=== PATIENT | female | born 1970 | race Caucasian/White ===

== ENCOUNTER 2017-12-15 15:09 | Observation (INO) | payer MEDICARE, MEDICAID, SELFPAY ==
[2017-12-15] VITALS (10 sets, daily range): BP systolic 99–157; BP diastolic 68–105; PULSE 60–100; RESP 12–22; TEMP 36.3–36.9; O2SAT 92–96; BMI 32.8; BMI 34.3
--- NOTE | 2017-12-15 16:09 | RAD_ITS ---
STUDY: X-RAY CHEST REASON FOR EXAM: Female, 47 years old. Cough, dyspnea TECHNIQUE: Frontal and lateral views of the chest. COMPARISON: None. FINDINGS: The lungs are expanded. Basilar atelectasis. No infiltrate. There is no demonstrated pleural abnormality. Normal size heart. Normal mediastinum and shaniqua. Normal visualized pulmonary arteries. Normal visualized aortic arch and descending thoracic aorta. Normal visualized thoracic spine. Normal visualized ribs, clavicles, and shoulders. There is no demonstrated abnormality of the visualized soft tissue structures of the upper abdomen. RAD/Chest PA and Lateral IMPRESSION: Basilar atelectasis. No infiltrate. Electronically Signed: Terry Keane DO at 17:35 EST , Service support ,
--- NOTE | 2017-12-15 16:11 | ED.VISSUMM ---
- ER Visit Summary Date of Service: 12/15/17 Chief Complaint: Cough History of Present Illness: The patient is a 47 F who has a tracheostomy due to larynx cancer. She states that she is 8 year cancer free. Patient is a non-smoker currently. She carries no history of COPD. Patient states for the past week she has had a cough. She was having sputum production but now not. she notes episodes where she mucous plugs and brings up some blood. No fevers. She saw her doctor who sent her to the hospital. Her son has influenza A diagnosed a couple days ago. She notes headache and congestion. She states her mom has similar symptoms that she does. Physical Examination: Afebrile vital signs are stable Gen: Well-nourished well-developed Head: Normocephalic atraumatic Eyes: Perrl EOMI ENT: TMs clear no rhinorrhea moist mucous membranes tracheostomy site is clean dry intact Neck: Supple no lymphadenopathy no JVD nontender CVS: Regular rate rhythm no murmurs normal S1-S2 Respiratory: No distress his lung sounds bilaterally chest nontender Abdomen: Soft nontender nondistended normal bowel sounds no masses Back: Nontender Extremity: Nontender no edema Skin: Normal color no rash Neuro: alert orientated ?3 CN II-XII intact normal strength sensation reflexes gait cerebellar Psych: Normal affect normal mood Test Results: 8. Lactic acid 0.6. She is influenza positive. Chest x-ray showed some atelectatic changes. Emergency Department Course and Treatment: Patient was deep suctioned with significant improvement. She received breathing treatments and Solu-Medrol. Patient does not have the availability at home at the current time to administer aerosols or deep suction. Both of which I think are reasonable to assist in getting her set up for home use. Unfortunately it is late at night on Monday I do not have availability. I do think given the patient's symptoms her chronic disease is reasonable to bring her in overnight. Impression: 1. Influenza A This note was generated with [employer] dictation software. It may contain incorrect words, spelling, and punctuation that were not noted in review of the chart prior to signing ED Disposition - Plan for ED Patient: Disposition: Acute Care [facility] Chief Complaint: Shortness of Breath
[2017-12-15] MEDS: Ipratropium/Albuterol Sulfate 3 ML AMPUL.NEB INHALATION (16:29)
[2017-12-15] MEDS: Albuterol 2.5 MG/3 ML VIAL.NEB. INHALATION ×2 (16:30)
[2017-12-15 16:50] LABS: Absolute Lymphocyte Count 0.71 X10^3/ul (0.83-4.51); Absolute Neutrophil Count 1.7 X10^3/uL (2.0-7.7); Basophil# 0.02 X10^3/uL; Basophil% 0.7 % (0-1); Eosinophil# 0.09 X10^3/uL; Eosinophils% 3.2 % (0-5); Hematocrit 41.9 % (37-47); Hemoglobin 13.9 g/dl (12.0-15.0); Lymphocyte # 0.71 X10^3/ul (4.0); Lymphocyte % 25.2 % (19-41); Mean Corp Hgb Conc 33.2 g/gl (32-36); Mean Corpuscular Hgb 29.9 pg (27.0-32.0); Mean Corpuscular Volume 90.1 fL (81-99); Mean Platelet Vol. 10.2 fl (6.2-12.0); Monocyte# 0.33 X10^3/uL; Monocyte% 11.7 % (0-10); Neutrophil # 1.67 X10^3/uL (2.7-7.7); Neutrophil % 59.2 % (47-70); Platelet Count 172 K/mm3 (150-450); RBC Distribution Width CV 13.7 % (11.6-14.6); RBC Distribution Width SD 45.1 fl (35.1-43.9); Red Blood Count 4.65 M/mm3 (4.2-5.4); White Blood Count 2.8 K/mm3 (4.4-11.0)
[2017-12-15 16:57] LABS: POSITIVE COUNT NO; POSITIVE DIFFERENTIAL NO; POSITIVE MORPHOLOGY NO
--- NOTE | 2017-12-15 16:59 | NURSING ---
BLUE TOP NEEDS REDRAWN. HEMOLIZED
[2017-12-15] MEDS: MethylPREDNISolone 125 MG/2 ML Vial IV (17:02)
[2017-12-15] MEDS: Acetaminophen 500 MG Tablet 1000 MG PO (17:02)
[2017-12-15 17:14] LABS: ALB/GLOB Ratio 0.9 RATIO (0.9-2.4); AST(SGOT) 27 U/L (15-37); Alanine Aminotransfer ALT/SGPT 18 U/L (12-78); Albumin, Serum 3.6 g/dL (3.4-5.0); Alkaline Phosphatase 100 U/L (45-117); Anion Gap 7 (5-15); BUN 17 mg/dL (7-18); BUN/Creat Ratio 20.7 RATIO (10-20); Calcium,Total 8.5 mg/dL (8.5-10.1); Chloride 104 mmol/L (98-107); Creatinine, Serum 0.82 mg/dL (0.55-1.02); EST Glomerular Filtration Rate 79 mL/min (>60); Est Glom Filt Rate - Afr Amer 96 mL/min (>60); Estimated Creatinine Clearance 70.16 ml/min; Globulin 3.9 g/dL (2.2-4.2); Glucose 97 mg/dL (70-110); Potassium 4.1 mmol/L (3.5-5.1); Protein, Total 7.5 g/dL (6.4-8.2); Sodium Level 140 mmol/L (136-145)
[2017-12-15 17:16] LABS: Lactic Acid 0.6 mmol/L (0.4-2.0)
[2017-12-15 18:11] LABS: Partial Thromboplast Time 28.7 Seconds (24.1-36.2); Prothrombin Time (Protime)PT. 12.4 SECONDS (11.7-14.9)
--- NOTE | 2017-12-15 22:36 | PCM.HP.STD ---
Problem List (1) Larynx cancer Status: Acute (2) HTN (hypertension) Status: Chronic (3) Influenza A Status: Acute (4) Hypothyroid Status: Acute History of Present Illness Date of Admission: 12/15/17 Chief Complaint: Influ A pneumonia The patient is a 47 year old female w/ h/o larynx cancer, hypothyroid, and HTN admitted for influenza A. She has been cough for the past few days. The intensity and frequency of her cough have increased. Nothing appeared to make it better or worse. Her cough is productive. She has worsening SOB. Her SOB is severe that it interfere with her ADLs. She went to the ED for further workup. Past Medical History Past Medical History (Chronic Problems): Chronic Problems HTN (hypertension) (Chronic) Allergies latex Allergy (Verified 12/15/17 15:13) BLISTERS Iodinated Contrast- Oral and IV Dye [Iodinated Contrast Media - IV Dye] Adverse Reaction (Verified 12/15/17 15:13) Hives morphine Adverse Reaction (Verified 12/15/17 15:13) Nausea/Vom/Diarrhea Home Medications: Ambulatory Orders Medication Instructions Recorded Esomeprazole Mag Trihydrate 40 mg PO DAILY 10/03/16 [Nexium] Hydrochlorothiazide 12.5 mg PO DAILY 12/15/17 Levothyroxine [Synthroid] 50 mcg PO DAILY 12/15/17 Surgical History: no surgical history Smoking Status: Former smoker Alcohol: None Drugs: None - *Family History Maternal History Items: No pertinent history Review of Systems Constitutional: Reports: Chills. Denies: Fever, Weight Change HEENT: Denies: Head Aches, Sinus Congestion, Sinus Drainage Cardiovascular: Denies: Chest Pain, Palpitations Respiratory: Reports: Cough. Denies: Shortness of breath at rest, Sputum production Gastrointestinal: Denies: Abdominal Pain, Nausea, Vomiting Genitourinary: Denies: Dysuria Musculoskeletal: Denies: Joint Pain, Joint Tenderness Skin: Denies: Rash, Wounds Neurological: Denies: Numbness, Tingling, Focal weakness Psychiatric: Denies: Anxiety, Depression, Homicidal Ideations, Suicidal Ideations Hematologic/ Lymphatic: Denies: Easy Bruising, Easy Bleeding VTE Information - Inpt Only VTE Present on Admission: No VTE Mechan Device Prophylaxis: SCD's VTE Pharm Prophylaxis ordered?: Yes Patient Problems: Active and Suspected Problems Larynx cancer (Acute) Influenza A (Acute) Hypothyroid (Acute) - Physical Exam General: Alert, Oriented x3, Cooperative HEENT: Atraumatic, PERRLA, EOMI, Normocephalic Neck: Supple, No JVD, Negative Carotid Bruits Lungs: Diminished, Rales, Short of Breath Cardiovascular: Regular rate, No murmurs Abdomen: Bowel Sounds Present, Soft, Non Tender Extremities: No edema, Capillary Refill Less than 3 Seconds Skin: No rashes, No breakdown Musculoskeletal: No Tenderness to Palpation of Joints or Extremities Neurological: Cranial nerves II-XII grossly intact Psych/Mental Status: Normal Affect, Appropriate Vital Signs Temp Pulse Resp BP Pulse Ox 97.4 F L 81 18 101/70 92 12/15/17 21:41 12/15/17 21:41 12/15/17 21:41 12/15/17 21:41 12/15/17 21:41 Oxygen Delivery Method Room Air Weight: 87.9 kg Body Mass Index (BMI) 34.3 Assessment/Plan Active and Suspected Problems Larynx cancer (Acute) Influenza A (Acute) Hypothyroid (Acute) 47 year old female w/ h/o larynx cancer, hypothyroid, and HTN admitted for influenza A. 1) Influenza A: Will start tamiflu. Will also cover for CAP. Will start ceftriaxone and azithromycin. Cultures pending. Monitor. 2) H/o larynx cancer: In remission. Monitor. 3) HTN: Resume home meds. Monitor. 4) Prophylaxis: Heparin
[2017-12-15] MEDS: 0.9% Normal Saline 1,000 ML 100 ML IV (22:57)
[2017-12-15] MEDS: Ceftriaxone 1 GM/50 ML BAG IV (22:58)
[2017-12-15] MEDS: Acetaminophen 325 MG Tablet 650 MG PO (23:00)
[2017-12-15] MEDS: guaiFENesin 1,200 MG Tablet 1200 MG PO (23:31)
[2017-12-16] VITALS (9 sets, daily range): BP systolic 121–145; BP diastolic 75–98; PULSE 73–89; RESP 18; TEMP 36.6–36.9; O2SAT 92–99
[2017-12-16 01:42] LABS: Color, Urine Yellow (Yellow); Glucose, Dipstick 50 mg/dl (Normal); Ketone-Dipstick Negative (Negative); Leukocyte Esterase-Dipstick 500 /ul (Negative); Nitrite-Dipstick Negative (Negative); Occult Blood-Urine 10 /ul (Negative); Protein-Dipstick 15 mg/dl (Negative); Urine Bilirubin Dipstick Negative (Negative); Urine Urobilinogen Normal (Normal)
[2017-12-16 01:47] LABS: Urine Clarity Sl. Cloudy (Clear)
[2017-12-16] MEDS: Levothyroxine 50 MCG Tablet PO (05:13)
--- NOTE | 2017-12-16 05:52 | RAD_ITS ---
STUDY: X-RAY CHEST REASON FOR EXAM: Female, 47 years old. Shortness of breath, influenza. TECHNIQUE: PA and lateral views of the chest. COMPARISON: 15 December 2017. FINDINGS: Mild basilar prominent interstitial markings with no new focal airspace disease. There is no demonstrated pleural abnormality. Normal size heart. Normal mediastinum and shaniqua. Normal visualized pulmonary arteries. Normal visualized aortic arch and descending thoracic aorta. Normal visualized thoracic spine. Normal visualized ribs, clavicles, and shoulders. There is no demonstrated abnormality of the visualized soft tissue structures of the upper abdomen. RAD/Chest PA and Lateral IMPRESSION: Unchanged exam with no new focal airspace disease. Electronically Signed: Travis Jacques DO at 7:05 EST , Service support ,
[2017-12-16] MEDS: HYDROCHLOROTHIAZIDE 12.5 MG CAPSULE PO (10:29)
[2017-12-16] MEDS: guaiFENesin 1,200 MG Tablet 1200 MG PO (10:29)
[2017-12-16] MEDS: Pantoprazole Sodium 40 MG Tablet PO (10:29)
[2017-12-16] MEDS: Oseltamivir Phosphate 75 MG Capsule PO (10:30)
--- NOTE | 2017-12-16 10:30 | CASEMGMT ---
Face to Face with patient for initial transition planning/care coordination assessment. DANNI CHOUDHURY introduced self and role at [facility], pt voices understanding and consents to assessment at this time. Pt lying in bed in no distress at this time. Pt A/O x4 at this time and answers all questions appropriately at this time. Care providers, pharmacy, and demographics verified. See attached link. Pt voices no further concerns/needs at this time. Advised pt to ask for CM if any further questions/concerns/needs arise, voices understanding. PLAN: Home [place] DANNI CHOUDHURY
[2017-12-16] MEDS: Acetaminophen 325 MG Tablet 650 MG PO (10:33)
[2017-12-16] MEDS: 0.9% Normal Saline 1,000 ML 100 ML IV (10:33)
[2017-12-16] MEDS: Ipratropium/Albuterol Sulfate 3 ML AMPUL.NEB INHALATION (10:56)
--- NOTE | 2017-12-16 12:22 | DCINST_ITS ---
- Discharge Diagnoses Current Active Problems: Current Active and Chronic Problems Larynx cancer (Acute) HTN (hypertension) (Chronic) Influenza A (Acute) Hypothyroid (Acute) You will use the following diet at home:: No restrictions Your food should be the consistency of: Regular Your liquids should be the consistency of: Regular/Thin Discharge Activity: Return to Normal Activity Weight Bearing Status: Full weight bearing Allergies/Adverse Reactions: Allergies latex Allergy (Verified 12/15/17 15:13) BLISTERS Iodinated Contrast- Oral and IV Dye [Iodinated Contrast Media - IV Dye] Adverse Reaction (Verified 12/15/17 15:13) Hives morphine Adverse Reaction (Verified 12/15/17 15:13) Nausea/Vom/Diarrhea Medications to take at Discharge Esomeprazole Mag Trihydrate [Nexium] 40 mg PO DAILY 10/03/16 Hydrochlorothiazide 12.5 mg PO DAILY 12/15/17 Levothyroxine [Synthroid] 50 mcg PO DAILY 12/15/17 Albuterol IH (ProAir) [Proair Hfa (SP)Vent Pts] 2 puff INHALATION Q6H PRN PRN # 1 inhaler 12/16/17 Guaifenesin [Mucinex] 1,200 mg PO BID #20 tab 12/16/17 Levofloxacin [Levaquin] 750 mg PO DAILY #5 tab 12/16/17 Oseltamivir Phosphate [Tamiflu] 75 mg PO BID #10 cap 12/16/17 The following prescriptions were given: Albuterol IH (ProAir) [Proair Hfa (SP)Vent Pts] 2 puff INHALATION Q6H PRN PRN # 1 inhaler PRN Reason: Dyspnea Levofloxacin [Levaquin] 750 mg PO DAILY #5 tab Guaifenesin [Mucinex] 1,200 mg PO BID #20 tab Oseltamivir Phosphate [Tamiflu] 75 mg PO BID #10 cap Primary Care Physician: Care Physician,No Primary [Primary Care Provider] - Please follow up with your Primary Care Physician in: in 2-3 weeks
--- NOTE | 2017-12-16 12:25 | CASEMGMT ---
This RN CM to room. Code 44 completed, SONIA explained, voices understanding and signed at this time. Original to chart, copy to pt at this time. Pt voices no further questions/concerns at this time. Pt states would like [facility] for home suction machine. Script faxed to [employer] at this time along with facesheet. This RN CM placed call to [facility] answering service and per Chad, line haul driver, he is inquiring on equipmenet and will be delivering home oxygen to another pt and will notify floor on suction set up. Farzad MS3 rn charge, aware at this time. Script left at desk for [employer] line haul driver at this time. [place] DANNI CHOUDHURY
--- NOTE | 2017-12-17 08:47 | PCM.DC.SUM ---
Discharge Date and Diagnosis Date of Admission: 12/15/17 Date of Discharge: 12/16/17 - Primary Discharge Diagnosis #1 acute influenza A #2 hypothyroidism #3 GERD - Secondary Discharge Diagnosis Chronic Problems HTN (hypertension) (Chronic) Hospital Course and Treatment Operations: None Procedures: None Summary of Care Provided: The patient is a 47 year old F who was seen in the emergency room at [facility] with a chief complaint of cough. Patient went to the primary care doctor who sent her to the emergency room for evaluation. Patient's son had been diagnosed with influenza A a few days prior. Workup in the emergency room included labs which were unremarkable except for a positive influenza A panel. Chest x-ray showed some atelectasis. Patient underwent suctioning in the emergency room with significant improvement, emergency room doctor felt patient would benefit from home suction which the patient did not have and requested the hospitalist service placed the patient and observation status for aerosol treatments and set up for home suction. On 12/16/17, patient was seen and examined by myself, her lungs appeared clear to auscultation and she was able to bring up sputum without difficulty. She requested a suction device be set up at home just in case she needed it, I agreed with this and I felt that this did not have to be set up prior to her being discharged from the hospital. On 12/16/17, patient was discharged from the hospital in stable condition, she was given a prescription for Levaquin and told not to fill this prescription unless she started running a temp over 100.5 or had yellow or green sputum production. Discharge Activity: Return to Normal Activity Weight Bearing Status: Full weight bearing Home Medications: Medications to take at Discharge Esomeprazole Mag Trihydrate [Nexium] 40 mg PO DAILY 10/03/16 Hydrochlorothiazide 12.5 mg PO DAILY 12/15/17 Levothyroxine [Synthroid] 50 mcg PO DAILY 12/15/17 Albuterol IH (ProAir) [Proair Hfa (SP)Vent Pts] 2 puff INHALATION Q6H PRN PRN #1 inhaler 12/16/17 Guaifenesin [Mucinex] 1,200 mg PO BID #20 tab 12/16/17 Levofloxacin [Levaquin] 750 mg PO DAILY #5 tab 12/16/17 Oseltamivir Phosphate [Tamiflu] 75 mg PO BID #10 cap 12/16/17 Following Prescrptions Were Given to Patient: Albuterol IH (ProAir) [Proair Hfa (SP)Vent Pts] 2 puff INHALATION Q6H PRN PRN #1 inhaler PRN Reason: Dyspnea Levofloxacin [Levaquin] 750 mg PO DAILY #5 tab Guaifenesin [Mucinex] 1,200 mg PO BID #20 tab Oseltamivir Phosphate [Tamiflu] 75 mg PO BID #10 cap Primary Care Physician: Care Physician,No Primary [Primary Care Provider] - Please follow up with your Primary Care Physician in: in 2-3 weeks Disposition: Home Minutes spent on discharge:: 25 Patient Condition:: Stable Meaningful Use Info Meaningful Use Diagnoses (Choose all that apply): None applicable Code Visit OBSV E&M: 98617 Observation care discharge
--- NOTE | 2017-12-17 08:52 | DS.PCM_ITS ---
Discharge Date and Diagnosis Date of Admission: 12/15/17 Date of Discharge: 12/16/17 - Primary Discharge Diagnosis #1 acute influenza A #2 hypothyroidism #3 GERD - Secondary Discharge Diagnosis Chronic Problems HTN (hypertension) (Chronic) Hospital Course and Treatment Operations: None Procedures: None Summary of Care Provided: The patient is a 47 year old F who was seen in the emergency room at [facility] with a chief complaint of cough. Patient went to the primary care doctor who sent her to the emergency room for evaluation. Patient' s son had been diagnosed with influenza A a few days prior. Workup in the emergency room included labs which were unremarkable except for a positive influenza A panel. Chest x-ray showed some atelectasis. Patient underwent suctioning in the emergency room with significant improvement, emergency room doctor felt patient would benefit from home suction which the patient did not have and requested the hospitalist service placed the patient and observation status for aerosol treatments and set up for home suction. On 12/16/17, patient was seen and examined by myself, her lungs appeared clear to auscultation and she was able to bring up sputum without difficulty. She requested a suction device be set up at home just in case she needed it, I agreed with this and I felt that this did not have to be set up prior to her being discharged from the hospital. On 12/16/17, patient was discharged from the hospital in stable condition, she was given a prescription for Levaquin and told not to fill this prescription unless she started running a temp over 100.5 or had yellow or green sputum production. Discharge Activity: Return to Normal Activity Weight Bearing Status: Full weight bearing Home Medications: Medications to take at Discharge Esomeprazole Mag Trihydrate [Nexium] 40 mg PO DAILY 10/03/16 Hydrochlorothiazide 12.5 mg PO DAILY 12/15/17 Levothyroxine [Synthroid] 50 mcg PO DAILY 12/15/17 Albuterol IH (ProAir) [Proair Hfa (SP)Vent Pts] 2 puff INHALATION Q6H PRN PRN # 1 inhaler 12/16/17 Guaifenesin [Mucinex] 1,200 mg PO BID #20 tab 12/16/17 Levofloxacin [Levaquin] 750 mg PO DAILY #5 tab 12/16/17 Oseltamivir Phosphate [Tamiflu] 75 mg PO BID #10 cap 12/16/17 Following Prescrptions Were Given to Patient: Albuterol IH (ProAir) [Proair Hfa (SP)Vent Pts] 2 puff INHALATION Q6H PRN PRN # 1 inhaler PRN Reason: Dyspnea Levofloxacin [Levaquin] 750 mg PO DAILY #5 tab Guaifenesin [Mucinex] 1,200 mg PO BID #20 tab Oseltamivir Phosphate [Tamiflu] 75 mg PO BID #10 cap Primary Care Physician: Care Physician,No Primary [Primary Care Provider] - Please follow up with your Primary Care Physician in: in 2-3 weeks Disposition: Home Minutes spent on discharge:: 25 Patient Condition:: Stable Meaningful Use Info Meaningful Use Diagnoses (Choose all that apply): None applicable Code Visit OBSV E&M: 20856 Observation care discharge
== END 2017-12-16 15:46 | disposition home or self-care (01) ==
LOC: ED 19:13 → MS3 20:12
PROVIDERS: Internal Medicine; Admitting Provider Internal Medicine; Emergency Provider Emergency Medicine; Visit Provider Internal Medicine
DX: J10.1 Influenza due to other identified influenza virus with other respiratory manifestations (principal); E03.9 Hypothyroidism, unspecified; K21.9 Gastro-esophageal reflux disease without esophagitis; I10 Essential (primary) hypertension; Z79.899 Other long term (current) drug therapy; Z85.21 Personal history of malignant neoplasm of larynx; Z87.891 Personal history of nicotine dependence; Z93.0 Tracheostomy status; R51 Headache; J98.11 Atelectasis; R06.00 Dyspnea, unspecified
CPT/HCPCS: 31720; 36415; 71046; 80053; 81002; 83605; 85025; 85610; 85730; 87040; 87070; 87077; 87186; 87205; 87449; 87804; 94640; 94667; 96361; 96365; 96372; 96375; 97802; 99218; 99284; J7030; A4216; G0378

== ENCOUNTER → 2018-11-29 16:05 | Outpatient (CLI) | payer MEDICARE, MEDICAID, SELFPAY ==
[2017-12-15 21:33] VITALS: BMI 34.3
--- NOTE | 2018-11-29 16:15 | RAD_ITS ---
HISTORY: increased shortness of breath, cough, patient has tracheostomy EXAM:XR Chest 2 Views: COMPARISON: None FINDINGS: No significant change. Normal heart size. Upper lobe mild emphysema. No vascular congestion, pleural effusion, or acute pulmonary infiltration. No pneumothorax. The bony thorax appears intact. RAD/Chest PA and Lateral IMPRESSION: 1. No acute disease or significant change. 2. Chronic lung disease with mild emphysema. at 0739 Reported and signed by: Roger Belcher MD Electronically Signed: Roger Belcher, at 7:37 EST Tel , Service support ,
== END ==
DX: R05 Cough (principal)
CPT/HCPCS: 71046

== ENCOUNTER → 2019-08-20 13:32 | Outpatient (CLI) | payer MEDICARE, MEDICAID, SELFPAY ==
[2017-12-15 21:33] VITALS: BMI 34.3
--- NOTE | 2019-08-20 13:42 | CT_ITS ---
STUDY: CT SOFT TISSUE NECK WITHOUT CONTRAST REASON FOR EXAM: Female, 49 years old. Right-sided neck swelling status post laryngectomy with chemoradiation RADIATION DOSAGE (If Supplied By Facility): CTDIvol = ( 13.8 ) mGy, DLP = ( 418.83 ) mGycm TECHNIQUE: The patient was scanned in a multi-detector CT scanner. High resolution transaxial imaging was performed without the administration of intravenous contrast material. Sagittal and coronal images were reconstructed. Individualized dose optimization techniques were used for this CT. COMPARISON: None. FINDINGS: Normal bilateral parotid glands. 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 Normal bilateral parapharyngeal spaces. Normal bilateral carotid spaces. Normal bilateral sublingual and submandibular glands and spaces. Normal visualized nasopharynx. Normal retropharyngeal space. Normal perivertebral space. Normal visualized bilateral faucial tonsils. The visualized tongue, tongue base and oropharynx are normal. The visualized cervical lymph nodes (levels I-) are within normal size limits, and maintain normal morphology. There is no demonstrated solid or cystic mass lesion. Normal epiglottis, bilateral vallecula and hypopharynx. The pre-epiglottic and paraglottic adipose spaces are normal. Postsurgical changes status post laryngectomy and lymph node resection.. There is no well-defined mass lesion however there is prominent fat at the surgical site producing extrinsic compression upon the airway on the right displacing it posteriorly and to the left suggesting focal lipoma. No other soft tissue mass identified. Normal bilateral lobes of the thyroid gland. Chronic interstitial changes in the pulmonary apices Status post tracheostomy. Normal visualized paranasal sinuses. Cervical spine demonstrates spondylosis. CT/Soft Tissue Neck without Contr IMPRESSION: Postsurgical changes status post laryngectomy and lymph node resection.. 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 No other soft tissue mass observed. Tracheostomy noted in situ Electronically Signed: Sekou Cohen MD at 18:23 EDT , Service support ,
== END ==
PROVIDERS: Referring Provider Otolaryngology; Visit Provider Otolaryngology
DX: R22.1 Localized swelling, mass and lump, neck (principal); Z93.0 Tracheostomy status
CPT/HCPCS: 70490

== ENCOUNTER → 2019-09-11 10:48 | Outpatient (CLI) | payer MEDICARE, MEDICAID, SELFPAY ==
[2019-09-09 12:56] VITALS: BMI 40.2
[2019-09-11 11:00] VITALS: PULSE 101; PULSE 104; PULSE 105; PULSE 108; PULSE 109; PULSE 114; PULSE 94; PULSE 95; O2SAT 93; O2SAT 95; O2SAT 96; O2SAT 98
--- NOTE | 2019-09-11 11:32 | CPS ---
Patient wanted BP taken after 6 min walk. Patient's BP was 160/90.
--- NOTE | 2019-09-12 10:21 | PCM.PSN.6M ---
PSN 6 Minute Walk Test - 6 Minute Walk Test 6 Minute Walk Test: 6 Minute Walk Test PSN:6-Minute Walk Test Start: 09/11/19 11:26 Freq: Status: Active Protocol: RESP.6MINW Document 09/11/19 11:00 DESTIN (Rec: 09/11/19 11:32 JLA [id number]) 6 Minute Walk Test Date Performed 09/11/19 Time Performed 11:00 Height 5 ft 3 in Weight: 225 lb Weight in Pounds [address]: Raheem Dillon Assistive device used: None Pre-test Oxygen Delivery Method Room Air Pulse Ox (%) 95 Pulse Rate (60-100 beats/min) 95 Dyspnea Adelaide Scale (0-10) 3 Exertion Adelaide Scale (6-20) 6 1st minute Oxygen Delivery Method Room Air Pulse Ox (%) 98 Pulse Rate (60-100 beats/min) 109 H 2nd minute Oxygen Delivery Method Room Air Pulse Ox (%) 96 Pulse Rate (60-100 beats/min) 105 H 3rd minute Oxygen Delivery Method Room Air Pulse Ox (%) 96 Pulse Rate (60-100 beats/min) 101 H Number of Rests Taken 1 4th minute Oxygen Delivery Method Room Air Pulse Ox (%) 93 Pulse Rate (60-100 beats/min) 108 H 5th minute Oxygen Delivery Method Room Air Pulse Ox (%) 93 Pulse Rate (60-100 beats/min) 104 H 6th minute Oxygen Delivery Method Room Air Pulse Ox (%) 93 Pulse Rate (60-100 beats/min) 114 H Dyspnea Adelaide Scale (0-10) 5 Exertion Adelaide Scale (6-20) 11 Post-test Oxygen Delivery Method Room Air Pulse Ox (%) 95 Pulse Rate (60-100 beats/min) 94 Full Laps Walked 14 Partial Lap, Number of Tiles Walked 0 Total Distance Walked (ft) 826 - Interpretation Interpretation: The patient ambulated 826 feet over the course of 6 minutes beginning on room air without assistive devices or breaks. Pretesting oxygen saturation was noted to be 95% on room air. With ambulation, the lilian oxygen saturation was 93%. There was no significant exertional oxygen desaturation. - Recommendations Recommendations: There is no indication for the use of supplemental oxygen at this time.
== END ==
PROVIDERS: Referring Provider Internal Medicine Critical Care Medicine; Visit Provider Internal Medicine Critical Care Medicine
DX: R06.09 Other forms of dyspnea (principal)
CPT/HCPCS: 94618

== ENCOUNTER → 2019-09-23 14:01 | Outpatient (CLI) | payer MEDICARE, MEDICAID, SELFPAY ==
[2019-09-09 12:56] VITALS: BMI 40.2
--- NOTE | 2019-09-23 14:02 | ECHOCS_ITS ---
Reason For Study: DYSPNEA Procedure This was a 2D Doppler, Color Flow transthoracic echocardiogram. Myocardial strain analysis was performed in this exam to aid in the assessment of cardiac function. The study was technically difficult. Limited views were obtained. Exam performed in department. Left Ventricle Normal LV size. Left ventricular systolic function is normal. The estimated ejection fraction is 65 %. No regional wall motion abnormalities noted. Right Ventricle Normal RV size. Normal systolic function. Atria Normal left atrium. Normal right atrium. Mitral Valve Normal mitral valve. Tricuspid Valve Normal tricuspid valve. Mild tricuspid valve insufficiency. Pulmonary artery systolic pressure is 26 mmHg. Aortic Valve Normal aortic valve. Pulmonic Valve Normal pulmonic valve. Great Vessels Normal aortic root. The pulmonary artery is normal size. Normal inferior vena cava. Pericardium/Pleural No pericardial effusion. Medication 22 gauge I.V. with prn adaptor inserted into right arm. Definity3.0ml given slow IV push to enhance endocardial definition. MMode/2D Measurements & Calculations LVIDd: 4.3 cm IVSd: 0.87 cm Ao root diam: 3.2 cm LVIDs: 3.0 cm LVPWd: 1.0 cm RVDd: 2.8 cm FS: 29.6 % LAV(MOD-bp): 37.4 ml LVAd ap4: 35.4 cm2 SV(MOD-sp4): 72.0 ml LAV(MOD-bp) Indexed: 18.4 ml/m2 EDV(MOD-sp4): 124.0 ml LAV(MOD-sp2): 30.7 ml EDV(sp4-el): 133.6 ml LAV(MOD-sp4): 40.8 ml LVAs ap4: 20.0 cm2 ESV(MOD-sp4): 52.0 ml ESV(sp4-el): 52.4 ml EF(MOD-sp4): 58.1 % EF(sp4-el): 60.8 % SV(sp4-el): 81.2 ml LA A4 area: 16.5 cm2 LA dimension(2D): 3.6 cm RA A4 area: 13.1 cm2 Time Measurements MV dec time: 0.23 sec Doppler Measurements & Calculations MV E max sunday: 60.5 cm/sec Lat Peak E' Sunday: 6.9 cm/sec Med Peak E' Sunday: 7.4 cm/sec MV A max sunday: 88.0 cm/sec E/E' lat: 8.8 E/E' med: 8.1 MV E/A: 0.69 Ao V2 max: 133.5 cm/sec LV V1 max: 111.9 cm/sec TR max sunday: 236.3 cm/sec Ao max P.1 mmHg LV V1 max P.0 mmHg TR max P.4 mmHg Interpretation Summary Normal LV size. Left ventricular systolic function is normal. The estimated ejection fraction is 65 %. Mild tricuspid valve insufficiency. Contrast injection was performed. Ordering Physician: Raheem Dillon Referring Physician: JUSTYNA ALANIZ Performed By: Emily Zaidi, HARESH, RVT
== END ==
PROVIDERS: Referring Provider Internal Medicine Critical Care Medicine; Visit Provider Internal Medicine Critical Care Medicine
DX: R06.09 Other forms of dyspnea (principal); R06.02 Shortness of breath
CPT/HCPCS: 93306; Q9957; A4216; C8929

== ENCOUNTER 2019-09-29 11:30 | Emergency (ER) | payer MEDICARE, MEDICAID, SELFPAY ==
[2019-09-09 12:56] VITALS: BMI 40.2
[2019-09-29 11:31] VITALS: BP 196/114; PULSE 116; RESP 16; TEMP 36.8; O2SAT 98; BMI 38.9
[2019-09-29 11:44] VITALS: PULSE 116; TEMP 36.8
--- NOTE | 2019-09-29 12:08 | ED.VISSUMM ---
- ER Visit Summary Date of Service: 09/29/19 Chief Complaint: Concern for infection History of Present Illness: The patient is a 49 F who has a trach due to prior history of larynx cancer. She is due to have a revision of the trach site by Dr. Muhammad in 8 days. She has been monitoring her site and notes that today there is increased erythema around it and she is concerned for infection. She denies any fevers. No chills. No drainage from the site. She has not changed brands of her trach. She has not been cleaning the wound with anything differently. Physical Examination: Afebrile vital signs stable The trach site shows some mild erythema around it. There is no significant swelling or exudate. No significant lymphadenopathy. Test Results: CBC was obtained. This was normal Emergency Department Course and Treatment: Patient will be started on Keflex. She has an appointment in [address] Pantoja. Impression: 1. Neck cellulitis This note was generated with [employer] dictation software. It may contain incorrect words, spelling, and punctuation that were not noted in review of the chart prior to signing ED Disposition - Plan for ED Patient: Disposition: Home or Assisted Living Instructions: Cellulitis Prescriptions: Cephalexin [Keflex] 500 mg PO 4X/DAY #28 cap Prescription Printed Referrals: Jeremi Pantoja MD [STAFF PHYSICIAN] - Keep Epi appointment
[2019-09-29 12:28] LABS: Absolute Lymphocyte Count 1.01 X10^3/uL (0.83-4.51); Absolute Neutrophil Count 5.5 X10^3/uL (2.0-7.7); Basophil# 0.05 X10^3/uL; Basophil% 0.7 % (0-1); Eosinophil# 0.28 X10^3/uL; Eosinophils% 3.8 % (0-5); Hematocrit 41.8 % (37-47); Hemoglobin 13.4 g/dL (12.0-15.0); Lymphocyte # 1.01 X10^3/ul (4.0); Lymphocyte % 13.8 % (19-41); Mean Corp Hgb Conc 32.1 g/dL (32-36); Mean Corpuscular Hgb 30.2 pg (27.0-32.0); Mean Corpuscular Volume 94.4 fL (81-99); Mean Platelet Vol. 9.8 fl (6.2-12.0); Monocyte# 0.42 X10^3/uL; Monocyte% 5.7 % (0-10); NRBC Flagged by Analyzer 0 % (0-5); Neutrophil # 5.52 X10^3/uL (2.7-7.7); Neutrophil % 75.5 % (47-70); Platelet Count 207 K/mm3 (150-450); RBC Distribution Width CV 12.7 % (11.6-14.6); RBC Distribution Width SD 43.8 fl (35.1-43.9); Red Blood Count 4.43 M/mm3 (4.2-5.4); White Blood Count 7.3 K/mm3 (4.4-11.0)
[2019-09-29] MEDS: HYDROcodone Bitartrate/Apap 5/325 Tablet PO (12:57)
[2019-09-29] MEDS: Cephalexin 250 MG Capsule 500 MG PO (12:58)
[2019-09-29 13:36] VITALS: BP 96/70; PULSE 84; RESP 18; O2SAT 97
== END 2019-09-29 13:43 | disposition home or self-care (01) ==
PROVIDERS: Emergency Provider Emergency Medicine
DX: L03.221 Cellulitis of neck (principal); I10 Essential (primary) hypertension; K21.9 Gastro-esophageal reflux disease without esophagitis; Z79.899 Other long term (current) drug therapy; Z85.21 Personal history of malignant neoplasm of larynx; Z87.891 Personal history of nicotine dependence
CPT/HCPCS: 85025; 99283

== ENCOUNTER → 2019-12-05 10:17 | Outpatient (CLI) | payer MEDICARE, MEDICAID, SELFPAY | PROVIDERS: Referring Provider Otolaryngology; Visit Provider Otolaryngology | DX: E07.9 Disorder of thyroid, unspecified (principal); Z53.9 Procedure and treatment not carried out, unspecified reason; R22.1 Localized swelling, mass and lump, neck; J95.03 Malfunction of tracheostomy stoma ==

== ENCOUNTER 2021-10-04 14:25 | Inpatient (IN) | payer MEDICARE, MEDICAID, SELFPAY ==
[2021-10-04] VITALS (7 sets, daily range): BP systolic 125–155; BP diastolic 76–92; PULSE 90–102; RESP 16–18; TEMP 36.1–36.9; O2SAT 93–100; BMI 43.0
--- NOTE | 2021-10-04 15:03 | EDS_ITS ---
HPI History of Present Illness Chief Complaint: Substance Abuse Narrative Narrative: 51-year-old female presenting with desire to be hospitalized for alcohol detox. Patient states that for the last 3 months or so she has been drinking a bottle or 2 of whiskey per day. She states she has been able to stop for 3 to 4 days at a time but then drinks again. She states she has not had any symptoms of withdrawal in the past. She did speak with [facility] who recommended that she come to the hospital for inpatient detox before they take over. She states she has no other symptoms at this time. She denies other drug use. Last use of alcohol was last night. [facility] Medical History (Updated 10/04/21 @ 15:[address] Rodrigo Newsome MD) HTN (hypertension) Hypothyroid Influenza A Larynx cancer Home Medications albuterol sulfate 2 puff INHALATION Q6H PRN PRN #1 inhaler 12/16/17 [Rx Last Taken 10/04/21] ipratropium 0.5 mg-albuterol 3 mg (2.5 mg base)/3 mL nebulization soln 3 ml INHALATION Q6H PRN ml 09/09/19 [History Last Taken Unknown] omeprazole 40 mg capsule,delayed release 40 mg PO DAILY 09/09/19 [History Last Taken 10/04/21] atorvastatin 10 mg PO QHS 01/11/21 [History Last Taken 10/03/21] sertraline 50 mg PO DAILY 01/11/21 [History Last Taken 10/01/21] amlodipine 10 mg PO DAILY 10/04/21 [History Last Taken 10/04/21] levothyroxine 112 mcg PO DAILY 10/04/21 [History Last Taken 10/04/21] liothyronine 5 mcg PO BID 10/04/21 [History Last Taken 10/04/21] losartan-hydrochlorothiazide 1 tab PO DAILY 10/04/21 [History Last Taken 10/04/21] Allergy/AdvReac Type Severity Reaction Status Date / Time latex Allergy BLISTERS Verified 10/04/21 14:28 Iodinated Contrast Media AdvReac Hives Verified 10/04/21 14:28 [Iodinated Contrast Media - IV Dye] morphine AdvReac Nausea/Vom/ Verified 10/04/21 14:28 Diarrhea Family History Mother CVA (cerebral vascular accident) Heart disease Hypertension Sister Cancer Surgical History History of laryngectomy Social History Smoking Status: Former smoker ROS ROS ED Constitutional Constitutional ED: Denies chills or fever(s) Eyes Eyes: Denies blurry vision or change in vision ENT ENT ED: Denies ear pain or rhinorrhea Cardiovascular Cardiovascular: Denies chest pain or palpitations Respiratory/Chest Respiratory/Chest: Denies cough or dyspnea Gastrointestinal Gastrointestinal: Denies abdominal pain, nausea or vomiting Genitourinary Genitourinary ED: Denies dysuria or urinary frequency Musculoskeletal Musculoskeletal: Denies arthralgias or myalgias Integumentary Denies abscess or rash Neurologic Neurologic: Denies headache(s) or paresthesias EXAM Physical Exam Const Vital Signs: 10/04/21 14:26 10/04/21 14:50 Temperature 96.9 F L Temperature Source Temporal Pulse Rate 101 H 96 Respiratory Rate 16 Blood Pressure 155/92 H Blood Pressure Mean 113 Pulse Ox 95 95 Oxygen Delivery Method Room Air Room Air Positive obese General Appearance ED: NAD; Negative for pallor Nutritional Appearance: obese HEENT Reports moist mucous membranes atraumatic Eyes PERRL and EOMs intact bilaterally Neck Neck Narrative: Tracheostomy Resp normal respiratory effort and clear to auscultation bilaterally Cardio regular rate and regular rhythm GI soft to palpation and non-tender Neuro oriented x3 Sensorium / Orientation: alert Psych mental status grossly normal and thought process normal Skin General Skin Exam: Negative for jaundice or pallor MDM MDM MDM Narrative Medical decision making narrative: Patient presenting for detox from alcohol she has been drinking a lot of whiskey for the last 3 months and estimates this to be 1 to 2 L a day. Patient is completely asymptomatic currently. I discussed this with the hospitalist that she had been 3 to 4 days previously without symptoms. He recommended admission and then he can transfer her to [facility] after being inpatient. Patient was admitted. Lab work will be followed on the floor. Impression: 1. EtOH abuse Discharge Plan Disposition Disposition: Acute Care Hospital [facility] Discharge Date/Time: 10/04/21 17:08
--- NOTE | 2021-10-04 15:26 | PCM.HP.STD ---
HPI - General General Date of Admission: 10/04/21 HPI Narrative VJ MYESR, is a 51 F with history of chronic alcohol use was sent to ED by [facility] for alcohol detox and medical stabilization. She has been drinking heavy alcohol about half bottle of whiskey for last 3 months. She further says he never had withdrawal symptoms including tremors, shaking seizure, hallucinations when she is a stayed off alcohol for 12 to 24 hours. She started drinking as a recreation in teenage occasionally in constitution party but she started drinking heavily for last 3 months. She has history of laryngeal cancer status post tracheostomy. She had surgery and then chemoradiation and is in remission. She takes regular diet. She denies history of chronic heart disease or lung disease. She quit smoking in the past. Patient heart rate is controlled in ED. Labs are ordered. [facility] Medical History (Updated 10/04/21 @ 15:[address] Rodrigo Newsome MD) HTN (hypertension) Hypothyroid Influenza A Larynx cancer Home Medications albuterol sulfate 2 puff INHALATION Q6H PRN PRN #1 inhaler 12/16/17 [Rx Last Taken 10/04/21] ipratropium 0.5 mg-albuterol 3 mg (2.5 mg base)/3 mL nebulization soln 3 ml INHALATION Q6H PRN ml 09/09/19 [History Last Taken Unknown] omeprazole 40 mg capsule,delayed release 40 mg PO DAILY 09/09/19 [History Last Taken 10/04/21] atorvastatin 10 mg PO QHS 01/11/21 [History Last Taken 10/03/21] sertraline 50 mg PO DAILY 01/11/21 [History Last Taken 10/01/21] amlodipine 10 mg PO DAILY 10/04/21 [History Last Taken 10/04/21] levothyroxine 112 mcg PO DAILY 10/04/21 [History Last Taken 10/04/21] liothyronine 5 mcg PO BID 10/04/21 [History Last Taken 10/04/21] losartan-hydrochlorothiazide 1 tab PO DAILY 10/04/21 [History Last Taken 10/04/21] Allergy/AdvReac Type Severity Reaction Status Date / Time latex Allergy BLISTERS Verified 10/04/21 14:28 Iodinated Contrast Media AdvReac Hives Verified 10/04/21 14:28 [Iodinated Contrast Media - IV Dye] morphine AdvReac Nausea/Vom/ Verified 10/04/21 14:28 Diarrhea Family History Mother CVA (cerebral vascular accident) Heart disease Hypertension Sister Cancer Surgical History History of laryngectomy Social History Smoking Status: Former smoker ROS ROS Narrative Constitutional: Normal state of mind. HEENT: Tracheostomy.low pitched voice due to tracheostomy. Respiratory/Chest: Denies chest pain, shortness of breath at rest or with exertion Gastrointestinal: Denies coffee ground emesis, hematemesis or vomiting Genitourinary: Denies burning urination or new urinary tract symptoms Musculoskeletal: Reports joint pain and limited range of motion Neurologic: Denies seizure-like activity skin: Scar in the left forearm from where skin was taken for throat reconstruction. Endocrinology: Hypothyroidism. Reports systems reviewed and no addt'l complaints, except as documented Hematologic/Lymphatic: Reports systems reviewed and no addt'l complaints, except as documented Rest 12 ROS are negative except as mentioned in HPI Vital Signs Vital Signs Vital Signs: 10/04/21 14:26 10/04/21 14:50 Temperature 96.9 F L Temperature Source Temporal Pulse Rate 101 H 96 Respiratory Rate 16 Blood Pressure 155/92 H Blood Pressure Mean 113 Pulse Ox 95 95 Oxygen Delivery Method Room Air Room Air Weight Weight: 235 lb 4.8 oz Body Mass Index (BMI) 43.0 Physical Exam Narrative General: Alert, Oriented x3, Cooperative HEENT: Tracheostomy. Low pitched voice. Atraumatic, PERRLA, EOMI, Normocephalic Oral: Oral mucosa moist. No Gingival or Mucosal Lesions/ Ulcerations Neck: Supple, No JVD, Negative Carotid Bruits Lungs: Air entry equal in bilateral lung bases. No crepitation/rhonchi Cardiovascular: Regular rate, Regular Rhythm, Normal S1, Normal S2, No murmurs Abdomen: Bowel Sounds Present, Soft, Non Tender, Non-Distended : No renal angle tenderness. No suprapubic tenderness. Extremities: No edema, Capillary Refill Less than 3 Seconds Skin: Scarring left forearm. Musculoskeletal: No Tenderness to Palpation of Joints or Extremities Neurological: Cranial nerves II-XII grossly intact, DTR 2+/4 and Symmetrical, Neuro grossly intact Psych/Mental Status: Normal Affect, Appropriate. Results Lab / Micro Data Result Diagrams: 10/04/21 15:55 10/04/21 15:55 Assessment & Plan Assessment/Plan (1) Alcohol use disorder: PLAN: 1. Chronic alcohol use, dependence and tolerance with high probability of acute alcohol withdrawal syndrome: Patient is being admitted to the floor. Nursing CIWA and COWS score monitoring. Patient is started on phenobarbital as per CIWA score along with other adjunctive medications. Patient on thiamine and folic acid. On PPI. She denies history of chronic alcoholic liver disease stigmata like variceal bleed, ascites or hepatic encephalopathy. Remarkable labs are elevated BUN/creatinine 31/1.42. Mild hyponatremia probably hypotonic hypovolemic hyponatremia. IV fluid normal saline 100/h for 2 L then reevaluate. 2. Laryngeal cancer status post resection and reconstruction chemoradiation: Patient is in remission. 3. Hypothyroidism: Patient on levothyroxine and liothyronine at home. TSH tomorrow a.m. 4. Hypertension: On losartan and hydrochlorothiazide. Blood pressure is controlled. VTE prophylaxis: Moderate risk. On heparin 5 continue subcutaneous twice daily. Discontinue if platelet count drops less than 50,000 or hemoglobin less than 8 g% Living will/advanced directive/end of life care: Discussed with the patient and her mother near the bedside. Patient does have living will or advanced directive. Her mother said that she has living will at home which he states DNRCC but patient wants to change it to full code. Patient has decision-making capacity and is alert and oriented x3. After discussion of benefits/risks procedures involved with full code, DNR CC arrest and DNR CC, the patient opted for full code. Patient does want artificial life support including intubation, tube feed, ventilator and/chest compression, central venous catheter, vasopressor and DC shock if needed Total time spent in [id number] encounter in discussion of advanced directive 16 minutes. Laboratory Results 10/04/21 15:55: WBC 9.2, RBC 4.15 L, Hgb 12.6, Hct 38.1, MCV 91.8, MCH 30.4, MCHC 33.1, RDW Std Deviation 45.0 H, RDW Coeff of Rosa 13.3, Plt Count 256, MPV 9.3, Immature Gran % (Auto) 0.700, Neut % (Auto) 78.7 H, Lymph % (Auto) 12.1 L, [place] % (Auto) 5.7, Eos % (Auto) 2.3, Baso % (Auto) 0.5, Absolute Neuts (auto) 7.2, Absolute Lymphs (auto) 1.11, Nucleated RBC % 0 10/04/21 15:55: Sodium 135 L, Potassium 3.9, Chloride 100, Carbon Dioxide 26.0, Anion Gap 9, BUN 31 H, Creatinine 1.42 H, Estim Creat Clear Calc 37.07, Est GFR (MDRD) Af Amer 50 L, Est GFR (MDRD) Non-Af 41 L, BUN/Creatinine Ratio 21.8 H, Glucose 88, Calcium 8.8, Total Bilirubin 0.40, AST 16, ALT 13, Alkaline Phosphatase 111, Total Protein 7.8, Albumin 3.5, Globulin 4.3 H, Albumin/Globulin Ratio 0.8 L 10/04/21 15:55: Ethyl Alcohol Pending 10/04/21 15:55: PT 13.2, INR 1.1 Charges/Coding Visit Charges Inpatient E&M: 16151 Init Hosp L3 Procedures Hospitalists Procedures: 16996 Advncd Care Plan 30 Min
[2021-10-04 16:02] LABS: Absolute Lymphocyte Count 1.11 X10^3/uL (0.83-4.51); Absolute Neutrophil Count 7.2 X10^3/uL (2.0-7.7); Basophil# 0.05 X10^3/uL; Basophil% 0.5 % (0-1); Eosinophil# 0.21 X10^3/uL; Eosinophils% 2.3 % (0-5); Hematocrit 38.1 % (37-47); Hemoglobin 12.6 g/dL (12.0-15.0); Lymphocyte # 1.11 X10^3/ul (0.83-4.51); Lymphocyte % 12.1 % (19-41); Mean Corp Hgb Conc 33.1 g/dL (32-36); Mean Corpuscular Hgb 30.4 pg (27.0-32.0); Mean Corpuscular Volume 91.8 fL (81-99); Mean Platelet Vol. 9.3 fl (6.2-12.0); Monocyte# 0.52 X10^3/uL; Monocyte% 5.7 % (0-10); NRBC Flagged by Analyzer 0 % (0-5); Neutrophil # 7.22 X10^3/uL (2.7-7.7); Neutrophil % 78.7 % (47-70); Platelet Count 256 K/mm3 (150-450); RBC Distribution Width CV 13.3 % (11.6-14.6); Red Blood Count 4.15 M/mm3 (4.2-5.4); White Blood Count 9.2 K/mm3 (4.4-11.0)
[2021-10-04 16:15] LABS: Bacteria 0 SEEN /hpf (None Seen); Mucous, Urine 0 SEEN /hpf (<or=2+); Red Blood Cells-Urine 0 SEEN /hpf (0-5); White Blood Cells 0 SEEN /hpf (0-5)
[2021-10-04 16:16] LABS: International Normalized Ratio 1.1; Prothrombin Time (Protime)PT. 13.2 SECONDS (11.7-14.9)
[2021-10-04 16:16] LABS: Color, Urine Yellow (Yellow); Glucose, Dipstick Normal (Normal); Ketone-Dipstick Negative (Negative); Leukocyte Esterase-Dipstick Negative /ul (Negative); Nitrite-Dipstick Negative (Negative); Occult Blood-Urine Negative /ul (Negative); Protein-Dipstick Negative (Negative); Urine Bilirubin Dipstick Negative (Negative); Urine Clarity Sl. Cloudy (Clear); Urine Urobilinogen Normal (Normal)
--- NOTE | 2021-10-04 16:20 | CM.ED ---
SOCIAL WORK Referral Source: Self-referral Reason for Consult: Substance abuse-requesting alcohol detox Met with patient in room. Introduced role and reason for referral. Patient reports has already been in contact with [facility] and anticipates residential treatment at discharge. Call to Treatment Navigator, left message updating on patient's admission to [facility]. Plan: BRIAN Briceno MSW, DEPUTY JAILER
--- NOTE | 2021-10-04 16:26 | NURSING ---
pt states she will send her belongings home with mom.
[2021-10-04 16:27] LABS: ALB/GLOB Ratio 0.8 RATIO (0.9-2.4); AST(SGOT) 16 U/L (15-37); Alanine Aminotransfer ALT/SGPT 13 U/L (13-56); Albumin, Serum 3.5 g/dL (3.2-5.0); Alkaline Phosphatase 111 U/L (45-117); Anion Gap 9 (5-15); BUN 31 mg/dL (7-18); BUN/Creat Ratio 21.8 RATIO (10-20); Calcium,Total 8.8 mg/dL (8.5-10.1); Chloride 100 mmol/L (98-107); Creatinine, Serum 1.42 mg/dL (0.55-1.02); EST Glomerular Filtration Rate 41 mL/min (>60); Est Glom Filt Rate - Afr Amer 50 mL/min (>60); Estimated Creatinine Clearance 37.07 ml/min; Globulin 4.3 g/dL (2.2-4.2); Glucose 88 mg/dL (74-106); Potassium 3.9 mmol/L (3.5-5.1); Protein, Total 7.8 g/dL (6.4-8.2); Sodium Level 135 mmol/L (136-145)
[2021-10-04 16:34] LABS: Alcohol, Blood (Medical)-Serum < 3.0 mg/dL
[2021-10-04 16:34] LABS: Squamous Epithelial Cells - UA 0-5 SEEN /hpf (5-10)
[2021-10-04 16:57] LABS: Internal QC Validated? YES +Cl - CLEAR BKGD; Pregnancy, Serum, hCG Quali. NEGATIVE Negative
[2021-10-04] MEDS: Lactated Ringers 1,000 ML 125 ML IV (17:35)
[2021-10-04] MEDS: Phenobarbital 32.4 MG Tablet 64.8 MG PO ×2 (18:00→21:43)
[2021-10-04] MEDS: Loperamide 2 MG Capsule PO (20:47)
[2021-10-04] MEDS: Folic Acid 1 MG Tablet PO (20:47)
[2021-10-04] MEDS: hydrOXYzine PAM 25 MG Capsule 50 MG PO (20:47)
[2021-10-04] MEDS: Thiamine Hydrochloride 100 MG Tablet PO (20:48)
[2021-10-04] MEDS: traZODone 100 MG Tablet PO (21:42)
[2021-10-04] MEDS: Heparin Injection (Vial) 5,000 UNIT/ML VIAL 5000 UNIT SC (21:42)
[2021-10-04] MEDS: Atorvastatin Calcium 10 MG Tablet PO (21:42)
[2021-10-05] MEDS: Phenobarbital 32.4 MG Tablet 64.8 MG PO ×5 (01:47→21:44)
[2021-10-05] MEDS: 0.9% Normal Saline 1,000 ML 100 ML IV (01:47)
[2021-10-05 01:54] VITALS: BP 108/55; PULSE 85; RESP 16; TEMP 36.7; O2SAT 93
[2021-10-05 05:46] VITALS: BP 97/65; PULSE 75; RESP 16; TEMP 36.6; O2SAT 94
[2021-10-05] MEDS: Levothyroxine 112 MCG Tablet PO (05:47)
[2021-10-05 06:23] LABS: Amphetamine Urine VISTA NEGATIVE (<1000 ng/mL); Barbiturate Urine VISTA POSITIVE (< 200 ng/mL); Benzodiazepine Urine VISTA NEGATIVE (< 200 ng/mL); Cocaine Urine VISTA NEGATIVE (< 300 ng/mL); Ecstacy Urine VISTA NEGATIVE (< 500 ng/mL); Methadone Urine VISTA NEGATIVE (< 300 ng/mL); PCP Urine VISTA NEGATIVE (< 25 ng/mL); THC Urine VISTA NEGATIVE (< 50 ng/mL); Vista UDS pH Range 5
[2021-10-05 07:47] LABS: Anion Gap 6 (5-15); BUN 26 mg/dL (7-18); Calcium,Total 8.3 mg/dL (8.5-10.1); Chloride 102 mmol/L (98-107); Creatinine, Serum 1.18 mg/dL (0.55-1.02); EST Glomerular Filtration Rate 51 mL/min (>60); Est Glom Filt Rate - Afr Amer 62 mL/min (>60); Estimated Creatinine Clearance 44.61 ml/min; Glucose 96 mg/dL (74-106); Potassium 3.5 mmol/L (3.5-5.1); Sodium Level 135 mmol/L (136-145); Thyroid Stim Hormone (TSH) 4.99 uIU/mL (0.358-3.74)
[2021-10-05 09:49] VITALS: BP 98/72; PULSE 79; RESP 18; TEMP 36.7; O2SAT 92
[2021-10-05] MEDS: Sertraline 50 MG Tablet PO (09:56)
[2021-10-05] MEDS: Heparin Injection (Vial) 5,000 UNIT/ML VIAL 5000 UNIT SC ×2 (09:57→21:44)
--- NOTE | 2021-10-05 10:18 | ADDICTION ---
This race and sports book writer met with PT to conduct ASAM, MSE, AUDIT assessments and to plan for d/c. PT A+Ox4 and participated actively. All assessments completed, faxed to [facility] and placed in PT's chart. PT plans to f/u with individual counselor at [facility] for follow-up counseling services. PT did not indicate a need for transportation post d/c from [facility].
[2021-10-05] MEDS: Pantoprazole Sodium 40 MG Tablet PO (10:20)
--- NOTE | 2021-10-05 10:43 | PN.HOSP_ITS ---
Subjective Subjective Patient seen and examined. She had no active complaints and had an uneventful night. Review of systems otherwise negative. He has remained hemodynamically stable. Objective Data Objective Data Vital Signs: Vital Signs Temp Pulse Resp BP Pulse Ox 98.1 F 79 18 98/72 92 10/05/21 09:49 10/05/21 09:49 10/05/21 09:49 10/05/21 09:49 10/05/21 09:49 Oxygen Delivery Method Room Air Weight: 235 lb 4.79 oz Body Mass Index (BMI) 43.0 Intake & Output: Intake and Output for Last 24 Hours 10/03/21 10/04/21 10/05/21 23:59 23:59 23:59 Intake Total 450 / 450 1000 / 1000 Output Total Balance 450 / 450 999 / 999 Lab / Micro Data Result Diagrams: 10/04/21 15:55 10/05/21 06:05 Labs: Laboratory Results - last 24 hr 10/04/21 15:55: WBC 9.2, RBC 4.15 L, Hgb 12.6, Hct 38.1, MCV 91.8, MCH 30.4, MCHC 33.1, RDW Std Deviation 45.0 H, RDW Coeff of Rosa 13.3, Plt Count 256, MPV 9.3, Immature Gran % (Auto) 0.700, Neut % (Auto) 78.7 H, Lymph % (Auto) 12.1 L, [place] % (Auto) 5.7, Eos % (Auto) 2.3, Baso % (Auto) 0.5, Absolute Neuts (auto) 7.2, Absolute Lymphs (auto) 1.11, Nucleated RBC % 0 10/04/21 15:55: Sodium 135 L, Potassium 3.9, Chloride 100, Carbon Dioxide 26.0, Anion Gap 9, BUN 31 H, Creatinine 1.42 H, Estim Creat Clear Calc 37.07, Est GFR (MDRD) Af Amer 50 L, Est GFR (MDRD) Non-Af 41 L, BUN/Creatinine Ratio 21.8 H, Glucose 88, Calcium 8.8, Total Bilirubin 0.40, AST 16, ALT 13, Alkaline Phosphatase 111, Total Protein 7.8, Albumin 3.5, Globulin 4.3 H, Albumin/Globulin Ratio 0.8 L 10/04/21 15:55: Ethyl Alcohol < 3.0 10/04/21 15:55: PT 13.2, INR 1.1 10/04/21 15:55: Serum , Qual NEGATIVE 10/04/21 16:11: Urine Color Yellow, Urine Clarity Sl. Cloudy, Urine pH 5.0, Ur Specific [place] 1.020, Urine Protein Negative, Urine Glucose (UA) Normal, Urine Ketones Negative, Urine Occult Blood Negative, Urine Nitrite Negative, Urine Bilirubin Negative, Urine Urobilinogen Normal, Ur Leukocyte Esterase Negative, Urine RBC 0 SEEN, Urine WBC 0 SEEN, Ur Squamous Epith Cells 0-5 SEEN, Urine Bacteria 0 SEEN, Urine Mucus 0 SEEN 10/05/21 05:55: Urine Opiates Screen NEGATIVE, Urine Methadone Screen NEGATIVE, Ur Barbiturates Screen POSITIVE H, Ur Phencyclidine Scrn NEGATIVE, Ur Amphetamines Screen NEGATIVE, U Methamphetamin-MDMA NEGATIVE, U Benzodiazepines Scrn NEGATIVE, Urine Cocaine Screen NEGATIVE, U Cannabinoids Screen NEGATIVE, Ur Drug Screen Comment 10/05/21 06:05: Sodium 135 L, Potassium 3.5, Chloride 102, Carbon Dioxide 27.0, Anion Gap 6, BUN 26 H, Creatinine 1.18 H, Estim Creat Clear Calc 44.61, Est GFR (MDRD) Af Amer 62, Est GFR (MDRD) Non-Af 51 L, BUN/Creatinine Ratio 22.0 H, Glucose 96, Calcium 8.3 L, TSH 4.99 H Physical Exam Const alert, oriented x3 and no apparent distress Exam Limitations: no limitations HEENT head/scalp atraumatic and moist oral mucous membranes HEENT Narrative: Has tracheostomy tube in place Head and Scalp: normocephalic Eyes PERRL, EOMs intact bilaterally and conjunctivae normal Neck no lymphadenopathy Resp normal respiratory effort, no retractions, no use of accessory muscles and clear to auscultation bilaterally Cardio regular rate, regular rhythm, S1 normal heart sound, S2 normal heart sound and no murmurs GI normal to inspection, nondistended, normoactive bowel sounds, soft to palpation, non-tender and non-distended Extremity normal to inspection Peripheral Pulses: Yes pulses 2+ throughout Skin no rashes or lesions noted Neuro oriented x3 and CN's II-XII intact bilaterally Sensorium / Orientation: awake and alert Psych affect normal Assessment & Plan Assessment/Plan (1) Alcohol use disorder: PLAN: #Acute alcohol withdrawal * on alcohol withdrawal protocol with phenobarbital * monitor CIWA score * on thiamine, folic acid and multivite * adjunctive meds for symptomatic relief * #history of laryngeal cancer s/p tracheostomy * s/p surgery and chemoradiation * has tracheostomy tube in place * #Hypertension: On amlodipine, losartan and hydrochlorothiazide. #Hypothyroidism: On Synthroid #Hyperlipidemia: On atorvastatin DVT prophylaxis: Heparin. Charges/Coding Visit Charges Inpatient E&M: 54656 Subs Hosp L2
[2021-10-05 14:55] VITALS: BP 117/78; PULSE 92; RESP 18; TEMP 37; O2SAT 96
[2021-10-05] MEDS: 0.9% Saline Lock 10 ML Syringe IV (15:18)
[2021-10-05] MEDS: Mag Hydrox/Al Hydrox/Simeth 30 ML UDC PO (15:18)
[2021-10-05 18:12] VITALS: BP 124/91; PULSE 91; RESP 16; TEMP 37.2; O2SAT 95
[2021-10-05 21:07] VITALS: BP 112/80; PULSE 82; RESP 16; TEMP 36.7; O2SAT 92
[2021-10-05] MEDS: Atorvastatin Calcium 10 MG Tablet PO (21:44)
[2021-10-06] MEDS: Phenobarbital 32.4 MG Tablet 64.8 MG PO ×6 (01:54→21:32)
[2021-10-06 05:15] VITALS: BP 123/83; PULSE 89; RESP 16; TEMP 36.4; O2SAT 94
[2021-10-06] MEDS: Levothyroxine 112 MCG Tablet PO (05:38)
[2021-10-06 08:54] VITALS: BP 130/89; PULSE 112; RESP 18; TEMP 37; O2SAT 100
[2021-10-06] MEDS: Heparin Injection (Vial) 5,000 UNIT/ML VIAL 5000 UNIT SC ×2 (09:28→21:34)
[2021-10-06] MEDS: amLODIPine 10 MG Tablet PO (09:29)
[2021-10-06] MEDS: Sertraline 50 MG Tablet PO (09:30)
[2021-10-06] MEDS: Pantoprazole Sodium 40 MG Tablet PO (09:31)
[2021-10-06] MEDS: 0.9% Saline Lock 10 ML Syringe IV (09:33)
--- NOTE | 2021-10-06 10:26 | PN.HOSP_ITS ---
Subjective Subjective Patient seen and examined. She had no active complaints and had an uneventful night. Review of systems otherwise negative. Objective Data Objective Data Vital Signs: Vital Signs Temp Pulse Resp BP Pulse Ox 98.6 F 112 H 18 130/89 H 100 10/06/21 08:54 10/06/21 08:54 10/06/21 08:54 10/06/21 08:54 10/06/21 08:54 Oxygen Delivery Method Room Air Weight: 235 lb 4.79 oz Body Mass Index (BMI) 43.0 Intake & Output: Intake and Output for Last 24 Hours 10/04/21 10/05/21 10/06/21 23:59 23:59 23:59 Intake Total 450 / 450 3200 / 3400 440 / 440 Output Total Balance 450 / 450 3199 / 3399 440 / 440 Lab / Micro Data Result Diagrams: 10/04/21 15:55 10/05/21 06:05 Physical Exam Const alert, oriented x3 and no apparent distress Exam Limitations: no limitations HEENT head/scalp atraumatic and moist oral mucous membranes HEENT Narrative: has tracheostomy tube in place. Head and Scalp: normocephalic Eyes PERRL, EOMs intact bilaterally and conjunctivae normal Neck no lymphadenopathy Resp normal respiratory effort, no retractions, no use of accessory muscles and clear to auscultation bilaterally Cardio regular rate, regular rhythm, S1 normal heart sound, S2 normal heart sound and no murmurs GI normal to inspection, nondistended, normoactive bowel sounds, soft to palpation, non-tender and non-distended Extremity normal to inspection Skin no rashes or lesions noted Neuro oriented x3 and CN's II-XII intact bilaterally Sensorium / Orientation: awake and alert Psych affect normal Assessment & Plan Assessment/Plan (1) Alcohol use disorder: PLAN: #Acute alcohol withdrawal * on alcohol withdrawal protocol with phenobarbital * monitor CIWA score * on thiamine, folic acid and multivite * adjunctive meds for symptomatic relief * #history of laryngeal cancer s/p tracheostomy * s/p surgery and chemoradiation * has tracheostomy tube in place * #Hypertension: On amlodipine, losartan and hydrochlorothiazide. #Hypothyroidism: On Synthroid #Hyperlipidemia: On atorvastatin DVT prophylaxis: Heparin. Disposition: for DC tomorrow. Wants to go to an inpatient rehab facility. Case management on board. Charges/Coding Visit Charges Inpatient E&M: 65731 Subs Hosp L2
[2021-10-06 14:58] VITALS: BP 125/86; PULSE 90; RESP 16; TEMP 37.1; O2SAT 95
--- NOTE | 2021-10-06 18:16 | NURSING ---
reviewed documentation by Silverio Hollins, student RN
[2021-10-06 19:59] VITALS: BP 120/78; PULSE 97; RESP 19; TEMP 36.7; O2SAT 95
[2021-10-06] MEDS: traZODone 100 MG Tablet PO (21:32)
[2021-10-06] MEDS: Mag Hydrox/Al Hydrox/Simeth 30 ML UDC PO (21:33)
[2021-10-06] MEDS: Atorvastatin Calcium 10 MG Tablet PO (21:36)
[2021-10-07 01:24] VITALS: BP 130/89; PULSE 83; PULSE 93; RESP 20; TEMP 36.8; O2SAT 97
[2021-10-07] MEDS: Phenobarbital 32.4 MG Tablet 64.8 MG PO ×2 (01:34→06:23)
--- NOTE | 2021-10-07 04:21 | NURSING ---
This RN reviewed SN charting and agree with charting.
[2021-10-07] MEDS: Levothyroxine 112 MCG Tablet PO (06:26)
[2021-10-07 06:27] VITALS: BP 138/71; PULSE 83; PULSE 93; RESP 16; TEMP 36.9; O2SAT 92
[2021-10-07] MEDS: Sertraline 50 MG Tablet PO (09:50)
[2021-10-07] MEDS: amLODIPine 10 MG Tablet PO (09:50)
[2021-10-07] MEDS: Pantoprazole Sodium 40 MG Tablet PO (09:50)
--- NOTE | 2021-10-07 10:35 | PCM.DC.SUM ---
Providers Date of Admission: 10/04/21 Primary Care Physician: [facility] Reason For Visit: ALCOHOL WITHDRAWAL SYNDROME Diagnosis Discharge Diagnosis (1) Alcohol use disorder: Status: Acute Medications at Discharge Home Medications albuterol sulfate 2 puff INHALATION Q6H PRN PRN #1 inhaler 12/16/17 ipratropium 0.5 mg-albuterol 3 mg (2.5 mg base)/3 mL nebulization soln 3 ml INHALATION Q6H PRN ml 09/09/19 omeprazole 40 mg capsule,delayed release 40 mg PO DAILY 09/09/19 atorvastatin 10 mg PO QHS 01/11/21 sertraline 50 mg PO DAILY 01/11/21 amlodipine 10 mg PO DAILY 10/04/21 levothyroxine 112 mcg PO DAILY 10/04/21 liothyronine 5 mcg PO BID 10/04/21 losartan-hydrochlorothiazide 1 tab PO DAILY 10/04/21 Hospital Course Operations None Procedures None Summary of Care Provided Minutes Spent on Discharge: 40 Hospital Course: Is a 51-year-old female with a past medical history which includes history of laryngeal cancer for which she has a tracheostomy tube as well as chronic alcohol abuse. She was admitted through the ED on 10/04/2021 after being sent here by 1 AT facility for acute alcohol detox and medical stabilization. She has been drinking heavy alcohol and drink about half a bottle of whiskey for 3 months prior to admission. She denied any withdrawal symptoms. She was admitted and managed for acute alcohol withdrawal. She was started on alcohol withdrawal protocol with phenobarbital. Patient tolerated 3-day detox process well and had no complaints. She remained stable and was discharged on 10/07/2021, to follow-up with 180 on outpatient basis. Patient seen and examined prior to discharge. She had no complaints. Review of systems otherwise negative. Labs and vitals reviewed. Medication reviewed and reconciled. Physical Exam Const alert, oriented x3 and no apparent distress General Appearance: cooperative and comfortable Exam Limitations: no limitations HEENT normocephalic, head/scalp atraumatic and moist oral mucous membranes HEENT Narrative: tracheostomy tube in place Eyes PERRL, EOMs intact bilaterally and conjunctivae normal Neck no lymphadenopathy Resp normal respiratory effort, no retractions, no use of accessory muscles and clear to auscultation bilaterally Cardio regular rate, regular rhythm, S1 normal heart sound, S2 normal heart sound and no murmurs GI normal to inspection, nondistended, normoactive bowel sounds, soft to palpation, non-tender and non-distended Extremity normal to inspection Skin no rashes or lesions noted Neuro oriented x3 and CN's II-XII intact bilaterally Sensorium / Orientation: awake and alert Psych affect normal Weight / BMI Weight Weight: 235 lb 4.79 oz Body Mass Index (BMI) 43.0 ABG / Lab / Microbiology Data Result Diagrams: 10/04/21 15:55 10/05/21 06:05 D/C Instructions Discharge Diet: Low fat / Low cholesterol Discharge Activity: Return to Normal Activity Weight Bearing Status: Weight bearing as tolerated Call your doctor if you observe: Fever of 101 or Higher, Shortness of breath, Dizziness, Swelling in the ankles, Chest pain and Increased palpitations (irregular heartbeat) Meaningful Use Info Meaningful Use Diagnoses (Choose all that apply): None applicable Discharge Plan Admission Admit Date/Time: 10/04/21 15:19 Primary Reason for Your Visit: acute alcohol withdrawal Attending Provider: Pascale Valverde [facility] Discharge Orders/Prescriptions Prescriptions: Continued omeprazole 40 mg capsule,delayed release(DR/EC) 40 mg PO DAILY RF: 0 ipratropium-albuterol 0.5 mg-3 mg(2.5 mg base)/3 mL solution for nebulization 3 ml INHALATION Q6H PRN (Reason: Congestion) RF: 0 albuterol sulfate 1 PUFF inhaler 2 puff INHALATION Q6H PRN PRN (Reason: Dyspnea) Qty: 1 RF: 0 sertraline 50 MG tablet 50 mg PO DAILY RF: 0 atorvastatin 10 MG tablet 10 mg PO QHS RF: 0 liothyronine 5 mcg tablet 5 mcg PO BID RF: 0 losartan-hydrochlorothiazide 100-25 mg tablet 1 tab PO DAILY RF: 0 amlodipine 10 mg tablet 10 mg PO DAILY RF: 0 levothyroxine 112 mcg tablet 112 mcg PO DAILY RF: 0 [facility] [Primary Care Provider] - Within 2 Weeks Charges/Coding Visit Charges Inpatient E&M: 95429 Disch Hosp
[2021-10-07 11:25] VITALS: BP 102/77; PULSE 81; RESP 16; TEMP 36.6; O2SAT 94
== END 2021-10-07 11:59 | disposition home or self-care (01) | DRG 897 ==
LOC: ED 16:10 → MS3 16:18
PROVIDERS: Admitting Provider Internal Medicine; Emergency Provider Student in an Organized Health Care Education/Training Program; Visit Provider Student in an Organized Health Care Education/Training Program
DX: F10.239 Alcohol dependence with withdrawal, unspecified (principal); Z68.41 Body mass index [BMI] 40.0-44.9, adult; E87.1 Hypo-osmolality and hyponatremia; I10 Essential (primary) hypertension; E78.5 Hyperlipidemia, unspecified; E03.9 Hypothyroidism, unspecified; E66.01 Morbid (severe) obesity due to excess calories; Z79.890 Hormone replacement therapy; Z79.899 Other long term (current) drug therapy; Z93.0 Tracheostomy status; Z87.891 Personal history of nicotine dependence; Z85.21 Personal history of malignant neoplasm of larynx
CPT/HCPCS: 36415; 80048; 80053; 80307; 81001; 82077; 84443; 84703; 85025; 85610; 99283; J7030; J7120; A4216

== ENCOUNTER 2022-01-24 07:15 | Day surgery (SDC) | payer MEDICARE, MEDICAID, SELFPAY ==
[2022-01-24] VITALS (8 sets, daily range): BP systolic 95–196; BP diastolic 60–169; PULSE 89–98; RESP 16–20; TEMP 36.2–36.6; O2SAT 92–97; BMI 45.0
[2022-01-24] MEDS: Lactated Ringers 1,000 ML 15 ML IV ×2 (08:08→11:00)
--- NOTE | 2022-01-24 08:46 | PCM.DC.SUM ---
Providers Primary Care Physician: [facility] Reason For Visit: TRACH Medications at Discharge Home Medications albuterol sulfate 2 puff INHALATION Q6H PRN PRN #1 inhaler 12/16/17 omeprazole 40 mg capsule,delayed release 40 mg PO DAILY 09/09/19 atorvastatin 10 mg PO QHS 01/11/21 sertraline 50 mg PO DAILY 01/11/21 amlodipine 10 mg PO DAILY 10/04/21 levothyroxine 112 mcg PO DAILY 10/04/21 liothyronine 5 mcg PO BID 10/04/21 losartan-hydrochlorothiazide 1 tab PO DAILY 10/04/21 gabapentin 100 mg PO BID 11/29/21 Weight / BMI Weight Weight: 111.7 kg Body Mass Index (BMI) 45.0 ABG / Lab / Microbiology Data Microbiology: Microbiology 01/24/22 07:45 Interface Orders SARS-CoV-2 Antigen (Rapid) - Final D/C Instructions Discharge Diet: No restrictions Discharge Activity: Return to Normal Activity Additional Dressing/Incision Instructions: Keep tube in place/secured to the skin for the next 2 weeks. Meaningful Use Info Meaningful Use Diagnoses (Choose all that apply): None applicable Discharge Plan Admission Attending Provider: Jeremi Pantoja Primary Care Provider: [facility] Consulting Providers: Noris Zamudio Discharge Orders/Prescriptions Prescriptions: No Action omeprazole 40 mg capsule,delayed release(DR/EC) 40 mg PO DAILY RF: 0 albuterol sulfate 1 PUFF inhaler 2 puff INHALATION Q6H PRN PRN (Reason: Dyspnea) Qty: 1 RF: 0 sertraline 50 MG tablet 50 mg PO DAILY RF: 0 atorvastatin 10 MG tablet 10 mg PO QHS RF: 0 liothyronine 5 mcg tablet 5 mcg PO BID RF: 0 losartan-hydrochlorothiazide 100-25 mg tablet 1 tab PO DAILY RF: 0 amlodipine 10 mg tablet 10 mg PO DAILY RF: 0 levothyroxine 112 mcg tablet 112 mcg PO DAILY RF: 0 gabapentin 100 mg Tablet 100 mg PO BID RF: 0 Disposition Discharge Orders: Discharge Patient (Routine); Ordered 01/24/22 Ordered By: Dr. Jeremi Pantoja
[2022-01-24] MEDS: Lidocaine 1% /Epi 1:100 (50ml) 50 ML VIAL (09:25)
--- NOTE | 2022-01-24 11:29 | PCM.OPRPT ---
Report of Operation Date of Procedure: 01/24/22 Pre-Operative Diagnosis: aphonia foreign body esophagus Post-Operative Diagnosis: same Surgery/Procedure Performed:: Tracheoesophageal puncture rigid esophagoscopy with foreign body removal from esophagus Surgeon: Jeremi Pantoja Type of Anesthesia: General Anesthesiologist: Zia Shannon Description of Procedure: The patient was taken to the operating room on 01/24/2022. She was placed in the supine position on the operating room table. She was given sufficient general anesthesia. She was intubated through her stoma with a laser tube. This was taped to the chest. The table was turned 90 degrees in a counterclockwise fashion. A gum guard was placed on the patient's upper gingiva. A rigid esophagoscope was placed into the neopharynx and esophagus. The old voice prosthesis was sitting in some granulation tissue on the anterior wall of the esophagus. This was grasped with alligator forceps and removed through the rigid esophagoscope. Bleeding was self-limited. Next the rigid esophagoscope was reinserted into the patient's esophagus. A 14-gauge Angiocath was placed through the posterior wall of the trachea and through the anterior wall of the esophagus. We were careful not to puncture the posterior wall of the esophagus. The sharp end of the needle was placed into the rigid esophagoscope. Next, a guidewire was placed through the catheter and the catheter was removed. Next we serially dilated the tracheoesophageal fistula up to a 16 Turkish. Next, I placed a mosquito clamps into the tracheoesophageal fistula and enlarged the opening. A red rubber catheter was then placed through the tracheoesophageal fistula. I then guided this inferiorly toward the stomach using the rigid esophagoscope. The red rubber catheter was then sewn to the chest with 2-0 silk. A Tegaderm was also placed on the red rubber catheter. The patient was then awoken and brought to recovery room in stable condition. Blood loss minimal, replacement none. Sponge, needle, and instrument count were correct at the end the procedure.
[2022-01-24] MEDS: HYDROcodone Bitartrate/Apap 5/325 Tablet PO (12:50)
== END 2022-01-24 23:59 | disposition home or self-care (01) ==
LOC: SDC 07:17 → AC 07:19
PROVIDERS: Visit Provider Otolaryngology
PROC: (CPT 43194; principal; 2022-01-24 08:25)
DX: J95.03 Malfunction of tracheostomy stoma (principal); T18.108A Unspecified foreign body in esophagus causing other injury, initial encounter; R49.1 Aphonia; E07.9 Disorder of thyroid, unspecified; Z20.822 Contact with and (suspected) exposure to COVID-19; Z79.890 Hormone replacement therapy; Z79.899 Other long term (current) drug therapy; Z85.21 Personal history of malignant neoplasm of larynx; Z87.891 Personal history of nicotine dependence
CPT/HCPCS: 43194; 00731; 31611; 87426; J7120; C1751; J2405; J3490

== ENCOUNTER 2022-02-03 10:00 | Outpatient (CLI) | payer MEDICARE, MEDICAID, SELFPAY ==
--- NOTE | 2021-12-02 11:47 | EKG12_ITS ---
Test Reason : PRE OP Blood Pressure : / mmHG Vent. Rate : 082 BPM Atrial Rate : 082 BPM P-R Int : 132 ms QRS Dur : 080 ms QT Int : 362 ms P-R-T Axes : 061 049 043 degrees QTc Int : 422 ms Normal sinus rhythm Normal ECG Confirmed by NEISHA MERINO, SHIVA ([id number]), book or script editor ROSEY PARRA ([id number]) on 12/03/2021 7:47:08 AM Referred By: Jeremi Pantoja Confirmed By:TANGELA DRIVER MD
[2021-12-02 12:38] LABS: Hematocrit 40.2 % (37-47); Hemoglobin 12.8 g/dL (12.0-15.0); Mean Corp Hgb Conc 31.8 g/dL (32-36); Mean Corpuscular Hgb 29.6 pg (27.0-32.0); Mean Corpuscular Volume 93.1 fL (81-99); Mean Platelet Vol. 9.4 fl (6.2-12.0); Platelet Count 225 K/mm3 (150-450); RBC Distribution Width CV 13.2 % (11.6-14.6); RBC Distribution Width SD 45.1 fl (35.1-43.9); Red Blood Count 4.32 M/mm3 (4.2-5.4); White Blood Count 8.3 K/mm3 (4.4-11.0)
[2021-12-02 12:57] LABS: Anion Gap 3 (5-15); BUN 20 mg/dL (7-18); BUN/Creat Ratio 18.2 RATIO (10-20); Calcium,Total 8.9 mg/dL (8.5-10.1); Chloride 104 mmol/L (98-107); EST Glomerular Filtration Rate 56 mL/min (>60); Est Glom Filt Rate - Afr Amer 67 mL/min (>60); Glucose 100 mg/dL (74-106); Potassium 4.6 mmol/L (3.5-5.1); Sodium Level 133 mmol/L (136-145)
== END 2022-02-03 23:59 | disposition home or self-care (01) ==
LOC: SDC 10:16
PROVIDERS: Referring Provider Otolaryngology; Visit Provider Otolaryngology
DX: J95.03 Malfunction of tracheostomy stoma (principal); E07.9 Disorder of thyroid, unspecified; Z79.890 Hormone replacement therapy; Z79.899 Other long term (current) drug therapy; Z85.21 Personal history of malignant neoplasm of larynx
CPT/HCPCS: 36415; 80048; 85027; 87426; 93005; C9803

== ENCOUNTER 2022-04-26 00:55 | Inpatient (IN) | payer MEDICARE, MEDICAID, SELFPAY ==
[2022-04-26] VITALS (15 sets, daily range): BP systolic 94–129; BP diastolic 59–96; PULSE 91–124; RESP 16–22; TEMP 36.6–37.3; O2SAT 93–99; BMI 47.7
--- NOTE | 2022-04-26 00:58 | HP.PCM.HOS_ITS ---
HPI - General General Date of Admission: 04/26/22 HPI Narrative VJ MYERS, is a 51 F with a significant history of rotator cuff injury; throat cancer status post chemoradiation and tracheostomy; former alcoholism and former tobacco abuse who presents to the emergency department with 1 week history of progressive worsening shortness of breath. Associated with her symptoms is some mild wheezes; mild intermittent dry cough and poor appetite. She denies any fever or chills. Also she reports that the last couple of days she had bilateral legs swelling. Patient went to ED. And because of lack of beds patient was transferred to [facility] Medical History Alcohol use Anxiety Back pain COPD (chronic obstructive pulmonary disease) Difficulty swallowing Former smoker Gastric reflux High cholesterol History of echocardiogram History of foreign body aspiration History of hiatal hernia History of pain when walking History of renal disease HTN (hypertension) Hypothyroid Influenza A Larynx cancer Leg cramps Restless legs Shortness of breath on exertion Thyroid disease Wears dentures Home Medications albuterol sulfate 2 puff INHALATION Q6H PRN PRN #1 inhaler 12/16/17 [Rx Last Taken 10/04/21] omeprazole 40 mg capsule,delayed release 40 mg PO DAILY 09/09/19 [History Last Taken 04/25/22] atorvastatin 10 mg PO QHS 01/11/21 [History Last Taken 04/25/22] sertraline 75 mg PO DAILY 01/11/21 [History Last Taken 04/25/22] amlodipine 10 mg PO DAILY 10/04/21 [History Last Taken 04/25/22] levothyroxine 137 mcg PO DAILY 10/04/21 [History Last Taken 04/25/22] liothyronine 5 mcg PO BID 10/04/21 [History Last Taken 04/25/22] losartan-hydrochlorothiazide 1 tab PO DAILY 10/04/21 [History Last Taken 04/25] gabapentin 300 mg PO BID 11/29/21 [History Last Taken 04/25/22] hydrocodone-acetaminophen 1 tab PO Q8H PRN PRN 04/26/22 [History Last Taken Unknown] hydroxyzine HCl 25 mg PO 4X/DAY PRN PRN 04/26/22 [History Last Taken Unknown] meloxicam 15 mg PO DAILY 04/26/22 [History Last Taken 04/25/22] sucralfate 1 g PO 4X/DAY 04/26/22 [History Last Taken 04/25/22] Allergy/AdvReac Type Severity Reaction Status Date / Time latex Allergy BLISTERS Verified 01/24/22 07:53 Iodinated Contrast Media AdvReac Hives Verified 01/24/22 07:53 [Iodinated Contrast Media - IV Dye] morphine AdvReac Nausea/Vom/ Verified 01/24/22 07:53 Diarrhea Family History Mother CVA (cerebral vascular accident) Heart disease Hypertension Sister Cancer Surgical History History of laryngectomy Hx of cholecystectomy Hx of hernia repair Hx of hysterectomy Social History Smoking Status: Former smoker ROS ROS Narrative Pertinent positives and pertinent negatives as noted in HPI. All other systems were reviewed and are negative. Vital Signs Vital Signs Vital Signs: Weight Weight: 118.3 kg Body Mass Index (BMI) 47.7 Physical Exam Narrative Physical exam: General: Morbidly obese. Head: Normocephalic, atraumatic, no tenderness Eyes: Vision is grossly intact. EOMI ENT: With tracheostomy hole in place. Patient with trach collar. Neck: Nontender, full range of motion, no spinal tenderness, deformities, step- off CVS: Regular rate and rhythm. S1-S2 present. No murmur, gallop or rub. Respiratory : Mild wheezes. Chest wall nontender Abdomen: Soft, nontender, nondistended, normal bowel sounds, no masses : Deferred Back: Nontender, no CVA tenderness, no midline spinal tenderness, deformities, step-offs Extremities: Nontender full range of motion, no trauma Skin: Normal color, no trauma, abrasions Neuro: Alert, oriented, cranial nerves II through XII grossly intact. Psychiatry: Normal mood. Normal affect. Not depressed. Not anxious. Assessment & Plan Assessment/Plan (1) COPD exacerbation: (2) Morbid obesity: PLAN: Acute hypoxemic respiratory failure secondary COPD exacerbation Requiring 6 L of oxygen with trach collar. Emergency plan doctor as a hospital reports that with oxygen of patient dropped into the 80s. Covid -19 PCR; and influenza PCR from outside hospital was negative. A CT angio chest at outside hospital was unremarkable. Chest x-ray at outside hospital ED showed no acute cardiopulmonary process. Chest x-ray was visualized and independently interpreted and I agree with radiologist interpretation Review of CBC at outside hospital showed normal white counts. Review of outside hospital labs showed negative troponin. Scheduled DuoNeb Albuterol as needed Solu-Medrol [id number] Monitor BMP and CBC CKD stage IIIb Creatinine at the outside hospital was 2.0. Per Emergency department doctor at outside hospital that is patient's baseline. Stable Trend BMP Hypertension On presentation blood pressures were soft. Hold home blood pressure medica tions. Trend blood pressures. Morbid obesity BMI: 47.7 kg/m?. Complicates care. Lifestyle modification recommended. DVT prophylaxis: Subcutaneous Lovenox ordered. Charges/Coding Visit Charges Inpatient E&M: 43855 Init Hosp L3
[2022-04-26] MEDS: Gabapentin 300 MG Capsule PO ×3 (02:22→21:15)
[2022-04-26] MEDS: 0.9% Saline Lock 10 ML Syringe IV ×2 (02:22→06:04)
[2022-04-26] MEDS: Levothyroxine 137 MCG Tablet PO (06:04)
[2022-04-26] MEDS: Sucralfate 1 GM Tablet PO ×4 (06:04→21:08)
[2022-04-26] MEDS: Liothyronine 5 MCG Tablet PO ×2 (06:04→17:55)
[2022-04-26 06:30] LABS: Absolute Lymphocyte Count 0.44 X10^3/uL (0.83-4.51); Absolute Neutrophil Count 6.7 X10^3/uL (2.0-7.7); Basophil# 0.02 X10^3/uL; Basophil% 0.3 % (0-1); Eosinophil# 0.01 X10^3/uL; Eosinophils% 0.1 % (0-5); Hematocrit 36.5 % (37-47); Hemoglobin 11.4 g/dL (12.0-15.0); Lymphocyte # 0.44 X10^3/ul (0.83-4.51); Mean Corp Hgb Conc 31.2 g/dL (32-36); Mean Corpuscular Hgb 28.6 pg (27.0-32.0); Mean Corpuscular Volume 91.7 fL (81-99); Monocyte# 0.09 X10^3/uL; Monocyte% 1.2 % (0-10); NRBC Flagged by Analyzer 0 % (0-5); Neutrophil # 6.73 X10^3/uL (2.7-7.7); Neutrophil % 91.7 % (47-70); POSITIVE DIFFERENTIAL YES; Platelet Count 289 K/mm3 (150-450); RBC Distribution Width CV 13.8 % (11.6-14.6); RBC Distribution Width SD 46.7 fl (35.1-43.9); Red Blood Count 3.98 M/mm3 (4.2-5.4); White Blood Count 7.3 K/mm3 (4.4-11.0)
[2022-04-26 06:32] LABS: Differential Indicated SCAN CRITERIA MET
[2022-04-26] MEDS: Ipratropium/Albuterol Sulfate 3 ML AMPUL.NEB INHALATION ×4 (06:54→19:35)
[2022-04-26 06:55] LABS: Anion Gap 10 (5-15); BUN 31 mg/dL (7-18); Calcium,Total 8.3 mg/dL (8.5-10.1); Chloride 97 mmol/L (98-107); Creatinine, Serum 1.94 mg/dL (0.55-1.02); EST Glomerular Filtration Rate 29 mL/min (>60); Est Glom Filt Rate - Afr Amer 35 mL/min (>60); Estimated Creatinine Clearance 27.13 ml/min; Glucose 165 mg/dL (74-106); Potassium 3.8 mmol/L (3.5-5.1); Sodium Level 134 mmol/L (136-145)
[2022-04-26] MEDS: Nystatin Powder 15gm Bottle 1 APPLIC TOPICAL ×2 (06:56→21:20)
[2022-04-26] MEDS: Pantoprazole Sodium 40 MG Tablet PO (06:56)
[2022-04-26 07:00] LABS: Differential Comment SCANNED
--- NOTE | 2022-04-26 07:09 | CPS ---
Pt does not have suction at home, R.T. will talk to S.W. to see if pt can get unit at home.
[2022-04-26] MEDS: Lactated Ringers 1,000 ML 75 ML IV ×2 (08:45→21:18)
[2022-04-26] MEDS: Enoxaparin 40 MG/0.4 ML Syringe SC (08:46)
[2022-04-26] MEDS: Sertraline 50 MG Tablet 75 MG PO (08:46)
--- NOTE | 2022-04-26 09:04 | VDLE_ITS ---
Reason For Study: swelling RIGHT LEFT GSV is normal. GSV is normal. CFV is compressible, spontaneous, phasic, CFV is compressible, spontaneous, phasic, competent and demonstrates normal competent, and demonstrates normal augmentation. augmentation. FV is compressible, spontaneous, phasic, FV is compressible, spontaneous, phasic, competent and demonstrates normal competent and demonstrates normal augmentation. augmentation. POP V is compressible, spontaneous, phasic, POP V is compressible, spontaneous, phasic, competent and demonstrates normal competent and demonstrates normal augmentation. augmentation. T/P Trunk is compressible. T/P Trunk is compressible. PTV is compressible. PTV is compressible. RT PerV is compressible. LT PerV is compressible. Procedure This is a venous duplex using B-mode, color flow and spectral Doppler. Exam performed portable in patient room. The exam was of fair technical quality due to pt body habitus. A preliminary report was called and/or faxed to [employer] electrical discharge machine operator. VL/Venous Duplex US - Jose David Extrem Interpretation Summary Deep veins of the lower extremities are bilaterally patent and compressible seg mentally. There is no evidence of deep vein thrombosis on either side. Valvular competence appears in tact within the proximal deep venous systems bilaterally. The great saphenous veins appear bila terally patent and compressible segmentally. Ordering Physician: Cat Tripathi Performed By: Chda Lyon, RVT
--- NOTE | 2022-04-26 09:04 | ECHOCS_ITS ---
Reason For Study: DYSPNEA Procedure This was a 2D Doppler, Color Flow transthoracic echocardiogram. The study was technically difficult. Contrast injection was performed. Exam performed portable in patient room. Left Ventricle Normal LV size. Left ventricular systolic function is hyperdynamic. The estimated ejection fraction is 75 %. Unable to assess diastolic dysfunction. No regional wall motion abnormalities noted. Right Ventricle Normal RV size. Normal systolic function. Atria Normal left atrium. Normal right atrium. No doppler evidence for ASD. Mitral Valve There is no mitral annular calcification. Normal mitral valve. Trivial mitral valve insufficiency. Tricuspid Valve Normal tricuspid valve. Trivial tricuspid valve insufficiency. Right ventricular systolic pressure estimated to be 34 mmHg. Aortic Valve The aortic valve is not well visualized. Pulmonic Valve The pulmonic valve is not well visualized. Great Vessels The aortic root is not well visualized. Pericardium/Pleural No pericardial effusion. Medication Diluted definity 1ml given slow IV push to enhance endocardial definition. MMode/2D Measurements & Calculations LVIDd: 4.7 cm IVSd: 1.2 cm LAV(MOD-bp): 55.7 ml LVIDs: 2.2 cm LVPWd: 1.1 cm RVDd: 3.6 cm FS: 52.8 % LAV(MOD-bp) Indexed: 26.1 ml/m2 LAV(MOD-sp2): 61.1 ml LAV(MOD-sp4): 50.3 ml SV(MOD-sp4): 94.4 ml LVAd ap4: 36.6 cm2 LVAd ap2: 34.2 cm2 LVLd ap4: 9.0 cm LVLd ap2: 8.2 cm EDV(MOD-sp4): 122.9 ml EDV(MOD-sp2): 118.6 ml EDV(sp4-el): 126.7 ml EDV(sp2-el): 120.5 ml LVAs ap4: 15.2 cm2 LVAs ap2: 14.1 cm2 LVLs ap4: 6.6 cm LVLs ap2: 6.6 cm ESV(MOD-sp4): 28.5 ml ESV(MOD-sp2): 24.2 ml ESV(sp4-el): 29.6 ml ESV(sp2-el): 25.7 ml EF(MOD-sp4): 76.8 % EF(MOD-sp2): 79.6 % EF(sp4-el): 76.7 % SV(MOD-sp2): 94.4 ml SV(sp4-el): 97.2 ml LA A4 area: 19.0 cm2 RA A4 area: 19.4 cm2 Doppler Measurements & Calculations MV E max wendy: 125.9 cm/sec Ao V2 max: 180.4 cm/sec LV V1 max: 152.2 cm/sec Ao max P.0 mmHg LV V1 max P.3 mmHg TR max wendy: 279.8 cm/sec TR max P.3 mmHg ECHO/Echo Complete W/ Contrast Interpretation Summary The study was technically difficult. Contrast injection was performed. Left ventricular systolic function is hyperdynamic. The estimated ejection fraction is 75 %. Trivial mitral valve insufficiency. Trivial tricuspid valve insufficiency. Right ventricular systolic pressure estimated to be 34 mmHg. Unable to assess diastolic dysfunction. Ordering Physician: Cat Tripathi Performed By: Romana Gutiérrez RCS
--- NOTE | 2022-04-26 13:00 | CASEMGMT ---
Addendum entered by Wang Marrufo 04/26/22 14:15: Pt states Ting Rose NP, referred her to a CM, but she does not remember her name. She states CM was working on getting smoke detectors placed in her home, but this has not been done yet and she is not sure where things are in the process with that. Call to Ting Rose NP, office @ [facility] @ [phone]. They state referral was made to CM, Matilde Arvizu, in the [place] office. Call placed to Matilde @ [phone]. She states CM, Sheela, has also been working w/pt. Per Matilde, they have reached out to the [facility] to have these installed, but it has been a long time since this process has been started. She states they will reach out to the Fire [facility] again. RN KEI inquired if they are working on any other DME for pt at this time, as pt is requesting hospital bed, nebulizer, and suction machine. Matilde states they were unaware of these needs for pt, as she has not communicated that with them and they do contact her once a month. RN CM will notify KEI Coker, @ d/c, if these items are unable to be obtained for pt while @ [facility] and for any further/on-going CM needs @ d/c. Original Note: RN CM [employer] CM to room to meet with patient for initial transition planning/care coordination assessment. RN CM introduced self and role at [facility]. Pt voices understanding and consents to assessment at this time. Pt resting in bed in no distress at this time. Pt is A/O at this time and answers all questions appropriately. Care providers, pharmacy, and demographics verified/updated at this time. PCP: Ting Rose NP, @ [facility] Specialists: Dr Dillon--pulmonology, Dr Frankie Ruff-pain mgmt in [place]. Preferred Pharmacy: [facility] Retail Insurance: [facility], [employer] Prescription Benefit: Yes Living Will/HPOA: Pt has both LW and HPOA, who is her mother, Abby Murdock LNOK: Mother, Abby Murdock/POA. Sister, Celeste Sevens. Living Arrangements: Lives w/son and fiance in one-story home w/one step to enter. Pt states she is independent w/ADL's--able to bath and dress herself. Mother assists w/medication mgmt and appts. Nicole and son do most home mgmt tasks. Pt states she helps as she is able. Transportation: Mom provides most transportation. DME: Pt states she does not currently have any DME. She states is interested in a shower chair. She was made aware [facility] does not cover for cost of those. She states she thinks her mother has a couple of them and she will see if she can bring one to her home. She does not have home O2. She used to have a nebulizer but lost in when she moved about 1-2 yrs ago. She does not have a pulse ox. She is interested in getting a hospital bed, as she is unable to lay flat and has been sleeping on a couch w/pillows to prop herself up on. [facility] has also recommended a suction machine for home. Pt is interested in this also. Pt provided w/list of local DME companies. She denies having a preference. HHC/SNF: Went to a SNF for one-day only and checked herself out. Had HHC in the past about 6 yrs ago. Pt sees OP Gloria MELO, @ [facility] on an on-going/as needed basis. Pt wishes to return home and states has no concerns with going home at time of discharge. Pt states she quit smoking about 5 yrs ago and has not had any ETOH to drink since last admission to [facility] for RAMP program. CM to follow for home oxygen needs and any further discharge planning/needs. Pt voices no further concerns/needs at this time. Advised pt to ask for CM if any further questions/concerns/needs arise. Voices understanding. PLAN: Home w/discharge plans in place. CM to follow DME needs as listed above. Edwardo KOHLER RN CM
--- NOTE | 2022-04-26 13:52 | PCM.HOSP.N ---
Hospitalist Note Patient is a 51-year-old white female with a past medical history of laryngeal cancer status post chemoradiation and larynx implantation who presented to the emergency department at outside hospital with approximately 1 week history of progressively worsening shortness of breath. She has a history of both tobacco and alcohol use. Her symptoms were associated with wheeze and intermittent cough with a poor appetite. She denied any fever or chills on presentation but did complain of bilateral leg swelling and she reported an episode of hemoptysis over the weekend for which she was not seen. She is had no further hemoptysis since that point time and has been seen here by ENT at which time she had granulation tissue present. She is currently on trach mask at 28% with blow-by oxygen at the tracheostomy site as she does not have a tracheostomy tube in place. On exam she has significant wheezing. Given her swelling we obtained bilateral lower extremity Dopplers and an echocardiogram both which were unimpressive and showed no pathology which would result in lower extremity edema. I did review her medications and of note she is on amlodipine at baseline. I suspect that this possibly could be causing her lower extremity swelling and we will discontinue this and place her on another antihypertensive once we restart her antihypertensive medications. Her serum creatinine is 1.97 which is higher than previous however she is not have any recent laboratory data here so is unclear what her baseline currently runs. Her most recent BMP was from November 2021 and she had a serum creatinine of 1.10 at that time. Given her serum creatinine elevation I am going to hold her Mobic and her losartan hydrochlorothiazide is already on hold as is her amlodipine. As needed blood pressure medication is available however her overall blood pressures have not been all that elevated at this time. We will wean her oxygen as able and if she continues to improve she may be able to be discharged in the next 24 hours on prednisone however currently we will keep her on Solu-Medrol. Influenza and COVID testing was negative. We are currently waiting for the results of respiratory viral panel.
--- NOTE | 2022-04-26 15:13 | CASEMGMT ---
Social Work Note SW updated that pt would like resources for community help. ORI in to speak with pt. SW spoke with pt regarding [facility] and [facility] [employer] [facility]. SW provided pt with information on [facility] [employer] [facility]. Pt agreeable to this worker making a referral to [facility]. SW completed Fax Referral Sheet and faxed referral to [facility]. ORI updated that pt's mother is present at [facility] and requesting to speak to SW. ORI in to speak with pt and pt's mother Abby. Abby asked about DME paper and asked if a hospital bed can be set up for pt. ORI informed Abby that RN CM arranges Hospital Beds and that this worker will update RN CM. ORI asked pt which DME company she would like to use. Pt states no preference, agreeable to [employer]. Abby also asked if pt will get Oxygen to go home with and to wear at night. ORI informed Abby that pt will get tested to determine if pt qualifies for Oxygen. ORI asked pt if she wears Oxygen currently and pt state she doesn't. ORI updated RN CM that pt would like a hospital bed and agreeable to [employer]. Meaghan Arvizu PATIENT PORTAL CONCIERGE, ART THERAPY SPECIALIST
[2022-04-26] MEDS: Atorvastatin Calcium 10 MG Tablet PO (21:10)
[2022-04-26] MEDS: MELATONIN 3 MG TABLET PO (21:15)
[2022-04-26] MEDS: HYDROcodone Bitartrate/Apap 5/325 Tablet PO (21:15)
[2022-04-27] VITALS (14 sets, daily range): BP systolic 124–142; BP diastolic 85–96; PULSE 97–108; RESP 16–18; TEMP 36.5–37.1; O2SAT 90–98
[2022-04-27] MEDS: Sucralfate 1 GM Tablet PO ×4 (05:50→22:05)
[2022-04-27] MEDS: Liothyronine 5 MCG Tablet PO ×2 (05:50→18:02)
[2022-04-27] MEDS: Levothyroxine 137 MCG Tablet PO (05:50)
[2022-04-27 06:45] LABS: Absolute Neutrophil Count 9.9 X10^3/uL (2.0-7.7); Basophil# 0.02 X10^3/uL; Basophil% 0.2 % (0-1); Hematocrit 37.9 % (37-47); Hemoglobin 11.8 g/dL (12.0-15.0); Lymphocyte % 3.6 % (19-41); Mean Corp Hgb Conc 31.1 g/dL (32-36); Mean Corpuscular Hgb 28.2 pg (27.0-32.0); Mean Corpuscular Volume 90.7 fL (81-99); Mean Platelet Vol. 10.2 fl (6.2-12.0); Monocyte# 0.51 X10^3/uL; Monocyte% 4.6 % (0-10); NRBC Flagged by Analyzer 0 % (0-5); Neutrophil # 9.93 X10^3/uL (2.7-7.7); Neutrophil % 90.3 % (47-70); POSITIVE DIFFERENTIAL YES; Platelet Count 294 K/mm3 (150-450); RBC Distribution Width SD 46.7 fl (35.1-43.9); Red Blood Count 4.18 M/mm3 (4.2-5.4)
[2022-04-27 06:53] LABS: Differential Indicated SCAN CRITERIA MET
[2022-04-27 07:09] LABS: Differential Comment SCANNED
[2022-04-27 07:21] LABS: Anion Gap 5 (5-15); BUN 24 mg/dL (7-18); BUN/Creat Ratio 23.1 RATIO (10-20); Calcium,Total 9.1 mg/dL (8.5-10.1); Chloride 100 mmol/L (98-107); Creatinine, Serum 1.04 mg/dL (0.55-1.02); EST Glomerular Filtration Rate 59 mL/min (>60); Est Glom Filt Rate - Afr Amer 72 mL/min (>60); Estimated Creatinine Clearance 50.62 ml/min; Glucose 144 mg/dL (74-106); Potassium 3.6 mmol/L (3.5-5.1); Sodium Level 136 mmol/L (136-145); Thyroid Stim Hormone (TSH) 0.75 uIU/mL (0.358-3.74)
[2022-04-27] MEDS: Sertraline 50 MG Tablet 75 MG PO (07:50)
[2022-04-27] MEDS: Enoxaparin 40 MG/0.4 ML Syringe SC (07:50)
[2022-04-27] MEDS: Pantoprazole Sodium 40 MG Tablet PO (07:51)
[2022-04-27] MEDS: Nystatin Powder 15gm Bottle 1 APPLIC TOPICAL ×2 (07:51→22:06)
[2022-04-27] MEDS: Gabapentin 300 MG Capsule PO ×2 (07:54→22:07)
[2022-04-27] MEDS: Carvedilol 6.25 MG Tablet PO ×2 (07:58→22:06)
--- NOTE | 2022-04-27 13:35 | PN.HOSP_ITS ---
Subjective Subjective Patient states she is about 50% better since admission. She no longer is noticing significant wheezing. We discussed the results of her lower extremity Dopplers and echocardiogram and discussed that her amlodipine could potentially be the cause of her lower extremity edema. I did discuss with her that we will discontinue this for now and start Coreg in its place. She voiced understanding. Objective Data Objective Data Vital Signs: Vital Signs Temp Pulse Resp BP Pulse Ox 98.7 F 108 H 16 126/85 H 96 04/27/22 11:25 04/27/22 12:27 04/27/22 11:25 04/27/22 11:25 04/27/22 11:25 Oxygen Flow Rate (L/min) 6 Oxygen Delivery Method Trach Collar Weight: 118.3 kg Body Mass Index (BMI) 47.7 Intake & Output: Intake and Output for Last 24 Hours 04/25/22 04/26/22 04/27/22 23:59 23:59 23:59 Intake Total 2341.25 / 2341.25 1247.5 / 1247.5 Balance 2341.25 / 2341.25 1247.5 / 1247.5 Lab / Micro Data Result Diagrams: 04/27/22 05:55 04/27/22 05:55 Labs: Laboratory Results - last 24 hr 04/27/22 05:55: WBC 11.0, RBC 4.18 L, Hgb 11.8 L, Hct 37.9, MCV 90.7, MCH 28.2, MCHC 31.1 L, RDW Std Deviation 46.7 H, RDW Coeff of Rosa 14.0, Plt Count 294, MPV 10.2, Immature Gran % (Auto) 1.300 H, Neut % (Auto) 90.3 H, Lymph % (Auto) 3.6 L , Mcclain % (Auto) 4.6, Eos % (Auto) 0.0, Baso % (Auto) 0.2, Absolute Neuts (auto) 9.9 H, Absolute Lymphs (auto) 0.40 L, Nucleated RBC % 0, Differential Comment SCANNED 04/27/22 05:55: Sodium 136, Potassium 3.6, Chloride 100, Carbon Dioxide 31.0, Anion Gap 5, BUN 24 H, Creatinine 1.04 H, Estim Creat Clear Calc 50.62, Est GFR (MDRD) Af Amer 72, Est GFR (MDRD) Non-Af 59 L, BUN/Creatinine Ratio 23.1 H, Glucose 144 H, Calcium 9.1, TSH 0.75 Micro: Microbiology 04/26/22 11:00 Mucosa - Nose Respiratory Panel (PCR) - Final Radiography Diagnostic Testing: Radiology Impression Venous Doppler Study 04/26/22 09:04 Interpretation Summary Deep veins of the lower extremities are bilaterally patent and compressible segmentally. There is no evidence of deep vein thrombosis on either side. Valvular competence appears intact within the proximal deep venous systems bilaterally. The great saphenous veins appear bilaterally patent and compressible segmentally. ____ Ordering Physician: Cat Tripathi Performed By: Chad Lyon RVT Physical Exam Const alert, oriented x3, no apparent distress and well nourished Constitutional Narrative: Morbidly obese white female sitting up in a chair at the bedside, currently on no blow-by oxygen through her tracheostomy, appears comfortable nontoxic Exam Limitations: no limitations Nutritional Appearance: morbidly obese HEENT head/scalp atraumatic and moist oral mucous membranes HEENT Narrative: Mallampati is 2-3, small stoma anterior neck with trachea midl ine and no thyroid enlargement noted Head and Scalp: normocephalic Resp normal respiratory effort, no retractions, no use of accessory muscles and clear to auscultation bilaterally Resp Narrative: Tachypnea has resolved, wheezing has resolved, lung sounds are diffusely diminished but clear otherwise Auscultation: Negative for crackles, rales, rhonchi or wheezes Cardio regular rate, regular rhythm, S1 normal heart sound, S2 normal heart sound, no murmurs, no rub, no gallops, no clicks and no JVD GI normal to inspection, nondistended, normoactive bowel sounds, soft to palpation, non-tender and non-distended Extremity Extremity Narrative: Trace bilateral lower extremity edema, no cyanosis or clubbing Peripheral Pulses: Yes pulses 2+ throughout Neuro oriented x3, CN's II-XII intact bilaterally, moves all extremities and no focal motor deficits Sensorium / Orientation: awake and alert Speech: speech normal Psych affect normal Assessment & Plan Assessment/Plan (1) COPD exacerbation: (2) Morbid obesity: PLAN: Acute hypoxic respiratory failure secondary to COPD exacerbation -Resolving -Had been requiring 6 L of oxygen with trach collar -Weaning as able Per emergency room doctor at outside facility patient had oxygen saturation in the 80s on room air, tachypnea, tachycardia, wheezing -Covid -19 PCR; and influenza PCR from outside hospital was negative -Viral PCR here was negative -A CT angio chest at outside hospital was unremarkable -Continue Solu-Medrol -Continue nebulizer treatments -Anticipate discharge in the next 24 hours as long as patient continues to improve clinically -Patient has seen Dr. Dillon previously and will refer for an appointment after discharge -Last appointment was in 2019 HEIDI on CKD stage IIIb -Baseline serum creatinine appears to be 1.1-1.2 -Serum creatinine was 1.9 on admission -IV fluids given and HEIDI has now resolved with a current serum creatinine of 1.04 -V fluids discontinued -Continue to hold meloxicam until discharge -Losartan/HCTZ were held as well Hypertension -Losartan/HCTZ on hold secondary to HEIDI and soft blood pressures on presentation -Amlodipine discontinued secondary to lower extremity edema -Coreg 6.25 twice daily initiated today -Continue to monitor pressures and reinitiate home losartan HCTZ as appropriate Hyperlipidemia -Continue home atorvastatin Hypothyroidism -Continue home levothyroxine -TSH 0.75 GERD -Continue omeprazole -Continue home Carafate History of laryngeal cancer -In remission -Follows as an outpatient Morbid obesity -BMI: 47.7 kg/m? -Complicates treatment, prognosis, outcomes -Recommend weight loss Depression -Continue home sertraline DVT prophylaxis -Continue subcu Lovenox CODE STATUS -Full code Charges/Coding Visit Charges Inpatient E&M: 77457 Subs Hosp L2
[2022-04-27] MEDS: 0.9% Saline Lock 10 ML Syringe IV (13:40)
--- NOTE | 2022-04-27 15:28 | CASEMGMT ---
RN CM NOTE: Per Dr Tripathi, plans are to discharge pt home on inhalers, not nebulizer tx's and recommended pt f/u w/[facility] as an out-pt and can address request for nebulizer at that time. Pt made aware and voices understanding. Scripts obtained for hospital bed and suction machine and faxed to [facility] at this time. Call placed to Chris @ [facility] and made aware anticipate pt will be discharging home tomorrow. Edwardo MARCOSN RN CM
[2022-04-27] MEDS: HYDROcodone Bitartrate/Apap 5/325 Tablet PO (16:20)
[2022-04-27] MEDS: Atorvastatin Calcium 10 MG Tablet PO (22:06)
[2022-04-27] MEDS: MELATONIN 3 MG TABLET PO (22:07)
[2022-04-27] MEDS: Ipratropium/Albuterol Sulfate 3 ML AMPUL.NEB INHALATION (22:28)
[2022-04-28] MEDS: HYDROcodone Bitartrate/Apap 5/325 Tablet PO ×2 (00:58→09:03)
[2022-04-28 04:08] VITALS: BP 132/99; PULSE 93; RESP 18; TEMP 36.6; O2SAT 95
[2022-04-28] MEDS: Sucralfate 1 GM Tablet PO ×2 (06:03→12:29)
[2022-04-28] MEDS: Levothyroxine 137 MCG Tablet PO (06:03)
[2022-04-28] MEDS: 0.9% Saline Lock 10 ML Syringe IV ×2 (06:03→12:29)
[2022-04-28] MEDS: Liothyronine 5 MCG Tablet PO (06:03)
[2022-04-28] MEDS: Pantoprazole Sodium 40 MG Tablet PO (09:02)
[2022-04-28] MEDS: Gabapentin 300 MG Capsule PO (09:02)
[2022-04-28] MEDS: Nystatin Powder 15gm Bottle 1 APPLIC TOPICAL (09:02)
[2022-04-28] MEDS: Enoxaparin 40 MG/0.4 ML Syringe SC (09:02)
[2022-04-28] MEDS: Carvedilol 6.25 MG Tablet PO (09:02)
[2022-04-28] MEDS: Sertraline 50 MG Tablet 75 MG PO (09:02)
[2022-04-28 09:59] VITALS: PULSE 120
[2022-04-28 10:08] VITALS: BP 129/83; PULSE 108; RESP 18; TEMP 36.8; O2SAT 95
[2022-04-28 10:46] VITALS: RESP 21
[2022-04-28] MEDS: Ipratropium/Albuterol Sulfate 3 ML AMPUL.NEB INHALATION (10:46)
--- NOTE | 2022-04-28 11:01 | PCM.DC.SUM ---
Providers Date of Admission: 04/26/22 Date of Discharge: 04/28/22 Primary Care Physician: CHARY Nava Reason For Visit: COPD, RESPIRATORY FAILURE Diagnosis Discharge Diagnosis (1) COPD exacerbation: Status: Chronic Code(s): J44.1 - Chronic obstructive pulmonary disease with (acute) exacerbation (2) Morbid obesity: Status: Acute Code(s): E66.01 - Morbid (severe) obesity due to excess calories Medications at Discharge Home Medications omeprazole 40 mg capsule,delayed release 40 mg PO DAILY 09/09/19 atorvastatin 10 mg PO QHS 01/11/21 sertraline 75 mg PO DAILY 01/11/21 levothyroxine 137 mcg PO DAILY 10/04/21 liothyronine 5 mcg PO BID 10/04/21 losartan-hydrochlorothiazide 1 tab PO DAILY 10/04/21 gabapentin 300 mg PO BID 11/29/21 hydrocodone-acetaminophen 1 tab PO Q8H PRN PRN 04/26/22 hydroxyzine HCl 25 mg PO 4X/DAY PRN PRN 04/26/22 meloxicam 15 mg PO DAILY 04/26/22 sucralfate 1 g PO 4X/DAY 04/26/22 albuterol sulfate [Ventolin HFA] 1 inh INHALATION Q6H PRN #8.5 g 04/28/22 carvedilol 6.25 mg PO BID #60 tab 04/28/22 prednisone 10 mg PO DAILY #40 tab 04/28/22 Hospital Course Operations None Procedures 2-D Echocardiogram and - (Lower extremity Dopplers) Summary of Care Provided Minutes Spent on Discharge: 39 Hospital Course: Mrs. Matthews is a 51-year-old white female who presented to the emergency department at an outside hospital on 04/25/2022 with an approximate 1 week history of worsening shortness of breath. The patient does have a known history of tobacco and alcohol abuse. She is also had previous laryngeal cancer and is status post chemoradiation and larynx implant with chronic stoma in the anterior neck. Upon presentation she complained of shortness of breath with wheezing and intermittent cough and poor appetite. She denied any fevers or chills but did complain of some bilateral leg swelling and she states that this has been a problem for the last couple weeks. She also indicated she had an episode of hemoptysis over the weekend out of her stoma but had had no further episodes of this and had stable hemoglobin. She was transferred to [facility] for admission and required trach mask for blow-by oxygen at 28%. She initially had significant wheezing on exam and was treated with IV steroids as well as duo nebs. With her swelling we obtained bilateral lower extremity Dopplers which were negative for any clots. We also obtained an echocardiogram which was performed on 04/26/2022. Her echocardiogram showed ejection fraction of 75% with trivial mitral valve, tricuspid valve insufficiency and a right ventricular systolic pressure of 34 mmHg. She follows with Dr. Dillon from pulmonology but has not been there in some time. She improved significantly over her hospitalization indicating that at the time of discharge she was 100% better and back to her baseline. She was able to be discharged on 04/28/2022 with a steroid taper and a albuterol HFA inhaler. It was felt that possibly her lower extremity edema was related to her amlodipine so this was discontinued and she was substituted Coreg 6.25 mg p.o. twice daily in its place with improved blood pressure control. I did refer her for outpatient follow-up for her blood pressure since we did made changes in her blood pressure medications and I did ask her to please follow-up with her primary care physician in the next 1 to 2 weeks. With her chronic stoma she has ongoing needs for suctioning and this was written for at discharge and supplied through a [employer]. She also has the inability to lie flat secondary to her COPD and tracheostomy site so she was given a prescription for hospital bed so she may lie with her head of bed elevated. Her prescriptions for albuterol inhaler, Coreg, and prednisone were faxed to her local pharmacy and she was asked to follow-up with pulmonary medicine within the next month as well. She was discharged home in stable condition on 04/28/2022. Discharge diagnoses: Acute hypoxic respiratory failure secondary to acute exacerbation of COPD-resolved HEIDI-resolved CKD stage IIIb Hypertension Hyperlipidemia Hypothyroidism GERD History of laryngeal cancer Morbid obesity Depression Physical Exam Const alert, oriented x3, no apparent distress and well nourished Constitutional Narrative: Morbidly obese white female sitting up in a chair at the bedside, currently on room air, appears comfortable nontoxic, watching television General Appearance: cooperative, comfortable, well kempt, well developed and appears older than stated age Exam Limitations: no limitations Nutritional Appearance: morbidly obese HEENT normocephalic, head/scalp atraumatic, hearing grossly normal bilaterally and moist oral mucous membranes HEENT Narrative: Mallampati is 3-4, no thrush Eyes PERRL, EOMs intact bilaterally and conjunctivae normal Eyes Narrative: No scleral icterus Neck no lymphadenopathy, supple and no JVD Neck Narrative: Trachea midline, stoma in place with no drainage, no thyroid enlargement Resp normal respiratory effort, no retractions, no use of accessory muscles and clear to auscultation bilaterally Resp Narrative: Diminished diffusely but clear-wheezing has resolved Auscultation: Negative for crackles, rales, rhonchi or wheezes Cardio regular rate, regular rhythm, S1 normal heart sound, S2 normal heart sound, no murmurs, no rub, no gallops, no clicks and no JVD GI normal to inspection, nondistended, normoactive bowel sounds, soft to palpation, non-tender and non-distended Extremity Extremity Narrative: Trace bilateral lower extremity edema, no cyanosis or clubbing Skin no rashes or lesions noted, no wounds, skin turgor normal and no jaundice Neuro oriented x3, CN's II-XII intact bilaterally, moves all extremities, no focal motor deficits and no sensory deficits noted Sensorium / Orientation: awake and alert Speech: speech normal Motor Exam: strength 5/5 throughout Psych affect normal Weight / BMI Weight Weight: 118.3 kg Body Mass Index (BMI) 47.7 ABG / Lab / Microbiology Data Result Diagrams: 04/27/22 05:55 04/27/22 05:55 Microbiology: Microbiology 04/26/22 11:00 Mucosa - Nose Respiratory Panel (PCR) - Final D/C Instructions Discharge Diet: Low fat / Low cholesterol Discharge Activity: Return to Normal Activity Meaningful Use Info Meaningful Use Diagnoses (Choose all that apply): None applicable Discharge Plan Admission Admit Date/Time: 04/26/22 00:55 Primary Reason for Your Visit: COPD exacerbation Attending Provider: Cat Tripathi Primary Care Provider: Rhea Rose NP Consulting Providers: Robe Greenwood Discharge Orders/Prescriptions Prescriptions: New carvedilol 6.25 mg Tablet 6.25 mg PO BID Qty: 60 RF: 0 prednisone 10 mg tablet 10 mg PO DAILY Qty: 40 RF: 0 albuterol sulfate [Ventolin HFA] 90 mcg/actuation HFA aerosol inhaler 1 inh inhalation Q6H PRN (Reason: shortness of breath or wheezing) Qty: 8.5 RF: 0 Continued omeprazole 40 mg capsule,delayed release(DR/EC) 40 mg PO DAILY RF: 0 sertraline 50 MG tablet 75 mg PO DAILY RF: 0 atorvastatin 10 MG tablet 10 mg PO QHS RF: 0 liothyronine 5 mcg tablet 5 mcg PO BID RF: 0 losartan-hydrochlorothiazide 100-25 mg tablet 1 tab PO DAILY RF: 0 levothyroxine 112 mcg tablet 137 mcg PO DAILY RF: 0 gabapentin 100 mg Tablet 300 mg PO BID RF: 0 hydrocodone-acetaminophen 5-325 mg tablet 1 tab PO Q8H PRN PRN (Reason: Pain) RF: 0 meloxicam 15 mg tablet 15 mg PO DAILY RF: 0 sucralfate 1 gram tablet 1 g PO 4X/DAY RF: 0 hydroxyzine HCl 25 mg tablet 25 mg PO 4X/DAY PRN PRN (Reason: Anxiety) RF: 0 Discontinued albuterol sulfate 1 PUFF inhaler 2 puff INHALATION Q6H PRN PRN (Reason: Dyspnea) Qty: 1 RF: 0 amlodipine 10 mg tablet 10 mg PO DAILY RF: 0 Referrals / Follow Up: Raheem Dillon MD [STAFF PHYSICIAN] - Within 1 Month Rhea Rose NP, HUMAN RESOURCES GENERALIST-C [Primary Care Provider] - In 1 Week Disposition Disposition (needs filled in before D/C Order can be placed): Home, Self Care Charges/Coding Visit Charges Inpatient E&M: 88663 Disch Hosp
--- NOTE | 2022-04-28 12:15 | CASEMGMT ---
Addendum entered by Wang Marrufo 04/28/22 18:10: Discharge summary faxed to [facility]. Spoke w/Chris @ [facility]. He has contacted pt and has made arrangements for hospital bed, suction machine, and suction supplies to be delivered to pt's home this evening. Original Note: DANNI CHOUDHURY NOTE: Chris @ [facility] has received scripts for both hospital bed and suction machine. DANNI CHOUDHURY reviewed and confirmed supplies needed w/Chris. He is aware pt is discharging home today. He states he will contact pt and make arrangements for delivery of DME. Pt made aware. Pt aware Dr Tripathi is discharging pt home on inhalers. Pt aware she is to f/u w/Dr Dillon w/in the next month and to discuss possible nebulizer w/him. She denies further discharge planning needs or concerns. Edwardo KOHLER RN CM
== END 2022-04-28 13:13 | disposition home or self-care (01) | DRG 190 ==
PROVIDERS: Admitting Provider Hospitalist; PCP Nurse Practitioner Family; Visit Provider Internal Medicine
DX: J44.1 Chronic obstructive pulmonary disease with (acute) exacerbation (principal); J96.01 Acute respiratory failure with hypoxia; N17.9 Acute kidney failure, unspecified; Z68.42 Body mass index [BMI] 45.0-49.9, adult; Z93.0 Tracheostomy status; E66.01 Morbid (severe) obesity due to excess calories; N18.32 Chronic kidney disease, stage 3b; F10.21 Alcohol dependence, in remission; I12.9 Hypertensive chronic kidney disease with stage 1 through stage 4 chronic kidney disease, or unspecified chronic kidney disease; E78.00 Pure hypercholesterolemia, unspecified; E03.9 Hypothyroidism, unspecified; K21.9 Gastro-esophageal reflux disease without esophagitis; E78.5 Hyperlipidemia, unspecified; M79.89 Other specified soft tissue disorders; F32.A Depression, unspecified; Z79.890 Hormone replacement therapy; Z79.899 Other long term (current) drug therapy; Z85.21 Personal history of malignant neoplasm of larynx; Z87.891 Personal history of nicotine dependence
CPT/HCPCS: 36415; 80048; 84443; 85025; 87633; 93306; 93970; 94640; J7120; Q9957; A4216; C8929

== ENCOUNTER 2022-04-29 13:39 | Inpatient (IN) | payer MEDICARE, MEDICAID, SELFPAY ==
[2022-04-29] VITALS (16 sets, daily range): BP systolic 94–140; BP diastolic 64–97; PULSE 66–112; RESP 16–24; TEMP 36.6–37.2; O2SAT 92–98; BMI 50.3; BMI 47.5
--- NOTE | 2022-04-29 13:57 | EKG12_ITS ---
Test Reason : SOB Blood Pressure : / mmHG Vent. Rate : 100 BPM Atrial Rate : 100 BPM P-R Int : 130 ms QRS Dur : 086 ms QT Int : 346 ms P-R-T Axes : 079 051 052 degrees QTc Int : 446 ms Normal sinus rhythm Normal ECG Confirmed by RAMBO MERINO, CE ([id number]), commissioning editor ROSEY PARRA ([id number]) on 05/02/2022 10:47:24 AM Referred By: COMPA Confirmed By:CE RICKS MD
--- NOTE | 2022-04-29 14:05 | RAD_ITS ---
STUDY: X-RAY CHEST REASON FOR EXAM: Female, 51 years old. Technologist Notes PT HAS COPD AND THROAT CANCER, STOMA. 73% ON RA WHEN SQUAD ARRIVED Dyspnea TECHNIQUE: XR Chest 1 View COMPARISON: 11.29.18 FINDINGS: There is no demonstrated pleural abnormality. There is left mid lung and left lower lobe infiltrate / atelectasis. Normal size heart. Normal mediastinum and shaniqua. Normal visualized pulmonary arteries. There is atherosclerotic calcification of the aortic arch with tortuosity. There are diffuse degenerative changes of the visualized thoracic spine. There is degenerative osteoarthritis of the bilateral shoulders. There is no demonstrated abnormality of the visualized soft tissue structures of the upper abdomen. RAD/Chest 1 View (Portable) IMPRESSION: There is left mid lung and left lower lobe infiltrate / atelectasis. Electronically Signed: Robe Shipley MD at 14:24 EDT ,
[2022-04-29 14:10] LABS: Absolute Lymphocyte Count 0.45 X10^3/uL (0.83-4.51); Absolute Neutrophil Count 14.6 X10^3/uL (2.0-7.7); Basophil# 0.03 X10^3/uL; Basophil% 0.2 % (0-1); Hematocrit 38.3 % (37-47); Hemoglobin 12.4 g/dL (12.0-15.0); Lymphocyte # 0.45 X10^3/ul (0.83-4.51); Lymphocyte % 2.7 % (19-41); Mean Corp Hgb Conc 32.4 g/dL (32-36); Mean Corpuscular Volume 89.7 fL (81-99); Mean Platelet Vol. 9.7 fl (6.2-12.0); Monocyte# 1.01 X10^3/uL; Monocyte% 6.2 % (0-10); NRBC Flagged by Analyzer 0 % (0-5); Neutrophil # 14.59 X10^3/uL (2.7-7.7); POSITIVE DIFFERENTIAL YES; Platelet Count 277 K/mm3 (150-450); RBC Distribution Width CV 13.8 % (11.6-14.6); RBC Distribution Width SD 44.9 fl (35.1-43.9); Red Blood Count 4.27 M/mm3 (4.2-5.4); White Blood Count 16.4 K/mm3 (4.4-11.0)
[2022-04-29 14:15] LABS: Differential Indicated SCAN CRITERIA MET
--- NOTE | 2022-04-29 14:18 | EDS_ITS ---
HPI History of Present Illness Chief Complaint: Shortness of Breath Informant: patient Onset/Context/Timing Onset: Today Context: gradual Timing: Continuous Quality: Positive for Dyspnea on exertion and Orthopnea Worsened by: Lying flat Relieved by: Nothing Associated Symptoms cough; Negative for rhinorrhea, fever, sore throat, chills, clear sputum, white sputum, yellow sputum or green sputum Chest Pain: Positive for None Narrative Narrative: Patient presents with shortness of breath that became worse today. Patient was recently admitted to the hospital and was discharged yesterday. Patient states her breathing became worse today. Patient states she was unable to get set up for home oxygen when she was discharged. Patient admits to a cough but denies any sputum production. Patient denies any fevers or chills. Patient denies any chest pain. Patient denies any nausea or vomiting. Patient states her breathing is worse when she lays flat. [facility] Medical History Alcohol use Anxiety Back pain COPD (chronic obstructive pulmonary disease) Difficulty swallowing Former smoker Gastric reflux High cholesterol History of echocardiogram History of foreign body aspiration History of hiatal hernia History of pain when walking History of renal disease HTN (hypertension) Hypothyroid Influenza A Larynx cancer Leg cramps Restless legs Shortness of breath on exertion Thyroid disease Wears dentures Home Medications atorvastatin 10 mg PO QHS 01/11/21 [History Last Taken 04/25/22] sertraline 75 mg PO DAILY 01/11/21 [History Last Taken 04/25/22] levothyroxine 137 mcg PO DAILY 10/04/21 [History Last Taken 04/25/22] liothyronine 10 mcg PO DAILY 10/04/21 [History Last Taken 04/25/22] losartan-hydrochlorothiazide 1 tab PO DAILY 10/04/21 [History Last Taken 04/25/22] gabapentin 300 mg PO BID 11/29/21 [History Last Taken 04/25/22] hydrocodone-acetaminophen 1 tab PO Q8H PRN PRN 04/26/22 [History Last Taken Unknown] hydroxyzine HCl 25 mg PO 4X/DAY PRN PRN 04/26/22 [History Last Taken Unknown] meloxicam 15 mg PO DAILY 04/26/22 [History Last Taken 04/25/22] sucralfate 1 g PO 4X/DAY 04/26/22 [History Last Taken 04/25/22] albuterol sulfate [Ventolin HFA] 1 inh INHALATION Q6H PRN #8.5 g 04/28/22 [Rx Last Taken Unknown] carvedilol 6.25 mg PO BID #60 tab 04/28/22 [Rx Last Taken Unknown] prednisone 10 mg PO DAILY #40 tab 04/28/22 [Rx Last Taken Unknown] famotidine 20 mg PO DAILY 04/29/22 [History Last Taken Unknown] pregabalin 50 mg PO TID 04/29/22 [History Last Taken Unknown] Allergy/AdvReac Type Severity Reaction Status Date / Time latex Allergy BLISTERS Verified 04/29/22 13:44 Iodinated Contrast Media AdvReac Hives Verified 04/29/22 13:44 [Iodinated Contrast Media - IV Dye] morphine AdvReac Nausea/Vom/ Verified 04/29/22 13:44 Diarrhea Family History Mother CVA (cerebral vascular accident) Heart disease Hypertension Sister Cancer Surgical History History of laryngectomy Hx of cholecystectomy Hx of hernia repair Hx of hysterectomy Social History Smoking Status: Former smoker ROS ROS ED Constitutional Constitutional ED: Denies chills or fever(s) Eyes Eyes: Denies blurry vision or change in vision ENT ENT ED: Denies rhinorrhea or sore throat Cardiovascular Cardiovascular: Denies chest pain or palpitations Respiratory/Chest Respiratory/Chest: Reports cough and dyspnea Gastrointestinal Gastrointestinal: Denies nausea or vomiting Genitourinary Genitourinary ED: Denies dysuria or hematuria Musculoskeletal Musculoskeletal: Denies back pain or neck pain Integumentary Denies abscess or rash Neurologic Neurologic: Denies headache(s) or weakness Allergic/Immunologic Allergic/Immunologic ED: Denies mouth swelling or urticaria EXAM Physical Exam Const Vital Signs: 04/29/22 13:39 04/29/22 13:45 04/29/22 13:46 Temperature 98.8 F 98.8 F Temperature Source Temporal Temporal Pulse Rate 96 97 Respiratory Rate 18 16 Respiratory Effort Short of Breath Respiratory Pattern Tachypnea Blood Pressure 127/96 H 127/96 H Blood Pressure Mean 106 106 Pulse Ox 96 97 Oxygen Delivery Method Simple Mask Simple Mask Venturi Mask Oxygen Flow Rate (L/min) 10 10 99 Fraction of Inspired Oxygen (FIO2) 40 04/29/22 13:53 04/29/22 14:23 04/29/22 14:24 Temperature Temperature Source Pulse Rate 112 H Respiratory Rate 22 H Respiratory Effort Respiratory Pattern Blood Pressure Blood Pressure Mean Pulse Ox 97 98 Oxygen Delivery Method Trach Collar Venturi Mask Oxygen Flow Rate (L/min) 8 8 Fraction of Inspired Oxygen (FIO2) 35 35 04/29/22 14:39 04/29/22 15:00 Temperature 98.8 F 98.8 F Temperature Source Temporal Temporal Pulse Rate 78 103 H Respiratory Rate 16 16 Respiratory Effort Respiratory Pattern Blood Pressure 106/78 140/78 H Blood Pressure Mean 87 98 Pulse Ox 95 95 Oxygen Delivery Method Venturi Mask Venturi Mask Oxygen Flow Rate (L/min) 8 8 Fraction of Inspired Oxygen (FIO2) 35 35 Positive well nourished and well developed General Appearance ED: well developed HEENT Reports moist mucous membranes Neck supple and no JVD Neck Narrative: Tracheostomy is open and patent. Resp normal respiratory effort Auscultation: wheezes scattered wheezes and diminished lung sounds Cardio regular rate, regular rhythm and no murmurs GI normal to inspection, nondistended, normoactive bowel sounds and non-tender Palpation: soft Extremity normal to inspection General Extremety ED: Negative for edema or tenderness General Extremity: Negative for edema Neuro oriented x3, CN's II-XII intact bilaterally and no sensory deficits noted Sensorium / Orientation: alert Motor Exam: strength 5/5 throughout Psych mental status grossly normal Skin no rashes or lesions noted MDM MDM MDM Narrative Medical decision making narrative: Patient was given a DuoNeb aerosol here. Patient was given repeat albuterol aerosols. EKG was obtained. On my interpretation, it showed a normal sinus rhythm with a rate of 100. MD interval, QRS interval, and QTc intervals were all normal. [place] was normal. There are no acute ST or T wave changes. Portable chest x-ray is obtained. There is 1 view. On my interpretation, there is lingular and left lower lobe infiltrates. CBC shows a leukocytosis of 16.4. Basic metabolic profile was within normal limits. Lactate was normal. High-sensitivity troponin was normal. Blood cultures were obtained. Patient was started on Rocephin and Zithromax here. Patient is feeling somewhat better on reevaluation. Case was discussed with the hospitalist. He will admit the patient to his service. Patient understood and was agreeable with the plan. All questions were answered. Lab Data Attestation: I reviewed the patient's lab results. Labs: Laboratory Results - last 24 hr 04/29/22 04/29/22 04/29/22 13:50 13:50 13:50 WBC 16.4 H RBC 4.27 Hgb 12.4 Hct 38.3 MCV 89.7 MCH 29.0 MCHC 32.4 RDW Std Deviation 44.9 H RDW Coeff of Rosa 13.8 Plt Count 277 MPV 9.7 Immature Gran % (Auto) 1.900 H Neut % (Auto) 89.0 H Lymph % (Auto) 2.7 L [place] % (Auto) 6.2 Eos % (Auto) 0.0 Baso % (Auto) 0.2 Absolute Neuts (auto) 14.6 H Absolute Lymphs (auto) 0.45 L Nucleated RBC % 0 Differential Comment SEE COMMENT Platelet Estimate ADEQUATE RBC Morphology N CHROM Anisocytosis RARE Macrocytosis RARE Sodium 138 Potassium 3.8 Chloride 100 Carbon Dioxide 32.0 Anion Gap 6 BUN 32 H Creatinine 1.05 H Estim Creat Clear Calc 50.13 Est GFR (MDRD) Af Amer 71 Est GFR (MDRD) Non-Af 59 L BUN/Creatinine Ratio 30.5 H Glucose 102 Lactic Acid 1.1 Calcium 8.8 Troponin I High Sens 8 Radiography Diagnostic Testing: Clinical Impression(s) from Imaging Studies Chest X-Ray 04/29/22 14:05 IMPRESSION: There is left mid lung and left lower lobe infiltrate / atelectasis. Electronically Signed: Robe Shipley MD at 14:24 EDT , EKG Initial EKG: Attestation: I personally reviewed and interpreted this EKG as follows: Interpretation: Sinus Rhythm (100) and No Acute Injury Pattern Discharge Plan Triage Chief Complaint: Shortness of Breath ED Provider: Guerrero Brunson Dx/Rx/DC Orders Clinical Impression: Pneumonia, Hypoxia Prescriptions: No Action sertraline 50 MG tablet 75 mg PO DAILY RF: 0 atorvastatin 10 MG tablet 10 mg PO QHS RF: 0 liothyronine 5 mcg tablet 10 mcg PO DAILY RF: 0 losartan-hydrochlorothiazide 100-25 mg tablet 1 tab PO DAILY RF: 0 levothyroxine 112 mcg tablet 137 mcg PO DAILY RF: 0 gabapentin 100 mg Tablet 300 mg PO BID RF: 0 hydrocodone-acetaminophen 5-325 mg tablet 1 tab PO Q8H PRN PRN (Reason: Pain) RF: 0 meloxicam 15 mg tablet 15 mg PO DAILY RF: 0 sucralfate 1 gram tablet 1 g PO 4X/DAY RF: 0 hydroxyzine HCl 25 mg tablet 25 mg PO 4X/DAY PRN PRN (Reason: Anxiety) RF: 0 carvedilol 6.25 mg Tablet 6.25 mg PO BID Qty: 60 RF: 0 prednisone 10 mg tablet 10 mg PO DAILY Qty: 40 RF: 0 albuterol sulfate [Ventolin HFA] 90 mcg/actuation HFA aerosol inhaler 1 inh inhalation Q6H PRN (Reason: shortness of breath or wheezing) Qty: 8.5 RF: 0 famotidine 20 mg Tablet 20 mg PO DAILY RF: 0 pregabalin 50 mg Capsule 50 mg PO TID RF: 0 Primary Care Provider: Rhea Rose NP Referrals: Rhea Rose NP, RECRE[facility] FACILITY ATTENDANT-C [Primary Care Provider] - Disposition Disposition: [facility]
[2022-04-29] MEDS: Albuterol 2.5 MG/3 ML VIAL.NEB. INHALATION ×3 (14:23→15:47)
[2022-04-29] MEDS: Ipratropium/Albuterol Sulfate 3 ML AMPUL.NEB INHALATION (14:23)
[2022-04-29 14:25] LABS: Anion Gap 6 (5-15); BUN 32 mg/dL (7-18); BUN/Creat Ratio 30.5 RATIO (10-20); Calcium,Total 8.8 mg/dL (8.5-10.1); Chloride 100 mmol/L (98-107); Creatinine, Serum 1.05 mg/dL (0.55-1.02); EST Glomerular Filtration Rate 59 mL/min (>60); Est Glom Filt Rate - Afr Amer 71 mL/min (>60); Estimated Creatinine Clearance 50.13 ml/min; Glucose 102 mg/dL (74-106); Potassium 3.8 mmol/L (3.5-5.1); Sodium Level 138 mmol/L (136-145); Troponin-I HS 8 pg/mL (3.0-54.0)
[2022-04-29 14:43] LABS: Platelet Estimate ADEQUATE (ADEQ); Red Cell Morphology N CHROM NORMAL (NORM C&C)
[2022-04-29 14:44] LABS: Anisocytosis RARE; Macrocytosis RARE
[2022-04-29 15:10] LABS: Lactic Acid 1.1 mmol/L (0.4-1.9)
--- NOTE | 2022-04-29 15:48 | HP.PCM.HOS_ITS ---
HPI - General General Date of Admission: 04/29/22 HPI Narrative VJ MYERS, is a 51 F who presents to the hospital after discharge yesterday. She was able to get the hospital bed that was necessary for her however she has not followed up with her doctor yet to get the nebulizer and she did not require any oxygen on her previous discharge as she had maintained her oxygen sats on room air for over 24 hours. She was found to be in the 70s on presentation and is doing well currently on a blow-by mask of her tracheostomy site. Chest x-ray demonstrated left lower lobe pneumonia and she is having some left pleuritic pain, troponin was unremarkable in the ER. She is having a cough which is productive. She did receive a dose of Rocephin and azithromycin in the ER and has been taking her steroids as prescribed on discharge yesterday. [facility] Medical History (Updated 04/29/22 @ 16:38 by Sylvia Boykin) Alcohol use Anxiety Back pain Chronic pain COPD (chronic obstructive pulmonary disease) Difficulty swallowing Former smoker Gastric reflux GERD (gastroesophageal reflux disease) High cholesterol History of echocardiogram History of foreign body aspiration History of hiatal hernia History of pain when walking History of renal disease HTN (hypertension) Hypothyroid Influenza A Kidney disease Larynx cancer Leg cramps Restless legs Shortness of breath on exertion Thyroid disease Wears dentures Home Medications atorvastatin 10 mg PO QHS 01/11/21 [History Last Taken 04/25/22] sertraline 75 mg PO DAILY 01/11/21 [History Last Taken 04/25/22] levothyroxine 137 mcg PO DAILY 10/04/21 [History Last Taken 04/25/22] liothyronine 10 mcg PO DAILY 10/04/21 [History Last Taken 04/25/22] losartan-hydrochlorothiazide 1 tab PO DAILY 10/04/21 [History Last Taken 04/25/22] gabapentin 300 mg PO BID 11/29/21 [History Last Taken 04/25/22] hydrocodone-acetaminophen 1 tab PO Q8H PRN PRN 04/26/22 [History Last Taken Unknown] hydroxyzine HCl 25 mg PO 4X/DAY PRN PRN 04/26/22 [History Last Taken Unknown] meloxicam 15 mg PO DAILY 04/26/22 [History Last Taken 04/25/22] sucralfate 1 g PO 4X/DAY 04/26/22 [History Last Taken 04/25/22] albuterol sulfate [Ventolin HFA] 1 inh INHALATION Q6H PRN #8.5 g 04/28/22 [Rx Last Taken Unknown] carvedilol 6.25 mg PO BID 04/29/22 [History Last Taken 04/29/22] famotidine 20 mg PO DAILY 04/29/22 [History Last Taken Unknown] prednisone 10 mg PO DAILY 04/29/22 [History Last Taken 04/29/22] pregabalin 50 mg PO TID 04/29/22 [History Last Taken Unknown] Allergy/AdvReac Type Severity Reaction Status Date / Time latex Allergy BLISTERS Verified 04/29/22 13:44 Iodinated Contrast Media AdvReac Hives Verified 04/29/22 13:44 [Iodinated Contrast Media - IV Dye] morphine AdvReac Nausea/Vom/ Verified 04/29/22 13:44 Diarrhea Family History Mother CVA (cerebral vascular accident) Heart disease Hypertension Sister Cancer Surgical History (Updated 04/29/22 @ 16:38 by Sylvia Boykin) History of appendectomy History of laryngectomy Hx of cholecystectomy Hx of hernia repair Hx of hysterectomy Social History Smoking Status: Former smoker ROS Constitutional Constitutional: Denies chills, fatigue, fever(s) or malaise Eyes Eyes: Denies blurry vision ENT HEENT: Denies headache(s) or nasal discharge Cardiovascular Cardiovascular: Reports dyspnea on exertion; Denies chest pain or syncope Respiratory/Chest Respiratory/Chest: Reports cough; Denies shortness of breath at rest or shortness of breath with exertion Gastrointestinal Gastrointestinal: Denies constipation, diarrhea, nausea or vomiting Genitourinary Genitourinary: Denies dysuria Neurologic Neurologic: Denies focal weakness, numbness or tremor(s) Psychiatric Psychiatric: Denies anxiety or depression Vital Signs Vital Signs Vital Signs: 04/29/22 13:39 04/29/22 13:45 04/29/22 13:46 Temperature 98.8 F 98.8 F Temperature Source Temporal Temporal Pulse Rate 96 97 Respiratory Rate 18 16 Respiratory Effort Short of Breath Respiratory Pattern Tachypnea Blood Pressure 127/96 H 127/96 H Blood Pressure Mean 106 106 Pulse Ox 96 97 Oxygen Delivery Method Simple Mask Simple Mask Venturi Mask Oxygen Flow Rate (L/min) 10 10 99 Fraction of Inspired Oxygen (FIO2) 40 04/29/22 13:53 04/29/22 14:23 04/29/22 14:24 Temperature Temperature Source Pulse Rate 112 H Respiratory Rate 22 H Respiratory Effort Respiratory Pattern Blood Pressure Blood Pressure Mean Pulse Ox 97 98 Oxygen Delivery Method Trach Collar Venturi Mask Oxygen Flow Rate (L/min) 8 8 Fraction of Inspired Oxygen (FIO2) 35 35 04/29/22 14:39 04/29/22 15:00 Temperature 98.8 F 98.8 F Temperature Source Temporal Temporal Pulse Rate 78 103 H Respiratory Rate 16 16 Respiratory Effort Respiratory Pattern Blood Pressure 106/78 140/78 H Blood Pressure Mean 87 98 Pulse Ox 95 95 Oxygen Delivery Method Venturi Mask Venturi Mask Oxygen Flow Rate (L/min) 8 8 Fraction of Inspired Oxygen (FIO2) 35 35 Weight Weight: 275 lb 9.245 oz Body Mass Index (BMI) 50.3 Physical Exam Const alert, oriented x3 and no apparent distress General Appearance: cooperative HEENT normocephalic and moist oral mucous membranes Eyes PERRL, EOMs intact bilaterally and conjunctivae normal Neck supple and no JVD Resp normal respiratory effort, no retractions and no use of accessory muscles Auscultation: wheezes and diminished lung sounds; Negative for crackles, rales or rhonchi Cardio regular rhythm, S1 normal heart sound, S2 normal heart sound and no murmurs Rate: tachycardic GI soft to palpation, non-tender and non-distended; Negative for hepatosplenomegaly Extremity no clubbing, cyanosis or edema Skin no rashes or lesions noted Neuro no focal motor deficits and no sensory deficits noted Psych affect normal Appearance: appropriate Results Lab / Micro Data Result Diagrams: 04/29/22 13:50 04/29/22 13:50 Labs: Laboratory Results - last 24 hr 04/29/22 13:50: WBC 16.4 H, RBC 4.27, Hgb 12.4, Hct 38.3, MCV 89.7, MCH 29.0, MCHC 32.4, RDW Std Deviation 44.9 H, RDW Coeff of Rosa 13.8, Plt Count 277, MPV 9.7, Immature Gran % (Auto) 1.900 H, Neut % (Auto) 89.0 H, Lymph % (Auto) 2.7 L, [place] % (Auto) 6.2, Eos % (Auto) 0.0, Baso % (Auto) 0.2, Absolute Neuts (auto) 14.6 H, Absolute Lymphs (auto) 0.45 L, Nucleated RBC % 0, Differential Comment SEE COMMENT, Platelet Estimate ADEQUATE, RBC Morphology N CHROM, Anisocytosis R ARE, Macrocytosis RARE 04/29/22 13:50: Sodium 138, Potassium 3.8, Chloride 100, Carbon Dioxide 32.0, Anion Gap 6, BUN 32 H, Creatinine 1.05 H, Estim Creat Clear Calc 50.13, Est GFR (MDRD) Af Amer 71, Est GFR (MDRD) Non-Af 59 L, BUN/Creatinine Ratio 30.5 H, Glucose 102, Calcium 8.8, Troponin I High Sens 8 04/29/22 13:50: Lactic Acid 1.1 Radiology Impression Chest X-Ray 04/29/22 14:05 IMPRESSION: There is left mid lung and left lower lobe infiltrate / atelectasis. Electronically Signed: Robe Shipley MD at 14:24 EDT Reading Location ID and State: [facility] / [place] , Service support , Assessment & Plan Assessment/Plan (1) Pneumonia: (2) Hypoxia: PLAN: 1. Acute hypoxic respiratory failure secondary to a recent COPD exacerbation and community-acquired pneumonia ? She was recently admitted with acute hypoxic respiratory failure due to a COPD exacerbation she was discharged yesterday. She did have COVID PCR was done at the outside hospital on her previous admission which were negative. It was also reported that the CT angio of her chest on the outside hospital was also negative. ? She was doing well and discharged yesterday she presents back stating that she has a productive cough. On discharge yesterday she was not requiring any oxygen for over 24 hours and was stable on room air ? Checks x-ray demonstrates a left lower lobe pneumonia ? He does have a leukocytosis of 16.4 however this can be confounded by steroid use on her previous admission ? Continue with her steroid taper that she was set up to be on on discharge, as well as breathing treatments and will place her on Rocephin and azithromycin and attempt to obtain a sputum culture ? She does have a history of laryngeal cancer and has a tracheostomy status post chemoradiation and laryngectomy 2. HTN/HLD ? She did have an echocardiogram done on her previous admission which showed an EF of 75% with an RVSP of 34 mmHg ? Troponin here is negative ? She was transition from her Norvasc to Coreg which we will continue here ? Continue with Lipitor [place], hydrochlorothiazide 3. Hypothyroidism ? Stable ? Continue with her home medications 4. Anxiety/depression ? Stable ? Continue with Zoloft 5. CKD 3 a ? Creatinine seems at baseline ? We will continue to monitor, she did have a HEIDI in her previous admission DVT: Lovenox Charges/Coding Visit Charges Inpatient E&M: 29361 Init Hosp L3
[2022-04-29] MEDS: hydrOXYzine PAM 25 MG Capsule PO (17:39)
[2022-04-29] MEDS: HYDROcodone Bitartrate/Apap 5/325 Tablet PO (18:13)
[2022-04-29] MEDS: Carvedilol 6.25 MG Tablet PO (21:04)
[2022-04-29] MEDS: Atorvastatin Calcium 10 MG Tablet PO (21:04)
[2022-04-29] MEDS: Sucralfate 1 GM Tablet PO (21:04)
[2022-04-29] MEDS: Gabapentin 300 MG Capsule PO (21:04)
[2022-04-29] MEDS: MELATONIN 3 MG TABLET PO (21:05)
[2022-04-30] VITALS (33 sets, daily range): BP systolic 75–118; BP diastolic 54–82; PULSE 66–130; RESP 10–30; TEMP 36.6–37.1; O2SAT 86–100
--- NOTE | 2022-04-30 04:36 | NURSING ---
Notified RT that pt was having trouble sustaining oxygen saturation with trach collar, satting around 86-87%. RT at bedside to evaluate pt now.
[2022-04-30] MEDS: Albuterol 2.5 MG/3 ML VIAL.NEB. INHALATION (05:35)
[2022-04-30] MEDS: Acetylcysteine 800 MG/4 ML VIAL.NEB. 400 MG INHALATION (05:35)
[2022-04-30] MEDS: Ipratropium/Albuterol Sulfate 3 ML AMPUL.NEB INHALATION ×5 (05:35→19:13)
[2022-04-30] MEDS: LORazepam 2 MG/ML Syringe 1 MG IV (05:36)
--- NOTE | 2022-04-30 05:36 | RAD_ITS ---
STUDY: X-RAY CHEST REASON FOR EXAM: Female, 51 years old. Shortness of breath TECHNIQUE: Single AP portable view of the chest. COMPARISON: 04/29/2022. FINDINGS: Left midlung infiltrate increased since previous examination. There is no definite pleural effusions. Normal size heart. Normal mediastinum and shaniqua. Normal visualized pulmonary arteries. Normal visualized aortic arch and descending thoracic aorta. Normal visualized thoracic spine. Normal visualized ribs, clavicles, and shoulders. There is no demonstrated abnormality of the visualized soft tissue structures of the upper abdomen. RAD/Chest 1 View (Portable) IMPRESSION: Left midlung infiltrate concerning for pneumonia increased since previous exam. Follow-up exam until resolution is recommended. Electronically Signed: Chris Hdez MD at 10:17 EDT ,
--- NOTE | 2022-04-30 06:32 | MDS.RN ---
0500 fellow RN notified this RN of pt stating she was very anxious. This RN walks into pt's room to find pt struggling to breathe with oxygen saturations dropping. RT also comes into room and says pt probably has a mucous plug. Pt is in distress, lips turning blue, oxygen saturation dropping as low as 20%, pt still able to communicate. RT attempts to suction pt's stoma multiple times, pt still struggling, but oxygen saturation improving slightly. Rapid Response called. See rapid response documentation. 0545 pt then transferred to ICU. 0600 This RN calls pt's mother Abby to notify her of pt's transfer to ICU, all questions answered. Pt's belongings brought up to pt's new room ICU4.
--- NOTE | 2022-04-30 06:37 | PN_ITS ---
Progress Note Rapid Response Note Patient was rapid response for oxygen saturation of 28% per nurses report. Respiratory good therapist diligently suctioned patient for suspected mucous plugs. Patient giving a DuoNeb and Mucinex. Patient very rhonchorous on examination and with tachycardia and tachypnea. Patient with tracheostomy without any tracheal tube Discussed case with spoilage worker who gave recommendations. Transfer patient to the intensive care unit. Finishing Area Operator consult. With continuous suction and coughing patient oxygen saturation improved to more than 90%. Patient's worsening symptoms may be only from a mucous plug on top of her pneumonia and COPD as the patient that she has been treated for. However with her worsening symptoms will broaden antibiotics from ceftriaxone to Zosyn. Azithromycin continued. MRSA nasal screen ordered. We will continue p.o. steroids as patient has improved. CBC and BMP ordered
[2022-04-30 07:04] LABS: Absolute Lymphocyte Count 0.27 X10^3/uL (0.83-4.51); Absolute Neutrophil Count 12.6 X10^3/uL (2.0-7.7); Basophil# 0.01 X10^3/uL; Basophil% 0.1 % (0-1); Eosinophil# 0.02 X10^3/uL; Eosinophils% 0.1 % (0-5); Hematocrit 35.9 % (37-47); Hemoglobin 11.4 g/dL (12.0-15.0); Lymphocyte # 0.27 X10^3/ul (0.83-4.51); Mean Corp Hgb Conc 31.8 g/dL (32-36); Mean Corpuscular Volume 91.3 fL (81-99); Mean Platelet Vol. 10.1 fl (6.2-12.0); Monocyte# 0.49 X10^3/uL; Monocyte% 3.6 % (0-10); NRBC Flagged by Analyzer 0.1 % (0-5); Neutrophil # 12.57 X10^3/uL (2.7-7.7); POSITIVE DIFFERENTIAL YES; Platelet Count 216 K/mm3 (150-450); RBC Distribution Width CV 14.3 % (11.6-14.6); RBC Distribution Width SD 48.2 fl (35.1-43.9); Red Blood Count 3.93 M/mm3 (4.2-5.4); White Blood Count 13.5 K/mm3 (4.4-11.0)
[2022-04-30 07:10] LABS: Differential Indicated SCAN CRITERIA MET
[2022-04-30 07:13] LABS: Anion Gap 5 (5-15); BUN 34 mg/dL (7-18); BUN/Creat Ratio 25.8 RATIO (10-20); Calcium,Total 8.3 mg/dL (8.5-10.1); Chloride 99 mmol/L (98-107); Creatinine, Serum 1.32 mg/dL (0.55-1.02); EST Glomerular Filtration Rate 45 mL/min (>60); Est Glom Filt Rate - Afr Amer 54 mL/min (>60); Estimated Creatinine Clearance 39.88 ml/min; Glucose 138 mg/dL (74-106); Potassium 3.5 mmol/L (3.5-5.1); Sodium Level 137 mmol/L (136-145)
[2022-04-30 07:26] LABS: Differential Comment SCANNED
--- NOTE | 2022-04-30 07:56 | CON.PCM.CC_ITS ---
Assessment & Plan Assessment/Plan (1) Pneumonia: (2) Hypoxia: (3) Larynx cancer: (4) Multiple tracheobronchial mucus plugs: (5) Morbid obesity: PLAN: RECOMMENDATIONS: 1. 6.5 endotracheal tube and size 4 tracheostomy to the bedside 2. Continue heated humidification 3. Consult ENT for possible dilation 4. Expand antibiotics given positive blood cultures 5. Wean oxygen as tolerated 6. Avoid opiates and anxiolytics if possible IMPRESSIONS: 1. Acute hypoxic respiratory failure secondary to a recent COPD exacerbation and community-acquired pneumonia Patient with left lower lobe infiltrate, gram-positive cocci in clusters on blood cultures and repeated mucous plugging. Unclear if patient requires dilation of her stoma. ENT will be consulted. We will continue with aggressive pulmonary toileting. Small suction catheters, tracheostomy and endotracheal tube will be at the bedside. Given patient's history of laryngectomy, acute worsening in respiratory status will have to be through the stoma. Supplies will be placed at the bedside. Patient should be monitored in the intensive care unit until secretions improve. MRSA probe is pending. If positive, vancomycin will need to be added. Staph pneumonia does tend to make significant secretions. Patient is on Mucinex and heated humidification. Dr. Todd was called and case was discussed. He will evaluate the patient this morning. 2. CKD stage IIIa Patient with previous acute kidney injury. It appears baseline is appr oximately 1. Okay to use IV fluids to help with secretion viscosity. Patient will be at risk for flash pulmonary edema given diastolic dysfunction on recent echocardiogram. 3. HTN/HLD/hypothyroidism/morbid obesity/anxiety/depression Complicates care, management, recovery and prognosis. Likely okay to continue with baseline medications. TIME: 32 minutes of critical care time spent addressing patient's acute hypoxic respiratory failure, mucous plugging, review of all data and collaboration with care team HPI Consult Data Date of Consult: 04/30/22 HPI Narrative HPI Narrative: VJ MYERS is a 51 F, with past medical history listed below, who presents to [facility] on 04/29/2022 secondary to worsening shortness of breath. Patient was recently admitted at [facility] and discharged on the day prior to presentation. Patient states her br eathing acutely became worse, so she called EMS for evaluation. Patient had reported a cough, but no sputum production. No fever or chills have been reported. Patient had denied any nausea or vomiting. Patient did believe that lying flat made her breathing worse. Patient does have a history of a laryngectomy. In the ER, patient was afebrile, but tachypneic at 22 breaths/min. Patient was normotensive but did have episodes of tachycardia. Laboratory work-up showed a leukocytosis of 16.4 with a hemoglobin of 12.4. Creatinine was 1.05 and lactate was 1.1. Chest x-ray showed left lung infiltrate versus atelectasis. Given patient's leukocytosis, patient was given Rocephin, Zithromax and pancultured. Patient's hypoxia significantly improved with suctioning, so she was admitted to the [facility] unit for further evaluation. This morning at approximately 6 AM, the hospitalist was urgently called to the patient's bedside. Patient reportedly was saturating in the 20s and cyanotic. I was called emergently for recommendations and asked to come in for evaluation. Patient did receive aggressive suctioning with respiratory reporting that only a 10 [place] suction catheter could be passed resulting in copious secretions. Patient was also given Ativan to help with respiratory dynamics. By time of my arrival, patient was saturating 100% on 70% trach mask. Patient was able to open her eyes for brief periods of time and follow commands. Patient was not able to provide any additional history. Review of the medical record is that patient has a history of laryngeal cancer status post laryngectomy by Dr. Muhammad. Patient is also had a complication of esophageal retention recently. It does not appear the Dr. Muhammad was made aware of the repeat hospitalization. Nursing has reported that blood cultures have come back positive with gram-positive cocci in clumps. No significant fever or hypotension were noted overnight. Unable to obtain review of systems secondary to patient receiving Ativan. [facility] Medical History Alcohol use Anxiety Back pain Chronic pain COPD (chronic obstructive pulmonary disease) Difficulty swallowing Former smoker Gastric reflux GERD (gastroesophageal reflux disease) High cholesterol History of echocardiogram History of foreign body aspiration History of hiatal hernia History of pain when walking History of renal disease HTN (hypertension) Hypothyroid Influenza A Kidney disease Larynx cancer Leg cramps Restless legs Shortness of breath on exertion Thyroid disease Wears dentures Home Medications atorvastatin 10 mg PO QHS 01/11/21 [History Last Taken 04/25/22] sertraline 75 mg PO DAILY 01/11/21 [History Last Taken 04/29/22] levothyroxine 137 mcg PO DAILY 10/04/21 [History Last Taken 04/29/22] liothyronine 10 mcg PO DAILY 10/04/21 [History Last Taken 04/29/22] losartan-hydrochlorothiazide 1 tab PO DAILY 10/04/21 [History Last Taken 04/29/22] gabapentin 300 mg PO BID 11/29/21 [History Last Taken 04/29/22] hydrocodone-acetaminophen 1 tab PO Q8H PRN PRN 04/26/22 [History Last Taken 04/29/22] hydroxyzine HCl 25 mg PO 4X/DAY PRN PRN 04/26/22 [History Last Taken Unknown] meloxicam 15 mg PO DAILY 04/26/22 [History Last Taken 04/25/22] sucralfate 1 g PO 4X/DAY 04/26/22 [History Last Taken 04/29/22] albuterol sulfate [Ventolin HFA] 1 inh INHALATION Q6H PRN #8.5 g 04/28/22 [Rx Last Taken Unknown] carvedilol 6.25 mg PO BID 04/29/22 [History Last Taken 04/29/22] famotidine 20 mg PO DAILY 04/29/22 [History Last Taken 04/29/22] prednisone 10 mg PO DAILY 04/29/22 [History Last Taken 04/29/22] Allergy/AdvReac Type Severity Reaction Status Date / Time latex Allergy BLISTERS Verified 04/29/22 13:44 Iodinated Contrast Media AdvReac Hives Verified 04/29/22 13:44 [Iodinated Contrast Media - IV Dye] morphine AdvReac Nausea/Vom/ Verified 04/29/22 13:44 Diarrhea Family History Mother CVA (cerebral vascular accident) Heart disease Hypertension Sister Cancer Surgical History History of appendectomy History of laryngectomy Hx of cholecystectomy Hx of hernia repair Hx of hysterectomy Social History Smoking Status: Former smoker ROS ROS Narrative See HPI Physical Exam Const Constitutional Narrative: Slightly increased work of breathing. Opens eyes to voice General Appearance: lethargic Nutritional Appearance: morbidly obese HEENT normocephalic and moist oral mucous membranes Eyes PERRL, EOMs intact bilaterally and conjunctivae normal Neck supple and no JVD Resp normal respiratory effort, no retractions and no use of accessory muscles Resp Narrative: Rhonchi improved following suctioning Auscultation: rhonchi, wheezes and diminished lung sounds; Negative for crackles or rales Cardio regular rhythm, S1 normal heart sound, S2 normal heart sound and no murmurs Rate: tachycardic GI soft to palpation, non-tender and non-distended; Negative for hepatosplenomegaly Extremity no clubbing, cyanosis or edema Skin no rashes or lesions noted Neuro no focal motor deficits and no sensory deficits noted Psych affect normal Appearance: appropriate Lab / Micro Data Result Diagrams: 04/30/22 06:53 04/30/22 06:53 Labs: Laboratory Results - last 24 hr 04/29/22 13:50: WBC 16.4 H, RBC 4.27, Hgb 12.4, Hct 38.3, MCV 89.7, MCH 29.0, MCHC 32.4, RDW Std Deviation 44.9 H, RDW Coeff of Rosa 13.8, Plt Count 277, MPV 9.7, Immature Gran % (Auto) 1.900 H, Neut % (Auto) 89.0 H, Lymph % (Auto) 2.7 L, [place] % (Auto) 6.2, Eos % (Auto) 0.0, Baso % (Auto) 0.2, Absolute Neuts (auto) 14.6 H, Absolute Lymphs (auto) 0.45 L, Nucleated RBC % 0, Differential Comment SEE COMMENT, Platelet Estimate ADEQUATE, RBC Morphology N CHROM, Anisocytosis RARE, Macrocytosis RARE 04/29/22 13:50: Sodium 138, Potassium 3.8, Chloride 100, Carbon Dioxide 32.0, Anion Gap 6, BUN 32 H, Creatinine 1.05 H, Estim Creat Clear Calc 50.13, Est GFR (MDRD) Af Amer 71, Est GFR (MDRD) Non-Af 59 L, BUN/Creatinine Ratio 30.5 H, Glucose 102, Calcium 8.8, Troponin I High Sens 8 04/29/22 13:50: Lactic Acid 1.1 04/30/22 06:53: WBC 13.5 H, RBC 3.93 L, Hgb 11.4 L, Hct 35.9 L, MCV 91.3, MCH 29.0, MCHC 31.8 L, RDW Std Deviation 48.2 H, RDW Coeff of Rosa 14.3, Plt Count 216, MPV 10.1, Immature Gran % (Auto) 1.200 H, Neut % (Auto) 93.0 H, Lymph % (Auto) 2.0 L, [place] % (Auto) 3.6, Eos % (Auto) 0.1, Baso % (Auto) 0.1, Absolute Neuts (auto) 12.6 H, Absolute Lymphs (auto) 0.27 L, Nucleated RBC % 0.1, Differential Comment SCANNED 04/30/22 06:53: Sodium 137, Potassium 3.5, Chloride 99, Carbon Dioxide 33.0 H, Anion Gap 5, BUN 34 H, Creatinine 1.32 H, Estim Creat Clear Calc 39.88, Est GFR (MDRD) Af Amer 54 L, Est GFR (MDRD) Non-Af 45 L, BUN/Creatinine Ratio 25.8 H, Glucose 138 H, Calcium 8.3 L Radiology Impression Chest X-Ray 04/29/22 14:05 IMPRESSION: There is left mid lung and left lower lobe infiltrate / atelectasis. Electronically Signed: Robe Shipley MD at 14:24 EDT Reading Location ID and State: [facility] / [place] , Service support , Charges/Coding Procedures Hospitalists Procedures: [id number] [facility] Care 1st Hr
[2022-04-30 08:23] LABS: Probe Check PASS
[2022-04-30 08:25] LABS: M R Staph aureus DNA By PCR POSITIVE (Negative)
[2022-04-30] MEDS: Sertraline 50 MG Tablet 75 MG PO (09:27)
[2022-04-30] MEDS: Gabapentin 300 MG Capsule PO ×2 (09:27→20:16)
[2022-04-30] MEDS: Liothyronine 5 MCG Tablet PO ×2 (09:28→17:04)
[2022-04-30] MEDS: guaiFENesin 1,200 MG Tablet 1200 MG PO ×2 (09:28→20:16)
[2022-04-30] MEDS: Meloxicam 15 MG Tablet PO (09:28)
[2022-04-30] MEDS: Carvedilol 6.25 MG Tablet PO (09:28)
[2022-04-30] MEDS: Famotidine 20 MG Tablet PO (09:28)
[2022-04-30] MEDS: Levothyroxine 137 MCG Tablet PO (09:28)
[2022-04-30] MEDS: Losartan Potassium 100 MG Tablet PO (09:28)
[2022-04-30] MEDS: Sucralfate 1 GM Tablet PO ×4 (09:28→20:16)
[2022-04-30] MEDS: hydroCHLOROthiazide 25 MG Tablet PO (09:28)
[2022-04-30] MEDS: predniSONE 20 MG Tablet 40 MG PO (09:29)
--- NOTE | 2022-04-30 09:56 | PN.HOSP_ITS ---
Subjective Subjective Need to be transferred to the ICU overnight secondary to hypoxia. She is producing copious amounts of mucus therefore we will have ENT come and evaluate her for scope for evaluation for possible structure. Sputum culture sent Objective Data Objective Data Vital Signs: Vital Signs Temp Pulse Resp BP Pulse Ox 97.9 F 110 H 20 H 96/59 L 99 04/30/22 06:00 04/30/22 07:06 04/30/22 07:06 04/30/22 07:00 04/30/22 07:06 Oxygen Flow Rate (L/min) 8 Oxygen Delivery Method Trach Collar Weight: 260 lb 2.327 oz Body Mass Index (BMI) 47.5 Intake & Output: Intake and Output for Last 24 Hours 04/29/22 04/30/22 05/01/22 03:59 03:59 03:59 Intake Total 505 / 505 Balance 505 / 505 Lab / Micro Data Result Diagrams: 04/30/22 06:53 04/30/22 06:53 Labs: Laboratory Results - last 24 hr 04/29/22 13:50: WBC 16.4 H, RBC 4.27, Hgb 12.4, Hct 38.3, MCV 89.7, MCH 29.0, MCHC 32.4, RDW Std Deviation 44.9 H, RDW Coeff of Rosa 13.8, Plt Count 277, MPV 9.7, Immature Gran % (Auto) 1.900 H, Neut % (Auto) 89.0 H, Lymph % (Auto) 2.7 L, [place] % (Auto) 6.2, Eos % (Auto) 0.0, Baso % (Auto) 0.2, Absolute Neuts (auto) 14.6 H, Absolute Lymphs (auto) 0.45 L, Nucleated RBC % 0, Differential Comment SEE COMMENT, Platelet Estimate ADEQUATE, RBC Morphology N CHROM, Anisocytosis RARE, Macrocytosis RARE 04/29/22 13:50: Sodium 138, Potassium 3.8, Chloride 100, Carbon Dioxide 32.0, Anion Gap 6, BUN 32 H, Creatinine 1.05 H, Estim Creat Clear Calc 50.13, Est GFR (MDRD) Af Amer 71, Est GFR (MDRD) Non-Af 59 L, BUN/Creatinine Ratio 30.5 H, Glucose 102, Calcium 8.8, Troponin I High Sens 8 04/29/22 13:50: Lactic Acid 1.1 06/11/22 06:38: MRSA (PCR) POSITIVE H 04/30/22 06:53: WBC 13.5 H, RBC 3.93 L, Hgb 11.4 L, Hct 35.9 L, MCV 91.3, MCH 29.0, MCHC 31.8 L, RDW Std Deviation 48.2 H, RDW Coeff of Rosa 14.3, Plt Count 216, MPV 10.1, Immature Gran % (Auto) 1.200 H, Neut % (Auto) 93.0 H, Lymph % (Auto) 2.0 L, [place] % (Auto) 3.6, Eos % (Auto) 0.1, Baso % (Auto) 0.1, Absolute Neuts (auto) 12.6 H, Absolute Lymphs (auto) 0.27 L, Nucleated RBC % 0.1, Differential Comment SCANNED 04/30/22 06:53: Sodium 137, Potassium 3.5, Chloride 99, Carbon Dioxide 33.0 H, Anion Gap 5, BUN 34 H, Creatinine 1.32 H, Estim Creat Clear Calc 39.88, Est GFR (MDRD) Af Amer 54 L, Est GFR (MDRD) Non-Af 45 L, BUN/Creatinine Ratio 25.8 H, Glucose 138 H, Calcium 8.3 L Radiography Diagnostic Testing: Radiology Impression Chest X-Ray 04/29/22 14:05 IMPRESSION: There is left mid lung and left lower lobe infiltrate / atelectasis. Electronically Signed: Robe Shipley MD at 14:24 EDT Reading Location ID and State: [facility] / [place] , Service support , Physical Exam Const alert, oriented x3 and no apparent distress General Appearance: cooperative HEENT normocephalic and moist oral mucous membranes Eyes PERRL, EOMs intact bilaterally and conjunctivae normal Neck supple and no JVD Resp normal respiratory effort, no retractions and no use of accessory muscles Auscultation: rhonchi, wheezes and diminished lung sounds; Negative for crackles or rales Cardio regular rhythm, S1 normal heart sound, S2 normal heart sound and no murmurs Rate: tachycardic GI soft to palpation, non-tender and non-distended; Negative for hepatosplenomegaly Extremity no clubbing, cyanosis or edema Skin no rashes or lesions noted Neuro no focal motor deficits and no sensory deficits noted Psych affect normal Appearance: appropriate Assessment & Plan Assessment/Plan (1) Pneumonia: (2) Hypoxia: PLAN: 1. Acute hypoxic respiratory failure secondary to a recent COPD exacerbation and community-acquired pneumonia with mucous plugging ? She was recently admitted with acute hypoxic respiratory failure due to a COPD exacerbation she was discharged yesterday. She did have COVID PCR was done at the outside hospital on her previous admission which were negative. It was also reported that the CT angio of her chest on the outside hospital was also negative. ? She was doing well and discharged yesterday she presents back stating that she has a productive cough. On discharge yesterday she was not requiring any oxygen for over 24 hours and was stable on room air ? Checks x-ray demonstrates a left lower lobe pneumonia ? He does have a leukocytosis of 16.4 however this can be confounded by steroid use on her previous admission ? Continue with her steroid taper that she was set up to be on on discharge, as well as breathing treatments and will place her on Rocephin and azithromycin and attempt to obtain a sputum culture ? We will consult ENT for evaluation of her tracheostomy given the copious amounts of mucus that is being suctioned. Appreciate pulmonology assistance ? She does have a history of laryngeal cancer and has a tracheostomy status post chemoradiation and laryngectomy 2. HTN/HLD ? She did have an echocardiogram done on her previous admission which showed an EF of 75% with an RVSP of 34 mmHg ? Troponin here is negative ? She was transition from her [place] to [facility] which we will continue here ? Continue with Lipitor, losartan?hydrochlorothiazide 3. Hypothyroidism ? Stable ? Continue with her home medications 4. Anxiety/depression ? Stable ? Continue with Zoloft 5. CKD 3 a ? Creatinine seems at baseline ? We will continue to monitor, she did have a HEIDI in her previous admission DVT: Lovenox Charges/Coding Visit Charges Inpatient E&M: 70002 Subs Hosp L2
--- NOTE | 2022-04-30 10:20 | PCM.RX.CS ---
Consult Pharmacy has been consulted to manage selected antiobiotic: Vancomycin Type of Consult: New start Prior Doses of Antibiotics Received/Current Regimen: Medications Vancomycin HCl 2,000 mg/ (Sodium Chloride) 540 mls @ 250 mls/hr IV X1 ONE Stop: 04/30/22 11:39 Last Admin: 04/30/22 09:48 Dose: 250 mls/hr Documented by: Labs: Sodium 137 mmol/L (136-145) 04/30/22 06:53 Potassium 3.5 mmol/L (3.5-5.1) 04/30/22 06:53 Chloride 99 mmol/L (98-107) 04/30/22 06:53 Carbon Dioxide 33.0 mmol/L (21.0-32.0) H 04/30/22 06:53 Anion Gap 5 (5-15) 04/30/22 06:53 BUN 34 mg/dL (7-18) H 04/30/22 06:53 Creatinine 1.32 mg/dL (0.55-1.02) H 04/30/22 06:53 Est GFR (MDRD) Af Amer 54 mL/min (>60) L 04/30/22 06:53 Est GFR (MDRD) Non-Af 45 mL/min (>60) L 04/30/22 06:53 BUN/Creatinine Ratio 25.8 RATIO (10-20) H 04/30/22 06:53 Glucose 138 mg/dL (74-106) H 04/30/22 06:53 Weight used for dosin kg Estimated Creatinine Clearance: 40 Goal Trough: 15-20 mcg/mL Pharmacy Plan for Drug Dosinmg given, 1000mg IV q12h with trough prior to 4th dose per policy. Pharmacy Service will continue to monitor and adjust dosing as required. Follow-Up Labs: Trough Vancomycin - 05/01 @ 2130
[2022-04-30] MEDS: Enoxaparin 40 MG/0.4 ML Syringe SC (11:09)
--- NOTE | 2022-04-30 11:13 | CON.PCM_ITS ---
Assessment & Plan Assessment/Plan (1) Dyspnea: QUALIFIERS: Dyspnea type: dyspnea on exertion Qualified Code(s): R06.09 - Other forms of dyspnea PLAN: 51 year old female with laryngectomy stoma, admitted for pneumonia -scope exam of trachea unremarkable. no stenosis, plugs or significant findings. -continue current care HPI Consult Data Date of Consult: 04/30/22 HPI Narrative HPI Narrative: VJ MYERS, is a 51 F s/p laryngectomy, admitted for respiratory failure and pneumonia. subsequent mucous plugging last night with significant desaturation. saturations into the 90s after aggressive suctioning; unremarkable since. doing well with trach collar, 93% 02 saturation. [facility] Medical History Alcohol use Anxiety Back pain Chronic pain COPD (chronic obstructive pulmonary disease) Difficulty swallowing Former smoker Gastric reflux GERD (gastroesophageal reflux disease) High cholesterol History of echocardiogram History of foreign body aspiration History of hiatal hernia History of pain when walking History of renal disease HTN (hypertension) Hypothyroid Influenza A Kidney disease Larynx cancer Leg cramps Restless legs Shortness of breath on exertion Thyroid disease Wears dentures Home Medications atorvastatin 10 mg PO QHS 01/11/21 [History Last Taken 04/25/22] sertraline 75 mg PO DAILY 01/11/21 [History Last Taken 04/29/22] levothyroxine 137 mcg PO DAILY 10/04/21 [History Last Taken 04/29/22] liothyronine 10 mcg PO DAILY 10/04/21 [History Last Taken 04/29/22] losartan-hydrochlorothiazide 1 tab PO DAILY 10/04/21 [History Last Taken 04/29/22] gabapentin 300 mg PO BID 11/29/21 [History Last Taken 04/29/22] hydrocodone-acetaminophen 1 tab PO Q8H PRN PRN 04/26/22 [History Last Taken 04/29/22] hydroxyzine HCl 25 mg PO 4X/DAY PRN PRN 04/26/22 [History Last Taken Unknown] meloxicam 15 mg PO DAILY 04/26/22 [History Last Taken 04/25/22] sucralfate 1 g PO 4X/DAY 04/26/22 [History Last Taken 04/29/22] albuterol sulfate [Ventolin HFA] 1 inh INHALATION Q6H PRN #8.5 g 04/28/22 [Rx Last Taken Unknown] carvedilol 6.25 mg PO BID 04/29/22 [History Last Taken 04/29/22] famotidine 20 mg PO DAILY 04/29/22 [History Last Taken 04/29/22] prednisone 10 mg PO DAILY 04/29/22 [History Last Taken 04/29/22] Allergy/AdvReac Type Severity Reaction Status Date / Time latex Allergy BLISTERS Verified 04/29/22 13:44 Iodinated Contrast Media AdvReac Hives Verified 04/29/22 13:44 [Iodinated Contrast Media - IV Dye] morphine AdvReac Nausea/Vom/ Verified 04/29/22 13:44 Diarrhea Family History Mother CVA (cerebral vascular accident) Heart disease Hypertension Sister Cancer Surgical History History of appendectomy History of laryngectomy Hx of cholecystectomy Hx of hernia repair Hx of hysterectomy Social History Smoking Status: Former smoker Physical Exam Const alert General Appearance: cooperative Exam Limitations: no limitations HEENT HEENT Narrative: small but patent laryngectomy stoma. no secretions. Lab / Micro Data Result Diagrams: 04/30/22 06:53 04/30/22 06:53 Labs: Laboratory Results - last 24 hr 04/29/22 13:50: WBC 16.4 H, RBC 4.27, Hgb 12.4, Hct 38.3, MCV 89.7, MCH 29.0, MCHC 32.4, RDW Std Deviation 44.9 H, RDW Coeff of Rosa 13.8, Plt Count 277, MPV 9.7, Immature Gran % (Auto) 1.900 H, Neut % (Auto) 89.0 H, Lymph % (Auto) 2.7 L, [place] % (Auto) 6.2, Eos % (Auto) 0.0, Baso % (Auto) 0.2, Absolute Neuts (auto) 14.6 H, Absolute Lymphs (auto) 0.45 L, Nucleated RBC % 0, Differential Comment S EE COMMENT, Platelet Estimate ADEQUATE, RBC Morphology N CHROM, Anisocytosis RARE, Macrocytosis RARE 04/29/22 13:50: Sodium 138, Potassium 3.8, Chloride 100, Carbon Dioxide 32.0, Anion Gap 6, BUN 32 H, Creatinine 1.05 H, Estim Creat Clear Calc 50.13, Est GFR (MDRD) Af Amer 71, Est GFR (MDRD) Non-Af 59 L, BUN/Creatinine Ratio 30.5 H, Glucose 102, Calcium 8.8, Troponin I High Sens 8 04/29/22 13:50: Lactic Acid 1.1 04/30/22 06:38: MRSA (PCR) POSITIVE H 04/30/22 06:53: WBC 13.5 H, RBC 3.93 L, Hgb 11.4 L, Hct 35.9 L, MCV 91.3, MCH 29.0, MCHC 31.8 L, RDW Std Deviation 48.2 H, RDW Coeff of Rosa 14.3, Plt Count 216, MPV 10.1, Immature Gran % (Auto) 1.200 H, Neut % (Auto) 93.0 H, Lymph % (Auto) 2.0 L, [place] % (Auto) 3.6, Eos % (Auto) 0.1, Baso % (Auto) 0.1, Absolute Neuts (auto) 12.6 H, Absolute Lymphs (auto) 0.27 L, Nucleated RBC % 0.1, D ifferential Comment SCANNED 04/30/22 06:53: Sodium 137, Potassium 3.5, Chloride 99, Carbon Dioxide 33.0 H, Anion Gap 5, BUN 34 H, Creatinine 1.32 H, Estim Creat Clear Calc 39.88, Est GFR (MDRD) Af Amer 54 L, Est GFR (MDRD) Non-Af 45 L, BUN/Creatinine Ratio 25.8 H, Glucose 138 H, Calcium 8.3 L Micro: Microbiology 04/29/22 15:31 Blood Culture (Wb) - Anticubital Left Blood Culture - Preliminary Radiology Impression Chest X-Ray 04/29/22 14:05 IMPRESSION: There is left mid lung and left lower lobe infiltrate / atelectasis. Electronically Signed: Robe Shipley MD at 14:24 EDT , Chest X-Ray 04/30/22 05:36 IMPRESSION: Left midlung infiltrate concerning for pneumonia increased since previous exam. Follow-up exam until resolution is recommended. Electronically Signed: Chris Hdez MD at 10:17 EDT ,
--- NOTE | 2022-04-30 11:17 | PCM.OPRPT ---
Problems Associated Problem List Diagnoses (1) Dyspnea: (2) Larynx cancer: Report of Operation Date of Procedure: 04/30/22 Pre-Operative Diagnosis: respiratory failure Post-Operative Diagnosis: respiratory failure Surgery/Procedure Performed:: tracheobronchoscopy through laryngectomy stoma Surgeon: Mic Todd Type of Anesthesia: None Description of Procedure: the flexible bronchoscope was inserted through the patent laryngectomy stoma. the trachea was clear to the level of the nirmal and mainstem bronchi. there were no abnormalities.
--- NOTE | 2022-04-30 14:03 | CASEMGMT ---
JACKLYN CM chart review: Patient was admitted 04/26-04/28 for COPD, respiratory failure. See RN CM assessment from 04/26/22. Patient was discharged to home with D[place] setup for hospital [place] and [place] [facility] did not qualify for home oxygen. Patient was to follow-up with Dr. Dillon as an outpatient. Patient returned 04/29/22 for SOB. Patient admitted for pneumonia with hypoxia. Per pulmonology, patient had mucus plug causing hypoxia. ENT consulted for patient established tracheostomy. CM to monitor for home oxygen at discharge and pulmonary follow-up. CM will continue to follow this patient and plan for a safe discharge.
[2022-04-30] MEDS: Atorvastatin Calcium 10 MG Tablet PO (20:16)
[2022-04-30] MEDS: Vancomycin IV 1,000 MG/200 ML BAG 200 MG IV (21:07)
[2022-04-30 21:35] LABS: Vancomycin, Trough Level 25.1 ug/mL (5.0-15.0)
[2022-05-01] VITALS (35 sets, daily range): BP systolic 86–115; BP diastolic 62–82; PULSE 70–98; RESP 11–21; TEMP 36.6–37.2; O2SAT 93–100
[2022-05-01 03:34] LABS: Absolute Lymphocyte Count 0.39 X10^3/uL (0.83-4.51); Absolute Neutrophil Count 11.4 X10^3/uL (2.0-7.7); Basophil# 0.02 X10^3/uL; Basophil% 0.2 % (0-1); Eosinophil# 0.07 X10^3/uL; Eosinophils% 0.5 % (0-5); Hematocrit 34.4 % (37-47); Hemoglobin 10.6 g/dL (12.0-15.0); Lymphocyte # 0.39 X10^3/ul (0.83-4.51); Lymphocyte % 3.1 % (19-41); Mean Corp Hgb Conc 30.8 g/dL (32-36); Mean Corpuscular Hgb 28.3 pg (27.0-32.0); Mean Platelet Vol. 9.9 fl (6.2-12.0); Monocyte# 0.68 X10^3/uL; Monocyte% 5.3 % (0-10); NRBC Flagged by Analyzer 0 % (0-5); Neutrophil # 11.41 X10^3/uL (2.7-7.7); Neutrophil % 89.6 % (47-70); POSITIVE DIFFERENTIAL YES; Platelet Count 208 K/mm3 (150-450); RBC Distribution Width CV 14.1 % (11.6-14.6); RBC Distribution Width SD 47.8 fl (35.1-43.9); Red Blood Count 3.74 M/mm3 (4.2-5.4); White Blood Count 12.7 K/mm3 (4.4-11.0)
[2022-05-01 03:36] LABS: Differential Indicated SCAN CRITERIA MET
[2022-05-01 03:43] LABS: Anion Gap 6 (5-15); BUN 46 mg/dL (7-18); BUN/Creat Ratio 27.4 RATIO (10-20); Calcium,Total 7.8 mg/dL (8.5-10.1); Chloride 96 mmol/L (98-107); Creatinine, Serum 1.68 mg/dL (0.55-1.02); EST Glomerular Filtration Rate 34 mL/min (>60); Est Glom Filt Rate - Afr Amer 41 mL/min (>60); Estimated Creatinine Clearance 31.33 ml/min; Glucose 124 mg/dL (74-106); Potassium 3.4 mmol/L (3.5-5.1); Sodium Level 133 mmol/L (136-145)
[2022-05-01 04:18] LABS: Differential Comment SCANNED
--- NOTE | 2022-05-01 04:55 | CPS ---
Decreased FIO2 to 35%
[2022-05-01] MEDS: Levothyroxine 137 MCG Tablet PO (05:30)
[2022-05-01] MEDS: Liothyronine 5 MCG Tablet PO ×2 (05:30→18:56)
[2022-05-01] MEDS: Sucralfate 1 GM Tablet PO ×4 (06:10→20:09)
[2022-05-01] MEDS: Potassium Chloride Oral Tablet 20 MEQ PO ×2 (06:10→16:15)
--- NOTE | 2022-05-01 06:41 | PCM.PN.INT ---
Assessment & Plan Assessment/Plan (1) Pneumonia: (2) Hypoxia: (3) Larynx cancer: (4) Multiple tracheobronchial mucus plugs: (5) Morbid obesity: PLAN: RECOMMENDATIONS: 1. 6.5 endotracheal tube and size 4 tracheostomy to the bedside 2. Continue heated humidification 3. Continue aggressive pulmonary toileting 4. Potentially discontinue Zosyn given MRSA 5. Wean oxygen as tolerated 6. Avoid opiates and anxiolytics if possible IMPRESSIONS: 1. Acute hypoxic respiratory failure secondary to a recent COPD exacerbation and MRSA pneumonia Patient with left lower lobe infiltrate, MRSA on blood cultures and repeated mucous plugging. ENT was consulted yesterday. Airway examination was unremarkable. Patient has been doing better with pulmonary toileting independently with mucolytic's and antibiotics. Still requiring intermittent bedside suctioning, so would continue to monitor in the intensive care unit. Continue with humidification to help with pulmonary toileting. Wean oxygen as tolerated. 2. CKD stage IIIa Slightly worse. Patient with previous acute kidney injury. It appears baseline is approximately 1. Okay to use IV fluids to help with secretion viscosity. Patient will be at risk for flash pulmonary edema given diastolic dysfunction on recent echocardiogram. 3. HTN/HLD/hypothyroidism/morbid obesity/anxiety/depression Complicates care, management, recovery and prognosis. Likely okay to continue with baseline medications. Subjective Subjective Patient is improved compared to yesterday. Patient is much more alert and has been coughing up much of her secretions. Patient and nursing feel that her secretions are improving. Patient is still requiring intermittent suctioning secondary to mucous plugging. Patient was evaluated by ENT. No trach was felt to be necessary. Objective Data Objective Data Vital Signs: Vital Signs Temp Pulse Resp BP Pulse Ox 36.6 C 82 11 L 105/71 98 05/01/22 04:00 05/01/22 06:00 05/01/22 06:00 05/01/22 06:00 05/01/22 06:00 Oxygen Flow Rate (L/min) 8 Oxygen Delivery Method Trach Collar Weight: 123.4 kg Body Mass Index (BMI) 47.5 Intake & Output: Intake and Output for Last 24 Hours 04/29/22 04/30/22 05/01/22 23:59 23:59 23:59 Intake Total 505 / 505 1680 / 1680 150 / 150 Output Total 400 / 400 425 / 425 Balance 505 / 505 1280 / 1280 -275 / -275 Lab / Micro Data Result Diagrams: 05/01/22 03:23 05/01/22 03:23 Labs: Laboratory Results - last 24 hr 04/30/22 06:38: MRSA (PCR) POSITIVE H 04/30/22 06:53: WBC 13.5 H, RBC 3.93 L, Hgb 11.4 L, Hct 35.9 L, MCV 91.3, MCH 29.0, MCHC 31.8 L, RDW Std Deviation 48.2 H, RDW Coeff of Rosa 14.3, Plt Count 216, MPV 10.1, Immature Gran % (Auto) 1.200 H, Neut % (Auto) 93.0 H, Lymph % (Auto) 2.0 L, [place] % (Auto) 3.6, Eos % (Auto) 0.1, Baso % (Auto) 0.1, Absolute Neuts (auto) 12.6 H, Absolute Lymphs (auto) 0.27 L, Nucleated RBC % 0.1, Differential Comment SCANNED 04/30/22 06:53: Sodium 137, Potassium 3.5, Chloride 99, Carbon Dioxide 33.0 H, Anion Gap 5, BUN 34 H, Creatinine 1.32 H, Estim Creat Clear Calc 39.88, Est GFR (MDRD) Af Amer 54 L, Est GFR (MDRD) Non-Af 45 L, BUN/Creatinine Ratio 25.8 H, Glucose 138 H, Calcium 8.3 L 04/30/22 21:05: Vancomycin Trough 25.1 H 05/01/22 03:23: WBC 12.7 H, RBC 3.74 L, Hgb 10.6 L, Hct 34.4 L, MCV 92.0, MCH 28.3, MCHC 30.8 L, RDW Std Deviation 47.8 H, RDW Coeff of Rosa 14.1, Plt Count 208, MPV 9.9, Immature Gran % (Auto) 1.300 H, Neut % (Auto) 89.6 H, Lymph % (Auto) 3.1 L, [place] % (Auto) 5.3, Eos % (Auto) 0.5, Baso % (Auto) 0.2, Absolute Neuts (auto) 11.4 H, Absolute Lymphs (auto) 0.39 L, Nucleated RBC % 0, Differential Comment SCANNED 05/01/22 03:23: Sodium 133 L, Potassium 3.4 L, Chloride 96 L, Carbon Dioxide 31.0, Anion Gap 6, BUN 46 H, Creatinine 1.68 H, Estim Creat Clear Calc 31.33, Est GFR (MDRD) Af Amer 41 L, Est GFR (MDRD) Non-Af 34 L, BUN/Creatinine Ratio 27.4 H, Glucose 124 H, Calcium 7.8 L Micro: Microbiology 04/29/22 15:31 Blood Culture (Wb) - Anticubital Left Bacteria Detection (PCR) - Preliminary Meth. resistant Staph. aureus 04/29/22 15:31 Blood Culture (Wb) - Anticubital Left Blood Culture - Preliminary 04/30/22 06:50 Sputum, Tracheal Aspirate Gram Stain - Final Radiography Diagnostic Testing: Radiology Impression Chest X-Ray 04/30/22 05:36 IMPRESSION: Left midlung infiltrate concerning for pneumonia increased since previous exam. Follow-up exam until resolution is recommended. Electronically Signed: Chris Hdez MD at 10:17 EDT , Physical Exam Const Constitutional Narrative: Slightly increased work of breathing. Interactive. Strong cough noted. Nutritional Appearance: morbidly obese HEENT normocephalic and moist oral mucous membranes Eyes PERRL, EOMs intact bilaterally and conjunctivae normal Neck supple and no JVD Resp normal respiratory effort, no retractions and no use of accessory muscles Resp Narrative: Rhonchi improved following suctioning and coughing Auscultation: rhonchi, wheezes and diminished lung sounds; Negative for crackles or rales Cardio regular rhythm, S1 normal heart sound, S2 normal heart sound and no murmurs Rate: tachycardic GI soft to palpation, non-tender and non-distended; Negative for hepatosplenomegaly Extremity no clubbing, cyanosis or edema Skin no rashes or lesions noted Neuro no focal motor deficits and no sensory deficits noted Psych affect normal Appearance: appropriate Charges/Coding Visit Charges Inpatient E&M: 97516 Subs Hosp L3
[2022-05-01] MEDS: Ipratropium/Albuterol Sulfate 3 ML AMPUL.NEB INHALATION ×4 (07:26→20:00)
[2022-05-01] MEDS: predniSONE 20 MG Tablet 40 MG PO (08:26)
[2022-05-01] MEDS: guaiFENesin 1,200 MG Tablet 1200 MG PO ×2 (08:26→20:09)
[2022-05-01] MEDS: Sertraline 50 MG Tablet 75 MG PO (08:26)
[2022-05-01] MEDS: Enoxaparin 40 MG/0.4 ML Syringe SC (08:28)
[2022-05-01] MEDS: hydroCHLOROthiazide 25 MG Tablet PO (08:28)
[2022-05-01] MEDS: Famotidine 20 MG Tablet PO (08:28)
[2022-05-01] MEDS: Carvedilol 6.25 MG Tablet PO ×2 (08:29→20:10)
[2022-05-01] MEDS: Meloxicam 15 MG Tablet PO (08:29)
[2022-05-01] MEDS: Losartan Potassium 100 MG Tablet PO (08:29)
[2022-05-01] MEDS: Gabapentin 300 MG Capsule PO ×2 (08:38→20:10)
--- NOTE | 2022-05-01 08:54 | PN.HOSP_ITS ---
Subjective Subjective Doing well, was evaluated by ENT yesterday and does not have any strictures just thick secretions. She is coughing up better today. Objective Data Objective Data Vital Signs: Vital Signs Temp Pulse Resp BP Pulse Ox 98 F 94 21 H 114/82 H 98 05/01/22 04:00 05/01/22 08:00 05/01/22 08:00 05/01/22 08:00 05/01/22 08:00 Oxygen Flow Rate (L/min) 8 Oxygen Delivery Method Trach Collar Weight: 272 lb 0.807 oz Body Mass Index (BMI) 47.5 Intake & Output: Intake and Output for Last 24 Hours 04/30/22 05/01/22 05/02/22 03:59 03:59 03:59 Intake Total 505 / 505 1730 / 1730 100 / 100 Output Total 400 / 400 425 / 425 Balance 505 / 505 1330 / 1330 -325 / -325 Lab / Micro Data Result Diagrams: 05/01/22 03:23 05/01/22 03:23 Labs: Laboratory Results - last 24 hr 04/30/22 21:05: Vancomycin Trough 25.1 H 05/01/22 03:23: WBC 12.7 H, RBC 3.74 L, Hgb 10.6 L, Hct 34.4 L, MCV 92.0, MCH 28.3, MCHC 30.8 L, RDW Std Deviation 47.8 H, RDW Coeff of Rosa 14.1, Plt Count 208, MPV 9.9, Immature Gran % (Auto) 1.300 H, Neut % (Auto) 89.6 H, Lymph % (Auto) 3.1 L, [place] % (Auto) 5.3, Eos % (Auto) 0.5, Baso % (Auto) 0.2, Absolute Neuts (auto) 11.4 H, Absolute Lymphs (auto) 0.39 L, Nucleated RBC % 0, Differential Comment SCANNED 05/01/22 03:23: Sodium 133 L, Potassium 3.4 L, Chloride 96 L, Carbon Dioxide 31.0, Anion Gap 6, BUN 46 H, Creatinine 1.68 H, Estim Creat Clear Calc 31.33, Est GFR (MDRD) Af Amer 41 L, Est GFR (MDRD) Non-Af 34 L, BUN/Creatinine Ratio 27.4 H, Glucose 124 H, Calcium 7.8 L Micro: Microbiology 04/29/22 15:40 Blood Culture (Wb) - Anticubital Left Blood Culture - Preliminary Staphylococcus aureus 04/29/22 15:31 Blood Culture (Wb) - Anticubital Left Bacteria Detection (PCR) - Preliminary Meth. resistant Staph. aureus 04/29/22 15:31 Blood Culture (Wb) - Anticubital Left Blood Culture - Preliminary Staphylococcus aureus 04/30/22 06:50 Sputum, Tracheal Aspirate Gram Stain - Final 04/30/22 06:50 Sputum, Tracheal Aspirate Respiratory Culture - Preliminary Staphylococcus aureus Radiography Diagnostic Testing: Radiology Impression Chest X-Ray 04/30/22 05:36 IMPRESSION: Left midlung infiltrate concerning for pneumonia increased since previous exam. Follow-up exam until resolution is recommended. Electronically Signed: Chris Hdez MD at 10:17 EDT , Physical Exam Const alert, oriented x3 and no apparent distress General Appearance: cooperative HEENT normocephalic and moist oral mucous membranes Eyes PERRL, EOMs intact bilaterally and conjunctivae normal Neck supple and no JVD Resp normal respiratory effort, no retractions and no use of accessory muscles Auscultation: rhonchi, wheezes and diminished lung sounds; Negative for crackles or rales Cardio regular rhythm, S1 normal heart sound, S2 normal heart sound and no murmurs Rate: tachycardic GI soft to palpation, non-tender and non-distended; Negative for hepatosplenomegaly Extremity no clubbing, cyanosis or edema Skin no rashes or lesions noted Neuro no focal motor deficits and no sensory deficits noted Psych affect normal Appearance: appropriate Assessment & Plan Assessment/Plan (1) Pneumonia: (2) Hypoxia: PLAN: 1. Acute hypoxic respiratory failure secondary to a recent COPD exacerbation and MRSA pneumonia and bacteremia with mucous plugging ? She was recently admitted with acute hypoxic respiratory failure due to a COPD exacerbation she was discharged yesterday. She did have COVID PCR was done at the outside hospital on her previous admission which were negative. It was also reported that the CT angio of her chest on the outside hospital was also negative. ? She was doing well and discharged yesterday she presents back stating that she has a productive cough. On discharge yesterday she was not requiring any oxygen for over 24 hours and was stable on room air ? Checks x-ray demonstrates a left lower lobe pneumonia ? Leukocytosis is improving ? Continue with her steroid taper that she was set up to be on on discharge, as well as breathing treatments ? MRSA in her sputum as well as in her blood cultures, will consult ID and repeat blood cultures today, continue with vancomycin and discontinue Zosyn ? ENT did a bedside scope yesterday and tracheostomy is normal just thick secretions ? Appreciate pulmonology assistance ? She does have a history of laryngeal cancer and has a tracheostomy status post chemoradiation and laryngectomy 2. HTN/HLD ? She did have an echocardiogram done on her previous admission which showed an EF of 75% with an RVSP of 34 mmHg ? Troponin here is negative ? She was transition from her Norvasc to Coreg which we will continue here ? Continue with Lipitor, losartan?hydrochlorothiazide 3. Hypothyroidism ? Stable ? Continue with her home medications 4. Anxiety/depression ? Stable ? Continue with Zoloft 5. CKD 3 a ? Creatinine seems at baseline ? We will continue to monitor, she did have a HEIDI in her previous admission DVT: Lovenox Charges/Coding Visit Charges Inpatient E&M: 55160 Subs Hosp L2
[2022-05-01] MEDS: Vancomycin IV 1,000 MG/200 ML BAG 200 MG IV ×2 (09:37→21:17)
[2022-05-01] MEDS: Atorvastatin Calcium 10 MG Tablet PO (20:10)
[2022-05-01] MEDS: MELATONIN 3 MG TABLET PO (20:10)
[2022-05-01 21:54] LABS: Vancomycin, Trough Level 22.6 ug/mL (5.0-15.0)
--- NOTE | 2022-05-01 22:17 | PCM.RX.CS ---
Consult Pharmacy has been consulted to manage selected antiobiotic: Vancomycin Type of Consult: Follow-up Suspected Infection: Pneumonia Prior Doses of Antibiotics Received/Current Regimen: Medications Vancomycin HCl (Vancomycin) 1,000 mg in 200 mls @ 200 mls/hr IV Q12H CESIA Stop: 05/01/22 22:30 Last Admin: 05/01/22 21:17 Dose: 200 mls/hr Vancomycin HCl 750 mg/ Sodium (Chloride) 265 mls @ 250 mls/hr IV Q12H [facility] Labs: Sodium 133 mmol/L (136-145) L 05/01/22 03:23 Potassium 3.4 mmol/L (3.5-5.1) L 05/01/22 03:23 Chloride 96 mmol/L (98-107) L 05/01/22 03:23 Carbon Dioxide 31.0 mmol/L (21.0-32.0) 05/01/22 03:23 Anion Gap 6 (5-15) 05/01/22 03:23 BUN 46 mg/dL (7-18) H 05/01/22 03:23 Creatinine 1.68 mg/dL (0.55-1.02) H 05/01/22 03:23 Est GFR (MDRD) Af Amer 41 mL/min (>60) L 05/01/22 03:23 Est GFR (MDRD) Non-Af 34 mL/min (>60) L 05/01/22 03:23 BUN/Creatinine Ratio 27.4 RATIO (10-20) H 05/01/22 03:23 Glucose 124 mg/dL (74-106) H 05/01/22 03:23 Vancomycin Trough 22.6 ug/mL (5.0-15.0) H 05/01/22 21:04 Microbiology: Microbiology 04/29/22 15:40 Blood Culture (Wb) - Anticubital Left Blood Culture - Preliminary Staphylococcus aureus 04/29/22 15:31 Blood Culture (Wb) - Anticubital Left Bacteria Detection (PCR) - Preliminary Meth. resistant Staph. aureus 04/29/22 15:31 Blood Culture (Wb) - Anticubital Left Blood Culture - Preliminary Staphylococcus aureus 04/30/22 06:50 Sputum, Tracheal Aspirate Gram Stain - Final 04/30/22 06:50 Sputum, Tracheal Aspirate Respiratory Culture - Preliminary Staphylococcus aureus Weight used for dosin.4 kg Estimated Creatinine Clearance: 49.6 Goal Trough: 15-20 mcg/mL Pharmacy Plan for Drug Dosing: Vancomycin trough level of 22.6 was above the target range of 15-20. Per dosing calculator, a new dose of 750mg q12h should give an estimated trough of 16.5. Will initiate this new dose and re-draw a trough prior to 4th dose of new regimen. Pharmacy Service will continue to monitor and adjust dosing as required. Follow-Up Labs: Trough Vancomycin Labs to be done on [date and time ordered]: 05/03/22 @2100
[2022-05-02] VITALS (21 sets, daily range): BP systolic 104–151; BP diastolic 65–108; PULSE 69–91; RESP 12–18; TEMP 36.2–36.9; O2SAT 93–100
[2022-05-02] MEDS: HYDROcodone Bitartrate/Apap 5/325 Tablet PO (03:20)
[2022-05-02 03:48] LABS: Absolute Lymphocyte Count 0.67 X10^3/uL (0.83-4.51); Absolute Neutrophil Count 11.6 X10^3/uL (2.0-7.7); Basophil# 0.03 X10^3/uL; Basophil% 0.2 % (0-1); Eosinophil# 0.14 X10^3/uL; Hematocrit 35.8 % (37-47); Hemoglobin 11.2 g/dL (12.0-15.0); Lymphocyte # 0.67 X10^3/ul (0.83-4.51); Mean Corp Hgb Conc 31.3 g/dL (32-36); Mean Corpuscular Hgb 28.2 pg (27.0-32.0); Mean Corpuscular Volume 90.2 fL (81-99); Mean Platelet Vol. 10.2 fl (6.2-12.0); Monocyte% 4.4 % (0-10); NRBC Flagged by Analyzer 0 % (0-5); Neutrophil # 11.57 X10^3/uL (2.7-7.7); Neutrophil % 85.7 % (47-70); Platelet Count 268 K/mm3 (150-450); RBC Distribution Width CV 13.6 % (11.6-14.6); Red Blood Count 3.97 M/mm3 (4.2-5.4); White Blood Count 13.5 K/mm3 (4.4-11.0)
[2022-05-02 03:57] LABS: Anion Gap 3 (5-15); BUN 29 mg/dL (7-18); BUN/Creat Ratio 28.4 RATIO (10-20); Calcium,Total 8.4 mg/dL (8.5-10.1); Chloride 97 mmol/L (98-107); Creatinine, Serum 1.02 mg/dL (0.55-1.02); EST Glomerular Filtration Rate 61 mL/min (>60); Est Glom Filt Rate - Afr Amer 73 mL/min (>60); Estimated Creatinine Clearance 51.61 ml/min; Glucose 108 mg/dL (74-106); Sodium Level 134 mmol/L (136-145)
[2022-05-02] MEDS: Levothyroxine 137 MCG Tablet PO (06:20)
[2022-05-02] MEDS: hydrOXYzine PAM 25 MG Capsule PO (06:20)
[2022-05-02] MEDS: Sucralfate 1 GM Tablet PO ×4 (06:20→21:27)
[2022-05-02] MEDS: Liothyronine 5 MCG Tablet PO ×2 (06:21→17:12)
--- NOTE | 2022-05-02 06:38 | PCM.PN.INT ---
Assessment & Plan Assessment/Plan (1) Acute hypoxemic respiratory failure: PLAN: RECOMMENDATIONS: 1. Continue trach collar supplemental O2 and wean FiO2 for saturations greater than 90%. 2. Continue aggressive bronchopulmonary hygiene. 3. Await input from infectious diseases regarding antimicrobial treatment length. 4. Continue bronchodilators and prednisone taper. 5. Continue appropriate DVT prophylaxis. 6. The patient is medically stable for transfer out of the intensive care unit. IMPRESSIONS: 1. Acute hypoxemic respiratory failure secondary to COPD exacerbation due to MRSA pneumonia/bacteremia The patient is improving clinically with supplemental oxygen, antimicrobials, bronchodilators and steroids. She is currently requiring trach collar supplemental O2, which will be weaned to maintain saturations at or above 90%. Continue aggressive bronchopulmonary hygiene as tolerated. Await input from infectious diseases regarding antimicrobial management and length of treatment. 2. Acute on chronic kidney disease Resolved. Likely prerenal in etiology in the setting of #1. Creatinine has normalized. Continue to monitor urine output for now. No current indication for renal replacement therapy. 3. Hypertension/hyperlipidemia/hypothyroidism/morbid obesity/anxiety/depression Complicates care, management, recovery and prognosis. Continue home medications as indicated. This note was generated with [employer] dictation software. It may contain incorrect words, spelling, and punctuation that were not noted in checking the note before signing. Subjective Subjective The patient was seen and examined at the bedside this morning. Events from the last 24 hours have been reviewed. The patient is currently afebrile, hemodynamically stable and maintaining appropriate oxygen saturations on 35% trach collar. The patient remains on appropriate antimicrobials, bronchodilators and prednisone. Creatinine has normalized at 1.02. The patient has not required any overnight suctioning as she has been able to expectorate sputum on her own. Objective Data Objective Data The patient's most recent lab work, culture data and imaging studies have all been personally reviewed. Surface echocardiogram demonstrated normal LV size and function with an ejection fraction of 75%. Right ventricular systolic pressure was estimated to be 34 mmHg. Lower extremity Doppler studies were negative for DVT. Blood cultures dated April 29 and were positive for MRSA. Repeat blood cultures from May 01 are pending. Vital Signs: Vital Signs Temp Pulse Resp BP Pulse Ox 97.8 F 76 16 144/108 H 93 05/02/22 04:00 05/02/22 06:00 05/02/22 06:00 05/02/22 06:00 05/02/22 06:00 Oxygen Flow Rate (L/min) 8 Oxygen Delivery Method Trach Collar Weight: 122.7 kg Body Mass Index (BMI) 47.5 Intake & Output: Intake and Output for Last 24 Hours 04/30/22 05/01/22 05/02/22 23:59 23:59 23:59 Intake Total 1680 / 1680 1560 / 1560 420 / 420 Output Total 400 / 400 2425 / 2425 1300 / 1300 Balance 1280 / 1280 -865 / -865 -880 / -880 Lab / Micro Data Attestation: I reviewed the patient's lab results. Result Diagrams: 05/02/22 03:15 05/02/22 03:15 Labs: Laboratory Results - last 24 hr 05/01/22 21:04: Vancomycin Trough 22.6 H 05/02/22 03:15: WBC 13.5 H, RBC 3.97 L, Hgb 11.2 L, Hct 35.8 L, MCV 90.2, MCH 28.2, MCHC 31.3 L, RDW Std Deviation 46.0 H, RDW Coeff of Rosa 13.6, Plt Count 268, MPV 10.2, Immature Gran % (Auto) 3.700 H, Neut % (Auto) 85.7 H, Lymph % (Auto) 5.0 L, [place] % (Auto) 4.4, Eos % (Auto) 1.0, Baso % (Auto) 0.2, Absolute Neuts (auto) 11.6 H, Absolute Lymphs (auto) 0.67 L, Nucleated RBC % 0 05/02/22 03:15: Sodium 134 L, Potassium 4.0, Chloride 97 L, Carbon Dioxide 34.0 H, Anion Gap 3 L, BUN 29 H, Creatinine 1.02, Estim Creat Clear Calc 51.61, Est GFR (MDRD) Af Amer 73, Est GFR (MDRD) Non-Af 61, BUN/Creatinine Ratio 28.4 H, Glucose 108 H, Calcium 8.4 L Micro: Microbiology 04/29/22 15:40 Blood Culture (Wb) - Anticubital Left Blood Culture - Preliminary Staphylococcus aureus 04/29/22 15:31 Blood Culture (Wb) - Anticubital Left Bacteria Detection (PCR) - Preliminary Meth. resistant Staph. aureus 04/29/22 15:31 Blood Culture (Wb) - Anticubital Left Blood Culture - Preliminary Staphylococcus aureus 04/30/22 06:50 Sputum, Tracheal Aspirate Gram Stain - Final 04/30/22 06:50 Sputum, Tracheal Aspirate Respiratory Culture - Preliminary Staphylococcus aureus Physical Exam Const alert and no apparent distress General Appearance: cooperative Nutritional Appearance: obese HEENT normocephalic and head/scalp atraumatic Eyes PERRL, EOMs intact bilaterally and conjunctivae normal Neck supple Neck Narrative: Patent laryngectomy stoma Chest inspection of chest normal Resp no use of accessory muscles Auscultation: wheezes; Negative for rales or rhonchi Cardio regular rate and regular rhythm GI normal to inspection, nondistended, normoactive bowel sounds Extremity no clubbing, cyanosis or edema Skin no rashes or lesions noted Neuro CN's II-XII intact bilaterally and no focal motor deficits Psych cooperative and affect normal Charges/Coding Visit Charges Inpatient E&M: 55134 [facility] Hosp L3
[2022-05-02] MEDS: Ipratropium/Albuterol Sulfate 3 ML AMPUL.NEB INHALATION ×4 (07:00→19:20)
[2022-05-02] MEDS: Meloxicam 15 MG Tablet PO (08:11)
[2022-05-02] MEDS: predniSONE 20 MG Tablet 40 MG PO (08:11)
[2022-05-02] MEDS: Losartan Potassium 100 MG Tablet PO (09:28)
[2022-05-02] MEDS: Enoxaparin 40 MG/0.4 ML Syringe SC (09:28)
[2022-05-02] MEDS: Carvedilol 6.25 MG Tablet PO ×2 (09:28→21:27)
[2022-05-02] MEDS: hydroCHLOROthiazide 25 MG Tablet PO (09:29)
[2022-05-02] MEDS: Sertraline 50 MG Tablet 75 MG PO (09:29)
[2022-05-02] MEDS: Famotidine 20 MG Tablet PO (09:29)
[2022-05-02] MEDS: Gabapentin 300 MG Capsule PO ×2 (09:55→21:27)
--- NOTE | 2022-05-02 10:19 | PN.HOSP_ITS ---
Subjective Subjective Patient seen and examined. She was sitting up in a chair and had no active complaints and had an uneventful night. She denied any fever, chills, nausea, vomiting or diarrhea. Review of systems is otherwise negative. She is on 30% FiO2 via trach collar. Objective Data Objective Data Vital Signs: Vital Signs Temp Pulse Resp BP Pulse Ox 97.1 F L 69 18 119/88 H 94 05/02/22 08:00 05/02/22 08:00 05/02/22 08:00 05/02/22 08:00 05/02/22 08:00 Oxygen Flow Rate (L/min) 8 Oxygen Delivery Method Trach Collar Weight: 270 lb 8.115 oz Body Mass Index (BMI) 47.5 Intake & Output: Intake and Output for Last 24 Hours 04/30/22 05/01/22 05/02/22 23:59 23:59 23:59 Intake Total 1680 / 1680 1560 / 1560 420 / 420 Output Total 400 / 400 2425 / 2425 1500 / 1500 Balance 1280 / 1280 -865 / -865 -1080 / -1080 Lab / Micro Data Result Diagrams: 05/02/22 03:15 05/02/22 03:15 Labs: Laboratory Results - last 24 hr 05/01/22 21:04: Vancomycin Trough 22.6 H 05/02/22 03:15: WBC 13.5 H, RBC 3.97 L, Hgb 11.2 L, Hct 35.8 L, MCV 90.2, MCH 28.2, MCHC 31.3 L, RDW Std Deviation 46.0 H, RDW Coeff of Rosa 13.6, Plt Count 268, MPV 10.2, Immature Gran % (Auto) 3.700 H, Neut % (Auto) 85.7 H, Lymph % (Auto) 5.0 L, [place] % (Auto) 4.4, Eos % (Auto) 1.0, Baso % (Auto) 0.2, Absolute Neuts (auto) 11.6 H, Absolute Lymphs (auto) 0.67 L, Nucleated RBC % 0 05/02/22 03:15: Sodium 134 L, Potassium 4.0, Chloride 97 L, Carbon Dioxide 34.0 H, Anion Gap 3 L, BUN 29 H, Creatinine 1.02, Estim Creat Clear Calc 51.61, Est GFR (MDRD) Af Amer 73, Est GFR (MDRD) Non-Af 61, BUN/Creatinine Ratio 28.4 H, Glucose 108 H, Calcium 8.4 L Micro: Microbiology 04/29/22 15:31 Blood Culture (Wb) - Anticubital Left Bacteria Detection (PCR) - Final Staphylococcus aureus mecA Resistance Marker 04/29/22 15:31 Blood Culture (Wb) - Anticubital Left Blood Culture - Preliminary Meth. resistant Staph. aureus 04/29/22 15:40 Blood Culture (Wb) - Anticubital Left Blood Culture - Preliminary Staphylococcus aureus 04/30/22 06:50 Sputum, Tracheal Aspirate Gram Stain - Final 04/30/22 06:50 Sputum, Tracheal Aspirate Respiratory Culture - Final Meth. resistant Staph. aureus Physical Exam Const alert, oriented x3 and no apparent distress HEENT head/scalp atraumatic and moist oral mucous membranes HEENT Narrative: has tracheostomy in place Head and Scalp: normocephalic Eyes PERRL, EOMs intact bilaterally and conjunctivae normal Neck no lymphadenopathy Resp Resp Narrative: diminished breath sounds bibasally, on 30% FiO2 via trach collar Cardio regular rate, regular rhythm, S1 normal heart sound and S2 normal heart sound GI normal to inspection, nondistended, normoactive bowel sounds, soft to palpation, non-tender and non-distended Extremity normal to inspection, full ROM and no clubbing, cyanosis or edema Peripheral Pulses: Yes pulses 2+ throughout Skin no rashes or lesions noted Neuro oriented x3, CN's II-XII intact bilaterally and moves all extremities Sensorium / Orientation: awake and alert Psych affect normal Assessment & Plan Assessment/Plan (1) Acute hypoxemic respiratory failure: (2) Multiple tracheobronchial mucus plugs: (3) COPD exacerbation: PLAN: #ACue on chronic hypoxic respiratory failure due to MRSA pneumonia, and COPD exacerbation * improving. Now on 30% FiO2 * on IV solumedrol, antimicrobials ad bronchodilators * titrate oxygen to maintain sats >90% * breathing treatment with bronchodilators * blood cultures from April 29 are positive for MRSA. repeat blood cultures pending * ID consulted; awaiting recs * she was evaluated by ENT and had a bedside bronch, and had no strictures, but was found to have very thick secretions * on IV vancomycin #HEIDI on CKD 3 * resolved. Was thought to be due to pre-renal HEIDI * Cr back to baseline; CR is 1.02 today * will monitor * #Hypertension * has known EF of 75% with RVSP of 34mmhg. * On coreg, losartan and HCTZ * #Hyperlipidemia: on statin #Hypothyroidism: on synthroid #ANxiety and depression; on zoloft. DVT prophylaxis: lovenox Charges/Coding Visit Charges Inpatient E&M: 53375 Subs Hosp L3
[2022-05-02 10:34] LABS: Vancomycin, Random Level 23.6 ug/mL (0.0-15.0)
--- NOTE | 2022-05-02 11:39 | PCM.RX.CS ---
Consult Pharmacy has been consulted to manage selected antiobiotic: Vancomycin Type of Consult: Follow-up Labs: Sodium 134 mmol/L (136-145) L 05/02/22 03:15 Potassium 4.0 mmol/L (3.5-5.1) 05/02/22 03:15 Chloride 97 mmol/L (98-107) L 05/02/22 03:15 Carbon Dioxide 34.0 mmol/L (21.0-32.0) H 05/02/22 03:15 Anion Gap 3 (5-15) L 05/02/22 03:15 BUN 29 mg/dL (7-18) H 05/02/22 03:15 Creatinine 1.02 mg/dL (0.55-1.02) 05/02/22 03:15 Est GFR (MDRD) Af Amer 73 mL/min (>60) 05/02/22 03:15 Est GFR (MDRD) Non-Af 61 mL/min (>60) 05/02/22 03:15 BUN/Creatinine Ratio 28.4 RATIO (10-20) H 05/02/22 03:15 Glucose 108 mg/dL (74-106) H 05/02/22 03:15 Vancomycin Trough 22.6 ug/mL (5.0-15.0) H 05/01/22 21:04 Random Vancomycin 23.6 ug/mL (0.0-15.0) H 05/02/22 09:05 Microbiology: Microbiology 04/29/22 15:31 Blood Culture (Wb) - Anticubital Left Bacteria Detection (PCR) - Final Staphylococcus aureus mecA Resistance Marker 04/29/22 15:31 Blood Culture (Wb) - Anticubital Left Blood Culture - Preliminary Meth. resistant Staph. aureus 04/29/22 15:40 Blood Culture (Wb) - Anticubital Left Blood Culture - Preliminary Staphylococcus aureus 04/30/22 06:50 Sputum, Tracheal Aspirate Gram Stain - Final 04/30/22 06:50 Sputum, Tracheal Aspirate Respiratory Culture - Final Meth. resistant Staph. aureus Goal Trough: 15-20 mcg/mL Pharmacy Plan for Drug Dosing: Ordered a vancomycin random level for 05/02/22 at 0900 for SrCr of 1.02. Random level was 23.6. Reordered Vancomycin random level for 05/03/22 0900 for dosing. Pharmacy Service will continue to monitor and adjust dosing as required.
--- NOTE | 2022-05-02 13:01 | ECHOCS_ITS ---
Reason For Study: Murmur, MRSA Procedure This was a limited 2D transthoracic echocardiogram. The study was technically difficult. Patient scanned supine. Full echo done 04/26/22 with Deifnity. Exam performed portable in patient room. Left Ventricle Normal LV size. Left ventricular systolic function is normal. The estimated ejection fraction is 55 %. No regional wall motion abnormalities noted. Right Ventricle Normal RV size. Normal systolic function. Atria Normal left atrium. Normal right atrium. Mitral Valve Normal mitral valve. Tricuspid Valve Normal tricuspid valve. Aortic Valve Trisinus/trileaflet aortic valve. Pulmonic Valve The pulmonic valve is not well visualized. Great Vessels Normal aortic root. The pulmonary artery is normal size. Normal inferior vena cava. Pericardium/Pleural No pericardial effusion. MMode/2D Measurements & Calculations LVIDd: 4.6 cm IVSd: 0.97 cm Ao root diam: 3.4 cm LVIDs: 2.9 cm LVPWd: 0.89 cm FS: 37.2 % LA dimension(2D): 4.3 cm ECHO/Echo, Limited Study Interpretation Summary Normal LV size. Left ventricular systolic function is normal. The estimated ejection fraction is 55 %. Structurally normal valves. Ordering Physician: Mingo Fry Referring Physician: Rhea Rose Performed By: Jayne Jamil RDCS
--- NOTE | 2022-05-02 13:33 | PCM.CONS.GEN ---
Assessment & Plan Assessment/Plan (1) Acute hypoxemic respiratory failure: PLAN: Due to MRSA bacteremia 2/2 pneumonia, according to pcr. On vanc. Will check repeat bcx and TTE. Will follow, thank you. Unvaccinated for covid, not interested in getting it. HPI Consult Data Date of Consult: 05/02/22 HPI Narrative HPI Narrative: VJ MYERS, is a 51 F who presented 04/29 with several days worsened cough with sputum, dyspnea, and fever. No new joint pain, no back pain. No pacer in place. Some mild chest pain, worse with deep breath. Admitted to icu on azithro/ceftriaxone. Now out of icu, on vanc, breathing a little better. Full ROS performed and neg except as noted above. FORMERLY [facility], 1928–1983 Medical History Alcohol use Anxiety Back pain Chronic pain COPD (chronic obstructive pulmonary disease) Difficulty swallowing Former smoker Gastric reflux GERD (gastroesophageal reflux disease) High cholesterol History of echocardiogram History of foreign body aspiration History of hiatal hernia History of pain when walking History of renal disease HTN (hypertension) Hypothyroid Influenza A Kidney disease Larynx cancer Leg cramps Restless legs Shortness of breath on exertion Thyroid disease Wears dentures Home Medications atorvastatin 10 mg PO QHS 01/11/21 [History Last Taken 04/25/22] sertraline 75 mg PO DAILY 01/11/21 [History Last Taken 04/29/22] levothyroxine 137 mcg PO DAILY 10/04/21 [History Last Taken 04/29/22] liothyronine 10 mcg PO DAILY 10/04/21 [History Last Taken 04/29/22] losartan-hydrochlorothiazide 1 tab PO DAILY 10/04/21 [History Last Taken 04/29/22] gabapentin 300 mg PO BID 11/29/21 [History Last Taken 04/29/22] hydrocodone-acetaminophen 1 tab PO Q8H PRN PRN 04/26/22 [History Last Taken 04/29/22] hydroxyzine HCl 25 mg PO 4X/DAY PRN PRN 04/26/22 [History Last Taken Unknown] meloxicam 15 mg PO DAILY 04/26/22 [History Last Taken 04/25/22] sucralfate 1 g PO 4X/DAY 04/26/22 [History Last Taken 04/29/22] albuterol sulfate [Ventolin HFA] 1 inh INHALATION Q6H PRN #8.5 g 04/28/22 [Rx Last Taken Unknown] carvedilol 6.25 mg PO BID 04/29/22 [History Last Taken 04/29/22] famotidine 20 mg PO DAILY 04/29/22 [History Last Taken 04/29/22] prednisone 10 mg PO DAILY 04/29/22 [History Last Taken 04/29/22] Allergy/AdvReac Type Severity Reaction Status Date / Time latex Allergy BLISTERS Verified 04/29/22 13:44 Iodinated Contrast Media AdvReac Hives Verified 04/29/22 13:44 [Iodinated Contrast Media - IV Dye] morphine AdvReac Nausea/Vom/ Verified 04/29/22 13:44 Diarrhea Family History Mother CVA (cerebral vascular accident) Heart disease Hypertension Sister Cancer Surgical History History of appendectomy History of laryngectomy Hx of cholecystectomy Hx of hernia repair Hx of hysterectomy Social History Smoking Status: Former smoker Physical Exam Const alert, oriented x3 and no apparent distress General Appearance: cooperative Exam Limitations: no limitations HEENT normocephalic and head/scalp atraumatic Eyes PERRL and EOMs intact bilaterally Neck Neck Narrative: trach in place Resp Auscultation: rhonchi Cardio regular rate and regular rhythm GI soft to palpation, non-tender and non-distended Extremity no clubbing, cyanosis or edema Skin no rashes or lesions noted Skin Narrative: no splinter hemorrhages on hands Neuro CN's II-XII intact bilaterally Lab / Micro Data Result Diagrams: 05/02/22 03:15 05/02/22 03:15 Labs: Laboratory Results - last 24 hr 05/01/22 21:04: Vancomycin Trough 22.6 H 05/02/22 03:15: WBC 13.5 H, RBC 3.97 L, Hgb 11.2 L, Hct 35.8 L, MCV 90.2, MCH 28.2, MCHC 31.3 L, RDW Std Deviation 46.0 H, RDW Coeff of Rosa 13.6, Plt Count 268, MPV 10.2, Immature Gran % (Auto) 3.700 H, Neut % (Auto) 85.7 H, Lymph % (Auto) 5.0 L, [place] % (Auto) 4.4, Eos % (Auto) 1.0, Baso % (Auto) 0.2, Absolute Neuts (auto) 11.6 H, Absolute Lymphs (auto) 0.67 L, Nucleated RBC % 0 05/02/22 03:15: Sodium 134 L, Potassium 4.0, Chloride 97 L, Carbon Dioxide 34.0 H, Anion Gap 3 L, BUN 29 H, Creatinine 1.02, Estim Creat Clear Calc 51.61, Est GFR (MDRD) Af Amer 73, Est GFR (MDRD) Non-Af 61, BUN/Creatinine Ratio 28.4 H, Glucose 108 H, Calcium 8.4 L 05/02/22 09:05: Random Vancomycin 23.6 H Micro: Microbiology 04/29/22 15:40 Blood Culture (Wb) - Anticubital Left Blood Culture - Preliminary Staphylococcus aureus 04/29/22 15:31 Blood Culture (Wb) - Anticubital Left Bacteria Detection (PCR) - Final Staphylococcus aureus mecA Resistance Marker 04/29/22 15:31 Blood Culture (Wb) - Anticubital Left Blood Culture - Preliminary Meth. resistant Staph. aureus 04/30/22 06:50 Sputum, Tracheal Aspirate Gram Stain - Final 04/30/22 06:50 Sputum, Tracheal Aspirate Respiratory Culture - Final Meth. resistant Staph. aureus
--- NOTE | 2022-05-02 19:20 | CPS ---
Decreased FiO2 to 28%
[2022-05-02] MEDS: Atorvastatin Calcium 10 MG Tablet PO (21:27)
[2022-05-02] MEDS: MELATONIN 3 MG TABLET PO (21:27)
[2022-05-03] VITALS (14 sets, daily range): BP systolic 124–140; BP diastolic 82–88; PULSE 68–88; RESP 16–20; TEMP 35.3–37.2; O2SAT 85–96
[2022-05-03] MEDS: Liothyronine 5 MCG Tablet PO ×2 (05:22→17:56)
[2022-05-03] MEDS: Levothyroxine 137 MCG Tablet PO (05:22)
[2022-05-03] MEDS: Sucralfate 1 GM Tablet PO ×4 (06:47→21:01)
--- NOTE | 2022-05-03 07:10 | PN.CC_ITS ---
Assessment & Plan Assessment/Plan (1) Acute hypoxemic respiratory failure: PLAN: RECOMMENDATIONS: 1. Continue trach collar supplemental O2 and wean FiO2 for saturations greater than 90%. 2. Continue aggressive bronchopulmonary hygiene. 3. Continue antimicrobials per ID recommendations. 4. Continue bronchodilators and prednisone taper. 5. Continue appropriate DVT prophylaxis. IMPRESSIONS: 1. Acute hypoxemic respiratory failure secondary to COPD exacerbation due to MRSA pneumonia/bacteremia The patient is improving clinically with supplemental oxygen, antimicrobials, bronchodilators and steroids. She is currently requiring trach collar supplemental O2, which will be weaned to maintain saturations at or above 90%. Continue aggressive bronchopulmonary hygiene as tolerated. Echocardiogram was without evidence of valvular vegetations. Continue antimicrobials per ID recommendations. 2. Acute on chronic kidney disease Resolved. Likely prerenal in etiology in the setting of #1. Creatinine has normalized. Continue to monitor urine output for now. No current indication for renal replacement therapy. 3. Hypertension/hyperlipidemia/hypothyroidism/morbid obesity/anxiety/depression Complicates care, management, recovery and prognosis. Continue home medications as indicated. This note was generated with [employer] dictation software. It may contain incorrect words, spelling, and punctuation that were not noted in checking the note before signing. Subjective Subjective The patient was seen and examined at the bedside this morning. Events from the last 24 hours have been reviewed. The patient is currently afebrile, hemodynamically stable and maintaining appropriate oxygen saturations on trach collar at 24% FiO2. Objective Data Objective Data The patient's most recent lab work, culture data and imaging studies have all been personally reviewed. Surface echocardiogram demonstrated normal LV size and function with an ejection fraction of 55%. Lower extremity Doppler studies were negative for DVT. Blood cultures dated April 29 and were positive for MRSA. Repeat blood cultures from May 01 have not demonstrated any growth to date. Vital Signs: Vital Signs Temp Pulse Resp BP Pulse Ox 98.2 F 68 16 124/88 H 92 05/03/22 03:04 05/03/22 03:04 05/03/22 03:04 05/03/22 03:04 05/03/22 03:04 Oxygen Flow Rate (L/min) 8 Oxygen Delivery Method Room Air Weight: 119.7 kg Body Mass Index (BMI) 47.5 Intake & Output: Intake and Output for Last 24 Hours 05/01/22 05/02/22 05/03/22 23:59 23:59 23:59 Intake Total 1560 / 1560 920 / 920 240 / 240 Output Total 2425 / 2425 1700 / 1700 Balance -865 / -865 -780 / -780 240 / 240 Lab / Micro Data Attestation: I reviewed the patient's lab results. Result Diagrams: 05/02/22 03:15 05/02/22 03:15 Labs: Laboratory Results - last 24 hr 05/02/22 09:05: Random Vancomycin 23.6 H Micro: Microbiology 04/29/22 15:40 Blood Culture (Wb) - Anticubital Left Blood Culture - Preliminary Staphylococcus aureus 04/29/22 15:31 Blood Culture (Wb) - Anticubital Left Bacteria Detection (PCR) - Final Staphylococcus aureus mecA Resistance Marker 04/29/22 15:31 Blood Culture (Wb) - Anticubital Left Blood Culture - Preliminary Meth. resistant Staph. aureus 04/30/22 06:50 Sputum, Tracheal Aspirate Gram Stain - Final 04/30/22 06:50 Sputum, Tracheal Aspirate Respiratory Culture - Final Meth. resistant Staph. aureus Radiography Diagnostic Testing: Radiology Impression Echocardiogram 05/02/22 13:01 Interpretation Summary Normal LV size. Left ventricular systolic function is normal. The estimated ejection fraction is 55 %. Structurally normal valves. Ordering Physician: Mingo Fry Referring Physician: Rhea Rose Performed By: Jayne Jamil RDCS Physical Exam Const alert and no apparent distress General Appearance: cooperative Nutritional Appearance: obese HEENT normocephalic and head/scalp atraumatic Eyes PERRL, EOMs intact bilaterally and conjunctivae normal Neck supple Neck Narrative: Patent laryngectomy stoma Chest inspection of chest normal Resp no use of accessory muscles Auscultation: wheezes; Negative for rales or rhonchi Cardio regular rate and regular rhythm GI normal to inspection, nondistended, normoactive bowel sounds Extremity no clubbing, cyanosis or edema Skin no rashes or lesions noted Neuro CN's II-XII intact bilaterally and no focal motor deficits Psych cooperative and affect normal Charges/Coding Visit Charges Inpatient E&M: 02623 Subs Hosp L2
[2022-05-03] MEDS: Ipratropium/Albuterol Sulfate 3 ML AMPUL.NEB INHALATION ×3 (07:20→21:01)
[2022-05-03 10:01] LABS: Hematocrit 36.1 % (37-47); Hemoglobin 11.4 g/dL (12.0-15.0); Mean Corp Hgb Conc 31.6 g/dL (32-36); Mean Corpuscular Hgb 28.1 pg (27.0-32.0); Mean Corpuscular Volume 88.9 fL (81-99); Mean Platelet Vol. 9.5 fl (6.2-12.0); POSITIVE COUNT YES; POSITIVE MORPHOLOGY YES; Platelet Count 251 K/mm3 (150-450); RBC Distribution Width CV 13.8 % (11.6-14.6); RBC Distribution Width SD 45.4 fl (35.1-43.9); Red Blood Count 4.06 M/mm3 (4.2-5.4); White Blood Count 10.3 K/mm3 (4.4-11.0)
[2022-05-03 10:04] LABS: Differential Indicated MANUAL DIFF
[2022-05-03] MEDS: predniSONE 10 MG Tablet 30 MG PO (10:10)
[2022-05-03] MEDS: Meloxicam 15 MG Tablet PO (10:10)
[2022-05-03] MEDS: guaiFENesin 1,200 MG Tablet 1200 MG PO (10:11)
[2022-05-03] MEDS: Losartan Potassium 100 MG Tablet PO (10:11)
[2022-05-03] MEDS: hydroCHLOROthiazide 25 MG Tablet PO (10:11)
[2022-05-03] MEDS: Sertraline 50 MG Tablet 75 MG PO (10:12)
[2022-05-03] MEDS: Famotidine 20 MG Tablet PO (10:13)
[2022-05-03] MEDS: Enoxaparin 40 MG/0.4 ML Syringe SC (10:13)
[2022-05-03] MEDS: Carvedilol 6.25 MG Tablet PO ×2 (10:28→21:30)
[2022-05-03] MEDS: Gabapentin 300 MG Capsule PO ×2 (10:28→21:01)
--- NOTE | 2022-05-03 10:34 | PN.HOSP_ITS ---
Subjective Subjective Patient seeen and examined. SHe feels well today and has no active complaints. She had an uneventful night. She was transferred from ICU yesterday. She has remained hemodynamically stable. Objective Data Objective Data Vital Signs: Vital Signs Temp Pulse Resp BP Pulse Ox 98.7 F 73 16 130/83 H 94 05/03/22 10:00 05/03/22 10:00 05/03/22 10:00 05/03/22 10:00 05/03/22 10:04 Oxygen Flow Rate (L/min) [ 2 AMBULATING with Oxygen #1] Oxygen Flow Rate (L/min) 8 Oxygen Delivery Method Room Air Weight: 263 lb 14.293 oz Body Mass Index (BMI) 47.5 Intake & Output: Intake and Output for Last 24 Hours 05/01/22 05/02/22 05/03/22 23:59 23:59 23:59 Intake Total 1560 / 1560 920 / 920 240 / 240 Output Total 2425 / 2425 1700 / 1700 Balance -865 / -865 -780 / -780 240 / 240 Lab / Micro Data Result Diagrams: 05/03/22 09:42 05/03/22 09:42 Labs: Laboratory Results - last 24 hr 05/02/22 09:05: Random Vancomycin 23.6 H 05/03/22 09:42: WBC 10.3, RBC 4.06 L, Hgb 11.4 L, Hct 36.1 L, MCV 88.9, MCH 28.1, MCHC 31.6 L, RDW Std Deviation 45.4 H, RDW Coeff of Rosa 13.8, Plt Count 251, MPV 9.5, Neut % (Auto) Not Reportable Micro: Microbiology 04/29/22 15:40 Blood Culture (Wb) - Anticubital Left Blood Culture - Final Staphylococcus aureus 04/29/22 15:31 Blood Culture (Wb) - Anticubital Left Bacteria Detection (PCR) - Final Staphylococcus aureus mecA Resistance Marker 04/29/22 15:31 Blood Culture (Wb) - Anticubital Left Blood Culture - Preliminary Meth. resistant Staph. aureus 04/30/22 06:50 Sputum, Tracheal Aspirate Gram Stain - Final 04/30/22 06:50 Sputum, Tracheal Aspirate Respiratory Culture - Final Meth. resistant Staph. aureus Radiography Diagnostic Testing: Radiology Impression Echocardiogram 05/02/22 13:01 Interpretation Summary Normal LV size. Left ventricular systolic function is normal. The estimated ejection fraction is 55 %. Structurally normal valves. Ordering Physician: Mingo Fry Referring Physician: Rhea Rose Performed By: Jayne Jamil RDCS Physical Exam Const alert, oriented x3 and no apparent distress General Appearance: cooperative Exam Limitations: no limitations HEENT normocephalic, head/scalp atraumatic and moist oral mucous membranes Head and Scalp: normocephalic Eyes PERRL, EOMs intact bilaterally and conjunctivae normal Neck no lymphadenopathy, supple and no JVD Resp normal respiratory effort, no retractions and no use of accessory muscles Resp Narrative: diminished breath sounds bibasally, on room air Auscultation: rhonchi, wheezes and diminished lung sounds; Negative for crackles or rales Cardio regular rate, regular rhythm, S1 normal heart sound, S2 normal heart sound and no murmurs Rate: tachycardic GI normal to inspection, nondistended, normoactive bowel sounds, soft to palpation, non-tender and non-distended; Negative for hepatosplenomegaly Extremity normal to inspection, full ROM and no clubbing, cyanosis or edema Peripheral Pulses: Yes pulses 2+ throughout Skin no rashes or lesions noted Neuro oriented x3, CN's II-XII intact bilaterally, moves all extremities, no focal motor deficits and no sensory deficits noted Sensorium / Orientation: awake and alert Psych affect normal Appearance: appropriate Assessment & Plan Assessment/Plan (1) Acute hypoxemic respiratory failure: (2) Multiple tracheobronchial mucus plugs: (3) COPD exacerbation: PLAN: #ACue on chronic hypoxic respiratory failure due to MRSA pneumonia, and COPD exacerbation * improving. Now on room air this morning. * on IV solumedrol, antimicrobials ad bronchodilators * titrate oxygen to maintain sats >90% * breathing treatment with bronchodilators * blood cultures from April 29 are positive for MRSA. repeat blood cultures pending * ID consulted; awaiting recs * she was evaluated by ENT and had a bedside bronch, and had no strictures, but was found to have very thick secretions * on IV vancomycin * 2D echo showed no evidence of vegetation #HEIDI on CKD 3 * resolved. Was thought to be due to pre-renal HEIDI * Cr back to baseline * will monitor * #Hypertension * has known EF of 75% with RVSP of 34mmhg. * On coreg, losartan and HCTZ * #Hyperlipidemia: on statin #Hypothyroidism: on synthroid #ANxiety and depression; on zoloft. DVT prophylaxis: lovenox Charges/Coding Visit Charges Inpatient E&M: 92499 Subs Hosp L2
[2022-05-03 10:46] LABS: Anion Gap 6 (5-15); BUN 22 mg/dL (7-18); BUN/Creat Ratio 24.4 RATIO (10-20); Chloride 98 mmol/L (98-107); EST Glomerular Filtration Rate 70 mL/min (>60); Est Glom Filt Rate - Afr Amer 84 mL/min (>60); Estimated Creatinine Clearance 58.49 ml/min; Glucose 103 mg/dL (74-106); Potassium 3.3 mmol/L (3.5-5.1); Sodium Level 136 mmol/L (136-145)
[2022-05-03 10:49] LABS: Eosinophil 3 % (0-5); Lymphocyte 9 % (19-41); Monocyte 5 % (0-10); Neutrophil-Segmented 83 % (47-70); Total Cells Counted 100 (MANUAL DIFF)
[2022-05-03 10:50] LABS: Platelet Estimate ADEQUATE (ADEQ); Red Cell Morphology NORM C+C NORMAL (NORM C&C); Vancomycin, Random Level 10.1 ug/mL (0.0-15.0)
[2022-05-03 10:52] LABS: Absolute Lymphocyte Count 0.93 X10^3/uL (0.83-4.51); Absolute Neutrophil Count 8.5 X10^3/uL (2.0-7.7); Lymphocyte # 0.93 X10^3/ul (0.83-4.51)
--- NOTE | 2022-05-03 10:59 | CASEMGMT ---
Pt qualifies for 2L with exertion home oxygen and also to be set up with nebulizer. Order faxed to [facility] as pt already has other equipment through them. Pt updated on all and voices no further questions/concerns/needs with discharge. Doug RAZO aware to take portable e-tank. Abisai RAZO CM
--- NOTE | 2022-05-03 12:11 | PCM.RX.CS ---
Consult Pharmacy has been consulted to manage selected antiobiotic: Vancomycin Type of Consult: Follow-up Suspected Infection: Other Labs: Sodium 136 mmol/L (136-145) 05/03/22 09:42 Potassium 3.3 mmol/L (3.5-5.1) L 05/03/22 09:42 Chloride 98 mmol/L (98-107) 05/03/22 09:42 Carbon Dioxide 32.0 mmol/L (21.0-32.0) 05/03/22 09:42 Anion Gap 6 (5-15) 05/03/22 09:42 BUN 22 mg/dL (7-18) H 05/03/22 09:42 Creatinine 0.90 mg/dL (0.55-1.02) 05/03/22 09:42 Est GFR (MDRD) Af Amer 84 mL/min (>60) 05/03/22 09:42 Est GFR (MDRD) Non-Af 70 mL/min (>60) 05/03/22 09:42 BUN/Creatinine Ratio 24.4 RATIO (10-20) H 05/03/22 09:42 Glucose 103 mg/dL (74-106) 05/03/22 09:42 Vancomycin Trough 22.6 ug/mL (5.0-15.0) H 05/01/22 21:04 Random Vancomycin 10.1 ug/mL (0.0-15.0) 05/03/22 09:42 Microbiology: Microbiology 04/29/22 15:40 Blood Culture (Wb) - Anticubital Left Blood Culture - Final Staphylococcus aureus 04/29/22 15:31 Blood Culture (Wb) - Anticubital Left Bacteria Detection (PCR) - Final Staphylococcus aureus mecA Resistance Marker 04/29/22 15:31 Blood Culture (Wb) - Anticubital Left Blood Culture - Preliminary Meth. resistant Staph. aureus 04/30/22 06:50 Sputum, Tracheal Aspirate Gram Stain - Final 04/30/22 06:50 Sputum, Tracheal Aspirate Respiratory Culture - Final Meth. resistant Staph. aureus Goal Trough: 15-20 mcg/mL Pharmacy Plan for Drug Dosin05/03/22 Vancomycin random level received 10.1. Ordered Vancomycin 750 mg IV q12H with trough ordered 05/04/22 at 2300 Pharmacy Service will continue to monitor and adjust dosing as required.
[2022-05-03] MEDS: MELATONIN 3 MG TABLET PO (21:01)
[2022-05-03] MEDS: Atorvastatin Calcium 10 MG Tablet PO (21:01)
[2022-05-04] VITALS (8 sets, daily range): BP systolic 118–121; BP diastolic 84; PULSE 69–84; RESP 16–20; TEMP 36.3–36.6; O2SAT 94–95
--- NOTE | 2022-05-04 06:03 | PCM.PN.INT ---
Assessment & Plan Assessment/Plan (1) Acute hypoxemic respiratory failure: PLAN: Plan RECOMMENDATIONS: 1.? Continue trach collar supplemental O2 and wean FiO2 for saturations greater than 90%. 2.? Continue aggressive bronchopulmonary hygiene. 3.? Continue antimicrobials per ID recommendations. 4.? Continue bronchodilators and prednisone taper. 5.? Continue appropriate DVT prophylaxis. IMPRESSIONS: 1.??Acute hypoxemic respiratory failure secondary to COPD exacerbation due to MRSA pneumonia/bacteremia The patient is improving clinically with supplemental oxygen, antimicrobials, bronchodilators and steroids.? She is currently requiring trach collar supplemental O2, which will be weaned to maintain saturations at or above 90%.? Continue aggressive bronchopulmonary hygiene as tolerated.? Echocardiogram was without evidence of valvular vegetations.? Continue antimicrobials per ID recommendations. 2.??Acute on chronic kidney disease Resolved.? Likely prerenal in etiology in the setting of #1.? Creatinine has normalized.? Continue to monitor urine output for now.? No current indication for renal replacement therapy. 3.??Hypertension/hyperlipidemia/hypothyroidism/morbid obesity/anxiety/depression Complicates care, management, recovery and prognosis.? Continue home medications as indicated. This note was generated with [employer] dictation software. It may contain incorrect words, spelling, and punctuation that were not noted in checking the note before signing. Subjective Subjective The patient was seen and examined at the bedside this morning. Events from the last 24 hours have been reviewed. The patient is currently afebrile, hemodynamically stable and maintaining appropriate oxygen saturations on room air. No overnight issues were identified. Objective Data Objective Data The patient's most recent lab work, culture data and imaging studies have all been personally reviewed.? Surface echocardiogram demonstrated normal LV size and function with an ejection fraction of 55%. Lower extremity Doppler studies were negative for DVT.? Blood cultures dated April 29 and were positive for MRSA.? Repeat blood cultures from May 01 have not demonstrated any growth to date. Vital Signs: Vital Signs Temp Pulse Resp BP Pulse Ox FiO2 99 F 76 16 131/87 H 94 24 05/03/22 21:27 05/03/22 21:27 05/03/22 21:27 05/03/22 21:27 05/03/22 21:27 05/03/22 07:20 Oxygen Flow Rate (L/min) [ 2 AMBULATING with Oxygen #1] Oxygen Flow Rate (L/min) 8 Oxygen Delivery Method Room Air Weight: 119.7 kg Body Mass Index (BMI) 47.5 Intake & Output: Intake and Output for Last 24 Hours 05/02/22 05/03/22 05/04/22 23:59 23:59 23:59 Intake Total 920 / 920 505 / 505 240 / 240 Output Total 1700 / 1700 Balance -780 / -780 505 / 505 240 / 240 Lab / Micro Data Attestation: I reviewed the patient's lab results. Result Diagrams: 05/04/22 06:14 05/04/22 06:14 Labs: Laboratory Results - last 24 hr 05/03/22 09:42: Random Vancomycin 10.1 05/03/22 09:42: WBC 10.3, RBC 4.06 L, Hgb 11.4 L, Hct 36.1 L, MCV 88.9, MCH 28.1, MCHC 31.6 L, RDW Std Deviation 45.4 H, RDW Coeff of Rosa 13.8, Plt Count 251, MPV 9.5, Neut % (Auto) Not Reportable, Absolute Neuts (auto) 8.5 H, Absolute Lymphs (auto) 0.93, Total Counted 100, Neutrophils % (Manual) 83 H, Lymphocytes % (Manual) 9 L, Monocytes % (Manual) 5, Eosinophils % (Manual) 3, Diff Path Review March, Platelet Estimate ADEQUATE, RBC Morphology NORM C+C 05/03/22 09:42: Sodium 136, Potassium 3.3 L, Chloride 98, Carbon Dioxide 32.0, Anion Gap 6, BUN 22 H, Creatinine 0.90, Estim Creat Clear Calc 58.49, Est GFR (MDRD) Af Amer 84, Est GFR (MDRD) Non-Af 70, BUN/Creatinine Ratio 24.4 H, Glucose 103, Calcium 9.0 Micro: Microbiology 05/01/22 09:30 Blood Culture (Wb) - Arm Left Blood Culture - Preliminary No growth in 48 hours. 04/29/22 15:40 Blood Culture (Wb) - Anticubital Left Blood Culture - Final Staphylococcus aureus 04/29/22 15:31 Blood Culture (Wb) - Anticubital Left Bacteria Detection (PCR) - Final Staphylococcus aureus mecA Resistance Marker 04/29/22 15:31 Blood Culture (Wb) - Anticubital Left Blood Culture - Preliminary Meth. resistant Staph. aureus 04/30/22 06:50 Sputum, Tracheal Aspirate Gram Stain - Final 04/30/22 06:50 Sputum, Tracheal Aspirate Respiratory Culture - Final Meth. resistant Staph. aureus Physical Exam Const alert, oriented x3 and no apparent distress General Appearance: cooperative Exam Limitations: no limitations HEENT normocephalic, head/scalp atraumatic and moist oral mucous membranes Head and Scalp: normocephalic Eyes PERRL, EOMs intact bilaterally and conjunctivae normal Neck no lymphadenopathy, supple and no JVD Neck Narrative: Patent laryngectomy stoma. Resp normal respiratory effort, no retractions and no use of accessory muscles Resp Narrative: diminished breath sounds bibasally, on room air Auscultation: rhonchi, wheezes and diminished lung sounds; Negative for crackles or rales Cardio regular rate, regular rhythm, S1 normal heart sound, S2 normal heart sound and no murmurs Rate: tachycardic GI normal to inspection, nondistended, normoactive bowel sounds, soft to palpation, non-tender and non-distended; Negative for hepatosplenomegaly Extremity normal to inspection, full ROM and no clubbing, cyanosis or edema Peripheral Pulses: Yes pulses 2+ throughout Skin no rashes or lesions noted Neuro oriented x3, CN's II-XII intact bilaterally, moves all extremities, no focal motor deficits and no sensory deficits noted Sensorium / Orientation: awake and alert Psych affect normal Appearance: appropriate Charges/Coding Visit Charges Inpatient E&M: 08563 Subs Hosp L2
[2022-05-04 06:23] LABS: Hematocrit 35.5 % (37-47); Hemoglobin 11.3 g/dL (12.0-15.0); Mean Corp Hgb Conc 31.8 g/dL (32-36); Mean Corpuscular Hgb 28.5 pg (27.0-32.0); Mean Corpuscular Volume 89.6 fL (81-99); Mean Platelet Vol. 9.2 fl (6.2-12.0); POSITIVE COUNT YES; POSITIVE MORPHOLOGY YES; Platelet Count 248 K/mm3 (150-450); RBC Distribution Width SD 46.1 fl (35.1-43.9); Red Blood Count 3.96 M/mm3 (4.2-5.4); White Blood Count 10.3 K/mm3 (4.4-11.0)
[2022-05-04 06:38] LABS: Differential Indicated MANUAL DIFF
[2022-05-04] MEDS: Levothyroxine 137 MCG Tablet PO (06:43)
[2022-05-04] MEDS: Sucralfate 1 GM Tablet PO ×2 (06:44→10:51)
[2022-05-04] MEDS: Liothyronine 5 MCG Tablet PO (06:49)
[2022-05-04 07:00] LABS: Anion Gap 5 (5-15); BUN 24 mg/dL (7-18); BUN/Creat Ratio 26.5 RATIO (10-20); Calcium,Total 8.8 mg/dL (8.5-10.1); Chloride 99 mmol/L (98-107); Creatinine, Serum 0.91 mg/dL (0.55-1.02); EST Glomerular Filtration Rate 69 mL/min (>60); Est Glom Filt Rate - Afr Amer 84 mL/min (>60); Estimated Creatinine Clearance 57.85 ml/min; Glucose 96 mg/dL (74-106); Potassium 3.8 mmol/L (3.5-5.1); Sodium Level 136 mmol/L (136-145)
[2022-05-04] MEDS: Ipratropium/Albuterol Sulfate 3 ML AMPUL.NEB INHALATION (07:05)
[2022-05-04 07:24] LABS: Eosinophil 2 % (0-5); Lymphocyte 10 % (19-41); Metamyelocyte 3 % (0-1); Monocyte 3 % (0-10); Myelocyte 5 % (0-0); Neutrophil-Segmented 77 % (47-70); Platelet Estimate ADEQUATE (ADEQ); Total Cells Counted 100 (MANUAL DIFF)
[2022-05-04 07:25] LABS: Absolute Lymphocyte Count 1.03 X10^3/uL (0.83-4.51); Absolute Neutrophil Count 7.9 X10^3/uL (2.0-7.7); Lymphocyte # 1.03 X10^3/ul (0.83-4.51); Red Cell Morphology NORM C+C NORMAL (NORM C&C)
[2022-05-04] MEDS: Meloxicam 15 MG Tablet PO (10:50)
[2022-05-04] MEDS: predniSONE 10 MG Tablet 30 MG PO (10:50)
[2022-05-04] MEDS: Sertraline 50 MG Tablet 75 MG PO (10:51)
[2022-05-04] MEDS: Carvedilol 6.25 MG Tablet PO (10:52)
[2022-05-04] MEDS: Enoxaparin 40 MG/0.4 ML Syringe SC (10:53)
[2022-05-04] MEDS: Losartan Potassium 100 MG Tablet PO (10:53)
[2022-05-04] MEDS: hydroCHLOROthiazide 25 MG Tablet PO (10:53)
[2022-05-04] MEDS: Famotidine 20 MG Tablet PO (10:53)
[2022-05-04] MEDS: guaiFENesin 1,200 MG Tablet 1200 MG PO (10:55)
[2022-05-04] MEDS: Gabapentin 300 MG Capsule PO (11:09)
--- NOTE | 2022-05-04 14:22 | CASEMGMT ---
Pt to be sent home with po linezolid and per Carmine in [facility] retail pharmacy, med will need a prior auth. Call to [facility] to complete prior auth for MRSA bacteremia 2nd pna and per rep, prior auth is obtained with end date of 06/03/22. Case #: [id number]. Call back to Carmine in retail pharmacy to update and med runs through. Abisai RAZO CM
--- NOTE | 2022-05-04 14:23 | PCM.PN.ID ---
Physical Exam Narrative Feeling better, breathing ok, still some cough, no fever. Const alert and no apparent distress Resp Auscultation: rhonchi Cardio regular rate and regular rhythm GI soft to palpation, non-tender and non-distended Skin no rashes or lesions noted ID ID: Route of nutrition/ use of supplements: [] Nutritional Intake: [] IV Site: [] Patel Catheter: [] Assessment & Plan Assessment/Plan (1) Acute hypoxemic respiratory failure: PLAN: Due to MRSA bacteremia 2/2 pneumonia. On vanc. Afebrile. Bcx rapidly cleared. Neg TTE. Will write for 12 more days po linezolid at discharge. Will follow as needed, d/w primary team. Unvaccinated for covid, not interested in getting it.
--- NOTE | 2022-05-04 14:42 | PCM.DC.SUM ---
Providers Date of Admission: 04/29/22 Date of Discharge: 05/04/22 Primary Care Physician: CHARY Nava Consultations 04/30/22 06:43 Consult: Director Information / Pulmonary Medicine Routine Consulting Provider: Raheem Dillon Reason for Consult: HYPOXIA EMERGENT Consult: Yes MD Notified: Yes Date Notified: 04/30/22 Time Notified: 06:30 Method of Notification: Verbal 04/30/22 07:56 Consult: ENT Routine Consulting Provider: Jeremi Pantoja Reason for Consult: Mucous plugging status post laryngectomy EMERGENT Consult: No Notified: Yes Date Notified: 04/30/22 Time Notified: 07:56 Method of Notification: Verbal 05/01/22 08:58 Consult: Infectious Disease Routine Consulting Provider: Mingo Fry Reason for Consult: MRSA pneumonia and bacteremia EMERGENT Consult: No Notified: Yes Date Notified: 05/01/22 Time Notified: 08:58 Method of Notification: Text Comments:: Notify in am Reason For Visit: PNEUMONIA WITH HYPOXIA Diagnosis Discharge Diagnosis (1) Acute hypoxemic respiratory failure: Status: Acute Code(s): J96.01 - Acute respiratory failure with hypoxia (2) MRSA bacteremia: Status: Acute Code(s): R78.81 - Bacteremia; B95.62 - Methicillin resistant Staphylococcus aureus infection as the cause of diseases classified elsewhere Medications at Discharge Home Medications atorvastatin 10 mg tablet 10 mg PO QHS cholesterol 01/11/21 sertraline 50 mg tablet 75 mg PO DAILY depression 01/11/21 levothyroxine 112 mcg tablet 137 mcg PO DAILY THYROID 10/04/21 liothyronine 5 mcg tablet 10 mcg PO DAILY THYROID 10/04/21 losartan 100 mg-hydrochlorothiazide 25 mg tablet 1 tab PO DAILY BP 10/04/21 gabapentin 100 mg tablet 300 mg PO BID back pain 11/29/21 hydrocodone-acetaminophen 5-325mg 5mg-325mg 1 tab PO Q8H PRN PRN Pain 04/26/22 hydroxyzine HCl 25 mg tablet 25 mg PO 4X/DAY PRN PRN Anxiety 04/26/22 meloxicam 15 mg tablet 15 mg PO DAILY pain 04/26/22 sucralfate 1 gram tablet 1 g PO 4X/DAY stomach 04/26/22 albuterol sulfate 90 mcg/actuation aerosol inhaler (Ventolin HFA) 1 inh inhalation Q6H PRN shortness of breath or wheezing #8.5 grams 04/28/22 carvedilol 6.25 mg tablet 6.25 mg PO BID blood pressure 04/29/22 famotidine 20 mg tablet 20 mg PO DAILY . 04/29/22 prednisone 10 mg tablet 10 mg PO DAILY steroid 04/29/22 linezolid 600 mg tablet 600 mg PO Q12H 11 days #22 tabs 05/04/22 Hospital Course Procedures 2-D Echocardiogram Summary of Care Provided Minutes Spent on Discharge: 45 Hospital Course: Patient is a 51-year-old female who was admitted to the hospital for shortness of breath. Patient had been admitted in the hospital and discharged the day before for COPD exacerbation. She was discharged home but subsequently came back again the next day because her shortness of breath worsened. She had been unable to get set up for home oxygen when she was discharged. She admitted to a cough but denied any productive sputum. There was associated orthopnea. Chest x-ray showed?left lower lobe pneumonia.? She was admitted and managed for community-acquired pneumonia and started on ceftriaxone and azithromycin. Neurology was consulted. Hospital course was complicated by hypoxia with patient saturating in the 20s and cyanotic. Director Information was urgently consulted. She had emergent suctioning of her tracheostomy done and was placed on 100% FiO2 via trach mask. He had tracheostomy on account of history of laryngeal cancer s/p laryngectomy. ENT was consulted. Blood cultures came back positive for gram-positive cocci which was later identified as MRSA. She was started on IV vancomycin.Infectious disease was consulted.? Patient was eventually transferred out of the ICU.? She had 2D echo which showed no evidence of any vegetation. Repeat blood cultures were negative. She was weaned off of oxygen via the trach. She remained stable and was discharged on 05/04/2022. She was discharged on p.o. linezolid for 12 more days per ID. She is follow-up with her primary care doctor and infectious disease. Patient seen and examined prior to discharge. She felt well and had no active complaints. She had an uneventful night and review of symptoms otherwise negative. Labs and vitals reviewed. Home medication reviewed and reconciled. Physical Exam Const alert, oriented x3 and no apparent distress General Appearance: cooperative and comfortable Exam Limitations: no limitations HEENT normocephalic, head/scalp atraumatic and moist oral mucous membranes Eyes PERRL, EOMs intact bilaterally and conjunctivae normal Neck no lymphadenopathy, supple and no JVD Neck Narrative: tracheostomy in place Resp normal respiratory effort, no retractions and no use of accessory muscles Resp Narrative: diminished breath sounds bibasally, on room air Auscultation: rhonchi, wheezes and diminished lung sounds; Negative for crackles or rales Cardio regular rate, regular rhythm, S1 normal heart sound, S2 normal heart sound and no murmurs Rate: tachycardic GI normal to inspection, nondistended, normoactive bowel sounds, soft to palpation, non-tender and non-distended; Negative for hepatosplenomegaly Extremity normal to inspection, full ROM and no clubbing, cyanosis or edema Skin no rashes or lesions noted Neuro oriented x3, CN's II-XII intact bilaterally, moves all extremities, no focal motor deficits and no sensory deficits noted Sensorium / Orientation: awake and alert Psych affect normal Appearance: appropriate Weight / BMI Weight Weight: 265 lb 14.04 oz Body Mass Index (BMI) 47.5 ABG / Lab / Microbiology Data Result Diagrams: 05/04/22 06:14 05/04/22 06:14 Laboratory: Laboratory Results - last 24 hr 05/04/22 06:14: WBC 10.3, RBC 3.96 L, Hgb 11.3 L, Hct 35.5 L, MCV 89.6, MCH 28.5, MCHC 31.8 L, RDW Std Deviation 46.1 H, RDW Coeff of Rosa 14.0, Plt Count 248, MPV 9.2, Neut % (Auto) Not Reportable, Absolute Neuts (auto) 7.9 H, Absolute Lymphs (auto) 1.03, Total Counted 100, Neutrophils % (Manual) 77 H, Lymphocytes % (Manual) 10 L, Monocytes % (Manual) 3, Eosinophils % (Manual) 2, Metamyelocytes % 3 H, Myelocytes % 5 H, Diff Path Review May foll, Platelet Estimate ADEQUATE, RBC Morphology NORM C+C 05/04/22 06:14: Sodium 136, Potassium 3.8, Chloride 99, Carbon Dioxide 32.0, Anion Gap 5, BUN 24 H, Creatinine 0.91, Estim Creat Clear Calc 57.85, Est GFR (MDRD) Af Amer 84, Est GFR (MDRD) Non-Af 69, BUN/Creatinine Ratio 26.5 H, Glucose 96, Calcium 8.8 Microbiology: Microbiology 05/02/22 13:56 Blood Culture (Wb) - Arm Right Blood Culture - Preliminary No growth in 48 hours. 05/01/22 09:30 Blood Culture (Wb) - Arm Left Blood Culture - Preliminary No growth in 48 hours. 04/29/22 15:40 Blood Culture (Wb) - Anticubital Left Blood Culture - Final Staphylococcus aureus 04/29/22 15:31 Blood Culture (Wb) - Anticubital Left Bacteria Detection (PCR) - Final Staphylococcus aureus mecA Resistance Marker 04/29/22 15:31 Blood Culture (Wb) - Anticubital Left Blood Culture - Preliminary Meth. resistant Staph. aureus 04/30/22 06:50 Sputum, Tracheal Aspirate Gram Stain - Final 04/30/22 06:50 Sputum, Tracheal Aspirate Respiratory Culture - Final Meth. resistant Staph. aureus D/C Instructions Discharge Diet: Low fat / Low cholesterol Discharge Activity: Return to Normal Activity Weight Bearing Status: Weight bearing as tolerated Call your doctor if you observe: Fever of 101 or Higher, Shortness of breath, Swelling in the ankles, Chest pain, Increased palpitations (irregular heartbeat) and Uncontrolled pain Meaningful Use Info Meaningful Use Diagnoses (Choose all that apply): None applicable Discharge Plan Admission Admit Date/Time: 04/29/22 15:43 Primary Reason for Your Visit: community acquired pneumonia, MRSA bacteremia Attending Provider: Pascale Valverde Primary Care Provider: Rhea Rose NP Consulting Providers: Talib Valdes ; Jeremi Pantoja ; Mingo Fry ; Raheem Dillon Instructions Patient Instructions: ED Pneumonia (Adult) Discharge Orders/Prescriptions Prescriptions: New linezolid 600 mg tablet 600 mg PO Q12H 11 Days Qty: 22 0RF Rx Instructions: ok to take with zoloft Continued sertraline 50 MG tablet 75 mg PO DAILY atorvastatin 10 MG tablet 10 mg PO QHS liothyronine 5 mcg tablet 10 mcg PO DAILY losartan-hydrochlorothiazide 100-25 mg tablet 1 tab PO DAILY levothyroxine 112 mcg tablet 137 mcg PO DAILY gabapentin 100 mg Tablet 300 mg PO BID hydrocodone-acetaminophen 5-325 mg tablet 1 tab PO Q8H PRN PRN (Reason: Pain) meloxicam 15 mg tablet 15 mg PO DAILY sucralfate 1 gram tablet 1 g PO 4X/DAY hydroxyzine HCl 25 mg tablet 25 mg PO 4X/DAY PRN PRN (Reason: Anxiety) albuterol sulfate [Ventolin HFA] 90 mcg/actuation HFA aerosol inhaler 1 inh inhalation Q6H PRN (Reason: shortness of breath or wheezing) Qty: 8.5 0RF famotidine 20 mg Tablet 20 mg PO DAILY carvedilol 6.25 mg tablet 6.25 mg PO BID prednisone 10 mg tablet 10 mg PO DAILY Rx Instructions: 4 tablets x 4 days, 3 tablets x 4 days, 2 tablets x 4 days, 1 tablet x 4 days Referrals / Follow Up: Mingo Fry MD [STAFF PHYSICIAN] - Within 2 Weeks Rhea Rose NP, [facility] [Primary Care Provider] - Within 2 Weeks Disposition Disposition (needs filled in before D/C Order can be placed): Home, Self Care Charges/Coding Visit Charges Inpatient E&M: 07722 Disch Hosp
[2022-05-06 09:57] LABS: Pathologist Review Reviewed
[2022-05-06 10:01] LABS: Pathologist Review Reviewed
== END 2022-05-04 17:54 | disposition home or self-care (01) | DRG 177 ==
LOC: ED 15:50 → MS3 16:03 → ICU 04-30 07:21 → PCU 05-02 10:45
PROVIDERS: Hospitalist; Internal Medicine Critical Care Medicine; Admitting Provider Family Medicine; Emergency Provider Emergency Medicine; PCP Nurse Practitioner Family; Visit Provider Student in an Organized Health Care Education/Training Program
DX: J15.212 Pneumonia due to Methicillin resistant Staphylococcus aureus (principal); J96.01 Acute respiratory failure with hypoxia; R78.81 Bacteremia; N17.9 Acute kidney failure, unspecified; J44.0 Chronic obstructive pulmonary disease with (acute) lower respiratory infection; Z68.42 Body mass index [BMI] 45.0-49.9, adult; J44.1 Chronic obstructive pulmonary disease with (acute) exacerbation; E66.01 Morbid (severe) obesity due to excess calories; Z93.0 Tracheostomy status; N18.31 Chronic kidney disease, stage 3a; B95.62 Methicillin resistant Staphylococcus aureus infection as the cause of diseases classified elsewhere; E03.9 Hypothyroidism, unspecified; E78.5 Hyperlipidemia, unspecified; F41.9 Anxiety disorder, unspecified; I12.9 Hypertensive chronic kidney disease with stage 1 through stage 4 chronic kidney disease, or unspecified chronic kidney disease; K21.9 Gastro-esophageal reflux disease without esophagitis; T17.990A Other foreign object in respiratory tract, part unspecified in causing asphyxiation, initial encounter; F32.A Depression, unspecified; Z28.310 Unvaccinated for COVID-19; Z79.890 Hormone replacement therapy; Z79.1 Long term (current) use of non-steroidal anti-inflammatories (NSAID); Z79.52 Long term (current) use of systemic steroids; Z79.899 Other long term (current) drug therapy; Z87.891 Personal history of nicotine dependence
CPT/HCPCS: 31720; 36415; 71045; 80048; 80202; 83605; 84484; 85025; 87040; 87070; 87077; 87149; 87186; 87205; 87641; 93005; 93308; 94640; 99285; J7040; J7050; A4216; J0696

== ENCOUNTER 2023-03-30 21:09 | Inpatient (IN) | payer MEDICARE, MEDICAID, SELFPAY ==
[2023-03-30 21:09] VITALS: BP 134/90; PULSE 128; RESP 18; TEMP 36.7; O2SAT 93; BMI 35.3
[2023-03-30 21:48] VITALS: PULSE 112; RESP 16; TEMP 36.4; O2SAT 96
--- NOTE | 2023-03-30 21:51 | ED.RN ---
Pt suctioned using suction cath kit. Pt tolerated 2 passes of catheter with white, thick secretions. Respiratory @ bedside. aware.
--- NOTE | 2023-03-30 22:27 | EX.ED.SAOD ---
HPI History of Present Illness Chief Complaint: ETOH Intox Informant: patient Narrative Narrative: Patient presents requesting help with alcohol detox. She drinks hard liquor. She denies history of prior withdrawal seizure. She also reports foul-smelling stool over the past 2 weeks. She states her sister does have colon cancer. Patient has a history of laryngeal cancer and has a tracheostomy. Her last drink was 3 hours ago. [facility] Medical History Alcohol use Anxiety Back pain Chest pain Chronic kidney disease (CKD) Chronic pain COPD (chronic obstructive pulmonary disease) Difficulty swallowing Essential hypertension Former smoker Gastric reflux GERD (gastroesophageal reflux disease) History of foreign body aspiration History of hiatal hernia History of pain when walking History of renal disease Hyperlipidemia Hypothyroidism Influenza A Kidney disease Larynx cancer Leg cramps Morbid obesity Obesity Restless legs Shortness of breath on exertion Thyroid disease Wears dentures Home Medications atorvastatin 10 mg tablet 10 mg PO QHS cholesterol 01/11/21 [History Last Taken 04/25/22] sertraline 50 mg tablet 75 mg PO DAILY depression 01/11/21 [History Last Taken 04/29/22] levothyroxine 112 mcg tablet 137 mcg PO DAILY THYROID 10/04/21 [History Last Taken 04/29/22] liothyronine 5 mcg tablet 10 mcg PO DAILY THYROID 10/04/21 [History Last Taken 04/29/22] losartan 100 mg-hydrochlorothiazide 25 mg tablet 1 tab PO DAILY BP 10/04/21 [History Last Taken 04/29/22] gabapentin 100 mg tablet 300 mg PO BID back pain 11/29/21 [History Last Taken 04/29/22] hydrocodone-acetaminophen 5-325mg 5mg-325mg 1 tab PO Q8H PRN PRN Pain 04/26/22 [History Last Taken 04/29/22] hydroxyzine HCl 25 mg tablet 25 mg PO 4X/DAY PRN PRN Anxiety 04/26/22 [History Last Taken Unknown] meloxicam 15 mg tablet 15 mg PO DAILY pain 04/26/22 [History Last Taken 04/25/22] sucralfate 1 gram tablet 1 g PO 4X/DAY stomach 04/26/22 [History Last Taken 04/29/22] albuterol sulfate 90 mcg/actuation aerosol inhaler (Ventolin HFA) 1 inh inhalation Q6H PRN shortness of breath or wheezing #8.5 grams 04/28/22 [Rx Last Taken Unknown] carvedilol 6.25 mg tablet 6.25 mg PO BID blood pressure 04/29/22 [History Last Taken 04/29/22] famotidine 20 mg tablet 20 mg PO DAILY . 04/29/22 [History Last Taken 04/29/22] prednisone 10 mg tablet 10 mg PO DAILY steroid 04/29/22 [History Last Taken 04/29/22] ipratropium 0.5 mg-albuterol 3 mg (2.5 mg base)/3 mL nebulization soln 3 ml inhalation Q4H PRN shortness of breath or wheezing #180 mL 05/04/22 [Rx Last Taken Unknown] linezolid 600 mg tablet 600 mg PO Q12H 11 days #22 tabs 05/04/22 [Rx Last Taken Unknown] Allergy/AdvReac Type Severity Reaction Status Date / Time latex Allergy BLISTERS Verified 03/30/23 21:11 Iodinated Contrast Media AdvReac Hives Verified 03/30/23 21:11 [Iodinated Contrast Media - IV Dye] morphine AdvReac Nausea/Vom/ Verified 03/30/23 21:11 Diarrhea Family History Mother CVA (cerebral vascular accident) Heart disease Hypertension Sister Cancer Surgical History History of appendectomy History of laryngectomy History of tracheostomy Hx of cholecystectomy Hx of hernia repair Hx of hysterectomy Social History Smoking Status: Former smoker ROS ROS ED Constitutional Constitutional ED: Denies chills or fever(s) Eyes Eyes: Denies discharge from eye(s) ENT ENT ED: Denies discharge from eye(s) or sore throat Cardiovascular Cardiovascular: Denies chest pain or palpitations Respiratory/Chest Respiratory/Chest: Denies cough or dyspnea Gastrointestinal Gastrointestinal: Reports diarrhea; Denies abdominal pain, nausea or vomiting Genitourinary Genitourinary ED: Denies dysuria Musculoskeletal Musculoskeletal: Denies back pain or extremity pain Integumentary Denies Abrasions or rash Neurologic Neurologic: Denies headache(s) or weakness Psychiatric Psychiatric: Reports depression; Denies anxiety Allergic/Immunologic Allergic/Immunologic ED: Denies lip swelling or urticaria EXAM Physical Exam Const Vital Signs: 03/30/23 21:09 03/30/23 21:48 03/31/23 00:17 Temperature 98.0 F 97.6 F L Temperature Source Temporal Temporal Pulse Rate 128 H 112 H 109 H Respiratory Rate 18 16 25 H Blood Pressure 134/90 H 99/66 Blood Pressure Mean 104 77 Pulse Ox 93 96 98 Oxygen Delivery Method Room Air Venturi Mask Venturi Mask Fraction of Inspired Oxygen (FIO2) 50 50 Positive well nourished and well developed General Appearance ED: well developed HEENT Reports moist mucous membranes Eyes EOMs intact bilaterally Neck Neck Narrative: Tracheostomy in place. Chest Wall inspection of chest normal and palpation of chest normal Resp normal respiratory effort and clear to auscultation bilaterally Cardio regular rhythm Rate: tachycardic GI soft to palpation Neuro oriented x3 and no sensory deficits noted Motor Exam: strength 5/5 throughout Psych Mood & Affect: tearful MDM MDM MDM Narrative Medical decision making narrative: IV line established. Lab work for ED addiction medicine obtained. Given her loose malodorous stools stool series was also sent. Patient denies being on recent antibiotics. Lab Data Attestation: I reviewed the patient's lab results. Labs: Laboratory Results - last 24 hr 03/30/23 03/30/23 03/30/23 21:38 21:40 21:40 WBC 8.4 RBC 4.60 Hgb 15.1 H Hct 47.0 MCV 102.2 H MCH 32.8 H MCHC 32.1 RDW Std Deviation 52.1 H RDW Coeff of Rosa 13.8 Plt Count 296 MPV 9.2 Immature Gran % (Auto) 0.800 Neut % (Auto) 58.1 Lymph % (Auto) 28.5 [place] % (Auto) 5.7 Eos % (Auto) 5.2 H Baso % (Auto) 1.7 H Absolute Neuts (auto) 4.9 Absolute Lymphs (auto) 2.39 Nucleated RBC % 0 Sodium 140 Potassium 3.9 Chloride 103 Carbon Dioxide 26.0 Anion Gap 11 BUN 11 Creatinine 0.96 Estim Creat Clear Calc 59.20 Est GFR (MDRD) Af Amer 78 Est GFR (MDRD) Non-Af 65 BUN/Creatinine Ratio 11.5 Glucose 93 Calcium 8.8 Total Bilirubin 0.30 AST 62 H ALT 21 Alkaline Phosphatase 121 H Total Protein 8.0 Albumin 3.6 Globulin 4.4 H Albumin/Globulin Ratio 0.8 L Urine Opiates Screen NEGATIVE Urine Methadone Screen NEGATIVE Ur Barbiturates Screen NEGATIVE Ur Phencyclidine Scrn NEGATIVE Ur Amphetamines Screen NEGATIVE MDMA (Ecstasy) Screen NEGATIVE U Benzodiazepines Scrn NEGATIVE Urine Cocaine Screen NEGATIVE U Cannabinoids Screen NEGATIVE Ur Drug Screen Comment Ethyl Alcohol 03/30/23 21:40 WBC RBC Hgb Hct MCV MCH MCHC RDW Std Deviation RDW Coeff of Rosa Plt Count MPV Immature Gran % (Auto) Neut % (Auto) Lymph % (Auto) [place] % (Auto) Eos % (Auto) Baso % (Auto) Absolute Neuts (auto) Absolute Lymphs (auto) Nucleated RBC % Sodium Potassium Chloride Carbon Dioxide Anion Gap BUN Creatinine Estim Creat Clear Calc Est GFR (MDRD) Af Amer Est GFR (MDRD) Non-Af BUN/Creatinine Ratio Glucose Calcium Total Bilirubin AST ALT Alkaline Phosphatase Total Protein Albumin Globulin Albumin/Globulin Ratio Urine Opiates Screen Urine Methadone Screen Ur Barbiturates Screen Ur Phencyclidine Scrn Ur Amphetamines Screen MDMA (Ecstasy) Screen U Benzodiazepines Scrn Urine Cocaine Screen U Cannabinoids Screen Ur Drug Screen Comment Ethyl Alcohol 320.0 H* Treatment and Re-Evaluation Narrative: CBC elsa normal white count at 8.4. Hemoglobin is slightly concentrated at 15.1. Chemistry studies unremarkable with normal renal function. LFTs significant only for an alk phos of 121. Urine tox screen is negative. EtOH is 320. Stool for fecal leukocytes is negative. Remainder of stool series is still pending. Patient does request inpatient detox to help with her alcoholism. I will speak with the hospitalist. Discharge Plan Dx/Rx/DC Orders Clinical Impression: Desire for detoxification, Alcohol abuse Disposition [facility]
[2023-03-30 22:46] LABS: Absolute Lymphocyte Count 2.39 X10^3/uL (0.83-4.51); Absolute Neutrophil Count 4.9 X10^3/uL (2.0-7.7); Basophil# 0.14 X10^3/uL; Basophil% 1.7 % (0-1); Eosinophil# 0.44 X10^3/uL; Eosinophils% 5.2 % (0-5); Hemoglobin 15.1 g/dL (12.0-15.0); Lymphocyte # 2.39 X10^3/ul (0.83-4.51); Lymphocyte % 28.5 % (19-41); Mean Corp Hgb Conc 32.1 g/dL (32-36); Mean Corpuscular Hgb 32.8 pg (27.0-32.0); Mean Corpuscular Volume 102.2 fL (81-99); Mean Platelet Vol. 9.2 fl (6.2-12.0); Monocyte# 0.48 X10^3/uL; Monocyte% 5.7 % (0-10); NRBC Flagged by Analyzer 0 % (0-5); Neutrophil # 4.88 X10^3/uL (2.7-7.7); Neutrophil % 58.1 % (47-70); Platelet Count 296 K/mm3 (150-450); RBC Distribution Width CV 13.8 % (11.6-14.6); RBC Distribution Width SD 52.1 fl (35.1-43.9); White Blood Count 8.4 K/mm3 (4.4-11.0)
[2023-03-30 22:57] LABS: ALB/GLOB Ratio 0.8 RATIO (0.9-2.4); AST(SGOT) 62 U/L (15-37); Alanine Aminotransfer ALT/SGPT 21 U/L (13-56); Albumin, Serum 3.6 g/dL (3.2-5.0); Alkaline Phosphatase 121 U/L (45-117); Anion Gap 11 (5-15); BUN 11 mg/dL (7-18); BUN/Creat Ratio 11.5 RATIO (10-20); Calcium,Total 8.8 mg/dL (8.5-10.1); Chloride 103 mmol/L (98-107); Creatinine, Serum 0.96 mg/dL (0.55-1.02); EST Glomerular Filtration Rate 65 mL/min (>60); Est Glom Filt Rate - Afr Amer 78 mL/min (>60); Globulin 4.4 g/dL (2.2-4.2); Glucose 93 mg/dL (74-106); Potassium 3.9 mmol/L (3.5-5.1); Sodium Level 140 mmol/L (136-145)
[2023-03-30 23:11] LABS: Amphetamine Urine VISTA NEGATIVE (<1000 ng/mL); Barbiturate Urine VISTA NEGATIVE (< 200 ng/mL); Benzodiazepine Urine VISTA NEGATIVE (< 200 ng/mL); Cocaine Urine VISTA NEGATIVE (< 300 ng/mL); Ecstacy Urine VISTA NEGATIVE (< 500 ng/mL); Methadone Urine VISTA NEGATIVE (< 300 ng/mL); PCP Urine VISTA NEGATIVE (< 25 ng/mL); THC Urine VISTA NEGATIVE (< 50 ng/mL); Vista UDS pH Range 5
[2023-03-31] VITALS (8 sets, daily range): BP systolic 99–151; BP diastolic 59–90; PULSE 107–890; RESP 18–25; TEMP 36.8–37.3; O2SAT 50–98; BMI 37.5
--- NOTE | 2023-03-31 01:16 | HP.PCM.HOS_ITS ---
HPI - General General Date of Admission: 03/31/23 Date of Service: 03/31/23 Chief Complaint: Desire for alcohol detoxification HPI Narrative VJ MYERS, is a 52 F who with a significant history of laryngeal cancer status post laryngectomy and with tracheostomy who is here for alcohol detoxification. She drinks about 1/5 of hard liquor each day. She began drinking heavily since the beginning of this year 2022. On the day of presenta tion patient was drinking each day. Reportedly her drinking habits has worsened over the years. Last time she drank was about an hour prior to presentation. Also she reports of foul smelling multiple loose stools each day that has been going on for months. Emergency department doctor ordered and obtained stool samples at the ED. [facility] Medical History Alcohol use Anxiety Back pain Chest pain Chronic kidney disease (CKD) Chronic pain COPD (chronic obstructive pulmonary disease) Difficulty swallowing Essential hypertension Former smoker Gastric reflux GERD (gastroesophageal reflux disease) History of foreign body aspiration History of hiatal hernia History of pain when walking History of renal disease Hyperlipidemia Hypothyroidism Influenza A Kidney disease Larynx cancer Leg cramps Morbid obesity Obesity Restless legs Shortness of breath on exertion Thyroid disease Wears dentures Home Medications atorvastatin 10 mg tablet 10 mg PO QHS cholesterol 01/11/21 [History Last Taken 04/25/22] sertraline 50 mg tablet 75 mg PO DAILY depression 01/11/21 [History Last Taken 04/29/22] levothyroxine 112 mcg tablet 137 mcg PO DAILY THYROID 10/04/21 [History Last Taken 04/29/22] liothyronine 5 mcg tablet 10 mcg PO DAILY THYROID 10/04/21 [History Last Taken 04/29/22] losartan 100 mg-hydrochlorothiazide 25 mg tablet 1 tab PO DAILY BP 10/04/21 [History Last Taken 04/29/22] gabapentin 100 mg tablet 300 mg PO BID back pain 11/29/21 [History Last Taken 04/29/22] hydrocodone-acetaminophen 5-325mg 5mg-325mg 1 tab PO Q8H PRN PRN Pain 04/26/22 [History Last Taken 04/29/22] hydroxyzine HCl 25 mg tablet 25 mg PO 4X/DAY PRN PRN Anxiety 04/26/22 [History Last Taken Unknown] albuterol sulfate 90 mcg/actuation aerosol inhaler (Ventolin HFA) 1 inh inhalation Q6H PRN shortness of breath or wheezing #8.5 grams 04/28/22 [Rx Last Taken Unknown] carvedilol 6.25 mg tablet 6.25 mg PO BID blood pressure 04/29/22 [History Last Taken 04/29/22] famotidine 20 mg tablet 20 mg PO DAILY . 04/29/22 [History Last Taken 04/29/22] ipratropium 0.5 mg-albuterol 3 mg (2.5 mg base)/3 mL nebulization soln 3 ml inhalation Q4H PRN shortness of breath or wheezing #180 mL 05/04/22 [Rx Last Taken Unknown] Allergy/AdvReac Type Severity Reaction Status Date / Time adhesive tape [tape] Allergy Hives Verified 03/31/23 02:26 latex Allergy BLISTERS Verified 03/30/23 21:11 Iodinated Contrast Media AdvReac Hives Verified 03/30/23 21:11 [Iodinated Contrast Media - IV Dye] morphine AdvReac Nausea/Vom/ Verified 03/30/23 21:11 Diarrhea Family History Mother CVA (cerebral vascular accident) Heart disease Hypertension Sister Cancer Surgical History History of appendectomy History of laryngectomy History of tracheostomy Hx of cholecystectomy Hx of hernia repair Hx of hysterectomy Social History Smoking Status: Former smoker ROS ROS Narrative Pertinent positives and pertinent negatives as noted in HPI. All other systems were reviewed and are negative Vital Signs Vital Signs Vital Signs: 03/30/23 21:09 03/30/23 21:48 03/31/23 00:17 Temperature 98.0 F 97.6 F L Temperature Source Temporal Temporal Pulse Rate 128 H 112 H 109 H Respiratory Rate 18 16 25 H Blood Pressure 134/90 H 99/66 Blood Pressure Mean 104 77 Pulse Ox 93 96 98 Oxygen Delivery Method Room Air Venturi Mask Venturi Mask Fraction of Inspired Oxygen (FIO2) 50 50 Weight Weight: 93.44 kg Body Mass Index (BMI) 35.3 Physical Exam Narrative Physical exam: General: Well-nourished, well-developed. Head: Normocephalic, atraumatic, no tenderness Eyes: Vision is grossly intact. EOMI ENT tracheostomy hole in place, moist mucous membranes, no rhinorrhea Neck: Nontender, No thyromegaly. CVS: Regular rate and rhythm. S1-S2 present. No murmur, gallop or rub. Respiratory : clear to auscultation bilaterally, chest wall nontender Abdomen: Soft, nontender, nondistended, normal bowel sounds, no masses : Deferred Back: Nontender, no CVA tenderness, no midline spinal tenderness, deformities, step-offs Extremities: Nontender full range of motion, no trauma Skin: Normal color, no trauma, abrasions Neuro: Alert, oriented, cranial nerves II through XII grossly intact. Psychiatry: Normal mood. Normal affect. Not depressed. Not anxious. Results Lab / Micro Data Result Diagrams: 03/30/23 21:40 03/30/23 21:40 Labs: Laboratory Results - last 24 hr 03/30/23 21:38: Urine Opiates Screen NEGATIVE, Urine Methadone Screen NEGATIVE, Ur Barbiturates Screen NEGATIVE, Ur Phencyclidine Scrn NEGATIVE, Ur Amphetamines Screen NEGATIVE, MDMA (Ecstasy) Screen NEGATIVE, U Benzodiazepines Scrn NEGATIVE, Urine Cocaine Screen NEGATIVE, U Cannabinoids Screen NEGATIVE, Ur Drug Screen Comment 03/30/23 21:40: WBC 8.4, RBC 4.60, Hgb 15.1 H, Hct 47.0, MCV 102.2 H, MCH 32.8 H , MCHC 32.1, RDW Std Deviation 52.1 H, RDW Coeff of Rosa 13.8, Plt Count 296, MPV 9.2, Immature Gran % (Auto) 0.800, Neut % (Auto) 58.1, Lymph % (Auto) 28.5, [place] % (Auto) 5.7, Eos % (Auto) 5.2 H, Baso % (Auto) 1.7 H, Absolute Neuts (auto) 4.9, Absolute Lymphs (auto) 2.39, Nucleated RBC % 0 03/30/23 21:40: Sodium 140, Potassium 3.9, Chloride 103, Carbon Dioxide 26.0, Anion Gap 11, BUN 11, Creatinine 0.96, Estim Creat Clear Calc 59.20, Est GFR (MDRD) Af Amer 78, Est GFR (MDRD) Non-Af 65, BUN/Creatinine Ratio 11.5, Glucose 93, Calcium 8.8, Total Bilirubin 0.30, AST 62 H, ALT 21, Alkaline Phosphatase 121 H, Total Protein 8.0, Albumin 3.6, Globulin 4.4 H, Albumin/Globulin Ratio 0.8 L 03/30/23 21:40: Ethyl Alcohol 320.0 H* Micro: Microbiology 03/30/23 22:40 Stool Stool Lactoferrin - Final Assessment & Plan Assessment/Plan (1) Desire for detoxification: (2) Alcohol abuse: (3) Obesity: (4) Diarrhea: PLAN: Plan Alcohol dependence and desire for detoxification Alcohol level on presentation was 320. Urine toxicology was negative. Patient be started on phenobarbital and other adjunctive medications: Gabapentin as needed; dicyclomine as needed; Vistaril as needed; Imodium as needed; trazodone as needed; Zofran as needed; scheduled thiamine; and schedule folic acid. Monitor CIWA score Hypertension Blood pressure is not within goal Home blood pressure medication continued. Trend blood pressure and adjust blood pressure medications. Morbid Obesity: BMI: 37.5 kg/m?. Complicates care. Lifestyle modification recommended. Diarrhea Stool studies obtained in the ED Follow DVT prophylaxis Low risk Encourage to ambulate Charges/Coding Visit Charges Inpatient E&M: 97785 Init Hosp L2
[2023-03-31] MEDS: Phenobarbital 32.4 MG Tablet 97.2 MG PO ×3 (03:29→11:10)
[2023-03-31] MEDS: Acetaminophen 325 MG Tablet 650 MG PO (06:10)
[2023-03-31] MEDS: Thiamine Hydrochloride 100 MG Tablet PO (07:47)
[2023-03-31] MEDS: Folic Acid 1 MG Tablet PO (07:47)
[2023-03-31] MEDS: Enoxaparin 40 MG/0.4 ML Syringe SC (11:10)
--- NOTE | 2023-03-31 11:18 | NURSING ---
Pt is complaining of her trach opening leaking all po intake of fluids when she drinks. Pt sees Dr. Pantoja for this is notified and a consult to [facility] for eval and treat. Phone call to ENT and per nurse pt was referred out to for further treatment. New order for speech therapy to eval and treat.
--- NOTE | 2023-03-31 11:48 | PCM.HOSP.N ---
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 Until then, we will have speech therapy see the patient. According to nursing, patient has only been able to eat applesauce consistency foods at home.
[2023-03-31] MEDS: Sertraline 50 MG Tablet 75 MG PO (13:29)
[2023-03-31] MEDS: Famotidine 20 MG Tablet PO (13:29)
[2023-03-31] MEDS: Gabapentin 300 MG Capsule PO (13:29)
--- NOTE | 2023-03-31 14:09 | ADDICTION ---
This creative services writer met with PT to conduct ASAM, MSE, AUDIT, DUDIT assessments and to plan for d/c. PT A+Ox4 and participated actively. All assessments completed and placed in PT's chart. PT plans to f/u with [facility] in [place] for follow-up outpatient treatment services. ?PT did not indicate a need for transportation post d/c from [facility].
--- NOTE | 2023-03-31 17:52 | DS.PCM_ITS ---
Providers Date of Admission: 03/31/23 Primary Care Physician: CHARY Nava Reason For Visit: DESIRE FOR DETOXIFICATION Diagnosis Discharge Diagnosis (1) Desire for detoxification: Status: Acute (2) Alcohol abuse: Status: Acute Code(s): F10.10 - Alcohol abuse, uncomplicated (3) Obesity: Status: Chronic Code(s): E66.9 - Obesity, unspecified (4) Diarrhea: Status: Chronic Code(s): R19.7 - Diarrhea, unspecified Plan 1. Acute alcohol withdrawal #2 chronic alcoholism #3 dysfunctional voice prosthesis #4 hyperlipidemia #5 hypothyroidism #6 chronic depression #7 essential hypertension #8 chronic diarrhea-etiology unclear Medications at Discharge Home Medications atorvastatin 10 mg tablet 10 mg PO QHS cholesterol 01/11/21 sertraline 50 mg tablet 75 mg PO DAILY depression 01/11/21 levothyroxine 112 mcg tablet 137 mcg PO DAILY THYROID 10/04/21 liothyronine 5 mcg tablet 10 mcg PO DAILY THYROID 10/04/21 losartan 100 mg-hydrochlorothiazide 25 mg tablet 1 tab PO DAILY BP 10/04/21 gabapentin 100 mg tablet 300 mg PO BID back pain 11/29/21 hydrocodone-acetaminophen 5-325mg 5mg-325mg 1 tab PO Q8H PRN PRN Pain 04/26/22 hydroxyzine HCl 25 mg tablet 25 mg PO 4X/DAY PRN PRN Anxiety 04/26/22 albuterol sulfate 90 mcg/actuation aerosol inhaler (Ventolin HFA) 1 inh inhalation Q6H PRN shortness of breath or wheezing #8.5 grams 04/28/22 carvedilol 6.25 mg tablet 6.25 mg PO BID blood pressure 04/29/22 famotidine 20 mg tablet 20 mg PO DAILY . 04/29/22 ipratropium 0.5 mg-albuterol 3 mg (2.5 mg base)/3 mL nebulization soln 3 ml inhalation Q4H PRN shortness of breath or wheezing #180 mL 05/04/22 Hospital Course Operations None Procedures None Summary of Care Provided Minutes Spent on Discharge: 70 Hospital Course: This 52-year-old white female was seen in the emergency room at [facility] requesting services for alcohol detox. Patient's medical pro blems included essential hypertension, hypothyroidism, and previous tracheostomy due to laryngeal cancer. Patient was admitted to MedSurg 3, orders were entered using alcohol detox order set and she was seen in consultation by addiction director social. Patient had a chronic leakage of esophageal contents into her voice prosthesis, this appeared to be a chronic problem that the patient had not addressed as an outpatient, she was seen in the hospital by speech therapy and speech therapy recommended the patient be strictly n.p.o. I attempted to get the patient transferred to [facility] without success, [facility] was going to give me a call back to let me know whether they could except the patient and the patient decided to sign out AMA. On 03/31/2023, patient was seen and examined: On examination she appeared in good health and spirits, she does not appear to be in any distress. Vital signs as documented. Skin warm and dry and without overt rashes. Neck-there is a perman ent stoma in place. Lungs clear, normal air movement was noted. Heart exam notable for regular rhythm, normal sounds and absence of murmurs, rubs or gallops. Abdomen unremarkable and without evidence of organomegaly, masses, or abdominal aortic enlargement, bowel sounds are present in all 4 quadrants, no abdominal tenderness was noted. Extremities nonedematous, no cyanosis was noted, no clubbing was noted. Neuro: Cranial nerves II through XII are grossly intact, no focal motor deficits were noted, sensation to light touch and pinprick is intact, motor exam 5/5 throughout. Psych: Patient is alert and oriented x3, she does not appear anxious or depressed, she does not appear agitated. Patient was discharged AGAINST MEDICAL ADVICE on 03/31/2023, she told nursing that she was going to go to [facility] for replacement of her voice prosthesis. I let the emergency room here know that we were not able to except the patient for detox services if she came back here due to this medical problems she had with her voice prosthesis, I also let addiction director social know that the patient could not be admitted here unless this was addressed before she was admitted here again. Medical Records Data Medical Nutrition Assessment Dietitian: Malnutrition Criteria Met Start: 03/31/23 11:53 Freq: Status: Active Protocol: Document 03/31/23 11:53 LO (Rec: 03/31/23 11:53 [id number]) Nutrition Malnutrition Evidence of Malnutrition Exists Yes Malnutrition (severe): Chronic Intake Problem Inadequate Oral Intake Etiology related to inability to consume sufficient energy and alcohol use Signs/Symptoms as evidenced by leaking trach with PO intake and pt only consuming alcohol station captain. Status Active Problem Clinical Problem Chronic Disease or Condition Related Malnutrition Etiology severe related to alcohol abuse Signs/Symptoms as evidenced by 55lbs (21.1%) weight loss in 11 months and PO intakes <75% of estimated energy needs for >1 month Status Active Problem Recommendation Dietitian Recommendations/Changes RD will liberalize diet to Regular to optimize oral intakes and promote weight maintenance. RD will order 120mL EPHP TID with medpass and Ensure Pudding BID with meals to provide supplemental energy and promote weight maintenance . Weight / BMI Weight Weight: 93 kg Body Mass Index (BMI) 37.5 ABG / Lab / Microbiology Data Result Diagrams: 03/30/23 21:40 03/30/23 21:40 Laboratory: Laboratory Results - last 24 hr 03/30/23 21:38: Urine Opiates Screen NEGATIVE, Urine Methadone Screen NEGATIVE, Ur Barbiturates Screen NEGATIVE, Ur Phencyclidine Scrn NEGATIVE, Ur Amphetamines Screen NEGATIVE, MDMA (Ecstasy) Screen NEGATIVE, U Benzodiazepines Scrn NEGATIVE, Urine Cocaine Screen NEGATIVE, U Cannabinoids Screen NEGATIVE, Ur Drug Screen Comment 03/30/23 21:40: WBC 8.4, RBC 4.60, Hgb 15.1 H, Hct 47.0, MCV 102.2 H, MCH 32.8 H , MCHC 32.1, RDW Std Deviation 52.1 H, RDW Coeff of Rosa 13.8, Plt Count 296, MPV 9.2, Immature Gran % (Auto) 0.800, Neut % (Auto) 58.1, Lymph % (Auto) 28.5, [place] % (Auto) 5.7, Eos % (Auto) 5.2 H, Baso % (Auto) 1.7 H, Absolute Neuts (auto) 4.9, Absolute Lymphs (auto) 2.39, Nucleated RBC % 0 03/30/23 21:40: Sodium 140, Potassium 3.9, Chloride 103, Carbon Dioxide 26.0, Anion Gap 11, BUN 11, Creatinine 0.96, Estim Creat Clear Calc 59.20, Est GFR (MDRD) Af Amer 78, Est GFR (MDRD) Non-Af 65, BUN/Creatinine Ratio 11.5, Glucose 93, Calcium 8.8, Total Bilirubin 0.30, AST 62 H, ALT 21, Alkaline Phosphatase 121 H, Total Protein 8.0, Albumin 3.6, Globulin 4.4 H, Albumin/Globulin Ratio 0.8 L 03/30/23 21:40: Ethyl Alcohol 320.0 H* Microbiology: Microbiology 03/30/23 22:40 Stool Stool Lactoferrin - Final 03/30/23 22:40 Stool Enteric Bacteriology - Final 03/30/23 22:40 Stool C. difficile DNA Amplification - Final Meaningful Use Info Meaningful Use Diagnoses (Choose all that apply): None applicable Discharge Plan Admission Admit Date/Time: 03/31/23 01:19 Attending Provider: Bartolo Bernal Primary Care Provider: Rhea Rose NP Consulting Providers: Robe Greenwood Discharge Orders/Prescriptions Prescriptions: No Action sertraline 50 MG tablet 75 mg PO DAILY atorvastatin 10 MG tablet 10 mg PO QHS liothyronine 5 mcg tablet 10 mcg PO DAILY losartan-hydrochlorothiazide 100-25 mg tablet 1 tab PO DAILY levothyroxine 112 mcg tablet 137 mcg PO DAILY gabapentin 100 mg Tablet 300 mg PO BID hydrocodone-acetaminophen 5-325 mg tablet 1 tab PO Q8H PRN PRN (Reason: Pain) hydroxyzine HCl 25 mg tablet 25 mg PO 4X/DAY PRN PRN (Reason: Anxiety) albuterol sulfate [Ventolin HFA] 90 mcg/actuation HFA aerosol inhaler 1 inh inhalation Q6H PRN (Reason: shortness of breath or wheezing) Qty: 8.5 0RF famotidine 20 mg Tablet 20 mg PO DAILY carvedilol 6.25 mg tablet 6.25 mg PO BID ipratropium-albuterol 0.5 mg-3 mg(2.5 mg base)/3 mL solution for nebulization 3 ml inhalation Q4H PRN (Reason: shortness of breath or wheezing) Qty: 180 1RF Referrals / Follow Up: Rhea Rose NP, ENVIRONMENTAL FIELD TECHNICIAN-C [Primary Care Provider] - Disposition Discharge Orders: Discharge Patient (Routine); Ordered 03/31/23 Ordered By: Dr. Bartolo Bernal Charges/Coding Visit Charges OBSV E&M: 72274 Observ/hosp same date L2
== END 2023-03-31 19:00 | disposition left against medical advice (07) | DRG 894 ==
LOC: ED 23:17 → MS3 03-31 01:49
PROVIDERS: Admitting Provider Hospitalist; Emergency Provider Emergency Medicine; PCP Nurse Practitioner Family; Visit Provider Internal Medicine
DX: F10.239 Alcohol dependence with withdrawal, unspecified (principal); T85.638A Leakage of other specified internal prosthetic devices, implants and grafts, initial encounter; Z93.0 Tracheostomy status; J44.9 Chronic obstructive pulmonary disease, unspecified; E66.01 Morbid (severe) obesity due to excess calories; E03.9 Hypothyroidism, unspecified; E78.5 Hyperlipidemia, unspecified; N18.9 Chronic kidney disease, unspecified; I12.9 Hypertensive chronic kidney disease with stage 1 through stage 4 chronic kidney disease, or unspecified chronic kidney disease; K52.9 Noninfective gastroenteritis and colitis, unspecified; K21.9 Gastro-esophageal reflux disease without esophagitis; Z53.29 Procedure and treatment not carried out because of patient's decision for other reasons; R13.10 Dysphagia, unspecified; G89.29 Other chronic pain; Y90.8 Blood alcohol level of 240 mg/100 ml or more; Z68.37 Body mass index [BMI] 37.0-37.9, adult; Z79.890 Hormone replacement therapy; Z79.899 Other long term (current) drug therapy; Z85.21 Personal history of malignant neoplasm of larynx; Z87.891 Personal history of nicotine dependence
CPT/HCPCS: 80053; 80307; 82077; 83630; 85025; 87177; 87209; 87493; 87506; 92610; 97802; 99284; A4216

== ENCOUNTER 2024-03-21 15:17 | Inpatient (IN) | payer MEDICARE, MEDICAID, SELFPAY ==
[2024-03-21] VITALS (14 sets, daily range): BP systolic 89–126; BP diastolic 60–80; PULSE 74–95; RESP 13–19; TEMP 35.7–37.1; O2SAT 89–98; BMI 33.3
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
[2024-03-21 16:44] LABS: Absolute Lymphocyte Count 2.32 X10^3/uL (0.83-4.51); Absolute Neutrophil Count 4.8 X10^3/uL (2.0-7.7); Basophil# 0.08 X10^3/uL; Eosinophil# 0.22 X10^3/uL; Eosinophils% 2.8 % (0-5); Hematocrit 36.9 % (37-47); Lymphocyte # 2.32 X10^3/ul (0.83-4.51); Lymphocyte % 29.5 % (19-41); Mean Corp Hgb Conc 32.5 g/dL (32-36); Mean Corpuscular Hgb 28.3 pg (27.0-32.0); Mean Platelet Vol. 10.1 fl (6.2-12.0); Monocyte# 0.45 X10^3/uL; Monocyte% 5.7 % (0-10); NRBC Flagged by Analyzer 0 % (0-5); Neutrophil # 4.76 X10^3/uL (2.7-7.7); Neutrophil % 60.5 % (47-70); Platelet Count 373 K/mm3 (150-450); RBC Distribution Width CV 14.8 % (11.6-14.6); RBC Distribution Width SD 46.7 fl (35.1-43.9); Red Blood Count 4.24 M/mm3 (4.2-5.4); White Blood Count 7.9 K/mm3 (4.4-11.0)
[2024-03-21 16:54] LABS: Internal QC Validated? YES +Cl - CLEAR BKGD; Pregnancy, Serum, hCG Quali. NEGATIVE Negative
[2024-03-21 16:56] LABS: ALB/GLOB Ratio 0.9 RATIO (0.9-2.4); AST(SGOT) 13 U/L (15-37); Alanine Aminotransfer ALT/SGPT < 6 U/L (13-56); Alkaline Phosphatase 84 U/L (45-117); Anion Gap 8 (5-15); BUN 9 mg/dL (7-18); BUN/Creat Ratio 6.7 RATIO (10-20); Calcium,Total 8.9 mg/dL (8.5-10.1); Chloride 105 mmol/L (98-107); Creatinine, Serum 1.35 mg/dL (0.55-1.02); EST Glomerular Filtration Rate 44 mL/min (>60); Est Glom Filt Rate - Afr Amer 53 mL/min (>60); Globulin 3.3 g/dL (2.2-4.2); Glucose 92 mg/dL (74-106); Protein, Total 6.3 g/dL (6.4-8.2); Sodium Level 140 mmol/L (136-145)
[2024-03-21 17:20] LABS: Amphetamine Urine VISTA NEGATIVE (<1000 ng/mL); Barbiturate Urine VISTA NEGATIVE (< 200 ng/mL); Benzodiazepine Urine VISTA NEGATIVE (< 200 ng/mL); Cocaine Urine VISTA NEGATIVE (< 300 ng/mL); Ecstacy Urine VISTA NEGATIVE (< 500 ng/mL); Methadone Urine VISTA NEGATIVE (< 300 ng/mL); PCP Urine VISTA NEGATIVE (< 25 ng/mL); THC Urine VISTA NEGATIVE (< 50 ng/mL); Vista UDS pH Range 5
[2024-03-21] MEDS: 0.9% Normal Saline (1000mL) 1,000 ML 999 ML IV ×2 (17:26→22:45)
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
[2024-03-21 18:27] LABS: Magnesium 1.8 mg/dL (1.6-2.6); Phosphorus 3.6 mg/dL (2.5-4.9)
[2024-03-21] MEDS: Lactated Ringers 1,000 ML 125 ML IV (19:22)
[2024-03-21] MEDS: Phenobarbital 32.4 MG Tablet 97.2 MG PO ×2 (19:28→22:28)
[2024-03-21] MEDS: Lactated Ringers 1,000 ML 999 ML IV (21:00)
[2024-03-21] MEDS: Atorvastatin Calcium 20 MG Tablet PO (21:41)
--- NOTE | 2024-03-21 22:33 | PCM.HOSP.N ---
Hospitalist Note Patient hypotensive, possibly secondary to phenobarbital. D/C HTN regimen at this time and will give IVF bolus.
[2024-03-22] VITALS (11 sets, daily range): BP systolic 91–126; BP diastolic 37–94; PULSE 71–81; RESP 10–16; TEMP 36.6–36.9; O2SAT 94–100; BMI 34.8
[2024-03-22 05:01] LABS: Absolute Neutrophil Count 2.9 X10^3/uL (2.0-7.7); Basophil# 0.07 X10^3/uL; Basophil% 1.4 % (0-1); Eosinophil# 0.16 X10^3/uL; Eosinophils% 3.2 % (0-5); Hematocrit 34.2 % (37-47); Hemoglobin 10.7 g/dL (12.0-15.0); Lymphocyte % 29.9 % (19-41); Mean Corp Hgb Conc 31.3 g/dL (32-36); Mean Corpuscular Hgb 27.9 pg (27.0-32.0); Mean Corpuscular Volume 89.3 fL (81-99); Monocyte# 0.41 X10^3/uL; Monocyte% 8.2 % (0-10); NRBC Flagged by Analyzer 0 % (0-5); Neutrophil # 2.86 X10^3/uL (2.7-7.7); Neutrophil % 56.9 % (47-70); Platelet Count 231 K/mm3 (150-450); RBC Distribution Width CV 15.2 % (11.6-14.6); RBC Distribution Width SD 49.4 fl (35.1-43.9); Red Blood Count 3.83 M/mm3 (4.2-5.4)
[2024-03-22 05:24] LABS: Anion Gap 2 (5-15); BUN 8 mg/dL (7-18); BUN/Creat Ratio 7.7 RATIO (10-20); Calcium,Total 8.4 mg/dL (8.5-10.1); Chloride 111 mmol/L (98-107); Creatinine, Serum 1.04 mg/dL (0.55-1.02); EST Glomerular Filtration Rate 59 mL/min (>60); Est Glom Filt Rate - Afr Amer 71 mL/min (>60); Estimated Creatinine Clearance 63.82 ml/min; Glucose 100 mg/dL (74-106); Potassium 3.8 mmol/L (3.5-5.1); Sodium Level 141 mmol/L (136-145); T4 Free Direct 1.14 ng/dL (0.76-1.46); Thyroid Stim Hormone (TSH) 3.03 uIU/mL (0.358-3.74)
[2024-03-22] MEDS: Levothyroxine 137 MCG Tablet PO (05:25)
--- NOTE | 2024-03-22 07:12 | PCM.PN.HOSP ---
Reason for Visit Reason for Visit: Diagnoses Alcohol abuse, uncomplicated (03/21/24) Subjective Subjective Patient is a 53-year-old lady with history of laryngeal CA status post tracheostomy who presented to the emergency department seeking help from alcohol dependence. Admitted to regular nursing floor for further management Objective Data Objective Data Vital Signs: Vital Signs Temp Pulse Resp BP Pulse Ox O2 Del Method O2 Flow Rate 98.4 F 71 12 124/88 H 100 Trach Collar 2 03/22/24 05:00 03/22/24 06:00 03/22/24 06:00 03/22/24 06:00 03/22/24 06:00 03/22/24 06:00 03/22/24 06:00 Oxygen Flow Rate (L/min) 2 Oxygen Delivery Method Trach Collar Weight: 86.4 kg Body Mass Index (BMI) 34.8 Intake & Output: Intake and Output for Last 24 Hours 03/20/24 03/21/24 03/22/24 23:59 23:59 23:59 Intake Total 3200 / 3200 1000 / 1000 Output Total 175 / 175 Balance 3025 / 3025 1000 / 1000 Lab / Micro Data 03/22/24 04:50 03/22/24 04:50 Labs: Laboratory Results - last 24 hr 03/21/24 16:10: WBC 7.9, RBC 4.24, Hgb 12.0, Hct 36.9 L, MCV 87.0, MCH 28.3, MCHC 32.5, RDW Std Deviation 46.7 H, RDW Coeff of Rosa 14.8 H, Plt Count 373, MPV 10.1, Immature Gran % (Auto) 0.500, Neut % (Auto) 60.5, Lymph % (Auto) 29.5, [place] % (Auto) 5.7, Eos % (Auto) 2.8, Baso % (Auto) 1.0, Absolute Neuts (auto) 4.8, Absolute Lymphs (auto) 2.32, Nucleated RBC % 0, Sodium 140, Potassium 4.0, Chloride 105, Carbon Dioxide 27.0, Anion Gap 8, BUN 9, Creatinine 1.35 H, Est GFR (MDRD) Af Amer 53 L, Est GFR (MDRD) Non-Af 44 L, BUN/Creatinine Ratio 6.7 L, Glucose 92, Calcium 8.9, Phosphorus 3.6, Magnesium 1.8, Total Bilirubin 0.30, AST 13 L, ALT < 6 L, Alkaline Phosphatase 84, Total Protein 6.3 L, Albumin 3.0 L, Globulin 3.3, Albumin/Globulin Ratio 0.9, Serum , Qual NEGATIVE, Ethyl Alcohol 170.0 03/21/24 16:50: Urine Opiates Screen NEGATIVE, Urine Methadone Screen NEGATIVE, Ur Barbiturates Screen NEGATIVE, Ur Phencyclidine Scrn NEGATIVE, Ur Amphetamines Screen NEGATIVE, MDMA (Ecstasy) Screen NEGATIVE, U Benzodiazepines Scrn NEGATIVE, Urine Cocaine Screen NEGATIVE, U Cannabinoids Screen NEGATIVE, Ur Drug Screen Comment 03/22/24 04:50: WBC 5.0, RBC 3.83 L, Hgb 10.7 L, Hct 34.2 L, MCV 89.3, MCH 27.9, MCHC 31.3 L, RDW Std Deviation 49.4 H, RDW Coeff of Rosa 15.2 H, Plt Count 231, MPV 10.0, Immature Gran % (Auto) 0.400, Neut % (Auto) 56.9, Lymph % (Auto) 29.9, [place] % (Auto) 8.2, Eos % (Auto) 3.2, Baso % (Auto) 1.4 H, Absolute Neuts (auto) 2.9, Absolute Lymphs (auto) 1.50, Nucleated RBC % 0, Sodium 141, Potassium 3.8, Chloride 111 H, Carbon Dioxide 28.0, Anion Gap 2 L, BUN 8, Creatinine 1.04 H, Estim Creat Clear Calc 63.82, Est GFR (MDRD) Af Amer 71, Est GFR (MDRD) Non-Af 59 L, BUN/Creatinine Ratio 7.7 L, Glucose 100, Calcium 8.4 L, TSH 3.03, Free T4 1.14 Physical Exam Narrative GENERAL: cooperative HEENT: Atraumatic; tracheostomy stoma in place EYES; Anicteric, Normal Conjunctiva NECK; supple, normal thyroid, RESPIRATORY: Diminished to auscultation CARDIOVASCULAR: Regular S1 S2, GI: soft, normoactive bowel sounds, : No Renal angle tenderness; EXTREMITIES: No edema, no clubbing, MUSCULOSKELETAL: no muscle wasting NEURO: Awake; no lateralizing signs. SKIN: No Rash PSYCH; Flat affect Assessment & Plan Assessment/Plan (1) Desire for detoxification: (2) Alcohol abuse: PLAN: Plan Patient is a 53-year-old lady with history of laryngeal CA status post tracheostomy who presented to the emergency department seeking help from alcohol dependence. Admitted to regular nursing floor for further management 1. Chronic alcohol dependence at risk for withdrawal ? Patient has been admitted to regular nursing floor managed with phenobarb along with adjuvant medications including gabapentin, Bentyl, hydroxyzine and clonidine as needed for alcohol withdrawal symptoms. Patient was also placed on thiamine and folic acid 2. Laryngeal CA ? Status post tracheostomy. Patient was supposed to be on vent at night however does not use significant 3. COPD ? Currently not in exacerbation aerosol treatment as needed 4. Acute kidney injury ? Baseline creatinine 0.9, creatinine on admission was 1.35 managed with IV fluid with subsequent monitoring of electrolyte 5. CKD stage IIIa rule out 6. Hypertension - Blood pressure controlled, home medications continued with dose adjustment as needed 7. Dyslipidemia -Patient is on statin therapy, continued at home dose 8. Hypothyroidism on levo and liothyronine. Levothyroxine was held on admission resumed 9. GERD ? On PPI 10. Depression with anxiety ? Patient was prescribed citalopram and apparently noncompliant 11. Class I obesity with BMI of 34.8 ? Complicating care weight loss advised 11. DVT prophylaxis ? SC Lovenox Time spent in the patient's overall evaluation,decision-making process, review of diagnostic data, adjustment of management, discussion with other providers, nursing nursing and ancillary staff involved in patient's care documentation, 52 Minutes Charges/Coding Visit Charges Inpatient E&M: 58504 [facility] Hosp L3
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
--- NOTE | 2024-03-22 12:04 | CASEMGMT ---
ORI spoke with [place], rail specialist and she will be in later to see patient. ORI did let Dallas know patient may leave AMA. Dallas asked that ORI notify her if that is the case. Rosa Robles [facility] [employer] ANNA
--- NOTE | 2024-03-22 12:58 | DS.PCM_ITS ---
Providers Date of Admission: 03/21/24 Date of Discharge: 03/22/24 Primary Care Physician: CHARY Nava Consultations 03/21/24 18:39 Consult: [employer] / Pulmonary Medicine Routine Consulting Provider: Intensivists/Pulmonary Med Reason for Consult: TRACHESTOMY on vent EMERGENT Consult: No MD Notified: Yes Date Notified: 03/21/24 Time Notified: 17:44 Method of Notification: ED Physician Initiated Reason For Visit: ALCOHOL USE WITHDRAWL Diagnosis Discharge Diagnosis (1) Desire for detoxification: Status: Acute (2) Alcohol abuse: Status: Acute Code(s): F10.10 - Alcohol abuse, uncomplicated Plan Patient is a 53-year-old lady with history of laryngeal CA status post tracheostomy who presented to the emergency department seeking help from alcohol dependence. Admitted to regular nursing floor for further management 1. Chronic alcohol dependence at risk for withdrawal ? Patient has been admitted to regular nursing floor managed with phenobarb along with adjuvant medications including gabapentin, Bentyl, hydroxyzine and clonidine as needed for alcohol withdrawal symptoms. Patient was also placed on thiamine and folic acid 2. Laryngeal CA ? Status post tracheostomy. Patient was supposed to be on vent at night however does not use significant 3. COPD ? Currently not in exacerbation aerosol treatment as needed 4. Acute kidney injury ? Baseline creatinine 0.9, creatinine on admission was 1.35 managed with IV fluid with subsequent monitoring of electrolyte 5. CKD stage IIIa rule out 6. Hypertension - Blood pressure controlled, home medications continued with dose adjustment as needed 7. Dyslipidemia -Patient is on statin therapy, continued at home dose 8. Hypothyroidism on levo and liothyronine. Levothyroxine was held on admission resumed 9. GERD ? On PPI 10. Depression with anxiety ? Patient was prescribed citalopram and apparently noncompliant 11. Class I obesity with BMI of 34.8 ? Complicating care weight loss advised 11. DVT prophylaxis ? SC Lovenox Time spent in the patient's overall evaluation,decision-making process, review of diagnostic data, adjustment of management, discussion with other providers, nursing nursing and ancillary staff involved in patient's care documentation, 52 Minutes Patient left AGAINST MEDICAL ADVICE attempt made for patient to rescind her decision proved futile. She was instructed to come back to the emergency department if she change her mind Medications at Discharge Home Medications atorvastatin 10 mg tablet 20 mg PO QHS cholesterol 01/11/21 sertraline 50 mg tablet 75 mg PO DAILY depression 01/11/21 levothyroxine 112 mcg tablet 137 mcg PO DAILY THYROID 10/04/21 liothyronine 5 mcg tablet 10 mcg PO DAILY THYROID 10/04/21 losartan 100 mg-hydrochlorothiazide 25 mg tablet 1 tab PO DAILY BP 10/04/21 gabapentin 100 mg tablet 300 mg PO BID back pain 11/29/21 hydrocodone-acetaminophen 5-325mg 5mg-325mg 1 tab PO Q8H PRN PRN Pain 04/26/22 hydroxyzine HCl 25 mg tablet 25 mg PO 4X/DAY PRN PRN Anxiety 04/26/22 albuterol sulfate 90 mcg/actuation aerosol inhaler (Ventolin HFA) 1 inh inhalation Q6H PRN shortness of breath or wheezing #8.5 grams 04/28/22 carvedilol 6.25 mg tablet 6.25 mg PO BID blood pressure 04/29/22 ipratropium 0.5 mg-albuterol 3 mg (2.5 mg base)/3 mL nebulization soln 3 ml inhalation Q4H PRN shortness of breath or wheezing #180 mL 05/04/22 amlodipine 10 mg tablet 10 mg PO DAILY 03/21/24 citalopram 10 mg tablet 20 mg PO DAILY 03/21/24 diflunisal 500 mg tablet 500 mg PO DAILY 03/21/24 folic acid 1 mg tablet 1 mg PO DAILY 03/21/24 magnesium oxide 400 mg (241.3 mg magnesium) tablet 400 mg PO DAILY 03/21/24 omeprazole 40 mg capsule,delayed release 40 mg PO DAILY 03/21/24 ondansetron HCl 4 mg tablet 4 mg PO Q4H PRN PRN nausea and vomiting 03/21/24 oxycodone-acetaminophen 5 mg-325 mg tablet 1 tab PO TID PRN PRN pain 03/21/24 Physical Exam Narrative GENERAL: cooperative HEENT: Atraumatic; tracheostomy stoma in place EYES; Anicteric, Normal Conjunctiva NECK; supple, normal thyroid, RESPIRATORY: Diminished to auscultation CARDIOVASCULAR: Regular S1 S2, GI: soft, normoactive bowel sounds, : No Renal angle tenderness; EXTREMITIES: No edema, no clubbing, MUSCULOSKELETAL: no muscle wasting NEURO: Awake; no lateralizing signs. SKIN: No Rash PSYCH; Flat affect Weight / BMI Weight Weight: 86.4 kg Body Mass Index (BMI) 34.8 ABG / Lab / Microbiology Data 03/22/24 04:50 03/22/24 04:50 Laboratory: Laboratory Results - last 24 hr 03/21/24 16:10: WBC 7.9, RBC 4.24, Hgb 12.0, Hct 36.9 L, MCV 87.0, MCH 28.3, MCHC 32.5, RDW Std Deviation 46.7 H, RDW Coeff of Rosa 14.8 H, Plt Count 373, MPV 10.1, Immature Gran % (Auto) 0.500, Neut % (Auto) 60.5, Lymph % (Auto) 29.5, [place] % (Auto) 5.7, Eos % (Auto) 2.8, Baso % (Auto) 1.0, Absolute Neuts (auto) 4.8, Absolute Lymphs (auto) 2.32, Nucleated RBC % 0, Sodium 140, Potassium 4.0, Chloride 105, Carbon Dioxide 27.0, Anion Gap 8, BUN 9, Creatinine 1.35 H, Est GFR (MDRD) Af Amer 53 L, Est GFR (MDRD) Non-Af 44 L, BUN/Creatinine Ratio 6.7 L, Glucose 92, Calcium 8.9, Phosphorus 3.6, Magnesium 1.8, Total Bilirubin 0.30, AST 13 L, ALT < 6 L, Alkaline Phosphatase 84, Total Protein 6.3 L, Albumin 3.0 L , Globulin 3.3, Albumin/Globulin Ratio 0.9, Serum , Qual NEGATIVE, Ethyl Alcohol 170.0 03/21/24 16:50: Urine Opiates Screen NEGATIVE, Urine Methadone Screen NEGATIVE, Ur Barbiturates Screen NEGATIVE, Ur Phencyclidine Scrn NEGATIVE, Ur Amphetamines Screen NEGATIVE, MDMA (Ecstasy) Screen NEGATIVE, U Benzodiazepines Scrn NE GATIVE, Urine Cocaine Screen NEGATIVE, U Cannabinoids Screen NEGATIVE, Ur Drug Screen Comment 03/22/24 04:50: WBC 5.0, RBC 3.83 L, Hgb 10.7 L, Hct 34.2 L, MCV 89.3, MCH 27.9, MCHC 31.3 L, RDW Std Deviation 49.4 H, RDW Coeff of Rosa 15.2 H, Plt Count 231, MPV 10.0, Immature Gran % (Auto) 0.400, Neut % (Auto) 56.9, Lymph % (Auto) 29.9, [place] % (Auto) 8.2, Eos % (Auto) 3.2, Baso % (Auto) 1.4 H, Absolute Neuts (auto) 2.9, Absolute Lymphs (auto) 1.50, Nucleated RBC % 0, Sodium 141, Potassium 3.8, Chloride 111 H, Carbon Dioxide 28.0, Anion Gap 2 L, BUN 8, Creatinine 1.04 H, Estim Creat Clear Calc 63.82, Est GFR (MDRD) Af Amer 71, Est GFR (MDRD) Non-Af 59 L, BUN/Creatinine Ratio 7.7 L, Glucose 100, Calcium 8.4 L, TSH 3.03, Free T4 1.14 D/C Instructions Discharge Diet: No restrictions Discharge Activity: Return to Normal Activity Call your doctor if you observe: Fever of 101 or Higher, Shortness of breath, Fainting spells and Chest pain Meaningful Use Info Meaningful Use Meaningful Use Diagnoses (Choose all that apply): None applicable Ischemic Stroke Statin Dosing Therapy Reference: STATIN DOSE THERAPY REFERENCE: * Patients > 75 years receive moderate or high dose statin therapy. * Patients 75 years or YOUNGER should receive HIGH intensity statin dose unless contraindicated. You will be required to document reason for non-treatment if statin daily dose does not meet guidelines. HIGH DOSE STATIN THERAPY DAILY Atorvastatin > than or = to 40 mg Rosuvastatin > than or = to 20 mg Amlodipine + Atorvastatin > than or = to 2.5/40 mg Ezetimibe + Simvastatin 10/80 mg Simvastatin 80mg Discharge Plan Admission Admit Date/Time: 03/21/24 17:39 Attending Provider: Dipak Vargas Primary Care Provider: Rhea Rose NP Consulting Providers: Rodrigo Newsome Discharge Orders/Prescriptions Prescriptions: No Action sertraline 50 MG tablet 75 mg PO DAILY atorvastatin 10 MG tablet 20 mg PO QHS liothyronine 5 mcg tablet 10 mcg PO DAILY losartan-hydrochlorothiazide 100-25 mg tablet 1 tab PO DAILY levothyroxine 112 mcg tablet 137 mcg PO DAILY gabapentin 100 mg Tablet 300 mg PO BID hydrocodone-acetaminophen 5-325 mg tablet 1 tab PO Q8H PRN PRN (Reason: Pain) hydroxyzine HCl 25 mg tablet 25 mg PO 4X/DAY PRN PRN (Reason: Anxiety) albuterol sulfate [Ventolin HFA] 90 mcg/actuation HFA aerosol inhaler 1 inh inhalation Q6H PRN (Reason: shortness of breath or wheezing) Qty: 8.5 0RF carvedilol 6.25 mg tablet 6.25 mg PO BID ipratropium-albuterol 0.5 mg-3 mg(2.5 mg base)/3 mL solution for nebulization 3 ml inhalation Q4H PRN (Reason: shortness of breath or wheezing) Qty: 180 1RF omeprazole 40 mg capsule,delayed release(DR/EC) 40 mg PO DAILY diflunisal 500 mg tablet 500 mg PO DAILY magnesium oxide 400 mg (241.3 mg magnesium) tablet 400 mg PO DAILY folic acid 1 mg tablet 1 mg PO DAILY citalopram 10 mg tablet 20 mg PO DAILY amlodipine 10 mg tablet 10 mg PO DAILY ondansetron HCl 4 mg tablet 4 mg PO Q4H PRN PRN (Reason: nausea and vomiting) oxycodone-acetaminophen 5-325 mg tablet 1 tab PO TID PRN PRN (Reason: pain) Referrals / Follow Up: Rhea Rose NP, [employer] [Primary Care Provider] - Disposition Disposition (needs filled in before D/C Order can be placed): Against Medical Advice Charges/Coding Visit Charges Inpatient E&M: 20116 Disch Hosp >30min
== END 2024-03-22 13:07 | disposition left against medical advice (07) | DRG 894 ==
LOC: ED 16:34 → ICU 03-22 07:08
PROVIDERS: Physician Assistant; Admitting Provider Internal Medicine; Emergency Provider Emergency Medicine; PCP Nurse Practitioner Family; Visit Provider Internal Medicine
DX: F10.20 Alcohol dependence, uncomplicated (principal); J96.11 Chronic respiratory failure with hypoxia; N17.9 Acute kidney failure, unspecified; C32.9 Malignant neoplasm of larynx, unspecified; J44.9 Chronic obstructive pulmonary disease, unspecified; Z93.0 Tracheostomy status; I10 Essential (primary) hypertension; E03.9 Hypothyroidism, unspecified; F32.A Depression, unspecified; E78.5 Hyperlipidemia, unspecified; K21.9 Gastro-esophageal reflux disease without esophagitis; F41.9 Anxiety disorder, unspecified; E66.9 Obesity, unspecified; Z79.51 Long term (current) use of inhaled steroids; Z79.899 Other long term (current) drug therapy; Z87.891 Personal history of nicotine dependence; Y90.6 Blood alcohol level of 120-199 mg/100 ml; Z53.29 Procedure and treatment not carried out because of patient's decision for other reasons; Z68.34 Body mass index [BMI] 34.0-34.9, adult
CPT/HCPCS: 80048; 80053; 80307; 80320; 83735; 84100; 84439; 84443; 84703; 85025; 99283; J7030; J7120; A4216; G0480

== ENCOUNTER 2025-11-07 20:05 | Emergency (ER) | payer MEDICARE, MEDICAID, SELFPAY ==
[2025-11-07 20:07] VITALS: BP 151/108; PULSE 83; RESP 18; TEMP 36.6; O2SAT 96
--- NOTE | 2025-11-07 20:23 | EX.ED.DYSGE1 ---
HPI History of Present Illness Chief Complaint: Other, Pain/Inj Informant: patient and spouse/S.O. Onset/Context/Timing Onset: Today Context: Gradual Onset Timing: Continuous Current Severity: Mild Maximum Severity: Mild Narrative Narrative: 55-year-old female history of laryngeal CA chronic kidney disease. Has a feeding tube due to being in able to swallow at this time. Feeding tubes been in place for 5+ months. States that she has developed pain there. No drainage. No fever. No bleeding. Also states she has been constipated last 3 days. Prior similar symptoms: No Recent Illness/Hospitalization: No PFSH PFSH Medical History Chest pain Obesity Hypothyroidism Chronic kidney disease (CKD) Hyperlipidemia Essential hypertension Chronic pain Kidney disease GERD (gastroesophageal reflux disease) Morbid obesity Alcohol use Wears dentures Anxiety Thyroid disease History of renal disease Restless legs Back pain Difficulty swallowing History of hiatal hernia Gastric reflux Former smoker COPD (chronic obstructive pulmonary disease) Shortness of breath on exertion Leg cramps History of pain when walking History of foreign body aspiration Influenza A Larynx cancer Home Medications ?Medication ?Instructions ?Recorded ?Last Taken ?Type atorvastatin 10 mg tablet 20 mg PO QHS cholesterol 01/11/21 04/25/22 History sertraline 50 mg tablet 75 mg PO DAILY depression 01/11/21 04/29/22 History levothyroxine 112 mcg tablet 137 mcg PO DAILY THYROID 10/04/21 04/29/22 History liothyronine 5 mcg tablet 10 mcg PO DAILY THYROID 10/04/21 04/29/22 History losartan 100 1 tab PO DAILY BP 10/04/21 04/29/22 History mg-hydrochlorothiazide 25 mg tablet gabapentin 100 mg tablet 300 mg PO BID back pain 11/29/21 04/29/22 History hydrocodone-acetaminophen 5-325mg 1 tab PO Q8H PRN PRN Pain 04/26/22 04/29/22 History 5mg-325mg hydroxyzine HCl 25 mg tablet 25 mg PO 4X/DAY PRN PRN Anxiety 04/26/22 Unknown History albuterol sulfate 90 mcg/actuation 1 inh inhalation Q6H PRN shortness 04/28/22 Unknown Rx aerosol inhaler (Ventolin HFA) of breath or wheezing #8.5 grams carvedilol 6.25 mg tablet 6.25 mg PO BID blood pressure 04/29/22 04/29/22 History ipratropium 0.5 mg-albuterol 3 mg 3 ml inhalation Q4H PRN shortness 05/04/22 Unknown Rx (2.5 mg base)/3 mL nebulization of breath or wheezing #180 mL soln amlodipine 10 mg tablet 10 mg PO DAILY 03/21/24 Unknown History citalopram 10 mg tablet 20 mg PO DAILY 03/21/24 Unknown History diflunisal 500 mg tablet 500 mg PO DAILY 03/21/24 Unknown History folic acid 1 mg tablet 1 mg PO DAILY 03/21/24 Unknown History magnesium oxide 400 mg (241.3 mg 400 mg PO DAILY 03/21/24 Unknown History magnesium) tablet omeprazole 40 mg capsule,delayed 40 mg PO DAILY 03/21/24 Unknown History release ondansetron HCl 4 mg tablet 4 mg PO Q4H PRN PRN nausea and 03/21/24 Unknown History vomiting oxycodone-acetaminophen 5 mg-325 1 tab PO TID PRN PRN pain 03/21/24 Unknown History mg tablet cephalexin 500 mg capsule 500 mg PO Q8H 7 days #21 caps 11/07/25 Unknown Rx Allergy/AdvReac Type Severity Reaction Status Date / Time adhesive tape (tape) Allergy Hives Verified 11/07/25 20:10 latex Allergy BLISTERS Verified 11/07/25 20:10 Iodinated Contrast Media AdvReac Hives Verified 11/07/25 20:10 (Iodinated Contrast Media - IV Dye) morphine AdvReac Nausea/Vom/ Verified 11/07/25 20:10 Diarrhea Family History Mother CVA (cerebral vascular accident) Heart disease Hypertension Sister Cancer Surgical History History of tracheostomy History of appendectomy Hx of cholecystectomy Hx of hysterectomy Hx of hernia repair History of laryngectomy Social History Smoking Status: Former smoker ROS ROS ED ROS Narrative Constipation. Pain at her feeding tube ostomy site. Constitutional Constitutional ED: Denies chills or fever(s) Eyes Eyes: Denies blurry vision ENT ENT ED: Denies ear pain Cardiovascular Cardiovascular: Denies chest pain Respiratory/Chest Respiratory/Chest: Denies cough Gastrointestinal Gastrointestinal: Reports constipation; Denies abdominal pain, diarrhea, melena, nausea or vomiting Genitourinary Genitourinary ED: Denies dysuria or hematuria Musculoskeletal Musculoskeletal: Denies arthralgias Integumentary Denies abscess or Abrasions Neurologic Neurologic: Denies headache(s) Psychiatric Psychiatric: Denies anxiety or depression Endocrine Endocrinology: Denies cold intolerance Hematologic/Lymphatic Hematologic/Lymphatic: Reports none Allergic/Immunologic Allergic/Immunologic ED: Denies mouth swelling, tongue swelling or urticaria EXAM Physical Exam Narrative Exam Narrative: 55-year-old female sitting upright in bed vital signs are stable afebrile. No acute distress. Companied by her I believe. H EENT exam pupils round react light. Moist mucous membranes. Neck nontender. Tracheostomy site. Lungs clear to auscultation. Heart regular rhythm no murmur rate about 80. Chest wall ribs nontender. Abdomen soft nondistended normal bowel sounds without peritoneal signs. Left upper quadrant ostomy with feeding tube in place. She has mild soreness at the site. Minimal redness. She placed some type of cream on it. This does not look like cellulitis looks more like irritation. There is no pus or pustules. There is no sloughing of the skin. No palpable abscess. Is only minimally tender. The abdomen itself is not distended nor there are any peritoneal signs. It is soft with normal bowel sounds. Moving all 4 extremities. She is awake alert. Const Vital Signs: 11/07/25 20:07 11/07/25 20:12 Temperature 97.8 F Temperature Source Oral Pulse Rate 83 Respiratory Rate 18 Respiratory Effort Normal Non-Labored Respiratory Pattern Normal Blood Pressure 151/108 H Blood Pressure Mean 122 Pulse Ox 96 Oxygen Delivery Method Room Air MDM MDM MDM Narrative Medical decision making narrative: 55-year-old female laryngeal CA with a feeding tube. Has irritation around the feeding tube site. Clinically I think this is more of an irritation she will be placed on Keflex and given a dose here. Follow-up to have further evaluated. History & Record Review Discussion w/independent historian: Patient and Family Additional record(s) reviewed:: Prior outpatient record, Prior ED visit and Prior labs Discharge Plan Triage Chief Complaint: Other, Pain/Inj ED Provider: Donald Bustos Dx/Rx/DC Orders Clinical Impression: Pain, Constipation, Hx of laryngeal cancer Instructions: ED Constipation (Adult) Prescriptions: New cephalexin 500 mg capsule 500 mg PO Q8H 7 Days Qty: 21 0RF No Action sertraline 50 MG tablet 75 mg PO DAILY atorvastatin 10 MG tablet 20 mg PO QHS liothyronine 5 mcg tablet 10 mcg PO DAILY losartan-hydrochlorothiazide 100-25 mg tablet 1 tab PO DAILY levothyroxine 112 mcg tablet 137 mcg PO DAILY gabapentin 100 mg Tablet 300 mg PO BID hydrocodone-acetaminophen 5-325 mg tablet 1 tab PO Q8H PRN PRN (Reason: Pain) hydroxyzine HCl 25 mg tablet 25 mg PO 4X/DAY PRN PRN (Reason: Anxiety) albuterol sulfate [Ventolin HFA] 90 mcg/actuation HFA aerosol inhaler 1 inh inhalation Q6H PRN (Reason: shortness of breath or wheezing) Qty: 8.5 0RF carvedilol 6.25 mg tablet 6.25 mg PO BID ipratropium-albuterol 0.5 mg-3 mg(2.5 mg base)/3 mL solution for nebulization 3 ml inhalation Q4H PRN (Reason: shortness of breath or wheezing) Qty: 180 1RF omeprazole 40 mg capsule,delayed release(DR/EC) 40 mg PO DAILY diflunisal 500 mg tablet 500 mg PO DAILY magnesium oxide 400 mg (241.3 mg magnesium) tablet 400 mg PO DAILY folic acid 1 mg tablet 1 mg PO DAILY citalopram 10 mg tablet 20 mg PO DAILY amlodipine 10 mg tablet 10 mg PO DAILY ondansetron HCl 4 mg tablet 4 mg PO Q4H PRN PRN (Reason: nausea and vomiting) oxycodone-acetaminophen 5-325 mg tablet 1 tab PO TID PRN PRN (Reason: pain) Primary Care Provider: Rhea Rose NP Referrals: Rhea Rose NP, [employer] [facility] [Primary Care Provider, Family Practice] - 3-5 Days if not improving Activity Restrictions/Additional Instructions: Most likely pain just from irritation from the feeding tube. We will put you on antibiotic Keflex 3 times a day for a week in case there is an early soft tissue infection which I do not believe there is at this time. Plenty of fluids to your feeding tube and magnesium citrate as needed for the constipation. Follow-up with your primary care provider next 3 to 5 days if not improving. Return if worse. Print Language: Qatari Disposition Disposition: Home, Self Care
[2025-11-07 20:31] VITALS: BP 128/84; PULSE 85; RESP 22; TEMP 36.7; O2SAT 94
[2025-11-07] MEDS: HYDROcodone Bitartrate/Apap 5/325 Tablet PO (20:35)
--- OUTSIDE RECORDS SUMMARY | 2025-11-07 20:41 | XMS RPT_ITS | CCD ---
Author Organization [facility] Care Team Providers Care Chassis Engineer Name Role Phone Unavailable Unavailable Unavailable Scarlett, Rolly Unavailable Unavailable Scarlett, Rolly Unavailable Unavailable Scarlett, Rolly Unavailable Unavailable Scarlett, Rolly Unavailable Unavailable Scarlett, Blas K Unavailable Unavailable Scarlett, Blas K Unavailable Unavailable Scarlett, Blas K Unavailable Unavailable Scarlett, Blas K Unavailable Unavailable Jimym Lopez Primary Care Provider Jimmy Lopez Primary Care Provider Jimmy Lopez Primary Care Provider Scarlett, Rolly Unavailable Unavailable IQRA ROSE Admitting Unavailable IQRA ROSE Attending Unavailable IQRA ROSE Primary Care Unavailable Jimmy Lopez Primary Care Provider Scarlett Rolly Unavailable Unavailable Iqra Rose Unavailable Unavailable Unavailable Jimmy Lopez MD Primary Care Provider Rolly Pantoja MD Unavailable Unavailable Lucila Ruff Unavailable No, Physician Primary Care Provider [facility] Primary Care Pro vider Dr. Nancy Newton Attending Provider Dr. Rolly Pantoja Referring Provider Iqra Rose Unavailable Jerrod Hale Unavailable Unavailable Grey Avilez Unavailable Unavailable AgnieszkajaylenLucila vincent Unavailable [facility][1] Pro vider Dr. Robe Greenwood Admit Provider Dr. Robe Greenwood Attending Provider Dr. 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 Mazin Spain Attending Provider Dr. Cat Tripathi Attending Provider Dr. Cat Tripathi Other Provider Dr. Guerrero Brunson Emergency Provider Dr. Talib Valdes Admit Provider Dr. Talib Valdes Attending Provider Dr. Talib Valdes Other Provider Dr. Raheem Dillon Other Provider Dr. Talib Valdes Referring Provider Dr. Raheem Dillon Attending Provider Dr. Rolly Pantoja Other Provider Dr. Mingo Fry Other Provider Abram, Dr. Pascale Wheeler Other Provider Dr. Marlo Munoz Attending Provider Dr. Pascale Valverde Attending Provider [phone] 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 Jerrod Madison Attending Unavaila elizabeth Lan, Ms. Rosey Menchaca Referring U navailable Edyta, Ms. Rosey Menchaca Attending U navjackson Avilez, Dr. Edmonds Attending Unavailable Edyta, Ms. Rosey Menchaca Attending U navailable Lucila Ruff Attending Unavailable Edyta, Ms. Rosey Menchaca Attending U navdebbieable Lucila Ruff Attending Unavailable Edyta, Ms. Rosey Menchaca Attending U navailable Edyta, Ms. Rosey Menchaca Attending U navailable Edyta, Ms. Rosey Menchaca Attending U navailable Raghav, Dr. 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, Iqra K Primary Care Provider MILTON, IQRA CALLIE Primary Care Unavailable BETHEL CACERES Attending Unav ailable SYSTEM, PROVIDER NOT IN Admitting Unavaila MONICA Mishra Attending Unavailable ROLLY PANTOJA Referring Unavailable MILTON, IQRA CALLIE Primary Care Unavailable DARRON BEAR Attending Unavailable MILTON, IQRA CALLIE Primary Care Unavailable MILTON, IQRA CALLIE Primary Care Unavailable BETHEL CACERES Attending Unav ailable MILTON, IQRA CALLIE Primary Care Unavailable NATALYAEBETHELM Attending Unav ailable MILTON, IQRA CALLIE Primary Care Unavailable BETHEL CACERES Attending Unav ailbebeto Zelaya MD MPH, Blas Savage Primary Care Pro vider 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 David Whittaker Emergency Provider Jerod, Dr. Wallace Admit Provider Jerod, Dr. Wallace Attending Provider Jerod, Dr. Wallace Other Provider Alicia, Dr. Quesada Attending Provider Unavailable Alicia, Dr. 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, [facility] Primary Care Unavailable Dipak Vargas Attending Unavailable Dipak Vargas Consulting Unavailable Dipak Vargas Attending Unavailable Rodrigo Newsome Admitting Unavailable Rdorigo Newsome Consulting Unavailable Milton MIDDLE SCHOOL TUTOR, [facility] Primary Care Unavailable Nathalie MERINO MPH, Blas Nag S Unavailable Giovany MORA-Stevenson YAN Primary Care Provider PATTIE SUN Attending Unavailable MALLYUMI, BLAS NAG S Primary Care Unavail able BLAS ZELAYA NAG S Attending Unavail able PAULA ZELAYAUN NAG S Primary Care Unavail able Nathalie MERINO MPH, Blas Nag S Unavailable Stevenson Salmon Primary Care Provider Nathalie MERINO MPH, Blas Nag S Unavailable B[facility] Health[facility]assan Unavailable Unavailable Nathalie MERINO MPH, Blas Nag S Unavailable Stevenson Salmon Primary Care Provider HUMA THOMAS Admitting Unavailable HUMA THOMAS Attending Unavailable ANNE GONZALES Referring Unavailable STEVENSON ADAIR Primary Care Unavailable HUMA THOMAS Admitting Unavailable HUMA THOMAS Attending Unavailable STEVENSON ADAIR Primary Care Unavailable BEARTIS COELLO Referring Unavailable ADAIR, STEVENSON M Primary Care Unavailable ELLIS GUERRERO Admitting Unavailable BEATRIS NEIL Attending Unavailable HUMA THOMAS Referring Unavailable STEVENSON ADAIR M Primary Care Unavailable HUMA THOMAS Attending Unavailable ARLETTE ADAIRRIN M Primary Care Unavailable MICHELLE BOND Attending Unavailable STEVENSON ADAIR M Primary Care Unavailable MICHELLE BOND Attending Unavailable STEVENSON ADAIR M Primary Care Unavailable STEVENSON ADAIR M Primary Care Unavailable TALIB MAZA Admitting Unavailable ANNE GONZALES Consulting Unavailable LUCRETIA MCFARLAND Attending Unavailable ADAIRARLETTESTEVENSON M Primary Care Unavailable TALIB MAZA Attending Unavailable TALIB MAZA Admitting Unavailable ANNE GONZALES Consulting Unavailable GIOVANY STEVENSON M Primary Care Unavailable JOSE LEYVA Admitting Unavailable LUCRETIA MCFARLAND Attending Unavailable ANNE GONZALES Consulting Unavailable GIOVANYARLETTESTEVENSON M Primary Care Unavailable BEATRIS COELLO Referring Unavailable STEVENSON ADAIR M Primary Care Unavailable Allergies Allergy Classification Reported Allergen(s) Allergy Type Date of Onset Reaction(s) Facility Latex (1 source) Latex Substance Allergy 1 Hives, Other, Rash [facility] Opioid Agonists (1 source) Morphine Drug Allergy 3 Other [facility] (20 sources) Morphine; Translations: [morphine] Drug Allergy 1 Vomiting, Other (See Comments), Nausea Only, Nausea and vomiting, GI Intolerance, Other [facility] Comment on above: Performed By: #### 5 8077-9 #### PATRICIA STEWART ([id number]) [facility] ([facility]) [address] [place] [address] 00663 Protein [Mass/Vol] 5.4 g/dL Low 6.4-8.2 [facility] Comment on above: Performed By: #### 5 8077-9 #### PATRICIA STEWART ([id number]) [facility] ([facility]) [address] [place] [address] 80666 Sodium [Moles/Vol] 135 mmol/L Low 136-145 [facility] Comment on above: Performed By: #### 5 8077-9 #### PATRICIA STEWART ([id number]) [facility] ([facility]) [address] [place] [address] Urea nitrogen [Mass/Vol] 11 mg/dL Normal 6-23 [facility] Comment on above: Performed By: #### 5 8077-9 #### PATRICIA STEWART ([id number]) [facility] ([facility]) [address] [place] [address] Albumin BCP dye [Mass/Vol] 2.3 g/dL Low 3.4 - 5.0 g/dL [facility] ALP [Catalytic activity/Vol] 151 U/L High 33 - 110 U/L [facility] ALT With P-5'-P [Catalytic activity/Vol] 16 U/L 7 - 45 U/L [facility] Anion gap [Moles/Vol] 13 mmol/L 10 - 2 0 mmol/L [facility] AST With P-5'-P [Catalytic activity/Vol] 175 U/L High 9 - 39 U/L [facility] Bilirubin [Mass/Vol] 1.5 mg/dL High 0.0 - 1 .2 mg/dL [facility] Calcium [Mass/Vol] 6.1 mg/dL Low 8.6 - 10. 3 mg/dL [facility] Chloride [Moles/Vol] 96 mmol/L Low 98 - 10 7 mmol/L [facility] CO2 [Moles/Vol] 27 mmol/L 21 - 32 mmol/L [facility] Creatinine [Mass/Vol] 0.92 mg/dL 0.50 - 1.05 mg/dL [facility] GFR/1.73 sq M.predicted among non-blacks MDRD (S/P/Bld) [Vol rate/Area] 74 mL/min/{1.73_m2} - PINF [facility] Glucose [Mass/Vol] 113 mg/dL High 74 - 99 mg/dL [facility] Interpretation and review of laboratory results Abnormal [facility] Potassium [Moles/Vol] 3.1 mmol/L Low 3.5 - 5.3 mmol/L [facility] Protein [Mass/Vol] 4.8 g/dL Low 6.4 - 8.2 g/dL [facility] Sodium [Moles/Vol] 133 mmol/L Low 136 - 145 mmol/L [facility] Urea nitrogen [Mass/Vol] 10 mg/dL 6 - 23 mg/dL [facility] Albumin BCP dye [Mass/Vol] 2.3 g/dL Low 3.4-5.0 [facility] Comment on above: Performed By: #### 8 9577-1 #### PATRICIA STEWART ([id number]) [facility] ([facility]) [address] [place] [address] ALP [Catalytic activity/Vol] 151 U/L High 33-110 [facility] Comment on above: Performed By: #### 8 9577-1 #### PATRICIA STEWART ([id number]) [facility] ([facility]) [address] [place] [address] ALT With P-5'-P [Catalytic activity/Vol] 16 U/L Normal 7-45 [facility] Comment on above: Result Comment: Karla ents treated with Sulfasalazine may generate falsely decreased results for ALT. Performed By: #### 8 9577-1 #### PATRICIA STEWART ([id number]) [facility] ([facility]) [address] [place] [address] 30093 Anion gap [Moles/Vol] 13 mmol/L Normal 10-20 [facility] Comment on above: Performed By: #### 8 9577-1 #### PATRICIA STEWART ([id number]) [facility] ([facility]) [address] [place] [address] 36350 AST With P-5'-P [Catalytic activity/Vol] 175 U/L High 9-39 [facility] Comment on above: Performed By: #### 8 9577-1 #### PATRICIA STEWART ([id number]) [facility] ([facility]) [address] [place], [place] [phone] Bilirubin [Mass/Vol] 1.5 mg/dL High 0.0-1.2 [facility] Comment on above: Performed By: #### 8 9577-1 #### PATRICIA STEWART ([id number]) [facility] ([facility]) [address] [place] [address] Calcium [Mass/Vol] 6.1 mg/dL Low 8.6-10.3 [facility] Comment on above: Performed By: #### 8 9577-1 #### PATRICIA STEWART ([id number]) [facility] ([facility]) [address] [place] [address] Chloride [Moles/Vol] 96 mmol/L Low 98-107 [facility] Comment on above: Performed By: #### 8 9577-1 #### PATRICIA STEWART ([id number]) [facility] ([facility]) [address] [place] [address] 24156 CO2 [Moles/Vol] 27 mmol/L Normal 21-32 [facility] Comment on above: Performed By: #### 8 9577-1 #### PATRICIA STEWART ([id number]) [facility] ([facility]) [address] [place] [address] 89357 Creatinine [Mass/Vol] 0.92 mg/dL Normal 0.50-1.05 [facility] Comment on above: Performed By: #### 8 9577-1 #### PATRICIA STEWART ([id number]) [facility] ([facility]) [address] [place] [address] 85515 Glomerular filtration rate/1.73 sq M.predicted 74 mL/min/1.73m*2 Normal >60 [facility] Comment on above: Result Comment: Calc ulations of estimated GFR are performed using the 2020 CKD-EPI Study Refit equation without the race variable for the IDMS-Traceable creatinine methods. https://jasn.asnjournals.org/content/early/ASN.232766 8352 Performed By: #### 8 9577-1 #### PATRICIA STEWART ([id number]) [facility] ([facility]) [facility] [place] [address] Glucose [Mass/Vol] 113 mg/dL High 74-99 [facility] Comment on above: Performed By: #### 8 9577-1 #### PATRICIA STEWART ([id number]) [facility] ([facility]) [address] [place] [address] 24066 Potassium [Moles/Vol] 3.1 mmol/L Low 3.5-5.3 [facility] Comment on above: Performed By: #### 8 9577-1 #### PATRICIA STEWART ([id number]) [facility] ([facility]) [address] [place] [address] 29037 Protein [Mass/Vol] 4.8 g/dL Low 6.4-8.2 [facility] Comment on above: Performed By: #### 8 9577-1 #### PATRICIA STEWART ([id number]) [facility] ([facility]) [address] [place] [address] 55201 Sodium [Moles/Vol] 133 mmol/L Low 136-145 [facility] Comment on above: Performed By: #### 8 9577-1 #### PATRICIA STEWART ([id number]) [facility] ([facility]) [address] [place] [address] 88968 Urea nitrogen [Mass/Vol] 10 mg/dL Normal 6-23 [facility] Comment on above: Performed By: #### 8 9577-1 #### PATRICIA STEWART ([id number]) [facility] ([facility]) [address] [place] [address] 11422 Gas panel (BldA)on 5 Apparatus TRACHEAL COLLAR [facility] Arterial patency Wrist artery --pre arterial puncture Negative [facility] Base excess Calc (Bld) [Moles/Vol] 0.8 mmol/L -2.0 - 3.0 mmol/L [facility] CO2 (Bld) [Partial pressure] 46 mm[Hg] High [facility] HCO3 (Bld) [Moles/Vol] 26.6 mmol/L High 22.0 - 26.0 mmol/L [facility] Inhaled oxygen concentration 35 % [facility] Interpretation and review of laboratory results Abnormal [facility] Oxygen (Bld) [Partial pressure] 79 mm[Hg] Low [facility] Oxyhemoglobin (BldA) [Mass fraction] 95.2 % 94.0 - 98.0 % [facility] pH (Bld) 7.37 [pH] Low 7.38 - 7.42 pH [facility] Specimen drawn from Nom Radial Right [facility] APPARATUS TRACHEAL COLLAR Normal [facility] Comment on above: Performed By: #### 5 8077-9 #### PATRICIA STEWART ([id number]) [facility] ([facility]) [address] [place] [address] Arterial patency Wrist artery --pre arterial puncture Negative Normal [facility] Comment on above: Performed By: #### 5 8077-9 #### PATRICIA STEWART ([id number]) [facility] ([facility]) [address] [place] [address] Base excess Calc (Bld) [Moles/Vol] 0.8 mmol/L Normal -2.0-3.0 [facility] Comment on above: Performed By: #### 5 8077-9 #### PATRICIA STEWART ([id number]) [facility] ([facility]) [address] [place], [place] [address] CO2 (Bld) [Partial pressure] 46 mm Hg High 38-42 [facility] Comment on above: Performed By: #### 5 8077-9 #### PATRICIA STEWART ([id number]) [facility] ([facility]) [address] [place] [address] 90910 HCO3 (Bld) [Moles/Vol] 26.6 mmol/L High 22.0-26.0 [facility] Comment on above: Performed By: #### 5 8077-9 #### PATRICIA STEWART ([id number]) [facility] ([facility]) [address] [place], [place] [address] Inhaled oxygen concentration 35 % Normal [facility] Comment on above: Performed By: #### 5 8077-9 #### PATRICIA STEWART ([id number]) [facility] ([facility]) [address] [place] [address] 09159 Oxygen (Bld) [Partial pressure] 79 mm Hg Low 85-95 [facility] Comment on above: Performed By: #### 5 8077-9 #### PATRICIA STEWART ([id number]) [facility] ([facility]) [address] [place] [address] 38436 Oxyhemoglobin (BldA) [Mass fraction] 95.2 % Normal 94.0-98.0 [facility] Comment on above: Performed By: #### 5 8077-9 #### PATRICIA STEWART ([id number]) [facility] ([facility]) [address] [place] [address] 20718 pH (Bld) 7.37 [pH] Low 7.38-7.42 [facility] Comment on above: Performed By: #### 5 8077-9 #### PATRICIA STEWART ([id number]) [facility] ([facility]) [address] [place] [address] Specimen drawn from Nom Radial Right Normal [facility] Comment on above: Performed By: #### 5 8077-9 #### PATRICIA STEWART ([id number]) [facility] ([facility]) [address] [place], [place] [address] Arterial patency Wrist artery --pre arterial puncture Positive [facility] Base excess Calc (Bld) [Moles/Vol] -0.2000 mmol/L -2.0 - 3.0 mmol/L [facility] CO2 (Bld) [Partial pressure] 47 mm[Hg] High [facility] HCO3 (Bld) [Moles/Vol] 25.9 mmol/L 22.0 - 26.0 mmol/L [facility] Inhaled oxygen concentration 28 % [facility] Interpretation and review of laboratory results Abnormal [facility] Oxygen (Bld) [Partial pressure] 57 mm[Hg] Low [facility] Oxyhemoglobin (BldA) [Mass fraction] 85.3 % Low 94.0 - 98.0 % [facility] pH (Bld) 7.35 [pH] Low 7.38 - 7.42 pH [facility] Specimen drawn from Nom Radial Left [facility] Arterial patency Wrist artery --pre arterial puncture Positive Normal [facility] Comment on above: Performed By: #### 5 8077-9 #### PATRICIA STEWART ([id number]) [facility] ([facility]) [address] [place] [address] 63872 Base excess Calc (Bld) [Moles/Vol] -0.2000 mmol/L Normal -2.0-3.0 [facility] Comment on above: Performed By: #### 5 8077-9 #### PATRICIA STEWART ([id number]) [facility] ([facility]) [address] [place] [address] 99927 CO2 (Bld) [Partial pressure] 47 mm Hg High 38-42 [facility] Comment on above: Performed By: #### 5 8077-9 #### PATRICIA STEWART ([id number]) [facility] ([facility]) [address] [place] [address] 23972 HCO3 (Bld) [Moles/Vol] 25.9 mmol/L Normal 22.0-26.0 [facility] Comment on above: Performed By: #### 5 8077-9 #### PATRICIA STEWART ([id number]) [facility] ([facility]) [address] [place] [address] 31230 Inhaled oxygen concentration 28 % Normal [facility] Comment on above: Performed By: #### 5 8077-9 #### PATRICIA STEWART ([id number]) [facility] ([facility]) [address] [place] [address] 22372 Oxygen (Bld) [Partial pressure] 57 mm Hg Low 85-95 [facility] Comment on above: Performed By: #### 5 8077-9 #### PATRICIA STEWART ([id number]) [facility] ([facility]) [address] [place] [address] 05254 Oxyhemoglobin (BldA) [Mass fraction] 85.3 % Low 94.0-98.0 [facility] Comment on above: Performed By: #### 5 8077-9 #### PATRICIA STEWART ([id number]) [facility] ([facility]) [address] [place] [address] pH (Bld) 7.35 [pH] Low 7.38-7.42 [facility] Comment on above: Performed By: #### 5 8077-9 #### PATRICIA STEWART ([id number]) [facility] ([facility]) [facility] [place] [address] Specimen drawn from Nom Radial Left Normal [facility] Comment on above: Performed By: #### 5 8077-9 #### PATRICIA STEWART ([id number]) [facility] ([facility]) [address] [place], [place] [address] Hemoglobin and Hematocrit pa bernarda (Bld)on 06-06-2025 Hematocrit (Bld) [Volume fraction] 22.0 % Low 36.0 - 46.0 % [facility] Hemoglobin (Bld) [Mass/Vol] 7.2 g/dL Low 12.0 - 16.0 g/dL [facility] Interpretation and review of laboratory results Abnormal [facility] Hematocrit (Bld) [Volume fraction] 22.0 % Low 36.0-46.0 [facility] Comment on above: Performed By: #### 8 9577-1 #### PATRICIA STEWART ([id number]) [facility] ([facility]) [address] [place], [place] [address] Hemoglobin (Bld) [Mass/Vol] 7.2 g/dL Low 12.0-16.0 [facility] Comment on above: Performed By: #### 8 9577-1 #### PATRICIA STEWART ([id number]) [facility] ([facility]) [address] [place] [address] 75692 Lactateon 06-06-2025 Lactate [Moles/Vol] 2.4 mmol/L High 0.4 - 2. 0 mmol/L [facility] Lactate [Moles/Vol] 2.4 mmol/L High 0.4-2.0 [facility] Comment on above: Order Comment: Venip uncture immediately after or during the administration of Metamizole may lead to falsely low results. Testing should be performed immediately prior to Metamizole dosing. Performed By: #### 5 8077-9 #### PATRICIA STEWART ([id number]) [facility] ([facility]) [address] [place] [address] 48433 Lactate [Moles/Vol] 3.0 mmol/L High 0.4 - 2. 0 mmol/L [facility] Lactate [Moles/Vol] 3.0 mmol/L High 0.4-2.0 [facility] Comment on above: Order Comment: Venip uncture immediately after or during the administration of Metamizole may lead to falsely low results. Testing should be performed immediately prior to Metamizole dosing. Performed By: #### 5 8077-9 #### PATRICIA STEWART ([id number]) [facility] ([facility]) [address] [place] [address] 46618 Lactate [Moles/Vol] 1.0 mmol/L 0.4 - 2. 0 mmol/L [facility] Lactate [Moles/Vol] 1.0 mmol/L Normal 0.4-2.0 [facility] Comment on above: Order Comment: Less than 99th percentile of normal range cutoff- Female and children under 18 years old <14 ng/L; Male <21 ng/L: Negative Repeat testing should be performed if clinically indicated. Female and children under 18 years old 14-50 ng/L; Male 21-50 ng/L: Consistent with possible cardiac damage and possible increased clinical risk. Serial measurements may help to assess extent of myocardial damage. >50 ng/L: Consistent with cardiac damage, increased clinical risk and myocardial infarction. Serial measurements may help assess extent of myocardial damage. NOTE: Children less than 1 year old may have higher baseline troponin levels and results should be interpreted in conjunction with the overall clinical context. NOTE: Troponin I testing is performed using a different testing methodology at [facility] than at other [facility]. Direct result comparisons should only be made within the same method. Performed By: #### 8 9577-1 #### PATRICIA STEWART ([id number]) [facility] ([facility]) [address] [place] [address] 46671 Lactate [Moles/Vol]on 2024 Interpretation and review of laboratory results Abnormal [facility] Interpretation and review of laboratory results Abnormal [facility] Interpretation and review of laboratory results Normal [facility] Lavender Topon 06-06-2025 Extra Tube Hold for add-ons. [facility] Work Phone: [facility] Work Phone: Magnesiumon 06-06-2025 Magnesium [Mass/Vol] 1.72 mg/dL 1.60 - 2.40 mg/dL [facility] Magnesium [Mass/Vol] 1.72 mg/dL Normal 1.60-2.40 [facility] Comment on above: Performed By: #### 5 8077-9 #### PATRICIA STEWART ([id number]) [facility] ([facility]) [address] [place] [address] 47070 Magnesium [Mass/Vol] 1.75 mg/dL 1.60 - 2.40 mg/dL [facility] Magnesium [Mass/Vol] 1.75 mg/dL Normal 1.60-2.40 [facility] Comment on above: Performed By: #### 8 9577-1 #### PATRICIA STEWART ([id number]) [facility] ([facility]) [address] [place] [address] 60562 Magnesium [Mass/Vol]on 06-06 Interpretation and review of laboratory results Normal [facility] Interpretation and review of laboratory results Normal [facility] No Panel Informationon 06-06 [facility] PST Topon 06-06-2025 Extra Tube Hold for add-ons. [facility] Work Phone: [facility] Work Phone: PT Coag (PPP) [Time]on 06-06 INR Coag (PPP) [Relative time] 1.2 {INR} High 0.9 - 1.1 [facility] Interpretation and review of laboratory results Abnormal [facility] INR Coag (PPP) [Relative time] 1.2 High 0.9-1.1 [facility] Comment on above: Performed By: #### 8 9577-1 #### PATRICIA STEWART ([id number]) [facility] ([facility]) [address] [place] [address] Protime-INRon 06-06-2025 PT Coag (PPP) [Time] 13.5 s High [facility] SST TOPOrdered By: Sawyer Barclay ma on 06-06-2025 Extra Tube Hold for add-ons. [facility] Work Phone: [facility] Work Phone: Vancomycinon 06-06-2025 Vancomycin [Mass/Vol] 16.1 ug/mL 5.0 - 20.0 ug/mL [facility] Vancomycin [Mass/Vol] 16.1 ug/mL Normal 5.0-20.0 [facility] Comment on above: Order Comment: Less than 99th percentile of normal range cutoff- Female and children under 18 years old <14 ng/L; Male <21 ng/L: Negative Repeat testing should be performed if clinically indicated. Female and children under 18 years old 14-50 ng/L; Male 21-50 ng/L: Consistent with possible cardiac damage and possible increased clinical risk. Serial measurements may help to assess extent of myocardial damage. >50 ng/L: Consistent with cardiac damage, increased clinical risk and myocardial infarction. Serial measurements may help assess extent of myocardial damage. NOTE: Children less than 1 year old may have higher baseline troponin levels and results should be interpreted in conjunction with the overall clinical context. NOTE: Troponin I testing is performed using a different testing methodology at [facility] than at other [facility]. Direct result comparisons should only be made within the same method. Performed By: #### 8 9577-1 #### PATRICIA STEWART ([id number]) [facility] ([facility]) [address] [place] [id number] Vancomycin [Mass/Vol]on 05-20 Interpretation and review of laboratory results Normal [facility] aPTT Coag (PPP) [Time]on Interpretation and review of laboratory results Normal [facility] Ammoniaon 06-05-2025 Ammonia (P) [Moles/Vol] 32 umol/L 16 - 53 umol/L [facility] Ammonia (P) [Moles/Vol] 32 umol/L Normal -53 [facility] Comment on above: Performed By: #### 3 0934-4 #### PATRICIA STEWART ([id number]) [facility] ([facility]) [address] [place] [address] 52751 Ammonia (P) [Moles/Vol]on Interpretation and review of laboratory results [facility] Bacteria identifiedon 2024 Bacteria identified Cx Nom (U) Test: Urine Culture Specimen Source: Straight Catheter Specimen Type: Urine Specimen Date: 06/05/20252149 Result Date: 06/07/2025 0743 Result Status: Final result Abnormal: No Resulting Lab: [facility] [address] [place] [address] CULTURE Growth indicates contamination with mixed bacterial eduardo. Repeat culture if clinically indicated. [facility] Comment on above: Performed By: #### 5 3315-8 #### PATRICIA STEWART ([id number]) [facility] ([facility]) [address] [place] [address] Bacteria identified Cx Nom (Bld) Test: Blood Culture Specimen Source: Peripheral Venipuncture Specimen Type: Blood culture Specimen Date: 06/05/2025 183 Result Date: 06/10/2025 0101 Result Status: Final result Abnormal: No Resulting Lab: [facility] [address] [place] [address] CULTURE No growth at 4 days - FINAL REPORT [facility] Comment on above: Performed By: #### 8 9577-1 #### PATRICIA STEWART ([id number]) [facility] ([facility]) [address] [place] [address] Bacteria identified Cx Nom (Bld) Test: Blood Culture Specimen Source: Peripheral Venipuncture Specimen Type: Blood culture Specimen Date: 06/05/20251831 Result Date: 06/10/2025199 Result Status: Final result Abnormal: No Resulting Lab: [facility] [address] [place] [address] CULTURE No growth at 4 days - FINAL REPORT Normal [facility] Comment on above: Performed By: #### 8 9577-1 #### GOMEZ PAT ([id number]) [facility] ([facility]) [address] [place] [address] CBC W Auto Differential pane l (Bld)on 06-05-2025 Basophils (Bld) [#/Vol] 0.09 10*3/uL [facility] Basophils/100 WBC (Bld) 0.6 % 0.0 - 2.0 % [facility] Eosinophils (Bld) [#/Vol] 0.06 10*3/uL [facility] Eosinophils/100 WBC (Bld) 0.4 % 0.0 - 6.0 % [facility] Erythrocyte distribution width (RBC) [Ratio] 16.1 % High 11.5 - 14.5 % [facility] Hematocrit (Bld) [Volume fraction] 27.9 % Low 36.0 - 46.0 % [facility] Hemoglobin (Bld) [Mass/Vol] 9.5 g/dL Low 12.0 - 16.0 g/dL [facility] Immature granulocytes (Bld) [#/Vol] 0.14 10*3/uL [facility] Immature granulocytes/100 WBC (Bld) 0.9 % 0.0 - 0.9 % [facility] Interpretation and review of laboratory results Abnormal [facility] Lymphocytes (Bld) [#/Vol] 0.51 10*3/uL Low [facility] Lymphocytes/100 WBC (Bld) 3.2 % 13.0 - 44.0 % [facility] MCH (RBC) [Entitic mass] 31.3 pg 26.0 - 34.0 pg [facility] MCHC (RBC) [Mass/Vol] 34.1 g/dL 32.0 - 36.0 g/dL [facility] MCV (RBC) [Entitic vol] 92 fL 80 - 100 fL [facility] Monocytes (Bld) [#/Vol] 0.55 10*3/uL [facility] Monocytes/100 WBC (Bld) 3.4 % 2.0 - 10.0 % [facility] Neutrophils (Bld) [#/Vol] 14.65 10*3/uL High [facility] Neutrophils/100 WBC (Bld) 91.5 % 40.0 - 80.0 % [facility] Nucleated RBC/100 WBC (Bld) [Ratio] 0.3 % High [facility] Platelets (Bld) [#/Vol] 285 10*3/uL [facility] RBC (Bld) [#/Vol] 3.04 10*6/uL Low [facility] WBC (Bld) [#/Vol] 16.0 10*3/uL High [facility] Basophils (Bld) [#/Vol] 0.09 x10*3/uL Normal 0.00-0.10 [facility] Comment on above: Order Comment: [place] keon Top Tube Performed By: #### 2 4321-2 #### PATRICIA STEWART ([id number]) [facility] ([facility]) [address] [place] [address] 91607 Basophils/100 WBC (Bld) 0.6 % Normal 0.0-2.0 [facility] Comment on above: Order Comment: [place] keon Top Tube Performed By: #### 2 4321-2 #### PATRICIA STEWART ([id number]) [facility] ([facility]) [address] [place] [address] 67508 Eosinophils (Bld) [#/Vol] 0.06 x10*3/uL Normal 0.00-0.70 [facility] Comment on above: Order Comment: [place] keon Top Tube Performed By: #### 2 4321-2 #### PATRICIA STEWART ([id number]) [facility] ([facility]) [address] [place] [address] 60648 Eosinophils/100 WBC (Bld) 0.4 % Normal 0.0-6.0 [facility] Comment on above: Order Comment: [place] keon Top Tube Performed By: #### 2 4321-2 #### PATRICIA STEWART ([id number]) [facility] ([facility]) [address] [place] [address] Erythrocyte distribution width (RBC) [Ratio] 16.1 % High 11.5-14.5 [facility] Comment on above: Order Comment: [place] keon Top Tube Performed By: #### 2 4321-2 #### PATRICIA STEWART ([id number]) [facility] ([facility]) [address] [place] [address] Hematocrit (Bld) [Volume fraction] 27.9 % Low 36.0-46.0 [facility] Comment on above: Order Comment: [place] keon Top Tube Performed By: #### 2 1-2 #### PATRICIA STEWART ([id number]) [facility] ([facility]) [address] [place] [address] 08232 Hemoglobin (Bld) [Mass/Vol] 9.5 g/dL Low 12.0-16.0 [facility] Comment on above: Order Comment: [place] keon Top Tube Performed By: #### 2 1-2 #### PATRICIA STEWART ([id number]) [facility] ([facility]) [address] [place] [address] 74491 Immature granulocytes (Bld) [#/Vol] 0.14 x10*3/uL Normal 0.00-0.70 [facility] Comment on above: Order Comment: [place] keon Top Tube Performed By: #### 2 4321-2 #### PATRICIA STEWART ([id number]) [facility] ([facility]) [address] [place] [address] 30898 Immature granulocytes/100 WBC (Bld) 0.9 % Normal 0.0-0.9 [facility] Comment on above: Order Comment: [place] keon Top Tube Result Comment: Mary ture Granulocyte Count (IG) includes promyelocytes, myelocytes and metamyelocytes but does not include bands. Percent differential counts (%) should be interpreted in the context of the absolute cell counts (cells/UL). Performed By: #### 2 4321-2 #### PATRICIA STEWART ([id number]) [facility] ([facility]) [address] [place] [address] 78838 Lymphocytes (Bld) [#/Vol] 0.51 x10*3/uL Low 1.20-4.80 [facility] Comment on above: Order Comment: [place] keon Top Tube Performed By: #### 2 4321-2 #### PATRICIA STEWART ([id number]) [facility] ([facility]) [address] [place] [address] Lymphocytes/100 WBC (Bld) 3.2 % Normal 13.0-44.0 [facility] Comment on above: Order Comment: [place] keon Top Tube Performed By: #### 2 4321-2 #### PATRICIA STEWART ([id number]) [facility] ([facility]) [address] [place] [address] 13435 MCH (RBC) [Entitic mass] 31.3 pg Normal 26.0-34.0 [facility] Comment on above: Order Comment: [place] keon Top Tube Performed By: #### 2 4321-2 #### PATRICIA STEWART ([id number]) [facility] ([facility]) [address] [place] [address] 94940 MCHC (RBC) [Mass/Vol] 34.1 g/dL Normal 32.0-36.0 [facility] Comment on above: Order Comment: [place] keon Top Tube Performed By: #### 2 4321-2 #### PATRICIA STEWART ([id number]) [facility] ([facility]) [address] [place] [address] 86524 MCV (RBC) [Entitic vol] 92 fL Normal 80-100 [facility] Comment on above: Order Comment: [place] keon Top Tube Performed By: #### 2 4321-2 #### PATRICIA STEWART ([id number]) [facility] ([facility]) [address] [place] [address] 38327 Monocytes (Bld) [#/Vol] 0.55 x10*3/uL Normal 0.10-1.00 [facility] Comment on above: Order Comment: [place] keon Top Tube Performed By: #### 2 4321-2 #### PATRICIA STEWART ([id number]) [facility] ([facility]) [address] [place] [address] 02952 Monocytes/100 WBC (Bld) 3.4 % Normal 2.0-10.0 [facility] Comment on above: Order Comment: [place] keon Top Tube Performed By: #### 2 4321-2 #### PATRICIA STEWART ([id number]) [facility] ([facility]) [address] [place] [address] 10783 Neutrophils (Bld) [#/Vol] 14.65 x10*3/uL High 1.20-7.70 [facility] Comment on above: Order Comment: [place] keon Top Tube Result Comment: Perc ent differential counts (%) should be interpreted in the context of the absolute cell counts (cells/uL). Performed By: #### 2 4321-2 #### PATRICIA STEWART ([id number]) [facility] ([facility]) [address] [place] [address] 53934 Neutrophils/100 WBC (Bld) 91.5 % Normal 40.0-80.0 [facility] Comment on above: Order Comment: [place] keon Top Tube Performed By: #### 2 4321-2 #### PATRICIA STEWART ([id number]) [facility] ([facility]) [address] [place] [address] 75459 Nucleated RBC/100 WBC (Bld) [Ratio] 0.3 /100 WBCs High 0.0-0.0 [facility] Comment on above: Order Comment: [place] keon Top Tube Performed By: #### 2 4321-2 #### PATRICIA STEWART ([id number]) [facility] ([facility]) [address] [place] [address] 37477 Platelets (Bld) [#/Vol] 285 x10*3/uL Normal 150-450 [facility] Comment on above: Order Comment: [place] keon Top Tube Performed By: #### 2 4321-2 #### PATRICIA KINGHARIKA ([id number]) [facility] ([facility]) [address] [place] [address] RBC (Bld) [#/Vol] 3.04 x10*6/uL Low 4.00-5.20 [facility] Comment on above: Order Comment: [place] keon Top Tube Performed By: #### 2 4321-2 #### PATRICIA KINGHARIKA ([id number]) [facility] ([facility]) [facility] [place] [address] WBC (Bld) [#/Vol] 16.0 x10*3/uL High 4.4-11.3 [facility] Comment on above: Order Comment: [place] keon Top Tube Performed By: #### 2 4321-2 #### PATRICIA KINGHARIKA ([id number]) [facility] ([facility]) [address] [place] [address] CT CERVICAL SPINE WO IV CONT [facility] 06-05-2025 CT CERVICAL SPINE WO IV CONTRAST Interpreted By: Bartolo Manuel, STUDY: CT HEAD WO IV CONTRAST; CT CERVICAL SPINE WO IV CONTRAST; 06/05/2025 8:03 pm INDICATION: Signs/Symptoms:falls. COMPARISON: 01/07/2025. ACCESSION NUMBER(S): [id number]; [id number] ORDERING CLINICIAN: MANNY ALLEN TECHNIQUE: Noncontrast CT images of head. Axial noncontrast CT images of the cervical spine with coronal and sagittal reconstructed images. FINDINGS: BRAIN PARENCHYMA: There is some patchy hypoattenuation of the white matter consistent with chronic small-vessel ischemia. Waldron-white matter interfaces are preserved. No mass effect or midline shift. HEMORRHAGE: No acute intracranial hemorrhage. VENTRICLES and EXTRA-AXIAL SPACES: The ventricles and sulci are within normal limits in size for brain volume. No abnormal extraaxial fluid collection. EXTRACRANIAL SOFT TISSUES: Within normal limits. PARANASAL SINUSES/MASTOIDS: The visualized paranasal sinuses and mastoid air cells are aerated. CALVARIUM: No depressed skull fracture. No destructive osseous lesion. OTHER FINDINGS: None. CERVICAL SPINE: ALIGNMENT: Normal. VERTEBRAE: No acute fracture. SPINAL CANAL: No critical spinal canal stenosis. PREVERTEBRAL SOFT TISSUES: No prevertebral soft tissue swelling. LUNG APICES: Imaged portion of the lung apices are within normal limits. OTHER FINDINGS: None. IMPRESSION: No acute intracranial abnormality. No acute fracture or traumatic subluxation of the cervical spine. MACRO: None Signed by: Bartolo Manuel 06/05/2025 8:38 PM Dictation workstation: [id number] [facility] CT CHEST ABDOMEN PELVIS WO C ONTRASTon 06-05-2025 CT CHEST ABDOMEN PELVIS WO CONTRAST Interpreted By: Bartolo Manuel, STUDY: CT CHEST ABDOMEN PELVIS WO CONTRAST; 06/05/2025 8:07 pm INDICATION: Signs/Symptoms:assess for infection. COMPARISON: None. ACCESSION NUMBER(S): [id number] ORDERING CLINICIAN: MANNY ALLEN TECHNIQUE: Contiguous axial images of the chest, abdomen, and pelvis were obtained without contrast. Coronal and sagittal reformatted images were reconstructed from the axial data. FINDINGS: CT CHEST: There is streak artifact from the arms which were not raised. There is limitation without contrast. Heart size within normal limits. Patient is reportedly status post laryngectomy. There is a tube within the esophagus terminating distal esophagus. Lungs are clear without consolidation. Mild emphysema. There is some scarring in the lung apices. No effusions. CT ABDOMEN/PELVIS: There is marked steatosis of the liver. Gallbladder is absent. The adrenals pancreas spleen and kidneys are within normal limits No bowel obstruction. No evidence of colitis. There is some gas seen within the anterior bladder wall consistent with emphysematous cystitis. Bladder is otherwise collapsed appearing. No free fluid or significant adenopathy. Aonq-mb-dnstypwi calcification aorta and iliac arteries. Chronic appearing compression fracture L5. Multilevel [id number] degenerative disc disease and facet arthropathy seen. IMPRESSION: Bladder is collapsed. There is gas seen within the anterior bladder wall consistent with emphysematous cystitis. No other definite acute process seen in the chest, abdomen or pelvis. There is marked steatosis of the liver. MACRO: None. Signed by: Bartolo Manuel 06/05/2025 8:43 PM Dictation workstation: [id number] [facility] CT Chest and Abdomen and Pel vis WO contraston 06-05-2025 U[facility] MMODAL U[facility] MMODAL [facility] Work Phone: [facility] Work Phone: Radiology Study observation (narrative) [facility] Work Phone: CT HEAD WO IV CONTRASTon CT HEAD WO IV CONTRAST Interpreted By: Bartolo Manuel, STUDY: CT HEAD WO IV CONTRAST; CT CERVICAL SPINE WO IV CONTRAST; 06/05/2025 8:03 pm INDICATION: Signs/Symptoms:falls. COMPARISON: 01/07/2025. ACCESSION NUMBER(S): [id number]; [id number] ORDERING CLINICIAN: MANNY ALLEN TECHNIQUE: Noncontrast CT images of head. Axial noncontrast CT images of the cervical spine with coronal and sagittal reconstructed images. FINDINGS: BRAIN PARENCHYMA: There is some patchy hypoattenuation of the white matter consistent with chronic small-vessel ischemia. Waldron-white matter interfaces are preserved. No mass effect or midline shift. HEMORRHAGE: No acute intracranial hemorrhage. VENTRICLES and EXTRA-AXIAL SPACES: The ventricles and sulci are within normal limits in size for brain volume. No abnormal extraaxial fluid collection. EXTRACRANIAL SOFT TISSUES: Within normal limits. PARANASAL SINUSES/MASTOIDS: The visualized paranasal sinuses and mastoid air cells are aerated. CALVARIUM: No depressed skull fracture. No destructive osseous lesion. OTHER FINDINGS: None. CERVICAL SPINE: ALIGNMENT: Normal. VERTEBRAE: No acute fracture. SPINAL CANAL: No critical spinal canal stenosis. PREVERTEBRAL SOFT TISSUES: No prevertebral soft tissue swelling. LUNG APICES: Imaged portion of the lung apices are within normal limits. OTHER FINDINGS: None. IMPRESSION: No acute intracranial abnormality. No acute fracture or traumatic subluxation of the cervical spine. MACRO: None Signed by: Bartolo Manuel 06/05/2025 8:38 PM Dictation workstation: [id number] Normal [facility] Comprehensive metabolic 2000 panelon 06-05-2025 Albumin BCP dye [Mass/Vol] 3.1 g/dL Low 3.4 - 5.0 g/dL [facility] ALP [Catalytic activity/Vol] 210 U/L High 33 - 110 U/L [facility] ALT With P-5'-P [Catalytic activity/Vol] 19 U/L 7 - 45 U/L [facility] Anion gap [Moles/Vol] 30 mmol/L [facility] With P-5'-P [Catalytic activity/Vol] 149 U/L High 9 - 39 U/L [facility] Bilirubin [Mass/Vol] 1.6 mg/dL High 0.0 - 1 .2 mg/dL [facility] Calcium [Mass/Vol] 7.5 mg/dL Low 8.6 - 10. 3 mg/dL [facility] Chloride [Moles/Vol] 81 mmol/L Low 98 - 10 7 mmol/L [facility] CO2 [Moles/Vol] 22 mmol/L 21 - 32 mmol/L [facility] Creatinine [Mass/Vol] 1.06 mg/dL High 0.50 - 1.05 mg/dL [facility] GFR/1.73 sq M.predicted among non-blacks MDRD (S/P/Bld) [Vol rate/Area] 62 mL/min/{1.73_m2} - PINF [facility] Glucose [Mass/Vol] 124 mg/dL High 74 - 99 mg/dL [facility] Interpretation and review of laboratory results Abnormal [facility] Potassium [Moles/Vol] 2.9 mmol/L Critically low 3.5 - 5.3 mmol/L [facility] Protein [Mass/Vol] 6.4 g/dL 6.4 - 8.2 g/dL [facility] Sodium [Moles/Vol] 130 mmol/L Low 136 - 145 mmol/L [facility] Urea nitrogen [Mass/Vol] 10 mg/dL 6 - 23 mg/dL [facility] Albumin BCP dye [Mass/Vol] 3.1 g/dL Low 3.4-5.0 [facility] Comment on above: Performed By: #### 2 4321-2 #### GOMEZ PAT ([id number]) [facility] ([facility]) [address] [place] [address] ALP [Catalytic activity/Vol] 210 U/L High 33-110 [facility] Comment on above: Performed By: #### 2 4321-2 #### PATRICIA STEWART ([id number]) [facility] ([facility]) [address] [place] [address] ALT With P-5'-P [Catalytic activity/Vol] 19 U/L Normal 7-45 [facility] Comment on above: Result Comment: Karla ents treated with Sulfasalazine may generate falsely decreased results for ALT. Performed By: #### 2 4321-2 #### PATRICIA STEWART ([id number]) [facility] ([facility]) [address] [place] [address] Anion gap [Moles/Vol] 30 mmol/L Normal [facility] Comment on above: Performed By: #### 2 4321-2 #### PATRICIA STEWART ([id number]) [facility] ([facility]) [address] [place] [address] AST With P-5'-P [Catalytic activity/Vol] 149 U/L High 9-39 [facility] Comment on above: Performed By: #### 2 4321-2 #### PATRICIA STEWART ([id number]) [facility] ([facility]) [address] [place] [address] Bilirubin [Mass/Vol] 1.6 mg/dL High 0.0-1.2 [facility] Comment on above: Performed By: #### 2 4321-2 #### PATRICIA STEWART ([id number]) [facility] ([facility]) [address] [place] [address] Calcium [Mass/Vol] 7.5 mg/dL Low 8.6-10.3 [facility] Comment on above: Performed By: #### 2 4321-2 #### PATRICIA STEWART ([id number]) [facility] ([facility]) [facility] [place] [address] Chloride [Moles/Vol] 81 mmol/L Low 98-107 [facility] Comment on above: Performed By: #### 2 4321-2 #### PATRICIA STEWART ([id number]) [facility] ([facility]) [address] [place] [address] CO2 [Moles/Vol] 22 mmol/L Normal 21-32 [facility] Comment on above: Performed By: #### 2 4321-2 #### PATRICIA STEWART ([id number]) [facility] ([facility]) [address] [place] [address] 88811 Creatinine [Mass/Vol] 1.06 mg/dL High 0.50-1.05 [facility] Comment on above: Performed By: #### 2 4321-2 #### PATRICIA STEAWRT ([id number]) [facility] ([facility]) [address] [place] [address] 61057 Glomerular filtration rate/1.73 sq M.predicted 62 mL/min/1.73m*2 Normal >60 [facility] Comment on above: Result Comment: Calc ulations of estimated GFR are performed using the 2020 CKD-EPI Study Refit equation without the race variable for the IDMS-Traceable creatinine methods. https://jasn.asnjournals.org/content/early//ASN.103635 0367 Performed By: #### 2 4321-2 #### PATRICIA STEWART ([id number]) [facility] ([facility]) [address] [place] [address] 41571 Glucose [Mass/Vol] 124 mg/dL High 74-99 [facility] Comment on above: Performed By: #### 2 4321-2 #### PATRICIA STEWART ([id number]) [facility] ([facility]) [address] [place] [address] 70442 Potassium [Moles/Vol] 2.9 mmol/L Critically low 3.5-5.3 [facility] Comment on above: Result Comment: Conf irmed by repeat analysis Performed By: #### 2 4321-2 #### PATRICIA STEWART ([id number]) [facility] ([facility]) [address] [place] [address] 36035 Protein [Mass/Vol] 6.4 g/dL Normal 6.4-8.2 [facility] Comment on above: Performed By: #### 2 4321-2 #### PATRICIA STEWART ([id number]) [facility] ([facility]) [facility] [place] [address] Sodium [Moles/Vol] 130 mmol/L Low 136-145 [facility] Comment on above: Performed By: #### 2 4321-2 #### PATRICIA STEWART ([id number]) [facility] [facility] ([facility]) [address] [place], [place] [phone] Urea nitrogen [Mass/Vol] 10 mg/dL Normal 6-23 [facility] Comment on above: Performed By: #### 2 4321-2 #### PATRICIA STEWART ([id number]) [facility] ([facility]) [address] [place] [address] Critical Careon 06-05-2025 [facility] Work Phone: Critical CareOrdered By: Franny Blackburn on 06-05-2025 [facility] Work Phone: ECG 12-LEADon 06-05-2025 ECG 12-LEAD Ventricular Rate 121 Atrial Rate 121 P-R Interval 120 QRS Duration 80 Q-T Interval 368 QTC Calculation(Bazett) 522 P Orange 62 R Orange 52 T Orange 76 QRS Count 20 Q Onset 218 P Onset 158 P Offset 204 T Offset 402 QTC Fredericia 464 Diagnosis Sinus tachycardia Otherwise normal ECG When compared with ECG of 12-JAN-2025 17:34, Previous ECG has undetermined rhythm, needs review Criteria for Septal infarct are no longer Present Nonspecific T wave abnormality now evident in Lateral leads See ED provider note for full interpretation and clinical correlation Confirmed by Beatris Coello ([id number]) on 06/09/2025 12:50:01 PM Normal [facility] Ethanolon 06-05-2025 Ethanol [Mass/Vol] mg/dL NINF - 10 mg/dL [facility] Ethanol [Mass/Vol] mg/dL Normal <=10 [facility] Comment on above: Result Comment: For medical use only. Performed By: #### 2 4321-2 #### PATRICIA STEWART ([id number]) [facility] ([facility]) [address] [place] [address] Ethanol [Mass/Vol]on Interpretation and review of laboratory results Normal [facility] Lactateon 06-05-2025 Lactate [Moles/Vol] 4.8 mmol/L Critically high 0.4 - 2.0 mmol/L [facility] Lactate [Moles/Vol] 4.8 mmol/L Critically high 0.4-2.0 [facility] Comment on above: Order Comment: <100 pg/mL - Heart failure unlikely 100-299 pg/mL - Intermediate probability of acute heart failure exacerbation. Correlate with clinical context and patient history. >=300 pg/mL - Heart Failure likely. Correlate with clinical context and patient history. BNP testing is performed using different testing methodology at [facility] than at other [facility]. Direct result comparisons should only be made within the same method. Result Comment: Prev ious result verified on 06/05/20257 on specimen/case [id number] called with component LACT for procedure Lactate with value 11.9 mmol/L. Performed By: #### 3 0934-4 #### PATRICIA STEWART ([id number]) [facility] ([facility]) [address] [place] [address] 06828 Lactate [Moles/Vol] 11.9 mmol/L Critically high 0.4 - 2.0 mmol/L [facility] Lactate [Moles/Vol] 11.9 mmol/L Critically high 0.4-2.0 [facility] Comment on above: Order Comment: Venip uncture immediately after or during the administration of Metamizole may lead to falsely low results. Testing should be performed immediately prior to Metamizole dosing. Performed By: #### 2 4321-2 #### PATRICIA STEWART ([id number]) [facility] ([facility]) [address] [place] [address]52 Lactate [Moles/Vol]on 2024 Interpretation and review of laboratory results Abnormal [facility] Interpretation and review of laboratory results Abnormal [facility] Magnesiumon 06-05-2025 Magnesium [Mass/Vol] 1.14 mg/dL Low 1.60 - 2.40 mg/dL [facility] Magnesium [Mass/Vol] 1.14 mg/dL Low 1.60-2.40 [facility] Comment on above: Performed By: #### 3 0934-4 #### PATRICIA STEWART ([id number]) [facility] ([facility]) [address] [place] [address] Magnesium [Mass/Vol]on 06-05 Interpretation and review of laboratory results Abnormal [facility] No Panel Informationon 06-05 Interpretation and review of laboratory results Abnormal [facility] Interpretation and review of laboratory results Abnormal [facility] MMODAL U[facility] MMODAL [facility] Work Phone: Radiology Study observation (narrative) [facility] Work Phone: [facility] No Panel InformationOrdered By: Bartolo Manuel on 06-05-2025 [facility] Work Phone: T4, freeon 06-05-2025 Free T4 [Mass/Vol] 1.13 ng/dL High 0.61 - 1. 12 ng/dL [facility] TSHon 06-05-2025 TSH Qn 18.60 m[IU]/L High [facility] Thyrotropinon 06-05-2025 TSH Qn 18.60 m[IU]/L High 0.44-3.98 [facility] Comment on above: Order Comment: <100 pg/mL - Heart failure unlikely 100-299 pg/mL - Intermediate probability of acute heart failure exacerbation. Correlate with clinical context and patient history. >=300 pg/mL - Heart Failure likely. Correlate with clinical context and patient history. BNP testing is performed using different testing methodology at [facility] than at other [facility]. Direct result comparisons should only be made within the same method. Performed By: #### 3 0934-4 #### PATRICIA STEWART ([id number]) [facility] ([facility]) [address] [place] [id number] Thyroxine.freeon 06-05-2025 Free T4 [Mass/Vol] 1.13 ng/dL High 0.61-1.12 [facility] Comment on above: Order Comment: <100 pg/mL - Heart failure unlikely 100-299 pg/mL - Intermediate probability of acute heart failure exacerbation. Correlate with clinical context and patient history. >=300 pg/mL - Heart Failure likely. Correlate with clinical context and patient history. BNP testing is performed using different testing methodology at [facility] than at other [facility]. Direct result comparisons should only be made within the same method. Performed By: #### 3 0934-4 #### GOMEZ PAT ([id number]) [facility] ([facility]) [address] [place] [address] Urinalysis complete W Reflex Culture panel (U)on 06-05-2025 Appearance (U) Ex.Turbid Abnormal Clear [facility] Bilirubin (U) [Mass/Vol] 0.5 (1+) Abnormal NEGATIVE mg/dL [facility] Color (U) Dark-Yellow Light-Yellow , Yellow, Dark-Yellow [facility] Glucose Auto test strip (U) [Mass/Vol] 30 (TRACE) Abnormal Normal mg/dL [facility] Ketones (U) [Mass/Vol] Negative NEGATIVE mg/dL [facility] Leukocyte esterase Auto test strip Ql (U) 75 Irma/uL Abnormal NEGATIVE [facility] Nitrite Auto test strip Ql (U) Negative NEGATIVE [facility] pH (U) 6.0 [pH] 5.0, 5.5, 6.0, 6.5, 7.0, 7.5, 8.0 [facility] Protein (U) [Mass/Vol] 50 (1+) Abnormal NEGATIVE, 10 (TRACE), 20 (TRACE) mg/dL [facility] RBC (U) [#/Vol] Negative NEGATIVE mg/dL [facility] Specific gravity (U) [Rel density] 1.034 1.005 - 1.035 [facility] Urobilinogen (U) [Mass/Vol] 2 (1+) Abnormal Normal mg/dL [facility] Appearance (U) Ex.Turbid Normal Clear [facility] Comment on above: Performed By: #### 3 34-4 #### PATRICIA STEWART ([id number]) [facility] ([facility]) [address] [place] [address] Bilirubin (U) [Mass/Vol] 0.5 (1+) Abnormal NEGATIVE [facility] Comment on above: Performed By: #### 3 34-4 #### PATRICIA STEWART ([id number]) [facility] ([facility]) [address] [place] [address] Color (U) Dark-Yellow Normal Light-Yellow , Yellow, Dark-Yellow [facility] Comment on above: Performed By: #### 3 34-4 #### PATRICIA STEWART ([id number]) [facility] ([facility]) [address] [place] [address] Glucose Auto test strip (U) [Mass/Vol] 30 (TRACE) Abnormal Normal [facility] Comment on above: Performed By: #### 3 34-4 #### PATRICIA STEWART ([id number]) [facility] ([facility]) [address] [place] [address] Ketones (U) [Mass/Vol] Negative Normal NEGATIVE [facility] Comment on above: Performed By: #### 3 34-4 #### PATRICIA STEWART ([id number]) [facility] ([facility]) [address] [place] [address] Leukocyte esterase Auto test strip Ql (U) 75 Irma/uL Abnormal NEGATIVE [facility] Comment on above: Performed By: #### 3 0934-4 #### PATRICIA STEWART ([id number]) [facility] ([facility]) [address] [place] [address] Nitrite Auto test strip Ql (U) Negative Normal NEGATIVE [facility] Comment on above: Performed By: #### 3 0934-4 #### PATRICIA STEWART ([id number]) [facility] ([facility]) [address] [place] [address] pH (U) 6.0 [pH] Normal 5.0, 5.5, 6.0, 6.5, 7.0, 7.5, 8.0 [facility] Comment on above: Performed By: #### 3 0934-4 #### PATRICIA STEWART ([id number]) [facility] ([facility]) [address] [place] [address] Protein (U) [Mass/Vol] 50 (1+) Abnormal NEGATIVE, 10 (TRACE), 20 (TRACE) [facility] Comment on above: Performed By: #### 3 0934-4 #### PATRICIA STEWART ([id number]) [facility] ([facility]) [address] [place] [address]252 RBC (U) [#/Vol] Negative Normal NEGATIVE [facility] Comment on above: Performed By: #### 3 0934-4 #### PATRICIA STEWART ([id number]) [facility] ([facility]) [address] [place] [address]114 Specific gravity (U) [Rel density] 1.034 Normal 1.005-1.035 [facility] Comment on above: Performed By: #### 3 0934-4 #### PATRICIA STEWART ([id number]) [facility] ([facility]) [address] [place] [address] 490[address] Urobilinogen (U) [Mass/Vol] 2 (1+) Abnormal Normal [facility] Comment on above: Result Comment: Due to a manufacturing issue, low positive urobilinogen results may be falsely positive. Correlate with urine bilirubin and additional clinical/laboratory findings to assess the risk of hemolytic anemia or liver disease. If clinically indicated, repeat testing with an alternate method is available by contacting the laboratory within 24 hours. Some pigments and medications may cause a false positive urobilinogen. Performed By: #### 3 0934-4 #### PATRICIA STEWART ([id number]) [facility] ([facility]) [address] [place] [address]003 Urinalysis microscopic panel Auto Ql (U)on 06-05-2025 Mucus Auto (Urine sed) [#/Area] FEW Reference range not established. /LPF [facility] RBC Auto (Urine sed) [#/Area] 6-10 Abnormal NONE, 1-2, 3-5 /HPF [facility] WBC Auto (Urine sed) [#/Area] 21-50 Abnormal 1-5, NONE /HPF [facility] Mucus Auto (Urine sed) [#/Area] FEW Normal Reference range not established. [facility] Comment on above: Performed By: #### 3 0934-4 #### PATRICIA STEWART ([id number]) [facility] ([facility]) [facility] [place] [address] RBC Auto (Urine sed) [#/Area] 6-10 Abnormal NONE, 1-2, 3-5 [facility] Comment on above: Performed By: #### 3 0934-4 #### PATRICIA STEWART ([id number]) [facility] ([facility]) [address] [place] [address] 32465 WBC Auto (Urine sed) [#/Area] 21-50 Abnormal 1-5, NONE [facility] Comment on above: Performed By: #### 3 0934-4 #### PATRICIA STEWART ([id number]) [facility] ([facility]) [address] [place] [address] XR CHEST 1 VIEWon 06-05-2025 XR CHEST 1 VIEW Interpreted By: Surya Singh, STUDY: XR CHEST 1 VIEW; 06/05/2025 6:43 pm INDICATION: Signs/Symptoms:tachycar dic. COMPARISON: None. ACCESSION NUMBER(S): [id number] ORDERING CLINICIAN: MANNY ALLEN FINDINGS: Tracheostomy tube in place CARDIOMEDIASTINAL SILHOUETTE: Cardiomediastinal silhouette is normal in size and configuration. LUNGS: Lungs are hyperinflated. No consolidation or effusion. There is no edema ABDOMEN: No remarkable upper abdominal findings. BONES: No acute osseous changes. IMPRESSION: 1. No evidence of acute cardiopulmonary process. MACRO: None Signed by: Surya Rubio 06/05/2025 6:50 PM Dictation workstation: [id number] Normal [facility] XR Chest Single viewon 06-05 [facility] MMODAL U[facility] MMODAL [facility] Work Phone: Radiology Study observation (narrative) [facility] Work Phone: XR Chest Single viewOrdered By: Surya Rubio on 06-05-2025 [facility] Work Phone: CBC panel Auto (Bld)on 01-12 Erythrocyte distribution width (RBC) [Ratio] 12.9 % 11.5 - 14.5 % [facility] Hematocrit (Bld) [Volume fraction] 45.9 % 36.0 - 46.0 % [facility] Hemoglobin (Bld) [Mass/Vol] 14.6 g/dL 12.0 - 16.0 g/dL [facility] Interpretation and review of laboratory results Abnormal [facility] MCH (RBC) [Entitic mass] 29.6 pg 26.0 - 34.0 pg [facility] MCHC (RBC) [Mass/Vol] 31.8 g/dL Low 32.0 - 36.0 g/dL [facility] MCV (RBC) [Entitic vol] 93 fL 80 - 100 fL [facility] Nucleated RBC/100 WBC (Bld) [Ratio] 0 % [facility] Platelets (Bld) [#/Vol] 291 10*3/uL [facility] Comment on above: Platelet count verif ied by smear review. RBC (Bld) [#/Vol] 4.93 10*6/uL [facility] WBC (Bld) [#/Vol] 8.4 10*3/uL [facility] Erythrocyte distribution width (RBC) [Ratio] 12.9 % Normal 11.5-14.5 [facility] Comment on above: Performed By: #### 1 9123-9 #### PATRICIA STEWART ([id number]) [facility] ([facility]) [address] [place] [address]252 Hematocrit (Bld) [Volume fraction] 45.9 % Normal 36.0-46.0 [facility] Comment on above: Performed By: #### 1 9123-9 #### PATRICIA STEWART ([id number]) [facility] ([facility]) [address] [place] [address] Hemoglobin (Bld) [Mass/Vol] 14.6 g/dL Normal 12.0-16.0 [facility] Comment on above: Performed By: #### 1 9123-9 #### PATRICIA STEWART ([id number]) [facility] ([facility]) [address] [place] [address] MCH (RBC) [Entitic mass] 29.6 pg Normal 26.0-34.0 [facility] Comment on above: Performed By: #### 1 9123-9 #### PATRICIA STEWART ([id number]) [facility] ([facility]) [address] [place] [address] MCHC (RBC) [Mass/Vol] 31.8 g/dL Low 32.0-36.0 [facility] Comment on above: Performed By: #### 1 9123-9 #### PATRICIA STEWART ([id number]) [facility] ([facility]) [address] [place], [place] [phone] MCV (RBC) [Entitic vol] 93 fL Normal 80-100 [facility] Comment on above: Performed By: #### 1 9123-9 #### PATRICIA STEWART ([id number]) [facility] ([facility]) [address] [place], [place] [address] Nucleated RBC/100 WBC (Bld) [Ratio] 0.0 /100 WBCs Normal 0.0-0.0 [facility] Comment on above: Performed By: #### 1 9123-9 #### PATRICIA STEWART ([id number]) [facility] ([facility]) [address] [place] [address] Platelets (Bld) [#/Vol] 291 x10*3/uL Normal 150-450 [facility] Comment on above: Result Comment: Plat elet count verified by smear review. Performed By: #### 1 9123-9 #### PATRICIA STEWART ([id number]) [facility] ([facility]) [address] [place] [address] 28535 RBC (Bld) [#/Vol] 4.93 x10*6/uL Normal 4.00-5.20 [facility] Comment on above: Performed By: #### 1 9123-9 #### PATRICIA PAT ([id number]) [facility] ([facility]) [address] [place] [address] WBC (Bld) [#/Vol] 8.4 x10*3/uL Normal 4.4-11.3 [facility] Comment on above: Performed By: #### 1 9123-9 #### PATRICIA PAT ([id number]) [facility] ([facility]) [address] [place] [address] CT CHEST WO IV CONTRASTon CT CHEST WO IV CONTRAST Interpreted By: Jan Morales, STUDY: CT CHEST WO IV CONTRAST; 01/12/2025 7:22 pm INDICATION: Signs/Symptoms:SOB. COMPARISON: None. ACCESSION NUMBER(S): [id number] ORDERING CLINICIAN: BEATRIS COELLO TECHNIQUE: Helical data acquisition of the chest was obtained without IV contrast material. Images were reformatted in axial, coronal, and sagittal planes. FINDINGS: LUNGS AND AIRWAYS: The trachea and central airways are patent. No endobronchial lesion. Tracheostomy cannula is partially visualized in the upper trachea. Small patchy airspace opacity is present in the anterior aspect of the left lower lobe (series 8, image 186). Several additional small subpleural airspace opacities are present in the left upper lobe (series 8, image 125) and in the right upper lobe (series 8, image 94 and 143). No consolidation, sizeable pleural effusion or pneumothorax is present. MEDIASTINUM AND VICTOR M, LOWER NECK AND AXILLA: The visualized thyroid gland is within normal limits. No evidence of thoracic lymphadenopathy by CT criteria. There is no pneumomediastinum. Esophagus appears within normal limits as seen. HEART AND VESSELS: The thoracic aorta is of normal course and caliber with mild vascular calcifications. Main pulmonary artery and its branches are normal in caliber. No coronary artery calcifications are seen. The study is not optimized for evaluation of coronary arteries. The cardiac chambers are not enlarged. No evidence of pericardial effusion. UPPER ABDOMEN: The visualized subdiaphragmatic structures demonstrate no remarkable findings. CHEST WALL AND OSSEOUS STRUCTURES: There are no suspicious osseous lesions. Multilevel degenerative changes are present in the thoracic spine without compression fracture or high-grade stenosis. IMPRESSION: Several small subpleural airspace opacities are present in the lungs bilaterally, possibly representing developing infiltrate. No sizable consolidation, pleural effusion or significant abnormality is otherwise identified in the thorax. MACRO: None Signed by: Jan Morales 01/12/2025 7:36 PM Dictation workstation: [id number] [facility] CT Chest WO contraston 01-12 Several small subpleural airspace opacities are present in the lungs bilaterally, possibly representing developing infiltrate. No sizable consolidation, pleural effusion or significant abnormality is otherwise identified in the thorax. MACRO: None Signed by: Jan Morales 01/12/2025 7:36 PM Dictation workstation: [id number] MMODAL Interpreted By: Jan Morales, STUDY: CT CHEST WO IV CONTRAST; 01/12/2025 7:22 pm INDICATION: Signs/Symptoms:SOB. COMPARISON: None. ACCESSION NUMBER(S): [id number] ORDERING CLINICIAN: BEATRIS COELLO TECHNIQUE: Helical data acquisition of the chest was obtained without IV contrast material. Images were reformatted in axial, coronal, and sagittal planes. FINDINGS: LUNGS AND AIRWAYS: The trachea and central airways are patent. No endobronchial lesion. Tracheostomy cannula is partially visualized in the upper trachea. Small patchy airspace opacity is present in the anterior aspect of the left lower lobe (series 8, image 186). Several additional small subpleural airspace opacities are present in the left upper lobe (series 8, image 125) and in the right upper lobe (series 8, image 94 and 143). No consolidation, sizeable pleural effusion or pneumothorax is present. MEDIASTINUM AND VICTOR M, LOWER NECK AND AXILLA: The visualized thyroid gland is within normal limits. No evidence of thoracic lymphadenopathy by CT criteria. There is no pneumomediastinum. Esophagus appears within normal limits as seen. HEART AND VESSELS: The thoracic aorta is of normal course and caliber with mild vascular calcifications. Main pulmonary artery and its branches are normal in caliber. No coronary artery calcifications are seen. The study is not optimized for evaluation of coronary arteries. The cardiac chambers are not enlarged. No evidence of pericardial effusion. UPPER ABDOMEN: The visualized subdiaphragmatic structures demonstrate no remarkable findings. CHEST WALL AND OSSEOUS STRUCTURES: There are no suspicious osseous lesions. Multilevel degenerative changes are present in the thoracic spine without compression fracture or high-grade stenosis. [facility] MMODAL John Morales v, MD - 01/12/2025 Interpreted By: Jan Morales, STUDY: CT CHEST WO IV CONTRAST; 01/12/2025 7:22 pm INDICATION: Signs/Symptoms:SOB. COMPARISON: None. ACCESSION NUMBER(S): [id number] ORDERING CLINICIAN: BEATRIS COELLO TECHNIQUE: Helical data acquisition of the chest was obtained without IV contrast material. Images were reformatted in axial, coronal, and sagittal planes. FINDINGS: LUNGS AND AIRWAYS: The trachea and central airways are patent. No endobronchial lesion. Tracheostomy cannula is partially visualized in the upper trachea. Small patchy airspace opacity is present in the anterior aspect of the left lower lobe (series 8, image 186). Several additional small subpleural airspace opacities are present in the left upper lobe (series 8, image 125) and in the right upper lobe (series 8, image 94 and 143). No consolidation, sizeable pleural effusion or pneumothorax is present. MEDIASTINUM AND VICTOR M, LOWER NECK AND AXILLA: The visualized thyroid gland is within normal limits. No evidence of thoracic lymphadenopathy by CT criteria. There is no pneumomediastinum. Esophagus appears within normal limits as seen. HEART AND VESSELS: The thoracic aorta is of normal course and caliber with mild vascular calcifications. Main pulmonary artery and its branches are normal in caliber. No coronary artery calcifications are seen. The study is not optimized for evaluation of coronary arteries. The cardiac chambers are not enlarged. No evidence of pericardial effusion. UPPER ABDOMEN: The visualized subdiaphragmatic structures demonstrate no remarkable findings. CHEST WALL AND OSSEOUS STRUCTURES: There are no suspicious osseous lesions. Multilevel degenerative changes are present in the thoracic spine without compression fracture or high-grade stenosis. IMPRESSION: Several small subpleural airspace opacities are present in the lungs bilaterally, possibly representing developing infiltrate. No sizable consolidation, pleural effusion or significant abnormality is otherwise identified in the thorax. MACRO: None Signed by: Jan Morales 01/12/2025 7:36 PM Dictation workstation: [id number] [facility] Work Phone: Radiology Study observation (narrative) [facility] Work Phone: CT Chest WO contrastOrdered By: Jan Morales on 01-12-2025 [facility] Work Phone: Comprehensive metabolic 2000 panelon 01-12-2025 Albumin BCP dye [Mass/Vol] 4.2 g/dL 3.4 - 5.0 g/dL [facility] ALP [Catalytic activity/Vol] 104 U/L 33 - 110 U/L [facility] ALT With P-5'-P [Catalytic activity/Vol] 7 U/L 7 - 45 U/L [facility] Comment on above: Patients treated wit h Sulfasalazine may generate falsely decreased results for ALT. Anion gap [Moles/Vol] 12 mmol/L 10 - 2 0 mmol/L [facility] AST With P-5'-P [Catalytic activity/Vol] 22 U/L 9 - 39 U/L [facility] Bilirubin [Mass/Vol] 0.4 mg/dL 0.0 - 1 .2 mg/dL [facility] Calcium [Mass/Vol] 9.5 mg/dL 8.6 - 10. 3 mg/dL [facility] Chloride [Moles/Vol] 101 mmol/L 98 - 10 7 mmol/L [facility] CO2 [Moles/Vol] 27 mmol/L 21 - 32 mmol/L [facility] Creatinine [Mass/Vol] 0.82 mg/dL 0.50 - 1.05 mg/dL [facility] GFR/1.73 sq M.predicted among non-blacks MDRD (S/P/Bld) [Vol rate/Area] 85 mL/min/{1.73_m2} - PINF [facility] Comment on above: Calculations of bree mated GFR are performed using the 2020 CKD-EPI Study Refit equation without the race variable for the IDMS-Traceable creatinine methods. https://jasn.asnjournals.org/content//ASN.576613 1115 Glucose [Mass/Vol] 93 mg/dL 74 - 99 mg/dL [facility] Interpretation and review of laboratory results Abnormal [facility] Potassium [Moles/Vol] 4.8 mmol/L 3.5 - 5.3 mmol/L [facility] Protein [Mass/Vol] 7.5 g/dL 6.4 - 8.2 g/dL [facility] Sodium [Moles/Vol] 135 mmol/L Low 136 - 145 mmol/L [facility] Urea nitrogen [Mass/Vol] 10 mg/dL 6 - 23 mg/dL [facility] Albumin BCP dye [Mass/Vol] 4.2 g/dL Normal 3.4-5.0 [facility] Comment on above: Performed By: #### 1 9123-9 #### PATRICIA STEWART ([id number]) [facility] [facility]) [facility] [place] [address] ALP [Catalytic activity/Vol] 104 U/L Normal 33-110 [facility] Comment on above: Performed By: #### 1 9123-9 #### PATRICIA STEWART ([id number]) [facility] ([facility]) [facility] [place] [address] ALT With P-5'-P [Catalytic activity/Vol] 7 U/L Normal 7-45 [facility] Comment on above: Result Comment: Karla ents treated with Sulfasalazine may generate falsely decreased results for ALT. Performed By: #### 1 9123-9 #### PATRICIA STEWART ([id number]) [facility] ([facility]) [facility] [place] [address] Anion gap [Moles/Vol] 12 mmol/L Normal 10-20 [facility] Comment on above: Performed By: #### 1 9123-9 #### PATRICIA STEWART ([id number]) [facility] ([facility]) [address] [place] [address] AST With P-5'-P [Catalytic activity/Vol] 22 U/L Normal 9-39 [facility] Comment on above: Performed By: #### 1 9123-9 #### PATRICIA STEWART ([id number]) [facility] ([facility]) [address] [place] [address] Bilirubin [Mass/Vol] 0.4 mg/dL Normal 0.0-1.2 [facility] Comment on above: Performed By: #### 1 9123-9 #### PATRICIA STEWART ([id number]) [facility] ([facility]) [address] [place] [address] Calcium [Mass/Vol] 9.5 mg/dL Normal 8.6-10.3 [facility] Comment on above: Performed By: #### 1 9123-9 #### PATRICIA STEWART ([id number]) [facility] ([facility]) [address] [place] [address] Chloride [Moles/Vol] 101 mmol/L Normal 98-107 [facility] Comment on above: Performed By: #### 1 9123-9 #### PATRICIA STEWART ([id number]) [facility] ([facility]) [address] [place] [address] CO2 [Moles/Vol] 27 mmol/L Normal 21-32 [facility] Comment on above: Performed By: #### 1 9123-9 #### PATRICIA STEWART ([id number]) [facility] ([facility]) [address] [place] [address] Creatinine [Mass/Vol] 0.82 mg/dL Normal 0.50-1.05 [facility] Comment on above: Performed By: #### 1 9123-9 #### PATRICIA STEWART ([id number]) [facility] ([facility]) [address] [place] [address] Glomerular filtration rate/1.73 sq M.predicted 85 mL/min/1.73m*2 Normal >60 [facility] Comment on above: Result Comment: Calc ulations of estimated GFR are performed using the 2020 CKD-EPI Study Refit equation without the race variable for the IDMS-Traceable creatinine methods. https://jasn.asnjournals.org/content/early//ASN.878079 9533 Performed By: #### 1 9123-9 #### PATRICIA STEWART ([id number]) [facility] ([facility]) [address] [place] [address] Glucose [Mass/Vol] 93 mg/dL Normal 74-99 [facility] Comment on above: Performed By: #### 1 9123-9 #### PATRICIA STEWART ([id number]) [facility] ([facility]) [address] [place] [address] Potassium [Moles/Vol] 4.8 mmol/L Normal 3.5-5.3 [facility] Comment on above: Performed By: #### 1 9123-9 #### PATRICIA STEWART ([id number]) [facility] ([facility]) [address] [place] [address] Protein [Mass/Vol] 7.5 g/dL Normal 6.4-8.2 [facility] Comment on above: Performed By: #### 1 9123-9 #### PATRICIA STEWART ([id number]) [facility] ([facility]) [address] [place] [address] Sodium [Moles/Vol] 135 mmol/L Low 136-145 [facility] Comment on above: Performed By: #### 1 9123-9 #### PATRICIA STEWART ([id number]) [facility] ([facility]) [address] [place] [address] 473[address] Urea nitrogen [Mass/Vol] 10 mg/dL Normal -23 [facility] Comment on above: Performed By: #### 1 9123-9 #### PATRICIA STEWRAT ([id number]) [facility] ([facility]) [address] [place] [address] 23722 ECG 12-LEADon 01-12-2025 ECG 12-LEAD Ventricular Rate 97 Atrial Rate 97 P-R Interval 136 QRS Duration 58 Q-T Interval 338 QTC Calculation(Bazett) 429 P Orange 69 R Orange 60 T Orange 50 QRS Count 16 Q Onset 226 P Onset 158 P Offset 199 T Offset 395 QTC Fredericia 396 Diagnosis Undetermined rhythm Septal infarct , age undetermined Abnormal ECG When compared with ECG of 11-JAN-2025 07:12, (unconfirmed) Current undetermined rhythm precludes rhythm comparison, needs review QRS duration has decreased Septal infarct is now Present T wave amplitude has increased in Lateral leads See ED provider note for full interpretation and clinical correlation Confirmed by Manny Allen ([id number]) on 01/15/2025 2:02:27 PM Normal [facility] FLUAV and FLUBV RNA CRISTHIAN+prob e Nom (Unsp spec)on 01-12-2025 FLUAV RNA CRISTHIAN+probe Ql (Resp) Not detected Not Detected [facility] FLUBV RNA CRISTHIAN+probe Ql (Resp) Not detected Not Detected [facility] This assay is an in vitro diagnostic multiplex nucleic acid amplification test for the detection and discrimination of Influenza A & B from nasopharyngeal specimens, and has been validated for use at [facility]. Negative results do not preclude Influenza A/B infections, and should not be used as the sole basis for diagnosis, treatment, or other management decisions. If Influenza A/B and RSV PCR results are negative, testing for Parainfluenza virus, Adenovirus and Metapneumovirus is routinely performed for [facility] [place]ology and intensive care inpatients, and is available on other patients by placing an add-on request. [facility] FLUAV RNA CRISTHIAN+probe Ql (Resp) Not detected Normal Not Detected [facility] Comment on above: Order Comment: This assay is an in vitro diagnostic multiplex nucleic acid amplification test for the detection and discrimination of Influenza A & B from nasopharyngeal specimens, and has been validated for use at [facility]. Negative results do not preclude Influenza A/B infections, and should not be used as the sole basis for diagnosis, treatment, or other management decisions. If Influenza A/B and RSV PCR results are negative, testing for Parainfluenza virus, Adenovirus and Metapneumovirus is routinely performed for [facility] oncology and intensive care inpatients, and is available on other patients by placing an add-on request. Performed By: #### 2 4321-2 #### GOMEZ PAT ([id number]) [facility] ([facility]) [address] [place] [address] FLUBV RNA CRISTHIAN+probe Ql (Resp) Not detected Normal Not Detected [facility] Comment on above: Order Comment: This assay is an in vitro diagnostic multiplex nucleic acid amplification test for the detection and discrimination of Influenza A & B from nasopharyngeal specimens, and has been validated for use at [facility]. Negative results do not preclude Influenza A/B infections, and should not be used as the sole basis for diagnosis, treatment, or other management decisions. If Influenza A/B and RSV PCR results are negative, testing for Parainfluenza virus, Adenovirus and Metapneumovirus is routinely performed for [facility] oncology and intensive care inpatients, and is available on other patients by placing an add-on request. Performed By: #### 2 4321-2 #### GOMEZ PAT ([id number]) [facility] ([facility]) [address] [place] [address] Lipaseon 01-12-2025 Lipase [Catalytic activity/Vol] 36 U/L 9 - 82 U/L [facility] Lipase [Catalytic activity/V ol]on 01-12-2025 Interpretation and review of laboratory results Normal [facility] Venipuncture immediately after or during the administration of Metamizole may lead to falsely low results. Testing should be performed immediately prior to Metamizole dosing. [facility] Natriuretic peptide B [Mass/ Vol]on 01-12-2025 Interpretation and review of laboratory results Normal [facility] Natriuretic peptide B (Bld) [Mass/Vol] 92 pg/mL 0 - 99 pg/mL [facility] <100 pg/mL - Heart failure unlikely 100-299 pg/mL - Intermediate probability of acute heart failure exacerbation. Correlate with clinical context and patient history. >=300 pg/mL - Heart Failure likely. Correlate with clinical context and patient history. BNP testing is performed using different testing methodology at [facility] than at other [facility]. Direct result comparisons should only be made within the same method. [facility] Natriuretic peptide B (Bld) [Mass/Vol] 92 pg/mL Normal 0-99 [facility] Comment on above: Order Comment: <100 pg/mL - Heart failure [id number] pg/mL - Intermediate probability of acute heart failure exacerbation. Correlate with clinical context and patient history. >=300 pg/mL - Heart Failure likely. Correlate with clinical context and patient history.BNP testing is performed using different testing methodology at [facility] than at other [facility]. Direct result comparisons should only be made within the same method. Performed By: #### 1 9123-9 #### PATRICIA STEWART ([id number]) [facility] ([facility]) [address] [place] [address] No Panel Informationon 01-12 Interpretation and review of laboratory results Normal [facility] SARS coronavirus 2 RNAon SARS-CoV-2 (COVID-19) RNA CRISTHIAN+probe Ql (Resp) Not detected Normal Not Detected [facility] Comment on above: Order Comment: This assay is an FDA-cleared, in vitro diagnostic nucleic acid amplification test for the qualitative detection and differentiation of SARS CoV-2 from nasopharyngeal specimens collected from individuals with signs and symptoms of respiratory tract infections, and has been validated for use at [facility]. Negative results do not preclude COVID-19 infections and should not be used as the sole basis for diagnosis, treatment, or other management decisions. Testing for SARS CoV-2 is recommended only for patients who meet current clinical and/or epidemiological criteria defined by federal, state, or local public health directives. Performed By: #### 2 4321-2 #### PATRICIA STEWART ([id number]) [facility] ([facility]) [address] [place] [address] SARS-CoV-2 (COVID-19) RNA NA A+probe Ql (Resp)on 01-12-2025 This assay is an FDA-cleared, in vitro diagnostic nucleic acid amplification test for the qualitative detection and differentiation of SARS CoV-2 from nasopharyngeal specimens collected from individuals with signs and symptoms of respiratory tract infections, and has been validated for use at [facility]. Negative results do not preclude COVID-19 infections and should not be used as the sole basis for diagnosis, treatment, or other management decisions. Testing for SARS CoV-2 is recommended only for patients who meet current clinical and/or epidemiological criteria defined by federal, state, or local public health directives. [facility] Sars-CoV-2 PCRon 01-12-2025 SARS-CoV-2 (COVID-19) RNA CRISTHIAN+probe Ql (Resp) Not detected Not Detected [facility] Triacylglycerol lipaseon Lipase [Catalytic activity/Vol] 36 U/L Normal 9-82 [facility] Comment on above: Order Comment: Venip uncture immediately after or during the administration of Metamizole may lead to falsely low results. Testing should be performed immediately prior to Metamizole dosing. Performed By: #### 1 9123-9 #### GOMEZ PAT ([id number]) [facility] ([facility]) [address] [place] [address] Tropinin I.cardiac panel Hig h sensitivity methodon 01-12-2025 Interpretation and review of laboratory results Normal [facility] Less than 99th percentile of normal range cutoff- Female and children under 18 years old <14 ng/L; Male <21 ng/L: Negative Repeat testing should be performed if clinically indicated. Female and children under 18 years old 14-50 ng/L; Male 21-50 ng/L: Consistent with possible cardiac damage and possible increased clinical risk. Serial measurements may help to assess extent of myocardial damage. >50 ng/L: Consistent with cardiac damage, increased clinical risk and myocardial infarction. Serial measurements may help assess extent of myocardial damage. NOTE: Children less than 1 year old may have higher baseline troponin levels and results should be interpreted in conjunction with the overall clinical context. NOTE: Troponin I testing is performed using a different testing methodology at [facility] than at other [facility]. Direct result comparisons should only be made within the same method. [facility] Troponin I, High Sensitivity on 01-12-2025 Tropinin I.cardiac panel High sensitivity method 4 ng/L 0 - 13 ng/L [facility] Troponin I.cardiac panelon 0 01-12-2025 Tropinin I.cardiac panel High sensitivity method 4 ng/L Normal 0-13 [facility] Comment on above: Order Comment: Less than 99th percentile of normal range cutoff-Female and children under 18 years old <14 ng/L; Male <21 ng/L: NegativeRepeat testing should be performed if clinically indicated.Female and children under 18 years old 14-50 ng/L; Male 21-50 ng/L:Consistent with possible cardiac damage and possible increased clinicalrisk. Serial measurements may help to assess extent of myocardial damage.>50 ng/L: Consistent with cardiac damage, increased clinical risk andmyocardial infarction. Serial measurements may help assess extent ofmyocardial damage.NOTE: Children less than 1 year old may have higher baseline troponinlevels and results should be interpreted in conjunction with the overallclinical context.NOTE: Troponin I testing is performed using a differenttesting methodology at [facility] Direct result comparisons should onlybe made within the same method. Performed By: #### 1 9123-9 #### PATRICIA STEWART ([id number]) [facility] ([facility]) [address] [place] [address] Urinalysis complete W Reflex Culture panel (U)on 01-12-2025 Appearance (U) Clear Clear [facility] Bilirubin (U) [Mass/Vol] Negative NEGATIVE mg/dL [facility] Color (U) Light-Yellow Light-Yellow , Yellow, Dark-Yellow [facility] Glucose Auto test strip (U) [Mass/Vol] Normal Normal mg/dL [facility] Interpretation and review of laboratory results Normal [facility] Ketones (U) [Mass/Vol] Negative NEGATIVE mg/dL [facility] Leukocyte esterase Auto test strip Ql (U) Negative NEGATIVE [facility] Nitrite Auto test strip Ql (U) Negative NEGATIVE [facility] pH (U) 7 [pH] 5.0, 5.5, 6.0, 6.5, 7.0, 7.5, 8.0 [facility] Protein (U) [Mass/Vol] Negative NEGATIVE, 10 (TRACE), 20 (TRACE) mg/dL [facility] RBC (U) [#/Vol] Negative NEGATIVE mg/dL [facility] Specific gravity (U) [Rel density] 1.010 1.005 - 1.035 [facility] Urobilinogen (U) [Mass/Vol] Normal Normal mg/dL [facility] Appearance (U) Clear Normal Clear [facility] Comment on above: Performed By: #### 2 4321-2 #### PATRICIA STEWART ([id number]) [facility] ([facility]) [address] [place], [place] [id number] Bilirubin (U) [Mass/Vol] Negative Normal NEGATIVE [facility] Comment on above: Performed By: #### 2 4321-2 #### PATRICIA STEWART ([id number]) [facility] ([facility]) [address] [place] [address] Color (U) Light-Yellow Normal Light-Yellow , Yellow, Dark-Yellow [facility] Comment on above: Performed By: #### 2 4321-2 #### PATRICIA STEWART ([id number]) [facility] ([facility]) [address] [place] [address]58 Glucose Auto test strip (U) [Mass/Vol] Normal Normal Normal [facility] Comment on above: Performed By: #### 2 4321-2 #### PATRICIA STEWART ([id number]) [facility] ([facility]) [address] [place] [address] 51462 Ketones (U) [Mass/Vol] Negative Normal NEGATIVE [facility] Comment on above: Performed By: #### 2 4321-2 #### PATRICIA STEWART ([id number]) [facility] ([facility]) [address] [place] [address] 42745 Leukocyte esterase Auto test strip Ql (U) Negative Normal NEGATIVE [facility] Comment on above: Performed By: #### 2 4321-2 #### PATRICIA STEWART ([id number]) [facility] ([facility]) [address] [place] [address] 44721 Nitrite Auto test strip Ql (U) Negative Normal NEGATIVE [facility] Comment on above: Performed By: #### 2 4321-2 #### PATRICIA STEWART ([id number]) [facility] ([facility]) [address] [place] [address] 48769 pH (U) 7.0 [pH] Normal 5.0, 5.5, 6.0, 6.5, 7.0, 7.5, 8.0 [facility] Comment on above: Performed By: #### 2 4321-2 #### PATRICIA STEWART ([id number]) [facility] ([facility]) [address] [place] [address]184 Protein (U) [Mass/Vol] Negative Normal NEGATIVE, 10 (TRACE), 20 (TRACE) [facility] Comment on above: Performed By: #### 2 4321-2 #### PATRICIA STEWART ([id number]) [facility] ([facility]) [address] [place] [address] 79475 RBC (U) [#/Vol] Negative Normal NEGATIVE [facility] Comment on above: Performed By: #### 2 4321-2 #### PATRICIA STEWART ([id number]) [facility] ([facility]) [address] [place] [address]407 Specific gravity (U) [Rel density] 1.010 Normal 1.005-1.035 [facility] Comment on above: Performed By: #### 2 4321-2 #### PATRICIA STEWART ([id number]) [facility] ([facility]) [address] [place] [address] 44862 Urobilinogen (U) [Mass/Vol] Normal Normal Normal [facility] Comment on above: Performed By: #### 2 4321-2 #### PATRICIA STEWART ([id number]) [facility] ([facility]) [address] [place] [address] 23039 XR CHEST 1 VIEWon 01-12-2025 XR CHEST 1 VIEW Interpreted By: Isabel Bean, STUDY: XR CHEST 1 VIEW; 01/12/2025 6:50 pm INDICATION: Signs/Symptoms:sob. COMPARISON: Chest x-ray 01/07/2025 ACCESSION NUMBER(S): [id number] ORDERING CLINICIAN: BEATRIS COELLO FINDINGS: Multiple overlying leads are present. CARDIOMEDIASTINAL SILHOUETTE: Cardiomediastinal silhouette is normal in size and configuration. LUNGS: No consolidation, pleural effusion or pneumothor,ax. Stable mild elevation of the left hemidiaphragm. ABDOMEN: No remarkable upper abdominal findings. BONES: No acute osseous abnormality. IMPRESSION: No acute cardiopulmonary process. MACRO: None Signed by: Isabel Bean 01/12/2025 7:01 PM Dictation workstation: [id number] [facility] XR Chest Single viewon 01-12 No acute cardiopulmonary process. MACRO: None Signed by: Isabel Bean 01/12/2025 7:01 PM Dictation workstation: [id number] MMODAL Interpreted By: Isabel Bean, STUDY: XR CHEST 1 VIEW; 01/12/2025 6:50 pm INDICATION: Signs/Symptoms:sob. COMPARISON: Chest x-ray 01/07/2025 ACCESSION NUMBER(S): [id number] ORDERING CLINICIAN: BEATRIS COELLO FINDINGS: Multiple overlying leads are present. CARDIOMEDIASTINAL SILHOUETTE: Cardiomediastinal silhouette is normal in size and configuration. LUNGS: No consolidation, pleural effusion or pneumothor,ax. Stable mild elevation of the left hemidiaphragm. ABDOMEN: No remarkable upper abdominal findings. BONES: No acute osseous abnormality. MMODAL Isabel Bean MD - 01/12/2025 Interpreted By: Isabel Bean, STUDY: XR CHEST 1 VIEW; 01/12/2025 6:50 pm INDICATION: Signs/Symptoms:sob. COMPARISON: Chest x-ray 01/07/2025 ACCESSION NUMBER(S): [id number] ORDERING CLINICIAN: BEATRIS COELLO FINDINGS: Multiple overlying leads are present. CARDIOMEDIASTINAL SILHOUETTE: Cardiomediastinal silhouette is normal in size and configuration. LUNGS: No consolidation, pleural effusion or pneumothor,ax. Stable mild elevation of the left hemidiaphragm. ABDOMEN: No remarkable upper abdominal findings. BONES: No acute osseous abnormality. IMPRESSION: No acute cardiopulmonary process. MACRO: None Signed by: Isabel Bean 01/12/2025 7:01 PM Dictation workstation: [id number] [facility] Work Phone: Radiology Study observation (narrative) [facility] Work Phone: XR Chest Single viewOrdered By: Isabel Bean on 01-12-2025 [facility] Work Phone: Basic metabolic 2000 panelon 01-10-2025 Anion gap [Moles/Vol] 10 mmol/L 10 - 2 0 mmol/L [facility] Calcium [Mass/Vol] 8.8 mg/dL 8.6 - 10. 3 mg/dL [facility] Chloride [Moles/Vol] 100 mmol/L 98 - 10 7 mmol/L [facility] CO2 [Moles/Vol] 30 mmol/L 21 - 32 mmol/L [facility] Creatinine [Mass/Vol] 0.96 mg/dL 0.50 - 1.05 mg/dL [facility] GFR/1.73 sq M.predicted among non-blacks MDRD (S/P/Bld) [Vol rate/Area] 70 mL/min/{1.73_m2} - PINF [facility] Comment on above: Calculations of bree mated GFR are performed using the 2020 CKD-EPI Study Refit equation without the race variable for the IDMS-Traceable creatinine methods. https://jasn.asnjournals.org/content/early/ASN.985836 8075 Glucose [Mass/Vol] 90 mg/dL 74 - 99 mg/dL [facility] Interpretation and review of laboratory results Abnormal [facility] Potassium [Moles/Vol] 4.5 mmol/L 3.5 - 5.3 mmol/L [facility] Sodium [Moles/Vol] 135 mmol/L Low 136 - 145 mmol/L [facility] Urea nitrogen [Mass/Vol] 19 mg/dL 6 - 23 mg/dL [facility] Anion gap [Moles/Vol] 10 mmol/L Normal 10-20 [facility] Comment on above: Performed By: #### 1 9123-9 #### PATRICIA STEWART ([id number]) [facility] ([facility]) [facility] [place] [address] Calcium [Mass/Vol] 8.8 mg/dL Normal 8.6-10.3 [facility] Comment on above: Performed By: #### 1 9123-9 #### PATRICIA STEWART ([id number]) [facility] ([facility]) [address] [place] [address] Chloride [Moles/Vol] 100 mmol/L Normal 98-107 [facility] Comment on above: Performed By: #### 1 9123-9 #### PATRICIA STEWART ([id number]) [facility] ([facility]) [address] [place] [address] 76569 CO2 [Moles/Vol] 30 mmol/L Normal 21-32 [facility] Comment on above: Performed By: #### 1 9123-9 #### PATRICIA STEWART ([id number]) [facility] ([facility]) [address] [place] [address] 67096 Creatinine [Mass/Vol] 0.96 mg/dL Normal 0.50-1.05 [facility] Comment on above: Performed By: #### 1 9123-9 #### PATRICIA STEWART ([id number]) [facility] ([facility]) [address] [place] [address] 53618 Glomerular filtration rate/1.73 sq M.predicted 70 mL/min/1.73m*2 Normal >60 [facility] Comment on above: Result Comment: Calc ulations of estimated GFR are performed using the 2020 CKD-EPI Study Refit equation without the race variable for the IDMS-Traceable creatinine methods. https://jasn.asnjournals.org/content//ASN.363670 7382 Performed By: #### 1 9123-9 #### PATRICIA STEWART ([id number]) [facility] ([facility]) [address] [place] [address] 13936 Glucose [Mass/Vol] 90 mg/dL Normal 74-99 [facility] Comment on above: Performed By: #### 1 9123-9 #### PATRICIA STEWART ([id number]) [facility] ([facility]) [address] [place] [address] 18060 Potassium [Moles/Vol] 4.5 mmol/L Normal 3.5-5.3 [facility] Comment on above: Performed By: #### 1 9123-9 #### PATRICIA STEWART ([id number]) [facility] ([facility]) [address] [place] [address] 98851 Sodium [Moles/Vol] 135 mmol/L Low 136-145 [facility] Comment on above: Performed By: #### 1 9123-9 #### PATRICIA STEWART ([id number]) [facility] ([facility]) [address] [place] [address] Urea nitrogen [Mass/Vol] 19 mg/dL Normal 6-23 [facility] Comment on above: Performed By: #### 1 9123-9 #### PATRICIA STEWART ([id number]) [facility] ([facility]) [address] [place] [address] CBC panel Auto (Bld)on 01-10 Erythrocyte distribution width (RBC) [Ratio] 13 % 11.5 - 14.5 % [facility] Hematocrit (Bld) [Volume fraction] 38.2 % 36.0 - 46.0 % [facility] Hemoglobin (Bld) [Mass/Vol] 12.1 g/dL 12.0 - 16.0 g/dL [facility] Interpretation and review of laboratory results Abnormal [facility] MCH (RBC) [Entitic mass] 29.8 pg 26.0 - 34.0 pg [facility] MCHC (RBC) [Mass/Vol] 31.7 g/dL Low 32.0 - 36.0 g/dL [facility] MCV (RBC) [Entitic vol] 94 fL 80 - 100 fL [facility] Nucleated RBC/100 WBC (Bld) [Ratio] 0 % [facility] Platelets (Bld) [#/Vol] 147 10*3/uL Low [facility] RBC (Bld) [#/Vol] 4.06 10*6/uL [facility] WBC (Bld) [#/Vol] 5.1 10*3/uL [facility] Erythrocyte distribution width (RBC) [Ratio] 13.0 % Normal 11.5-14.5 [facility] Comment on above: Performed By: #### 1 9123-9 #### PATRICIA STEWART ([id number]) [facility] ([facility]) [address] [place] [address] Hematocrit (Bld) [Volume fraction] 38.2 % Normal 36.0-46.0 [facility] Comment on above: Performed By: #### 1 9123-9 #### PATRICIA STEWART ([id number]) [facility] ([facility]) [address] [place] [address] 12854 Hemoglobin (Bld) [Mass/Vol] 12.1 g/dL Normal 12.0-16.0 [facility] Comment on above: Performed By: #### 1 9123-9 #### PATRICIA STEWART ([id number]) [facility] ([facility]) [address] [place] [address] MCH (RBC) [Entitic mass] 29.8 pg Normal 26.0-34.0 [facility] Comment on above: Performed By: #### 1 9123-9 #### PATRICIA STEWART ([id number]) [facility] ([facility]) [address] [place] [address] 31652 MCHC (RBC) [Mass/Vol] 31.7 g/dL Low 32.0-36.0 [facility] Comment on above: Performed By: #### 1 9123-9 #### PATRICIA STEWART ([id number]) [facility] ([facility]) [address] [place] [address] 57896 MCV (RBC) [Entitic vol] 94 fL Normal 80-100 [facility] Comment on above: Performed By: #### 1 9123-9 #### PATRICIA STEWART ([id number]) [facility] ([facility]) [address] [place] [address] 47357 Nucleated RBC/100 WBC (Bld) [Ratio] 0.0 /100 WBCs Normal 0.0-0.0 [facility] Comment on above: Performed By: #### 1 9123-9 #### PATRICIA STEWART ([id number]) [facility] ([facility]) [address] [place] [address] 93584 Platelets (Bld) [#/Vol] 147 x10*3/uL Low 150-450 [facility] Comment on above: Performed By: #### 1 9123-9 #### PATRICIA KINGHARIKA ([id number]) [facility] ([facility]) [address] [place] [address] RBC (Bld) [#/Vol] 4.06 x10*6/uL Normal 4.00-5.20 [facility] Comment on above: Performed By: #### 1 9123-9 #### PATRICIA KINGHARIKA ([id number]) [facility] ([facility]) [facility] [place] [id number] WBC (Bld) [#/Vol] 5.1 x10*3/uL Normal 4.4-11.3 [facility] Comment on above: Performed By: #### 1 9123-9 #### PATRICIA KINGHARIKA ([id number]) [facility] ([facility]) [address] [place] [address] CT Neck WO contraston 2024 No clavicular or clavicular region mass. Status post total laryngectomy with fat flap reconstruction. No adenopathy in the neck. MACRO: None Signed by: Jeronimo Echols 01/10/2025 2:02 PM Dictation workstation: [id number] [facility] Interpreted By: Jeronimo Echols, STUDY: CT SOFT TISSUE NECK WO IV CONTRAST; 01/10/2025 1:14 pm INDICATION: Signs/Symptoms: eval mass, right clavicle area. COMPARISON: CT cervical spine 05/29/2024. ACCESSION NUMBER(S): [id number] ORDERING CLINICIAN: LUCRETIA MCFARLAND TECHNIQUE: Axial CT images of the neck were obtained. The images were reformatted in angled axial, coronal and sagittal planes. FINDINGS: Radiopaque marker in place on the skin over the right clavicle. There is no clavicular mass or destruction. No soft tissue mass. Patient is status post total laryngectomy with fat flap reconstruction. Tracheostomy tube is in place. There is a grommet connecting the tracheostomy to the lower cervical esophagus, similar to prior. No pathologically enlarged lymph nodes in the neck. Thyroid is not visualized. Parotid and submandibular glands are unremarkable. No mass in the visualized portions intracranial compartment. Mucosal inflammatory changes msxa-jxnqrhz-blvo-right sphenoid sinuses and minimally right maxillary sinus. [facility] Jeronimo Echols M D - 01/10/2025 Interpreted By: Jeronimo Echols, STUDY: CT SOFT TISSUE NECK WO IV CONTRAST; 01/10/2025 1:14 pm INDICATION: Signs/Symptoms: eval mass, right clavicle area. COMPARISON: CT cervical spine 05/29/2024. ACCESSION NUMBER(S): [id number] ORDERING CLINICIAN: LUCRETIA MCFARLAND TECHNIQUE: Axial CT images of the neck were obtained. The images were reformatted in angled axial, coronal and sagittal planes. FINDINGS: Radiopaque marker in place on the skin over the right clavicle. There is no clavicular mass or destruction. No soft tissue mass. Patient is status post total laryngectomy with fat flap reconstruction. Tracheostomy tube is in place. There is a grommet connecting the tracheostomy to the lower cervical esophagus, similar to prior. No pathologically enlarged lymph nodes in the neck. Thyroid is not visualized. Parotid and submandibular glands are unremarkable. No mass in the visualized portions intracranial compartment. Mucosal inflammatory changes msdl-otfgdpr-ydup-right sphenoid sinuses and minimally right maxillary sinus. IMPRESSION: No clavicular or clavicular region mass. Status post total laryngectomy with fat flap reconstruction. No adenopathy in the neck. MACRO: None Signed by: Jeronimo Echols 01/10/2025 2:02 PM Dictation workstation: [id number] [facility] Work Phone: Radiology Study observation (narrative) [facility] Work Phone: CT Neck WO contrastOrdered B y: Jeronimo Echols on 01-10-2025 [facility] Work Phone: CT SOFT TISSUE NECK WO IV CO NTRASTon 01-10-2025 CT SOFT TISSUE NECK WO IV CONTRAST Interpreted By: Jeronimo Echols, STUDY: CT SOFT TISSUE NECK WO IV CONTRAST; 01/10/2025 1:14 pm INDICATION: Signs/Symptoms: eval mass, right clavicle area. COMPARISON: CT cervical spine 05/29/2024. ACCESSION NUMBER(S): [id number] ORDERING CLINICIAN: LUCRETIA MCFARLAND TECHNIQUE: Axial CT images of the neck were obtained. The images were reformatted in angled axial, coronal and sagittal planes. FINDINGS: Radiopaque marker in place on the skin over the right clavicle. There is no clavicular mass or destruction. No soft tissue mass. Patient is status post total laryngectomy with fat flap reconstruction. Tracheostomy tube is in place. There is a grommet connecting the tracheostomy to the lower cervical esophagus, similar to prior. No pathologically enlarged lymph nodes in the neck. Thyroid is not visualized. Parotid and submandibular glands are unremarkable. No mass in the visualized portions intracranial compartment. Mucosal inflammatory changes fsjc-[id number]-tnhz-right sphenoid sinuses and minimally right maxillary sinus. IMPRESSION: No clavicular or clavicular region mass. Status post total laryngectomy with fat flap reconstruction. No adenopathy in the neck. MACRO: None Signed by: Jeronimo Echols 01/10/2025 2:02 PM Dictation workstation: [id number] [facility] Bacteria identified Cx Nom ( U)Ordered By: Tova Moralez on 01-09-2025 Interpretation and review of laboratory results Abnormal [facility] Basic metabolic 2000 panelon 01-09-2025 Anion gap [Moles/Vol] 8 mmol/L Low 10 - 2 0 mmol/L [facility] Calcium [Mass/Vol] 8.5 mg/dL Low 8.6 - 10. 3 mg/dL [facility] Chloride [Moles/Vol] 101 mmol/L 98 - 10 7 mmol/L [facility] CO2 [Moles/Vol] 30 mmol/L 21 - 32 mmol/L [facility] Creatinine [Mass/Vol] 1.02 mg/dL 0.50 - 1.05 mg/dL [facility] GFR/1.73 sq M.predicted among non-blacks MDRD (S/P/Bld) [Vol rate/Area] 66 mL/min/{1.73_m2} - PINF [facility] Comment on above: Calculations of bree mated GFR are performed using the 2020 CKD-EPI Study Refit equation without the race variable for the IDMS-Traceable creatinine methods. https://jasn.asnjournals.org/content//ASN.935714 6280 Glucose [Mass/Vol] 97 mg/dL 74 - 99 mg/dL [facility] Interpretation and review of laboratory results Abnormal [facility] Potassium [Moles/Vol] 4.3 mmol/L 3.5 - 5.3 mmol/L [facility] Sodium [Moles/Vol] 135 mmol/L Low 136 - 145 mmol/L [facility] Urea nitrogen [Mass/Vol] 19 mg/dL 6 - 23 mg/dL [facility] Anion gap [Moles/Vol] 8 mmol/L Low 10-20 [facility] Comment on above: Performed By: #### 1 9123-9 #### PATRICIA STEWART ([id number]) [facility] ([facility]) [address] [place] [address] 34371 Calcium [Mass/Vol] 8.5 mg/dL Low 8.6-10.3 [facility] Comment on above: Performed By: #### 1 9123-9 #### PATRICIA STEWART ([id number]) [facility] ([facility]) [address] [place] [address] Chloride [Moles/Vol] 101 mmol/L Normal 98-107 [facility] Comment on above: Performed By: #### 1 9123-9 #### PATRICIA STEWART ([id number]) [facility] ([facility]) [address] [place] [address] CO2 [Moles/Vol] 30 mmol/L Normal 21-32 [facility] Comment on above: Performed By: #### 1 9123-9 #### PATRICIA STEWART ([id number]) [facility] ([facility]) [address] [place] [address] Creatinine [Mass/Vol] 1.02 mg/dL Normal 0.50-1.05 [facility] Comment on above: Performed By: #### 1 9123-9 #### PATRICIA STEWART ([id number]) [facility] ([facility]) [facility] [place] [address] Glomerular filtration rate/1.73 sq M.predicted 66 mL/min/1.73m*2 Normal >60 [facility] Comment on above: Result Comment: Calc ulations of estimated GFR are performed using the 2020 CKD-EPI Study Refit equation without the race variable for the IDMS-Traceable creatinine methods. https://jasn.asnjournals.org/content/early/ASN.049022 0935 Performed By: #### 1 9123-9 #### PATRICIA STEWART ([id number]) [facility] ([facility]) [address] [place] [address] 86210 Glucose [Mass/Vol] 97 mg/dL Normal 74-99 [facility] Comment on above: Performed By: #### 1 9123-9 #### PATRICIA STEWART ([id number]) [facility] ([facility]) [address] [place] [address] 23064 Potassium [Moles/Vol] 4.3 mmol/L Normal 3.5-5.3 [facility] Comment on above: Performed By: #### 1 9123-9 #### PATRICIA STEWART ([id number]) [facility] ([facility]) [address] [place] [address] 08584 Sodium [Moles/Vol] 135 mmol/L Low 136-145 [facility] Comment on above: Performed By: #### 1 9123-9 #### PATRICIA STEWART ([id number]) [facility] ([facility]) [address] [place] [address] 68326 Urea nitrogen [Mass/Vol] 19 mg/dL Normal 6-23 [facility] Comment on above: Performed By: #### 1 9123-9 #### PATRICIA STEWART ([id number]) [facility] ([facility]) [address] [place] [address] 33313 CBC panel Auto (Bld)on 01-09 Erythrocyte distribution width (RBC) [Ratio] 13.1 % 11.5 - 14.5 % [facility] Hematocrit (Bld) [Volume fraction] 38.9 % 36.0 - 46.0 % [facility] Hemoglobin (Bld) [Mass/Vol] 12.1 g/dL 12.0 - 16.0 g/dL [facility] Interpretation and review of laboratory results Abnormal [facility] MCH (RBC) [Entitic mass] 30 pg 26.0 - 34.0 pg [facility] MCHC (RBC) [Mass/Vol] 31.1 g/dL Low 32.0 - 36.0 g/dL [facility] MCV (RBC) [Entitic vol] 96 fL 80 - 100 fL [facility] Nucleated RBC/100 WBC (Bld) [Ratio] 0 % [facility] Platelets (Bld) [#/Vol] 160 10*3/uL [facility] RBC (Bld) [#/Vol] 4.04 10*6/uL [facility] WBC (Bld) [#/Vol] 5.2 10*3/uL [facility] Erythrocyte distribution width (RBC) [Ratio] 13.1 % Normal 11.5-14.5 [facility] Comment on above: Performed By: #### 1 9123-9 #### PATRICIA STEWART ([id number]) [facility] ([facility]) [address] [place] [address] 95924 Hematocrit (Bld) [Volume fraction] 38.9 % Normal 36.0-46.0 [facility] Comment on above: Performed By: #### 1 9123-9 #### PATRICIA STEWART ([id number]) [facility] ([facility]) [address] [place] [address] 00081 Hemoglobin (Bld) [Mass/Vol] 12.1 g/dL Normal 12.0-16.0 [facility] Comment on above: Performed By: #### 1 9123-9 #### PATRICIA STEWART ([id number]) [facility] ([facility]) [address] [place] [address] 00106 MCH (RBC) [Entitic mass] 30.0 pg Normal 26.0-34.0 [facility] Comment on above: Performed By: #### 1 9123-9 #### PATRICIA STEWART ([id number]) [facility] ([facility]) [address] [place] [address] MCHC (RBC) [Mass/Vol] 31.1 g/dL Low 32.0-36.0 [facility] Comment on above: Performed By: #### 1 9123-9 #### PATRICIA STEWART ([id number]) [facility] ([facility]) [address] [place] [address] MCV (RBC) [Entitic vol] 96 fL Normal 80-100 [facility] Comment on above: Performed By: #### 1 9123-9 #### PATRICIA STEWART ([id number]) [facility] ([facility]) [address] [place], [place] [address] Nucleated RBC/100 WBC (Bld) [Ratio] 0.0 /100 WBCs Normal 0.0-0.0 [facility] Comment on above: Performed By: #### 1 9123-9 #### PATRICIA STEWART ([id number]) [facility] ([facility]) [address] [place], [place] [address] Platelets (Bld) [#/Vol] 160 x10*3/uL Normal 150-450 [facility] Comment on above: Performed By: #### 1 9123-9 #### PATRICIA STEWART ([id number]) [facility] ([facility]) [address] [place] [address] RBC (Bld) [#/Vol] 4.04 x10*6/uL Normal 4.00-5.20 [facility] Comment on above: Performed By: #### 1 9123-9 #### PATRICIA STEWART ([id number]) [facility] ([facility]) [address] [place] [address] 52888 WBC (Bld) [#/Vol] 5.2 x10*3/uL Normal 4.4-11.3 [facility] Comment on above: Performed By: #### 1 9123-9 #### PATRICIA STEWART ([id number]) [facility] ([facility]) [address] [place], [place] [phone] Urine CultureOrdered By: Best Moralez on 01-09-2025 Bacteria identified Cx Nom (U) >=100,000 CFU/mL Escherichia coli Abnormal [facility] Basic metabolic 2000 panelon 01-08-2025 Anion gap [Moles/Vol] 8 mmol/L Low 10 - 2 0 mmol/L [facility] Calcium [Mass/Vol] 8.5 mg/dL Low 8.6 - 10. 3 mg/dL [facility] Chloride [Moles/Vol] 97 mmol/L Low 98 - 10 7 mmol/L [facility] CO2 [Moles/Vol] 35 mmol/L High 21 - 32 mmol/L [facility] Creatinine [Mass/Vol] 1.2 mg/dL High 0.50 - 1.05 mg/dL [facility] GFR/1.73 sq M.predicted among non-blacks MDRD (S/P/Bld) [Vol rate/Area] 54 mL/min/{1.73_m2} Low - PINF [facility] Comment on above: Calculations of bree mated GFR are performed using the 2020 CKD-EPI Study Refit equation without the race variable for the IDMS-Traceable creatinine methods. https://jasn.asnjournals.org/content//ASN.614584 6177 Glucose [Mass/Vol] 102 mg/dL High 74 - 99 mg/dL [facility] Interpretation and review of laboratory results Abnormal [facility] Potassium [Moles/Vol] 3.4 mmol/L Low 3.5 - 5.3 mmol/L [facility] Sodium [Moles/Vol] 137 mmol/L 136 - 145 mmol/L [facility] Urea nitrogen [Mass/Vol] 14 mg/dL 6 - 23 mg/dL [facility] Anion gap [Moles/Vol] 8 mmol/L Low 10-20 [facility] Comment on above: Performed By: #### 5 7021-8 #### PATRICIA STEWART ([id number]) [facility] ([facility]) [address] [place] [address] Calcium [Mass/Vol] 8.5 mg/dL Low 8.6-10.3 [facility] Comment on above: Performed By: #### 5 7021-8 #### PATRICIA STEWART ([id number]) [facility] ([facility]) [address] [place] [address] Chloride [Moles/Vol] 97 mmol/L Low 98-107 [facility] Comment on above: Performed By: #### 5 7021-8 #### PATRICIA STEWART ([id number]) [facility] ([facility]) [facility] [place] [address] CO2 [Moles/Vol] 35 mmol/L High 21-32 [facility] Comment on above: Performed By: #### 5 7021-8 #### PATRICIA STEWART ([id number]) [facility] ([facility]) [address] [place] [address] 91037 Creatinine [Mass/Vol] 1.20 mg/dL High 0.50-1.05 [facility] Comment on above: Performed By: #### 5 7021-8 #### PATRICIA STEWART ([id number]) [facility] ([facility]) [facility] [place] [address] Glomerular filtration rate/1.73 sq M.predicted 54 mL/min/1.73m*2 Low >60 [facility] Comment on above: Result Comment: Calc ulations of estimated GFR are performed using the 2020 CKD-EPI Study Refit equation without the race variable for the IDMS-Traceable creatinine methods. https://jasn.asnjournals.org/content//ASN.185800 9225 Performed By: #### 5 7021-8 #### PATRICIA STEWART ([id number]) [facility] ([facility]) [facility] [place] [address] Glucose [Mass/Vol] 102 mg/dL High 74-99 [facility] Comment on above: Performed By: #### 5 7021-8 #### PATRICIA STEWART ([id number]) [facility] ([facility]) [facility] [place] [address] Potassium [Moles/Vol] 3.4 mmol/L Low 3.5-5.3 [facility] Comment on above: Performed By: #### 5 7021-8 #### PATRICIA STEWART ([id number]) [facility] ([facility]) [address] [place] [address] Sodium [Moles/Vol] 137 mmol/L Normal 136-145 [facility] Comment on above: Performed By: #### 5 7021-8 #### PATRICIA STEWART ([id number]) [facility] ([facility]) [address] [place] [address] Urea nitrogen [Mass/Vol] 14 mg/dL Normal 6-23 [facility] Comment on above: Performed By: #### 5 7021-8 #### PATRICIA STEWART ([id number]) [facility] ([facility]) [facility] [place] [address] ECG 12 Leadon 01-08-2025 Atrial Rate 85 BPM [facility] Work Phone: P Orange 63 degrees [facility] Work Phone: P Offset 198 [facility] Work Phone: P Onset 148 [facility] Work Phone: PA Interval 146 ms [facility] Work Phone: Q Onset 221 ms [facility] Work Phone: QRS Count 14 beats [facility] Work Phone: QRS Duration 76 ms [facility] Work Phone: QT Interval 402 ms [facility] Work Phone: QTC Calculation(Bazett) 478 [facility] Work Phone: QTC Fredericia 451 [facility] Work Phone: R Orange 22 degrees [facility] Work Phone: T Orange 42 degrees [facility] Work Phone: T Offset 422 ms [facility] Work Phone: Ventricular Rate 85 BPM [facility] Work Phone: Normal sinus rhythm Possible Left atrial enlargement Borderline ECG When compared with ECG of 07-JAN-2025 17:21, (unconfirmed) ST no longer depressed in Anterior leads See ED provider note for full interpretation and clinical correlation Confirmed by Manny Braga ([id number]) on 01/08/2025 11:48:10 AM Manny Tomlinson PA-C - 01/08/2025 Normal sinus rhythm Possible Left atrial enlargement Borderline ECG When compared with ECG of 07-JAN-2025 17:21, (unconfirmed) ST no longer depressed in Anterior leads See ED provider note for full interpretation and clinical correlation Confirmed by Manny Braga ([id number]) on 01/08/2025 11:48:10 AM [facility] Work Phone: [facility] Work Phone: ECG 12 leadOrdered By: Yolanda Braga on 01-08-2025 Atrial Rate 95 BPM [facility] Work Phone: P Orange 83 degrees [facility] Work Phone: P Offset 199 ms [facility] Work Phone: P Onset 144 ms [facility] Work Phone: PA Interval 166 ms [facility] Work Phone: Q Onset 227 ms [facility] Work Phone: QRS Count 16 beats [facility] Work Phone: QRS Duration 64 ms [facility] Work Phone: QT Interval 358 ms [facility] Work Phone: QTC Calculation(Bazett) 449 ms [facility] Work Phone: QTC Fredericia 417 ms [facility] Work Phone: R Orange 49 degrees [facility] Work Phone: T Orange 54 degrees [facility] Work Phone: T Offset 406 ms [facility] Work Phone: Ventricular Rate 95 BPM [facility] Work Phone: [facility] Work Phone: ECG 12 leadon 01-08-2025 Normal sinus rhythm Possible Left atrial enlargement Septal infarct , age undetermined Abnormal ECG When compared with ECG of 07-JAN-2025 15:57, (unconfirmed) Vent. rate has increased BY 35 BPM Septal infarct is now Present ST now depressed in Anterior leads See ED provider note for full interpretation and clinical correlation Confirmed by Manny Braga ([id number]) on 01/08/2025 12:05:10 PM Manny Tomlinson PA-C - 01/08/2025 Normal sinus rhythm Possible Left atrial enlargement Septal infarct , age undetermined Abnormal ECG When compared with ECG of 07-JAN-2025 15:57, (unconfirmed) Vent. rate has increased BY 35 BPM Septal infarct is now Present ST now depressed in Anterior leads See ED provider note for full interpretation and clinical correlation Confirmed by Manny Braga ([id number]) on 01/08/2025 12:05:10 PM [facility] Work Phone: Extra Urine Waldron Tubeon 12-21 Extra Tube Hold for add-ons. [facility] Comment on above: Auto resulted. [facility] Lavender Topon 01-08-2025 Extra Tube Hold for add-ons. [facility] Comment on above: Auto resulted. [facility] Magnesiumon 01-08-2025 Magnesium [Mass/Vol] 2.37 mg/dL 1.60 - 2.40 mg/dL [facility] Magnesium [Mass/Vol] 2.37 mg/dL Normal 1.60-2.40 [facility] Comment on above: Performed By: #### 5 7021-8 #### GOMEZ PAT ([id number]) [facility] ([facility]) [address] [place] [address] Magnesium [Mass/Vol]on 01-08 Interpretation and review of laboratory results Normal [facility] No Panel Informationon 01-08 [facility] Tropinin I.cardiac panel Hig h sensitivity methodon 01-08-2025 Interpretation and review of laboratory results Abnormal [facility] Less than 99th percentile of normal range cutoff- Female and children under 18 years old <14 ng/L; Male <21 ng/L: Negative Repeat testing should be performed if clinically indicated. Female and children under 18 years old 14-50 ng/L; Male 21-50 ng/L: Consistent with possible cardiac damage and possible increased clinical risk. Serial measurements may help to assess extent of myocardial damage. >50 ng/L: Consistent with cardiac damage, increased clinical risk and myocardial infarction. Serial measurements may help assess extent of myocardial damage. NOTE: Children less than 1 year old may have higher baseline troponin levels and results should be interpreted in conjunction with the overall clinical context. NOTE: Troponin I testing is performed using a different testing methodology at [facility] than at other [facility]. Direct result comparisons should only be made within the same method. [facility] Troponin I, High Sensitivity on 01-08-2025 Tropinin I.cardiac panel High sensitivity method 53 ng/L Critically high 0 - 13 ng/L [facility] Comment on above: Previous result veri fied on 01/07/2025 1944 on specimen/case [id number] called with component [facility] for procedure Troponin, High Sensitivity, 1 Hour with value 79 ng/L. Troponin I.cardiac panelon 0 01-08-2025 Tropinin I.cardiac panel High sensitivity method 53 ng/L Critically high 0-13 [facility] Comment on above: Order Comment: Less than 99th percentile of normal range cutoff-Female and children under 18 years old <14 ng/L; Male <21 ng/L: NegativeRepeat testing should be performed if clinically indicated.Female and children under 18 years old 14-50 ng/L; Male 21-50 ng/L:Consistent with possible cardiac damage and possible increased clinicalrisk. Serial measurements may help to assess extent of myocardial damage.>50 ng/L: Consistent with cardiac damage, increased clinical risk andmyocardial infarction. Serial measurements may help assess extent ofmyocardial damage.NOTE: Children less than 1 year old may have higher baseline troponinlevels and results should be interpreted in conjunction with the overallclinical context.NOTE: Troponin I testing is performed using a differenttesting methodology at [facility]. Direct result comparisons should onlybe made within the same method. Result Comment: Prev ious result verified on 01/07/2025 1944 on specimen/case [id number] called with component [facility] for procedure Troponin, High Sensitivity, 1 Hour with value 79 ng/L. Performed By: #### 5 7021-8 #### GOMEZ PAT ([id number]) [facility] ([facility]) [address] [place] [address] XR Ankle - right 3 Viewson 0 01-08-2025 No acute fracture. Generalized diffuse osteopenia. MACRO: None Signed by: Isabel Bean 01/08/2025 3:06 AM Dictation workstation: [id number] MMODAL Interpreted By: Isabel Bean, STUDY: XR ANKLE RIGHT 3+ VIEWS; ; 01/07/2025 9:50 pm INDICATION: Signs/Symptoms:rt ankle pain. COMPARISON: None. ACCESSION NUMBER(S): [id number] ORDERING CLINICIAN: JOSE SUERO FINDINGS: Three views of the ankle are obtained. No acute fracture or dislocation. Generalized diffuse osteopenia. The ankle mortise is preserved. Plantar and posterior calcaneal spurring noted. Soft tissues are unremarkable. MMODAL Isabel Bean MD - 01/08/2025 Interpreted By: Isabel Bean, STUDY: XR ANKLE RIGHT 3+ VIEWS; ; 01/07/2025 9:50 pm INDICATION: Signs/Symptoms:rt ankle pain. COMPARISON: None. ACCESSION NUMBER(S): [id number] ORDERING CLINICIAN: JOSE SUERO FINDINGS: Three views of the ankle are obtained. No acute fracture or dislocation. Generalized diffuse osteopenia. The ankle mortise is preserved. Plantar and posterior calcaneal spurring noted. Soft tissues are unremarkable. IMPRESSION: No acute fracture. Generalized diffuse osteopenia. MACRO: None Signed by: Isabel Baen 01/08/2025 3:06 AM Dictation workstation: [id number] [facility] Work Phone: XR Ankle - right 3 ViewsOrde red By: Isabel Bean on 01-08-2025 [facility] Work Phone: Bacteria identifiedon 2024 Bacteria identified Cx Nom (U) Test: Urine Culture Specimen Source: Clean Catch/Voided Specimen Type: Urine Specimen Date: 01/07/20251814 Result Date: 01/09/20251601 Result Status: Final result Abnormal: Yes Resulting Lab: [facility] [id number] [place] [address] CULTURE >=100,000 CFU/mL Escherichia coli (Abnormal) SUSCEPTIBILITY Escherichia coli METHOD MICROSCAN --- AMPICILLIN <=8.000 ug/ml Susceptible CEFAZOLIN <=2 ug/ml Susceptible CEFAZOLIN (UNCOMPLICATED UTIS ONLY) <=2 ug/ml Susceptible CIPROFLOXACIN <=0.250 ug/ml Susceptible GENTAMICIN <=2.000 ug/ml Susceptible NITROFURANTOIN <=32 ug/ml Susceptible PIPERACILLIN/TAZOBACTAM <=8.000 ug/ml Susceptible TRIMETHOPRIM/SULFAMETHO XAZOLE <=2/38 ug/ml Susceptible Abnormal [facility] Comment on above: Performed By: #### 5 7021-8 #### GOMEZ PAT ([id number]) [facility] ([facility]) [address] [place] [address] Basic metabolic 2000 panelon 01-07-2025 Anion gap [Moles/Vol] 11 mmol/L 10 - 2 0 mmol/L [facility] Calcium [Mass/Vol] 8.1 mg/dL Low 8.6 - 10. 3 mg/dL [facility] Chloride [Moles/Vol] 95 mmol/L Low 98 - 10 7 mmol/L [facility] CO2 [Moles/Vol] 33 mmol/L High 21 - 32 mmol/L [facility] Creatinine [Mass/Vol] 1.11 mg/dL High 0.50 - 1.05 mg/dL [facility] GFR/1.73 sq M.predicted among non-blacks MDRD (S/P/Bld) [Vol rate/Area] 59 mL/min/{1.73_m2} Low - PINF [facility] Comment on above: Calculations of bree mated GFR are performed using the 2020 CKD-EPI Study Refit equation without the race variable for the IDMS-Traceable creatinine methods. https://jasn.asnjournals.org/content//ASN.403849 2377 Glucose [Mass/Vol] 101 mg/dL High 74 - 99 mg/dL [facility] Potassium [Moles/Vol] 3.7 mmol/L 3.5 - 5.3 mmol/L [facility] Sodium [Moles/Vol] 135 mmol/L Low 136 - 145 mmol/L [facility] Urea nitrogen [Mass/Vol] 13 mg/dL 6 - 23 mg/dL [facility] Anion gap [Moles/Vol] 11 mmol/L Normal 10-20 [facility] Comment on above: Performed By: #### 2 4321-2 #### PATRICIA STEWART ([id number]) [facility] ([facility]) [address] [place] [address] Calcium [Mass/Vol] 8.1 mg/dL Low 8.6-10.3 [facility] Comment on above: Performed By: #### 2 4321-2 #### PATRICIA STEWART ([id number]) [facility] ([facility]) [facility] [place] [address] Chloride [Moles/Vol] 95 mmol/L Low 98-107 [facility] Comment on above: Performed By: #### 2 4321-2 #### PATRICIA STEWART ([id number]) [facility] ([facility]) [address] [place] [address] CO2 [Moles/Vol] 33 mmol/L High 21-32 [facility] Comment on above: Performed By: #### 2 4321-2 #### PATRICIA STEWART ([id number]) [facility] ([facility]) [address] [place] [address] Creatinine [Mass/Vol] 1.11 mg/dL High 0.50-1.05 [facility] Comment on above: Performed By: #### 2 432-2 #### PATRICIA STEWART ([id number]) [facility] ([facility]) [address] [place] [address] 98131 Glomerular filtration rate/1.73 sq M.predicted 59 mL/min/1.73m*2 Low >60 [facility] Comment on above: Result Comment: Calc ulations of estimated GFR are performed using the 2020 CKD-EPI Study Refit equation without the race variable for the IDMS-Traceable creatinine methods. https://jasn.asnjournals.org/content/early//ASN.031124 3920 Performed By: #### 2 4321-2 #### PATRICIA STEWART ([id number]) [facility] ([facility]) [address] [place] [address] Glucose [Mass/Vol] 101 mg/dL High 74-99 [facility] Comment on above: Performed By: #### 2 4321-2 #### PATRICIA STEWART ([id number]) [facility] ([facility]) [address] [place] [address] Potassium [Moles/Vol] 3.7 mmol/L Normal 3.5-5.3 [facility] Comment on above: Performed By: #### 2 4321-2 #### PATRICIA STEWART ([id number]) [facility] ([facility]) [address] [place] [address] Sodium [Moles/Vol] 135 mmol/L Low 136-145 [facility] Comment on above: Performed By: #### 2 4321-2 #### PATRICIA STEWART ([id number]) [facility] ([facility]) [address] [place] [address] Urea nitrogen [Mass/Vol] 13 mg/dL Normal 6-23 [facility] Comment on above: Performed By: #### 2 4321-2 #### PATRICIA STEWART ([id number]) [facility] ([facility]) [facility] [place] [id number] CBC W Auto Differential pane l (Bld)on 01-07-2025 Basophils (Bld) [#/Vol] 0.06 10*3/uL [facility] Basophils/100 WBC (Bld) 1.1 % 0.0 - 2.0 % [facility] Eosinophils (Bld) [#/Vol] 0.19 10*3/uL [facility] Eosinophils/100 WBC (Bld) 3.4 % 0.0 - 6.0 % [facility] Erythrocyte distribution width (RBC) [Ratio] 13 % 11.5 - 14.5 % [facility] Hematocrit (Bld) [Volume fraction] 43.6 % 36.0 - 46.0 % [facility] Hemoglobin (Bld) [Mass/Vol] 14 g/dL 12.0 - 16.0 g/dL [facility] Immature granulocytes (Bld) [#/Vol] 0.02 10*3/uL [facility] Immature granulocytes/100 WBC (Bld) 0.4 % 0.0 - 0.9 % [facility] Comment on above: Immature Granulocyte Count (IG) includes promyelocytes, myelocytes and metamyelocytes but does not include bands. Percent differential counts (%) should be interpreted in the context of the absolute cell counts (cells/UL). Interpretation and review of laboratory results Abnormal [facility] Lymphocytes (Bld) [#/Vol] 0.86 10*3/uL Low [facility] Lymphocytes/100 WBC (Bld) 15.4 % 13.0 - 44.0 % [facility] MCH (RBC) [Entitic mass] 29.5 pg 26.0 - 34.0 pg [facility] MCHC (RBC) [Mass/Vol] 32.1 g/dL 32.0 - 36.0 g/dL [facility] MCV (RBC) [Entitic vol] 92 fL 80 - 100 fL [facility] Monocytes (Bld) [#/Vol] 0.52 10*3/uL [facility] Monocytes/100 WBC (Bld) 9.3 % 2.0 - 10.0 % [facility] Neutrophils (Bld) [#/Vol] 3.92 10*3/uL [facility] Comment on above: Percent differential counts (%) should be interpreted in the context of the absolute cell counts (cells/uL). Neutrophils/100 WBC (Bld) 70.4 % 40.0 - 80.0 % [facility] Nucleated RBC/100 WBC (Bld) [Ratio] 0 % [facility] Platelets (Bld) [#/Vol] 153 10*3/uL [facility] RBC (Bld) [#/Vol] 4.75 10*6/uL [facility] WBC (Bld) [#/Vol] 5.6 10*3/uL [facility] Basophils (Bld) [#/Vol] 0.06 x10*3/uL Normal 0.00-0.10 [facility] Comment on above: Performed By: #### 5 7021-8 #### PATRICIA STEWART ([id number]) [facility] ([facility]) [address] [place] [address] 66336 Basophils/100 WBC (Bld) 1.1 % Normal 0.0-2.0 [facility] Comment on above: Performed By: #### 5 7021-8 #### PATRICIA STEWART ([id number]) [facility] ([facility]) [address] [place] [address] 08253 Eosinophils (Bld) [#/Vol] 0.19 x10*3/uL Normal 0.00-0.70 [facility] Comment on above: Performed By: #### 5 7021-8 #### PATRICIA STEWART ([id number]) [facility] ([facility]) [address] [place] [address] 04648 Eosinophils/100 WBC (Bld) 3.4 % Normal 0.0-6.0 [facility] Comment on above: Performed By: #### 5 7021-8 #### PATRICIA STEWART ([id number]) [facility] ([facility]) [address] [place] [address] 40114 Erythrocyte distribution width (RBC) [Ratio] 13.0 % Normal 11.5-14.5 [facility] Comment on above: Performed By: #### 5 7021-8 #### PATRICIA STEWART ([id number]) [facility] ([facility]) [address] [place] [address] 38492 Hematocrit (Bld) [Volume fraction] 43.6 % Normal 36.0-46.0 [facility] Comment on above: Performed By: #### 5 7021-8 #### PATRICIA STEWART ([id number]) [facility] ([facility]) [address] [place] [address] 00008 Hemoglobin (Bld) [Mass/Vol] 14.0 g/dL Normal 12.0-16.0 [facility] Comment on above: Performed By: #### 5 7021-8 #### PATRICIA STEWART ([id number]) [facility] ([facility]) [address] [place] [address] 00205 Immature granulocytes (Bld) [#/Vol] 0.02 x10*3/uL Normal 0.00-0.70 [facility] Comment on above: Performed By: #### 5 7021-8 #### PATRICIA STEWART ([id number]) [facility] ([facility]) [address] [place] [address] 47946 Immature granulocytes/100 WBC (Bld) 0.4 % Normal 0.0-0.9 [facility] Comment on above: Result Comment: Mary ture Granulocyte Count (IG) includes promyelocytes, myelocytes and metamyelocytes but does not include bands. Percent differential counts (%) should be interpreted in the context of the absolute cell counts (cells/UL). Performed By: #### 5 7021-8 #### PATRICIA STEWART ([id number]) [facility] ([facility]) [address] [place] [address] Lymphocytes (Bld) [#/Vol] 0.86 x10*3/uL Low 1.20-4.80 [facility] Comment on above: Performed By: #### 5 7021-8 #### PATRICIA STEWART ([id number]) [facility] ([facility]) [address] [place] [address] Lymphocytes/100 WBC (Bld) 15.4 % Normal 13.0-44.0 [facility] Comment on above: Performed By: #### 5 7021-8 #### PATRICIA STEWART ([id number]) [facility] ([facility]) [address] [place] [address] MCH (RBC) [Entitic mass] 29.5 pg Normal 26.0-34.0 [facility] Comment on above: Performed By: #### 5 7021-8 #### PATRICIA STEWART ([id number]) [facility] ([facility]) [address] [place] [address] 39391 MCHC (RBC) [Mass/Vol] 32.1 g/dL Normal 32.0-36.0 [facility] Comment on above: Performed By: #### 5 7021-8 #### PATRICIA STEWART ([id number]) [facility] ([facility]) [address] [place], [place] [phone] MCV (RBC) [Entitic vol] 92 fL Normal 80-100 [facility] Comment on above: Performed By: #### 5 7021-8 #### PATRICIA STEWART ([id number]) [facility] ([facility]) [address] [place] [address] 14244 Monocytes (Bld) [#/Vol] 0.52 x10*3/uL Normal 0.10-1.00 [facility] Comment on above: Performed By: #### 5 7021-8 #### PATRICIA STEWART ([id number]) [facility] ([facility]) [address] [place] [address] 81773 Monocytes/100 WBC (Bld) 9.3 % Normal 2.0-10.0 [facility] Comment on above: Performed By: #### 5 7021-8 #### PATRICIA STEWART ([id number]) [facility] ([facility]) [address] [place] [address] 02141 Neutrophils (Bld) [#/Vol] 3.92 x10*3/uL Normal 1.20-7.70 [facility] Comment on above: Result Comment: Perc ent differential counts (%) should be interpreted in the context of the absolute cell counts (cells/uL). Performed By: #### 5 7021-8 #### PATRICIA STEWART ([id number]) [facility] ([facility]) [address] [place] [address] 45599 Neutrophils/100 WBC (Bld) 70.4 % Normal 40.0-80.0 [facility] Comment on above: Performed By: #### 5 7021-8 #### PATRICIA STEWART ([id number]) [facility] ([facility]) [address] [place] [address] 09907 Nucleated RBC/100 WBC (Bld) [Ratio] 0.0 /100 WBCs Normal 0.0-0.0 [facility] Comment on above: Performed By: #### 5 7021-8 #### PATRICIA STEWART ([id number]) [facility] ([facility]) [address] [place] [address] 17107 Platelets (Bld) [#/Vol] 153 x10*3/uL Normal 150-450 [facility] Comment on above: Performed By: #### 5 7021-8 #### PATRICIA STEWART ([id number]) [facility] ([facility]) [address] [place] [address] 21010 RBC (Bld) [#/Vol] 4.75 x10*6/uL Normal 4.00-5.20 [facility] Comment on above: Performed By: #### 5 7021-8 #### GOMEZ PAT ([id number]) [facility] ([facility]) [address] [place] [address] WBC (Bld) [#/Vol] 5.6 x10*3/uL Normal 4.4-11.3 [facility] Comment on above: Performed By: #### 5 7021-8 #### GOMEZ PAT ([id number]) [facility] ([facility]) [address] [place] [phone] [address] HEAD WO IV CONTRASTon CT HEAD WO IV CONTRAST Interpreted By: John Pastrana, STUDY: CT HEAD WO IV CONTRAST; 01/07/2025 6:27 pm INDICATION: Signs/Symptoms:altered loc. COMPARISON: 05/29/2024 ACCESSION NUMBER(S): [id number] ORDERING CLINICIAN: ELIAZAR NOLAN TECHNIQUE: Noncontrast axial CT images of head were obtained with coronal and sagittal reconstructed images. FINDINGS: BRAIN PARENCHYMA: Moderate periventricular and subcortical hemispheric white matter hypodensities are most compatible with chronic small vessel ischemic disease. No acute intraparenchymal hemorrhage or parenchymal evidence of acute large territory ischemic infarct. Waldron-white matter distinction is preserved. No mass-effect. VENTRICLES and EXTRA-AXIAL SPACES: No acute extra-axial or intraventricular hemorrhage. No effacement of cerebral sulci. The ventricles and sulci are age-concordant. PARANASAL SINUSES/MASTOIDS: There is near complete opacification of the left sphenoid sinus due to mucosal thickening and secretions which is new from prior study. There is also new frothy secretions in the right sphenoid sinus. Mild mucosal thickening in the right maxillary sinus. The mastoids are well aerated. CALVARIUM/ORBITS: No skull fracture. The orbits and globes are intact to the extent visualized. EXTRACRANIAL SOFT TISSUES: No discernible abnormality. IMPRESSION: No acute intracranial abnormality. New bilateral sphenoid sinusitis (left > right). Moderate burden of supratentorial chronic small vessel ischemic disease. MACRO: None. Signed by: John Pastrana 01/07/2025 6:32 PM Dictation workstation: [id number] [facility] CT Head WO contraston 2024 No acute intracrania l abnormality. New bilateral sphenoid sinusitis (left > right). Moderate burden of supratentorial chronic small vessel ischemic disease. MACRO: None. Signed by: John Pastrana 01/07/2025 6:32 PM Dictation workstation: [id number] [facility] Interpreted By: John Pastrana, STUDY: CT HEAD WO IV CONTRAST; 01/07/2025 6:27 pm INDICATION: Signs/Symptoms:altered loc. COMPARISON: 05/29/2024 ACCESSION NUMBER(S): [id number] ORDERING CLINICIAN: ELIAZAR NOLAN TECHNIQUE: Noncontrast axial CT images of head were obtained with coronal and sagittal reconstructed images. FINDINGS: BRAIN PARENCHYMA: Moderate periventricular and subcortical hemispheric white matter hypodensities are most compatible with chronic small vessel ischemic disease. No acute intraparenchymal hemorrhage or parenchymal evidence of acute large territory ischemic infarct. Waldron-white matter distinction is preserved. No mass-effect. VENTRICLES and EXTRA-AXIAL SPACES: No acute extra-axial or intraventricular hemorrhage. No effacement of cerebral sulci. The ventricles and sulci are age-concordant. PARANASAL SINUSES/MASTOIDS: There is near complete opacification of the left sphenoid sinus due to mucosal thickening and secretions which is new from prior study. There is also new frothy secretions in the right sphenoid sinus. Mild mucosal thickening in the right maxillary sinus. The mastoids are well aerated. CALVARIUM/ORBITS: No skull fracture. The orbits and globes are intact to the extent visualized. EXTRACRANIAL SOFT TISSUES: No discernible abnormality. [facility] Pastrana MD - 01/07/2025 Interpreted By: John Pastrana, STUDY: CT HEAD WO IV CONTRAST; 01/07/2025 6:27 pm INDICATION: Signs/Symptoms:altered loc. COMPARISON: 05/29/2024 ACCESSION NUMBER(S): [id number] ORDERING CLINICIAN: ELIAZAR NOLAN TECHNIQUE: Noncontrast axial CT images of head were obtained with coronal and sagittal reconstructed images. FINDINGS: BRAIN PARENCHYMA: Moderate periventricular and subcortical hemispheric white matter hypodensities are most compatible with chronic small vessel ischemic disease. No acute intraparenchymal hemorrhage or parenchymal evidence of acute large territory ischemic infarct. Waldron-white matter distinction is preserved. No mass-effect. VENTRICLES and EXTRA-AXIAL SPACES: No acute extra-axial or intraventricular hemorrhage. No effacement of cerebral sulci. The ventricles and sulci are age-concordant. PARANASAL SINUSES/MASTOIDS: There is near complete opacification of the left sphenoid sinus due to mucosal thickening and secretions which is new from prior study. There is also new frothy secretions in the right sphenoid sinus. Mild mucosal thickening in the right maxillary sinus. The mastoids are well aerated. CALVARIUM/ORBITS: No skull fracture. The orbits and globes are intact to the extent visualized. EXTRACRANIAL SOFT TISSUES: No discernible abnormality. IMPRESSION: No acute intracranial abnormality. New bilateral sphenoid sinusitis (left > right). Moderate burden of supratentorial chronic small vessel ischemic disease. MACRO: None. Signed by: John Pastrana 01/07/2025 6:32 PM Dictation workstation: [id number] [facility] Work Phone: Radiology Study observation (narrative) [facility] Work Phone: CT Head WO contrastOrdered B y: John Pastrana on 01-07-2025 [facility] Work Phone: DRUG SCREEN,URINEon 01-07-20 25 Amphetamines Screen Ql (U) Negative Normal Presumptive Negative [facility] Comment on above: Order Comment: Drug screen results are presumptive and should not be used to assesscompliance with prescribed medication. Contact the performing [facility] laboratoryto add-on definitive confirmatory testing if clinically indicated.Toxicology screening results are reported qualitatively. The concentration must???be greater than or equal to the cutoff to be reported as positive. The concentrationat which the screening test can detect an individual drug or metabolite varies.The absence of expected drug(s) and/or drug metabolite(s) may indicate non-compliance,inappropriate timing of specimen collection relative to drug administration, poor drugabsorption, diluted/adulterated urine, or limitations of testing. For medical purposesonly; not valid for forensic use.Interpretive questions should be directed to the laboratory medical directors. Result Comment: CUTO FF LEVEL: 500 NG/ML Cross-reactivity has been reported with high concentrations of the following drugs: buproprion, chloroquine, chlorpromazine, ephedrine, mephentermine, fenfluramine, phentermine, phenylpropanolamine, pseudoephedrine, and propranolol. Performed By: #### 5 7021-8 #### PATRICIA STEWART ([id number]) [facility] ([facility]) [facility] [place] [address] Barbiturates Screen Ql (U) Negative Normal Presumptive Negative [facility] Comment on above: Order Comment: Drug screen results are presumptive and should not be used to assesscompliance with prescribed medication. Contact the performing [facility] laboratoryto add-on definitive confirmatory testing if clinically indicated.Toxicology screening results are reported qualitatively. The concentration must???be greater than or equal to the cutoff to be reported as positive. The concentrationat which the screening test can detect an individual drug or metabolite varies.The absence of expected drug(s) and/or drug metabolite(s) may indicate non-compliance,inappropriate timing of specimen collection relative to drug administration, poor drugabsorption, diluted/adulterated urine, or limitations of testing. For medical purposesonly; not valid for forensic use.Interpretive questions should be directed to the laboratory medical directors. Result Comment: CUTO FF LEVEL: 200 NG/ML Performed By: #### 5 7021-8 #### PATRICIA STEWART ([id number]) [facility] ([facility]) [address] [place] [address] Benzodiazepines Ql (U) Negative Normal Presumptive Negative [facility] Comment on above: Order Comment: Drug screen results are presumptive and should not be used to assesscompliance with prescribed medication. Contact the performing [facility] laboratoryto add-on definitive confirmatory testing if clinically indicated.Toxicology screening results are reported qualitatively. The concentration must???be greater than or equal to the cutoff to be reported as positive. The concentrationat which the screening test can detect an individual drug or metabolite varies.The absence of expected drug(s) and/or drug metabolite(s) may indicate non-compliance,inappropriate timing of specimen collection relative to drug administration, poor drugabsorption, diluted/adulterated urine, or limitations of testing. For medical purposesonly; not valid for forensic use.Interpretive questions should be directed to the laboratory medical directors. Result Comment: CUTO FF LEVEL: 200 NG/ML Performed By: #### 5 7021-8 #### PATRICIA STEWART ([id number]) [facility] ([facility]) [address] [place] [address] Benzoylecgonine Screen Ql (U) Negative Normal Presumptive Negative [facility] Comment on above: Order Comment: Drug screen results are presumptive and should not be used to assesscompliance with prescribed medication. Contact the performing [facility] laboratoryto add-on definitive confirmatory testing if clinically indicated.Toxicology screening results are reported qualitatively. The concentration must???be greater than or equal to the cutoff to be reported as positive. The concentrationat which the screening test can detect an individual drug or metabolite varies.The absence of expected drug(s) and/or drug metabolite(s) may indicate non-compliance,inappropriate timing of specimen collection relative to drug administration, poor drugabsorption, diluted/adulterated urine, or limitations of testing. For medical purposesonly; not valid for forensic use.Interpretive questions should be directed to the laboratory medical directors. Result Comment: CUTO FF LEVEL: 150 NG/ML Performed By: #### 5 7021-8 #### PATRICIA STEWART ([id number]) [facility] ([facility]) [address] [place] [address] Cannabinoids Screen Ql (U) Negative Normal Presumptive Negative [facility] Comment on above: Order Comment: Drug screen results are presumptive and should not be used to assesscompliance with prescribed medication. Contact the performing [facility] laboratoryto add-on definitive confirmatory testing if clinically indicated.Toxicology screening results are reported qualitatively. The concentration must???be greater than or equal to the cutoff to be reported as positive. The concentrationat which the screening test can detect an individual drug or metabolite varies.The absence of expected drug(s) and/or drug metabolite(s) may indicate non-compliance,inappropriate timing of specimen collection relative to drug administration, poor drugabsorption, diluted/adulterated urine, or limitations of testing. For medical purposesonly; not valid for forensic use.Interpretive questions should be directed to the laboratory medical directors. Result Comment: CUTO FF LEVEL: 50 NG/ML Performed By: #### 5 7021-8 #### PATRICIA STEWART ([id number]) [facility] ([facility]) [address] [place] [address] fentaNYL+Norfentanyl Screen Ql (U) Negative Normal Presumptive Negative [facility] Comment on above: Order Comment: Drug screen results are presumptive and should not be used to assesscompliance with prescribed medication. Contact the performing [facility] laboratoryto add-on definitive confirmatory testing if clinically indicated.Toxicology screening results are reported qualitatively. The concentration must???be greater than or equal to the cutoff to be reported as positive. The concentrationat which the screening test can detect an individual drug or metabolite varies.The absence of expected drug(s) and/or drug metabolite(s) may indicate non-compliance,inappropriate timing of specimen collection relative to drug administration, poor drugabsorption, diluted/adulterated urine, or limitations of testing. For medical purposesonly; not valid for forensic use.Interpretive questions should be directed to the laboratory medical directors. Result Comment: CUTO FF LEVEL: 5 NG/ML Performed By: #### 5 7021-8 #### PATRICIA STEWART ([id number]) [facility] ([facility]) [address] [place] [address] Methadone Screen Ql (U) Negative Normal Presumptive Negative [facility] Comment on above: Order Comment: Drug screen results are presumptive and should not be used to assesscompliance with prescribed medication. Contact the performing [facility] laboratoryto add-on definitive confirmatory testing if clinically indicated.Toxicology screening results are reported qualitatively. The concentration must???be greater than or equal to the cutoff to be reported as positive. The concentrationat which the screening test can detect an individual drug or metabolite varies.The absence of expected drug(s) and/or drug metabolite(s) may indicate non-compliance,inappropriate timing of specimen collection relative to drug administration, poor drugabsorption, diluted/adulterated urine, or limitations of testing. For medical purposesonly; not valid for forensic use.Interpretive questions should be directed to the laboratory medical directors. Result Comment: CUTO FF LEVEL: 150 NG/ML The metabolite F-zbamr-iefizqeetjetas (LAAM) is not detected by this method in concentrations that would be found in the urine of patients on LAAM therapy. Performed By: #### 5 7021-8 #### PATRICIA STEWART ([id number]) [facility] ([facility]) [address] [place] [address] Opiates Screen Ql (U) Negative Normal Presum ptive Negative [facility] Comment on above: Order Comment: Drug screen results are presumptive and should not be used to assesscompliance with prescribed medication. Contact the performing [facility] laboratoryto add-on definitive confirmatory testing if clinically indicated.Toxicology screening results are reported qualitatively. The concentration must???be greater than or equal to the cutoff to be reported as positive. The concentrationat which the screening test can detect an individual drug or metabolite varies.The absence of expected drug(s) and/or drug metabolite(s) may indicate non-compliance,inappropriate timing of specimen collection relative to drug administration, poor drugabsorption, diluted/adulterated urine, or limitations of testing. For medical purposesonly; not valid for forensic use.Interpretive questions should be directed to the laboratory medical directors. Result Comment: CUTO FF LEVEL: 300 NG/ML The opiate screen does not detect fentanyl, meperidine, or tramadol. Oxycodone is not consistently detected (refer to Oxycodone Screen, Urine result). Performed By: #### 5 7021-8 #### GOMEZ PAT ([id number]) [facility] ([facility]) [facility] [place] [address] oxyCODONE+oxyMORphone Screen Ql (U) Negative Normal Presumptive Negative [facility] Comment on above: Order Comment: Drug screen results are presumptive and should not be used to assesscompliance with prescribed medication. Contact the performing [facility] laboratoryto add-on definitive confirmatory testing if clinically indicated.Toxicology screening results are reported qualitatively. The concentration must???be greater than or equal to the cutoff to be reported as positive. The concentrationat which the screening test can detect an individual drug or metabolite varies.The absence of expected drug(s) and/or drug metabolite(s) may indicate non-compliance,inappropriate timing of specimen collection relative to drug administration, poor drugabsorption, diluted/adulterated urine, or limitations of testing. For medical purposesonly; not valid for forensic use.Interpretive questions should be directed to the laboratory medical directors. Result Comment: CUTO FF LEVEL: 100 NG/ML This test will accurately detect both oxycodone and oxymorphone. Performed By: #### 5 7021-8 #### PATRICIA STEWART ([id number]) [facility] ([facility]) [facility] [place] [address] Phencyclidine Ql (U) Negative Normal Presump tive Negative [facility] Comment on above: Order Comment: Drug screen results are presumptive and should not be used to assesscompliance with prescribed medication. Contact the performing [facility] laboratoryto add-on definitive confirmatory testing if clinically indicated.Toxicology screening results are reported qualitatively. The concentration must???be greater than or equal to the cutoff to be reported as positive. The concentrationat which the screening test can detect an individual drug or metabolite varies.The absence of expected drug(s) and/or drug metabolite(s) may indicate non-compliance,inappropriate timing of specimen collection relative to drug administration, poor drugabsorption, diluted/adulterated urine, or limitations of testing. For medical purposesonly; not valid for forensic use.Interpretive questions should be directed to the laboratory medical directors. Result Comment: CUTO FF LEVEL: 25 NG/ML Cross-reactivity has been reported with dextromethorphan. Performed By: #### 5 7021-8 #### PATRICIA STEWART ([id number]) [facility] ([facility]) [facility] [place] [id number] Drug Screen, Urineon 025 Amphetamines Screen Ql (U) Negative Presumptive Negative [facility] Comment on above: CUTOFF LEVEL: 500 NG /ML Cross-reactivity has been reported with high concentrations of the following drugs: buproprion, chloroquine, chlorpromazine, ephedrine, mephentermine, fenfluramine, phentermine, phenylpropanolamine, pseudoephedrine, and propranolol. Barbiturates Screen Ql (U) Negative Presumptive Negative [facility] Comment on above: CUTOFF LEVEL: 200 NG /ML Benzodiazepines Ql (U) Negative Presumptive Negative [facility] Comment on above: CUTOFF LEVEL: 200 NG /ML Benzoylecgonine Screen Ql (U) Negative Presumptive Negative [facility] Comment on above: CUTOFF LEVEL: 150 NG /ML Cannabinoids Screen Ql (U) Negative Presumptive Negative [facility] Comment on above: CUTOFF LEVEL: 50 NG/ ML fentaNYL+Norfentanyl Screen Ql (U) Negative Presumptive Negative [facility] Comment on above: CUTOFF LEVEL: 5 NG/M L Interpretation and review of laboratory results Normal [facility] Methadone Screen Ql (U) Negative Presumptive Negative [facility] Comment on above: CUTOFF LEVEL: 150 NG /ML The metabolite N-lxyqn-hcwwqwxyebdcjv (LAAM) is not detected by this method in concentrations that would be found in the urine of patients on LAAM therapy. Opiates Screen Ql (U) Negative Presum ptive Negative [facility] Comment on above: CUTOFF LEVEL: 300 NG /ML The opiate screen does not detect fentanyl, meperidine, or tramadol. Oxycodone is not consistently detected (refer to Oxycodone Screen, Urine result). oxyCODONE+oxyMORphone Screen Ql (U) Negative Presumptive Negative [facility] Comment on above: CUTOFF LEVEL: 100 NG /ML This test will accurately detect both oxycodone and oxymorphone. Phencyclidine Ql (U) Negative Presump tive Negative [facility] Comment on above: CUTOFF LEVEL: 25 NG/ ML Cross-reactivity has been reported with dextromethorphan. Drug screen results are presumptive and should not be used to assess compliance with prescribed medication. Contact the performing [facility] laboratory to add-on definitive confirmatory testing if clinically indicated. Toxicology screening results are reported qualitatively. The concentration must be greater than or equal to the cutoff to be reported as positive. The concentration at which the screening test can detect an individual drug or metabolite varies. The absence of expected drug(s) and/or drug metabolite(s) may indicate non-compliance, inappropriate timing of specimen collection relative to drug administration, poor drug absorption, diluted/adulterated urine, or limitations of testing. For medical purposes only; not valid for forensic use. Interpretive questions should be directed to the laboratory medical directors. [facility] ECG 12-LEADon 01-07-2025 ECG 12-LEAD Ventricular Rate 85 Atrial Rate 85 P-R Interval 146 QRS Duration 76 Q-T Interval 402 QTC Calculation(Bazett) 478 P Orange 63 R Orange 22 T Orange 42 QRS Count 14 Q Onset 221 P Onset 148 P Offset 198 T Offset 422 QTC Fredericia 451 Diagnosis Normal sinus rhythm Possible Left atrial enlargement Borderline ECG When compared with ECG of 07-JAN-2025 17:21, (unconfirmed) ST no longer depressed in Anterior leads See ED provider note for full interpretation and clinical correlation Confirmed by Manny Braga ([id number]) on 01/08/2025 11:48:10 AM Normal [facility] ECG 12-LEAD Ventricular Rate 95 Atrial Rate 95 P-R Interval 166 QRS Duration 64 Q-T Interval 358 QTC Calculation(Bazett) 449 P Orange 83 R Orange 49 T Orange 54 QRS Count 16 Q Onset 227 P Onset 144 P Offset 199 T Offset 406 QTC Fredericia 417 Diagnosis Normal sinus rhythm Possible Left atrial enlargement Septal infarct , age undetermined Abnormal ECG When compared with ECG of 07-JAN-2025 15:57, (unconfirmed) Vent. rate has increased BY 35 BPM Septal infarct is now Present ST now depressed in Anterior leads See ED provider note for full interpretation and clinical correlation Confirmed by Manny Braga ([id number]) on 01/08/2025 12:05:10 PM Normal [facility] Ethanolon 01-07-2025 Ethanol [Mass/Vol] mg/dL NINF - 10 mg/dL [facility] Comment on above: For medical use only . Ethanol [Mass/Vol] mg/dL Normal <=10 [facility] Comment on above: Result Comment: For medical use only. Performed By: #### 5 7021-8 #### GOMEZ PAT ([id number]) [facility] ([facility]) [address] [place] [address] Ethanol [Mass/Vol]on 025 Interpretation and review of laboratory results Normal [facility] FLUAV and FLUBV RNA CRISTHIAN+prob e Nom (Unsp spec)on 01-07-2025 FLUAV RNA CRISTHIAN+probe Ql (Resp) Not detected Not Detected [facility] FLUBV RNA CRISTHIAN+probe Ql (Resp) Not detected Not Detected [facility] This assay is an in vitro diagnostic multiplex nucleic acid amplification test for the detection and discrimination of Influenza A & B from nasopharyngeal specimens, and has been validated for use at [facility]. Negative results do not preclude Influenza A/B infections, and should not be used as the sole basis for diagnosis, treatment, or other management decisions. If Influenza A/B and RSV PCR results are negative, testing for Parainfluenza virus, Adenovirus and Metapneumovirus is routinely performed for [facility] [place] and intensive care inpatients, and is available on other patients by placing an add-on request. [facility] FLUAV RNA CRISTHIAN+probe Ql (Resp) Not detected Normal Not Detected [facility] Comment on above: Order Comment: This assay is an in vitro diagnostic multiplex nucleic acid amplification test for the detection and discrimination of Influenza A & B from nasopharyngeal specimens, and has been validated for use at [facility]. Negative results do not preclude Influenza A/B infections, and should not be used as the sole basis for diagnosis, treatment, or other management decisions. If Influenza A/B and RSV PCR results are negative, testing for Parainfluenza virus, Adenovirus and Metapneumovirus is routinely performed for [facility] [place]ology and intensive care inpatients, and is available on other patients by placing an add-on request. Performed By: #### 4 8509-4 #### PATRICIA STEWART ([id number]) [facility] ([facility]) [address] [place] [address] FLUBV RNA CRISTHIAN+probe Ql (Resp) Not detected Normal Not Detected [facility] Comment on above: Order Comment: This assay is an in vitro diagnostic multiplex nucleic acid amplification test for the detection and discrimination of Influenza A & B from nasopharyngeal specimens, and has been validated for use at [facility]. Negative results do not preclude Influenza A/B infections, and should not be used as the sole basis for diagnosis, treatment, or other management decisions. If Influenza A/B and RSV PCR results are negative, testing for Parainfluenza virus, Adenovirus and Metapneumovirus is routinely performed for [facility] [place] and intensive care inpatients, and is available on other patients by placing an add-on request. Performed By: #### 4 8509-4 #### PATRICIA STEWART ([id number]) [facility] ([facility]) [address] [place] [address] Glucose Test strip manual (B ld) [Mass/Vol]on 01-07-2025 Glucose [Mass/Vol] 92 mg/dL 74 - 99 mg/dL [facility] Interpretation and review of laboratory results Normal [facility] Glucose [Mass/Vol] 92 mg/dL Normal 74-99 [facility] Comment on above: Performed By: #### 2 341-6 #### PATRICIA STEWART ([id number]) [facility] ([facility]) [address] [place] [address] Magnesiumon 01-07-2025 Magnesium [Mass/Vol] 1.41 mg/dL Low 1.60 - 2.40 mg/dL [facility] Magnesium [Mass/Vol] 1.41 mg/dL Low 1.60-2.40 [facility] Comment on above: Performed By: #### 1 9123-9 #### PATRICIA STEWART ([id number]) [facility] ([facility]) [address] [place], [place] [id number] Natriuretic peptide B [Mass/ Vol]on 01-07-2025 Interpretation and review of laboratory results Normal [facility] Natriuretic peptide B (Bld) [Mass/Vol] 80 pg/mL 0 - 99 pg/mL [facility] <100 pg/mL - Heart failure unlikely 100-299 pg/mL - Intermediate probability of acute heart failure exacerbation. Correlate with clinical context and patient history. >=300 pg/mL - Heart Failure likely. Correlate with clinical context and patient history. BNP testing is performed using different testing methodology at [facility] than at other [facility]. Direct result comparisons should only be made within the same method. [facility] Natriuretic peptide B (Bld) [Mass/Vol] 80 pg/mL Normal 0-99 [facility] Comment on above: Order Comment: <100 pg/mL - Heart failure unlikely 100-299 pg/mL - Intermediate probability of acute heart failure exacerbation. Correlate with clinical context and patient history. >=300 pg/mL - Heart Failure likely. Correlate with clinical context and patient history. BNP testing is performed using different testing methodology at [facility] than at other [facility]. Direct result comparisons should only be made within the same method. Performed By: #### 3 0934-4 #### PATRICIA STEWART ([id number]) [facility] ([facility]) [address] [place], [place] [id number] No Panel Informationon 01-07 Interpretation and review of laboratory results Normal [facility] Interpretation and review of laboratory results Abnormal [facility] Interpretation and review of laboratory results Abnormal [facility] SARS coronavirus 2 RNAon SARS-CoV-2 (COVID-19) RNA CRISTHIAN+probe Ql (Resp) Not detected Normal Not Detected [facility] Comment on above: Order Comment: This assay is an FDA-cleared, in vitro diagnostic nucleic acid amplification test for the qualitative detection and differentiation of SARS CoV-2 from nasopharyngeal specimens collected from individuals with signs and symptoms of respiratory tract infections, and has been validated for use at [facility]. Negative results do not preclude COVID-19 infections and should not be used as the sole basis for diagnosis, treatment, or other management decisions. Testing for SARS CoV-2 is recommended only for patients who meet current clinical and/or epidemiological criteria defined by federal, state, or local public health directives. Performed By: #### 5 7021-8 #### GOMEZ PAT ([id number]) [facility] ([facility]) [address] [place] [address] SARS-CoV-2 (COVID-19) RNA NA A+probe Ql (Resp)on 01-07-2025 This assay is an FDA-cleared, in vitro diagnostic nucleic acid amplification test for the qualitative detection and differentiation of SARS CoV-2 from nasopharyngeal specimens collected from individuals with signs and symptoms of respiratory tract infections, and has been validated for use at [facility]. Negative results do not preclude COVID-19 infections and should not be used as the sole basis for diagnosis, treatment, or other management decisions. Testing for SARS CoV-2 is recommended only for patients who meet current clinical and/or epidemiological criteria defined by federal, state, or local public health directives. [facility] Sars-CoV-2 PCRon 01-07-2025 SARS-CoV-2 (COVID-19) RNA CRISTHIAN+probe Ql (Resp) Not detected Not Detected [facility] Tropinin I.cardiac panel Hig h sensitivity methodon 01-07-2025 Interpretation and review of laboratory results Abnormal [facility] Less than 99th percentile of normal range cutoff- Female and children under 18 years old <14 ng/L; Male <21 ng/L: Negative Repeat testing should be performed if clinically indicated. Female and children under 18 years old 14-50 ng/L; Male 21-50 ng/L: Consistent with possible cardiac damage and possible increased clinical risk. Serial measurements may help to assess extent of myocardial damage. >50 ng/L: Consistent with cardiac damage, increased clinical risk and myocardial infarction. Serial measurements may help assess extent of myocardial damage. NOTE: Children less than 1 year old may have higher baseline troponin levels and results should be interpreted in conjunction with the overall clinical context. NOTE: Troponin I testing is performed using a different testing methodology at [facility] than at other [facility]. Direct result comparisons should only be made within the same method. [facility] Interpretation and review of laboratory results Abnormal [facility] Less than 99th percentile of normal range cutoff- Female and children under 18 years old <14 ng/L; Male <21 ng/L: Negative Repeat testing should be performed if clinically indicated. Female and children under 18 years old 14-50 ng/L; Male 21-50 ng/L: Consistent with possible cardiac damage and possible increased clinical risk. Serial measurements may help to assess extent of myocardial damage. >50 ng/L: Consistent with cardiac damage, increased clinical risk and myocardial infarction. Serial measurements may help assess extent of myocardial damage. NOTE: Children less than 1 year old may have higher baseline troponin levels and results should be interpreted in conjunction with the overall clinical context. NOTE: Troponin I testing is performed using a different testing methodology at [facility] than at other [facility]. Direct result comparisons should only be made within the same method. [facility] Troponin I, High Sensitivity , Initialon 01-07-2025 Tropinin I.cardiac panel High sensitivity method 24 ng/L High 0 - 13 ng/L [facility] Troponin I.cardiac panelon 0 01-07-2025 Tropinin I.cardiac panel High sensitivity method 79 ng/L Critically high 0-13 [facility] Comment on above: Order Comment: Less than 99th percentile of normal range cutoff-Female and children under 18 years old <14 ng/L; Male <21 ng/L: NegativeRepeat testing should be performed if clinically indicated.Female and children under 18 years old 14-50 ng/L; Male 21-50 ng/L:Consistent with possible cardiac damage and possible increased clinicalrisk. Serial measurements may help to assess extent of myocardial damage.>50 ng/L: Consistent with cardiac damage, increased clinical risk andmyocardial infarction. Serial measurements may help assess extent ofmyocardial damage.NOTE: Children less than 1 year old may have higher baseline troponinlevels and results should be interpreted in conjunction with the overallclinical context.NOTE: Troponin I testing is performed using a differenttesting methodology at [facility]. Direct result comparisons should onlybe made within the same method. Performed By: #### 5 7021-8 #### GOMEZ PAT ([id number]) [facility] ([facility]) [address] [place], [place] [id number] Tropinin I.cardiac panel High sensitivity method 24 ng/L High 0-13 [facility] Comment on above: Order Comment: Less than 99th percentile of normal range cutoff- Female and children under 18 years old <14 ng/L; Male <21 ng/L: Negative Repeat testing should be performed if clinically indicated. Female and children under 18 years old 14-50 ng/L; Male 21-50 ng/L: Consistent with possible cardiac damage and possible increased clinical risk. Serial measurements may help to assess extent of myocardial damage. >50 ng/L: Consistent with cardiac damage, increased clinical risk and myocardial infarction. Serial measurements may help assess extent of myocardial damage. NOTE: Children less than 1 year old may have higher baseline troponin levels and results should be interpreted in conjunction with the overall clinical context. NOTE: Troponin I testing is performed using a different testing methodology at [facility] than at other [facility]. Direct result comparisons should only be made within the same method. Performed By: #### 8 9577-1 #### GOMEZ PAT ([id number]) [facility] ([facility]) [address] [place] [address] [phone] Troponin, High Sensitivity, 1 Houron 01-07-2025 Tropinin I.cardiac panel High sensitivity method 79 ng/L Critically high 0 - 13 ng/L [facility] Urinalysis complete W Reflex Culture panel (U)on 01-07-2025 Appearance (U) Turbid Abnormal Clear [facility] Bilirubin (U) [Mass/Vol] Negative NEGATIVE mg/dL [facility] Color (U) Yellow Light-Yellow , Yellow, Dark-Yellow [facility] Glucose Auto test strip (U) [Mass/Vol] Normal Normal mg/dL [facility] Ketones (U) [Mass/Vol] Negative NEGATIVE mg/dL [facility] Leukocyte esterase Auto test strip Ql (U) 500 Irma/uL Abnormal NEGATIVE [facility] Nitrite Auto test strip Ql (U) 2+ Abnormal NEGATIVE [facility] pH (U) 7.5 [pH] 5.0, 5.5, 6.0, 6.5, 7.0, 7.5, 8.0 [facility] Protein (U) [Mass/Vol] 50 (1+) Abnormal NEGATIVE, 10 (TRACE), 20 (TRACE) mg/dL [facility] RBC (U) [#/Vol] Negative NEGATIVE mg/dL [facility] Specific gravity (U) [Rel density] 1.017 1.005 - 1.035 [facility] Urobilinogen (U) [Mass/Vol] Normal Normal mg/dL [facility] Appearance (U) Turbid Normal Clear [facility] Comment on above: Performed By: #### 5 8077-9 #### PATRICIA STEWART ([id number]) [facility] ([facility]) [address] [place] [address] Bilirubin (U) [Mass/Vol] Negative Normal NEGATIVE [facility] Comment on above: Performed By: #### 5 8077-9 #### PATRICIA STEWART ([id number]) [facility] ([facility]) [address] [place], [place] [phone] Color (U) Yellow Normal Light-Yellow , Yellow, Dark-Yellow [facility] Comment on above: Performed By: #### 5 8077-9 #### PATRICIA STEWART ([id number]) [facility] ([facility]) [address] [place] [address] Glucose Auto test strip (U) [Mass/Vol] Normal Normal Normal [facility] Comment on above: Performed By: #### 5 8077-9 #### PATRICIA STEWART ([id number]) [facility] ([facility]) [address] [place] [address] 11082 Ketones (U) [Mass/Vol] Negative Normal NEGATIVE [facility] Comment on above: Performed By: #### 5 8077-9 #### PATRICIA STEWART ([id number]) [facility] ([facility]) [address] [place] [address] 43463 Leukocyte esterase Auto test strip Ql (U) 500 Irma/uL Abnormal NEGATIVE [facility] Comment on above: Performed By: #### 5 8077-9 #### PATRICIA STEWART ([id number]) [facility] ([facility]) [address] [place] [address] 24538 Nitrite Auto test strip Ql (U) 2+ Abnormal NEGATIVE [facility] Comment on above: Performed By: #### 5 8077-9 #### PATRICIA STEWART ([id number]) [facility] ([facility]) [address] [place] [address] 64679 pH (U) 7.5 [pH] Normal 5.0, 5.5, 6.0, 6.5, 7.0, 7.5, 8.0 [facility] Comment on above: Performed By: #### 5 8077-9 #### PATRICIA STEWART ([id number]) [facility] ([facility]) [address] [place] [address] 26539 Protein (U) [Mass/Vol] 50 (1+) Abnormal NEGATIVE, 10 (TRACE), 20 (TRACE) [facility] Comment on above: Performed By: #### 5 8077-9 #### PATRICIA STEWART ([id number]) [facility] ([facility]) [address] [place] [address] 89733 RBC (U) [#/Vol] Negative Normal NEGATIVE [facility] Comment on above: Performed By: #### 5 8077-9 #### PATRICIA STEWART ([id number]) [facility] ([facility]) [address] [place] [address] 30202 Specific gravity (U) [Rel density] 1.017 Normal 1.005-1.035 [facility] Comment on above: Performed By: #### 5 8077-9 #### PATRICIA STEWART ([id number]) [facility] ([facility]) [address] [place] [address] Urobilinogen (U) [Mass/Vol] Normal Normal Normal [facility] Comment on above: Performed By: #### 5 8077-9 #### PATRICIA STEWART ([id number]) [facility] ([facility]) [address] [place] [address] Urinalysis microscopic panel Auto Ql (U)on 01-07-2025 Bacteria Auto (Urine sed) [#/Area] 1+ Abnormal NONE SEEN /HPF [facility] Epithelial cells.squamous Auto (Urine sed) [#/Area] 1-9 (SPARSE) Reference range not established. /HPF [facility] Mucus Auto (Urine sed) [#/Area] FEW Reference range not established. /LPF [facility] RBC Auto (Urine sed) [#/Area] 3-5 NONE, 1-2, 3-5 /HPF [facility] WBC Auto (Urine sed) [#/Area] >50 Abnormal 1-5, NONE /HPF [facility] Bacteria Auto (Urine sed) [#/Area] 1+ /HPF Abnormal NONE SEEN [facility] Comment on above: Performed By: #### 5 3315-8 #### PATRICIA STEWART ([id number]) [facility] ([facility]) [address] [place] [address] Epithelial cells.squamous Auto (Urine sed) [#/Area] 1-9 (SPARSE) Normal Reference range not established. [facility] Comment on above: Performed By: #### 5 3315-8 #### PATRICIA STEWART ([id number]) [facility] ([facility]) [address] [place] [address] Mucus Auto (Urine sed) [#/Area] FEW Normal Reference range not established. [facility] Comment on above: Performed By: #### 5 3315-8 #### PATRICIA STEWART ([id number]) [facility] ([facility]) [address] [place] [address] RBC Auto (Urine sed) [#/Area] 3-5 Normal NONE, 1-2, 3-5 [facility] Comment on above: Performed By: #### 5 3315-8 #### PATRICIA STEWART ([id number]) [facility] ([facility]) [facility] [place] [address] WBC Auto (Urine sed) [#/Area] >50 Abnormal 1-5, NONE [facility] Comment on above: Performed By: #### 5 3315-8 #### PATRICIA STEWART ([id number]) [facility] ([facility]) [facility] [place] [address] XR ANKLE RIGHT 3+ VIEWSon XR ANKLE RIGHT 3+ VIEWS Interpreted By: Isabel Bean, STUDY: XR ANKLE RIGHT 3+ VIEWS; ; 01/07/2025 9:50 pm INDICATION: Signs/Symptoms:rt ankle pain. COMPARISON: None. ACCESSION NUMBER(S): [id number] ORDERING CLINICIAN: JOSE SUERO FINDINGS: Three views of the ankle are obtained. No acute fracture or dislocation. Generalized diffuse osteopenia. The ankle mortise is preserved. Plantar and posterior calcaneal spurring noted. Soft tissues are unremarkable. IMPRESSION: No acute fracture. Generalized diffuse osteopenia. MACRO: None Signed by: Isabel Bean 01/08/2025 3:06 AM Dictation workstation: [id number] [facility] XR Ankle - right 3 Viewson 0 01-07-2025 Radiology Study observation (narrative) [facility] Work Phone: XR CHEST 1 VIEWon 01-07-2025 XR CHEST 1 VIEW Interpreted By: Jordan Farr, STUDY: XR CHEST 1 VIEW; 01/07/2025 6:30 pm INDICATION: Signs/Symptoms:altered loc. COMPARISON: 06/27/2024 ACCESSION NUMBER(S): [id number] ORDERING CLINICIAN: ELIAZAR NOLAN FINDINGS: No consolidation. No pleural effusion or pneumothorax. Normal heart size. No acute osseous abnormality. IMPRESSION: No acute cardiopulmonary abnormality. Signed by: Jordan Farr 01/07/2025 6:36 PM Dictation workstation: [id number] [facility] XR Chest Single viewon 01-07 No acute cardiopulmonary abnormality. Signed by: Jordan Farr 01/07/2025 6:36 PM Dictation workstation: [id number] [facility] Interpreted By: Jordan Farr, STUDY: XR CHEST 1 VIEW; 01/07/2025 6:30 pm INDICATION: Signs/Symptoms:altered loc. COMPARISON: 06/27/2024 ACCESSION NUMBER(S): [id number] ORDERING CLINICIAN: ELIAZAR NOLAN FINDINGS: No consolidation. No pleural effusion or pneumothorax. Normal heart size. No acute osseous abnormality. MMODAL Jordan Farr MD - 01/07/2025 Interpreted By: Jordan Farr, STUDY: XR CHEST 1 VIEW; 01/07/2025 6:30 pm INDICATION: Signs/Symptoms:altered loc. COMPARISON: 06/27/2024 ACCESSION NUMBER(S): [id number] ORDERING CLINICIAN: ELIAZAR NOLAN FINDINGS: No consolidation. No pleural effusion or pneumothorax. Normal heart size. No acute osseous abnormality. IMPRESSION: No acute cardiopulmonary abnormality. Signed by: Jordan Farr 01/07/2025 6:36 PM Dictation workstation: [id number] [facility] Work Phone: Radiology Study observation (narrative) [facility] Work Phone: XR Chest Single viewOrdered By: Jordan Farr on 01-07-2025 [facility] Work Phone: ECG 12-LEADon 06-27-2024 ECG 12-LEAD Ventricular Rate 92 Atrial Rate 92 P-R Interval 124 QRS Duration 76 Q-T Interval 358 QTC Calculation(Bazett) 442 P Orange 56 R Orange 23 T Orange 46 QRS Count 15 Q Onset 222 P Onset 160 P Offset 198 T Offset 401 QTC Fredericia 412 Diagnosis Normal sinus rhythm Normal ECG When compared with ECG of 29-MAY-2024 15:10, No significant change was found See ED provider note for full interpretation and clinical correlation Confirmed by Beatris Coello ([id number]) on 06/28/2024 1:32:19 PM Normal [facility] APTTOrdered By: Terry coleman on 05-29-2024 aPTT Coag (PPP) [Time] 26 s Low [facility] Basic metabolic 2000 panelon 05-29-2024 Anion gap [Moles/Vol] 13 mmol/L 10 - 2 0 mmol/L [facility] Calcium [Mass/Vol] 9.2 mg/dL 8.6 - 10. 3 mg/dL [facility] Chloride [Moles/Vol] 96 mmol/L Low 98 - 10 7 mmol/L [facility] CO2 [Moles/Vol] 31 mmol/L 21 - 32 mmol/L [facility] Creatinine [Mass/Vol] 1.02 mg/dL 0.50 - 1.05 mg/dL [facility] GFR/1.73 sq M.predicted among non-blacks MDRD (S/P/Bld) [Vol rate/Area] 66 mL/min/{1.73_m2} - PINF [facility] Comment on above: Calculations of bree mated GFR are performed using the 2020 CKD-EPI Study Refit equation without the race variable for the IDMS-Traceable creatinine methods. https://jasn.asnjournals.org/content//ASN.306045 2697 Glucose [Mass/Vol] 99 mg/dL 74 - 99 mg/dL [facility] Interpretation and review of laboratory results Abnormal [facility] Potassium [Moles/Vol] 3.7 mmol/L 3.5 - 5.3 mmol/L [facility] Sodium [Moles/Vol] 136 mmol/L 136 - 145 mmol/L [facility] Urea nitrogen [Mass/Vol] 12 mg/dL 6 - 23 mg/dL [facility] CBC W Auto Differential pane l (Bld)on 05-29-2024 Basophils (Bld) [#/Vol] 0.05 10*3/uL [facility] Basophils/100 WBC (Bld) 0.6 % 0.0 - 2.0 % [facility] Eosinophils (Bld) [#/Vol] 0.11 10*3/uL [facility] Eosinophils/100 WBC (Bld) 1.3 % 0.0 - 6.0 % [facility] Erythrocyte distribution width (RBC) [Ratio] 14.2 % 11.5 - 14.5 % [facility] Hematocrit (Bld) [Volume fraction] 41.2 % 36.0 - 46.0 % [facility] Hemoglobin (Bld) [Mass/Vol] 13.4 g/dL 12.0 - 16.0 g/dL [facility] Immature granulocytes (Bld) [#/Vol] 0.03 10*3/uL [facility] Immature granulocytes/100 WBC (Bld) 0.4 % 0.0 - 0.9 % [facility] Comment on above: Immature Granulocyte Count (IG) includes promyelocytes, myelocytes and metamyelocytes but does not include bands. Percent differential counts (%) should be interpreted in the context of the absolute cell counts (cells/UL). Interpretation and review of laboratory results Abnormal [facility] Lymphocytes (Bld) [#/Vol] 0.58 10*3/uL Low [facility] Lymphocytes/100 WBC (Bld) 6.9 % 13.0 - 44.0 % [facility] MCH (RBC) [Entitic mass] 29.3 pg 26.0 - 34.0 pg [facility] MCHC (RBC) [Mass/Vol] 32.5 g/dL 32.0 - 36.0 g/dL [facility] MCV (RBC) [Entitic vol] 90 fL 80 - 100 fL [facility] Monocytes (Bld) [#/Vol] 0.29 10*3/uL [facility] Monocytes/100 WBC (Bld) 3.5 % 2.0 - 10.0 % [facility] Neutrophils (Bld) [#/Vol] 7.33 10*3/uL [facility] Comment on above: Percent differential counts (%) should be interpreted in the context of the absolute cell counts (cells/uL). Neutrophils/100 WBC (Bld) 87.3 % 40.0 - 80.0 % [facility] Nucleated RBC/100 WBC (Bld) [Ratio] 0.0 % [facility] Platelets (Bld) [#/Vol] 175 10*3/uL [facility] RBC (Bld) [#/Vol] 4.58 10*6/uL [facility] WBC (Bld) [#/Vol] 8.4 10*3/uL [facility] CT Cervical spine WO contras ton 05-29-2024 1. No acute fracture or spondylolisthesis. 2. No significant interval change of chronic degenerative changes as described in the body of the report. Signed by: Juvenal Huertas 05/29/2024 4:28 PM Dictation workstation: [id number] [facility]ODAL Interpreted By: Juvenal Franco, STUDY: CT CERVICAL SPINE WO IV CONTRAST; 05/29/2024 3:37 pm INDICATION: Signs/Symptoms:NECK PAIN/FALL; COMPARISON: 04/08/2024 ACCESSION NUMBER(S): [id number] ORDERING CLINICIAN: JERONIMO DOLAN TECHNIQUE: Contiguous axial images were acquired from the skull base to the lung apices. Coronal and sagittal reformatted images were obtained. All CT examinations are performed with 1 or more of the following dose reduction techniques: Automated exposure control, adjustment of mA and/or kv according to patient's size, or use of iterative reconstruction techniques. FINDINGS: There is straightening and mild reversal of the normal cervical lordosis. No acute fracture or spondylolisthesis is identified. Fusion of the posterior elements of C2 on C3 are again seen. The occipital condyles, arch of C1, and the odontoid processes are intact. The atlantoaxial relationship is well maintained. Moderate-severe disc space narrowing at C5-6 with mild diffuse disc bulging, endplate degenerative changes, and uncovertebral joint degenerative changes. Bony spinal canal is mildly narrowed at C5-6. There is moderate-severe right neural foramina stenosis and mild-moderate left neural foramina stenosis at C5-6, unchanged. The remainder of the bony neural foramina appear patent. The visualized lung apices are unremarkable. MMODAL Juvenal Huertas M D - 05/29/2024 Interpreted By: Juvenal Huertas, STUDY: CT CERVICAL SPINE WO IV CONTRAST; 05/29/2024 3:37 pm INDICATION: Signs/Symptoms:NECK PAIN/FALL; COMPARISON: 04/08/2024 ACCESSION NUMBER(S): [id number] ORDERING CLINICIAN: JERONIMO DOLAN TECHNIQUE: Contiguous axial images were acquired from the skull base to the lung apices. Coronal and sagittal reformatted images were obtained. All CT examinations are performed with 1 or more of the following dose reduction techniques: Automated exposure control, adjustment of mA and/or kv according to patient's size, or use of iterative reconstruction techniques. FINDINGS: There is straightening and mild reversal of the normal cervical lordosis. No acute fracture or spondylolisthesis is identified. Fusion of the posterior elements of C2 on C3 are again seen. The occipital condyles, arch of C1, and the odontoid processes are intact. The atlantoaxial relationship is well maintained. Moderate-severe disc space narrowing at C5-6 with mild diffuse disc bulging, endplate degenerative changes, and uncovertebral joint degenerative changes. Bony spinal canal is mildly narrowed at C5-6. There is moderate-severe right neural foramina stenosis and mild-moderate left neural foramina stenosis at C5-6, unchanged. The remainder of the bony neural foramina appear patent. The visualized lung apices are unremarkable. IMPRESSION: 1. No acute fracture or spondylolisthesis. 2. No significant interval change of chronic degenerative changes as described in the body of the report. Signed by: Juvenal Huertas 05/29/2024 4:28 PM Dictation workstation: [id number] [facility] Work Phone: CT Cervical spine WO contras tOrdered By: Juvenal Huertas on 05-29-2024 [facility] Work Phone: CT Head WO contraston 2023 No significant inter sadiq change from the prior study. No CT evidence for acute intracranial pathology. Signed by: Juvenal Huertas 05/29/2024 4:11 PM Dictation workstation: [id number] Interpreted By: Juvenal Franco, STUDY: JERONIMO DOLAN; 05/29/2024 3:37 pm INDICATION: Signs/Symptoms:HEAD INJURY; COMPARISON: 04/19/2024 ACCESSION NUMBER(S): [id number] ORDERING CLINICIAN: JERONIMO DOLAN TECHNIQUE: Contiguous axial images were acquired from the vertex through the posterior fossa without IV contrast. All CT examinations are performed with 1 or more of the following dose reduction techniques: Automated exposure control, adjustment of mA and/or kv according to patient's size, or use of iterative reconstruction techniques. FINDINGS: No focal mass effect or midline shift is identified. The ventricles and sulci are symmetric and appropriate for the patient's age. Moderate degree of nonspecific white matter hypodensity, most consistent with chronic small-vessel ischemic disease. The waldron white matter differentiation is preserved. No acute intracranial hemorrhage is seen. No intra-axial or extra-axial fluid collection is seen. The visualized paranasal sinuses and mastoid air cells are clear. [facility] MMODAL Juvenal Huertas M D - 05/29/2024 Interpreted By: Juvenal Huertas, STUDY: JERONIMO DOLAN; 05/29/2024 3:37 pm INDICATION: Signs/Symptoms:HEAD INJURY; COMPARISON: 04/19/2024 ACCESSION NUMBER(S): [id number] ORDERING CLINICIAN: JERONIMO DOLAN TECHNIQUE: Contiguous axial images were acquired from the vertex through the posterior fossa without IV contrast. All CT examinations are performed with 1 or more of the following dose reduction techniques: Automated exposure control, adjustment of mA and/or kv according to patient's size, or use of iterative reconstruction techniques. FINDINGS: No focal mass effect or midline shift is identified. The ventricles and sulci are symmetric and appropriate for the patient's age. Moderate degree of nonspecific white matter hypodensity, most consistent with chronic small-vessel ischemic disease. The waldron white matter differentiation is preserved. No acute intracranial hemorrhage is seen. No intra-axial or extra-axial fluid collection is seen. The visualized paranasal sinuses and mastoid air cells are clear. IMPRESSION: No significant interval change from the prior study. No CT evidence for acute intracranial pathology. Signed by: Juvenal Huertas 05/29/2024 4:11 PM Dictation workstation: [id number] [facility] Work Phone: [facility] Work Phone: Drug Screen, Urineon 024 Amphetamines Screen Ql (U) Negative Presumptive Negative [facility] Comment on above: CUTOFF LEVEL: 500 NG /ML Cross-reactivity has been reported with high concentrations of the following drugs: buproprion, chloroquine, chlorpromazine, ephedrine, mephentermine, fenfluramine, phentermine, phenylpropanolamine, pseudoephedrine, and propranolol. Barbiturates Screen Ql (U) Negative Presumptive Negative [facility] Comment on above: CUTOFF LEVEL: 200 NG /ML Benzodiazepines Ql (U) Negative Presumptive Negative [facility] Comment on above: CUTOFF LEVEL: 200 NG /ML Benzoylecgonine Screen Ql (U) Negative Presumptive Negative [facility] Comment on above: CUTOFF LEVEL: 150 NG /ML Cannabinoids Screen Ql (U) Positive Abnormal Presumptive Negative [facility] Comment on above: CUTOFF LEVEL: 50 NG/ ML fentaNYL+Norfentanyl Screen Ql (U) Negative Presumptive Negative [facility] Comment on above: CUTOFF LEVEL: 5 NG/M L Interpretation and review of laboratory results Abnormal [facility] Methadone Screen Ql (U) Negative Presumptive Negative [facility] Comment on above: CUTOFF LEVEL: 150 NG /ML The metabolite Z-exsmh-khuaaafqhvfqao (LAAM) is not detected by this method in concentrations that would be found in the urine of patients on LAAM therapy. Opiates Screen Ql (U) Negative Presum ptive Negative [facility] Comment on above: CUTOFF LEVEL: 300 NG /ML The opiate screen does not detect fentanyl, meperidine, or tramadol. Oxycodone is not consistently detected (refer to Oxycodone Screen, Urine result). oxyCODONE+oxyMORphone Screen Ql (U) Negative Presumptive Negative [facility] Comment on above: CUTOFF LEVEL: 100 NG /ML This test will accurately detect both oxycodone and oxymorphone. Phencyclidine Ql (U) Negative Presump tive Negative [facility] Comment on above: CUTOFF LEVEL: 25 NG/ ML Cross-reactivity has been reported with dextromethorphan. Drug screen results are presumptive and should not be used to assess compliance with prescribed medication. Contact the performing [facility] laboratory to add-on definitive confirmatory testing if clinically indicated. Toxicology screening results are reported qualitatively. The concentration must be greater than or equal to the cutoff to be reported as positive. The concentration at which the screening test can detect an individual drug or metabolite varies. The absence of expected drug(s) and/or drug metabolite(s) may indicate non-compliance, inappropriate timing of specimen collection relative to drug administration, poor drug absorption, diluted/adulterated urine, or limitations of testing. For medical purposes only; not valid for forensic use. Interpretive questions should be directed to the laboratory medical directors. [facility] Ethanolon 05-29-2024 Ethanol [Mass/Vol] mg/dL NINF - 10 mg/dL [facility] Comment on above: For medical use only . Hepatic function 2000 panelo n 05-29-2024 Albumin BCP dye [Mass/Vol] 4.0 g/dL 3.4 - 5.0 g/dL [facility] ALP [Catalytic activity/Vol] 90 U/L 33 - 110 U/L [facility] ALT With P-5'-P [Catalytic activity/Vol] U/L Low 7 - 45 U/L [facility] Comment on above: Patients treated wit h Sulfasalazine may generate falsely decreased results for ALT. AST With P-5'-P [Catalytic activity/Vol] 9 U/L 9 - 39 U/L [facility] Bilirubin [Mass/Vol] 0.6 mg/dL 0.0 - 1 .2 mg/dL [facility] Bilirubin.direct [Mass/Vol] 0.1 mg/dL 0.0 - 0.3 mg/dL [facility] Interpretation and review of laboratory results Abnormal [facility] Protein [Mass/Vol] 7.2 g/dL 6.4 - 8.2 g/dL [facility] Lactateon 05-29-2024 Lactate [Moles/Vol] 0.8 mmol/L 0.4 - 2. 0 mmol/L [facility] Lipaseon 05-29-2024 Lipase [Catalytic activity/Vol] 18 U/L 9 - 82 U/L [facility] No Panel Informationon 05-29 Interpretation and review of laboratory results Abnormal [facility] Interpretation and review of laboratory results Normal [facility] Venipuncture immediately after or during the administration of Metamizole may lead to falsely low results. Testing should be performed immediately prior to Metamizole dosing. [facility] Radiology Study observation (narrative) [facility] Work Phone: PT Coag (PPP) [Time]on 05-29 INR Coag (PPP) [Relative time] 0.9 {INR} 0.9 - 1.1 [facility] Interpretation and review of laboratory results Normal [facility] [facility] 05-29-2024 PT Coag (PPP) [Time] 10.5 s [facility] SST TOPon 05-29-2024 Extra Tube Hold for add-ons. [facility] Comment on above: Auto resulted. [facility] Tropinin I.cardiac panel Hig h sensitivity methodon 05-29-2024 Interpretation and review of laboratory results Normal [facility] Less than 99th percentile of normal range cutoff- Female and children under 18 years old <14 ng/L; Male <21 ng/L: Negative Repeat testing should be performed if clinically indicated. Female and children under 18 years old 14-50 ng/L; Male 21-50 ng/L: Consistent with possible cardiac damage and possible increased clinical risk. Serial measurements may help to assess extent of myocardial damage. >50 ng/L: Consistent with cardiac damage, increased clinical risk and myocardial infarction. Serial measurements may help assess extent of myocardial damage. NOTE: Children less than 1 year old may have higher baseline troponin levels and results should be interpreted in conjunction with the overall clinical context. NOTE: Troponin I testing is performed using a different testing methodology at [facility] than at other [facility]. Direct result comparisons should only be made within the same method. [facility] Troponin I, High Sensitivity on 05-29-2024 Tropinin I.cardiac panel High sensitivity method 9 ng/L 0 - 13 ng/L [facility] Urinalysis complete W Reflex Culture panel (U)on 05-29-2024 Appearance (U) Clear Clear [facility] Bilirubin (U) [Mass/Vol] Negative NEGATIVE [facility] Color (U) Colorless Abnormal Light-Yellow , Yellow, Dark-Yellow [facility] Glucose Auto test strip (U) [Mass/Vol] Normal Normal mg/dL [facility] Ketones (U) [Mass/Vol] Negative NEGATIVE mg/dL [facility] Leukocyte esterase Auto test strip Ql (U) 25 Irma/ L Abnormal NEGATIVE [facility] Nitrite Auto test strip Ql (U) Negative NEGATIVE [facility] pH (U) 6.0 [pH] 5.0, 5.5, 6.0, 6.5, 7.0, 7.5, 8.0 [facility] Protein (U) [Mass/Vol] Negative NEGATIVE, 10 (TRACE), 20 (TRACE) mg/dL [facility] RBC (U) [#/Vol] Negative NEGATIVE [facility] Specific gravity (U) [Rel density] 1.008 1.005 - 1.035 [facility] Urobilinogen (U) [Mass/Vol] Normal Normal mg/dL [facility] Urinalysis microscopic panel Auto Ql (U)on 05-29-2024 Bacteria Auto (Urine sed) [#/Area] 1+ Abnormal NONE SEEN /HPF [facility] Epithelial cells.squamous Auto (Urine sed) [#/Area] 1-9 (SPARSE) Reference range not established. /HPF [facility] Leukocyte clumps Auto (Urine sed) [#/Area] RARE Reference range not established. /HPF [facility] RBC Auto (Urine sed) [#/Area] 1-2 NONE, 1-2, 3-5 /HPF [facility] WBC Auto (Urine sed) [#/Area] 1-5 1-5, NONE /HPF [facility] XR Chest Single viewon 05-29 No acute process. Signed by Terrence Levi MD TELERADIOLOGY STUDY: Chest Radiograph; 05/29/2024 3:26 PM INDICATION: Evaluate status post fall. COMPARISON: Chest, single portable view obtained on 04/19/2024 at 09:02 hours. Chest, single portable view obtained on 10/22/2023 at 21:03 hours. ACCESSION NUMBER(S): [id number] ORDERING CLINICIAN: JERONIMO DOLAN TECHNIQUE: Frontal chest was obtained at 15:25 hours. FINDINGS: CARDIOMEDIASTINAL SILHOUETTE: Cardiomediastinal silhouette is normal in size and configuration. LUNGS: Lungs are clear. ABDOMEN: No remarkable upper abdominal findings. BONES: No acute osseous changes. TELERADIOLOGY Terrence Levi MD - 05/29/2024 STUDY: Chest Radiograph; 05/29/2024 3:26 PM INDICATION: Evaluate status post fall. COMPARISON: Chest, single portable view obtained on 04/19/2024 at 09:02 hours. Chest, single portable view obtained on 10/22/2023 at 21:03 hours. ACCESSION NUMBER(S): [id number] ORDERING CLINICIAN: JERONIMO DOLAN TECHNIQUE: Frontal chest was obtained at 15:25 hours. FINDINGS: CARDIOMEDIASTINAL SILHOUETTE: Cardiomediastinal silhouette is normal in size and configuration. LUNGS: Lungs are clear. ABDOMEN: No remarkable upper abdominal findings. BONES: No acute osseous changes. IMPRESSION: No acute process. Signed by Terrence Levi MD [facility] Work Phone: Radiology Study observation (narrative) [facility] Work Phone: XR Chest Single viewOrdered By: Terrence Levi on 05-29-2024 [facility] Work Phone: aPTT Coag (PPP) [Time]Ordere d By: Terry Martinez on 05-29-2024 Interpretation and review of laboratory results Abnormal [facility] The APTT is no longe r used for monitoring Unfractionated Heparin Therapy. For monitoring Heparin Therapy, use the Heparin Assay. [facility] CBC W Auto Differential pane l (Bld)on 04-19-2024 Basophils (Bld) [#/Vol] 0.05 10*3/uL [facility] Basophils/100 WBC (Bld) 1.0 % 0.0 - 2.0 % [facility] Eosinophils (Bld) [#/Vol] 0.19 10*3/uL [facility] Eosinophils/100 WBC (Bld) 3.7 % 0.0 - 6.0 % [facility] Erythrocyte distribution width (RBC) [Ratio] 14.2 % 11.5 - 14.5 % [facility] Hematocrit (Bld) [Volume fraction] 38.8 % 36.0 - 46.0 % [facility] Hemoglobin (Bld) [Mass/Vol] 11.8 g/dL Low 12.0 - 16.0 g/dL [facility] Immature granulocytes (Bld) [#/Vol] 0.01 10*3/uL [facility] Immature granulocytes/100 WBC (Bld) 0.2 % 0.0 - 0.9 % [facility] Comment on above: Immature Granulocyte Count (IG) includes promyelocytes, myelocytes and metamyelocytes but does not include bands. Percent differential counts (%) should be interpreted in the context of the absolute cell counts (cells/UL). Interpretation and review of laboratory results Abnormal [facility] Lymphocytes (Bld) [#/Vol] 1.18 10*3/uL Low [facility] Lymphocytes/100 WBC (Bld) 23.0 % 13.0 - 44.0 % [facility] MCH (RBC) [Entitic mass] 28.3 pg 26.0 - 34.0 pg [facility] MCHC (RBC) [Mass/Vol] 30.4 g/dL Low 32.0 - 36.0 g/dL [facility] MCV (RBC) [Entitic vol] 93 fL 80 - 100 fL [facility] Monocytes (Bld) [#/Vol] 0.52 10*3/uL [facility] Monocytes/100 WBC (Bld) 10.1 % 2.0 - 10.0 % [facility] Neutrophils (Bld) [#/Vol] 3.18 10*3/uL [facility] Comment on above: Percent differential counts (%) should be interpreted in the context of the absolute cell counts (cells/uL). Neutrophils/100 WBC (Bld) 62.0 % 40.0 - 80.0 % [facility] Nucleated RBC/100 WBC (Bld) [Ratio] 0.0 % [facility] Platelets (Bld) [#/Vol] 216 10*3/uL [facility] RBC (Bld) [#/Vol] 4.17 10*6/uL [facility] WBC (Bld) [#/Vol] 5.1 10*3/uL [facility] CT Head WO contraston 2023 Unremarkable exam. There has not been significant interval change from the prior exam. Signed by: Mazin Garcia 04/19/2024 9:20 AM Dictation workstation: [id number] MMODAL Interpreted By: Mazin Tineo, STUDY: CT HEAD WO IV CONTRAST; 04/19/2024 8:50 am INDICATION: Signs/Symptoms:Weakness , tremors. COMPARISON: 04/08/2024 ACCESSION NUMBER(S): [id number] ORDERING CLINICIAN: JERROD HALE TECHNIQUE: Sequential trans axial images were obtained . FINDINGS: INTRACRANIAL: CORTICAL SULCI AND EXTRA-AXIAL SPACES: Unremarkable. VENTRICULAR SYSTEM: Unremarkable without significant dilatation. CEREBRAL PARENCHYMA: Unremarkable without significant degenerative change.There is no evidence of definite subacute infarction, intracranial hemorrhage or mass. EXTRACRANIAL: Visualized paranasal sinuses and mastoids are clear. The calvarium is intact. MMODAL Mazin Garcia MD - 04/19/2024 Interpreted By: Mazin Garcia, STUDY: CT HEAD WO IV CONTRAST; 04/19/2024 8:50 am INDICATION: Signs/Symptoms:Weakness , tremors. COMPARISON: 04/08/2024 ACCESSION NUMBER(S): [id number] ORDERING CLINICIAN: JERROD HALE TECHNIQUE: Sequential trans axial images were obtained . FINDINGS: INTRACRANIAL: CORTICAL SULCI AND EXTRA-AXIAL SPACES: Unremarkable. VENTRICULAR SYSTEM: Unremarkable without significant dilatation. CEREBRAL PARENCHYMA: Unremarkable without significant degenerative change.There is no evidence of definite subacute infarction, intracranial hemorrhage or mass. EXTRACRANIAL: Visualized paranasal sinuses and mastoids are clear. The calvarium is intact. IMPRESSION: Unremarkable exam. There has not been significant interval change from the prior exam. Signed by: Mazin Garcia 04/19/2024 9:20 AM Dictation workstation: [id number] [facility] Work Phone: Radiology Study observation (narrative) [facility] Work Phone: CT Head WO contrastOrdered B y: Mazin Garcia on 04-19-2024 [facility] Work Phone: Comprehensive metabolic 2000 panelon 04-19-2024 Albumin BCP dye [Mass/Vol] 3.5 g/dL 3.4 - 5.0 g/dL [facility] ALP [Catalytic activity/Vol] 97 U/L 33 - 110 U/L [facility] ALT With P-5'-P [Catalytic activity/Vol] U/L Low 7 - 45 U/L [facility] Comment on above: Patients treated wit h Sulfasalazine may generate falsely decreased results for ALT. Anion gap [Moles/Vol] 13 mmol/L 10 - 2 0 mmol/L [facility] AST With P-5'-P [Catalytic activity/Vol] 9 U/L 9 - 39 U/L [facility] Bilirubin [Mass/Vol] 0.3 mg/dL 0.0 - 1 .2 mg/dL [facility] Calcium [Mass/Vol] 9.0 mg/dL 8.6 - 10. 3 mg/dL [facility] Chloride [Moles/Vol] 101 mmol/L 98 - 10 7 mmol/L [facility] CO2 [Moles/Vol] 27 mmol/L 21 - 32 mmol/L [facility] Creatinine [Mass/Vol] 1.69 mg/dL High 0.50 - 1.05 mg/dL [facility] GFR/1.73 sq M.predicted among non-blacks MDRD (S/P/Bld) [Vol rate/Area] 36 mL/min/{1.73_m2} Low - PINF [facility] Comment on above: Calculations of bree mated GFR are performed using the 2020 CKD-EPI Study Refit equation without the race variable for the IDMS-Traceable creatinine methods. https://jasn.asnjournals.org/content//ASN.868881 8468 Glucose [Mass/Vol] 88 mg/dL 74 - 99 mg/dL [facility] Interpretation and review of laboratory results Abnormal [facility] Potassium [Moles/Vol] 3.7 mmol/L 3.5 - 5.3 mmol/L [facility] Protein [Mass/Vol] 6.4 g/dL 6.4 - 8.2 g/dL [facility] Sodium [Moles/Vol] 137 mmol/L 136 - 145 mmol/L [facility] Urea nitrogen [Mass/Vol] 17 mg/dL 6 - 23 mg/dL [facility] Lactateon 04-19-2024 Lactate [Moles/Vol] 1.8 mmol/L 0.4 - 2. 0 mmol/L [facility] Lactate [Moles/Vol]on 2023 Interpretation and review of laboratory results Normal [facility] Venipuncture immediately after or during the administration of Metamizole may lead to falsely low results. Testing should be performed immediately prior to Metamizole dosing. [facility] No Panel Informationon 04-19 Interpretation and review of laboratory results Abnormal [facility] Interpretation and review of laboratory results Normal [facility] RSV PCRon 04-19-2024 RSV RNA CRISTHIAN+probe Ql (Resp) Not detected Not Detected [facility] RSV RNA CRISTHIAN+probe Ql (Resp)o n 04-19-2024 This assay is an FDA-cleared, in vitro diagnostic nucleic acid amplification test for the detection of RSV from nasopharyngeal specimens, and has been validated for use at [facility]. Negative results do not preclude RSV infections, and should not be used as the sole basis for diagnosis, treatment, or other management decisions. If Influenza A/B and RSV PCR results are negative, testing for Parainfluenza virus, Adenovirus and Metapneumovirus is routinely performed for pediatric oncology and intensive care inpatients at [facility], and is available on other patients by placing an add-on request. [facility] SARS-CoV-2 (COVID-19) RNA NA A+probe Ql (Resp)on 04-19-2024 This assay has recei karen FDA Emergency Use Authorization (EUA) and is only authorized for the duration of time that circumstances exist to justify the authorization of the emergency use of in vitro diagnostic tests for the detection of SARS-CoV-2 virus and/or diagnosis of COVID-19 infection under section 564(b)(1) of the Act, 21 U.S.C. 360bbb-3(b)(1). This assay is an in vitro diagnostic nucleic acid amplification test for the qualitative detection of SARS-CoV-2 from nasopharyngeal specimens and has been validated for use at [facility]. Negative results do not preclude COVID-19 infections and should not be used as the sole basis for diagnosis, treatment, or other management decisions. [facility] Sars-CoV-2 PCRon 04-19-2024 SARS-CoV-2 (COVID-19) RNA CRISTHIAN+probe Ql (Resp) Not detected Not Detected [facility] Tropinin I.cardiac panel Hig h sensitivity methodon 04-19-2024 Interpretation and review of laboratory results Normal [facility] Less than 99th percentile of normal range cutoff- Female and children under 18 years old <14 ng/L; Male <21 ng/L: Negative Repeat testing should be performed if clinically indicated. Female and children under 18 years old 14-50 ng/L; Male 21-50 ng/L: Consistent with possible cardiac damage and possible increased clinical risk. Serial measurements may help to assess extent of myocardial damage. >50 ng/L: Consistent with cardiac damage, increased clinical risk and myocardial infarction. Serial measurements may help assess extent of myocardial damage. NOTE: Children less than 1 year old may have higher baseline troponin levels and results should be interpreted in conjunction with the overall clinical context. NOTE: Troponin I testing is performed using a different testing methodology at [facility] than at other [facility]. Direct result comparisons should only be made within the same method. [facility] Interpretation and review of laboratory results Normal [facility] Less than 99th percentile of normal range cutoff- Female and children under 18 years old <14 ng/L; Male <21 ng/L: Negative Repeat testing should be performed if clinically indicated. Female and children under 18 years old 14-50 ng/L; Male 21-50 ng/L: Consistent with possible cardiac damage and possible increased clinical risk. Serial measurements may help to assess extent of myocardial damage. >50 ng/L: Consistent with cardiac damage, increased clinical risk and myocardial infarction. Serial measurements may help assess extent of myocardial damage. NOTE: Children less than 1 year old may have higher baseline troponin levels and results should be interpreted in conjunction with the overall clinical context. NOTE: Troponin I testing is performed using a different testing methodology at [facility] than at other [facility]. Direct result comparisons should only be made within the same method. [facility] Troponin I, High Sensitivity , Initialon 04-19-2024 Tropinin I.cardiac panel High sensitivity method ng/L 0 - 13 ng/L [facility] Troponin, High Sensitivity, 1 Houron 04-19-2024 Tropinin I.cardiac panel High sensitivity method ng/L 0 - 13 ng/L [facility] Urinalysis complete W Reflex Culture panel (U)on 04-19-2024 Appearance (U) Hazy Abnormal Clear [facility] Bilirubin (U) [Mass/Vol] Negative NEGATIVE [facility] Color (U) Yellow Straw, Yellow [facility] Glucose Auto test strip (U) [Mass/Vol] Negative NEGATIVE mg/dL [facility] Ketones (U) [Mass/Vol] Negative NEGATIVE mg/dL [facility] Leukocyte esterase Auto test strip Ql (U) LARGE (3+) Abnormal NEGATIVE [facility] Nitrite Auto test strip Ql (U) Negative NEGATIVE [facility] pH (U) 6.0 [pH] 5.0, 5.5, 6.0, 6.5, 7.0, 7.5, 8.0 [facility] Protein (U) [Mass/Vol] Negative NEGATIVE mg/dL [facility] RBC (U) [#/Vol] Negative NEGATIVE [facility] Specific gravity (U) [Rel density] 1.012 1.005 - 1.035 [facility] Urobilinogen (U) [Mass/Vol] mg/dL NINF - 2.0 mg/dL [facility] Urinalysis microscopic panel Auto Ql (U)on 04-19-2024 Bacteria Auto (Urine sed) [#/Area] 1+ Abnormal NONE SEEN /HPF [facility] Epithelial cells.squamous Auto (Urine sed) [#/Area] 1-9 (SPARSE) Reference range not established. /HPF [facility] Hyaline casts Auto (Urine sed) [#/Area] 1+ Abnormal NONE /LPF [facility] Mucus Auto (Urine sed) [#/Area] 1+ Reference range not established. /LPF [facility] RBC Auto (Urine sed) [#/Area] NONE NONE, 1-2, 3-5 /HPF [facility] WBC Auto (Urine sed) [#/Area] 11-20 Abnormal 1-5, NONE /HPF [facility] XR Chest Single viewon 04-19 1. No active cardiopulmonary disease. There has not been significant interval change from the prior exam. Signed by: Mazin Garcia 04/19/2024 9:20 AM Dictation workstation: [id number] MMODAL Interpreted By: Mazin Tineo, STUDY: XR CHEST 1 VIEW; 04/19/2024 9:02 am INDICATION: Signs/Symptoms:Weakness . COMPARISON: 10/22/2023 ACCESSION NUMBER(S): [id number] ORDERING CLINICIAN: JERROD HALE FINDINGS: CARDIOMEDIASTINAL SILHOUETTE AND VASCULATURE: Cardiac size: Within normal limits. Aortic shadow: Within normal limits. Mediastinal contours: Within normal limits. Pulmonary vasculature: The central vasculature is unremarkable LUNGS: Lungs are clear. ABDOMEN AND OTHER FINDINGS: No remarkable upper abdominal findings. BONES: No acute osseous changes. MMODAL Mazin Garcia MD - 04/19/2024 Interpreted By: Mazin Garcia, STUDY: XR CHEST 1 VIEW; 04/19/2024 9:02 am INDICATION: Signs/Symptoms:Weakness . COMPARISON: 10/22/2023 ACCESSION NUMBER(S): [id number] ORDERING CLINICIAN: JERROD HALE FINDINGS: CARDIOMEDIASTINAL SILHOUETTE AND VASCULATURE: Cardiac size: Within normal limits. Aortic shadow: Within normal limits. Mediastinal contours: Within normal limits. Pulmonary vasculature: The central vasculature is unremarkable LUNGS: Lungs are clear. ABDOMEN AND OTHER FINDINGS: No remarkable upper abdominal findings. BONES: No acute osseous changes. IMPRESSION: 1. No active cardiopulmonary disease. There has not been significant interval change from the prior exam. Signed by: Mazin Garcia 04/19/2024 9:20 AM Dictation workstation: [id number] [facility] Work Phone: [facility] Work Phone: Radiology Study observation (narrative) [facility] Work Phone: Basic metabolic 2000 panelon 04-08-2024 Anion gap [Moles/Vol] 12 mmol/L 10 - 2 0 mmol/L [facility] Calcium [Mass/Vol] 9.3 mg/dL 8.6 - 10. 3 mg/dL [facility] Chloride [Moles/Vol] 100 mmol/L 98 - 10 7 mmol/L [facility] CO2 [Moles/Vol] 29 mmol/L 21 - 32 mmol/L [facility] Creatinine [Mass/Vol] 1.36 mg/dL High 0.50 - 1.05 mg/dL [facility] GFR/1.73 sq M.predicted among non-blacks MDRD (S/P/Bld) [Vol rate/Area] 47 mL/min/{1.73_m2} Low - PINF [facility] Comment on above: Calculations of bree mated GFR are performed using the 2020 CKD-EPI Study Refit equation without the race variable for the IDMS-Traceable creatinine methods. https://jasn.asnjournals.org/content//ASN.145312 8364 Glucose [Mass/Vol] 110 mg/dL High 74 - 99 mg/dL [facility] Interpretation and review of laboratory results Abnormal [facility] Potassium [Moles/Vol] 4.4 mmol/L 3.5 - 5.3 mmol/L [facility] Comment on above: MILD HEMOLYSIS DETEC SLY. The result may be falsely elevated due to hemolysis or other interferents. Clinical correlation is recommended. Repeat testing may be considered. Sodium [Moles/Vol] 137 mmol/L 136 - 145 mmol/L [facility] Urea nitrogen [Mass/Vol] 18 mg/dL 6 - 23 mg/dL [facility] CBC W Auto Differential pane l (Bld)on 04-08-2024 Basophils (Bld) [#/Vol] 0.09 10*3/uL [facility] Basophils/100 WBC (Bld) 1.1 % 0.0 - 2.0 % [facility] Eosinophils (Bld) [#/Vol] 0.16 10*3/uL [facility] Eosinophils/100 WBC (Bld) 2.0 % 0.0 - 6.0 % [facility] Erythrocyte distribution width (RBC) [Ratio] 14.4 % 11.5 - 14.5 % [facility] Hematocrit (Bld) [Volume fraction] 38.2 % 36.0 - 46.0 % [facility] Hemoglobin (Bld) [Mass/Vol] 12.2 g/dL 12.0 - 16.0 g/dL [facility] Immature granulocytes (Bld) [#/Vol] 0.03 10*3/uL [facility] Immature granulocytes/100 WBC (Bld) 0.4 % 0.0 - 0.9 % [facility] Comment on above: Immature Granulocyte Count (IG) includes promyelocytes, myelocytes and metamyelocytes but does not include bands. Percent differential counts (%) should be interpreted in the context of the absolute cell counts (cells/UL). Interpretation and review of laboratory results Abnormal [facility] Lymphocytes (Bld) [#/Vol] 1.74 10*3/uL [facility] Lymphocytes/100 WBC (Bld) 21.3 % 13.0 - 44.0 % [facility] MCH (RBC) [Entitic mass] 28.6 pg 26.0 - 34.0 pg [facility] MCHC (RBC) [Mass/Vol] 31.9 g/dL Low 32.0 - 36.0 g/dL [facility] MCV (RBC) [Entitic vol] 90 fL 80 - 100 fL [facility] Monocytes (Bld) [#/Vol] 0.69 10*3/uL [facility] Monocytes/100 WBC (Bld) 8.4 % 2.0 - 10.0 % [facility] Neutrophils (Bld) [#/Vol] 5.47 10*3/uL [facility] Comment on above: Percent differential counts (%) should be interpreted in the context of the absolute cell counts (cells/uL). Neutrophils/100 WBC (Bld) 66.8 % 40.0 - 80.0 % [facility] Nucleated RBC/100 WBC (Bld) [Ratio] 0.0 % [facility] Platelets (Bld) [#/Vol] 234 10*3/uL [facility] RBC (Bld) [#/Vol] 4.27 10*6/uL [facility] WBC (Bld) [#/Vol] 8.2 10*3/uL [facility] No Panel Informationon 04-08 CT HEAD: 1. No evidence of hemorrhage, CT apparent transcortical infarct, or other acute intracranial abnormality. 2. Patchy and confluence areas of diminished attenuation are again present in the periventricular and subcortical white matter of bilateral cerebral hemispheres, similar in appearance to prior exam on January of 2024, nonspecific findings possibly representing sequela of demyelinating processes or chronic microvascular disease, among other etiologies. CT C-SPINE: 1. No evidence of acute trauma to the cervical spine. 2. Subtle degenerative changes of the cervical spine, with mild spinal canal narrowing suspected at the level of C5-C6 due to disc osteophyte complex and ligamentum flavum thickening. MACRO: None Signed by: Jan Morales 04/08/2024 11:36 PM Dictation workstation: [id number] MMODAL Interpreted By: Jan Morales, STUDY: CT HEAD WO IV CONTRAST; CT CERVICAL SPINE WO IV CONTRAST; 04/08/2024 11:05 pm INDICATION: Signs/Symptoms:weakness of right wrist, numbness of right hand. COMPARISON: CT head and cervical spine dated 02/02/2024; MRI of the brain dated 12/28/2021; MRI of the cervical spine dated 12/13/2021;. ACCESSION NUMBER(S): [id number]; [id number] ORDERING CLINICIAN: JERROD HALE TECHNIQUE: Noncontrast axial CT scan of head was performed, with coronal and sagittal reformats provided. The images were reviewed in bone, brain, blood and soft tissue windows. Axial CT images of the cervical spine are obtained. Axial, coronal and sagittal reconstructions are provided for review. FINDINGS: CT HEAD: No hyperdense intracranial hemorrhage is evident. There is no mass effect or midline shift. Patchy and confluence areas of diminished attenuation are again present in the periventricular and subcortical white matter of bilateral cerebral hemispheres, similar in appearance to prior exam in January of 2024. No ventricular dilatation is present. Basal cisterns are patent. No extra-axial collections are identified. Scalp soft tissues do not demonstrate any acute abnormality. Calvarium is unremarkable in appearance. Mastoid air cells and middle ear cavities are clear. Small amount of frothy secretions are present in the sphenoid sinus, otherwise visualized paranasal sinuses are clear. CT C-SPINE: There is some reversal normal lordotic curvature of the cervical spine, without evidence of significant spondylolisthesis. Cervical vertebral body heights are preserved without evidence of compression fractures. Posterior elements of the cervical spine do not demonstrate any evidence of trauma. No abnormal intra spinous distance widening or displaced transverse or spinous process fractures are identified. Craniocervical junction is intact. Facet joints are preserved without evidence of subluxation or perching. Mild intervertebral disc height loss is present at C5-C6. Mild spinal canal narrowing is suspected at C5-C6 due to disc osteophyte complex and ligamentum flavum thickening. Mild neural foraminal narrowing may be present at C5-C6 due to endplate spurring and hypertrophic uncovertebral and facet joint changes. 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 Tracheostomy cannula is in place, similar in appearance to prior exam. Included lung apices are stable in appearance to prior exam. [facility] MMODAL John Morales v, MD - 04/08/2024 Interpreted By: Jan Morales, STUDY: CT HEAD WO IV CONTRAST; CT CERVICAL SPINE WO IV CONTRAST; 04/08/2024 11:05 pm INDICATION: Signs/Symptoms:weakness of right wrist, numbness of right hand. COMPARISON: CT head and cervical spine dated 02/02/2024; MRI of the brain dated 12/28/2021; MRI of the cervical spine dated 12/13/2021;. ACCESSION NUMBER(S): [id number]; [id number] ORDERING CLINICIAN: JERROD HALE TECHNIQUE: Noncontrast axial CT scan of head was performed, with coronal and sagittal reformats provided. The images were reviewed in bone, brain, blood and soft tissue windows. Axial CT images of the cervical spine are obtained. Axial, coronal and sagittal reconstructions are provided for review. FINDINGS: CT HEAD: No hyperdense intracranial hemorrhage is evident. There is no mass effect or midline shift. Patchy and confluence areas of diminished attenuation are again present in the periventricular and subcortical white matter of bilateral cerebral hemispheres, similar in appearance to prior exam in January of 2024. No ventricular dilatation is present. Basal cisterns are patent. No extra-axial collections are identified. Scalp soft tissues do not demonstrate any acute abnormality. Calvarium is unremarkable in appearance. Mastoid air cells and middle ear cavities are clear. Small amount of frothy secretions are present in the sphenoid sinus, otherwise visualized paranasal sinuses are clear. CT C-SPINE: There is some reversal normal lordotic curvature of the cervical spine, without evidence of significant spondylolisthesis. Cervical vertebral body heights are preserved without evidence of compression fractures. Posterior elements of the cervical spine do not demonstrate any evidence of trauma. No abnormal intra spinous distance widening or displaced transverse or spinous process fractures are identified. Craniocervical junction is intact. Facet joints are preserved without evidence of subluxation or perching. Mild intervertebral disc height loss is present at C5-C6. Mild spinal canal narrowing is suspected at C5-C6 due to disc osteophyte complex and ligamentum flavum thickening. Mild neural foraminal narrowing may be present at C5-C6 due to endplate spurring and hypertrophic uncovertebral and facet joint changes. 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 Tracheostomy cannula is in place, similar in appearance to prior exam. Included lung apices are stable in appearance to prior exam. IMPRESSION: CT HEAD: 1. No evidence of hemorrhage, CT apparent transcortical infarct, or other acute intracranial abnormality. 2. Patchy and confluence areas of diminished attenuation are again present in the periventricular and subcortical white matter of bilateral cerebral hemispheres, similar in appearance to prior exam on January of 2024, nonspecific findings possibly representing sequela of demyelinating processes or chronic microvascular disease, among other etiologies. CT C-SPINE: 1. No evidence of acute trauma to the cervical spine. 2. Subtle degenerative changes of the cervical spine, with mild spinal canal narrowing suspected at the level of C5-C6 due to disc osteophyte complex and ligamentum flavum thickening. MACRO: None Signed by: Jan Morales 04/08/2024 11:36 PM Dictation workstation: [id number] [facility] Work Phone: Radiology Study observation (narrative) [facility] Work Phone: No Panel InformationOrdered By: Jan Morales on 04-08-2024 [facility] Work Phone: Basic Metabolic Profile (BMP )on 03-25-2024 BUN Normal 7-18 [facility] Comment on above: Result Comment: Canc elled via OM: Order cancelled - Patient discharged Performed By: #### L 500.2500, L100.0100 ####[facility] [address] [place], [address] BUN/CRE Normal 10-20 [facility] Comment on above: Result Comment: Canc elled via OM: Order cancelled - Patient discharged Performed By: #### L 500.2500, L100.0100 ####[facility] [address] [place], [address] CA,Total Normal 8.5-10.1 [facility] Comment on above: Result Comment: Canc elled via OM: Order cancelled - Patient discharged Performed By: #### L 500.2500, L100.0100 ####[facility] [address] [place], [address] CL Normal 98-107 [facility] Comment on above: Result Comment: Canc elled via OM: Order cancelled - Patient discharged Performed By: #### L 500.2500, L100.0100 ####[facility] [address] [place], [address] CO2 Normal 21.0-32.0 [facility] Comment on above: Result Comment: Canc elled via OM: Order cancelled - Patient discharged Performed By: #### L 500.2500, L100.0100 ####[facility] [address] [place], [address] CREAT,SERUM Normal 0.55-1.02 [facility] Comment on above: Result Comment: Canc elled via OM: Order cancelled - Patient discharged Performed By: #### L 500.2500, L100.0100 ####[facility] [address] [place], [address] EST GFR Normal >60 [facility] Comment on above: Result Comment: Canc elled via OM: Order cancelled - Patient discharged Performed By: #### L 500.2500, L100.0100 ####[facility] [address] [place], [address] EST GFR - AA Normal >60 [facility] Comment on above: Result Comment: Canc elled via OM: Order cancelled - Patient discharged Performed By: #### L 500.2500, L100.0100 ####[facility] [address] [place], [address] GAP Normal 5-15 [facility] Comment on above: Result Comment: Canc elled via OM: Order cancelled - Patient discharged Performed By: #### L 500.2500, L100.0100 ####[facility] [address] [place], [address] GLU Normal 74-106 [facility] Comment on above: Result Comment: Canc elled via OM: Order cancelled - Patient discharged Performed By: #### L 500.2500, L100.0100 ####[facility] [address] [place], [address] Potassium Normal 3.5-5.1 [facility] Comment on above: Result Comment: Canc elled via OM: Order cancelled - Patient discharged Performed By: #### L 500.2500, L100.0100 ####[facility] [address] [place], [address] Basic Metabolic Profile (BMP) Normal 136-145 [facility] Comment on above: Result Comment: Canc elled via OM: Order cancelled - Patient discharged Performed By: #### L 500.2500, L100.0100 ####[facility] [address] [place], [address] CBC W/Diff, Automatedon 05-0 6-2023 Absolute Neut Normal 2.0-7.7 [facility] Comment on above: Result Comment: Canc elled via OM: Order cancelled - Patient discharged Performed By: #### L 500.2500, L100.0100 ####[facility] [address] [place], [address] HCT Normal 37-47 [facility] Comment on above: Result Comment: Canc elled via OM: Order cancelled - Patient discharged Performed By: #### L 500.2500, L100.0100 ####[facility] [address] [place], [address] HGB Normal 12.0-15.0 [facility] Comment on above: Result Comment: Canc elled via OM: Order cancelled - Patient discharged Performed By: #### L 500.2500, L100.0100 ####[facility] [address] [place], [address] MCH Normal 27.0-32.0 [facility] Comment on above: Result Comment: Canc elled via OM: Order cancelled - Patient discharged Performed By: #### L 500.2500, L100.0100 ####[facility] [address] [place], [address] MCHC Normal 32-36 [facility] Comment on above: Result Comment: Canc elled via OM: Order cancelled - Patient discharged Performed By: #### L 500.2500, L100.0100 ####[facility] [address] [place], [address] MCV Normal 81-99 [facility] Comment on above: Result Comment: Canc elled via OM: Order cancelled - Patient discharged Performed By: #### L 500.2500, L100.0100 ####[facility] [address] [place], [address] NEUT% Normal 47-70 [facility] Comment on above: Result Comment: Canc elled via OM: Order cancelled - Patient discharged Performed By: #### L 500.2500, L100.0100 ####[facility] [address] [place], [address] PLT Normal 150-450 [facility] Comment on above: Result Comment: Canc elled via OM: Order cancelled - Patient discharged Performed By: #### L 500.2500, L100.0100 ####[facility] [address] [place], [address] RBC Normal 4.2-5.4 [facility] Comment on above: Result Comment: Canc elled via OM: Order cancelled - Patient discharged Performed By: #### L 500.2500, L100.0100 ####[facility] [address] [place], [address] RDW CV Normal 11.6-14.6 [facility] Comment on above: Result Comment: Canc elled via OM: Order cancelled - Patient discharged Performed By: #### L 500.2500, L100.0100 ####[facility] [address] [place], [address] RDW SD Normal 35.1-43.9 [facility] Comment on above: Result Comment: Canc elled via OM: Order cancelled - Patient discharged Performed By: #### L 500.2500, L100.0100 ####[facility] [address] [place], [address] WBC Normal 4.4-11.0 [facility] Comment on above: Result Comment: Canc elled via OM: Order cancelled - Patient discharged Performed By: #### L 500.2500, L100.0100 ####[facility] [address] [place], [address] Basic Metabolic Profile (BMP )on 03-24-2024 BUN Normal 7-18 [facility] Comment on above: Result Comment: Canc elled via OM: Order cancelled - Patient discharged Performed By: #### L 500.2500, L100.0100 ####[facility] [address] [place], [address] BUN/CRE Normal 10-20 [facility] Comment on above: Result Comment: Canc elled via OM: Order cancelled - Patient discharged Performed By: #### L 500.2500, L100.0100 ####[facility] [address] [place], [address] CA,Total Normal 8.5-10.1 [facility] Comment on above: Result Comment: Canc elled via OM: Order cancelled - Patient discharged Performed By: #### L 500.2500, L100.0100 ####[facility] [address] [place], [address] CL Normal 98-107 [facility] Comment on above: Result Comment: Canc elled via OM: Order cancelled - Patient discharged Performed By: #### L 500.2500, L100.0100 ####[facility] [address] [place], [address] CO2 Normal 21.0-32.0 [facility] Comment on above: Result Comment: Canc elled via OM: Order cancelled - Patient discharged Performed By: #### L 500.2500, L100.0100 ####[facility] [address] [place], [address] CREAT,SERUM Normal 0.55-1.02 [facility] Comment on above: Result Comment: Canc elled via OM: Order cancelled - Patient discharged Performed By: #### L 500.2500, L100.0100 ####[facility] [address] [place], [address] EST GFR Normal >60 [facility] Comment on above: Result Comment: Canc elled via OM: Order cancelled - Patient discharged Performed By: #### L 500.2500, L100.0100 ####[facility] [address] [place], [address] EST GFR - AA Normal >60 [facility] Comment on above: Result Comment: Canc elled via OM: Order cancelled - Patient discharged Performed By: #### L 500.2500, L100.0100 ####[facility] [address] [place], [address] GAP Normal 5-15 [facility] Comment on above: Result Comment: Canc elled via OM: Order cancelled - Patient discharged Performed By: #### L 500.2500, L100.0100 ####[facility] [address] [place], [address] GLU Normal 74-106 [facility] Comment on above: Result Comment: Canc elled via OM: Order cancelled - Patient discharged Performed By: #### L 500.2500, L100.0100 ####[facility] [address] [place], [address] Potassium Normal 3.5-5.1 [facility] Comment on above: Result Comment: Canc elled via OM: Order cancelled - Patient discharged Performed By: #### L 500.2500, L100.0100 ####[facility] [address] [place], [address] Basic Metabolic Profile (BMP) Normal 136-145 [facility] Comment on above: Result Comment: Canc elled via OM: Order cancelled - Patient discharged Performed By: #### L 500.2500, L100.0100 ####[facility] [address] [place], [address] CBC W/Diff, Automatedon 05-0 -2023 Absolute Neut Normal 2.0-7.7 [facility] Comment on above: Result Comment: Canc elled via OM: Order cancelled - Patient discharged Performed By: #### L 500.2500, L100.0100 ####[facility] [address] [place], [address] HCT Normal 37-47 [facility] Comment on above: Result Comment: Canc elled via OM: Order cancelled - Patient discharged Performed By: #### L 500.2500, L100.0100 ####[facility] [address] [place], [address] HGB Normal 12.0-15.0 [facility] Comment on above: Result Comment: Canc elled via OM: Order cancelled - Patient discharged Performed By: #### L 500.2500, L100.0100 ####[facility] [address] [place], [address] MCH Normal 27.0-32.0 [facility] Comment on above: Result Comment: Canc elled via OM: Order cancelled - Patient discharged Performed By: #### L 500.2500, L100.0100 ####[facility] [address] [place], [address] MCHC Normal 32-36 [facility] Comment on above: Result Comment: Canc elled via OM: Order cancelled - Patient discharged Performed By: #### L 500.2500, L100.0100 ####[facility] [address] [place], [address] MCV Normal 81-99 [facility] Comment on above: Result Comment: Canc elled via OM: Order cancelled - Patient discharged Performed By: #### L 500.2500, L100.0100 ####[facility] [address] [place], [address] NEUT% Normal 47-70 [facility] Comment on above: Result Comment: Canc elled via OM: Order cancelled - Patient discharged Performed By: #### L 500.2500, L100.0100 ####[facility] [address] [place], [address] PLT Normal 150-450 [facility] Comment on above: Result Comment: Canc elled via OM: Order cancelled - Patient discharged Performed By: #### L 500.2500, L100.0100 ####[facility] [address] [place], [address] RBC Normal 4.2-5.4 [facility] Comment on above: Result Comment: Canc elled via OM: Order cancelled - Patient discharged Performed By: #### L 500.2500, L100.0100 ####[facility] [address] [place], [address] RDW CV Normal 11.6-14.6 [facility] Comment on above: Result Comment: Canc elled via OM: Order cancelled - Patient discharged Performed By: #### L 500.2500, L100.0100 ####[facility] [address] [place], [address] RDW SD Normal 35.1-43.9 [facility] Comment on above: Result Comment: Canc elled via OM: Order cancelled - Patient discharged Performed By: #### L 500.2500, L100.0100 ####[facility] [address] [place], [address] WBC Normal 4.4-11.0 [facility] Comment on above: Result Comment: Canc elled via OM: Order cancelled - Patient discharged Performed By: #### L 500.2500, L100.0100 ####[facility] [address] [place], [address] CBC W/Diff, Automatedon 05-0 -2023 Absolute Neut Normal 2.0-7.7 [facility] Comment on above: Result Comment: Canc elled via OM: Order cancelled - Patient discharged Performed By: #### L 100.0100 ####[facility] [address] [place], [address] HCT Normal 37-47 [facility] Comment on above: Result Comment: Canc elled via OM: Order cancelled - Patient discharged Performed By: #### L 100.0100 ####[facility] [address] [place], [address] HGB Normal 12.0-15.0 [facility] Comment on above: Result Comment: Canc elled via OM: Order cancelled - Patient discharged Performed By: #### L 100.0100 ####[facility] [address] [place], [address] MCH Normal 27.0-32.0 [facility] Comment on above: Result Comment: Canc elled via OM: Order cancelled - Patient discharged Performed By: #### L 100.0100 ####[facility] [address] [place], [address] MCHC Normal 32-36 [facility] Comment on above: Result Comment: Canc elled via OM: Order cancelled - Patient discharged Performed By: #### L 100.0100 ####[facility] [address] [place], [address] MCV Normal 81-99 [facility] Comment on above: Result Comment: Canc elled via OM: Order cancelled - Patient discharged Performed By: #### L 100.0100 ####[facility] [address] [place], [address] NEUT% Normal 47-70 [facility] Comment on above: Result Comment: Canc elled via OM: Order cancelled - Patient discharged Performed By: #### L 100.0100 ####[facility] [address] [place], [address] PLT Normal 150-450 [facility] Comment on above: Result Comment: Canc elled via OM: Order cancelled - Patient discharged Performed By: #### L 100.0100 ####[facility] [address] [place], [address] RBC Normal 4.2-5.4 [facility] Comment on above: Result Comment: Canc elled via OM: Order cancelled - Patient discharged Performed By: #### L 100.0100 ####[facility] [address] [place], [address] RDW CV Normal 11.6-14.6 [facility] Comment on above: Result Comment: Canc elled via OM: Order cancelled - Patient discharged Performed By: #### L 100.0100 ####[facility] [address] [place], [address] RDW SD Normal 35.1-43.9 [facility] Comment on above: Result Comment: Canc elled via OM: Order cancelled - Patient discharged Performed By: #### L 100.0100 ####[facility] [address] [place], [address] WBC Normal 4.4-11.0 [facility] Comment on above: Result Comment: Canc elled via OM: Order cancelled - Patient discharged Performed By: #### L 100.0100 ####[facility] [address] [place], [address] Absolute lymphocyte countOrd ered By: Rodrigo Newsome on 03-22-2024 Lymphocytes Auto (Unsp spec) [#/Vol] 1.50 10*3/uL 0.83-4.51 [facility] Automated lymphocyte count a s percentage of total leukocytesOrdered By: Rodrigo Newsome on 03-22-2024 Lymphocytes/100 WBC Auto (Unsp spec) 29.9 % 19-41 [facility] Basic Metabolic Profile (BMP )on 03-22-2024 BUN/CRE 7.7 RATIO Low 10-20 [facility] Comment on above: Performed By: #### L 500.2500, L506.0400, L100.0100, L501.9520 ####[facility] [address] [place], [address] CA,Total 8.4 mg/dL Low 8.5-10.1 [facility] Comment on above: Performed By: #### L 500.2500, L506.0400, L100.0100, L501.9520 ####[facility] [address] [place], [address] Chloride [Moles/Vol] 111 mmol/L High 98-107 [facility] Comment on above: Performed By: #### L 500.2500, L506.0400, L100.0100, L501.9520 ####[facility] [address] [place], [address] CO2 [Moles/Vol] 28.0 mmol/L Normal 21.0-32.0 [facility] Comment on above: Performed By: #### L 500.2500, L506.0400, L100.0100, L501.9520 ####[facility] [address] [place], [address] Creatinine [Mass/Vol] 1.04 mg/dL High 0.55-1.02 [facility] Comment on above: Result Comment: The validity of the calculated GFR GFRAA in patients over 70 years has not been determined. Clinical correlation is essential. Performed By: #### L 500.2500, L506.0400, L100.0100, L501.9520 ####[facility] [address] [place], [address] ECRCL 63.82 ml/min Normal [facility] Comment on above: Performed By: #### L 500.2500, L506.0400, L100.0100, L501.9520 ####[facility] [facility] [address] [place], [address] EST GFR - AA 71 mL/min Normal >60 [facility] Comment on above: Result Comment: Afri can [place] GFR Calc Performed By: #### L 500.2500, L506.0400, L100.0100, L501.9520 ####[facility] [address] [place], [address] GAP 2 Low 5-15 [facility] Comment on above: Performed By: #### L 500.2500, L506.0400, L100.0100, L501.9520 ####[facility] [address] [place], [address] GFR/1.73 sq M.predicted among non-blacks MDRD (S/P/Bld) [Vol rate/Area] 59 mL/min/{1.73_m2} Low >60 [facility] Comment on above: Result Comment: Non- GFR Calc Performed By: #### L 500.2500, L506.0400, L100.0100, L501.9520 ####[facility] [address] [place], [address] Glucose [Mass/Vol] 100 mg/dL Normal 74-106 [facility] Comment on above: Result Comment: Fast ing Glucose result from 100 to 125 mg/dL suggests IMPAIRED HOMEOSTASIS per A.D.A. criteria. Performed By: #### L 500.2500, L506.0400, L100.0100, L501.9520 ####[facility] [address] [place], [address] Potassium [Moles/Vol] 3.8 mmol/L Normal 3.5-5.1 [facility] Comment on above: Performed By: #### L 500.2500, L506.0400, L100.0100, L501.9520 ####[facility] [address] [place], [address] Sodium [Moles/Vol] 141 mmol/L Normal 136-145 [facility] Comment on above: Performed By: #### L 500.2500, L506.0400, L100.0100, L501.9520 ####[facility] [address] [place], [address] Urea nitrogen [Mass/Vol] 8 mg/dL Normal 7-18 [facility] Comment on above: Performed By: #### L 500.2500, L506.0400, L100.0100, L501.9520 ####[facility] [address] [place], [place], [id number] Basophil percentageOrdered B y: Rodrigo Newsome on 03-22-2024 Basophils/100 WBC (Bld) 1.4 % 0-1 [facility] Chloride [Moles/Vol] 111 mmol/L 98-107 [facility] Eosinophils/100 WBC (Bld) 3.2 % 0-5 [facility] Glucose [Mass/Vol] 100 mg/dL 74-106 [facility] Comment on above: Fasting Glucose resu lt from 100 to 125 mg/dL suggests IMPAIRED HOMEOSTASIS per A.D.A. criteria. Hemoglobin (Bld) [Mass/Vol] 10.7 g/dL 12.0-15.0 [facility] Monocytes/100 WBC (Bld) 8.2 % 0-10 [facility] Neutrophils (Bld) [#/Vol] 2.9 10*3/uL 2.0-7.7 [facility] Neutrophils/100 WBC (Bld) 56.9 % 47-70 [facility] Potassium [Moles/Vol] 3.8 mmol/L 3.5-5.1 [facility] Sodium [Moles/Vol] 141 mmol/L 136-145 [facility] WBC (Bld) [#/Vol] 5.0 10*3/uL 4.4-11.0 [facility] CBC W/Diff, Automatedon 05-0 Absolute Lymph 1.50 X10 3/uL Normal 0.83-4.51 [facility] Comment on above: Performed By: #### L 500.2500, L506.0400, L100.0100, L501.9520 ####[facility] [address] [place], [place], [id number] Absolute Neut 2.9 X10 3/uL Normal 2.0-7.7 [facility] Comment on above: Performed By: #### L 500.2500, L506.0400, L100.0100, L501.9520 ####[facility] [address] [place], [address] Basophils/100 WBC (Bld) 1.4 % High 0-1 [facility] Comment on above: Performed By: #### L 500.2500, L506.0400, L100.0100, L501.9520 ####[facility] [address] [place], [address] Eosinophils/100 WBC (Bld) 3.2 % Normal 0-5 [facility] Comment on above: Performed By: #### L 500.2500, L506.0400, L100.0100, L501.9520 ####[facility] [address] [place], [address] Erythrocyte distribution width (RBC) [Ratio] 15.2 % High 11.6-14.6 [facility] Comment on above: Performed By: #### L 500.2500, L506.0400, L100.0100, L501.9520 ####[facility] [address] [place], [address] Hematocrit (Bld) [Volume fraction] 34.2 % Low 37-47 [facility] Comment on above: Performed By: #### L 500.2500, L506.0400, L100.0100, L501.9520 ####[facility] [address] [place], [address] Hemoglobin (Bld) [Mass/Vol] 10.7 g/dL Low 12.0-15.0 [facility] Comment on above: Performed By: #### L 500.2500, L506.0400, L100.0100, L501.9520 ####[facility] [address] [place], [address] IG% 0.400 Normal 0.0-0.9 [facility] Comment on above: Result Comment: IG% - Immature Granulocytes (promyelocytes, myelocytes and metamyelocytes) > 1% indicates that a LEFT SHIFT is Present. Performed By: #### L 500.2500, L506.0400, L100.0100, L501.9520 ####[facility] [address] [place], [address] Lymphocytes/100 WBC (Bld) 29.9 % Normal 19-41 [facility] Comment on above: Performed By: #### L 500.2500, L506.0400, L100.0100, L501.9520 ####[facility] [address] [place], [address] MCH (RBC) [Entitic mass] 27.9 pg Normal 27.0-32.0 [facility] Comment on above: Performed By: #### L 500.2500, L506.0400, L100.0100, L501.9520 ####[facility] [address] [place], [address] MCHC (RBC) [Mass/Vol] 31.3 g/dL Low 32-36 [facility] Comment on above: Performed By: #### L 500.2500, L506.0400, L100.0100, L501.9520 ####[facility] [address] [place], [address] MCV (RBC) [Entitic vol] 89.3 fL Normal 81-99 [facility] Comment on above: Performed By: #### L 500.2500, L506.0400, L100.0100, L501.9520 ####[facility] [address] [place], [address] Monocytes/100 WBC (Bld) 8.2 % Normal 0-10 [facility] Comment on above: Performed By: #### L 500.2500, L506.0400, L100.0100, L501.9520 ####[facility] [address] [place], [address] Neutrophils/100 WBC (Bld) 56.9 % Normal 47-70 [facility] Comment on above: Performed By: #### L 500.2500, L506.0400, L100.0100, L501.9520 ####[facility] [address] [place], [address] Nucleated RBC (Bld) [#/Vol] 0 10*3/uL Normal 0-5 [facility] Comment on above: Performed By: #### L 500.2500, L506.0400, L100.0100, L501.9520 ####[facility] [address] [place], [address] Platelet mean volume (Bld) [Entitic vol] 10.0 fL Normal 6.2-12.0 [facility] Comment on above: Performed By: #### L 500.2500, L506.0400, L100.0100, L501.9520 ####[facility] [address] [place], [address] Platelets (Bld) [#/Vol] 231 10*3/uL Normal 150-450 [facility] Comment on above: Performed By: #### L 500.2500, L506.0400, L100.0100, L501.9520 ####[facility] [address] [place], [address] RBC (Bld) [#/Vol] 3.83 10*6/uL Low 4.2-5.4 [facility] Comment on above: Performed By: #### L 500.2500, L506.0400, L100.0100, L501.9520 ####[facility] [address] [place], [address] RDW SD 49.4 fl High 35.1-43.9 [facility] Comment on above: Performed By: #### L 500.2500, L506.0400, L100.0100, L501.9520 ####[facility] [address] [place], [address] WBC (Bld) [#/Vol] 5.0 10*3/uL Normal 4.4-11.0 [facility] Comment on above: Performed By: #### L 500.2500, L506.0400, L100.0100, L501.9520 ####[facility] [address] [place], [address] Determination of erythrocyte mean corpuscular volume (MCV)Ordered By: Rodrigo Newsome on 03-22-2024 MCV (RBC) [Entitic vol] 89.3 fL 81-99 [facility] Erythrocyte distribution wid th ratioOrdered By: Rodrigo Newsome on 03-22-2024 Erythrocyte distribution width (RBC) [Ratio] 15.2 % 11.6-14.6 [facility] Erythrocyte distribution wid th standard deviationOrdered By: Rodrigo Newsome on 03-22-2024 Erythrocyte distribution width (RBC) [Entitic vol] 49.4 fL 35.1-43.9 [facility] Hematocrit Auto (Bld) [Volum e fraction]Ordered By: Rodrigo Newsome on 03-22-2024 Hematocrit (Bld) [Volume fraction] 34.2 % 37-47 [facility] Immature granulocytes/100 WB C Auto (Bld)Ordered By: Rodrigo Newsome on 03-22-2024 Immature granulocytes/100 WBC (Bld) 0.400 % 0.0-0.9 [facility] Comment on above: IG% - Immature Granu locytes (promyelocytes, myelocytes and metamyelocytes) > 1% indicates that a LEFT SHIFT is Present. Laboratory - Chemistry and C hemistry - challengeOrdered By: Rodrigo Newsome on 03-22-2024 CO2 [Moles/Vol] 28.0 mmol/L 21.0-32.0 [facility] Urea nitrogen/Creatinine [Mass ratio] 7.7 mg/mg 10-20 [facility] Laboratory - Hematology and Cell countsOrdered By: Rodrigo Newsome on 03-22-2024 MCH (RBC) [Entitic mass] 27.9 pg 27.0-32.0 [facility] MCHC (RBC) [Mass/Vol] 31.3 g/dL 32-36 [facility] Nucleated RBC/100 WBC (Bld) [Ratio] 0 % 0-5 [facility] Platelet mean volume (Bld) [Entitic vol] 10.0 fL 6.2-12.0 [facility] Platelets (Bld) [#/Vol] 231 10*3/uL 150-450 [facility] No Panel InformationOrdered By: Rodrigo Newsome on 03-22-2024 Estimated Creatinine Clearance Calc 63.82 ml/min [facility] Estimated GFR (MDRD) Amer 71 mL/min >60 [facility] Comment on above: GFR Calc Estimated GFR (MDRD) Non-Af Amer 59 mL/min >60 [facility] Comment on above: Non- GFR Calc RBC Auto (Bld) [#/Vol]Ordere d By: Rodrigo Newsome on 03-22-2024 RBC (Bld) [#/Vol] 3.83 10*6/uL 4.2-5.4 [facility] Serum or plasma calcium alessandro urement (mass/volume)Ordered By: Rodrigo Newsome on 03-22-2024 Calcium [Mass/Vol] 8.4 mg/dL 8.5-10.1 [facility] Serum or plasma creatinine m easurement (mass/volume)Ordered By: Rodrigo Newsome on 03-22-2024 Creatinine [Mass/Vol] 1.04 mg/dL 0.55-1.02 [facility] Comment on above: The validity of the calculated GFR & GFRAA in patients over 70 years has not been determined. Clinical correlation is essential. Serum or plasma thyroid stim ulating hormone (TSH) measurement (units/volume)Ordered By: Rodrigo Newsome on 03-22-2024 TSH Qn 3.03 uIU/mL 0.358-3.74 [facility] Serum or plasma urea nitroge n measurement (mass/volume)Ordered By: Rodrigo Newsome on 03-22-2024 Urea nitrogen [Mass/Vol] 8 mg/dL 7-18 [facility] T4 Free Directon 03-22-2024 T4 FREE DIRECT 1.14 ng/dL Normal 0.76-1.46 [facility] Comment on above: Performed By: #### L 500.2500, L506.0400, L100.0100, L501.9520 ####[facility] [address] [place], [place], [id number] Thin prep Papanicolaou smear with manual screeningOrdered By: Rodrigo Newsome on 03-22-2024 Thin prep Papanicolaou smear with manual screening 2 5-15 [facility] Thin prep Papanicolaou smear with manual screening 1.14 ng/dL 0.76-1.46 [facility] Thyroid Stim Hormone (TSH)on 03-22-2024 TSH 3.03 uIU/mL Normal 0.358-3.74 [facility] Comment on above: Performed By: #### L 500.2500, L506.0400, L100.0100, L501.9520 ####[facility] [address] [place], [place], [id number] Absolute lymphocyte countOrd ered By: Kimberly Black on 03-21-2024 Lymphocytes Auto (Unsp spec) [#/Vol] 2.32 10*3/uL 0.83-4.51 [facility] Alcohol, Blood (Medical)-Ser umon 03-21-2024 SERUM ETOH 170.0 mg/dL Normal [facility] Comment on above: Result Comment: The serum:whole blood ethanol ratio is approximately 1.14 and varies slightly with hematocrit. Medical Alcohol reference interval and critical value in non-tolerant individuals; 50 - 100 Impairment 100 Intoxication 100 - 250 Severe Poisoning 250 - 400 Deep/possible fatal coma Performed By: #### L 501.9100, L505.5000, L100.0100, L500.4050, L700.6800 #### [facility] [address] [place], [place], [id number] Automated lymphocyte count a s percentage of total leukocytesOrdered By: Kimberly Black on 03-21-2024 Lymphocytes/100 WBC Auto (Unsp spec) 29.5 % 19-41 [facility] Basophil percentageOrdered B y: Rodrigo Newsome on 03-21-2024 Basophil percentage 3.6 mg/dL 2.5-4.9 [facility] Basophil percentageOrdered B y: Kimberly Black on 03-21-2024 Basophils/100 WBC (Bld) 1.0 % 0-1 [facility] Bilirubin [Mass/Vol] 0.30 mg/dL 0.20-1.00 [facility] Comment on above: For patients on eltr ombopag therapy, use of Dimension [place] TBIL is not recommended. Chloride [Moles/Vol] 105 mmol/L 98-107 [facility] Eosinophils/100 WBC (Bld) 2.8 % 0-5 [facility] Glucose [Mass/Vol] 92 mg/dL 74-106 [facility] Hemoglobin (Bld) [Mass/Vol] 12.0 g/dL 12.0-15.0 [facility] Monocytes/100 WBC (Bld) 5.7 % 0-10 [facility] Neutrophils (Bld) [#/Vol] 4.8 10*3/uL 2.0-7.7 [facility] Neutrophils/100 WBC (Bld) 60.5 % 47-70 [facility] Potassium [Moles/Vol] 4.0 mmol/L 3.5-5.1 [facility] Protein [Mass/Vol] 6.3 g/dL 6.4-8.2 [facility] Sodium [Moles/Vol] 140 mmol/L 136-145 [facility] WBC (Bld) [#/Vol] 7.9 10*3/uL 4.4-11.0 [facility] CBC W/Diff, Automatedon 05- Absolute Lymph 2.32 X10 3/uL Normal 0.83-4.51 [facility] Comment on above: Performed By: #### L 501.9100, L505.5000, L100.0100, L500.4050, L700.6800 #### [facility] [address] [place], [place] [address] [place], [place], [id number] Absolute Neut 4.8 X10 3/uL Normal 2.0-7.7 [facility] Comment on above: Performed By: #### L 501.9100, L505.5000, L100.0100, L500.4050, L700.6800 #### [facility] [address] [place], [address] Basophils/100 WBC (Bld) 1.0 % Normal 0-1 [facility] Comment on above: Performed By: #### L 501.9100, L505.5000, L100.0100, L500.4050, L700.6800 #### [facility] [address] [place], [address] Eosinophils/100 WBC (Bld) 2.8 % Normal 0-5 [facility] Comment on above: Performed By: #### L 501.9100, L505.5000, L100.0100, L500.4050, L700.6800 #### [facility] [address] [place], [address] Erythrocyte distribution width (RBC) [Ratio] 14.8 % High 11.6-14.6 [facility] Comment on above: Performed By: #### L 501.9100, L505.5000, L100.0100, L500.4050, L700.6800 #### [facility] [address] [place], [address] Hematocrit (Bld) [Volume fraction] 36.9 % Low 37-47 [facility] Comment on above: Performed By: #### L 501.9100, L505.5000, L100.0100, L500.4050, L700.6800 #### [facility] [address] [place], [address] Hemoglobin (Bld) [Mass/Vol] 12.0 g/dL Normal 12.0-15.0 [facility] Comment on above: Performed By: #### L 501.9100, L505.5000, L100.0100, L500.4050, L700.6800 #### [facility] [address] [place], [address] IG% 0.500 Normal 0.0-0.9 [facility] Comment on above: Result Comment: IG% - Immature Granulocytes (promyelocytes, myelocytes and metamyelocytes) > 1% indicates that a LEFT SHIFT is Present. Performed By: #### L 501.9100, L505.5000, L100.0100, L500.4050, L700.6800 #### [facility] [address] [place], [address] Lymphocytes/100 WBC (Bld) 29.5 % Normal 19-41 [facility] Comment on above: Performed By: #### L 501.9100, L505.5000, L100.0100, L500.4050, L700.6800 #### [facility] [address] [place], [address] MCH (RBC) [Entitic mass] 28.3 pg Normal 27.0-32.0 [facility] Comment on above: Performed By: #### L 501.9100, L505.5000, L100.0100, L500.4050, L700.6800 #### [facility] [address] [place], [address] MCHC (RBC) [Mass/Vol] 32.5 g/dL Normal 32-36 [facility] Comment on above: Performed By: #### L 501.9100, L505.5000, L100.0100, L500.4050, L700.6800 #### [facility] [address] [place], [address] MCV (RBC) [Entitic vol] 87.0 fL Normal 81-99 [facility] Comment on above: Performed By: #### L 501.9100, L505.5000, L100.0100, L500.4050, L700.6800 #### [facility] [address] [place], [address] Monocytes/100 WBC (Bld) 5.7 % Normal 0-10 [facility] Comment on above: Performed By: #### L 501.9100, L505.5000, L100.0100, L500.4050, L700.6800 #### [facility] [address] [place], [address] Neutrophils/100 WBC (Bld) 60.5 % Normal 47-70 [facility] Comment on above: Performed By: #### L 501.9100, L505.5000, L100.0100, L500.4050, L700.6800 #### [facility] [address] [place], [address] Nucleated RBC (Bld) [#/Vol] 0 10*3/uL Normal 0-5 [facility] Comment on above: Performed By: #### L 501.9100, L505.5000, L100.0100, L500.4050, L700.6800 #### [facility] [address] [place], [address] Platelet mean volume (Bld) [Entitic vol] 10.1 fL Normal 6.2-12.0 [facility] Comment on above: Performed By: #### L 501.9100, L505.5000, L100.0100, L500.4050, L700.6800 #### [facility] [address] [place], [address] Platelets (Bld) [#/Vol] 373 10*3/uL Normal 150-450 [facility] Comment on above: Performed By: #### L 501.9100, L505.5000, L100.0100, L500.4050, L700.6800 #### [facility] [address] [place], [address] RBC (Bld) [#/Vol] 4.24 10*6/uL Normal 4.2-5.4 [facility] Comment on above: Performed By: #### L 501.9100, L505.5000, L100.0100, L500.4050, L700.6800 #### [facility] [address] [place], [address] RDW SD 46.7 fl High 35.1-43.9 [facility] Comment on above: Performed By: #### L 501.9100, L505.5000, L100.0100, L500.4050, L700.6800 #### [facility] [address] [place], [address] WBC (Bld) [#/Vol] 7.9 10*3/uL Normal 4.4-11.0 [facility] Comment on above: Performed By: #### L 501.9100, L505.5000, L100.0100, L500.4050, L700.6800 #### [facility] [address] [place], [address] Comprehensive Metabolic [facility] 03-21-2024 Albumin [Mass/Vol] 3.0 g/dL Low 3.2-5.0 [facility] Comment on above: Performed By: #### L 501.9100, L505.5000, L100.0100, L500.4050, L700.6800 #### [facility] [address] [place], [address] Albumin/Globulin [Mass ratio] 0.9 {ratio} Normal 0.9-2.4 [facility] Comment on above: Performed By: #### L 501.9100, L505.5000, L100.0100, L500.4050, L700.6800 #### [facility] [address] [place], [address] ALK P 84 U/L Normal 45-117 [facility] Comment on above: Performed By: #### L 501.9100, L505.5000, L100.0100, L500.4050, L700.6800 #### [facility] [address] [place], [address] ALT [Catalytic activity/Vol] U/L Low 13-56 [facility] Comment on above: Performed By: #### L 501.9100, L505.5000, L100.0100, L500.4050, L700.6800 #### [facility] [address] [place], [address] AST [Catalytic activity/Vol] 13 U/L Low 15-37 [facility] Comment on above: Performed By: #### L 501.9100, L505.5000, L100.0100, L500.4050, L700.6800 #### [facility] [address] [place], [address] Bilirubin [Mass/Vol] 0.30 mg/dL Normal 0.20-1.00 [facility] Comment on above: Result Comment: For patients on eltrombopag therapy, use of Dimension [place] TBIL is not recommended. Performed By: #### L 501.9100, L505.5000, L100.0100, L500.4050, L700.6800 #### [facility] [address] [place], [address] BUN/CRE 6.7 RATIO Low 10-20 [facility] Comment on above: Performed By: #### L 501.9100, L505.5000, L100.0100, L500.4050, L700.6800 #### [facility] [address] [place], [address] CA,Total 8.9 mg/dL Normal 8.5-10.1 [facility] Comment on above: Performed By: #### L 501.9100, L505.5000, L100.0100, L500.4050, L700.6800 #### [facility] [address] [place], [address] Chloride [Moles/Vol] 105 mmol/L Normal 98-107 [facility] Comment on above: Performed By: #### L 501.9100, L505.5000, L100.0100, L500.4050, L700.6800 #### [facility] [address] [place], [address] CO2 [Moles/Vol] 27.0 mmol/L Normal 21.0-32.0 [facility] Comment on above: Performed By: #### L 501.9100, L505.5000, L100.0100, L500.4050, L700.6800 #### [facility] [address] [place], [address] Creatinine [Mass/Vol] 1.35 mg/dL High 0.55-1.02 [facility] Comment on above: Result Comment: The validity of the calculated GFR GFRAA in patients over 70 years has not been determined. Clinical correlation is essential. Performed By: #### L 501.9100, L505.5000, L100.0100, L500.4050, L700.6800 #### [facility] [address] [place], [address] EST GFR - AA 53 mL/min Low >60 [facility] Comment on above: Result Comment: Afri can [place] GFR Calc Performed By: #### L 501.9100, L505.5000, L100.0100, L500.4050, L700.6800 #### [facility] [address] [place], [address] GAP 8 Normal 5-15 [facility] Comment on above: Performed By: #### L 501.9100, L505.5000, L100.0100, L500.4050, L700.6800 #### [facility] [address] [place], [address] GFR/1.73 sq M.predicted among non-blacks MDRD (S/P/Bld) [Vol rate/Area] 44 mL/min/{1.73_m2} Low >60 [facility] Comment on above: Result Comment: Non- GFR Calc Performed By: #### L 501.9100, L505.5000, L100.0100, L500.4050, L700.6800 #### [facility] [address] [place], [address] Globulin (S) [Mass/Vol] 3.3 g/dL Normal 2.2-4.2 [facility] Comment on above: Performed By: #### L 501.9100, L505.5000, L100.0100, L500.4050, L700.6800 #### [facility] [address] [place], [address] Glucose [Mass/Vol] 92 mg/dL Normal 74-106 [facility] Comment on above: Performed By: #### L 501.9100, L505.5000, L100.0100, L500.4050, L700.6800 #### [facility] [address] [place], [address] Potassium [Moles/Vol] 4.0 mmol/L Normal 3.5-5.1 [facility] Comment on above: Performed By: #### L 501.9100, L505.5000, L100.0100, L500.4050, L700.6800 #### [facility] [address] [place], [address] Sodium [Moles/Vol] 140 mmol/L Normal 136-145 [facility] Comment on above: Performed By: #### L 501.9100, L505.5000, L100.0100, L500.4050, L700.6800 #### [facility] [address] [place], [address] T PROT 6.3 g/dL Low 6.4-8.2 [facility] Comment on above: Performed By: #### L 501.9100, L505.5000, L100.0100, L500.4050, L700.6800 #### [facility] [address] [place], [address] Urea nitrogen [Mass/Vol] 9 mg/dL Normal 7-18 [facility] Comment on above: Performed By: #### L 501.9100, L505.5000, L100.0100, L500.4050, L700.6800 #### [facility] [address] [place], [address] Determination of erythrocyte mean corpuscular volume (MCV)Ordered By: Kimberly Black on 03-21-2024 MCV (RBC) [Entitic vol] 87.0 fL 81-99 [facility] Emergency Department Summary on 03-21-2024 Emergency Department Summary [facility] Medical Records Department [address] [place] [address] Emergency Department Summary 03/21/24 MR#: [id number] Acct: [id number] Name: VJ MYERS Rep #: [id number] : 1970 53 From: David Granados PCP: CHARY Nava Status:ADM IN Location: ICU ICU08-1 HPI History of Present Illness Chief Complaint: Substance Abuse Narrative Narrative: Patient presenting today requesting detox from alcohol. She reports that she drinks a few times a week and usually drinks about a bottle of liquor each time. She last drank about half a bottle of rum prior to arrival. She denies any physical symptoms of withdrawal. She has detoxed in the past. Denies any other substance use, HI, SI, hallucinations. She denies any history of withdrawal seizure. Patient has a history of laryngeal cancer and has a tracheostomy, she has to use a ventilator at night. [facility] Medical History Alcohol use Anxiety Back pain Chest pain Chronic kidney disease (CKD) Chronic pain COPD (chronic obstructive pulmonary disease) Difficulty swallowing Essential hypertension Former smoker Gastric reflux GERD (gastroesophageal reflux disease) History of foreign body aspiration History of hiatal hernia History of pain when walking History of renal disease Hyperlipidemia Hypothyroidism Influenza A Kidney disease Larynx cancer Leg cramps Morbid obesity Obesity Restless legs Shortness of breath on exertion Thyroid disease Wears dentures Home Medications atorvastatin 10 mg tablet 20 mg PO QHS cholesterol 01/11/21 [History Last Taken 04/25/22] sertraline 50 mg tablet 75 mg PO DAILY depression 01/11/21 [History Last Taken 04/29/22] levothyroxine 112 mcg tablet 137 mcg PO DAILY THYROID 10/04/21 [History Last Taken 04/29/22] liothyronine 5 mcg tablet 10 mcg PO DAILY THYROID 10/04/21 [History Last Taken 04/29/22] losartan 100 mg-hydrochlorothiazide 25 mg tablet 1 tab PO DAILY BP 10/04/21 [History Last Taken 04/29/22] gabapentin 100 mg tablet 300 mg PO BID back pain 11/29/21 [History Last Taken 04/29/22] hydrocodone-acetaminoph en 5-325mg 5mg-325mg 1 tab PO Q8H PRN PRN Pain 04/26/22 [History Last Taken 04/29/22] hydroxyzine HCl 25 mg tablet 25 mg PO 4X/DAY PRN PRN Anxiety 04/26/22 [History Last Taken Unknown] albuterol sulfate 90 mcg/actuation aerosol inhaler (Ventolin HFA) 1 inh inhalation Q6H PRN shortness of breath or wheezing #8.5 grams 04/28/22 [Rx Last Taken Unknown] carvedilol 6.25 mg tablet 6.25 mg PO BID blood pressure 04/29/22 [History Last Taken 04/29/22] ipratropium 0.5 mg-albuterol 3 mg (2.5 mg base)/3 mL nebulization soln 3 ml inhalation Q4H PRN shortness of breath or wheezing #180 mL 05/04/22 [Rx Last Taken Unknown] amlodipine 10 mg tablet 10 mg PO DAILY 03/21/24 [History Last Taken Unknown] citalopram 10 mg tablet 20 mg PO DAILY 03/21/24 [History Last Taken Unknown] diflunisal 500 mg tablet 500 mg PO DAILY 03/21/24 [History Last Taken Unknown] folic acid 1 mg tablet 1 mg PO DAILY 03/21/24 [History Last Taken Unknown] magnesium oxide 400 mg (241.3 mg magnesium) tablet 400 mg PO DAILY 03/21/24 [History Last Taken Unknown] omeprazole 40 mg capsule,delayed release 40 mg PO DAILY 03/21/24 [History Last Taken Unknown] ondansetron HCl 4 mg tablet 4 mg PO Q4H PRN PRN nausea and vomiting 03/21/24 [History Last Taken Unknown] oxycodone-acetaminophen 5 mg-325 mg tablet 1 tab PO TID PRN PRN pain 03/21/24 [History Last Taken Unknown] Allergy/AdvReac Type Severity Reaction Status Date / Time adhesive tape [tape] Allergy Hives Verified 03/31/23 02:26 latex Allergy BLISTERS Verified 03/30/23 21:11 Iodinated Contrast Media AdvReac Hives Verified 03/30/23 21:11 [Iodinated Contrast Media - IV Dye] morphine AdvReac Nausea/Vom/ Verified 03/30/23 21:11 Diarrhea Family History Mother CVA (cerebral vascular accident) Heart disease Hypertension Sister Cancer Surgical History History of appendectomy History of laryngectomy History of tracheostomy Hx of cholecystectomy Hx of hernia repair Hx of hysterectomy Social History Smoking Status: Former smoker ROS ROS ED Constitutional Constitutional ED: Denies chills or fever(s) Cardiovascular Cardiovascular: Denies chest pain Respiratory/Chest Respiratory/Chest: Denies cough or dyspnea Gastrointestinal Gastrointestinal: Denies abdominal pain, nausea or vomiting Genitourinary Genitourinary ED: Denies dysuria, hematuria or urinary urgency Musculoskeletal Musculoskeletal: Denies arthralgias or myalgias Integumentary Denies rash Neurologic Neurologic: Denies weakness Psych (more content not included)... Normal [facility] Erythrocyte distribution wid th ratioOrdered By: Kimberly Black on 03-21-2024 Erythrocyte distribution width (RBC) [Ratio] 14.8 % 11.6-14.6 [facility] Erythrocyte distribution wid th standard deviationOrdered By: Kimberly Black on 03-21-2024 Erythrocyte distribution width (RBC) [Entitic vol] 46.7 fL 35.1-43.9 [facility] H AND P Exam - Hospitaliston 03-21-2024 H&P Exam - Hospitalist [facility] Medical Records Department [address] [place] [address] H P Exam - Hospitalist 03/21/24 1758 MR#: [id number] Acct: [id number] Name: VJ MYERS Rep #: [id number] : 1970 53 From: Rodrigo Newsome MD PCP: CHARY Nava Status:ADM IN Location: ICU [place] [address] HPI - General General Date of Admission: 03/21/24 Date of Service: 03/21/24 Chief Complaint: Came to ED for alcohol detox. HPI Narrative VJ MYERS, is a 53 F with history of laryngeal cancer status post tracheostomy on ventilator at night came to ED for help for alcohol detox. Patient drinks 1 bottle of vodka once a week but she reported to ED physician as few times a week. Last drink was half a bottle of from prior to arrival. She denies shaking, tremors, diarrhea, sweating hallucinations or other symptoms of alcohol withdrawal. Denies other substance use. No withdrawal seizure. She uses ventilator at night with 2 L of oxygen. She has history of COPD with history of chronic smoking but quit. [facility] Medical History Alcohol use Anxiety Back pain Chest pain Chronic kidney disease (CKD) Chronic pain COPD (chronic obstructive pulmonary disease) Difficulty swallowing Essential hypertension Former smoker Gastric reflux GERD (gastroesophageal reflux disease) History of foreign body aspiration History of hiatal hernia History of pain when walking History of renal disease Hyperlipidemia Hypothyroidism Influenza A Kidney disease Larynx cancer Leg cramps Morbid obesity Obesity Restless legs Shortness of breath on exertion Thyroid disease Wears dentures Home Medications atorvastatin 10 mg tablet 20 mg PO QHS cholesterol 01/11/21 [History Last Taken 04/25/22] sertraline 50 mg tablet 75 mg PO DAILY depression 01/11/21 [History Last Taken 04/29/22] levothyroxine 112 mcg tablet 137 mcg PO DAILY THYROID 10/04/21 [History Last Taken 04/29/22] liothyronine 5 mcg tablet 10 mcg PO DAILY THYROID 10/04/21 [History Last Taken 04/29/22] losartan 100 mg-hydrochlorothiazide 25 mg tablet 1 tab PO DAILY BP 10/04/21 [History Last Taken 04/29/22] gabapentin 100 mg tablet 300 mg PO BID back pain 11/29/21 [History Last Taken 04/29/22] hydrocodone-acetaminoph en 5-325mg 5mg-325mg 1 tab PO Q8H PRN PRN Pain 04/26/22 [History Last Taken 04/29/22] hydroxyzine HCl 25 mg tablet 25 mg PO 4X/DAY PRN PRN Anxiety 04/26/22 [History Last Taken Unknown] albuterol sulfate 90 mcg/actuation aerosol inhaler (Ventolin HFA) 1 inh inhalation Q6H PRN shortness of breath or wheezing #8.5 grams 04/28/22 [Rx Last Taken Unknown] carvedilol 6.25 mg tablet 6.25 mg PO BID blood pressure 04/29/22 [History Last Taken 04/29/22] ipratropium 0.5 mg-albuterol 3 mg (2.5 mg base)/3 mL nebulization soln 3 ml inhalation Q4H PRN shortness of breath or wheezing #180 mL 05/04/22 [Rx Last Taken Unknown] amlodipine 10 mg tablet 10 mg PO DAILY 03/21/24 [History Last Taken Unknown] citalopram 10 mg tablet 20 mg PO DAILY 03/21/24 [History Last Taken Unknown] diflunisal 500 mg tablet 500 mg PO DAILY 03/21/24 [History Last Taken Unknown] folic acid 1 mg tablet 1 mg PO DAILY 03/21/24 [History Last Taken Unknown] magnesium oxide 400 mg (241.3 mg magnesium) tablet 400 mg PO DAILY 03/21/24 [History Last Taken Unknown] omeprazole 40 mg capsule,delayed release 40 mg PO DAILY 03/21/24 [History Last Taken Unknown] ondansetron HCl 4 mg tablet 4 mg PO Q4H PRN PRN nausea and vomiting 03/21/24 [History Last Taken Unknown] oxycodone-acetaminophen 5 mg-325 mg tablet 1 tab PO TID PRN PRN pain 03/21/24 [History Last Taken Unknown] Allergy/AdvReac Type Severity Reaction Status Date / Time adhesive tape [tape] Allergy Hives Verified 03/31/23 02:26 latex Allergy BLISTERS Verified 03/30/23 21:11 Iodinated Contrast Media AdvReac Hives Verified 03/30/23 21:11 [Iodinated Contrast Media - IV Dye] morphine AdvReac Nausea/Vom/ Verified 03/30/23 21:11 Diarrhea Family History Mother CVA (cerebral vascular accident) Heart disease Hypertension Sister Cancer Surgical History History of appendectomy History of laryngectomy History of tracheostomy Hx of cholecystectomy Hx of hernia repair Hx of hysterectomy Social History Smoking Status: Former smoker ROS ROS Narrative Constitutional: Reports fatigue and weakness. No fever. HEENT: Tracheostomy. No SPG valve. Reports systems reviewed and no addt'l complaints, except as documented Respiratory/Chest: No acute shortness of breath or respiratory distress or wheezing. CVS: No chest pain pressure or tightness. Gastrointestinal: Denies coffee ground emesis, hematemesis or vomi (more content not included)... Normal [facility] Hematocrit Auto (Bld) [Volum e fraction]Ordered By: Kimberly Black on 03-21-2024 Hematocrit (Bld) [Volume fraction] 36.9 % 37-47 [facility] Immature granulocytes/100 WB C Auto (Bld)Ordered By: Kimberly Black on 03-21-2024 Immature granulocytes/100 WBC (Bld) 0.500 % 0.0-0.9 [facility] Comment on above: IG% - Immature Granu locytes (promyelocytes, myelocytes and metamyelocytes) > 1% indicates that a LEFT SHIFT is Present. Laboratory - Chemistry and C hemistry - challengeOrdered By: Kimberly Black on 03-21-2024 Albumin/Globulin [Mass ratio] 0.9 {ratio} 0.9-2.4 [facility] ALP [Catalytic activity/Vol] 84 U/L 45-117 [facility] ALT [Catalytic activity/Vol] U/L 13-56 [facility] CO2 [Moles/Vol] 27.0 mmol/L 21.0-32.0 [facility] Globulin (S) [Mass/Vol] 3.3 g/dL 2.2-4.2 [facility] Urea nitrogen/Creatinine [Mass ratio] 6.7 mg/mg 10-20 [facility] - Chemistry and C hemistry - challengeOrdered By: Rodrigo Newsome on 03-21-2024 Magnesium [Mass/Vol] 1.8 mg/dL 1.6-2.6 [facility] - Drug toxicology Ordered By: Kimberly Black on 03-21-2024 Amphetamines Ql (U) Negative <1000 ng/mL [facility] Benzodiazepines Ql (U) Negative < 200 ng/mL [facility] Cannabinoids Screen Ql (U) Negative < 50 ng/mL [facility] Cocaine Ql (U) Negative < 300 ng/mL [facility] Opiates Ql (U) Negative < 300 ng/mL [facility] - Hematology and Cell countsOrdered By: Kimberly Black on 03-21-2024 MCH (RBC) [Entitic mass] 28.3 pg 27.0-32.0 [facility] MCHC (RBC) [Mass/Vol] 32.5 g/dL 32-36 [facility] Nucleated RBC/100 WBC (Bld) [Ratio] 0 % 0-5 [facility] Platelet mean volume (Bld) [Entitic vol] 10.1 fL 6.2-12.0 [facility] Platelets (Bld) [#/Vol] 373 10*3/uL 150-450 [facility] Magnesiumon 03-21-2024 Magnesium [Mass/Vol] 1.8 mg/dL Normal 1.6-2.6 [facility] Comment on above: Performed By: #### L 501.2300, L501.5200 #### [facility] [address] [place], [address] No Panel InformationOrdered By: Kimberly Black on 03-21-2024 MDMA (Ecstasy) Screen Negative < 500 ng/mL [facility] Urine Barbiturates Screen Negative < 200 ng/mL [facility] Urine Drug Screen Comment [facility] Comment on above: CONFIRMATORY TESTING FOR ALL POSITIVE URINE DRUG SCREENRESULTS WILL ONLY BE SENT OUT UPON PHYSICIAN ORDER. [facility]IST[facility] Urine Drug Screen methods provide only preliminaryanalytical test results. A more specific alternate chemicalmethod must be used in order to obtain a confirmedanalytical result. Gas chromatography/mass spectrometery(GC/MS) is the preferred confirmatory method. Clinicalconsideration and professional judgement should be appliedto any drug of abuse test result, particularly whenpreliminary positive results are used. URINE TCA TESTING MUST BE ORDERED SEPARATELY. USE TESTMNEMONIC: [facility] Urine Methadone Screen Negative < 300 ng/mL [facility] Estimated GFR (MDRD) Amer 53 mL/min >60 [facility] Comment on above: GFR Calc Estimated GFR (MDRD) Non-Af Amer 44 mL/min >60 [facility] Comment on above: Non- GFR Calc Ethyl Alcohol Level 170.0 mg/dL [facility] Comment on above: The serum:whole bloo d ethanol ratio is approximately 1.14and varies slightly with hematocrit. Medical Alcohol reference interval and critical value innon-tolerant individuals; 50 - 100 Impairment 100 Intoxication 100 - 250 Severe Poisoning 250 - 400 Deep/possible fatal coma Phosphoruson 03-21-2024 Phosphate [Mass/Vol] 3.6 mg/dL Normal 2.5-4.9 [facility] Comment on above: Performed By: #### L 501.2300, L501.5200 #### [facility] [address] [place], [place], [id number] ,Serum,hCG Quali.on 03-21-2024 HCG, SERUM QUAL Negative Normal [facility] Comment on above: Performed By: #### L 501.9100, L505.5000, L100.0100, L500.4050, L700.6800 #### [facility] [address] [place], [address] RBC Auto (Bld) [#/Vol]Ordere d By: Kimberly Black on 03-21-2024 RBC (Bld) [#/Vol] 4.24 10*6/uL 4.2-5.4 [facility] Serum or plasma calcium alessandro urement (mass/volume)Ordered By: Kimberly Black on 03-21-2024 Calcium [Mass/Vol] 8.9 mg/dL 8.5-10.1 [facility] Serum or plasma choriogonado tropin detectionOrdered By: Kimberly Black on 03-21-2024 HCG ( test) Ql Negative [facility] Serum or plasma creatinine m easurement (mass/volume)Ordered By: Kimberly Black on 03-21-2024 Creatinine [Mass/Vol] 1.35 mg/dL 0.55-1.02 [facility] Comment on above: The validity of the calculated GFR & GFRAA in patients over 70 years has not been determined. Clinical correlation is essential. Serum or plasma urea nitroge n measurement (mass/volume)Ordered By: Kimberly Black on 03-21-2024 Urea nitrogen [Mass/Vol] 9 mg/dL 7-18 [facility] Thin prep Papanicolaou smear with manual screeningOrdered By: Kimberly Black on 03-21-2024 Thin prep Papanicolaou smear with manual screening 3.0 g/dL 3.2-5.0 [facility] Thin prep Papanicolaou smear with manual screening 13 U/L 15-37 [facility] Thin prep Papanicolaou smear with manual screening 8 5-15 [facility] Urine Drug Screen (VISTA)on 03-21-2024 AMPHETAMINES Negative Normal <1000 ng/mL [facility] Comment on above: Performed By: #### L 501.9100, L505.5000, L100.0100, L500.4050, L700.6800 #### [facility] [address] [place], [address] BARBITIURATES Negative Normal < 200 ng/mL [facility] Comment on above: Performed By: #### L 501.9100, L505.5000, L100.0100, L500.4050, L700.6800 #### [facility] [address] [place], [address] BENZODIAZIPINE Negative Normal < 200 ng/mL [facility] Comment on above: Performed By: #### L 501.9100, L505.5000, L100.0100, L500.4050, L700.6800 #### [facility] [address] [place], [address] COCAINE Negative Normal < 300 ng/mL [facility] Comment on above: Performed By: #### L 501.9100, L505.5000, L100.0100, L500.4050, L700.6800 #### [facility] [address] [place], [address] ECSTACY Negative Normal < 500 ng/mL [facility] Comment on above: Performed By: #### L 501.9100, L505.5000, L100.0100, L500.4050, L700.6800 #### [facility] [address] [place], [address] METHADONE Negative Normal < 300 ng/mL [facility] Comment on above: Performed By: #### L 501.9100, L505.5000, L100.0100, L500.4050, L700.6800 #### [facility] [address] [place], [address] OPIATES Negative Normal < 300 ng/mL [facility] Comment on above: Performed By: #### L 501.9100, L505.5000, L100.0100, L500.4050, L700.6800 #### [facility] [address] [place], [address] PCP Negative Normal < 25 ng/mL [facility] Comment on above: Performed By: #### L 501.9100, L505.5000, L100.0100, L500.4050, L700.6800 #### [facility] [address] [place], [address] THC Negative Normal < 50 ng/mL [facility] Comment on above: Performed By: #### L 501.9100, L505.5000, L100.0100, L500.4050, L700.6800 #### [facility] [address] [place], [address] VISTA UDS PH 5 Normal [facility] Comment on above: Performed By: #### L 501.9100, L505.5000, L100.0100, L500.4050, L700.6800 #### [facility] [address] [place], [place], [id number] Urine phencyclidine (PCP) de tectionOrdered By: Kimberly Black on 03-21-2024 Phencyclidine Ql (U) Negative < 25 ng/mL [facility] CBC W Auto Differential pane l (Bld)on 02-02-2024 Basophils (Bld) [#/Vol] 0.07 10*3/uL [facility] Basophils/100 WBC (Bld) 0.7 % 0.0 - 2.0 % [facility] Eosinophils (Bld) [#/Vol] 0.18 10*3/uL [facility] Eosinophils/100 WBC (Bld) 1.7 % 0.0 - 6.0 % [facility] Erythrocyte distribution width (RBC) [Ratio] 13.2 % 11.5 - 14.5 % [facility] Hematocrit (Bld) [Volume fraction] 39.6 % 36.0 - 46.0 % [facility] Hemoglobin (Bld) [Mass/Vol] 13.4 g/dL 12.0 - 16.0 g/dL [facility] Immature granulocytes (Bld) [#/Vol] 0.05 10*3/uL [facility] Immature granulocytes/100 WBC (Bld) 0.5 % 0.0 - 0.9 % [facility] Comment on above: Immature Granulocyte Count (IG) includes promyelocytes, myelocytes and metamyelocytes but does not include bands. Percent differential counts (%) should be interpreted in the context of the absolute cell counts (cells/UL). Interpretation and review of laboratory results Abnormal [facility] Lymphocytes (Bld) [#/Vol] 1.14 10*3/uL Low [facility] Lymphocytes/100 WBC (Bld) 10.6 % 13.0 - 44.0 % [facility] MCH (RBC) [Entitic mass] 29.3 pg 26.0 - 34.0 pg [facility] MCHC (RBC) [Mass/Vol] 33.8 g/dL 32.0 - 36.0 g/dL [facility] MCV (RBC) [Entitic vol] 87 fL 80 - 100 fL [facility] Monocytes (Bld) [#/Vol] 0.75 10*3/uL [facility] Monocytes/100 WBC (Bld) 7.0 % 2.0 - 10.0 % [facility] Neutrophils (Bld) [#/Vol] 8.55 10*3/uL High [facility] Comment on above: Percent differential counts (%) should be interpreted in the context of the absolute cell counts (cells/uL). Neutrophils/100 WBC (Bld) 79.5 % 40.0 - 80.0 % [facility] Nucleated RBC/100 WBC (Bld) [Ratio] 0.0 % [facility] Platelets (Bld) [#/Vol] 213 10*3/uL [facility] RBC (Bld) [#/Vol] 4.57 10*6/uL [facility] WBC (Bld) [#/Vol] 10.7 10*3/uL [facility] CT Cervical spine MORENA bryant 02-02-2024 No evidence for an acute fracture or subluxation of the cervical spine. MACRO: None Signed by: Sebastian Rodriguez 02/02/2024 1:14 PM Dictation workstation: [id number] MMODAL Interpreted By: Sebastian Redding, STUDY: CT CERVICAL SPINE WO IV CONTRAST; 02/02/2024 12:46 pm INDICATION: Signs/Symptoms:head injury. COMPARISON: None. ACCESSION NUMBER(S): [id number] ORDERING CLINICIAN: TON LIN TECHNIQUE: Axial CT images of the cervical spine are obtained. Axial, coronal and sagittal reconstructions are provided for review. FINDINGS: Osteopenia. No definite fracture or subluxation of the cervical spine. Moderate to severe disc height loss with endplate osteophytes at C5-6. The remaining disc heights are maintained. No spondylolisthesis. Reversal of the cervical lordosis. There is complete right and partial left C2-3 facet fusion. No spondylolisthesis. No critical canal or foraminal stenosis. No prevertebral soft tissue swelling. Postoperative changes of the neck are partially imaged including a tracheostomy tube placement. MMODAL Sebastian Rodriguez MD - 02/02/2024 Interpreted By: Sebastian Rodriguez, STUDY: CT CERVICAL SPINE WO IV CONTRAST; 02/02/2024 12:46 pm INDICATION: Signs/Symptoms:head injury. COMPARISON: None. ACCESSION NUMBER(S): [id number] ORDERING CLINICIAN: TON LIN TECHNIQUE: Axial CT images of the cervical spine are obtained. Axial, coronal and sagittal reconstructions are provided for review. FINDINGS: Osteopenia. No definite fracture or subluxation of the cervical spine. Moderate to severe disc height loss with endplate osteophytes at C5-6. The remaining disc heights are maintained. No spondylolisthesis. Reversal of the cervical lordosis. There is complete right and partial left C2-3 facet fusion. No spondylolisthesis. No critical canal or foraminal stenosis. No prevertebral soft tissue swelling. Postoperative changes of the neck are partially imaged including a tracheostomy tube placement. IMPRESSION: No evidence for an acute fracture or subluxation of the cervical spine. MACRO: None Signed by: Sebastian Rodriguez 02/02/2024 1:14 PM Dictation workstation: [id number] [facility] Work Phone: [facility] Work Phone: CT Head WO contraston 2023 No acute intracrania l pathology. Signed by: Sebastian Rodriguez 02/02/2024 1:17 PM Dictation workstation: [id number] [facility] Interpreted By: Sebastian Redding, STUDY: CT HEAD WO IV CONTRAST 02/02/2024 12:46 pm INDICATION: Signs/Symptoms:head injury COMPARISON: None. ACCESSION NUMBER(S): [id number] ORDERING CLINICIAN: TON LIN TECHNIQUE: Contiguous axial CT images of the brain were obtained without IV contrast. FINDINGS: The ventricles, cisterns and sulci are prominent, consistent with mild diffuse volume loss. Areas of white matter low attenuation are nonspecific but likely related to chronic microvascular disease. There is intracranial atherosclerosis. Waldron-white differentiation is preserved. No acute intracranial hemorrhage or mass effect. No midline shift. Patent basal cisterns. No extraaxial fluid collections. The calvaria is intact. Secretions in the sphenoid sinuses are present. The remaining visualized paranasal sinuses and mastoid air cells are aerated. MMODAL Sebastian Rodriguez MD - 02/02/2024 Interpreted By: Sebastian Rodriguez, STUDY: CT HEAD WO IV CONTRAST 02/02/2024 12:46 pm INDICATION: Signs/Symptoms:head injury COMPARISON: None. ACCESSION NUMBER(S): [id number] ORDERING CLINICIAN: TON LIN TECHNIQUE: Contiguous axial CT images of the brain were obtained without IV contrast. FINDINGS: The ventricles, cisterns and sulci are prominent, consistent with mild diffuse volume loss. Areas of white matter low attenuation are nonspecific but likely related to chronic microvascular disease. There is intracranial atherosclerosis. Waldron-white differentiation is preserved. No acute intracranial hemorrhage or mass effect. No midline shift. Patent basal cisterns. No extraaxial fluid collections. The calvaria is intact. Secretions in the sphenoid sinuses are present. The remaining visualized paranasal sinuses and mastoid air cells are aerated. IMPRESSION: No acute intracranial pathology. Signed by: Sebastian Rodriguez 02/02/2024 1:17 PM Dictation workstation: [id number] [facility] Work Phone: CT Head WO contrastOrdered B y: Sebastian Rodriguez on 02-02-2024 [facility] Work Phone: CT Lumbar spine WO contrasto n 02-02-2024 Acute mild superior endplate compression fracture of L5 with approximately 20% loss of height. No associated retropulsed fragments. Signed by Efrain Pimentel MD TELERADIOLOGY STUDY: CT Lumbar Spine without IV Contrast; 02/02/2024 12:47 PM INDICATION: Fall with pain. COMPARISON: MR lumbar spine 10/27/2021. XR LS spine 10/26/2021. ACCESSION NUMBER(S): [id number] ORDERING CLINICIAN: TON LIN TECHNIQUE: CT of the lumbar spine was performed without intravenous or intrathecal contrast. Sagittal and coronal reconstructions were generated. Automated mA/kV exposure control was utilized and patient examination was performed in strict accordance with principles of ALARA. FINDINGS: The alignment is anatomic. Acute mild superior endplate compression fracture of L5 with approximately 20% loss of height. No associated retropulsed fragments. Mild disc space narrowing at L1-2 and L2-3. No significant central canal stenosis is demonstrated. The neural foramina are patent throughout. The paravertebral soft tissues are within normal limits. The visualized abdomen is unremarkable. TELERADIOLOGY Efrain Pimentel MD - 02/02/2024 STUDY: CT Lumbar Spine without IV Contrast; 02/02/2024 12:47 PM INDICATION: Fall with pain. COMPARISON: MR lumbar spine 10/27/2021. XR LS spine 10/26/2021. ACCESSION NUMBER(S): [id number] ORDERING CLINICIAN: TON LIN TECHNIQUE: CT of the lumbar spine was performed without intravenous or intrathecal contrast. Sagittal and coronal reconstructions were generated. Automated mA/kV exposure control was utilized and patient examination was performed in strict accordance with principles of ALARA. FINDINGS: The alignment is anatomic. Acute mild superior endplate compression fracture of L5 with approximately 20% loss of height. No associated retropulsed fragments. Mild disc space narrowing at L1-2 and L2-3. No significant central canal stenosis is demonstrated. The neural foramina are patent throughout. The paravertebral soft tissues are within normal limits. The visualized abdomen is unremarkable. IMPRESSION: Acute mild superior endplate compression fracture of L5 with approximately 20% loss of height. No associated retropulsed fragments. Signed by Efrain Pimentel MD [facility] Work Phone: CT Lumbar spine WO contrastO rdered By: Efrain Pimentel on 02-02-2024 [facility] Work Phone: Comprehensive metabolic 2000 panelon 02-02-2024 Albumin BCP dye [Mass/Vol] 3.8 g/dL 3.4 - 5.0 g/dL [facility] ALP [Catalytic activity/Vol] 79 U/L 33 - 110 U/L [facility] ALT With P-5'-P [Catalytic activity/Vol] 3 U/L Low 7 - 45 U/L [facility] Comment on above: Patients treated wit h Sulfasalazine may generate falsely decreased results for ALT. Anion gap [Moles/Vol] 14 mmol/L 10 - 2 0 mmol/L [facility] AST With P-5'-P [Catalytic activity/Vol] 6 U/L Low 9 - 39 U/L [facility] Bilirubin [Mass/Vol] 0.5 mg/dL 0.0 - 1 .2 mg/dL [facility] Calcium [Mass/Vol] 9.5 mg/dL 8.6 - 10. 3 mg/dL [facility] Chloride [Moles/Vol] 92 mmol/L Low 98 - 10 7 mmol/L [facility] CO2 [Moles/Vol] 29 mmol/L 21 - 32 mmol/L [facility] Creatinine [Mass/Vol] 1.19 mg/dL High 0.50 - 1.05 mg/dL [facility] GFR/1.73 sq M.predicted among non-blacks MDRD (S/P/Bld) [Vol rate/Area] 55 mL/min/{1.73_m2} Low - PINF [facility] Comment on above: Calculations of bree mated GFR are performed using the 2020 CKD-EPI Study Refit equation without the race variable for the IDMS-Traceable creatinine methods. https://jasn.asnjournals.org/content//ASN.397748 2214 Glucose [Mass/Vol] 113 mg/dL High 74 - 99 mg/dL [facility] Interpretation and review of laboratory results Abnormal [facility] Potassium [Moles/Vol] 3.5 mmol/L 3.5 - 5.3 mmol/L [facility] Protein [Mass/Vol] 6.7 g/dL 6.4 - 8.2 g/dL [facility] Sodium [Moles/Vol] 131 mmol/L Low 136 - 145 mmol/L [facility] Urea nitrogen [Mass/Vol] 24 mg/dL High 6 - 23 mg/dL [facility] No Panel Informationon 02-01 Interpretation and review of laboratory results Abnormal [facility] Radiology Study observation (narrative) [facility] Work Phone: Tropinin I.cardiac panel Hig h sensitivity methodon 02-02-2024 Interpretation and review of laboratory results Normal [facility] Less than 99th percentile of normal range cutoff- Female and children under 18 years old <14 ng/L; Male <21 ng/L: Negative Repeat testing should be performed if clinically indicated. Female and children under 18 years old 14-50 ng/L; Male 21-50 ng/L: Consistent with possible cardiac damage and possible increased clinical risk. Serial measurements may help to assess extent of myocardial damage. >50 ng/L: Consistent with cardiac damage, increased clinical risk and myocardial infarction. Serial measurements may help assess extent of myocardial damage. NOTE: Children less than 1 year old may have higher baseline troponin levels and results should be interpreted in conjunction with the overall clinical context. NOTE: Troponin I testing is performed using a different testing methodology at [facility] than at other [facility]. Direct result comparisons should only be made within the same method. [facility] Troponin I, High Sensitivity on 02-02-2024 Tropinin I.cardiac panel High sensitivity method 3 ng/L 0 - 13 ng/L [facility] Urinalysis complete W Reflex Culture panel (U)on 02-02-2024 Appearance (U) Clear Clear [facility] Bilirubin (U) [Mass/Vol] Negative NEGATIVE [facility] Color (U) Yellow Straw, Yellow [facility] Glucose Auto test strip (U) [Mass/Vol] Negative NEGATIVE mg/dL [facility] Ketones (U) [Mass/Vol] Negative NEGATIVE mg/dL [facility] Leukocyte esterase Auto test strip Ql (U) TRACE Abnormal NEGATIVE [facility] Nitrite Auto test strip Ql (U) Negative NEGATIVE [facility] pH (U) 5.0 [pH] 5.0, 5.5, 6.0, 6.5, 7.0, 7.5, 8.0 [facility] Protein (U) [Mass/Vol] Negative NEGATIVE mg/dL [facility] RBC (U) [#/Vol] Negative NEGATIVE [facility] Specific gravity (U) [Rel density] 1.012 1.005 - 1.035 [facility] Urobilinogen (U) [Mass/Vol] mg/dL NINF - 2.0 mg/dL [facility] Urinalysis microscopic panel Auto Ql (U)on 02-02-2024 Bacteria Auto (Urine sed) [#/Area] 1+ Abnormal NONE SEEN /HPF [facility] Epithelial cells.squamous Auto (Urine sed) [#/Area] 1-9 (SPARSE) Reference range not established. /HPF [facility] RBC Auto (Urine sed) [#/Area] 1-2 NONE, 1-2, 3-5 /HPF [facility] WBC Auto (Urine sed) [#/Area] 6-10 Abnormal 1-5, NONE /HPF [facility] XR Hip Viewson 02-02-2024 No acute osseous findings. Signed by Terrence Townsend II, MD TELERADIOLOGY STUDY: Hip Radiographs; 02/02/2024 11:36 AM. INDICATION: Pain after fall. COMPARISON: None Available. ACCESSION NUMBER(S): [id number] ORDERING CLINICIAN: TON LIN TECHNIQUE: Three views (four) of the left hip. FINDINGS: There is no displaced fracture. The alignment is anatomic. No soft tissue abnormality is seen. TELERADIOLOGY Terrence Townsend MD P hD - 02/02/2024 STUDY: Hip Radiographs; 02/02/2024 11:36 AM. INDICATION: Pain after fall. COMPARISON: None Available. ACCESSION NUMBER(S): [id number] ORDERING CLINICIAN: TON LIN TECHNIQUE: Three views (four) of the left hip. FINDINGS: There is no displaced fracture. The alignment is anatomic. No soft tissue abnormality is seen. IMPRESSION: No acute osseous findings. Signed by Terrence Townsend II, MD [facility] Work Phone: Radiology Study observation (narrative) [facility] Work Phone: XR Hip ViewsOrdered By: Scott Townsend on 02-02-2024 [facility] Work Phone: CT Chest and Abdomen and Pel vis WO contraston 11-18-2023 1. Mild patchy ground-glass opacities/infiltrates predominantly at the lung bases, left greater than right, could be due to history of known pneumonia. Correlate with history of aspiration given presence of tracheostomy. 2. Several lung nodules and nodular densities as described some of which appear to be new since prior. Consider follow-up chest CT in 3-6 months to evaluate stability. 3. Diffuse bronchial wall thickening can be seen in the setting of bronchitis. There are also some mild linear densities within the trachea may be sequela of retained secretion and/or aspiration. 4. Dilatation proximal right renal collecting system and pelvis as described with normal caliber ureters, raising concern for the possibility of at least partial UPJ obstruction. A dedicated CT urogram may be considered as a means of further assessment. 5. Additional findings as above. I personally reviewed the images/study and I agree with the findings as stated. This study was interpreted at [facility], [place], [place]. MACRO: Incidental Finding: Multiple solid non-calcified pulmonary nodules measuring up to greater than 8 mm. (-YCF-) Instructions: Consider follow up non contrast chest CT at 3-6 months, then consider CT chest at 18-24 months. (Saud Cochranhoadilia et al., Guidelines for management of incidental pulmonary nodules detected on CT images: From the Fleischner Society 2017, Radiology. 2017 Reji;284 (1):228-243.) [email or web address] Signed by: Дмитрий Vallejo 11/18/2023 10:50 AM Dictation workstation: [id number] [facility] MMODAL Interpreted By: Дмитрий Vallejo, and Justyn Wen STUDY: CT CHEST ABDOMEN PELVIS WO CONTRAST; 11/17/2023 9:23 am INDICATION: Signs/Symptoms:VOMITING ALCOHOL ABUSE. Per clinical notes: Patient has a history of chronic respiratory failure, status post tracheostomy placement, history of supraglottic cancer in 2008. COMPARISON: CTA 04/25/2022, CT 11/27/2015, chest radiograph 10/22/2023 ACCESSION NUMBER(S): [id number] ORDERING CLINICIAN: INTERFACE UNSPECIFIELDPROVIDER TECHNIQUE: Contiguous axial images of the chest , abdomen, and pelvis were obtained without IV contrast. The study was performed with negative oral contrast. Coronal and sagittal reformatted images were reconstructed from the axial data. FINDINGS: CT CHEST: MEDIASTINUM AND LYMPH NODES: No definite new suspicious enlarged intrathoracic or axillary lymph nodes. VESSELS: Stable caliber aorta. Mild atherosclerotic calcifications throughout the aorta. HEART:Normal size.No significant coronary artery calcifications. No significant pericardial effusion. LUNG, AIRWAYS, PLEURA: A tracheostomy tube is present at the partially imaged lower neck. Refer to dedicated concurrent CT neck for further details. Diffuse bronchial wall thickening is noted. There is mild biapical pleural-parenchymal scarring, unchanged compared to prior examination on 04/25/2022. There a 5 mm pleural-based nodule is noted in the right lower lobe (series 4, image 119), not definitely seen previously. There are subtle patchy ground-glass opacities at the lung bases, left greater than right including nodular components up to 5-6 mm (series 4, image 119), could be due to known history of pneumonia. An additional 11 mm focal opacity is noted in the left upper lobe (series 4, image 71) new since prior. Mild middle lobe and lingular focal consolidation/atelectas is. Mild patchy bibasilar infiltrates/atelectasis . 7 mm pleural-based right lung base nodule image 132 not definitely seen previously. CHEST WALL SOFT TISSUES:No discernible abnormality.No thyroid parenchyma could be confidently seen within scanned lower neck. Correlate with severe atrophy, congenital absence/ectopic thyroid, versus prior surgical resection history. The esophagus is mildly dilated diffusely without significant wall thickening. Small hiatal hernia. OSSEOUS STRUCTURES:Multilevel degenerative changes visualized spine. No definite new suspicious osseous lesions. CT ABDOMEN/PELVIS: ABDOMINAL WALL: Probable postoperative change/scarring at the lower anterior abdominal wall midline subcutaneous and soft tissues. Some nodular densities in the anterior abdominal wall fat inferiorly measuring up to 2.2 cm may be sequela of subcutaneous medicine injection. Linear tract left mid upper anterior abdominal wall appears to communicate with linear density extending to the anterior stomach probably relating to previous gastrostomy tube location. This is similar to prior. LIVER: Suspected fatty liver. BILE DUCTS: No significant intrahepatic or extrahepatic dilatation. GALLBLADDER: Surgically absent. SPLEEN: No significant abnormality. PANCREAS: No focal lesions identified within the pancreas on this noncontrast enhanced examination. No evidence of main pancreatic ductal dilatation. ADRENALS: No significant abnormality. KIDNEYS, URETERS, BLADDER: Low-density renal lesions bilaterally exophytic up to 7 mm could represent cysts but too small to characterize and otherwise incompletely evaluated.Dilatation proximal right renal collecting system and pelvis up to 1.4 cm caliber. No definite renal or ureteral stones and otherwise normal caliber ureters. Urinary bladder mildly distended. REPRODUCTIVE ORGANS: No definite new suspicious pelvic masses. Apparent postsurgical changes hysterectomy. VESSELS: There is evidence moderate atherosclerotic calcifications predominantly involving the common iliac bifurcation and bilateral common iliac arteries. No aneurysm. Relative collapsed appearance of the IVC can be seen in the setting of hypovolemia and overall similar to prior. RETROPERITONEUM/LYMPH NODES: Mildly prominent nonspecific jeffrey hepatis/peripancreatic nodes up to 9 mm short axis. BOWEL/MESENTERY/PERITON EUM: Small hiatal hernia is noted. Suboptimal evaluation of the stomach due to decompression, however, no significant abnormalities identified.Postsurgical changes of a remote gastrostomy tube placement. Colonic diverticulosis, without acute diverticulitis. Mildly prominent fluid-filled small bowel loops scattered throughout overall nonspecific.. The appendix is not definitively visualized, however, there are no secondary signs of appendicitis. No ascites, free air, or fluid collection. MUSCULOSKELETAL: No acute osseous abnormality. No mina (more content not included)... [facility] MMODAL Дмитрий Vallejo, DO - 11/18/2023 Interpreted By: Дмитрий Vallejo and Tavana Shahrzad STUDY: CT CHEST ABDOMEN PELVIS WO CONTRAST; 11/17/2023 9:23 am INDICATION: Signs/Symptoms:VOMITING ALCOHOL ABUSE. Per clinical notes: Patient has a history of chronic respiratory failure, status post tracheostomy placement, history of supraglottic cancer in 2007. COMPARISON: CTA 04/25/2022, CT 11/27/2015, chest radiograph 10/22/2023 ACCESSION NUMBER(S): [id number] ORDERING CLINICIAN: INTERFACE UNSPECIFIELDPROVIDER TECHNIQUE: Contiguous axial images of the chest , abdomen, and pelvis were obtained without IV contrast. The study was performed with negative oral contrast. Coronal and sagittal reformatted images were reconstructed from the axial data. FINDINGS: CT CHEST: MEDIASTINUM AND LYMPH NODES: No definite new suspicious enlarged intrathoracic or axillary lymph nodes. VESSELS: Stable caliber aorta. Mild atherosclerotic calcifications throughout the aorta. HEART:Normal size.No significant coronary artery calcifications. No significant pericardial effusion. LUNG, AIRWAYS, PLEURA: A tracheostomy tube is present at the partially imaged lower neck. Refer to dedicated concurrent CT neck for further details. Diffuse bronchial wall thickening is noted. There is mild biapical pleural-parenchymal scarring, unchanged compared to prior examination on 04/25/2022. There a 5 mm pleural-based nodule is noted in the right lower lobe (series 4, image 119), not definitely seen previously. There are subtle patchy ground-glass opacities at the lung bases, left greater than right including nodular components up to 5-6 mm (series 4, image 119), could be due to known history of pneumonia. An additional 11 mm focal opacity is noted in the left upper lobe (series 4, image 71) new since prior. Mild middle lobe and lingular focal consolidation/atelectas is. Mild patchy bibasilar infiltrates/atelectasis . 7 mm pleural-based right lung base nodule image 132 not definitely seen previously. CHEST WALL SOFT TISSUES:No discernible abnormality.No thyroid parenchyma could be confidently seen within scanned lower neck. Correlate with severe atrophy, congenital absence/ectopic thyroid, versus prior surgical resection history. The esophagus is mildly dilated diffusely without significant wall thickening. Small hiatal hernia. OSSEOUS STRUCTURES:Multilevel degenerative changes visualized spine. No definite new suspicious osseous lesions. CT ABDOMEN/PELVIS: ABDOMINAL WALL: Probable postoperative change/scarring at the lower anterior abdominal wall midline subcutaneous and soft tissues. Some nodular densities in the anterior abdominal wall fat inferiorly measuring up to 2.2 cm may be sequela of subcutaneous medicine injection. Linear tract left mid upper anterior abdominal wall appears to communicate with linear density extending to the anterior stomach probably relating to previous gastrostomy tube location. This is similar to prior. LIVER: Suspected fatty liver. BILE DUCTS: No significant intrahepatic or extrahepatic dilatation. GALLBLADDER: Surgically absent. SPLEEN: No significant abnormality. PANCREAS: No focal lesions identified within the pancreas on this noncontrast enhanced examination. No evidence of main pancreatic ductal dilatation. ADRENALS: No significant abnormality. KIDNEYS, URETERS, BLADDER: Low-density renal lesions bilaterally exophytic up to 7 mm could represent cysts but too small to characterize and otherwise incompletely evaluated.Dilatation proximal right renal collecting system and pelvis up to 1.4 cm caliber. No definite renal or ureteral stones and otherwise normal caliber ureters. Urinary bladder mildly distended. REPRODUCTIVE ORGANS: No definite new suspicious pelvic masses. Apparent postsurgical changes hysterectomy. VESSELS: There is evidence moderate atherosclerotic calcifications predominantly involving the common iliac bifurcation and bilateral common iliac arteries. No aneurysm. Relative collapsed appearance of the IVC can be seen in the setting of hypovolemia and overall similar to prior. RETROPERITONEUM/LYMPH NODES: Mildly prominent nonspecific jeffrey hepatis/peripancreatic nodes up to 9 mm short axis. BOWEL/MESENTERY/PERITON EUM: Small hiatal hernia is noted. Suboptimal evaluation of the stomach due to decompression, however, no significant abnormalities identified.Postsurgical changes of a remote gastrostomy tube placement. Colonic diverticulosis, without acute diverticulitis. Mildly prominent fluid-filled small bowel loops scattered throughout overall nonspecific.. The appendix is not definitively visualized, however, there are no secondary signs of appendicitis. No ascites, free air, or fluid collection. MUSCULOSKELETAL: No a (more content not included)... [facility] Work Phone: CT Chest and Abdomen and Pel vis WO contrastOrdered By: Дмитрий Vallejo on 11-18-2023 [facility] Work Phone: CT Chest and Abdomen and Pel vis WO contraston 11-17-2023 Radiology Study observation (narrative) [facility] Work Phone: SARS-CoV-2 (COVID-19) RNA NA A+probe Ql (Resp)on 11-01-2023 Interpretation and review of laboratory results Normal [facility] This assay has recei karen FDA Emergency Use Authorization (EUA) and is only authorized for the duration of time that circumstances exist to justify the authorization of the emergency use of in vitro diagnostic tests for the detection of SARS-CoV-2 virus and/or diagnosis of COVID-19 infection under section 564(b)(1) of the Act, 21 U.S.C. 360bbb-3(b)(1). This assay is an in vitro diagnostic nucleic acid amplification test for the qualitative detection of SARS-CoV-2 from nasopharyngeal specimens and has been validated for use at [facility]. Negative results do not preclude COVID-19 infections and should not be used as the sole basis for diagnosis, treatment, or other management decisions. [facility] SARS-CoV-2 RT PCRon 11-01-20 SARS-CoV-2 (COVID-19) RNA CRISTHIAN+probe Ql (Resp) Not detected Not Detected [facility] Basic metabolic 2000 panelon 10-31-2023 Anion gap [Moles/Vol] 12 mmol/L 10 - 2 0 mmol/L [facility] Calcium [Mass/Vol] 8.6 mg/dL 8.6 - 10. 3 mg/dL [facility] Chloride [Moles/Vol] 102 mmol/L 98 - 10 7 mmol/L [facility] CO2 [Moles/Vol] 26 mmol/L 21 - 32 mmol/L [facility] Creatinine [Mass/Vol] 3.18 mg/dL High 0.50 - 1.05 mg/dL [facility] GFR/1.73 sq M.predicted MDRD (S/P/Bld) [Vol rate/Area] 17 mL/min/{1.73_m2} Low - PINF [facility] Comment on above: Calculations of bree mated GFR are performed using the 2020 CKD-EPI Study Refit equation without the race variable for the IDMS-Traceable creatinine methods. https://jasn.asnjournals.org/content//ASN.390752 0507 Glucose [Mass/Vol] 90 mg/dL 74 - 99 mg/dL [facility] Interpretation and review of laboratory results Abnormal [facility] Potassium [Moles/Vol] 4.4 mmol/L 3.5 - 5.3 mmol/L [facility] Sodium [Moles/Vol] 136 mmol/L 136 - 145 mmol/L [facility] Urea nitrogen [Mass/Vol] 54 mg/dL High 6 - 23 mg/dL [facility] Lavender Topon 10-31-2023 Extra Tube Hold for add-ons. [facility] Comment on above: Auto resulted. [facility] Basic metabolic 2000 panelon 10-30-2023 Anion gap [Moles/Vol] 13 mmol/L 10 - 2 0 mmol/L [facility] Calcium [Mass/Vol] 8.5 mg/dL Low 8.6 - 10. 3 mg/dL [facility] Chloride [Moles/Vol] 103 mmol/L 98 - 10 7 mmol/L [facility] CO2 [Moles/Vol] 25 mmol/L 21 - 32 mmol/L [facility] Creatinine [Mass/Vol] 3.53 mg/dL High 0.50 - 1.05 mg/dL [facility] GFR/1.73 sq M.predicted MDRD (S/P/Bld) [Vol rate/Area] 15 mL/min/{1.73_m2} Low - PINF [facility] Comment on above: Calculations of bree mated GFR are performed using the 2020 CKD-EPI Study Refit equation without the race variable for the IDMS-Traceable creatinine methods. https://jasn.asnjournals.org/content//ASN.075985 5566 Glucose [Mass/Vol] 92 mg/dL 74 - 99 mg/dL [facility] Interpretation and review of laboratory results Abnormal [facility] Potassium [Moles/Vol] 4.3 mmol/L 3.5 - 5.3 mmol/L [facility] Sodium [Moles/Vol] 137 mmol/L 136 - 145 mmol/L [facility] Urea nitrogen [Mass/Vol] 55 mg/dL High 6 - 23 mg/dL [facility] CBC panel Auto (Bld)on 10-30 Erythrocyte distribution width (RBC) [Ratio] 12.9 % 11.5 - 14.5 % [facility] Hematocrit (Bld) [Volume fraction] 33.1 % Low 36.0 - 46.0 % [facility] Hemoglobin (Bld) [Mass/Vol] 11.2 g/dL Low 12.0 - 16.0 g/dL [facility] Interpretation and review of laboratory results Abnormal [facility] MCH (RBC) [Entitic mass] 33.9 pg 26.0 - 34.0 pg [facility] MCHC (RBC) [Mass/Vol] 33.8 g/dL 32.0 - 36.0 g/dL [facility] MCV (RBC) [Entitic vol] 100 fL 80 - 100 fL [facility] Nucleated RBC/100 WBC (Bld) [Ratio] 0.0 % [facility] Platelets (Bld) [#/Vol] 213 10*3/uL [facility] RBC (Bld) [#/Vol] 3.30 10*6/uL Low [facility] WBC (Bld) [#/Vol] 12.3 10*3/uL [facility] Basic metabolic 2000 panelon 10-29-2023 Anion gap [Moles/Vol] 11 mmol/L 10 - 2 0 mmol/L [facility] Calcium [Mass/Vol] 8.0 mg/dL Low 8.6 - 10. 3 mg/dL [facility] Chloride [Moles/Vol] 105 mmol/L 98 - 10 7 mmol/L [facility] CO2 [Moles/Vol] 25 mmol/L 21 - 32 mmol/L [facility] Creatinine [Mass/Vol] 3.55 mg/dL High 0.50 - 1.05 mg/dL [facility] GFR/1.73 sq M.predicted MDRD (S/P/Bld) [Vol rate/Area] 15 mL/min/{1.73_m2} Low - PINF [facility] Comment on above: Calculations of bree mated GFR are performed using the 2020 CKD-EPI Study Refit equation without the race variable for the IDMS-Traceable creatinine methods. https://jasn.asnjournals.org/content//ASN.365665 5832 Glucose [Mass/Vol] 92 mg/dL 74 - 99 mg/dL [facility] Interpretation and review of laboratory results Abnormal [facility] Potassium [Moles/Vol] 3.8 mmol/L 3.5 - 5.3 mmol/L [facility] Sodium [Moles/Vol] 137 mmol/L 136 - 145 mmol/L [facility] Urea nitrogen [Mass/Vol] 48 mg/dL High 6 - 23 mg/dL [facility] Lavender Topon 10-29-2023 Extra Tube Hold for add-ons. [facility] Comment on above: Auto resulted. [facility] Basic metabolic 2000 panelon 10-28-2023 Anion gap [Moles/Vol] 13 mmol/L 10 - 2 0 mmol/L [facility] Calcium [Mass/Vol] 7.9 mg/dL Low 8.6 - 10. 3 mg/dL [facility] Chloride [Moles/Vol] 103 mmol/L 98 - 10 7 mmol/L [facility] CO2 [Moles/Vol] 23 mmol/L 21 - 32 mmol/L [facility] Creatinine [Mass/Vol] 3.93 mg/dL High 0.50 - 1.05 mg/dL [facility] GFR/1.73 sq M.predicted MDRD (S/P/Bld) [Vol rate/Area] 13 mL/min/{1.73_m2} Low - PINF [facility] Comment on above: Calculations of bree mated GFR are performed using the 2020 CKD-EPI Study Refit equation without the race variable for the IDMS-Traceable creatinine methods. https://jasn.asnjournals.org/content//ASN.401644 5183 Glucose [Mass/Vol] 96 mg/dL 74 - 99 mg/dL [facility] Interpretation and review of laboratory results Abnormal [facility] Potassium [Moles/Vol] 4.0 mmol/L 3.5 - 5.3 mmol/L [facility] Sodium [Moles/Vol] 135 mmol/L Low 136 - 145 mmol/L [facility] Urea nitrogen [Mass/Vol] 50 mg/dL High 6 - 23 mg/dL [facility] CBC panel Auto (Bld)on 10-28 Erythrocyte distribution width (RBC) [Ratio] 13.0 % 11.5 - 14.5 % [facility] Hematocrit (Bld) [Volume fraction] 32.7 % Low 36.0 - 46.0 % [facility] Hemoglobin (Bld) [Mass/Vol] 11.1 g/dL Low 12.0 - 16.0 g/dL [facility] Interpretation and review of laboratory results Abnormal [facility] MCH (RBC) [Entitic mass] 33.6 pg 26.0 - 34.0 pg [facility] MCHC (RBC) [Mass/Vol] 33.9 g/dL 32.0 - 36.0 g/dL [facility] MCV (RBC) [Entitic vol] 99 fL 80 - 100 fL [facility] Nucleated RBC/100 WBC (Bld) [Ratio] 0.0 % [facility] Platelets (Bld) [#/Vol] 179 10*3/uL [facility] RBC (Bld) [#/Vol] 3.30 10*6/uL Low [facility] WBC (Bld) [#/Vol] 8.5 10*3/uL [facility] Bacteria identified Cx Nom ( Bld)on 10-27-2023 Interpretation and review of laboratory results Normal [facility] Basic metabolic 2000 panelon 10-27-2023 Anion gap [Moles/Vol] 12 mmol/L 10 - 2 0 mmol/L [facility] Calcium [Mass/Vol] 7.4 mg/dL Low 8.6 - 10. 3 mg/dL [facility] Chloride [Moles/Vol] 103 mmol/L 98 - 10 7 mmol/L [facility] CO2 [Moles/Vol] 23 mmol/L 21 - 32 mmol/L [facility] Creatinine [Mass/Vol] 3.88 mg/dL High 0.50 - 1.05 mg/dL [facility] GFR/1.73 sq M.predicted MDRD (S/P/Bld) [Vol rate/Area] 13 mL/min/{1.73_m2} Low - PINF [facility] Comment on above: Calculations of bree mated GFR are performed using the 2020 CKD-EPI Study Refit equation without the race variable for the IDMS-Traceable creatinine methods. https://jasn.asnjournals.org/content//ASN.269489 0542 Glucose [Mass/Vol] 89 mg/dL 74 - 99 mg/dL [facility] Interpretation and review of laboratory results Abnormal [facility] Potassium [Moles/Vol] 3.9 mmol/L 3.5 - 5.3 mmol/L [facility] Sodium [Moles/Vol] 134 mmol/L Low 136 - 145 mmol/L [facility] Urea nitrogen [Mass/Vol] 47 mg/dL High 6 - 23 mg/dL [facility] Blood Cultureon 10-27-2023 Bacteria identified Cx Nom (Bld) No growth at 4 days - FINAL REPORT [facility] CBC W Auto Differential pane l (Bld)on 10-27-2023 Basophils (Bld) [#/Vol] 0.01 10*3/uL [facility] Basophils/100 WBC (Bld) 0.2 % 0.0 - 2.0 % [facility] Eosinophils (Bld) [#/Vol] 0.00 10*3/uL [facility] Eosinophils/100 WBC (Bld) 0.0 % 0.0 - 6.0 % [facility] Erythrocyte distribution width (RBC) [Ratio] 12.9 % 11.5 - 14.5 % [facility] Hematocrit (Bld) [Volume fraction] 30.5 % Low 36.0 - 46.0 % [facility] Hemoglobin (Bld) [Mass/Vol] 10.4 g/dL Low 12.0 - 16.0 g/dL [facility] Immature granulocytes (Bld) [#/Vol] 0.10 10*3/uL [facility] Immature granulocytes/100 WBC (Bld) 1.9 % High 0.0 - 0.9 % [facility] Comment on above: Immature Granulocyte Count (IG) includes promyelocytes, myelocytes and metamyelocytes but does not include bands. Percent differential counts (%) should be interpreted in the context of the absolute cell counts (cells/UL). Interpretation and review of laboratory results Abnormal [facility] Lymphocytes (Bld) [#/Vol] 0.40 10*3/uL Low [facility] Lymphocytes/100 WBC (Bld) 7.5 % 13.0 - 44.0 % [facility] MCH (RBC) [Entitic mass] 34.4 pg High 26.0 - 34.0 pg [facility] MCHC (RBC) [Mass/Vol] 34.1 g/dL 32.0 - 36.0 g/dL [facility] MCV (RBC) [Entitic vol] 101 fL High 80 - 100 fL [facility] Monocytes (Bld) [#/Vol] 0.33 10*3/uL [facility] Monocytes/100 WBC (Bld) 6.2 % 2.0 - 10.0 % [facility] Neutrophils (Bld) [#/Vol] 4.47 10*3/uL [facility] Comment on above: Percent differential counts (%) should be interpreted in the context of the absolute cell counts (cells/uL). Neutrophils/100 WBC (Bld) 84.2 % 40.0 - 80.0 % [facility] Nucleated RBC/100 WBC (Bld) [Ratio] 0.0 % [facility] Platelets (Bld) [#/Vol] 124 10*3/uL [facility] RBC (Bld) [#/Vol] 3.02 10*6/uL [facility] WBC (Bld) [#/Vol] 5.3 10*3/uL [facility] No Panel Informationon 10-27 [facility] Vancomycinon 10-27-2023 Vancomycin [Mass/Vol] 19.2 ug/mL 5.0 - 20.0 ug/mL [facility] Vancomycin [Mass/Vol]on Interpretation and review of laboratory results Normal [facility] Vancomycin levels can be monitored according to area under the curve (AUC) or concentration (ug/mL). The preferred monitoring strategy is determined by the patient's renal function and indication for therapy. For AUC monitoring, a random vancomycin level should be interpreted in the context of AUC rather than the concentration at a single point in time. For concentration monitoring, a trough concentration drawn immediately prior to the next dose is preferred. Therapeutic ranges using concentration-guided results: Peak (all ages): 30.0-40.0 ug/mL Trough (all ages): 10.0-20.0 ug/mL [facility] Basic metabolic 2000 panelon 10-26-2023 Anion gap [Moles/Vol] 15 mmol/L 10 - 2 0 mmol/L [facility] Calcium [Mass/Vol] 6.8 mg/dL Low 8.6 - 10. 3 mg/dL [facility] Chloride [Moles/Vol] 102 mmol/L 98 - 10 7 mmol/L [facility] CO2 [Moles/Vol] 20 mmol/L Low 21 - 32 mmol/L [facility] Creatinine [Mass/Vol] 3.38 mg/dL High 0.50 - 1.05 mg/dL [facility] GFR/1.73 sq M.predicted MDRD (S/P/Bld) [Vol rate/Area] 16 mL/min/{1.73_m2} Low - PINF [facility] Comment on above: Calculations of bree mated GFR are performed using the 2020 CKD-EPI Study Refit equation without the race variable for the IDMS-Traceable creatinine methods. https://jasn.asnjournals.org/content//ASN.987585 9927 Glucose [Mass/Vol] 99 mg/dL 74 - 99 mg/dL [facility] Interpretation and review of laboratory results Abnormal [facility] Potassium [Moles/Vol] 3.5 mmol/L 3.5 - 5.3 mmol/L [facility] Sodium [Moles/Vol] 133 mmol/L Low 136 - 145 mmol/L [facility] Urea nitrogen [Mass/Vol] 40 mg/dL High 6 - 23 mg/dL [facility] CBC W Auto Differential pane l (Bld)on 10-26-2023 Basophils (Bld) [#/Vol] 0.01 10*3/uL [facility] Basophils/100 WBC (Bld) 0.2 % 0.0 - 2.0 % [facility] Eosinophils (Bld) [#/Vol] 0.00 10*3/uL [facility] Eosinophils/100 WBC (Bld) 0.0 % 0.0 - 6.0 % [facility] Erythrocyte distribution width (RBC) [Ratio] 13.0 % 11.5 - 14.5 % [facility] Hematocrit (Bld) [Volume fraction] 31.1 % Low 36.0 - 46.0 % [facility] Hemoglobin (Bld) [Mass/Vol] 10.4 g/dL Low 12.0 - 16.0 g/dL [facility] Immature granulocytes (Bld) [#/Vol] 0.09 10*3/uL [facility] Immature granulocytes/100 WBC (Bld) 1.5 % High 0.0 - 0.9 % [facility] Comment on above: Immature Granulocyte Count (IG) includes promyelocytes, myelocytes and metamyelocytes but does not include bands. Percent differential counts (%) should be interpreted in the context of the absolute cell counts (cells/UL). Interpretation and review of laboratory results Abnormal [facility] Lymphocytes (Bld) [#/Vol] 0.38 10*3/uL Low [facility] Lymphocytes/100 WBC (Bld) 6.2 % 13.0 - 44.0 % [facility] MCH (RBC) [Entitic mass] 33.8 pg 26.0 - 34.0 pg [facility] MCHC (RBC) [Mass/Vol] 33.4 g/dL 32.0 - 36.0 g/dL [facility] MCV (RBC) [Entitic vol] 101 fL High 80 - 100 fL [facility] Monocytes (Bld) [#/Vol] 0.22 10*3/uL [facility] Monocytes/100 WBC (Bld) 3.6 % 2.0 - 10.0 % [facility] Neutrophils (Bld) [#/Vol] 5.41 10*3/uL [facility] Comment on above: Percent differential counts (%) should be interpreted in the context of the absolute cell counts (cells/uL). Neutrophils/100 WBC (Bld) 88.5 % 40.0 - 80.0 % [facility] Nucleated RBC/100 WBC (Bld) [Ratio] 0.0 % [facility] Platelets (Bld) [#/Vol] 117 10*3/uL [facility] RBC (Bld) [#/Vol] 3.08 10*6/uL [facility] WBC (Bld) [#/Vol] 6.1 10*3/uL [facility] Vancomycin trough [Mass/Vol] on 10-26-2023 Interpretation and review of laboratory results Abnormal [facility] Vancomycin, Troughon 023 Vancomycin trough [Mass/Vol] 23.9 ug/mL Critically high 5.0 - 20.0 ug/mL [facility] Comment on above: Therapeutic Ranges: Peak (all ages): 30.0-40.0 ug/mL Trough (all ages): 10.0-20.0 ug/mL Vancomycin trough concentrations drawn immediately prior to the next dose at steady-state are preferred for concentration-guided monitoring of patients treated with vancomycin. Reference: Am J Health-Syst Pharm. 2020; 77(11):835-864. Bacteria identified Respirat ory culture Nom (Unsp spec)Ordered By: Marcella Rivas on 10-25-2023 Interpretation and review of laboratory results Abnormal [facility] Microscopic observation Gram stain Nom (Unsp spec) (4+) Abundant Polymorphonuclear leukocytes Abnormal [facility] Microscopic observation Gram stain Nom (Unsp spec) Positive Abnormal [facility] Basic metabolic 2000 panelon 10-25-2023 Anion gap [Moles/Vol] 15 mmol/L 10 - 2 0 mmol/L [facility] Calcium [Mass/Vol] 6.0 mg/dL Low 8.6 - 10. 3 mg/dL [facility] Chloride [Moles/Vol] 103 mmol/L 98 - 10 7 mmol/L [facility] CO2 [Moles/Vol] 18 mmol/L Low 21 - 32 mmol/L [facility] Creatinine [Mass/Vol] 2.91 mg/dL High 0.50 - 1.05 mg/dL [facility] Comment on above: Reviewed with previo us results GFR/1.73 sq M.predicted MDRD (S/P/Bld) [Vol rate/Area] 19 mL/min/{1.73_m2} Low - PINF [facility] Comment on above: Calculations of bree mated GFR are performed using the 2020 CKD-EPI Study Refit equation without the race variable for the IDMS-Traceable creatinine methods. https://jasn.asnjournals.org/content//ASN.267853 6892 Glucose [Mass/Vol] 102 mg/dL High 74 - 99 mg/dL [facility] Interpretation and review of laboratory results Abnormal [facility] Potassium [Moles/Vol] 4.0 mmol/L 3.5 - 5.3 mmol/L [facility] Comment on above: MILD HEMOLYSIS DETEC SLY. The result may be falsely elevated due to hemolysis or other interferents. Clinical correlation is recommended. Repeat testing may be considered. Sodium [Moles/Vol] 132 mmol/L Low 136 - 145 mmol/L [facility] Urea nitrogen [Mass/Vol] 33 mg/dL High 6 - 23 mg/dL [facility] CBC W Auto Differential pane l (Bld)on 10-25-2023 Basophils (Bld) [#/Vol] 0.01 10*3/uL [facility] Basophils/100 WBC (Bld) 0.2 % 0.0 - 2.0 % [facility] Eosinophils (Bld) [#/Vol] 0.00 10*3/uL [facility] Eosinophils/100 WBC (Bld) 0.0 % 0.0 - 6.0 % [facility] Erythrocyte distribution width (RBC) [Ratio] 13.2 % 11.5 - 14.5 % [facility] Hematocrit (Bld) [Volume fraction] 33.3 % Low 36.0 - 46.0 % [facility] Hemoglobin (Bld) [Mass/Vol] 10.9 g/dL Low 12.0 - 16.0 g/dL [facility] Immature granulocytes (Bld) [#/Vol] 0.09 10*3/uL [facility] Immature granulocytes/100 WBC (Bld) 1.5 % High 0.0 - 0.9 % [facility] Comment on above: Immature Granulocyte Count (IG) includes promyelocytes, myelocytes and metamyelocytes but does not include bands. Percent differential counts (%) should be interpreted in the context of the absolute cell counts (cells/UL). Interpretation and review of laboratory results Abnormal [facility] Lymphocytes (Bld) [#/Vol] 0.31 10*3/uL Low [facility] Lymphocytes/100 WBC (Bld) 5.3 % 13.0 - 44.0 % [facility] MCH (RBC) [Entitic mass] 33.9 pg 26.0 - 34.0 pg [facility] MCHC (RBC) [Mass/Vol] 32.7 g/dL 32.0 - 36.0 g/dL [facility] MCV (RBC) [Entitic vol] 103 fL High 80 - 100 fL [facility] Monocytes (Bld) [#/Vol] 0.32 10*3/uL [facility] Monocytes/100 WBC (Bld) 5.5 % 2.0 - 10.0 % [facility] Neutrophils (Bld) [#/Vol] 5.11 10*3/uL [facility] Comment on above: Percent differential counts (%) should be interpreted in the context of the absolute cell counts (cells/uL). Neutrophils/100 WBC (Bld) 87.5 % 40.0 - 80.0 % [facility] Nucleated RBC/100 WBC (Bld) [Ratio] 0.0 % [facility] Platelets (Bld) [#/Vol] 115 10*3/uL [facility] RBC (Bld) [#/Vol] 3.22 10*6/uL [facility] WBC (Bld) [#/Vol] 5.8 10*3/uL [facility] Electrocardiogram, 12-lead P RN ACS symptomsOrdered By: Grey Avilez on 10-25-2023 Atrial Rate 145 BPM [facility] Work Phone: PA Interval 152 ms [facility] Work Phone: Q Onset 220 ms [facility] Work Phone: QRS Count 24 beats [facility] Work Phone: QRS Duration 82 ms [facility] Work Phone: QT Interval 284 ms [facility] Work Phone: QTC Calculation(Bazett) 441 ms [facility] Work Phone: QTC Fredericia 381 ms [facility] Work Phone: R Orange 32 degrees [facility] Work Phone: T Orange 54 degrees [facility] Work Phone: T Offset 362 ms [facility] Work Phone: Ventricular [facility] Work Phone: Electrocardiogram, 12-lead P RN ACS symptomson 10-25-2023 Long RP tachycardia (sinus vs atrial) Low voltage QRS Borderline ECG When compared with ECG of 22-OCT-2023 20:36, Previous ECG has undetermined rhythm, needs review Confirmed by Grey Avilez (85) on 10/25/2023 2:18:59 PM MUSE Grey Avilez MD - 10/25/2023 Long RP tachycardia (sinus vs atrial) Low voltage QRS Borderline ECG When compared with ECG of 22-OCT-2023 20:36, Previous ECG has undetermined rhythm, needs review Confirmed by Grey Avilez (85) on 10/25/2023 2:18:59 PM [facility] Work Phone: Magnesiumon 10-25-2023 Magnesium [Mass/Vol] 2.02 mg/dL 1.60 - 2.40 mg/dL [facility] Comment on above: MILD HEMOLYSIS DETEC SLY. The result may be falsely elevated due to hemolysis or other interferents. Clinical correlation is recommended. Repeat testing may be considered. Magnesium [Mass/Vol]on 10-25 Interpretation and review of laboratory results Normal [facility] Respiratory Culture/SmearOrd ered By: Marcella Rivas on 10-25-2023 Bacteria identified Respiratory culture Nom (Unsp spec) (4+) Abundant Methicillin Resistant Staphylococcus aureus (MRSA) Abnormal [facility] Comment on above: Methicillin (Oxacill in) resistant Staphylococci are resistant to all currently available Penicillins, Beta-lactam/Beta-lactamase inhibitor combinations (including Ampicillin/Sulbactam, Amoxicillin/Clavulanate and Pipercillin/Tazobactam), Carbapenems and Cephalosporins (except Ceftaroline). Vancomycin trough [Mass/Vol] on 10-25-2023 Interpretation and review of laboratory results Abnormal [facility] Vancomycin, Troughon 023 Vancomycin trough [Mass/Vol] 27.9 ug/mL Critically high 5.0 - 20.0 ug/mL [facility] Comment on above: Therapeutic Ranges: Peak (all ages): 30.0-40.0 ug/mL Trough (all ages): 10.0-20.0 ug/mL Vancomycin trough concentrations drawn immediately prior to the next dose at steady-state are preferred for concentration-guided monitoring of patients treated with vancomycin. Reference: Am J Health-Syst Pharm. 2020; 77(11):835-864. CBC W Auto Differential pane l (Bld)on 10-24-2023 Basophils (Bld) [#/Vol] 0.01 10*3/uL [facility] Basophils/100 WBC (Bld) 0.1 % 0.0 - 2.0 % [facility] Eosinophils (Bld) [#/Vol] 0.00 10*3/uL [facility] Eosinophils/100 WBC (Bld) 0.0 % 0.0 - 6.0 % [facility] Erythrocyte distribution width (RBC) [Ratio] 13.2 % 11.5 - 14.5 % [facility] Hematocrit (Bld) [Volume fraction] 35.5 % Low 36.0 - 46.0 % [facility] Hemoglobin (Bld) [Mass/Vol] 11.4 g/dL Low 12.0 - 16.0 g/dL [facility] Immature granulocytes (Bld) [#/Vol] 0.14 10*3/uL [facility] Immature granulocytes/100 WBC (Bld) 1.7 % High 0.0 - 0.9 % [facility] Comment on above: Immature Granulocyte Count (IG) includes promyelocytes, myelocytes and metamyelocytes but does not include bands. Percent differential counts (%) should be interpreted in the context of the absolute cell counts (cells/UL). Interpretation and review of laboratory results Abnormal [facility] Lymphocytes (Bld) [#/Vol] 0.35 10*3/uL Low [facility] Lymphocytes/100 WBC (Bld) 4.4 % 13.0 - 44.0 % [facility] MCH (RBC) [Entitic mass] 33.3 pg 26.0 - 34.0 pg [facility] MCHC (RBC) [Mass/Vol] 32.1 g/dL 32.0 - 36.0 g/dL [facility] MCV (RBC) [Entitic vol] 104 fL High 80 - 100 fL [facility] Monocytes (Bld) [#/Vol] 0.41 10*3/uL [facility] Monocytes/100 WBC (Bld) 5.1 % 2.0 - 10.0 % [facility] Neutrophils (Bld) [#/Vol] 7.10 10*3/uL [facility] Comment on above: Percent differential counts (%) should be interpreted in the context of the absolute cell counts (cells/uL). Neutrophils/100 WBC (Bld) 88.7 % 40.0 - 80.0 % [facility] Nucleated RBC/100 WBC (Bld) [Ratio] 0.0 % [facility] Platelets (Bld) [#/Vol] 111 10*3/uL Low [facility] RBC (Bld) [#/Vol] 3.42 10*6/uL [facility] WBC (Bld) [#/Vol] 8.0 10*3/uL [facility] Comprehensive metabolic 2000 panelon 10-24-2023 Albumin BCP dye [Mass/Vol] 2.7 g/dL Low 3.4 - 5.0 g/dL [facility] ALP [Catalytic activity/Vol] 59 U/L 33 - 110 U/L [facility] ALT With P-5'-P [Catalytic activity/Vol] 4 U/L Low 7 - 45 U/L [facility] Comment on above: Patients treated wit h Sulfasalazine may generate falsely decreased results for ALT. Anion gap [Moles/Vol] 14 mmol/L 10 - 2 0 mmol/L [facility] AST With P-5'-P [Catalytic activity/Vol] 19 U/L 9 - 39 U/L [facility] Bilirubin [Mass/Vol] 0.4 mg/dL 0.0 - 1 .2 mg/dL [facility] Calcium [Mass/Vol] 5.7 mg/dL Low 8.6 - 10. 3 mg/dL [facility] Chloride [Moles/Vol] 102 mmol/L 98 - 10 7 mmol/L [facility] CO2 [Moles/Vol] 21 mmol/L 21 - 32 mmol/L [facility] Creatinine [Mass/Vol] 2.32 mg/dL High 0.50 - 1.05 mg/dL [facility] GFR/1.73 sq M.predicted MDRD (S/P/Bld) [Vol rate/Area] 25 mL/min/{1.73_m2} Low - PINF [facility] Comment on above: Calculations of bree mated GFR are performed using the 2020 CKD-EPI Study Refit equation without the race variable for the IDMS-Traceable creatinine methods. https://jasn.asnjournals.org/content//ASN.480077 6191 Glucose [Mass/Vol] 104 mg/dL High 74 - 99 mg/dL [facility] Potassium [Moles/Vol] 4.0 mmol/L 3.5 - 5.3 mmol/L [facility] Protein [Mass/Vol] 5.2 g/dL Low 6.4 - 8.2 g/dL [facility] Sodium [Moles/Vol] 133 mmol/L Low 136 - 145 mmol/L [facility] Urea nitrogen [Mass/Vol] 30 mg/dL High 6 - 23 mg/dL [facility] Gas panel (BldA)on 3 Base excess Calc (Bld) [Moles/Vol] -7.4000 mmol/L Low -2.0 - 3.0 mmol/L [facility] CO2 (Bld) [Partial pressure] 45 mm[Hg] High [facility] HCO3 (Bld) [Moles/Vol] 19.7 mmol/L Low 22.0 - 26.0 mmol/L [facility] Inhaled oxygen concentration 40 % [facility] Interpretation and review of laboratory results Abnormal [facility] Oxygen (Bld) [Partial pressure] 63 mm[Hg] Low [facility] Oxyhemoglobin (BldA) [Mass fraction] 93.0 % Low 94.0 - 98.0 % [facility] Peep CHM2O 5.0 cm H2O [facility] pH (Bld) 7.25 [pH] Critically low 7.38 - 7.42 pH [facility] Tidal Volume 350 mL [facility] Ventilator Mode A/C [facility] Ventilator Rate 24 bpm [facility] Magnesiumon 10-24-2023 Magnesium [Mass/Vol] 1.51 mg/dL Low 1.60 - 2.40 mg/dL [facility] No Panel Informationon 10-24 Interpretation and review of laboratory results Abnormal [facility] Phosphate [Mass/Vol]on 10-24 Interpretation and review of laboratory results Normal [facility] Phosphoruson 10-24-2023 Phosphate [Mass/Vol] 3.5 mg/dL 2.5 - 4 .9 mg/dL [facility] Comment on above: The performance sheela acteristics of phosphorus testing in heparinized plasma have been validated by the individual laboratory site where testing is performed. Testing on heparinized plasma is not approved by the FDA; however, such approval is not necessary. ProcalcitoninOrdered By: Brannon De La Fuente on 10-24-2023 Procalcitonin [Mass/Vol] 0.32 ng/mL High NINF - 0.07 ng/mL [facility] Procalcitonin [Mass/Vol]Orde red By: Bennett De La Fuente on 10-24-2023 Interpretation and review of laboratory results Abnormal [facility] Procalcitonin (PCT) results measured serially can aid in decision-making for antibiotic discontinuation in patients with suspected or confirmed sepsis in conjunction with additional clinical information. Antibiotic discontinuation may be considered with a change in PCT of >80% from the peak result or when PCT falls below 0.50 ng/mL. Procalcitonin results should not be used in isolation but should be interpreted in conjunction with additional clinical and laboratory findings. Procalcitonin results should not be used to guide the initiation of antibiotic therapy. Falsely low PCT values in the presence of bacterial infection may occur in early infection, with atypical pathogens, localized infections, and subacute infectious endocarditis. Falsely elevated results outside of severe bacterial infection/sepsis may be seen in patients with renal failure or insufficiency, severe trauma or page, recent major abdominal/cardiac surgery, acute multi-organ failure, rarely in patients with medullary thyroid carcinoma and rare neuroendocrine tumors, and non-specific interfering antibodies (heterophile antibodies, rheumatoid factor, human anti-mouse antibodies (HAMA), etc). Performance of the PCT test in pediatric patients (<18yo), women, immunocompromised patients, and patients on immunomodulatory medications has not been evaluated. [facility] TSHon 10-24-2023 TSH Qn 1.17 m[IU]/L [facility] TSH Qnon 10-24-2023 Interpretation and review of laboratory results Normal [facility] TSH testing is performed using different testing methodology at [facility] than at other [facility]. Direct result comparisons should only be made within the same method. [facility] Vancomycin, Troughon 023 Vancomycin trough [Mass/Vol] 39.5 ug/mL Critically high 5.0 - 20.0 ug/mL [facility] Comment on above: Therapeutic Ranges: Peak (all ages): 30.0-40.0 ug/mL Trough (all ages): 10.0-20.0 ug/mL Vancomycin trough concentrations drawn immediately prior to the next dose at steady-state are preferred for concentration-guided monitoring of patients treated with vancomycin. Reference: Am J Health-Syst Pharm. 2020; 77(11):835-864. Calcium, ionizedon 3 Calcium.ionized (Bld) [Moles/Vol] 0.78 mmol/L Low 1.1 - 1.33 mmol/L [facility] Comment on above: The performance sheela acteristics of ionized calcium tested in heparinized plasma or serum have been validated by the individual laboratory site where testing is performed. Testing on heparinized plasma or serum is not approved by the FDA; however, such approval is not necessary. Calcium.ionized (Bld) [Moles /Vol]on 10-23-2023 Interpretation and review of laboratory results Abnormal [facility] Gas and Carbon monoxide and Electrolytes panel (BldA)on 10-23-2023 Anion gap 4 (BldA) [Moles/Vol] [facility] Comment on above: NO RESULT Base excess Calc (Bld) [Moles/Vol] [facility] Comment on above: NO RESULT Calcium.ionized (BldA) [Moles/Vol] 0.92 mmol/L Low 1.10 - 1.33 mmol/L [facility] Chloride (BldA) [Moles/Vol] 100 mmol/L 98 - 107 mmol/L [facility] CO2 (Bld) [Partial pressure] Critically high [facility] Glucose [Mass/Vol] 168 mg/dL High 74 - 99 mg/dL [facility] HCO3 (Bld) [Moles/Vol] [facility] Comment on above: NO RESULT Hematocrit Est (Bld) [Volume fraction] 38.0 % 36.0 - 46.0 % [facility] Hemoglobin (Bld) [Mass/Vol] 12.8 g/dL 12.0 - 16.0 g/dL [facility] Inhaled oxygen concentration 52 % [facility] Interpretation and review of laboratory results Abnormal [facility] Lactate (BldA) [Moles/Vol] 0.5 mmol/L 0.4 - 2.0 mmol/L [facility] Oxygen (Bld) [Partial pressure] 136 mm[Hg] High [facility] Oxyhemoglobin (BldA) [Mass fraction] 97.1 % 94.0 - 98.0 % [facility] pH (Bld) 6.88 [pH] Critically low 7.38 - 7.42 pH [facility] Potassium (BldA) [Moles/Vol] 5.7 mmol/L High 3.5 - 5.3 mmol/L [facility] Sodium (BldA) [Moles/Vol] 133 mmol/L Low 136 - 145 mmol/L [facility] Gas panel (BldA)on 3 Base excess Calc (Bld) [Moles/Vol] -10.94037 mmol/L Low -2.0 - 3.0 mmol/L [facility] CO2 (Bld) [Partial pressure] 74 mm[Hg] Critically high [facility] HCO3 (Bld) [Moles/Vol] 21.0 mmol/L Low 22.0 - 26.0 mmol/L [facility] Inhaled oxygen concentration 60 % [facility] Interpretation and review of laboratory results Abnormal [facility] Oxygen (Bld) [Partial pressure] 63 mm[Hg] Low [facility] Oxyhemoglobin (BldA) [Mass fraction] 92.3 % Low 94.0 - 98.0 % [facility] pH (Bld) 7.06 [pH] Critically low 7.38 - 7.42 pH [facility] Arterial patency Wrist artery --pre arterial puncture Positive [facility] Base excess Calc (Bld) [Moles/Vol] -10.76228 mmol/L Low -2.0 - 3.0 mmol/L [facility] CO2 (Bld) [Partial pressure] 95 mm[Hg] Critically high [facility] HCO3 (Bld) [Moles/Vol] 22.9 mmol/L 22.0 - 26.0 mmol/L [facility] Inhaled oxygen concentration 60 % [facility] Interpretation and review of laboratory results Abnormal [facility] Oxygen (Bld) [Partial pressure] 58 mm[Hg] Low [facility] Oxyhemoglobin (BldA) [Mass fraction] 89.2 % Low 94.0 - 98.0 % [facility] Peep CHM2O 5.0 cm H2O [facility] pH (Bld) 6.99 [pH] Critically low 7.38 - 7.42 pH [facility] Specimen drawn from Nom Radial Right [facility] Tidal Volume 350 mL [facility] Ventilator Mode A/C [facility] Ventilator Rate 24 bpm [facility] MRSA DNA CRISTHIAN+probe Ql (Nose) on 10-23-2023 Interpretation and review of laboratory results Abnormal [facility] MRSA DNA CRISTHIAN+probe Ql (Unsp spec) Detected Abnormal Not Detected [facility] This assay is an FDA-approved in vitro diagnostic nucleic acid amplification test for the detection of methicillin-resistant Staphylococcus aureus (MRSA) DNA directly from nasal swabs in patients at risk for nasal colonization. MRSA NxG is intended to aid in the prevention and control of MRSA infections in healthcare settings. This assay is NOT intended to diagnose, guide, or monitor treatment for MRSA infections, or provide results of susceptibility to methicillin. A negative result does not preclude MRSA nasal colonization. Test performance has not been evaluated in patients less than two years of age. [facility] Basic metabolic 2000 panelon 10-22-2023 Anion gap [Moles/Vol] 17 mmol/L 10 - 2 0 mmol/L [facility] Calcium [Mass/Vol] 6.5 mg/dL Low 8.6 - 10. 3 mg/dL [facility] Chloride [Moles/Vol] 95 mmol/L Low 98 - 10 7 mmol/L [facility] CO2 [Moles/Vol] 24 mmol/L 21 - 32 mmol/L [facility] Creatinine [Mass/Vol] 1.52 mg/dL High 0.50 - 1.05 mg/dL [facility] GFR/1.73 sq M.predicted MDRD (S/P/Bld) [Vol rate/Area] 41 mL/min/{1.73_m2} Low - PINF [facility] Comment on above: Calculations of bree mated GFR are performed using the 2020 CKD-EPI Study Refit equation without the race variable for the IDMS-Traceable creatinine methods. https://jasn.asnjournals.org/content/early/ASN.751613 5112 Glucose [Mass/Vol] 146 mg/dL High 74 - 99 mg/dL [facility] Potassium [Moles/Vol] 3.8 mmol/L 3.5 - 5.3 mmol/L [facility] Sodium [Moles/Vol] 132 mmol/L Low 136 - 145 mmol/L [facility] Urea nitrogen [Mass/Vol] 26 mg/dL High 6 - 23 mg/dL [facility] CBC W Auto Differential pane l (Bld)on 10-22-2023 Basophils (Bld) [#/Vol] 0.02 10*3/uL [facility] Basophils/100 WBC (Bld) 0.2 % 0.0 - 2.0 % [facility] Eosinophils (Bld) [#/Vol] 0.00 10*3/uL [facility] Eosinophils/100 WBC (Bld) 0.0 % 0.0 - 6.0 % [facility] Erythrocyte distribution width (RBC) [Ratio] 13.2 % 11.5 - 14.5 % [facility] Hematocrit (Bld) [Volume fraction] 38.1 % 36.0 - 46.0 % [facility] Hemoglobin (Bld) [Mass/Vol] 12.8 g/dL 12.0 - 16.0 g/dL [facility] Immature granulocytes (Bld) [#/Vol] 0.04 10*3/uL [facility] Immature granulocytes/100 WBC (Bld) 0.5 % 0.0 - 0.9 % [facility] Comment on above: Immature Granulocyte Count (IG) includes promyelocytes, myelocytes and metamyelocytes but does not include bands. Percent differential counts (%) should be interpreted in the context of the absolute cell counts (cells/UL). Interpretation and review of laboratory results Abnormal [facility] Lymphocytes (Bld) [#/Vol] 0.44 10*3/uL Low [facility] Lymphocytes/100 WBC (Bld) 5.3 % 13.0 - 44.0 % [facility] MCH (RBC) [Entitic mass] 33.9 pg 26.0 - 34.0 pg [facility] MCHC (RBC) [Mass/Vol] 33.6 g/dL 32.0 - 36.0 g/dL [facility] MCV (RBC) [Entitic vol] 101 fL High 80 - 100 fL [facility] Monocytes (Bld) [#/Vol] 0.61 10*3/uL [facility] Monocytes/100 WBC (Bld) 7.3 % 2.0 - 10.0 % [facility] Neutrophils (Bld) [#/Vol] 7.21 10*3/uL [facility] Comment on above: Percent differential counts (%) should be interpreted in the context of the absolute cell counts (cells/uL). Neutrophils/100 WBC (Bld) 86.7 % 40.0 - 80.0 % [facility] Nucleated RBC/100 WBC (Bld) [Ratio] 0.0 % [facility] Platelets (Bld) [#/Vol] 196 10*3/uL [facility] RBC (Bld) [#/Vol] 3.78 10*6/uL Low [facility] WBC (Bld) [#/Vol] 8.3 10*3/uL [facility] FLUAV and FLUBV RNA CRISTHIAN+prob e Nom (Unsp spec)on 10-22-2023 FLUAV RNA CRISTHIAN+probe Ql (Resp) Not detected Not Detected [facility] FLUBV RNA CRISTHIAN+probe Ql (Resp) Not detected Not Detected [facility] This assay is an in vitro diagnostic multiplex nucleic acid amplification test for the detection and discrimination of Influenza A & B from nasopharyngeal specimens, and has been validated for use at [facility]. Negative results do not preclude Influenza A/B infections, and should not be used as the sole basis for diagnosis, treatment, or other management decisions. If Influenza A/B and RSV PCR results are negative, testing for Parainfluenza virus, Adenovirus and Metapneumovirus is routinely performed for [facility] [place]ology and intensive care inpatients, and is available on other patients by placing an add-on request. [facility] FLUAV RNA CRISTHIAN+probe Ql (Resp) Not detected Not Detected [facility] FLUBV RNA CRISTHIAN+probe Ql (Resp) Not detected Not Detected [facility] This assay is an in vitro diagnostic multiplex nucleic acid amplification test for the detection and discrimination of Influenza A & B from nasopharyngeal specimens, and has been validated for use at [facility]. Negative results do not preclude Influenza A/B infections, and should not be used as the sole basis for diagnosis, treatment, or other management decisions. If Influenza A/B and RSV PCR results are negative, testing for Parainfluenza virus, Adenovirus and Metapneumovirus is routinely performed for [facility] [place]ology and intensive care inpatients, and is available on other patients by placing an add-on request. [facility] Lactateon 10-22-2023 Lactate [Moles/Vol] 2.0 mmol/L 0.4 - 2. 0 mmol/L [facility] Lactate [Moles/Vol]on 2022 Interpretation and review of laboratory results Normal [facility] Venipuncture immediately after or during the administration of Metamizole may lead to falsely low results. Testing should be performed immediately prior to Metamizole dosing. [facility] Magnesiumon 10-22-2023 Magnesium [Mass/Vol] 0.85 mg/dL Low 1.60 - 2.40 mg/dL [facility] Natriuretic peptide B [Mass/ Vol]on 10-22-2023 Interpretation and review of laboratory results Normal [facility] Natriuretic peptide B (Bld) [Mass/Vol] 30 pg/mL 0 - 99 pg/mL [facility] <100 pg/mL - Heart failure unlikely 100-299 pg/mL - Intermediate probability of acute heart failure exacerbation. Correlate with clinical context and patient history. >=300 pg/mL - Heart Failure likely. Correlate with clinical context and patient history. BNP testing is performed using different testing methodology at [facility] than at other [facility]. Direct result comparisons should only be made within the same method. [facility] No Panel Informationon 10-22 Interpretation and review of laboratory results Normal [facility] Interpretation and review of laboratory results Normal [facility] Interpretation and review of laboratory results Abnormal [facility] RSV PCRon 10-22-2023 RSV RNA CRISTHIAN+probe Ql (Resp) Not detected Not Detected [facility] RSV RNA CRISTHIAN+probe Ql (Resp)o n 10-22-2023 This assay is an FDA-cleared, in vitro diagnostic nucleic acid amplification test for the detection of RSV from nasopharyngeal specimens, and has been validated for use at [facility]. Negative results do not preclude RSV infections, and should not be used as the sole basis for diagnosis, treatment, or other management decisions. If Influenza A/B and RSV PCR results are negative, testing for Parainfluenza virus, Adenovirus and Metapneumovirus is routinely performed for pediatric oncology and intensive care inpatients at [facility], and is available on other patients by placing an add-on request. [facility] SARS-CoV-2 (COVID-19) RNA NA A+probe Ql (Resp)on 10-22-2023 This assay has recei karen FDA Emergency Use Authorization (EUA) and is only authorized for the duration of time that circumstances exist to justify the authorization of the emergency use of in vitro diagnostic tests for the detection of SARS-CoV-2 virus and/or diagnosis of COVID-19 infection under section 564(b)(1) of the Act, 21 U.S.C. 360bbb-3(b)(1). This assay is an in vitro diagnostic nucleic acid amplification test for the qualitative detection of SARS-CoV-2 from nasopharyngeal specimens and has been validated for use at [facility]. Negative results do not preclude COVID-19 infections and should not be used as the sole basis for diagnosis, treatment, or other management decisions. [facility] SARS-CoV-2 (COVID-19) RNA NA A+probe Ql (Resp)Ordered By: Ludy Ambriz on 10-22-2023 Interpretation and review of laboratory results Normal [facility] This assay has recei karen FDA Emergency Use Authorization (EUA) and is only authorized for the duration of time that circumstances exist to justify the authorization of the emergency use of in vitro diagnostic tests for the detection of SARS-CoV-2 virus and/or diagnosis of COVID-19 infection under section 564(b)(1) of the Act, 21 U.S.C. 360bbb-3(b)(1). This assay is an in vitro diagnostic nucleic acid amplification test for the qualitative detection of SARS-CoV-2 from nasopharyngeal specimens and has been validated for use at [facility]. Negative results do not preclude COVID-19 infections and should not be used as the sole basis for diagnosis, treatment, or other management decisions. [facility] Sars-CoV-2 PCR, Screen Asymp tomaticon 10-22-2023 SARS-CoV-2 (COVID-19) RNA CRISTHIAN+probe Ql (Resp) Not detected Not Detected [facility] Sars-CoV-2 PCR, Screen Asymp tomaticOrdered By: Ludy Ambriz on 10-22-2023 SARS-CoV-2 (COVID-19) RNA CRISTHIAN+probe Ql (Resp) Not detected Not Detected [facility] Tropinin I.cardiac panel Hig h sensitivity methodon 10-22-2023 Interpretation and review of laboratory results Normal [facility] Less than 99th percentile of normal range cutoff- Female and children under 18 years old <14 ng/L; Male <21 ng/L: Negative Repeat testing should be performed if clinically indicated. Female and children under 18 years old 14-50 ng/L; Male 21-50 ng/L: Consistent with possible cardiac damage and possible increased clinical risk. Serial measurements may help to assess extent of myocardial damage. >50 ng/L: Consistent with cardiac damage, increased clinical risk and myocardial infarction. Serial measurements may help assess extent of myocardial damage. NOTE: Children less than 1 year old may have higher baseline troponin levels and results should be interpreted in conjunction with the overall clinical context. NOTE: Troponin I testing is performed using a different testing methodology at [facility] than at other [facility]. Direct result comparisons should only be made within the same method. [facility] Troponin I, High Sensitivity on 10-22-2023 Tropinin I.cardiac panel High sensitivity method 8 ng/L 0 - 13 ng/L [facility] XR Chest Single viewon 10-22 Interpreted By: John Pastrana, STUDY: XR CHEST 1 VIEW; 10/22/2023 9:03 pm INDICATION: Signs/Symptoms:Shortnes s of breath. COMPARISON: 04/25/2022 ACCESSION NUMBER(S): [id number] ORDERING CLINICIAN: DAVID BRANHAM FINDINGS: Partial visualization of tracheostomy. The cardiomediastinal silhouette and pulmonary vasculature are within normal limits. There is subtle opacities at the lung bases that are likely abdominal interstitial with small airspace component possible. The upper lungs are clear. No pleural effusion or pneumothorax. [facility] John Pastrana MD - 10/22/2023 Interpreted By: John Pastrana, STUDY: XR CHEST 1 VIEW; 10/22/2023 9:03 pm INDICATION: Signs/Symptoms:Shortnes s of breath. COMPARISON: 04/25/2022 ACCESSION NUMBER(S): [id number] ORDERING CLINICIAN: DAVID BRANHAM FINDINGS: Partial visualization of tracheostomy. The cardiomediastinal silhouette and pulmonary vasculature are within normal limits. There is subtle opacities at the lung bases that are likely abdominal interstitial with small airspace component possible. The upper lungs are clear. No pleural effusion or pneumothorax. IMPRESSION: Ill-defined bibasilar mixed interstitial/airspace opacities that may be related to pneumonia such as COVID-19 or micro aspiration given history tracheostomy. MACRO: None. Signed by: John Pastrana 10/22/2023 10:02 PM Dictation workstation: [id number] [facility] Work Phone: Radiology Study observation (narrative) [facility] Work Phone: XR Chest Single viewOrdered By: John Pastrana on 10-22-2023 [facility] Work Phone: Clostridium difficile detect ion by polymerase chain reactionOrdered By: Dr. Church on 03-31-2023 C. difficile DNA CRISTHIAN+probe Ql (Unsp spec) [facility] EP PanelOrdered By: Dr. Flakita ferrer on 03-31-2023 Gastrointestinal pathogens panel CRISTHIAN+probe (Stl) [facility] Absolute lymphocyte countOrd ered By: Dr. Church on 03-30-2023 Lymphocytes Auto (Unsp spec) [#/Vol] 2.39 10*3/uL 0.83-4.51 [facility] Basophil percentageOrdered B y: Dr. Church on 03-30-2023 Basophils/100 WBC (Bld) 1.7 % 0-1 [facility] Bilirubin [Mass/Vol] 0.30 mg/dL 0.20-1.00 [facility] Comment on above: For patients on eltr ombopag therapy, use of Dimension [place] TBIL is not recommended. Chloride [Moles/Vol] 103 mmol/L 98-107 [facility] Eosinophils/100 WBC (Bld) 5.2 % 0-5 [facility] Glucose [Mass/Vol] 93 mg/dL 74-106 [facility] Neutrophils (Bld) [#/Vol] 4.9 10*3/uL 2.0-7.7 [facility] Neutrophils/100 WBC (Bld) 58.1 % 47-70 [facility] Potassium [Moles/Vol] 3.9 mmol/L 3.5-5.1 [facility] Protein [Mass/Vol] 8.0 g/dL 6.4-8.2 [facility] Sodium [Moles/Vol] 140 mmol/L 136-145 [facility] WBC (Bld) [#/Vol] 8.4 10*3/uL 4.4-11.0 [facility] Blood erythrocytes count (nu mber/volume)Ordered By: Dr. Church on 03-30-2023 RBC (Bld) [#/Vol] 4.60 10*6/uL 4.2-5.4 [facility] Blood hemoglobin measurement (mass/volume)Ordered By: Dr. Church on 03-30-2023 Hemoglobin (Bld) [Mass/Vol] 15.1 g/dL 12.0-15.0 [facility] Blood lymphocytes/100 leukoc ytesOrdered By: Dr. Church on 03-30-2023 Lymphocytes/100 WBC (Bld) 28.5 % 19-41 [facility] Blood monocytes/100 leukocyt esOrdered By: Dr. Church on 03-30-2023 Monocytes/100 WBC (Bld) 5.7 % 0-10 [facility] Blood platelet mean volumeOr dered By: Dr. Church on 03-30-2023 Platelet mean volume (Bld) [Entitic vol] 9.2 fL 6.2-12.0 [facility] Determination of erythrocyte mean corpuscular volume (MCV)Ordered By: Dr. Church on 03-30-2023 MCV (RBC) [Entitic vol] 102.2 fL 81-99 [facility] Hematocrit Auto (Bld) [Volum e fraction]Ordered By: Dr. Church on 03-30-2023 Hematocrit (Bld) [Volume fraction] 47.0 % 37-47 [facility] Laboratory - Chemistry and C hemistry - challengeOrdered By: Dr. Church on 03-30-2023 ALP [Catalytic activity/Vol] 121 U/L 45-117 [facility] ALT [Catalytic activity/Vol] 21 U/L 13-56 [facility] CO2 [Moles/Vol] 26.0 mmol/L 21.0-32.0 [facility] Globulin (S) [Mass/Vol] 4.4 g/dL 2.2-4.2 [facility] Urea nitrogen/Creatinine [Mass ratio] 11.5 mg/mg 10-20 [facility] Laboratory - Drug toxicology Ordered By: Dr. Church on 03-30-2023 Amphetamines Ql (U) Negative <1000 ng/mL [facility] Benzodiazepines Ql (U) Negative < 200 ng/mL [facility] Cannabinoids Screen Ql (U) Negative < 50 ng/mL [facility] Cocaine Ql (U) Negative < 300 ng/mL [facility] Opiates Ql (U) Negative < 300 ng/mL [facility] Laboratory - Hematology and Cell countsOrdered By: Dr. Church on 03-30-2023 Erythrocyte distribution width (RBC) [Entitic vol] 52.1 fL 35.1-43.9 [facility] Erythrocyte distribution width (RBC) [Ratio] 13.8 % 11.6-14.6 [facility] Immature granulocytes/100 WBC (Bld) 0.800 % 0.0-0.9 [facility] Comment on above: IG% - Immature Granu locytes (promyelocytes, myelocytes and metamyelocytes) > 1% indicates that a LEFT SHIFT is Present. MCH (RBC) [Entitic mass] 32.8 pg 27.0-32.0 [facility] Nucleated RBC/100 WBC (Bld) [Ratio] 0 % 0-5 [facility] MCHC Auto (RBC) [Mass/Vol]Or dered By: Dr. Church on 03-30-2023 MCHC (RBC) [Mass/Vol] 32.1 g/dL 32-36 [facility] No Panel InformationOrdered By: Dr. Church on 03-30-2023 Estimated Creatinine Clearance Calc 59.20 ml/min [facility] Estimated GFR (MDRD) Amer 78 mL/min >60 [facility] Comment on above: GFR Calc Estimated GFR (MDRD) Non-Af Amer 65 mL/min >60 [facility] Comment on above: Non- GFR Calc Ethyl Alcohol Level 320.0 mg/dL [facility] Comment on above: Critical Result(s) C alled at: 23:17:57 03/30/2023 by: NEERU ALONSO. TO FUENTES POLLARD RN ED Results read back by same.The serum:whole blood ethanol ratio is approximately 1.14and varies slightly with hematocrit. Medical Alcohol reference interval and critical value innon-tolerant individuals; 50 - 100 Impairment 100 Intoxication 100 - 250 Severe Poisoning 250 - 400 Deep/possible fatal coma MDMA (Ecstasy) Screen Negative < 500 ng/mL [facility] [facility] Urine Barbiturates Screen Negative < 200 ng/mL [facility] Urine Drug Screen Comment [facility] Comment on above: CONFIRMATORY TESTING FOR ALL POSITIVE URINE DRUG SCREENRESULTS WILL ONLY BE SENT OUT UPON PHYSICIAN ORDER. VISTA Urine Drug Screen methods provide only preliminaryanalytical test results. A more specific alternate chemicalmethod must be used in order to obtain a confirmedanalytical result. Gas chromatography/mass spectrometery(GC/MS) is the preferred confirmatory method. Clinicalconsideration and professional judgement should be appliedto any drug of abuse test result, particularly whenpreliminary positive results are used. URINE TCA TESTING MUST BE ORDERED SEPARATELY. USE TESTMNEMONIC: [facility] Urine Methadone Screen Negative < 300 ng/mL [facility] Platelets bldOrdered By: Dr. Church on 03-30-2023 Platelets (Bld) [#/Vol] 296 10*3/uL 150-450 [facility] Serum or plasma albumin alessandro urement (mass/volume)Ordered By: Dr. Church on 03-30-2023 Albumin [Mass/Vol] 3.6 g/dL 3.2-5.0 [facility] Serum or plasma albumin/glob ulin mass ratioOrdered By: Dr. Church on 03-30-2023 Albumin/Globulin [Mass ratio] 0.8 {ratio} 0.9-2.4 [facility] Serum or plasma calcium alessandro urement (mass/volume)Ordered By: Dr. Church on 03-30-2023 Calcium [Mass/Vol] 8.8 mg/dL 8.5-10.1 [facility] Serum or plasma creatinine m easurement (mass/volume)Ordered By: Dr. Church on 03-30-2023 Creatinine [Mass/Vol] 0.96 mg/dL 0.55-1.02 [facility] Comment on above: The validity of the calculated GFR & GFRAA in patients over 70 years has not been determined. Clinical correlation is essential. Serum or plasma urea nitroge n measurement (mass/volume)Ordered By: Dr. Church on 03-30-2023 Urea nitrogen [Mass/Vol] 11 mg/dL 7-18 [facility] Stool lactoferrin detection by immunoassayOrdered By: Dr. Church on 03-30-2023 Lactoferrin IA Ql (Stl) [facility] Thin prep Papanicolaou smear with manual screeningOrdered By: Dr. Church on 03-30-2023 Thin prep Papanicolaou smear with manual screening 62 U/L 15- [facility] Thin prep Papanicolaou smear with manual screening 11 5-15 [facility] Urine phencyclidine (PCP) de tectionOrdered By: Dr. Church on 03-30-2023 Phencyclidine Ql (U) Negative < 25 ng/mL [facility] CMP with eGFRon 03-21-2023 AGE 52 years Normal [facility] Comment on above: Performed By: #### 2 [id number] #### [facility],[address] [place] [address] 30393 Albumin [Mass/Vol] 3.8 g/dL Normal 3.4 - 5.0 [facility] Comment on above: Performed By: #### 2 69437 #### [facility],[address] [place] [address] 48364 Albumin/Globulin [Mass ratio] 1.3 {ratio} Normal 0.9 - 1.6 [facility] Comment on above: Performed By: #### 2 21441 #### [facility],[address] [place] [address] 91554 ALK PHOS 126 U/L High 46 - 116 [facility] Comment on above: Performed By: #### 2 11060 #### [facility],[address] [place] [address] 79620 ALT [Catalytic activity/Vol] 16 U/L Normal 14 - 59 [facility] Comment on above: Performed By: #### 2 32738 #### [facility],[address] [place] [address] 85022 Anion gap [Moles/Vol] 15 mmol/L Normal 10 - 20 [facility] Comment on above: Performed By: #### 2 29088 #### [facility],[address] [place] [address] AST [Catalytic activity/Vol] 34 U/L Normal 13 - 39 [facility] Comment on above: Performed By: #### 2 54086 #### [facility],[address] [place], [place] [id number] B/C RATIO 15 ratio Normal 0 - 30 [facility] Comment on above: Performed By: #### 2 11158 #### [facility],[address] [place] [address] 24068 Bilirubin [Mass/Vol] 1.0 mg/dL Normal 0.2 - 1.0 [facility] Comment on above: Performed By: #### 2 67881 #### [facility],[address] [place] [address] 81498 Calcium [Mass/Vol] 9.2 mg/dL Normal 8.5 - 10.1 [facility] Comment on above: Performed By: #### 2 44849 #### [facility],[address] [place] [address] 08491 Chloride [Moles/Vol] 103 mmol/L Normal 98 - 107 [facility] Comment on above: Performed By: #### 2 98167 #### [facility],[address] [place] [address] 92745 CMP with eGFR Normal [facility] Comment on above: Result Comment: COMP REHENSIVE METABOLIC PANEL Performed By: #### 2 [id number] #### [facility],[address] [place] [address] 93673 CO2 [Moles/Vol] 30.1 mmol/L Normal 21.0 - 32.0 [facility] Comment on above: Performed By: #### 2 78725 #### [facility],[address] [place] [address] 67542 Creatinine [Mass/Vol] 1.22 mg/dL High 0.55 - 1.02 [facility] Comment on above: Performed By: #### 2 53550 #### [facility],[address] [place] [address] 24943 eGFR 46 ML/MINUTE Low 60 - 999 [facility] Comment on above: Performed By: #### 2 88690 #### [facility],[address] [place] [address] 85790 eGFR(AA) 56 ML/MINUTE Low 60 - 999 [facility] Comment on above: Result Comment: ACCO RDING TO THE NATIONAL KIDNEY DISEASE EDUCATION PROGRAM(NKDE), A NORMAL eGFR IS A VALUE GREATER THAN OR EQUAL TO 60 ML/MIN/1.73 SQ METERS. CHRONIC KIDNEY DISEASE: <60mL/MIN/1.73 SQ METERS KIDNEY FAILURE: <15mL/MIN/1.73 SQ METERS THIS TEST SHOULD ONLY BE USED FOR PATIENTS 18 YEARS OF AGE AND OLDER. Performed By: #### 2 17912 #### [facility],[address] [place] [address] 99151 Globulin (S) [Mass/Vol] 3.0 g/dL Normal 1.5 - 3.8 [facility] Comment on above: Performed By: #### 2 86961 #### [facility],[address] [place] [address] 52523 Glucose [Mass/Vol] 97 mg/dL Normal 74 - 106 [facility] Comment on above: Performed By: #### 2 45663 #### [facility],[address] [place] [address] 24500 Potassium [Moles/Vol] 4.9 mmol/L Normal 3.5 - 5.1 [facility] Comment on above: Performed By: #### 2 82853 #### [facility],[address] [place] [address] 27543 Protein [Mass/Vol] 6.8 g/dL Normal 6.4 - 8.2 [facility] Comment on above: Performed By: #### 2 09124 #### [facility],[address] [place] [address] 10576 Sodium [Moles/Vol] 143 mmol/L Normal 136 - 145 [facility] Comment on above: Performed By: #### 2 17041 #### [facility],[address] [place] [address] 68350 Urea nitrogen [Mass/Vol] 18 mg/dL Normal 7 - 18 [facility] Comment on above: Performed By: #### 2 71189 #### [facility],[address] [place] [address] 43486 T4-FREE (FREE THYROXINE)on 0 03-21-2023 Free T4 [Mass/Vol] 1.28 ng/dL Normal 0.76 - 1.46 [facility] Comment on above: Result Comment: P otential of falsely elevated results when biotin concentrations are > 10 ng/mL. Performed By: #### 2 63972 #### [facility],[address] [place] [address] 14933 TSHon 03-21-2023 TSH Qn 1.31 m[IU]/L Normal 0.35 - 3.74 [facility] Comment on above: Performed By: #### 2 84297 #### [facility],[address] [place] [address] 61939 VITAMIN D, 25 HYDROXYon 05- VitD 38.90 ng/mL Normal 30.00 - 100 [facility] Comment on above: Result Comment: 25-O HD3 indicates both endogenous production and supplementation. 25-OHD2 is an indicator of exogenous sources, such as diet or supplementation. Therapy is based on measurement of Total 25-OHD, with levels <20 ng/mL indicative of Vitamin D deficiency, while levels between 20 ng/mL and 30 ng/mL suggest insufficiency. Optimal levels are >=30ng/mL. Vitamin D, 25-OH D3 Not Established Vitamin D, 25-OH D2 Not Established Performed By: #### 2 28485 #### [facility],[address] [place] [address] 19278 Established Visit (Nephrolog y)on 02-20-2023 Established Visit (Nephrology) Diagnoses/Problems CKD (chronic kidney disease) (585.9) (N18.9) GERD (gastroesophageal reflux disease) (530.81) (K21.9) Depression (311) (F32.A) Multiple sclerosis (340) (G35) Orders CKD (chronic kidney disease) Basic Metabolic Panel; Status:Active; Requested for:20Feb2023; Patient Discussion/Summary At this time clinically she seems to be doing awesome Blood pressure is good her metabolic parameters have pretty much returned to normal her kidney function looks normal Her blood pressure is much better on fludrocortisone She does feel like she has swelling at times At this time we will not make any changes We will reevaluate in 6 months unless she has issues before that If blood pressure is still doing well we may consider dropping the fludrocortisone I have encouraged her to continue to try to abstain from alcohol use Provider Impressions CKD that appears quite stable at this time Hypotension: Currently on fludrocortisone for support Hypothyroidism Chronic pain Obesity Alcohol abuse Hypomagnesemia Vitamin D deficiency Secondary hyperparathyroidism Dizziness and lightheadedness Chief Complaint 2 M0 FUV History of Present IllnessShe is here for follow-up secondary to chronic kidney disease with in the past currently stable renal function, hypotension with dizziness and lightheadedness and also alcohol abuse. At her last visit we stopped carvedilol as her cardiac work-up was negative and her blood pressure was low. Blood work was repeated on February 07 Shows a normal sodium of 139 her kidney function has now improved to normal with a BUN of 12 and a creatinine of 0.82. Her GFR is 86 Bicarb is 34 her potassium and sodium are all within normal limits Medications are reviewed and they include citalopram, fludrocortisone, magnesium, a PPI, vitamin D She has cut back on ETOH intake She is feeling pretty well Has swelling off and on Review of Systems Constitutional: no fever, no chills, no recent weight gain and no recent weight loss. Eyes: no blurred vision and no diplopia. ENT: no hearing loss, no earache, no sore throat, no swollen glands in the neck and no nasal discharge. Cardiovascular: lower extremity edema, but no chest pain and no palpitations. Respiratory: no shortness of breath, no chronic cough and no shortness of breath during exertion. Gastrointestinal: no abdominal pain, no constipation, no heartburn, no vomiting, no bloody stools and no change in bowel movements. Genitourinary: no dysuria and no hematuria. Musculoskeletal: no arthralgias and no myalgias. Skin: no rashes and no skin lesions. Neurological: no headaches and no dizziness. Psychiatric: no confusion, no depression and no anxiety. Endocrine: no heat intolerance, no cold intolerance, appetite not increased, no thyroid disorder, no increased urinary frequency and no dry skin. Hematologic/Lymphatic: does not bleed easily and does not bruise easily. All other systems have been reviewed and are negative for complaint. Active Problems Anxiety (300.00) (F41.9) Arthropathy of left knee (716.96) (M17.12) Arthropathy of right shoulder (716.91) (M19.011) Atypical chest pain (786.59) (R07.89) Brain lesion (348.89) (G93.9) Cervical radiculitis (723.4) (M54.12) Chronic pain disorder (338.4) (G89.4) CKD (chronic kidney disease) (585.9) (N18.9) Depression (311) (F32.A) GERD (gastroesophageal reflux disease) (530.81) (K21.9) High blood pressure (401.9) (I10) History of high cholesterol (V12.29) (Z86.39) Impingement syndrome of right shoulder (726.2) (M75.41) Insomnia (780.52) (G47.00) Lumbosacral radiculopathy (724.4) (M54.17) Lumbosacral spondylosis (721.3) (M47.817) Mastoiditis of right side (383.9) (H70.91) Multiple sclerosis (340) (G35) Neurogenic claudication due to lumbar spinal stenosis (724.03) (M48.062) Pain of right upper extremity (729.5) (M79.601) Preoperative testing (V72.84) (Z01.818) Right rotator cuff tear (840.4) (M75.101) Sacroiliitis (720.2) (M46.1) Thyroid disease (246.9) (E07.9) Vitamin deficiency (269.2) (E56.9) Past Medical History History of kidney disease (V13.09) (Z87.448) stage 3 History of methicillin resistant Staphylococcus aureus infection (V12.04) (Z86.14) History of throat cancer (V10.02) (Z85.819) Surgical History History of Bladder surgery History of section x3 History of Hernia repair History of Intra-articular corticosteroid injection Managed By: Lucila Ruff (Pain Medicine) Bilat SIJ History of Throat surgery 2010 at [facility] Family History Family history of lung cancer (V16.1) (Z80.1) Family history of heart failure (V17.49) (Z82.49) Family history of malignant neoplasm of colon (V16.0) (Z80.0) Family history of diabetes mellitus (V18.0) (Z83.3) Family history of heart failure (V17.49) (Z82.49) Social History Consumes alcohol occasionally (V49.89) (Z78.9) Daily caffeine consumption Feels saf (more content not included)... [facility] 3 VIEWSon 02-07-2023 KNEE 3 VIEWS Patient Name: VJ MYERS STUDY: KNEE; 3 VIEWS; 02/07/2023 12:31 pm INDICATION: pain M17.12: Arthropathy of left knee. COMPARISON: 09/17/2016 ACCESSION NUMBER(S): [id number] ORDERING CLINICIAN: LUCILA RUFF FINDINGS: Left knee, three views There is tricompartmental osteophytosis sclerosis with joint space narrowing in the medial compartment. There is no effusion. There is no fracture IMPRESSION: Mild left knee osteoarthritis worse medially Electronically signed by: SURYA RUBIO MD [facility] - Chemistry and C hemistry - challengeon 02-07-2023 Anion gap [Moles/Vol] 10 mmol/L 10 - 20 [place] [address] DO Work Phone: Calcium [Mass/Vol] 9.0 mg/dL 8.6 - 10.3 [place] [address] DO Work Phone: Chloride [Moles/Vol] 100 mmol/L 98 - 107 -N [place]phChrist[place] [address] DO Work Phone: CO2 [Moles/Vol] 33 mmol/L above high threshold 21 - 32 [place] [address] DO Work Phone: Creatinine [Mass/Vol] 0.82 mg/dL See Below [place] [address] DO Work Phone: Comment on above: Reference Range: 0.5 0 - 1.05 Glucose [Mass/Vol] 98 mg/dL 74 - 99 [place] [address] DO Work Phone: Potassium [Moles/Vol] 3.7 mmol/L 3.5 - 5.3 [place] [address] DO Work Phone: Sodium [Moles/Vol] 139 mmol/L 136 - 145 [place] [address] DO Work Phone: Urea nitrogen [Mass/Vol] 12 mg/dL 6 - 23 [place] [address] DO Work Phone: No Panel Informationon 02-07 86 {mL/min/1.73m2} >90 [place] [address] DO Work Phone: Comment on above: CALCULATIONS OF BREE MATED GFR ARE PERFORMED USING THE 2020 CKD-EPI STUDY REFIT EQUATION WITHOUT THE RACE VARIABLE FOR THE IDMS-TRACEABLE CREATININE METHODS.https://jasn.asnjournals.org/content/early// N.6629915871 Radiologyon 02-07-2023 XR Knee 3 Views Please click on the link to view the study images Normal [facility]- [facility] Denise Aquino [place] 3 DO Work Phone: XR Knee 3 Views Normal [facility] Work Phone: Alcohol, Urineon 01-30-2023 Ethanol Unsp time (U) [Mass/Vol] <10 <20 [facility] Work Phone: Comment on above: Urines containing harry gars and contaminated with microorganisms may yield afalse positive result due to fermentation of sugar to alcohol. Established Visit (Pain Medi cine)on 01-30-2023 Established Visit (Pain Medicine) Diagnoses/Problems Arthropathy of left knee (716.96) (M17.12) Arthropathy of right shoulder (716.91) (M19.011) Orders Arthropathy of left knee Xray Knee 3 View; Status:Hold For - Scheduling; Requested for:30Jan2023; Laterality : Left Radiologist to Determine Optimal Study : Y What are the patient's signs and symptoms? : pain Chronic pain disorder Alcohol, Urine; Status:In Progress - Specimen/Data Collected; Done: 30Jan2023 OPIATE/OPIOID/BENZO [EXTENDED] PRESCRIPTION COMPLIANCE; Status:In Progress - Specimen/Data Collected; Done: 30Jan2023 Patient Discussion/Summary I discussed with the patient the likely etiology of her symptoms, as well as potential treatment options I addressed options with her. We will refer her back to see Dr. Concepcion to discuss surgery. With regard to her knee we will check an x-ray to evaluate her anatomy there. I will check a tox screen on her today and also specifically check for alcohol use. I will hold off on refilling her pain medication until we get the results of that back. I will see her for follow-up after her orthopedic consult for repeat evaluation. Chief Complaint FUV 1 month for labs Rt shoulder and and lt knee rates 7/10 describes as sharp stabbing pain. She wants to have surgery because her Rt shoulder hurts so bad. She needs a RF on [employer] send to [email or web address]. This is a 52-year-old female here for a follow-up for chief complaint of right shoulder and left knee pain. She reports that the shoulder pain has remained persistent and unchanged. She has gone back and forth but she is at the point where she would like to look into surgery again. She had seen Rabia Fink with Dr. Hutton's office and would like to follow-up there. She reports the pain is constant but worse with motion of the arm. She denies new neurologic symptoms or issues with bladder or bowel control. She also reports having pain in the left knee. It is present throughout the knee. She reports that it is worse with weightbearing. 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 She denies any right knee pain. She is following with Dr. Gonzales for her kidney function. She does have a history of alcohol use but reports that she has not had a drink in 2 weeks. She denies new neurologic symptoms or issues with bladder or bowel control. The patient's past medical, social, and family history along with medications and allergies are available and were reviewed. Adult Risk Screening Living Will. Living Will: Living will on file. Healthcare POA: Health care proxy on file. Domestic Violence Screen: Does not feel threatened or abused physically, emotionally or sexually. Do you feel UNSAFE? The patient feels safe in the home. Depression/Suicide Screening: She does not have a risk of suicide. She has not had thoughts of harming others. Reference Documentation See scanned note Oswestry Disability Index evaluation tool completed by patient . History of Present Illness On a scale of 0 to 10, the patient rates the pain at 7. Pain Location: rt shoulder and lt knee. Pain Quality: Sharp. Sensory/ Motor: Numbness, Pins and Round O and 2-5th fingers. Timing/Duration: Constant and > 12 weeks duration. Controlled Substance: I have personally reviewed the [place]ARRS report for VJ MYERS. I have considered the risks of abuse, dependence, addiction and diversion.Narcan offered and declined. Goals for Pain Management: Oswestry Disability Index evaluation tool completed by patient score 24. Review of Systems 13 systems all normal except noted in HP. 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) Atypical chest pain (786.59) (R07.89) Brain lesion (348.89) (G93.9) Cervical radiculitis (723.4) (M54.12) Chronic pain disorder (338.4) (G89.4) CKD (chronic kidney disease) (585.9) (N18.9) Depression (311) (F32.A) GERD (gastroesophageal reflux disease) (530.81) (K21.9) High blood pressure (401.9) (I10) History of high cholesterol (V12.29) (Z86.39) Impingement syndrome of right shoulder (726.2) (M75.41) Insomnia (780.52) (G47.00) Lumbosacral radiculopathy (724.4) (M54.17) Lumbosacral spondylosis (721.3) (M47.817) Mastoiditis of right side (383.9) (H70.91) Multiple sclerosis (340) (G35) Neurogenic claudication due to lumbar spinal stenosis (724.03) (M48.062) Pain of right upper extremity (729.5) (M79.601) Preoperative testing (V72.84) (Z01.818) Right rotator cuff tear (840.4) (M75.101) Sacroiliitis (720.2) (M46.1) Thyroid disease (246.9) (E07.9) Vitamin deficiency (269.2) (E56.9) Past Medical History History of kidney disease (V13.09) (Z87.448) stage 3 History of methicillin resistant Staphylococcus aureus infection (V12.04) (Z86.14) History of throat cancer (V10.02) (Z85.819) Surgical History History of Bladder surgery History of section x3 History of Hernia repair History of Intra-articular corticosteroid injection (more content not included)... Normal [facility] - Chemistry and C hemistry - challengeon 01-30-2023 Creatinine (Body fld) [Mass/Vol] 139.3 mg/dL -Nephrology- [facility] [place] 3 DO Work Phone: Comment on above: A urine creatinine r esult >= 20 mg/dL is considered valid without suspicion of dilution. Samples with results below this range will automatically reflex to specific gravity testing to verify specimen integrity. Laboratory - Drug toxicology on 01-30-2023 1-Hydroxymidazolam Confirm (U) [Mass/Vol] <25 Cutoff <25 [facility] Work Phone: 6-Huuygxscsq-9,5-Dime thyl-3,3-Diphenylpyrr olidine (EDDP) Confirm (U) [Mass/Vol] <25 Cutoff <25 [facility] Work Phone: Comment on above: The performance sheela acteristics of the Methadone Confirmation, Urine has been validated by the individual laboratory site where testing is performed. It has not been cleared or approved by the FDA. However the FDA has determined that such clearance or approval is not necessary. Our Laboratory is certified under the Clinical Laboratory Improvement Amendments of 1988 (CLIA) as qualified to perform high complexity clinical laboratory testing. 6-Monoacetylmorphine (6-DANIEL) Confirm (U) [Mass/Vol] <25 Cutoff <25 [facility] Work Phone: 7-Aminoclonazepam Confirm (U) [Mass/Vol] <25 Cutoff <25 [facility] Work Phone: Alpha hydroxyalprazolam Confirm (U) [Mass/Vol] <25 Cutoff <25 [facility] Work Phone: ALPRAZolam Confirm (U) [Mass/Vol] <25 Cutoff <25 [facility] Work Phone: Amphetamines Screen Ql (U) Negative NEGATIVE [facility]- [facility] [place] 3 DO Work Phone: Comment on above: CUTOFF LEVEL: 500 NG /ML Cross-reactivity has been reported with high concentrations of the following drugs: buproprion, chloroquine, chlorpromazine, ephedrine, mephentermine, fenfluramine, phentermine, phenylpropanolamine, pseudoephedrine, and propranolol. Barbiturates Screen Ql (U) Negative NEGATIVE [facility]- [facility] [place] 3 DO Work Phone: Comment on above: CUTOFF LEVEL: 200 NG /ML Benzoylecgonine Screen Ql (U) Negative NEGATIVE [facility]- [place] [address] DO Work Phone: Comment on above: CUTOFF LEVEL: 150 NG /ML Cannabinoids Screen Ql (U) Negative NEGATIVE [facility]- [place] [address] DO Work Phone: Comment on above: CUTOFF LEVEL: 50 NG/ ML chlordiazePOXIDE Confirm (U) [Mass/Vol] <25 Cutoff <25 [facility] Work Phone: clonazePAM Confirm (U) [Mass/Vol] <25 Cutoff <25 [facility] Work Phone: Codeine Confirm (U) [Mass/Vol] <50 Cutoff <50 [facility] Work Phone: diazePAM Confirm (U) [Mass/Vol] <25 Cutoff <25 [facility] Work Phone: fentaNYL Confirm (U) [Mass/Vol] <2.5 Cutoff<2.5 [facility] [facility] Work Phone: HYDROcodone Confirm (U) [Mass/Vol] <25 Cutoff <25 MP-Pain [facility] Work Phone: HYDROmorphone Confirm (U) [Mass/Vol] <25 Cutoff <25 [facility] Work Phone: LORazepam Confirm (U) [Mass/Vol] <25 Cutoff <25 [facility] Work Phone: Methadone Confirm (U) [Mass/Vol] <25 Cutoff <25 [facility] Work Phone: Midazolam Confirm (U) [Mass/Vol] <25 Cutoff <25 [facility] Work Phone: Morphine Confirm (U) [Mass/Vol] <50 Cutoff <50 [facility] Work Phone: Nordiazepam Confirm (U) [Mass/Vol] <25 Cutoff <25 [facility] Work Phone: Norfentanyl Confirm (U) [Mass/Vol] <2.5 Cutoff<2.5 [facility] Work Phone: Comment on above: The performance sheela acteristics of the Fentanyl Confirmation, Urine has been validated by the individual laboratory site where testing is performed. It has not been cleared or approved by the FDA. However the FDA has determined that such clearance or approval is not necessary. Our Laboratory is certified under the Clinical Laboratory Improvement Amendments of 1988 (CLIA) as qualified to perform high complexity clinical laboratory testing. Norhydrocodone Confirm (U) [Mass/Vol] <25 Cutoff <25 [facility] Work Phone: Noroxycodone Confirm (U) [Mass/Vol] <25 Cutoff <25 [facility] Work Phone: Nortramadol (U) [Mass/Vol] <50 Cutoff <50 [facility] Work Phone: Comment on above: The performance sheela acteristics of the Tramadol Confirmation, Urine has been validated by the individual laboratory site where testing is performed. It has not been cleared or approved by the FDA. However the FDA has determined that such clearance or approval is not necessary. Our Laboratory is certified under the Clinical Laboratory Improvement Amendments of 1988 (CLIA) as qualified to perform high complexity clinical laboratory testing. Oxazepam Confirm (U) [Mass/Vol] <25 Cutoff <25 MP-Nephrology- [facility] [place] 3 DO Work Phone: oxyCODONE Confirm (U) [Mass/Vol] <25 Cutoff <25 [facility] Work Phone: oxyMORphone Confirm (U) [Mass/Vol] <25 Cutoff <25 [facility] Work Phone: Comment on above: The performance sheela acteristics of the Opiate Confirmation, Urine has been validated by the individual laboratory site where testing is performed. It has not been cleared or approved by the FDA. However the FDA has determined that such clearance or approval is not necessary. Our Laboratory is certified under the Clinical Laboratory Improvement Amendments of 1988 (CLIA) as qualified to perform high complexity clinical laboratory testing. Phencyclidine Ql (U) Negative NEGATIVE MP-N ephrology- [facility] [place] 3 DO Work Phone: Comment on above: CUTOFF LEVEL: 25 NG/ ML Cross-reactivity has been reported with dextromethorphan. Temazepam Confirm (U) [Mass/Vol] <25 Cutoff <25 [facility] Work Phone: Comment on above: The performance sheela acteristics of the Benzodiazepine Confirmation, Urine has been validated by the individual laboratory site where testing is performed. It has not been cleared or approved by the FDA. However the FDA has determined that such clearance or approval is not necessary. Our Laboratory is certified under the Clinical Laboratory Improvement Amendments of 1988 (CLIA) as qualified to perform high complexity clinical laboratory testing. traMADol Confirm (U) [Mass/Vol] <50 Cutoff <50 [facility] Work Phone: Zolpidem (U) [Mass/Vol] <25 Cutoff <25 [facility] Work Phone: No Panel Informationon 01-30 SEE BELOW MP-Nephrology- [facility] 3 DO Work Phone: Comment on above: Drug screen results are presumptive and should not be used to assess compliance with prescribed medication. Definitive confirmatory drug testing has been added to this sample for any positive screen result and will be reported separately. .Toxicology screening results are reported qualitatively. The concentration must be greater than or equal to the cutoff to be reported as positive. The concentration at which the screening test can detect an individual drug or metabolite varies. The absence of expected drug(s) and/or drug metabolite(s) may indicate non-compliance, inappropriate timing of specimen collection relative to drug administration, poor drug absorption, diluted/adulterated urine, or limitations of testing. For medical purposes only; not valid for forensic use. .Interpretive questions should be directed to the laboratory medical directors. <25 Cutoff <25 MP-Pain Management-[facility] Work Phone: Comment on above: The performance sheela acteristics of the Zolpidem Confirmation, Urine has been validated by the individual laboratory site where testing is performed. It has not been cleared or approved by the FDA. However the FDA has determined that such clearance or approval is not necessary. Our Laboratory is certified under the Clinical Laboratory Improvement Amendments of 1988 (CLIA) as qualified to perform high complexity clinical laboratory testing. Laboratory - Chemistry and C hemistry - challengeon 01-02-2023 Albumin BCP dye [Mass/Vol] 4.0 g/dL 3.4 - 5.0 [facility]Neph[facility] [address] DO Work Phone: ALP [Catalytic activity/Vol] 99 U/L 33 - 110 [place] [address] DO Work Phone: ALT With P-5'-P [Catalytic activity/Vol] 9 U/L 7 - 45 [place] [address] DO Work Phone: Comment on above: Patients treated wit h Sulfasalazine may generate falsely decreased results for ALT. Anion gap [Moles/Vol] 12 mmol/L 10 - 20 [place] [address] DO Work Phone: AST With P-5'-P [Catalytic activity/Vol] 23 U/L 9 - 39 -[place] [address] DO Work Phone: Bilirubin [Mass/Vol] 0.4 mg/dL 0.0 - 1.2 [facility] Work Phone: Calcium [Mass/Vol] 8.9 mg/dL 8.6 - 10.3 -[facility] 3 DO Work Phone: Chloride [Moles/Vol] 90 mmol/L below low threshold 98 - 107 -NephrologyDavid [place] [address] DO Work Phone: CO2 [Moles/Vol] 27 mmol/L 21 - 32 [facility]Neph[facility] logDesiree [place] [address] DO Work Phone: Creatinine [Mass/Vol] 1.22 mg/dL above high threshold See Below [place] [address] DO Work Phone: Comment on above: Reference Range: 0.5 0 - 1.05 Glucose [Mass/Vol] 105 mg/dL above high threshold 74 - 99 [place] [address] DO Work Phone: Potassium [Moles/Vol] 3.4 mmol/L below low threshold 3.5 - 5.3 [place] [address] DO Work Phone: Protein [Mass/Vol] 6.9 g/dL 6.4 - 8.2 [place] [address] DO Work Phone: Sodium [Moles/Vol] 126 mmol/L below low threshold 136 - 145 [place] [address] DO Work Phone: Comment on above: Confirmed by repeat analysis Urea nitrogen [Mass/Vol] 17 mg/dL 6 - 23 [place] [address] DO Work Phone: Magnesium, Serumon 3 Magnesium [Mass/Vol] 1.35 mg/dL below low threshold See Below [place] [address] DO Work Phone: Comment on above: Reference Range: 1.6 0 - 2.40 No Panel Informationon 01-02 53 {mL/min/1.73m2} Abnormal >90 [place] [address] DO Work Phone: Comment on above: CALCULATIONS OF BREE MATED GFR ARE PERFORMED USING THE 2020 CKD-EPI STUDY REFIT EQUATION WITHOUT THE RACE VARIABLE FOR THE IDMS-TRACEABLE CREATININE METHODS.https://jasn.asnjournals.org/content/early/ N.5575028228 Phosphorus, Serumon 01-02-20 23 Phosphate [Mass/Vol] 3.3 mg/dL 2.5 - 4.9 [facility] 3 DO Work Phone: Comment on above: The performance sheela acteristics of phosphorus testing in heparinized plasma have been validated by the individual laboratory site where testing is performed. Testing on heparinized plasma is not approved by the FDA; however, such approval is not necessary. Established Visit (Nephrolog y)on 11-29-2022 Established Visit (Nephrology) Diagnoses/Problems CKD (chronic kidney disease) (585.9) (N18.9) GERD (gastroesophageal reflux disease) (530.81) (K21.9) Vitamin deficiency (269.2) (E56.9) Orders CKD (chronic kidney disease) Start: Fludrocortisone Acetate 0.1 MG Oral Tablet; TAKE 1 TABLET BY MOUTH EVERY DAY Comprehensive Metabolic Panel; Status:Active; Requested for:[id number]; Magnesium, Serum; Status:Active; Requested for:[id number]; Phosphorus, Serum; Status:Active; Requested for:29Nov2022; Vitamin deficiency Renew: Vitamin D (Ergocalciferol) 1.25 MG (37330 UT) Oral Capsule; take 1 capsule by mouth every week Unlinked Stop: Carvedilol 6.25 MG Oral Tablet Patient Discussion/Summary Issues: 1.: Chronic kidney disease and currently her renal function is fairly stable 2. Hypotension with dizziness and lightheadedness 3. Alcohol abuse At this time we are going to stop her carvedilol she has had a cardiac work-up and was given a pretty clean bill of health from the cardiac standpoint She is also hypotension with dizziness and so we will start her on fludrocortisone she is going to follow her blood pressure closely at home and record it and let us know how it is doing I am hopeful that this will help her hypotension dizziness and lightheadedness We will recheck labs in a month and see her again then If she has issues or needs before then she will call Provider Impressions Chronic kidney disease with evolving baseline normal creatinine in April 2020 with history of renal dysfunction secondary to chemotherapy and radiation Hypertension with blood pressure now on the low side Hypothyroidism Chronic pain Obesity Alcohol abuse Hypomagnesemia Vitamin D deficiency Secondary hyperparathyroidism Dizziness and lightheadedness Chief Complaint 1 MO FUV- CKD AND VIT D DEF History of Present IllnessShnabil is here for follow-up secondary to acute renal failure with underlying chronic kidney disease hypertension nausea vomiting severe alcohol abuse with hypomagnesemia and hypocalcemia She was to take her blood pressure daily and record it. We discussed with her about trying to abstain from alcohol although this is not something that she is willing to do She had blood work completed on November 03 Her blood work shows a BUN of 33 and a creatinine of 1.28 this is much improved from her creatinine of 2 back in April. Her electrolytes look pretty stable at this time her calcium is 9.1 Her urine protein creatinine ratio is negligible medications are reviewed and include carvedilol, Synthroid magnesium a PPI and vitamin D She is still abusing alcohol and abusing alcohol pretty heavily She is also feeling dizzy and lightheaded Her blood pressure is low at home running around 90/50 She does not have any more N/V/Diarrhea Not eating well. Lost weight Fpoor appetite Review of Systems Constitutional: feeling poorly and feeling tired, but no fever, no chills, no recent weight gain and no recent weight loss. Eyes: no blurred vision and no diplopia. ENT: no hearing loss, no earache, no sore throat, no swollen glands in the neck and no nasal discharge. Cardiovascular: no chest pain, no palpitations and no lower extremity edema. Respiratory: no shortness of breath, no chronic cough and no shortness of breath during exertion. Gastrointestinal: no abdominal pain, no constipation, no heartburn, no vomiting, no bloody stools and no change in bowel movements. Genitourinary: no dysuria and no hematuria. Musculoskeletal: no arthralgias and no myalgias. Skin: no rashes and no skin lesions. Neurological: dizziness, but no headaches. Psychiatric: no confusion, no depression and no anxiety. Endocrine: no heat intolerance, no cold intolerance, appetite not increased, no thyroid disorder, no increased urinary frequency and no dry skin. Poor appetite Hematologic/Lymphatic: does not bleed easily and does not bruise easily. All other systems have been reviewed and are negative for complaint. 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) Atypical chest pain (786.59) (R07.89) Brain lesion (348.89) (G93.9) Cervical radiculitis (723.4) (M54.12) Chronic pain disorder (338.4) (G89.4) CKD (chronic kidney disease) (585.9) (N18.9) Depression (311) (F32.A) GERD (gastroesophageal reflux disease) (530.81) (K21.9) High blood pressure (401.9) (I10) History of high cholesterol (V12.29) (Z86.39) Impingement syndrome of right shoulder (726.2) (M75.41) Insomnia (780.52) (G47.00) Lumbosacral radiculopathy (724.4) (M54.17) Lumbosacral spondylosis (721.3) (M47.817) Mastoiditis of right side (383.9) (H70.91) Multiple sclerosis (340) (G35) Neurogenic claudication due to lumbar spinal stenosis (724.03) (M48.062) Pain of right upper extremity (729.5) (M79.601) Preoperative testing (V72.84) (Z01.818) Right rotator cuff tear (840.4) (M75.101) Sacroiliitis (720.2) (M46.1) Thyroid disease (246.9) (E07 (more content not included)... [facility] Established Visit (Pain Medi [facility])on 11-03-2022 Established Visit (Pain Medicine) Diagnoses/Problems Pain of right upper extremity (729.5) (M79.601) Orders Pain of right upper extremity Start: Pentazocine-Naloxone HCl - 50-0.5 MG Oral Tablet; TAKE 1 TABLET Twice daily PRN pain Ultrasound Venous Duplex Upper Extremity Veins Bilateral; Status:Hold For - Scheduling; Requested for:[id number]; Radiologist to Determine Optimal Study : Y What are the patient's signs and symptoms? : rifght upper arm pain Xray Humerus Bilateral, Min 2 Views; Status:Hold For - Scheduling; Requested for:[id number]; Radiologist to Determine Optimal Study : Y What are the patient's signs and symptoms? : flaco upper arm pain Provider Impressions Patient is a 52 year-old female with a past medical history significant for right shoulder arthropathy, right shoulder rotator cuff tear, and chronic pain. She has chronic right arm pain. This is very bothersome. She states that the [place] is not helping. Previous Lyrica she tried it did not help. She states that nothing has helped. She is here today for 1 month follow-up and to discuss this. She feels like somebody beat her up or did something to her arm. She is not sure if maybe something happened. Based on her complaints we will obtain a right humeral x-ray as well as a bilateral upper extremity ultrasound to rule out any DVTs. We will discontinue the [place] and trial Talwin. Alcohol cessation was strongly encouraged. Patient states that she does not drink with use of her medications. I told her that she should not be drinking with any of these medications. She voiced understanding. OARRS reviewed. Follow-up in a few weeks for reevaluation. Chief Complaint Pain FUV PATIENT IS HERE TODAY FOR PAIN IN HER RIGHT UPPER ARM THAT HAS BEEN PRESENT FOR ONE WEEK. SHE STATES THAT IT IS TENDER AND SORE LIKE SHE GOT HIT. SHE STATES IT FEELS LIKE SHE HAS A KNOT IN HER ARM. SHE WONDERS IF HER GRANDSON KICKED HER IN HER SLEEP OR IF THE WEATHER IS TRIGGERING HER PAIN. HER PAIN HAS BEEN CONSTANT. SHE STATES THAT SHE HAS JUST TRIED TAKING HER MEDICATION TO HELP WITH THE PAIN. SHE STATES THAT IT IS NOT HELPFUL. PATIENT STATES THAT SHE HAS TRIED TAKING PREGABALIN THAT SHE GOT FROM DR. RUFF AND SHE STATES IT IS WORTHLESS. PATIENT STATES THAT LIFTING HER ARM AND DOING ADL'S MAKES HER PAIN WORSE. ETOH POSITIVE. Education provided. 1 PAIN SCORE 7/10 TODAY. 1 Amended By: Karin Mathis; Nov 03 2022 2:35 PM ESTAdult Risk Screening Living Will. Living Will: Living will on file. Healthcare POA: Health care proxy on file. Depression/Suicide Screening: During the past 2 weeks, the patient has not felt down, depressed or hopeless. During the past 2 weeks, the patient has not felt little interest or pleasure in doing things. She does not have a risk of suicide. She has not had thoughts of harming others. Single alcohol screening question: In the past year the patient has had 5 or more drinks (men) or 4 or more drinks (women)? ONCE A WEEK time(s). Review of Systems 13 systems all normal except noted in HP. 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) Atypical chest pain (786.59) (R07.89) Brain lesion (348.89) (G93.9) Cervical radiculitis (723.4) (M54.12) Chronic pain disorder (338.4) (G89.4) CKD (chronic kidney disease) (585.9) (N18.9) Depression (311) (F32.A) GERD (gastroesophageal reflux disease) (530.81) (K21.9) High blood pressure (401.9) (I10) History of high cholesterol (V12.29) (Z86.39) Impingement syndrome of right shoulder (726.2) (M75.41) Insomnia (780.52) (G47.00) Lumbosacral radiculopathy (724.4) (M54.17) Lumbosacral spondylosis (721.3) (M47.817) Mastoiditis of right side (383.9) (H70.91) Multiple sclerosis (340) (G35) Neurogenic claudication due to lumbar spinal stenosis (724.03) (M48.062) Preoperative testing (V72.84) (Z01.818) Right rotator cuff tear (840.4) (M75.101) Sacroiliitis (720.2) (M46.1) Thyroid disease (246.9) (E07.9) Vitamin deficiency (269.2) (E56.9) Past Medical History History of kidney disease (V13.09) (Z87.448) stage 3 History of methicillin resistant Staphylococcus aureus infection (V12.04) (Z86.14) History of throat cancer (V10.02) (Z85.819) Surgical History History of Bladder surgery History of section x3 History of Hernia repair History of Intra-articular corticosteroid injection Managed By: Lucila Ruff (Pain Medicine) Tiburcio AMBROSIO History of Throat surgery 2011 at [facility] Family History Family history of lung cancer (V16.1) (Z80.1) Family history of heart failure (V17.49) (Z82.49) Family history of malignant neoplasm of colon (V16.0) (Z80.0) Family history of diabetes mellitus (V18.0) (Z83.3) Family history of heart failure (V17.49) (Z82.49) Social History Consumes alcohol occasionally (V49.89) (Z78.9) Daily caffeine consumption Feels safe at home Former smoker (V15.82) (Z87.891) No illicit drug use Patient has living will (V49.89) ( (more content not included)... Normal e-[facility] Laboratory - Chemistry and C hemistry - challengeon 11-03-2022 Albumin Ql (U) <7.0 See Below -[facility] 3 [facility] Work Phone: Comment on above: Reference Range: Not Established Albumin/Creatinine DL <= 20 mg/L (U) [Mass ratio] SEE COMMENT 0.0 - 30.0 [facility] 3 DO Work Phone: Comment on above: One or more analytes used in this calculation is outside of the analytical measurement range.Calculation cannot be performed. Anion gap [Moles/Vol] 11 mmol/L 10 - 20 [facility] NephFormerly [facility] 3 DO Work Phone: Calcium [Mass/Vol] 9.1 mg/dL 8.6 - 10.3 -Nep hrology- [facility] [place] 3 DO Work Phone: Chloride [Moles/Vol] 101 mmol/L 98 - 107 -[facility] 3 DO Work Phone: CO2 [Moles/Vol] 30 mmol/L 21 - 32 -[facility] [place] 3 DO Work Phone: Creatinine [Mass/Vol] 1.28 mg/dL above high threshold See Below MP-NephrologyDavid [place] [address] DO Work Phone: Comment on above: Reference Range: 0.5 0 - 1.05 Glucose [Mass/Vol] 110 mg/dL above high threshold 74 - 99 [facility]ITALNephChristopher [facility] [address] DO Work Phone: Potassium [Moles/Vol] 4.4 mmol/L 3.5 - 5.3 [place] [address] DO Work Phone: Sodium [Moles/Vol] 138 mmol/L 136 - 145 -[place] [address] DO Work Phone: Urea nitrogen [Mass/Vol] 33 mg/dL above high threshold 6 - 23 [place] [address] DO Work Phone: No Panel Informationon 11-03 50 {mL/min/1.73m2} Abnormal >90 [place] [address] DO Work Phone: Comment on above: CALCULATIONS OF BREE MATED GFR ARE PERFORMED USING THE 2020 CKD-EPI STUDY REFIT EQUATION WITHOUT THE RACE VARIABLE FOR THE IDMS-TRACEABLE CREATININE METHODS.https://jasn.asnjournals.org/content// N.7526475040 Total Protein, Urine Spoton 11-03-2022 Creatinine (U) [Mass/Vol] 58.0 mg/dL See Below [facility]ITALPain ManagementUniversity [facility] Work Phone: Comment on above: Reference Range: 20. 0 - 320.0 Protein (U) [Mass/Vol] 9 mg/dL 5 - 24 [place] [address] DO Work Phone: Protein/Creatinine (U) [Ratio] 0.16 {mg/mg_Creat} See Below [place] [address] DO Work Phone: Comment on above: Reference Range: 0.0 0 - 0.17 Urinalysison 11-03-2022 Color (U) YELLOW See Below [facility]OS[facility]ITALNephrologyDavid [facility] [address] DO Work Phone: Comment on above: Reference Range: STR AW,YELLOW Glucose Ql (U) Negative NEGATIVE MP-Nephrol y- [place] [address] DO Work Phone: Ketones Ql (U) Negative NEGATIVE MP-Nephrol ogy- [place] [address] DO Work Phone: Leukocyte esterase Test strip Ql (U) TRACE Abnormal NEGATIVE -NephrologyDavid [place] [address] DO Work Phone: pH (U) 5.5 [pH] 5.0 - 8.0 [facility]OSPITALNephrologyDavid [place] [address] DO Work Phone: Protein (U) [Mass/Vol] Negative NEGATIVE -NephrologyDavid [place] [address] DO Work Phone: RBC (U) [#/Vol] Negative NEGATIVE -Nephro logDesiree [place] [address] DO Work Phone: Specific gravity (U) [Rel density] >1.035 Abnormal See Below [facility]ITALNephChristopher [facility] [address] DO Work Phone: Comment on above: Reference Range: 1.0 05 - 1.035 Urinalysis Negative NEGATIVE [facility]PITALNephrologyDavid [place] [address] DO Work Phone: Urinalysis <2.0 0.0 - 1.9 [facility]ITALNephrologyDavid [place] [address] DO Work Phone: Urinalysis CLEAR CLEAR [facility]OSPITALNephrologyDavid [place] [address] DO Work Phone: Urinalysis, Microscopicon Urinalysis, Microscopic 1+ Abnormal [facility]OSPITALNephrologyDavid [place] [address] DO Work Phone: Urinalysis, Microscopic <1 0-5 [facility] [place] 3 DO Work Phone: Urinalysis, Microscopic 2 {/HPF} -[facility] [place] 3 DO Work Phone: Urinalysis, Microscopic 1 {/HPF} 0-5 [facility] [place] 3 DO Work Phone: VAS LAB Venous Duplex Ultra sound DVTon 11-03-2022 V[facility] LAB [place] [address] [phone], Vascular Lab Report Upper Venous Duplex Ultrasound Patient Name: VJ MYERS Reading Physician: [id number] Art MD Study Date: 11/03/2022 Referring Physician: ROSEY LAN MRN/PID: [id number] PCP: Accession/Order#: [id number] CC Report to: Date of : 1970 Technologist: Terrence Velez Gender: F Technologist 2: Admission Status: Outpatient Location Performed: [facility] Diagnosis/ICD: M79.601-Pain in right arm Procedure/CPT: 08763 Peripheral venous duplex scan for DVT Limited-[id number] CONCLUSIONS: Right Upper Venous: Negative for acute thrombus in the visualized vessels. Spontaneous phasic flow is noted throughout. Cannot rule out thrombus of non-compressible internal jugular vein due to Trach and scarring. Cannot rule out thrombus of non-visualized proximal cephalic, mid cephalic and distal cephalic veins. Left Upper Venous: The subclavian demonstrates a normal spontaneous and phasic flow. Imaging AND Doppler Findings: Right Compressible Thrombus Flow Internal Jugular Spontaneous/Phasic Subclavian Yes None Spontaneous/Phasic Subclavian Proximal Yes None Spontaneous/Phasic Subclavian Mid Yes None Spontaneous/Phasic Subclavian Distal Yes None Spontaneous/Phasic Axillary Yes None Spontaneous/Phasic Brachial Yes None Basilic Yes None Left Flow Subclavian Spontaneous/Phasic [id number] Kirill Art MD Final Normal [facility] LAB Venous Duplex Ultra sound for DVTon 11-03-2022 [facility] LAB Venous Duplex Ultrasound for DVT MP-Pain Management-Abhi сергей Work Phone: Established Visit (Nephrolog y)on 10-17-2022 Established Visit (Nephrology) Diagnoses/Problems CKD (chronic kidney disease) (585.9) (N18.9) GERD (gastroesophageal reflux disease) (530.81) (K21.9) High blood pressure (401.9) (I10) Thyroid disease (246.9) (E07.9) Vitamin deficiency (269.2) (E56.9) Orders CKD (chronic kidney disease) Basic Metabolic Panel; Status:Active; Requested for:17Oct2022; High blood pressure Start: Blood Pressure Kit KIT; CHeck BP daily and record Vitamin deficiency Start: Magnesium Oxide 400 MG Oral Tablet; TAKE 1 TABLET TWICE DAILY Start: Vitamin D (Ergocalciferol) 1.25 MG ([address] UT) Oral Capsule; take 1 capsule by mouth every week Patient Discussion/Summary Issues: 1.: Acute renal failure and her renal function is much improved after stopping losartan 2. Hypertension here in the office is elevated but she is very anxious and so we are going to try to get her to take her blood pressures at home and see what she is running before we start adjusting medications further 3. Hypomagnesemia and we will start her on magnesium oxide 4. Vitamin D deficiency and we will start her on vitamin D We will recheck her labs in a month She is to take her blood pressure daily and record it She will call if she has issues before then Provider Impressions Acute renal failure Chronic kidney disease with evolving baseline normal creatinine in April 2020 with history of renal dysfunction secondary to chemotherapy and radiation Hypertension Hypothyroidism Chronic pain Obesity Nausea/vomiting/diarrhe a Alcohol abuse Hypomagnesemia Vitamin D deficiency Hypocalcemia with elevated PTH level Chief Complaint 1 week follow-up- CKD Lab and ultrasound review 10/14/2022 History of Present IllnessShnabil is here for follow-up secondary to renal dysfunction with her latest creatinines ranging around 2. In April 2020 she had normal renal function however no levels since that time and she did not have problems with renal dysfunction in the past with chemotherapy and radiation She also has a history of hypertension hypothyroidism and chronic pain and alcohol abuse Blood work was repeated on October 14 Globin is 12.1 Metabolic panel shows a BUN of 18 and a creatinine of 1.16. This is much improved from the BUN of 26 and creatinine of 2.0 her calcium is 8.4 her GFR is up to 57 her other electrolytes look good at this time Magnesium is low at 1.25 Phosphorus is 2.8 uric acid is 8.2 vitamin D is 13 hepatitis B and C are negative PTH level is 125.8 Renal ultrasound shows a 1.2 cm left upper pole simple renal cyst. Her renal ultrasound is otherwise unremarkable She has not been measuring her blood pressures at home Her blood pressure today is 170/104 we did stop her losartan last week she is currently on amlodipine 10, atorvastatin, carvedilol, citalopram, levothyroxine, and a PPI She is not feeling great. Has diarrhea now. Was exposed to She is not measuring BP at home Otherwis jennifer [place]. Review of Systems Constitutional: no fever, no chills, no recent weight gain and no recent weight loss. Eyes: no blurred vision and no diplopia. ENT: no hearing loss, no earache, no sore throat, no swollen glands in the neck and no nasal discharge. Cardiovascular: no chest pain, no palpitations and no lower extremity edema. Respiratory: no shortness of breath, no chronic cough and no shortness of breath during exertion. Gastrointestinal: no abdominal pain, no constipation, no heartburn, no vomiting, no bloody stools and no change in bowel movements. Genitourinary: no dysuria and no hematuria. Musculoskeletal: no arthralgias and no myalgias. Skin: no rashes and no skin lesions. Neurological: no headaches and no dizziness. Psychiatric: no confusion, no depression and no anxiety. Endocrine: no heat intolerance, no cold intolerance, appetite not increased, no thyroid disorder, no increased urinary frequency and no dry skin. Hematologic/Lymphatic: does not bleed easily and does not bruise easily. All other systems have been reviewed and are negative for complaint. 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) Atypical chest pain (786.59) (R07.89) Brain lesion (348.89) (G93.9) Cervical radiculitis (723.4) (M54.12) Chronic pain disorder (338.4) (G89.4) CKD (chronic kidney disease) (585.9) (N18.9) Depression (311) (F32.A) GERD (gastroesophageal reflux disease) (530.81) (K21.9) High blood pressure (401.9) (I10) History of high cholesterol (V12.29) (Z86.39) Impingement syndrome of right shoulder (726.2) (M75.41) Insomnia (780.52) (G47.00) Lumbosacral radiculopathy (724.4) (M54.17) Lumbosacral spondylosis (721.3) (M47.817) Mastoiditis of right side (383.9) (H70.91) Multiple sclerosis (340) (G35) Neurogenic claudication due to lumbar spinal stenosis (724.03) (M48.062) Preoperative testing (V72.84) (Z01.818) Right rotator cuff tear (840.4) (M75.101) Sacroiliitis (720.2) (M46.1) Thyroid disease (246.9) (E07.9 (more content not included)... Normal e-Zassi Tobacco Screening.on 022 Tobacco use status CPHS b) No -[facility] [place] 3 DO Work Phone: Hepatitis B Surface Antibody on 10-14-2022 HBV surface Ag IA Ql <3.1 <10 MP-N [facility] [place] 3 DO Work Phone: Comment on above: SOURCE: INTERPRETIVE CRITERIA:<10 mIU/mL....NONREACTIVE >=10 mIU/mL...REACTIVE . Biotin interference may cause falsely decreased results. Patients taking a Biotin dose of up to 5 mg/day should refrain from taking Biotin for 24 hours before sample collection. Providers may contact their local laboratory for further information. Hepatitis B Surface Antigeno n 10-14-2022 Hepatitis B Surface Antigen Non-Reactive See Below [facility] [place] 3 DO Work Phone: Comment on above: SOURCE: Reference Ra nge: NONREACTIVE Biotin interference may cause falsely decreased results. Patients taking a Biotin dose of up to 5 mg/day should refrain from taking Biotin for 24 hours before sample collection. Providers may contact their local laboratory for further information. SOURCE: Reference Ra mendiola: NONREACTIVE Results from patients taking biotin supplements or receiving high-dose biotin therapy should be interpreted with caution due to possible interference with this test. Providers may contact their local laboratory for further information. Laboratory - Chemistry and C hemistry - challengeon 10-14-2022 Albumin BCP dye [Mass/Vol] 4.0 g/dL 3.4 - 5.0 [place] [address] DO Work Phone: ALP [Catalytic activity/Vol] 95 U/L 33 - 110 [place] [address] DO Work Phone: ALT With P-5'-P [Catalytic activity/Vol] 9 U/L 7 - 45 [place] [address] DO Work Phone: Comment on above: Patients treated wit h Sulfasalazine may generate falsely decreased results for ALT. Anion gap [Moles/Vol] 10 mmol/L 10 - 20 [place] [address] DO Work Phone: AST With P-5'-P [Catalytic activity/Vol] 21 U/L 9 - 39 [place] [address] DO Work Phone: Bilirubin [Mass/Vol] 0.3 mg/dL 0.0 - 1.2 [place] [address] DO Work Phone: Calcium [Mass/Vol] 8.4 mg/dL below low threshold 8.6 - 10.3 [place] [address] DO Work Phone: Chloride [Moles/Vol] 104 mmol/L 98 - 107 [place] [address] DO Work Phone: CO2 [Moles/Vol] 28 mmol/L 21 - 32 [facility] 3 DO Work Phone: Creatinine [Mass/Vol] 1.16 mg/dL above high threshold See Below [place] [address] DO Work Phone: Comment on above: Reference Range: 0.5 0 - 1.05 Glucose [Mass/Vol] 92 mg/dL 74 - 99 [place] [address] DO Work Phone: Potassium [Moles/Vol] 4.4 mmol/L 3.5 - 5.3 [place] [address] DO Work Phone: Protein [Mass/Vol] 6.7 g/dL 6.4 - 8.2 [place] [address] DO Work Phone: Sodium [Moles/Vol] 138 mmol/L 136 - 145 [place] [address] DO Work Phone: Urea nitrogen [Mass/Vol] 18 mg/dL 6 - 23 [place] [address] DO Work Phone: Laboratory - Hematology and Cell countson 10-14-2022 Erythrocyte distribution width (RBC) [Ratio] 14.9 % above high threshold See Below [place] [address] DO Work Phone: Comment on above: Reference Range: 11. 5 - 14.5 Hematocrit (Bld) [Volume fraction] 37.2 % See Below [place] [address] DO Work Phone: Comment on above: Reference Range: 36. 0 - 46.0 Hemoglobin (Bld) [Mass/Vol] 12.1 g/dL See Below [place] [address] DO Work Phone: Comment on above: Reference Range: 12. 0 - 16.0 MCHC (RBC) [Mass/Vol] 32.5 g/dL See Below [place] [address] DO Work Phone: Comment on above: Reference Range: 32. 0 - 36.0 MCV (RBC) [Entitic vol] 96 fL 80 - 100 [facility]phrologyDavid [place] [address] DO Work Phone: Platelets (Bld) [#/Vol] 208 10*3/uL 150 - 450 [facility]rology[facility] [place] [address] DO Work Phone: RBC (Bld) [#/Vol] 3.86 {x10E12/L} below low threshold See Below [facility]rology[facility] [place] [address] DO Work Phone: Comment on above: Reference Range: 4.0 0 - 5.20 WBC (Bld) [#/Vol] 4.7 10*3/uL 4.4 - 11.3 -Nep hrologyDavid [place] [address] DO Work Phone: Laboratory - Serology - non- microon 10-14-2022 Centromere protein B Ab Qn (S) <0.2 [place] [address] DO Work Phone: Comment on above: REF VALUES < 1.0 = N EGATIVE >=1.0 = POSITIVE Chromatin Ab Qn <0.2 -Nephro [place] [address] DO Work Phone: Comment on above: REF VALUES < 1.0 = N EGATIVE >=1.0 = POSITIVE DNA double strand Ab Qn (S) [IU]/mL -NephrologyDavid [place] [address] DO Work Phone: Comment on above: REF VALUESNEGATIVE: <= 4 IU/MLEQUIVOCAL: 5- 9 IU/MLPOSITIVE: >=10 IU/ML Kati-1 extractable nuclear Ab IA Ql (S) <0.2 -Nephrolo - [place] [address] DO Work Phone: Comment on above: REF VALUES < 1.0 = N EGATIVE >=1.0 = POSITIVE Nuclear Ab Hep2 substrate Ql (S) Positive Abnormal NEGATIVE [place] [address] DO Work Phone: Comment on above: The Antinuclear Anti body (EVA) test was performed using indirect immunofluorescence assay with HEp-2 cells slide. Nuclear Ab IF (S) [Titer] 1:80 [place] [address] DO Work Phone: Nuclear Ab pattern (S) [Interp] SPECKLED [place] [address] DO Work Phone: Ribonucleoprotein extractable nuclear Ab IA Qn (S) <0.2 [place] [address] DO Work Phone: Comment on above: REF VALUES < 1.0 = N EGATIVE >=1.0 = POSITIVE Ribosomal P Ab Qn (S) <0.2 [place] [address] DO Work Phone: Comment on above: REF VALUES < 1.0 = N EGATIVE >=1.0 = POSITIVE SCL-70 extractable nuclear Ab IA Ql (S) <0.2 [place] [address] DO Work Phone: Comment on above: REF VALUES < 1.0 = N EGATIVE >=1.0 = POSITIVE Sjogrens syndrome-A extractable nuclear Ab IA Qn (S) <0.2 [place] [address] DO Work Phone: Comment on above: REF VALUES < 1.0 = N EGATIVE >=1.0 = POSITIVE Sjogrens syndrome-B extractable nuclear Ab IA Qn (S) <0.2 [place] [address] DO Work Phone: Comment on above: REF VALUES < 1.0 = N EGATIVE >=1.0 = POSITIVE Fox extractable nuclear Ab IA Qn (S) <0.2 [place] [address] DO Work Phone: Comment on above: REF VALUES < 1.0 = N EGATIVE >=1.0 = POSITIVE Fox extractable nuclear Ab+Ribonucleoprotein extractable nuclear Ab IA Ql (S) <0.2 [facility] 3 DO Work Phone: Comment on above: REF VALUES < 1.0 = N EGATIVE >=1.0 = POSITIVE Magnesium, Serumon 2 Magnesium [Mass/Vol] 1.25 mg/dL below low threshold See Below [facility] 3 DO Work Phone: Comment on above: Reference Range: 1.6 0 - 2.40 No Panel Informationon 10-14 57 {mL/min/1.73m2} Abnormal >90 -[facility] 3 DO Work Phone: Comment on above: CALCULATIONS OF BREE MATED GFR ARE PERFORMED USING THE 2020 CKD-EPI STUDY REFIT EQUATION WITHOUT THE RACE VARIABLE FOR THE IDMS-TRACEABLE CREATININE METHODS.https://jasn.asnjournals.org/content/early/ N.5348049785 Parathormone Intact, Serumon 10-14-2022 Parathyrin.intact [Mass/Vol] 125.8 pg/mL above high threshold See Below [facility] 3 DO Work Phone: Comment on above: Reference Range: 18. 5 - 88.0 Phosphorus, Serumon 10-14-20 Phosphate [Mass/Vol] 2.8 mg/dL 2.5 - 4.9 -[facility] 3 DO Work Phone: Comment on above: The performance sheela acteristics of phosphorus testing in heparinized plasma have been validated by the individual laboratory site where testing is performed. Testing on heparinized plasma is not approved by the FDA; however, such approval is not necessary. Radiologyon 10-14-2022 US Kidney - bilateral Normal [facility] 3 DO Work Phone: Uric Acid, Serumon Urate [Mass/Vol] 8.2 mg/dL above high threshold 2.3 - 6.7 [facility] Work Phone: Comment on above: Venipuncture immedia tely after or during the administration of Metamizole may lead to falsely low results. Testing should be performed immediately prior to Metamizole dosing. Vitamin D 25-Hydroxyon 10-14 25-hydroxyvitamin D3 [Mass/Vol] 13 ng/mL Abnormal [facility] [place] 3 DO Work Phone: Comment on above: .DEFICIENCY: < 20 NG /MLINSUFFICIENCY: 20-29 NG/MLSUFFICIENCY: 30-100 NG/MLTHIS ASSAY ACCURATELY QUANTIFIES THE SUM OFVITAMIN D3, 25-HYDROXY AND VIT D2,25-HYDROXY. Established Visit (Pain Medi cine)on 10-11-2022 Established Visit (Pain Medicine) Diagnoses/Problems Arthropathy of right shoulder (716.91) (M19.011) Impingement syndrome of right shoulder (726.2) (M75.41) Patient Discussion/Summary I discussed with the patient the likely etiology of her symptoms, as well as potential treatment options I reviewed the orthopedic note as well as the note from the ski patrol director. We can refer her for a different orthopedic opinion but I am in agreement with her that her renal issues would need to be sorted out first. With regard to her medications we will have her transition off of [place] and since she cannot use NSAIDs we will consider Talwin. I also counseled her regarding her alcohol use. I will see her for follow-up in 1 month or sooner if needed. Chief Complaint [facility] Ortho Referral reports she had a steroid injection that did not help, she did not like the person she saw at [facility]. Today she is having pain in her Rt shoulder pain rates 8/10 sharp that radiates into her rt arm down to her wrist and has tingling in her fingers. This is a 52-year-old female here for a follow-up for chief complaint of right shoulder pain. She reports that since her last visit her shoulder pain has been persistent. She had a consultation with the orthopedist at [facility]. She had an intra-articular injection done but reports no benefit. She reports they have briefly discussed surgery but she would like to go for second opinion. She has been using [place] 3 times a day and reports that it seemed to help for a couple of hours at a time. She notes that her neck seems to cause nausea and she is had some unexplained weight loss and wonders if that might be part of the cause. She is also found to have significant renal failure and is following with nephrology. She is going to undergo testing in the near future. She denies additional neurologic symptoms or issues with bladder or bowel control. The patient's past medical, social, and family history along with medications and allergies are available and were reviewed. Adult Risk Screening Living Will. Living Will: Living will on file. Healthcare POA: Health care proxy on file. Reference Documentation See scanned note Opioid Risk Tool . History of Present Illness On a scale of 0 to 10, the patient rates the pain at 8. Pain Location: rt shouder. Pain Quality: Sharp. Pain Radiation: down rt arm in to her wrist. Sensory/ Motor: Pins and Round O and fingers in rt hand. Timing/Duration: Constant and > 12 weeks duration. Controlled Substance: I have personally reviewed the OARRS report for VJ MYERS. I have considered the risks of abuse, dependence, addiction and diversion.Narcan offered and declined. Exacerbating Factors: motion, lifting and laying . Goals for Pain Management: Opioid Risk score 7. Review of Systems 13 systems all normal except noted in HP. 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) Atypical chest pain (786.59) (R07.89) Brain lesion (348.89) (G93.9) Cervical radiculitis (723.4) (M54.12) Chronic pain disorder (338.4) (G89.4) CKD (chronic kidney disease) (585.9) (N18.9) Depression (311) (F32.A) GERD (gastroesophageal reflux disease) (530.81) (K21.9) High blood pressure (401.9) (I10) History of high cholesterol (V12.29) (Z86.39) Insomnia (780.52) (G47.00) Lumbosacral radiculopathy (724.4) (M54.17) Lumbosacral spondylosis (721.3) (M47.817) Mastoiditis of right side (383.9) (H70.91) Multiple sclerosis (340) (G35) Neurogenic claudication due to lumbar spinal stenosis (724.03) (M48.062) Preoperative testing (V72.84) (Z01.818) Right rotator cuff tear (840.4) (M75.101) Sacroiliitis (720.2) (M46.1) Thyroid disease (246.9) (E07.9) Past Medical History History of kidney disease (V13.09) (Z87.448) stage 3 History of methicillin resistant Staphylococcus aureus infection (V12.04) (Z86.14) History of throat cancer (V10.02) (Z85.819) Surgical History History of Bladder surgery History of section x3 History of Hernia repair History of Intra-articular corticosteroid injection Managed By: Lucila Ruff (Pain Medicine) Tiburcio AMBROSIO History of Throat surgery 2011 at [facility] Family History Family history of lung cancer (V16.1) (Z80.1) Family history of heart failure (V17.49) (Z82.49) Family history of malignant neoplasm of colon (V16.0) (Z80.0) Family history of diabetes mellitus (V18.0) (Z83.3) Family history of heart failure (V17.49) (Z82.49) Social History Consumes alcohol occasionally (V49.89) (Z78.9) Daily caffeine consumption Feels safe at home Former smoker (V15.82) (Z87.891) No illicit drug use Patient has living will (V49.89) (Z78.9) Allergies Contrast Media Ready-Box MISC Recorded By: Jenna Del Rio; 10/26/2021 12:12:18 PM morphine Recorded By: Jenna Del Rio; 10/26/2021 12:12:18 PM nausea/vomiting Current Meds Medication NameInstruction amLODIPine Besylate 10 MG Oral Tablet (more content not included)... Normal [facility] Initial Visit (Nephrology)on 10-11-2022 Initial Visit (Nephrology) Diagnoses/Problems GERD (gastroesophageal reflux disease) (530.81) (K21.9) High blood pressure (401.9) (I10) History of high cholesterol (V12.29) (Z86.39) CKD (chronic kidney disease) (585.9) (N18.9) Orders Albumin, Urine Spot; Status:Active; Requested for:11Oct2022; EVA-WITH REFLEX TO SRAVANI; Status:Active; Requested for:11Oct2022; Complete Blood Count; Status:Active; Requested for:11Oct2022; Comprehensive Metabolic Panel; Status:Active; Requested for:11Oct2022; Hepatitis B Surface Antibody; Status:Active; Requested for:11Oct2022; Hepatitis B Surface Antigen; Status:Active; Requested for:11Oct2022; Hepatitis C Antibody Test; Status:Active; Requested for:11Oct2022; Magnesium, Serum; Status:Active; Requested for:11Oct2022; Parathormone Intact, Serum; Status:Active; Requested for:11Oct2022; Phosphorus, Serum; Status:Active; Requested for:11Oct2022; Total Protein, Urine Spot; Status:Active; Requested for:11Oct2022; Ultrasound Kidney Bilateral; Status:Hold For - Scheduling; Requested for:11Oct2022; Radiologist to Determine Optimal Study : Y What are the patient's signs and symptoms? : CKD Uric Acid, Serum; Status:Active; Requested for:11Oct2022; Urinalysis; Status:Active; Requested for:11Oct2022; Vitamin D 25-Hydroxy; Status:Active; Requested for:11Oct2022; Stop: Hyzaar 100-25 MG Oral Tablet (Losartan Potassium-HCTZ) Patient Discussion/Summary Her recent blood work does not look good. She has a stated history of renal dysfunction 10 years ago with chemotherapy and radiation She had pretty normal-looking kidney function in April 2020 She has lost quite a bit of weight lately She is having nausea vomiting diarrhea and not eating well at this time at this time we will stop her losartan/hydrochlorothi azide She is going to take her blood pressure at home and record it and watch closely We will get blood work urine work and a renal ultrasound I have encouraged her to try to lay off the alcohol and to drink as much fluids and stay well-hydrated as possible She also has not having very good oral intake so I have encouraged her to at least try to take in some nutrition even if it is protein shakes and drinks We will recheck all of these things see how things are looking and then try to come up with a plan for her going forward I am hopeful that some of this is acute injury and that it will improve Provider Impressions Renal dysfunction with latest creatinine ranging around 2 Normal renal function in April 2020 History of renal dysfunction with chemotherapy and radiation due to throat cancer approximately 10 years ago Hypertension Hypothyroidism Chronic pain Obesity Nausea/vomiting/diarrhe a Alcohol abuse Chief Complaint REFERRED BY DR. ROSE FOR CKD STAGE 4 History of Present IllnessShnabil is here for a new patient visit She was referred here secondary to chronic kidney disease My evaluation plan is communicated back via the electronic medical record Blood work was last done on September 01 Blood work shows a BUN of 21 and a creatinine of 2.34 calcium is 7.6 estimated GFR is 22 her LFTs look pretty unremarkable electrolytes also look pretty good her bicarb is slightly elevated at 30.4 In April creatinine was 2.0 previous to that back in May 2020 creatinine was 0.86 we really do not have any blood work since that time. Medications are reviewed her medications include amlodipine 10 mg, atorvastatin, carvedilol, side telemetry pram, narcotics, Hyzaar with losartan and hydrochlorothiazide, levothyroxine, omeprazole, pregabalin and sertraline She had throat cancer and wason Chemo 10 years ago. She states she does not urinate much She deos drinkalcohol She drinks w botles of Inocente Lindsay Whiskey per week. She stopped smoking 10 years ago. She does not urinate much She has diarrhea all the tiem She does not take OTC meds She eats not well She throws up a lot as well. Review of Systems Constitutional: no fever, no chills, no recent weight gain and no recent weight loss. Eyes: no blurred vision and no diplopia. ENT: no hearing loss, no earache, no sore throat, no swollen glands in the neck and no nasal discharge. Cardiovascular: no chest pain, no palpitations and no lower extremity edema. Respiratory: no shortness of breath, no chronic cough and no shortness of breath during exertion. Gastrointestinal: vomiting and diarrhea, but no abdominal pain, no constipation, no heartburn, no bloody stools and no change in bowel movements. Genitourinary: no dysuria and no hematuria. Musculoskeletal: no arthralgias and no myalgias. Skin: no rashes and no skin lesions. Neurological: no headaches and no dizziness. Psychiatric: no confusion, no depression and no anxiety. Endocrine: no heat intolerance, no cold intolerance, appetite not increased, no thyroid disorder, no increased urinary frequency and no dry skin. Hematologic/Lymphatic: does not bleed easily and does not bruise easily. All othe (more content not included)... Normal [facility] CBC (NO DIFF)on 09-01-2022 CBC panel Auto (Bld) Normal [facility] Comment on above: Result Comment: CBC( WITHOUT DIFFERENTIAL) Performed By: #### 2 [id number] #### [place] [id number] Erythrocyte distribution width (RBC) [Ratio] 16.0 % High 12.0 - 15.6 [facility] Comment on above: Performed By: #### 2 [id number] #### [facility],[address] [place] [address] Hematocrit (Bld) [Volume fraction] 40.6 % Normal 34.0 - 46.0 [facility] Comment on above: Performed By: #### 2 [id number] #### [place] [id number] Hemoglobin (Bld) [Mass/Vol] 13.3 g/dL Normal 12.0 - 16.0 [facility] Comment on above: Performed By: #### 2 [id number] #### [facility],[address] [place] [address] MCH (RBC) [Entitic mass] 30 pg Normal 27 - 33 [facility] Comment on above: Performed By: #### 2 [id number] #### [address] [address] MCHC 33 X10 3 Normal 32 - 36 [facility] Comment on above: Performed By: #### 2 [id number] #### [facility],[address] [place] [address] MCV (RBC) [Entitic vol] 91 fL Normal 80 - 99 [facility] Comment on above: Performed By: #### 2 [id number] #### [facility],[address] [place] [id number] PLATELET 256 x10EE3/UL Normal 150 - 450 [facility] Comment on above: Performed By: #### 2 [id number] #### [facility],[address] [place] [id number] Platelet mean volume (Bld) [Entitic vol] 8.0 fL Normal 6.6 - 10.5 [facility] Comment on above: Result Comment: {CB] Performed By: #### 2 [id number] #### [facility],[address] [place] [address] 37813 RBC 4.45 x 10EE6/UL Normal 4.10 - 5.30 [facility] Comment on above: Performed By: #### 2 57381 #### [facility],[address] [place] [address] 26174 WBC 6.7 x 10EE3/UL Normal 4.5 - 10.8 [facility] Comment on above: Performed By: #### 2 74092 #### [facility],[address] [place] [address] 06896 CMP with eGFRon 09-01-2022 AGE 52 years Normal [facility] Comment on above: Performed By: #### 2 08981 #### [facility],[address] [place] [address] 46366 Albumin [Mass/Vol] 3.4 g/dL Normal 3.4 - 5.0 [facility] Comment on above: Performed By: #### 2 68388 #### [facility],[address] [place] [address] 38696 Albumin/Globulin [Mass ratio] 0.9 {ratio} Normal 0.9 - 1.6 [facility] Comment on above: Performed By: #### 2 07892 #### [facility],[address] [place] [address] 40398 ALK PHOS 124 U/L High 46 - 116 [facility] Comment on above: Performed By: #### 2 06147 #### [facility],[address] [place] [address] 12719 ALT [Catalytic activity/Vol] 14 U/L Normal 14 - 59 [facility] Comment on above: Performed By: #### 2 58825 #### [facility],[address] [place] [address] 48201 Anion gap [Moles/Vol] 12 mmol/L Normal 10 - 20 [facility] Comment on above: Performed By: #### 2 37915 #### [facility],[address] [place] [address] 26870 AST [Catalytic activity/Vol] 31 U/L Normal 13 - 39 [facility] Comment on above: Performed By: #### 2 48561 #### [facility],[address] [place] [address] 29724 B/C RATIO 9 ratio Normal 0 - 30 [facility] Comment on above: Performed By: #### 2 70542 #### [facility],[address] [place] [address] 54040 Bilirubin [Mass/Vol] 0.5 mg/dL Normal 0.2 - 1.0 [facility] Comment on above: Performed By: #### 2 58701 #### [facility],[address] [place] [address] 66986 Calcium [Mass/Vol] 7.6 mg/dL Low 8.5 - 10.1 [facility] Comment on above: Performed By: #### 2 72409 #### [facility],[address] [place] [address] 03107 Chloride [Moles/Vol] 103 mmol/L Normal 98 - 107 [facility] Comment on above: Performed By: #### 2 19755 #### [facility],[address] [place] [address] 17331 CMP with eGFR Normal [facility] Comment on above: Result Comment: COMP REHENSIVE METABOLIC PANEL Performed By: #### 2 26323 #### [facility],[address] [place] [address] 48054 CO2 [Moles/Vol] 30.4 mmol/L Normal 21.0 - 32.0 [facility] Comment on above: Performed By: #### 2 45249 #### [facility],[address] [place] [address] Creatinine [Mass/Vol] 2.34 mg/dL High 0.55 - 1.02 [facility] Comment on above: Performed By: #### 2 28769 #### [facility],[address] [place] [address] eGFR 22 ML/MINUTE Low 60 - 999 [facility] Comment on above: Performed By: #### 2 35825 #### [facility],[address] [place] [address] eGFR(AA) 26 ML/MINUTE Low 60 - 999 [facility] Comment on above: Result Comment: ACCO RDING TO THE NATIONAL KIDNEY DISEASE EDUCATION PROGRAM(NKDE), A NORMAL eGFR IS A VALUE GREATER THAN OR EQUAL TO 60 ML/MIN/1.73 SQ METERS. CHRONIC KIDNEY DISEASE: <60mL/MIN/1.73 SQ METERS KIDNEY FAILURE: <15mL/MIN/1.73 SQ METERS THIS TEST SHOULD ONLY BE USED FOR PATIENTS 18 YEARS OF AGE AND OLDER. Performed By: #### 2 09401 #### [facility],[address] [place], [place] [id number] Globulin (S) [Mass/Vol] 3.7 g/dL Normal 1.5 - 3.8 [facility] Comment on above: Performed By: #### 2 75333 #### [facility],[address],[place] [address] Glucose [Mass/Vol] 100 mg/dL Normal 74 - 106 [facility] Comment on above: Performed By: #### 2 26153 #### [facility],[address] [place] [address] 56743 Potassium [Moles/Vol] 4.5 mmol/L Normal 3.5 - 5.1 [facility] Comment on above: Performed By: #### 2 81265 #### [facility],[address] [place] [address] 70228 Protein [Mass/Vol] 7.1 g/dL Normal 6.4 - 8.2 [facility] Comment on above: Performed By: #### 2 16703 #### [facility],[address] [place] [address] 94237 Sodium [Moles/Vol] 141 mmol/L Normal 136 - 145 [facility] Comment on above: Performed By: #### 2 73977 #### [facility],[address] [place] [address] 76571 Urea nitrogen [Mass/Vol] 21 mg/dL High 7 - 18 [facility] Comment on above: Performed By: #### 2 54587 #### [facility],[address] [place] [address] 13433 LIPID PROFILEon 09-01-2022 Cholesterol [Mass/Vol] 240 mg/dL Normal 0 - 240 [facility] Comment on above: Performed By: #### 2 71972 #### [facility],[address] [place] [address] 94797 Cholesterol in HDL [Mass/Vol] 50 mg/dL Normal 40 - 60 [facility] Comment on above: Performed By: #### 2 78319 #### [facility],[address] [place] [address] 77507 Cholesterol in LDL [Mass/Vol] 148 mg/dL High 0 - 129 [facility] Comment on above: Performed By: #### 2 95698 #### [facility],[address] [place] [address] 28562 Cholesterol.total/Cho lesterol in HDL [Mass ratio] 4.8 {ratio} Normal 0.0 - 5.0 [facility] Comment on above: Performed By: #### 2 20505 #### [facility],[address] [place] [address] 66048 Lipid 1996 panel Normal [facility] Comment on above: Result Comment: LIPI D PROFILE Performed By: #### 2 51910 #### [facility],[address] [place] [address] 52916 Triglyceride [Mass/Vol] 210 mg/dL High 0 - 150 [facility] Comment on above: Performed By: #### 2 94653 #### [facility],[address] [place] [address] 92659 T4-FREE (FREE THYROXINE)on Free T4 [Mass/Vol] 1.31 ng/dL Normal 0.76 - 1.46 [facility] Comment on above: Result Comment: P otential of falsely elevated results when biotin concentrations are > 10 ng/mL. Performed By: #### 2 98445 #### [facility],[address] [place] [address] 36272 TSHon 09-01-2022 TSH Qn 2.25 m[IU]/L Normal 0.35 - 3.74 [facility] Comment on above: Performed By: #### 2 81638 #### [facility],[address] [place] [address] 02304 VITAMIN D, 25 HYDROXYon 08-20 VitD 13.20 ng/mL Low 30.00 - 100 [facility] Comment on above: Result Comment: 25-O HD3 indicates both endogenous production and supplementation. 25-OHD2 is an indicator of exogenous sources, such as diet or supplementation. Therapy is based on measurement of Total 25-OHD, with levels <20 ng/mL indicative of Vitamin D deficiency, while levels between 20 ng/mL and 30 ng/mL suggest insufficiency. Optimal levels are >=30ng/mL. Vitamin D, 25-OH D3 Not Established Vitamin D, 25-OH D2 Not Established Performed By: #### 2 07907 #### [facility],[address] [place] [address] 04355 Established Visit (Pain Medi cine)on 08-31-2022 Established Visit (Pain Medicine) Diagnoses/Problems Lumbosacral radiculopathy (724.4) (M54.17) Lumbosacral spondylosis (721.3) (M47.817) Right rotator cuff tear (840.4) (M75.101) Orders Arthropathy of right shoulder, Lumbosacral spondylosis Renew: Pregabalin 50 MG Oral Capsule; TAKE 1 CAPSULE 3 TIMES DAILY Provider Impressions Patient is a 52 year-old female with a past medical history significant for right shoulder arthropathy, right shoulder rotator cuff tear, and chronic pain. At this time she continues to use the [place] 5/325 1 p.o. up to 3 times daily as needed pain as well as the Lyrica. Narcan was offered and declined. OARRS was reviewed and is appropriate. Most recent UDS was also reviewed and is appropriate. At this time, she is requesting a refill of lyrica, pharmacy. In regards to her shoulder, We will refer her to Ortho to talk about her options. Follow-up in 3 months. Chief Complaint Pain FUV PATIENT STATES SHE NEEDS REFILLS OF MEDICATIONS SENT TO [facility]. PATIENT STATES THE PAIN IN HER RIGHT SHOULDER IS A DEEP STABBING PAIN. PATIENT'S PAIN IS MADE WORSE WITH LIFTING, GRIPPING, MOTION AND REPETITIVE MOTION. PATIENT DENIES DOING AT HOME STRETCHES AND SHE HAS NOT TRIED PT DUE TO HER LIGAMENTS AND ROTATOR CUFF DAMAGE. PATIENT STATES COLD MAKES HER PAIN WORSE BUT SHE IS GOING TO GET A HEATING PAD TO SEE IF THAT HELPS HER PAIN. SHE HAS PINS AND NEEDLES IN HER RIGHT ARM. PAIN SCORE 8/10. Adult Risk Screening Healthcare POA: Health care proxy on file. Declaration of Mental Health Treatment: Declaration of mental health treatment on file. Depression/Suicide Screening: During the past 2 weeks, the patient has not felt down, depressed or hopeless. During the past 2 weeks, the patient has not felt little interest or pleasure in doing things. She does not have a risk of suicide. She has not had thoughts of harming others. History of Present Illness On a scale of 0 to 10, the patient rates the pain at 8. Pain Location: RIGHT SHOULDER. Pain Quality: Stabbing and DEEP. Sensory/ Motor: Pins and Round O. Timing/Duration: Constant and > 12 weeks duration. Exacerbating Factors: gripping, motion, lifting and repetitive motion. Alleviating Factors: Medications. 24 Hour Behavior: Symptoms are the same in the am. Symptoms are the same as the day progresses. Symptoms are the same in the pm. Symptoms are the same when lying down. Patient is a 52-year-old female. She has a past medical history significant for arthropathy of the right shoulder and right shoulder rotator cuff tear. Patient continues to use lyrica, [place] 5/325 1 p.o. up to 3 times daily as needed pain. Right now she is having the arm pain that she rates an 8/10 pain her quality of life and activities of daily. Impacting her ability to do things. She previously was referred to Dr. Le. Due to her other medical conditions He was not sure that they will be able to do the surgery. She states that she was recently referred to [facility] by her primary care physician but she left knee. She think she would like to proceed. She is having difficulty with holding her grandchild and doing her normal every day. Because of her shoulder pain. This is her main concern at this time she wants it taken care of. Review of Systems 13 systems all normal except noted in HP. 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) Atypical chest pain (786.59) (R07.89) Brain lesion (348.89) (G93.9) Cervical radiculitis (723.4) (M54.12) Chronic pain disorder (338.4) (G89.4) Depression (311) (F32.A) GERD (gastroesophageal reflux disease) (530.81) (K21.9) High blood pressure (401.9) (I10) History of high cholesterol (V12.29) (Z86.39) Insomnia (780.52) (G47.00) Lumbosacral radiculopathy (724.4) (M54.17) Lumbosacral spondylosis (721.3) (M47.817) Mastoiditis of right side (383.9) (H70.91) Multiple sclerosis (340) (G35) Neurogenic claudication due to lumbar spinal stenosis (724.03) (M48.062) Preoperative testing (V72.84) (Z01.818) Right rotator cuff tear (840.4) (M75.101) Sacroiliitis (720.2) (M46.1) Thyroid disease (246.9) (E07.9) Past Medical History History of kidney disease (V13.09) (Z87.448) stage 3 History of methicillin resistant Staphylococcus aureus infection (V12.04) (Z86.14) History of throat cancer (V10.02) (Z85.819) Surgical History History of Bladder surgery History of section x3 History of Hernia repair History of Intra-articular corticosteroid injection Managed By: Lucila Ruff (Pain Medicine) Tiburcio AMBROSIO History of Throat surgery 2010 at [facility] Family History Family history of lung cancer (V16.1) (Z80.1) Family history of heart failure (V17.49) (Z82.49) Family history of malignant neoplasm of colon (V16.0) (Z80.0) Family history of diabetes mellitus (V18.0) (Z83.3) Family history of heart failure (V17.49) (Z82.49) Social History Consumes alcohol occasionally (V49.8 (more content not included)... Normal [facility] Established Visit (Pain Medi [facility])on 06-15-2022 Established Visit (Pain Medicine) Diagnoses/Problems Arthropathy of right shoulder (716.91) (M19.011) Cervical radiculitis (723.4) (M54.12) Lumbosacral radiculopathy (724.4) (M54.17) Right rotator cuff tear (840.4) (M75.101) Orders Arthropathy of right shoulder Renew: HYDROcodone-Acetaminoph en 5-325 MG Oral Tablet; TAKE 1 TABLET 3 times daily PRN pain Provider Impressions Patient is a 52 year-old female with a past medical history significant for right shoulder arthropathy, right shoulder rotator cuff tear, and chronic pain. At this time she continues to use the [place] 5/325 1 p.o. up to 3 times daily as needed pain as well as the Lyrica. Narcan was offered and declined. OARRS was reviewed and is appropriate. Most recent UDS was also reviewed and is appropriate. At this time, she is requesting a refill. This will be sent to her pharmacy. She tolerates the medication. She states that it is not perfect but her pain is better controlled with it. It helps her get her through her normal activities of daily living and it helps her to sleep. She is working on getting a new orthopedic surgeon. She had a lot of questions that I answered to her satisfaction. She is going to follow-up in 2 to 3 months. She will call the clinic should she require a refill prior to her next appointment. Chief Complaint Shoulder Pain ONGOING RIGHT SHOULDER PAIN, DEEP,STABBING PAIN, SHE GETS THE MOST PAIN WITH SLEEP WHEN SHE LAYS ON THE RIGHT BUT CANNOT SLEEP ON THE LEFT, TAKING HYDROCODONE DIRECTED, SHE TAKES THE LYRICA PRN IT MAKES HER FEEL WEIRD, SHE DOES NOT TAKE MELOXICAM, SHES THINKING ABOUT A HEATING PAD, PAIN WITH MOTION,LIFTING, REP MOTION, REST, SCORE 8/10 Adult Risk Screening Living Will. Living Will: Living will on file. Healthcare POA: Health care proxy on file. Domestic Violence Screen: Does not feel threatened or abused physically, emotionally or sexually. Do you feel UNSAFE? The patient feels safe in the home. Depression/Suicide Screening: During the past 2 weeks, the patient has not felt down, depressed or hopeless. During the past 2 weeks, the patient has not felt little interest or pleasure in doing things. Reference Documentation See scanned note REVIEW OF SYSTEMS/ OPIOID RISK TOOL. History of Present Illness On a scale of 0 to 10, the patient rates the pain at 8. Pain Location: RIGHT SHOULDER. Pain Quality: Stabbing and DEEP. Pain Radiation: RIGHT ARM TO WRIST. Sensory/ Motor: Numbness. Timing/Duration: Constant and > 12 weeks duration. Exacerbating Factors: gripping, motion, lifting and repetitive motion. Alleviating Factors: Medications. 24 Hour Behavior: Symptoms are the same in the am. Symptoms are the same as the day progresses. Symptoms are the same in the pm. Symptoms are the same when lying down. Patient is a 52-year-old female. She has a past medical history significant for arthropathy of the right shoulder and right shoulder rotator cuff tear. She saw Dr. Le. He did discuss surgery with her but he wanted her to have clearance with anesthesia and cardiac clearance. She was able to get these clearances but now she states that she was advised that Dr. Le is leaving. They recommended her to find a bigger [facility] to have her surgery at. She has not yet done this. Patient continues to use [place] 5/325 1 p.o. up to 3 times daily as needed pain. She states that this does help her. She has right shoulder pain that she rates an 8/10. The medication at least gives her enough relief that she can sleep. She is tearful today and she states that she is just frustrated. She wants to get the help that she needs so she can begin to get better. 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) Atypical chest pain (786.59) (R07.89) Brain lesion (348.89) (G93.9) Cervical radiculitis (723.4) (M54.12) Chronic pain disorder (338.4) (G89.4) Depression (311) (F32.A) GERD (gastroesophageal reflux disease) (530.81) (K21.9) High blood pressure (401.9) (I10) History of high cholesterol (V12.29) (Z86.39) Insomnia (780.52) (G47.00) Lumbosacral radiculopathy (724.4) (M54.17) Lumbosacral spondylosis (721.3) (M47.817) Mastoiditis of right side (383.9) (H70.91) Multiple sclerosis (340) (G35) Neurogenic claudication due to lumbar spinal stenosis (724.03) (M48.062) Preoperative testing (V72.84) (Z01.818) Right rotator cuff tear (840.4) (M75.101) Sacroiliitis (720.2) (M46.1) Thyroid disease (246.9) (E07.9) Past Medical History History of kidney disease (V13.09) (Z87.448) stage 3 History of methicillin resistant Staphylococcus aureus infection (V12.04) (Z86.14) History of throat cancer (V10.02) (Z85.819) Surgical History History of Bladder surgery History of section x3 History of Hernia repair History of Intra-articular corticosteroid injection Managed By: Lucila Ruff (Pain Medicine) [employer] History of Throat surgery 2010 at [facility] (more content not included)... Normal [employer] CARDIAC STRESS/REST INJECTIO Non 05-30-2022 CARDIAC STRESS/REST INJECTION Patient Name: VJ MYERS STUDY: CARDIAC STRESS/REST INJECTION; PART 2 STRESS OR REST (NO CHARGE); CARDIAC STRESS/REST (MYOCARDIAL PERFUSION/MIBI); 05/30/2022 9:45 am; 05/31/2022 9:34 am INDICATION: chest pain TWO DAY STRESS R07.89: Atypical chest pain Z01.818: Preoperative testing. COMPARISON: None. ACCESSION NUMBER(S): [id number]; [id number]; [id number] ORDERING CLINICIAN: GREY AVILEZ TECHNIQUE: DIVISION OF NUCLEAR MEDICINE PHARMACOLOGIC STRESS MYOCARDIAL PERFUSION SCAN, TWO DAY PROTOCOL The patient received an intravenous infusion of 0.4 mg regadenoson (Lexiscan) followed by an intravenous administration of 36 mCi of Tc-99m Myoview. Stress phase emission tomographic (SPECT) images of the myocardium were then acquired. These included ECG-gated views to assess and quantify ventricular function. On a previous day, the patient had received a resting administration of 36 mCi of Tc-99m Myoview. Resting SPECT images were acquired. A low-dose, nondiagnostic regional CT was utilized for attenuation correction purposes. FINDINGS: Both stress and rest studies demonstrate grossly normal perfusion throughout the left ventricle. There is a small, mild, inducible apical defect apparent on stress imaging compared to rest imaging, likely a normal variant. The left ventricle is normal in size. Gated images demonstrate normal LV wall motion with an LV EF estimated at 62%. Attenuation correction CT images demonstrate no gross anatomic abnormalities. IMPRESSION: 1. Normal myocardial perfusion study without evidence of ischemia or prior infarction. There is a small, mild, inducible apical defect apparent on stress imaging compared to rest imaging, favored to be a normal variant over true reversible ischemia. 2. The left ventricle is normal in size. 3. Normal LV wall motion with an LV EF estimated at 62%. I personally reviewed the images/study and I agree with the findings as stated. This study was interpreted at [facility], [place], [place]. Electronically signed by: BRAD MARIE MD Normal [facility] No Panel Informationon 05-30 Normal -Cardiology[address] Work Phone: [facility] Work Phone: [facility] [address] [place] [address] [phone], Nuclear Pharmacologic Stress Test Patient Name: VJ MYERS Ordering Physician: Study Date: 05/30/2022 Reading Physician: Reanna Avilez MD MRN/PID: [id number] Supervising Physician: Reanna Avilez MD Accession/Order#: [id number] Referring Physician: Reanna Avilez MD Date of : 1970 PCP: Iqra Rose NP Gender: F Fellow: Admit Date: 05/30/2022 Fellow: Admission Status: Outpatient Regional Property Manager: Mansoor Owens RRT Height: 160.02 cm Nurse: AIDEE Weight: 134.27 kg Apprentice Jockey: AIDEE BSA: 2.28 m2 Technologist: BMI: 52.43 kg/m2 Additional Staff: Age: 52 years cc report to: Patient Location: [facility] Stress Lab cc report to: Study Type: [facility] Diagnosis/ICD: R07.89-Other chest pain Indication: Chest Pain Atypical Procedure/CPT: Stress Test Interpretation-[id number]; Stress Test Supervision-[id number] Falls Risk: Moderate: Patient has moderate risk for sustaining a fall; a falls prevention plan has been implemented. Study Details: Correct procedure and correct patient verified verbally and with ID Band checked. Patient History: Hyperlipidemia, hypertension and family history of congestive heart failure. Allergies: IV Contrast Media, morphine. Smoker: Former. Diabetes: No. BMI: Obese >30. Medications: Atorvastatin, amlodipine, carvedilol, sertralne and Hyzaar, hydroxyzinr, L-Thyroxin, liothyronine, meloxicam, omeprazole, pregabalin. The patient did not take medications as prescribed. Patient Performance: Patient received a total of 0.4 mg of Regadenoson at 8:34:14 AM. Patient received a total of 36 mCi of MIBI at 8:34:38 AM. The patient did not exercise during infusion. The peak heart rate achieved was 97 bpm, which was 58 % of the age predicted target heart rate of 168 bpm. The resting blood pressure was 107/80 mmHg with a heart rate of 83 bpm. The patient developed no symptoms during the stress exam. The blood pressure response was normal. The test was terminated due to: completed lab protocol. Baseline ECG: Resting ECG showed normal sinus rhythm with normal tracing. Stress ECG: Stress ECG showed normal sinus rhythm, with no abnormal findings. Stress Stage Data: + +--+-- ----+-------+ HR Sys BP Dumont BP + +--+-- ----+-------+ Baseline Resting 83 107 80 + +--+-- ----+-------+ Stage I 83 + +--+-- ----+-------+ Stage II 97 104 55 + +--+-- ----+-------+ Recovery ECG: Recovery ECG showed normal sinus rhythm, with no abnormal findings. The heart rate recovery was normal. + +--+------ +-------+ HR Sys BP Dumont BP + +--+------ +-------+ Recovery I 90 + +--+------ +-------+ Recovery II 90 109 63 + +--+------ +-------+ Recovery III 90 + +--+------ +-------+ Recovery IV 87 115 68 + +--+------ +-------+ Summary: 1. Baseline EKG shows normal sinus rhythm with no resting ST-T segment changes. 2. With regadenoson infusion no ST-T segment changes suggestive of ischemia or sustained ventricular arrhythmias are seen. 3. Regadenoson stress EKG is negative for ischemia. 4. Nuclear image results are reported separately. 5. The adequate level of stress was achieved. [id number] Grey Avilez MD Electronically signed on 05/30/2022 at 1:20:15 PM Final Normal [facility] Office Visit (Cardiology)on 05-18-2022 Follow-up visit Diagnoses/Problems Assessed Atypical chest pain (786.59) (R07.89) Preoperative testing (V72.84) (Z01.818) Orders Atypical chest pain, Preoperative testing NM Cardiac Stress/Rest Nuclear Med Order; Status:Hold For - Scheduling; Requested for:18May2022; Radiologist to Determine Optimal Study : Y What are the patient's signs and symptoms? : chest pain Chief Complaint Preoperative risk stratification History of Present [id number]-ebf female with a medical history of hypertension, hyperlipidemia, hypothyroidism here for the following: Preoperative risk stratification -Patient is currently being evaluated for surgery on her right shoulder. -As part of the preop evaluation the patient admitted to having chest discomfort for the past 2 months. Patient notes that these episodes are not associated with exertion. They are paroxysmal. And are described as pressure lasting about 2-3 minutes. She also notes dyspnea with minimal exertion (baseline). Denies any orthopnea/PND/lower extremity edema. Denies any dizziness or lightheadedness. Notably patient does have a history of laryngeal cancer and has underwent extensive surgery/radiation/chemo therapy. Currently has a tracheostomy in place. Active Problems Problems Anxiety (300.00) (F41.9) Arthropathy of right shoulder (716.91) (M19.011) Brain lesion (348.89) (G93.9) Cervical radiculitis (723.4) (M54.12) Chronic pain disorder (338.4) (G89.4) Depression (311) (F32.A) GERD (gastroesophageal reflux disease) (530.81) (K21.9) High blood pressure (401.9) (I10) History of high cholesterol (V12.29) (Z86.39) Insomnia (780.52) (G47.00) Lumbosacral radiculopathy (724.4) (M54.17) Lumbosacral spondylosis (721.3) (M47.817) Mastoiditis of right side (383.9) (H70.91) Multiple sclerosis (340) (G35) Neurogenic claudication due to lumbar spinal stenosis (724.03) (M48.062) Right rotator cuff tear (840.4) (M75.101) Sacroiliitis (720.2) (M46.1) Thyroid disease (246.9) (E07.9) Surgical History Problems History of Bladder surgery History of section x3 History of Hernia repair History of Intra-articular corticosteroid injection Managed By: Lucila Ruff (Pain Medicine) Tiburcio [facility] History of Throat surgery 2011 at [facility] Past Medical History Problems History of kidney disease (V13.09) (Z87.448) stage 3 History of methicillin resistant Staphylococcus aureus infection (V12.04) (Z86.14) History of throat cancer (V10.02) (Z85.819) Current Meds Medication NameInstruction amLODIPine Besylate 10 MG Oral TabletTAKE 1 TABLET DAILY. Atorvastatin Calcium 10 MG Oral TabletTAKE 1 TABLET DAILY. Carvedilol 6.25 MG Oral TabletTake 1 tablet twice daily HYDROcodone-Acetaminoph en 5-325 MG Oral TabletTAKE 1 TABLET 3 times daily PRN pain hydrOXYzine HCl - 25 MG Oral TabletTake as directed Hyzaar 100-25 MG Oral TabletTAKE 1 TABLET ONCE DAILY. Liothyronine Sodium 5 MCG Oral TabletTAKE 1 TABLET DAILY. L-Thyroxine Sodium 125 MCG TABSTAKE 1 TABLET DAILY. Meloxicam 15 MG Oral TabletTAKE 1 TABLET Daily as needed for breakthrough pain Omeprazole 40 MG Oral Capsule Delayed ReleaseTAKE 1 CAPSULE Daily predniSONE 20 MG Oral TabletTake 1 tablet daily Pregabalin 50 MG Oral CapsuleTAKE 1 CAPSULE 3 TIMES DAILY. Sertraline HCl - 50 MG Oral TabletTAKE 1 TABLET DAILY. Allergies Medication Contrast Media Ready-Box MISC Recorded By: Jenna Del Rio; 10/26/2021 12:12:18 PM morphine Recorded By: Jenna Del Rio; 10/26/2021 12:12:18 PM nausea/vomiting Family History Mother Family history of lung cancer (V16.1) (Z80.1) Father Family history of heart failure (V17.49) (Z82.49) Sister Family history of malignant neoplasm of colon (V16.0) (Z80.0) Brother Family history of diabetes mellitus (V18.0) (Z83.3) Grandmother Family history of heart failure (V17.49) (Z82.49) Social History Problems Consumes alcohol occasionally (V49.89) (Z78.9) Daily caffeine consumption Feels safe at home Former smoker (V15.82) (Z87.891) No illicit drug use Patient has living will (V49.89) (Z78.9) Review of Systems Constitutional: Denies any fever or chills Eyes: Denies any eye pain or blurry vision ENT: Denies any ear pain or hearing loss Cardiovascular: The heart rate is not slow, the heart rate is not fast Respiratory: Denies any asthma/wheezing Gastrointestinal: Denies any inder colored stools or fatty food intolerance Genitourinary: Denies any blood in the urine or pelvic pain Musculoskeletal: Denies any swelling in the joints or difficulty walking Skin: Denies any skin lumps or skin lesions Neurological: Denies any dizziness/tingling Vitals Vital Signs Recorded: 18May2022 11:02AM Heart Rate85 Luadwylt697, RUE Felecvwaj25, RUE Height5 ft 3 in Oqcndu232 lb BMI Bxptqkndbk22.43 kg/m2 BSA Calculated2.28 Tobacco Useb) No Falls Screening (Age 18+)b) One or more falls in the last year O2 Nkygsvnnva19 Physical Ex (more content not included)... Normal e-Zassi Tobacco Screening.on 022 Fall risk assessment b) One or more fall s in the last year [facility] Work Phone: Tobacco use status [facility] b) No [facility] Work Phone: Established Visit (Pain Medi cine)on 05-11-2022 Established Visit (Pain Medicine) Diagnoses/Problems Arthropathy of right shoulder (716.91) (M19.011) Cervical radiculitis (723.4) (M54.12) Lumbosacral radiculopathy (724.4) (M54.17) Lumbosacral spondylosis (721.3) (M47.817) Orders Arthropathy of right shoulder Renew: HYDROcodone-Acetaminoph en 5-325 MG Oral Tablet; TAKE 1 TABLET 3 times daily PRN pain Provider Impressions Patient is a 51-year-old female with a past medical history significant for right shoulder arthropathy, right shoulder rotator cuff tear, and chronic pain. She is still working on obtaining all the clearances that she needs to have the surgery. At this time she continues to use the [place] 5/325 1 p.o. up to 3 times daily as needed pain as well as the Lyrica. She is requesting a refill of the [place]. This will be sent to her pharmacy. Narcan was offered and declined. OARRS was down. MAR was reviewed and refill is appropriate. Most recent UDS was also appropriate. At this time she is going to continue to use medications. She is going to continue to work on clearances. We will see patient back in a month for reevaluation. Call the clinic sooner if necessary. Chief Complaint Patient complains of pain in her right arm from shoulder to wrist. Patient rates her pain a 8/10. Patient states that the pain medication is effective. Patient states she was just discharged from the hospital for MRSA. Patient denied alcohol use. Adult Risk Screening Living Will. Living Will: Living will on file. Healthcare POA: Health care proxy on file. Declaration of Mental Health Treatment: No mental health treatment on file. Single alcohol screening question: In the past year the patient has had 5 or more drinks (men) or 4 or more drinks (women)? 0 time(s). Reference Documentation See scanned note Review of Systems. History of Present Illness On a scale of 0 to 10, the patient rates the pain at 8. Pain Location: Right arm shoulder to wrist. Pain Quality: Sharp. Pain Radiation: Radiates from shoulder to wrist. Sensory/ Motor: Numbness. Timing/Duration: Intermittent. Patient is a 52-year-old female. She has a past medical history significant for arthropathy of the right shoulder and right shoulder rotator cuff tear. She saw Dr. Le. He did discuss surgery with her but he wanted her to have clearance with anesthesia. She also needed to have cardiac clearance. She is working on this. She has an appoint with a puller out next month. Unfortunate, patient did get very sick. She was in the ICU. She had issues with MRSA per patient became septic. Patient continues to use [place] 5/325 1 p.o. up to 3 times daily as needed pain. She states that this does help her. She has right shoulder pain that she rates an 8/10. The medication at least gives her enough relief that she can sleep. She states that she is eager to once again progress with the clearances so that she can pursue surgery. She is eager to do this. Review of Systems 13 systems all normal except noted in HP. 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) Brain lesion (348.89) (G93.9) Cervical radiculitis (723.4) (M54.12) Chronic pain disorder (338.4) (G89.4) Depression (311) (F32.A) GERD (gastroesophageal reflux disease) (530.81) (K21.9) High blood pressure (401.9) (I10) History of high cholesterol (V12.29) (Z86.39) Insomnia (780.52) (G47.00) Lumbosacral radiculopathy (724.4) (M54.17) Lumbosacral spondylosis (721.3) (M47.817) Mastoiditis of right side (383.9) (H70.91) Multiple sclerosis (340) (G35) Neurogenic claudication due to lumbar spinal stenosis (724.03) (M48.062) Right rotator cuff tear (840.4) (M75.101) Sacroiliitis (720.2) (M46.1) Thyroid disease (246.9) (E07.9) Past Medical History History of kidney disease (V13.09) (Z87.448) stage 3 History of methicillin resistant Staphylococcus aureus infection (V12.04) (Z86.14) History of throat cancer (V10.02) (Z85.819) Surgical History History of Bladder surgery History of section x3 History of Hernia repair History of Intra-articular corticosteroid injection Managed By: Lucila Ruff (Pain Medicine) Tiburcio AMBROSIO History of Throat surgery 2011 at [facility] Social History Denies alcohol consumption (V49.89) (Z78.9) Feels safe at home Former smoker (V15.82) (Z87.891) No illicit drug use Patient has living will (V49.89) (Z78.9) Allergies Contrast Media Ready-Box MISC Recorded By: Jenna Del Rio; 10/26/2021 12:12:18 PM morphine Recorded By: Jenna Del Rio; 10/26/2021 12:12:18 PM nausea/vomiting Current Meds Medication NameInstruction amLODIPine Besylate 10 MG Oral Tablet Atorvastatin Calcium 10 MG Oral Tablet Carvedilol 6.25 MG Oral Tablet HYDROcodone-Acetaminoph en 5-325 MG Oral TabletTAKE 1 TABLET 3 times daily PRN pain hydrOXYzine HCl - 25 MG Oral Tablet Hyzaar 100-25 MG Oral Tablet Liothyronine Sodium 5 MCG Oral Tablet L-Thyroxine Sodium 125 MCG TABS Me (more content not included)... Normal [facility] Absolute lymphocyte counton 05-04-2022 Lymphocytes Auto (Unsp spec) [#/Vol] 1.03 10*3/uL 0.83-4.51 [facility] Work Phone: Basophil percentageon 2021 Basophil percentage Not Reportable W [facility] Work Phone: Chloride [Moles/Vol] 99 mmol/L 98-107 [facility] Work Phone: Glucose [Mass/Vol] 96 mg/dL 74-106 [facility] Work Phone: Neutrophils (Bld) [#/Vol] 7.9 10*3/uL 2.0-7.7 [facility] Work Phone: Potassium [Moles/Vol] 3.8 mmol/L 3.5-5.1 [facility] Work Phone: Sodium [Moles/Vol] 136 mmol/L 136-145 [facility] Work Phone: WBC (Bld) [#/Vol] 10.3 10*3/uL 4.4-11.0 [facility] Work Phone: Blood eosinophils/100 leukoc yteson 05-04-2022 Eosinophils/100 WBC (Bld) 2 % 0-5 [facility] Work Phone: Blood erythrocytes count (nu mber/volume)on 05-04-2022 RBC (Bld) [#/Vol] 3.96 10*6/uL 4.2-5.4 [facility] Work Phone: Blood hemoglobin measurement (mass/volume)on 05-04-2022 Hemoglobin (Bld) [Mass/Vol] 11.3 g/dL 12.0-15.0 [facility] Work Phone: Blood lymphocytes/100 leukoc yteson 05-04-2022 Lymphocytes/100 WBC (Bld) 10 % 19-41 [facility] Work Phone: Blood metamyelocytes/100 irma kocyteson 05-04-2022 Metamyelocytes/100 WBC (Bld) 3 % 0-1 [facility] Work Phone: Blood monocytes/100 leukocyt eson 05-04-2022 Monocytes/100 WBC (Bld) 3 % 0-10 [facility] Work Phone: Blood platelet adequacy dete ction by light microscopyon 05-04-2022 Platelets LM Ql (Bld) ADEQUATE ADEQ [facility] Work Phone: Blood platelet mean volumeon 05-04-2022 Platelet mean volume (Bld) [Entitic vol] 9.2 fL 6.2-12.0 [facility] Work Phone: Blood segmented neutrophils/ 100 leukocyteson 05-04-2022 Segmented neutrophils/100 WBC (Bld) 77 % 47-70 [facility] Work Phone: Determination of erythrocyte mean corpuscular volume (MCV)on 05-04-2022 MCV (RBC) [Entitic vol] 89.6 fL 81-99 [facility] Work Phone: Hematocrit Auto (Bld) [Volum e fraction]on 05-04-2022 Hematocrit (Bld) [Volume fraction] 35.5 % 37-47 [facility] Work Phone: Laboratory - Chemistry and C hemistry - challengeon 05-04-2022 CO2 [Moles/Vol] 32.0 mmol/L 21.0-32.0 [facility] Work Phone: Urea nitrogen/Creatinine [Mass ratio] 26.5 mg/mg 10-20 [facility] Work Phone: Laboratory - Hematology and Cell countson 05-04-2022 Erythrocyte distribution width (RBC) [Entitic vol] 46.1 fL 35.1-43.9 [facility] Work Phone: Erythrocyte distribution width (RBC) [Ratio] 14.0 % 11.6-14.6 [facility] Work Phone: MCH (RBC) [Entitic mass] 28.5 pg 27.0-32.0 [facility] Work Phone: Myelocytes/100 WBC (Bld) 5 % 0-0 [facility] Work Phone: MCHC Auto (RBC) [Mass/Vol]on 05-04-2022 MCHC (RBC) [Mass/Vol] 31.8 g/dL 32-36 [facility] Work Phone: No Panel Informationon 05-04 Estimated Creatinine Clearance Calc 57.85 ml/min [facility] Work Phone: Estimated GFR (MDRD) Amer 84 mL/min >60 [facility] Work Phone: Comment on above: GFR Calc Estimated GFR (MDRD) Non-Af Amer 69 mL/min >60 [facility] Work Phone: Comment on above: Non- GFR Calc Platelets bldon 05-04-2022 Platelets (Bld) [#/Vol] 248 10*3/uL 150-450 [facility] Work Phone: RBC morphologyon 05-04-2022 RBC morphology finding Nom (Bld) NORM C+C NORMAL NORM C&C [facility] Work Phone: Review by pathologiston 04-20 Pathologist review Alexis (Unsp spec) [Interp] March shan [facility] Work Phone: Serum or plasma calcium alessandro urement (mass/volume)on 05-04-2022 Calcium [Mass/Vol] 8.8 mg/dL 8.5-10.1 [facility] Work Phone: Serum or plasma creatinine m easurement (mass/volume)on 05-04-2022 Creatinine [Mass/Vol] 0.91 mg/dL 0.55-1.02 [facility] Work Phone: Comment on above: The validity of the calculated GFR & GFRAA in patients over 70 years has not been determined. Clinical correlation is essential. Serum or plasma urea nitroge n measurement (mass/volume)on 05-04-2022 Urea nitrogen [Mass/Vol] 24 mg/dL 7-18 [facility] Work Phone: Thin prep Papanicolaou smear with manual screeningon 05-04-2022 Thin prep Papanicolaou smear with manual screening 5 -15 [facility] Work Phone: Total cell counton 2 Cells counted Molgen (Bld/Tiss) [#] 100 MANUAL DIFF [facility] Work Phone: Serum or plasma vancomycin m easurement (mass/volume)on 05-03-2022 Vancomycin [Mass/Vol] 10.1 ug/mL 0.0-15.0 [facility] Work Phone: Comment on above: VANCOMYCIN STANDARD DRUG THERAPY: CRITICAL VALUE IS > 15.0 mg/L VANCOMYCIN HIGH INTENSITY THERAPY: CRITICAL VALUE IS > 20.0 mg/L PLEASE CONTACT PHARMACY SERVICES (#[id number]) FOR INTERPRETATIONOF RESULTS. THIS RESULT DOES NOT REPRESENT A PEAK OR TROUGHLEVEL FOR THIS DRUG. Basophil percentageon 2021 Basophils/100 WBC (Bld) 0.2 % 0-1 [facility] Work Phone: Eosinophils/100 WBC (Bld) 1.0 % 0-5 [facility] Work Phone: Blood lymphocytes/100 leukoc yteson 05-02-2022 Lymphocytes/100 WBC (Bld) 5.0 % 19-41 [facility] Work Phone: Blood monocytes/100 leukocyt eson 05-02-2022 Monocytes/100 WBC (Bld) 4.4 % 0-10 [facility] Work Phone: Laboratory - Hematology and Cell countson 05-02-2022 Immature granulocytes/100 WBC (Bld) 3.700 % 0.0-0.9 [facility] Work Phone: Comment on above: IG% - Immature Granu locytes (promyelocytes, myelocytes and metamyelocytes) > 1% indicates that a LEFT SHIFT is Present. Nucleated RBC/100 WBC (Bld) [Ratio] 0 % 0-5 [facility] Work Phone: Blood manual differential co mment interpretation (narrative result)on 05-01-2022 Manual differential comment Alexis (Bld) [Interp] SCANNED [facility] Work Phone: Comment on above: LYMPHOPENIA NOTED Vancomycin troughon 05-01-20 22 Vancomycin trough [Mass/Vol] 22.6 ug/mL 5.0-15.0 [facility] Work Phone: Comment on above: VANCOMYCIN STANDARED DRUG THERAPY TROUGH LEVEL: 5.0 - 15.0 mg/L VANCOMYCIN HIGH INTENSITY THERAPY TROUGH LEVEL: 15.0 - 20.0 mg/L High Intensity therapy recommended for serious lifethreatening infections include:- Ttfakgwhnj-Wtsuqrixwpnv-Opbifaxdo (Ventilator/Healtcare Associated)-Sepsis PLEASE CONTACT PHARMACY SERVICES (#[id number]) FOR INTERPRETATIONOF RESULTS. No Panel Informationon 04-30 Methicillin-Resist S.aureus DNA PCR Positive Negative [facility] Work Phone: Comment on above: RESULTS CALLED TO CHAD 04/30/22 0824 Johana Peña.REPORT READ BACK BY CHRISTIANO.Copy of report sent to [facility] MS#-[id number] ANGELICA.Previous reported result: POSITIVE Edited by: ANGELICA on 04/30/22:0825 Absolute lymphocyte counton 04-29-2022 Lymphocytes Auto (Unsp spec) [#/Vol] 0.45 10*3/uL 0.83-4.51 [facility] Work Phone: Basophil percentageon 2021 Basophils/100 WBC (Bld) 0.2 % 0-1 [facility] Work Phone: Chloride [Moles/Vol] 100 mmol/L 98-107 [facility] Work Phone: Eosinophils/100 WBC (Bld) 0.0 % 0-5 [facility] Work Phone: Glucose [Mass/Vol] 102 mg/dL 74-106 [facility] Work Phone: Comment on above: Fasting Glucose resu lt from 100 to 125 mg/dL suggests IMPAIRED HOMEOSTASIS per A.D.A. criteria. Lactate [Moles/Vol] 1.1 mmol/L 0.4-2.0 [facility] Work Phone: Neutrophils (Bld) [#/Vol] 14.6 10*3/uL 2.0-7.7 [facility] Work Phone: Neutrophils/100 WBC (Bld) 89.0 % 47-70 [facility] Work Phone: Potassium [Moles/Vol] 3.8 mmol/L 3.5-5.1 [facility] Work Phone: Sodium [Moles/Vol] 138 mmol/L 136-145 [facility] Work Phone: WBC (Bld) [#/Vol] 16.4 10*3/uL 4.4-11.0 [facility] Work Phone: Blood erythrocytes count (nu mber/volume)on 04-29-2022 RBC (Bld) [#/Vol] 4.27 10*6/uL 4.2-5.4 [facility] Work Phone: Blood hemoglobin measurement (mass/volume)on 04-29-2022 Hemoglobin (Bld) [Mass/Vol] 12.4 g/dL 12.0-15.0 [facility] Work Phone: Blood lymphocytes/100 leukoc yteson 04-29-2022 Lymphocytes/100 WBC (Bld) 2.7 % 19-41 [facility] Work Phone: Blood manual differential co mment interpretation (narrative result)on 04-29-2022 Manual differential comment Alexis (Bld) [Interp] SEE COMMENT [facility] Work Phone: Comment on above: LYMPHOPENIA NOTED Blood monocytes/100 leukocyt eson 04-29-2022 Monocytes/100 WBC (Bld) 6.2 % 0-10 [facility] Work Phone: Blood platelet adequacy dete ction by light microscopyon 04-29-2022 Platelets LM Ql (Bld) ADEQUATE ADEQ [facility] Work Phone: Blood platelet mean volumeon 04-29-2022 Platelet mean volume (Bld) [Entitic vol] 9.7 fL 6.2-12.0 [facility] Work Phone: Determination of erythrocyte mean corpuscular volume (MCV)on 04-29-2022 MCV (RBC) [Entitic vol] 89.7 fL 81-99 [facility] Work Phone: Hematocrit Auto (Bld) [Volum e fraction]on 04-29-2022 Hematocrit (Bld) [Volume fraction] 38.3 % 37-47 [facility] Work Phone: Laboratory - Chemistry and C hemistry - challengeon 04-29-2022 CO2 [Moles/Vol] 32.0 mmol/L 21.0-32.0 [facility] Work Phone: Urea nitrogen/Creatinine [Mass ratio] 30.5 mg/mg 10-20 [facility] Work Phone: Laboratory - Hematology and Cell countson 04-29-2022 Anisocytosis Ql (Bld) RARE [facility] Work Phone: Erythrocyte distribution width (RBC) [Entitic vol] 44.9 fL 35.1-43.9 [facility] Work Phone: Erythrocyte distribution width (RBC) [Ratio] 13.8 % 11.6-14.6 [facility] Work Phone: Immature granulocytes/100 WBC (Bld) 1.900 % 0.0-0.9 [facility] Work Phone: Comment on above: IG% - Immature Granu locytes (promyelocytes, myelocytes and metamyelocytes) > 1% indicates that a LEFT SHIFT is Present. MCH (RBC) [Entitic mass] 29.0 pg 27.0-32.0 [facility] Work Phone: Nucleated RBC/100 WBC (Bld) [Ratio] 0 % 0-5 [facility] Work Phone: MCHC Auto (RBC) [Mass/Vol]on 04-29-2022 MCHC (RBC) [Mass/Vol] 32.4 g/dL 32-36 [facility] Work Phone: Macrocytes detectionon 04-29 Macrocytes Ql (Bld) RARE [facility] Work Phone: No Panel Informationon 04-29 Estimated Creatinine Clearance Calc 50.13 ml/min [facility] Work Phone: Estimated GFR (MDRD) Amer 71 mL/min >60 [facility] Work Phone: Comment on above: GFR Calc Estimated GFR (MDRD) Non-Af Amer 59 mL/min >60 [facility] Work Phone: Comment on above: Non- GFR Calc Troponin I High Sensitivity 8 pg/mL 3.0-54.0 [facility] Work Phone: Comment on above: Please Note: [place] t Units and Gender Specific Reference Ranges. For more information see Policy Stat Procedure [place] High Sensitivity Troponin (TNIH) and attachments. Platelets bldon 04-29-2022 Platelets (Bld) [#/Vol] 277 10*3/uL 150-450 [facility] Work Phone: RBC morphologyon 04-29-2022 RBC morphology finding Nom (Bld) N CHROM NORMAL NORM C&C [facility] Work Phone: Serum or plasma calcium alessandro urement (mass/volume)on 04-29-2022 Calcium [Mass/Vol] 8.8 mg/dL 8.5-10.1 [facility] Work Phone: Serum or plasma creatinine m easurement (mass/volume)on 04-29-2022 Creatinine [Mass/Vol] 1.05 mg/dL 0.55-1.02 [facility] Work Phone: Comment on above: The validity of the calculated GFR & GFRAA in patients over 70 years has not been determined. Clinical correlation is essential. Serum or plasma urea nitroge n measurement (mass/volume)on 04-29-2022 Urea nitrogen [Mass/Vol] 32 mg/dL 7-18 [facility] Work Phone: Thin prep Papanicolaou smear with manual screeningon 04-29-2022 Thin prep Papanicolaou smear with manual screening 6 5-15 [facility] Work Phone: Absolute lymphocyte counton 04-27-2022 Lymphocytes Auto (Unsp spec) [#/Vol] 0.40 10*3/uL 0.83-4.51 [facility] [facility] Work Phone: Basophil percentageon 2021 Basophils/100 WBC (Bld) 0.2 % 0-1 [facility] Work Phone: Chloride [Moles/Vol] 100 mmol/L 98-107 [facility] Work Phone: Eosinophils/100 WBC (Bld) 0.0 % 0-5 [facility] Work Phone: Glucose [Mass/Vol] 144 mg/dL 74-106 [facility] Work Phone: Comment on above: Fasting Glucose resu lt greater than or equal to 126 mg/dL suggests DIABETES MELLITUS per A.D.A. criteria. Neutrophils (Bld) [#/Vol] 9.9 10*3/uL 2.0-7.7 [facility] Work Phone: Neutrophils/100 WBC (Bld) 90.3 % 47-70 [facility] Work Phone: Potassium [Moles/Vol] 3.6 mmol/L 3.5-5.1 [facility] Work Phone: Sodium [Moles/Vol] 136 mmol/L 136-145 [facility] Work Phone: WBC (Bld) [#/Vol] 11.0 10*3/uL 4.4-11.0 [facility] Work Phone: Blood erythrocytes count (nu mber/volume)on 04-27-2022 RBC (Bld) [#/Vol] 4.18 10*6/uL 4.2-5.4 [facility] Work Phone: Blood hemoglobin measurement (mass/volume)on 04-27-2022 Hemoglobin (Bld) [Mass/Vol] 11.8 g/dL 12.0-15.0 [facility] Work Phone: Blood lymphocytes/100 leukoc yteson 04-27-2022 Lymphocytes/100 WBC (Bld) 3.6 % 19-41 [facility] Work Phone: Blood manual differential co mment interpretation (narrative result)on 04-27-2022 Manual differential comment Alexis (Bld) [Interp] SCANNED [facility] Work Phone: Blood monocytes/100 leukocyt eson 04-27-2022 Monocytes/100 WBC (Bld) 4.6 % 0-10 [facility] Work Phone: Blood platelet mean volumeon 04-27-2022 Platelet mean volume (Bld) [Entitic vol] 10.2 fL 6.2-12.0 [facility] Work Phone: Determination of erythrocyte mean corpuscular volume (MCV)on 04-27-2022 MCV (RBC) [Entitic vol] 90.7 fL 81-99 [facility] Work Phone: Hematocrit Auto (Bld) [Volum e fraction]on 04-27-2022 Hematocrit (Bld) [Volume fraction] 37.9 % 37-47 [facility] Work Phone: Laboratory - Chemistry and C hemistry - challengeon 04-27-2022 CO2 [Moles/Vol] 31.0 mmol/L 21.0-32.0 [facility] Work Phone: Urea nitrogen/Creatinine [Mass ratio] 23.1 mg/mg 10-20 [facility] Work Phone: Laboratory - Hematology and Cell countson 04-27-2022 Erythrocyte distribution width (RBC) [Entitic vol] 46.7 fL 35.1-43.9 [facility] Work Phone: Erythrocyte distribution width (RBC) [Ratio] 14.0 % 11.6-14.6 [facility] Work Phone: Immature granulocytes/100 WBC (Bld) 1.300 % 0.0-0.9 [facility] Work Phone: Comment on above: IG% - Immature Granu locytes (promyelocytes, myelocytes and metamyelocytes) > 1% indicates that a LEFT SHIFT is Present. MCH (RBC) [Entitic mass] 28.2 pg 27.0-32.0 [facility] Work Phone: Nucleated RBC/100 WBC (Bld) [Ratio] 0 % 0-5 [facility] Work Phone: MCHC Auto (RBC) [Mass/Vol]on 04-27-2022 MCHC (RBC) [Mass/Vol] 31.1 g/dL 32-36 [facility] Work Phone: No Panel Informationon 04-27 Estimated Creatinine Clearance Calc 50.62 ml/min [facility] Work Phone: Estimated GFR (MDRD) Amer 72 mL/min >60 [facility] Work Phone: Comment on above: GFR Calc Estimated GFR (MDRD) Non-Af Amer 59 mL/min >60 [facility] Work Phone: Comment on above: Non- GFR Calc Thyroid Stimulating Hormone (TSH) 0.75 uIU/mL 0.358-3.74 [facility] Work Phone: Platelets bldon 04-27-2022 Platelets (Bld) [#/Vol] 294 10*3/uL 150-450 [facility] Work Phone: Serum or plasma calcium alessandro urement (mass/volume)on 04-27-2022 Calcium [Mass/Vol] 9.1 mg/dL 8.5-10.1 [facility] Work Phone: Serum or plasma creatinine m easurement (mass/volume)on 04-27-2022 Creatinine [Mass/Vol] 1.04 mg/dL 0.55-1.02 [facility] Work Phone: Comment on above: The validity of the calculated GFR & GFRAA in patients over 70 years has not been determined. Clinical correlation is essential. Serum or plasma urea nitroge n measurement (mass/volume)on 04-27-2022 Urea nitrogen [Mass/Vol] 24 mg/dL 7-18 [facility] Work Phone: Thin prep Papanicolaou smear with manual screeningon 04-27-2022 Thin prep Papanicolaou smear with manual screening 5 5-15 [facility] Work Phone: Covid 19 Resultson SARS-CoV-2 (COVID-19) RNA CRISTHIAN+probe Ql (Unsp spec) NEGATIVE COVID-19 Test Coronaviruses are common world-wide and are the cause of many common colds. SARS-COV2 is a new coronavirus that began circulating worldwide in 2019 so we are calling it COVID-19. It has been estimated that four out of five patients with COVID-19 will recover at home without the need for medical attention. Symptoms of COVID-19 may include cough, fever, shortness of breath, loss of taste or smell and other flu-like symptoms including chills, sore muscles, sore throat, and headache. Severe illness is more common in older people and people with other health problems such as high blood pressure, obesity, and immune system problems. If the test is positive, you have COVID-19. You will be contacted by the ordering physicians office and instructed to remain on home isolation, in accordance with CDC guidelines. You may also be contacted by the [facility] to see if any of your close contacts may have been exposed to the virus and need to quarantine. If the test is negative, you likely do not have COVID-19 at this time, but you still may have a different illness that can spread to other people (like Influenza, or the Flu) and could still be at risk for getting COVID-19. We recommend that you stay away from other people to limit the spread of illness until your symptoms are improving and you are fever-free for 24 hours without the use of fever lowering medications such as acetaminophen or ibuprofen. No test is 100% accurate so if you are still concerned you may have COVID-19, talk to your doctor about the need to continue to stay away from others. Medicines Unless your provider told you not to use the following: Acetaminophen (Tylenol and others) is generally safe. Anti-inflammatory medications, such as Ibuprofen (Advil or Motrin) or Naproxen (Aleve) can also be used. Cpqh-bun-wbqzdte cough and cold medicines can be used according to the instructions on the package. Some vjse-lvk-cgastln medicines also contain acetaminophen. Make sure you are not taking more than your recommended dose. For those not hospitalized, there is no specific treatment available for this illness. Antibiotics do not treat Coronaviruses. Follow-Up Follow up with your doctor by scheduling a virtual visit or consider follow-up at one of our urgent care fever clinics. If you are having difficulty breathing, or are very weak and having difficulty standing, this is a medical emergency. Call 911 or have someone take you to the nearest emergency room immediately. If possible, wear a facemask. Additional guidance from the CDC for patients who tested POSITIVE for COVID-19 How to isolate: Isolate yourself in a specific room at home and limit your contact with others. Use a separate bathroom from other members of the household, when possible. Leave home only to get essential medical care. Do not go to work, school or public areas. Avoid using public transportation, ride-sharing, or taxis. Restrict contact with pets and other animals. If you must care for your pet or be around animals while you are sick, wash your hands before and after your interaction and wear a facemask. Make sure that shared spaces in the home have good airflow, such as by an air conditioner or an opened window, weather permitting. Personal Hygiene Procedures: Wear a face mask when in the same room as other people or pets. If a face mask interferes with your breathing, others should wear a mask when sharing space with you. Frequent hand-washing: wash your hands with soap and water for at least 20 seconds. If soap and water are not available, use alcohol-based hand sewage screen operator. Avoid touching your eyes, nose, and mouth with unwashed hands. Household Hygiene Procedures: Avoid sharing personal household items such as dishes, glassware, cups, eating utensils, towels or bedding with other people or pets in your home. After use, these items should be washed with soap and hot water. Disinfect all high-touch surfaces every day with antibacterial cleaning solutions such as Lysol wipes, bleach, cleansers, etc. High-touch surfaces include tabletops, doorknobs, bathroom fixtures, toilets, phones, keyboards, tablets and bedside tables. Immediately clean any surfaces that may have blood, poop or body fluids on them, using antibacterial cleaning solutions such as Lysol wipes, bleach, cleansers, etc. If clothing or bedding come into contact with blood, poop or body fluids, they should be washed immediately. Follow the directions on the laundry detergent and clothing labels but hot water is recommended when possible. Stopping home isolation precautions: If possible, consult your doctor before stopping home isolation precautions. According to the CDC, you can discontinue home isolation precautions when you have met both of these criteria: Your fever and respiratory symptoms have been gone for 24 raymon (more content not included)... Normal [facility] INFLUENZA A/B, COVID 2019 PC R,SYMPTOMATICon 04-26-2022 Lab Specimen Source Nasal, Nasopharyngeal Normal [facility] Comment on above: Performed By: #### C OINP #### [place] [address] INFLUENZA A, PCR Not detected Normal Not Detected [facility] Comment on above: Result Comment: Resp iratory virus testing is performed routinely by PCR for Influenza A/B and RSV. Not Detected results do not preclude Influenza A/B or RSV infections since the adequacy of sample collection or low viral burden may impact the clinical sensitivity of this test method. Performed By: #### C OINP #### [place] [address] INFLUENZA B, PCR Not detected Normal Not Detected [facility] Comment on above: Result Comment: Resp iratory virus testing is performed routinely by PCR for Influenza A/B and RSV. Not Detected results do not preclude Influenza A/B or RSV infections since the adequacy of sample collection or low viral burden may impact the clinical sensitivity of this test method. Performed By: #### C OINP #### [place] [address] SARS-CoV-2 (COVID-19) RNA CRISTHIAN+probe Ql (Unsp spec) Not detected Normal Not Detected [facility] Comment on above: Result Comment: . This test has received FDA Emergency Use Authorization (EUA) and has been verified by [facility]. This test is only authorized for the duration of time that circumstances exist to justify the authorization of the emergency use of in vitro diagnostic tests for the detection of SARS-CoV-2 virus and/or diagnosis of COVID-19 infection under section 564(b)(1) of the Act, 21 U.S.C. 360bbb-3(b)(1), unless the authorization is terminated or revoked sooner. [facility] is certified under CLIA-88 as qualified to perform high complexity testing. Testing is performed in the [facility] laboratory located at [address] [place] [address]. SARS-CoV-2/Flu/RSV Multiplex Test: Fact sheet for providers: https://www.fda.gov/media/317109/download Fact sheet for patients: https://www.fda.gov/media/107500/download Performed By: #### C OINP #### [place] [address] No Panel Informationon 04-26 Respiratory Panel (PCR) [facility] Work Phone: Provider Note - ED Care Mcconnell sitionon 04-26-2022 Provider Note - ED Care Transition ED Care Transition: Chart Review: RESULTS/VITAL SIGNS RESULTS: Recent Lab Results: I have reviewed these laboratory results: Troponin I, High Sensitivity Trending View [id number] 18:47:00 25-Apr-2022 18:02:00 Troponin I, High Sensitivity3 3 Complete Blood Count + Differential 25-Apr-2022 18:02:00 ResultValue White Blood Cell Count 8.9 Nucleated Erythrocyte Count 0.2 Red Blood Cell Count 4.38 HGB 12.5 HCT 37.8 MCV 86 MCHC 33.1 PLT 336 RDW-CV 14.7 H Neutrophil % 72.4 Lymphocyte % 15.1 Monocyte % 7.7 Eosinophil % 3.7 Basophil % 1.1 Neutrophil Count 6.50 Lymphocyte Count 1.30 Monocyte Count 0.70 Eosinophil Count 0.30 Basophil Count 0.10 Comprehensive Metabolic Panel 25-Apr-2022 18:02:00 ResultValue Glucose, Serum 102 H NA 132 L K 3.7 CL 93 L Bicarbonate, Serum 29 Anion Gap, Serum 14 BUN 26 H CREAT 2.00 H GFR Female 30 A Calcium, Serum 8.9 ALB 4.0 ALKP 120 H T Pro 7.1 T Bili 0.4 Alanine Aminotransferase, Serum 5 L Aspartate Transaminase, Serum 12 PT + INR, Plasma 25-Apr-2022 18:02:00 ResultValue Prothrombin Time, Plasma 11.6 International Normalized Ratio, Plasma 1.0 Activated Partial Thromboplastin Time 25-Apr-2022 18:02:00 ResultValue Activated Partial Thromboplastin Time 32 Brain Natriuretic Peptide 25-Apr-2022 18:02:00 ResultValue Brain Natriuretic Peptide 11 D-Dimer, VTE Exclusion 25-Apr-2022 18:02:00 ResultValue D-Dimer, VTE Exclusion 512 A Radiology Results: Impression: 1. Suboptimal contrast bolus without evidence of central pulmonary emboli. Evaluation of the segmental and subsegmental branches is severely limited by mixing artifact and distal emboli cannot be excluded. Otherwise no evidence of acute chest pathology. 2. Mild hepatosplenomegaly and diffuse hepatic steatosis. TH CT Angio Chest for PE [Apr 25 2022 9:28PM] Impression: No acute cardiopulmonary process. Xray Chest 1 View [Apr 25 2022 6:31PM] VITAL SIGNS: T PRBP SpO2O2(LPM) %FiO2 Method 25-Apr-2022 20:39:[id number] 95 supplemental O2 25-Apr-2022 19:33:00-657558/64 91 supplemental O2 25-Apr-2022 17:31:[id number]/80 89 room air, no respiratory support MEDICAL DECISION MAKING/ED COURSE MDM/ED COURSE: CT scan unremarkable for acute findings. She does have a history of COPD. I think this is probably what is going on. She has an oxygen requirement of 6 L currently. She does not wear oxygen at home. She would benefit from hospital admission. Unfortunately we have no beds here at this hospital. Patient request transfer to [place]. Accepting physician is Dr. Greenwood. CLINICAL IMPRESSION Diagnosis/Annotation: ED Dx Name:COPD exacerbation Code:J44.1 Disposition: transferred ATTESTATION CRITICAL CARE TIME Is this a critically ill patient: no Electronic Signatures: David Branham) (Signed 25-Apr-2022 22:39) Authored: Results/Vital Signs, MDM/ED Course, Clinical Impression, Attestation, Chart Review, Scores Last Updated: 25-Apr-2022 22:39 by David Branham) Normal [facility] APTTon 04-25-2022 aPTT Coag (d) [Time] 32 s Normal 26 - 39 [facility] Comment on above: Result Comment: THE APTT IS NO LONGER USED FOR MONITORING UNFRACTIONATED HEPARIN THERAPY. FOR MONITORING HEPARIN THERAPY, USE THE HEPARIN ASSAY. Performed By: #### A PTT #### [place] [id number] Activated Partial Thrombopla stin Timeon 04-25-2022 aPTT Coag (PPP) [Time] 32 s 26 - 39 [facility] Work Phone: Comment on above: THE APTT IS NO LONGE R USED FOR MONITORING UNFRACTIONATED HEPARIN THERAPY. FOR MONITORING HEPARIN THERAPY, USE THE HEPARIN ASSAY. BNPon 04-25-2022 Natriuretic peptide B (Bld) [Mass/Vol] 11 pg/mL Normal 0 - 99 [facility] Comment on above: Result Comment: . <1 00 pg/mL - Heart failure unlikely 100-299 pg/mL - Intermediate probability of acute heart . failure exacerbation. Correlate with clinical . context and patient history. >=300 pg/mL - Heart Failure likely. Correlate with clinical . context and patient history. BNP testing is performed using different testing methodology at [facility] than at other [facility]. Direct result comparisons should only be made within the same method. Performed By: #### B NP2 #### [place] [id number] CBC AND DIFFERENTIALon 04-25 Basophils (Bld) [#/Vol] 0.10 10*3/uL Normal 0.00 - 0.10 [facility] Comment on above: Performed By: #### C BCDF #### [address] [address] Basophils/100 WBC (Bld) 1.1 % Normal 0.0 - 2.0 [facility] Comment on above: Performed By: #### C BCDF #### [address] [address] Eosinophils (Bld) [#/Vol] 0.30 10*3/uL Normal 0.00 - 0.70 [facility] Comment on above: Performed By: #### C BCDF #### [address] [address] Eosinophils/100 WBC (Bld) 3.7 % Normal 0.0 - 6.0 [facility] Comment on above: Performed By: #### C BCDF #### [place] [id number] Erythrocyte distribution width (RBC) [Ratio] 14.7 % High 11.5 - 14.5 [facility] Comment on above: Performed By: #### C BCDF #### [address] [address] Hematocrit (Bld) [Volume fraction] 37.8 % Normal 36.0 - 46.0 [facility] Comment on above: Performed By: #### C BCDF #### [address] [address] Hemoglobin (Bld) [Mass/Vol] 12.5 g/dL Normal 12.0 - 16.0 [facility] Comment on above: Performed By: #### C BCDF #### [address] [address] Lymphocytes (Bld) [#/Vol] 1.30 10*3/uL Normal 1.20 - 4.80 [facility] Comment on above: Performed By: #### C BCDF #### [address] [address] Lymphocytes/100 WBC (Bld) 15.1 % Normal 13.0 - 44.0 [facility] Comment on above: Performed By: #### C BCDF #### [address] [address] MCHC (RBC) [Mass/Vol] 33.1 g/dL Normal 32.0 - 36.0 [facility] Comment on above: Performed By: #### C BCDF #### [address] [address] MCV (RBC) [Entitic vol] 86 fL Normal 80 - 100 [facility] Comment on above: Performed By: #### C BCDF #### [address] [address] Monocytes (Bld) [#/Vol] 0.70 10*3/uL Normal 0.10 - 1.00 [facility] Comment on above: Performed By: #### C BCDF #### [address] [address] Monocytes/100 WBC (Bld) 7.7 % Normal 2.0 - 10.0 [facility] Comment on above: Performed By: #### C BCDF #### [address] [address] Neutrophils (Bld) [#/Vol] 6.50 10*3/uL Normal 1.20 - 7.70 [facility] Comment on above: Result Comment: Perc ent differential counts (%) should be interpreted in the context of the absolute cell counts (cells/L). Performed By: #### C BCDF #### [address] [address] Neutrophils/100 WBC (Bld) 72.4 % Normal 40.0 - 80.0 [facility] Comment on above: Performed By: #### C BCDF #### [address] [address] NUCLEATED RBC 0.2 /100 WBC Normal [facility] Comment on above: Performed By: #### C BCDF #### [address] [address] Platelets (Bld) [#/Vol] 336 10*3/uL Normal 150 - 450 [facility] Comment on above: Performed By: #### C BCDF #### [address] [address] RBC 4.38 x10E12/L Normal 4.00 - 5.20 [facility] Comment on above: Performed By: #### C BCDF #### [address] [address] WBC (Bld) [#/Vol] 8.9 10*3/uL Normal 4.4 - 11.3 [facility] Comment on above: Performed By: #### C BCDF #### [address] [address] CHEST 1 VIEWon 04-25-2022 CHEST 1 VIEW Patient Name: VJ MYERS STUDY: Chest, single portable AP view. INDICATION: Dyspnea . COMPARISON: 07/12/2021 ACCESSION NUMBER(S): [id number] ORDERING CLINICIAN: JERROD HALE FINDINGS: The cardiac silhouette size is within normal limits. There is no focal consolidation, edema or pneumothorax. No sizeable pleural effusion. No acute osseous abnormality. IMPRESSION: No acute cardiopulmonary process. Electronically signed by: ISHA PATINO MD Normal [facility] COMPREHENSIVE PANELon 2021 Albumin [Mass/Vol] 4.0 g/dL Normal 3.4 - 5.0 [facility] Comment on above: Performed By: #### C MP #### [place] [address] ALP [Catalytic activity/Vol] 120 U/L High 33 - 110 [facility] Comment on above: Performed By: #### C MP #### [place] [id number] ALT [Catalytic activity/Vol] 5 U/L Low 7 - 45 [facility] Comment on above: Result Comment: Karla ents treated with Sulfasalazine may generate falsely decreased results for ALT. Performed By: #### C MP #### [address] [address] Anion gap [Moles/Vol] 14 mmol/L Normal 10 - 20 [facility] Comment on above: Performed By: #### C MP #### [place] [id number] AST [Catalytic activity/Vol] 12 U/L Normal 9 - 39 [facility] Comment on above: Performed By: #### C MP #### [address] [address] Bilirubin [Mass/Vol] 0.4 mg/dL Normal 0.0 - 1.2 [facility] Comment on above: Performed By: #### C MP #### [address] [address] Calcium [Mass/Vol] 8.9 mg/dL Normal 8.6 - 10.3 [facility] Comment on above: Performed By: #### C MP #### [address] [address] Chloride [Moles/Vol] 93 mmol/L Low 98 - 107 [facility] Comment on above: Performed By: #### C MP #### [address] [address] Creatinine [Mass/Vol] 2.00 mg/dL High 0.50 - 1.05 [facility] Comment on above: Performed By: #### C MP #### [address] [address] GFR/1.73 sq M.predicted among non-blacks MDRD (S/P/Bld) [Vol rate/Area] 30 mL/min/{1.73_m2} Abnormal >90 [facility] Comment on above: Result Comment: CALC ULATIONS OF ESTIMATED GFR ARE PERFORMED USING THE 2020 CKD-EPI STUDY REFIT EQUATION WITHOUT THE RACE VARIABLE FOR THE IDMS-TRACEABLE CREATININE METHODS. https://jasn.asnjournals.org/content/early//ASN.259946 2884 Performed By: #### C MP #### [address] [address] Glucose [Mass/Vol] 102 mg/dL High 74 - 99 [facility] Comment on above: Performed By: #### C MP #### [address] [address] HCO3 (Bld) [Moles/Vol] 29 mmol/L Normal 21 - 32 [facility] Comment on above: Performed By: #### C MP #### [address] [address] Potassium [Moles/Vol] 3.7 mmol/L Normal 3.5 - 5.3 [facility] Comment on above: Performed By: #### C MP #### [address] [address] Protein [Mass/Vol] 7.1 g/dL Normal 6.4 - 8.2 [facility] Comment on above: Performed By: #### C MP #### [address] [address] Sodium [Moles/Vol] 132 mmol/L Low 136 - 145 [facility] Comment on above: Performed By: #### C MP #### [place] [address] [place] [address] Urea nitrogen [Mass/Vol] 26 mg/dL High 6 - 23 [facility] Comment on above: Performed By: #### C #### [place] [address] [place] [address] CT ANGIO CHEST FOR PEon 06-0 CT ANGIO CHEST FOR PE Patient Name: VJ MYERS STUDY: CT ANGIO CHEST FOR PE; 04/25/2022 8:36 pm INDICATION: dyspnea . COMPARISON: ACCESSION NUMBER(S): [id number] ORDERING CLINICIAN: JERROD HALE TECHNIQUE: Helical data acquisition of the chest was obtained contrast volume: 45 mL IV contrast Omnipaque 350. Axial contiguous images were reformatted in coronal and sagittal planes. Axial and coronal MIP images were created and reviewed. FINDINGS: POTENTIAL LIMITATIONS OF THE STUDY: Motion and mixing artifact which limits evaluation of the distal branch vessels. HEART AND VESSELS: No discrete filling defects within the main pulmonary artery or its branches. Main pulmonary artery and its branches are normal in caliber. The thoracic aorta is of normal course and caliber. No coronary artery calcifications are seen.The study is not optimized for evaluation of coronary arteries. The cardiac chambers are not enlarged. No evidence of pericardial effusion. MEDIASTINUM AND VICTOR M, LOWER NECK AND AXILLA: The visualized thyroid gland is within normal limits. No evidence of thoracic lymphadenopathy by CT criteria. Esophagus appears within normal limits as seen. LUNGS AND AIRWAYS: The trachea and central airways are patent. No endobronchial lesion. Mild bibasilar dependent atelectasis. Lungs are otherwise clear. There is no pleural effusion or pneumothorax. UPPER ABDOMEN: There is hepatomegaly and hepatic steatosis. The visualized spleen is borderline in size measuring 12.9 cm craniocaudally. There is a tiny focus of gas partially included in the field of view in the gallbladder fossa, image 142 of 142, which appears to be along the superior aspect of the right transverse colon and likely reflects a diverticula. There is left ventral abdominal scarring. CHEST WALL AND OSSEOUS STRUCTURES: There are no suspicious osseous lesions. The visualized osseous structures are intact. IMPRESSION: 1. Suboptimal contrast bolus without evidence of central pulmonary emboli. Evaluation of the segmental and subsegmental branches is severely limited by mixing artifact and distal emboli cannot be excluded. Otherwise no evidence of acute chest pathology. 2. Mild hepatosplenomegaly and diffuse hepatic steatosis. Electronically signed by: NEGAR MARSH, DO Normal [facility] Complete Blood Count + Diffe merna 04-25-2022 Basophils/100 WBC (Bld) 1.1 % 0.0 - 2.0 [facility] Work Phone: Erythrocyte distribution width (RBC) [Ratio] 14.7 % above high threshold See Below [facility] Work Phone: Comment on above: Reference Range: 11. 5 - 14.5 Hematocrit (Bld) [Volume fraction] 37.8 % See Below -[facility] Work Phone: Comment on above: Reference Range: 36. 0 - 46.0 Hemoglobin (Bld) [Mass/Vol] 12.5 g/dL See Below [facility] Work [facility]: Comment on above: Reference Range: 12. 0 - 16.0 Lymphocytes/100 WBC (Bld) 15.1 % See Below [facility] Work Phone: Comment on above: Reference Range: 13. 0 - 44.0 MCHC (RBC) [Mass/Vol] 33.1 g/dL See Below [facility] Work Phone: Comment on above: Reference Range: 32. 0 - 36.0 MCV (RBC) [Entitic vol] 86 fL 80 - 100 [facility] Work Phone: Monocytes/100 WBC (Bld) 7.7 % 2.0 - 10.0 [facility] Work Phone: Neutrophils/100 WBC (Bld) 72.4 % See Below [facility] Work Phone: Comment on above: Reference Range: 40. 0 - 80.0 Platelets (Bld) [#/Vol] 336 10*3/uL 150 - 450 [facility] Work Phone: RBC (Bld) [#/Vol] 4.38 {x10E12/L} See Below -[facility] Work Phone: Comment on above: Reference Range: 4.0 0 - 5.20 WBC (Bld) [#/Vol] 8.9 10*3/uL 4.4 - 11.3 -[facility] Work Phone: Complete Blood Count + Differential 0.10 {x10E9/L} See Below [facility] Work Phone: Comment on above: Reference Range: 0.0 0 - 0.10 Complete Blood Count + Differential 0.30 {x10E9/L} See Below [facility] Work Phone: Comment on above: Reference Range: 0.0 0 - 0.70 Complete Blood Count + Differential 0.70 {x10E9/L} See Below [facility] Work Phone: Comment on above: Reference Range: 0.1 0 - 1.00 Complete Blood Count + Differential 1.30 {x10E9/L} See Below [facility] Work Phone: Comment on above: Reference Range: 1.2 0 - 4.80 Complete Blood Count + Differential 6.50 {x10E9/L} See Below [facility] Work Phone: Comment on above: Reference Range: 1.2 0 - 7.70 Percent differential counts (%) should be interpreted in the context of the absolute cell counts (cells/L). Complete Blood Count + Differential 3.7 % 0.0 - 6.0 -[facility] Work Phone: Complete Blood Count + Differential 0.2 {/100_WBC} [facility] Work Phone: D-DIMER, VTE EXCLUSIONon D-DIMER, VTE EXCLUSION 512 ng/mL FEU Abnormal < or = 500 [facility] Comment on above: Result Comment: The VTE Exclusion D-Dimer assay is reported in ng/mL Fibrinogen Equivalent Units (FEU). Per manufacturers instructions for use, a value of less than 500 ng/mL (FEU) may help to exclude DVT or PE in outpatients when the assay is used with a clinical pretest probability assessment. (AEMR must utilize and document eCalc Wells Score Deep Vein Thrombosis Risk for DVT exclusion only; Emergency Department should utilize Guidelines for Emergency Department Use of the VTE Exclusion D-Dimer and Clinical Pretest probability assessment model for DVT or PE exclusion.) Performed By: #### D IMEX #### [place] [address] INFLUENZA A/B, COVID 2019 PC R,SYMPTOMATICon 04-25-2022 INFLUENZA A/B, COVID 2019 PCR,SYMPTOMATIC Not detected See Below [facility] Work Phone: Comment on above: Reference Range: Not Detected.This test has received [facility] Emergency Use Authorization (EUA) and has been verified by [facility]. This test is only authorized for the duration of time that circumstances exist to justify the authorization of the emergency use of in vitro diagnostic tests for the detection of SARS-CoV-2 virus and/or diagnosis of COVID-19 infection under section 564(b)(1) of the Act, 21 U.S.C. 360bbb-3(b)(1), unless the authorization is terminated or revoked sooner. [facility] is certified under CLIA-88 as qualified to perform high complexity testing. Testing is performed in the [facility] laboratory located at [address] [place] [address].SARS-CoV-2/Flu/RSV Multiplex Test: Fact sheet for providers: https://www.fda.gov/media/200669/downloadFact sheet for patients: https://www.fda.gov/media/495759/download Reference Range: Not Detected Respiratory virus testing is performed routinely by PCR for Influenza A/B and RSV. Not Detected results do not preclude Influenza A/B or RSV infections since the adequacy of sample collection or low viral burden may impact the clinical sensitivity of this test method. SOURCE: Nasal, Nasop haryngealReference Range: Not Detected Respiratory virus testing is performed routinely by PCR for Influenza A/B and RSV. Not Detected results do not preclude Influenza A/B or RSV infections since the adequacy of sample collection or low viral burden may impact the clinical sensitivity of this test method. Laboratory - Chemistry and C hemistry - challengeon 04-25-2022 Albumin BCP dye [Mass/Vol] 4.0 g/dL 3.4 - 5.0 [facility] Work Phone: ALP [Catalytic activity/Vol] 120 U/L above high threshold 33 - 110 -[facility] Work Phone: ALT With P-5'-P [Catalytic activity/Vol] 5 U/L below low threshold 7 - 45 -[facility] Work Phone: Comment on above: Patients treated wit h Sulfasalazine may generate falsely decreased results for ALT. Anion gap [Moles/Vol] 14 mmol/L 10 - 20 - [facility] Work Phone: AST With P-5'-P [Catalytic activity/Vol] 12 U/L 9 - 39 -[facility] Work Phone: Bilirubin [Mass/Vol] 0.4 mg/dL 0.0 - 1.2 [facility] Work Phone: Calcium [Mass/Vol] 8.9 mg/dL 8.6 - 10.3 [facility] Work Phone: Chloride [Moles/Vol] 93 mmol/L below low threshold 98 - 107 -[facility] Work Phone: CO2 [Moles/Vol] 29 mmol/L 21 - 32 -[facility] Work Phone: Creatinine [Mass/Vol] 2.00 mg/dL above high threshold See Below -[facility] Work Phone: Comment on above: Reference Range: 0.5 0 - 1.05 Glucose [Mass/Vol] 102 mg/dL above high threshold 74 - 99 -[facility] Work Phone: Potassium [Moles/Vol] 3.7 mmol/L 3.5 - 5.3 MP- [facility] Work Phone: Protein [Mass/Vol] 7.1 g/dL 6.4 - 8.2 [facility] Work Phone: Sodium [Moles/Vol] 132 mmol/L below low threshold 136 - 145 -[facility] Work Phone: Urea nitrogen [Mass/Vol] 26 mg/dL above high threshold 6 - 23 [facility] Work Phone: Laboratory - Coagulationon 0 04-25-2022 INR Coag (PPP) [Relative time] 1.0 {INR} 0.9 - 1.1 [facility] Work Phone: PT Coag (PPP) [Time] 11.6 s 9.8 - 13.4 [facility] Work Phone: No Panel Informationon 04-25 11 pg/mL 0 - 99 [facility] Work Phone: Comment on above: . <100 pg/mL - Heart failure [id number] pg/mL - Intermediate probability of acute heart. failure exacerbation. Correlate with clinical. context and patient history. >=300 pg/mL - Heart Failure likely. Correlate with clinical. context and patient history.BNP testing is performed using different testing methodology at [facility] than at other [facility]. Direct result comparisons should only be made within the same method. 30 {mL/min/1.73m2} Abnormal >90 [facility] Work Phone: Comment on above: CALCULATIONS OF BREE MATED GFR ARE PERFORMED USING THE 2020 CKD-EPI STUDY REFIT EQUATION WITHOUT THE RACE VARIABLE FOR THE IDMS-TRACEABLE CREATININE METHODS.https://jasn.asnjournals.org/content/early/ N.3282781732 512 {ng/mL_FEU} Abnormal < or = 500 [facility] Work Phone: Comment on above: The VTE Exclusion D- Dimer assay is reported in ng/mL Fibrinogen Equivalent Units (FEU). Per manufacturers instructions for use, a value of less than 500 ng/mL (FEU) may help to exclude DVT or PE in outpatients when the assay is used with a clinical pretest probability assessment. (AEMR must utilize and document eCalc Wells Score Deep Vein Thrombosis Risk for DVT exclusion only; Emergency Department should utilize Guidelines for Emergency Department Use of the VTE Exclusion D-Dimer and Clinical Pretest probability assessment model for DVT or PE exclusion.) https://MUSEXPRDWE B01 :8080/musescripts/musew eb.dll?RetrieveTestByDa teTime?NrdchxvEI=697482 752&Date=04-25-2022&Chad e=[email or web address]&Belen tType=ECG&Site=14&Outpu tType=PDF&Ext=PDF [facility] Work Phone: Please see physicia n note for formal interpretation confirmed by Scribe [facility] Work Phone: Normal [facility] Work Phone: [phone] [facility] Work Phone: [phone] [facility] Work Phone: 201 1 [facility] Work Phone: [phone] 1 [facility] Work Phone: [phone] [facility] Work Phone: 17 1 [facility] Work Phone: 25 1 [facility] Work Phone: 65 1 [facility] Work Phone: 48 1 [facility] Work Phone: [phone] 1 [facility] Work Phone: [phone] 1 [facility] Work Phone: 78 1 [facility] сергей Work Phone: [phone] [facility] с[facility]гей Work Phone: [phone] [facility] Work Phone: PT/INRon 04-25-2022 PT Coag (PPP) [Time] 11.6 s Normal 9.8 - 13.4 [facility] Comment on above: Performed By: #### P TINR ####[address] [address] PT, INR 1.0 Normal 0.9 - 1.1 [facility] Comment on above: Performed By: #### P TINR ####[address] [address] Provider Note - ED v3on 06-0 Provider Note - ED v3 Provider Note: Chart Review: ED NOTES ED NOTES: Source of Information: Patient. EMR was reviewed for previous records. HPI: Shortness of breath, leg swelling. This 51-year-old white female with history of throat cancer presents to the ED with complaint of increasing shortness of breath for the past week and weight gain as well as bilateral lower extremity swelling. She states that she does take a losartan with hydrochlorothiazide and that does not seem to be helping. She denies any previous history of congestive heart failure. She does admit to history of throat cancer that is been in remission for past 10 years she admits to surgical resection of the mass with reconstruction of her throat and tracheostomy. She states that she also had radiation and chemo for treatment of her throat cancer. Patient states that any type of activity makes her shortness of breath or rest helps to some extent. PMH: Hypertension, throat cancer, GERD, hypothyroidism, hypertension, arthritis, GERD PSH: Resection of throat cancer with reconstructive surgery of throat. Social Hx: The patient denies any use of tobacco, alcohol or illicit drugs. She states that she quit smoking 10 years ago Fam: MEDS: Noted in the EMR. ALLERGIES: Bee contrast, morphine PHYSICAL EXAM: General: Patient alert, awake, oriented X3, appears be no obvious distress, nontoxic, cooperative Skin: Warm. Dry. Intact. No rash. Eyes: PEARTLA, EOMIs intact, sclera white, conjunctiva clear HEENT: Atraumatic. Normo-cephalic. Oral nasal mucosa pink and moist. Neck: Supple without meningismus, no lymphadenopathy. Has a tracheostomy and anterior neck. CV: Regular rate and rhythm without murmurs, heaves, lifts or thrills. Respiratory: Nonlabored breathing. There are no retractions or tachypnea. Lungs diffuse end-expiratory wheezing GI: Soft, nontender, without gross distention, bowel sounds present in all 4 quadrants. There is no pulsatile masses. There is no CVA tenderness. No rebound, rigidity or guarding. MUSC: There is no joint swelling or bony tenderness on exam. Neuro: Cranial nerves II - XII grossly intact. No focal neurologic deficits are noted on exam. Lower extremities: There is +2/4 peripheral edema bilaterally, negative Homans sign. No palpable cords. Distal pulses are present in both lower extremities. Psych: Maintains eye contact. Cooperative. ED course: EKG was interpreted by myself at 1721 reveals sinus tachycardia 107 bpm with no other acute ST or T wave changes. The PA interval is 136 ms. The QRS duration 78 ms. The QTC is 459 ms axis is 65 degrees per This chart was dictated with the use of [employer] software within the framework of the current electronic medical records software. Attempts were made to edit in real time, given time constraints there is the potential for inaccuracies in my dictation. Jerrod Hale, DO HISTORY OF PRESENTING ILLNESS VJ is a 51 year old Female and was seen by me at 25-Apr-2022 17:37 for a chief complaint of shortness of breath (c/o SOB and dizziness with ambulation for 1 week, BLE leg edema, 2 weeks. Low back pain that started today.)(1). Triage Information: Most recent Vital Sign Value Date Temp (F): 98.4 04-25-2022 17:31 Temp (C): 36.8 06-06-2022 17:31 Heart Rate (beats/min): 96 04-25-2022 17:31 Respirations (breaths/min): 20 04-25-2022 17:31 SpO2 (%): 89 04-25-2022 17:31 BP Systolic (mm Hg): 104 04-25-2022 17:31 BP Diastolic (mm Hg): 80 04-25-2022 17:31 PAST MEDICAL HISTORY CURRENT OR FORMER SUBSTANCE USE: Tobacco/Nicotine Use: former smoker Alcohol Use: denies Drug Use: denies,ALLERGIES/INTOLE RANCES: Allergy Allergen: constrast media Type: Contrast Reaction: Unknown Allergen: morphine Type: Drug Reaction: Other HEALTH HISTORY: No documented data. OUTPATIENT MEDICATIONS: Home Medications Review Status for Reconciliation: Complete Med Status: Patient Currently Takes Medications Drug Name: liothyronine 5 mcg oral tablet Instructions: 1 tab(s) orally once a day Drug Name: omeprazole 40 mg oral delayed release capsule Instructions: 1 cap(s) orally once a day Drug Name: sertraline 50 mg oral tablet Instructions: 1 tab(s) orally once a day Drug Name: amLODIPine 10 mg oral tablet Instructions: 1 tab(s) orally once a day Drug Name: Hyzaar 10 (more content not included)... Normal [facility] Radiologyon 04-25-2022 XR Chest Single view Normal [facility] Work Phone: Risk Screen - Adult Emergenc yon 04-25-2022 Risk Screen - Adult Emergency Preferred Language: Preferred Language: Preferred Language for Discussing Health Care (patient/designee)Gisselle Advanced Directives: Advance Directive/DNRyes Advance Directive typeLiving Will Family Violence Adult: Abuse Screen: Are you or have you been threatened or abused physically, emotionally, or sexually by anyoneno Learning Assessment (Patient): Learning Assessment (Patient): Patient is Able to be Assessed for Learningyes Factors Influencing Readiness to Learnacuteness of illness Factors that Impact Ability to Learnnone Devices/Methods Used to Communicatenone Learning Preferencesaudio Cultural Considerationsnone Developmental Considerationsnone Yarsani Considerationsnone Learning Assessment (Other Learner): Learning Assessment (Other Learner): Other learner availableno Pressure Injury/TB/Substance: Pressure Injury: Do you have a coughno Smoking Statusformer smoker Alcohol Usedenies Drug Usedenies Admission Risk Screen: Significant IndicatorsComplete CAGE: CAGE: Is this an [place] patient [place] [place]): no Electronic Signatures: Leeann Hale (RN) (Signed 25-Apr-2022 17:38) Authored: Preferred Language, Advanced Directives, Family Violence Adult, Learning Assessment (Patient), Learning Assessment (Other Learner), Pressure Injury/TB/Substance, Pressure Injury, CAGE Last Updated: 25-Apr-2022 17:38 by Leeann Hale (RN) Normal [facility] TH CT Angio Chest For PEon 0 04-25-2022 CT Angio Chest For PE Normal [facility] Work Phone: TROPONIN I, HIGH SENSITIVITY on 04-25-2022 TROPONIN I, HIGH SENSITIVITY 3 ng/L Normal 0 - 13 [facility] Comment on above: Result Comment: . Less than 99th percentile of normal range cutoff- Female and children under 18 years old <14 ng/L; Male <21 ng/L: Negative Repeat testing should be performed if clinically indicated. . Female and children under 18 years old 14-50 ng/L; Male 21-50 ng/L: Consistent with possible cardiac damage and possible increased clinical risk. Serial measurements may help to assess extent of myocardial damage. . >50 ng/L: Consistent with cardiac damage, increased clinical risk and myocardial infarction. Serial measurements may help assess extent of myocardial damage. . NOTE: Children less than 1 year old may have higher baseline troponin levels and results should be interpreted in conjunction with the overall clinical context. . NOTE: Troponin I testing is performed using a different testing methodology at [facility] than at other [facility]. Direct result comparisons should only be made within the same method. Performed By: #### T [facility] #### [id number] [place] [address] TROPONIN I, HIGH SENSITIVITY 3 ng/L Normal 0 - 13 [facility] Comment on above: Result Comment: . Less than 99th percentile of normal range cutoff- Female and children under 18 years old <14 ng/L; Male <21 ng/L: Negative Repeat testing should be performed if clinically indicated. . Female and children under 18 years old 14-50 ng/L; Male 21-50 ng/L: Consistent with possible cardiac damage and possible increased clinical risk. Serial measurements may help to assess extent of myocardial damage. . >50 ng/L: Consistent with cardiac damage, increased clinical risk and myocardial infarction. Serial measurements may help assess extent of myocardial damage. . NOTE: Children less than 1 year old may have higher baseline troponin levels and results should be interpreted in conjunction with the overall clinical context. . NOTE: Troponin I testing is performed using a different testing methodology at [facility] than [facility]. Direct result comparisons should only be made within the same method. Performed By: #### T [facility] #### [id number] [place] [address] Tropinin I.cardiac panel High sensitivity method 3 ng/L 0 - 13 [facility] Work Phone: Comment on above: .Less than 99th perc entile of normal range cutoff-Female and children under 18 years old <14 ng/L; Male <21 ng/L: NegativeRepeat testing should be performed if clinically indicated. .Female and children under 18 years old 14-50 ng/L; Male 21-50 ng/L:Consistent with possible cardiac damage and possible increased clinical risk. Serial measurements may help to assess extent of myocardial damage. .>50 ng/L: Consistent with cardiac damage, increased clinical risk andmyocardial infarction. Serial measurements may help assess extent of myocardial damage. . NOTE: Children less than 1 year old may have higher baseline troponin levels and results should be interpreted in conjunction with the overall clinical context. .NOTE: Troponin I testing is performed using a different testing methodology at [facility] than at other [facility]. Direct result comparisons should only be made within the same method. Tropinin I.cardiac panel High sensitivity method 3 ng/L 0 - 13 [facility]: Comment on above: .Less than 99th perc entile of normal range cutoff-Female and children under 18 years old <14 ng/L; Male <21 ng/L: NegativeRepeat testing should be performed if clinically indicated. .Female and children under 18 years old 14-50 ng/L; Male 21-50 ng/L:Consistent with possible cardiac damage and possible increased clinical risk. Serial measurements may help to assess extent of myocardial damage. .>50 ng/L: Consistent with cardiac damage, increased clinical risk andmyocardial infarction. Serial measurements may help assess extent of myocardial damage. . NOTE: Children less than 1 year old may have higher baseline troponin levels and results should be interpreted in conjunction with the overall clinical context. .NOTE: Troponin I testing is performed using a different testing methodology at [facility] than [facility] other [facility]. Direct result comparisons should only be made within the same method. Triage - EDon 04-25-2022 Triage - ED Quick Triage: Are You no Are You Currently Breastfeedingno Chart Review: ARRIVAL INFORMATION Mode of Arrival: private vehicle CHIEF COMPLAINT VJ MYERS is a Female patient with a chief complaint of shortness of breath (c/o SOB and dizziness with ambulation for 1 week, BLE leg edema, 2 weeks. Low back pain that started today.). Triage Date/Time: 25-Apr-2022 17:31 CHI: 2 Pain Rating (0-10): 9 = Severe Pain location: lower back Vital Signs: Temperature: 98.4F ( 36.8C) Blood Pressure: 104/80 Mean: Heart Rate: 96 Respiratory Rate: 20 Pulse Oximetry: 89% on room air, no respiratory support. Height: 5 feet 3.00 inches. 160.0 CM Weight: 253.5 pounds. Calculated 115.0 kg. (stated) Calculated BMI (kg/m2): 44.921 Calculated BSA (m2) 2.26 Tima Coma Scale: Best Eye Response: (E4) spontaneous Best Motor Response: (M6) obeys commands Best Verbal Response: (V5) oriented Tima Score: 15 CHIEF ESTIMATOR History: hysterectomy Patient has homicidal thoughts: no Symptoms Are POSITIVE For: congestion and dyspnea. Symptoms Are Negative For: body aches, chest pain, chills, cough, diaphoresis, fever, headache and malaise. Risk Screens Suicide Risk Screen In the Past Month: Have you wished you were or wished you could go to sleep and not wake up no In the Past Month: Have you had any actual thoughts of killing yourself no In Your Lifetime: Have you ever done anything, started to do anything, or prepared to do anything to end your life no Angeles Fall Scale Screening Has the patient fallen before (or is the patient in the ED as a result of a fall) has not had a fall Does the patient have an impaired gait does not have impaired gait Is the patient cognitively impaired not cognitively impaired Interventions: Angeles Fall Interventions: LOW INTERVENTIONS: *patient oriented to surroundings and call system, * patient/family falls education completed and documented, *patients fall status communicated during bedside handoff, *whiteboard updated, *mode of toileting discussed with patient, *bed in low position with brakes locked, *call light in reach, * non-skid footwear TRAVEL HISTORY Travel History Coronavirus Screening: no exposure or symptoms Travel Exposure History: NO travel to International locations in the past 30 days PAIN Pain Scale Used: ELIZABETH Pain Rating (0-10): 9 = Severe Past Medical History: Past Medical History Reviewedyes Electronic Signatures: Leeann Hale (DANNI) (Signed 25-Apr-2022 17:37) Entered: Risk Screens, Pain, Travel History, Chart Review, Scores, Past Medical History Authored: Quick Triage, Risk Screens, Pain, Travel History, Chart Review, Scores, Past Medical History Last Updated: 25-Apr-2022 17:37 by Leeann Hale (DANNI) [facility] Established Visit (Pain Medi cine)on 04-07-2022 Established Visit (Pain Medicine) Diagnoses/Problems Chronic pain disorder (338.4) (G89.4) Arthropathy of right shoulder (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 She is undergoing evaluation/work-up/nelson rances for the right shoulder surgery with Dr. Le. She has some upcoming appointments to hopefully get things going and get herself some relief. She is hoping to have surgery this summer. We will obtain updated UDS today for compliance purposes. Narcan was offered and declined. OARRS was reviewed and is appropriate. She is aware she can only get this from our services at this point. Should she require anything else from anybody else she needs to call and clear this with us. She denies any illicit drug use. She is going to follow-up in a month. She will call the clinic sooner if necessary. Chief Complaint Patient complains of right arm pain that radiates from her shoulder to her wrist. Patient states she's supposed to have surgery with Dr. Le however her family doctor wants her to see a heart doctor first. Then she needs a consult with anesthesia. They are hoping for surgery early this summer. Patient states the original injury happened when her dog pulled her and dragged her through the back yard. Patient rates her pain a 9/10 at this time. Patient states Dr. Le gave her a small prescription of hydrocodone acetaminophen and it did help a little. Patient is out and Dr. Le told her to discuss further pain medication with this office. Patient denied smoking. Depression screen completed, negative. BMI 45.17, education handout provided to patient. Adult Risk Screening Living Will. Living Will: Living will on file. Healthcare POA: Health care proxy on file. Declaration of Mental Health Treatment: No mental health treatment on file. Domestic Violence Screen: Does not feel threatened or abused physically, emotionally or sexually. Do you feel UNSAFE? The patient feels safe in the home. Depression/Suicide Screening: During the past 2 weeks, the patient has not felt down, depressed or hopeless. During the past 2 weeks, the patient has not felt little interest or pleasure in doing things. She does not have a risk of suicide. She has not had thoughts of harming others. Reference Documentation See scanned note Review of Systems. History of Present Illness On a scale of 0 to 10, the patient rates the pain at 9. Pain Location: Right shoulder pain. Pain Quality: Sharp and Throbbing. Pain Radiation: Radiates down her right arm to her wrist. Sensory/ Motor: Numbness, Pins and Round O, Weakness and Numbness and tingling in her fingers. Timing/Duration: Constant and > 12 weeks duration. Patient is a 51-year-old female. She has a past medical history significant for arthropathy of the right shoulder and right shoulder rotator cuff tear. She saw Dr. Le. He did discuss surgery with her but he wanted her to have clearance with anesthesia. She is working on this. Her primary care also wanted her to have cardiac clearance. She is working on this. She is an appointment in April. Dr. Le did give her a prescription for [place] that she states did somewhat help. It was not perfect but it was better than nothing. She has right shoulder pain with right arm pain that she rates a 9/10. This affects her ability to do things. It affects her ability to come to. It affects her quality of life and activity living. Patient cries because the pain can get so bad sometimes. Patient has difficulty sleeping because of the pain. This significantly interferes with her quality of life and activities of daily living. Review of Systems 13 systems all normal except noted in HP. 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) Brain lesion (348.89) (G93.9) Cervical radiculitis (723.4) (M54.12) Depression (311) (F32.A) GERD (gastroesophageal reflux disease) (530.81) (K21.9) High blood pressure (401.9) (I10) History of high cholesterol (V12.29) (Z86.39) Insomnia (780.52) (G47.00) Lumbosacral radiculopathy (724.4) (M54.17) Lumbosacral spondylosis (721.3) (M47.817) Mastoiditis of right side (383.9) (H70.91) Multiple sclerosis (340) (G35) Neurogenic claudication due to lumbar spinal stenosis (724.03) (M48.062) Right rotator cuff tear (840.4) (M75.101) Sacroiliitis (720.2) (M46.1) Thyroid disease (246.9) (E07.9) Past Medical History History of kidney disease (V13.09) (Z87.448) stage 3 History of throat cancer (V10.02) (Z85.819 (more content not included)... Normal [facility] - Chemistry and C hemistry - challengeon 04-07-2022 Creatinine (Body fld) [Mass/Vol] 20.1 mg/dL [facility] Work Phone: Comment on above: A urine creatinine r esult >= 20 mg/dL is considered valid without suspicion of dilution. Samples with results below this range will automatically reflex to specific gravity testing to verify specimen integrity. Laboratory - Drug toxicology on 04-07-2022 1-Hydroxymidazolam Confirm (U) [Mass/Vol] <25 Cutoff <25 [facility] Work Phone: 8-Zithrxtfoe-2,5-Dime thyl-3,3-Diphenylpyrr olidine (EDDP) Confirm (U) [Mass/Vol] <25 Cutoff <25 [facility] Work Phone: Comment on above: The performance sheela acteristics of the Methadone Confirmation, Urine has been validated by the individual laboratory site where testing is performed. It has not been cleared or approved by the FDA. However the FDA has determined that such clearance or approval is not necessary. Our Laboratory is certified under the Clinical Laboratory Improvement Amendments of 1988 (CLIA) as qualified to perform high complexity clinical laboratory testing. 6-Monoacetylmorphine (6-DANIEL) Confirm (U) [Mass/Vol] <25 Cutoff <25 [facility] Work Phone: 7-Aminoclonazepam Confirm (U) [Mass/Vol] <25 Cutoff <25 [facility] Work Phone: Alpha hydroxyalprazolam Confirm (U) [Mass/Vol] <25 Cutoff <25 [facility] Work Phone: ALPRAZolam Confirm (U) [Mass/Vol] <25 Cutoff <25 [facility]: Amphetamines Screen Ql (U) Negative NEGATIVE [facility] Work Phone: Comment on above: CUTOFF LEVEL: 500 NG /ML Cross-reactivity has been reported with high concentrations of the following drugs: buproprion, chloroquine, chlorpromazine, ephedrine, mephentermine, fenfluramine, phentermine, phenylpropanolamine, pseudoephedrine, and propranolol. Barbiturates Screen Ql (U) Negative NEGATIVE [facility] Work Phone: Comment on above: CUTOFF LEVEL: 200 NG /ML Benzoylecgonine Screen Ql (U) Negative NEGATIVE [facility] Work Phone: Comment on above: CUTOFF LEVEL: 150 NG /ML Cannabinoids Screen Ql (U) Negative NEGATIVE [facility] Work Phone: Comment on above: CUTOFF LEVEL: 50 NG/ ML chlordiazePOXIDE Confirm (U) [Mass/Vol] <25 Cutoff <25 [facility] Work Phone: clonazePAM Confirm (U) [Mass/Vol] <25 Cutoff <25 [facility] Work Phone: Codeine Confirm (U) [Mass/Vol] <50 Cutoff <50 [facility] Work Phone: diazePAM Confirm (U) [Mass/Vol] <25 Cutoff <25 [facility] Work Phone: fentaNYL Confirm (U) [Mass/Vol] <2.5 Cutoff<2.5 [facility] Work Phone: HYDROcodone Confirm (U) [Mass/Vol] <25 Cutoff <25 [facility] Work Phone: HYDROmorphone Confirm (U) [Mass/Vol] <25 Cutoff <25 [facility] Work Phone: LORazepam Confirm (U) [Mass/Vol] <25 Cutoff <25 [facility] Work Phone: Methadone Confirm (U) [Mass/Vol] <25 Cutoff <25 [facility] Work Phone: Midazolam Confirm (U) [Mass/Vol] <25 Cutoff <25 [facility] Work Phone: Morphine Confirm (U) [Mass/Vol] <50 Cutoff <50 [facility] Work Phone: Nordiazepam Confirm (U) [Mass/Vol] <25 Cutoff <25 [facility] Work Phone: Norfentanyl Confirm (U) [Mass/Vol] <2.5 Cutoff<2.5 [facility] Work Phone: Comment on above: The performance sheela acteristics of the Fentanyl Confirmation, Urine has been validated by the individual laboratory site where testing is performed. It has not been cleared or approved by the FDA. However the FDA has determined that such clearance or approval is not necessary. Our Laboratory is certified under the Clinical Laboratory Improvement Amendments of 1988 (CLIA) as qualified to perform high complexity clinical laboratory testing. Norhydrocodone Confirm (U) [Mass/Vol] <25 Cutoff <25 [facility] Work Phone: Noroxycodone Confirm (U) [Mass/Vol] <25 Cutoff <25 [facility] Work Phone: Nortramadol (U) [Mass/Vol] <50 Cutoff <50 [facility] Work Phone: Comment on above: The performance sheela acteristics of the Tramadol Confirmation, Urine has been validated by the individual laboratory site where testing is performed. It has not been cleared or approved by the FDA. However the FDA has determined that such clearance or approval is not necessary. Our Laboratory is certified under the Clinical Laboratory Improvement Amendments of 1988 (CLIA) as qualified to perform high complexity clinical laboratory testing. Oxazepam Confirm (U) [Mass/Vol] <25 Cutoff <25 [facility] Work Phone: oxyCODONE Confirm (U) [Mass/Vol] <25 Cutoff <25 [facility] Work Phone: oxyMORphone Confirm (U) [Mass/Vol] <25 Cutoff <25 [facility] Work Phone: Comment on above: The performance sheela acteristics of the Opiate Confirmation, Urine has been validated by the individual laboratory site where testing is performed. It has not been cleared or approved by the FDA. However the FDA has determined that such clearance or approval is not necessary. Our Laboratory is certified under the Clinical Laboratory Improvement Amendments of 1988 (CLIA) as qualified to perform high complexity clinical laboratory testing. Phencyclidine Ql (U) Negative NEGATIVE [facility] Work Phone: Comment on above: CUTOFF LEVEL: 25 NG/ ML Cross-reactivity has been reported with dextromethorphan. Temazepam Confirm (U) [Mass/Vol] <25 Cutoff <25 [facility] Work Phone: Comment on above: The performance sheela acteristics of the Benzodiazepine Confirmation, Urine has been validated by the individual laboratory site where testing is performed. It has not been cleared or approved by the FDA. However the FDA has determined that such clearance or approval is not necessary. Our Laboratory is certified under the Clinical Laboratory Improvement Amendments of 1988 (CLIA) as qualified to perform high complexity clinical laboratory testing. traMADol Confirm (U) [Mass/Vol] <50 Cutoff <50 [facility] Work Phone: Zolpidem (U) [Mass/Vol] <25 Cutoff <25 [facility] Work Phone: No Panel Informationon 04-07 <25 Cutoff <25 [facility] Work Phone: Comment on above: The performance sheela acteristics of the Zolpidem Confirmation, Urine has been validated by the individual laboratory site where testing is performed. It has not been cleared or approved by the FDA. However the FDA has determined that such clearance or approval is not necessary. Our Laboratory is certified under the Clinical Laboratory Improvement Amendments of 1988 (CLIA) as qualified to perform high complexity clinical laboratory testing. SEE BELOW [facility] Work Phone: Comment on above: Drug screen results are presumptive and should not be used to assess compliance with prescribed medication. Definitive confirmatory drug testing has been added to this sample for any positive screen result and will be reported separately. .Toxicology screening results are reported qualitatively. The concentration must be greater than or equal to the cutoff to be reported as positive. The concentration at which the screening test can detect an individual drug or metabolite varies. The absence of expected drug(s) and/or drug metabolite(s) may indicate non-compliance, inappropriate timing of specimen collection relative to drug administration, poor drug absorption, diluted/adulterated urine, or limitations of testing. For medical purposes only; not valid for forensic use. .Interpretive questions should be directed to the laboratory medical directors. Initial Visit (Orthopaedic S urgery)on 03-10-2022 Initial Visit (Orthopaedic Surgery) Diagnoses/Problems Assessed Right rotator cuff tear (840.4) (M75.101) Orders Arthropathy of right shoulder Start: HYDROcodone-Acetaminoph en 5-325 MG Oral Tablet; TAKE 1 TABLET EVERY 4 TO 6 HOURS NEEDED Patient Discussion/Summary By signing my name below, I, Jakob Thapa, attest that this documentation has been prepared under the direction and in the presence of Dr. Neeru Le. All medical record entries made by the Scribe were at my direction and personally dictated by me. I have reviewed the chart and agree that the record accurately reflects my personal performance of the history, physical exam, discussion and plan. Provider Impressions Assessment- right shoulder pain, right rotator cuff tear Plan-patient is a pleasant 51-year-old female who presents today for evaluation of right shoulder rotator cuff tear she is referral from Dr. Ruff. She presents with severe right shoulder pain that is been recalcitrant to conservative measures MRI did demonstrate tear of the supraspinatus as well as long head of the biceps pathology and subacromial bursitis. We did have a discussion about potential treatment options including injection and surgical intervention she was desirous to proceed with surgical intervention she is an extremely high risk candidate she has previous throat cancer she is undergone tracheostomy she has a history of tobacco induced oral cancer. I think she needs both clearance from her primary care provider as well as anesthesia as I think surgical intervention in the beachchair position is very risky at our [facility] This note has been created with voice recognition software. Please be aware that there may be grammatical or contextual errors due to the use of the software. Chief Complaint NEW) Referral from pain medicine for further evaluation and treatment of right shoulder pain (rotator cuff tear) as she had an MRI of the right shoulder performed on 12/13/2021. She states she has significant pain and decreased ROM of the right shoulder. Onset: Oct 2021 after dog pulled her down by a leash. She denies any history of shoulder trauma or surgery. She denies any treatments to date. She denies using any pain medication currently. History of Present Illness Patient is a pleasant 51-year-old female presenting today for right shoulder pain with rotator cuff tear as referred by pain medicine. An MRI of the right shoulder was performed on 12/13/2021. Patient states she has been experiencing pain of the right shoulder since October of 2021 when she was pulled down to the ground by her dog's leash. She denies any additional history of the shoulder trauma, any treatments to date or surgery. She reports experiencing significant pain and decreased range of motion of the shoulder. She is accompanied by a child care worker who does report the patient will stay up at night in agony because of her significant pain. Dr. Ruff prescribed medication (Meloxicam 15 mg) but notes not tolerating it well due to nausea. She has also tried Lyrica 50 mg in which she denies any improvement with taking. She does have a trachea due to a history of cancer of the throat as she has a history of smoking. She is scheduled to see her PCP Dr. Gamez on 03/17/22 in which she will discuss proceeding with surgical intervention for the shoulder. Review of Systems Constitutional: no fever, no chills, not feeling tired, no recent weight gain and no recent weight loss. ENT: no nosebleeds. Cardiovascular: no chest pain. Respiratory: no shortness of breath and no cough. Gastrointestinal: no abdominal pain, no nausea, no vomiting and no diarrhea. Musculoskeletal: no arthralgias and as noted in HPI. Integumentary: no rashes and no skin wound. Neurological: no headache. Psychiatric: no depression and no sleep disturbances. Endocrine: no muscle weakness and no muscle cramps. Hematologic/Lymphatic: no swollen glands and no tendency for easy bruising. All other systems have been reviewed and are negative for complaint. Active Problems Problems Anxiety (300.00) (F41.9) Arthropathy of right shoulder (716.91) (M19.011) Brain lesion (348.89) (G93.9) Cervical radiculitis (723.4) (M54.12) Depression (311) (F32.A) GERD (gastroesophageal reflux disease) (530.81) (K21.9) High blood pressure (401.9) (I10) History of high cholesterol (V12.29) (Z86.39) Insomnia (780.52) (G47.00) Lumbosacral radiculopathy (724.4) (M54.17) Lumbosacral spondylosis (721.3) (M47.817) Mastoiditis of right side (383.9) (H70.91) Multiple sclerosis (340) (G35) Neurogenic claudication due to lumbar spinal stenosis (724.03) (M48.062) Sacroiliitis (720.2) (M46.1) Thyroid disease (246.9) (E07.9) Past Medical History Problems History of kidney disease (V13.09) (Z87.448) stage 3 History of throat cancer (V10.02) (Z85.819) Surgical History Problems History of Bladder surgery History of section x3 History of Hernia repair History of Intra-randee (more content not included)... Normal [facility] Tobacco Screening.on 022 Tobacco use status [facility] b) No [facility] Work Phone: CNCAyaz 02-04-2022 CNCO Letter Text Normal [facility] CNOVon 02-04-2022 CNOV Office Visit (NEMANDREAS ) VJ MYERS ([id number]) 1970 F Date Time Provider Department 02/04/22 1:30 PM ANJUM DANIEL During your visit today, we recorded the following information about you: Pulse Blood pressure Weight Height 96/minute 129/90 108.9 kg 1.6 m Anjum Daniel MD 02/06/2022 9:00 PM Signed [facility] NEW PATIENT EVALUATION/CONSULTATION Referral source: Lucila Ruff MD [address] [place] [address] [place] [address] Also followed by: Patient Care Team: Lucila Ruff as Referring (Pain Management) PRINCIPAL NEUROLOGIC DIAGNOSIS: white matter abnormality on MRI brain DISEASE SUMMARY Date of onset: NOV-2021 Date of diagnosis of MS: NA Disease course at onset: Monophasic Current disease course: Monophasic Previous disease therapies: NA Current disease therapy: NA Most recent MRI brain: 12/28/2021 Most recent MRI cervical spine: NA CSF: NA JCV serology result and date: NA HISTORY OF ILLNESS: An opinion on this 51 year old woman was requested by the referring physician for a second opinion on abnormal brain MRI. The patient was accompanied by her mother and significant other. Previous records (physician notes, laboratory reports, and radiology reports) and imaging studies were reviewed and summarized. My recommendations will be communicated back to the patient's physician(s) by mail. Follow-up is expected to be with me or the referring physician based on results of planned workup. Ms. Myers initially presented to her local doctors for evaluation of sharp, stabbing pains over the right forehead and neck pain. She had a CT scan of the right shoulder for a rotator cuff injury. There was concern for white matter disease on her brain. She had a follow up MRI of the brain and was referred to [facility] for [facility] evaluation. Current Symptoms: 1. Intermittent blurry vision when watching TV 2. Intermittent weakness in the arms and legs 3. Cramping in the legs 4. Persistent numbness and tingling in the hands 5. Frequently drops objects that she is holding 6. Stress urinary incontinence 7. Problems with short-term memory and concentration 8. Somnolence MS Review of Systems: Denies difficulty with language, visual loss, diplopia, bulbar symptoms, symptoms of spasticity, sensory loss, incoordination, difficulty with gait, bowel symptoms, Lhermitte's phenomenon. Other Pertinent History: 1. Throat cancer - S/p chemoradiation 10 years ago - No cancer recurrence 2. Smoking - 8 year history, 2 ppd - Quit 6 years ago 3. CKD Stage III Neuro-Qol Functions (higher = better functioning) Neuro-Qol Symptoms (higher = worse symptoms) *NeuroQoL is a multi-domain patient-reported quality of life questionnaire. *PHQ-9 is a questionnaire for depressive symptoms, with scores 0-4 indicating none, 5-9 mild, 10-14 moderate, 15-19 moderately severe, and 20-27 severe symptoms. *PROMIS-10 is a patient-reported quality of life measure, typically reported as physical and mental domains. Here scores are expressed as percentiles, where the lowest possible score is one, the highest possible score is 99, and 50 is average. PAST HISTORY: PAST MEDICAL HISTORY Diagnosis Date - Acid reflux - Dyslipidemia - Essential hypertension - Hypothyroidism - Stage 3 chronic kidney disease (HCC) - Throat cancer (HCC) 11/20/2008 stage IV PAST SURGICAL HISTORY Procedure Laterality Date - DELIVERY ONLY x3 - LX REPAIR RECURRENT VENTRAL HERNIA x 5 - PAST SURGICAL HISTORY OF 08/2011 Exp lap, lysis of adhesions, excision of abd mass - TOTAL ABDOMINAL HYSTERECT W/WO RMVL TUBE OVARY supracervical - TRACHEOPLASTY CERVICAL removal and reconstruction - TRACHEOSTOMY, PLANNED Tracheostomy Transfusions: None Current Outpatient Medications Medication Sig - pregabalin (LYRICA) 50 mg capsule Take 50 mg by mouth three times daily. - omeprazole (PRILOSEC) 40 mg capsule Take 40 mg by mouth once daily. - sucralfate (CARAFATE) 1 gram tablet Take 1 g by mouth four times daily. - liothyronine (CYTOMEL) 5 mcg tablet Take 5 mcg by mouth twice daily. - cefdinir (OMNICEF) 300 mg capsule Take 300 mg by mouth twice daily. - sertraline (ZOLOFT) 50 mg tablet Take 75 mg by mouth once daily. - atorvastatin (LIPITOR) 10 mg tablet Take 10 mg by mouth once daily. - ALBUTEROL INHALATION Inhale as instructed. - albuterol HFA (PROVENTIL HFA, VENTOLIN HFA) 90 mcg/actuation inhaler Inhale 2 Puffs as instructed. - levothyroxine 100 mcg ORAL tablet Take 137 mcg by mouth once daily. - esomeprazole (NEXIUM) 40 mg ORAL capsule Take 1 capsule by mouth once daily. No current facility-administered medications for this visit. ALLERGIES Allergen Reactions - Morphine Vomiting - Latex Rash - Plastic Tape [Other] Rash Social History Tobacco Use Sm (more content not included)... Normal [facility] MRI Brain w/wo Contraston MR Brain WO and W contrast IV Normal [facility] Work Phone: MRI Cervical without Contras ton 12-13-2021 MR Cervical spine WO contrast Normal [facility] Work Phone: MRI Shoulder without Contras ton 12-13-2021 MR Shoulder WO contrast Normal [facility] Work Phone: Basophil percentageon 2021 Chloride [Moles/Vol] 104 mmol/L 98-107 [facility]: Glucose [Mass/Vol] 100 mg/dL 74-106 [facility] Work Phone: Comment on above: Fasting Glucose resu lt from 100 to 125 mg/dL suggests IMPAIRED HOMEOSTASIS per A.D.A. criteria. Potassium [Moles/Vol] 4.6 mmol/L 3.5-5.1 [facility] Work Phone: Sodium [Moles/Vol] 133 mmol/L 136-145 [facility] Work Phone: WBC (Bld) [#/Vol] 8.3 10*3/uL 4.4-11.0 [facility] Work Phone: Blood erythrocytes count (nu mber/volume)on 12-02-2021 RBC (Bld) [#/Vol] 4.32 10*6/uL 4.2-5.4 [facility] Work Phone: Blood hemoglobin measurement (mass/volume)on 12-02-2021 Hemoglobin (Bld) [Mass/Vol] 12.8 g/dL 12.0-15.0 [facility] Work Phone: Blood platelet mean volumeon 12-02-2021 Platelet mean volume (Bld) [Entitic vol] 9.4 fL 6.2-12.0 [facility] Work Phone: Determination of erythrocyte mean corpuscular volume (MCV)on 12-02-2021 MCV (RBC) [Entitic vol] 93.1 fL 81-99 [facility] Work Phone: Hematocrit Auto (Bld) [Volum e fraction]on 12-02-2021 Hematocrit (Bld) [Volume fraction] 40.2 % 37-47 [facility] Work Phone: Laboratory - Chemistry and C hemistry - challengeon 12-02-2021 CO2 [Moles/Vol] 26.0 mmol/L 21.0-32.0 [facility] Work Phone: Urea nitrogen/Creatinine [Mass ratio] 18.2 mg/mg 10-20 [facility] Work Phone: Laboratory - Hematology and Cell countson 12-02-2021 Erythrocyte distribution width (RBC) [Entitic vol] 45.1 fL 35.1-43.9 [facility] Work Phone: Erythrocyte distribution width (RBC) [Ratio] 13.2 % 11.6-14.6 [facility] Work Phone: MCH (RBC) [Entitic mass] 29.6 pg 27.0-32.0 [facility] Work Phone: MCHC Auto (RBC) [Mass/Vol]on 12-02-2021 MCHC (RBC) [Mass/Vol] 31.8 g/dL 32-36 [facility] Work Phone: No Panel Informationon 12-02 Estimated GFR (MDRD) Amer 67 mL/min >60 [facility] Work Phone: Comment on above: GFR Calc Estimated GFR (MDRD) Non-Af Amer 56 mL/min >60 [facility] Work Phone: Comment on above: Non- GFR Calc SARS-CoV-2 Antigen (Rapid) [facility] Work Phone: Platelets bldon 12-02-2021 Platelets (Bld) [#/Vol] 225 10*3/uL 150-450 [facility] Work Phone: Serum or plasma calcium alessandro urement (mass/volume)on 12-02-2021 Calcium [Mass/Vol] 8.9 mg/dL 8.5-10.1 [facility] Work Phone: Serum or plasma creatinine m easurement (mass/volume)on 12-02-2021 Creatinine [Mass/Vol] 1.10 mg/dL 0.55-1.02 [facility] Work Phone: Comment on above: The validity of the calculated GFR & GFRAA in patients over 70 years has not been determined. Clinical correlation is essential. Serum or plasma urea nitroge n measurement (mass/volume)on 12-02-2021 Urea nitrogen [Mass/Vol] 20 mg/dL 7-18 [facility] Work Phone: Thin prep Papanicolaou smear with manual screeningon 12-02-2021 Thin prep Papanicolaou smear with manual screening 3 5-15 [facility] Work Phone: No Panel Informationon 11-09 Please click on the link to view the study images [facility] Work Phone: MRI L Spine without Contrast on 10-27-2021 MR Lumbar spine WO contrast Normal [facility] Work Phone: Radiologyon 10-27-2021 XR Shoulder 2 Views Normal [facility] Work Phone: No Panel Informationon 10-26 Normal [facility] Work Phone: Please click on the link to view the study images Normal [facility] Work Phone: Radiologyon 10-26-2021 XR Sacroiliac Joint 3 Views Normal [facility] Work Phone: XR Sacroiliac Joint 3 Views Please click on the link to view the study images Normal [facility] Work Phone: T4-FREE (FREE THYROXINE)on 0 06-29-2020 Free T4 [Mass/Vol] 0.85 ng/dL Normal 0.61 - 1.12 [facility] Comment on above: Result Comment: P otential of falsely elevated results when biotin concentrations are > 10 ng/mL. Performed By: #### [id number] #### [facility],[address] [place] [address] 32023 TSHon 06-29-2020 TSH Qn 4.46 uIU/ml Normal 0.34 - 5.60 [facility] Comment on above: Performed By: #### 2 [id number] #### [facility],[address] [place], [place] [id number] MODIFIED BARIUM/COOKIE CHANDLER Montelongo 04-03-2018 MODIFIED BARIUM/COOKIE SWALLOW A D D E N D U M Final ReportAccession No: [id number] Performed: Apr 03 2018 12:11PMExamination: MODIFIED BARIUM/COOKIE SWALLOW Begin Addendum #1 Clinical content is unchanged.# of images = [id number] ReportEXAMINATION: MODIFIED BARIUM/COOKIE SWALLOWCLINICAL STATEMENT: Dysphagia.COMPARISON: None.FLUOROSCOPY TIME: Fluoro time measures 136 seconds.TECHNIQUE: Fluoroscopic assistance was provided to Speech Pathology. Thepatient was administered multiple consistencies. Video fluoroscopy wasperformed.FINDINGS: No aspiration is noted throughout the study at thetracheoesophagealp cture site. The patient has a history of total laryngectomy withreconstruction with a neopharynx. With pureed solids there was residue atC5-C6with backflow/retrograde bolus movement while trialing dry swallows ineffortto clear. There was solid bolus residue with poor motility at C3 thatextendsanteriorly and at C4-C5 at the level of narrowing of theneopharyngeal/esopha geal region.IMPRESSION:Abnor mal swallowing function study as described above. [facility] for further discussion and recommendations.cc:Adde ndum Signed by: KAYLAN GONZALES M.D. on 05/01/2018 Normal [facility] Bronchoalveolar lavage cultu re with Gram stain Respiratory Culture Meth. resistant Stap h. aureus [facility] Work Phone: Gram stain for investigation of transfusion reaction Microscopic observation Gram stain Nom (Unsp spec) [facility] Work Phone: No Panel Information Respiratory Panel (PCR) [facility] Work Phone: SARS-CoV-2 Antigen (Rapid) [facility] Work Phone: Vital Signs Date Time Vital Sign Value Performing Clinician Facility 09-15-2025 09:50-0400 Body height 160 cm Michelle Bond MD Work Phone: [phone] [address] 09-15-2025 09:50-0400 Body mass index (BMI) [Ratio] 28.52 kg/m2 Michelle Bond MD Work Phone: 4(617)[phone] [place] [address] 09-15-2025 09:50-0400 Body weight 73.03 kg Michelle Bond MD Work Phone: 0(068)[phone] [place] [address] 09-15-2025 09:50-0400 Diastolic blood pressure 60 mm[Hg] Michelle Bond MD Work Phone: 2(548)508-670979 [place] [address] 09-15-2025 09:50-0400 Systolic blood pressure 82 mm[Hg] Michelle Bond MD Work Phone: 9(319)332-108779 [place] [address] 08-11-2025 10:23-0400 Body height 160 cm Michelle Bond MD Work Phone: 0([phone])[phone] [place] [address] 08-11-2025 10:23-0400 Body mass index (BMI) [Ratio] 28.52 kg/m2 Michelle Bond MD Work Phone: [phone] [address] 08-11-2025 10:23-0400 Body weight 73.03 kg Michelle Bond MD Work Phone: 3(151)[phone] [place] [address] 08-11-2025 10:23-0400 Diastolic blood pressure 93 mm[Hg] Michelle Bond MD Work Phone: [phone](576)[phone] [address] 08-11-2025 10:23-0400 Systolic blood pressure 157 mm[Hg] Michelle Bond MD Work Phone: 1(354)[phone] [address] 07-29-2025 13:04-0400 Body temperature 97.81 [degF] Huma Sinopoli DO Work Phone: [facility] 07-29-2025 13:04-0400 Diastolic blood pressure 65 mm[Hg] Huma Sinopoli DO Work Phone: [facility] 07-29-2025 13:04-0400 Heart rate 78 /min Huma Sinopoli DO Work Phone: [facility] 07-29-2025 13:04-0400 Systolic blood pressure 99 mm[Hg] Huma Sinopoli DO Work Phone: [facility] 07-16-2025 19:45-0400 Body temperature 98.1 [degF] Huma Sinopoli DO Work Phone: [facility] 07-16-2025 19:45-0400 Diastolic blood pressure 63 mm[Hg] Huma Sinopoli DO Work Phone: [facility] 07-16-2025 19:45-0400 Heart rate 92 /min Huma Sinopoli DO Work Phone: [facility] 07-16-2025 19:45-0400 Respiratory rate 16 /min Huma Sinopoli DO Work Phone: [facility] 07-16-2025 19:45-0400 SaO2% (BldA) [Mass fraction] 100 % Huma Sinopoli DO Work Phone: [facility] 07-16-2025 19:45-0400 Systolic blood pressure 104 mm[Hg] Huma Sinopoli DO Work Phone: [facility] 07-16-2025 15:44-0400 Body height 160 cm Huma Sinopoli DO Work Phone: [facility] 07-16-2025 15:44-0400 Body mass index (BMI) [Ratio] 28.52 kg/m2 Huma Sinopoli DO Work Phone: [facility] 07-16-2025 15:44-0400 Body weight 73.03 kg Humakush Diezi DO Work Phone: [facility] 06-26-2025 13:07-0400 Body temperature 97.9 [degF] Ellis Guerrero MD Work Phone: [facility] 06-26-2025 13:07-0400 Diastolic blood pressure 101 mm[Hg] Ellis Guerrero MD Work Phone: [facility] 06-26-2025 13:07-0400 Heart rate 94 /min Ellis Guerrero MD Work Phone: [facility] 06-26-2025 13:07-0400 Respiratory rate 16 /min Ellis Guerrero MD Work Phone: [facility] 06-26-2025 13:07-0400 SaO2% (BldA) [Mass fraction] 94 % Ellis Guerrero MD Work Phone: [facility] 06-26-2025 13:07-0400 Systolic blood pressure 154 mm[Hg] Ellis Guerrero MD Work Phone: [facility] 06-26-2025 05:00-0400 Body mass index (BMI) [Ratio] 34.72 kg/m2 Ellis Guerrero MD Work Phone: [facility] 06-26-2025 05:00-0400 Body weight 88.91 kg Ellis Guerrero MD Work Phone: [facility] 06-22-2025 04:40-0400 Body temperature 37.0 Ellis Guerrero MD Work Phone: [facility] 06-22-2025 04:35-0400 Body temperature 37.0 degrees Celsius [facility] Comment on above: Performed By: #### THYDS #### BJ Keys ([id number]) [facility] ([facility]) [address] [place] [address] 06-22-2025 03:41-0400 Body height 160 cm Ellis Guerrero MD Work Phone: [facility] 06-22-2025 01:00-0400 Heart rate 81 /min Eliazar Nolan DO Work Phone: [facility] 06-22-2025 01:00-0400 Respiratory rate 12 /min Eliazar Nolan DO Work Phone: [facility] 06-22-2025 00:46-0400 Diastolic blood pressure 62 mm[Hg] Eliazar Nolan DO Work Phone: [facility] 06-22-2025 00:46-0400 Systolic blood pressure 95 mm[Hg] Eliazar Nolan DO Work Phone: [facility] 06-22-2025 00:20-0400 SaO2% (BldA) [Mass fraction] 100 % Eliazar Nolan DO Work Phone: [facility] 06-21-2025 23:55-0400 Body temperature 97.2 [degF] Eliazar Nolan DO Work Phone: [facility] 06-19-2025 20:42-0400 Body temperature 37.0 Eliazar Nolan DO Work Phone: [facility] 06-19-2025 20:42-0400 SaO2% (BldA) [Mass fraction] 94 % Eliazar Nolan DO Work Phone: [facility] 06-19-2025 20:37-0400 Body temperature 37.0 degrees Celsius [facility] Comment on above: Performed By: #### [id number] #### PATRCIIA STEWART ([id number]) [facility] ([facility]) [address] [place] [address] 06-19-2025 20:37-0400 SaO2% (BldA) [Mass fraction] 94 % [facility] Comment on above: Performed By: #### [id number] #### GOMEZ PAT ([id number]) [facility] ([facility]) [address] [place] [address] 06-19-2025 18:29-0400 Body height 160 cm Eliazar Nolan DO Work Phone: [facility] 06-19-2025 18:29-0400 Body mass index (BMI) [Ratio] 36.14 kg/m2 Eliazar Nolan DO Work Phone: [facility] 06-19-2025 18:29-0400 Body weight 92.53 kg Eliazar Nolan DO Work Phone: [facility] 06-17-2025 11:22-0400 Body temperature 96.8 [degF] Huma Sinopoli DO Work Phone: [facility] 06-17-2025 11:22-0400 Diastolic blood pressure 75 mm[Hg] Huma Sinopoli DO Work Phone: [facility] 06-17-2025 11:22-0400 Heart rate 81 /min Huma Sinopoli DO Work Phone: [facility] 06-17-2025 11:22-0400 Respiratory rate 17 /min Huma Sinopoli DO Work Phone: [facility] 06-17-2025 11:22-0400 SaO2% (BldA) [Mass fraction] 94 % Huma Sinopoli DO Work Phone: [facility] 06-17-2025 11:22-0400 Systolic blood pressure 104 mm[Hg] Huma Sinopoli DO Work Phone: [facility] 06-17-2025 07:08-0400 Body mass index (BMI) [Ratio] 36.25 kg/m2 Huma Sinopoli DO Work Phone: [facility] 06-17-2025 07:08-0400 Body weight 92.81 kg Huma Thomas DO Work Phone: [facility] 06-13-2025 17:41-0400 Body height 160 cm Huma Thomas DO Work Phone: [facility] 06-12-2025 16:21-0400 Body temperature 37.0 Huma Diezi DO Work Phone: [facility] 06-12-2025 16:21-0400 SaO2% (BldA) [Mass fraction] Huma Diezi DO Work Phone: [facility] Comment on above: Canceled by a provider Corrected result: Previously reported as 73 % (reference range: 94-100 %) on 06/12/2025 at 1201 EDT. 06-12-2025 16:19-0400 Body temperature 37.0 Huma Diezi DO Work Phone: [facility] Work Phone: 06-12-2025 16:19-0400 SaO2% (BldA) [Mass fraction] Huma Diezi DO Work Phone: [facility] Work Phone: Comment on above: Canceled by a provider Corrected result: Previously reported as 66 % (reference range: 94-100 %) on 06/12/2025 at 1528 EDT. 06-12-2025 15:07-0400 Body temperature 37.0 degrees Celsius [facility] Comment on above: Performed By: #### [id number] #### BJ Keys ([id number]) [facility] ([facility]) [id number] [place] [address] 06-12-2025 15:07-0400 SaO2% (BldA) [Mass fraction] [facility] Comment on above: Result Comment: Canceled by a provider Corrected result: Previously reported as 66 % (reference range: 94-100 %) on 06/12/2025 at 1528 EDT. Performed By: #### 3 [id number] #### BJ Keys ([id number]) [facility] ([facility]) [address] [place] [address] 06-12-2025 11:55-0400 Body temperature 37.0 degrees Celsius [facility] Comment on above: Performed By: #### [id number] #### BJ Keys ([id number]) [facility] ([facility]) [address] [place] [address] 06-12-2025 11:55-0400 SaO2% (BldA) [Mass fraction] [facility] Comment on above: Result Comment: Canceled by a provider Corrected result: Previously reported as 73 % (reference range: 94-100 %) on 06/12/2025 at 1201 EDT. Performed By: #### 1 [id number] #### BJ Keys ([id number]) [facility] ([facility]) [address] [place] [address] 06-12-2025 00:00-0400 Diastolic blood pressure 68 mm[Hg] Sylvia Bonilla MD Work Phone: [facility] 06-12-2025 00:00-0400 Systolic blood pressure 97 mm[Hg] Sylvia Bonilla MD Work Phone: [facility] 06-11-2025 22:00-0400 Heart rate 85 /min Sylvia Bonilla MD Work Phone: [facility] 06-11-2025 21:43-0400 SaO2% (BldA) [Mass fraction] 100 % Sylvia Bonilla MD Work Phone: [facility] 06-11-2025 12:57-0400 Body mass index (BMI) [Ratio] 35.68 kg/m2 Sylvia Bonilla MD Work Phone: [facility] 06-11-2025 12:57-0400 Body weight 91.35 kg Sylvia Bonilla MD Work Phone: [facility] 06-11-2025 11:11-0400 Body temperature 96.8 [degF] Sylvia Bonilla MD Work Phone: [facility] 06-11-2025 11:11-0400 Respiratory rate 18 /min Sylvia Bonilla MD Work Phone: [facility] 06-06-2025 22:14-0400 Body temperature 37.0 Sylvia Bonilla MD Work Phone: [facility] 06-06-2025 22:14-0400 SaO2% (BldA) [Mass fraction] 97 % Sylvia Bonilla MD Work Phone: [facility] 06-06-2025 22:10-0400 Body temperature 37.[address] [facility] Comment on above: Performed By: #### [id number] #### PATRICIA STEWART ([id number]) [facility] ([facility]) [address] [place] [address] 06-06-2025 22:10-0400 SaO2% (BldA) [Mass fraction] 97 % [facility] Comment on above: Performed By: #### [id number] #### PATRICIA STEWART ([id number]) [facility] ([facility]) [address] [place] [address] 06-06-2025 19:57-0400 Body temperature 37.0 Sylvia Bonilla MD Work Phone: [facility] 06-06-2025 19:57-0400 SaO2% (BldA) [Mass fraction] 87 % Sylvia Bonilla MD Work Phone: [facility] 06-06-2025 19:52-0400 Body temperature 37.[address] [facility] Comment on above: Performed By: #### [id number] #### PATRICIA STEWART ([id number]) [facility] ([facility]) [address] [place] [address] 06-06-2025 19:52-0400 SaO2% (BldA) [Mass fraction] 87 % [facility] Comment on above: Performed By: #### [id number] #### PATRICIA STEWART ([id number]) [facility] ([facility]) [address] [place] [address] 06-05-2025 23:13-0400 Body height 160 cm Sylvia Bonilla MD Work Phone: [facility] 01-12-2025 20:45-0500 Diastolic blood pressure 87 mm[Hg] Blas Zelaya MD MPH Work Phone: [facility] 01-12-2025 20:45-0500 Systolic blood pressure 137 mm[Hg] Blas Zelaya MD MPH Work Phone: [facility] 01-12-2025 20:30-0500 Heart rate 95 /min Blas Zelaya MD MPH Work Phone: [facility] 01-12-2025 20:30-0500 Respiratory rate 20 /min Blas Zelaya MD MPH Work Phone: [facility] 01-12-2025 20:30-0500 SaO2% (BldA) [Mass fraction] 100 % Blas Zelaya MD MPH Work Phone: [facility] 01-12-2025 17:37-0500 Body height 160 cm Blas Zelaya MD MPH Work Phone: [facility] 01-12-2025 17:37-0500 Body mass index (BMI) [Ratio] 31.89 kg/m2 Blas Zelaya MD MPH Work Phone: [facility] 01-12-2025 17:37-0500 Body temperature 97.5 [degF] Blas Zelaya MD MPH Work Phone: [facility] 01-12-2025 17:37-0500 Body weight 81.65 kg Blas Zelaya MD MPH Work Phone: [facility] 01-10-2025 14:00-0500 Heart rate 71 /min Eliazar Nolan DO Work Phone: [facility] 01-10-2025 14:00-0500 Respiratory rate 24 /min Eliazar Nolan DO Work Phone: [facility] 01-10-2025 12:00-0500 Diastolic blood pressure 92 mm[Hg] Eliazar Nolan DO Work Phone: [facility] 01-10-2025 12:00-0500 Systolic blood pressure 131 mm[Hg] Eliazar Nolan DO Work Phone: [facility] 01-10-2025 11:46-0500 SaO2% (BldA) [Mass fraction] 100 % Eliazar Nolan DO Work Phone: [facility] 01-10-2025 08:00-0500 Body temperature 97.7 [degF] Eliazar Nolan DO Work Phone: [facility] 01-07-2025 21:03-0500 Body height 160 cm Eliazar Nolan DO Work Phone: [facility] 01-07-2025 21:03-0500 Body mass index (BMI) [Ratio] 35.23 kg/m2 Eliazar Nolan DO Work Phone: [facility] 01-07-2025 21:03-0500 Body weight 90.2 kg Eliazar Nolan DO Work Phone: [facility] 05-29-2024 17:30-0400 Diastolic blood pressure 68 mm[Hg] Jeronimo Dolan MD Work Phone: [facility] 05-29-2024 17:30-0400 Heart rate 74 /min Jeronimo Dolan MD Work Phone: [facility] 05-29-2024 17:30-0400 Respiratory rate 14 /min Jeronimo Dolan MD Work Phone: [facility] 05-29-2024 17:30-0400 SaO2% (BldA) [Mass fraction] 96 % Jeronimo Dolan MD Work Phone: [facility] 05-29-2024 17:30-0400 Systolic blood pressure 103 mm[Hg] Jeronimo Dolan MD Work Phone: [facility] 05-29-2024 15:08-0400 Body height 157.5 cm Jeronimo Dolan MD Work Phone: [facility] 05-29-2024 15:08-0400 Body mass index (BMI) [Ratio] 29.26 kg/m2 Jeronimo Dolan MD Work Phone: [facility] 05-29-2024 15:08-0400 Body temperature 97.59 [degF] Jeronimo Dolan MD Work Phone: [facility] 05-29-2024 15:08-0400 Body weight 72.58 kg Jeronimo Dolan MD Work Phone: [facility] 04-19-2024 11:17-0400 Diastolic blood pressure 78 mm[Hg] Jerrod Hale DO Work Phone: [facility] 04-19-2024 11:17-0400 Heart rate 76 /min Jerrod Hale DO Work Phone: [facility] 04-19-2024 11:17-0400 Respiratory rate 16 /min Jerrod Hale DO Work Phone: [facility] 04-19-2024 11:17-0400 SaO2% (BldA) [Mass fraction] 95 % Jerrod Hale DO Work Phone: [facility] 04-19-2024 11:17-0400 Systolic blood pressure 112 mm[Hg] Jerrod Hale DO Work Phone: [facility] 04-19-2024 08:45-0400 Body height 157.5 cm Jerrod Hale DO Work Phone: [facility] 04-19-2024 08:45-0400 Body mass index (BMI) [Ratio] 34.39 kg/m2 Jerrod Hale DO Work Phone: [facility] 04-19-2024 08:45-0400 Body temperature 97.81 [degF] Jerrod Hale DO Work Phone: [facility] 04-19-2024 08:45-0400 Body weight 85.28 kg Jerrod Hale DO Work Phone: [facility] 04-09-2024 00:36-0400 Diastolic blood pressure 71 mm[Hg] Jerrod Hale DO Work Phone: [facility] 04-09-2024 00:36-0400 Heart rate 78 /min Jerrod Hale DO Work Phone: [facility] 04-09-2024 00:36-0400 Respiratory rate 16 /min Jerrod Hale DO Work Phone: [facility] 04-09-2024 00:36-0400 SaO2% (BldA) [Mass fraction] 98 % Jerrod Hale DO Work Phone: [facility] 04-09-2024 00:36-0400 Systolic blood pressure 101 mm[Hg] Jerrod Hale DO Work Phone: [facility] 04-08-2024 21:38-0400 Body height 160 cm Jerrod Hale DO Work Phone: [facility] 04-08-2024 21:38-0400 Body mass index (BMI) [Ratio] 31.18 kg/m2 Jerrod Hale DO Work Phone: [facility] 04-08-2024 21:38-0400 Body temperature 98.8 [degF] Jerrod Hale DO Work Phone: [facility] 04-08-2024 21:38-0400 Body weight 79.83 kg Jerrod Hale DO Work Phone: [facility] 04-05-2024 12:05-0400 Diastolic blood pressure 84 mm[Hg] [address] 04-05-2024 12:05-0400 Heart rate 73 /min [address] 04-05-2024 12:05-0400 Respiratory rate 18 /min [address] 04-05-2024 12:05-0400 SaO2% (BldA) [Mass fraction] 96 % [address] 04-05-2024 12:05-0400 Systolic blood pressure 116 mm[Hg] [address] 04-05-2024 11:59-0400 Body temperature 97.5 [degF] [address] 04-05-2024 10:57-0400 Body height [address] 04-05-2024 10:57-0400 Body mass index (BMI) [Ratio] 31 kg/m2 [address] 04-05-2024 10:57-0400 Body weight 79.[address] 03-25-2024 16:18-0400 Body height 160 cm Blas Zelaya MD MPH Work Phone: [facility] 03-25-2024 16:18-0400 Body mass index (BMI) [Ratio] 32.97 kg/m2 Blas Zelaya MD MPH Work Phone: [facility] 03-25-2024 16:18-0400 Body weight 84.41 kg Blas Zelaya MD MPH Work Phone: [facility] 03-25-2024 16:18-0400 Diastolic blood pressure 76 mm[Hg] Blas Zelaya MD MPH Work Phone: [facility] 03-25-2024 16:18-0400 Heart rate 104 /min Blas Zelaya MD MPH Work Phone: [facility] 03-25-2024 16:18-0400 SaO2% (BldA) [Mass fraction] 94 % Blas Zelaya MD MPH Work Phone: [facility] 03-25-2024 16:18-0400 Systolic blood pressure 106 mm[Hg] Blas Zelaya MD MPH Work Phone: [facility] 03-22-2024 11:00-0400 Body temperature 97.9 [degF] [employer] Iqra Rose [employer] Work Phone: [facility] 03-22-2024 11:00-0400 Diastolic blood pressure 72 mm[Hg] [employer] Iqra Rose [employer] Work Phone: [facility] 03-22-2024 11:00-0400 Heart rate 81 /min [employer] Iqra Rose [employer] Work Phone: [facility] 03-22-2024 11:00-0400 Respiratory rate 15 /min [employer] Iqra Rose [employer] Work Phone: [facility] 03-22-2024 11:00-0400 SaO2% (BldA) [Mass fraction] 96 % [employer] Iqra Rose [employer] Work Phone: [facility] 03-22-2024 11:00-0400 Systolic blood pressure 91 mm[Hg] [employer] Iqra Rose [employer] Work Phone: [facility] 03-22-2024 07:00-0400 Inhaled oxygen flow rate 2 L/min [employer] Iqra Rose [employer] Work Phone: [facility] 03-22-2024 05:07-0400 Body mass index (BMI) [Ratio] 34.8 kg/m2 [employer] Iqra Rose [employer] Work Phone: [facility] 03-22-2024 05:07-0400 Body weight 86.4 kg [employer] Iqra Rose [employer] Work Phone: [facility] 03-21-2024 18:41-0400 Body height 157.48 cm [employer] Iqra Rose NP Work Phone: [facility] 03-21-2024 18:25-0400 Body temperature 98 [degF] [facility] 03-21-2024 18:25-0400 Diastolic blood pressure 71 mm[Hg] [facility] 03-21-2024 18:25-0400 Heart rate 74 /min [facility] 03-21-2024 18:25-0400 Respiratory rate 16 /min [facility] 03-21-2024 18:25-0400 SaO2% (BldA) [Mass fraction] 89 % [facility] 03-21-2024 18:25-0400 Systolic blood pressure 89 mm[Hg] [facility] 03-21-2024 15:19-0400 Body height 157.48 cm [facility] 02-28-2024 14:56-0400 Body mass index (BMI) [Ratio] 32.59 kg/m2 Roseybenjy Lan PA-C Work Phone: [facility] 02-28-2024 14:56-0400 Body weight 83.46 kg Roseybenjy Lan PA-C Work Phone: [facility] 02-28-2024 14:56-0400 Diastolic blood pressure 76 mm[Hg] Rosey Lan PA-C Work Phone: [facility] 02-28-2024 14:56-0400 Heart rate 100 /min Roseybenjy Lan PA-C Work Phone: [facility] 02-28-2024 14:56-0400 Respiratory rate 18 /min Roseybenjy Lan PA-C Work Phone: [facility] 02-28-2024 14:56-0400 Systolic blood pressure 113 mm[Hg] Rosey Lan PA-C Work Phone: [facility] 02-06-2024 13:16-0400 Body mass index (BMI) [Ratio] 32.06 kg/m2 Pattie RANGEL Work Phone: [facility] 02-06-2024 13:16-0400 Body weight 82.1 kg Pattie Sun [employer] Work Phone: [facility] 02-06-2024 13:16-0400 Heart rate 80 /min Pattie Sun [employer] Work Phone: [facility] 02-06-2024 13:16-0400 Respiratory rate 16 /min Pattie Sun [employer] Work Phone: [facility] 02-02-2024 14:35-0400 Diastolic blood pressure 77 mm[Hg] Ton Lemasters DO Work Phone: [facility] 02-02-2024 14:35-0400 Heart rate 77 /min Ton Lemasters DO Work Phone: [facility] 02-02-2024 14:35-0400 Respiratory rate 16 /min Ton Lemasters DO Work Phone: [facility] 02-02-2024 14:35-0400 SaO2% (BldA) [Mass fraction] 93 % Ton Lemasters DO Work Phone: [facility] 02-02-2024 14:35-0400 Systolic blood pressure 99 mm[Hg] Ton Lemasters DO Work Phone: [facility] 02-02-2024 11:44-0400 Body height 160 cm Ton Lemasters DO Work Phone: [facility] 02-02-2024 11:44-0400 Body mass index (BMI) [Ratio] 30.11 kg/m2 Ton Lemasters DO Work Phone: [facility] 02-02-2024 11:44-0400 Body temperature 97.81 [degF] Ton Lemasters DO Work Phone: [facility] 02-02-2024 11:44-0400 Body weight 77.11 kg Ton Lemasters DO Work Phone: [facility] 12-04-2023 16:04-0500 Body height 161 cm Blas Zelaya MD MPH Work Phone: [facility] 12-04-2023 16:04-0500 Body mass index (BMI) [Ratio] 34.7 kg/m2 Blas Zelaya MD MPH Work Phone: [facility] 12-04-2023 16:04-0500 Body weight 89.95 kg Blas Zelaya MD MPH Work Phone: [facility] 12-04-2023 16:04-0500 Diastolic blood pressure 70 mm[Hg] Blas Zelaya MD MPH Work Phone: [facility] 12-04-2023 16:04-0500 Heart rate 110 /min Blas Zelaya MD MPH Work Phone: [facility] 12-04-2023 16:04-0500 SaO2% (BldA) [Mass fraction] 98 % Blas Zelaya MD MPH Work Phone: [facility] 12-04-2023 16:04-0500 Systolic blood pressure 98 mm[Hg] Blas Zelaya MD MPH Work Phone: [facility] 11-01-2023 15:00-0500 SaO2% (BldA) [Mass fraction] 97 % David Branham MD Work Phone: [facility] 11-01-2023 14:00-0500 Heart rate 86 /min David Branham MD Work Phone: [facility] 11-01-2023 14:00-0500 Respiratory rate 21 /min David Branham MD Work Phone: [facility] 11-01-2023 12:00-0500 Body temperature 97.9 [degF] David Branham MD Work Phone: [facility] 11-01-2023 12:00-0500 Diastolic blood pressure 88 mm[Hg] David Branham MD Work Phone: [facility] 11-01-2023 12:00-0500 Systolic blood pressure 134 mm[Hg] David Branham MD Work Phone: [facility] 10-31-2023 15:33-0500 Body height 160 cm David Branham MD Work Phone: [facility] 10-31-2023 15:33-0500 Body mass index (BMI) [Ratio] 40.23 kg/m2 David Branham MD Work Phone: [facility] 10-31-2023 15:33-0500 Body weight 103 kg David Branham MD Work Phone: [facility] 10-24-2023 08:34-0500 Body temperature 37.0 David Branham MD Work Phone: [facility] 10-24-2023 08:34-0500 SaO2% (BldA) [Mass fraction] 95 % David Branham MD Work Phone: [facility] 10-23-2023 15:40-0500 Body temperature 37.0 David Branham MD Work Phone: [facility] 10-23-2023 15:40-0500 SaO2% (BldA) [Mass fraction] 95 % David Branham MD Work Phone: [facility] 10-23-2023 13:31-0500 Body temperature 37.0 David Branham MD Work Phone: [facility] 10-23-2023 13:31-0500 SaO2% (BldA) [Mass fraction] 92 % David Branham MD Work Phone: [facility] 10-23-2023 10:58-0500 Body temperature 37.0 David Branham MD Work Phone: [facility] 10-23-2023 10:58-0500 SaO2% (BldA) [Mass fraction] 100 % David Branham MD Work Phone: [facility] 03-31-2023 18:23-0400 Body temperature 98.2 [degF] [facility] 03-31-2023 18:23-0400 Diastolic blood pressure 74 mm[Hg] [facility] 03-31-2023 18:23-0400 Heart rate 890 /min [facility] 03-31-2023 18:23-0400 Inhaled oxygen flow rate 5 L/min [facility] 03-31-2023 18:23-0400 Respiratory rate 18 /min [facility] 03-31-2023 18:23-0400 SaO2% (BldA) [Mass fraction] 98 % [facility] 03-31-2023 18:23-0400 Systolic blood pressure 122 mm[Hg] [facility] 03-31-2023 11:35-0400 Body height 157.48 cm [facility] 03-31-2023 11:35-0400 Body weight 93 kg [facility] 03-31-2023 02:21-0400 Body temperature 98.6 [degF] [facility] 03-31-2023 02:21-0400 Diastolic blood pressure 66 mm[Hg] [facility] 03-31-2023 02:21-0400 Heart rate 109 /min [facility] 03-31-2023 02:21-0400 Inhaled oxygen concentration 50 % [facility] 03-31-2023 02:21-0400 Respiratory rate 25 /min [facility] 03-31-2023 02:21-0400 SaO2% (BldA) [Mass fraction] 98 % [facility] 03-31-2023 02:21-0400 Systolic blood pressure 99 mm[Hg] [facility] 03-31-2023 02:06-0400 Body mass index (BMI) [Ratio] 37.5 kg/m2 [facility] 03-30-2023 21:09-0400 Body height 162.56 cm [facility] 03-30-2023 21:09-0400 Body mass index (BMI) [Ratio] 35.3 kg/m2 [facility] 03-30-2023 21:09-0400 Body weight 93.44 kg [facility] 02-20-2023 11:27-0400 Body height 160.02 cm Iqra Rose Work Phone: [facility] [place] [facility] DO Work Phone: 02-20-2023 11:27-0400 Body mass index (BMI) [Ratio] 38.83 kg/m2 Iqra Rose Work Phone: [facility] [place] [facility] DO Work Phone: 02-20-2023 11:27-0400 Body surface area Derived from formula 2.01 m2 Iqra Rose Work Phone: [facility] [place] [facility] DO Work Phone: 02-20-2023 11:27-0400 Body weight 99.43 kg Iqra Rose Work Phone: [facility] [place] [facility] DO Work Phone: 02-20-2023 11:27-0400 Diastolic blood pressure 88 mm[Hg] Iqra Rose Work Phone: [facility] [place] [facility] DO Work Phone: 02-20-2023 11:27-0400 Heart rate 80 /min Iqra Rose Work Phone: [facility] [place] [facility] DO Work Phone: 02-20-2023 11:27-0400 Systolic blood pressure 132 mm[Hg] Iqra Rose Work Phone: [facility] [place] [facility] DO Work Phone: 01-30-2023 11:54-0400 Body mass index (BMI) [Ratio] 38.26 kg/m2 Iqra Rose Work Phone: [facility] [place] [facility] Work Phone: 01-30-2023 11:54-0400 Body surface area Derived from formula 2 m2 Iqra Rose Work Phone: [facility] [place] [facility] DO Work Phone: 01-30-2023 11:54-0400 Body weight 97.98 kg Iqra Rose Work Phone: [facility] [place] [facility] DO Work Phone: 01-30-2023 11:54-0400 Diastolic blood pressure 88 mm[Hg] Iqra Rose Work Phone: [facility] [place] [facility] DO Work Phone: 01-30-2023 11:54-0400 Heart rate 90 /min Iqra Rose Work Phone: [facility] [place] [facility] DO Work Phone: 01-30-2023 11:54-0400 Respiratory rate 18 /min Iqra Rose Work Phone: [facility] [place] [facility] DO Work Phone: 01-30-2023 11:54-0400 Systolic blood pressure 125 mm[Hg] Iqra Rose Work Phone: [facility] [place] [facility] DO Work Phone: 11-29-2022 10:34-0500 Body height 160.02 cm Iqra Rose Work Phone: [facility]-Samari lopez Work Phone: 11-29-2022 10:34-0500 Body mass index (BMI) [Ratio] 40.42 kg/m2 Iqra Rose Work Phone: [facility] Work Phone: 11-29-2022 10:34-0500 Body surface area Derived from formula 2.05 m2 Iqra Rose Work Phone: [facility] Work Phone: 11-29-2022 10:34-0500 Body weight 103.51 kg Iqra Rose Work Phone: [facility] Work Phone: 11-29-2022 10:34-0500 Diastolic blood pressure 62 mm[Hg] Iqra Rose Work Phone: [facility] Work Phone: 11-29-2022 10:34-0500 Heart rate 70 /min Iqra Rose Work Phone: [facility] Work Phone: 11-29-2022 10:34-0500 Systolic blood pressure 118 mm[Hg] Iqra Rose Work Phone: [facility] Work Phone: 11-03-2022 12:58-0500 Body height 160.02 cm Iqra Rose Work Phone: [facility] Work Phone: 11-03-2022 12:58-0500 Body mass index (BMI) [Ratio] 41.17 kg/m2 Iqra Rose Work Phone: [facility] Work Phone: 11-03-2022 12:58-0500 Body surface area Derived from formula 2.06 m2 Iqra Rose Work Phone: [facility] Work Phone: 11-03-2022 12:58-0500 Body weight 105.42 kg Iqra Rose Work Phone: [facility] Work Phone: 11-03-2022 12:58-0500 Diastolic blood pressure 83 mm[Hg] Iqra Rose Work Phone: [facility] Work Phone: 11-03-2022 12:58-0500 Heart rate 90 /min Iqra Rose Work Phone: [facility] Work Phone: 11-03-2022 12:58-0500 Respiratory rate 16 /min Iqra Rose Work Phone: [facility] Work Phone: 11-03-2022 12:58-0500 Systolic blood pressure 157 mm[Hg] Iqra Rose Work Phone: [facility] Work Phone: 10-17-2022 10:25-0500 Body mass index (BMI) [Ratio] 41.81 kg/m2 Iqra Rose Work Phone: [facility] [place] [facility] DO Work Phone: 10-17-2022 10:25-0500 Body surface area Derived from formula 2.07 m2 Iqra Rose Work Phone: [facility] [place] 3 DO Work Phone: 10-17-2022 10:25-0500 Body weight 107.05 kg Iqra Rose Work Phone: [facility] DO Work Phone: 10-17-2022 10:25-0500 Diastolic blood pressure 104 mm[Hg] Iqra Rose Work Phone: [facility] DO Work Phone: 11-28-2022 10:25-0500 Heart rate 98 /min Iqra K Milton Work Phone: [facility] DO Work Phone: 10-17-2022 10:25-0500 SaO2% (BldA) [Mass fraction] 97 % Iqra K Milton Work Phone: [facility] [place] [facility] DO Work Phone: 10-17-2022 10:25-0500 Systolic blood pressure 170 mm[Hg] Iqra Larios Milton Work Phone: [facility] [place] [facility] DO Work Phone: 10-11-2022 15:38-0500 Body mass index (BMI) [Ratio] 41.81 kg/m2 Iqra Rose Work Phone: [facility] 3 DO Work Phone: 10-11-2022 15:38-0500 Body surface area Derived from formula 2.07 m2 Iqra Rose Work Phone: [facility] 3 DO Work Phone: 10-11-2022 15:38-0500 Body weight 107.05 kg Iqra Harriet Rose Work Phone: [facility] [place] [facility] DO Work Phone: 10-11-2022 15:38-0500 Diastolic blood pressure 87 mm[Hg] Iqra K Milton Work Phone: [facility] [place] [facility] DO Work Phone: 10-11-2022 15:38-0500 Heart rate 102 /min Iqra Rose Work Phone: [facility] 3 DO Work Phone: 10-11-2022 15:38-0500 Respiratory rate 16 /min Iqra Larios Milton Work Phone: [facility] DO Work Phone: 10-11-2022 15:38-0500 Systolic blood pressure 130 mm[Hg] Iqra K Milton Work Phone: [facility] DO Work Phone: 10-11-2022 14:17-0500 Body height 160.02 cm Iqra Larios Milton Work Phone: [facility] DO Work Phone: 10-11-2022 14:17-0500 Body mass index (BMI) [Ratio] 41.84 kg/m2 Iqra K Milton Work Phone: [facility] [place] [facility] DO Work Phone: 10-11-2022 14:17-0500 Body surface area Derived from formula 2.08 m2 Iqra Larios Milton Work Phone: [facility] [place] [facility] DO Work Phone: 10-11-2022 14:17-0500 Body weight 107.14 kg Iqra Larios Milton Work Phone: [facility] 3 DO Work Phone: 10-11-2022 14:17-0500 Diastolic blood pressure 80 mm[Hg] Iqra Larios Milton Work Phone: [facility] [place] [facility] DO Work Phone: 10-11-2022 14:17-0500 Heart rate 82 /min Iqra Larios Milton Work Phone: [facility] DO Work Phone: 10-11-2022 14:17-0500 Systolic blood pressure 124 mm[Hg] Iqra Rose Work Phone: [facility] [place] [facility] Work Phone: 08-31-2022 11:03-0400 Body height 160.02 cm Iqra Rose Work Phone: [facility] Work Phone: 08-31-2022 11:03-0400 Body mass index (BMI) [Ratio] 41.63 kg/m2 Iqra Rose Work Phone: [facility] Work Phone: 08-31-2022 11:03-0400 Body surface area Derived from formula 2.07 m2 Iqra Rose Work Phone: [facility] Work Phone: 08-31-2022 11:03-0400 Body weight 106.6 kg Iqra Rose Work Phone: [facility] Work Phone: 08-31-2022 11:03-0400 Diastolic blood pressure 89 mm[Hg] Iqra Rose Work Phone: [facility] Work Phone: 08-31-2022 11:03-0400 Heart rate 90 /min Iqra Rose Work Phone: [facility] Work Phone: 08-31-2022 11:03-0400 Respiratory rate 16 /min Iqra Rose Work Phone: [facility] Work Phone: 08-31-2022 11:03-0400 Systolic blood pressure 128 mm[Hg] Iqra Rose Work Phone: [facility] Work Phone: 06-15-2022 10:03-0400 Body height 160.02 cm Iqra Harriet Rose Work Phone: [facility] Work Phone: 06-15-2022 10:03-0400 Body mass index (BMI) [Ratio] 44.99 kg/m2 Iqra Harriet Rose Work Phone: [facility] Work Phone: 06-15-2022 10:03-0400 Body surface area Derived from formula 2.14 m2 Iqra Harriet Rose Work Phone: [facility] Work Phone: 06-15-2022 10:03-0400 Body weight 115.21 kg Iqra Rose Work Phone: [facility] Work Phone: 06-15-2022 10:03-0400 Diastolic blood pressure 99 mm[Hg] Iqra Rose Work Phone: [facility] Work Phone: 06-15-2022 10:03-0400 Heart rate 112 /min Iqra Rose Work Phone: [facility] Work Phone: 06-15-2022 10:03-0400 Respiratory rate 12 /min Iqra Rose Work Phone: [facility] Work Phone: 06-15-2022 10:03-0400 Systolic blood pressure 144 mm[Hg] Iqra Rose Work Phone: [facility] Work Phone: 05-18-2022 11:02-0400 Body height 160.02 cm Iqra Rose Work Phone: [facility] Work Phone: 05-18-2022 11:02-0400 Body mass index (BMI) [Ratio] 52.43 kg/m2 Iqra Larios Milton Work Phone: [facility] Work Phone: 05-18-2022 11:02-0400 Body surface area Derived from formula 2.28 m2 Iqra Larios Milton Work Phone: [facility]us[facility]jk[facility] Work Phone: 05-18-2022 11:02-0400 Body weight 134.27 kg Iqra Larios Milton Work Phone: [facility]ne[facility]hedm[facility] Work Phone: 05-18-2022 11:02-0400 Diastolic blood pressure 84 mm[Hg] Iqra Larios Milton Work Phone: [facility] Work Phone: 05-18-2022 11:02-0400 Heart rate 85 /min Iqra Larios Milton Work Phone: VY[facility]orkvvgi[facility] Work Phone: 05-18-2022 11:02-0400 SaO2% (BldA) [Mass fraction] 85 % Iqra Larios Milton Work Phone: [facility] Work Phone: 05-18-2022 11:02-0400 Systolic blood pressure 132 mm[Hg] Iqra Harriet Rose Work Phone: PS[facility]da[facility] Work Phone: 05-11-2022 09:52-0400 Body height 160.02 cm Iqra Rose Work Phone: [facility] Work Phone: 05-11-2022 09:52-0400 Body mass index (BMI) [Ratio] 45.35 kg/m2 Iqra Rose Work Phone: [facility] Work Phone: 05-11-2022 09:52-0400 Body surface area Derived from formula 2.15 m2 Iqra Rose Work Phone: [facility] Work Phone: 05-11-2022 09:52-0400 Body weight 116.12 kg Iqra Rose Work Phone: [facility] Work Phone: 05-11-2022 09:52-0400 Diastolic blood pressure 83 mm[Hg] Iqra Rose Work Phone: [facility] Work Phone: 05-11-2022 09:52-0400 Heart rate 91 /min Iqra Rose Work Phone: [facility] Work Phone: 05-11-2022 09:52-0400 Respiratory rate 16 /min Iqra Rose Work Phone: [facility] Work Phone: 05-11-2022 09:52-0400 Systolic blood pressure 132 mm[Hg] Iqra Rose Work Phone: [facility] Work Phone: 05-04-2022 16:09-0400 Body temperature 97.4 [degF] [facility] Work Phone: [facility] Work Phone: 05-04-2022 16:09-0400 Diastolic blood pressure 84 mm[Hg] [facility] Work Phone: [facility] Work Phone: 05-04-2022 16:09-0400 Heart rate 76 /min [facility] Work Phone: [facility] Work Phone: 05-04-2022 16:09-0400 Respiratory rate 18 /min [facility] Work Phone: [facility] Work Phone: 05-04-2022 16:09-0400 SaO2% (BldA) [Mass fraction] 94 % [facility] Work Phone: [facility] Work Phone: 05-04-2022 16:09-0400 Systolic blood pressure 118 mm[Hg] [facility] Work Phone: [facility] Work Phone: 05-04-2022 07:05-0400 Inhaled oxygen concentration 24 % [facility] Work Phone: [facility] Work Phone: 05-04-2022 06:00-0400 Body weight 120.6 kg [facility] Work Phone: [facility] Work Phone: 05-02-2022 09:05-0400 Body height 157.48 cm [facility] Work Phone: [facility] Work Phone: 04-29-2022 16:39-0400 Body mass index (BMI) [Ratio] 47.5 kg/m2 [facility] Work Phone: [facility] Work Phone: 04-29-2022 16:00-0400 Body temperature 98.9 [degF] [facility] Work Phone: [facility] Work Phone: 04-29-2022 16:00-0400 Diastolic blood pressure 68 mm[Hg] [facility] Work Phone: [facility] Work Phone: 04-29-2022 16:00-0400 Heart rate 66 /min [facility] Work Phone: [facility] Work Phone: 04-29-2022 16:00-0400 Inhaled oxygen concentration 35 % [facility] Work Phone: [facility] Work Phone: 04-29-2022 16:00-0400 Respiratory rate 16 /min [facility] Work Phone: [facility] Work Phone: 04-29-2022 16:00-0400 SaO2% (BldA) [Mass fraction] 95 % [facility] Work Phone: [facility] Work Phone: 04-29-2022 16:00-0400 Systolic blood pressure 107 mm[Hg] [facility] Work Phone: [facility] Work Phone: 04-29-2022 13:39-0400 Body height 157.48 cm [facility] Work Phone: [facility] Work Phone: 04-29-2022 13:39-0400 Body mass index (BMI) [Ratio] 50.3 kg/m2 [facility] Work Phone: [facility] Work Phone: 04-29-2022 13:39-0400 Body weight 125 kg [facility] Work Phone: [facility] Work Phone: 04-28-2022 10:46-0400 Respiratory rate 21 /min [facility] Work Phone: [facility] Work Phone: 04-28-2022 10:08-0400 Body temperature 98.2 [degF] [facility] Work Phone: [facility] Work Phone: 04-28-2022 10:08-0400 Diastolic blood pressure 83 mm[Hg] [facility] Work Phone: [facility] Work Phone: 04-28-2022 10:08-0400 Heart rate 108 /min [facility] Work Phone: [facility] Work Phone: 04-28-2022 10:08-0400 SaO2% (BldA) [Mass fraction] 95 % [facility] Work Phone: [facility] Work Phone: 04-28-2022 10:08-0400 Systolic blood pressure 129 mm[Hg] [facility] Work Phone: [facility] Work Phone: 04-27-2022 08:57-0400 Inhaled oxygen concentration 28 % [facility] Work Phone: [facility] Work Phone: 04-26-2022 13:07-0400 Body height 157.48 cm [facility] Work Phone: [facility] Work Phone: 04-26-2022 13:07-0400 Body weight 118.3 kg [facility] Work Phone: [facility] Work Phone: 04-26-2022 01:38-0400 Diastolic blood pressure 63 mm[Hg] Iqra Rose Other Phone: [facility] 04-26-2022 01:38-0400 Heart rate 91 /min Iqra Rose Other Phone: [facility] 04-26-2022 01:38-0400 Respiratory rate 20 /min Iqra Rose Other Phone: [facility] 04-26-2022 01:38-0400 SaO2% (BldA) [Mass fraction] 92 % Iqra Rose Other Phone: [facility] 04-26-2022 01:38-0400 Systolic blood pressure 92 mm[Hg] Iqra Rose Other Phone: [facility] 04-26-2022 00:53-0400 Body mass index (BMI) [Ratio] 47.7 kg/m2 [facility] Work Phone: [facility] Work Phone: 04-25-2022 20:13-0400 FiO2 28 1 Iqra Rose Other Phone: [facility] 04-25-2022 19:31-0400 Body height 160 cm Iqra Rose Other Phone: [facility] 04-25-2022 19:31-0400 Body temperature 98.24 [degF] Iqra Rose Other Phone: [facility] 04-25-2022 19:31-0400 Body weight 115 kg Iqra Rose Other Phone: [facility] 04-07-2022 10:37-0400 Body height 160.02 cm Iqra Rose Work Phone: [facility] Work Phone: 04-07-2022 10:37-0400 Body mass index (BMI) [Ratio] 45.17 kg/m2 Iqra Rose Work Phone: [facility] Work Phone: 04-07-2022 10:37-0400 Body surface area Derived from formula 2.14 m2 Iqra Rose Work Phone: [facility] Work Phone: 04-07-2022 10:37-0400 Body weight 115.67 kg Iqra Rose Work Phone: [facility] Work Phone: 04-07-2022 10:37-0400 Diastolic blood pressure 89 mm[Hg] Iqra Rose Work Phone: [facility] Work Phone: 04-07-2022 10:37-0400 Heart rate 96 /min Iqra Rose Work Phone: [facility] Work Phone: 04-07-2022 10:37-0400 Respiratory rate 22 /min Iqra Rose Work Phone: [facility] Work Phone: 04-07-2022 10:37-0400 Systolic blood pressure 149 mm[Hg] Iqra Rose Work Phone: [facility] Work Phone: 03-10-2022 09:25-0400 Body height 160.02 cm Iqra Rose Work Phone: [facility] Management-Samari lopez Work Phone: 03-10-2022 09:25-0400 Body mass index (BMI) [Ratio] 45.35 kg/m2 Iqra Rose Work Phone: [facility]Samari lopez Work Phone: 03-10-2022 09:25-0400 Body surface area Derived from formula 2.15 m2 Iqra Rose Work Phone: [facility] l[facility] Work Phone: 03-10-2022 09:25-0400 Body temperature 97.4 [degF] Iqra Rose Work Phone: [facility] Work Phone: 03-10-2022 09:25-0400 Body weight 116.12 kg Iqra Rose Work Phone: [facility] Work Phone: 02-14-2022 11:45-0400 Body mass index (BMI) [Ratio] 45.35 kg/m2 Iqra Rose Work Phone: [facility] Work Phone: 02-14-2022 11:45-0400 Body surface area Derived from formula 2.15 m2 Iqra Rose Work Phone: [facility] Work Phone: 02-14-2022 11:45-0400 Body weight 116.12 kg Iqra Rose Work Phone: [facility] Work Phone: 02-14-2022 11:45-0400 Diastolic blood pressure 86 mm[Hg] Iqra Rose Work Phone: [facility] Work Phone: 02-14-2022 11:45-0400 Heart rate 98 /min Iqra Rose Work Phone: [facility] Work Phone: 02-14-2022 11:45-0400 Respiratory rate 16 /min Iqra Rose Work Phone: [facility] Work Phone: 02-14-2022 11:45-0400 Systolic blood pressure 127 mm[Hg] Iqra Rose Work Phone: [facility] Work Phone: 02-04-2022 13:16-0400 Body height 160 cm Anjum Daniel MD Work Phone: [facility] 02-04-2022 13:16-0400 Body weight 108.86 kg Anjum Daniel MD Work Phone: [facility] 02-04-2022 13:16-0400 Diastolic blood pressure 90 mm[Hg] Anjum Daniel MD Work Phone: [facility] 02-04-2022 13:16-0400 Heart rate 96 /min Anjum Daniel MD Work Phone: [facility] 02-04-2022 13:16-0400 Systolic blood pressure 129 mm[Hg] Anjum Daniel MD Work Phone: [facility] 01-24-2022 13:20-0500 Body temperature 97.1 [degF] [facility] Work Phone: [facility] Work Phone: 01-24-2022 13:20-0500 Diastolic blood pressure 72 mm[Hg] [facility] Work Phone: [facility] Work Phone: 01-24-2022 13:20-0500 Heart rate 98 /min [facility] Work Phone: [facility] Work Phone: 01-24-2022 13:20-0500 Respiratory rate 18 /min [facility] Work Phone: [facility] Work Phone: 01-24-2022 13:20-0500 SaO2% (BldA) [Mass fraction] 96 % [facility] Work Phone: [facility] Work Phone: 01-24-2022 13:20-0500 Systolic blood pressure 106 mm[Hg] [facility] Work Phone: [facility] Work Phone: 01-24-2022 12:20-0500 Body temperature 97.1 [degF] [facility] Work Phone: [facility] Work Phone: 01-24-2022 12:20-0500 Diastolic blood pressure 72 mm[Hg] [facility] Work Phone: [facility] Work Phone: 01-24-2022 12:20-0500 Heart rate 98 /min [facility] Work Phone: [facility] Work Phone: 01-24-2022 12:20-0500 Respiratory rate 18 /min [facility] Work Phone: [facility] Work Phone: 01-24-2022 12:20-0500 SaO2% (BldA) [Mass fraction] 96 % [facility] Work Phone: [facility] Work Phone: 01-24-2022 12:20-0500 Systolic blood pressure 106 mm[Hg] [facility] Work Phone: [facility] Work Phone: 01-24-2022 08:04-0500 Body mass index (BMI) [Ratio] 45 kg/m2 [facility] Work Phone: [facility] Work Phone: 01-24-2022 08:04-0500 Body weight 111.7 kg [facility] Work Phone: [facility] Work Phone: 01-24-2022 07:04-0500 Body height 157.48 cm [facility] Work Phone: [facility] Work Phone: 01-24-2022 07:04-0500 Body mass index (BMI) [Ratio] 45 kg/m2 [facility] Work Phone: [facility] Work Phone: 01-24-2022 07:04-0500 Body weight 111.7 kg [facility] Work Phone: [facility] Work Phone: 01-03-2022 09:09-0500 Body height 160.02 cm Iqra Rose Work Phone: [facility] Work Phone: 01-03-2022 09:09-0500 Body mass index (BMI) [Ratio] 43.4 kg/m2 Iqra Roes Work Phone: [facility] Work Phone: 01-03-2022 09:09-0500 Body surface area Derived from formula 2.11 m2 Iqra Rose Work Phone: [facility] Work Phone: 01-03-2022 09:09-0500 Body temperature 97.6 [degF] Iqra Rose Work Phone: [facility] Work Phone: 01-03-2022 09:09-0500 Body weight 111.13 kg Iqra Rose Work Phone: [facility] Work Phone: 01-03-2022 09:09-0500 Diastolic blood pressure 91 mm[Hg] Iqra Rose Work Phone: [facility] Work Phone: 01-03-2022 09:09-0500 Heart rate 84 /min Iqra Rose Work Phone: [facility] Work Phone: 01-03-2022 09:09-0500 Respiratory rate 16 /min Iqra Rose Work Phone: [facility] Work Phone: 01-03-2022 09:09-0500 Systolic blood pressure 143 mm[Hg] Iqra Rose Work Phone: [facility] Work Phone: 11-01-2021 13:15-0500 Body height 160.02 cm Iqra Rose Work Phone: [facility] Work Phone: 11-01-2021 13:15-0500 Body mass index (BMI) [Ratio] 42.34 kg/m2 Iqra Rose Work Phone: [facility] Work Phone: 11-01-2021 13:15-0500 Body surface area Derived from formula 2.09 m2 Iqra Rose Work Phone: [facility] Work Phone: 11-01-2021 13:15-0500 Body temperature 97.7 [degF] Iqra Rose Work Phone: [facility] Work Phone: 11-01-2021 13:15-0500 Body weight 108.41 kg Iqra Rose Work Phone: [facility] Work Phone: 11-01-2021 13:15-0500 Diastolic blood pressure 92 mm[Hg] Iqra Rose Work Phone: [facility] Work Phone: 11-01-2021 13:15-0500 Heart rate 80 /min Iqra Rose Work Phone: [facility] Work Phone: 11-01-2021 13:15-0500 Respiratory rate 12 /min Iqra Rose Work Phone: [facility] Work Phone: 11-01-2021 13:15-0500 Systolic blood pressure 130 mm[Hg] Iqra Rose Work Phone: [facility] Work Phone: 10-26-2021 12:08-0500 Body temperature 97.2 [degF] Iqra Rose Work Phone: [facility] Work Phone: 10-26-2021 12:08-0500 Body weight 108.14 kg Iqra Rose Work Phone: [facility] Work Phone: 10-26-2021 12:08-0500 Diastolic blood pressure 109 mm[Hg] Iqra Rose Work Phone: [facility]epz Work Phone: 10-26-2021 12:08-0500 Heart rate 94 /min Iqra Rose Work Phone: [facility] Work Phone: 10-26-2021 12:08-0500 Respiratory rate 16 /min Iqra Rose Work Phone: [facility]una [facility] Work Phone: 10-26-2021 12:08-0500 Systolic blood pressure 155 mm[Hg] Iqra Rose Work Phone: [facility] Work Phone: Encounters Encounter Date Encounter Type Care Provider Facility Start: 09-15-2025 End: 09-15-2025 Office outpatient visit 25 minutes Michelle Bond MD Work Phone: [facility] Comment on above: H/O laryngectomy (Pr imary Dx); Other specified hypothyroidism; Tracheoesophageal fistula Start: 09-15-2025 End: 09-15-2025 ambulatory [facility] Start: 08-11-2025 End: 08-11-2025 Office outpatient visit 40 minutes Michelle Bond MD Work Phone: [facility] Comment on above: H/O laryngectomy; Dysphagia, unspecified type; Other specified hypothyroidism Start: 08-11-2025 End: 08-11-2025 ambulatory [facility] Start: 07-29-2025 End: 07-29-2025 Postop follow up visit related to original px Huma Thomas DO Work Phone: [facility] Comment on above: Tracheoesophageal fi stula Start: 07-29-2025 End: 07-29-2025 Subsequent hospital visit by physician Magui [id number] X-Ray 1 [facility] Comment on above: Tracheoesophageal fi stula Start: 07-29-2025 End: 07-29-2025 ambulatory [facility] Start: 07-16-2025 End: 07-16-2025 ambulatory [facility] Start: 07-16-2025 End: 07-16-2025 Subsequent hospital visit by physician Huma Thomas DO Work Phone: [facility] [place] Comment on above: Tracheoesophageal fi stula (Primary Dx) Start: 06-22-2025 End: 06-26-2025 Evaluation and management of inpatient Ellis Guerrero MD Work Phone: [facility] [place] 20 Comment on above: Acute hypoxic respir atory failure (Primary Dx); Acute on chronic hypoxic respiratory failure; Status post insertion of percutaneous endoscopic gastrostomy (PEG) tube (Multi); Pneumonia due to gram-negative bacteria (Multi); Primary hypertension; Thyroid disease; Anxiety; Depression, unspecified depression type; Alcoholism (Multi); Tracheoesophageal fistula Start: 06-19-2025 End: 06-22-2025 Evaluation and management of inpatient Eliazar Nolan DO Work Phone: [facility] Comment on above: Acute on chronic hyp oxic respiratory failure (Primary Dx); Acute respiratory failure with hypoxia Start: 06-12-2025 End: 06-17-2025 Evaluation and management of inpatient Huma Adilia Thomas DO Work Phone: [facility] Yolanda [facility] 3 Comment on above: Tracheoesophageal fi stula (Primary Dx); Oropharyngeal dysphagia Start: 06-05-2025 Critical care ill/in jured patient addl 30 min Manny Allen [employer] Work Phone: [facility] Work Phone: Start: 06-05-2025 Critical care ill/in jured patient init 30-74 min Manny Allen [employer] Work Phone: [facility] Work Phone: Start: 06-05-2025 End: 06-12-2025 Evaluation and management of inpatient Sylvia Bonilla MD Work Phone: [facility] Start: 01-12-2025 End: 01-13-2025 ambulatory BEATRIS COELLO [facility] Start: 01-12-2025 End: 01-12-2025 Subsequent hospital visit by physician Abhi Marti Nonv1 [employer] [facility] Comment on above: Arrived Start: 01-12-2025 End: 01-12-2025 Emergency department patient visit STEVENSON ADAIR [facility] Comment on above: COPD exacerbation (M ulti) (Primary Dx); Non compliance w medication regimen Start: 01-07-2025 End: 01-10-2025 Evaluation and management of inpatient Eliazar Ramirez Ovidio DO Work Phone: [facility] Comment on above: Unresponsive episode (Primary Dx); Cystitis; Elevated troponin I level; Acute cystitis without hematuria; Chronic obstructive pulmonary disease with (acute) exacerbation (Multi) Start: 05-29-2024 End: 05-29-2024 Emergency department patient visit Jeronimo Dolan MD Work Phone: [facility] Comment on above: Generalized weakness (Primary Dx); Falls frequently; Tremors of nervous system; Contusion of left knee, initial encounter; Strain of neck muscle, initial encounter; Alcohol abuse Start: 04-19-2024 End: 04-19-2024 Subsequent hospital visit by physician Abhi Marti Nonv[employer] [facility] Comment on above: Arrived Start: 04-19-2024 End: 04-19-2024 Emergency department patient visit Jerrod Hale DO Work Phone: [facility] Comment on above: Fall, initial encoun ter (Primary Dx); Weakness; Urinary tract infection with hematuria, site unspecified; Tremor Start: 04-08-2024 End: 04-09-2024 Emergency department patient visit Jerrod Hale DO Work Phone: [facility] Comment on above: Paresthesias (Primar y Dx) Start: 04-05-2024 End: 04-05-2024 Subsequent hospital visit by physician Abhi Hawthorne C-Arm 2 [facility] Comment on above: Arrived Start: 04-05-2024 End: 04-05-2024 Subsequent hospital visit by physician Alfie Adair DO Work Phone: [facility] [place] Comment on above: Lumbar radiculopathy Start: 03-25-2024 End: 03-25-2024 Office outpatient visit 25 minutes Blas Zelaya MD MPH Work Phone: [facility] Comment on above: Tracheostomy status (Multi) (Primary Dx); Thyroid disease; Primary hypertension; Chronic obstructive pulmonary disease with (acute) exacerbation (Multi) Start: 03-25-2024 End: 03-25-2024 ambulatory [facility] Ambulatory Start: 03-22-2024 Non-patient / Non-visit [employer] Rocio Rose [employer] Work Phone: [facility] Work Phone: Start: 03-21-2024 Non-patient / Non-visit [employer] Rocio Rose [employer] Work Phone: [facility] Work Phone: Start: 03-21-2024 End: 03-22-2024 Evaluation and management of inpatient [employer] Iqra Rose [employer] [facility] Work [facility]: Start: 03-21-2024 ambulatory [facility] Facility: [facility] Start: 03-21-2024 Evaluation and manag [facility]ment of [facility]: Start: 02-28-2024 End: 02-28-2024 Office outpatient visit 25 minutes Rosey Lan PA-C Work Phone: [facility] Building Comment on above: Compression fracture of L5 vertebra with routine healing, subsequent encounter; Acute midline low back pain with left-sided sciatica; Lumbar radiculopathy; Compression fracture of L5 vertebra, initial encounter (CMS/HCC); Chronic bilateral low back pain with bilateral sciatica Start: 02-06-2024 End: 02-06-2024 Office outpatient visit 25 minutes Pattie Sun [employer] Work Phone: [facility] Comment on above: Compression fracture of L5 vertebra with routine healing, subsequent encounter (Primary Dx); Acute midline low back pain with left-sided sciatica Start: 02-06-2024 End: 02-06-2024 ambulatory [facility] Ambulatory Start: 02-02-2024 End: 02-02-2024 Emergency department patient visit Ton Rocio Lin DO Work Phone: [facility] Comment on above: Fall, initial encoun ter (Primary Dx); Head injury, initial encounter; Compression fracture of L5 vertebra, initial encounter (CMS/HCC); Urinary tract infection without hematuria, site unspecified Start: 12-04-2023 End: 12-04-2023 Office outpatient new 60 minutes Blas Zelaya MD MPH Work Phone: [facility] Comment on above: Cellulitis of right lower extremity (Primary Dx); Tracheostomy status (CMS/HCC); Malignant neoplasm of larynx (CMS/HCC); Stage 4 chronic kidney disease (CMS/HCC); Chronic obstructive pulmonary disease with (acute) exacerbation (CMS/HCC); Alcoholism (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); Hypothyroidism, unspecified type; Other specified abnormal findings of blood chemistry Start: 11-17-2023 End: 11-17-2023 Subsequent hospital visit by physician Abhi Baker [address] [place] [address] Comment on above: Vomiting, unspecifie d; Alcohol abuse, uncomplicated Alcohol abuse, uncom plicated Start: 11-10-2023 End: 11-10-2023 ambulatory [facility] Start: 11-09-2023 End: 11-09-2023 [facility] Start: 11-02-2023 End: 11-02-2023 [facility] Start: 10-22-2023 End: 11-01-2023 Evaluation and management of inpatient David Branham MD Work Phone: [facility] Comment on above: Pneumonia of both lo wer lobes due to infectious organism (Primary Dx); Respiratory distress; Pain of right upper extremity; Pneumonia due to gram-negative bacteria Start: 03-31-2023 End: 03-31-2023 Evaluation and management of inpatient [facility] 3 Start: 03-21-2023 End: 03-21-2023 ambulatory IQRA ROSE [facility] Start: 02-20-2023 Office outpatient vi sit 15 minutes Iqra Rose Work Phone: [facility] [place] [facility] Work Phone: Start: 02-15-2023 Transcribe Orders Rolly Pantoja MD Work Phone: [facility] Speech Therapy Comment on above: History of laryngect letty (Primary Dx); Aphonia Start: 02-08-2023 Chart Update Iqra Rose Work Phone: [facility] Work Phone: Start: 02-08-2023 End: 02-08-2023 Emergency department patient visit DARRONCHANNING RAMIREZ [facility] Start: 02-07-2023 Chart Update Iqra Rose Work Phone: EB[facility] [place] [facility] DO Work Phone: Start: 02-07-2023 ambulatory Lucila Ruff Facili ty:[id number] Start: 02-04-2023 AUDIT Iqra Rose Work Phone: [facility] Work Phone: Start: 01-31-2023 AUDIT Iqra Rose Work Phone: XG-Oomcvemotc-DIO [facility] [place] 3 DO Work Phone: Start: 01-30-2023 Patient encounter procedure Iqra Rose Work Phone: [facility] Work Phone: Start: 01-30-2023 ambulatory Lucila Aaronumbar Facili ty:[id number] Start: 01-03-2023 Chart Update Iqra Rose Work Phone: ZY-Qwbkjdkyqa-YAE [facility] [place] 3 DO Work Phone: Start: 12-02-2022 AUDIT Iqra Rose Work Phone: [facility] Work Phone: Start: 11-24-2022 End: 11-28-2022 ambulatory PROVIDER NOT IN SYSTEM [facility] Start: 11-24-2022 End: 11-24-2022 ambulatory Provider Not In System [facility] Speech Therapy Comment on above: Aphonia (Primary Dx) Start: 11-10-2022 Chart Update Iqra Rose Work Phone: [facility] Work Phone: Start: 11-04-2022 Chart Update Iqra Rose Work Phone: [facility]cuawaa[facility] [place] [facility] DO Work Phone: Start: 11-03-2022 [facility] Facility:[id number] Start: 11-03-2022 Patient encounter procedure Iqra Rose Work Phone: [facility] Work Phone: Start: 11-03-2022 ambulatory Ms. Rosey Saab [employer] Facility:[id number] Start: 10-19-2022 Chart Update Iqra Rose Work Phone: YI-Rqjrfgkcot-YU[facility]ams[facility] [place] [facility] DO Work Phone: Start: 10-17-2022 FUV, Provider: Anne Gonzales, Status: Pen, Time: 10:30 AM Iqra Rose Work Phone: DJ-Upeewtrodg-QKQ [facility] [facility] DO Work Phone: Start: 10-16-2022 Chart Update Iqra Rose Work Phone: JB-Hzwgvbebvi-BXW [facility] [place] 3 DO Work Phone: Start: 10-14-2022 Chart Update Iqra Rose Work Phone: U[facility]zt[facility] [place] 3 DO Work Phone: Start: 10-14-2022 ambulatory Anne Gonzales Facility:[id number] Start: 10-11-2022 ambulatory Lucila Lopez ty:[id number] Start: 10-11-2022 Office outpatient ne w 45 minutes Iqra Rose Work Phone: CW[facility]bsbw[facility] [place] 3 DO Work Phone: Start: 10-06-2022 AUDIT Iqra Rose Work Phone: [facility] Work Phone: Start: 10-04-2022 ambulatory RUPA [facility] Ambulatory Start: 09-29-2022 End: 09-29-2022 ambulatory IQRA LEDESMA [facility] Ambulatory Start: 09-28-2022 End: 09-29-2022 ambulatory IQRA LEDESMA [facility] Start: 09-08-2022 AUDIT Iqra Harriet Rose Work Phone: [facility] Work Phone: Start: 09-01-2022 End: 09-01-2022 ambulatory IQRA ROSE [facility] Start: 08-31-2022 ambulatory Ms. Rosey Saab hay Lan Facility:[id number] Start: 08-31-2022 Patient encounter procedure Iqra Rose Work Phone: [facility] Work Phone: Start: 06-27-2022 End: 06-27-2022 ambulatory Provider Not In System [facility] Speech Therapy Comment on above: Aphonia (Primary Dx) Start: 06-15-2022 Patient encounter procedure Iqra Rose Work Phone: [facility] Work Phone: Start: 06-15-2022 ambulatory Ms. Rosey Saab hay Lan Facility:[id number] Start: 05-31-2022 Chart Update Iqra Rose Work Phone: GE-Vtysccnomu-Equfob d [address] Work Phone: Start: 05-31-[address] Grey Avilez Fac ility:[id number] Start: 05-31-2022 Encounter for other preprocedural examination Dr. Grey Avilez Facility:[id number] Start: 05-30-2022 Encounter for other preprocedural examination Dr. Grey Avilez [facility] Start: 05-30-[address] Grey Avilez Fac ility:[id number] Start: 05-18-2022 Office outpatient ne w 45 minutes Iqra Rose Work Phone: AX-Amshuviefh-Dndjpt d [address] [place] Work Phone: Start: 05-11-2022 Patient encounter procedure [facility]qra Rose [facility] Start: 05-11-2022 ambulatory Ms. Rosey Lan Facility:[id number] Start: 05-09-2022 End: 05-09-2022 ambulatory Provider Not In System [facility] Speech Therapy Comment on above: Aphonia (Primary Dx) Start: 05-04-2022 Non-patient / Non-visit [facility] Work Phone: [facility] Start: 05-04-2022 Non-patient / Non-visit [facility] Work Phone: [facility] Start: 05-03-2022 Non-patient / Non-visit [facility] Work Phone: [facility] Start: 05-03-2022 Non-patient / Non-visit [facility] Work Phone: [facility] Start: 05-02-2022 Non-patient / Non-visit [facility] Work Phone: [facility] Start: 05-02-2022 Non-patient / Non-visit [facility] Work Phone: [facility] Start: 05-02-2022 Non-patient / Non-visit [facility] Work Phone: [facility] Start: 05-01-2022 Non-patient / Non-visit [facility] Work Phone: [facility] Start: 05-01-2022 Non-patient / Non-visit [facility] Work Phone: [facility] Start: 04-30-2022 Non-patient / Non-visit [facility] Work Phone: [facility] Start: 04-30-2022 Non-patient / Non-visit [facility] Work Phone: [facility] Start: 04-29-2022 Non-patient / Non-visit [facility] Work Phone: [facility] Start: 04-29-2022 End: 05-04-2022 Evaluation and management of inpatient [facility] Start: 04-28-2022 Non-patient / Non-visit [facility] Work Phone: [facility] Start: 04-27-2022 Non-patient / Non-visit [facility] Work Phone: [facility] Start: 04-26-2022 Non-patient / Non-visit [facility] Work Phone: [facility] Start: 04-26-2022 Non-patient / Non-visit [facility] Work Phone: [facility] Start: 04-26-2022 End: 04-28-2022 Evaluation and management of inpatient [facility] Work Phone: [facility] Surgical 3 Start: 04-25-2022 End: 04-26-2022 Emergency department patient visit Jerrod Hale [facility] Emergency 04 Start: 04-13-2022 Chart Update Iqra Rose Work Phone: [facility] Work Phone: Start: 04-07-2022 Patient encounter procedure Iqra Rose Work Phone: [facility] Work Phone: Start: 04-07-2022 ambulatory Ms. Rosey guido [place] Facility:[id number] Start: 04-01-2022 AUDIT Iqra Rose Work Phone: [facility] Work Phone: Start: 02-14-2022 Patient encounter procedure Iqra Rose Work Phone: [facility] Work Phone: Start: 02-07-2022 End: 02-07-2022 ambulatory Provider Not In System [facility] Speech Therapy Comment on above: Hx of laryngectomy; Aphonia Start: 02-04-2022 End: 02-04-2022 Patient encounter procedure Anjum Daniel MD Work Phone: [facility] Comment on above: White matter abnorma lity on MRI of brain Start: 02-03-2022 End: 02-03-2022 Patient encounter procedure [facility] Start: 01-24-2022 End: 01-24-2022 Admission to same day surgery [facility] Start: 01-11-2022 Transcribe Orders Provider Not In System [facility] Speech Therapy Comment on above: Hx of laryngectomy ( Primary Dx); Aphonia Start: 01-03-2022 Patient encounter procedure Iqra Rose Work Phone: [facility] Work Phone: Start: 02-08-2022 Chart Update Iqra Rose Work Phone: [facility] Work Phone: Start: 12-14-2021 AUDIT Iqra Rose Work Phone: [facility] Work Phone: Start: 12-02-2021 Non-patient / Non-visit [facility] Work Phone: [facility] Start: 11-22-2021 Patient encounter procedure Iqra Rose Work Phone: [facility] [place] Work Phone: Start: 11-01-2021 Patient encounter procedure Iqra Rose Work Phone: [facility] Work Phone: Start: 10-28-2021 Chart Update Iqra Rose Work Phone: [facility] Work Phone: Start: 10-26-2021 Patient encounter procedure Iqra Rose Work Phone: [facility] Work Phone: Start: 01-26-2021 End: 01-26-2021 Orders Only Charo Riley Diannaeva Work Phone: [facility] Start: 11-30-2020 End: 11-30-2020 Patient encounter procedure Iqra Ledesma [place] Work Phone: [facility] Speech Therapy Comment on above: History of laryngect letty; Aphonia Start: 11-09-2020 End: 11-09-2020 Patient encounter procedure Iqra Kay [place] Work Phone: [facility] Speech Therapy Comment on above: History of laryngect letty Start: 06-29-2020 End: 06-29-2020 Patient encounter procedure IQRA ROSE [facility] Start: 10-08-2019 End: 10-08-2019 Patient encounter procedure [facility] Speech Therapy Comment on above: Aphonia (Primary Dx) Start: 09-25-2019 End: 09-25-2019 Patient encounter procedure [facility] Speech Therapy Comment on above: Aphonia Start: 07-27-2019 End: 07-27-2019 Patient encounter procedure [facility] Speech Therapy Comment on above: Aphonia Start: 06-17-2019 End: 06-17-2019 Patient encounter procedure [facility] Speech Therapy Comment on above: Aphonia Start: 10-13-2018 Patient encounter procedure Rolly Pantoja [facility] Start: 08-20-2018 Patient encounter procedure Rolly Pantoja [facility] Start: 07-04-2018 Patient encounter procedure Blas Pantoja Facility:[facility] Start: 04-03-2018 Patient encounter procedure Blas Pantoja Facility[facility] Start: 04-03-2018 End: 04-03-2018 Ambulatory [facility] Start: 02-21-2018 Patient encounter procedure Rolly Pantoja Facility[facility] Start: 07-10-2017 End: 07-10-2017 Ambulatory [facility] Start: 12-06-2016 End: 12-06-2016 Patient encounter procedure [facility] Patient encounter status Iqra Rose Work Phone: [facility] Work Phone: Procedures Date Procedure Procedure Detail Performing Clinician Start: 08-14-2025 Thyrotropin [Units/volume] in Serum or Plasma Michelle Bond MD Work Phone: Start: 07-16-2025 PULSE OXIMETRY, CONTINUOUS Dipak Moore MD Work Phone: Start: 06-30-2025 Lipid 1996 panel - S eula or Plasma Huma Thomas DO Work Phone: Start: 06-26-2025 End: 06-26-2025 Renal function panel Jeimy Batista MD Work Phone: Start: 06-26-2025 Glucose quantitative blood xcpt reagent strip Beatris Neil DO Work Phone: Start: 06-25-2025 Glucose quantitative blood xcpt reagent strip Beatris L Jolynn DO Work Phone: Start: 06-25-2025 Renal function panel No gemini Batista MD Work Phone: Start: 06-25-2025 Glucose quantitative blood xcpt reagent strip Beatris L Jolynn DO Work Phone: Start: 06-25-2025 Glucose quantitative blood xcpt reagent strip Beatris L Jolynn DO Work Phone: Start: 06-24-2025 Glucose quantitative blood xcpt reagent strip Beatris L Jolynn DO Work Phone: Start: 06-24-2025 Glucose quantitative blood xcpt reagent strip Beatris L Jolynn DO Work Phone: Start: 06-24-2025 Glucose quantitative blood xcpt reagent strip Beatris L Jolynn DO Work Phone: Start: 06-24-2025 Renal function panel No gemini Batista MD Work Phone: Start: 06-24-2025 Glucose quantitative blood xcpt reagent strip Juan R Mendez MD Work Phone: Start: 06-23-2025 Glucose quantitative blood xcpt reagent strip Juan R Mendez MD Work Phone: Start: 06-23-2025 Glucose quantitative blood xcpt reagent strip Juan R Mendez MD Work Phone: Start: 06-23-2025 End: 06-23-2025 Renal function panel Jeimy Batista MD Work Phone: Start: 06-23-2025 End: 06-23-2025 Natriuretic peptide Michael Cheek MD Work Phone: Start: 06-23-2025 TTE Randolph garland MD MPH Work Phone: Start: 06-23-2025 Glucose quantitative blood xcpt reagent strip Juan R Mendez MD Work Phone: Start: 06-23-2025 Glucose quantitative blood xcpt reagent strip Juan R Mendez MD Work Phone: Start: 06-23-2025 Glucose quantitative blood xcpt reagent strip Juan R Mendez MD Work Phone: Start: 06-22-2025 Glucose quantitative blood xcpt reagent strip Juan R Mendez MD Work Phone: Start: 06-22-2025 Glucose quantitative blood xcpt reagent strip Jua nR Mendez MD Work Phone: Start: 06-22-2025 Ct thorax w/o contra st material Brennon Mohr MD Work Phone: Start: 06-22-2025 Glucose quantitative blood xcpt reagent strip Juan R Mendez MD Work Phone: Start: 06-22-2025 Glucose quantitative blood xcpt reagent strip Ellis Guerrero MD Work Phone: Start: 06-22-2025 Radiologic exam ches t single view Niki Freitas MD Work Phone: Start: 06-22-2025 Cul prsmptv pthgnc organism scrn w/colony estimj Niki Freitas MD Work Phone: Start: 06-22-2025 Human metapneumoviru s RNA [Presence] in Unspecified specimen by CRISTHIAN with probe detection Niki Freitas MD Work Phone: Start: 06-22-2025 Influenza virus A an d B RNA [Identifier] in Unspecified specimen by CRISTHIAN with probe detection Niki Freitas MD Work Phone: Start: 06-22-2025 Respiratory syncytia l virus RNA [Presence] in Respiratory specimen by CRISTHIAN with probe detection Niki Freitas MD Work Phone: Start: 06-22-2025 Rhinovirus RNA [Pres ence] in Upper respiratory specimen by CRISTHIAN with probe detection Niki Freitas MD Work Phone: Start: 06-22-2025 SARS-CoV-2 (COVID-19 ) RNA [Presence] in Respiratory specimen by CRISTHIAN with probe detection Niki Freitas MD Work Phone: Start: 06-22-2025 Blood typing serolog ic rh (d) Niki Freitas MD Work Phone: Start: 06-22-2025 End: 06-22-2025 Potassium serum plasma/whole blood Niki Freitas MD Work Phone: Start: 06-22-2025 PULSE OXIMETRY, CONTINUOUS Niki Freitas MD Work Phone: Start: 06-21-2025 Glucose quantitative blood xcpt reagent strip Talib Burock DO Work Phone: Start: 06-21-2025 End: 06-21-2025 Comprehensive metabolic panel Sylvia Bonilla MD Work Phone: Start: 06-21-2025 Glucose quantitative blood xcpt reagent strip Talib Burock DO Work Phone: Start: 06-21-2025 Glucose quantitative blood xcpt reagent strip Talib Burock DO Work Phone: Start: 06-20-2025 Glucose quantitative blood xcpt reagent strip Talib Burock DO Work Phone: Start: 06-20-2025 Glucose quantitative blood xcpt reagent strip Talib Burock DO Work Phone: Start: 06-20-2025 Culture bacterial quanttative colony count urine Beatris Coello PA-C Work Phone: Start: 06-20-2025 Urinalysis microscop ic panel - Urine Qualitative by Automated Beatris Coello PA-C Work Phone: Start: 06-19-2025 Gases blood ph direc t alessandro xcpt pulse oximitry Beatris Coello PA-C Work Phone: Start: 06-19-2025 Comprehensive metabo lic panel Beatris Coello PA-C Work Phone: Start: 06-19-2025 Ethanol [Mass/volume ] in Serum or Plasma Beatris Coello PA-C Work Phone: Start: 06-19-2025 Radiologic exam ches t single view Beatris Coello PA-C Work Phone: Start: 06-19-2025 Ecg routine ecg w/le ast 12 lds trcg only w/o i&r Beatris Coello PA-C Work Phone: Start: 06-17-2025 Glucose quantitative blood xcpt reagent strip Huma N Sinopoli DO Work Phone: Start: 06-17-2025 Basic metabolic pane l calcium total Nisreen Ovalles MD Work Phone: Start: 06-17-2025 Glucose quantitative blood xcpt reagent strip Huma N Sinopoli DO Work Phone: Start: 06-16-2025 Glucose quantitative blood xcpt reagent strip Huma N Sinopoli DO Work Phone: Start: 06-16-2025 Glucose quantitative blood xcpt reagent strip Huma N Sinopoli DO Work Phone: Start: 06-16-2025 Glucose quantitative blood xcpt reagent strip Huma N Sinopoli DO Work Phone: Start: 06-16-2025 Glucose quantitative blood xcpt reagent strip Huma N Sinopoli DO Work Phone: Start: 06-16-2025 Glucose quantitative blood xcpt reagent strip Huma N Sinopoli DO Work Phone: Start: 06-16-2025 Basic metabolic pane l calcium total Remi C Vokic [employer] Work Phone: Start: 06-16-2025 Glucose quantitative blood xcpt reagent strip Huma N Sinopoli DO Work Phone: Start: 06-16-2025 Radiologic exam ches t single view Remi C Vokic [employer] Work Phone: Start: 06-15-2025 Glucose quantitative blood xcpt reagent strip Huma N Sinopoli DO Work Phone: Start: 06-15-2025 Glucose quantitative blood xcpt reagent strip Huma N Sinopoli DO Work Phone: Start: 06-15-2025 Glucose quantitative blood xcpt reagent strip Huma N Sinopoli DO Work Phone: Start: 06-15-2025 Glucose quantitative blood xcpt reagent strip Huma N Sinopoli DO Work Phone: Start: 06-15-2025 Radiologic exam ches t single view [facility] Work Phone: Start: 06-15-2025 Glucose quantitative blood xcpt reagent strip Huma N Sinopoli DO Work Phone: Start: 06-15-2025 End: 06-15-2025 Renal function panel Tono madison MD Work Phone: Start: 06-15-2025 Thyrotropin [Units/volume] in Serum or Plasma Huma Sinopoli DO Work Phone: Start: 06-15-2025 Glucose quantitative blood xcpt reagent strip Huma N Sinopoli DO Work Phone: Start: 06-14-2025 Glucose quantitative blood xcpt reagent strip Huma N Sinopoli DO Work Phone: Start: 06-14-2025 Glucose quantitative blood xcpt reagent strip Huma N Sinopoli DO Work Phone: Start: 06-14-2025 Glucose quantitative blood xcpt reagent strip Huma N Sinopoli DO Work Phone: Start: 06-14-2025 Glucose quantitative blood xcpt reagent strip Huma N Sinopoli DO Work Phone: Start: 06-14-2025 Glucose quantitative blood xcpt reagent strip Huma N Sinopoli DO Work Phone: Start: 06-14-2025 Glucose quantitative blood xcpt reagent strip Huma N Sinopoli DO Work Phone: Start: 06-13-2025 End: 06-13-2025 Glucose quantitative blood xcpt reagent strip Huma N Sinopoli DO Work Phone: Start: 06-13-2025 Glucose quantitative blood xcpt reagent strip Huma N Sinopoli DO Work Phone: Start: 06-13-2025 Glucose quantitative blood xcpt reagent strip Huma N Sinopoli DO Work Phone: Start: 06-13-2025 Glucose quantitative blood xcpt reagent strip Huma N Sinopoli DO Work Phone: Start: 06-13-2025 Glucose quantitative blood xcpt reagent strip Huma N Sinopoli DO Work Phone: Start: 06-13-2025 End: 06-13-2025 Renal function panel Lissy HANKS-Kelsey Work Phone: Start: 06-12-2025 Glucose quantitative blood xcpt reagent strip Huma N Sinopoli DO Work Phone: Start: 06-12-2025 Glucose quantitative blood xcpt reagent strip Huma N Sinopoli DO Work Phone: Start: 06-12-2025 End: 06-12-2025 Glucose quantitative blood xcpt reagent strip Lissy HANKS-Kelsey Work Phone: Start: 06-12-2025 Radiologic exam ches t single view Lissy Carlin PA-C Work Phone: Start: 06-12-2025 End: 06-12-2025 Egd endoscopic stent placement w/wire& dilation Huma N Sinopoli DO Work Phone: Start: 06-12-2025 End: 06-12-2025 Egd percutaneous placement gastrostomy tube Huma N Sinopoli DO Work Phone: Start: 06-12-2025 Radiologic exam ches t single view Shad P Brionna DO Work Phone: Start: 06-12-2025 Calcium ionized Lissy nazario PA-C Work Phone: Start: 06-12-2025 Glucose quantitative blood xcpt reagent strip Huma N Sinopoli DO Work Phone: Start: 06-12-2025 End: 06-12-2025 Glucose quantitative blood xcpt reagent strip Huma N Sinopoli DO Work Phone: Start: 06-12-2025 Glucose quantitative blood xcpt reagent strip Huma N Sinopoli DO Work Phone: Start: 06-12-2025 Smr prim src gram/gi emsa stain bct fungi/cell Lulú Ponce MD Work Phone: Start: 06-12-2025 Blood typing serolog ic rh (d) Lulú Ponce MD Work Phone: Start: 06-12-2025 End: 06-12-2025 Renal function panel Lissy Carlin PA-C Work Phone: Start: 06-11-2025 Comprehensive metabo lic panel Talib Maza DO Work Phone: Start: 06-10-2025 Ct soft tissue neck w/contrast material Anne Gonzales DO Work Phone: Start: 06-10-2025 Ct thorax w/contrast material Anne Gonzales DO Work Phone: Start: 06-10-2025 NASOTRACHEAL SUCTIONING Talib Burock DO Work Phone: Start: 06-10-2025 NASOTRACHEAL SUCTIONING Talib Burock DO Work Phone: Start: 06-10-2025 NASOTRACHEAL SUCTIONING Talib Burock DO Work Phone: Start: 06-10-2025 NASOTRACHEAL SUCTIONING Talib Burock DO Work Phone: Start: 06-10-2025 Comprehensive metabo lic panel Talib Maza DO Work Phone: Start: 06-10-2025 Blood count complete automated Lucretia Mcfarland MD Work Phone: Start: 06-09-2025 NASOTRACHEAL SUCTIONING Talib Maza DO Work Phone: Start: 06-09-2025 NASOTRACHEAL SUCTIONING Talib Maza DO Work Phone: Start: 06-09-2025 End: 06-09-2025 TRANSFUSE RED BLOOD CELLS Lucretia Madison Work Phone: Start: 06-09-2025 NASOTRACHEAL SUCTIONING Talib Maza DO Work Phone: Start: 06-09-2025 Radiologic exam swal low function contrast study Talib Maza DO Work Phone: Start: 06-09-2025 NASOTRACHEAL SUCTIONING Talib Maza DO Work Phone: Start: 06-09-2025 Blood typing serolog ic rh (d) Lucretia Mcfarland MD Work Phone: Start: 06-09-2025 VERAB/VERIFY ABORH Soheila Mcfarland MD Work Phone: Start: 06-09-2025 PREPARE RBC Lucretia krueger MD Work Phone: Start: 06-09-2025 NASOTRACHEAL SUCTIONING Talib Maza DO Work Phone: Start: 06-09-2025 End: 06-09-2025 NASOTRACHEAL SUCTIONING Talib Maza DO Work Phone: Start: 06-09-2025 Comprehensive metabo lic panel Talib Maza DO Work Phone: Start: 06-08-2025 Cul prsmptv pthgnc organism scrn w/colony estimj Anne Gonzales DO Work Phone: Start: 06-08-2025 Comprehensive metabo lic panel Talib Burock DO Work Phone: Start: 06-07-2025 Radiologic exam ches t single view Talib Burock DO Work Phone: Start: 06-07-2025 EXTRA TUBES Talib B urock DO Work Phone: Start: 06-07-2025 GREEN TOP Talib B urock DO Work Phone: Start: 06-07-2025 LAVENDER TOP Talib B urock DO Work Phone: Start: 06-07-2025 LIGHT BLUE TOP Talib Burock DO Work Phone: Start: 06-07-2025 SST TOP Talib B urock DO Work Phone: Start: 06-07-2025 End: 06-07-2025 Assay of ferritin Anne العلي Fernie DO Work Phone: Start: 06-07-2025 Radiologic exam ches t single view Talib Milagro DO Work Phone: Start: 06-07-2025 Acute hepatitis panel N kandice Maza DO Work Phone: Start: 06-07-2025 End: 06-07-2025 Comprehensive metabolic panel Sylvia Bonilla MD Work Phone: Start: 06-06-2025 Gases blood ph direc t alessandro xcpt pulse oximitry Sylvia Bonilla MD Work Phone: Start: 06-06-2025 Assay of lactate Mel Bonilla MD Work Phone: Start: 06-06-2025 End: 06-06-2025 Comprehensive metabolic panel Sylvia Bonilla MD Work Phone: Start: 06-06-2025 Gases blood ph direc t alessandro xcpt pulse oximitry Sylvia Bonilla MD Work Phone: Start: 06-06-2025 Blood count hematocrit Talib Milagro DO Work Phone: Start: 06-06-2025 EXTRA TUBES Talib Magdaleno urock DO Work Phone: Start: 06-06-2025 SST TOP Talib Magdaleno urock DO Work Phone: Start: 06-06-2025 Prothrombin time Rachel Maza DO Work Phone: Start: 06-06-2025 Comprehensive metabo lic panel Sylvia Bonilla MD Work Phone: Start: 06-06-2025 Drug screen quantita tive vancomycin Fuentes Sheehan [facility] Work Phone: Start: 06-06-2025 RESPIRATORY CARE EVALUATION ONLY Sylvia Bonilla MD Work Phone: Start: 06-05-2025 EXTRA TUBES Bartolo W Swi ft DO Work Phone: Start: 06-05-2025 LAVENDER TOP Bartolo W Swi ft DO Work Phone: Start: 06-05-2025 PST TOP Bartolo W Swi ft DO Work Phone: Start: 06-05-2025 Assay of lactate Kather ine C Bilderback [employer] Work Phone: Start: 06-05-2025 Culture bacterial quanttative colony count urine Manny C Bilderback [employer] Work Phone: Start: 06-05-2025 Urinalysis microscop ic panel - Urine Qualitative by Automated Manny C Bilderback [employer] Work Phone: Start: 06-05-2025 Assay of ammonia Kather ine C Bilderback [employer] Work Phone: Start: 06-05-2025 Ct thorax w/o contra st material Manny C Bilderback [employer] Work Phone: Start: 06-05-2025 Ct cervical spine w/ o contrast material Manny C Bilderback [employer] Work Phone: Start: 06-05-2025 Ct head/brain w/o contrast material Manny C Bilderback [employer] Work Phone: Start: 06-05-2025 Radiologic exam ches t single view Manny Allen [employer] Work Phone: Start: 06-05-2025 EXTRA TUBES Manny Allen [employer] Work Phone: Start: 06-05-2025 SST TOP Manny Allen [employer] Work Phone: Start: 06-05-2025 Ecg routine ecg w/le ast 12 lds trcg only w/o i&r Sylvia Bonilla MD Work Phone: Start: 06-05-2025 Comprehensive metabo lic panel Manny Allen [employer] Work Phone: Start: 06-05-2025 End: 06-05-2025 Culture bacterial blood aerobic w/id isolates Manny Allen [employer] Work Phone: Start: 06-05-2025 Ethanol [Mass/volume ] in Serum or Plasma Manny Allen [employer] Work Phone: Start: 01-12-2025 Urnls dip stick/tabl et rgnt auto w/o microscopy Beatris DUNHAMC Work Phone: Start: 01-12-2025 Ct thorax w/o contra st material Beatris DUNHAMC Work Phone: Start: 01-12-2025 Radiologic exam ches t single view Beatris DUNHAMC Work Phone: Start: 01-12-2025 Influenza virus A an d B RNA [Identifier] in Unspecified specimen by CRISTHIAN with probe detection Beatris Coello PA-C Work Phone: Start: 01-12-2025 SARS-CoV-2 (COVID-19 ) RNA [Presence] in Respiratory specimen by CRISTHIAN with probe detection Beatris Coello PA-C Work Phone: Start: 01-12-2025 Comprehensive metabo lic panel Beatris Coello PA-C Work Phone: Start: 01-12-2025 Ecg routine ecg w/le ast 12 lds trcg only w/o i&r Beatris Coello PA-C Work Phone: Start: 01-10-2025 Ct soft tissue neck w/o contrast material Lucretia Mcfarland MD Work Phone: Start: 01-10-2025 Basic metabolic pane l calcium total Lucretia Mcfarland MD Work Phone: Start: 01-09-2025 Basic metabolic pane l calcium total Lucretia Mcfarland MD Work Phone: Start: 01-08-2025 Assay of troponin quantitative Neeru Wolff [employer] Work Phone: Start: 01-08-2025 EXTRA TUBES Jose Suero MD Work Phone: Start: 01-08-2025 LAVENDER TOP Jose Suero MD Work Phone: Start: 01-08-2025 Basic metabolic pane l calcium total Jose Suero MD Work Phone: Start: 01-07-2025 Radex ankle complete minimum 3 views Jose Suero MD Work Phone: Start: 01-07-2025 RESPIRATORY CARE EVALUATION ONLY Jose Suero MD Work Phone: Start: 01-07-2025 Ecg routine ecg w/le ast 12 lds trcg only w/o i&r Jerrod Hale DO Work Phone: Start: 01-07-2025 Assay of troponin quantitative Eliazar Nolan DO Work Phone: Start: 01-07-2025 Drug tst prsmv instr mnt chem analyzers pr date Eliazar Nolan DO Work Phone: Start: 01-07-2025 Radiologic exam ches t single view Eliazar Nolan DO Work Phone: Start: 01-07-2025 Ct head/brain w/o contrast material Eliazar Nolan [employer] Work Phone: Start: 01-07-2025 Culture bacterial quanttative colony count urine Eliazar Nolan [employer] Work Phone: Start: 01-07-2025 EXTRA URINE WALDRON TUBE S margarita Nolan [employer] Work Phone: Start: 01-07-2025 Urinalysis complete W Reflex Culture panel - Urine Eliazar Nolan [employer] Work Phone: Start: 01-07-2025 Urinalysis microscop ic panel - Urine Qualitative by Automated Eliazar Nolan [employer] Work Phone: Start: 01-07-2025 Influenza virus A an d B RNA [Identifier] in Unspecified specimen by CRISTHIAN with probe detection Eliazar Nolan [employer] Work Phone: Start: 01-07-2025 SARS-CoV-2 (COVID-19 ) RNA [Presence] in Respiratory specimen by CRISTHIAN with probe detection Eliazar Nolan [employer] Work Phone: Start: 01-07-2025 End: 01-07-2025 Basic metabolic panel calcium total Eliazar Nolan [employer] Work Phone: Start: 01-07-2025 Ethanol [Mass/volume ] in Serum or Plasma Eliazar Nolan [employer] Work Phone: Start: 01-07-2025 Troponin I.cardiac p bk - Serum or Plasma by High sensitivity method Eliazar Nolan [employer] Work Phone: Start: 01-07-2025 Ecg routine ecg w/le ast 12 lds trcg only w/o i&r Eliazar Nolan [employer] Work Phone: Start: 05-29-2024 Drug tst prsmv instr mnt chem analyzers pr date Jeronimo Dolan MD Work Phone: Start: 05-29-2024 Urinalysis microscop ic panel - Urine Qualitative by Automated Jeronimo Dolan MD Work Phone: Start: 05-29-2024 Urnls dip stick/tabl et reagent auto microscopy Jeronimo Dolan MD Work Phone: Start: 05-29-2024 EXTRA TUBES Jeronimo casas MD Work Phone: Start: 05-29-2024 SST TOP Jeronimo casas MD Work Phone: Start: 05-29-2024 End: 05-29-2024 Comprehensive metabolic panel Jeronimo Dolan MD Work Phone: Start: 05-29-2024 Ethanol [Mass/volume ] in Serum or Plasma Jeronimo Dolan MD Work Phone: Start: 05-29-2024 Ct cervical spine w/ o contrast material Jeronimo Dolan MD Work Phone: Start: 05-29-2024 Ct head/brain w/o contrast material Jeronimo Dolan MD Work Phone: Start: 05-29-2024 Radiologic exam ches t single view Jeronimo Dolan MD Work Phone: Start: 05-29-2024 Ecg routine ecg w/le ast 12 lds trcg only w/o i&r Jeronimo Dolan MD Work Phone: Start: 04-19-2024 Urinalysis microscop ic panel - Urine Qualitative by Automated Jerrod Hale DO Work Phone: Start: 04-19-2024 Urnls dip stick/tabl et reagent auto microscopy Jerrod Hale DO Work Phone: Start: 04-19-2024 End: 04-19-2024 Comprehensive metabolic panel Jerrod Hale DO Work Phone: Start: 04-19-2024 Troponin I.cardiac p bk - Serum or Plasma by High sensitivity method Jerrod Hale DO Work Phone: Start: 04-19-2024 Iadna dna/rna rsv amplified probe technique Jerrod Hale DO Work Phone: Start: 04-19-2024 Sars-cov-2 detection by dna/rna Jerrod Hale DO Work Phone: Start: 04-19-2024 Radiologic exam ches t single view Jerrod Hale DO Work Phone: Start: 04-19-2024 Ct head/brain w/o contrast material Jerrod Hale DO Work Phone: Start: 04-19-2024 Ecg routine ecg w/le ast 12 lds trcg only w/o i&r Jerrod Hale DO Work Phone: Start: 04-08-2024 Ct cervical spine w/ o contrast material Jerrod Hale DO Work Phone: Start: 04-08-2024 Ct head/brain w/o contrast material Jerrod Hale DO Work Phone: Start: 04-08-2024 Basic metabolic pane l calcium total Jerrod Hale DO Work Phone: Start: 02-02-2024 Urinalysis microscop ic panel - Urine Qualitative by Automated Ton Lin DO Work Phone: Start: 02-02-2024 Urnls dip stick/tabl et reagent auto microscopy Ton Lin DO Work Phone: Start: 02-02-2024 Ct cervical spine w/ o contrast material Ton Lin DO Work Phone: Start: 02-02-2024 Ct head/brain w/o contrast material Ton Lin DO Work Phone: Start: 02-02-2024 Ecg routine ecg w/le ast 12 lds trcg only w/o i&r Ton Lin DO Work Phone: Start: 02-02-2024 Radex hip unilateral with pelvis 2-3 views Ton Lin DO Work Phone: Start: 02-02-2024 Comprehensive metabo lic panel Ton Lin DO Work Phone: Start: 12-04-2023 H/O: tracheostomy Tracheostomy status (CMS/[facility]) Blas Zelaya MD MPH Work Phone: Start: 11-17-2023 Ct thorax w/o contra st material Sonja Pryor Other Phone: Start: 11-02-2023 Thyrotropin [Units/volume] in Serum or Plasma Abhi 1 Start: 11-01-2023 Sars-cov-2 detection by dna/rna Karsten Davila MD Work Phone: Start: 10-31-2023 EXTRA TUBES Lucretia A Ra evans MERINO Work Phone: Start: 10-31-2023 LAVENDER TOP Lucretia krueger MD Work Phone: Start: 10-31-2023 Basic metabolic pane l calcium total Anne Gonzales DO Work Phone: Start: 10-30-2023 End: 10-30-2023 Basic metabolic panel calcium total Anne العلي Young DO Work Phone: Start: 10-29-2023 CAPNOGRAPHY Anne العلي Yo sumit DO Work Phone: Start: 10-29-2023 EXTRA TUBES Juliofiagnieszka A Ra evans MERINO Work Phone: Start: 10-29-2023 LAVENDER TOP Lucretia krueger MD Work Phone: Start: 10-29-2023 Basic metabolic pane l calcium total Anne العلي Young DO Work Phone: Start: 10-28-2023 Basic metabolic pane l calcium total Anne العلي Young DO Work Phone: Start: 10-27-2023 CAPNOGRAPHY Anne العلي Yo sumit DO Work Phone: Start: 10-27-2023 Basic metabolic pane l calcium total Karsten Davila MD Work Phone: Start: 10-27-2023 Drug screen quantita tive vancomycin Jose Suero MD Work Phone: Start: 10-26-2023 CAPNOGRAPHY Anne M Yo sumit DO Work Phone: Start: 10-26-2023 NASOTRACHEAL SUCTIONING David Branham MD Work Phone: Start: 10-26-2023 Basic metabolic pane l calcium total Karsten Davila MD Work Phone: Start: 10-26-2023 Drug screen quantita tive vancomycin Jose Suero MD Work Phone: Start: 10-25-2023 Ecg routine ecg w/le ast 12 lds trcg only w/o i&r Karsten Davila MD Work Phone: Start: 10-25-2023 Drug screen quantita tive vancomycin Jose Suero MD Work Phone: Start: 10-25-2023 Basic metabolic pane l calcium total Karsten Davila MD Work Phone: Start: 10-24-2023 Gases blood ph direc t alessandro xcpt pulse oximitry Anne Gonzales DO Work Phone: Start: 10-24-2023 CAPNOGRAPHY Anne العلي Deyvi sumit DO Work Phone: Start: 10-24-2023 NASOTRACHEAL SUCTIONING David Branham MD Work Phone: Start: 10-24-2023 Procalcitonin (pct) Cory Davila MD Work Phone: Start: 10-24-2023 Comprehensive metabo lic panel Anne Gonzales DO Work Phone: Start: 10-24-2023 Drug screen quantita tive vancomycin Jose Suero MD Work Phone: Start: 10-24-2023 Thyrotropin [Units/volume] in Serum or Plasma David Branham MD Work Phone: Start: 10-23-2023 CAPNOGRAPHY Anne العلي Yo sumit DO Work Phone: Start: 10-23-2023 NASOTRACHEAL SUCTIONING David Branham MD Work Phone: Start: 12-04-2023 Gases blood ph direc t alessandro xcpt pulse oximitry Anne Gonzales DO Work Phone: Start: 10-23-2023 Gases blood ph direc t alessandro xcpt pulse oximitry Anne Gonzales DO Work Phone: Start: 10-23-2023 CAPNOGRAPHY Anne Carnes sumit DO Work Phone: Start: 10-23-2023 Smr prim src gram/gi emsa stain bct fungi/cell Jose Suero MD Work Phone: Start: 10-23-2023 Chloride nitzad Lucretia krueger MD Work Phone: Start: 10-23-2023 Iadna s aureus methicillin resist amp probe tq Jose Suero MD Work Phone: Start: 10-23-2023 Calcium ionized Jose Suero MD Work Phone: Start: 10-22-2023 Influenza virus A an d B RNA [Identifier] in Unspecified specimen by CRISTHIAN with probe detection David Branham MD Work Phone: Start: 10-22-2023 SARS-CoV-2 (COVID-19 ) RNA [Presence] in Respiratory specimen by CRISTHIAN with probe detection David Branham MD Work Phone: Start: 10-22-2023 Basic metabolic pane l calcium total David Branham MD Work Phone: Start: 10-22-2023 Culture bacterial bl ood aerobic w/id isolates David Branham MD Work Phone: Start: 10-22-2023 Radiologic exam ches t single view David Branham MD Work Phone: Start: 10-22-2023 Influenza virus A an d B RNA [Identifier] in Unspecified specimen by CRISTHIAN with probe detection David Branham MD Work Phone: Start: 10-22-2023 Respiratory syncytia l virus RNA [Presence] in Respiratory specimen by CRISTHIAN with probe detection David Branham MD Work Phone: Start: 10-22-2023 SARS-CoV-2 (COVID-19 ) RNA [Presence] in Respiratory specimen by CRISTHIAN with probe detection David Branham MD Work Phone: Start: 04-30-2022 Plain chest X-ray [facility] Work Phone: Start: 04-29-2022 Plain chest X-ray [facility] Work Phone: Start: 04-26-2022 Respiratory Panel (PCR) [facility] Work Phone: Start: 04-25-2022 End: 04-25-2022 EKG impression Jerrod Hale Start: 01-24-2022 End: 01-24-2022 Viral antigen assay [facility] Work Phone: Start: 12-02-2021 SARS-CoV-2 Antigen (Rapid) [facility] Work Phone: Start: 11-09-2021 Injection of steroid into joint Iqra Larios Milton Work Phone: Comment on above: Bilat SIJ; Start: 10-07-2014 Mammography Anjum perry MD Work Phone: section Iqra De La Rosa is Work Phone: Comment on above: x3; Clostridium difficil e detection Enteric Bacteriology H/O: tracheostomy Tracheostomy s tatus (Multi) Blas Pasquale S Nathalie MERINO MPH Work Phone: Hernia repair Iqra Larios Milton Work Phone: Investigation of transfusion reaction [facility] Work Phone: Lactoferrin measurement Operation on bladder Iqra Larios Milton Work Phone: Respiratory microbia l culture [facility] Work Phone: Respiratory Panel (PCR) [facility] Work Phone: SARS-CoV-2 Antigen (Rapid) [facility] Work Phone: Surgical procedure Iqra Keys ewmelissa Work Phone: Comment on above: [place] [facility] [place]al antigen assay Soco Caicedo [facility] Work Phone: Plan of Treatment Date Care Activity Detail Author Start: 06-30-2030 Lipid panel Lipid Panel [facility] Start: 2030 RSV patients and/or patients aged 60+ years (1 - 1-dose 60+ series) RSV patients and/or patients aged 60+ years (1 - 1-dose 60+ series) [facility] Start: 08-14-2026 Thyroid stimulating hormone measurement TSH Level [facility] Start: 07-14-2026 Diabetes mellitus screening Diabetes Screening [facility] Start: 06-26-2026 Diabetes mellitus screening Diabetes Screening [facility] Start: 06-21-2026 Diabetes mellitus screening Diabetes Screening [facility] Start: 06-17-2026 Diabetes mellitus screening Diabetes Screening [facility] Start: 06-15-2026 Thyroid stimulating hormone measurement TSH Level [facility] Start: 06-11-2026 Diabetes mellitus screening [facility] Start: 06-05-2026 Thyroid stimulating hormone measurement [facility] Start: 03-16-2026 End: 03-16-2026 Patient encounter procedure 03/16/2026 8:45 AM EDT Office Visit [facility] [address] [facility] [address] [place] [address] [place] [address] [place] [address] [facility] Start: 01-07-2026 Diabetes mellitus screening Diabetes Screening [facility] Start: 09-15-2025 End: 09-15-2025 Patient encounter procedure 09/15/2025 10:00 AM EDT Office Visit [facility] [address] [facility] [address] [place] [address] [place] [address] [place] [address] [facility] Start: 08-11-2025 End: 08-11-2026 TSH with reflex to Free T4 if abnormal TSH with reflex to Free T4 if abnormal Lab Routine Other specified hypothyroidism Expected: 08/11/2025 (Approximate), Expires: 08/11/2026 [facility] Service Area Work Phone: Comment on above: Expected: 08/11/2025 (Approximate), Expi res: 08/11/2026 Start: 08-11-2025 End: 08-11-2025 Patient encounter procedure 08/11/2025 10:30 AM EDT Office Visit [facility] [address] [place] [address] [place] [address] [place] [address] [facility] Start: 07-29-2025 End: 07-29-2025 Patient encounter procedure 07/29/2025 1:30 PM EDT Office Visit [facility] [address] [facility] [address] [place] [address] [place] [address] [place], [place] [id number] [facility] Start: 07-21-2025 COVID-19 Vaccine ( season) COVID-19 Vaccine ( season) [facility] Start: 07-21-2025 COVID-19 Vaccine ( season) COVID-19 Vaccine ( season) [facility] Start: 07-21-2025 Influenza vaccination [facility] Start: 07-16-2025 End: 07-16-2025 Admission to same day surgery center 07/16/2025 7:55 AM EDT - 07/16/2025 9:20 AM EDT Surgery [facility] [place] [address] [place] [address] [place] [address] [place], [place] [id number] EGD, WITH STENT INSERTION [87378 (CPT )] [facility] [place] Comment on above: EGD, WITH STENT INSERTION [99124 (CPT )] Start: 07-16-2025 End: 07-16-2025 [facility] dx w/cell washg spx BRONCHOSCOPY, FLEXIBLE 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/16/2025 7:55 AM EDT Virtual [facility] [place] Start: 07-16-2025 End: 07-16-2025 Egd endoscopic stent placement w/wire& dilation EGD, WITH STENT INSERTION 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/16/2025 7:55 AM EDT Virtual [facility] [place] Start: 07-16-2025 Subsequent hospital visit by physician 07/16/2025 6:25 AM EDT Hospital Encounter [facility] [place] [address] [place] [address] [place] [address] [place] [address] [facility] [place] Start: 06-27-2025 End: 06-27-2025 Patient encounter procedure 06/27/2025 1:30 PM EDT Office Visit [facility] [address] [place] [address] [place] [address] [place] [address] [facility] Start: 06-24-2025 End: 06-24-2025 Patient encounter procedure 06/24/2025 2:15 PM EDT Office Visit [facility] [address] [place] [address] [place] [phone] [place] [address] [place] [address] [facility] Start: 06-20-2025 Influenza vaccination Influenza Vaccine (#1) [facility] Start: 11-02-2024 Thyroid stimulating hormone measurement TSH Level [facility] Start: 10-24-2024 Thyroid stimulating hormone measurement TSH Level [facility] Start: 09-26-2024 End: 09-26-2024 Patient encounter procedure 09/26/2024 10:00 AM EST Office Visit [facility] [address] [facility] [address] [place] [id number] Rafa Carrillo MD [address] [facility], [facility] [address] [place] [address] [facility] Start: 07-21-2024 COVID-19 Vaccine ( season) COVID-19 Vaccine ( season) [facility] Start: 07-21-2024 Influenza vaccination [facility] Start: 07-21-2024 [facility] Start: 05-20-2024 End: 05-20-2024 Patient encounter procedure 05/20/2024 2:20 PM EDT Office Visit [facility] [address] [id number] [place] [address] [place] [address] [facility] Start: 2024 End: 2024 Patient encounter procedure 2024 5:00 PM EDT Office Visit [facility] [address] [facility] [address] [place] [id number] Blas Zelaya MD MPH [address] [facility], [facility] [address] [place] [address] [facility] Start: 04-25-2024 End: 04-25-2024 Patient encounter procedure 04/25/2024 9:45 AM EDT Office Visit [facility] Medical [facility] Building [address] [place] [phone] Rosey Lan PA-C [address] [place], [place] [id number] [facility] Start: 04-23-2024 End: 04-23-2024 Patient encounter procedure 04/23/2024 1:30 PM EDT Office Visit [facility] [address] [place] [address] Anne Gonzales, [address] [place] [id number] [facility] Start: 03-25-2024 Blood chemistry [facility] Start: 03-24-2024 Blood chemistry [facility] Start: 03-23-2024 Blood chemistry [facility] Start: 03-22-2024 Patient discharge [facility] Start: 03-22-2024 Care planning and problem solving actions [facility] Start: 03-21-2024 Following clinical pathway protocol [facility] Start: 03-21-2024 Assessment of risk of venous thromboembolism [facility] Start: 03-21-2024 Continuous pulse oximetry [facility] Start: 03-21-2024 Incentive spirometry [facility] Start: 03-21-2024 Insertion of catheter into peripheral vein [facility] Start: 03-21-2024 Measuring intake and output [facility] Start: 03-21-2024 Notification of physician [facility] Start: 03-21-2024 Oxygen therapy [facility] Start: 03-21-2024 Providing care according to standard [facility] Start: 03-21-2024 Provision of activity privileges [facility] Start: 03-21-2024 Vital signs measurements [facility] Start: 03-21-2024 [facility] Start: 03-21-2024 Referral to service [facility] Start: 03-21-2024 Verification routine [facility] Start: 03-21-2024 Admission procedure [facility] Start: 03-21-2024 Hospital admission, emergency, from emergency room, medical nature [facility] Start: 03-21-2024 [facility] Start: 03-21-2024 Consultation [facility] Start: 03-11-2024 End: 03-11-2024 Patient encounter procedure 03/11/2024 3:00 PM EDT Office Visit [facility] [address] [place] [phone] Blas Zelaya MD MPH [address] [facility], [place] [address] [place] [address] [facility] Start: 12-25-2023 End: 12-25-2023 Patient encounter procedure 12/25/2023 10:30 AM EST Office Visit [facility] [address] [place] [phone] Erik Lim, [address] [facility], [address] [place] [address] [facility] Start: 12-04-2023 End: 12-04-2024 Basic metabolic 2000 panel - Serum or Plasma Basic Metabolic Panel Lab Routine Stage 4 chronic kidney disease (CMS/HCC) Expected: 12/04/2023 (Approximate), Expires: 12/04/2024 [facility] Service Area Work Phone: Comment on above: Expected: 12/04/2023 (Approximate), Expi res: 12/04/2024 Start: 12-04-2023 End: 12-04-2024 Hemoglobin A1c/Hemoglobin.total in Blood Hemoglobin A1C Lab Routine Stage 4 chronic kidney disease (CMS/HCC) Alcoholism (CMS/HCC) Other specified abnormal findings of blood chemistry Expected: 12/04/2023 (Approximate), Expires: 12/04/2024 [facility] Work Phone: Comment on above: Expected: 12/04/2023 (Approximate), Expi res: 12/04/2024 Start: 12-04-2023 End: 12-04-2024 TSH with reflex to Free T4 if abnormal TSH with reflex to Free T4 if abnormal Lab Routine Hypothyroidism, unspecified type Expected: 12/04/2023 (Approximate), Expires: 12/04/2024 [facility] Work Phone: Comment on above: Expected: 12/04/2023 (Approximate), Expi res: 12/04/2024 Start: 11-03-2023 Urine screening for protein [facility] Start: 09-02-2023 Medicare Annual Wellness Visit [facility] Start: 08-23-2023 FUV, Provider: Angi Gonzales, Status: Pen, Time: 10:45 AM FUV, Provider: Angi Gonzales, Status: Pen, Time: 10:45 AM [facility] Work Phone: Start: 07-21-2023 COVID-19 Vaccine ( season) COVID-19 Vaccine ( season) [facility] Start: 07-21-2023 Influenza vaccination Influenza Vaccine (#1) [facility] Start: 03-31-2023 Patient discharge [facility] Start: 03-31-2023 Speech therapy assessment [facility] Start: 03-31-2023 Oxygen therapy [facility] Start: 03-31-2023 Assessment of risk of venous thromboembolism [facility] Start: 03-31-2023 Insertion of catheter into peripheral vein [facility] Start: 03-31-2023 Providing care according to standard [facility] Start: 03-31-2023 Provision of activity privileges [facility] Start: 03-31-2023 Referral to service [facility] Start: 03-31-2023 [facility] Start: 03-31-2023 Following clinical pathway protocol [facility] Start: 03-31-2023 Verification routine [facility] Start: 03-31-2023 Admission procedure [facility] Start: 03-31-2023 Consultation [facility] Start: 03-31-2023 Patient referral to dietitian [facility] Start: 03-30-2023 Enteric precautions [facility] Start: 03-30-2023 End: 03-31-2023 [facility] Start: 02-20-2023 FUV, Provider: Anne Gonzales, Status: Pen, Time: 11:30 AM FUV, Provider: Anne Gonzales, Status: Pen, Time: 11:30 AM [facility] Work Phone: Start: 01-30-2023 FUV, Provider: Lucila Ruff, Status: Pen, Time: 11:45 AM FUV, Provider: Lucila Ruff, Status: Pen, Time: 11:45 AM [facility] 3 DO Work Phone: Start: 01-02-2023 FUV, Provider: Anne Gonzales, Status: Pen, Time: 11:00 AM FUV, Provider: Anne Gonzales, Status: Pen, Time: 11:00 AM [facility] Work Phone: Start: 12-12-2022 FUV, Provider: Lucila Ruff, Status: Pen, Time: 10:30 AM FUV, Provider: Lucila Ruff, Status: Pen, Time: 10:30 AM [facility] Work Phone: Start: 11-30-2022 FUV, Provider: Rosey Lan, Status: Pen, Time: 11:15 AM FUV, Provider: Rosey Lan, Status: Pen, Time: 11:15 AM [facility] Work Phone: Start: 11-29-2022 FUV, Provider: Anne Gonzales, Status: Pen, Time: 10:30 AM FUV, Provider: Anne Gonzales, Status: Pen, Time: 10:30 AM [facility] Work Phone: Start: 11-17-2022 FUV, Provider: Grey Avilez, Status: Pen, Time: 11:15 AM FUV, Provider: Grey Avilez, Status: Pen, Time: 11:15 AM FB-Jbrlmmjipo-[address] Work Phone: Start: 11-09-2022 FUV, Provider: Anne Gonzales, Status: Pen, Time: 10:30 AM FUV, Provider: Anne Gonzales, Status: Pen, Time: 10:30 AM [facility] [place] 3 DO Work Phone: Start: 10-17-2022 FUV, Provider: Anne Gonzales, Status: Pen, Time: 10:30 AM FUV, Provider: Anne Gonzales, Status: Pen, Time: 10:30 AM NX[facility]dlayvf[facility] 3 DO Work Phone: Start: 10-11-2022 NPV, Provider: Anne Gonzales, Status: Pen, Time: 2:15 PM NPV, Provider: Anne Gonzales, Status: Pen, Time: 2:15 PM [facility] Work Phone: Start: 09-20-2022 NPV, Provider: Anne Gonzales, Status: Pen, Time: 11:30 AM NPV, Provider: Anne Gonzales, Status: Pen, Time: 11:30 AM [facility] Work Phone: Start: 08-17-2022 FUV, Provider: Rosey Lan, Status: Pen, Time: 10:00 AM FUV, Provider: Rosey Lan, Status: Pen, Time: 10:00 AM [facility] Work Phone: Start: 07-21-2022 Influenza vaccination [facility] Start: 06-15-2022 FUV, Provider: Rosey Lan, Status: Pen, Time: 10:00 AM FUV, Provider: Rosey Lan, Status: Pen, Time: 10:00 AM [facility] Work Phone: Start: 05-30-2022 STRESS PHA, Provider: JALIL SHARPI STRESS 1,SMCSTRESS1, Status: Pen, Time: 8:00 AM STRESS PHA, Provider: JALIL SHRAPI STRESS 1,SMCSTRESS1, Status: Pen, Time: 8:00 AM CF-Ucwxojtogs-Fdihd nd [address] Work Phone: Start: 05-18-2022 NPV, Provider: Grey Avilez, Status: Pen, Time: 10:45 AM NPV, Provider: Grey Avilez, Status: Pen, Time: 10:45 AM [facility] Work Phone: Start: 05-18-2022 Patient encounter procedure [facility] Start: 05-16-2022 FUV, Provider: Lucila Ruff, Status: Pen, Time: 10:15 AM FUV, Provider: Lucila Ruff, Status: Pen, Time: 10:15 AM [facility] Work Phone: Start: 05-10-2022 Blood chemistry [facility] Work Phone: Start: 05-09-2022 Blood chemistry [facility] Work Phone: Start: 05-08-2022 Blood chemistry [facility] Work Phone: Start: 05-07-2022 Blood chemistry [facility] Work Phone: Start: 2022 Blood chemistry [facility] Work Phone: Start: 05-05-2022 Blood chemistry [facility] Work Phone: Start: 05-04-2022 Patient discharge [facility] Work Phone: Start: 05-03-2022 FUV, Provider: Lucila Ruff, Status: Pen, Time: 11:45 AM FUV, Provider: Lucila Ruff, Status: Pen, Time: 11:45 AM [facility] Work Phone: Start: 05-03-2022 Patient encounter procedure [facility] Start: 05-03-2022 [facility] Work Phone: Start: 05-02-2022 Blood culture [facility] Work Phone: Start: 05-02-2022 Care planning and problem solving actions [facility] Work Phone: Start: 05-02-2022 Contact precautions [facility] Work Phone: Start: 05-02-2022 Inhalation therapy procedure [facility] Work Phone: Start: 05-01-2022 Blood culture [facility] Work Phone: Start: 05-01-2022 Consultation [facility] Work Phone: Start: 04-30-2022 Referral to ear, nose and throat service [facility] Work Phone: Start: 04-30-2022 Care planning and problem solving actions [facility] Work Phone: Start: 04-30-2022 Consultation [facility] Work Phone: Start: 04-30-2022 Methicillin resistant Staphylococcus aureus screening test [facility] Work Phone: Start: 04-30-2022 Airway suction technique [facility] Work Phone: Start: 04-29-2022 Ambulation without limitation [facility] Work Phone: Start: 04-29-2022 Assessment of risk of venous thromboembolism [facility] Work Phone: Start: 04-29-2022 Insertion of catheter into peripheral vein [facility] Work Phone: Start: 04-29-2022 Oxygen therapy [facility] Work Phone: Start: 04-29-2022 Providing care according to standard [facility] Work Phone: Start: 04-29-2022 End: 04-30-2022 [facility] Work Phone: Start: 04-29-2022 Admission procedure [facility] Work Phone: Start: 04-29-2022 Blood culture [facility] Work Phone: Start: 04-29-2022 Bacteria identified in Blood by Culture Blood Culture [facility] Work Phone: Start: 04-28-2022 Patient discharge [facility] Work Phone: Start: 04-26-2022 Following clinical pathway protocol [facility] Work Phone: Start: 04-26-2022 Oxygen therapy [facility] Work Phone: Start: 04-26-2022 Provision of activity privileges [facility] Work Phone: Start: 04-26-2022 Admission procedure [facility] Work Phone: Start: 04-26-2022 Assessment of risk of venous thromboembolism [facility] Work Phone: Start: 04-26-2022 Insertion of catheter into peripheral vein [facility] Work Phone: Start: 04-26-2022 Providing care according to standard [facility] Work Phone: Start: 04-26-2022 [facility] Work Phone: Start: 04-26-2022 Inhalation therapy procedure [facility] Work Phone: Start: 04-25-2022 End: 04-26-2023 Sodium Chloride 0.9% Infusion . ; IV Bag Volume = 1,000 mL Run at: 150 mL/hr IntraVenous Start: 25-Apr-2022 End: 25-Apr-2023 Ordered: 25-Apr-2022 Jerrod Hale [facility] Start: 01-24-2022 Anesthesia upper gi endoscopic px nos ANES UPR GI NDSC PX NOS [facility] Work Phone: Start: 01-24-2022 Constj tracheoesophgl fstl&insj sp prosth SURGERY/SPEECH PROSTHESIS [facility] Work Phone: Start: 01-24-2022 Esophagoscopy rig transoral removal foreign body ESOPHAGOSCP RIG TRNSO REM FB [facility] Work Phone: Start: 01-24-2022 Ambulation without limitation [facility] Work Phone: Start: 01-24-2022 Medical regimen orders management [facility] Work Phone: Start: 01-24-2022 Patient discharge [facility] Work Phone: Start: 01-24-2022 Procedure discontinued [facility] Work Phone: Start: 01-24-2022 Taking patient vital signs [facility] Work Phone: Start: 01-24-2022 Vital signs measurements [facility] Work Phone: Start: 01-24-2022 Medication education [facility] Work Phone: Start: 01-13-2022 VIRNPVHOME, Provider: Romina Martinez, Status: Pen, Time: 2:20 PM VIRNPVNAKITAE, Provider: Romina Martinez, Status: Pen, Time: 2:20 PM [facility] Work Phone: Start: 01-06-2022 VIRNPVMASON, Provider: Lucila Leigh, Status: Pen, Time: 9:45 AM VIRNPVHOME, Provider: Lucila Leigh, Status: Pen, Time: 9:45 AM [facility] Work Phone: Start: 01-03-2022 FUV, Provider: Lucila Ruff, Status: Pen, Time: 9:00 AM FUV, Provider: Lucila Ruff, Status: Pen, Time: 9:00 AM [facility] Work Phone: Start: 12-27-2021 FUV, Provider: Lucila Ruff, Status: Pen, Time: 10:45 AM FUV, Provider: Lucila Ruff, Status: Pen, Time: 10:45 AM [facility] Work Phone: Start: 11-22-2021 PTEVALADUL, Provider: Shereen Soriano, Status: Pen, Time: 9:45 AM PTEVALADUL, Provider: Shereen Soriano, Status: Pen, Time: 9:45 AM [facility] Work Phone: Start: 11-01-2021 FUV, Provider: Lucila Ruff, Status: Pen, Time: 1:15 PM FUV, Provider: Lucila Ruff, Status: Pen, Time: 1:15 PM [facility] Work Phone: Start: 07-21-2021 Influenza vaccination Sequential Influenza Vaccine (#1) [facility] Start: 10-16-2020 HPV TESTING HPV TESTING [facility] Start: 10-16-2020 PAP TESTING PAP TESTING [facility] Start: 07-21-2020 Influenza vaccination given Sequential Influenza Vaccine (#1) [facility] Start: 2020 Administration of herpes zoster vaccine Zoster Vaccines (1 of 2) [facility] Start: 2020 Screening for malignant neoplasm of colon [facility] Start: 2020 SHINGRIX VACCINE (1 of 2) SHINGRIX VACCINE (1 of 2) [facility] Start: 2020 Zoster Vaccines (1 of 2) Zoster Vaccines (1 of 2) [facility] Start: 2020 [facility] Start: 12-20-2019 DIABETES SCREEN DIABETES SCREEN [facility] Start: 07-21-2019 Influenza vaccination given SEQUENTIAL INFLUENZA VACCINE (#1) [facility] Start: 10-07-2015 Mammography MAMMOGRAM [facility] Start: 2015 COLOGUARD (FIT-DNA) COLOGUARD (FIT-DNA) [facility] Start: 2015 Colonoscopy COLONOSCOPY [facility] Start: 2015 COLORECTAL CANCER SCREENING COLORECTAL CANCER SCREENING [facility] Start: [address] COLONOGRAPHY [facility] Start: 2015 FECAL OCCULT BLOOD FECAL OCCULT BLOOD [facility] Start: 2015 LIPID SCREEN LIPID SCREEN [facility] Start: 2015 SIGMOIDOSCOPY SIGMOIDOSCOPY [facility] Start: 2010 Screening for malignant neoplasm of breast [facility] Start: 1992 DTaP/Tdap/Td Vaccines (1 - Tdap) DTaP/Tdap/Td Vaccines (1 - Tdap) [facility] Start: 1992 [facility] Start: 1991 Screening for malignant neoplasm of cervix [facility] Start: 1989 Hepatitis A Vaccines (1 of 2 - Risk 2-dose series) Hepatitis A Vaccines (1 of 2 - Risk 2-dose series) [facility] Start: 1989 Hepatitis B Vaccines (1 of 3 - 19+ 3-dose series) Hepatitis B Vaccines (1 of 3 - 19+ 3-dose series) [facility] Start: 1989 Pneumococcal vaccination Pneumococcal Vaccine (1 of 2 - PCV) [facility] Start: 1989 Urine microalbumin profile DTAP,TDAP,TD (1 - Tdap) [facility] Start: 1989 [facility] Start: 1988 Diabetes mellitus screening Diabetes Screening [facility] Start: 1988 Hepatitis C antibody, confirmatory test Hepatitis C Screening [facility] Start: 1988 Hepatitis C screening Hepatitis C Screening [facility] Start: 1988 HEPATITIS C SCREENING HEPATITIS C SCREENING [facility] Start: 1988 HIV SCREENING HIV SCREENING [facility] Start: 1986 COVID-19 Vaccine (1 of 2) COVID-19 Vaccine (1 of 2) [facility] Start: 1985 HIV screening HIV Screening [facility] Start: 1982 Adolescent depression screening assessment [facility] Start: 1982 Depression screening using PHQ-9 (Patient Health Questionnaire 9) score Depression Screening (PHQ-2/9) [facility] Start: 1976 Pneumococcal Vaccine: Ped or At-Risk (1 - PCV) Pneumococcal Vaccine: Ped or At-Risk (1 - PCV) [facility] Start: 1976 Pneumococcal Vaccine: Pediatrics (0 to 5 Years) and At-Risk Patients (6 to 64 Years) (1 - PCV) Pneumococcal Vaccine: Pediatrics (0 to 5 Years) and At-Risk Patients (6 to 64 Years) (1 - PCV) [facility] Start: 1976 Pneumococcal Vaccine: Pediatrics (0 to 5 Years) and At-Risk Patients (6 to 64 Years) (1 of 2 - PCV) Pneumococcal Vaccine: Pediatrics (0 to 5 Years) and At-Risk Patients (6 to 64 Years) (1 of 2 - PCV) [facility] Start: 1975 COVID-19 Vaccine (#1) COVID-19 Vaccine (#1) [facility] Start: 1975 COVID-19 Vaccine (1) COVID-19 Vaccine (1) [facility] Start: 1973 History and physical examination, annual for health maintenance Wellness Visit [facility] Start: 1971 MMR Vaccines (1 of 1 - Standard series) MMR Vaccines (1 of 1 - Standard series) [facility] Start: 1971 [facility] Start: 1970 COVID-19 Vaccine (#1) COVID-19 Vaccine (#1) [facility] Start: 1970 Hepatitis B Vaccines (1 of 3 - 3-dose series) Hepatitis B Vaccines (1 of 3 - 3-dose series) [facility] Start: 1970 HIV screening [facility] Start: 1970 Lipid panel [facility] Start: 1970 Medicare Annual Wellness Visit Medicare Annual Wellness Visit (AWV) [facility] Start: 1970 Screening for malignant neoplasm of cervix PAP SMEAR [facility] Start: 1970 Screening for malignant neoplasm of colon [facility] Start: 1970 Screening mammography Mammogram [facility] Start: 1970 Tetanus vaccination [facility] Bacteria identified in Blood by Culture Blood Culture [facility] Work Phone: End: 06-07-2025 Bacteria identified in Unspecified specimen by Respiratory culture [facility] Work Phone: End: 06-22-2025 Bacteria identified in Unspecified specimen by Respiratory culture Respiratory Culture/Smear Microbiology STAT STAT (Lab) for 1 Occurrences starting 06/22/2025 until 06/22/2025 [facility] Work Phone: Comment on above: STAT (Lab) for 1 Occurrences starting until 06/22/2025 End: 02-02-2024 Bacteria identified in Urine by Culture [facility] Work Phone: Comment on above: Once (Lab) for 1 Occurrences starting until 02/02/2024 End: 04-19-2024 Bacteria identified in Urine by Culture [facility] Work Phone: Comment on above: Once (Lab) for 1 Occurrences starting until 04/19/2024 End: 05-29-2024 Bacteria identified in Urine by Culture [facility] Work Phone: Comment on above: Once (Lab) for 1 Occurrences starting until 05/29/2024 Bacteria identified in Urine by Culture Urine Culture Microbiology STAT 06/20/2025 1:01 AM EDT [facility] Work Phone: Capnography Capnography Resp iratory Care Routine For RT frequency use only for continuous procedures with task-based reminders at 8a and 8p until discontinued starting 10/23/2023, 8 completed [facility] Work Phone: Comment on above: For RT frequency use only for continuous procedures with task-based reminders at 8a and 8p until discontinued starting 10/23/2023, 8 completed End: 06-13-2025 CBC panel - Blood by Automated count [facility] Work Phone: End: 06-27-2025 CBC panel - Blood by Automated count CBC Lab Routine Morning draw (Lab) for 1 Weeks starting 06/21/2025 until 06/27/2025, 1 completed [facility] Work Phone: Comment on above: Morning draw (Lab) for 1 Weeks starting 06/21/2025 until 06/27/2025, 1 completed CBC panel - Blood by Automated count CBC Lab Routine Morning draw (Lab) until discontinued starting 06/17/2025, 1 completed [facility] Work Phone: Comment on above: Morning draw (Lab) until discontinued st arting 06/17/2025, 1 completed End: 06-13-2025 Comprehensive metabolic 2000 panel - Serum or Plasma [facility] Work Phone: End: 08-08-2025 Comprehensive metabolic 2000 panel - Serum or Plasma Comprehensive Metabolic Panel Lab Routine Morning draw (Lab) for 1 Weeks starting 06/21/2025 until 06/27/2025, 1 completed [facility] Work Phone: Comment on above: Morning draw (Lab) for 1 Weeks starting 06/21/2025 until 06/27/2025, 1 completed End: 11-17-2023 CT Chest and Abdomen and Pelvis WO contrast [facility] Work Phone: Comment on above: Once for 1 Occurrences starting 11/17/20 until 11/17/2023 End: 11-17-2023 CT Neck WO contrast [facility] Work Phone: Comment on above: Once for 1 Occurrences starting 11/17/20 until 11/17/2023 ECG 12 lead ECG 12 lead ECG STAT 02/02/2024 12:46 PM T [facility] Work Phone: End: 04-19-2024 ECG 12 Lead [facility] Work Phone: Comment on above: Once for 1 Occurrences starting 04/19/20 24 until 04/19/2024 ECG 12 lead ECG 12 lead ECG STAT 05/29/2024 3:15 PM T [facility] Work Phone: End: 01-12-2025 ECG 12 lead [facility] Work Phone: Comment on above: Once for 1 Occurrences starting 01/12/20 25 until 01/12/2025 ECG 12 lead ECG 12 lead ECG STAT 06/19/2025 6:45 PM T [facility] Work Phone: Electrocardiogram, 12-lead PRN ACS symptoms Electrocardiogram, 12-lead PRN ACS symptoms ECG Routine As needed until discontinued starting 10/23/2023 [facility] Work Phone: Comment on above: As needed until discontinued starting Electrocardiogram, 12-lead PRN ACS symptoms Electrocardiogram, 12-lead PRN ACS symptoms ECG Routine As needed until discontinued starting 01/07/2025 [facility] Work Phone: Comment on above: As needed until discontinued starting Electrocardiogram, 12-lead PRN ACS symptoms Electrocardiogram, 12-lead PRN ACS symptoms ECG Routine As needed until discontinued starting 01/07/2025 [facility] Work Phone: Comment on above: As needed until discontinued starting Electrocardiogram, 12-lead PRN ACS symptoms [facility] Work Phone: Electrocardiogram, 12-lead PRN ACS symptoms [facility] Work Phone: Electrocardiogram, 12-lead PRN ACS symptoms Electrocardiogram, 12-lead PRN ACS symptoms ECG Routine As needed until discontinued starting 06/20/2025 [facility] Work Phone: Comment on above: As needed until discontinued starting Electrocardiogram, 12-lead PRN ACS symptoms Electrocardiogram, 12-lead PRN ACS symptoms ECG Routine As needed until discontinued starting 06/12/2025 [facility] Work Phone: Comment on above: As needed until discontinued starting Electrocardiogram, 12-lead PRN ACS symptoms Electrocardiogram, 12-lead PRN ACS symptoms ECG Routine As needed until discontinued starting 06/22/2025 [facility] Work Phone: Comment on above: As needed until discontinued starting Enteric Bacteriology Enteric Bacteriology [facility] End: 04-05-2024 Epidural steroid injection Epidural Steroid Injection Procedures Routine Lumbar radiculopathy Once for 1 Occurrences starting 04/05/2024 until 04/05/2024 [facility] Work Phone: Comment on above: Once for 1 Occurrences starting 04/05/20 until 04/05/2024 End: 02-02-2024 Extra Urine Waldron Tube [facility] Work Phone: Comment on above: Once for 1 Occurrences starting 02/02/20 until 02/02/2024 End: 04-19-2024 Extra Urine Waldron Tube [facility] Work Phone: Comment on above: Once for 1 Occurrences starting 04/19/20 until 04/19/2024 End: 05-29-2024 Extra Urine Waldron Tube [facility] Work Phone: Comment on above: Once for 1 Occurrences starting 05/29/20 until 05/29/2024 End: 01-12-2025 Extra Urine Waldron Tube Extra Urine Waldron Tube Lab Timed Once for 1 Occurrences starting 01/12/2025 until 01/12/2025 [facility] Work Phone: Comment on above: Once for 1 Occurrences starting 01/12/20 until 01/12/2025 End: 06-05-2025 Extra Urine Waldron Tube [facility] Work Phone: End: 06-19-2025 Extra Urine Waldron Tube Extra Urine Waldron Tube Lab Timed Once for 1 Occurrences starting 06/19/2025 until 06/19/2025 [facility] Work Phone: Comment on above: Once for 1 Occurrences starting 06/19/20 until 06/19/2025 Gastrointestinal pathogens panel - Stool by CRISTHIAN with probe detection [facility] End: 10-23-2023 Glucose [Mass/volume] in Serum or Plasma POCT Glucose Point of Care Testing - Docked Device Routine Once (Lab) for 1 Occurrences starting 10/23/2023 until 10/23/2023 [facility] Service [facility] Work Phone: Comment on above: Once (Lab) for 1 Occurrences starting until 10/23/2023 Glucose [Mass/volume ] in Serum or Plasma [facility] Work Phone: Comment on above: 4 times daily before meals and at bedtim e until discontinued starting 06/20/2025, 4 completed As needed (Lab) unti l discontinued starting 06/20/2025 Glucose [Mass/volume ] in Serum or Plasma POCT Glucose Point of Care Testing - Docked Device Routine As needed (Lab) until discontinued starting 06/12/2025 [facility] Work Phone: Comment on above: As needed (Lab) until discontinued start ing 06/12/2025 Glucose [Mass/volume ] in Serum or Plasma POCT Glucose Point of Care Testing - Docked Device Routine As needed (Lab) until discontinued starting 06/22/2025 [facility] Work Phone: Comment on above: As needed (Lab) until discontinued start ing 06/22/2025 End: 06-13-2025 Magnesium [Mass/volume] in Serum or Plasma [facility] Work Phone: End: 06-27-2025 Magnesium [Mass/volume] in Serum or Plasma Magnesium Lab Routine Morning draw (Lab) for 1 Weeks starting 06/21/2025 until 06/27/2025, 1 completed [facility] Work Phone: Comment on above: Morning draw (Lab) for 1 Weeks starting 06/21/2025 until 06/27/2025, 1 completed End: 10-25-2023 Music Therapy eval and treat Music Therapy eval and treat Therapeutic Recreation Orderables Routine Until therapy completed for 1 Occurrences starting 10/25/2023 until 10/25/2023 [facility] Work Phone: Comment on above: Until therapy completed for 1 Occurrence s starting 10/25/2023 until 10/25/2023 End: 06-06-2025 Music Therapy eval and treat [facility] Work Phone: Nasotracheal suctioning Nasotrac heal suctioning Respiratory Care Routine Once per 12 hour shift until discontinued starting 10/23/2023, 3 completed [facility] Work Phone: Comment on above: Once per 12 hour shift until discontinue d starting 10/23/2023, 3 completed Nasotracheal suctioning [facility] Work Phone: Ova and Parasites Ova and Parasites [facility] Ova and parasites identified in Unspecified specimen by Light microscopy [facility] Ova and parasites identified in Unspecified specimen by Light microscopy [facility] Patient Education ED Pneumonia (Adult) [facility] Work Phone: Patient referral [facility] Work Phone: POCT glucose meter d ocked device POCT glucose meter docked device Point of Care Testing - Docked Device Routine As needed (Lab) for 1 Occurrences starting 04/05/2024 [facility] Work Phone: Comment on above: As needed (Lab) for 1 Occurrences starti ng 04/05/2024 End: 06-05-2025 Pulse oximetry, continuous [facility] Work Phone: End: 06-12-2025 Pulse oximetry, continuous Pulse oximetry, continuous Respiratory Care Routine Continuous until discontinued starting 06/12/2025 [facility] Work Phone: Comment on above: Continuous until discontinued starting 0 06/12/2025 End: 07-16-2025 Pulse oximetry, spot Pulse oximetry, spot Respiratory Care Routine Once for 1 Occurrences starting 07/16/2025 until 07/16/2025 [facility] Work Phone: Comment on above: Once for 1 Occurrences starting 07/16/20 until 07/16/2025 End: 10-23-2023 Respiratory care eval and treat Respiratory care eval and treat Respiratory Care Routine Once for 1 Occurrences starting 10/23/2023 until 10/23/2023 [facility] Work Phone: Comment on above: Once for 1 Occurrences starting 10/23/20 until 10/23/2023 End: 06-20-2025 Respiratory care eval and treat Respiratory care eval and treat Respiratory Care Routine Once for 1 Occurrences starting 06/20/2025 until 06/20/2025 [facility] Work Phone: Comment on above: Once for 1 Occurrences starting 06/20/20 until 06/20/2025 End: 10-27-2023 Respiratory care oxygen evaluation Respiratory care oxygen evaluation Respiratory Care Routine Once for 1 Occurrences starting 10/27/2023 until 10/27/2023 [facility] Work Phone: Comment on above: Once for 1 Occurrences starting 10/27/20 until 10/27/2023 End: 10-23-2023 Sputum induction Sputum induction Respiratory Care Routine Once for 1 Occurrences starting 10/23/2023 until 10/23/2023 [facility] Work Phone: Comment on above: Once for 1 Occurrences starting 10/23/20 until 10/23/2023 End: 02-02-2024 Urinalysis complete W Reflex Culture panel - Urine [facility] Service [facility] Work Phone: Comment on above: Once (Lab) for 1 Occurrences starting until 02/02/2024 End: 04-19-2024 Urinalysis complete W Reflex Culture panel - Urine [facility] Service [facility] Work Phone: Comment on above: STAT (Lab) for 1 Occurrences starting until 04/19/2024 End: 05-29-2024 Urinalysis complete W Reflex Culture panel - Urine [facility] Service [facility] Work Phone: Comment on above: Once (Lab) for 1 Occurrences starting until 05/29/2024 End: 01-12-2025 Urinalysis complete W Reflex Culture panel - Urine [facility] Work Phone: Comment on above: Once (Lab) for 1 Occurrences starting until 01/12/2025 End: 06-05-2025 Urinalysis complete W Reflex Culture panel - Urine [facility] Service [facility] Work Phone: End: 06-19-2025 Urinalysis complete W Reflex Culture panel - Urine [facility] Work Phone: Comment on above: Once (Lab) for 1 Occurrences starting until 06/19/2025 End: 10-26-2023 Ventilator - Vent Mode: AC - Assist Control; Ventilation type: Volume Control; Set Resp Rate: 20; Set Tidal Volume: 350; TV calculated in: mL; PEEP/CPAP (cm H2O): 5 Ventilator - Vent Mode: AC - Assist Control; Ventilation type: Volume Control; Set Resp Rate: 20; Set Tidal Volume: 350; TV calculated in: mL; PEEP/CPAP (cm H2O): 5 Respiratory Care Routine Continuous until discontinued starting 10/26/2023 [facility] Work Phone: Comment on above: Continuous until discontinued starting 1 12/27/2022 End: 07-24-2026 XR Chest 2 Views XR chest 2 views Imaging Routine Tracheoesophageal fistula 1 Occurrences starting 07/24/2025 until 07/24/2026 [facility] Service [facility] Work Phone: Comment on above: 1 Occurrences starting 07/24/2025 until 07/24/2026 End: 07-29-2025 XR Chest 2 Views [facility] Work Phone: Comment on above: Once for 1 Occurrences starting 07/29/20 until 07/29/2025 End: 07-16-2025 XR Chest Single view [facility] Work Phone: Comment on above: Once for 1 Occurrences starting 07/16/20 until 07/16/2025 End: 04-05-2024 XR tomography Unspecified body region [facility] Work Phone: Comment on above: Once for 1 Occurrences starting 04/05/20 24 until 04/05/2024 Immunizations Immunization Date Immunization Notes Care Provider Fa cili 01-07-2025 pneumococcal conjuga te 20-valent (PREVNAR 20) vaccine Eliazar Nolan DO Work Phone: [facility] Work Phone: 01-07-2025 flu vaccine trivalen t (PF) (Fluarix/Fluzone/Flulav al) 6 months or greater injection Eliazar Nolan DO Work Phone: [facility] Work Phone: 09-01-2022 influenza, injectabl e, quadrivalent, preservative free David Branham MD Work Phone: [facility] 09-01-2022 influenza, seasonal, injectable [facility] 09-01-2022 influenza virus vaccine, unspecified formulation David Branham MD Work Phone: [facility] Work Phone: 10-11-2021 influenza, injectabl e, quadrivalent, preservative free Iqra Rose Work Phone: [facility] 10-11-2021 influenza, seasonal, injectable [facility] Work Phone: [facility] Payers Date Payer Category Payer Self-pay [id number] 2018 Medicaid [place] xxxxxxxxxxxx 2018-Present [id number] 2017 Medicaid [id number] 2014 Medicaid [id number] 2010 Medicaid [id number] 2010 Medicare MEDICARE MEDICAR E PART A & B xxxxxxxxxx 2010-Present [place] xxxxxxxxxx [id number] 2010 Medicare MEDICARE MEDICAR E PART A & B xxxxxxxxxxx 2010-Present [place] xxxxxxxxxxx [id number] 2010 Medicare [id number] 2010 Medicare [id number] 2010 Medicare [id number] .[id number] 1970 Unknown [id number] 2.16.840.1.526519.3.579.2.651 1970 Unknown [id number] 2.16.840.1.781530.3.579.2.903 1970 Unknown [id number] 2.16.840.1.835646.3.579.2.903 1970 Unknown [id number] 2.16.840.1.473399.3.579.2.903 1970 Unknown [id number] 2.16.840.1.393685.3.579.2.900 1970 Unknown [id number] 2.16.840.1.308095.3.579.2.900 1970 Unknown [id number] 2.16.840.1.608819.3.579.2.106 9 1970 Unknown [id number] 2.16.840.1.750007.3.579.2.106 9 1970 Unknown [id number] 2.16.840.1.803957.3.579.2.106 9 1970 Unknown [id number] 2.16.840.1.460778.3.579.2.106 9 1970 Unknown [id number] 2.16.840.1.202858.3.579.2.106 9 1970 Unknown [id number] 2.16.840.1.124286.3.579.2.106 9 1970 Unknown [id number] 2.16.840.1.486478.3.579.2.106 9 1970 Unknown [id number] 2.16.840.1.498001.3.579.2.106 9 1970 Unknown [id number] 2.16.840.1.172458.3.579.2.106 9 1970 Unknown [id number] 2.16.840.1.852662.3.579.2.106 9 1970 Unknown [id number] 2.16.840.1.234991.3.579.2.106 9 1970 Unknown [id number] 2.16.840.1.578482.3.579.2.106 9 1970 Unknown [id number] 2.16.840.1.721831.3.579.2.106 9 1970 Unknown [id number] 2.16.840.1.515399.3.579.2.651 1970 Unknown [id number] 2.16.840.1.767588.3.579.2.651 1970 Unknown [id number] 2.16.840.1.842121.3.579.2.903 1970 Unknown [id number] 2.16.840.1.260078.3.579.2.903 1970 Unknown [id number] 1970 Unknown [id number] 2.16.840.1.630929.3.579.2.903 1970 Unknown [id number] 2.16.840.1.519132.3.579.2.903 1970 Unknown [id number] 2.16.840.1.287617.3.579.2.903 1970 Unknown [id number] 2.16.840.1.925897.3.579.2.124 4 1970 Unknown [id number] 2.16.840.1.808197.3.579.2.124 4 1970 Unknown [id number] 2.16.840.1.162104.3.579.2.124 5 1970 Unknown [id number] 2.16.840.1.417389.3.579.2.124 5 1970 Unknown [id number] 2.16.840.1.398090.3.579.2.124 5 1970 Unknown [id number] 2.16.840.1.155674.3.579.2.124 5 1970 Unknown [id number] 2.16.840.1.479468.3.579.2.124 5 1970 Unknown [id number] 2.16.840.1.099037.3.579.2.124 5 1970 Unknown [id number] 2.16.840.1.364990.3.579.2.124 5 1970 Unknown [id number] 2.16.840.1.901833.3.579.2.124 3 1970 Unknown [id number] 2.16.840.1.298239.3.579.2.124 3 1970 Unknown [id number] 2.16.840.1.201693.3.579.2.124 3 1970 Unknown [id number] 2.16.840.1.557680.3.579.2.124 3 1970 Unknown [id number] 2.16.840.1.040475.3.579.2.124 3 Medicare [id number] Unknown Unknown [id number] 2.16.840.1.141712.3.579.2.462 Unknown [id number] 2.16.840.1.082748.3.579.2.462 Unknown [id number] 2.16.840.1.937128.3.579.2.462 Social History Date Type Detail Facility Tobacco smoking stat [facility] Unknown if ever smoked [facility] Start: 1970 Sex Assigned At Not on file [facility] Work Phone: Start: 07-11-2017 End: 03-21-2024 Tobacco smoking status [facility]IS Unknown if ever smoked [facility] Start: 01-25-2022 End: 01-12-2025 Exposure to SARS-CoV-2 (event) Not sure [facility] Start: 07-05-2011 End: 06-22-2025 Denies alcohol consumption Denies alcohol consumption [facility] Work Phone: Start: 07-05-2011 End: 12-18-2023 Tobacco smoking status NHIS Ex-smoker [facility] End: 11-20-2009 History of tobacco use Current smoker [facility] End: 11-20-2009 History of tobacco use Cigarette Smoker [facility] Start: 07-05-2011 End: 12-18-2023 Tobacco use and exposure Smokeless tobacco non-user [facility] Start: 02-04-2022 Alcohol intake Current non-drinker of alcohol (finding) [facility] Start: 12-16-2017 None [facility] Start: 01-11-2021 Non-smoker [facility] Start: 1970 Sex Assigned At Female [facility] Start: 11-24-2022 End: 06-12-2025 Alcohol intake Current drinker of alcohol (finding) [facility] Start: 02-08-2023 End: 06-22-2025 Tobacco use panel [facility] Start: 06-17-2019 Gender identity Identifies as female gender (finding) [facility] Start: 06-17-2019 Sexual orientation Heterosexual (finding) [facility] Start: 10-22-2023 Tobacco smoking status NHIS Never smoked tobacco [facility] Work Phone: Start: 10-23-2023 End: 04-08-2024 Alcohol intake Ex-drinker (finding) [facility] Work Phone: Start: 12-04-2023 Tobacco smoking status NHIS Occasional tobacco smoker [facility] Work Phone: Start: 05-29-2024 Alcohol Comment Son states patient drinks 1 to 4 fifths of whiskey weekly [facility] Work Phone: Has the [employer], or [employer] threatened to shut off services in your home in past 12Mo No [facility] How often to you hav e a drink containing alcohol? Never [facility] Work Phone: Start: 10-14-2022 How many standard drinks containing alcohol do you have on a typical day? Patient does not drink [facility] Work Phone: How hard is it for y ou to pay for the very basics like food, housing, medical care, and heating Not very hard [facility] (I/We) worried abilio er (my/our) food would run out before (I/we) got money to buy more. Never true [facility] Work Phone: Start: 06-05-2025 Alcohol Comment Son states patient drinks if she can get her hands on a pint, she will drink 3-4 pints at a time [facility] Work Phone: How often to you hav e a drink containing alcohol? Monthly or less [facility] Work Phone: How often do you hav e 6 or more drinks on 1 occasion? Less than monthly [facility] Work Phone: How often to you hav e a drink containing alcohol? 4 or more times a week [facility] Work Phone: How many standard drinks containing alcohol do you have on a typical day? 5 or 6 [facility] Work Phone: How often do you hav e 6 or more drinks on 1 occasion? Weekly [facility] Work Phone: Start: 06-22-2025 End: 09-15-2025 Alcoholic beverage intake Defer [facility] Work Phone: Start: 10-14-2022 Sex Female (finding) [facility] Procedure Code Equipment Code Equipment Origin al Text Equipment Identifier Dates Stent, Esophagea l Endomaxx 19mm X 120mm Lngth - [id number] Start: 06-12-2025 Goals Date Patient Goal Desired Activity /State Personal health goal Functional Status Date Assessment Result Facility 09-15-2025 Functional status 82/60 [facility] Work Phone: 09-15-2025 [facility] Work Phone: 06-22-2025 Total score [AUDIT-C] -1 025 3:52 AM Shelley Calderon, RN [facility] Work Phone: 06-22-2025 [place] - suicide s everity rating scale screener - recent [C-SSRS] [facility] Work Phone: 06-20-2025 Total score [AUDIT-C] 2 06/20/20 25 5:20 PM EDT Neeru Cifuentes, DANNI [facility] Work Phone: 06-20-2025 Patient Health Questionnaire 2 item (PHQ-2) [Reported] [facility] Work Phone: 06-19-2025 [place] - suicide s everity rating scale screener - recent [C-SSRS] [facility] Work Phone: 06-12-2025 [place] - suicide s everity rating scale screener - recent [C-SSRS] [facility] Work Phone: 06-12-2025 Total score [AUDIT-C] 9 06/12/20 25 3:26 AM EDT Jade Camp RN [facility] Work Phone: 06-12-2025 Patient Health Questionnaire 2 item (PHQ-2) [Reported] [facility] Work Phone: 06-05-2025 Total score [AUDIT-C] [facility] Work Phone: 06-05-2025 Patient Health Questionnaire 2 item (PHQ-2) [Reported] [facility] Work Phone: 06-05-2025 [place] - suicide s everity rating scale screener - recent [C-SSRS] [facility] Work Phone: 03-22-2024 Functional status Ambulates;Fish r;Bedside Commode;Active [employer] [facility] Work Phone: 03-31-2023 Functional status Ambulates;Beds karan Commode [facility] Work Phone: 05-04-2022 Functional status Chair [facility] Work Phone: 04-28-2022 Functional status Ambulates [facility] Work Phone: [facility] Work Phone: [facility] Work Phone: [facility] Work Phone: [facility] Work Phone: Mental Status Date Assessment Result Facility 03-22-2024 Cognitive function Voice/Name [facility] Work Phone: 03-31-2023 Cognitive function Voice/Name [facility] Work Phone: 05-04-2022 Cognitive function Voice/Name [facility] Work Phone: 04-28-2022 Cognitive function Voice/Name [facility] Work Phone: 01-24-2022 Cognitive function Voice/Name [facility] Work Phone: Clinical Notes 08-29-2021 to 09-15-2025 Micehlle Bond MD - 09/15/2025 10:00 AM Parveen Bond MD - 08/11/2025 10:30 AM Louie Thomas DO - 07/29/2025 1:30 PM EDTHannah Caceres RN - 06/26/2025 2:10 PM EDT Note Date & Type Note Facility 09-15-2025 History of Present illness Narrative Images from the original note were not included. Otolaryngology - Head and Neck Surgery Return Patient Note Patient Name: Vj Myers : 1970 History Of Present Illness She is here today for follow-up. Her TSH has normalized to 1.16 which is excellent. She looks and feels much better. She is getting stronger. She is still at her facility for some reason she does not know why. She has remained n.p.o., her secretions have gotten much better. She is taking everything by PEG. She reports she has had a TEP in the past. It has probably been about 1 year. She is leaking through her TEP site. She really would like to have a TEP placed again. She thinks there is an ENFORCEMENT MANAGER available in [place]. She is again here with her boyfriend. Transported by the facility 08/11/2025 Vj Myers is a 55 y.o. 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 This was done at [facility]. She has since been following in [place] with an ENT there every year who performed a scope in her neopharynx Patient reports she is still in her nursing facility. She is here with her boyfriend, transported by EMS. Was seen by thoracic surgery and the stent was removed. She was advised to see ENT for additional follow up and diet clearance. She is remaining NPO, allowed a few sips of water. Has a trach in with the cuff up to prevent additional aspiration. She is getting stronger, taking all feeds through the PEG. Reports she is taking her synthroid. Remains significantly hypothyroid. PMH: hx MRSA infection, hypertension, hyperlipidemia, depression, GERD, anxiety, atypical chest pain, stage III chronic kidney disease, COPD, alcoholism and chronic back pain Allergies Iodinated contrast media, Morphine, Adhesive, and Latex Review of Systems A 12-point review of systems was performed and noted be negative except for that which was mentioned in the history of present illness Last Recorded Vitals Blood pressure 82/60, height 1.6 m (5' 3), weight 73 kg (161 lb). Physical Exam: Constitutional: No acute distress Voice: Aphonic however she is able to produce some esophageal speech respiration: Breathing comfortably, she is on room air, minimal to no secretions, cuffed trach in place, cuff down, Eyes: EOM intact, sclera normal Neuro: AOX3, Cranial nerves II-XII grossly intact and symmetric bilaterally except Head and Face: Symmetric facial features, no masses or lesions Easr: Normal external ears Nose: External nose midline Oral Cavity/Oropharynx/Lips: Normal mucous membranes, normal floor of mouth, tongue, no masses or lesions Neck/Lymph: Evidence of prior surgical scars, significant radiation effect, no palpable lymphadenopathy, stoma is healthy appearing-there remains a post TEP fistula that does look leak a small amount of fluid when I tested her with water. skin: Radiation affect, will healed skin incisions Psych: Alert and oriented with appropriate mood and affect Medications: Current Outpatient Medications Medication Instructions acetaminophen (TYLENOL) 650 mg, oral, Every 4 hours PRN atorvastatin (Lipitor) 20 mg tablet 1 tablet, Nightly [Paused] carvedilol (COREG) 6.25 mg, oral, 2 times daily docusate sodium (COLACE) 100 mg, Daily folic acid (FOLVITE) 1 mg, Daily insulin lispro 0-5 Units, subcutaneous, Every 4 hours, Take as directed per insulin instructions. ipratropium-albuteroL (Duo-Neb) 0.5-2.5 mg/3 mL nebulizer solution 3 mL, nebulization, 4 times daily PRN levothyroxine (SYNTHROID, LEVOXYL) 137 mcg, Daily levothyroxine (SYNTHROID, LEVOXYL) 137 mcg, g-tube, Daily liothyronine (CYTOMEL) 5 mcg, Daily liothyronine (CYTOMEL) 5 mcg, g-tube, Daily multivitamin with minerals tablet 1 tablet, oral, Daily oxygen (O2) gas therapy 1 Dose, inhalation, Every 24 hours pantoprazole (PROTONIX) 40 mg, Daily sertraline (ZOLOFT) 50 mg, g-tube, Daily thiamine (VITAMIN B-1) 100 mg, g-tube, Daily Recent Labs: Lab Results Component Value Date TSH 1.16 08/14/2025 Labs: Lab Results Component Value Date WBC 7.4 06/30/2025 HGB 9.1 (L) 06/30/2025 HCT 30.2 (L) 06/30/2025 PLT 261 06/30/2025 NEUTROABS 5.34 06/30/2025 Lab Results Component Value Date TSH 1.16 08/14/2025 HGBA1C 4.2 06/30/2025 [id number] 1,069 (H) 06/13/2025 FOLATE 8.0 06/13/2025 Pathology: None relevant to the current chief concern Imaging: I personally reviewed the CT chest and neck from May and June 2025 and this is my impression: Small TEF likely at the site of prior presumed TEP, the esophageal stent that was placed was in good position, this has been removed. I see no evidence of recurrence. ON the CT spine from 06/05 - there is passage of the patient's tracheostomy tube from the laryngeal stoma through the fistula into the esophageal lumen. Radiologic Impression CT chest IMPRESSION: 1. Upper esophageal stent is now seen in place extending from the level of hypopharynx to mid esophagus (C5 through T5 vertebral level). Stent is widely patent. 2. Small bilateral pleural effusions have improved when compared to prior CT scan 06/10/2025. 3. No new focal consolidation or pneumothorax. 4. Few small right lower lobe ground-glass nodular densities, which are felt to be represent nonspecific bronchiolitis. 5. Diffuse hepatic steatosis. 6. Additional chronic changes as described above. CT neck IMPRESSION: 1. Postoperative changes from total laryngectomy, creation of a neopharynx, and flap reconstruction. 2. Tracheostomy tube is in place. It is difficult to evaluate patient's known tracheoesophageal fistula as detailed above. 3. No new discrete masses are seen within the visualized aerodigestive tract and there is no cervical lymphadenopathy by size criteria. ASSESSMENT AND PLAN: Vj Myers is a 55 y.o. female with a history of laryngeal cancer status post chemoradiation and subsequent total laryngectomy for laryngeal cancer in 2007 at [facility], presenting for follow up after hospital admission for sepsis in the setting of aspiration PNA and tracheoesophageal fistula requiring EGD with esophageal stent placement and PEG placement with thoracic surgery. Imaging review shows that CT's C-spine in May showed a fistula with passage of a tracheostomy through the stoma into the esophageal lumen. Esophageal stent has been removed at this point, She has had prior TEP's, and I anticipate this is a persistent fistula at the site of prior TEP. Unfortunately based on the imaging it appears that a tracheostomy was false passage through this into her esophagus which worsened the size of her fistula. At this point her hypothyroidism is improved and normal, she has a pinpoint fistula at her prior TEP site. Given she has had prior TEPs, I am optimistic that replacing the TEP would help her regain her speech and manage her fistula. I would not like to pursue surgical repair or a plug prior to her having assessment by ENFORCEMENT MANAGER for a new CHRIS. She also needs established with ENFORCEMENT MANAGER, she has no Sherry tubes. We have no records of prior ENT or TEP care, this was all done at outside facility. She is clinically and radiographically without disease. We did attempt to reach out to her facility after the last visit, it does not appear that ENFORCEMENT MANAGER services for TEP and laryngectomy care were coordinated. She states her ENT is in [place], she has been told there is an ENFORCEMENT MANAGER there that may be able to help. I will work with our ENFORCEMENT MANAGER and place a referral for her to be assessed for TEP placement closer to home. If they are not able to do so, we will get her plugged in with the ENFORCEMENT MANAGER and laryngology team here at . Finally, she remains at this facility, she is unsure why she is still there. Potentially for transportation? Needs to remain n.p.o. persistent fistula Drainage has decreased, cuff inflated as needed Continue Synthroid, TSH is now optimized needs to reestablish care with ENFORCEMENT MANAGER. We will place a referral for laryngectomy and TEP care in [place]. If they are unable to replace the TEP, I will get her plugged in with the speech and laryngology team. If this fails, we can consider surgical closure versus fistula plug. I worry about healing in the setting of prior radiation. Ultimately can continue follow-up for oncologic surveillance at [place] Follow-up with me in 6 months - can cancel if care gets established closer to home Michelle Bond MD documented in this encounter [facility] Work Phone: 08-11-2025 History of Present illness Narrative Images from the original note were not included. Otolaryngology - Head and Neck Surgery Return Patient Note Patient Name: Vj Myers : 1970 History Of Present Illness Vj Myers is a 55 y.o. 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 This was done at [facility]. She has since been following in [place] with an ENT there every year who performed a scope in her neopharynx Patient reports she is still in her nursing facility. She is here with her boyfriend, transported by EMS. Was seen by thoracic surgery and the stent was removed. She was advised to see ENT for additional follow up and diet clearance. She is remaining NPO, allowed a few sips of water. Has a trach in with the cuff up to prevent additional aspiration. She is getting stronger, taking all feeds through the PEG. Reports she is taking her synthroid. Remains significantly hypothyroid. She is unsure when the last TEP was PMH: hx MRSA infection, hypertension, hyperlipidemia, depression, GERD, anxiety, atypical chest pain, stage III chronic kidney disease, COPD, alcoholism and chronic back pain Allergies Iodinated contrast media, Morphine, Adhesive, and Latex Review of Systems A 12-point review of systems was performed and noted be negative except for that which was mentioned in the history of present illness Last Recorded Vitals Blood pressure (!) 157/93, height 1.6 m (5' 3), weight 73 kg (161 lb). Physical Exam: Constitutional: No acute distress Voice: Aphonic however she is able to produce some esophageal speech respiration: Breathing comfortably, she is on supplemental oxygen via Sherry stoma, cuffed tracheostomy tube with cuff inflated in place significant secretion burden however normal in character Eyes: EOM intact, sclera normal Neuro: AOX3, Cranial nerves II-XII grossly intact and symmetric bilaterally except Head and Face: Symmetric facial features, no masses or lesions Salivary Glands: Parotid and submandibular glands normal bilaterally Easr: Normal external ears Nose: External nose midline Oral Cavity/Oropharynx/Lips: Normal mucous membranes, normal floor of mouth, tongue, no masses or lesions Neck/Lymph: Evidence of prior surgical scars, significant radiation effect, no palpable lymphadenopathy skin: Radiation affect, will healed skin incisions Psych: Alert and oriented with appropriate mood and affect Medications: Current Outpatient Medications Medication Instructions acetaminophen (TYLENOL) 650 mg, oral, Every 4 hours PRN atorvastatin (Lipitor) 20 mg tablet 1 tablet, Nightly [Paused] carvedilol (COREG) 6.25 mg, oral, 2 times daily docusate sodium (COLACE) 100 mg, Daily folic acid (FOLVITE) 1 mg, Daily insulin lispro 0-5 Units, subcutaneous, Every 4 hours, Take as directed per insulin instructions. ipratropium-albuteroL (Duo-Neb) 0.5-2.5 mg/3 mL nebulizer solution 3 mL, nebulization, 4 times daily PRN levothyroxine (SYNTHROID, LEVOXYL) 137 mcg, Daily levothyroxine (SYNTHROID, LEVOXYL) 137 mcg, g-tube, Daily liothyronine (CYTOMEL) 5 mcg, Daily liothyronine (CYTOMEL) 5 mcg, g-tube, Daily multivitamin with minerals tablet 1 tablet, oral, Daily oxygen (O2) gas therapy 1 Dose, inhalation, Every 24 hours pantoprazole (PROTONIX) 40 mg, Daily sertraline (ZOLOFT) 50 mg, g-tube, Daily thiamine (VITAMIN B-1) 100 mg, g-tube, Daily Recent Labs: Lab Results Component Value Date TSH 27.38 (H) 06/15/2025 Labs: Lab Results Component Value Date WBC 7.4 06/30/2025 HGB 9.1 (L) 06/30/2025 HCT 30.2 (L) 06/30/2025 PLT 261 06/30/2025 NEUTROABS 5.34 06/30/2025 Lab Results Component Value Date TSH 27.38 (H) 06/15/2025 HGBA1C 4.2 06/30/2025 [id number] 1,069 (H) 06/13/2025 FOLATE 8.0 06/13/2025 Pathology: None relevant to the current chief concern Imaging: I personally reviewed the CT chest and neck from May and June 2025 and this is my impression: Small TEF likely at the site of prior presumed TEP, the esophageal stent that was placed was in good position, this has been removed. I see no evidence of recurrence. ON the CT spine from 06/05 - there is passage of the patient's tracheostomy tube from the laryngeal stoma through the fistula into the esophageal lumen. Radiologic Impression CT chest IMPRESSION: 1. Upper esophageal stent is now seen in place extending from the level of hypopharynx to mid esophagus (C5 through T5 vertebral level). Stent is widely patent. 2. Small bilateral pleural effusions have improved when compared to prior CT scan 06/10/2025. 3. No new focal consolidation or pneumothorax. 4. Few small right lower lobe ground-glass nodular densities, which are felt to be represent nonspecific bronchiolitis. 5. Diffuse hepatic steatosis. 6. Additional chronic changes as described above. CT neck IMPRESSION: 1. Postoperative changes from total laryngectomy, creation of a neopharynx, and flap reconstruction. 2. Tracheostomy tube is in place. It is difficult to evaluate patient's known tracheoesophageal fistula as detailed above. 3. No new discrete masses are seen within the visualized aerodigestive tract and there is no cervical lymphadenopathy by size criteria. ASSESSMENT AND PLAN: Vj Myers is a 55 y.o. female with a history of laryngeal cancer status post chemoradiation and subsequent total laryngectomy for laryngeal cancer in 2007 at [facility], presenting for follow up after hospital admission for sepsis in the setting of aspiration PNA and tracheoesophageal fistula requiring EGD with esophageal stent placement and PEG placement with thoracic surgery. Imaging review shows that CT's C-spine in May showed a fistula with passage of a tracheostomy through the stoma into the esophageal lumen. Esophageal stent has been removed at this point, unfortunately clinic swallow water showed water coming through the fistula site, it is quite small at this point. I anticipate this is from a prior TEP site versus a false passage. We have no records of prior ENT or TEP care, this was all done at outside facility. She is clinically and radiographically without disease. She continues to struggle with profound hypothyroidism as well, is unaware when the facility is administering the Synthroid. She is motivated to eat again. I discussed with her that this is a complicated problem should this fistula not heal. We could ultimately pursue surgery however in the setting of prior radiation, and free flap, her medical comorbidities, and severe hypothyroidism this is a high risk surgery and I would not recommended at this time. We can give her body more time to heal this on its own by remaining n.p.o. and correcting her hypothyroidism. I will investigate other options in the meantime while we correct her hypothyroidism. Needs to remain n.p.o. persistent fistula Cuffed trach with trach cuff inflated to prevent aspiration of saliva Needs new TSH, provided chcf with clear instructions to administer Synthroid at least 1 hour prior to tube feeds. Providers at the facility need to be monitoring her TSH at regular levels. I will not do surgery for fistula repair unless this is corrected Needs to reestablish care with ENFORCEMENT MANAGER. She no longer has her Sherry tube and this was thrown away during hospitalization She is okay for discharge from an ENT perspective once she is meeting criteria from the facility, needs to administer tube feeds independently and take care of her stoma Ultimately can continue follow-up for oncologic surveillance at [place] Follow-up with co in 1 month to reassess status of fistula Michelle Bond MD documented in this encounter [facility] Work Phone: 07-29-2025 History of Present illness Narrative Chief complaint Post-operative visit History Of Present Illness Vj Myers is a 55 y.o. female presenting for their first post-operative visit after undergoing an EGD/stent removal on 07/16/25. She has done well since that time -- was made NPO after discharge until outpatient follow up with ENT to prevent recurrent pneumonias. She did have her trach replaced at the care facility as she would become significantly tachycardic with mild SOB - rate up to 160s. This has improved since trach replaced. Patient is using PEG for tube feeds currently. By way of review: patient with a personal history of SCC of the supraglottic region (2007, s/p chemo/rads and laryngectomy with flap/TEF creation for phonation) and alcohol use disorder who was admitted to the thoracic surgery service May 2023 after presenting with aspiration PNA/pneumonitis 2/2 remote surgical TEF. She underwent EGD with esophageal stent placement and PEG placement with Dr. Thomas on 06/12 and was decannulated on 06/13. Of note -- patient had a prior TEP allowing for aspiration pneumonitis. She was discharged to SNF on 06/17 but presented to [facility] on 06/19 with acute on chronic hypoxic respiratory failure. She did well with brief re[place]ad[place] [facility] 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 Surgical History She has a past surgical history that includes Other surgical history (10/26/2021); Other surgical history (10/26/2021); Other surgical history (10/26/2021); Other surgical history (10/26/2021); Other surgical history (11/09/2021); Hysterectomy; IR injection epidural steroid (N/A, 04/05/2024); Flexible bronchoscopy w/ stent placement (06/12/2025); Gastrostomy tube placement (06/12/2025); and Tracheal closed stent removal w/ MLB (N/A, 07/16/2025). Social History She reports that she has quit smoking. Her smoking use included cigarettes. She has never used smokeless tobacco. Alcohol use questions deferred to the physician. She reports that she does not use drugs. Medications Current Medications[1] Review of Systems: Review of Systems Constitutional: No fevers, chills, unexpected weight change HENT: No sore throat, congestion, or nasal drainage Eyes: No visual changes or eye itching Respiratory: see HPI. No cough, worsening dyspnea, wheezing Cardiac: No chest pain, palpitations, or lower extremity edema Gastrointestinal: No nausea, vomiting, diarrhea. No abdominal pain Genitourinary: No dysuria or hematuria Musculoskeletal: No back pain. No significant myalgias or arthralgias Neurologic: No headaches, dizziness, or seizures. Hematologic: No east bleeding or bruising. Psychiatric: No anxiety or depression. Physical Exam: Physical Exam BP 99/65 Pulse 78 Temp 36.6 C (97.8 F) (Temporal) Constitutional: General: Patient is not in acute distress. Appearance: Normal appearance; not ill-appearing. HENT: Head: Normocephalic. Neck: Trach site clean/dry Nose: No congestion or rhinorrhea. Cardiovascular: Rate and Rhythm: Normal rate and regular rhythm. Pulses: Normal pulses. Pulmonary: Effort: Pulmonary effort is normal. No respiratory distress. No conversational dyspnea Breath sounds: No stridor. No wheezing. Abdominal: General: There is no distension. Palpations: Abdomen is soft. Tenderness: There is no abdominal tenderness. Musculoskeletal: General: No swelling, tenderness or deformity. Normal range of motion. Cervical back: Normal range of motion. No rigidity. Lymphadenopathy: Cervical: No cervical adenopathy. Skin: General: Skin is warm and dry. Neurological: General: No focal deficit present. Mental Status: Patient is alert and oriented to person, place, and time. Psychiatric: Mood and Affect: Mood normal. Relevant Results: Pathology: N/a Imaging: Imaging No results found. Cardiology, Vascular, and Other Imaging No other imaging results found for the past 7 days CXR personally reviewed Assessment/Plan Problem List Items Addressed This Visit ICD-10-CM Tracheoesophageal fistula J86.0 Relevant Orders XR chest 2 views Ms. Myers is a 55 year old female remote h/o H&N cancer s/p larygectomy with TEP creation -- enlarged to sizeable TEF allowing for aspiration with clinically significant pneumonias. Admitted [place] [facility] in [place] - had esophageal stent and PEG placed. Stent removed recently. She remains on tube feeds. Trach recently replaced for some HD issues. She has follow up with ENT in 2 weeks. Ok for very small sips of liquid a few times a day but will await their recs for additional liberalization of diet. She can see me prn. Huma Thomas, DO Thoracic & Esophageal Surgery [1] Current Outpatient Medications: acetaminophen (Tylenol) 325 mg tablet, Take 2 tablets (650 mg) by mouth every 4 hours if needed for moderate pain (4 - 6) or mild pain (1 - 3)., Disp: 30 tablet, Rfl: 0 docusate sodium (Colace) 100 mg capsule, Take 1 tablet (100 mg) by mouth once daily. Give via G-tube, Disp: , Rfl: folic acid (Folvite) 1 mg tablet, Take 1 tablet (1 mg) by g-tube once daily., Disp: , Rfl: insulin lispro 100 unit/mL injection, Inject 0-5 Units under the skin every 4 hours. Take as directed per insulin instructions., Disp: , Rfl: levothyroxine (Synthroid, Levoxyl) 137 mcg tablet, Take 1 tablet (137 mcg) by g-tube early in the morning.., Disp: , Rfl: levothyroxine (Synthroid, Levoxyl) 137 mcg tablet, Take 1 tablet (137 mcg) by g-tube once daily., Disp: 30 tablet, Rfl: 3 liothyronine (Cytomel) 5 mcg tablet, Take 1 tablet (5 mcg) by g-tube once daily., Disp: , Rfl: liothyronine (Cytomel) 5 mcg tablet, Take 1 tablet (5 mcg) by g-tube once daily., Disp: 30 tablet, Rfl: 2 multivitamin with minerals tablet, Take 1 tablet by mouth once daily., Disp: 30 tablet, Rfl: 11 oxygen (O2) gas therapy, Inhale 1 Dose once every 24 hours., Disp: , Rfl: sertraline (Zoloft) 50 mg tablet, Take 1 tablet (50 mg) by g-tube once daily., Disp: , Rfl: thiamine (Vitamin B-1) 100 mg tablet, Take 1 tablet (100 mg) by g-tube once daily., Disp: 30 tablet, Rfl: 11 atorvastatin (Lipitor) 20 mg tablet, Take 1 tablet (20 mg) by g-tube once daily at bedtime., Disp: , Rfl: [Paused] carvedilol (Coreg) 6.25 mg tablet, Take 1 tablet (6.25 mg) by mouth 2 times a day. (Patient taking differently: Take 1 tablet (6.25 mg) by g-tube 2 times a day.), Disp: 30 tablet, Rfl: 0 ipratropium-albuteroL (Duo-Neb) 0.5-2.5 mg/3 mL nebulizer solution, Take 3 mL by nebulization 4 times a day as needed for wheezing or shortness of breath., Disp: , Rfl: pantoprazole (ProtoNix) 40 mg packet, Take 1 packet (40 mg) by mouth once daily., Disp: , Rfl: documented in this encounter [facility] Work Phone: 07-16-2025 Hospital Discharge instructions Wilmer Olson MD - 07/16/2025 5:23 PM EDT We will ask your head and neck surgeons to call you to set up an appointment to follow up with them. Do not eat or drink anything by mouth. Whenever you are able, try to spit out your oral secretions and saliva rather than swallowing them. documented in this encounter [facility] Work Phone: 06-26-2025 Plan of care note The patient's goals for the shift include The clinical goals for the shift include pt will remain hds by 700 on 06/26/25 Pt dc to snf, report called [facility] Work Phone: 06-26-2025 Miscellaneous Notes The patient's goals for the shift include The clinical goals for the shift include pt will remain hds by 700 on 06/26/25 Pt dc to snf, report called 55 y.o. 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 She initially presented to [facility] ([facility]) with hypoxia (satting 80% on 2L NC), placed on NRB by stoma, and weaned down from 10L to 5L trach mask satting 100%, and received Lasix 40 mg for yonis diuresis. She was founded with E coli/klebsiella pneumonaie, but asymptomatic and Abx not started. She was then transferred to [facility] for acute on chronic hypoxic respiratory failure. She was on 11L O2, and weaned off O2 on RA. On this floor, she was started on Ceftriaxone for empiric treatment of her E coli/klebsiella pneumoniae pending susceptibles. She was transferred to our [facility] 06/22 stable on RA. Her Carvedilol and Midodrine were held initially and intermittently in the setting of soft blood pressures (1002/70s). A TTE was performed due to initial concerns of small bilateral pleural effusions founded on CT Chest that showed normal LVEF (60-65%), RV systolic function, and normal heart anatomy, and BNP 322. No concerns for volume overload at this time. ID examined her and concluded that her WBC/Urine Cx < 100K CFU was not a UTI, and her Ceftriaxone was discontinued. Her tube feeds through her PEG tube were advanced as tolerated to 35 mL/hr. Nutrition assessed her and a decision to continue her on nocturnal 12 hours tube feeds at 70 mL/hr was made to reduce risk of aspiration in anticipation of discharge to SNF. Her PEG tube remained free of erythema, drainage, or infection throughout. She was founded with some mild wounds on pressure points of her body and seen by Wound nurse for treatment. Patient had good functional status and stable on RA since transferred to our medicine floor. She will be discharged to [facility] with her Carvedilol held as BP has been optimal. She has referrals in place for PCP in 6 wks (repeat thyroid labs, outpatient PFTs), Dr. Huma Thomas (for stent exchange 07/16 and post-op visit)and ENT to establish care with Dr. Isidra Rutherford. The patient's goals for the shift include The clinical goals for the shift include pt will remain hds by 700 on 06/26/25 Over the shift, the patient did not make progress toward the following goals. Barriers to progression include . Recommendations to address these barriers include . Problem: Skin Goal: Decreased wound size/increased tissue granulation at next dressing change Flowsheets (Taken 06/25/2025 0662) Decreased wound size/increased tissue granulation at next dressing change: Promote sleep for wound healing Protective dressings over bony prominences Goal: Participates in plan/prevention/treatment measures Flowsheets (Taken 06/25/2025 2977) Participates in plan/prevention/treatment measures: Elevate heels Discuss with provider PT/OT consult Goal: Prevent/manage excess moisture Flowsheets (Taken 06/25/20251456) Prevent/manage excess moisture: Moisturize dry skin Cleanse incontinence/protect with barrier cream Goal: Prevent/minimize sheer/friction injuries Flowsheets (Taken 06/25/20251456) Prevent/minimize sheer/friction injuries: Turn/reposition every 2 hours/use positioning/transfer devices Goal: Promote/optimize nutrition Flowsheets (Taken 06/25/20251456) Promote/optimize nutrition: Assist with feeding Goal: Promote skin healing Flowsheets (Taken 06/25/20251456) Promote skin healing: Turn/reposition every 2 hours/use positioning/transfer devices The patient's goals for the shift include The clinical goals for the shift include Patient will remain free form SOB during this shift. CHW met with patient at bedside, Patient requested ETOH resources. CHW provided patient with [facility] meetings, and other varies ETOH resources in patients area. Community Resource Name: Phone Number: Staff Member: Discussed the following topics on behalf of the patient: [] Behavioral Health Assistance [] Case Management [] Insulating Machine Operator Assistance [] Digital Equity Assistance [] Dental Health Assistance [] Education Assistance [] Employment Assistance [] Financial Strain Relief Assistance [] Food Insecurity Assistance [] Healthcare Coverage Assistance [] Housing Stability Assistance [] IP Violence Relief Assistance [] Legal Assistance [] Physical Activity Assistance [] Social Connection Assistance [] Stress Relief Assistance [x] Substance Abuse Assistance [] Transportation Assistance [] Utility Assistance [] Other: [insert comment here] Next Steps: AIDE Alarcon The patient's goals for the shift include The clinical goals for the shift include patient will remain free from SOB and maintain her o2 level by 95% during this shift. Over the shift, the patient did not make progress toward the following goals. Problem: Skin Goal: Decreased wound size/increased tissue granulation at next dressing change 06/24/20252216 by Denisa Brown RN Flowsheets (Taken 06/24/20252216) Decreased wound size/increased tissue granulation at next dressing change: Promote sleep for wound healing Protective dressings over bony prominences Utilize specialty bed per algorithm 06/24/20252215 by Denisa Brown RN Outcome: Progressing Goal: Participates in plan/prevention/treatment measures Outcome: Progressing Goal: Prevent/manage excess moisture Outcome: Progressing Goal: Prevent/minimize sheer/friction injuries Outcome: Progressing Goal: Promote/optimize nutrition Outcome: Progressing Goal: Promote skin healing Outcome: Progressing The patient's goals for the shift include The clinical goals for the shift include patient will remain free from SOB and maintain her o2 level by 95% during this shift. Over the shift, the patient did not make progress toward the following goals. Problem: Pain - Adult Goal: Verbalizes/displays adequate comfort level or baseline comfort level Outcome: Progressing Problem: Safety - Adult Goal: Free from fall injury Outcome: Progressing Problem: Discharge Planning Goal: Discharge to home or other facility with appropriate resources Outcome: Progressing Problem: Chronic Conditions and Co-morbidities Goal: Patient's chronic conditions and co-morbidity symptoms are monitored and maintained or improved Outcome: Progressing Problem: Nutrition Goal: Nutrient intake appropriate for maintaining nutritional needs Outcome: Progressing Problem: Skin Goal: Decreased wound size/increased tissue granulation at next dressing change Outcome: Progressing Goal: Participates in plan/prevention/treatment measures Outcome: Progressing Goal: Prevent/manage excess moisture Outcome: Progressing Goal: Prevent/minimize sheer/friction injuries Outcome: Progressing Goal: Promote/optimize nutrition Outcome: Progressing Goal: Promote skin healing Outcome: Progressing Problem: Pain Goal: Takes deep breaths with improved pain control throughout the shift Outcome: Progressing Goal: Turns in bed with improved pain control throughout the shift Outcome: Progressing Goal: Walks with improved pain control throughout the shift Outcome: Progressing Goal: Performs ADL's with improved pain control throughout shift Outcome: Progressing Goal: Participates in PT with improved pain control throughout the shift Outcome: Progressing Goal: Free from opioid side effects throughout the shift Outcome: Progressing Goal: Free from acute confusion related to pain meds throughout the shift Outcome: Progressing . The patient's goals for the shift include The clinical goals for the shift include patient will remain free from SOB and maintain her o2 level by 95% during this shift. Problem: Pain - Adult Goal: Verbalizes/displays adequate comfort level or baseline comfort level Outcome: Progressing Problem: Safety - Adult Goal: Free from fall injury Outcome: Progressing Problem: Discharge Planning Goal: Discharge to home or other facility with appropriate resources Outcome: Progressing Problem: Chronic Conditions and Co-morbidities Goal: Patient's chronic conditions and co-morbidity symptoms are monitored and maintained or improved Outcome: Progressing Problem: Nutrition Goal: Nutrient intake appropriate for maintaining nutritional needs Outcome: Progressing Problem: Skin Goal: Decreased wound size/increased tissue granulation at next dressing change Outcome: Progressing Goal: Participates in plan/prevention/treatment measures Outcome: Progressing Flowsheets (Taken 06/24/2025 1602) Participates in plan/prevention/treatment measures: Elevate heels Increase activity/out of bed for meals Goal: Prevent/manage excess moisture Outcome: Progressing Flowsheets (Taken 06/24/2025 1602) Prevent/manage excess moisture: Moisturize dry skin Cleanse incontinence/protect with barrier cream Goal: Prevent/minimize sheer/friction injuries Outcome: Progressing Flowsheets (Taken 06/24/2025 1602) Prevent/minimize sheer/friction injuries: Turn/reposition every 2 hours/use positioning/transfer devices Goal: Promote/optimize nutrition Outcome: Progressing Flowsheets (Taken 06/24/2025 1602) Promote/optimize nutrition: Assist with feeding Goal: Promote skin healing Outcome: Progressing Flowsheets (Taken 06/24/2025 1602) Promote skin healing: Assess skin/pad under line(s)/device(s) Turn/reposition every 2 hours/use positioning/transfer devices Problem: Pain Goal: Takes deep breaths with improved pain control throughout the shift Outcome: Progressing Goal: Turns in bed with improved pain control throughout the shift Outcome: Progressing Goal: Walks with improved pain control throughout the shift Outcome: Progressing Goal: Performs ADL's with improved pain control throughout shift Outcome: Progressing Goal: Participates in PT with improved pain control throughout the shift Outcome: Progressing Goal: Free from opioid side effects throughout the shift Outcome: Progressing Goal: Free from acute confusion related to pain meds throughout the shift Outcome: Progressing Rapid Response Nurse Note: RADAR alert: 8 Pager time: 524 Arrival time: 524 Event end time: 534 Location: [facility] [x] Triage by phone or secure messaging Rapid response initiated by: [] Rapid response RN [] Family [] Nursing Manager Of Pharmacy [] Physician [x] RADAR auto page [] Sepsis auto-page [] RN [] RT [] MIDDLE SCHOOL TUTOR/PA [] Other: Primary reason for call: [] BAT [] New CPAP/BiPAP [] Bleeding [] Change in mental status [] Chest pain [] Code blue [] FiO2 >/= 50% [] HR </= 40 bpm [] HR >/= 130 bpm [] Hyperglycemia [] Hypoglycemia [x] RADAR [] RR </= 8 bpm [] RR >/= 30 bpm [] SBP </= 90 mmHg [] SpO2 < 90% [] Seizure [] Sepsis [] Shortness of breath [] Staff concern: see comments Initial VS and/or RADAR VS: T 36.8 C; HR 92; RR 16; BP 94/65; SPO2 91%. Interventions: [x] None [] ABG/VBG [] Assist w/ICU transfer [] BAT paged [] Bag mask [] Blood [] Cardioversion [] Code Blue [] Code blue for intubation [] Code status changed [] Chest x-ray [] EKG [] IV fluid/bolus [] KUB x-ray [] Labs/cultures [] Medication [] Nebulizer treatment [] NIPPV (CPAP/BiPAP) [] Oxygen [] Oral airway [] Peripheral IV [] Palliative care consult [] CT/MRI [] Sepsis protocol [] Suctioned [] Other: Outcome: [] Coded and [] Code blue for intubation [] Coded and transferred to ICU [] on division [x] Remained on division (no change) [] Remained on division + additional monitoring [] Remained in ED [] Transferred to ED [] Transferred to ICU [] Transferred to inpatient status [] Transferred for interventions (procedure) [] Transferred to ICU stepdown [] Transferred to surgery [] Transferred to telemetry [] Sepsis protocol [] STEMI protocol [] Stroke protocol [x] Bedside nurse instructed to page rapid response for any concerns or acute change in condition/VS Additional Comments: Reviewed above RADAR VS with bedside RN via phone. Vital signs within patient's current trends. No acute change in condition. No interventions by rapid response team indicated at this time. Staff to page rapid response for any concerns or acute change in condition or VS. The patient's goals for the shift include The clinical goals for the shift include pts pulse ox will remain above 95% by 700 on 06/24/25 Over the shift, the patient did not make progress toward the following goals. Barriers to progression include . Recommendations to address these barriers include . The patient's goals for the shift include The clinical goals for the shift include Patient remains free from injury during shift Patient remains free from injury during shift. She had intermittent pain relieved with pain medication. Tube feeding started and patient tolerating well. Associated Problem(s): Acute hypoxic respiratory failure 55 y.o. 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 She then presented to [facility] on 06/19 with acute on chronic hypoxic respiratory failure which improved after diuresis. Now weaned to baseline 2L O2 via trach mask. Breathing comfortably, esophageal stent in unchanged position. Recommendations: - No indication for thoracic surgery indication at this time in light of respiratory status back at baseline - Patient is scheduled for EGD with stent exchange on 07/[address] Thomas and appt scheduled for 06/24/25 - Rest of care per primary team, thoracic surgery will sign off, plage with questions [phone] The patient's goals for the shift include The clinical goals for the shift include Pt. will remain HDS throuhgout shift Over the shift, the patient did not make progress toward the following goals. Barriers to progression include Problem: Pain - Adult Goal: Verbalizes/displays adequate comfort level or baseline comfort level Outcome: Progressing Problem: Safety - Adult Goal: Free from fall injury Outcome: Progressing Problem: Discharge Planning Goal: Discharge to home or other facility with appropriate resources Outcome: Progressing Problem: Chronic Conditions and Co-morbidities Goal: Patient's chronic conditions and co-morbidity symptoms are monitored and maintained or improved Outcome: Progressing Problem: Nutrition Goal: Nutrient intake appropriate for maintaining nutritional needs Outcome: Progressing Problem: Skin Goal: Decreased wound size/increased tissue granulation at next dressing change Outcome: Progressing Goal: Participates in plan/prevention/treatment measures Outcome: Progressing Goal: Prevent/manage excess moisture Outcome: Progressing Goal: Prevent/minimize sheer/friction injuries Outcome: Progressing Goal: Promote/optimize nutrition Outcome: Progressing Goal: Promote skin healing Outcome: Progressing Problem: Pain Goal: Takes deep breaths with improved pain control throughout the shift Outcome: Progressing Goal: Turns in bed with improved pain control throughout the shift Outcome: Progressing Goal: Walks with improved pain control throughout the shift Outcome: Progressing Goal: Performs ADL's with improved pain control throughout shift Outcome: Progressing Goal: Participates in PT with improved pain control throughout the shift Outcome: Progressing Goal: Free from opioid side effects throughout the shift Outcome: Progressing Goal: Free from acute confusion related to pain meds throughout the shift Outcome: Progressing . Recommendations to address these barriers include . The patient's goals for the shift include The clinical goals for the shift include Pt. will remain HDS throuhgout shift Problem: Pain - Adult Goal: Verbalizes/displays adequate comfort level or baseline comfort level Outcome: Progressing Problem: Safety - Adult Goal: Free from fall injury Outcome: Progressing Problem: Discharge Planning Goal: Discharge to home or other facility with appropriate resources Outcome: Progressing Problem: Chronic Conditions and Co-morbidities Goal: Patient's chronic conditions and co-morbidity symptoms are monitored and maintained or improved Outcome: Progressing Problem: Nutrition Goal: Nutrient intake appropriate for maintaining nutritional needs Outcome: Progressing Problem: Skin Goal: Decreased wound size/increased tissue granulation at next dressing change Outcome: Progressing Flowsheets (Taken 06/22/2025836) Decreased wound size/increased tissue granulation at next dressing change: Promote sleep for wound healing Protective dressings over bony prominences Utilize specialty bed per algorithm Goal: Participates in plan/prevention/treatment measures Outcome: Progressing Flowsheets (Taken 06/22/2025836) Participates in plan/prevention/treatment measures: Discuss with provider PT/OT consult Elevate heels Increase activity/out of bed for meals Goal: Prevent/manage excess moisture Outcome: Progressing Flowsheets (Taken 06/22/2025836) Prevent/manage excess moisture: Cleanse incontinence/protect with barrier cream Monitor for/manage infection if present Moisturize dry skin Follow provider orders for dressing changes Goal: Prevent/minimize sheer/friction injuries Outcome: Progressing Flowsheets (Taken 06/22/2025836) Prevent/minimize sheer/friction injuries: Use pull sheet Turn/reposition every 2 hours/use positioning/transfer devices Utilize specialty bed per algorithm Complete micro-shifts as needed if patient unable. Adjust patient position to relieve pressure points, not a full turn HOB 30 degrees or less Goal: Promote/optimize nutrition Outcome: Progressing Flowsheets (Taken 06/22/2025836) Promote/optimize nutrition: Discuss with provider if NPO > 2 days Monitor/record intake including meals Goal: Promote skin healing Outcome: Progressing Flowsheets (Taken 06/22/2025836) Promote skin healing: Assess skin/pad under line(s)/device(s) Protective dressings over bony prominences Turn/reposition every 2 hours/use positioning/transfer devices Rotate device position/do not position patient on device Ensure correct size (line/device) and apply per clay modeler instructions Problem: Pain Goal: Takes deep breaths with improved pain control throughout the shift Outcome: Progressing Goal: Turns in bed with improved pain control throughout the shift Outcome: Progressing documented in this encounter [facility] Work Phone: 06-26-2025 Nurse Note Spoke to lilliam, report given [facility] 06-26-2025 Nurse Note Spoke to lilliam, report given documented in this encounter [facility] Work Phone: 06-26-2025 History of Present illness Narrative DISCHARGE MEDICATION REVIEW BY PHARMACY NAME: Vj Myers SERVICE DATE: 06/26/2025 SERVICE TIME: 1:51 PM The following discharge medications were reviewed by a pharmacist. The following recommendations were made: remove omeprazole 40 mg by mouth daily as there was another order for pantoprazole packets 40 mg via PEG daily Dispo: [facility] Medication List PAUSE taking these medications carvedilol 6.25 mg tablet; Wait to take this until your doctor or other care provider tells you to start again.; If patient has pressures elevated with systolic's greater than 140 can resume. ; Commonly known as: Coreg; Take 1 tablet (6.25 mg) by mouth 2 times a day.; What changed: how to take this furosemide 20 mg tablet; Wait to take this until your doctor or other care provider tells you to start again.; If you notice weight gain of 2-3lb's or significant lower extremity swelling can take one dose as needed. ; Commonly known as: Lasix; Ask about: Should I take this medication? START taking these medications insulin lispro 100 unit/mL injection; Inject 0-5 Units under the skin every 4 hours. Take as directed per insulin instructions. CHANGE how you take these medications acetaminophen 325 mg tablet; Commonly known as: Tylenol; Take 2 tablets (650 mg) by mouth every 4 hours if needed for moderate pain (4 - 6) or mild pain (1 - 3).; What changed: how to take this docusate sodium 100 mg tablet; Commonly known as: Colace; What changed: Another medication with the same name was removed. Continue taking this medication, and follow the directions you see here. ipratropium-albuteroL 0.5-2.5 mg/3 mL nebulizer solution; Commonly known as: Duo-Neb; Take 3 mL by nebulization 4 times a day as needed for wheezing or shortness of breath.; What changed: when to take this, reasons to take this sertraline 50 mg tablet; Commonly known as: Zoloft; Take 1 tablet (50 mg) by g-tube once daily.; What changed: how to take this, Another medication with the same name was removed. Continue taking this medication, and follow the directions you see here. CONTINUE taking these medications atorvastatin 20 mg tablet; Commonly known as: Lipitor folic acid 1 mg tablet; Commonly known as: Folvite * levothyroxine 137 mcg tablet; Commonly known as: Synthroid, Levoxyl * levothyroxine 137 mcg tablet; Commonly known as: Synthroid, Levoxyl; Take 1 tablet (137 mcg) by g-tube once daily. * liothyronine 5 mcg tablet; Commonly known as: Cytomel * liothyronine 5 mcg tablet; Commonly known as: Cytomel; Take 1 tablet (5 mcg) by g-tube once daily. oxygen gas therapy; Commonly known as: O2; Inhale 1 Dose once every 24 hours. pantoprazole 40 mg packet; Commonly known as: ProtoNix thiamine 100 mg tablet; Commonly known as: Vitamin B-1; Take 1 tablet (100 mg) by g-tube once daily. * This list has 4 medication(s) that are the same as other medications prescribed for you. Read the directions carefully, and ask your doctor or other care provider to review them with you. STOP taking these medications metoclopramide 5 mg/mL injection; Commonly known as: Reglan omeprazole [address] capsule; Commonly known as: PriLOSEC ondansetron 4 mg tablet; Commonly known as: Zofran oxyCODONE 5 mg/5 mL solution; Commonly known as: Roxicodone ASK your doctor about these medications Certavite-Antioxidant 18-400 mg-mcg tablet; Generic drug: multivitamin with minerals; Take 1 tablet by mouth once daily. - carvedilol and furosemide are being held as the patient's blood pressure has been low through the admission - omeprazole is being discontinued as there is a continuation order for pantoprazole packets Meaghan Babin PharmD PGY-1 Outpatient Coordinator 06/26/25 1006 Rapid Rounds Attendance Provider;Care Transitions;Nurse Expected Discharge Disposition SNF ([facility]) Review at Escalation Rounds No escalation needed Pt medically ready for DC today. 1311-DC paperwork sent to [facility]. 06/25/25 1010 Rapid Rounds Attendance Care Transitions;Provider;Nurse Expected Discharge Disposition SNF ([facility]) Today we still await: Other (Comment) Additional comments: SNF able to admit pt on 06/26 when bed is available Review at Escalation Rounds No escalation needed 1615-Transport confirmed for 1400 via [facility] ([phone]) to [facility] on 06/26. N2N # for cracking unit operator (Lilliam) is [phone]. Medical team, pt's RN, resource RN, and pt's sign Ryne velasquez. 7000 completed by DSC. Vj Myers is a 55 y.o. female admitted on 06/22/2025 and on day 3 from MICU presenting with aspiration PNA/pneumonitis. Subjective Per nutrition recs, tube feeds were increased to nocturnal feeds at 70 mL/hr. Patient is without nausea, vomiting, is tolerating it overall. Continues to have the same consistent pain around PEG tube, controlled with PRN Oxy and Acetaminophen. She is okay with going to [facility] for discharge and dispo planning in process. Objective Last Recorded Vitals Temp: [36.3 C (97.3 F)] 36.3 C (97.3 F) Heart Rate: [61-85] 85 Resp: [16-18] 17 BP: (94-132)/(65-87) 132/87 FiO2 (%): [35 %] 35 % SpO2 Readings from Last 1 Encounters: 06/25/25 97% Intake/Output last 3 Shifts: No intake/output data recorded. I/O last 3 completed shifts: In: 400 (4.4 mL/kg) [NG/GT:400] Out: 1900 (20.9 mL/kg) [Urine:1900 (0.6 mL/kg/hr)] Weight: 90.9 kg Physical Exam Constitutional: Comments: Patient unable to speak due to esophageal stent placement, can communicate via writing Neck: Comments: Stoma at site of tracheostomy without trach in place Cardiovascular: Rate and Rhythm: Normal rate and regular rhythm. Pulses: Normal pulses. Heart sounds: Normal heart sounds. Pulmonary: Effort: Pulmonary effort is normal. Breath sounds: Normal breath sounds. Comments: On room air, no accessory muscles usage Abdominal: Palpations: Abdomen is soft. Tenderness: There is abdominal tenderness. Comments: PEG tube in place, ecchymotic bruises along lower abdomen. Tenderness on light palpation only near PEG tube site. Genitourinary: Comments: Toro cather in place. Urine is yellow Musculoskeletal: General: Normal range of motion. Skin: General: Skin is warm. Comments: Bruising noted on lower abdomen. Skin around and on PEG is free of erythema, drainage, and infection. Neurological: General: No focal deficit present. Mental Status: She is alert and oriented to person, place, and time. Psychiatric: Mood and Affect: Mood normal. Relevant Results CMP Results from last 7 days Lab Units 06/24/25 1007 06/23/25 1522 06/22/25 0423 06/21/25 1645 SODIUM mmol/L 134* 135* 135* 135* POTASSIUM mmol/L 4.3 4.0 4.4 4.2 CO2 mmol/L 34* 33* 34* 34* ANION GAP mmol/L 7* 9* 7* 8* BUN mg/dL 9 8 8 10 CREATININE mg/dL 0.53 0.50 0.56 0.55 GLUCOSE mg/dL 104* 78 90 112* EGFR mL/min/1.73m*2 >90 >90 >90 >90 CALCIUM mg/dL 8.0* 8.2* 8.0* 8.2* MAGNESIUM mg/dL 2.28 -- 1.56* 1.44* PHOSPHORUS mg/dL 3.7 4.3 3.6 -- CBC Results from last 72 hours Lab Units 06/24/25 1007 06/23/25 1522 WBC AUTO x10*3/uL 10.3 9.5 HEMOGLOBIN g/dL 8.8* 8.3* HEMATOCRIT % 29.1* 26.6* MCV fL 107* 100 PLATELETS AUTO x10*3/uL 260 257 Liver Panel Results from last 7 days Lab Units 06/22/25 0423 06/21/25 1645 06/19/25 1932 ALT U/L 10 11 14 AST U/L 38 42* 74* ALK PHOS U/L 212* 243* 308* Results from last 7 days Lab Units 06/22/25 0435 INR 1.0 Urinalysis Lab Results Component Value Date LEUKOCYTESU 25 Irma/uL (A) 06/20/2025 NITRITEU NEGATIVE 06/20/2025 WBCU 1-5 06/20/2025 RBCU 6-10 (A) 06/20/2025 BLOODU NEGATIVE 06/20/2025 PROTUR 10 (TRACE) 06/20/2025 GLUCOSEU Normal 06/20/2025 KETONESU NEGATIVE 06/20/2025 HYALCASTU 1+ (A) 04/19/2024 Other Labs Results from last 7 days Lab Units 06/24/25 1007 06/23/25 1522 06/22/25 0435 PROCALCITONIN ng/mL -- -- 1.10* WBC AUTO x10*3/uL 10.3 9.5 6.7 HEMOGLOBIN g/dL 8.8* 8.3* 8.2* Imaging -no new imaging Inpatient Medications Scheduled Medications[1] Continuous Medications[2] PRN Medications[3] Assessment/Plan 55 y.o. 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 Monitored via tele, weaned off to 44% FiO2 via trach collar, discharged stable to [facility]. She then presented from [facility] to [facility] on 7/31 with acute on chronic hypoxic respiratory failure which improved after diuresis. Required O2 from trach (initally 10L trach mask to 5L Trach), now weaned off O2 and on RA. Founded with Klebsiella/E.coli ESBL UTI, initially on Ceftriaxone, now discontinued. Transferred to our floor stable. Holding her Carvedilol and midodrine. Started Enoxaparin (Lovenox) 50 mg SubQ for DVT prophylaxis on 06/24. Tfs during MICU at 35 mL/hr per nutrition, patient started at 15mL/hr on our floor, and switched to 70mL/hr nocturnal feeds in anticipation of discharge and to reduce risk of aspiration per nutrition. Updates 06/23: -Per nutrition, TFs now nocturnal 12 hrs at 70 mL/hr, tolerating it well -Holding Carvedilol and Midodrine for BP management -Started Enoxaparin (Lovenox) 50 mg SubQ for DVT prophylaxis -Wants home health, plans to consult nutrition to ask about Tfs (continous, bolus, or night feeds, with night feeds likely preferred). #Acute on chronic hypoxic respiratory failure :::SCC of the supraglottic region (2007), s/p chemo/rads and laryngectomy with flap/TEF creation for phonation and insertion of speech prosthesis (04/30/2009); recent esophageal stent placement (06/12/2025) with Dr. Thomas, and PEG tube placement tracheostomy tube removal (06/13 to avoid erosion with esophageal stent present. ::Discharged to SNF post tracheal decannulation, on 2L O2 NC as baseline ::Presented to ED with hypoxia with increased L oxygen requirement, weaned off now on RA ::Per Thoracic Surgery, pt keeping esophageal stent for at least 6 weeks, no other interventions at this time (definitive repair later) ::Unable to speak with esophageal stent in place -On room air, supportive O2 PRN via trach mask -PRN DuoNebs and O2 therapy #Tube Feeds #Hypoglycemia ::Per nutrition's last note, has been on TFs TwoCal HTN via goal rate 35 mL/hr during hospitalization. Changed 06/24 per to 12 hours nocturnal feeds at 70 mL/hr in anticipation of discharge and to avoid aspiration -On nocturnal TF, goal 70 mL/hr -Hypoglycemia protocol #Blood Pressure Control ::Soft BPs (80/60s) throughout ICU stay and post-transfer 06/22 to medicine floor, but denies headache, dizziness, chest pain, confusion, SOB. BP yesterday 06/23 hypertensive. For greater BP control, will hold Carvedilol and Midodrine. -hold Carvedilol and Midodrine #PEG site pain ::Pain around PEG tube on slight palpation, free of erythema, drainage, infection -Pain control with Acetaminophen 650 mg gtub q4h PRN and Oxycodone 5 mg gtub q6h PRN #Bilateral pleural effusions ::CT Chest 06/22 with small bilateral pleural effusions have improved when compared to prior CT scan 06/10/2025 ::TTE is normal with LVEF 60-65%, normal RV systolic function, and normal anatomy. BNP 322. Given this, low concerns for volume overload or HF. -No current interventions at this time #Ecoli/Klebsiella ESBL UTI ::Grew ecoli and klebsiella pneumoniae at OSH ::Urine Cx positive for 20-80K Ecoli and Klebsiella pneumonaie/variicola CFU/mL; switched from CFT to Ertapenem due to susceptibility results. Never given Ertapenem however as ID consult rec stopping because WBC/Ucx < 100K CFU, don't believe its a UTI ::Procalcitonin 1.10 -Discontinued Abx per ID recs as WBC/Ucx < 100K CFUs of 2 organisms, don't believe it's a UTI #HLD -Continue Atorvastatin tablet 20 mg nightly via PEG tube #Hypothyroidism -Continue Levothyroxine tablet 137 mcg and Liiothyronine tablet 5mcg daily via PEG tube #Constipation -Senna if needed #Mood Disorder -Continue Sertraline tablet 50mg daily via PEG tube #Substance Use Disorder ::reportedly drinks >1 pint of liquor daily, was on CIWA protocol, no need to continue -Continue thiamine tablet 100 mg daily and Folic acid via PEG tube ##FEN Fluids: Replete PRN Electrolytes: Replete PRN Nutrition: Enteral feeding with NPO TwoCal HN; PEG (percutaneous endoscopic gastric); 15; 100; Water; Tap water; Every 6 hours ##Prophylaxis Antimicrobials: Discontinued Abx DVT PPX: Enoxaparin (Lovenox) 50 mg SubQ Bowel Regimen: Pantoprazole injection 40 mg ##Hardware LDA: pIV, toro urinary catheter, gastrostomy/enterostomy 20 Fr YOLANDA Oxygen: On room air ##Social Disposition: -Home: Accepted at [facility], will arrange transport and plan to discharge tomorrow morning. -F/U: outpatient PFTs, PCP in 6 wks (repeat thyroid labs), Dr. Thomas (for stent exchange), EGD scheduled , ENT Code Status: Full Code HPOA: Extended Emergency Contact Information Primary Emergency Contact: KARIN MURDOCK Address: [address] [place] [address] of [facility] Mobile Relation: Sister Preferred language: Surinamese Couples Therapist needed? No Secondary Emergency Contact: RYNE SALCEDO Mobile Relation: Significant Other Preferred language: Surinamese Couples Therapist needed? No Jeimy Batista MD Internal Medicine PGY-1 Patient discussed with attending physician, Beatris Neil DO. [1] atorvastatin, 20 mg, g-tube, Nightly enoxaparin, 40 mg, subcutaneous, Daily esomeprazole, 40 mg, g-tube, Daily before breakfast folic acid, 1 mg, g-tube, Daily insulin lispro, 0-5 Units, subcutaneous, TID AC levothyroxine, 137 mcg, g-tube, Daily liothyronine, 5 mcg, g-tube, Daily perflutren lipid microspheres, 0.5-10 mL of dilution, intravenous, Once in imaging sennosides, 1 tablet, oral, Nightly sertraline, 50 mg, g-tube, Daily sulfur hexafluoride microsphr, 2 mL, intravenous, Once in imaging thiamine, 100 mg, g-tube, Daily [2] [3] PRN medications: acetaminophen, dextrose, dextrose, glucagon, glucagon, ipratropium-albuteroL, oxyCODONE, oxygen Cosigned by Beatris Neil DO at 06/25/2025 2:51 PM EDT Associated attestation - Beatris Neil DO - 06/25/2025 2:51 PM EDT Attending Physician Attestation I saw and evaluated the patient. I personally obtained the campos and critical portions of the history and physical exam or was physically present for campos and critical portions performed by the resident. I reviewed the resident's documentation and discussed the patient with the resident. I agree with the documentation as detailed in the note unless stated otherwise in this attestation. Patient seen and examined at bedside. She is now agreeable to going to SNF ([facility]) which is able to accept her. The patient denies any pain, nausea, or other concerns. She was switched over to nightly tube feeds per nutrition recs and tolerated them well. She remains medically stable for discharge. Plan to dc tomorrow to SNF (due to bed availability at facility). Level of MDM: Moderate Risk: Moderate The patient/family had opportunity to ask questions. All questions were answered to the best of my ability. Nutrition Assessment Reason for Assessment: Received request by Provider via Secure Chat to transition to nocturnal feeds. Patient is tolerating Two Gonsalo HN at 35 ml/hr. Nutrition Significant Labs: BG POCT trend: Results from last 7 days Lab Units 06/24/25 1213 06/24/25 0521 06/23/25 2351 06/23/257 06/23/25 1601 POCT GLUCOSE mg/dL 98 102* 93 90 84 , Renal Lab Trend: Results from last 7 days Lab Units 06/24/25 1007 06/23/25 1522 06/22/25 0423 06/21/25 1645 06/21/25 1645 POTASSIUM mmol/L 4.3 4.0 4.4 -- 4.2 PHOSPHORUS mg/dL 3.7 4.3 3.6 < > -- SODIUM mmol/L 134* 135* 135* -- 135* MAGNESIUM mg/dL 2.28 -- 1.56* -- 1.44* EGFR mL/min/1.73m*2 >90 >90 >90 -- >90 BUN mg/dL 9 8 8 -- 10 CREATININE mg/dL 0.53 0.50 0.56 -- 0.55 < > = values in this interval not displayed. Nutrition Specific Medications: Scheduled medications atorvastatin, 20 mg, g-tube, Nightly enoxaparin, 40 mg, subcutaneous, Daily esomeprazole, 40 mg, g-tube, Daily before breakfast folic acid, 1 mg, g-tube, Daily insulin lispro, 0-5 Units, subcutaneous, TID AC levothyroxine, 137 mcg, g-tube, Daily liothyronine, 5 mcg, g-tube, Daily perflutren lipid microspheres, 0.5-10 mL of dilution, intravenous, Once in imaging sennosides, 1 tablet, oral, Nightly sertraline, 50 mg, g-tube, Daily sulfur hexafluoride microsphr, 2 mL, intravenous, Once in imaging thiamine, 100 mg, g-tube, Daily Continuous medications PRN medications PRN medications: acetaminophen, dextrose, dextrose, glucagon, glucagon, ipratropium-albuteroL, oxyCODONE, oxygen I/O: ; Stool Appearance: Soft, Formed (06/23/25 1413) Dietary Orders (From admission, onward) Start Ordered 06/24/25 1800 Enteral feeding with NPO TwoCal HN; PEG (percutaneous endoscopic gastric); 70; 100; Water; Tap water; Every 6 hours Diet effective now Question Answer Comment Tube feeding formula: TwoCal HN Feeding route: PEG (percutaneous endoscopic gastric) Tube feeding continuous rate (mL/hr): 70 Tube feeding flush (mL): 100 Flush type: Water Water type: Tap water Flush frequency: Every 6 hours 06/24/25 1330 06/22/25 0445 May Participate in Room Service With Assistance ( ROOM SERVICE MAY PARTICIPATE WITH ASSISTANCE) Once Question: . Answer: Yes 06/22/25 0444 Estimated Needs: Total Energy Estimated Needs in 24 hours (kCal): (9015-1102) Method for Estimating Needs: 30-35 kcal/kg IBW Total Protein Estimated Needs in 24 Hours (g): 75 g Method for Estimating 24 Hour Protein Needs: 1.5 g/kg IBW Total Fluid Estimated Needs in 24 Hours (mL): 1800 mL Method for Estimating 24 Hour Fluid Needs: 35 ml/kg IBW Nutrition Diagnosis Malnutrition Diagnosis Patient has Malnutrition Diagnosis: Yes Diagnosis Status: Active Malnutrition Diagnosis: Moderate malnutrition related to chronic disease or condition As Evidenced by: mild muscle loss and subcutaneous fat loss per physical exam Nutrition Diagnosis Patient has Nutrition Diagnosis: Yes Diagnosis Status (1): Active Nutrition Diagnosis 1: 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 Nutrition Interventions/Recommendations Nutrition prescription for enteral nutrition Nutrition Recommendations: Transition to Two Gonsalo HN at 70 ml/hr x 12 hours at night. Flush with 60 ml of water before and after TF. Additional water flushes per MD. TF provides ~ 600 ml of water/day. Nutrition Interventions/Goals: Enteral Intake: Management of composition of enteral nutrition, Management of delivery rate of enteral nutrition Education Documentation No documentation found. Nutrition Monitoring and Evaluation Enteral and Parenteral Nutrition Intake Determination: Enteral nutrition intake - To meet > 75% estimated energy needs, Enteral nutrition intake - Tolerate TF at goal rate Goal Status: Goal(s) achieved Time Spent (min): 15 minutes Physical Therapy Physical Therapy Evaluation Patient Name: Vj Myers Department: [facility] 20 Room: A Today's Date: 06/24/2025 Time Calculation Start Time: 1120 Stop Time: 1142 Time Calculation (min): 22 min Assessment/Plan PT Assessment PT Assessment Results: Decreased strength, Decreased endurance, Decreased mobility, Impaired balance Rehab Prognosis: Good Barriers to Discharge Home: Physical needs Physical Needs: High falls risk due to function or environment End of Session Communication: Bedside nurse Assessment Comment: Pt tolerated PT session fairly well. Currently pt presents with dec strength, impaired balance and dec activity tolerance all impacting overall functional mobility and independence. Pt self limiting at time of eval to progress mobility beyond sitting EOB and side steps for positioning. Will continue to follow End of Session Patient Position: Bed, 3 rail up, Alarm on IP OR SWING BED PT PLAN Inpatient or Swing Bed: Inpatient PT Plan Treatment/Interventions: Bed mobility, Gait training, Transfer training, Stair training, Balance training, Strengthening, Endurance training, Therapeutic exercise, Therapeutic activity, Home exercise program, Positioning, Postural re-education PT Plan: Ongoing PT PT Frequency: 3 times per week (during this acute hospitalization) PT Discharge Recommendations: Moderate intensity level of continued care (Based on current functional status and rehab potential, patient is anticipated to tolerate and benefit from 5 or more days per week of skilled rehabilitative therapy after discharge from this acute inpatient hospitalization.) Equipment Recommended upon Discharge: (tbd) PT Recommended Transfer Status: Assist x1 PT - OK to Discharge: Yes (meaning PT eval complete and d/c recommendation made) Subjective PT Visit Info: PT Received On: 06/24/25 General Visit Information: General Reason for Referral: acute on chronic hypoxic respiratory failure Past Medical History Relevant to Rehab: 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 for phonation, alcohol use disorder (reportedly drinks >1 pint of liquor daily), who was recently admitted to thoracic surgery after presenting with aspiration PNA/pneumonitis, now s/p esophageal stent for TEF 06/12/2025 and PEG placement and trach decannulation 06/13 Prior to Session Communication: Bedside nurse Patient Position Received: Bed, 3 rail up, Alarm on General Comment: Pt supine in bed, mostly mouthing words but at times writing on white board to communicate Home Living: Home Living Type of Home: House Lives With: (reports multiple family members and reports they are able to assist) Home Adaptive Equipment: Hospital bed Home Layout: One level Home Access: Stairs to enter without rails Entrance Stairs-Number of Steps: 1 Bathroom Accessibility: reports she also has a recliner she mostly sleeps in Prior Level of Function: Prior Function Per Pt/Caregiver Report Level of [place]: Independent with ADLs and functional transfers Receives Help From: Family ADL Assistance: Independent Ambulatory Assistance: Independent Precautions: Precautions Medical Precautions: Fall precautions, Oxygen therapy device and L/min (trach mask 35% Fi02) Date/Time Vitals Session Patient Position Pulse Resp SpO2 BP MAP (mmHg) 06/24/25 1120 -- -- -- -- 97 % 121/86 -- Objective Pain: Pain Assessment Pain Assessment: 0-10 0-10 (Numeric) Pain Score: 7 Pain Type: Acute pain Pain Location: Leg Pain Interventions: (RN notified per pt request for pain medication) Cognition: Cognition Orientation Level: Oriented X4 General Assessments: General Observation General Observation: PEG tube, external catheter, trach collar at 35% Fi02 Activity Tolerance Endurance: Tolerates 10 - 20 min exercise with multiple rests Sensation Light Touch: No apparent deficits Static Sitting Balance Static Sitting-Balance Support: Feet unsupported, Bilateral upper extremity supported Static Sitting-Level of Assistance: Close supervision Static Standing Balance Static Standing-Balance Support: No upper extremity supported Static Standing-Level of Assistance: Contact guard Functional Assessments: Bed Mobility Bed Mobility: Yes Bed Mobility 1 Bed Mobility 1: Supine to sitting Level of Assistance 1: Minimum assistance Bed Mobility Comments 1: trunk management with HOB elevated Bed Mobility 2 Bed Mobility 2: Sitting to supine Level of Assistance 2: Minimum assistance, Minimal verbal cues Bed Mobility Comments 2: LE management Transfers Transfer: Yes Transfer 1 Transfer From 1: Sit to, Stand to Transfer to 1: Stand, Sit Technique 1: Sit to stand, Stand to sit Transfer Level of Assistance 1: Contact guard Ambulation/Gait Training Ambulation/Gait Training Performed: Yes Ambulation/Gait Training 1 Surface 1: Level tile Device 1: No device Assistance 1: Contact guard Quality of Gait 1: Forward flexed posture, Decreased step length, Diminished heel strike, Shuffling gait Comments/Distance (ft) 1: 3 lateral side steps (pt refusing further mobility) Extremity/Trunk Assessments: RLE RLE : Within Functional Limits LLE LLE : Within Functional Limits Outcome Measures: [facility] Basic Mobility Turning from your back to your side while in a flat bed without using bedrails: A little Moving from lying on your back to sitting on the side of a flat bed without using bedrails: A little Moving to and from bed to chair (including a wheelchair): A little Standing up from a chair using your arms (e.g. wheelchair or bedside chair): A little To walk in hospital room: A lot Climbing 3-5 steps with railing: Total Basic Mobility - Total Score: 15 Encounter Problems Encounter Problems (Active) Balance Pt will complete Tinetti balance assessment with > placing her at low fall risk (Progressing) Start: 06/24/25 Expected End: 07/08/25 Mobility Pt will amb 100ft with LRAD mod I (Progressing) Start: 06/24/25 Expected End: 07/08/25 PT Transfers Pt will perform sit<>stand with LRAD mod I (Progressing) Start: 06/24/25 Expected End: 07/08/25 Pt will perform supine<>sit mod I (Progressing) Start: 06/24/25 Expected End: 07/08/25 Education Documentation Precautions, taught by Brenda Awad PT at 06/24/2025 12:41 PM. Learner: Patient Readiness: Acceptance Method: Explanation Response: Verbalizes Understanding Comment: PT POC, fall precautions, sequencing mobility Body Mechanics, taught by Brenda Awad PT at 06/24/2025 12:41 PM. Learner: Patient Readiness: Acceptance Method: Explanation Response: Verbalizes Understanding Comment: PT POC, fall precautions, sequencing mobility Mobility Training, taught by Brenda Awad PT at 06/24/2025 12:41 PM. Learner: Patient Readiness: Acceptance Method: Explanation Response: Verbalizes Understanding Comment: PT POC, fall precautions, sequencing mobility Education Comments No comments found. 06/24/25 1007 Rapid Rounds Attendance Provider;Care Transitions;Nurse Expected Discharge Disposition (TBD) Today we still await: Clinical stability Review at Escalation Rounds No escalation needed 1304-TCC met with pt to discuss care team reccs for MOD intensity and pt still agreeable with referral being sent to [facility] to review. Pt states she would be open to reviewing SNF list for additional preferences. TCC will update medical team and will continue to follow. 1614-[facility] confirmed they are able to accept. TCC updated pt and medical team. Vj Myers is a 55 y.o. female admitted on 06/22/2025 and on day 2 from MICU presenting with aspiration PNA/pneumonitis. Subjective Having pain around PEG tube site, although site is free and clear of infection, without drainage. Patient is tolerating TFs and is without nausea, vomiting, or belly pain after TFs. Otherwise, no new concerns. She would like to go home, thus plans are being arranged for Home Health to arrange TFs and education, oxygen, and PT to work with her. Objective Last Recorded Vitals Temp: [36.6 C (97.9 F)-36.8 C (98.2 F)] 36.8 C (98.2 F) Heart Rate: [61-92] 61 Resp: [16-18] 18 BP: (94-121)/(58-86) 95/65 FiO2 (%): [35 %] 35 % SpO2 Readings from Last 1 Encounters: 06/24/25 97% Intake/Output last 3 Shifts: I/O this shift: In: 100 [NG/GT:100] Out: 800 [Urine:800] I/O last 3 completed shifts: In: 200 (2.2 mL/kg) [NG/GT:200] Out: 1550 (17.1 mL/kg) [Urine:1550 (0.5 mL/kg/hr)] Weight: 90.9 kg Physical Exam Constitutional: Comments: Patient unable to speak due to esophageal stent placement, can communicate via writing Neck: Comments: Stoma at site of tracheostomy without trach in place Cardiovascular: Rate and Rhythm: Normal rate and regular rhythm. Pulses: Normal pulses. Heart sounds: Normal heart sounds. Pulmonary: Effort: Pulmonary effort is normal. Breath sounds: Normal breath sounds. Comments: On room air, no accessory muscles usage Abdominal: Palpations: Abdomen is soft. Tenderness: There is abdominal tenderness. Comments: PEG tube in place, ecchymotic bruises along lower abdomen. Tenderness on light palpation only near PEG tube site. Genitourinary: Comments: Toro cather in place. Urine is yellow Musculoskeletal: General: Normal range of motion. Skin: General: Skin is warm. Comments: Bruising noted on lower abdomen. Skin around and on PEG is free of erythema, drainage, and infection. Neurological: General: No focal deficit present. Mental Status: She is alert and oriented to person, place, and time. Psychiatric: Mood and Affect: Mood normal. Relevant Results CMP Results from last 7 days Lab Units 06/24/25 1007 06/23/25 1522 06/22/25 0423 06/21/25 1645 SODIUM mmol/L 134* 135* 135* 135* POTASSIUM mmol/L 4.3 4.0 4.4 4.2 CO2 mmol/L 34* 33* 34* 34* ANION GAP mmol/L 7* 9* 7* 8* BUN mg/dL 9 8 8 10 CREATININE mg/dL 0.53 0.50 0.56 0.55 GLUCOSE mg/dL 104* 78 90 112* EGFR mL/min/1.73m*2 >90 >90 >90 >90 CALCIUM mg/dL 8.0* 8.2* 8.0* 8.2* MAGNESIUM mg/dL 2.28 -- 1.56* 1.44* PHOSPHORUS mg/dL 3.7 4.3 3.6 -- CBC Results from last 72 hours Lab Units 06/24/25 1007 06/23/25 1522 06/22/25 0435 WBC AUTO x10*3/uL 10.3 9.5 6.7 HEMOGLOBIN g/dL 8.8* 8.3* 8.2* HEMATOCRIT % 29.1* 26.6* 24.8* MCV fL 107* 100 98 PLATELETS AUTO x10*3/uL 260 257 216 NEUTROS PCT AUTO % -- -- 68.6 LYMPHS PCT AUTO % -- -- 16.7 MONOS PCT AUTO % -- -- 9.1 EOS PCT AUTO % -- -- 3.9 Other labs: BNP 322 Imaging -TTE: Inpatient Medications Scheduled Medications[1] Continuous Medications[2] PRN Medications[3] Assessment/Plan 55 y.o. 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 Monitored via tele, weaned off to 44% FiO2 via trach collar, discharged stable to [facility]. She then presented from [facility] to [facility] on 06/19 with acute on chronic hypoxic respiratory failure which improved after diuresis. Required O2 from trach (initally 10L trach mask to 5L Trach), now weaned off O2 and on RA. Founded with Klebsiella/E.coli ESBL UTI, initially on Ceftriaxone, now discontinued. Transferred to our floor stable. Holding her Carvedilol and midodrine. Started Enoxaparin (Lovenox) 50 mg SubQ for DVT prophylaxis on 06/24. Updates 06/23: -Tfs at goal 35 mL per nutrition last recs) and tolerating it -Holding Carvedilol and Midodrine for BP management -Started Enoxaparin (Lovenox) 50 mg SubQ for DVT prophylaxis -Wants home health, plans to consult nutrition to ask about Tfs (continous, bolus, or night feeds, with night feeds likely preferred). #Acute on chronic hypoxic respiratory failure :::SCC of the supraglottic region (2007), s/p chemo/rads and laryngectomy with flap/TEF creation for phonation and insertion of speech prosthesis (04/30/2009); recent esophageal stent placement (06/12/2025) with Dr. Thomas, and PEG tube placement tracheostomy tube removal (06/13 to avoid erosion with esophageal stent present. ::Discharged to SNF post tracheal decannulation, on 2L O2 NC as baseline ::Presented to ED with hypoxia with increased L oxygen requirement, weaned off now on RA ::Per Thoracic Surgery, pt keeping esophageal stent for at least 6 weeks, no other interventions at this time (definitive repair later) ::Unable to speak with esophageal stent in place -On room air, supportive O2 PRN via trach mask -PRN DuoNebs and O2 therapy #Ecoli/Klebsiella ESBL UTI ::Grew ecoli and klebsiella pneumoniae at OSH ::Urine Cx positive for 20-80K Ecoli and Klebsiella pneumonaie/variicola CFU/mL; switched from CFT to Ertapenem due to susceptibility results. Never given Ertapenem however as ID consult rec stopping because WBC/Ucx < 100K CFU, don't believe its a UTI ::Procalcitonin 1.10 -Discontinued Abx per ID recs as WBC/Ucx < 100K CFUs of 2 organisms, don't believe it's a UTI -Staph aureus/MRSA colonization results pending #Tube Feeds #Hypoglycemia ::Per nutrition's last note, TFs TwoCal HTN via goal rate 35 mL/hr ::No TFs last night post-transfer to floor due to no pumps available, BG decreased 66, now improved 10 -On TF goal 35 mL/hr -Hypoglycemia protocol #Blood Pressure Control ::Soft BPs (80/60s) throughout ICU stay and post-transfer 06/22 to medicine floor, but denies headache, dizziness, chest pain, confusion, SOB. BP yesterday 06/23 hypertensive. For greater BP control, will hold Carvedilol and Midodrine. -hold Carvedilol and Midodrine #PEG site pain ::Pain around PEG tube on slight palpation, free of erythema, drainage, infection -Pain control with Acetaminophen 650 mg gtub q4h PRN and Oxycodone 5 mg gtub q6h PRN #Bilateral pleural effusions ::CT Chest 06/22 with small bilateral pleural effusions have improved when compared to prior CT scan 06/10/2025 ::TTE is normal with LVEF 60-65%, normal RV systolic function, and normal anatomy. BNP 322. Given this, low concerns for volume overload or HF. -No current interventions at this time #HLD -Continue Atorvastatin tablet 20 mg nightly via PEG tube #Hypothyroidism -Continue Levothyroxine tablet 137 mcg and Liiothyronine tablet 5mcg daily via PEG tube #Constipation -Senna if needed #Mood Disorder -Continue Sertraline tablet 50mg daily via PEG tube #Substance Use Disorder ::reportedly drinks >1 pint of liquor daily, was on CIWA protocol, no need to continue -Continue thiamine tablet 100 mg daily and Folic acid via PEG tube ##FEN Fluids: Replete PRN Electrolytes: Replete PRN Nutrition: Enteral feeding with NPO TwoCal HN; PEG (percutaneous endoscopic gastric); 15; 100; Water; Tap water; Every 6 hours ##Prophylaxis Antimicrobials: Discontinued Abx DVT PPX: Enoxaparin (Lovenox) 50 mg SubQ Bowel Regimen: Pantoprazole injection 40 mg ##Hardware LDA: pIV, toro urinary catheter, gastrostomy/enterostomy 20 Fr YOLANDA Oxygen: On room air ##Social Disposition: -Home: consult nutrition for TFs recs (continuous, bolus, night feeds) to reduce aspiration risk, education, oxygen, and PT set up -F/U: outpatient PFTs, PCP in 6 wks (repeat thyroid labs), Dr. Thomas (for stent exchange), EGD scheduled ENT Code Status: Full Code HPOA: Extended Emergency Contact Information Primary Emergency Contact: KARIN MURDOCK Address: [address] [place] [id number] [place] Relation: Sister Preferred language: Surinamese Couples Therapist needed? No Secondary Emergency Contact: RYNE SALCEDO Mobile Relation: Significant Other Preferred language: Surinamese Couples Therapist needed? No Jeimy Batista MD Internal Medicine PGY-1 Patient discussed with attending physician, , who agrees with plan. [1] atorvastatin, 20 mg, g-tube, Nightly enoxaparin, 40 mg, subcutaneous, Daily esomeprazole, 40 mg, g-tube, Daily before breakfast folic acid, 1 mg, g-tube, Daily insulin lispro, 0-5 Units, subcutaneous, TID AC levothyroxine, 137 mcg, g-tube, Daily liothyronine, 5 mcg, g-tube, Daily perflutren lipid microspheres, 0.5-10 mL of dilution, intravenous, Once in imaging sennosides, 1 tablet, oral, Nightly sertraline, 50 mg, g-tube, Daily sulfur hexafluoride microsphr, 2 mL, intravenous, Once in imaging thiamine, 100 mg, g-tube, Daily [2] [3] PRN medications: acetaminophen, dextrose, dextrose, glucagon, glucagon, ipratropium-albuteroL, oxyCODONE, oxygen Cosigned by Beatris Neil DO at 06/24/2025 2:50 PM EDT Associated attestation - Beatris Neil DO - 06/24/2025 2:50 PM EDT Attending Physician Attestation I saw and evaluated the patient. I personally obtained the campos and critical portions of the history and physical exam or was physically present for campos and critical portions performed by the resident. I reviewed the resident's documentation and discussed the patient with the resident. I agree with the documentation as detailed in the note unless stated otherwise in this attestation. Patient seen and examined at bedside. She states she only wants to go home. She states she is familiar with tube feeds at home. From medical standpoint, I believe she will be medically stable for discharge home. Will need to set up home healthcare (TFs and O2). Level of MDM: High Risk: High The patient/family had opportunity to ask questions. All questions were answered to the best of my ability. Vj Myers is a 55 y.o. female admitted on 06/22/2025 and on day 1 from MICU presenting with aspiration PNA/pneumonitis . Subjective Patient is unable to speak due to esophageal stent in place, but can communicate via writing. She endorses pain around PEG tube site. She denies any SOB, headaches, dizziness, chest pain, palpitations, overall asymptomatic. She is hungry and would like jello, however is not able to receive anything by mouth. Objective Last Recorded Vitals Temp: [36.5 C (97.7 F)] 36.5 C (97.7 F) Heart Rate: [67-106] 84 Resp: [7-19] 19 BP: (103-149)/(66-103) 103/66 SpO2 Readings from Last 1 Encounters: 06/23/25 100% Intake/Output last 3 Shifts: I/O this shift: In: - Out: 350 [Urine:350] I/O last 3 completed shifts: In: 250.4 (2.7 mL/kg) [I.V.:50.4 (0.6 mL/kg); NG/GT:150; IV Piggyback:50] Out: 1700 (18.6 mL/kg) [Urine:1700 (0.5 mL/kg/hr)] Weight: 91.5 kg Relevant Results CMP Results from last 7 days Lab Units 06/23/25 1522 06/22/25 0423 06/21/25 1645 06/19/25 1932 06/17/25 0627 SODIUM mmol/L 135* 135* 135* < > 140 POTASSIUM mmol/L 4.0 4.4 4.2 < > 3.3* CO2 mmol/L 33* 34* 34* < > 28 ANION GAP mmol/L 9* 7* 8* < > 11 BUN mg/dL 8 8 10 < > 5* CREATININE mg/dL 0.50 0.56 0.55 < > 0.60 GLUCOSE mg/dL 78 90 112* < > 93 EGFR mL/min/1.73m*2 >90 >90 >90 < > >90 CALCIUM mg/dL 8.2* 8.0* 8.2* < > 8.0* MAGNESIUM mg/dL -- 1.56* 1.44* -- 1.83 PHOSPHORUS mg/dL 4.3 3.6 -- -- -- < > = values in this interval not displayed. CBC Results from last 72 hours Lab Units 06/23/25 1522 06/22/2543406/21/25 1645 WBC AUTO x10*3/uL 9.5 6.7 8.0 HEMOGLOBIN g/dL 8.3* 8.2* 8.9* HEMATOCRIT % 26.6* 24.8* 28.2* MCV fL 100 98 102* PLATELETS AUTO x10*3/uL 257 216 212 NEUTROS PCT AUTO % -- 68.6 -- LYMPHS PCT AUTO % -- 16.7 -- MONOS PCT AUTO % -- 9.1 -- EOS PCT AUTO % -- 3.9 -- Liver Panel Results from last 7 days Lab Units 06/22/25 0423 06/21/25 1645 06/19/25 1932 ALT U/L 10 11 14 AST U/L 38 42* 74* ALK PHOS U/L 212* 243* 308* Results from last 7 days Lab Units 06/22/25434 INR 1.0 Urinalysis Lab Results Component Value Date LEUKOCYTESU 25 Irma/uL (A) 06/20/2025 NITRITEU NEGATIVE 06/20/2025 WBCU 1-5 06/20/2025 RBCU 6-10 (A) 06/20/2025 BLOODU NEGATIVE 06/20/2025 PROTUR 10 (TRACE) 06/20/2025 GLUCOSEU Normal 06/20/2025 KETONESU NEGATIVE 06/20/2025 HYALCASTU 1+ (A) 04/19/2024 Other Labs Results from last 7 days Lab Units 06/23/25 1522 06/22/255 06/21/25 1645 PROCALCITONIN ng/mL -- 1.10* -- WBC AUTO x10*3/uL 9.5 6.7 8.0 HEMOGLOBIN g/dL 8.3* 8.2* 8.9* Results from last 72 hours Lab Units 06/22/25 0435 POCT PH, VENOUS pH 7.38 POCT PCO2, VENOUS mm Hg 60* POCT PO2, VENOUS mm Hg 32* Microbiology and Culture Susceptibility data from last 120 days. Collected Organism Amoxicillin/Clavulanate Ampicillin Ampicillin/Sulbactam Aztreonam Cefazolin Cefazolin (uncomplicated UTIs only) Cefepime Ceftazidime Ceftriaxone Cefuroxime (oral) Ciprofloxacin Ertapenem Gentamicin Levofloxacin Meropenem Nitrofurantoin Piperacillin/Tazobactam 06/20/25 0101 Klebsiella pneumoniae/variicola I R R R R R R R R R I S S I S R R Escherichia coli S S S S S S S S Collected Organism Trimethoprim/Sulfamethoxazole 06/20/25 0101 Klebsiella pneumoniae/variicola R Escherichia coli S Lab Results Component Value Date URINECULTURE 20,000 - 80,000 CFU/mL Escherichia coli (A) 06/20/2025 URINECULTURE (A) 06/20/2025 20,000 - 80,000 CFU/mL Klebsiella pneumoniae/variicola BLOODCULT No growth at 4 days - FINAL REPORT 06/05/2025 Physical Exam Physical Exam Constitutional: Comments: Patient unable to speak due to esophageal stent placement, can communicate via writing Neck: Comments: Stoma at site of tracheostomy without trach in place Cardiovascular: Rate and Rhythm: Normal rate and regular rhythm. Pulses: Normal pulses. Heart sounds: Normal heart sounds. Pulmonary: Effort: Pulmonary effort is normal. Breath sounds: Normal breath sounds. Comments: On room air, no accessory muscles usage Abdominal: Palpations: Abdomen is soft. Tenderness: There is abdominal tenderness. Comments: PEG tube in place, ecchymotic bruises along lower abdomen. Tenderness on light palpation only near PEG tube site Genitourinary: Comments: Toro cather in place. Urine is yellow Musculoskeletal: General: Normal range of motion. Skin: General: Skin is warm. Comments: Bruising noted on lower abdomen Neurological: General: No focal deficit present. Mental Status: She is alert and oriented to person, place, and time. Psychiatric: Mood and Affect: Mood normal. Imaging -pending results of TTE Inpatient Medications Scheduled Medications[1] Continuous Medications[2] PRN Medications[3] Assessment/Plan 55 y.o. 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 Monitored via tele, weaned off to 44% FiO2 via trach collar, discharged stable to SNF. She then presented from [facility] to [facility] on 06/19 with acute on chronic hypoxic respiratory failure which improved after diuresis. Required O2 from trach (initally 10L trach mask to 5L Trach), now weaned off O2 and on RA. Founded with Klebsiella/E.coli ESBL UTI, initially on Ceftriaxone, now discontinued. Transferred to our floor stable. Updates 06/23: -Stopped Abx txt per ID consult recs WBC/Ucx < 100K CFUs of 2 organisms, does not believe its a UTI -Tfs at 15 mL/hr (goal 35 mL per nutrition last recs), will increase as tolerated -TTE and BNP, results pending #Acute on chronic hypoxic respiratory failure :::SCC of the supraglottic region (2007), s/p chemo/rads and laryngectomy with flap/TEF creation for phonation and insertion of speech prosthesis (04/30/2009); recent esophageal stent placement (06/12/2025) with Dr. Thomas, and PEG tube placement tracheostomy tube removal (06/13 to avoid erosion with esophageal stent present. ::Discharged to SNF post tracheal decannulation, on 2L O2 NC as baseline ::Presented to ED with hypoxia with increased L oxygen requirement, weaned off now on RA ::Per Thoracic Surgery, pt keeping esophageal stent for at least 6 weeks, no other interventions at this time (definitive repair later) ::Unable to speak with esophageal stent in place -On room air, supportive O2 PRN via trach mask -PRN DuoNebs and O2 therapy -BNP pending #Ecoli/Klebsiella ESBL UTI ::Grew ecoli and klebsiella pneumoniae at OSH ::Urine Cx positive for 20-80K Ecoli and Klebsiella pneumonaie/variicola CFU/mL; switched from CFT to Ertapenem due to susceptibility results. Never given Ertapenem however as ID consult rec stopping because WBC/Ucx < 100K CFU, don't believe its a UTI ::Procalcitonin 1.10 -Discontinued Abx per ID recs as WBC/Ucx < 100K CFUs of 2 organisms, don't believe it's a UTI -Staph aureus/MRSA colonization results pending #Tube Feeds #Hypoglycemia ::Per nutrition's last note, TFs TwoCal HTN via goal rate 35 mL/hr ::No TFs last night post-transfer to floor due to no pumps available, BG decreased 66 -On TF 15 mL/hr to avoid aspiration, will increase as tolerated to meet goal -Hypoglycemia protocol #Blood Pressure Control ::Soft BPs (80/60s) throughout ICU stay and post-transfer 06/22 to medicine floor, but denies headache, dizziness, chest pain, confusion, SOB ::BP mildly hypertensive this AM (144/06/23) ::BP Regimen in-patient: Midodrine 5mg, Carvedilol tablet 6.25mg -If BP > 140s, hold Midodrine -If BP < 80/60s, reduce Carvedilol dose to 3.125 mg #PEG site pain ::Pain around PEG tube on slight palpation, free of erythema, drainage, infection -Pain control with Acetaminophen 650 mg gtub q4h PRN and Oxycodone 5 mg gtub q6h PRN #Bilateral pleural effusions ::CT Chest 06/22 with small bilateral pleural effusions have improved when compared to prior CT scan 06/10/2025 -TTE performed, results pending -BNP pending #HLD -Continue Atorvastatin tablet 20 mg nightly via PEG tube #Hypothyroidism -Continue Levothyroxine tablet 137 mcg and Liiothyronine tablet 5mcg daily via PEG tube #Constipation -Senna if needed #Mood Disorder -Continue Sertraline tablet 50mg daily via PEG tube #Substance Use Disorder ::reportedly drinks >1 pint of liquor daily, was on CIWA protocol, no need to continue -Continue thiamine tablet 100 mg daily and Folic acid via PEG tube ##FEN Fluids: Replete PRN Electrolytes: Replete PRN Nutrition: Enteral feeding with NPO TwoCal HN; PEG (percutaneous endoscopic gastric); 15; 100; Water; Tap water; Every 6 hours ##Prophylaxis Antimicrobials: Discontinued Abx DVT PPX: Bowel Regimen: Pantoprazole injection 40 mg ##Hardware LDA: pIV, toro urinary catheter, gastrostomy/enterostomy 20 Fr YOLANDA Oxygen: On room air ##Social Disposition: -F/U: outpatient PFTs, PCP in 6 wks (repeat thyroid labs), Dr. Thomas (for stent exchange), EGD scheduled , ENT Code Status: Full Code HPOA: Extended Emergency Contact Information Primary Emergency Contact: KARIN MURDOCK Address: [address] [place] [address] Mobile Relation: Sister Preferred language: Surinamese Couples Therapist needed? No Secondary Emergency Contact: RYNE SALCEDO Mobile Relation: Significant Other Preferred language: Surinamese Couples Therapist needed? No Jeimy Batista MD Internal Medicine PGY-1 [1] atorvastatin, 20 mg, g-tube, Nightly carvedilol, 6.25 mg, g-tube, BID folic acid, 1 mg, g-tube, Daily insulin lispro, 0-5 Units, subcutaneous, TID AC levothyroxine, 137 mcg, g-tube, Daily liothyronine, 5 mcg, g-tube, Daily magnesium sulfate, 4 g, intravenous, Once midodrine, 5 mg, oral, TID pantoprazole, 40 mg, intravenous, Daily perflutren lipid microspheres, 0.5-10 mL of dilution, intravenous, Once in imaging sennosides, 1 tablet, oral, Nightly sertraline, 50 mg, g-tube, Daily sulfur hexafluoride microsphr, 2 mL, intravenous, Once in imaging thiamine, 100 mg, g-tube, Daily [2] [3] PRN medications: acetaminophen, dextrose, dextrose, glucagon, glucagon, ipratropium-albuteroL, oxyCODONE, oxygen Cosigned by Daniela Covarrubias MD MPH at 06/23/2025 7:09 PM EDT Associated attestation - Daniela Covarrubias MD MPH - 06/23/2025 7:09 PM EDT I saw and evaluated the patient. I personally obtained the campos and critical portions of the history and physical exam or was physically present for campos and critical portions performed by the resident/fellow. I reviewed the resident/fellow's documentation and discussed the patient with the resident/fellow. I agree with the resident/fellow's medical decision making as documented in the note. Please refer to the attestation of the note from yesterday for details. Vj Myers is a 55 y.o. female on day 1 of admission presenting with Acute hypoxic respiratory failure. Subjective No events overnight Objective Physical Exam Constitutional: Appearance: Normal appearance. Comments: Fatigued female resting in the bed, in NAD Pulmonary: Comments: Oxygenating well on trach collar - 3 LPM Neurological: General: No focal deficit present. Mental Status: She is alert and oriented to person, place, and time. Psychiatric: Mood and Affect: Mood normal. Behavior: Behavior normal. Last Recorded Vitals Blood pressure 103/66, pulse 84, temperature 36.5 C (97.7 F), temperature source Temporal, resp. rate 19, height 1.6 m (5' 3), weight 91.5 kg (201 lb 11.2 oz), SpO2 100%. Intake/Output last 3 Shifts: I/O last 3 completed shifts: In: 250.4 (2.7 mL/kg) [I.V.:50.4 (0.6 mL/kg); NG/GT:150; IV Piggyback:50] Out: 1700 (18.6 mL/kg) [Urine:1700 (0.5 mL/kg/hr)] Weight: 91.5 kg Relevant Results Scheduled medications Scheduled Medications[1] Continuous medications Continuous Medications[2] PRN medications PRN Medications[3] CT chest wo IV contrast 06/22/2025 Narrative Interpreted By: Lorenzo Urrutia, STUDY: CT CHEST WO IV CONTRAST; 06/22/2025 11:59 am INDICATION: Signs/Symptoms:to evaluate for esophageal stent position. COMPARISON: Chest CT 06/10/2025. ACCESSION NUMBER(S): [id number] ORDERING CLINICIAN: TOUFIK MADHUN TECHNIQUE: Helical data acquisition of the chest was obtained without intravenous contrast. Images were reformatted in axial, coronal, and sagittal planes. FINDINGS: LUNGS AND AIRWAYS: The trachea and central airways are patent. No endobronchial lesion is seen, although there is small amount of nonobstructive mucus material noted within mid to distal trachea.There is mild diffuse bronchial wall thickening, which is a non-specific finding, but may be due to chronic bronchitis. Small bilateral pleural effusions have improved from prior CT scan 06/10/2025. There is mild biapical pleural-parenchymal scarring. Otherwise, no new focal consolidation or pneumothorax. Few small ground-glass nodular densities within right lower lobe (for example images 162 and 173, series 2), are felt to be reactive in nature. Otherwise, no suspicious pulmonary nodules or masses. MEDIASTINUM AND VICTOR M, LOWER NECK AND AXILLA: The patient is status post laryngectomy. The previously noted tracheostomy cannula has been removed. No evidence of thoracic lymphadenopathy by CT criteria. Few small to mildly prominent mediastinal lymph nodes are similar to prior examination. For example, there is similar 9 mm left paratracheal lymph node on axial image 89 Upper esophageal stent is now seen in place extending from the level of hypopharynx to mid esophagus (C5 through T5 vertebral level). The stent is patent. More distal esophagus is mildly patulous. HEART AND VESSELS: The thoracic aorta normal in course and caliber.Minimal calcified atherosclerosis of aortic arch. Main pulmonary artery and its branches are normal in caliber. Mild coronary artery calcifications are seen.Please note,the study is not optimized for evaluation of coronary arteries. The cardiac chambers are not enlarged. There is no pericardial effusion seen. UPPER ABDOMEN: Diffuse hepatic hypoattenuation, suggestive of steatosis. Peg tube seen in place; satisfactory positioning. Small amount of positive contrast material within included large bowel. Rest of the visualized subdiaphragmatic structures demonstrate no remarkable findings. CHEST WALL AND OSSEOUS STRUCTURES: Chest wall is within normal limits. No acute osseous pathology.There are no suspicious osseous lesions. Impression 1. Upper esophageal stent is now seen in place extending from the level of hypopharynx to mid esophagus (C5 through T5 vertebral level). Stent is widely patent. 2. Small bilateral pleural effusions have improved when compared to prior CT scan 06/10/2025. 3. No new focal consolidation or pneumothorax. 4. Few small right lower lobe ground-glass nodular densities, which are felt to be represent nonspecific bronchiolitis. 5. Diffuse hepatic steatosis. 6. Additional chronic changes as described above. Signed by: Lorenzo Urrutia 06/22/2025 1:21 PM Dictation workstation: [id number] Assessment & Plan Acute hypoxic respiratory failure 55 y.o. 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 She then presented to [facility] on 06/19 with acute on chronic hypoxic respiratory failure which improved after diuresis. Now weaned to baseline 2L O2 via trach mask. Breathing comfortably, esophageal stent in unchanged position. Recommendations: - No indication for thoracic surgery indication at this time in light of respiratory status back at baseline - Patient is scheduled for EGD with stent exchange on 07/[address] Thomas and appt scheduled for 06/24/25 - Rest of care per primary team, thoracic surgery will sign off, plage with questions [id number] Patient seen by this provider and discussed with attending surgeon Dr. Thomas. Reyna Rowell, ABBY-EMBALMER APPRENTICE Thoracic and Esophageal Surgery [id number] [1] atorvastatin, 20 mg, g-tube, Nightly carvedilol, 6.25 mg, g-tube, BID ertapenem, 1 g, intravenous, q24h folic acid, 1 mg, g-tube, Daily insulin lispro, 0-5 Units, subcutaneous, TID AC levothyroxine, 137 mcg, g-tube, Daily liothyronine, 5 mcg, g-tube, Daily magnesium sulfate, 4 g, intravenous, Once midodrine, 5 mg, oral, TID pantoprazole, 40 mg, intravenous, Daily perflutren lipid microspheres, 0.5-10 mL of dilution, intravenous, Once in imaging sennosides, 1 tablet, oral, Nightly sertraline, 50 mg, g-tube, Daily sulfur hexafluoride microsphr, 2 mL, intravenous, Once in imaging thiamine, 100 mg, g-tube, Daily [2] [3] PRN medications: acetaminophen, dextrose, dextrose, glucagon, glucagon, ipratropium-albuteroL, oxyCODONE, oxygen 06/23/25 [id number] Discharge Planning Living Arrangements Spouse/significant other;Children (and son) Support Systems Children;Spouse/significant other;Family members Assistance Needed yes Type of Residence Private residence Who is requesting discharge planning? Provider Expected Discharge Disposition SNF Does the patient need discharge transport arranged? Yes [facility] [employer] coordination needed? Yes Financial Resource Strain How hard is it for you to pay for the very basics like food, housing, medical care, and heating? Not very Housing Stability In the last 12 months, was there a time when you were not able to pay the mortgage or rent on time? N At any time in the past 12 months, were you homeless or living in a mcc (including now)? N Transportation Needs In the past 12 months, has lack of transportation kept you from medical appointments or from getting medications? no In the past 12 months, has lack of transportation kept you from meetings, work, or from getting things needed for daily living? No Patient Choice Provider Choice list and CMS website (https://medicare.gov/care-compare#se arch) for post-acute Quality and Resource Measure Data were provided and reviewed with: Patient Intensity of Service Intensity of Service 0-30 min PCP: Stevenson Adair NP DATE OF LAST VISIT: a few months ago PHARMACY: [facility] RECENT FALLS: yes per pt had 2 recent falls EQUIPMENT USED IN HOME: rollator HOME O2/CPAP/NEBS: 2L NC O2 DME SUPPLIER: does not remember name of company TRANSPORT HOME: per pt if she were to DC home her sign other would be able to transport her CURRENT HC: N/A Address, phone and emergency contact information verified. Per pt she was at [facility] but does not want to return there. Pending PT/OT to evaluate pt-pt states if SNF recc she would be open to going to [facility]. Pt states her PEG tube is new so she does not have any tube feeds supplies at home so pt states if she decides to go home she would need tube feed supplies and would not have a preference for HC AOC. Pt agreeable with receiving chem dep resources for ETOH use-will make CHW aware. All questions and concerns answered. Will continue to follow. 06/23/25 1010 Rapid Rounds Attendance Provider;Care Transitions;Nurse Expected Discharge Disposition (TBD) Today we still await: Clinical stability Review at Escalation Rounds No escalation needed Vj Myers is a 55 y.o. female admitted on 06/22/2025 and on day 0 from MICU presenting with aspiration PNA/pneumonitis . Subjective Patient is unable to speak due to esophageal stent in place, but can communicate via writing. She endorses pain around PEG tube site. She denies any SOB, headaches, dizziness, chest pain, palpitations, overall asymptomatic. She is hungry and would like jello, however is not able to receive anything by mouth. Objective Last Recorded Vitals Temp: [35.8 C (96.4 F)-37 C (98.6 F)] 35.8 C (96.4 F) Heart Rate: [66-93] 66 Resp: [7-21] 12 BP: (80-137)/(50-97) 82/64 FiO2 (%): [35 %-40 %] 35 % SpO2 Readings from Last 1 Encounters: 06/22/25 93% Intake/Output last 3 Shifts: I/O this shift: In: 110.4 [I.V.:50.4; NG/GT:60] Out: 850 [Urine:850] I/O last 3 completed shifts: In: 140 (1.6 mL/kg) [NG/GT:90; IV Piggyback:50] Out: - (0 mL/kg) Weight: 88.6 kg Relevant Results CMP Results from last 7 days Lab Units 06/22/25 0423 06/21/25 1645 06/19/25 1932 06/17/25 0627 SODIUM mmol/L 135* 135* 135* 140 POTASSIUM mmol/L 4.4 4.2 4.5 3.3* CO2 mmol/L 34* 34* 30 28 ANION GAP mmol/L 7* 8* 9* 11 BUN mg/dL 8 10 11 5* CREATININE mg/dL 0.56 0.55 0.56 0.60 GLUCOSE mg/dL 90 112* 104* 93 EGFR mL/min/1.73m*2 >90 >90 >90 >90 CALCIUM mg/dL 8.0* 8.2* 8.4* 8.0* MAGNESIUM mg/dL 1.56* 1.44* -- 1.83 PHOSPHORUS mg/dL 3.6 -- -- -- CBC Results from last 72 hours Lab Units 06/22/2543406/21/25164406/19/251931 WBC AUTO x10*3/uL 6.7 8.0 15.1* HEMOGLOBIN g/dL 8.2* 8.9* 9.4* HEMATOCRIT % 24.8* 28.2* 29.1* MCV fL 98 102* 100 PLATELETS AUTO x10*3/uL 216 212 260 NEUTROS PCT AUTO % 68.6 -- 80.3 LYMPHS PCT AUTO % 16.7 -- 9.5 MONOS PCT AUTO % 9.1 -- 6.1 EOS PCT AUTO % 3.9 -- 2.3 Liver Panel Results from last 7 days Lab Units 06/22/2542206/21/25164406/19/251931 ALT U/L 10 11 14 AST U/L 38 42* 74* ALK PHOS U/L 212* 243* 308* Results from last 7 days Lab Units 06/22/25434 INR 1.0 Urinalysis Lab Results Component Value Date LEUKOCYTESU 25 Irma/uL (A) 06/20/2025 NITRITEU NEGATIVE 06/20/2025 WBCU 1-5 06/20/2025 RBCU 6-10 (A) 06/20/2025 BLOODU NEGATIVE 06/20/2025 PROTUR 10 (TRACE) 06/20/2025 GLUCOSEU Normal 06/20/2025 KETONESU NEGATIVE 06/20/2025 HYALCASTU 1+ (A) 04/19/2024 Other Labs Results from last 7 days Lab Units 06/22/2543406/21/25164406/19/251931 PROCALCITONIN ng/mL 1.10* -- -- WBC AUTO x10*3/uL 6.7 8.0 15.1* HEMOGLOBIN g/dL 8.2* 8.9* 9.4* Results from last 72 hours Lab Units 06/19/25 2037 POCT PH, ARTERIAL pH 7.44* POCT PCO2, ARTERIAL mm Hg 43* POCT PO2, ARTERIAL mm Hg 63* POCT SO2, ARTERIAL % 94 Results from last 72 hours Lab Units 06/22/25 0435 POCT PH, VENOUS pH 7.38 POCT PCO2, VENOUS mm Hg 60* POCT PO2, VENOUS mm Hg 32* Microbiology and Culture Susceptibility data from last 120 days. Collected Organism Amoxicillin/Clavulanate Ampicillin Ampicillin/Sulbactam Aztreonam Cefazolin Cefazolin (uncomplicated UTIs only) Cefepime Ceftazidime Ceftriaxone Cefuroxime (oral) Ciprofloxacin Ertapenem Gentamicin Levofloxacin Meropenem Nitrofurantoin Piperacillin/Tazobactam 06/20/25 010 Klebsiella pneumoniae/variicola I R R R R R R R R R I S S I S R R Escherichia coli S S S S S S S S Collected Organism Trimethoprim/Sulfamethoxazole 06/20/25 0101 Klebsiella pneumoniae/variicola R Escherichia coli S Lab Results Component Value Date URINECULTURE 20,000 - 80,000 CFU/mL Escherichia coli (A) 06/20/2025 URINECULTURE (A) 06/20/2025 20,000 - 80,000 CFU/mL Klebsiella pneumoniae/variicola BLOODCULT No growth at 4 days - FINAL REPORT 06/05/2025 Physical Exam Physical Exam Constitutional: Comments: Patient unable to speak due to esophageal stent placement, can communicate via writing Neck: Comments: Stoma at site of tracheostomy without trach in place Cardiovascular: Rate and Rhythm: Normal rate and regular rhythm. Pulses: Normal pulses. Heart sounds: Normal heart sounds. Pulmonary: Effort: Pulmonary effort is normal. Breath sounds: Normal breath sounds. Comments: On room air, no accessory muscles usage Abdominal: Palpations: Abdomen is soft. Tenderness: There is abdominal tenderness. Comments: PEG tube in place, ecchymotic bruises along lower abdomen. Tenderness on light palpation only near PEG tube site Genitourinary: Comments: Toro cather in place. Urine is yellow Musculoskeletal: General: Normal range of motion. Skin: General: Skin is warm. Comments: Bruising noted on lower abdomen Neurological: General: No focal deficit present. Mental Status: She is alert and oriented to person, place, and time. Psychiatric: Mood and Affect: Mood normal. Imaging -pending results of TTE Inpatient Medications Scheduled Medications[1] Continuous Medications[2] PRN Medications[3] Assessment/Plan 55 y.o. 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 Monitored via tele, weaned off to 44% FiO2 via trach collar, discharged stable to SNF. She then presented from SNF to [facility] on 06/19 with acute on chronic hypoxic respiratory failure which improved after diuresis. Required O2 from trach (initally 10L trach mask to 5L Trach), now weaned off O2 and on RA. Founded with Klebsiella/E.coli ESBL UTI on Ceftriaxone (06/21-*), transferred to our floor stable. Updates 06/23: -Stopped Abx txt per ID consult recs WBC/Ucx < 100K CFUs of 2 organisms, does not believe its a UTI -Tfs at 15 mL/hr (goal 35 mL per nutrition last recs), will increase as tolerated -TTE and BNP, results pending #Acute on chronic hypoxic respiratory failure :::SCC of the supraglottic region (2007), s/p chemo/rads and laryngectomy with flap/TEF creation for phonation and insertion of speech prosthesis (04/30/2009); recent esophageal stent placement (06/12/2025) with Dr. Thomas, and PEG tube placement tracheostomy tube removal (06/13 to avoid erosion with esophageal stent present. ::Discharged to SNF post tracheal decannulation, on 2L O2 NC as baseline ::Presented to ED with hypoxia with increased L oxygen requirement, weaned off now on RA ::Per Thoracic Surgery, pt keeping esophageal stent for at least 6 weeks, no other interventions at this time (definitive repair later) ::Unable to speak with esophageal stent in place -On room air, supportive O2 PRN via trach mask -PRN DuoNebs and O2 therapy -BNP pending #Ecoli/Klebsiella ESBL UTI ::Grew ecoli and klebsiella pneumoniae at OSH ::Urine Cx positive for 20-80K Ecoli and Klebsiella pneumonaie/variicola CFU/mL; switched from CFT to Ertapenem due to susceptibility results. Never given Ertapenem however as ID consult rec stopping because WBC/Ucx < 100K CFU, don't believe its a UTI ::Procalcitonin 1.10 -Discontinued Abx per ID recs as WBC/Ucx < 100K CFUs of 2 organisms, don't believe it's a UTI -Staph aureus/MRSA colonization results pending #Tube Feeds #Hypoglycemia ::Per nutrition's last note, TFs TwoCal HTN via goal rate 35 mL/hr ::No TFs last night post-transfer to floor due to no pumps available, BG decreased 66 -On TF 15 mL/hr to avoid aspiration, will increase as tolerated to meet goal -Hypoglycemia protocol #Blood Pressure Control ::Soft BPs (80/60s) throughout ICU stay and post-transfer 06/22 to medicine floor, but denies headache, dizziness, chest pain, confusion, SOB ::BP mildly hypertensive this AM (144//) ::BP Regimen in-patient: Midodrine 5mg, Carvedilol tablet 6.25mg -If BP > 140s, hold Midodrine -If BP < 80/60s, reduce Carvedilol dose to 3.125 mg #PEG site pain ::Pain around PEG tube on slight palpation, free of erythema, drainage, infection -Pain control with Acetaminophen 650 mg gtub q4h PRN and Oxycodone 5 mg gtub q6h PRN #Bilateral pleural effusions ::CT Chest 06/22 with small bilateral pleural effusions have improved when compared to prior CT scan 06/10/2025 -TTE performed, results pending -BNP pending #HLD -Continue Atorvastatin tablet 20 mg nightly via PEG tube #Hypothyroidism -Continue Levothyroxine tablet 137 mcg and Liiothyronine tablet 5mcg daily via PEG tube #Constipation -Senna if needed #Mood Disorder -Continue Sertraline tablet 50mg daily via PEG tube #Substance Use Disorder ::reportedly drinks >1 pint of liquor daily, was on CIWA protocol, no need to continue -Continue thiamine tablet 100 mg daily and Folic acid via PEG tube ##FEN Fluids: Replete PRN Electrolytes: Replete PRN Nutrition: Enteral feeding with NPO TwoCal HN; PEG (percutaneous endoscopic gastric); 35; 100; Water; Tap water; Every 6 hours ##Prophylaxis Antimicrobials: Discontinued Abx DVT PPX: Bowel Regimen: Pantoprazole injection 40 mg ##Hardware LDA: pIV, toro urinary catheter, gastrostomy/enterostomy 20 Fr YOLANDA Oxygen: On room air ##Social Disposition: -F/U: outpatient PFTs, PCP in 6 wks (repeat thyroid labs), Dr. Thomas (for stent exchange), EGD scheduled , ENT Code Status: Full Code HPOA: Extended Emergency Contact Information Primary Emergency Contact: KARIN MURDOCK Address: [address] [place], [place] [id number] [facility] Mobile Relation: Sister Preferred language: Surinamese Couples Therapist needed? No Secondary Emergency Contact: RYNE SALCEDO Mobile Relation: Significant Other Preferred language: Surinamese Couples Therapist needed? No Jeimy Batista MD Internal Medicine PGY-1 [1] atorvastatin, 20 mg, g-tube, Nightly carvedilol, 6.25 mg, g-tube, BID cefTRIAXone, 1 g, intravenous, q24h folic acid, 1 mg, g-tube, Daily insulin lispro, 0-5 Units, subcutaneous, TID AC levothyroxine, 137 mcg, g-tube, Daily liothyronine, 5 mcg, g-tube, Daily midodrine, 5 mg, oral, TID [START ON 06/23/2025] oxygen, 1 Dose, inhalation, q24h pantoprazole, 40 mg, intravenous, Daily perflutren lipid microspheres, 0.5-10 mL of dilution, intravenous, Once in imaging perflutren protein A microsphere, 0.5 mL, intravenous, Once in imaging sennosides, 1 tablet, oral, Nightly sertraline, 50 mg, g-tube, Daily sulfur hexafluoride microsphr, 2 mL, intravenous, Once in imaging thiamine, 100 mg, g-tube, Daily [2] [3] PRN medications: acetaminophen, ipratropium-albuteroL, oxyCODONE, oxygen Cosigned by Daniela Covarrubias MD MPH at 06/23/2025 2:17 PM EDT Associated attestation - Daniela Covarrubias MD MPH - 06/23/2025 2:17 PM EDT I saw and evaluated the patient. I personally obtained the campos and critical portions of the history and physical exam or was physically present for campos and critical portions performed by the resident/fellow. I reviewed the resident/fellow's documentation and discussed the patient with the resident/fellow. I agree with the resident/fellow's medical decision making as documented in the note. Seen on rounds, assumed care of patient today. She was transferred out of MICU last evening, briefly chart reviewed and history noted. She has history of squamous cell cancer of the supraglottic region s/p chemo and radiation and laryngectomy with flap and remote TEF for phonation, significant alcohol use disorder who was initially admitted about 2 weeks ago for acute hypoxic respiratory failure, concern for aspiration pneumonia, seen by thoracic surgery, underwent esophageal stent and PEG tube placement by Dr. Thomas, also seen by ENT at that time, trach was decannulated, had a mesh placed and was advised to follow-up outpatient. She returned from SNF with concerns for worsening shortness of breath, acute on chronic hypoxic respiratory failure and was diuresed, transferred to MICU given her recent esophageal stent placement and trach. While in the MICU she was continued to wean off O2, continued on antibiotics given concern for UTI and transferred to the floor after she was felt to be stable. This morning patient reports to doing fairly well, denied any shortness of breath or cough, is on 35% FiO2 through trach collar, not humidified. PEG tube in place, receiving tube feeds. Lungs with fair air entry anteriorly, no significant rhonchi noted. Heart regular rate and rhythm, no murmurs appreciated. Abdomen is soft, scattered bruising. Noted to have some scattered erythematous rash on her right lateral lower extremity. No edema. External catheter in place. Vitals noted, afebrile, blood pressure fairly well-controlled, was intermittently hypotensive down to 80s over 50s yesterday, no tachycardia, saturating 95 to 100% on trach collar. Labs pending for today. Urine culture results noted, E. coli and MDRO Klebsiella, 20-80 K. S/p acute on chronic hypoxic respiratory failure, currently down to her previous O2 requirement of 35% FiO2 through trach collar. Patient was diuresed, BNP was noted to be elevated to 317 on 731, no prior echoes noted in the system. Also unclear reason for her Lasix. Follow echocardiogram results, hold off on Lasix at this time as she has been n.p.o. overnight and did not start any tube feeds. CT chest from 06/22/2025 reviewed by me independently, noted to have some scattered opacities in the apex, also with small effusion/atelectasis, right greater than left. Improved compared to prior CT. Esophageal stent noted. Taper off O2 as tolerated. Patient with underlying history of COPD, outpatient notes mention that she was previously on O2, will need to clarify with patient. No recent PFTs or pulm follow-up noted. Hypertension, intermittently soft blood pressures, started on midodrine. On Lasix 20 mg together with carvedilol 6.25 mg twice daily from before, previously she was noted being on amlodipine 5 mg. Will hold off on midodrine if blood pressures elevated to more than 130 systolic, also if concern for hypotension will decrease or stop carvedilol as tolerated. Hypothyroidism, continue levothyroxine, seen by endocrinology on her previous admission. UTI, E. coli/MDRO Klebsiella. Patient does have prior history of UTIs back in December 2024 with E. Coli. Appreciate infectious disease input, felt to be asymptomatic bacteriuria as she has 20-80K. Will stop ceftriaxone and follow. Nutrition, continue tube feeds, advance as tolerated. Is currently s/p esophageal stent placement, plan to follow-up with thoracic surgery outpatient and needs stent exchanged by Dr. Thomas. PT/OT. ICU to [facility] Transfer Summary I: ICU Admission Reason & Brief ICU Course: 55 y.o. 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 She then presented to [facility] on 06/19 with acute on chronic hypoxic respiratory failure which improved after diuresis. Now weaned off O2 on RA. On Midodrine 5mg TID for soft BP's. Treating Klebsiella/E.coli UTI with CTX (06/21-*) ready to transfer to the floor, no need for tele. C: Code Status/DPOA Info/Goals of Care/ACP Note Full Code DPOA/Contact Number: (sister) [phone] U: Unprescribing & Pertinent High-Risk Medications Changes to home meds: -home disulfiram held (AUD) Anticoagulation: none/SCDs Antibiotics: [] Ceftriaxone 1g P: Pending Tests at the Time of Transfer CT Chest- patent esophageal stent, no changes in b/l pleural effusions, no focal consolidation TTE pending A: Active consultants, including Rehab: [] Subspecialty Consultants: n/a [] PT [] OT [] ENFORCEMENT MANAGER [] Wound Care U: Uncertainty Measure/Diagnostic Pause: Working diagnosis at the time of transfer acute hypoxic respiratory failure. Diagnosis Degree of Certainty: 1. High degree of certainty about the clinical diagnosis. S: Summary of Major Problems and To-Dos: RENAL/GENITOURINARY: Dx: Ecoli/Klebsiella UTI Grew ecoli and klebsiella pneumoniae at OSH Management: Continue CTX 1g PULMONARY: Dx: acute on chronic hypoxic respiratory failure (on 2L O2 bl), c/f aspiration vs viral pna Dx: SCC of the supraglottic region (2007, s/p chemo/rads and laryngectomy with flap/TEF creation for phonation Dx: former smoker Dx: recent esophageal stent placement and tracheostomy tube decannulation Management: Thoracic surgery recommends no intervention this time CT chest appears to be better at this time Infectious workup negative C/w supportive O2 prn Duonebs Arrange for outpatient PFTs To-do list prior to transfer: []Started tube feeds as per last nutrition recs []Arrange for neurology fu outpatient for multiple sclerosis findings MRI 2021 []Arrange for outpatient PFTs [] Patient came from SNF but would like to go home instead E: Exam, including Lines/Drains/Airways & Data Review: Physical Exam Constitutional: General: She is not in acute distress. HENT: Head: Normocephalic and atraumatic. Eyes: Extraocular Movements: Extraocular movements intact. Pupils: Pupils are equal, round, and reactive to light. Cardiovascular: Rate and Rhythm: Normal rate and regular rhythm. Pulmonary: Effort: Pulmonary effort is normal. Breath sounds: Normal breath sounds. Abdominal: General: Abdomen is flat. There is no distension. Palpations: Abdomen is soft. Tenderness: There is no abdominal tenderness. Comments: PEG tube without surrounding drainage or erythema R flank bruising (patient states it is from heparin injection) Musculoskeletal: Right lower leg: No edema. Left lower leg: No edema. Skin: General: Skin is warm and dry. Capillary Refill: Capillary refill takes less than 2 seconds. Neurological: General: No focal deficit present. Mental Status: She is alert and oriented to person, place, and time. Psychiatric: Mood and Affect: Mood normal. Behavior: Behavior normal. Difficult airway? No Lines/drains assessed for removal? No Within 30 minutes of the patient physically leaving the floor, a Floor Readiness Note needs to be placed with updated vitals. Cosigned by Juan R Mendez MD at 06/26/2025 12:46 AM EDT Associated attestation - Juan R Mednez MD - 06/26/2025 12:46 AM EDT I saw and evaluated the patient. I personally obtained the campos and critical portions of the history and physical exam or was physically present for campos and critical portions performed by the resident/fellow. I reviewed the resident/fellow's documentation and discussed the patient with the resident/fellow. I agree with the resident/fellow's medical decision making as documented in the note. 55 y.o. in MICU for acute hypoxic resp failure. SCC of the supraglottic region (2007, s/p chemo/rads and laryngectomy with flap/TEF creation for phonation; current stoma from prior tracheostomy site), chronic hypoxic resp failure (2L/min), alcohol use disorder (reportedly drinks >1 pint of liquor daily - last drink over 2 weeks ago). Presented to [facility]. S/P PEG + esophageal stent placement 06/12/2025. Trach de-cannulated 06/13. Presented to [facility] from her SNF with hypoxic RF. #Acute on chronic Hypoxic Respiratory Failure; Back to baseline O2 #TEF s/p Stent with thoracic surgery at [facility] #UTI Plan: - Titrate Fio2 to Spo2 >90% - Nebulizers - CT reviewed. Stent in good position and no acute concerns for PNA - Throacic recs appreciated - Continue CTX for UTI and follow up cx. Ok to transfer to [facility] I spent 50 minutes in the professional and overall care of this patient. Juan R Mendez MD Attending Attestation - Resident H&P In Progress Brief Attending Summary: 55 y.o. in MICU for acute hypoxic resp failure. SCC of the supraglottic region (2007, s/p chemo/rads and laryngectomy with flap/TEF creation for phonation; current stoma from prior tracheostomy site), chronic hypoxic resp failure (2L/min), alcohol use disorder (reportedly drinks >1 pint of liquor daily - last drink over 2 weeks ago). Presented to [facility]. S/P PEG + esophageal stent placement 06/12/2025. Trach de-cannulated 06/13. Presented to [facility] from her SNF with hypoxic RF. SpO2 100% - trach mask 0.40 87/min MAP 103 ABG - 7.44/43 WBC 8.0 BNP 317 Urine Cx 06/20 - E. Coli and Klebsiella pneumoniae - Acute on chronic hypoxic RF: recent emesis and new cough - but dry and with a clear C-XR; no leukocytosis, no fever, cough is not productive --> low concern for PNA at this time; more diuresis if needed; getting pro calcitonin checked, resp Cx; diuresis based on PoCUS eval - TEF: has esophageal stent in place - UTI: Rx with ceftriaxone, follow susceptibilities Was transferred here for thoracic surgery eval. At this time, no indication for such. Will re-assesses in the AM. Keep NPO + no feeding via PEG tube for now. I have reviewed and evaluated the most recent data and results, personally examined the patient, and formulated the plan of care as presented above. This patient was critically ill and required continued critical care treatment. Teaching and any separately billable procedures are not included in the time calculation. Billing Provider Critical Care Time: 35 minutes Ellis Guerrero MD Staff Physician - Interventional Pulmonology 4:27 AM 06/22/25 documented in this encounter [facility] Work Phone: 06-26-2025 Hospital Discharge instructions Elaine Carlson APRN-EMBALMER APPRENTICE - 06/26/2025 8:41 AM EDT Dear Vj Myers and family, You were admitted because you had difficulty breathing with poor oxygen levels. You required some oxygen over the course of hospitalization, and your breathing and oxygen status recovered without the use of an oxygen device at this current time. You have been receiving nutrition via your gtube instead of by mouth to avoid the risk of aspirating which is where food is inhaled into your airways and obstructs breathing. You will continue receiving feeds at night and we encourage for the head of the bed to be elevated while feeding. This regimen and position allows for the safest delivery of food and significantly reduces the risk of aspirating. Your blood pressure medication Carvedilol is being discontinued for now and may be resumed if any concerning changes are seen with your BP at your facility. You will be transported to [facility]. Follow up appointments: Primary care: It is recommended that you follow up with your primary care provider once discharged. Please make sure to schedule this appointment through [facility] at a location and time that works for you. We recommend being seen within 2 weeks of discharge from the hospital. If you prefer to speak with someone to help you schedule this appointment, you may call Central Scheduling at [phone]. ENT: 06/27/25 Thoracic surgery/OR: 07/16/25 Thoracic surgery post-op: 07/29/25 Please see the first few pages of your discharge instructions for complete follow up visit information, including dates, times, locations and provider information. Please return to the hospital if you have worsening shortness of breath, persistent brain on breathing, chest pain, severe abdominal pain, and fevers or chills. It was a pleasure taking care of you. The following attachments cannot be sent through Care Everywhere.Acute respiratory distress syndrome (Surinamese)documented in this encounter [facility] Work Phone: 06-26-2025 Hospital Note Formatting of t his note might be different from the original. 55 y.o. 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 She initially presented to OSH ([facility]) with hypoxia (satting 80% on 2L NC), placed on NRB by stoma, and weaned down from 10L to 5L trach mask satting 100%, and received Lasix 40 mg for yonis diuresis. She was founded with E coli/klebsiella pneumonaie, but asymptomatic and Abx not started. She was then transferred to [facility] for acute on chronic hypoxic respiratory failure. She was on 11L O2, and weaned off O2 on RA. On this floor, she was started on Ceftriaxone for empiric treatment of her E coli/klebsiella pneumoniae pending susceptibles. She was transferred to our [facility] 06/22 stable on RA. Her Carvedilol and Midodrine were held initially and intermittently in the setting of soft blood pressures (1002/70s). A TTE was performed due to initial concerns of small bilateral pleural effusions founded on CT Chest that showed normal LVEF (60-65%), RV systolic function, and normal heart anatomy, and BNP 322. No concerns for volume overload at this time. ID examined her and concluded that her WBC/Urine Cx < 100K CFU was not a UTI, and her Ceftriaxone was discontinued. Her tube feeds through her PEG tube were advanced as tolerated to 35 mL/hr. Nutrition assessed her and a decision to continue her on nocturnal 12 hours tube feeds at 70 mL/hr was made to reduce risk of aspiration in anticipation of discharge to SNF. Her PEG tube remained free of erythema, drainage, or infection throughout. She was founded with some mild wounds on pressure points of her body and seen by Wound nurse for treatment. Patient had good functional status and stable on RA since transferred to our medicine floor. She will be discharged to [facility] SNF with her Carvedilol held as BP has been optimal. She has referrals in place for PCP in 6 wks (repeat thyroid labs, outpatient PFTs), Dr. Huma Thomas (for stent exchange 07/16 and post-op visit)and ENT to establish care with Dr. Isidra Rutherford. [facility] Work Phone: 06-26-2025 Plan of care note The patient's goals for the shift include The clinical goals for the shift include pt will remain hds by 700 on 06/26/25 Over the shift, the patient did not make progress toward the following goals. Barriers to progression include . Recommendations to address these barriers include . [facility] 06-25-2025 Consult note Associated Order (s): WOUND OSTOMY NURSING CONSULT Images from the original note were not included. Wound Care Consult Visit Date: 06/25/2025 Patient Name: Vj Myers Reason for Consult: Multiple sites Assessment: 06/25/25 1500 Wound 06/23/25 Other (Comment) Ankle Right;Lateral Date First Assessed: 06/23/25 Present on Original Admission: Yes Primary Wound Type: Other (Comment) Location: Ankle Wound Location Orientation: Right;Lateral Present on Admission to Healthcare Facility Y Site Assessment Clean;Red;Excoriated Shape linear Wound Length (cm) 3 cm Wound Width (cm) 0.4 cm Wound Surface Area (cm^2) 0.94 cm^2 Wound Depth (cm) 0 cm Wound Volume (cm^3) 0 cm^3 State of Healing Epithelialized Treatments Site care Drainage Description None Drainage Amount None Dressing Open to air Wound 06/24/25 Other (Comment) Abdomen Left;Medial;Upper Date First Assessed/Time First Assessed: 06/24/25 0854 Primary Wound Type: Other (Comment) Location: Abdomen Wound Location Orientation: Left;Medial;Upper Site Assessment Denuded;[place] Wound Depth (cm) 0.1 cm Treatments Cleansed;Site care Drainage Description Serous Drainage Amount Small Dressing Foam Dressing Changed New Dressing Status Clean;Dry Wound 06/24/25 Other (Comment) Buttock Date First Assessed/Time First Assessed: 06/24/25 0858 Primary Wound Type: Other (Comment) Location: Buttock Site Assessment Denuded;Red Wound Length (cm) 4 cm Wound Width (cm) 2 cm Wound Surface Area (cm^2) 6.28 cm^2 Wound Depth (cm) 0.1 cm Wound Volume (cm^3) 0.419 cm^3 Treatments Cleansed;Site care Drainage Description None Drainage Amount None Dressing Moisture barrier Dressing Changed New Wound 06/24/25 Other (Comment) Elbow Posterior;Right Date First Assessed/Time First Assessed: 06/24/25 0859 Primary Wound Type: Other (Comment) Location: Elbow Wound Location Orientation: Posterior;Right State of Healing Closed wound edges (Healed pink scar tissue) Treatments Cleansed;Site care Drainage Description None Drainage Amount None Dressing Silicone border dressing Dressing Changed Changed Recommendations by Wound location: DAILY for R lateral lower leg. Keep clean and dry. Wash with warm wipes as needed and pat dry. Leave open to air. Recommendations by Wound location: DAILY for L abdomen PEG site. Cover wounds with Vashe wound cleanser ([employer] order #[id number]) soaked 4 x 4 cm sterile gauze for 1-5 minutes, then gently pat dry. Seal skin with Cavilon no sting barrier film allow film 30-60 seconds to dry then cover with Mepilex Lite cut like drain sponge for padding and protection ([employer] order #[id number]). Recommendations by Wound location: TWICE DAILY and as needed for excoriation to JEFFREY buttocks. Keep clean and dry. Wash with warm wipes as needed and pat dry. Apply Criticaid barrier ointment with each clean up and as needed. Apply a sacral Mepilex border foam to sacrum for protection. Change as needed and as soiled. While in bed patient should only be on one EHOB air mattress overlay, a fitted sheet, and one EHOB repositioning sheet with appropriate white chux. Please do not use brief while patient is resting in bed. Recommendations by Wound location: DAILY for R elbow. Keep clean and dry. Wash with warm wipes as needed and pat dry. Cover with Mepilex border dressing for padding and protection. Wound Plan: Primary provider please review the wound care consult note and pending wound care order. If you agree with orders please file in EMR. While inpatient, Secure chat with questions or reconsult wound care if condition worsens or changes. For urgent communications please message the group through Iot[employer] messaging at: [facility], Thank you. Sania Gonzales RN, CWON 06/25/2025 4:20 PM [facility] 06-25-2025 Consult note Associated Order (s): WOUND OSTOMY NURSING CONSULT Images from the original note were not included. Wound Care Consult Visit Date: 06/25/2025 Patient Name: Vj Myers Reason for Consult: Multiple sites Assessment: 06/25/25 1500 Wound 06/23/25 Other (Comment) Ankle Right;Lateral Date First Assessed: 06/23/25 Present on Original Admission: Yes Primary Wound Type: Other (Comment) Location: Ankle Wound Location Orientation: Right;Lateral Present on Admission to Healthcare Facility Y Site Assessment Clean;Red;Excoriated Shape linear Wound Length (cm) 3 cm Wound Width (cm) 0.4 cm Wound Surface Area (cm^2) 0.94 cm^2 Wound Depth (cm) 0 cm Wound Volume (cm^3) 0 cm^3 State of Healing Epithelialized Treatments Site care Drainage Description None Drainage Amount None Dressing Open to air Wound 06/24/25 Other (Comment) Abdomen Left;Medial;Upper Date First Assessed/Time First Assessed: 06/24/25 0854 Primary Wound Type: Other (Comment) Location: Abdomen Wound Location Orientation: Left;Medial;Upper Site Assessment Denuded;[place] Wound Depth (cm) 0.1 cm Treatments Cleansed;Site care Drainage Description Serous Drainage Amount Small Dressing Foam Dressing Changed New Dressing Status Clean;Dry Wound 06/24/25 Other (Comment) Buttock Date First Assessed/Time First Assessed: 06/24/25 0858 Primary Wound Type: Other (Comment) Location: Buttock Site Assessment Denuded;Red Wound Length (cm) 4 cm Wound Width (cm) 2 cm Wound Surface Area (cm^2) 6.28 cm^2 Wound Depth (cm) 0.1 cm Wound Volume (cm^3) 0.419 cm^3 Treatments Cleansed;Site care Drainage Description None Drainage Amount None Dressing Moisture barrier Dressing Changed New Wound 06/24/25 Other (Comment) Elbow Posterior;Right Date First Assessed/Time First Assessed: 06/24/25 0859 Primary Wound Type: Other (Comment) Location: Elbow Wound Location Orientation: Posterior;Right State of Healing Closed wound edges (Healed pink scar tissue) Treatments Cleansed;Site care Drainage Description None Drainage Amount None Dressing Silicone border dressing Dressing Changed Changed Recommendations by Wound location: DAILY for R lateral lower leg. Keep clean and dry. Wash with warm wipes as needed and pat dry. Leave open to air. Recommendations by Wound location: DAILY for L abdomen PEG site. Cover wounds with Vashe wound cleanser ([employer] order #[id number]) soaked 4 x 4 cm sterile gauze for 1-5 minutes, then gently pat dry. Seal skin with Cavilon no sting barrier film allow film 30-60 seconds to dry then cover with Mepilex Lite cut like drain sponge for padding and protection ([employer] order #[id number]). Recommendations by Wound location: TWICE DAILY and as needed for excoriation to JEFFREY buttocks. Keep clean and dry. Wash with warm wipes as needed and pat dry. Apply Criticaid barrier ointment with each clean up and as needed. Apply a sacral Mepilex border foam to sacrum for protection. Change as needed and as soiled. While in bed patient should only be on one EHOB air mattress overlay, a fitted sheet, and one EHOB repositioning sheet with appropriate white chux. Please do not use brief while patient is resting in bed. Recommendations by Wound location: DAILY for R elbow. Keep clean and dry. Wash with warm wipes as needed and pat dry. Cover with Mepilex border dressing for padding and protection. Wound Plan: Primary provider please review the wound care consult note and pending wound care order. If you agree with orders please file in EMR. While inpatient, Secure chat with questions or reconsult wound care if condition worsens or changes. For urgent communications please message the group through Iot[employer] messaging at: [facility], Thank you. Sania Gonzales RN, CWON 06/25/2025 4:20 PM Associated Order(s): IP CONSULT TO NUTRITION SERVICES Nutrition Assessment Reason for Assessment: Admission nursing screening - Home tube feeding. Vj Myers is a 55 y.o. 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 06/20 with hypoxia (up to 10L from baseline of 2L) and transferred to [facility] on 06/22 for further care. Nutrition History: Food and Nutrient History: Per Transitional Care note, patient was residing at a SNF most recently. Patient communicates via White board. This Clinician met with patient who was unable to remember the name of her TF while at the SNF. Nor was there any mention of TF formula in patient's paper chart, only that she has a PEG and receives TF. The last nutrition note from previous [facility] hospitalization (06/12-06/17) indicates that patient was receiving Two [place] HN at 35 ml/hr. Patient denies N/V/C/D. She is NPO, but wrote on her white board I would like to eat. Vitamin/Herbal Supplement Use: Home meds include MVI, Folic Acid and Thiamine. Food Allergies: (None per Allergy list.) Anthropometrics: Height: 160 cm (5' 3) Weight: 91.5 kg (201 lb 11.2 oz) BMI (Calculated): 35.74 IBW/kg (Dietitian Calculated): 52.3 kg Percent of IBW: 62.1 % Weight History: Wt Readings from Last 15 Encounters: 06/23/25 91.5 kg (201 lb 11.2 oz) 06/19/25 92.5 kg (204 lb) 06/17/25 92.8 kg (204 lb 9.6 oz) 06/11/25 91.4 kg (201 lb 6.4 oz) 01/12/25 81.6 kg (180 lb) 01/07/25 90.2 kg (198 lb 13.7 oz) 06/27/24 72.6 kg (160 lb) 05/29/24 72.6 kg (160 lb) 04/19/24 85.3 kg (188 lb) 04/08/24 79.8 kg (176 lb) 04/05/24 79.4 kg (175 lb) 03/25/24 84.4 kg (186 lb 1.6 oz) 02/28/24 83.5 kg (184 lb) 02/06/24 82.1 kg (181 lb) 02/02/24 77.1 kg (170 lb) Weight Change %: Weight History / % Weight Change: 26% wt gain x 1 terence. Nutrition Focused Physical Exam Findings: Subcutaneous Fat Loss: Orbital Fat Pads: Mild-Moderate (slight dark circles and slight hollowing) Buccal Fat Pads: Mild-Moderate (flat cheeks, minimal bounce) Triceps: Well nourished (ample fat tissue) Ribs: Defer Muscle Wasting: Temporalis: Well nourished (well-defined muscle) Pectoralis (Clavicular Region): Mild-Moderate (some protrusion of clavicle) Deltoid/Trapezius: Mild-Moderate (slight protrusion of acromion process) Interosseous: Well nourished (muscle bulges) Trapezius/Infraspinatus/Supraspinatus (Scapular Region): Mild-Moderate (slight protrusion of scapula) Quadriceps: Defer Gastrocnemius: Defer Edema: Edema: (B/L UE +1 and B/L LE non-pitting) Physical Findings: Hair: Negative Eyes: Negative Nails: Negative Skin: Positive (R lateral ankle wound) Mouth Findings: Dysphagia Teeth Findings: Edentulous Nutrition Significant Labs: CBC Trend: Results from last 7 days Lab Units 06/22/25 0435 06/21/25 [id number]/19/25193106/17/25 0627 WBC AUTO x10*3/uL 6.7 8.0 15.1* 5.9 RBC AUTO x10*6/uL 2.54* 2.76* 2.92* 2.74* HEMOGLOBIN g/dL 8.2* 8.9* 9.4* 8.6* HEMATOCRIT % 24.8* 28.2* 29.1* 28.2* MCV fL 98 102* 100 103* PLATELETS AUTO x10*3/uL 216 212 260 143* , BMP Trend: Results from last 7 days Lab Units 06/22/25 0423 06/21/25 [id number]/19/25193106/17/25 0627 GLUCOSE mg/dL 90 112* 104* 93 CALCIUM mg/dL 8.0* 8.2* 8.4* 8.0* SODIUM mmol/L 135* 135* 135* 140 POTASSIUM mmol/L 4.4 4.2 4.5 3.3* CO2 mmol/L 34* 34* 30 28 CHLORIDE mmol/L 98 97* 101 104 BUN mg/dL 8 10 11 5* CREATININE mg/dL 0.56 0.55 0.56 0.60 , A1C:No results found for: HGBA1C, BG POCT trend: Results from last 7 days Lab Units 06/23/25 1010 06/23/25 0741 06/23/25 0449 06/23/25 0016 06/22/250 POCT GLUCOSE mg/dL 66* 76 71* 76 79 , Renal Lab Trend: Results from last 7 days Lab Units 06/22/25 0423 06/21/25 1645 06/19/25 1932 06/17/25 0627 POTASSIUM mmol/L 4.4 4.2 4.5 3.3* PHOSPHORUS mg/dL 3.6 -- -- -- SODIUM mmol/L 135* 135* 135* 140 MAGNESIUM mg/dL 1.56* 1.44* -- 1.83 EGFR mL/min/1.73m*2 >90 >90 >90 >90 BUN mg/dL 8 10 11 5* CREATININE mg/dL 0.56 0.55 0.56 0.60 , Vit D: Lab Results Component Value Date VITD25 13 (A) 10/14/2022 , Vit B12: Lab Results Component Value Date [id number] 1,069 (H) 06/13/2025 Nutrition Specific Medications: Scheduled medications atorvastatin, 20 mg, g-tube, Nightly carvedilol, 6.25 mg, g-tube, BID ertapenem, 1 g, intravenous, q24h folic acid, 1 mg, g-tube, Daily insulin lispro, 0-5 Units, subcutaneous, TID AC levothyroxine, 137 mcg, g-tube, Daily liothyronine, 5 mcg, g-tube, Daily magnesium sulfate, 4 g, intravenous, Once midodrine, 5 mg, oral, TID pantoprazole, 40 mg, intravenous, Daily perflutren lipid microspheres, 0.5-10 mL of dilution, intravenous, Once in imaging sennosides, 1 tablet, oral, Nightly sertraline, 50 mg, g-tube, Daily sulfur hexafluoride microsphr, 2 mL, intravenous, Once in imaging thiamine, 100 mg, g-tube, Daily Continuous medications PRN medications PRN medications: acetaminophen, dextrose, dextrose, glucagon, glucagon, ipratropium-albuteroL, oxyCODONE, oxygen I/O: ; Stool Appearance: Soft, Formed (06/23/25 1413) Dietary Orders (From admission, onward) Start Ordered 06/23/25 1233 Enteral feeding with NPO TwoCal HN; PEG (percutaneous endoscopic gastric); 15; 100; Water; Tap water; Every 6 hours Diet effective now Comments: 15ml Tube feed rate to start increase 10 ml/hr q6H to goal of 35 ml/hr Question Answer Comment Tube feeding formula: TwoCal HN Feeding route: PEG (percutaneous endoscopic gastric) Tube feeding continuous rate (mL/hr): 15 Tube feeding flush (mL): 100 Flush type: Water Water type: Tap water Flush frequency: Every 6 hours 06/23/25 1233 06/22/25 0445 May Participate in Room Service With Assistance ( ROOM SERVICE MAY PARTICIPATE WITH ASSISTANCE) Once Question: . Answer: Yes 06/22/25 0444 Estimated Needs: Total Energy Estimated Needs in 24 hours (kCal): (1087-6267) Method for Estimating Needs: 30-35 kcal/kg IBW Total Protein Estimated Needs in 24 Hours (g): 75 g Method for Estimating 24 Hour Protein Needs: 1.5 g/kg IBW Total Fluid Estimated Needs in 24 Hours (mL): 1800 mL Method for Estimating 24 Hour Fluid Needs: 35 ml/kg IBW Nutrition Diagnosis Malnutrition Diagnosis Patient has Malnutrition Diagnosis: Yes Malnutrition Diagnosis: Moderate malnutrition related to chronic disease or condition As Evidenced by: mild muscle loss and subcutaneous fat loss per physical exam Nutrition Diagnosis Patient has Nutrition Diagnosis: Yes Nutrition Diagnosis 1: 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 Nutrition Interventions/Recommendations Nutrition prescription for enteral nutrition Nutrition Recommendations: Increase TwoCal HN to 35 ml/hr. Water flushes per MD. (at goal, TF provides ~ 600ml of water/day) Continue Folic Acid and Thiamine. Order daily MVI Obtain a Vitamin D level. Goal: TwoCal HN @ 35 = 1680 kcals, 70gm protein with ~600mls free water/day Nutrition Interventions/Goals: Enteral Intake: Management of composition of enteral nutrition, Management of delivery rate of enteral nutrition Education Documentation No documentation found. Nutrition Monitoring and Evaluation Enteral and Parenteral Nutrition Intake Determination: Enteral nutrition intake - To meet > 75% estimated energy needs, Enteral nutrition intake - Tolerate TF at goal rate Goal Status: New goal(s) identified Time Spent (min): 45 minutes Associated Order(s): Inpatient consult to Infectious Diseases Inpatient consult to Infectious Diseases Consult performed by: Doug Rivera MD Consult ordered by: Juan R Mendez MD Primary MD: Stevenson Adair, [employer] Reason For Consult: c/f ESBL UTI History Of Present Illness Vj Myers is a 55 y.o. 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 06/20 with hypoxia (up to 10L from baseline of 2L) and transferred to [facility] on 06/22 for further care. Since transfer she was weaned to 2-4L trach collar prior to any antibiotic initiation. She had a UA on 07/01 that had no pyuria, 1-9 squams, LE, and 20-80K CFU E coli and ESBL Klebsiella pneumonia. She initially did not report urinary symptoms, but at [facility] she did report dysuria per report. She was started on ceftriaxone yesterday 06/22. Reviewed history with patient. She reports no former nor current fevers, chills, dysuria, suprapubic pain, hematuria, flank pain. Her urine is dark. 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 Surgical History She has a past surgical history that includes Other surgical history (10/26/2021); Other surgical history (10/26/2021); Other surgical history (10/26/2021); Other surgical history (10/26/2021); Other surgical history (11/09/2021); Hysterectomy; IR injection epidural steroid (N/A, 04/05/2024); Flexible bronchoscopy w/ stent placement (06/12/2025); and Gastrostomy tube placement (06/12/2025). Social History Occupational History Not on file Tobacco Use Smoking status: Former Types: Cigarettes Smokeless tobacco: Never Vaping Use Vaping status: Never Used Substance and Sexual Activity Alcohol use: Defer Alcohol/week: 20.0 - 42.0 standard drinks of alcohol Types: 20 - 42 Standard drinks or equivalent per week Comment: Son states patient drinks if she can get her hands on a pint, she will drink 3-4 pints at a time Drug use: Never Sexual activity: Not on file Travel History Travel since 05/23/25 No documented travel since 05/23/25 Family History Family History[1] Allergies Iodinated contrast media, Morphine, Adhesive, and Latex Immunization History Administered Date(s) Administered Flu vaccine (IIV4), preservative free *Check age/dose* 10/11/2021, 09/01/2022 Medications Home medications: Prescriptions Prior to Admission[2] Current medications: Scheduled medications Scheduled Medications[3] Continuous medications Continuous Medications[4] PRN medications PRN Medications[5] Review of Systems Objective Range of Vitals (last 24 hours) Heart Rate: [65-106] Temp: [35.8 C (96.4 F)] Resp: [7-19] BP: (82-149)/(57-103) Weight: [91.5 kg (201 lb 11.2 oz)] SpO2: [91 %-100 %] Daily Weight 06/23/25 : 91.5 kg (201 lb 11.2 oz) Body mass index is 35.73 kg/m . Physical Exam GEN: Awake, alert, NAD. Trached, uses board for complex communication HEENT: EOMI, anicteric, missing teeth, no thrush CV: RRR, no murmurs LUNGS: CTAB largely, decreased sounds at bases comparatively ABD: Soft, NT, ND, no rebound. No SP or CVA tenderness EXT: No LE edema. Relevant Results Labs Results from last 72 hours Lab Units 06/22/25 0435 06/21/25 1645 WBC AUTO x10*3/uL 6.7 8.0 HEMOGLOBIN g/dL 8.2* 8.9* HEMATOCRIT % 24.8* 28.2* PLATELETS AUTO x10*3/uL 216 212 NEUTROS PCT AUTO % 68.6 -- LYMPHS PCT AUTO % 16.7 -- MONOS PCT AUTO % 9.1 -- EOS PCT AUTO % 3.9 -- Results from last 72 hours Lab Units 06/22/25 0423 06/21/25 1645 SODIUM mmol/L 135* 135* POTASSIUM mmol/L 4.4 4.2 CHLORIDE mmol/L 98 97* CO2 mmol/L 34* 34* BUN mg/dL 8 10 CREATININE mg/dL 0.56 0.55 GLUCOSE mg/dL 90 112* CALCIUM mg/dL 8.0* 8.2* ANION GAP mmol/L 7* 8* EGFR mL/min/1.73m*2 >90 >90 PHOSPHORUS mg/dL 3.6 -- Results from last 72 hours Lab Units 06/22/25 0423 06/21/25 1645 ALK PHOS U/L 212* 243* BILIRUBIN TOTAL mg/dL 0.6 0.5 BILIRUBIN DIRECT mg/dL 0.2 -- PROTEIN TOTAL g/dL 4.5* 4.6* ALT U/L 10 11 AST U/L 38 42* ALBUMIN g/dL 2.0* 2.1* Estimated Creatinine Clearance: 121.9 mL/min (by C-G formula based on SCr of 0.56 mg/dL). No results found for: CRP, SEDRATE No results found for: HIV1X2, HIVCONF, IHEIVE1KA Hepatitis C AB Date Value Ref Range Status 06/07/2025 Nonreactive Nonreactive Final Comment: Results from patients taking biotin supplements or receiving high-dose biotin therapy should be interpreted with caution due to possible interference with this test. Providers may contact their local laboratory for further information. Microbiology Susceptibility data from last 90 days. Collected Specimen Info Organism Amoxicillin/Clavulanate Ampicillin Ampicillin/Sulbactam Aztreonam Cefazolin Cefazolin (uncomplicated UTIs only) Cefepime Ceftazidime Ceftriaxone Cefuroxime (oral) Ciprofloxacin 06/20/25 Urine from Clean Catch/Voided Klebsiella pneumoniae/variicola I R R R R R R R R R I Escherichia coli S S S S Collected Specimen Info Organism Ertapenem Gentamicin Levofloxacin Meropenem Nitrofurantoin Piperacillin/Tazobactam Trimethoprim/Sulfamethoxazole 06/20/25 Urine from Clean Catch/Voided Klebsiella pneumoniae/variicola S S I S R R R Escherichia coli S S S S S Imaging Reviewed, including images in [facility]. 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 06/20 with hypoxia (up to 10L from baseline of 2L) and transferred to [facility] on 06/22 for further care. ID consulted with Ucx with ESBL Klebsiella pneumoniae and wild-type E coli. I do not suspect UTI; on multiple rounds of questioning today, she denied any dysuria, suprapubic pain, or any UTI symptoms either today or in the past few weeks. She has had UTIs in the past, and she has not had similar symptoms recently. Her UA had <5 WBC (>95% NPV for UTI when no pyuria detected) and her Ucx had two bacteria that were only 20-80K CFU, which could reflect asymptomatic bacteriuria. From a respiratory perspective, her CT showed improved bilateral effusions and atelectasis without debbie consolidaiton; may have been aspiration pneumonitis without pneumonia, for which 2 days of CTX would be likely sufficient anyways. Plan -Can stop antibiotics for reasons detailed above ID Team C will sign off, but please feel free to message me through with questions or reconsult ID thereafter. Doug Rivera MD [1] Family History Problem Relation Name Age of Onset Lung cancer Mother Heart failure Father Colon cancer Sister Diabetes Brother Heart failure Other Grandmother [2] Medications Prior to Admission Medication Sig Dispense Refill Last Dose/Taking acetaminophen (Tylenol) 325 mg tablet Take 2 tablets (650 mg) by mouth every 4 hours if needed for moderate pain (4 - 6) or mild pain (1 - 3). (Patient taking differently: Take 2 tablets (650 mg) by g-tube every 4 hours if needed for moderate pain (4 - 6) or mild pain (1 - 3).) 30 tablet 0 atorvastatin (Lipitor) 20 mg tablet Take 1 tablet (20 mg) by g-tube once daily at bedtime. carvedilol (Coreg) 6.25 mg tablet Take 1 tablet (6.25 mg) by mouth 2 times a day. (Patient taking differently: Take 1 tablet (6.25 mg) by g-tube 2 times a day.) 30 tablet 0 docusate sodium (Colace) 100 mg capsule Take 1 tablet (100 mg) by mouth once daily. Give via G-tube docusate sodium (Colace) 50 mg/5 mL oral liquid Take 10 mL (100 mg) by g-tube 2 times a day. (Patient not taking: Reported on 06/20/2025) folic acid (Folvite) 1 mg tablet Take 1 tablet (1 mg) by g-tube once daily. furosemide (Lasix) 20 mg tablet Take 1 tablet (20 mg) by g-tube once daily. For 5 days insulin lispro 100 unit/mL injection Inject 0-5 Units under the skin every 4 hours. Take as directed per insulin instructions. (Patient not taking: Reported on 06/19/2025) ipratropium-albuteroL (Duo-Neb) 0.5-2.5 mg/3 mL nebulizer solution Take 3 mL by nebulization 4 times a day. (Patient taking differently: Take 3 mL by nebulization 4 times a day as needed.) levothyroxine (Synthroid, Levoxyl) 137 mcg tablet Take 1 tablet (137 mcg) by mouth once daily. (Patient taking differently: Take 1 tablet (137 mcg) by g-tube once daily.) 90 tablet 3 levothyroxine (Synthroid, Levoxyl) 137 mcg tablet Take 1 tablet (137 mcg) by g-tube early in the morning.. liothyronine (Cytomel) 5 mcg tablet Take 1 tablet (5 mcg) by mouth once daily. (Patient taking differently: Take 1 tablet (5 mcg) by g-tube once daily.) 90 tablet 3 liothyronine (Cytomel) 5 mcg tablet Take 1 tablet (5 mcg) by g-tube once daily. metoclopramide (Reglan) 5 mg/mL injection Infuse 2 mL (10 mg) into a venous catheter every 8 hours for 7 days. (Patient not taking: Reported on 06/19/2025) multivitamin with minerals tablet Take 1 tablet by mouth once daily. (Patient not taking: Reported on 06/20/2025) 30 tablet 11 omeprazole (PriLOSEC) [address] capsule Take 1 capsule (40 mg) by mouth once daily. (Patient not taking: Reported on 06/19/2025) 30 capsule 6 [] ondansetron (Zofran) 4 mg tablet Take 1 tablet (4 mg) by g-tube every 8 hours if needed for nausea or vomiting. oxyCODONE (Roxicodone) 5 mg/5 mL solution Take 5 mL (5 mg) by g-tube every 6 hours if needed for severe pain (7 - 10) for up to 7 days. 140 mL 0 oxygen (O2) gas therapy Inhale 1 Dose once every 24 hours. pantoprazole (ProtoNix) 40 mg packet Take 1 packet (40 mg) by mouth once daily. sertraline (Zoloft) 50 mg tablet Take 1 tablet (50 mg) by mouth once daily. (Patient taking differently: Take 1 tablet (50 mg) by g-tube once daily.) 90 tablet 3 sertraline (Zoloft) 50 mg tablet Take 1 tablet (50 mg) by g-tube once daily. thiamine (Vitamin B-1) 100 mg tablet Take 1 tablet (100 mg) by mouth once daily. (Patient taking differently: Take 1 tablet (100 mg) by g-tube once daily.) [3] atorvastatin, 20 mg, g-tube, Nightly carvedilol, 6.25 mg, g-tube, BID ertapenem, 1 g, intravenous, q24h folic acid, 1 mg, g-tube, Daily insulin lispro, 0-5 Units, subcutaneous, TID AC levothyroxine, 137 mcg, g-tube, Daily liothyronine, 5 mcg, g-tube, Daily magnesium sulfate, 4 g, intravenous, Once midodrine, 5 mg, oral, TID pantoprazole, 40 mg, intravenous, Daily perflutren lipid microspheres, 0.5-10 mL of dilution, intravenous, Once in imaging sennosides, 1 tablet, oral, Nightly sertraline, 50 mg, g-tube, Daily sulfur hexafluoride microsphr, 2 mL, intravenous, Once in imaging thiamine, 100 mg, g-tube, Daily [4] [5] PRN medications: acetaminophen, dextrose, dextrose, glucagon, glucagon, ipratropium-albuteroL, oxyCODONE, oxygen documented in this encounter [facility] Work Phone: 06-25-2025 Plan of care note Problem: Skin Goal: Decreased wound size/increased tissue granulation at next dressing change Flowsheets (Taken 06/25/20251456) Decreased wound size/increased tissue granulation at next dressing change: Promote sleep for wound healing Protective dressings over bony prominences Goal: Participates in plan/prevention/treatment measures Flowsheets (Taken 06/25/20251456) Participates in plan/prevention/treatment measures: Elevate heels Discuss with provider PT/OT consult Goal: Prevent/manage excess moisture Flowsheets (Taken 06/25/20251456) Prevent/manage excess moisture: Moisturize dry skin Cleanse incontinence/protect with barrier cream Goal: Prevent/minimize sheer/friction injuries Flowsheets (Taken 06/25/20251456) Prevent/minimize sheer/friction injuries: Turn/reposition every 2 hours/use positioning/transfer devices Goal: Promote/optimize nutrition Flowsheets (Taken 06/25/20251456) Promote/optimize nutrition: Assist with feeding Goal: Promote skin healing Flowsheets (Taken 06/25/20251456) Promote skin healing: Turn/reposition every 2 hours/use positioning/transfer devices The patient's goals for the shift include The clinical goals for the shift include Patient will remain free form SOB during this shift. [facility] 06-25-2025 Plan of care note CHW met with patient at bedside, Patient requested ETOH resources. CHW provided patient with [facility], and other varies ETOH resources in patients area. Community Resource Name: Phone Number: Staff Member: Discussed the following topics on behalf of the patient: [] Behavioral Health Assistance [] Case Management [] Insulating Machine Operator Assistance [] Digital Equity Assistance [] Dental Health Assistance [] Education Assistance [] Employment Assistance [] Financial Strain Relief Assistance [] Food Insecurity Assistance [] Healthcare Coverage Assistance [] Housing Stability Assistance [] IP Violence Relief Assistance [] Legal Assistance [] Physical Activity Assistance [] Social Connection Assistance [] Stress Relief Assistance [x] Substance Abuse Assistance [] Transportation Assistance [] Utility Assistance [] Other: [insert comment here] Next Steps: AIDE Alarcon [facility] 06-24-2025 Plan of care note The patient's goals for the shift include The clinical goals for the shift include patient will remain free from SOB and maintain her o2 level by 95% during this shift. Over the shift, the patient did not make progress toward the following goals. Problem: Skin Goal: Decreased wound size/increased tissue granulation at next dressing change 06/24/20252216 by Denisa Brown RN Flowsheets (Taken 06/24/20252216) Decreased wound size/increased tissue granulation at next dressing change: Promote sleep for wound healing Protective dressings over bony prominences Utilize specialty bed per algorithm 06/24/20252215 by Denisa Brown RN Outcome: Progressing Goal: Participates in plan/prevention/treatment measures Outcome: Progressing Goal: Prevent/manage excess moisture Outcome: Progressing Goal: Prevent/minimize sheer/friction injuries Outcome: Progressing Goal: Promote/optimize nutrition Outcome: Progressing Goal: Promote skin healing Outcome: Progressing [facility] 06-24-2025 Plan of care note The patient's goals for the shift include The clinical goals for the shift include patient will remain free from SOB and maintain her o2 level by 95% during this shift. Over the shift, the patient did not make progress toward the following goals. Problem: Pain - Adult Goal: Verbalizes/displays adequate comfort level or baseline comfort level Outcome: Progressing Problem: Safety - Adult Goal: Free from fall injury Outcome: Progressing Problem: Discharge Planning Goal: Discharge to home or other facility with appropriate resources Outcome: Progressing Problem: Chronic Conditions and Co-morbidities Goal: Patient's chronic conditions and co-morbidity symptoms are monitored and maintained or improved Outcome: Progressing Problem: Nutrition Goal: Nutrient intake appropriate for maintaining nutritional needs Outcome: Progressing Problem: Skin Goal: Decreased wound size/increased tissue granulation at next dressing change Outcome: Progressing Goal: Participates in plan/prevention/treatment measures Outcome: Progressing Goal: Prevent/manage excess moisture Outcome: Progressing Goal: Prevent/minimize sheer/friction injuries Outcome: Progressing Goal: Promote/optimize nutrition Outcome: Progressing Goal: Promote skin healing Outcome: Progressing Problem: Pain Goal: Takes deep breaths with improved pain control throughout the shift Outcome: Progressing Goal: Turns in bed with improved pain control throughout the shift Outcome: Progressing Goal: Walks with improved pain control throughout the shift Outcome: Progressing Goal: Performs ADL's with improved pain control throughout shift Outcome: Progressing Goal: Participates in PT with improved pain control throughout the shift Outcome: Progressing Goal: Free from opioid side effects throughout the shift Outcome: Progressing Goal: Free from acute confusion related to pain meds throughout the shift Outcome: Progressing . [facility] Work Phone: 06-24-2025 Plan of care note The patient's goals for the shift include The clinical goals for the shift include patient will remain free from SOB and maintain her o2 level by 95% during this shift. Problem: Pain - Adult Goal: Verbalizes/displays adequate comfort level or baseline comfort level Outcome: Progressing Problem: Safety - Adult Goal: Free from fall injury Outcome: Progressing Problem: Discharge Planning Goal: Discharge to home or other facility with appropriate resources Outcome: Progressing Problem: Chronic Conditions and Co-morbidities Goal: Patient's chronic conditions and co-morbidity symptoms are monitored and maintained or improved Outcome: Progressing Problem: Nutrition Goal: Nutrient intake appropriate for maintaining nutritional needs Outcome: Progressing Problem: Skin Goal: Decreased wound size/increased tissue granulation at next dressing change Outcome: Progressing Goal: Participates in plan/prevention/treatment measures Outcome: Progressing Flowsheets (Taken 06/24/2025 1602) Participates in plan/prevention/treatment measures: Elevate heels Increase activity/out of bed for meals Goal: Prevent/manage excess moisture Outcome: Progressing Flowsheets (Taken 06/24/20251601) Prevent/manage excess moisture: Moisturize dry skin Cleanse incontinence/protect with barrier cream Goal: Prevent/minimize sheer/friction injuries Outcome: Progressing Flowsheets (Taken 06/24/20251601) Prevent/minimize sheer/friction injuries: Turn/reposition every 2 hours/use positioning/transfer devices Goal: Promote/optimize nutrition Outcome: Progressing Flowsheets (Taken 06/24/20251601) Promote/optimize nutrition: Assist with feeding Goal: Promote skin healing Outcome: Progressing Flowsheets (Taken 06/24/20251601) Promote skin healing: Assess skin/pad under line(s)/device(s) Turn/reposition every 2 hours/use positioning/transfer devices Problem: Pain Goal: Takes deep breaths with improved pain control throughout the shift Outcome: Progressing Goal: Turns in bed with improved pain control throughout the shift Outcome: Progressing Goal: Walks with improved pain control throughout the shift Outcome: Progressing Goal: Performs ADL's with improved pain control throughout shift Outcome: Progressing Goal: Participates in PT with improved pain control throughout the shift Outcome: Progressing Goal: Free from opioid side effects throughout the shift Outcome: Progressing Goal: Free from acute confusion related to pain meds throughout the shift Outcome: Progressing [facility] Work Phone: 06-24-2025 guest experience manager Note Rapid Response Nurse Note: RADAR alert: 8 Pager time: [phone] Arrival time: 524 Event end time: 534 Location: [facility] [x] Triage by phone or secure messaging Rapid response initiated by: [] Rapid response RN [] Family [] Nursing Manager Of Pharmacy [] Physician [x] RADAR auto page [] Sepsis auto-page [] RN [] RT [] MIDDLE SCHOOL TUTOR/PA [] Other: Primary reason for call: [] BAT [] New CPAP/BiPAP [] Bleeding [] Change in mental status [] Chest pain [] Code blue [] FiO2 >/= 50% [] HR [] HR >/= 130 bpm [] Hyperglycemia [] Hypoglycemia [x] RADAR [] RR /= 30 bpm [] SBP [] Seizure [] Sepsis [] Shortness of breath [] Staff concern: see comments Initial VS and/or RADAR VS: T 36.8 C; HR 92; RR 16; BP 94/65; SPO2 91%. Interventions: [x] None [] ABG/VBG [] Assist w/ICU transfer [] BAT paged [] Bag mask [] Blood [] Cardioversion [] Code Blue [] Code blue for intubation [] Code status changed [] Chest x-ray [] EKG [] IV fluid/bolus [] KUB x-ray [] Labs/cultures [] Medication [] Nebulizer treatment [] NIPPV (CPAP/BiPAP) [] Oxygen [] Oral airway [] Peripheral IV [] Palliative care consult [] CT/MRI [] Sepsis protocol [] Suctioned [] Other: Outcome: [] Coded and [] Code blue for intubation [] Coded and transferred to ICU [] on division [x] Remained on division (no change) [] Remained on division + additional monitoring [] Remained in ED [] Transferred to ED [] Transferred to ICU [] Transferred to inpatient status [] Transferred for interventions (procedure) [] Transferred to ICU stepdown [] Transferred to surgery [] Transferred to telemetry [] Sepsis protocol [] STEMI protocol [] Stroke protocol [x] Bedside nurse instructed to page rapid response for any concerns or acute change in condition/VS Additional Comments: Reviewed above RADAR VS with bedside RN via phone. Vital signs within patient's current trends. No acute change in condition. No interventions by rapid response team indicated at this time. Staff to page rapid response for any concerns or acute change in condition or VS. T [facility] 06-24-2025 Plan of care note The patient's goals for the shift include The clinical goals for the shift include pts pulse ox will remain above 95% by 700 on 06/24/25 Over the shift, the patient did not make progress toward the following goals. Barriers to progression include . Recommendations to address these barriers include . [facility] Work Phone: 06-23-2025 Plan of care note The patient's goals for the shift include The clinical goals for the shift include Patient remains free from injury during shift Patient remains free from injury during shift. She had intermittent pain relieved with pain medication. Tube feeding started and patient tolerating well. [facility] 06-23-2025 Consult note Associated Order (s): IP CONSULT TO NUTRITION SERVICES Nutrition Assessment Reason for Assessment: Admission nursing screening - Home tube feeding. Vj Myers is a 55 y.o. 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 06/20 with hypoxia (up to 10L from baseline of 2L) and transferred to [facility] on 06/22 for further care. Nutrition History: Food and Nutrient History: Per Transitional Care note, patient was residing at a SNF most recently. Patient communicates via White board. This Clinician met with patient who was unable to remember the name of her TF while at the SNF. Nor was there any mention of TF formula in patient's paper chart, only that she has a PEG and receives TF. The last nutrition note from previous [facility] hospitalization (06/12-06/17) indicates that patient was receiving Two Gonsalo HN at 35 ml/hr. Patient denies N/V/C/D. She is NPO, but wrote on her white board I would like to eat. Vitamin/Herbal Supplement Use: Home meds include MVI, Folic Acid and Thiamine. Food Allergies: (None per Allergy list.) Anthropometrics: Height: 160 cm (5' 3) Weight: 91.5 kg (201 lb 11.2 oz) BMI (Calculated): 35.74 IBW/kg (Dietitian Calculated): 52.3 kg Percent of IBW: 62.1 % Weight History: Wt Readings from Last 15 Encounters: 06/23/25 91.5 kg (201 lb 11.2 oz) 06/19/25 92.5 kg (204 lb) 06/17/25 92.8 kg (204 lb 9.6 oz) 06/11/25 91.4 kg (201 lb 6.4 oz) 01/12/25 81.6 kg (180 lb) 01/07/25 90.2 kg (198 lb 13.7 oz) 06/27/24 72.6 kg (160 lb) 05/29/24 72.6 kg (160 lb) 04/19/24 85.3 kg (188 lb) 04/08/24 79.8 kg (176 lb) 04/05/24 79.4 kg (175 lb) 03/25/24 84.4 kg (186 lb 1.6 oz) 02/28/24 83.5 kg (184 lb) 02/06/24 82.1 kg (181 lb) 02/02/24 77.1 kg (170 lb) Weight Change %: Weight History / % Weight Change: 26% wt gain x 1 terence. Nutrition Focused Physical Exam Findings: Subcutaneous Fat Loss: Orbital Fat Pads: Mild-Moderate (slight dark circles and slight hollowing) Buccal Fat Pads: Mild-Moderate (flat cheeks, minimal bounce) Triceps: Well nourished (ample fat tissue) Ribs: Defer Muscle Wasting: Temporalis: Well nourished (well-defined muscle) Pectoralis (Clavicular Region): Mild-Moderate (some protrusion of clavicle) Deltoid/Trapezius: Mild-Moderate (slight protrusion of acromion process) Interosseous: Well nourished (muscle bulges) Trapezius/Infraspinatus/Supraspinatus (Scapular Region): Mild-Moderate (slight protrusion of scapula) Quadriceps: Defer Gastrocnemius: Defer Edema: Edema: (B/L UE +1 and B/L LE non-pitting) Physical Findings: Hair: Negative Eyes: Negative Nails: Negative Skin: Positive (R lateral ankle wound) Mouth Findings: Dysphagia Teeth Findings: Edentulous Nutrition Significant Labs: CBC Trend: Results from last 7 days Lab Units 06/22/25 0435 06/21/25164406/19/25193106/17/25 0627 WBC AUTO x10*3/uL 6.7 8.0 15.1* 5.9 RBC AUTO x10*6/uL 2.54* 2.76* 2.92* 2.74* HEMOGLOBIN g/dL 8.2* 8.9* 9.4* 8.6* HEMATOCRIT % 24.8* 28.2* 29.1* 28.2* MCV fL 98 102* 100 103* PLATELETS AUTO x10*3/uL 216 212 260 143* , BMP Trend: Results from last 7 days Lab Units 06/22/2542206/21/25164406/19/25193106/17/25 0627 GLUCOSE mg/dL 90 112* 104* 93 CALCIUM mg/dL 8.0* 8.2* 8.4* 8.0* SODIUM mmol/L 135* 135* 135* 140 POTASSIUM mmol/L 4.4 4.2 4.5 3.3* CO2 mmol/L 34* 34* 30 28 CHLORIDE mmol/L 98 97* 101 104 BUN mg/dL 8 10 11 5* CREATININE mg/dL 0.56 0.55 0.56 0.60 , A1C:No results found for: HGBA1C, BG POCT trend: Results from last 7 days Lab Units 06/23/25 1010 06/23/25 0741 06/23/25 0449 06/23/25 0016 06/22/25 2040 POCT GLUCOSE mg/dL 66* 76 71* 76 79 , Renal Lab Trend: Results from last 7 days Lab Units 06/22/25 04206/21/25164406/19/25193106/17/25 0627 POTASSIUM mmol/L 4.4 4.2 4.5 3.3* PHOSPHORUS mg/dL 3.6 -- -- -- SODIUM mmol/L 135* 135* 135* 140 MAGNESIUM mg/dL 1.56* 1.44* -- 1.83 EGFR mL/min/1.73m*2 >90 >90 >90 >90 BUN mg/dL 8 10 11 5* CREATININE mg/dL 0.56 0.55 0.56 0.60 , Vit D: Lab Results Component Value Date VITD25 13 (A) 10/14/2022 , Vit B12: Lab Results Component Value Date [id number] 1,069 (H) 06/13/2025 Nutrition Specific Medications: Scheduled medications atorvastatin, 20 mg, g-tube, Nightly carvedilol, 6.25 mg, g-tube, BID ertapenem, 1 g, intravenous, q24h folic acid, 1 mg, g-tube, Daily insulin lispro, 0-5 Units, subcutaneous, TID AC levothyroxine, 137 mcg, g-tube, Daily liothyronine, 5 mcg, g-tube, Daily magnesium sulfate, 4 g, intravenous, Once midodrine, 5 mg, oral, TID pantoprazole, 40 mg, intravenous, Daily perflutren lipid microspheres, 0.5-10 mL of dilution, intravenous, Once in imaging sennosides, 1 tablet, oral, Nightly sertraline, 50 mg, g-tube, Daily sulfur hexafluoride microsphr, 2 mL, intravenous, Once in imaging thiamine, 100 mg, g-tube, Daily Continuous medications PRN medications PRN medications: acetaminophen, dextrose, dextrose, glucagon, glucagon, ipratropium-albuteroL, oxyCODONE, oxygen I/O: ; Stool Appearance: Soft, Formed (06/23/25 1413) Dietary Orders (From admission, onward) Start Ordered 06/23/25 1233 Enteral feeding with NPO TwoCal HN; PEG (percutaneous endoscopic gastric); 15; 100; Water; Tap water; Every 6 hours Diet effective now Comments: 15ml Tube feed rate to start increase 10 ml/hr q6H to goal of 35 ml/hr Question Answer Comment Tube feeding formula: TwoCal HN Feeding route: PEG (percutaneous endoscopic gastric) Tube feeding continuous rate (mL/hr): 15 Tube feeding flush (mL): 100 Flush type: Water Water type: Tap water Flush frequency: Every 6 hours 06/23/25 1233 06/22/255 May Participate in Room Service With Assistance ( ROOM SERVICE MAY PARTICIPATE WITH ASSISTANCE) Once Question: . Answer: Yes 06/22/25443 Estimated Needs: Total Energy Estimated Needs in 24 hours (kCal): (6184-9752) Method for Estimating Needs: 30-35 kcal/kg IBW Total Protein Estimated Needs in 24 Hours (g): 75 g Method for Estimating 24 Hour Protein Needs: 1.5 g/kg IBW Total Fluid Estimated Needs in 24 Hours (mL): 1800 mL Method for Estimating 24 Hour Fluid Needs: 35 ml/kg IBW Nutrition Diagnosis Malnutrition Diagnosis Patient has Malnutrition Diagnosis: Yes Malnutrition Diagnosis: Moderate malnutrition related to chronic disease or condition As Evidenced by: mild muscle loss and subcutaneous fat loss per physical exam Nutrition Diagnosis Patient has Nutrition Diagnosis: Yes Nutrition Diagnosis 1: 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 Nutrition Interventions/Recommendations Nutrition prescription for enteral nutrition Nutrition Recommendations: Increase TwoCal HN to 35 ml/hr. Water flushes per MD. (at goal, TF provides ~ 600ml of water/day) Continue Folic Acid and Thiamine. Order daily MVI Obtain a Vitamin D level. Goal: TwoCal HN @ 35 = 1680 kcals, 70gm protein with ~600mls free water/day Nutrition Interventions/Goals: Enteral Intake: Management of composition of enteral nutrition, Management of delivery rate of enteral nutrition Education Documentation No documentation found. Nutrition Monitoring and Evaluation Enteral and Parenteral Nutrition Intake Determination: Enteral nutrition intake - To meet > 75% estimated energy needs, Enteral nutrition intake - Tolerate TF at goal rate Goal Status: New goal(s) identified Time Spent (min): 45 minutes [facility] Work Phone: 06-23-2025 Evaluation + Plan note Associated Problem(s): Acute hypoxic respiratory failure 55 y.o. female with history of SCC of the supraglottic region (2008, s/p chemo/rads and laryngectomy with flap/TEF creation for phonation) who was recently admitted to thoracic surgery after presenting with aspiration PNA/pneumonitis (now s/p esophageal stent and PEG placement and trach decannulation). She then [facility] with acute on chronic hypoxic respiratory failure which improved after diuresis. Now weaned to baseline 2L O2 via trach mask. Breathing comfortably, esophageal stent in unchanged position. Recommendations: - No indication for thoracic surgery indication at this time in light of respiratory status back at baseline - Patient is scheduled for EGD with stent exchange on 07/[address] Thomas and appt scheduled for 06/24/25 - Rest of care per primary team, thoracic surgery will sign off, plage with questions [phone] [facility] Work Phone: 06-23-2025 Consult note Associated Order (s): Inpatient consult to Infectious Diseases Inpatient consult to Infectious Diseases Consult performed by: Doug Rivera MD Consult ordered by: Juan R Mendez MD Primary MD: Stevenson Adair APRN-[facility]BALMER APPRENTICE Reason For Consult: c/f ESBL UTI History Of Present Illness Vj Myers is a 55 y.o. 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 06/20 with hypoxia (up to 10L from baseline of 2L) and transferred to [facility] on 06/22 for further care. Since transfer she was weaned to 2-4L trach collar prior to any antibiotic initiation. She had a UA on 07/01 that had no pyuria, 1-9 squams, LE, and 20-80K CFU E coli and ESBL Klebsiella pneumonia. She initially did not report urinary symptoms, but at [facility] she did report dysuria per report. She was started on ceftriaxone yesterday 06/22. Reviewed history with patient. She reports no former nor current fevers, chills, dysuria, suprapubic pain, hematuria, flank pain. Her urine is dark. 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 Surgical History She has a past surgical history that includes Other surgical history (10/26/2021); Other surgical history (10/26/2021); Other surgical history (10/26/2021); Other surgical history (10/26/2021); Other surgical history (11/09/2021); Hysterectomy; IR injection epidural steroid (N/A, 04/05/2024); Flexible bronchoscopy w/ stent placement (06/12/2025); and Gastrostomy tube placement (06/12/2025). Social History Occupational History Not on file Tobacco Use Smoking status: Former Types: Cigarettes Smokeless tobacco: Never Vaping Use Vaping status: Never Used Substance and Sexual Activity Alcohol use: Defer Alcohol/week: 20.0 - 42.0 standard drinks of alcohol Types: 20 - 42 Standard drinks or equivalent per week Comment: Son states patient drinks if she can get her hands on a pint, she will drink 3-4 pints at a time Drug use: Never Sexual activity: Not on file Travel History Travel since 05/23/25 No documented travel since 05/23/25 Family History Family History[1] Allergies Iodinated contrast media, Morphine, Adhesive, and Latex Immunization History Administered Date(s) Administered Flu vaccine (IIV4), preservative free *Check age/dose* 10/11/2021, 09/01/2022 Medications Home medications: Prescriptions Prior to Admission[2] Current medications: Scheduled medications Scheduled Medications[3] Continuous medications Continuous Medications[4] PRN medications PRN Medications[5] Review of Systems Objective Range of Vitals (last 24 hours) Heart Rate: [65-106] Temp: [35.8 C (96.4 F)] Resp: [7-19] BP: (82-149)/(57-103) Weight: [91.5 kg (201 lb 11.2 oz)] SpO2: [91 %-100 %] Daily Weight 06/23/25 : 91.5 kg (201 lb 11.2 oz) Body mass index is 35.73 kg/m . Physical Exam GEN: Awake, alert, NAD. Trached, uses board for complex communication HEENT: EOMI, anicteric, missing teeth, no thrush CV: RRR, no murmurs LUNGS: CTAB largely, decreased sounds at bases comparatively ABD: Soft, NT, ND, no rebound. No SP or CVA tenderness EXT: No LE edema. Relevant Results Labs Results from last 72 hours Lab Units 06/22/25 0435 06/21/25 1645 WBC AUTO x10*3/uL 6.7 8.0 HEMOGLOBIN g/dL 8.2* 8.9* HEMATOCRIT % 24.8* 28.2* PLATELETS AUTO x10*3/uL 216 212 NEUTROS PCT AUTO % 68.6 -- LYMPHS PCT AUTO % 16.7 -- MONOS PCT AUTO % 9.1 -- EOS PCT AUTO % 3.9 -- Results from last 72 hours Lab Units 06/22/25 0423 06/21/25 1645 SODIUM mmol/L 135* 135* POTASSIUM mmol/L 4.4 4.2 CHLORIDE mmol/L 98 97* CO2 mmol/L 34* 34* BUN mg/dL 8 10 CREATININE mg/dL 0.56 0.55 GLUCOSE mg/dL 90 112* CALCIUM mg/dL 8.0* 8.2* ANION GAP mmol/L 7* 8* EGFR mL/min/1.73m*2 >90 >90 PHOSPHORUS mg/dL 3.6 -- Results from last 72 hours Lab Units 06/22/25 0423 06/21/25 1645 ALK PHOS U/L 212* 243* BILIRUBIN TOTAL mg/dL 0.6 0.5 BILIRUBIN DIRECT mg/dL 0.2 -- PROTEIN TOTAL g/dL 4.5* 4.6* ALT U/L 10 11 AST U/L 38 42* ALBUMIN g/dL 2.0* 2.1* Estimated Creatinine Clearance: 121.9 mL/min (by C-G formula based on SCr of 0.56 mg/dL). No results found for: CRP, SEDRATE No results found for: HIV1X2, HIVCONF, [id number] Hepatitis C AB Date Value Ref Range Status 06/07/2025 Nonreactive Nonreactive Final Comment: Results from patients taking biotin supplements or receiving high-dose biotin therapy should be interpreted with caution due to possible interference with this test. Providers may contact their local laboratory for further information. Microbiology Susceptibility data from last 90 days. Collected Specimen Info Organism Amoxicillin/Clavulanate Ampicillin Ampicillin/Sulbactam Aztreonam Cefazolin Cefazolin (uncomplicated UTIs only) Cefepime Ceftazidime Ceftriaxone Cefuroxime (oral) Ciprofloxacin 06/20/25 Urine from Clean Catch/Voided Klebsiella pneumoniae/variicola I R R R R R R R R R I Escherichia coli S S S S Collected Specimen Info Organism Ertapenem Gentamicin Levofloxacin Meropenem Nitrofurantoin Piperacillin/Tazobactam Trimethoprim/Sulfamethoxazole 06/20/25 Urine from Clean Catch/Voided Klebsiella pneumoniae/variicola S S I S R R R Escherichia coli S S S S S Imaging Reviewed, including images in [facility]. 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 06/20 with hypoxia (up to 10L from baseline of 2L) and transferred to [facility] on 06/22 for further care. ID consulted with Ucx with ESBL Klebsiella pneumoniae and wild-type E coli. I do not suspect UTI; on multiple rounds of questioning today, she denied any dysuria, suprapubic pain, or any UTI symptoms either today or in the past few weeks. She has had UTIs in the past, and she has not had similar symptoms recently. Her UA had <5 WBC (>95% NPV for UTI when no pyuria detected) and her Ucx had two bacteria that were only 20-80K CFU, which could reflect asymptomatic bacteriuria. From a respiratory perspective, her CT showed improved bilateral effusions and atelectasis without debbie consolidaiton; may have been aspiration pneumonitis without pneumonia, for which 2 days of CTX would be likely sufficient anyways. Plan -Can stop antibiotics for reasons detailed above ID Team C will sign off, but please feel free to message me through with questions or reconsult ID thereafter. Doug Rivera MD [1] Family History Problem Relation Name Age of Onset Lung cancer Mother Heart failure Father Colon cancer Sister Diabetes Brother Heart failure Other Grandmother [2] Medications Prior to Admission Medication Sig Dispense Refill Last Dose/Taking acetaminophen (Tylenol) 325 mg tablet Take 2 tablets (650 mg) by mouth every 4 hours if needed for moderate pain (4 - 6) or mild pain (1 - 3). (Patient taking differently: Take 2 tablets (650 mg) by g-tube every 4 hours if needed for moderate pain (4 - 6) or mild pain (1 - 3).) 30 tablet 0 atorvastatin (Lipitor) 20 mg tablet Take 1 tablet (20 mg) by g-tube once daily at bedtime. carvedilol (Coreg) 6.25 mg tablet Take 1 tablet (6.25 mg) by mouth 2 times a day. (Patient taking differently: Take 1 tablet (6.25 mg) by g-tube 2 times a day.) 30 tablet 0 docusate sodium (Colace) 100 mg capsule Take 1 tablet (100 mg) by mouth once daily. Give via G-tube docusate sodium (Colace) 50 mg/5 mL oral liquid Take 10 mL (100 mg) by g-tube 2 times a day. (Patient not taking: Reported on 06/20/2025) folic acid (Folvite) 1 mg tablet Take 1 tablet (1 mg) by g-tube once daily. furosemide (Lasix) 20 mg tablet Take 1 tablet (20 mg) by g-tube once daily. For 5 days insulin lispro 100 unit/mL injection Inject 0-5 Units under the skin every 4 hours. Take as directed per insulin instructions. (Patient not taking: Reported on 06/19/2025) ipratropium-albuteroL (Duo-Neb) 0.5-2.5 mg/3 mL nebulizer solution Take 3 mL by nebulization 4 times a day. (Patient taking differently: Take 3 mL by nebulization 4 times a day as needed.) levothyroxine (Synthroid, Levoxyl) 137 mcg tablet Take 1 tablet (137 mcg) by mouth once daily. (Patient taking differently: Take 1 tablet (137 mcg) by g-tube once daily.) 90 tablet 3 levothyroxine (Synthroid, Levoxyl) 137 mcg tablet Take 1 tablet (137 mcg) by g-tube early in the morning.. liothyronine (Cytomel) 5 mcg tablet Take 1 tablet (5 mcg) by mouth once daily. (Patient taking differently: Take 1 tablet (5 mcg) by g-tube once daily.) 90 tablet 3 liothyronine (Cytomel) 5 mcg tablet Take 1 tablet (5 mcg) by g-tube once daily. metoclopramide (Reglan) 5 mg/mL injection Infuse 2 mL (10 mg) into a venous catheter every 8 hours for 7 days. (Patient not taking: Reported on 06/19/2025) multivitamin with minerals tablet Take 1 tablet by mouth once daily. (Patient not taking: Reported on 06/20/2025) 30 tablet 11 omeprazole (PriLOSEC) [address] capsule Take 1 capsule (40 mg) by mouth once daily. (Patient not taking: Reported on 06/19/2025) 30 capsule 6 [] ondansetron (Zofran) 4 mg tablet Take 1 tablet (4 mg) by g-tube every 8 hours if needed for nausea or vomiting. oxyCODONE (Roxicodone) 5 mg/5 mL solution Take 5 mL (5 mg) by g-tube every 6 hours if needed for severe pain (7 - 10) for up to 7 days. 140 mL 0 oxygen (O2) gas therapy Inhale 1 Dose once every 24 hours. pantoprazole (ProtoNix) 40 mg packet Take 1 packet (40 mg) by mouth once daily. sertraline (Zoloft) 50 mg tablet Take 1 tablet (50 mg) by mouth once daily. (Patient taking differently: Take 1 tablet (50 mg) by g-tube once daily.) 90 tablet 3 sertraline (Zoloft) 50 mg tablet Take 1 tablet (50 mg) by g-tube once daily. thiamine (Vitamin B-1) 100 mg tablet Take 1 tablet (100 mg) by mouth once daily. (Patient taking differently: Take 1 tablet (100 mg) by g-tube once daily.) [3] atorvastatin, 20 mg, g-tube, Nightly carvedilol, 6.25 mg, g-tube, BID ertapenem, 1 g, intravenous, q24h folic acid, 1 mg, g-tube, Daily insulin lispro, 0-5 Units, subcutaneous, TID AC levothyroxine, 137 mcg, g-tube, Daily liothyronine, 5 mcg, g-tube, Daily magnesium sulfate, 4 g, intravenous, Once midodrine, 5 mg, oral, TID pantoprazole, 40 mg, intravenous, Daily perflutren lipid microspheres, 0.5-10 mL of dilution, intravenous, Once in imaging sennosides, 1 tablet, oral, Nightly sertraline, 50 mg, g-tube, Daily sulfur hexafluoride microsphr, 2 mL, intravenous, Once in imaging thiamine, 100 mg, g-tube, Daily [4] [5] PRN medications: acetaminophen, dextrose, dextrose, glucagon, glucagon, ipratropium-albuteroL, oxyCODONE, oxygen [facility] Work Phone: 06-23-2025 Plan of care note The patient's goals for the shift include The clinical goals for the shift include Pt. will remain HDS throuhgout shift Over the shift, the patient did not make progress toward the following goals. Barriers to progression include Problem: Pain - Adult Goal: Verbalizes/displays adequate comfort level or baseline comfort level Outcome: Progressing Problem: Safety - Adult Goal: Free from fall injury Outcome: Progressing Problem: Discharge Planning Goal: Discharge to home or other facility with appropriate resources Outcome: Progressing Problem: Chronic Conditions and Co-morbidities Goal: Patient's chronic conditions and co-morbidity symptoms are monitored and maintained or improved Outcome: Progressing Problem: Nutrition Goal: Nutrient intake appropriate for maintaining nutritional needs Outcome: Progressing Problem: Skin Goal: Decreased wound size/increased tissue granulation at next dressing change Outcome: Progressing Goal: Participates in plan/prevention/treatment measures Outcome: Progressing Goal: Prevent/manage excess moisture Outcome: Progressing Goal: Prevent/minimize sheer/friction injuries Outcome: Progressing Goal: Promote/optimize nutrition Outcome: Progressing Goal: Promote skin healing Outcome: Progressing Problem: Pain Goal: Takes deep breaths with improved pain control throughout the shift Outcome: Progressing Goal: Turns in bed with improved pain control throughout the shift Outcome: Progressing Goal: Walks with improved pain control throughout the shift Outcome: Progressing Goal: Performs ADL's with improved pain control throughout shift Outcome: Progressing Goal: Participates in PT with improved pain control throughout the shift Outcome: Progressing Goal: Free from opioid side effects throughout the shift Outcome: Progressing Goal: Free from acute confusion related to pain meds throughout the shift Outcome: Progressing . Recommendations to address these barriers include . T [facility] 06-22-2025 Plan of care note The patient's goals for the shift include The clinical goals for the shift include Pt. will remain HDS throuhgout shift Problem: Pain - Adult Goal: Verbalizes/displays adequate comfort level or baseline comfort level Outcome: Progressing Problem: Safety - Adult Goal: Free from fall injury Outcome: Progressing Problem: Discharge Planning Goal: Discharge to home or other facility with appropriate resources Outcome: Progressing Problem: Chronic Conditions and Co-morbidities Goal: Patient's chronic conditions and co-morbidity symptoms are monitored and maintained or improved Outcome: Progressing Problem: Nutrition Goal: Nutrient intake appropriate for maintaining nutritional needs Outcome: Progressing Problem: Skin Goal: Decreased wound size/increased tissue granulation at next dressing change Outcome: Progressing Flowsheets (Taken 06/22/2025836) Decreased wound size/increased tissue granulation at next dressing change: Promote sleep for wound healing Protective dressings over bony prominences Utilize specialty bed per algorithm Goal: Participates in plan/prevention/treatment measures Outcome: Progressing Flowsheets (Taken 06/22/2025836) Participates in plan/prevention/treatment measures: Discuss with provider PT/OT consult Elevate heels Increase activity/out of bed for meals Goal: Prevent/manage excess moisture Outcome: Progressing Flowsheets (Taken 06/22/2025836) Prevent/manage excess moisture: Cleanse incontinence/protect with barrier cream Monitor for/manage infection if present Moisturize dry skin Follow provider orders for dressing changes Goal: Prevent/minimize sheer/friction injuries Outcome: Progressing Flowsheets (Taken 06/22/2025836) Prevent/minimize sheer/friction injuries: Use pull sheet Turn/reposition every 2 hours/use positioning/transfer devices Utilize specialty bed per algorithm Complete micro-shifts as needed if patient unable. Adjust patient position to relieve pressure points, not a full turn HOB 30 degrees or less Goal: Promote/optimize nutrition Outcome: Progressing Flowsheets (Taken 06/22/2025 08) Promote/optimize nutrition: Discuss with provider if NPO > 2 days Monitor/record intake including meals Goal: Promote skin healing Outcome: Progressing Flowsheets (Taken 06/22/2025 08) Promote skin healing: Assess skin/pad under line(s)/device(s) Protective dressings over bony prominences Turn/reposition every 2 hours/use positioning/transfer devices Rotate device position/do not position patient on device Ensure correct size (line/device) and apply per clay modeler instructions Problem: Pain Goal: Takes deep breaths with improved pain control throughout the shift Outcome: Progressing Goal: Turns in bed with improved pain control throughout the shift Outcome: Progressing [facility] 06-22-2025 Nurse Note [facility] to transport patient via cot [place] [facility]. [facility] 06-22-2025 Nurse Note [facility] to [facility] [facility]. [facility] to Jean Carlos [facility]ZO at [facility] Pt arrived in room from ED, transferred to unit bed, monitors attached. Pt has mask over trach with O2. Pt complains of soreness and tenderness in the selma-area, which is intact but very irritated and red; cleansed and covered with a brief change. Pt is alert, but not understandable when she tries to speak. documented in this encounter [facility] Work Phone: 06-22-2025 History and physical note Medical Intensive Care - History and Physical Subjective Vj Myers is a 55 y.o. year old female patient admitted on (Not on file) with following ICU needs: AHRF, surgical evaluation iso recent tracheostomy tube removal/ stent placement HPI: 55 y.o. female with history of SCC of the supraglottic region (2007, s/p chemo/rads and laryngectomy with flap/TEF creation for phonation; current stoma from prior tracheostomy site), alcohol use disorder (reportedly drinks >1 pint of liquor daily), former smoker, chronic hypoxic respiratory failure (on 2L O2 at baseline), hypothyroidism, GERD, HTN, HLD presenting from [facility] from SNF with acute on chronic hypoxic respiratory failure requiring ventimask. She was recently discharged from [facility] 06/17 after esophageal stent placement and tracheostomy tube decannulation 06/13 with thoracic surgery (Dr. Thomas) . During this hospitalization she was found septic on arrival due to aspiration pna vs pneumonitis 2/2 remote surgical TEF. By discharge she was oxygenating well on trach collar with fio2 of 44%. She [facility] from [facility] with hypoxia 80%s on 2L NC, was placed on NRB at 10lpm over stoma by EMS. By the time she was admitted she was weaned down to 5L trach mask and satting 100%. Was given IV lasix 40mg for generalized edema, Ucx growing ecoli and klebsiella pneumoniae but reportedly patient asymptomatic so abx were not started. Most recent labs at [facility]: Na 135, K 4.2, Cl 97, Bicarb 34, BUN 10, Cr 0.55 Alk phos 243, ALT 11, AST 42, Tbili 0.5, Mg 1.44 WBC 8, Hgb 8.9, plt 212 Alcohol <10 BNP 317 CXR 06/19 IMPRESSION: 1. Question trace bilateral pleural effusions. [place] [facility], patient states she is doing so-so. VS stable, Af, HR 80, R 21, 103/76. She is on 11L O2. Cannot speak but is coherent and mouths words. Denies CP or SOB, reports emesis 2 days ago but not since, denies diarrhea. Endorses new dry cough, denies sick contacts. Has some soreness around PEG site but no drainage. Did endorse some dysuria and burning with urination. Denies throat pain. Meds Home medications: Current Outpatient Medications Medication Instructions acetaminophen (TYLENOL) 650 mg, oral, Every 4 hours PRN atorvastatin (Lipitor) 20 mg tablet 1 tablet, g-tube, Nightly carvedilol (COREG) 6.25 mg, oral, 2 times daily docusate sodium (COLACE) 100 mg, g-tube, 2 times daily docusate sodium (COLACE) 100 mg, oral, Daily, Give via G-tube folic acid (FOLVITE) 1 mg, g-tube, Daily furosemide (LASIX) 20 mg, g-tube, Daily, For 5 days insulin lispro 0-5 Units, subcutaneous, Every 4 hours, Take as directed per insulin instructions. ipratropium-albuteroL (Duo-Neb) 0.5-2.5 mg/3 mL nebulizer solution 3 mL, nebulization, 4 times daily levothyroxine (SYNTHROID, LEVOXYL) 137 mcg, oral, Daily levothyroxine (SYNTHROID, LEVOXYL) 137 mcg, g-tube, Daily liothyronine (CYTOMEL) 5 mcg, oral, Daily liothyronine (CYTOMEL) 5 mcg, g-tube, Daily metoclopramide (REGLAN) 10 mg, intravenous, Every 8 hours multivitamin with minerals tablet 1 tablet, oral, Daily omeprazole (PRILOSEC) 40 mg, oral, Daily ondansetron (ZOFRAN) 4 mg, Every 8 hours PRN oxyCODONE (ROXICODONE) 5 mg, g-tube, Every 6 hours PRN oxygen (O2) gas therapy 1 Dose, inhalation, Every 24 hours pantoprazole (PROTONIX) 40 mg, oral, Daily sertraline (ZOLOFT) 50 mg, oral, Daily sertraline (ZOLOFT) 50 mg, g-tube, Daily thiamine (VITAMIN B-1) 100 mg, oral, Daily Inpatient medications: Scheduled medications Scheduled Medications[1] Continuous medications Continuous Medications[2] PRN medications PRN Medications[3] Objective BP 103/76 Pulse 80 Temp 36.3 C (97.3 F) (Temporal) Resp 21 Ht 1.6 m (5' 3) Wt 88.6 kg (195 lb 5.2 oz) SpO2 100% BMI 34.60 kg/m Physical Exam Constitutional: General: She is not in acute distress. HENT: Head: Normocephalic and atraumatic. Eyes: Extraocular Movements: Extraocular movements intact. Pupils: Pupils are equal, round, and reactive to light. Cardiovascular: Rate and Rhythm: Normal rate and regular rhythm. Pulmonary: Effort: Pulmonary effort is normal. Breath sounds: Normal breath sounds. Abdominal: General: Abdomen is flat. There is no distension. Palpations: Abdomen is soft. Tenderness: There is no abdominal tenderness. Comments: PEG tube without surrounding drainage or erythema Musculoskeletal: Right lower leg: No edema. Left lower leg: No edema. Skin: General: Skin is warm and dry. Capillary Refill: Capillary refill takes less than 2 seconds. Neurological: General: No focal deficit present. Mental Status: She is alert and oriented to person, place, and time. Psychiatric: Mood and Affect: Mood normal. Behavior: Behavior normal. Intake/Output Summary (Last 24 hours) at 06/22/2025 0136 Last data filed at 06/21/2025 1445 Gross per 24 hour Intake -- Output 1650 ml Net -1650 ml Labs: Results from last 72 hours Lab Units 06/21/25164406/19/251931 SODIUM mmol/L 135* 135* POTASSIUM mmol/L 4.2 4.5 CHLORIDE mmol/L 97* 101 CO2 mmol/L 34* 30 BUN mg/dL 10 11 CREATININE mg/dL 0.55 0.56 GLUCOSE mg/dL 112* 104* CALCIUM mg/dL 8.2* 8.4* ANION GAP mmol/L 8* 9* EGFR mL/min/1.73m*2 >90 >90 Results from last 72 hours Lab Units 06/21/25164406/19/251931 WBC AUTO x10*3/uL 8.0 15.1* HEMOGLOBIN g/dL 8.9* 9.4* HEMATOCRIT % 28.2* 29.1* PLATELETS AUTO x10*3/uL 212 260 NEUTROS PCT AUTO % -- 80.3 LYMPHS PCT AUTO % -- 9.5 MONOS PCT AUTO % -- 6.1 EOS PCT AUTO % -- 2.3 Results from last 72 hours Lab Units 06/19/252036 POCT PH, ARTERIAL pH 7.44* POCT PCO2, ARTERIAL mm Hg 43* POCT PO2, ARTERIAL mm Hg 63* POCT SO2, ARTERIAL % 94 Micro/ID: Lab Results Component Value Date URINECULTURE 20,000 - 80,000 CFU/mL Escherichia coli (A) 06/20/2025 URINECULTURE (A) 06/20/2025 20,000 - 80,000 CFU/mL Klebsiella pneumoniae/variicola BLOODCULT No growth at 4 days - FINAL REPORT 06/05/2025 Summary of [facility] Results As per HPI Assessment and Plan Assessment: Vj Myers is a 55 y.o. year old female patient with history of SCC of the supraglottic region (2007, s/p chemo/rads and laryngectomy with flap/TEF creation for phonation; current stoma from prior tracheostomy site), alcohol use disorder (reportedly drinks >1 pint of liquor daily), former smoker, hypothyroidism, GERD, HTN admitted to the MICU on 06/22/25 from [facility] with acute on chronic hypoxic respiratory failure (on 2L O2 bl) requiring ventimask and need for thoracic surgery evaluation given recent discharge from [facility] 06/17 after esophageal stent placement and tracheostomy tube decannulation 06/13 with thoracic surgery (Dr. Thomas). Patient endorses recent emesis and new dry cough, which may represent aspiration or viral PNA that could have led to acute respiratory decompensation, however no consolidations seen on CXR, no fevers or leukocytosis so will not tx for pna at this time. Patient also with elevated BNP at OSH to 317 and significant moderate blt pleural effusions on 06/10 CT which may represent component of ADHF, no recent TTE although NM stress test in 2021 reports pEF. Also with current ecoli/klebsiella UTI, endorsing dysuria on admit, will start CTX. Plan: NEUROLOGY/PSYCH: Dx: AUD Alcohol negative at OSH, last drink 2 weeks ago Management: no indication for CIWA at this time Hold home disulfiram, appears patient was not taking C/w thiamine and folate Dx: MDD c/w home sertraline Dx: history of multiple sclerosis(?) MRI in 2021 IMPRESSION: 1. No evidence of acute infarct, intracranial hemorrhage, enhancing interval lesion, intracranial mass effect or midline shift. 2. Nonenhancing periventricular FLAIR hyperintensities with mixed patchy and confluent extension to the subcortical white matter. There is also faint FLAIR hyperintensity of the ramesh. These signals are nonspecific and may be seen in the setting of a demyelinating process such as multiple sclerosis, vasculitis, and small vessel ischemic change. 3. Right-sided mastoid effusion. Per 2021 neurology note incidental discovery of white matter lesions on an MRI of the brain. Her history is not suggestive of MS. Her examination is unremarkable. Her MRI is most characteristic of small vessel ischemia, explainable by her history of smoking, chemoradiation, hypertension, and dyslipidemia. Plan: does not appear actively taking meds for this She was supposed to get a follow up MRI in 1 year but does not appear this happened Can follow up op neurology as needed CARDIOVASCULAR: Dx: HTN, HLD Dx: c/f CHF BNP 317 at OSH, (was wnl at December) patient provided IV lasix 40mg for generalized edema Takes lasix 20mg daily op 06/10/25 with moderate blt pleural effusions and atelectasis No recent TTE NM stress test in 2021 for atypical CP with normal myocardial perfusion, EF 62% Management: [place] [facility] C/w home coreg 6.25 bid C/w home atorvastatin 20mg Consider additional diuresis based on admit pocus PULMONARY: Dx: acute on chronic hypoxic respiratory failure (on 2L O2 bl), c/f aspiration vs viral pna Dx: SCC of the supraglottic region (2007, s/p chemo/rads and laryngectomy with flap/TEF creation for phonation Dx: former smoker Dx: recent esophageal stent placement and tracheostomy tube decannulation 06/12 Bronchoscopy performed, mucous seen and suctioned, no food visualized in the airway. Prior bronchoscopy with copious amounts of food and secretions 06/07 Management: Consider consult thoracic surgery +/- ENT in the AM, was transferred to [facility] for this reason, however do not believe surgical issue is driving current hypoxia C/w supportive O2 prn Duonebs Infectious workup: RVP, procal, sputum cx, [facility], admit CXR Patient without fever or leukocytosis, most recent CXR without consolidations, will not treat PNA at this time Arrange for outpatient PFTs RENAL/GENITOURINARY: Dx: Ecoli/Klebsiella UTI Grew ecoli and klebsiella pneumoniae at OSH Management: follow ucx susceptibilities Start CTX GASTROENTEROLOGY: Dx: s/p PEG Dx: s/p esophageal stent placement Dx: GERD Dx: fatty liver infiltration iso chronic alcohol use, mild AST elevation Management: Keep NPO/ do not initiate TF until possible surgical assessment C/w home ppi C/w home colace ENDOCRINOLOGY: Dx: hypothyroidism 06/15 TSH 27.38, T4 1.12 Management: C/w home synthyroid 137 mcg C/w home liothyronine 5mcg HEMATOLOGY: Dx: Macrocytic anemia iso chronic alcohol use and fatty liver infiltration Bl hgb ~8 B12 1069, folate 8 Management: C/w home folic acid Continue to trend CBC INFECTIOUS DISEASE: Dx: UTI as above in renal ICU Check List FEN Fluids: prn Electrolytes: prn Nutrition: npo pending surgery Prophylaxis: DVT ppx: SCDs, no chemical ppx pending surigal eval GI ppx: ppi Bowel care: colace Hardware: Gastrostomy/Enterostomy Gastrostomy 20 Fr. LUQ (Active) Placement Date/Time: 06/12/25 1344 Placed by: William MERINO Hand Hygiene Completed: Yes Type: Gastrostomy Tube Size (Fr.): 20 Fr. Location: LUQ Number of days: 9 External Urinary Catheter Female (Active) Placement Date/Time: 06/19/251949 Hand Hygiene Completed: Yes External Catheter Type: Female Number of days: 2 Social: Code: Full Code HPOA: Karin Murdock (sister) [phone] Disposition: ICU for now, although no present ICU indications Niki Freitas MD 06/22/25 at 1:36 AM Disclaimer: Documentation completed with the information available at the time of input. The times in the chart may not be reflective of actual patient care times, interventions, or procedures. Documentation occurs after the physical care of the patient. [1] [2] [3] Cosigned by Ellis Guerrero MD at 06/22/2025 4:53 AM EDT Associated attestation - Ellis Guerrero MD - 06/22/2025 4:53 AM EDT Please see my progress note from the same calendar day for the attestation. Ellis Guerrero MD Staff Physician - Interventional Pulmonology 4:53 AM 06/22/25 [facility] Work Phone: 06-22-2025 History and physical note Medical Intensive Care - History and Physical Subjective Vj Myers is a 55 y.o. year old female patient admitted on (Not on file) with following ICU needs: AHRF, surgical evaluation iso recent tracheostomy tube removal/ stent placement HPI: 55 y.o. female with history of SCC of the supraglottic region (2007, s/p chemo/rads and laryngectomy with flap/TEF creation for phonation; current stoma from prior tracheostomy site), alcohol use disorder (reportedly drinks >1 pint of liquor daily), former smoker, chronic hypoxic respiratory failure (on 2L O2 at baseline), hypothyroidism, GERD, HTN, HLD presenting from [facility] from SNF with acute on chronic hypoxic respiratory failure requiring ventimask. She was recently discharged from [facility] 06/17 after esophageal stent placement and tracheostomy tube decannulation 06/13 with thoracic surgery (Dr. Thomas) . During this hospitalization she was found septic on arrival due to aspiration pna vs pneumonitis 2/2 remote surgical TEF. By discharge she was oxygenating well on trach collar with fio2 of 44%. She presented [facility] from [facility] with hypoxia 80%s on 2L NC, was placed on NRB at 10lpm over stoma by EMS. By the time she was admitted she was weaned down to 5L trach mask and satting 100%. Was given IV lasix 40mg for generalized edema, Ucx growing ecoli and klebsiella pneumoniae but reportedly patient asymptomatic so abx were not started. Most recent labs at [facility]: Na 135, K 4.2, Cl 97, Bicarb 34, BUN 10, Cr 0.55 Alk phos 243, ALT 11, AST 42, Tbili 0.5, Mg 1.44 WBC 8, Hgb 8.9, plt 212 Alcohol <10 BNP 317 CXR 06/19 IMPRESSION: 1. Question trace bilateral pleural effusions. Upon arrival to [facility], patient states she is doing so-so. VS stable, Af, HR 80, R 21, 103/76. She is on 11L O2. Cannot speak but is coherent and mouths words. Denies CP or SOB, reports emesis 2 days ago but not since, denies diarrhea. Endorses new dry cough, denies sick contacts. Has some soreness around PEG site but no drainage. Did endorse some dysuria and burning with urination. Denies throat pain. Meds Home medications: Current Outpatient Medications Medication Instructions acetaminophen (TYLENOL) 650 mg, oral, Every 4 hours PRN atorvastatin (Lipitor) 20 mg tablet 1 tablet, g-tube, Nightly carvedilol (COREG) 6.25 mg, oral, 2 times daily docusate sodium (COLACE) 100 mg, g-tube, 2 times daily docusate sodium (COLACE) 100 mg, oral, Daily, Give via G-tube folic acid (FOLVITE) 1 mg, g-tube, Daily furosemide (LASIX) 20 mg, g-tube, Daily, For 5 days insulin lispro 0-5 Units, subcutaneous, Every 4 hours, Take as directed per insulin instructions. ipratropium-albuteroL (Duo-Neb) 0.5-2.5 mg/3 mL nebulizer solution 3 mL, nebulization, 4 times daily levothyroxine (SYNTHROID, LEVOXYL) 137 mcg, oral, Daily levothyroxine (SYNTHROID, LEVOXYL) 137 mcg, g-tube, Daily liothyronine (CYTOMEL) 5 mcg, oral, Daily liothyronine (CYTOMEL) 5 mcg, g-tube, Daily metoclopramide (REGLAN) 10 mg, intravenous, Every 8 hours multivitamin with minerals tablet 1 tablet, oral, Daily omeprazole (PRILOSEC) 40 mg, oral, Daily ondansetron (ZOFRAN) 4 mg, Every 8 hours PRN oxyCODONE (ROXICODONE) 5 mg, g-tube, Every 6 hours PRN oxygen (O2) gas therapy 1 Dose, inhalation, Every 24 hours pantoprazole (PROTONIX) 40 mg, oral, Daily sertraline (ZOLOFT) 50 mg, oral, Daily sertraline (ZOLOFT) 50 mg, g-tube, Daily thiamine (VITAMIN B-1) 100 mg, oral, Daily Inpatient medications: Scheduled medications Scheduled Medications[1] Continuous medications Continuous Medications[2] PRN medications PRN Medications[3] Objective BP 103/76 Pulse 80 Temp 36.3 C (97.3 F) (Temporal) Resp 21 Ht 1.6 m (5' 3) Wt 88.6 kg (195 lb 5.2 oz) SpO2 100% BMI 34.60 kg/m Physical Exam Constitutional: General: She is not in acute distress. HENT: Head: Normocephalic and atraumatic. Eyes: Extraocular Movements: Extraocular movements intact. Pupils: Pupils are equal, round, and reactive to light. Cardiovascular: Rate and Rhythm: Normal rate and regular rhythm. Pulmonary: Effort: Pulmonary effort is normal. Breath sounds: Normal breath sounds. Abdominal: General: Abdomen is flat. There is no distension. Palpations: Abdomen is soft. Tenderness: There is no abdominal tenderness. Comments: PEG tube without surrounding drainage or erythema Musculoskeletal: Right lower leg: No edema. Left lower leg: No edema. Skin: General: Skin is warm and dry. Capillary Refill: Capillary refill takes less than 2 seconds. Neurological: General: No focal deficit present. Mental Status: She is alert and oriented to person, place, and time. Psychiatric: Mood and Affect: Mood normal. Behavior: Behavior normal. Intake/Output Summary (Last 24 hours) at 06/22/2025 0136 Last data filed at 06/21/2025 1445 Gross per 24 hour Intake -- Output 1650 ml Net -1650 ml Labs: Results from last 72 hours Lab Units 06/21/25 1645 06/19/25 1932 SODIUM mmol/L 135* 135* POTASSIUM mmol/L 4.2 4.5 CHLORIDE mmol/L 97* 101 CO2 mmol/L 34* 30 BUN mg/dL 10 11 CREATININE mg/dL 0.55 0.56 GLUCOSE mg/dL 112* 104* CALCIUM mg/dL 8.2* 8.4* ANION GAP mmol/L 8* 9* EGFR mL/min/1.73m*2 >90 >90 Results from last 72 hours Lab Units 06/21/25 1645 07/31/25 1932 WBC AUTO x10*3/uL 8.0 15.1* HEMOGLOBIN g/dL 8.9* 9.4* HEMATOCRIT % 28.2* 29.1* PLATELETS AUTO x10*3/uL 212 260 NEUTROS PCT AUTO % -- 80.3 LYMPHS PCT AUTO % -- 9.5 MONOS PCT AUTO % -- 6.1 EOS PCT AUTO % -- 2.3 Results from last 72 hours Lab Units 06/19/252036 POCT PH, ARTERIAL pH 7.44* POCT PCO2, ARTERIAL mm Hg 43* POCT PO2, ARTERIAL mm Hg 63* POCT SO2, ARTERIAL % 94 Micro/ID: Lab Results Component Value Date URINECULTURE 20,000 - 80,000 CFU/mL Escherichia coli (A) 06/20/2025 URINECULTURE (A) 06/20/2025 20,000 - 80,000 CFU/mL Klebsiella pneumoniae/variicola BLOODCULT No growth at 4 days - FINAL REPORT 06/05/2025 Summary of [facility] Results As per HPI Assessment and Plan Assessment: Vj Myers is a 55 y.o. year old female patient with history of SCC of the supraglottic region (2007, s/p chemo/rads and laryngectomy with flap/TEF creation for phonation; current stoma from prior tracheostomy site), alcohol use disorder (reportedly drinks >1 pint of liquor daily), former smoker, hypothyroidism, GERD, HTN admitted to the MICU on 06/22/25 from [facility] with acute on chronic hypoxic respiratory failure (on 2L O2 bl) requiring ventimask and need for thoracic surgery evaluation given recent discharge from [facility] 06/17 after esophageal stent placement and tracheostomy tube decannulation 06/13 with thoracic surgery (Dr. Thomas). Patient endorses recent emesis and new dry cough, which may represent aspiration or viral PNA that could have led to acute respiratory decompensation, however no consolidations seen on CXR, no fevers or leukocytosis so will not tx for pna at this time. Patient also with elevated BNP at OSH to 317 and significant moderate blt pleural effusions on 06/10 CT which may represent component of ADHF, no recent TTE although NM stress test in 2021 reports pEF. Also with current ecoli/klebsiella UTI, endorsing dysuria on admit, will start CTX. Plan: NEUROLOGY/PSYCH: Dx: AUD Alcohol negative at OSH, last drink 2 weeks ago Management: no indication for CIWA at this time Hold home disulfiram, appears patient was not taking C/w thiamine and folate Dx: MDD c/w home sertraline Dx: history of multiple sclerosis(?) MRI in 2021 IMPRESSION: 1. No evidence of acute infarct, intracranial hemorrhage, enhancing interval lesion, intracranial mass effect or midline shift. 2. Nonenhancing periventricular FLAIR hyperintensities with mixed patchy and confluent extension to the subcortical white matter. There is also faint FLAIR hyperintensity of the ramesh. These signals are nonspecific and may be seen in the setting of a demyelinating process such as multiple sclerosis, vasculitis, and small vessel ischemic change. 3. Right-sided mastoid effusion. Per 2021 neurology note incidental discovery of white matter lesions on an MRI of the brain. Her history is not suggestive of MS. Her examination is unremarkable. Her MRI is most characteristic of small vessel ischemia, explainable by her history of smoking, chemoradiation, hypertension, and dyslipidemia. Plan: does not appear actively taking meds for this She was supposed to get a follow up MRI in 1 year but does not appear this happened Can follow up op neurology as needed CARDIOVASCULAR: Dx: HTN, HLD Dx: c/f CHF BNP 317 at OSH, (was wnl at December) patient provided IV lasix 40mg for generalized edema Takes lasix 20mg daily op 06/10/25 with moderate blt pleural effusions and atelectasis No recent TTE NM stress test in 2021 for atypical CP with normal myocardial perfusion, EF 62% Management: T[place] at [facility] C/w home coreg 6.25 bid C/w home atorvastatin 20mg Consider additional diuresis based on admit pocus PULMONARY: Dx: acute on chronic hypoxic respiratory failure (on 2L O2 bl), c/f aspiration vs viral pna Dx: SCC of the supraglottic region (2007, s/p chemo/rads and laryngectomy with flap/TEF creation for phonation Dx: former smoker Dx: recent esophageal stent placement and tracheostomy tube decannulation 06/12 Bronchoscopy performed, mucous seen and suctioned, no food visualized in the airway. Prior bronchoscopy with copious amounts of food and secretions 06/07 Management: Consider consult thoracic surgery +/- ENT in the AM, was transferred to [facility] for this reason, however do not believe surgical issue is driving current hypoxia C/w supportive O2 prn Duonebs Infectious workup: RVP, procal, sputum cx, [facility], admit CXR Patient without fever or leukocytosis, most recent CXR without consolidations, will not treat PNA at this time Arrange for outpatient PFTs RENAL/GENITOURINARY: Dx: Ecoli/Klebsiella UTI Grew ecoli and klebsiella pneumoniae at OSH Management: follow ucx susceptibilities Start CTX GASTROENTEROLOGY: Dx: s/p PEG Dx: s/p esophageal stent placement Dx: GERD Dx: fatty liver infiltration iso chronic alcohol use, mild AST elevation Management: Keep NPO/ do not initiate TF until possible surgical assessment C/w home ppi C/w home colace ENDOCRINOLOGY: Dx: hypothyroidism 06/15 TSH 27.38, T4 1.12 Management: C/w home synthyroid 137 mcg C/w home liothyronine 5mcg HEMATOLOGY: Dx: Macrocytic anemia iso chronic alcohol use and fatty liver infiltration Bl hgb ~8 B12 1069, folate 8 Management: C/w home folic acid Continue to trend CBC INFECTIOUS DISEASE: Dx: UTI as above in renal ICU Check List FEN Fluids: prn Electrolytes: prn Nutrition: npo pending surgery Prophylaxis: DVT ppx: SCDs, no chemical ppx pending surigal eval GI ppx: ppi Bowel care: colace Hardware: Gastrostomy/Enterostomy Gastrostomy 20 Fr. LUQ (Active) Placement Date/Time: 06/12/25 1344 Placed by: William MERINO Hand Hygiene Completed: Yes Type: Gastrostomy Tube Size (Fr.): 20 Fr. Location: LUQ Number of days: 9 External Urinary Catheter Female (Active) Placement Date/Time: 06/19/25 1950 Hand Hygiene Completed: Yes External Catheter Type: Female Number of days: 2 Social: Code: Full Code HPOA: Karin Murdock (sister) [phone] Disposition: ICU for now, although no present ICU indications Niki Freitas MD 06/22/25 at 1:36 AM Disclaimer: Documentation completed with the information available at the time of input. The times in the chart may not be reflective of actual patient care times, interventions, or procedures. Documentation occurs after the physical care of the patient. [1] [2] [3] Cosigned by Ellis Guerrero MD at 06/22/2025 4:53 AM EDT Associated attestation - Ellis Guerrero MD - 06/22/2025 4:53 AM EDT Please see my progress note from the same calendar day for the attestation. Ellis Guerrero MD Staff Physician - Interventional Pulmonology 4:53 AM 06/22/25 documented in this encounter [facility] Work Phone: 06-22-2025 Nurse Note Report provided to Jean Carlos RAZO at [facility] Work Phone: 06-21-2025 Plan of care note The patient's goals for the shift include The clinical goals for the shift include increase self care No progress towards goal [facility] 06-21-2025 Miscellaneous Notes The patient's goals for the shift include The clinical goals for the shift include increase self care No progress towards goal Associated Problem(s): Acute on chronic hypoxic respiratory failure Unsure of cause. This could be related to her tracheostomy tube being removed and thus not being able to oxygenate correctly. We will continue trach mask for now. She is maintaining on 40% FiO2 which is what she was discharged on last hospital stay. She is planned to be transferred to [facility] ICU where she had recently had an esophageal stent placed and tracheostomy tube removed. If she remains stable on this oxygen requirement, she may not need to be transferred. Associated Problem(s): Acute on chronic hypoxic respiratory failure Unsure of cause. This could be related to her tracheostomy tube being removed and thus not being able to oxygenate correctly. We will continue trach mask for now. She is planned to be transferred to [facility] ICU where she had recently had an esophageal stent placed and tracheostomy tube removed. She does not appear fluid overloaded based off her chest x-ray. No signs of pneumonia. documented in this encounter [facility] Work Phone: 06-21-2025 History of Present illness Narrative 06/21/25 1617 Discharge Planning Living Arrangements Children;Spouse/significant other Support Systems Children;Spouse/significant other Type of Residence Private residence Number of Stairs to Enter Residence 1 Number of Stairs Within Residence 0 Do you have animals or pets at home? Yes Type of Animals or Pets 1 dog Who is requesting discharge planning? Provider Home or Post Acute Services Post acute facilities (Rehab/SNF/etc) Type of Post Acute Facility Services [facility] Expected Discharge Disposition SNF Does the patient need discharge transport arranged? Yes [facility] [employer] coordination needed? Yes Has discharge transport been arranged? No Financial Resource Strain How hard is it for you to pay for the very basics like food, housing, medical care, and heating? Not very Housing Stability In the last 12 months, was there a time when you were not able to pay the mortgage or rent on time? N In the past 12 months, how many times have you moved where you were living? 0 At any time in the past 12 months, were you homeless or living in a mcc (including now)? N Transportation Needs In the past 12 months, has lack of transportation kept you from medical appointments or from getting medications? yes In the past 12 months, has lack of transportation kept you from meetings, work, or from getting things needed for daily living? Yes Patient Choice Provider Choice list and CMS website (https://medicare.gov/care-compare#se arch) for post-acute Quality and Resource Measure Data were provided and reviewed with: Patient;Family Patient / Family choosing to utilize agency / facility established prior to hospitalization No Stroke Family Assessment Stroke Family Assessment Needed No Intensity of Service Intensity of Service 0-30 min Pt reviewed in care rounds this morning. Pt not medically ready for discharge. EDOD is 24-48 hours, possible transfer to another hospital. DSC sent referral for return to [facility] SW met w/ Pt at bedside. Pt's boyfriend/Pal also present at bedside and Pt gave permission to proceed w/ visit. SW explained the role of care transitions and completed initial assessment. Pt currently placed at [facility] and would like referrals sent to other [facility] facilities including [facility], [facility] and [facility]. Pt is also open to looking at facilities in a broader geographical radius in the area if no other [facility] facility is able to accept. Pt denied financial concerns that would prevent the Pt from maintaining stable housing, obtaining medications, paying utility bills or affording food. Pt confirmed Pt's demographic information is correct per Pt's chart. Prior to discharge from SNF, SNF SW will assist with community resources for transportation and additional care at home if appropriate/safe for Pt to discharge to home. SW to request additional referrals sent per the above preferences indicated by the Pt. Plan is for Pt to discharge to SNF pending acceptance/choice or to return to [facility] and have that facility coordinate transfer to another facility. SW to follow. Vj Myers is a 55 y.o. female on day 1 of admission presenting with Acute on chronic hypoxic respiratory failure. Subjective Patient seen and examined at bedside. Case was discussed with critical care physician, Dr. Gonzales. He believes that is reasonable to keep the patient on trach mask at 40% FiO2 and discharging her on this oxygen requirement as she was discharged on this during her last hospital stay. He is also starting IV Lasix to address generalized edema. Patient's main complaint this morning is having heartburn. Tums have been ordered. Of note, urine culture is growing E. coli and Klebsiella pneumoniae. Urinalysis was not suggestive of active infection with 25 leukocyte esterase and 0 nitrites and the patient denying any urinary symptoms. Will continue monitoring off of antibiotics. Objective Last Recorded Vitals BP 102/85 Pulse 75 Temp 36 C (96.8 F) (Temporal) Resp 15 Wt 92.5 kg (204 lb) SpO2 100% Intake/Output last 3 Shifts: Intake/Output Summary (Last 24 hours) at 06/21/2025 1231 Last data filed at 06/21/2025 1121 Gross per 24 hour Intake 60 ml Output 1200 ml Net -1140 ml Admission Weight Weight: 92.5 kg (204 lb) (06/19/25 1829) Daily Weight 06/19/25 : 92.5 kg (204 lb) Image Results ECG 12 lead Normal sinus rhythm Normal ECG When compared with ECG of 19-JUN-2025 18:06, (unconfirmed) QRS axis Shifted right Criteria for Inferior infarct are no longer Present ST no longer depressed in Inferior leads Nonspecific T wave abnormality has replaced inverted T waves in Lateral leads Physical exam: General: Well appearing HENT: Head: Normocephalic Mouth: Mucous membranes are moist. Neck: Tracheostomy stoma without tube Eyes: Pupils are equal, round, and reactive to light. Cardiovascular: Normal rate and regular rhythm. Normal S1, S2. No murmurs, clicks, gallops. Pulmonary: Clear to auscultation bilaterally. No wheezing, rhonchi, or crackles heard. Abdominal: Bowel sounds are normal. Abdomen is soft, nontender, nondistended. PEG tube in place. Skin: No lesions seen Musculoskeletal: Extremities: Generalized +1 pitting edema in upper and lower extremities. No deformities with no abnormal range of motion Neck supple. Neurological: Mental Status: Patient is alert and oriented X3 CN II-XII intact. No focal neurologic deficits appreciated. Relevant Results Assessment/Plan This patient currently has cardiac telemetry ordered; if you would like to modify or discontinue the telemetry order, click here to go to the orders activity to modify/discontinue the order. Assessment & Plan Acute on chronic hypoxic respiratory failure Unsure of cause. This could be related to her tracheostomy tube being removed and thus not being able to oxygenate correctly. We will continue trach mask for now. She is maintaining on 40% FiO2 which is what she was discharged on last hospital stay. She is planned to be transferred to [facility] ICU where she had recently had an esophageal stent placed and tracheostomy tube removed. If she remains stable on this oxygen requirement, she may not need to be transferred. 2. Normocytic anemia: Hemoglobin appears to be at baseline 3. History of throat cancer: Status post laryngectomy with tracheostomy. 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 4. Alcohol abuse: Patient has been in the healthcare system for the last 2 weeks. No reason to continue CIWA protocol. 5. Medical noncompliance 6. Tobacco abuse 7. Tracheoesophageal fistula: The patient was recently seen at [facility] for this at the end of May and had an esophageal stent placed. She will need to continue following with thoracic surgery for this as well as to address any new hypoxia that is occurring now that her tracheostomy tube has been removed. 8. Elevated liver enzymes: Related to alcohol abuse 9. Leukocytosis: No signs of infection at this time. Will repeat CBC in the morning. 10. Edema: Nephrology is started the patient on IV Lasix 40 mg daily. Will repeat BMP and magnesium in the morning. Transition back to oral Lasix once euvolemic. DVT ppx: Subcutaneous heparin Diet: N.p.o. with tube feeds Disposition: Start IV Lasix. Monitor urine output and edema. Repeat BMP and magnesium in the morning. If she remains stable, we will consider discharge back to snf facility at [facility]. Patient did express that she would prefer not to return there. We will request social work to discuss with her her options. He will likely be easiest for her to return to [facility] and transition to a new chcf if she truly does not want to stay there. Talib Maza DO Emergency Medicine Transition of Care Note. I received Vj Myers in signout from Dr. Lin. Please see the previous ED provider note for all HPI, PE and MDM up to the time of signout at 7 AM. This is in addition to the primary record. In brief Vj Myers is an 55 y.o. female presenting for Chief Complaint Patient presents with Illness Pt to ER by EMS from [facility] with concern for hypoxia today. Was found in the mid 80's SpO2 by nurse at [facility]. Normally wears 2 lpm O2 via NC. O2 was increased without resolution of hypoxia. Pt had trach removed and has stoma in place. EMS placed NRB at 10 lpm over stoma which improved hypoxia. Pt writes on note pad that we are not to suction her stoma. Possible concern for aspiration PNA. Is continuous tube feed per [facility]CF which was stopped earlier today. At the time of signout we were awaiting: Final disposition Diagnoses as of 06/20/25 1448 Acute respiratory failure with hypoxia Acute on chronic hypoxic respiratory failure Medical Decision Making Patient has been awaiting a bed at [facility] for near 24 hours at this point. We were notified by the transfer center that the patient will likely not be getting a bed today. Because of this I spoke to our hospitalist who agrees to admit the patient to our MICU until a bed becomes available at [facility]. Patient was medicated for pain and in agreement with this plan. Final diagnoses: [J96.01] Acute respiratory failure with hypoxia [J96.21] Acute on chronic hypoxic respiratory failure Procedure Procedures Eliazar Nolan DO documented in this encounter [facility] Work Phone: 06-21-2025 Evaluation + Plan note Associated Problem(s): Acute on chronic hypoxic respiratory failure Unsure of cause. This could be related to her tracheostomy tube being removed and thus not being able to oxygenate correctly. We will continue trach mask for now. She is maintaining on 40% FiO2 which is what she was discharged on last hospital stay. She is planned to be transferred to [facility] ICU where she had recently had an esophageal stent placed and tracheostomy tube removed. If she remains stable on this oxygen requirement, she may not need to be transferred. [facility] Work Phone: 06-21-2025 Consult note Associated Order (s): IP CONSULT TO NEPHROLOGY Reason For Consult Hypoxia History Of Present Illness Vj Myers is a 55 y.o. female presenting with hypoxia. She presented to the emergency room from a local nursing facility secondary to hypoxia. She recently had an esophageal stent placed. Today when I saw her she is resting comfortably in bed She is currently on a 40% Ventimask over her stoma. 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 Surgical History She has a past surgical history that includes Other surgical history (10/26/2021); Other surgical history (10/26/2021); Other surgical history (10/26/2021); Other surgical history (10/26/2021); Other surgical history (11/09/2021); Hysterectomy; IR injection epidural steroid (N/A, 04/05/2024); Flexible bronchoscopy w/ stent placement (06/12/2025); and Gastrostomy tube placement (06/12/2025). Social History She reports that she has quit smoking. Her smoking use included cigarettes. She has never used smokeless tobacco. She reports current alcohol use of about 20.0 - 42.0 standard drinks of alcohol per week. She reports that she does not use drugs. Family History Family History[1] Allergies Iodinated contrast media, Morphine, Adhesive, and Latex Review of Systems A full 10 point review of systems was obtained and is negative except HPI as above Physical Exam Physical Exam Vitals reviewed. Constitutional: Appearance: She is ill-appearing. HENT: Head: Normocephalic and atraumatic. Nose: Nose normal. Mouth/Throat: Mouth: Mucous membranes are moist. Pharynx: Oropharynx is clear. Eyes: Extraocular Movements: Extraocular movements intact. Pupils: Pupils are equal, round, and reactive to light. Neck: Comments: Stoma present with Ventimask over it Cardiovascular: Rate and Rhythm: Normal rate and regular rhythm. Pulmonary: Effort: Pulmonary effort is normal. Breath sounds: Normal breath sounds. Abdominal: General: Abdomen is flat. Palpations: Abdomen is soft. Comments: PEG tube present Musculoskeletal: General: Swelling present. Normal range of motion. Cervical back: Normal range of motion and neck supple. Right lower leg: Edema present. Left lower leg: Edema present. Skin: General: Skin is warm and dry. Neurological: General: No focal deficit present. Mental Status: She is alert. Mental status is at baseline. Psychiatric: Mood and Affect: Mood normal. 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 I would continue her supportive measures from that standpoint as she is on She is pretty volume overloaded Also has slight pleural effusions I will change her Lasix to 40 mg IV daily Once she has diuresed some I would recommend continuing her on oral Lasix From my standpoint I do not see any other interventions currently that need to be undertaken She needs to continue her enteral therapy to build up her nutritional status She will need to continue her physical therapy and from my standpoint can be readied for discharge back to nursing facility for ongoing care at that place Thanks for the consult Please call with any further issues or needs I spent 45 minutes in the professional and overall care of this patient. Anne Gonzales DO [1] Family History Problem Relation Name Age of Onset Lung cancer Mother Heart failure Father Colon cancer Sister Diabetes Brother Heart failure Other Grandmother [facility] Work Phone: 06-21-2025 Consult note Associated Order (s): IP CONSULT TO NEPHROLOGY Reason For Consult Hypoxia History Of Present Illness Vj Myers is a 55 y.o. female presenting with hypoxia. She presented to the emergency room from a local nursing facility secondary to hypoxia. She recently had an esophageal stent placed. Today when I saw her she is resting comfortably in bed She is currently on a 40% Ventimask over her stoma. 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 Surgical History She has a past surgical history that includes Other surgical history (10/26/2021); Other surgical history (10/26/2021); Other surgical history (10/26/2021); Other surgical history (10/26/2021); Other surgical history (11/09/2021); Hysterectomy; IR injection epidural steroid (N/A, 04/05/2024); Flexible bronchoscopy w/ stent placement (06/12/2025); and Gastrostomy tube placement (06/12/2025). Social History She reports that she has quit smoking. Her smoking use included cigarettes. She has never used smokeless tobacco. She reports current alcohol use of about 20.0 - 42.0 standard drinks of alcohol per week. She reports that she does not use drugs. Family History Family History[1] Allergies Iodinated contrast media, Morphine, Adhesive, and Latex Review of Systems A full 10 point review of systems was obtained and is negative except HPI as above Physical Exam Physical Exam Vitals reviewed. Constitutional: Appearance: She is ill-appearing. HENT: Head: Normocephalic and atraumatic. Nose: Nose normal. Mouth/Throat: Mouth: Mucous membranes are moist. Pharynx: Oropharynx is clear. Eyes: Extraocular Movements: Extraocular movements intact. Pupils: Pupils are equal, round, and reactive to light. Neck: Comments: Stoma present with Ventimask over it Cardiovascular: Rate and Rhythm: Normal rate and regular rhythm. Pulmonary: Effort: Pulmonary effort is normal. Breath sounds: Normal breath sounds. Abdominal: General: Abdomen is flat. Palpations: Abdomen is soft. Comments: PEG tube present Musculoskeletal: General: Swelling present. Normal range of motion. Cervical back: Normal range of motion and neck supple. Right lower leg: Edema present. Left lower leg: Edema present. Skin: General: Skin is warm and dry. Neurological: General: No focal deficit present. Mental Status: She is alert. Mental status is at baseline. Psychiatric: Mood and Affect: Mood normal. 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 I would continue her supportive measures from that standpoint as she is on She is pretty volume overloaded Also has slight pleural effusions I will change her Lasix to 40 mg IV daily Once she has diuresed some I would recommend continuing her on oral Lasix From my standpoint I do not see any other interventions currently that need to be undertaken She needs to continue her enteral therapy to build up her nutritional status She will need to continue her physical therapy and from my standpoint can be readied for discharge back to nursing facility for ongoing care at that place Thanks for the consult Please call with any further issues or needs I spent 45 minutes in the professional and overall care of this patient. Anne Gonzalse DO [1] Family History Problem Relation Name Age of Onset Lung cancer Mother Heart failure Father Colon cancer Sister Diabetes Brother Heart failure Other Grandmother documented in this encounter [facility] Work Phone: 06-20-2025 Evaluation + Plan note Associated Problem(s): Acute on chronic hypoxic respiratory failure Unsure of cause. This could be related to her tracheostomy tube being removed and thus not being able to oxygenate correctly. We will continue trach mask for now. She is planned to be transferred to [facility] ICU where she had recently had an esophageal stent placed and tracheostomy tube removed. She does not appear fluid overloaded based off her chest x-ray. No signs of pneumonia. [facility] Work Phone: 06-20-2025 History and physical note History Of Present Illness Vj Myers is a 55 y.o. female presenting with hypoxia from [facility]. She was recently discharged from [facility] after having an esophageal stent placed. Her tracheostomy tube was removed afterwards supposedly to avoid erosion with the esophageal stent present. She was sent to our hospital due to hypoxia. She was weaned down to 2 L at the chcf and required a Ventimask. When I evaluated the patient, she was on 10 L trach mask satting at 100% with the trach mask on her chin. I was able to wean her down to 5 L trach continuing to sat 100%. She seems hesitant to go back up to [place] to have this addressed. She was initially planned to be transferred to [facility] ICU from the emergency department but with her staying in the ED for over 24 hours, it was decided to admit to our ICU while she awaits a bed. 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 Surgical History She has a past surgical history that includes Other surgical history (10/26/2021); Other surgical history (10/26/2021); Other surgical history (10/26/2021); Other surgical history (10/26/2021); Other surgical history (11/09/2021); Hysterectomy; IR injection epidural steroid (N/A, 04/05/2024); Flexible bronchoscopy w/ stent placement (06/12/2025); and Gastrostomy tube placement (06/12/2025). Social History She reports that she has quit smoking. Her smoking use included cigarettes. She has never used smokeless tobacco. She reports current alcohol use of about 20.0 - 42.0 standard drinks of alcohol per week. She reports that she does not use drugs. Family History Family History[1] Allergies Iodinated contrast media, Morphine, Adhesive, and Latex Physical Exam General: Well appearing HENT: Head: Normocephalic Mouth: Mucous membranes are moist. Neck: Tracheostomy without tube Eyes: Pupils are equal, round, and reactive to light. Cardiovascular: Normal rate and regular rhythm. Normal S1, S2. No murmurs, clicks, gallops. Pulmonary: Clear to auscultation bilaterally. No wheezing, rhonchi, or crackles heard. Abdominal: Bowel sounds are normal. Abdomen is soft, nontender, nondistended. PEG tube in place. Skin: No lesions seen Musculoskeletal: Extremities: No edema present. No deformities with no abnormal range of motion Neck supple. Neurological: Mental Status: Patient is alert and oriented X3 CN II-XII intact. No focal neurologic deficits appreciated. Last Recorded Vitals BP (!) 173/116 Pulse 89 Temp 37.1 C (98.8 F) (Oral) Resp 18 Wt 92.5 kg (204 lb) SpO2 94% Relevant Results Assessment/Plan Assessment & Plan Acute on chronic hypoxic respiratory failure Unsure of cause. This could be related to her tracheostomy tube being removed and thus not being able to oxygenate correctly. We will continue trach mask for now. She is planned to be transferred to [facility] ICU where she had recently had an esophageal stent placed and tracheostomy tube removed. She does not appear fluid overloaded based off her chest x-ray. No signs of pneumonia. 2. Normocytic anemia: Hemoglobin appears to be at baseline 3. History of throat cancer: Status post laryngectomy with tracheostomy. She had a new tube placed in March and May but then was removed after an esophageal stent was placed to treat her tracheoesophageal fistula. 4. Alcohol abuse: Patient has been in the healthcare system for the last 2 weeks. No reason to continue CIWA protocol. 5. Medical noncompliance 6. Tobacco abuse 7. Tracheoesophageal fistula: The patient was recently seen at [facility] for this at the end of May and had an esophageal stent placed. She will need to continue following with thoracic surgery for this as well as to address any new hypoxia that is occurring now that her tracheostomy tube has been removed. 8. Elevated liver enzymes: Related to alcohol abuse 9. Leukocytosis: No signs of infection at this time. Will repeat CBC in the morning. DVT ppx: Subcutaneous heparin Diet: NPO. Tube feeds Talib Maza DO [1] Family History Problem Relation Name Age of Onset Lung cancer Mother Heart failure Father Colon cancer Sister Diabetes Brother Heart failure Other Grandmother [facility] Work Phone: 06-20-2025 History and physical note History Of Present Illness Vj Myers is a 55 y.o. female presenting with hypoxia from [facility]. She was recently discharged from [facility] after having an esophageal stent placed. Her tracheostomy tube was removed afterwards supposedly to avoid erosion with the esophageal stent present. She was sent to our hospital due to hypoxia. She was weaned down to 2 L at the [facility] and required a Ventimask. When I evaluated the patient, she was on 10 L trach mask satting at 100% with the trach mask on her chin. I was able to wean her down to 5 L trach continuing to sat 100%. She seems hesitant to go back up to [place] to have this addressed. She was initially planned to be transferred to [facility] ICU from the emergency department but with her staying in the ED for over 24 hours, it was decided to admit to our ICU while she awaits a bed. 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 Surgical History She has a past surgical history that includes Other surgical history (10/26/2021); Other surgical history (10/26/2021); Other surgical history (10/26/2021); Other surgical history (10/26/2021); Other surgical history (11/09/2021); Hysterectomy; IR injection epidural steroid (N/A, 04/05/2024); Flexible bronchoscopy w/ stent placement (06/12/2025); and Gastrostomy tube placement (06/12/2025). Social History She reports that she has quit smoking. Her smoking use included cigarettes. She has never used smokeless tobacco. She reports current alcohol use of about 20.0 - 42.0 standard drinks of alcohol per week. She reports that she does not use drugs. Family History Family History[1] Allergies Iodinated contrast media, Morphine, Adhesive, and Latex Physical Exam General: Well appearing HENT: Head: Normocephalic Mouth: Mucous membranes are moist. Neck: Tracheostomy without tube Eyes: Pupils are equal, round, and reactive to light. Cardiovascular: Normal rate and regular rhythm. Normal S1, S2. No murmurs, clicks, gallops. Pulmonary: Clear to auscultation bilaterally. No wheezing, rhonchi, or crackles heard. Abdominal: Bowel sounds are normal. Abdomen is soft, nontender, nondistended. PEG tube in place. Skin: No lesions seen Musculoskeletal: Extremities: No edema present. No deformities with no abnormal range of motion Neck supple. Neurological: Mental Status: Patient is alert and oriented X3 CN II-XII intact. No focal neurologic deficits appreciated. Last Recorded Vitals BP (!) 173/116 Pulse 89 Temp 37.1 C (98.8 F) (Oral) Resp 18 Wt 92.5 kg (204 lb) SpO2 94% Relevant Results Assessment/Plan Assessment & Plan Acute on chronic hypoxic respiratory failure Unsure of cause. This could be related to her tracheostomy tube being removed and thus not being able to oxygenate correctly. We will continue trach mask for now. She is planned to be transferred to [facility] ICU where she had recently had an esophageal stent placed and tracheostomy tube removed. She does not appear fluid overloaded based off her chest x-ray. No signs of pneumonia. 2. Normocytic anemia: Hemoglobin appears to be at baseline 3. History of throat cancer: Status post laryngectomy with tracheostomy. She had a new tube placed in March and May but then was removed after an esophageal stent was placed to treat her tracheoesophageal fistula. 4. Alcohol abuse: Patient has been in the healthcare system for the last 2 weeks. No reason to continue CIWA protocol. 5. Medical noncompliance 6. Tobacco abuse 7. Tracheoesophageal fistula: The patient was recently seen at [facility] for this at the end of May and had an esophageal stent placed. She will need to continue following with thoracic surgery for this as well as to address any new hypoxia that is occurring now that her tracheostomy tube has been removed. 8. Elevated liver enzymes: Related to alcohol abuse 9. Leukocytosis: No signs of infection at this time. Will repeat CBC in the morning. DVT ppx: Subcutaneous heparin Diet: NPO. Tube feeds Talib Maza DO [1] Family History Problem Relation Name Age of Onset Lung cancer Mother Heart failure Father Colon cancer Sister Diabetes Brother Heart failure Other Grandmother documented in this encounter [facility] Work Phone: 06-20-2025 Nurse Note Pt arrived in room from ED, transferred to unit bed, monitors attached. Pt has mask over trach with O2. Pt complains of soreness and tenderness in the selma-area, which is intact but very irritated and red; cleansed and covered with a brief change. Pt is alert, but not understandable when she tries to speak. [facility] 06-19-2025 Physician Emergency department Note HPI Chief Complaint Patient presents with Illness Pt to ER by EMS from [facility] with concern for hypoxia today. Was found in the mid 80's SpO2 by nurse at [facility]. Normally wears 2 lpm O2 via NC. O2 was increased without resolution of hypoxia. Pt had trach removed and has stoma in place. EMS placed NRB at 10 lpm over stoma which improved hypoxia. Pt writes on note pad that we are not to suction her stoma. Possible concern for aspiration PNA. Is continuous tube feed per [facility] which was stopped earlier today. Patient presents with complaint of hypoxia. Patient was recently seen and evaluated for a fistula between the esophagus and the trachea. Recently discharged home and sent to nursing facility. senior care noted that patient was hypoxia instead. History provided by: Patient, [facility] and spouse Patient History Medical History[1] Surgical History[2] Family History[3] Social History[4] Physical Exam ED Triage Vitals Temperature Heart Rate Respirations BP 06/19/25 1829 06/19/25 1829 06/19/25 1829 06/19/25 1833 37.1 C (98.8 F) 87 18 (!) 167/108 Pulse Ox Temp Source Heart Rate Source Patient Position 06/19/25 1829 06/19/25 1829 06/19/25 1900 -- 100 % Oral Monitor BP Location FiO2 (%) -- 06/19/25 192 50 % Physical Exam Vitals and nursing note reviewed. Constitutional: General: She is not in acute distress. Appearance: She is obese. She is ill-appearing (Chronically ill-appearing and much older than stated age). She is not toxic-appearing. HENT: Head: Normocephalic. Right Ear: External ear normal. Left Ear: External ear normal. Nose: Nose normal. Mouth/Throat: Lips: No lesions. Mouth: Mucous membranes are moist. Eyes: General: Lids are normal. No scleral icterus. Conjunctiva/sclera: Conjunctivae normal. Pupils: Pupils are equal, round, and reactive to light. Cardiovascular: Rate and Rhythm: Normal rate and regular rhythm. Pulses: Dorsalis pedis pulses are 2+ on the right side and 2+ on the left side. Posterior tibial pulses are 2+ on the right side and 2+ on the left side. Heart sounds: Normal heart sounds. Pulmonary: Effort: Pulmonary effort is normal. Breath sounds: Rales present. Abdominal: General: There is no distension. Palpations: Abdomen is soft. Tenderness: There is no abdominal tenderness. There is no right CVA tenderness, left CVA tenderness or guarding. Musculoskeletal: Right lower le+ Pitting Edema present. Left lower le+ Pitting Edema present. Skin: General: Skin is warm. Capillary Refill: Capillary refill takes less than 2 seconds. Neurological: General: No focal deficit present. Mental Status: She is alert. Cranial Nerves: Cranial nerves 2-12 are intact. No cranial nerve deficit. Psychiatric: Mood and Affect: Affect is flat and angry. Speech: She is noncommunicative. Behavior: Behavior is uncooperative. ED Course & MDM Diagnoses as of 06/19/252154 Acute respiratory failure with hypoxia No data recorded [place] Coma Scale Score: 15 (06/19/25 1901 : Maylin Hall RN) Medical Decision Making Patient presents with complaint of hypoxia. Patient was recently seen and evaluated for a fistula between the esophagus and the trachea. Recently discharged home and sent to nursing facility. senior care noted that patient was hypoxia instead. Ddx: Hernia, CHF, cardiac, pulmonary, metabolic, other Will obtain labs and x-ray Patient placed on a Ventimask with improvement of her oxygenation Patient's ABGs show a pH of 7.44. PCO2 of 43 and a PO2 of 63. Troponin is normal. BNP is 317. CHEM chemistry shows sodium 135, calcium 8.4, alk phos of 308. Alcohol negative. Lactate normal. CBC shows a white count of 15.1. Hemoglobin 9.4. Patient's anemia is chronic without any acute concern. Chest x-ray shows questionable trace bilateral pleural effusions. At this point I feel that patient needs to be admitted as she is unable to be cared for at [facility]. Did speak with the nursing security field supervisor and due to patient's complex medical history as well as her recent stay at [facility] she would benefit from further evaluation at [place]. Transfer order placed. At this time we are still waiting on [facility] to give us a call back. Transition care to provider at the conclusion of my shift. Please see provider note for further description of patient care and disposition Amount and/or Complexity of Data Reviewed Labs: ordered. Decision-making details documented in ED Course. Radiology: ordered and independent interpretation performed. Decision-making details documented in ED Course. ECG/medicine tests: ordered and independent interpretation performed. Decision-making details documented in ED Course. Details: Read by myself and attending showing normal sinus rhythm at a ventricular rate of 86 bpm. Normal axis. No ST segment elevation. 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, oral cavity, and pharynx History of throat cancer Personal history of Methicillin resistant Staphylococcus aureus infection History of methicillin resistant Staphylococcus aureus infection Personal history of other diseases of urinary system 10/26/2021 History of kidney disease [2] Past Surgical History: Procedure Laterality Date FLEXIBLE BRONCHOSCOPY W/ STENT PLACEMENT 06/12/2025 EGD, percutaneous endoscopic gastrostomy tube placement, proximal esophageal stent, bronchoscopy GASTROSTOMY TUBE PLACEMENT 06/12/2025 EGD, percutaneous endoscopic gastrostomy tube placement, proximal esophageal stent, bronchoscopy HYSTERECTOMY IR INJECTION EPIDURAL STEROID N/A 04/05/2024 L4-5 [facility] OTHER SURGICAL HISTORY 10/26/2021 Throat surgery OTHER SURGICAL HISTORY 10/26/2021 section OTHER SURGICAL HISTORY 10/26/2021 Bladder surgery OTHER SURGICAL HISTORY 10/26/2021 Hernia repair OTHER SURGICAL HISTORY 11/09/2021 Intra-articular corticosteroid injection [3] Family History Problem Relation Name Age of Onset Lung cancer Mother Heart failure Father Colon cancer Sister Diabetes Brother Heart failure Other Grandmother [4] Social History Tobacco Use Smoking status: Former Types: Cigarettes Smokeless tobacco: Never Vaping Use Vaping status: Never Used Substance Use Topics Alcohol use: Yes Alcohol/week: 20.0 - 42.0 standard drinks of alcohol Types: 20 - 42 Standard drinks or equivalent per week Comment: Son states patient drinks if she can get her hands on a pint, she will drink 3-4 pints at a time Drug use: Never Beatris Coello PA-C 06/19/252154 Cosigned by Ton Lin DO at 06/20/2025 7:33 AM EDT Associated attestation - Ton Lin DO - 06/20/2025 7:33 AM EDT This patient was seen by the advanced practice provider. I have personally performed a substantive portion of the encounter. I have seen and examined the patient; agree with the workup, evaluation, MDM, management and diagnosis. The care plan has been discussed. I personally saw the patient and made/approved the management plan and take responsibility for the patient management. History: 55-year-old female presents with concern for hypoxemia. 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 Per [facility] patient was having sats into the 80s. Patient does admit to some shortness of breath but otherwise has no complaints at this time and does have difficulty speaking given her esophageal stent. Exam: Patient appears ill and nontoxic. Mildly tachypneic. Pulses equal bilaterally. Bilateral lower extremity pitting edema. MDM: Lab work otherwise unremarkable other than a leukocytosis of 15,000. Chest x-ray shows very small bilateral pleural effusions. Patient requiring 50% Ventimask by trach collar. Case discussed initially by physician real estate executive assistant with [facility] ICU who advised transfer to [facility] ICU given recent procedure performed there. Following case handoff by physician real estate executive assistant to myself I discussed this case with military logistics specialist [facility] Dr. Wells who was willing to accept patient but we did also conference with hospitalist Dr. Tolentino about the possibility of admitting to the medical surgical floor if we are able to wean her to 40% by Ventimask which is what she was discharged on 2 days ago. Patient was weaned to 40% and monitor for approximately 5 hours at this oxygen saturation without difficulty and patient maintaining saturations above 96%. Again discussed with Drs. Wells and Rajan and Dr. Tolentino advised he will conference with me shortly. Dr. Tolentino then called back and advise given the continued high oxygen requirement of 40% he could not except to the floor at [facility]. Patient is currently slated for admission in the medical ICU at [facility] however is stable and social work will be consulted given patient's request for separate snf facility on discharge from the hospital. Stable at time of handoff to incoming physician Dr. Nolan. Diagnosis: 1. Acute on chronic hypoxemic respiratory failure [facility] Work Phone: 06-19-2025 Emergency department Note HPI Chief Complaint Patient presents with Illness Pt to ER by EMS from [facility] with concern for hypoxia today. Was found in the mid 80's SpO2 by nurse at [facility]. Normally wears 2 lpm O2 via NC. O2 was increased without resolution of hypoxia. Pt had trach removed and has stoma in place. EMS placed NRB at 10 lpm over stoma which improved hypoxia. Pt writes on note pad that we are not to suction her stoma. Possible concern for aspiration PNA. Is continuous tube feed per [facility] which was stopped earlier today. Patient presents with complaint of hypoxia. Patient was recently seen and evaluated for a fistula between the esophagus and the trachea. Recently discharged home and sent to nursing facility. senior care noted that patient was hypoxia instead. History provided by: Patient, [facility] and spouse Patient History Medical History[1] Surgical History[2] Family History[3] Social History[4] Physical Exam ED Triage Vitals Temperature Heart Rate Respirations BP 06/19/259 06/19/25 18206/19/25182806/19/25 1833 37.1 C (98.8 F) 87 18 (!) 167/108 Pulse Ox Temp Source Heart Rate Source Patient Position 06/19/25182806/19/25182806/19/25 1900 -- 100 % Oral Monitor BP Location FiO2 (%) -- 06/19/25 1926 50 % Physical Exam Vitals and nursing note reviewed. Constitutional: General: She is not in acute distress. Appearance: She is obese. She is ill-appearing (Chronically ill-appearing and much older than stated age). She is not toxic-appearing. HENT: Head: Normocephalic. Right Ear: External ear normal. Left Ear: External ear normal. Nose: Nose normal. Mouth/Throat: Lips: No lesions. Mouth: Mucous membranes are moist. Eyes: General: Lids are normal. No scleral icterus. Conjunctiva/sclera: Conjunctivae normal. Pupils: Pupils are equal, round, and reactive to light. Cardiovascular: Rate and Rhythm: Normal rate and regular rhythm. Pulses: Dorsalis pedis pulses are 2+ on the right side and 2+ on the left side. Posterior tibial pulses are 2+ on the right side and 2+ on the left side. Heart sounds: Normal heart sounds. Pulmonary: Effort: Pulmonary effort is normal. Breath sounds: Rales present. Abdominal: General: There is no distension. Palpations: Abdomen is soft. Tenderness: There is no abdominal tenderness. There is no right CVA tenderness, left CVA tenderness or guarding. Musculoskeletal: Right lower le+ Pitting Edema present. Left lower le+ Pitting Edema present. Skin: General: Skin is warm. Capillary Refill: Capillary refill takes less than 2 seconds. Neurological: General: No focal deficit present. Mental Status: She is alert. Cranial Nerves: Cranial nerves 2-12 are intact. No cranial nerve deficit. Psychiatric: Mood and Affect: Affect is flat and angry. Speech: She is noncommunicative. Behavior: Behavior is uncooperative. ED Course & MDM Diagnoses as of 06/19/252154 Acute respiratory failure with hypoxia No data recorded [place] Coma Scale Score: 15 (06/19/251900 : Maylin Hall RN) Medical Decision Making Patient presents with complaint of hypoxia. Patient was recently seen and evaluated for a fistula between the esophagus and the trachea. Recently discharged home and sent to nursing facility. senior care noted that patient was hypoxia instead. Ddx: Hernia, CHF, cardiac, pulmonary, metabolic, other Will obtain labs and x-ray Patient placed on a Ventimask with improvement of her oxygenation Patient's ABGs show a pH of 7.44. PCO2 of 43 and a PO2 of 63. Troponin is normal. BNP is 317. CHEM chemistry shows sodium 135, calcium 8.4, alk phos of 308. Alcohol negative. Lactate normal. CBC shows a white count of 15.1. Hemoglobin 9.4. Patient's anemia is chronic without any acute concern. Chest x-ray shows questionable trace bilateral pleural effusions. At this point I feel that patient needs to be admitted as she is unable to be cared for at [facility]. Did speak with the nursing security field supervisor and due to patient's complex medical history as well as her recent stay at [facility] she would benefit from further evaluation at [place]. Transfer order placed. At this time we are still waiting on [facility] to give us a call back. Transition care to provider at the conclusion of my shift. Please see provider note for further description of patient care and disposition Amount and/or Complexity of Data Reviewed Labs: ordered. Decision-making details documented in ED Course. Radiology: ordered and independent interpretation performed. Decision-making details documented in ED Course. ECG/medicine tests: ordered and independent interpretation performed. Decision-making details documented in ED Course. Details: Read by myself and attending showing normal sinus rhythm at a ventricular rate of 86 bpm. Normal axis. No ST segment elevation. 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, oral cavity, and pharynx History of throat cancer Personal history of Methicillin resistant Staphylococcus aureus infection History of methicillin resistant Staphylococcus aureus infection Personal history of other diseases of urinary system 10/26/2021 History of kidney disease [2] Past Surgical History: Procedure Laterality Date FLEXIBLE BRONCHOSCOPY W/ STENT PLACEMENT 06/12/2025 EGD, percutaneous endoscopic gastrostomy tube placement, proximal esophageal stent, bronchoscopy GASTROSTOMY TUBE PLACEMENT 06/12/2025 EGD, percutaneous endoscopic gastrostomy tube placement, proximal esophageal stent, bronchoscopy HYSTERECTOMY IR INJECTION EPIDURAL STEROID N/A 04/05/2024 L4-5 [facility] OTHER SURGICAL HISTORY 10/26/2021 Throat surgery OTHER SURGICAL HISTORY 10/26/2021 section OTHER SURGICAL HISTORY 10/26/2021 Bladder surgery OTHER SURGICAL HISTORY 10/26/2021 Hernia repair OTHER SURGICAL HISTORY 11/09/2021 Intra-articular corticosteroid injection [3] Family History Problem Relation Name Age of Onset Lung cancer Mother Heart failure Father Colon cancer Sister Diabetes Brother Heart failure Other Grandmother [4] Social History Tobacco Use Smoking status: Former Types: Cigarettes Smokeless tobacco: Never Vaping Use Vaping status: Never Used Substance Use Topics Alcohol use: Yes Alcohol/week: 20.0 - 42.0 standard drinks of alcohol Types: 20 - 42 Standard drinks or equivalent per week Comment: Son states patient drinks if she can get her hands on a pint, she will drink 3-4 pints at a time Drug use: Never Beatris Coello PA-C 06/19/252154 Cosigned by Ton Lin DO at 06/20/2025 7:33 AM EDT Associated attestation - Ton Lin DO - 06/20/2025 7:33 AM EDT This patient was seen by the advanced practice provider. I have personally performed a substantive portion of the encounter. I have seen and examined the patient; agree with the workup, evaluation, MDM, management and diagnosis. The care plan has been discussed. I personally saw the patient and made/approved the management plan and take responsibility for the patient management. History: 55-year-old female presents with concern for hypoxemia. 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 Per [facility] patient was having sats into the 80s. Patient does admit to some shortness of breath but otherwise has no complaints at this time and does have difficulty speaking given her esophageal stent. Exam: Patient appears ill and nontoxic. Mildly tachypneic. Pulses equal bilaterally. Bilateral lower extremity pitting edema. MDM: Lab work otherwise unremarkable other than a leukocytosis of 15,000. Chest x-ray shows very small bilateral pleural effusions. Patient requiring 50% Ventimask by trach collar. Case discussed initially by physician real estate executive assistant with [facility] ICU who advised transfer to [facility] ICU given recent procedure performed there. Following case handoff by physician real estate executive assistant to myself I discussed this case with military logistics specialist [facility] Dr. Wells who was willing to accept patient but we did also conference with hospitalist Dr. Tolentino about the possibility of admitting to the medical surgical floor if we are able to wean her to 40% by Ventimask which is what she was discharged on 2 days ago. Patient was weaned to 40% and monitor for approximately 5 hours at this oxygen saturation without difficulty and patient maintaining saturations above 96%. Again discussed with Drs. Wells and Rajan and Dr. Tolentino advised he will conference with me shortly. Dr. Tolentino then called back and advise given the continued high oxygen requirement of 40% he could not except [place] [facility]. Patient is currently slated for admission in the medical ICU at [facility] however is stable and social work will be consulted given patient's request for separate snf facility on discharge from the hospital. Stable at time of handoff to incoming physician Dr. Nolan. Diagnosis: 1. Acute on chronic hypoxemic respiratory failure documented in this encounter [facility] Work Phone: 06-17-2025 Hospital course Narrative Discharge Diagnosis Tracheoesophageal fistula Issues Requiring Follow-Up Routine follow up Dr. Thomas follow up ENT follow up PCP follow up - thyroid labs check in 6 weeks Test Results Pending At Discharge Pending Labs No current pending labs. Hospital Course Vj Myers is a 55 y.o. 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 Was septic on arrival which was ultimately attributed to aspiration pneumonia/pneumonitis secondary to remote surgical TEF. Patient is now s/p EGD w/ esophageal stent placement, PEG tube placement and bronchoscopy 06/12 w/ Dr. Thomas. Patient decannulated 06/13, she is at risk for erosion between her trach tube and her new stent. Patient unable to speak with esophageal stent in place. Was oxygenating well on trach collar through her hospitalization, weaned off to 44% FiO2 via trach collar. Endocrinology consult, final recs: Continue tablet levothyroxine 150 mcg daily via PEG tube while inpatient Keep home liothyronine on hold We recommend holding tube feeds 1 hour before giving levothyroxine and 1 hour after administration of levothyroxine to aid adequate absorption. Plan to repeat TFTs on 06/15/2025 Discharge recommendations: Patient to be discharged on tablet levothyroxine 137 mcg daily, patient educated to hold tube feeds 1 hour before and after levothyroxine administration Patient wants to continue liothyronine at home. Okay to continue tablet liothyronine 5 mcg daily upon discharge Plan to repeat TFTs in 6 weeks upon discharge with PCP. Recommendations communicated to primary team. Please reach out incase you have any questions or concerns. ENT consult, final recs: - Change stomal sponge as needed: The sponge has an adhesive strip that is to be adhered superior to the stoma and gently draped down over top, can be changed by patient, family, or nursing. Patient was educated on usage of sponge. - ENT to arrange follow-up with Dr. Rutherford for small piece of granulation tissue around the stoma - Cleared for discharge from ENT standpoint 06/13 transferred to telemetry floor 06/15 unable to tolerated enteral feeds via PEG - layne residual/emesis, started on Reglan, NPO, IVF's 06/16 changed enteral feeds formula - tolerated tube feed at goal of 35 ml/hr. Patient was deemed stable for discharge and we arranged for SNF. Visit Vitals BP 104/75 Pulse 81 Temp 36 C (96.8 F) Resp 17 Vitals: 06/17/25 0708 Weight: 92.8 kg (204 lb 9.6 oz) Immunization History Administered Date(s) Administered Flu vaccine (IIV4), preservative free *Check age/dose* 10/11/2021, 09/01/2022 Results Results for orders placed or performed during the hospital encounter of 06/12/25 (from the past 24 hours) POCT GLUCOSE Result Value Ref Range POCT Glucose 98 74 - 99 mg/dL POCT GLUCOSE Result Value Ref Range POCT Glucose 97 74 - 99 mg/dL POCT GLUCOSE Result Value Ref Range POCT Glucose 103 (H) 74 - 99 mg/dL POCT GLUCOSE Result Value Ref Range POCT Glucose 110 (H) 74 - 99 mg/dL CBC Result Value Ref Range WBC 5.9 4.4 - 11.3 x10*3/uL nRBC 0.0 0.0 - 0.0 /100 WBCs RBC 2.74 (L) 4.00 - 5.20 x10*6/uL Hemoglobin 8.6 (L) 12.0 - 16.0 g/dL Hematocrit 28.2 (L) 36.0 - 46.0 % MCV 103 (H) 80 - 100 fL MCH 31.4 26.0 - 34.0 pg MCHC 30.5 (L) 32.0 - 36.0 g/dL RDW 17.4 (H) 11.5 - 14.5 % Platelets 143 (L) 150 - 450 x10*3/uL Basic metabolic panel Result Value Ref Range Glucose 93 74 - 99 mg/dL Sodium 140 136 - 145 mmol/L Potassium 3.3 (L) 3.5 - 5.3 mmol/L Chloride 104 98 - 107 mmol/L Bicarbonate 28 21 - 32 mmol/L Anion Gap 11 10 - 20 mmol/L Urea Nitrogen 5 (L) 6 - 23 mg/dL Creatinine 0.60 0.50 - 1.05 mg/dL eGFR >90 >60 mL/min/1.73m*2 Calcium 8.0 (L) 8.6 - 10.6 mg/dL Magnesium Result Value Ref Range Magnesium 1.83 1.60 - 2.40 mg/dL POCT GLUCOSE Result Value Ref Range POCT Glucose 103 (H) 74 - 99 mg/dL XR chest 1 view 06/16/2025 Narrative Interpreted By: Juliette Macias, STUDY: XR CHEST 1 VIEW; 06/16/2025 2:51 am INDICATION: Signs/Symptoms:eval lung chun after esophageal stent placement. COMPARISON: Radiograph dated 06/15/2025 ACCESSION NUMBER(S): [id number] ORDERING CLINICIAN: REMI JENKINS FINDINGS: Esophageal rosalba stent is in unchanged position. The cardiac silhouette size is within normal limits. Persistent bibasilar opacity with blunting of the costophrenic angles. No edema or pneumothorax. No acute osseous abnormality. Impression Persistent small to moderate bilateral pleural effusion with associated atelectasis/consolidation, unchanged compared to prior study. Signed by: Juliette Gerard 06/16/2025 12:06 PM Dictation workstation: [id number] Pertinent Physical Exam At Time of Discharge Physical Exam Vitals reviewed. Constitutional: General: She is not in acute distress. Comments: Pale and fatigued female resting in the bed, in NAD on exam , cooperative , follow commands Cardiovascular: Rate and Rhythm: Normal rate and regular rhythm. Comments: Telemetry with NSR Pulmonary: Effort: Pulmonary effort is normal. No respiratory distress. Comments: Open stoma, not cannulated, covered with mesh No accessory muscle use Oxygenating well on trach collar at 44% FiO2 Abdominal: General: There is no distension. Palpations: Abdomen is soft. Tenderness: There is no abdominal tenderness. Comments: Large, soft, appropriately tender to touch Normoactive BS + flatus and BM today PEG in place, site dry and clean, TF infusing at 30 ml/hr Genitourinary: Comments: Voiding via external catheter Skin: General: Skin is warm and dry. Neurological: General: No focal deficit present. Mental Status: She is alert and oriented to person, place, and time. Psychiatric: Thought Content: Thought content normal. Home Medications Medication List START taking these medications Certavite-Antioxidant 18-400 mg-mcg tablet; Generic drug: multivitamin with minerals; Take 1 tablet by mouth once daily.; Start taking on: June 18, 2025 docusate sodium 50 mg/5 mL oral liquid; Commonly known as: Colace; Take 10 mL (100 mg) by g-tube 2 times a day. insulin lispro 100 unit/mL injection; Inject 0-5 Units under the skin every 4 hours. Take as directed per insulin instructions. metoclopramide 5 mg/mL injection; Commonly known as: Reglan; Infuse 2 mL (10 mg) into a venous catheter every 8 hours for 7 days. oxyCODONE 5 mg/5 mL solution; Commonly known as: Roxicodone; Take 5 mL (5 mg) by g-tube every 6 hours if needed for severe pain (7 - 10) for up to 7 days. thiamine 100 mg tablet; Commonly known as: Vitamin B-1; Take 1 tablet (100 mg) by mouth once daily.; Start taking on: June 18, 2025 CONTINUE taking these medications acetaminophen 325 mg tablet; Commonly known as: Tylenol; Take 2 tablets (650 mg) by mouth every 4 hours if needed for moderate pain (4 - 6) or mild pain (1 - 3). atorvastatin 20 mg tablet; Commonly known as: Lipitor carvedilol 6.25 mg tablet; Commonly known as: Coreg; Take 1 tablet (6.25 mg) by mouth 2 times a day. folic acid 1 mg tablet; Commonly known as: Folvite ipratropium-albuteroL 0.5-2.5 mg/3 mL nebulizer solution; Commonly known as: Duo-Neb; Take 3 mL by nebulization 4 times a day. levothyroxine 137 mcg tablet; Commonly known as: Synthroid, Levoxyl; Take 1 tablet (137 mcg) by mouth once daily. liothyronine 5 mcg tablet; Commonly known as: Cytomel; Take 1 tablet (5 mcg) by mouth once daily. omeprazole [address] capsule; Commonly known as: PriLOSEC; Take 1 capsule (40 mg) by mouth once daily. oxygen gas therapy; Commonly known as: O2; Inhale 1 Dose once every 24 hours. sertraline 50 mg tablet; Commonly known as: Zoloft; Take 1 tablet (50 mg) by mouth once daily. STOP taking these medications amLODIPine 5 mg tablet; Commonly known as: Norvasc citalopram 20 mg tablet; Commonly known as: CeleXA disulfiram 250 mg tablet; Commonly known as: Antabuse furosemide 20 mg tablet; Commonly known as: Lasix LORazepam 0.5 mg tablet; Commonly known as: Ativan magnesium oxide 400 mg tablet; Commonly known as: Mag-Ox pregabalin 100 mg capsule; Commonly known as: Lyrica Outpatient Follow-Up Future Appointments Date Time Provider Department Center 06/24/2025 2:15 PM Huma Thomas DO [id number] [facility] 06/27/2025 1:30 PM [id number] [id number] documented in this encounter [facility] Work Phone: 06-17-2025 Plan of care note Patient is medically ready for discharge. [facility] has accepted and patient has selected this as her FOC, but son and daughter in law has called and is requesting to change facilities. They have requested a referral be placed with [facility] and rehab. Waiting for review and acceptance. Patient has transportation scheduled for 3: 30 via [facility]. May be required to change transport time if facility change. Family is aware that patient has to agree to all accepting facilities. 06/17/2025@ 14:15. Patient is medically ready for discharge. Patient would like to discharge to [facility]. Patient daughter-in law and son has been updated on this discharge plan. Nursing report is [phone]. [facility] will transport. 06/17/2025@ 16:41 ETA 30 minutes confirmed with [facility] Work Phone: 06-17-2025 Miscellaneous Notes Patient is medically ready for discharge. [facility] has accepted and patient has selected this as her FOC, but son and daughter in law has called and is requesting to change facilities. They have requested a referral be placed with [facility] and rehab. Waiting for review and acceptance. Patient has transportation scheduled for 3: 30 via [facility]. May be required to change transport time if facility change. Family is aware that patient has to agree to all accepting facilities. 06/17/2025@ 14:15. Patient is medically ready for discharge. Patient would like to discharge to [facility]. Patient daughter-in law and son has been updated on this discharge plan. Nursing report is [phone]. [facility] will transport. 06/17/2025@ 16:41 ETA 30 minutes confirmed with [facility] Associated Problem(s): Tracheoesophageal fistula Vj Myers is a 55 y.o. 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 Was septic on arrival which was ultimately attributed to aspiration pneumonia/pneumonitis secondary to remote surgical TEF. Patient is now s/p EGD w/ esophageal stent placement, PEG tube placement and bronchoscopy 06/12 w/ Dr. Thomas. Patient decannulated 06/13, she is at risk for erosion between her trach tube and her new stent. Patient unable to speak with esophageal stent in place. Oxygenating well on trach collar. 06/15 unable to tolerated enteral feeds - layne residual/emesis, started on Reglan, NPO, IVF's 06/16 changed enteral feeds formula - tolerated at 30 ml/hr (goal 35 ml/hr) The patient's goals for the shift include Problem: Pain - Adult Goal: Verbalizes/displays adequate comfort level or baseline comfort level Outcome: Progressing Problem: Safety - Adult Goal: Free from fall injury Outcome: Progressing Problem: Nutrition Goal: Nutrient intake appropriate for maintaining nutritional needs Outcome: Progressing The clinical goals for the shift include pt will tolerate increase in tube feed. Problem: Pain - Adult Goal: Verbalizes/displays adequate comfort level or baseline comfort level Outcome: Progressing Problem: Safety - Adult Goal: Free from fall injury Outcome: Progressing Problem: Discharge Planning Goal: Discharge to home or other facility with appropriate resources Outcome: Progressing Problem: Chronic Conditions and Co-morbidities Goal: Patient's chronic conditions and co-morbidity symptoms are monitored and maintained or improved Outcome: Progressing Problem: Nutrition Goal: Nutrient intake appropriate for maintaining nutritional needs Outcome: Progressing Problem: Skin Goal: Decreased wound size/increased tissue granulation at next dressing change Outcome: Progressing Goal: Participates in plan/prevention/treatment measures Outcome: Progressing Goal: Prevent/manage excess moisture Outcome: Progressing Goal: Prevent/minimize sheer/friction injuries Outcome: Progressing Goal: Promote/optimize nutrition Outcome: Progressing Goal: Promote skin healing Outcome: Progressing Problem: Fall/Injury Goal: Not fall by end of shift Outcome: Progressing Goal: Be free from injury by end of the shift Outcome: Progressing Goal: Verbalize understanding of personal risk factors for fall in the hospital Outcome: Progressing Goal: Verbalize understanding of risk factor reduction measures to prevent injury from fall in the home Outcome: Progressing Goal: Use assistive devices by end of the shift Outcome: Progressing Goal: Pace activities to prevent fatigue by end of the shift Outcome: Progressing Problem: Pain Goal: Takes deep breaths with improved pain control throughout the shift Outcome: Progressing Goal: Turns in bed with improved pain control throughout the shift Outcome: Progressing Goal: Walks with improved pain control throughout the shift Outcome: Progressing Goal: Performs ADL's with improved pain control throughout shift Outcome: Progressing Goal: Participates in PT with improved pain control throughout the shift Outcome: Progressing Goal: Free from opioid side effects throughout the shift Outcome: Progressing Goal: Free from acute confusion related to pain meds throughout the shift Outcome: Progressing Problem: Pain - Adult Goal: Verbalizes/displays adequate comfort level or baseline comfort level Outcome: Progressing Problem: Safety - Adult Goal: Free from fall injury Outcome: Progressing Problem: Discharge Planning Goal: Discharge to home or other facility with appropriate resources Outcome: Progressing Problem: Chronic Conditions and Co-morbidities Goal: Patient's chronic conditions and co-morbidity symptoms are monitored and maintained or improved Outcome: Progressing Problem: Nutrition Goal: Nutrient intake appropriate for maintaining nutritional needs Outcome: Progressing Problem: Skin Goal: Decreased wound size/increased tissue granulation at next dressing change Outcome: Progressing Goal: Participates in plan/prevention/treatment measures Outcome: Progressing Goal: Prevent/manage excess moisture Outcome: Progressing Goal: Prevent/minimize sheer/friction injuries Outcome: Progressing Goal: Promote/optimize nutrition Outcome: Progressing Goal: Promote skin healing Outcome: Progressing Problem: Fall/Injury Goal: Not fall by end of shift Outcome: Progressing Goal: Be free from injury by end of the shift Outcome: Progressing Goal: Verbalize understanding of personal risk factors for fall in the hospital Outcome: Progressing Goal: Verbalize understanding of risk factor reduction measures to prevent injury from fall in the home Outcome: Progressing Goal: Use assistive devices by end of the shift Outcome: Progressing Goal: Pace activities to prevent fatigue by end of the shift Outcome: Progressing Problem: Pain Goal: Takes deep breaths with improved pain control throughout the shift Outcome: Progressing Goal: Turns in bed with improved pain control throughout the shift Outcome: Progressing Goal: Walks with improved pain control throughout the shift Outcome: Progressing Goal: Performs ADL's with improved pain control throughout shift Outcome: Progressing Goal: Participates in PT with improved pain control throughout the shift Outcome: Progressing Goal: Free from opioid side effects throughout the shift Outcome: Progressing Goal: Free from acute confusion related to pain meds throughout the shift Outcome: Progressing Associated Problem(s): Tracheoesophageal fistula Vj Myers is a 55 y.o. 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 Was septic on arrival which was ultimately attributed to aspiration pneumonia/pneumonitis secondary to remote surgical TEF. Patient is now s/p EGD w/ esophageal stent placement, PEG tube placement and bronchoscopy 06/12 w/ Dr. Thomas. Patient decannulated 06/13, she is at risk for erosion between her trach tube and her new stent. Patient unable to speak with esophageal stent in place. Oxygenating well on trach collar. 06/15 unable to tolerated enteral feeds - layne residual/emesis, started on Reglan, NPO, IVF's Associated Problem(s): Tracheoesophageal fistula Vj Myers is a 55 y.o. 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 Was septic on arrival which was ultimately attributed to aspiration pneumonia/pneumonitis secondary to remote surgical TEF. Patient is now s/p EGD w/ esophageal stent placement, PEG tube placement and bronchoscopy 06/12 w/ Dr. Thomas. Patient decannulated 06/13, she is at risk for erosion between her trach tube and her new stent. Patient unable to speak with esophageal stent in place. Associated Problem(s): Tracheoesophageal fistula Vj Meyrs is a 55 y.o. 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 Was septic on arrival which was ultimately attributed to aspiration pneumonia/pneumonitis secondary to remote surgical TEF. Patient is now s/p EGD w/ esophageal stent placement, PEG tube placement and bronchoscopy 06/12 w/ Dr. Thomas. Patient decannulated 06/13, she is at risk for erosion between her trach tube and her new stent. Patient unable to speak with esophageal stent in place. Associated Problem(s): Tracheoesophageal fistula Vj Myers is a 55 y.o. 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 Was septic on arrival which was ultimately attributed to aspiration pneumonia/pneumonitis secondary to remote surgical TEF. Patient is now s/p EGD w/ esophageal stent placement, PEG tube placement and bronchoscopy 06/12 w/ Dr. Thomas. Patient decannulated 06/13, she is at risk for erosion between her trach tube and her new stent. Patient unable to speak with esophageal stent in place. Problem: Pain - Adult Goal: Verbalizes/displays adequate comfort level or baseline comfort level Outcome: Progressing Problem: Safety - Adult Goal: Free from fall injury Outcome: Progressing Problem: Discharge Planning Goal: Discharge to home or other facility with appropriate resources Outcome: Progressing Problem: Chronic Conditions and Co-morbidities Goal: Patient's chronic conditions and co-morbidity symptoms are monitored and maintained or improved Outcome: Progressing Problem: Nutrition Goal: Nutrient intake appropriate for maintaining nutritional needs Outcome: Progressing Problem: Skin Goal: Decreased wound size/increased tissue granulation at next dressing change Outcome: Progressing Goal: Participates in plan/prevention/treatment measures Outcome: Progressing Goal: Prevent/manage excess moisture Outcome: Progressing Goal: Prevent/minimize sheer/friction injuries Outcome: Progressing Goal: Promote/optimize nutrition Outcome: Progressing Goal: Promote skin healing Outcome: Progressing Problem: Fall/Injury Goal: Not fall by end of shift Outcome: Progressing Goal: Be free from injury by end of the shift Outcome: Progressing Goal: Verbalize understanding of personal risk factors for fall in the hospital Outcome: Progressing Goal: Verbalize understanding of risk factor reduction measures to prevent injury from fall in the home Outcome: Progressing Goal: Use assistive devices by end of the shift Outcome: Progressing Goal: Pace activities to prevent fatigue by end of the shift Outcome: Progressing Problem: Pain Goal: Takes deep breaths with improved pain control throughout the shift Outcome: Progressing Goal: Turns in bed with improved pain control throughout the shift Outcome: Progressing Goal: Walks with improved pain control throughout the shift Outcome: Progressing Goal: Performs ADL's with improved pain control throughout shift Outcome: Progressing Goal: Participates in PT with improved pain control throughout the shift Outcome: Progressing Goal: Free from opioid side effects throughout the shift Outcome: Progressing Goal: Free from acute confusion related to pain meds throughout the shift Outcome: Progressing EGD, WITH STENT INSERTION, INSERTION, GASTROSTOMY TUBE, PERCUTANEOUS Operative Note Date: 06/12/2025 OR Location: [facility] OR Name: Vj Myers, : 1970, Age: 55 y.o., , Sex: female Diagnosis Pre-op Diagnosis * Tracheoesophageal fistula [J86.0] Post-op Diagnosis * Tracheoesophageal fistula [J86.0] Procedures EGD, percutaneous endoscopic gastrostomy tube placement, proximal esophageal stent, bronchoscopy Surgeons * Huma Thomas - Primary Resident/Fellow/Other Registered Nurse Cardiovascular Icu: Surgeons and Role: * No surgeons found with a matching role * Staff: Fitness And Wellness Manager: Christopher Coto Person: Tabby Fitness And Wellness Manager: Fuentes Anesthesia Staff: Anesthesiologist: Maurilio Valverde MD C-AA: KAROLINA Restrepo; KAROLINA Vargas Procedure Summary Anesthesia: General ASA: III Estimated Blood Loss: 10mL Intra-op Medications: Administrations occurring from 1234 to 1404 on 06/12/25: Medication Name Total Dose BUPivacaine-EPINEPHrine (PF) (Marcaine w/EPI) 0.25 %-1:200,000 injection 10 mL alteplase (Cathflo Activase) injection 2 mg Cannot be calculated calcium gluconate 1 g in sodium chloride (iso) IV 50 mL Cannot be calculated calcium gluconate 2 g in sodium chloride (iso) IV 100 mL Cannot be calculated dextrose 50 % injection 12.5 g Cannot be calculated dextrose 50 % injection 25 g Cannot be calculated glucagon (Glucagen) injection 1 mg Cannot be calculated glucagon (Glucagen) injection 1 mg Cannot be calculated HYDROmorphone PF (Dilaudid) injection 0.2 mg Cannot be calculated magnesium sulfate 2 g in sterile water for injection 50 mL Cannot be calculated magnesium sulfate 4 g in sterile water for injection 100 mL Cannot be calculated methocarbamol (Robaxin) injection 1,000 mg Cannot be calculated potassium chloride 20 mEq in sterile water for injection 100 mL Cannot be calculated thiamine (Vitamin B-1) tablet 100 mg Cannot be calculated thiamine (Vitamin B1) injection 100 mg Cannot be calculated levothyroxine (Synthroid) injection 125 mcg 125 mcg magnesium sulfate 4 g in sterile water for injection 100 mL Cannot be calculated acetaminophen (Ofirmev) injection 1,000 mg Cannot be calculated ceFAZolin (Ancef) 1 g 2 g dexAMETHasone (Decadron) 4 mg/mL IV Syringe 2 mL 8 mg folic acid (Folvite) tablet 1 mg Cannot be calculated heparin (porcine) injection 5,000 Units Cannot be calculated insulin lispro injection 0-5 Units Cannot be calculated LR bolus Cannot be calculated lidocaine (cardiac) injection 2% prefilled syringe 100 mg midazolam PF (Versed) injection 1 mg/mL 1 mg ondansetron (Zofran) 2 mg/mL injection 4 mg pantoprazole (Protonix) injection 40 mg Cannot be calculated phenylephrine 100 mcg/mL syringe 10 mL (prefilled) 400 mcg piperacillin-tazobactam (Zosyn) 4.5 g in dextrose (iso) IV 100 mL Cannot be calculated propofol (Diprivan) injection 10 mg/mL 160 mg Anesthesia Record Intraprocedure I/O Totals None Specimen: No specimens collected Drains and/or Catheters: Gastrostomy/Enterostomy Gastrostomy 20 Fr. LUQ (Active) External Urinary Catheter Female (Active) Present on Admission to Healthcare Facility N 06/12/25 08 Wall Suction (mmHg) 50 06/12/25 0800 External Catheter Status Changed 06/12/25 08 Securement Method Adhesive device 06/12/25 08 Output (mL) 200 mL 06/12/25 0600 Tourniquet Times: Implants: Implants Type Name Action Serial No. Stent STENT, ESOPHAGEAL ENDOMAXX 19MM X 120MM [facility] - [id number] Implanted Findings: Proximal tracheoesophageal fistula- esophageal side approx 15cm from the lips, approx 8-10mm in size. Indications: Vj Myers is an 55 y.o. 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 She presented to an outside hospital after being found down by family. Was septic on arrival, concern for UTI as well as aspiration pneumonia. She underwent a bronchoscopy showing food products within the lungs. Additional workup was positive for a tracheoesophageal fistula. Patient previously had a tracheal stoma, tracheostomy was replaced at the outside hospital for respiratory issues. We discussed temporizing intervention with a stent for occlusion as well as were later removal of her tracheostomy. Additionally we discussed PEG tube replacement for feeding access that she will have limited p.o. intake. Patient understands and is agreeable. The patient was seen in the preoperative area. The risks, benefits, complications, treatment options, non-operative alternatives, expected recovery and outcomes were discussed with the patient. The possibilities of reaction to medication, pulmonary aspiration, injury to surrounding structures, bleeding, recurrent infection, the need for additional procedures, failure to diagnose a condition, and creating a complication requiring transfusion or operation were discussed with the patient. The patient concurred with the proposed plan, giving informed consent. The site of surgery was properly noted/marked if necessary per policy. The patient has been actively warmed in preoperative area. Preoperative antibiotics have been ordered and given within 1 hours of incision. Venous thrombosis prophylaxis have been ordered including bilateral sequential compression devices and chemical prophylaxis Procedure Details: Patient was brought into the operating suite procedural information was confirmed. General anesthesia was induced and her tracheostomy was utilized for ventilation. We inserted the endoscope traversed the esophagus, though some narrowing quite proximally near her previous surgical site, down into the stomach and found her prior PEG tube site. This was reaccessed from the skin and using reverse Ponsky maneuvers the PEG tube was eventually pulled into the stomach after confirming one-to-one indentation & transillumination through her old scar as well as local anesthesia injection of quarter percent Marcaine. The tube was secured at approximately 3.5 cm of the skin with a bumper and this twisted easily. On further endoscopic view we found the area of the tracheoesophageal fistula at approximately 15 cm on the endoscope from the level of the mouth, this was approximately the size of a dime or 8-10mm in size. We were able to see her current tracheostomy cannula through the fistula. We then passed a guidewire down into the stomach and remove the endoscope. A [id number] [id number] stent was placed under endoscopic guidance from ~12 cm proximally, right within the posterior pharynx, down to 24 cm distally. Proximally this was mildly stenotic but was eventually traversable with the endoscope. There was no significant bleeding, the esophagus and stent area were suctioned and the endoscope was removed. Her tracheostomy was carefully pulled back to see the membranous portion of the tracheoesophageal fistula, which was a couple millimeters beneath her stoma. Her tracheostomy was gently advanced back over our bronchoscope. Her tracheostomy was resecured. Patient was reversed from anesthesia and taken back to the ICU in stable condition. Evidence of Infection: No Complications: None; patient tolerated the procedure well. Disposition: ICU - intubated and hemodynamically stable. Condition: stable Additional Details: Na Attending Attestation: I was present for the entire procedure. Huma Thomas Date: 06/12/2025 OR Location: [facility] OR Name: Vj Myers, : 1970, Age: 55 y.o., , Sex: female Diagnosis Pre-op Diagnosis * Tracheoesophageal fistula [J86.0] Post-op Diagnosis * Tracheoesophageal fistula [J86.0] Procedures EGD, WITH STENT INSERTION 27341 - PA EGD ENDOSCOPIC STENT PLACEMENT W/WIRE& DILATION INSERTION, GASTROSTOMY TUBE, PERCUTANEOUS 24783 - PA EGD PERCUTANEOUS PLACEMENT GASTROSTOMY TUBE Surgeons * Huma Thomas - Primary Resident/Fellow/Other Registered Nurse Cardiovascular Icu: Surgeons and Role: * No surgeons found with a matching role * Staff: Fitness And Wellness Manager: Christopher Coto Person: Tabby Fitness And Wellness Manager: Fuentes Anesthesia Staff: Anesthesiologist: Maurilio Valverde MD C-AA: KAROLINA Restrepo; KAROLINA Vargas Procedure Summary Anesthesia: General ASA: III Estimated Blood Loss: 2mL Intra-op Medications: Administrations occurring from 1234 to 1404 on 06/12/25: Medication Name Total Dose BUPivacaine-EPINEPHrine (PF) (Marcaine w/EPI) 0.25 %-1:200,000 injection 10 mL alteplase (Cathflo Activase) injection 2 mg Cannot be calculated calcium gluconate 1 g in sodium chloride (iso) IV 50 mL Cannot be calculated calcium gluconate 2 g in sodium chloride (iso) IV 100 mL Cannot be calculated dextrose 50 % injection 12.5 g Cannot be calculated dextrose 50 % injection 25 g Cannot be calculated glucagon (Glucagen) injection 1 mg Cannot be calculated glucagon (Glucagen) injection 1 mg Cannot be calculated HYDROmorphone PF (Dilaudid) injection 0.2 mg Cannot be calculated magnesium sulfate 2 g in sterile water for injection 50 mL Cannot be calculated magnesium sulfate 4 g in sterile water for injection 100 mL Cannot be calculated methocarbamol (Robaxin) injection 1,000 mg Cannot be calculated potassium chloride 20 mEq in sterile water for injection 100 mL Cannot be calculated thiamine (Vitamin B-1) tablet 100 mg Cannot be calculated thiamine (Vitamin B1) injection 100 mg Cannot be calculated levothyroxine (Synthroid) injection 125 mcg 125 mcg magnesium sulfate 4 g in sterile water for injection 100 mL Cannot be calculated acetaminophen (Ofirmev) injection 1,000 mg Cannot be calculated ceFAZolin (Ancef) 1 g 2 g dexAMETHasone (Decadron) 4 mg/mL IV Syringe 2 mL 8 mg folic acid (Folvite) tablet 1 mg Cannot be calculated heparin (porcine) injection 5,000 Units Cannot be calculated insulin lispro injection 0-5 Units Cannot be calculated LR bolus Cannot be calculated lidocaine (cardiac) injection 2% prefilled syringe 100 mg midazolam PF (Versed) injection 1 mg/mL 1 mg ondansetron (Zofran) 2 mg/mL injection 4 mg pantoprazole (Protonix) injection 40 mg Cannot be calculated phenylephrine 100 mcg/mL syringe 10 mL (prefilled) 400 mcg piperacillin-tazobactam (Zosyn) 4.5 g in dextrose (iso) IV 100 mL Cannot be calculated propofol (Diprivan) injection 10 mg/mL 160 mg Anesthesia Record Intraprocedure I/O Totals None Specimen: No specimens collected Findings: Percutaneous PEG tube placed using transillumination with one-to-one touch differentiation and aspiration during needle insertion. The tracheoesophageal fistula was then visualized 15cm from the incisors. Stent placed and successfully discharged at 12cm from the incisors. Able to traverse the stent with endoscope. Bronchoscopy performed, mucous seen and suctioned, no food visualized in the airway. Able to visualize part of the tracheoesophageal fistula beneath her trach tube. Complications: None; patient tolerated the procedure well. Disposition: ICU - extubated and stable. Condition: stable Specimens Collected: No specimens collected Attending Attestation: Huma Thomas Maria Ines Woodson MD PGY2 Thoracic Surgery [id number] Cosigned by Huma Thomas DO at 06/15/2025 8:55 AM EDT The patient's goals for the shift include The clinical goals for the shift include pt. will remain HDS throughout shift Problem: Pain - Adult Goal: Verbalizes/displays adequate comfort level or baseline comfort level Outcome: Progressing Problem: Safety - Adult Goal: Free from fall injury Outcome: Progressing Problem: Discharge Planning Goal: Discharge to home or other facility with appropriate resources Outcome: Progressing Problem: Chronic Conditions and Co-morbidities Goal: Patient's chronic conditions and co-morbidity symptoms are monitored and maintained or improved Outcome: Progressing Problem: Nutrition Goal: Nutrient intake appropriate for maintaining nutritional needs Outcome: Progressing Problem: Skin Goal: Decreased wound size/increased tissue granulation at next dressing change Outcome: Progressing Flowsheets (Taken 06/12/2025346) Decreased wound size/increased tissue granulation at next dressing change: Promote sleep for wound healing Protective dressings over bony prominences Utilize specialty bed per algorithm Goal: Participates in plan/prevention/treatment measures Outcome: Progressing Flowsheets (Taken 06/12/2025346) Participates in plan/prevention/treatment measures: Discuss with provider PT/OT consult Elevate heels Increase activity/out of bed for meals Goal: Prevent/manage excess moisture Outcome: Progressing Flowsheets (Taken 06/12/2025346) Prevent/manage excess moisture: Cleanse incontinence/protect with barrier cream Monitor for/manage infection if present Follow provider orders for dressing changes Moisturize dry skin Goal: Prevent/minimize sheer/friction injuries Outcome: Progressing Flowsheets (Taken 06/12/2025346) Prevent/minimize sheer/friction injuries: Complete micro-shifts as needed if patient unable. Adjust patient position to relieve pressure points, not a full turn Use pull sheet Turn/reposition every 2 hours/use positioning/transfer devices HOB 30 degrees or less Utilize specialty bed per algorithm Goal: Promote/optimize nutrition Outcome: Progressing Flowsheets (Taken 06/12/2025346) Promote/optimize nutrition: Discuss with provider if NPO > 2 days Monitor/record intake including meals Goal: Promote skin healing Outcome: Progressing Flowsheets (Taken 06/12/2025346) Promote skin healing: Assess skin/pad under line(s)/device(s) Protective dressings over bony prominences Turn/reposition every 2 hours/use positioning/transfer devices Ensure correct size (line/device) and apply per clay modeler instructions Rotate device position/do not position patient on device Problem: Fall/Injury Goal: Not fall by end of shift Outcome: Progressing Goal: Be free from injury by end of the shift Outcome: Progressing Goal: Verbalize understanding of personal risk factors for fall in the hospital Outcome: Progressing Goal: Verbalize understanding of risk factor reduction measures to prevent injury from fall in the home Outcome: Progressing Goal: Use assistive devices by end of the shift Outcome: Progressing Goal: Pace activities to prevent fatigue by end of the shift Outcome: Progressing Problem: Pain Goal: Takes deep breaths with improved pain control throughout the shift Outcome: Progressing Goal: Turns in bed with improved pain control throughout the shift Outcome: Progressing documented in this encounter [facility] Work Phone: 06-17-2025 History of Present illness Narrative 06/17/25 1056 Discharge Planning Living Arrangements Spouse/significant other Support Systems Spouse/significant other Type of Residence Private residence Patient is medically ready for discharge. Patient would like [facility] [phone] who has accepted patient. Significant has been updated. Transportation has been arranged via [employer]. 3:30 pm seed cone picker has been requested. Patient will need a 7000, but no pre cert. Occupational Therapy OT Treatment Patient Name: Vj Myers Department: [place] [id number] Room: [address] [place] [address] Today's Date: 06/17/2025 Time Calculation Start Time: 852 Stop Time: 916 Time Calculation (min): 24 min Assessment: OT Assessment: Pt will benefit from continued skilled OT to increase independence in ADLs, functional mobility, activity tolerance, safety, and strength. Prognosis: Good Barriers to Discharge Home: Caregiver assistance, Physical needs Caregiver Assistance: Patient lives alone and/or does not have reliable caregiver assistance Physical Needs: 24hr mobility assistance needed, 24hr ADL assistance needed Evaluation/Treatment Tolerance: Patient tolerated treatment well Medical Staff Made Aware: Yes End of Session Communication: Bedside nurse End of Session Patient Position: Up in chair, Alarm off, not on at start of session OT Assessment Results: Decreased ADL status, Decreased upper extremity strength, Decreased endurance, Decreased functional mobility, Decreased IADLs Prognosis: Good Evaluation/Treatment Tolerance: Patient tolerated treatment well Medical Staff Made Aware: Yes Plan: Treatment Interventions: ADL retraining, Functional transfer training, UE strengthening/ROM, Endurance training, Patient/family training, Equipment evaluation/education, Fine motor coordination activities, Compensatory technique education OT Frequency: 3 times per week (During this inpatient acute hospitalization) OT Discharge Recommendations: Moderate intensity level of continued care (Based on current functional status and rehab potential, patient is anticipated to tolerate and benefit from 5 or more days per week of skilled rehabilitative therapy after discharge from this acute inpatient hospitalization.) Equipment Recommended upon Discharge: Wheeled walker OT Recommended Transfer Status: Assist of 2 OT - OK to Discharge: Yes Treatment Interventions: ADL retraining, Functional transfer training, UE strengthening/ROM, Endurance training, Patient/family training, Equipment evaluation/education, Fine motor coordination activities, Compensatory technique education Subjective OT Visit Info: OT Received On: 06/17/25 General Visit Info: General Reason for Referral: Patient found down at home on steps with minimal responsiveness. Found to be septic with PNA. CT chest on 06/10 with bilateral pleural effusions/infiltrate suspicious for aspiration pneumonia/pneumonitis secondary to remote surgical TEF. [place] [facility] [place] management of chronic TEF and need for distal enteral access. Plan for EGD, stent and PEG potentially 06/12 Past Medical History Relevant to Rehab: throat cancer, anemia, hypokalemia, trach, ETOH abuse, smoker, HLD, depression Family/Caregiver Present: No Prior to Session Communication: Bedside nurse Patient Position Received: Bed, 3 rail up, Alarm off, not on at start of session General Comment: Pt supine in bed upon arrivla, agreeable to OT, pt writing on whiteboard to communicate Precautions: Medical Precautions: Fall precautions, Oxygen therapy device and L/min Precautions Comment: trach collar over open stoma Pain: Pain Assessment Pain Assessment: 0-10 0-10 (Numeric) Pain Score: 6 Pain Type: Surgical pain Pain Location: Abdomen Pain Interventions: Repositioned, Distraction Objective Cognition: Cognition Orientation Level: Oriented X4 Following Commands: Follows one step commands with increased time Safety/Judgement: Exceptions to WFL Insight: Mild Impulsive: Mildly Processing Speed: Delayed Coordination: Movements are Fluid and Coordinated: Yes Upper Body Coordination: bradykinesia Activities of Daily Living: UE Dressing UE Dressing Level of Assistance: Contact guard UE Dressing Where Assessed: Edge of bed UE Dressing Comments: donned gown over back setaed EOB CGA Bed Mobility/Transfers: Bed Mobility Bed Mobility: Yes Bed Mobility 1 Bed Mobility 1: Supine to sitting Level of Assistance 1: Contact guard Bed Mobility Comments 1: HOB elevated Transfers Transfer: Yes Transfer 1 Transfer From 1: Sit to, Stand to Transfer to 1: Stand, Sit Technique 1: Sit to stand, Stand to sit Transfer Device 1: Walker Transfer Level of Assistance 1: Maximum assistance, Minimal verbal cues Trials/Comments 1: 3x trials, trial 1 and 2 unable to complete, trial 3 bed height elevated Functional Mobility: Functional Mobility Functional Mobility Performed: Yes Functional Mobility 1 Surface 1: Level tile Device 1: Rolling walker Assistance 1: Minimal verbal cues, Moderate assistance Comments 1: bed > chair Sitting Balance: Static Sitting Balance Static Sitting-Balance Support: Feet supported Static Sitting-Level of Assistance: Close supervision Dynamic Sitting Balance Dynamic Sitting-Balance Support: Feet supported Dynamic Sitting-Level of Assistance: Close supervision Standing Balance: Static Standing Balance Static Standing-Balance Support: Bilateral upper extremity supported Static Standing-Level of Assistance: Moderate assistance Dynamic Standing Balance Dynamic Standing-Balance Support: Bilateral upper extremity supported Dynamic Standing-Level of Assistance: Moderate assistance Modalities: Modalities Used: No Therapy/Activity: Therapeutic Activity Therapeutic Activity Performed: Yes Therapeutic Activity 1: bed mobility, transfers, functional mobility, extended time seated EOB ~10 min Therapeutic Activity 2: Pt educated on OT POC, d/c rec, and safety Outcome Measures:[facility] Daily Activity Putting on and taking off regular lower body clothing: Total Bathing (including washing, rinsing, drying): A lot Putting on and taking off regular upper body clothing: A lot Toileting, which includes using toilet, bedpan or urinal: A lot Taking care of personal grooming such as brushing teeth: A little Eating Meals: A little Daily Activity - Total Score: 13 Education Documentation Body Mechanics, taught by Alexsander Clark OT at 06/17/2025 10:35 AM. Learner: Patient Readiness: Acceptance Method: Explanation Response: Verbalizes Understanding Comment: OT POC, d/c rec, safety, ADLs Precautions, taught by Alexsander Clark OT at 06/17/2025 10:35 AM. Learner: Patient Readiness: Acceptance Method: Explanation Response: Verbalizes Understanding Comment: OT POC, d/c rec, safety, ADLs ADL Training, taught by Alexsander Clark OT at 06/17/2025 10:35 AM. Learner: Patient Readiness: Acceptance Method: Explanation Response: Verbalizes Understanding Comment: OT POC, d/c rec, safety, ADLs Education Comments No comments found. Goals: Encounter Problems Encounter Problems (Active) ADLs Patient will perform UB and LB bathing with minimal assist level of assistance. (Progressing) Start: 06/12/25 Expected End: 07/03/25 Patient with complete upper body dressing with stand by assist level of assistance donning and doffing all UE clothes with PRN adaptive equipment while edge of bed (Progressing) Start: 06/12/25 Expected End: 07/03/25 Patient with complete lower body dressing with minimal assist level of assistance donning and doffing all LE clothes with PRN adaptive equipment while edge of bed (Progressing) Start: 06/12/25 Expected End: 07/03/25 Patient will complete daily grooming tasks washing face/hair with independent level of assistance and PRN adaptive equipment while edge of bed. (Progressing) Start: 06/12/25 Expected End: 07/03/25 BALANCE Pt will maintain static sitting balance during ADL task with stand by assist level of assistance in order to demonstrate decreased risk of falling and improved postural control. (Progressing) Start: 06/12/25 Expected End: 07/03/25 TRANSFERS Patient will perform bed mobility minimal assist level of assistance in order to improve safety and independence with mobility (Progressing) Start: 06/12/25 Expected End: 07/03/25 Patient will complete functional transfer to chair with least restrictive device with minimal assist level of assistance. (Progressing) Start: 06/12/25 Expected End: 07/03/25 DANIELLE Boyd/L jV Myers is a 55 y.o. female on day 5 of admission presenting with Tracheoesophageal fistula. Subjective No significant events overnight Tolerating enteral feeds at 30 ml/hr Oxygenating well overnight on trach collar Objective Physical Exam Vitals reviewed. Constitutional: General: She is not in acute distress. Comments: Pale and fatigued female resting in the bed, in NAD on exam , cooperative , follow commands Cardiovascular: Rate and Rhythm: Normal rate and regular rhythm. Comments: Telemetry with NSR Pulmonary: Effort: Pulmonary effort is normal. No respiratory distress. Comments: Open stoma, not cannulated, covered with mesh No accessory muscle use Oxygenating well on trach collar at 44% FiO2 Abdominal: General: There is no distension. Palpations: Abdomen is soft. Tenderness: There is no abdominal tenderness. Comments: Large, soft, appropriately tender to touch Normoactive BS + flatus and BM today PEG in place, site dry and clean, TF infusing at 30 ml/hr Genitourinary: Comments: Voiding via external catheter Skin: General: Skin is warm and dry. Neurological: General: No focal deficit present. Mental Status: She is alert and oriented to person, place, and time. Psychiatric: Thought Content: Thought content normal. Last Recorded Vitals Blood pressure 130/86, pulse 78, temperature 36 C (96.8 F), temperature source Temporal, resp. rate 18, height 1.6 m (5' 2.99), weight 92.8 kg (204 lb 9.6 oz), SpO2 95%. Intake/Output last 3 Shifts: I/O last 3 completed shifts: In: 2031.3 (21.3 mL/kg) [I.V.:1401.3 (14.7 mL/kg); NG/GT:630] Out: 2800 (29.4 mL/kg) [Urine:2800 (0.8 mL/kg/hr)] Weight: 95.3 kg Relevant Results Scheduled medications Scheduled Medications[1] Continuous medications Continuous Medications[2] PRN medications PRN Medications[3] Results for orders placed or performed during the hospital encounter of 06/12/25 (from the past 24 hours) POCT GLUCOSE Result Value Ref Range POCT Glucose 96 74 - 99 mg/dL POCT GLUCOSE Result Value Ref Range POCT Glucose 98 74 - 99 mg/dL POCT GLUCOSE Result Value Ref Range POCT Glucose 97 74 - 99 mg/dL POCT GLUCOSE Result Value Ref Range POCT Glucose 103 (H) 74 - 99 mg/dL POCT GLUCOSE Result Value Ref Range POCT Glucose 110 (H) 74 - 99 mg/dL CBC Result Value Ref Range WBC 5.9 4.4 - 11.3 x10*3/uL nRBC 0.0 0.0 - 0.0 /100 WBCs RBC 2.74 (L) 4.00 - 5.20 x10*6/uL Hemoglobin 8.6 (L) 12.0 - 16.0 g/dL Hematocrit 28.2 (L) 36.0 - 46.0 % MCV 103 (H) 80 - 100 fL MCH 31.4 26.0 - 34.0 pg MCHC 30.5 (L) 32.0 - 36.0 g/dL RDW 17.4 (H) 11.5 - 14.5 % Platelets 143 (L) 150 - 450 x10*3/uL Basic metabolic panel Result Value Ref Range Glucose 93 74 - 99 mg/dL Sodium 140 136 - 145 mmol/L Potassium 3.3 (L) 3.5 - 5.3 mmol/L Chloride 104 98 - 107 mmol/L Bicarbonate 28 21 - 32 mmol/L Anion Gap 11 10 - 20 mmol/L Urea Nitrogen 5 (L) 6 - 23 mg/dL Creatinine 0.60 0.50 - 1.05 mg/dL eGFR >90 >60 mL/min/1.73m*2 Calcium 8.0 (L) 8.6 - 10.6 mg/dL Magnesium Result Value Ref Range Magnesium 1.83 1.60 - 2.40 mg/dL XR chest 1 view 06/16/2025 Narrative Interpreted By: Juliette Macias, STUDY: XR CHEST 1 VIEW; 06/16/2025 2:51 am INDICATION: Signs/Symptoms:eval lung chun after esophageal stent placement. COMPARISON: Radiograph dated 06/15/2025 ACCESSION NUMBER(S): [id number] ORDERING CLINICIAN: REMI JENKINS FINDINGS: Esophageal rosalba stent is in unchanged position. The cardiac silhouette size is within normal limits. Persistent bibasilar opacity with blunting of the costophrenic angles. No edema or pneumothorax. No acute osseous abnormality. Impression Persistent small to moderate bilateral pleural effusion with associated atelectasis/consolidation, unchanged compared to prior study. Signed by: Juliette Gerard 06/16/2025 12:06 PM Dictation workstation: [id number] Assessment & Plan Tracheoesophageal fistula Vj Myers is a 55 y.o. 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 Was septic on arrival which was ultimately attributed to aspiration pneumonia/pneumonitis secondary to remote surgical TEF. Patient is now s/p EGD w/ esophageal stent placement, PEG tube placement and bronchoscopy 06/12 w/ Dr. Thomas. Patient decannulated 06/13, she is at risk for erosion between her trach tube and her new stent. Patient unable to speak with esophageal stent in place. Oxygenating well on trach collar. 06/15 unable to tolerated enteral feeds - layne residual/emesis, started on Reglan, NPO, IVF's 06/16 changed enteral feeds formula - tolerated at 30 ml/hr (goal 35 ml/hr) Plan: NEURO: History of anxiety and alcohol use (>1 pint of liquor every day). Alcohol level of 0 on arrival to OSH, was on previously on precedex gtt for alcohol withdrawal. - Ongoing neuro and pain assessments - Scheduled Acetaminophen via PEG and Oxycodone as needed for pain, monitor effectiveness and adjust dose as needed - PT/OT following - PO thiamine 100 mg - Home meds: ? Citalopram 20 mg , Sertraline 50 mg , Folic acid 1 mg , continue home Zoloft and Folic Acid -Bowel regimen -Encourage OOB/ambulation CV: HTN, HLD. Nuclear stress 05/30/2022 negative for inducible ischemia, LV EF 62%. Previously requiring levophed at OSH 2/2 septic shock, since resolved. Hemodynamically stable, off pressors. Soft pressure, NSR on telemetry. 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 Hospitalized in Oct 2023 for PNA requiring placement of tracheostomy through her stoma for ventilatory support. Bronchoscopy on 06/07 with copious amounts of food and secretions. - Maintain open tracheal stoma, no tubes in trachea. Plan to send home with open stom - ENT consulted per ICU respiratory therapy recommendations for stoma protection -> placed mepilex over stoma, patient has outpatient follow appt scheduled with Dr. Zhang for 06/27 - Wean FiO2 as tolerated, currently on trach collar at 44 % Fioa2 - Additional pulm toilet prn. GI: GERD on omeprazole. S/p esophageal stent and PEG placement 06/13 -Esophageal stent: will keep esophageal stent for at least 6 weeks, will schedule elective EGD/stent removal +/- replacement -Unable to tolerate enteral feeds over the weekend, added Reglan and changed formula per aws architect recommendations - able to tolerate, advance to goal of 35 ml /hr -Ok to administer medications via PEG -IVFs hydration stopped , added water flushes -Strict NPO - PPI for GI prophylaxis : No history of renal disease. Baseline creatinine 0.8-1. - Volume resuscitation as needed - Check renal function panel as needed. Creatinine 0.60 today - Replete electrolytes to goal, hypokalemia and hypomagnesemia HEME: Macrocytic anemia. - CBC daily - SCDs and SQH for DVT prophylaxis - Ongoing monitoring for s/s bleeding ENDO: Hypothyroidism. - Endocrinology consult for mgmt of hypothyroidism. Appreciate recs: Recommendations: Continue tablet levothyroxine 150 mcg daily via PEG tube while inpatient Keep home liothyronine on hold We recommend holding tube feeds 1 hour before giving levothyroxine and 1 hour after administration of levothyroxine to aid adequate absorption. Plan to repeat TFTs on 06/15/2025 Discharge recommendations: Patient to be discharged on tablet levothyroxine 137 mcg daily, patient educated to hold tube feeds 1 hour before and after levothyroxine administration Patient wants to continue liothyronine at home. Okay to continue tablet liothyronine 5 mcg daily upon discharge Plan to repeat TFTs in 6 weeks upon discharge with PCP. - BG monitoring with Lispro S/S per protocol - Home meds: Synthroid 137 mcg, Liothyronine 5 mcg ID: Afebrile, no leukocytosis. Patient initially started on IV vanc/zosyn at OSH for septic shock requiring pressor support. Blood cxs neg, urine cx contaminated. Initially suspected sepsis secondary to UTI with CT CAP on 06/05 showing gas in the anterior bladder consistent with emphysematous cystitis. Also c/f aspiration pneumonia vs pneumonitis given dysphagia and TEF. Sputum culture not performed d/t significant salivary contamination. Afebrile, no leukocytosis - Temp q4h, WBC daily - Completed ATB 06/14 - Ongoing monitoring for s/s infection Disposition: -Plan to discharge patient to SNF today if bed available, patient and family agreeable , counter caser aware Patient seen by this provider and discussed with Dr. hTomas. JUAN CARLOS [facility] [id number] [1] acetaminophen, 650 mg, g-tube, q6h carvedilol, 6.25 mg, g-tube, BID docusate sodium, 100 mg, g-tube, BID folic acid, 1 mg, g-tube, Daily heparin (porcine), 5,000 Units, subcutaneous, q8h insulin lispro, 0-5 Units, subcutaneous, q4h levothyroxine, 150 mcg, g-tube, Daily magnesium sulfate, 2 g, intravenous, Once metoclopramide, 10 mg, intravenous, q8h multivitamin with minerals, 1 tablet, oral, Daily pantoprazole, 40 mg, intravenous, Daily sertraline, 50 mg, g-tube, Daily thiamine, 100 mg, oral, Daily [2] [3] PRN medications: alteplase, dextrose, dextrose, glucagon, glucagon, oxyCODONE, oxyCODONE, oxygen Physical Therapy Physical Therapy Treatment Patient Name: Vj Myers Today's Date: 06/16/2025 Room: [address] [place] [address]-A Time Calculation Start Time: 1115 Stop Time: 1155 Time Calculation (min): 40 min Assessment/Plan PT Plan Treatment/Interventions: Bed mobility, Transfer training, Gait training, Stair training, Balance training, Neuromuscular re-education, Neurodevelopmental intervention, Strengthening, Endurance training, Range of motion, Therapeutic exercise, Therapeutic activity, Home exercise program PT Plan: Ongoing PT PT Frequency: 4 times per week (Based on current functional status and rehab potential, patient is anticipated to tolerate and benefit from 5 or more days per week of skilled rehabilitative therapy after discharge from this acute inpatient hospitalization.) PT Discharge Recommendations: Moderate intensity level of continued care Equipment Recommended upon Discharge: Wheeled walker PT Recommended Transfer Status: Assist x1, Assistive device PT - OK to Discharge: Yes General Visit Information: Reason for Referral: Patient found down at home on steps with minimal responsiveness. Found to be septic with PNA. CT chest on 06/10 with bilateral pleural effusions/infiltrate suspicious for aspiration pneumonia/pneumonitis secondary to remote surgical TEF. [place] [facility] [place] management of chronic TEF and need for distal enteral access. Plan for EGD, stent and PEG potentially 06/12 Past Medical History Relevant to Rehab: throat cancer, anemia, hypokalemia, trach, ETOH abuse, smoker, HLD, depression Prior to Session Communication: Bedside nurse Patient Position Received: Bed, 3 rail up, Alarm off, not on at start of session Subjective: Patient is alert, agreeable to PT. Minimally conversive/attempting to communicate throughout session. Expressing some fear of falling with gait trials. Precautions: Precautions Medical Precautions: Fall precautions, Oxygen therapy device and L/min Precautions Comment: trach collar over open stoma Vital Signs: Date/Time Vitals Session Patient Position Pulse Resp SpO2 BP MAP (mmHg) 06/16/25 1156 -- -- 82 18 95 % 93/52 66 Objective Pain: Pain Assessment 0-10 (Numeric) Pain Score: 0 - No pain (post 0) Cognition: Cognition Overall Cognitive Status: Within Functional Limits (withdrawn) Orientation Level: Oriented X4 Lines/Tubes/Drains: Gastrostomy/Enterostomy Gastrostomy 20 Fr. LUQ (Active) Number of days: 3 External Urinary Catheter Female (Active) Number of days: 8 External Urinary Catheter (Active) Number of days: 2 Medical Gas Therapy: Supplemental oxygen Medical Gas Delivery Method: Trach mask Continuous Medications/Drips: Continuous Medications[1] PT Treatments: Bed Mobility 1 Bed Mobility 1: Supine to sitting Level of Assistance 1: Contact guard Bed Mobility Comments 1: HOB 30, rail, verbal cues for hand placement Ambulation/Gait Training Ambulation/Gait Training Performed: Yes Ambulation/Gait Training 1 Surface 1: Level tile Device 1: Rolling walker Assistance 1: Minimum assistance Quality of Gait 1: (flexed posture, COG posterior to JAYLON, decreased foot clearance, decreased step length, impaired weight shift, decreased gait speed) Comments/Distance (ft) 1: 3', 6', 10' (c chair follow) Transfers Transfer: Yes Transfer 1 Transfer From 1: Sit to Transfer to 1: Stand Transfer Device 1: Walker Transfer Level of Assistance 1: Moderate assistance Trials/Comments 1: x6 Transfers 2 Transfer From 2: Stand to Transfer to 2: Sit Transfer Device 2: Walker Transfer Level of Assistance 2: Moderate assistance Trials/Comments 2: x6 Transfers 3 Transfer From 3: Bed to Transfer to 3: Chair with arms Transfer Device 3: Walker Transfer Level of Assistance 3: Moderate assistance Trials/Comments 3: x1 Transfers 4 Transfer From 4: Chair with arms to Transfer to 4: Chair with arms Transfer Device 4: Walker Transfer Level of Assistance 4: Moderate assistance Trials/Comments 4: x3 Outcome Measures: [facility] Basic Mobility Turning from your back to your side while in a flat bed without using bedrails: A little Moving from lying on your back to sitting on the side of a flat bed without using bedrails: A little Moving to and from bed to chair (including a wheelchair): A lot Standing up from a chair using your arms (e.g. wheelchair or bedside chair): A lot To walk in hospital room: A lot Climbing 3-5 steps with railing: Total Basic Mobility - Total Score: 13 Tinetti Sitting Balance: Steady, safe Arises: Unable without help Attempts to Arise: Unable without help Immediate Standing Balance (First 5 Seconds): Unsteady (Swaggers, moves feet, trunk sway) Standing Balance: Unsteady Nudged: Begins to fall Eyes Closed: Unsteady Turned 360 Degrees: Steadiness: Unsteady (Grabs, staggers) Turned 360 Degrees: Continuity of Steps: Discontinuous steps Sitting Down: Unsafe (Misjudges distance, falls into chair) Balance Score: 1 Initiation of Gait: Any hesitancy or multiple attempts to start Step Height: R Swing Foot: Right foot does not clear floor completely with step Step Length: R Swing Foot: Does not pass left stance foot with step Step Height: L Swing Foot: Left foot does not clear floor completely with step Step Length: L Swing Foot: Does not pass right stance foot with step Step Symmetry: Right and left step length not equal (Estimate) Step Continuity: Stopping or discontinuity between steps Path: Marked deviation Trunk: Marked sway or uses walking aid Walking Time: Heels apart Gait Score: 0 Total Score: 1 Education Documentation Precautions, taught by Carlos Peacock PT at 06/16/2025 12:09 PM. Learner: Patient Readiness: Acceptance Method: Explanation Response: Needs Reinforcement Comment: POC review, Body Mechanics, taught by Carlos Peacock PT at 06/16/2025 12:09 PM. Learner: Patient Readiness: Acceptance Method: Explanation Response: Needs Reinforcement Comment: POC review, Home Exercise Program, taught by Carlos Peacock PT at 06/16/2025 12:09 PM. Learner: Patient Readiness: Acceptance Method: Explanation Response: Needs Reinforcement Comment: POC review, Mobility Training, taught by Carlos Peacock PT at 06/16/2025 12:09 PM. Learner: Patient Readiness: Acceptance Method: Explanation Response: Needs Reinforcement Comment: POC review, Education Comments No comments found. OP EDUCATION: Encounter Problems Encounter Problems (Active) PT Problem Patient is able to ambulate 150 feet without loss of balance requiring contact guard or less assist (Progressing) Start: 06/12/25 Expected End: 06/26/25 Patient able to transfer from supine to sitting edge of bed requiring contact guard assist or less (Progressing) Start: 06/12/25 Expected End: 06/26/25 Patient is able to transfer from bed to recliner/commode requiring contact guard or less assist (Progressing) Start: 06/12/25 Expected End: 06/26/25 Patient is able to ascend 3 stairs without loss of balance requiring contact guard or less assist (Progressing) Start: 06/12/25 Expected End: 06/26/25 Assessment: Patient is progressing Well with therapy this date. Patient able to complete multiple standing and gait trials this date. Improved bed mobility with increased time for completion, responded well to verbal cues. Continues to have flexed posture and ambulating posterior to walker despite frequent verbal and tactile cues each trial. No LOB however with short distance ambulation and assist required, completed c chair follows. Patient remains appropriate for MOD intensity therapy when medically appropriate for discharge from acute stay. Will continue to follow. 06/16/25 at 12:10 PM Carlos Peacock PT Rehab Office: [phone] [1] dextrose 5%-0.45 % sodium chloride, 75 mL/hr, Last Rate: 75 mL/hr (06/16/25 0107) 06/16/25 1046 Discharge Planning Living Arrangements Spouse/significant other Support Systems Spouse/significant other;Family members Type of Residence Private residence Home or Post Acute Services In home services Type of Home Care Services DME or oxygen (Clinical Specialites) [facility], an [place], [place] [phone] will delivery supplies to the bedside, but request that RN does bedside teaching prior to discharge. 06/16/2025. Patient has agreed to skilled placement. [facility] [phone] is the [facility]. Supporting clinicals submitted waiting for acceptance. Patient doesn't require a pre cert. 06/16/2025@ 16:52. Patient [facility] and [facility] unable to accept patient due to bed availability. [facility] is able to accept patient- Significant other gave this choice, but wanted this TCC to reach out to son. Met with patient who didn't want this TCC to reach out to son and would like to go to [facility]. Patient not medically ready for discharge due to the inability to tolerate enteral nutrition. Vj Myers is a 55 y.o. female on day 4 of admission presenting with Tracheoesophageal fistula. Subjective No significant events overnight Unable to tolerate tube feeds yesterday - high residual/emesis , oxygenating well overnight on trach collar Objective Physical Exam Vitals reviewed. Constitutional: General: She is not in acute distress. Comments: Pale and fatigued female resting in the bed, in NAD on exam , cooperative , follow commands Cardiovascular: Rate and Rhythm: Normal rate and regular rhythm. Comments: Telemetry with NSR Pulmonary: Effort: Pulmonary effort is normal. No respiratory distress. Comments: Open stoma, not cannulated, covered with mesh No accessory muscle use Oxygenating well on trach collar Abdominal: General: There is no distension. Palpations: Abdomen is soft. Tenderness: There is no abdominal tenderness. Comments: Large, soft, appropriately tender to touch Normoactive BS + flatus and BM yesterday PEG in place, site dry and clean, capped Genitourinary: Comments: Voiding via external catheter Skin: General: Skin is warm and dry. Neurological: General: No focal deficit present. Mental Status: She is alert and oriented to person, place, and time. Psychiatric: Thought Content: Thought content normal. Last Recorded Vitals Blood pressure 141/89, pulse 88, temperature 36.9 C (98.4 F), temperature source Temporal, resp. rate 18, height 1.6 m (5' 2.99), weight 95.3 kg (210 lb), SpO2 95%. Intake/Output last 3 Shifts: I/O last 3 completed shifts: In: 1397.5 (14.7 mL/kg) [I.V.:1142.5 (12 mL/kg); NG/GT:255] Out: 2700 (28.3 mL/kg) [Urine:2500 (0.7 mL/kg/hr); Emesis/NG output:200] Weight: 95.3 kg Relevant Results Scheduled medications Scheduled Medications[1] Continuous medications Continuous Medications[2] PRN medications PRN Medications[3] Results for orders placed or performed during the hospital encounter of 06/12/25 (from the past 24 hours) POCT GLUCOSE Result Value Ref Range POCT Glucose 101 (H) 74 - 99 mg/dL POCT GLUCOSE Result Value Ref Range POCT Glucose 108 (H) 74 - 99 mg/dL POCT GLUCOSE Result Value Ref Range POCT Glucose 114 (H) 74 - 99 mg/dL POCT GLUCOSE Result Value Ref Range POCT Glucose 102 (H) 74 - 99 mg/dL POCT GLUCOSE Result Value Ref Range POCT Glucose 105 (H) 74 - 99 mg/dL Basic metabolic panel Result Value Ref Range Glucose 85 74 - 99 mg/dL Sodium 137 136 - 145 mmol/L Potassium 3.6 3.5 - 5.3 mmol/L Chloride 100 98 - 107 mmol/L Bicarbonate 29 21 - 32 mmol/L Anion Gap 12 10 - 20 mmol/L Urea Nitrogen 6 6 - 23 mg/dL Creatinine 0.68 0.50 - 1.05 mg/dL eGFR >90 >60 mL/min/1.73m*2 Calcium 8.1 (L) 8.6 - 10.6 mg/dL Magnesium Result Value Ref Range Magnesium 2.14 1.60 - 2.40 mg/dL CBC Result Value Ref Range WBC 7.9 4.4 - 11.3 x10*3/uL nRBC 0.0 0.0 - 0.0 /100 WBCs RBC 3.12 (L) 4.00 - 5.20 x10*6/uL Hemoglobin 9.8 (L) 12.0 - 16.0 g/dL Hematocrit 32.4 (L) 36.0 - 46.0 % MCV 104 (H) 80 - 100 fL MCH 31.4 26.0 - 34.0 pg MCHC 30.2 (L) 32.0 - 36.0 g/dL RDW 17.6 (H) 11.5 - 14.5 % Platelets 178 150 - 450 x10*3/uL POCT GLUCOSE Result Value Ref Range POCT Glucose 92 74 - 99 mg/dL XR chest 1 view 06/15/2025 Narrative Interpreted By: Juliette Macias, and Bethany Garcia STUDY: XR CHEST 1 VIEW; 06/15/2025 8:34 am INDICATION: Signs/Symptoms:esophageal stent for TEF. hx total laryngectomy. COMPARISON: XR CHEST 1 VIEW 06/12/2025, CT CHEST W IV CONTRAST 06/10/2025 ACCESSION NUMBER(S): [id number] ORDERING CLINICIAN: REMI JENKINS FINDINGS: AP radiograph of the chest was provided. There is stable positioning of a esophageal stent. Interval decannulation. Interval removal of right internal jugular approach center venous catheter. CARDIOMEDIASTINAL SILHOUETTE: Cardiomediastinal silhouette is normal in size and configuration. LUNGS: There is blunting of the bilateral costophrenic angles. There are hazy opacities bilaterally. No pneumothorax. ABDOMEN: No remarkable upper abdominal findings. BONES: No acute osseous changes. Impression 1. Moderate bilateral pleural effusions with bilateral hazy opacities, which may represent pulmonary edema or atelectasis, with a superimposed consolidative infection not excluded. 2. Interval decannulation of tracheostomy. Stable positioning of esophageal stent. I personally reviewed the images/study and I agree with the findings as stated by Jose Sims MD, PGY-2 this study was interpreted at [facility], [place], [place]. MACRO: None Signed by: Juliette Gerard 06/15/2025 12:29 PM Dictation workstation: [id number] 06/16/25 CXR Esophageal stent in unchanged position, bilateral basilar opacifications Assessment & Plan Tracheoesophageal fistula Vj Myers is a 55 y.o. 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 Was septic on arrival which was ultimately attributed to aspiration pneumonia/pneumonitis secondary to remote surgical TEF. Patient is now s/p EGD w/ esophageal stent placement, PEG tube placement and bronchoscopy 06/12 w/ Dr. Thomas. Patient decannulated 06/13, she is at risk for erosion between her trach tube and her new stent. Patient unable to speak with esophageal stent in place. Oxygenating well on trach collar. 06/15 unable to tolerated enteral feeds - layne residual/emesis, started on Reglan, NPO, IVF's Plan: NEURO: History of anxiety and alcohol use (>1 pint of liquor every day). Alcohol level of 0 on arrival to OSH, was on previously on precedex gtt for alcohol withdrawal. - Ongoing neuro and pain assessments - Scheduled Acetaminophen via PEG and Oxycodone as needed for pain, monitor effectiveness and adjust dose as needed - PT/OT following - IV thiamine 100 mg - Home meds: ? Citalopram 20 mg , Sertraline 50 mg , Folic acid 1 mg , resume home Zoloft and continue Folic Acid -Bowel regimen -Encourage OOB/ambulation CV: HTN, HLD. Nuclear stress 05/30/2022 negative for inducible ischemia, LV EF 62%. Previously requiring levophed at OSH 2/2 septic shock, since resolved. Hemodynamically stable, off pressors. Soft pressure, NSR on telemetry. 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 Hospitalized in Oct 2023 for PNA requiring placement of tracheostomy through her stoma for ventilatory support. Bronchoscopy on 06/07 with copious amounts of food and secretions. - Maintain open tracheal stoma, no tubes in trachea. Plan to send home with open stoma. - ENT consulted per ICU respiratory therapy recommendations for stoma protection -> placed mepilex over stoma - Wean FiO2 as tolerated, currently on trach collar at 6 LPM - Additional pulm toilet prn. GI: GERD on omeprazole. S/p esophageal stent and PEG placement 06/13 -Esophageal stent: will keep esophageal stent for at least 6 weeks - Unable to tolerate enteral feeds yesterday, added Reglan, plan to change formula per aws architect recommendations today, if still unable to tolerate enteral feeds will proceed with j-tube extension (IR consulted) -Ok to administer medications via PEG -IVFs hydration until adequate enteral intake - Strict NPO - PPI for GI prophylaxis : No history of renal disease. Baseline creatinine 0.8-1. - Volume resuscitation as needed - Check renal function panel as needed. Creatinine 0.68 today - Replete electrolytes to goal HEME: Macrocytic anemia. - CBC daily - SCDs and SQH for DVT prophylaxis - Ongoing monitoring for s/s bleeding ENDO: Hypothyroidism. - Dextrose 5% infusion while NPO/limited intake - Endocrinology consult for mgmt of hypothyroidism. Appreciate recs: Recommendations: Continue tablet levothyroxine 150 mcg daily via PEG tube while inpatient Keep home liothyronine on hold We recommend holding tube feeds 1 hour before giving levothyroxine and 1 hour after administration of levothyroxine to aid adequate absorption. Plan to repeat TFTs on 06/15/2025 Discharge recommendations: Patient to be discharged on tablet levothyroxine 137 mcg daily, patient educated to hold tube feeds 1 hour before and after levothyroxine administration Patient wants to continue liothyronine at home. Okay to continue tablet liothyronine 5 mcg daily upon discharge Plan to repeat TFTs in 6 weeks upon discharge with PCP. - BG monitoring with Lispro S/S per protocol - Home meds: Synthroid 137 mcg, Liothyronine 5 mcg ID: Afebrile, no leukocytosis. Patient initially started on IV vanc/zosyn at OSH for septic shock requiring pressor support. Blood cxs neg, urine cx contaminated. Initially suspected sepsis secondary to UTI with CT CAP on 06/05 showing gas in the anterior bladder consistent with emphysematous cystitis. Also c/f aspiration pneumonia vs pneumonitis given dysphagia and TEF. Sputum culture not performed d/t significant salivary contamination. Afebrile, no leukocytosis - Temp q4h, WBC daily - Completed ATB 06/14 - Ongoing monitoring for s/s infection Disposition: -Plan to discharge patient to SNF once medically stable, will await PT/OT re evaluation, she will need enteral feeds and trach supply Patient seen by this provider and discussed with Dr. Thomas. Reyna Rowell APRN-[employer]ENTICE Thoracic and Esophageal Surgery [id number] [1] carvedilol, 6.25 mg, g-tube, BID folic acid, 1 mg, g-tube, Daily heparin (porcine), 5,000 Units, subcutaneous, q8h insulin lispro, 0-5 Units, subcutaneous, q4h [START ON 06/17/2025] levothyroxine, 150 mcg, g-tube, Daily metoclopramide, 10 mg, intravenous, q8h multivitamin with minerals, 1 tablet, oral, Daily pantoprazole, 40 mg, intravenous, Daily sertraline, 50 mg, g-tube, Daily thiamine, 100 mg, oral, Daily [2] dextrose 5%-0.45 % sodium chloride, 75 mL/hr, Last Rate: 75 mL/hr (06/16/25 0107) [3] PRN medications: alteplase, dextrose, dextrose, glucagon, glucagon, oxyCODONE, oxyCODONE, oxygen Vj Myers is a 55 y.o. female on day 3 of admission presenting with Tracheoesophageal fistula. Subjective NAEO. Tube feeds held yesterday for reports of worsening acid reflux-like symptoms and subsequently began regurgitating TF. No other concerns this AM, pain well-controlled though some discomfort around PEG. Remains NPO w/IVF. Objective Physical Exam Vitals reviewed. Constitutional: General: She is not in acute distress. Cardiovascular: Rate and Rhythm: Normal rate and regular rhythm. Pulmonary: Effort: Pulmonary effort is normal. No respiratory distress. Comments: Open stoma, not cannulated No accessory muscle use Abdominal: General: There is no distension. Palpations: Abdomen is soft. Tenderness: There is no abdominal tenderness. Skin: General: Skin is warm and dry. Neurological: General: No focal deficit present. Mental Status: She is alert and oriented to person, place, and time. Psychiatric: Thought Content: Thought content normal. Last Recorded Vitals Blood pressure 105/72, pulse 79, temperature 36.7 C (98.1 F), resp. rate 17, height 1.6 m (5' 2.99), weight 94.8 kg (208 lb 14.4 oz), SpO2 97%. Intake/Output last 3 Shifts: I/O last 3 completed shifts: In: 1492.5 (15.8 mL/kg) [I.V.:452.5 (4.8 mL/kg); NG/GT:640; IV Piggyback:400] Out: 1725 (18.2 mL/kg) [Urine:1725 (0.5 mL/kg/hr)] Weight: 94.8 kg Relevant Results 9.2 6.4>-----<135 29.6 138 103 7 <92 3.4 29 0.76 Ca 7.8 Phos 2.6 Mg 1.70 Medications reviewed in EPIC. Results for orders placed or performed during the hospital encounter of 06/12/25 (from the past 24 hours) POCT GLUCOSE Result Value Ref Range POCT Glucose 93 74 - 99 mg/dL POCT GLUCOSE Result Value Ref Range POCT Glucose 98 74 - 99 mg/dL POCT GLUCOSE Result Value Ref Range POCT Glucose 99 74 - 99 mg/dL POCT GLUCOSE Result Value Ref Range POCT Glucose 87 74 - 99 mg/dL POCT GLUCOSE Result Value Ref Range POCT Glucose 98 74 - 99 mg/dL Magnesium Result Value Ref Range Magnesium 1.70 1.60 - 2.40 mg/dL Renal Function Panel Result Value Ref Range Glucose 92 74 - 99 mg/dL Sodium 138 136 - 145 mmol/L Potassium 3.4 (L) 3.5 - 5.3 mmol/L Chloride 103 98 - 107 mmol/L Bicarbonate 29 21 - 32 mmol/L Anion Gap 9 (L) 10 - 20 mmol/L Urea Nitrogen 7 6 - 23 mg/dL Creatinine 0.76 0.50 - 1.05 mg/dL eGFR >90 >60 mL/min/1.73m*2 Calcium 7.8 (L) 8.6 - 10.6 mg/dL Phosphorus 2.6 2.5 - 4.9 mg/dL Albumin 2.0 (L) 3.4 - 5.0 g/dL CBC Result Value Ref Range WBC 6.4 4.4 - 11.3 x10*3/uL nRBC 0.0 0.0 - 0.0 /100 WBCs RBC 2.89 (L) 4.00 - 5.20 x10*6/uL Hemoglobin 9.2 (L) 12.0 - 16.0 g/dL Hematocrit 29.6 (L) 36.0 - 46.0 % MCV 102 (H) 80 - 100 fL MCH 31.8 26.0 - 34.0 pg MCHC 31.1 (L) 32.0 - 36.0 g/dL RDW 16.8 (H) 11.5 - 14.5 % Platelets 135 (L) 150 - 450 x10*3/uL POCT GLUCOSE Result Value Ref Range POCT Glucose 94 74 - 99 mg/dL Assessment & Plan Tracheoesophageal fistula Vj Myers is a 55 y.o. 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 Was septic on arrival which was ultimately attributed to aspiration pneumonia/pneumonitis secondary to remote surgical TEF. Patient is now s/p EGD w/ esophageal stent placement, PEG tube placement and bronchoscopy 06/12 w/ Dr. Thomas. Patient decannulated 06/13, she is at risk for erosion between her trach tube and her new stent. Patient unable to speak with esophageal stent in place. - Maintain open tracheal stoma, no tubes in trachea. Plan to send home with open stoma. - ENT consulted per ICU respiratory therapy recommendations for stoma protection -> placed mepilex over stoma - Strict NPO, ice chips for comfort. - OK to use PEG tube for medications. Given poor tolerance of TF, started reglan. D5+1/2NS @ 75 while NPO. Will trial starting TF later this AM if nausea resolved; if fails, may need conversion to PEG-J. - Patient will keep esophageal stent for at least 6 weeks - Per endocrine: patient to be discharged on levothyroxine 137 daily, holding TF 1 hours before and after administration. Continue liothyronine 5mcg daily upon discharge, and plan to repeat thyroid function tests at 6 weeks with PCP. - Plan for definitive repair at later date Dispo: Remain on LT3. Seen and discussed with Dr. Ferreira. Discussed with Dr. Thomas. Remi Jenkins APRN-[facility] Thoracic Surgery [id number] Vj Myers is a 55 y.o. female on day 3 of admission presenting with Tracheoesophageal fistula, endocrinology was consulted for chronic hypothyroidism management. Subjective No overnight concerns. Tfs on hold as he was having regurgitation. Objective Physical Exam Constitutional: NAD, obese body habitus, oxygen mask on trach site, well groomed. AOx3. Cooperative, difficulty speaking but can write. Skin/Hair: cold, dry skin. HEENT: EOMI, Anicteric scleras, No lid lag or lid retraction, Dry oral mucosa. Neck: Soft, supple. Non tender Thyroid gland palpation: non nodular, soft consistency, non tender, no bruit. Cardiovascular: RRR, no rub or murmurs. Respiratory: CTAB, no accessory muscle use. Abdomen: PEG tube in place. Soft, nontender to palpation. Extremities: Preserved peripheral pulses, No peripheral edema. Some new right lower extremity petechia and pain, the discoloration and flaky skin is not new per patient Neuro: Moving all extremities spontaneously. CN's grossly intact. Last Recorded Vitals Blood pressure 105/72, pulse 79, temperature 36.7 C (98.1 F), resp. rate 17, height 1.6 m (5' 2.99), weight 94.8 kg (208 lb 14.4 oz), SpO2 97%. Intake/Output last 3 Shifts: I/O last 3 completed shifts: In: 1492.5 (15.8 mL/kg) [I.V.:452.5 (4.8 mL/kg); NG/GT:640; IV Piggyback:400] Out: 1725 (18.2 mL/kg) [Urine:1725 (0.5 mL/kg/hr)] Weight: 94.8 kg Relevant Results Results from last 7 days Lab Units 06/15/25 0805 06/15/25 0549 06/15/25 0514 06/15/25 0035 06/14/25 1957 06/14/25 1551 06/13/25 0751 06/13/25 0515 06/12/25201306/12/25 1504 06/12/25 0347 06/12/25 0317 06/11/25 0451 POCT GLUCOSE mg/dL 94 -- 98 87 99 98 < > -- < > -- < > -- -- GLUCOSE mg/dL -- 92 -- -- -- -- -- 89 -- 93 -- 69* 79 < > = values in this interval not displayed. Lab Results Component Value Date TSH 31.99 (H) 06/12/2025 FREET4 0.63 (L) 06/12/2025 T3FREE 1.9 (L) 06/07/2025 Assessment & Plan Vj Myers is a 55 y.o. female with hx of SCC of the supraglottic region (2007, s/p chemo/rads and laryngectomy with flap/TEF), alcohol use disorder, HTN, HLD, hypothyroidism who presented to OSH in septic shock requiring pressor support thought to be secondary to UTI (CT CAP on admission w/ cystitis). During admission she was found to have TEF iso elective replacement of tracheostomy tube, She underwent EGD w/ esophageal stent placement on 06/12/25. Endocrine service is consulted for management of hypothyroidism. Of note, patient has been n.p.o. since 1 week in setting of tests. Her last levothyroxine dose of 137 mcg and liothyronine 5 mcg was on 06/06/2025. 06/12/25: TSH 32, FT4 0.63. Received LT4 125 mcg IV on 06/12/2025. Endocrine service is consulted for management of hypothyroidism. TFTs while inpatient: 06/12/25: TSH 32, FT4 0.63 06/15/25: TSH 27.38, FT4 1.12 Treatment: 06/12/25: LT4 125 mg IV 06/13/25: transitioned to PO LT4 150 mcg Recommendations: Continue tablet levothyroxine 150 mcg daily via PEG tube while inpatient Keep home liothyronine on hold We recommend holding tube feeds 1 hour before giving levothyroxine and 1 hour after administration of levothyroxine to aid adequate absorption. Plan to repeat TFTs on 06/15/2025 Discharge recommendations: Patient to be discharged on tablet levothyroxine 137 mcg daily, patient educated to hold tube feeds 1 hour before and after levothyroxine administration Patient wants to continue liothyronine at home. Okay to continue tablet liothyronine 5 mcg daily upon discharge Plan to repeat TFTs in 6 weeks upon discharge with PCP. Recommendations communicated to primary team. Please reach out incase you have any questions or concerns. The patient was seen and discussed with attending Dr. Mere George. We will sign off. Finesse Weems MD PGY-5 Endocrinology Fellow Cosigned by Mere George MD at 06/15/2025 2:04 PM EDT Associated attestation - Mere George MD - 06/15/2025 2:04 PM EDT Patient was reviewed and discussed with fellow, but seen independently. I agree with the assessment and plan as detailed in their note. Spoke with patient today about home going regimen and need to stop TF 1 hr prior to thyroid medication administration and wait for one hour to resume TF afterward. Should not take thyroid medications with other medications. She acknowledged understanding and had no further questions. Brief physical exam General: lying in bed in NAD Head and Neck: NCAT Eyes: conjunctiva not injected, anicteric Pulm: normal WOB, on 4L NC Neuro: awake, alert, answering questions appropriately Psych: mood appropriate for clinical setting FT4 1.12 TSH 27 (previously 31) Recommend continuing 150 mcg levothyroxine daily while admitted. When patient is discharged home can resume home regimen of T4 and T3. Please stop TF 1 hr before levothyroxine is given and hold TF until 1 hr after it is administered. Levothyroxine should be administered 1 hr apart from all medications and 4 hrs apart from supplements such as PO Mg, Ca, Fe. Thank you for the opportunity to care for Vj Myers. Endocrinology will sign off at this time. Please reach out with any questions or concerns. Mere George MD Speech-Language Pathology Therapy Communication Note Patient Name: Vj Myers Department: [facility] Room: [facility] Today's Date: 06/15/2025 Discipline: Speech Language Pathology Missed Visit Reason: ENFORCEMENT MANAGER department has no stoma covers. Can provided larytube with HME only. ENT provide stoma cover therefore will discontinue order. Missed Time: Attempt 06/13/25 8234 Discharge Planning Living Arrangements Spouse/significant other Support Systems Spouse/significant other;Children;Family members Type of Residence Private residence Who is requesting discharge planning? Provider Does the patient need discharge transport arranged? Yes Referral placed for enteral nutrition and home care. At this time we have no accepting DME for enteral nutrition. Patient is active with [employer] for trach Care, but they don't provide enteral nutrition. Additional referrals placed. Vj Myers is a 55 y.o. female on day 1 of admission presenting with Tracheoesophageal fistula, endocrinology was consulted for chronic hypothyroidism management. Subjective Doing better today, has PEG tube placed now. Objective Physical Exam Constitutional: NAD, obese body habitus, oxygen mask on trach site, well groomed. AOx3. Cooperative, difficulty speaking but can write. Skin/Hair: cold, dry skin. HEENT: EOMI, Anicteric scleras, No lid lag or lid retraction, Dry oral mucosa. Neck: Soft, supple. Non tender Thyroid gland palpation: non nodular, soft consistency, non tender, no bruit. Cardiovascular: RRR, no rub or murmurs. Respiratory: CTAB, no accessory muscle use. Abdomen: PEG tube in place. Soft, nontender to palpation. Extremities: Preserved peripheral pulses, No peripheral edema. Some new right lower extremity petechia and pain, the discoloration and flaky skin is not new per patient Neuro: Moving all extremities spontaneously. CN's grossly intact. Last Recorded Vitals Blood pressure 90/69, pulse 73, temperature 36 C (96.8 F), temperature source Temporal, resp. rate 11, height 1.6 m (5' 2.99), weight 89.9 kg (198 lb 3.1 oz), SpO2 100%. Intake/Output last 3 Shifts: I/O last 3 completed shifts: In: 2431.3 (27 mL/kg) [I.V.:1371.3 (15.3 mL/kg); NG/GT:60; IV Piggyback:1000] Out: 1130 (12.6 mL/kg) [Urine:1130 (0.3 mL/kg/hr)] Weight: 89.9 kg Relevant Results Results from last 7 days Lab Units 06/13/25 1133 06/13/25 0751 06/13/25 0515 06/13/25 0415 06/12/25 2345 06/12/25201306/12/25 1504 06/12/25 0347 06/12/25 0317 06/11/25 0451 06/10/25 0510 POCT GLUCOSE mg/dL 56* 81 -- 79 92 111* -- < > -- -- -- GLUCOSE mg/dL -- -- 89 -- -- -- 93 -- 69* 79 83 < > = values in this interval not displayed. Lab Results Component Value Date TSH 31.99 (H) 06/12/2025 FREET4 0.63 (L) 06/12/2025 T3FREE 1.9 (L) 06/07/2025 Assessment & Plan Vj Myers is a 55 y.o. female with hx of SCC of the supraglottic region (2007, s/p chemo/rads and laryngectomy with flap/TEF), alcohol use disorder, HTN, HLD, hypothyroidism who presented to OSH in septic shock requiring pressor support thought to be secondary to UTI (CT CAP on admission w/ cystitis). During admission she was found to have TEF iso elective replacement of tracheostomy tube, She underwent EGD w/ esophageal stent placement on 06/12/25. Endocrine service is consulted for management of hypothyroidism. Of note, patient has been n.p.o. since 1 week in setting of tests. Her last levothyroxine dose of 137 mcg and liothyronine 5 mcg was on 06/06/2025. 06/12/25: TSH 32, FT4 0.63. Received LT4 125 mcg IV on 06/12/2025. Endocrine service is consulted for management of hypothyroidism. Recommendations: Continue tablet levothyroxine 150 mcg daily via PEG tube while inpatient Keep home liothyronine on hold We recommend holding tube feeds 1 hour before giving levothyroxine and 1 hour after administration of levothyroxine to aid adequate absorption. Plan to repeat TFTs on 06/15/2025 Discharge recommendations: Patient to be discharged on tablet levothyroxine 137 mcg daily, patient educated to hold tube feeds 1 hour before and after levothyroxine administration Patient wants to continue liothyronine at home. Okay to continue tablet liothyronine 5 mcg daily upon discharge Plan to repeat TFTs in 6 weeks upon discharge with PCP. Recommendations communicated to primary team. Please reach out incase you have any questions or concerns. The patient was seen and discussed with attending Dr. Mere Urrutia MD Endocrinology fellow Chetan Merchant MD Cosigned by Mere George MD at 06/13/2025 9:36 PM EDT Associated attestation - Mere George MD - 06/13/2025 9:36 PM EDT I saw and evaluated the patient. I personally obtained the campos and critical portions of the history and physical exam or was physically present for campos and critical portions performed by the resident/fellow. I reviewed the resident/fellow's documentation and discussed the patient with the resident/fellow. I agree with the resident/fellow's medical decision making as documented in the note. Vj Myers is a 55 y.o. female on day 1 of admission presenting with Tracheoesophageal fistula. Subjective NAEO. POD1 from EGD w/ esophageal stent placement, PEG tube placement and bronchoscopy. Pain is well managed, the majority is at the site of her tracheostomy. Is unable to speak but can use a whiteboard to write. Notes she is hungry and wants to eat food. Notes she had a speaking valve from [employer] prior to the trach. Reports back pain but no CP or SOB. Objective Physical Exam Vitals reviewed. Constitutional: General: She is not in acute distress. Cardiovascular: Rate and Rhythm: Normal rate and regular rhythm. Pulmonary: Effort: Pulmonary effort is normal. No respiratory distress. Comments: Tracheostomy with size 8 [place]iley on supplemental oxygen No accessory muscle use Abdominal: General: There is no distension. Palpations: Abdomen is soft. Tenderness: There is no abdominal tenderness. Skin: General: Skin is warm and dry. Neurological: General: No focal deficit present. Mental Status: She is alert and oriented to person, place, and time. Psychiatric: Thought Content: Thought content normal. Last Recorded Vitals Blood pressure 80/62, pulse 68, temperature 36.2 C (97.2 F), temperature source Temporal, resp. rate 11, height 1.6 m (5' 2.99), weight 89.9 kg (198 lb 3.1 oz), SpO2 100%. Intake/Output last 3 Shifts: I/O last 3 completed shifts: In: 2431.3 (27 mL/kg) [I.V.:1371.3 (15.3 mL/kg); NG/GT:60; IV Piggyback:1000] Out: 1130 (12.6 mL/kg) [Urine:1130 (0.3 mL/kg/hr)] Weight: 89.9 kg Relevant Results Scheduled medications Scheduled Medications[1] Continuous medications Continuous Medications[2] PRN medications PRN Medications[3] Results for orders placed or performed during the hospital encounter of 06/12/25 (from the past 24 hours) POCT GLUCOSE Result Value Ref Range POCT Glucose 55 (L) 74 - 99 mg/dL POCT GLUCOSE Result Value Ref Range POCT Glucose 51 (L) 74 - 99 mg/dL POCT GLUCOSE Result Value Ref Range POCT Glucose 61 (L) 74 - 99 mg/dL POCT GLUCOSE Result Value Ref Range POCT Glucose 60 (L) 74 - 99 mg/dL POCT GLUCOSE Result Value Ref Range POCT Glucose 54 (L) 74 - 99 mg/dL Blood Gas Arterial Full Panel Result Value Ref Range POCT pH, Arterial POCT pCO2, Arterial POCT pO2, Arterial POCT SO2, Arterial POCT Oxy Hemoglobin, Arterial POCT Hematocrit Calculated, Arterial POCT Sodium, Arterial POCT Potassium, Arterial POCT Chloride, Arterial POCT Ionized Calcium, Arterial POCT Glucose, Arterial POCT Lactate, Arterial POCT Base Excess, Arterial POCT HCO3 Calculated, Arterial POCT Hemoglobin, Arterial POCT Anion Gap, Arterial Patient Temperature 37.0 degrees Celsius FiO2 48 % POCT GLUCOSE Result Value Ref Range POCT Glucose 74 74 - 99 mg/dL Renal Function Panel Result Value Ref Range Glucose 93 74 - 99 mg/dL Sodium 140 136 - 145 mmol/L Potassium 3.9 3.5 - 5.3 mmol/L Chloride 103 98 - 107 mmol/L Bicarbonate 27 21 - 32 mmol/L Anion Gap 14 10 - 20 mmol/L Urea Nitrogen 9 6 - 23 mg/dL Creatinine 0.85 0.50 - 1.05 mg/dL eGFR 81 >60 mL/min/1.73m*2 Calcium 7.8 (L) 8.6 - 10.6 mg/dL Phosphorus 3.3 2.5 - 4.9 mg/dL Albumin 2.3 (L) 3.4 - 5.0 g/dL Magnesium Result Value Ref Range Magnesium 2.54 (H) 1.60 - 2.40 mg/dL CBC Result Value Ref Range WBC 6.5 4.4 - 11.3 x10*3/uL nRBC 0.0 0.0 - 0.0 /100 WBCs RBC 2.99 (L) 4.00 - 5.20 x10*6/uL Hemoglobin 9.5 (L) 12.0 - 16.0 g/dL Hematocrit 30.8 (L) 36.0 - 46.0 % MCV 103 (H) 80 - 100 fL MCH 31.8 26.0 - 34.0 pg MCHC 30.8 (L) 32.0 - 36.0 g/dL RDW 17.6 (H) 11.5 - 14.5 % Platelets 149 (L) 150 - 450 x10*3/uL Calcium, Ionized Result Value Ref Range POCT Calcium, Ionized 1.14 1.1 - 1.33 mmol/L Blood Gas Arterial Full Panel Result Value Ref Range POCT pH, Arterial POCT pCO2, Arterial POCT pO2, Arterial POCT SO2, Arterial POCT Oxy Hemoglobin, Arterial POCT Hematocrit Calculated, Arterial POCT Sodium, Arterial POCT Potassium, Arterial POCT Chloride, Arterial POCT Ionized Calcium, Arterial POCT Glucose, Arterial POCT Lactate, Arterial POCT Base Excess, Arterial POCT HCO3 Calculated, Arterial POCT Hemoglobin, Arterial POCT Anion Gap, Arterial Patient Temperature 37.0 degrees Celsius FiO2 44 % POCT GLUCOSE Result Value Ref Range POCT Glucose 111 (H) 74 - 99 mg/dL POCT GLUCOSE Result Value Ref Range POCT Glucose 92 74 - 99 mg/dL POCT GLUCOSE Result Value Ref Range POCT Glucose 79 74 - 99 mg/dL Vitamin B12 Result Value Ref Range Vitamin B12 1,069 (H) 211 - 911 pg/mL Folate Result Value Ref Range Folate, Serum 8.0 >5.0 ng/mL Calcium, Ionized Result Value Ref Range POCT Calcium, Ionized 1.16 1.1 - 1.33 mmol/L CBC Result Value Ref Range WBC 8.2 4.4 - 11.3 x10*3/uL nRBC 0.0 0.0 - 0.0 /100 WBCs RBC 2.80 (L) 4.00 - 5.20 x10*6/uL Hemoglobin 8.6 (L) 12.0 - 16.0 g/dL Hematocrit 28.8 (L) 36.0 - 46.0 % MCV 103 (H) 80 - 100 fL MCH 30.7 26.0 - 34.0 pg MCHC 29.9 (L) 32.0 - 36.0 g/dL RDW 17.1 (H) 11.5 - 14.5 % Platelets 167 150 - 450 x10*3/uL Coagulation Screen Result Value Ref Range Protime 12.5 (H) 9.8 - 12.4 seconds INR 1.1 0.9 - 1.1 aPTT 35 26 - 36 seconds Magnesium Result Value Ref Range Magnesium 2.07 1.60 - 2.40 mg/dL Renal Function Panel Result Value Ref Range Glucose 89 74 - 99 mg/dL Sodium 137 136 - 145 mmol/L Potassium 4.0 3.5 - 5.3 mmol/L Chloride 101 98 - 107 mmol/L Bicarbonate 29 21 - 32 mmol/L Anion Gap 11 10 - 20 mmol/L Urea Nitrogen 8 6 - 23 mg/dL Creatinine 0.84 0.50 - 1.05 mg/dL eGFR 82 >60 mL/min/1.73m*2 Calcium 7.6 (L) 8.6 - 10.6 mg/dL Phosphorus 3.7 2.5 - 4.9 mg/dL Albumin 2.0 (L) 3.4 - 5.0 g/dL POCT GLUCOSE Result Value Ref Range POCT Glucose 81 74 - 99 mg/dL Assessment & Plan Tracheoesophageal fistula Vj Myers is a 55 y.o. 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 Was septic on arrival which was ultimately attributed to aspiration pneumonia/pneumonitis secondary to remote surgical TEF. Patient is now s/p EGD w/ esophageal stent placement, PEG tube placement and bronchoscopy 06/12 w/ Dr. Thomas. Patient decannulated 06/13, she is at risk for erosion between her trach tube and her new stent. Patient unable to speak with esophageal stent in place. - Maintain open tracheal stoma, no tubes in trachea. Plan to send home with open stoma. - ENT consulted per ICU respiratory therapy recommendations for stoma protection - Strict NPO, ice chips for comfort - OK to use PEG tube for medications, start trickle TF today - Patient will keep esophageal stent for at least 6 weeks - Plan for definitive repair at later date Dispo: Ok to transfer to LT3 now that patient is decannulated Discussed with Dr. Thomas. Maria Ines Woodson MD PGY2 Thoracic Surgery [id number] [1] acetaminophen, 1,000 mg, intravenous, q6h carvedilol, 6.25 mg, g-tube, BID folic acid, 1 mg, g-tube, Daily heparin (porcine), 5,000 Units, subcutaneous, q8h insulin lispro, 0-5 Units, subcutaneous, q4h levothyroxine, 100 mcg, intravenous, q24h CESIA multivitamin with minerals, 1 tablet, oral, Daily pantoprazole, 40 mg, intravenous, Daily piperacillin-tazobactam, 4.5 g, intravenous, q6h [START ON 06/15/2025] thiamine, 100 mg, oral, Daily thiamine, 100 mg, intravenous, Daily [2] dextrose 5 % and lactated Ringer's, 75 mL/hr, Last Rate: 75 mL/hr (06/13/25 0700) [3] PRN medications: alteplase, calcium gluconate, calcium gluconate, dextrose, dextrose, glucagon, glucagon, HYDROmorphone, magnesium sulfate, magnesium sulfate, methocarbamol, oxyCODONE, oxygen, potassium chloride Cosigned by Huma Thomas DO at 06/15/2025 8:57 AM EDT Associated attestation - Huma Thomas DO - 06/15/2025 8:57 AM EDT I saw and evaluated the patient. I personally obtained the campos and critical portions of the history and physical exam or was physically present for campos and critical portions performed by the resident/fellow. I reviewed the resident/fellow's documentation and discussed the patient with the resident/fellow. The patient/family had the opportunity to discuss and ask questions. I agree with the resident/fellow's medical decision making as documented in the note. No significant events overnight, starting tube feeds, discussed with patient again the importance of n.p.o. to limit any flow through TEF. Of note, patient did have TEP at the time of her initial surgery, however given the size of defect seen on endoscopy yesterday and her issues with aspiration this is obviously going to require more thorough intervention. Will work to transfer out of ICU later today if she remains stable. I spent 35 minutes in the critical, professional and overall care of this patient. Plan: - angalgesia with IV tylenol and hydromorph - PRN phenobarb with taper if needed but likely outside window of DT's - hold home anti-HTN meds for now - start home coreg - levothyroxine 125x1 then 100 PO daily per endo recs (TY) - TF adv to goal, PRN anti-emetics, and Bowel regimen - Current abx: zosyn empiric for aspiration - Dispo: RNF/tele Quality/Safety/Proph: - GI prophy: PPI - DVT prophy: scd and held d/t pre-OP - Central line: no longer needed and will be removed - Toro: n/a - Restraint: n/a Assessment: Neuro/MSK: EtOH use disorder , chronic pain , and MDD/anxiety A-F bundle; Sleep Hygiene measures (REST protocol): appropriate daytime stimulation/physical activity. Lights out at 2100, avoidance of night time lab draws/night baths, minimize mind altering medicaments PT/OT and OOB as appropriate CV: HTN hx and HPL - off vasoactive infusions Pulm: Respiratory failure Chronic hypoxemic and s/p laryngectomy for SCC with stoma and TEF creation; recurrent aspiration through TEF BPH with IS/flutter/OOB not vented Renal: na Trend UOP and renal indices; replete lytes PRN GI: GERD and s/p esoph stent for TEF and PEG tube ID/rheum: n/a Follow cx data: MICRO: No results found for the last 90 days. Endo: hypothyroid Start ISS if needed for BG goal <180 Last HbA1c: No results found for requested labs within last 365 days. Glucose (past 72hrs): Results from last 72 hours Lab Units 06/13/25 0515 GLUCOSE mg/dL 89 Heme: ABL anemia and Anemia of chronic disease - Trend Hb and transfuse PRN for goal Hb>7 LDA: CVC 06/07/25 Triple lumen Non-tunneled Right Internal jugular (Active) Placement Date/Time: 06/07/25 1045 Hand Hygiene Performed Prior to CVC Insertion: Yes Site Prep: Chlorhexidine Site Prep Agent has Completely Dried Before Insertion: Yes All 5 Sterile Barriers Used (Gloves, Gown, Cap, Mask, Large Sterile Drape):... Number of days: 5 Surgical Airway Shiley Cuffed 8 (Active) Placement Date/Time: 10/23/23 1130 Placed By: ICU physician Surgical Airway Type: Tracheostomy Brand: Rosendo Style: Cuffed Size (mm): 8 Number of days: 598 Gastrostomy/Enterostomy Gastrostomy 20 Fr. LUQ (Active) Placement Date/Time: 06/12/25 1344 Placed by: William MERINO Hand Hygiene Completed: Yes Type: Gastrostomy Tube Size (Fr.): 20 Fr. Location: LUQ Number of days: 0 External Urinary Catheter Female (Active) Placement Date/Time: 06/08/25 0600 Hand Hygiene Completed: Yes External Catheter Type: Female Number of days: 5 Exam: A&O x 4 NSR Adequate air-exchange Abd soft, NT Extremities warm REASON FOR ADMISSION 55 y.o. female with past medical history of SCC of the supraglottic region (2008, s/p chemo/rads and laryngectomy with flap/TEF creation for phonation with insertion of speech prothesis; current stoma without trach in place on arrival to OSH), alcohol use disorder (reportedly drinks >1 pint of liquor daily; alcohol negative on arrival to OSH), HTN, HLD, hypothyroidism who presented to an OSH after being found lying on the steps at her home minimally responsive by her son. On arrival to OSH, patient in septic shock requiring pressor support. Labs were notable for elevated lactate of 11.9, leukocytosis (16.0), hypokalemia, hypomagnesemia. Patient started on empiric vanc/zosyn. Blood cultures negative and urine culture contaminated. Sepsis initially thought to be secondary to UTI (CT CAP on admission w/ cystitis), however, patient continued to have dysphagia and respiratory distress with elective replacement of tracheostomy tube. Bedside bronchoscopy on 06/07 showed copious food and secretions in the patient's airway. A modified barium swallow was performed that confirmed TEF without precise localization in setting of tracheostomy tube in place, as well as poor swallow mechanics. CT chest on 06/10 with bilateral pleural effusions/infiltrate suspicious for aspiration pneumonia/pneumonitis secondary to remote surgical TEF. Patient was transferred [place] [facility] [place] management of chronic TEF and need for distal enteral access. TODAY'S EVENTS 06/12: admitted overnight from OSH for TEF complications and ongoing management; in chair comfy and alert 06/13: NAEO Level 3 LABS: CMP: Results from last 7 days Lab Units 06/13/25 0515 06/12/25 1504 06/12/25 0317 06/11/25 0451 06/10/25 0510 06/09/25 0419 06/08/25 0248 06/07/25 0426 SODIUM mmol/L 137 140 141 141 142 141 139 136 POTASSIUM mmol/L 4.0 3.9 4.0 4.2 3.8 3.8 3.9 4.3 CHLORIDE mmol/L 101 103 104 106 107 108* 106 104 CO2 mmol/L 29 27 28 28 29 29 27 25 ANION GAP mmol/L 11 14 13 11 10 8* 10 11 BUN mg/dL 8 9 12 11 10 9 9 11 CREATININE mg/dL 0.84 0.85 0.88 0.87 0.85 0.80 0.81 1.12* EGFR mL/min/1.73m*2 82 81 78 79 81 87 86 58* MAGNESIUM mg/dL 2.07 2.54* 1.62 1.63 1.61 1.72 1.81 1.58* ALBUMIN g/dL 2.0* 2.3* 2.1* 2.2* 2.1* 2.2* 2.2* 2.4* ALK PHOS U/L -- -- -- 144* 152* 158* 162* 151* ALT U/L -- -- -- 12 13 14 16 16 AST U/L -- -- -- 54* 70* 85* 107* 108* BILIRUBIN TOTAL mg/dL -- -- -- 0.6 0.7 0.6 0.7 0.9 CBC: Results from last 7 days Lab Units 06/13/25 0515 06/12/25 1504 06/12/25 0317 06/11/25 0451 06/10/25 0510 WBC AUTO x10*3/uL 8.2 6.5 4.9 4.5 4.6 HEMOGLOBIN g/dL 8.6* 9.5* 8.4* 7.6* 7.8* HEMATOCRIT % 28.8* 30.8* 27.7* 24.2* 24.7* PLATELETS AUTO x10*3/uL 167 149* 153 152 140* COAG: Results from last 7 days Lab Units 06/13/25 0515 06/12/25 0317 06/06/25 0930 INR 1.1 1.2* 1.2* ABO: ABO TYPE Date Value Ref Range Status 06/12/2025 O Final HEME/ENDO: Results from last 7 days Lab Units 06/12/25 0317 06/07/25 1041 FERRITIN ng/mL -- 1,094* TSH mIU/L 31.99* -- CARDIAC: No lab exists for component: CK, CKMBP Occupational Therapy Evaluation Patient Name: Vj Myers Department[place] [facility] Room: Today's Date: 06/12/2025 Time Calculation Start Time: 1021 Stop Time: 1044 Time Calculation (min): 23 min Assessment: OT Assessment: Pt presents with deficits in ADLs, IADLs, functional mobility, bed mobility, UE strength, functional activity tolerance and functional transfers. Pt would benefit from skilled OT to return to highest PLOF safely. Pt is appropraite for MOD intensity skilled OT to return to highest PLOF safely. Prognosis: Good Barriers to Discharge Home: Caregiver assistance, Physical needs Caregiver Assistance: Patient lives alone and/or does not have reliable caregiver assistance Physical Needs: 24hr mobility assistance needed, 24hr ADL assistance needed Evaluation/Treatment Tolerance: Patient tolerated treatment well Medical Staff Made Aware: Yes End of Session Communication: Bedside nurse End of Session Patient Position: Bed, 3 rail up, Alarm off, not on at start of session OT Assessment Results: Decreased ADL status, Decreased upper extremity strength, Decreased endurance, Decreased functional mobility, Decreased IADLs Prognosis: Good Evaluation/Treatment Tolerance: Patient tolerated treatment well Medical Staff Made Aware: Yes Strengths: Housing layout, Support and attitude of living partners, Ability to acquire knowledge, Living arrangement secure Barriers to Participation: Attitude of self, Coping skills, Leisure activity, Premorbid level of function Plan: Treatment Interventions: ADL retraining, Functional transfer training, UE strengthening/ROM, Endurance training, Patient/family training, Equipment evaluation/education, Fine motor coordination activities, Compensatory technique education OT Frequency: 3 times per week (During this inpatient acute hospitalization) OT Discharge Recommendations: Moderate intensity level of continued care (Based on current functional status and rehab potential, patient is anticipated to tolerate and benefit from 5 or more days per week of skilled rehabilitative therapy after discharge from this acute inpatient hospitalization.) Equipment Recommended upon Discharge: Wheeled walker OT Recommended Transfer Status: Assist of 2 OT - OK to Discharge: Yes Treatment Interventions: ADL retraining, Functional transfer training, UE strengthening/ROM, Endurance training, Patient/family training, Equipment evaluation/education, Fine motor coordination activities, Compensatory technique education Subjective Current Problem: 1. Tracheoesophageal fistula Case Request Operating Room: EGD, WITH STENT INSERTION, INSERTION, GASTROSTOMY TUBE, PERCUTANEOUS Case Request Operating Room: EGD, WITH STENT INSERTION, INSERTION, GASTROSTOMY TUBE, PERCUTANEOUS OT Visit Info: OT Received On: 06/12/25 General: General Reason for Referral: Patient found down at home on steps with minimal responsiveness. Found to be septic with PNA. CT chest on 06/10 with bilateral pleural effusions/infiltrate suspicious for aspiration pneumonia/pneumonitis secondary to remote surgical TEF. Patient was transferred [place] [facility] [place] management of chronic TEF and need for distal enteral access. Plan for EGD, stent and PEG potentially 06/12 Past Medical History Relevant to Rehab: throat cancer, anemia, hypokalemia, trach, ETOH abuse, smoker, HLD, depression Family/Caregiver Present: No Prior to Session Communication: Bedside nurse Patient Position Received: Up in chair, Alarm on Preferred Learning Style: auditory, visual, verbal General Comment: Pt in chair upon entry, agreeable to OT this date and eager to return to bed. Communicated with hand gestures, head nods, mouthing words and writing when appropriate. Trach 28%, 6L, Tele, External catether Precautions: Medical Precautions: Oxygen therapy device and L/min, Fall precautions Precautions Comment: SBP <160, Trach collar 06/12/25 1021 06/12/25 1044 Vital Signs Vitals Session Pre OT Post OT Heart Rate 96 93 Resp 19 14 SpO2 97 % 95 % BP (!) 127/95 144/90 MAP (mmHg) 104 -- Pain: Pain Assessment Pain Assessment: 0-10 0-10 (Numeric) Pain Score: 8 Pain Type: Acute pain Pain Location: Back Pain Interventions: Repositioned Response to Interventions: No change in pain Objective Cognition: Overall Cognitive Status: Within Functional Limits Arousal/Alertness: Delayed responses to stimuli Orientation Level: Oriented X4 Following Commands: Follows one step commands with increased time Safety Judgment: Good awareness of safety precautions Cognition Comments: Falt affect appreciated, able to respond appropriately to all questions. Insight: Within function limits Impulsive: Within functional limits Processing Speed: Delayed Home Living: Type of Home: House Lives With: (Family, adult son PRN) Home Adaptive Equipment: None Home Layout: One level Home Access: Stairs to enter without rails Entrance Stairs-Rails: None Entrance Stairs-Number of Steps: 1 Bathroom Shower/Tub: Tub/shower unit Bathroom Toilet: Standard Bathroom Equipment: None Home Living Comments: Per pt, has support for ADLs and IADLs but family cannot provide 24 hour support Prior Function: Level of [place]: Independent with homemaking with ambulation, Independent with ADLs and functional transfers Receives Help From: Family ADL Assistance: Independent Homemaking Assistance: Independent Ambulatory Assistance: Independent Prior Function Comments: - drives + 3 falls prior to admission IADL History: Homemaking Responsibilities: Yes ADL: Eating Assistance: Moderate (Anticipated) Grooming Assistance: Minimal (Anticipated) Bathing Assistance: Maximal (Anticipated) UE Dressing Assistance: Moderate (Anticipated) LE Dressing Assistance: Total (Anticipated) Toileting Assistance with Device: Maximal (Anticipated) Activity Tolerance: Endurance: Decreased tolerance for upright activites Early Mobility/Exercise Safety Screen: Proceed with mobilization - No exclusion criteria met Bed Mobility/Transfers: Bed Mobility 1 Bed Mobility 1: Sitting to supine Level of Assistance 1: Moderate assistance (x2) Bed Mobility Comments 1: HOB flat, use of draw sheet Transfers Transfer: Yes Transfer 1 Transfer From 1: Chair with arms to Transfer to 1: Bed Technique 1: Sit to stand, Stand to sit Transfer Device 1: Walker Transfer Level of Assistance 1: Moderate assistance Trials/Comments 1: Mod VC's for hand placement. Mod A throughout with side steps x3 towards EOB. Sitting Balance: Static Sitting Balance Static Sitting-Balance Support: Feet supported Static Sitting-Level of Assistance: Contact guard Static Sitting-Comment/Number of Minutes: x1 minute Modalities: Vision:Vision - Basic Assessment Current Vision: Does not wear glasses and Vision - Complex Assessment Tracking: Decreased smoothness of horizontal tracking Sensation: Light Touch: No apparent deficits Strength: Perception: Inattention/Neglect: Appears intact Coordination: Movements are Fluid and Coordinated: Yes Finger to Nose: Bradykinesia Rapid Alternating Movements: Dysdiadokinesia Coordination Comment: Finger to thumb opposition bradykinesia Hand Function: Extremities: RUE RUE : Exceptions to WFL RUE Strength R Shoulder Flexion: 3/5 R Shoulder Extension: 3/5 R Elbow Flexion: 3+/5 R Elbow Extension: 3+/5 R Wrist Flexion: 3+/5 R Wrist Extension: 3+/5 and LUE Strength L Shoulder Flexion: 3/5 L Shoulder Extension: 3/5 L Elbow Flexion: 3+/5 L Elbow Extension: 3+/5 L Wrist Flexion: 3+/5 L Wrist Extension: 3+/5 Outcome Measures:[facility] Daily Activity Putting on and taking off regular lower body clothing: Total Bathing (including washing, rinsing, drying): A lot Putting on and taking off regular upper body clothing: A lot Toileting, which includes using toilet, bedpan or urinal: A lot Taking care of personal grooming such as brushing teeth: A little Eating Meals: A little Daily Activity - Total Score: 13 , Confusion Assessment Method-ICU (CAM-ICU) Feature 1: Acute Onset or Fluctuating Course: Negative Feature 2: Inattention: Negative Feature 4: Disorganized Thinking: Negative Overall CAM-ICU: Negative , and Early Mobility/Exercise Safety Screen: Proceed with mobilization - No exclusion criteria met ICU Mobility Scale: Transferring bed to chair [5] Education Documentation No documentation found. Education Comments No comments found. OP EDUCATION: Goals: Encounter Problems Encounter Problems (Active) ADLs Patient will perform UB and LB bathing with minimal assist level of assistance. Start: 06/12/25 Expected End: 07/03/25 Patient with complete upper body dressing with stand by assist level of assistance donning and doffing all UE clothes with PRN adaptive equipment while edge of bed Start: 06/12/25 Expected End: 07/03/25 Patient with complete lower body dressing with minimal assist level of assistance donning and doffing all LE clothes with PRN adaptive equipment while edge of bed Start: 06/12/25 Expected End: 07/03/25 Patient will complete daily grooming tasks washing face/hair with independent level of assistance and PRN adaptive equipment while edge of bed. Start: 06/12/25 Expected End: 07/03/25 BALANCE Pt will maintain static sitting balance during ADL task with stand by assist level of assistance in order to demonstrate decreased risk of falling and improved postural control. Start: 06/12/25 Expected End: 07/03/25 TRANSFERS Patient will perform bed mobility minimal assist level of assistance in order to improve safety and independence with mobility Start: 06/12/25 Expected End: 07/03/25 Patient will complete functional transfer to chair with least restrictive device with minimal assist level of assistance. Start: 06/12/25 Expected End: 07/03/25 Completion of this session, clinical decision making, and documentation performed under the supervision/direction of Sultana Jacques OTR/L Cosigned by Sultana Jacques OT at 06/12/2025 4:19 PM EDT Patient is a readmit, with hx of ETOH use disorder. Refer to discharge planning assessment on 06/06 for social issues and information. Patient went to the OR today with thoracic. SW will continue to follow to assist with the discharge plan. [facility] Medication History Review Vj Myers is a 55 y.o. female admitted for Tracheoesophageal fistula. Pharmacy reviewed the patient's [id number] medications and allergies for accuracy. Medications ADDED: None Medications CHANGED: None Medications REMOVED: None The list below reflects the updated [employer] list. Prior to Admission Medications Prescriptions Last Dose Informant LORazepam (Ativan) 0.5 mg tablet Not Taking Sig: Take 1 tablet (0.5 mg) by mouth 2 times a day for 5 days. Patient not taking: Reported on 06/12/2025 acetaminophen (Tylenol) 325 mg tablet Self, Other Sig: Take 2 tablets (650 mg) by mouth every 4 hours if needed for moderate pain (4 - 6) or mild pain (1 - 3). amLODIPine (Norvasc) 5 mg tablet Sig: Take 1 tablet (5 mg) by mouth once daily. atorvastatin (Lipitor) 20 mg tablet Self, Other Sig: Take 1 tablet (20 mg) by mouth once daily. carvedilol (Coreg) 6.25 mg tablet Self, Other Sig: Take 1 tablet (6.25 mg) by mouth 2 times a day. citalopram (CeleXA) 20 mg tablet Sig: Take 1 tablet (20 mg) by mouth once daily. Last filled in November (30 day supply) - please note that ZOLOFT was prescribed at the same time, but neither one was cancelled from the pharmacy. disulfiram (Antabuse) 250 mg tablet Self, Other Sig: Take 2 tablets (500 mg) by mouth once daily. folic acid (Folvite) 1 mg tablet Self, Other Sig: Take 1 tablet (1 mg) by mouth once daily. furosemide (Lasix) 20 mg tablet Sig: Take 1 tablet (20 mg) by mouth once daily. ipratropium-albuteroL (Duo-Neb) 0.5-2.5 mg/3 mL nebulizer solution Self, Other Sig: Take 3 mL by nebulization 4 times a day. Patient taking differently: Take 3 mL by nebulization 4 times a day as needed. levothyroxine (Synthroid, Levoxyl) 137 mcg tablet Sig: Take 1 tablet (137 mcg) by mouth once daily. liothyronine (Cytomel) 5 mcg tablet Sig: Take 1 tablet (5 mcg) by mouth once daily. magnesium oxide (Mag-Ox) 400 mg tablet Self, Other Sig: Take 1 tablet (400 mg) by mouth 2 times a day. omeprazole (PriLOSEC) [address] capsule Sig: Take 1 capsule (40 mg) by mouth once daily. oxygen (O2) gas therapy Self, Other Sig: Inhale 1 each once every 24 hours. pregabalin (Lyrica) 100 mg capsule Self, Other Sig: Take 1 capsule (100 mg) by mouth 3 times a day. sertraline (Zoloft) 50 mg tablet Sig: Take 1 tablet (50 mg) by mouth once daily. Last filled in November (30 day supply) - please note that CELEXA was prescribed at the same time, but neither one was cancelled from the pharmacy. Facility-Administered Medications: None The list below reflects the updated allergy list. Please review each documented allergy for additional clarification and justification. Allergies Reviewed by Lindsay Lancaster, PharmD on 06/12/2025 Severity Reactions Comments Iodinated Contrast Media Not Specified Unknown Morphine Not Specified Other Adhesive Low Rash Latex Low Hives, Other, Rash Patient accepts M2B at discharge. Sources: [facility] Pharmacy dispense history Called Gustavo ([phone] )to obtain Fill History Last filled some medications for pt in MARCH for 30 day supply Patient Interview --unable to provide much detail Pt only able to confirm/deny medications Pt states that she only uses [facility] in [place] Admits to not taking any medications for a month or so and would need refills on ALL medications Chart Review Care Everywhere Additional Comments: Please note that ALL medications are overdue to be filled: either filled in November or March for 30 day supply Or not at all (please refer to [employer] med list) Please review additional comments above within med list Lindsay Lancaster PharmD Transitions of Care Pharmacist 06/12/25 Secure Chat preferred If no response call [phone] or [employer] [facility] Images from the original note were not included. Physical Therapy Physical Therapy Evaluation and Treatment Patient Name: Vj Myers Department: [facility] Room: Today's Date: 06/12/2025 Time Calculation Start Time: 850 Stop Time: 929 Time Calculation (min): 39 min Assessment/Plan PT Assessment PT Assessment Results: Decreased endurance, Impaired balance, Decreased mobility Rehab Prognosis: Fair Barriers to Discharge Home: Physical needs, Caregiver assistance Caregiver Assistance: Patient lives alone and/or does not have reliable caregiver assistance Physical Needs: Ambulating household distances limited by function/safety, Intermittent mobility assistance needed, Intermittent ADL assistance needed, High falls risk due to function or environment Evaluation/Treatment Tolerance: Patient limited by fatigue Medical Staff Made Aware: Yes Strengths: Ability to acquire knowledge, Housing layout, Premorbid level of function Barriers to Participation: Support of Caregivers, Coping skills, Comorbidities End of Session Communication: Bedside nurse Assessment Comment: MD team recommending PT/OT see patient prior to potential OR later today to mobilize and patient on board to at least get to the chair. Patient reports being independent prior to fall at home, but required substantial assistance for all mobility today. Patient does buckle slightly with each step, but did not collapse when transferring to a chair. patient would benefit from gait training with a chair follow, but ultimately declined for today. tomorrow. Moderate intensity rehab recommended at this time. PT to follow up as able and appropriate. End of Session Patient Position: Up in chair, Alarm on IP OR SWING BED PT PLAN Inpatient or Swing Bed: Inpatient PT Plan Treatment/Interventions: Bed mobility, Transfer training, Gait training, Stair training, Balance training, Neuromuscular re-education, Neurodevelopmental intervention, Strengthening, Endurance training, Range of motion, Therapeutic exercise, Therapeutic activity, Home exercise program PT Plan: Ongoing PT PT Frequency: 4 times per week (Based on current functional status and rehab potential, patient is anticipated to tolerate and benefit from 5 or more days per week of skilled rehabilitative therapy after discharge from this acute inpatient hospitalization.) PT Discharge Recommendations: Moderate intensity level of continued care Equipment Recommended upon Discharge: Wheeled walker PT Recommended Transfer Status: Assist x2, Assistive device PT - OK to Discharge: Yes Subjective PT Visit Info: PT Received On: 06/12/25 General Visit Information: General Reason for Referral: Patient found down at home on steps with minimal responsiveness. Found to be septic with PNA. CT chest on 06/10 with bilateral pleural effusions/infiltrate suspicious for aspiration pneumonia/pneumonitis secondary to remote surgical TEF. Patient was [place] [facility] [place] management of chronic TEF and need for distal enteral access. Plan for EGD, stent and PEG potentially 06/12 Past Medical History Relevant to Rehab: throat cancer, anemia, hypokalemia, trach, ETOH abuse, smoker, HLD, depression Family/Caregiver Present: No Prior to Session Communication: Bedside nurse Patient Position Received: Bed, 3 rail up, Alarm on General Comment: Patient open to working with PT using hand/facial gestures. White board in room. Home Living: Home Living Type of Home: House Lives With: (family. Son molded grid and parts inspector/PRN) Home Adaptive Equipment: None Home Layout: One level Home Access: Stairs to enter without rails Entrance Stairs-Number of Steps: 1 Home Living Comments: Has support for cooking, cleaning, laundry, and grocery shopping, but is alone a good chunk of the day Prior Level of Function: Prior Function Per Pt/Caregiver Report Level of [place]: Independent with ADLs and functional transfers, Independent with homemaking with ambulation ADL Assistance: Independent Homemaking Assistance: Independent Ambulatory Assistance: Independent Prior Function Comments: patient reports she is indep with ADLs and IADLs. Does not drive but does occasionally go to the store with family Precautions: Precautions Medical Precautions: Fall precautions Precautions Comment: SBP <160, Trach collar Date/Time Vitals Session Patient Position Pulse Resp SpO2 BP MAP (mmHg) 06/12/25 0800 -- -- 85 15 100 % 148/99 115 06/12/25 0851 Pre PT -- 90 -- 98 % 149/103 -- 06/12/25 0900 -- -- 95 17 95 % 140/108 119 06/12/25 0930 Post PT -- 95 -- 94 % 148/110 -- Treatments: Please see Functional Assessment for specifics regarding treatment during this evaluation. Patient given education on how to safely mobilize with regard to equipment and precautions. Extra repetitions and cuing given to maximize independence. Patient given knee extension/heel slide HEP to perform 10 reps every 30 minutes. Patient on board. Objective Pain: Pain Assessment Pain Assessment: 0-10 0-10 (Numeric) Pain Score: 8 Pain Type: Chronic pain Pain Location: Back Pain Interventions: Repositioned, Ambulation/increased activity Cognition: General Assessments: Activity Tolerance Endurance: Decreased tolerance for upright activites Sensation Light Touch: No apparent deficits Strength Strength Comments: Able to extend knees almost throughout full ROM to gravity. Able to lift legs off of the bed Strength Strength Comments: Able to extend knees almost throughout full ROM to gravity. Able to lift legs off of the bed Perception Inattention/Neglect: Appears intact Coordination Movements are Fluid and Coordinated: Yes Postural Control Postural Control: Within Functional Limits Static Sitting Balance Static Sitting-Balance Support: Feet supported, Bilateral upper extremity supported Static Sitting-Level of Assistance: Moderate assistance Static Sitting-Comment/Number of Minutes: Posterior instability edge of bed with bilateral UE support Static Standing Balance Static Standing-Balance Support: Bilateral upper extremity supported Static Standing-Level of Assistance: Moderate assistance Functional Assessments: Bed Mobility 1 Bed Mobility 1: Supine to sitting Level of Assistance 1: Moderate assistance Bed Mobility Comments 1: good with legs, needs modA for torso to sit up. Transfer 1 Transfer From 1: Sit to, Stand to Transfer to 1: Sit, Stand Technique 1: Sit to stand, Stand to sit Transfer Device 1: Walker Transfer Level of Assistance 1: Moderate assistance Trials/Comments 1: slow. Nearly Radha to stand. Starts to buckle slightly ~5 seconds into stand Transfers 2 Transfer From 2: Bed to Transfer to 2: Chair with arms Technique 2: Lateral Transfer Device 2: Walker Transfer Level of Assistance 2: Moderate assistance Trials/Comments 2: Took steps to chair. Slightly isai with each step. Does not collapse with buckle Ambulation/Gait Training Ambulation/Gait Training Performed: No (5 steps to chair. Refused walking in helm with recliner follow. tomorrow) Extremity/Trunk Assessments: RLE RLE : Within Functional Limits LLE LLE : Within Functional Limits Outcome Measures: [facility] Basic Mobility Turning from your back to your side while in a flat bed without using bedrails: A lot Moving from lying on your back to sitting on the side of a flat bed without using bedrails: A lot Moving to and from bed to chair (including a wheelchair): A lot Standing up from a chair using your arms (e.g. wheelchair or bedside chair): A lot To walk in hospital room: Total Climbing 3-5 steps with railing: Total Basic Mobility - Total Score: 10 FSS-ICU Ambulation: Walks <50 feet with any assistance x1 or walks any distance with assistance x2 people Rolling: Moderate assistance (performs 50 - 74% of task) Sitting: Moderate assistance (performs 50 - 74% of task) Transfer [id number]: Moderate assistance (performs 50 - 74% of task) Transfer [id number]: Moderate assistance (performs 50 - 74% of task) Total Score: 13 ICU Mobility Scale: Transferring bed to chair [5] Encounter Problems Encounter Problems (Active) PT Problem Patient is able to ambulate 150 feet without loss of balance requiring contact guard or less assist (Progressing) Start: 06/12/25 Expected End: 06/26/25 Patient able to transfer from supine to sitting edge of bed requiring contact guard assist or less (Progressing) Start: 06/12/25 Expected End: 06/26/25 Patient is able to transfer from bed to recliner/commode requiring contact guard or less assist (Progressing) Start: 06/12/25 Expected End: 06/26/25 Patient is able to ascend 3 stairs without loss of balance requiring contact guard or less assist (Not Progressing) Start: 06/12/25 Expected End: 06/26/25 Education Documentation Precautions, taught by Talib Kearns PT at 06/12/2025 9:55 AM. Learner: Patient Readiness: Acceptance Method: Demonstration, Explanation Response: Needs Reinforcement, Demonstrated Understanding Comment: Goals of PT, safety with mobility Body Mechanics, taught by Talib Kearns PT at 06/12/2025 9:55 AM. Learner: Patient Readiness: Acceptance Method: Demonstration, Explanation Response: Needs Reinforcement, Demonstrated Understanding Comment: Goals of PT, safety with mobility Home Exercise Program, taught by Talib Kearns PT at 06/12/2025 9:55 AM. Learner: Patient Readiness: Acceptance Method: Demonstration, Explanation Response: Needs Reinforcement, Demonstrated Understanding Comment: Goals of PT, safety with mobility Mobility Training, taught by Talib Kearns PT at 06/12/2025 9:55 AM. Learner: Patient Readiness: Acceptance Method: Demonstration, Explanation Response: Needs Reinforcement, Demonstrated Understanding Comment: Goals of PT, safety with mobility Education Comments No comments found. Plan: - OR today for EGD, esophageal stent, trach rev - angalgesia with IV tylenol - discontinue CIWA; PRN phenobarb with taper if needed but likely outside window of DT's - hold home anti-HTN meds for now - levothyroxine 125mcg IV x1; endo consult - start IVF d5LR at 100cc/hr - NPO x sips/chips, PRN anti-emetics, and Bowel regimen - Current abx: empiric for aspiration - Dispo: RNF/tele - to PACU following OR Quality/Safety/Proph: - GI prophy: PPI - DVT prophy: scd and held d/t pre-OP - Central line: n/a - Toro: n/a - Restraint: n/a Assessment: Neuro/MSK: EtOH use disorder , chronic pain , and MDD/anxiety A-F bundle; Sleep Hygiene measures (REST protocol): appropriate daytime stimulation/physical activity. Lights out at 2100, avoidance of night time lab draws/night baths, minimize mind altering medicaments PT/OT and OOB as appropriate CV: HTN hx and HPL - off vasoactive infusions Pulm: Respiratory failure Chronic hypoxemic and s/p laryngectomy for SCC with stoma and TEF creation; recurrent aspiration through TEF BPH with IS/flutter/OOB not vented Renal: na Trend UOP and renal indices; replete lytes PRN GI: GERD ID/rheum: n/a Follow cx data: MICRO: No results found for the last 90 days. Endo: hypothyroid Start ISS if needed for BG goal <180 Last HbA1c: No results found for requested labs within last 365 days. Glucose (past 72hrs): Results from last 72 hours Lab Units 06/12/25 0317 GLUCOSE mg/dL 69* Heme: ABL anemia and Anemia of chronic disease - Trend Hb and transfuse PRN for goal Hb>7 LDA: CVC 06/07/25 Triple lumen Non-tunneled Right Internal jugular (Active) Placement Date/Time: 06/07/25 1045 Hand Hygiene Performed Prior to CVC Insertion: Yes Site Prep: Chlorhexidine Site Prep Agent has Completely Dried Before Insertion: Yes All 5 Sterile Barriers Used (Gloves, Gown, Cap, Mask, Large Sterile Drape):... Number of days: 4 Surgical Airway Shiley Cuffed 8 (Active) Placement Date/Time: 10/23/23 1130 Placed By: ICU physician Surgical Airway Type: Tracheostomy Brand: Shiley Style: Cuffed Size (mm): 8 Number of days: 597 External Urinary Catheter Female (Active) Placement Date/Time: 06/08/25 0600 Hand Hygiene Completed: Yes External Catheter Type: Female Number of days: 4 Exam: A&O x 4 NSR Adequate air-exchange Abd soft, NT Extremities warm REASON FOR ADMISSION 55 y.o. female with past medical history of SCC of the supraglottic region (2008, s/p chemo/rads and laryngectomy with flap/TEF creation for phonation with insertion of speech prothesis; current stoma without trach in place on arrival to OSH), alcohol use disorder (reportedly drinks >1 pint of liquor daily; alcohol negative on arrival to OSH), HTN, HLD, hypothyroidism who presented to an OSH after being found lying on the steps at her home minimally responsive by her son. On arrival to OSH, patient in septic shock requiring pressor support. Labs were notable for elevated lactate of 11.9, leukocytosis (16.0), hypokalemia, hypomagnesemia. Patient started on empiric vanc/zosyn. Blood cultures negative and urine culture contaminated. Sepsis initially thought to be secondary to UTI (CT CAP on admission w/ cystitis), however, patient continued to have dysphagia and respiratory distress with elective replacement of tracheostomy tube. Bedside bronchoscopy on 06/07 showed copious food and secretions in the patient's airway. A modified barium swallow was performed that confirmed TEF without precise localization in setting of tracheostomy tube in place, as well as poor swallow mechanics. CT chest on 06/10 with bilateral pleural effusions/infiltrate suspicious for aspiration pneumonia/pneumonitis secondary to remote surgical TEF. Patient was [place] [facility] [place] management of chronic TEF and need for distal enteral access. TODAY'S EVENTS 06/12: admitted overnight from OSH for TEF complications and ongoing management; in chair wilyy and alert This critically ill patient continues to be at-risk for clinically significant deterioration / failure due to the above mentioned dysfunctional, unstable organ systems. I have personally identified and managed all complex critical care issues to prevent aforementioned clinical deterioration. Critical care time is spent at bedside and/or the immediate area and has included, but is not limited to, the review of diagnostic tests, labs, radiographs, serial assessments of hemodynamics, respiratory status, ventilatory management, and family updates. Time spent in procedures and teaching are reported separately. CF CRITICAL CARE TIME: 35 minutes LABS: CMP: Results from last 7 days Lab Units 06/12/2531606/11/2545006/10/25 0510 06/09/25 0419 06/08/25 0248 06/07/25 0426 SODIUM mmol/L 141 141 142 141 139 136 POTASSIUM mmol/L 4.0 4.2 3.8 3.8 3.9 4.3 CHLORIDE mmol/L 104 106 107 108* 106 104 CO2 mmol/L 28 28 29 29 27 25 ANION GAP mmol/L 13 11 10 8* 10 11 BUN mg/dL 12 11 10 9 9 11 CREATININE mg/dL 0.88 0.87 0.85 0.80 0.81 1.12* EGFR mL/min/1.73m*2 78 79 81 87 86 58* MAGNESIUM mg/dL 1.62 1.63 1.61 1.72 1.81 1.58* ALBUMIN g/dL 2.1* 2.2* 2.1* 2.2* 2.2* 2.4* ALK PHOS U/L -- 144* 152* 158* 162* 151* ALT U/L -- 12 13 14 16 16 AST U/L -- 54* 70* 85* 107* 108* BILIRUBIN TOTAL mg/dL -- 0.6 0.7 0.6 0.7 0.9 CBC: Results from last 7 days Lab Units 06/12/2531606/11/2545006/10/25 0510 06/10/25 0032 06/09/25 0419 WBC AUTO x10*3/uL 4.9 4.5 4.6 5.2 5.1 HEMOGLOBIN g/dL 8.4* 7.6* 7.8* 7.5* 6.8* HEMATOCRIT % 27.7* 24.2* 24.7* 23.7* 22.1* PLATELETS AUTO x10*3/uL 153 152 140* 131* 147* COAG: Results from last 7 days Lab Units 06/12/25 0317 06/06/25 0930 INR 1.2* 1.2* ABO: ABO TYPE Date Value Ref Range Status 06/12/2025 O Final HEME/ENDO: Results from last 7 days Lab Units 06/12/25 0317 06/07/25 1041 06/05/25 1832 FERRITIN ng/mL -- 1,094* -- TSH mIU/L 31.99* -- 18.60* CARDIAC: No lab exists for component: CK, CKMBP documented in this encounter [facility] Work Phone: 06-17-2025 Evaluation + Plan note Associated Problem(s): Tracheoesophageal fistula Vj Myers is a 55 y.o. 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 Was septic on arrival which was ultimately attributed to aspiration pneumonia/pneumonitis secondary to remote surgical TEF. Patient is now s/p EGD w/ esophageal stent placement, PEG tube placement and bronchoscopy 06/12 w/ Dr. Thomas. Patient decannulated 06/13, she is at risk for erosion between her trach tube and her new stent. Patient unable to speak with esophageal stent in place. Oxygenating well on trach collar. 06/15 unable to tolerated enteral feeds - layne residual/emesis, started on Reglan, NPO, IVF's 06/16 changed enteral feeds formula - tolerated at 30 ml/hr (goal 35 ml/hr) [facility] Work Phone: 06-17-2025 Plan of care note The patient's goals for the shift include Problem: Pain - Adult Goal: Verbalizes/displays adequate comfort level or baseline comfort level Outcome: Progressing Problem: Safety - Adult Goal: Free from fall injury Outcome: Progressing Problem: Nutrition Goal: Nutrient intake appropriate for maintaining nutritional needs Outcome: Progressing [facility] 06-17-2025 Plan of care note The clinical goals for the shift include pt will tolerate increase in tube feed. Problem: Pain - Adult Goal: Verbalizes/displays adequate comfort level or baseline comfort level Outcome: Progressing Problem: Safety - Adult Goal: Free from fall injury Outcome: Progressing Problem: Discharge Planning Goal: Discharge to home or other facility with appropriate resources Outcome: Progressing Problem: Chronic Conditions and Co-morbidities Goal: Patient's chronic conditions and co-morbidity symptoms are monitored and maintained or improved Outcome: Progressing Problem: Nutrition Goal: Nutrient intake appropriate for maintaining nutritional needs Outcome: Progressing Problem: Skin Goal: Decreased wound size/increased tissue granulation at next dressing change Outcome: Progressing Goal: Participates in plan/prevention/treatment measures Outcome: Progressing Goal: Prevent/manage excess moisture Outcome: Progressing Goal: Prevent/minimize sheer/friction injuries Outcome: Progressing Goal: Promote/optimize nutrition Outcome: Progressing Goal: Promote skin healing Outcome: Progressing Problem: Fall/Injury Goal: Not fall by end of shift Outcome: Progressing Goal: Be free from injury by end of the shift Outcome: Progressing Goal: Verbalize understanding of personal risk factors for fall in the hospital Outcome: Progressing Goal: Verbalize understanding of risk factor reduction measures to prevent injury from fall in the home Outcome: Progressing Goal: Use assistive devices by end of the shift Outcome: Progressing Goal: Pace activities to prevent fatigue by end of the shift Outcome: Progressing Problem: Pain Goal: Takes deep breaths with improved pain control throughout the shift Outcome: Progressing Goal: Turns in bed with improved pain control throughout the shift Outcome: Progressing Goal: Walks with improved pain control throughout the shift Outcome: Progressing Goal: Performs ADL's with improved pain control throughout shift Outcome: Progressing Goal: Participates in PT with improved pain control throughout the shift Outcome: Progressing Goal: Free from opioid side effects throughout the shift Outcome: Progressing Goal: Free from acute confusion related to pain meds throughout the shift Outcome: Progressing [facility] 06-16-2025 Plan of care note Problem: Pain - Adult Goal: Verbalizes/displays adequate comfort level or baseline comfort level Outcome: Progressing Problem: Safety - Adult Goal: Free from fall injury Outcome: Progressing Problem: Discharge Planning Goal: Discharge to home or other facility with appropriate resources Outcome: Progressing Problem: Chronic Conditions and Co-morbidities Goal: Patient's chronic conditions and co-morbidity symptoms are monitored and maintained or improved Outcome: Progressing Problem: Nutrition Goal: Nutrient intake appropriate for maintaining nutritional needs Outcome: Progressing Problem: Skin Goal: Decreased wound size/increased tissue granulation at next dressing change Outcome: Progressing Goal: Participates in plan/prevention/treatment measures Outcome: Progressing Goal: Prevent/manage excess moisture Outcome: Progressing Goal: Prevent/minimize sheer/friction injuries Outcome: Progressing Goal: Promote/optimize nutrition Outcome: Progressing Goal: Promote skin healing Outcome: Progressing Problem: Fall/Injury Goal: Not fall by end of shift Outcome: Progressing Goal: Be free from injury by end of the shift Outcome: Progressing Goal: Verbalize understanding of personal risk factors for fall in the hospital Outcome: Progressing Goal: Verbalize understanding of risk factor reduction measures to prevent injury from fall in the home Outcome: Progressing Goal: Use assistive devices by end of the shift Outcome: Progressing Goal: Pace activities to prevent fatigue by end of the shift Outcome: Progressing Problem: Pain Goal: Takes deep breaths with improved pain control throughout the shift Outcome: Progressing Goal: Turns in bed with improved pain control throughout the shift Outcome: Progressing Goal: Walks with improved pain control throughout the shift Outcome: Progressing Goal: Performs ADL's with improved pain control throughout shift Outcome: Progressing Goal: Participates in PT with improved pain control throughout the shift Outcome: Progressing Goal: Free from opioid side effects throughout the shift Outcome: Progressing Goal: Free from acute confusion related to pain meds throughout the shift Outcome: Progressing [facility] 06-16-2025 Consult note Associated Order (s): IP CONSULT TO NUTRITION SERVICES Nutrition Note: Nutrition Assessment Reason for Assessment: Enteral assessment/recommendation (TF) Reported pt with episode of emesis & reflux over weekend > team requests trying alternate formula prior to deciding to return to OR for possible J-extension. Prescribed reglan & PPI. Nutrition Significant Labs: CBC Trend: Results from last 7 days Lab Units 06/16/25 0650 06/15/25 0549 06/13/25 0515 06/12/25 1504 WBC AUTO x10*3/uL 7.9 6.4 8.2 6.5 RBC AUTO x10*6/uL 3.12* 2.89* 2.80* 2.99* HEMOGLOBIN g/dL 9.8* 9.2* 8.6* 9.5* HEMATOCRIT % 32.4* 29.6* 28.8* 30.8* MCV fL 104* 102* 103* 103* PLATELETS AUTO x10*3/uL 178 135* 167 149* , BG POCT trend: Results from last 7 days Lab Units 06/16/25 0819 06/16/25 0351 06/15/25 2343 06/15/25 2041 06/15/25 1650 POCT GLUCOSE mg/dL 92 105* 102* 114* 108* , Renal Lab Trend: Results from last 7 days Lab Units 06/16/25 0650 06/15/25 0549 06/13/25 0515 06/12/25 1504 POTASSIUM mmol/L 3.6 3.4* 4.0 3.9 PHOSPHORUS mg/dL -- 2.6 3.7 3.3 SODIUM mmol/L 137 138 137 140 MAGNESIUM mg/dL 2.14 1.70 2.07 2.54* EGFR mL/min/1.73m*2 >90 >90 82 81 BUN mg/dL 6 7 8 9 CREATININE mg/dL 0.68 0.76 0.84 0.85 Nutrition Specific Medications: Scheduled medications Scheduled Medications[1] Continuous medications Continuous Medications[2] PRN medications PRN Medications[3] I/O: Last BM Date: 06/15/25; Stool Appearance: Loose, Liquid (06/16/25 0900) Dietary Orders (From admission, onward) Start Ordered 06/16/25 0835 Enteral feeding with NPO TwoCal HN; GT (gastric tube); 10 Diet effective now Question Answer Comment Tube feeding formula: TwoCal HN Feeding route: GT (gastric tube) Tube feeding continuous rate (mL/hr): 10 06/16/25 0834 06/12/25324 May Not Participate in Room Service ( ROOM SERVICE MAY NOT PARTICIPATE) Once Question: . Answer: Yes 06/12/25324 Estimated Needs: Total Energy Estimated Needs in 24 hours (kCal): (0644-1708) Method for Estimating Needs: 30-35 kcal/kg IBW Total Protein Estimated Needs in 24 Hours (g): 75 g Method for Estimating 24 Hour Protein Needs: 1.5 g/kg IBW Total Fluid Estimated Needs in 24 Hours (mL): 1800 mL Method for Estimating 24 Hour Fluid Needs: 35 ml/kg IBW Nutrition Interventions/Recommendations Nutrition prescription for enteral nutrition Nutrition Recommendations: TwoCal HN goal @ 35 mls/hr continuous for 100% est needs Nutrition Interventions/Goals: Goal: TwoCal HN @ 35 = 1680 kcals, 70gm protein with ~600mls free water/d Education Documentation No documentation found. Nutrition Monitoring and Evaluation Enteral and Parenteral Nutrition Intake Determination: Enteral nutrition formula/solution Additional Plans: trial of lower volume, fiber free formula Goal Status: Goal(s) not achieved Time Spent (min): 30 minutes [1] acetaminophen, 650 mg, g-tube, q6h carvedilol, 6.25 mg, g-tube, BID docusate sodium, 100 mg, g-tube, BID folic acid, 1 mg, g-tube, Daily heparin (porcine), 5,000 Units, subcutaneous, q8h insulin lispro, 0-5 Units, subcutaneous, q4h [START ON 06/17/2025] levothyroxine, 150 mcg, g-tube, Daily metoclopramide, 10 mg, intravenous, q8h multivitamin with minerals, 1 tablet, oral, Daily pantoprazole, 40 mg, intravenous, Daily sertraline, 50 mg, g-tube, Daily thiamine, 100 mg, oral, Daily [2] dextrose 5%-0.45 % sodium chloride, 75 mL/hr, Last Rate: 75 mL/hr (06/16/25 0107) [3] PRN medications: alteplase, dextrose, dextrose, glucagon, glucagon, oxyCODONE, oxyCODONE, oxygen [facility] 06-16-2025 Consult note Associated Order (s): IP CONSULT TO NUTRITION SERVICES Nutrition Note: Nutrition Assessment Reason for Assessment: Enteral assessment/recommendation (TF) Reported pt with episode of emesis & reflux over weekend > team requests trying alternate formula prior to deciding to return to OR for possible J-extension. Prescribed reglan & PPI. Nutrition Significant Labs: CBC Trend: Results from last 7 days Lab Units 06/16/25 0650 06/15/25 0549 06/13/25 0515 06/12/25 1504 WBC AUTO x10*3/uL 7.9 6.4 8.2 6.5 RBC AUTO x10*6/uL 3.12* 2.89* 2.80* 2.99* HEMOGLOBIN g/dL 9.8* 9.2* 8.6* 9.5* HEMATOCRIT % 32.4* 29.6* 28.8* 30.8* MCV fL 104* 102* 103* 103* PLATELETS AUTO x10*3/uL 178 135* 167 149* , BG POCT trend: Results from last 7 days Lab Units 06/16/25 0819 06/16/25 0351 06/15/25 2343 06/15/25 2041 06/15/25 1650 POCT GLUCOSE mg/dL 92 105* 102* 114* 108* , Renal Lab Trend: Results from last 7 days Lab Units 06/16/25 0650 06/15/25 0549 06/13/25 0515 06/12/25 1504 POTASSIUM mmol/L 3.6 3.4* 4.0 3.9 PHOSPHORUS mg/dL -- 2.6 3.7 3.3 SODIUM mmol/L 137 138 137 140 MAGNESIUM mg/dL 2.14 1.70 2.07 2.54* EGFR mL/min/1.73m*2 >90 >90 82 81 BUN mg/dL 6 7 8 9 CREATININE mg/dL 0.68 0.76 0.84 0.85 Nutrition Specific Medications: Scheduled medications Scheduled Medications[1] Continuous medications Continuous Medications[2] PRN medications PRN Medications[3] I/O: Last BM Date: 06/15/25; Stool Appearance: Loose, Liquid (06/16/25 0900) Dietary Orders (From admission, onward) Start Ordered 06/16/25 0835 Enteral feeding with NPO TwoCal HN; GT (gastric tube); 10 Diet effective now Question Answer Comment Tube feeding formula: TwoCal HN Feeding route: GT (gastric tube) Tube feeding continuous rate (mL/hr): 10 06/16/25 0834 06/12/25 032 May Not Participate in Room Service ( ROOM SERVICE MAY NOT PARTICIPATE) Once Question: . Answer: Yes 06/12/25324 Estimated Needs: Total Energy Estimated Needs in 24 hours (kCal): (9963-9853) Method for Estimating Needs: 30-35 kcal/kg IBW Total Protein Estimated Needs in 24 Hours (g): 75 g Method for Estimating 24 Hour Protein Needs: 1.5 g/kg IBW Total Fluid Estimated Needs in 24 Hours (mL): 1800 mL Method for Estimating 24 Hour Fluid Needs: 35 ml/kg IBW Nutrition Interventions/Recommendations Nutrition prescription for enteral nutrition Nutrition Recommendations: TwoCal HN goal @ 35 mls/hr continuous for 100% est needs Nutrition Interventions/Goals: Goal: TwoCal HN @ 35 = 1680 kcals, 70gm protein with ~600mls free water/d Education Documentation No documentation found. Nutrition Monitoring and Evaluation Enteral and Parenteral Nutrition Intake Determination: Enteral nutrition formula/solution Additional Plans: trial of lower volume, fiber free formula Goal Status: Goal(s) not achieved Time Spent (min): 30 minutes [1] acetaminophen, 650 mg, g-tube, q6h carvedilol, 6.25 mg, g-tube, BID docusate sodium, 100 mg, g-tube, BID folic acid, 1 mg, g-tube, Daily heparin (porcine), 5,000 Units, subcutaneous, q8h insulin lispro, 0-5 Units, subcutaneous, q4h [START ON 06/17/2025] levothyroxine, 150 mcg, g-tube, Daily metoclopramide, 10 mg, intravenous, q8h multivitamin with minerals, 1 tablet, oral, Daily pantoprazole, 40 mg, intravenous, Daily sertraline, 50 mg, g-tube, Daily thiamine, 100 mg, oral, Daily [2] dextrose 5%-0.45 % sodium chloride, 75 mL/hr, Last Rate: 75 mL/hr (06/16/25 0107) [3] PRN medications: alteplase, dextrose, dextrose, glucagon, glucagon, oxyCODONE, oxyCODONE, oxygen ENT DEPARTMENT CONSULTATION NOTE Name: Vj Myers : 1970 Consulting Team: Thoracic surgery Reason for Consult: Laryngectomy patient History of Present Illness 55 y.o. 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 Was septic on arrival which was ultimately attributed to aspiration pneumonia/pneumonitis secondary to remote surgical TEF. Patient is now s/p EGD w/ esophageal stent placement, PEG tube placement and bronchoscopy 06/12 w/ Dr. Thomas. 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 There is conversations among attendings where for now the best course of action was a stent. However with the stent in place care must be taken to avoid excessive irritation between the esophagus and trachea. ENT was consulted for clearance of removal of LaryTube and recommendations for stoma management. Review of Systems 14 point review of systems completed and all negative except as noted in HPI. Past Medical History Medical History[1] Past Surgical History Surgical History[2] Allergies Allergies[3] Medications Current Medications[4] Family History Family History[5] Social History Social History Socioeconomic History Marital status: Single Spouse name: Not on file Number of children: Not on file Years of education: Not on file Highest education level: Not on file Occupational History Not on file Tobacco Use Smoking status: Former Types: Cigarettes Smokeless tobacco: Never Vaping Use Vaping status: Never Used Substance and Sexual Activity Alcohol use: Yes Alcohol/week: 20.0 - 42.0 standard drinks of alcohol Types: 20 - 42 Standard drinks or equivalent per week Comment: Son states patient drinks if she can get her hands on a pint, she will drink 3-4 pints at a time Drug use: Never Sexual activity: Not on file Other Topics Concern Not on file Social History Narrative Not on file Social Drivers of Health Financial Resource Strain: Low Risk (06/12/2025) Overall Financial Resource Strain (CARDIA) Difficulty of Paying Living Expenses: Not hard at all Food Insecurity: No Food Insecurity (06/12/2025) Hunger Vital Sign Worried About Running Out of Food in the Last Year: Never true Ran Out of Food in the Last Year: Never true Transportation Needs: Unmet Transportation Needs (06/12/2025) PRAPARE - Transportation Lack of Transportation (Medical): Yes Lack of Transportation (Non-Medical): Yes Physical Activity: Not on file Stress: Not on file Social Connections: Not on file Intimate Partner Violence: Not At Risk (06/12/2025) Humiliation, Afraid, Rape, and Kick questionnaire Fear of Current or Ex-Partner: No Emotionally Abused: No Physically Abused: No Sexually Abused: No Housing Stability: Low Risk (06/12/2025) Housing Stability Vital Sign Unable to Pay for Housing in the Last Year: No Number of Times Moved in the Last Year: 0 Homeless in the Last Year: No Vital Signs Vitals: 06/13/25 1741 BP: 110/78 Pulse: 84 Resp: 16 Temp: 36 C (96.8 F) SpO2: 94% Physical Examination GENERAL: in no acute distress, does not phonate RESPIRATION: breathing comfortable, nonlabored CV: No clubbing/cyanosis/edema in hands EYES: Sclera normal NEURO: Responsive, CN grossly intact HEAD AND FACE: Skin with no masses or lesion EARS: Normal external ears NOSE: External nose midline, anterior rhinoscopy is normal ORAL CAVITY/OROPHARYNX/LIPS: Normal mucous membranes NECK/LYMPH: Post laryngectomy, free flap healing nicely, stoma well matured Laboratory and Data Results for orders placed or performed during the hospital encounter of 06/12/25 (from the past 24 hours) POCT GLUCOSE Result Value Ref Range POCT Glucose 111 (H) 74 - 99 mg/dL POCT GLUCOSE Result Value Ref Range POCT Glucose 92 74 - 99 mg/dL POCT GLUCOSE Result Value Ref Range POCT Glucose 79 74 - 99 mg/dL Vitamin B12 Result Value Ref Range Vitamin B12 1,069 (H) 211 - 911 pg/mL Folate Result Value Ref Range Folate, Serum 8.0 >5.0 ng/mL Calcium, Ionized Result Value Ref Range POCT Calcium, Ionized 1.16 1.1 - 1.33 mmol/L CBC Result Value Ref Range WBC 8.2 4.4 - 11.3 x10*3/uL nRBC 0.0 0.0 - 0.0 /100 WBCs RBC 2.80 (L) 4.00 - 5.20 x10*6/uL Hemoglobin 8.6 (L) 12.0 - 16.0 g/dL Hematocrit 28.8 (L) 36.0 - 46.0 % MCV 103 (H) 80 - 100 fL MCH 30.7 26.0 - 34.0 pg MCHC 29.9 (L) 32.0 - 36.0 g/dL RDW 17.1 (H) 11.5 - 14.5 % Platelets 167 150 - 450 x10*3/uL Coagulation Screen Result Value Ref Range Protime 12.5 (H) 9.8 - 12.4 seconds INR 1.1 0.9 - 1.1 aPTT 35 26 - 36 seconds Magnesium Result Value Ref Range Magnesium 2.07 1.60 - 2.40 mg/dL Renal Function Panel Result Value Ref Range Glucose 89 74 - 99 mg/dL Sodium 137 136 - 145 mmol/L Potassium 4.0 3.5 - 5.3 mmol/L Chloride 101 98 - 107 mmol/L Bicarbonate 29 21 - 32 mmol/L Anion Gap 11 10 - 20 mmol/L Urea Nitrogen 8 6 - 23 mg/dL Creatinine 0.84 0.50 - 1.05 mg/dL eGFR 82 >60 mL/min/1.73m*2 Calcium 7.6 (L) 8.6 - 10.6 mg/dL Phosphorus 3.7 2.5 - 4.9 mg/dL Albumin 2.0 (L) 3.4 - 5.0 g/dL POCT GLUCOSE Result Value Ref Range POCT Glucose 81 74 - 99 mg/dL POCT GLUCOSE Result Value Ref Range POCT Glucose 56 (L) 74 - 99 mg/dL POCT GLUCOSE Result Value Ref Range POCT Glucose 60 (L) 74 - 99 mg/dL PROCEDURE NOTE: Bronchoscopy through stoma For better visualization because of stoma and trachea, a flexible fiberoptic nasopharyngolaryngoscopy was performed. Patient was correctly identified and verbal consent obtained. These structures were found to be normal with the following notable findings: - Normal peeling stoma - Small piece of granulation tissue on posterior aspect of superior trachea near previous TEP site - No signs of erosion or destruction of trachea down to the level of nirmal Assessment Vj Myers is a 55 y.o. female who is known to ENT for laryngectomy back in 2007. She is here for complex septic management in addition to fistula repair with stent by thoracic surgery. ENT was asked to be involved as her stoma is somewhat near the fistula and they were hoping to avoid any excessive irritation or erosion. Conversation with attendings between Dr. Boyd and thoracic surgery. It was recommended to keep stoma open and convert to stomal sponge on the outside. The sponge will act like HME and prevent any debris from entering the stoma. Recommendations - Change stomal sponge as needed: The sponge has an adhesive strip that is to be adhered superior to the stoma and gently draped down over top, can be changed by patient, family, or nursing. Patient was educated on usage of sponge. - ENT to arrange follow-up with Dr. Rutherford for small piece of granulation tissue around the stoma - Cleared for discharge from ENT standpoint Seen and discussed with Dr. Rutherford who agrees with assessment and plan. 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, oral cavity, and pharynx History of throat cancer Personal history of Methicillin resistant Staphylococcus aureus infection History of methicillin resistant Staphylococcus aureus infection Personal history of other diseases of urinary system 10/26/2021 History of kidney disease [2] Past Surgical History: Procedure Laterality Date HYSTERECTOMY IR INJECTION EPIDURAL STEROID N/A 04/05/2024 L4-5 [facility] OTHER SURGICAL HISTORY 10/26/2021 Throat surgery OTHER SURGICAL HISTORY 10/26/2021 section OTHER SURGICAL HISTORY 10/26/2021 Bladder surgery OTHER SURGICAL HISTORY 10/26/2021 Hernia repair OTHER SURGICAL HISTORY 11/09/2021 Intra-articular corticosteroid injection [3] Allergies Allergen Reactions Iodinated Contrast Media Unknown Morphine Other Adhesive Rash Latex Hives, Other and Rash [4] Current Facility-Administered Medications: [Transfer Hold] alteplase (Cathflo Activase) injection 2 mg, 2 mg, intra-catheter, PRN, Lissy Carlin PA-C, 2 mg at 06/13/25 0031 [Transfer Hold] calcium gluconate 1 g in sodium chloride (iso) IV 50 mL, 1 g, intravenous, q6h PRN, Lissy Carlin PA-C [Transfer Hold] calcium gluconate 2 g in sodium chloride (iso) IV 100 mL, 2 g, intravenous, q6h PRN, Lissy Carlin PA-C [Transfer Hold] carvedilol (Coreg) tablet 6.25 mg, 6.25 mg, g-tube, BID, Shad Jw Staton, DO, 6.25 mg at 06/13/25 1030 [Transfer Hold] dextrose 50 % injection 12.5 g, 12.5 g, intravenous, q15 min PRN, Lissy Carlin PA-C, 12.5 g at 06/13/25 1143 [Transfer Hold] dextrose 50 % injection 25 g, 25 g, intravenous, q15 min PRN, Lissy Carlin PA-C [Transfer Hold] folic acid (Folvite) tablet 1 mg, 1 mg, g-tube, Daily, Lissy Carlin PA-C, 1 mg at 06/13/25 1029 [Transfer Hold] glucagon (Glucagen) injection 1 mg, 1 mg, intramuscular, q15 min PRN, Lissy Carlin PA-C [Transfer Hold] glucagon (Glucagen) injection 1 mg, 1 mg, intramuscular, q15 min PRN, Lissy Carlin PA-C [Transfer Hold] heparin (porcine) injection 5,000 Units, 5,000 Units, subcutaneous, q8h, Lissy Carlin PA-C, 5,000 Units at 06/13/25 1143 [Transfer Hold] HYDROmorphone PF (Dilaudid) injection 0.2 mg, 0.2 mg, intravenous, q3h PRN, Yasmani Sosa MD, 0.2 mg at 06/13/25 1556 [Transfer Hold] insulin lispro injection 0-5 Units, 0-5 Units, subcutaneous, q4h, Lissy Carlin PA-C [Transfer Hold] levothyroxine (Synthroid, Levoxyl) tablet 150 mcg, 150 mcg, g-tube, Daily, Shad Staton DO [Transfer Hold] magnesium sulfate 2 g in sterile water for injection 50 mL, 2 g, intravenous, q6h PRN, Lissy Carlin PA-C [Transfer Hold] magnesium sulfate 4 g in sterile water for injection 100 mL, 4 g, intravenous, q6h PRN, Lissy Carlin PA-C [Transfer Hold] methocarbamol (Robaxin) injection 1,000 mg, 1,000 mg, intravenous, q8h PRN, Lissy Carlin PA-C multivitamin with minerals 1 tablet, 1 tablet, oral, Daily, Lulú Ponce MD, 1 tablet at 06/13/25 1029 [Transfer Hold] oxyCODONE (Roxicodone) solution 5 mg, 5 mg, oral, q6h PRN, Yasmani Sosa MD, 5 mg at 06/13/25 1349 oxygen (O2) therapy, 1 Dose, inhalation, Continuous - O2/gases, Lissy Carlin PA-C, Rate Verify Medical Gas at 06/13/25 0356 [Transfer Hold] pantoprazole (Protonix) injection 40 mg, 40 mg, intravenous, Daily, Lissy Carlin PA-C, 40 mg at 06/13/25 1030 piperacillin-tazobactam (Zosyn) 4.5 g in dextrose (iso) IV 100 mL, 4.5 g, intravenous, q6h, Lissy Carlin PA-C, Stopped at 06/13/25 1246 [Transfer Hold] potassium chloride 20 mEq in sterile water for injection 100 mL, 20 mEq, intravenous, q6h PRN, Lissy Carlin PA-C [Transfer Hold] thiamine (Vitamin B-1) tablet 100 mg, 100 mg, oral, Daily, Lissy Carlin PA-C [Transfer Hold] thiamine (Vitamin B1) injection 100 mg, 100 mg, intravenous, Daily, Lissy Carlin PA-C, 100 mg at 06/13/25 1031 [5] Family History Problem Relation Name Age of Onset Lung cancer Mother Heart failure Father Colon cancer Sister Diabetes Brother Heart failure Other Grandmother Cosigned by Isidra Rutherford MD at 06/13/2025 6:06 PM EDT Associated attestation - Isidra Rutherford MD - 06/13/2025 6:06 PM EDT ATTESTATION I saw and evaluated the patient. I personally obtained the campos and critical portions of the history and physical exam or was physically present for campos and critical portions performed by the resident/fellow. I reviewed the resident/fellow's documentation and discussed the patient with the resident/fellow. I agree with the resident/fellow's medical decision making as documented in the note with my edits made directly to the note. Isidra Rutherford MD Associated Order(s): IP CONSULT TO NUTRITION SERVICES Nutrition Initial Assessment: Nutrition Assessment Reason for Assessment: Enteral assessment/recommendation (TF) Patient is a 55 y.o. female presenting as a transfer from OSH for further management of tracheal esophageal fistula. S/p EGD with stent placement and PEG today. Tracheostomy placed through existing stoma at OSH due to worsening dysphagia and respiratory status. 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 Nutrition History: Food and Nutrient History: Pt reports she was eating fine prior to admission at OSH, interview kept brief as pt had just returned from OR. Anthropometrics: Height: 160 cm (5' 2.99) Weight: 89.9 kg (198 lb 3.1 oz) BMI (Calculated): 35.12 IBW/kg (Dietitian Calculated): 52.3 kg Weight History: Wt Readings from Last 10 Encounters: 06/12/25 89.9 kg (198 lb 3.1 oz) 06/11/25 91.4 kg (201 lb 6.4 oz) 01/12/25 81.6 kg (180 lb) 01/07/25 90.2 kg (198 lb 13.7 oz) 06/27/24 72.6 kg (160 lb) 05/29/24 72.6 kg (160 lb) 04/19/24 85.3 kg (188 lb) 04/08/24 79.8 kg (176 lb) 04/05/24 79.4 kg (175 lb) 03/25/24 84.4 kg (186 lb 1.6 oz) Weight Change %: wt gain of 18.8 kg x1 year, unclear if wt of 72.6 kg in summer of 2023 is accurate as pt UBW appears to be in the 80-90 kg range Nutrition Focused Physical Exam Findings: Subcutaneous Fat Loss: Orbital Fat Pads: Mild-Moderate (slight dark circles and slight hollowing) Buccal Fat Pads: Mild-Moderate (flat cheeks, minimal bounce) Triceps: Mild-Moderate (less than ample fat tissue) Muscle Wasting: Temporalis: Mild-Moderate (slight depression) Pectoralis (Clavicular Region): Mild-Moderate (some protrusion of clavicle) Deltoid/Trapezius: Mild-Moderate (slight protrusion of acromion process) Interosseous: Well nourished (muscle bulges) Edema: Edema: +1 trace Edema Location: generalized Nutrition Significant Labs: BG POCT trend: Results from last 7 days Lab Units 06/12/25 1200 06/12/25 1100 06/12/25 0930 06/12/25 0859 06/12/25 0803 POCT GLUCOSE mg/dL 74 54* 60* 61* 51* , Renal Lab Trend: Results from last 7 days Lab Units 06/12/25 0317 06/11/25 0451 06/10/25 0510 06/09/25 0419 POTASSIUM mmol/L 4.0 4.2 3.8 3.8 PHOSPHORUS mg/dL 3.6 -- -- 2.3* SODIUM mmol/L 141 141 142 141 MAGNESIUM mg/dL 1.62 1.63 1.61 1.72 EGFR mL/min/1.73m*2 78 79 81 87 BUN mg/dL 12 11 10 9 CREATININE mg/dL 0.88 0.87 0.85 0.80 Nutrition Specific Medications: Scheduled medications insulin lispro, 0-5 Units, subcutaneous, q4h multivitamin with minerals, 1 tablet, oral, Daily [START ON 06/13/2025] pantoprazole, 40 mg, intravenous, Daily [START ON 06/15/2025] thiamine, 100 mg, oral, Daily thiamine, 100 mg, intravenous, Daily Continuous medications dextrose 5 % and lactated Ringer's, 75 mL/hr, Last Rate: 75 mL/hr (06/12/25 1200) I/O: Last BM Date: 06/12/25; Stool Appearance: Loose (06/12/25 0800) Dietary Orders (From admission, onward) Start Ordered 06/12/25324 May Not Participate in Room Service ( ROOM SERVICE MAY NOT PARTICIPATE) Once Question: . Answer: Yes 06/12/2532406/12/25 0304 NPO Diet; Effective now Diet effective now 06/12/25 0307 Estimated Needs: Total Energy Estimated Needs in 24 hours (kCal): (5953-9434) Method for Estimating Needs: 30-35 kcal/kg IBW Total Protein Estimated Needs in 24 Hours (g): 75 g Method for Estimating 24 Hour Protein Needs: 1.5 g/kg IBW Total Fluid Estimated Needs in 24 Hours (mL): 1800 mL Method for Estimating 24 Hour Fluid Needs: 35 ml/kg IBW Nutrition Diagnosis Malnutrition Diagnosis Patient has Malnutrition Diagnosis: Yes Diagnosis Status: New Malnutrition Diagnosis: Moderate malnutrition related to chronic disease or condition As Evidenced by: mild muscle loss and subcutaneous fat loss. Nutrition Diagnosis Patient has Nutrition Diagnosis: Yes Diagnosis Status (1): New Nutrition Diagnosis 1: Swallowing difficulty Related to (1): esophageal tracheal fistula As Evidenced by (1): imaging, EG + bronch results. Nutrition Interventions/Recommendations Nutrition prescription for enteral nutrition Nutrition Recommendations: Individualized Nutrition Prescription Provided for : Start Isosource 1.5 @ 15 ml/hr and incease by 10 ml q8h to goal rate of 45 ml/hr is reached. Free H20 flushes per SICU while in ICU. Once pt able to tolerate feeds at goal rate could transition to bolus feeds of 270 ml 4x/day with a 60 ml free H20 flush pre/post bolus additional free H20 flushes of 250 ml 2x/day between boluses. Nutrition Interventions/Goals: Enteral Intake: Management of composition of enteral nutrition, Management of delivery rate of enteral nutrition, Management of schedule of enteral nutrition Goal: 1080 ml Isosource 1.5 = 1620 kcal, 73 g protein, 825 ml free H20 Nutrition Monitoring and Evaluation Enteral and Parenteral Nutrition Intake Determination: Enteral nutrition intake - Tolerate TF at goal rate Electrolyte and Renal Panel: Electrolytes within normal limits Goal Status: New goal(s) identified Time Spent (min): 45 minutes Associated Order(s): Inpatient consult to Endocrinology Inpatient consult to Endocrinology Consult performed by: Chetan Merchant MD Consult ordered by: Lindsay Shaffer APRN-EMBALMER APPRENTICE Reason For Consult Hypothyroidism management History Of Present Illness jV Myers is a 55 y.o. female presenting with SCC of the supraglottic region (2007, s/p chemo/rads and laryngectomy with flap/TEF), alcohol use disorder, HTN, HLD, hypothyroidism who presented to OSH in septic shock requiring pressor support thought to be secondary to UTI (CT CAP on admission w/ cystitis). During admission she was found to have TEF iso elective replacement of tracheostomy tube, as well as finding of bilateral pleural effusions/infiltrate suspicious for aspiration pneumonia/pneumonitis secondary to remote surgical TEF. She is currently scheduled for EGD w/ esophageal stent placelement today. During the last week she was NPO, had last taken her home levothyroxine 137 mcg and liothryonine 5 mcg on 06/06. Thyroid panel today showed hypothyroid state T4 0.63, TSH 32, she has received one dose 125 mcg IV levothyroxine today. Per patient she has not had problems with managing her hypothyroidism before admission, and currently is experiencing symptoms of cold, fatigue, insomnia, and increased hair loss. ROS: Fatigued Insomnia Increased appetite (has been NPO 1 week) Feeling cold No ocular sx- tearing, gritty sensation, itching Denies any chest pain, shortness of breath, palpitations. Has been having diarrhea Denies issues with urination No tremors, prox muscle weakness, cramps, tingling. No nausea/vomit or abdominal pain Past Medical History She has a past medical history of 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, oral cavity, and pharynx, Personal history of Methicillin resistant Staphylococcus aureus infection, and Personal history of other diseases of urinary system (10/26/2021). Surgical History She has a past surgical history that includes Other surgical history (10/26/2021); Other surgical history (10/26/2021); Other surgical history (10/26/2021); Other surgical history (10/26/2021); Other surgical history (11/09/2021); Hysterectomy; and IR injection epidural steroid (N/A, 04/05/2024). Social History She reports that she has quit smoking. Her smoking use included cigarettes. She has never used smokeless tobacco. She reports current alcohol use of about 20.0 - 42.0 standard drinks of alcohol per week. She reports that she does not use drugs. Family History Family History[1] Allergies Iodinated contrast media, Morphine, Adhesive, and Latex Medications Medications Ordered Prior to Encounter[2] ROS, PMH, FH/SH, surgical history and allergies have been reviewed. Physical Exam: Constitutional: NAD, obese body habitus, oxygen mask on trach site, well groomed. AOx3. Cooperative, difficulty speaking but can write. Skin/Hair: cold, dry skin. HEENT: EOMI, Anicteric scleras, No lid lag or lid retraction, Dry oral mucosa. Neck: Soft, supple. Non tender Thyroid gland palpation: non nodular, soft consistency, non tender, no bruit. Cardiovascular: RRR, no rub or murmurs. Respiratory: CTAB, no accessory muscle use. Abdomen: Soft, nontender to palpation. Extremities: Preserved peripheral pulses, No peripheral edema. Some new right lower extremity petechia and pain, the discoloration and flaky skin is not new per patient Neuro: Moving all extremities spontaneously. CN's grossly intact. Last Recorded Vitals Blood pressure (!) 127/95, pulse 94, temperature 36 C (96.8 F), temperature source Temporal, resp. rate 15, height 1.6 m (5' 2.99), weight 89.9 kg (198 lb 3.1 oz), SpO2 94%. Relevant Results Lab Results Component Value Date TSH 31.99 (H) 06/12/2025 TSH 18.60 (H) 06/05/2025 TSH 1.17 10/24/2023 TSH 2.52 06/03/2020 FREET4 0.63 (L) 06/12/2025 FREET4 1.13 (H) 06/05/2025 Results for orders placed or performed during the hospital encounter of 06/12/25 (from the past 24 hours) Calcium, Ionized Result Value Ref Range POCT Calcium, Ionized 1.13 1.1 - 1.33 mmol/L CBC Result Value Ref Range WBC 4.9 4.4 - 11.3 x10*3/uL nRBC 0.0 0.0 - 0.0 /100 WBCs RBC 2.63 (L) 4.00 - 5.20 x10*6/uL Hemoglobin 8.4 (L) 12.0 - 16.0 g/dL Hematocrit 27.7 (L) 36.0 - 46.0 % MCV 105 (H) 80 - 100 fL MCH 31.9 26.0 - 34.0 pg MCHC 30.3 (L) 32.0 - 36.0 g/dL RDW 18.1 (H) 11.5 - 14.5 % Platelets 153 150 - 450 x10*3/uL Coagulation Screen Result Value Ref Range Protime 13.2 (H) 9.8 - 12.4 seconds INR 1.2 (H) 0.9 - 1.1 aPTT 30 26 - 36 seconds Magnesium Result Value Ref Range Magnesium 1.62 1.60 - 2.40 mg/dL Renal Function Panel Result Value Ref Range Glucose 69 (L) 74 - 99 mg/dL Sodium 141 136 - 145 mmol/L Potassium 4.0 3.5 - 5.3 mmol/L Chloride 104 98 - 107 mmol/L Bicarbonate 28 21 - 32 mmol/L Anion Gap 13 10 - 20 mmol/L Urea Nitrogen 12 6 - 23 mg/dL Creatinine 0.88 0.50 - 1.05 mg/dL eGFR 78 >60 mL/min/1.73m*2 Calcium 7.8 (L) 8.6 - 10.6 mg/dL Phosphorus 3.6 2.5 - 4.9 mg/dL Albumin 2.1 (L) 3.4 - 5.0 g/dL TSH with reflex to Free T4 if abnormal Result Value Ref Range Thyroid Stimulating Hormone 31.99 (H) 0.44 - 3.98 mIU/L Thyroxine, Free Result Value Ref Range Thyroxine, Free 0.63 (L) 0.78 - 1.48 ng/dL Type and screen Result Value Ref Range ABO TYPE O Rh TYPE POS ANTIBODY SCREEN NEG POCT GLUCOSE Result Value Ref Range POCT Glucose 61 (L) 74 - 99 mg/dL Respiratory Culture/Smear Specimen: SPUTUM; Fluid Result Value Ref Range Respiratory Culture/Smear (A) Culture not performed. See Gram stain findings. Recollect if clinically indicated. Gram Stain (A) Gram stain indicates specimen contains significant salivary contamination. POCT GLUCOSE Result Value Ref Range POCT Glucose 81 74 - 99 mg/dL POCT GLUCOSE Result Value Ref Range POCT Glucose 55 (L) 74 - 99 mg/dL POCT GLUCOSE Result Value Ref Range POCT Glucose 51 (L) 74 - 99 mg/dL POCT GLUCOSE Result Value Ref Range POCT Glucose 61 (L) 74 - 99 mg/dL POCT GLUCOSE Result Value Ref Range POCT Glucose 60 (L) 74 - 99 mg/dL Assessment/Plan Vj Myers is a 55 y.o. female with chronic hypothyroidism on 137 levothyroxine, 5 liothyronine at home without prior issues, currently admitted for TEF iso trach replacement with cf aspiration pneumonia/pneumonitis, found to be hypothyroid on TSH/T4 06/12 iso not taking thyroid medications while NPO. Would recommend decreasing to 100 mcg IV levothyroxine tomorrow, then switching to 150 mcg levothyroxine PO/via PEG tube making sure to hold tube feeds 1 hour before and after giving levothyroxine, and repeating T4 & TSH on 06/15. #Chronic Hypothyroidism Home meds: 137 levothyroxine, 5 liothyronine - Currently got 1 dose 125 IV levothyroxine (equivalent to ~166 PO) 06/12 - Weight based levothyroxine dosing (1.6 mcg/kg) would be 144 PO, recommending decreasing injection levothyroxine 100 mcg IV tomorrow. - Switch to tablet levothyroxine 150 mcg orally/via PEG tube on 06/14. Please make sure to hold tube feeds 1 hour before and after giving levothyroxine - Repeat T4 & TSH on Patient was seen, examined and plan was discussed with Dr. Chetan Merchant MD [1] Family History Problem Relation Name Age of Onset Lung cancer Mother Heart failure Father Colon cancer Sister Diabetes Brother Heart failure Other Grandmother [2] Current Facility-Administered Medications on File Prior to Encounter Medication Dose Route Frequency Provider Last Rate Last Admin [COMPLETED] diazePAM (Valium) injection 2 mg 2 mg intravenous Once Lucretia Mcfarland MD 2 mg at 06/11/25 1115 [COMPLETED] sodium chloride (PF) 0.9% solution - [employer] Override Pull Given at 06/11/252109 [DISCONTINUED] acetaminophen (Tylenol) tablet 975 mg 975 mg oral q8h PRN Sylvia Bonilla MD [DISCONTINUED] alteplase (Cathflo Activase) injection 2 mg 2 mg intra-catheter PRN Anne Gonzales DO [DISCONTINUED] amLODIPine (Norvasc) tablet 5 mg 5 mg oral Daily Sylvia Bonilla MD [DISCONTINUED] carvedilol (Coreg) tablet 6.25 mg 6.25 mg oral BID Sylvia Bonilla MD [DISCONTINUED] diazePAM (Valium) injection 10 mg 10 mg intravenous q2h PRN Sylvia Bonilla MD 10 mg at 06/11/25 2307 [DISCONTINUED] folic acid (Folvite) tablet 1 mg 1 mg oral Daily Sylvia Bonilla MD 1 mg at 06/06/25 0805 [DISCONTINUED] folic acid 1 mg in sodium chloride 0.9% 50 mL IV 1 mg intravenous q24h Talib Maza DO Stopped at 06/11/25 220 [DISCONTINUED] furosemide (Lasix) tablet 20 mg 20 mg oral Daily Sylvia Bonilla MD [DISCONTINUED] ipratropium-albuteroL (Duo-Neb) 0.5-2.5 mg/3 mL nebulizer solution 3 mL 3 mL nebulization 4x daily Sylvia Bonilla MD 3 mL at 06/11/25 2143 [DISCONTINUED] ketorolac (Toradol) injection 15 mg 15 mg intravenous q6h PRN Talib Maza DO 15 mg at 06/11/25 1750 [DISCONTINUED] levothyroxine (Synthroid, Levoxyl) tablet 137 mcg 137 mcg oral Daily Sylvia Bonilla MD 137 mcg at 06/06/25 08 [DISCONTINUED] liothyronine (Cytomel) tablet 5 mcg 5 mcg oral Daily Sylvia Bonilla MD 5 mcg at 06/06/25 08 [DISCONTINUED] LORazepam (Ativan) injection 0.5 mg 0.5 mg intravenous Once Lucretia Mcfarland MD [DISCONTINUED] LORazepam (Ativan) tablet 0.5 mg 0.5 mg oral BID Sylvia Bonilla MD 0.5 mg at 06/06/25 08 [DISCONTINUED] magnesium oxide (Mag-Ox) 400 mg (241.3 mg elemental) tablet 1 tablet 400 mg of magnesium oxide oral BID Sylvia Bonilla MD 1 tablet at 06/06/25802 [DISCONTINUED] methocarbamol (Robaxin) tablet 500 mg 500 mg oral q6h PRN Sylvia Bonilla MD [DISCONTINUED] midodrine (Proamatine) tablet 10 mg 10 mg oral TID Talib Maza DO [DISCONTINUED] multivitamin with minerals 1 tablet 1 tablet oral Daily Sylvia Bonilla MD 1 tablet at 06/06/25 08 [DISCONTINUED] nystatin (Mycostatin) 100,000 unit/gram powder 1 Application 1 Application Topical BID Lucretia Mcfarland MD 1 Application at 06/11/25 210 [DISCONTINUED] oxygen (O2) therapy inhalation Continuous - O2/gases Talib Maza DO Rate Verify Medical Gas at 06/11/25 2143 [DISCONTINUED] pantoprazole (Protonix) injection 40 mg 40 mg intravenous BID Talib Maza DO 40 mg at 06/11/25 2100 [DISCONTINUED] piperacillin-tazobactam (Zosyn) 4.5 g in dextrose (iso) IV 100 mL 4.5 g intravenous q6h Sylvia Bonilla MD Stopped at 06/12/25 0022 [DISCONTINUED] pregabalin (Lyrica) capsule 100 mg 100 mg oral TID Sylvia Bonilla MD 100 mg at 06/06/25 1418 [DISCONTINUED] sertraline (Zoloft) tablet 50 mg 50 mg oral Daily Sylvia Bonilla MD 50 mg at 06/06/25 08 [DISCONTINUED] thiamine (Vitamin B-1) tablet 100 mg 100 mg oral Daily Sylvia Bonilla MD Current Outpatient Medications on File Prior to Encounter Medication Sig Dispense Refill acetaminophen (Tylenol) 325 mg tablet Take 2 tablets (650 mg) by mouth every 4 hours if needed for moderate pain (4 - 6) or mild pain (1 - 3). 30 tablet 0 amLODIPine (Norvasc) 5 mg tablet Take 1 tablet (5 mg) by mouth once daily. 30 tablet 11 atorvastatin (Lipitor) 20 mg tablet Take 1 tablet (20 mg) by mouth once daily. carvedilol (Coreg) 6.25 mg tablet Take 1 tablet (6.25 mg) by mouth 2 times a day. 30 tablet 0 citalopram (CeleXA) 20 mg tablet Take 1 tablet (20 mg) by mouth once daily. 30 tablet 11 disulfiram (Antabuse) 250 mg tablet Take 2 tablets (500 mg) by mouth once daily. folic acid (Folvite) 1 mg tablet Take 1 tablet (1 mg) by mouth once daily. furosemide (Lasix) 20 mg tablet Take 1 tablet (20 mg) by mouth once daily. 90 tablet 3 ipratropium-albuteroL (Duo-Neb) 0.5-2.5 mg/3 mL nebulizer solution Take 3 mL by nebulization 4 times a day. levothyroxine (Synthroid, Levoxyl) 137 mcg tablet Take 1 tablet (137 mcg) by mouth once daily. 90 tablet 3 liothyronine (Cytomel) 5 mcg tablet Take 1 tablet (5 mcg) by mouth once daily. 90 tablet 3 LORazepam (Ativan) 0.5 mg tablet Take 1 tablet (0.5 mg) by mouth 2 times a day for 5 days. 10 tablet 0 magnesium oxide (Mag-Ox) 400 mg tablet Take 1 tablet (400 mg) by mouth 2 times a day. omeprazole (PriLOSEC) [address] capsule Take 1 capsule (40 mg) by mouth once daily. 30 capsule 6 oxygen (O2) gas therapy Inhale 1 each once every 24 hours. pregabalin (Lyrica) 100 mg capsule Take 1 capsule (100 mg) by mouth 3 times a day. 90 capsule 1 sertraline (Zoloft) 50 mg tablet Take 1 tablet (50 mg) by mouth once daily. 90 tablet 3 Cosigned by Mere George MD at 06/12/2025 7:04 PM EDT Associated attestation - Mere George MD - 06/12/2025 7:04 PM EDT I saw and evaluated the patient. I personally obtained the campos and critical portions of the history and physical exam or was physically present for campos and critical portions performed by the resident/fellow. I reviewed the resident/fellow's documentation and discussed the patient with the resident/fellow. I agree with the resident/fellow's medical decision making as documented in the note. 55F w/ a PMH of SCC of the supraglottic region (2007, s/p chemo/rads and laryngectomy with flap/TEF), alcohol use disorder, HTN, HLD, hypothyroidism who presented to OSH in septic shock and found to have a TEF. She has not been able to take thyroid replacement for the past week and thus has overt hypothyroidism on labs. We have been consulted to help with management. Home thyroid replacement 137 mcg daily and liothyronine 5 mcg daily. He is s/p one dose of 125 mcg IV levothyroxine, will give one more dose of 100 mcg IV levothyroxine tomorrow. After that will change to 150 mcg levothyroxine via PEG daily. Please stop tube feeds 60 min prior to administration and do not resume until 60 minutes after administration. Repeat TFTs 06/15. documented in this encounter [facility] Work Phone: 06-16-2025 Evaluation + Plan note Associated Problem(s): Tracheoesophageal fistula Vj Myers is a 55 y.o. 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 Was septic on arrival which was ultimately attributed to aspiration pneumonia/pneumonitis secondary to remote surgical TEF. Patient is now s/p EGD w/ esophageal stent placement, PEG tube placement and bronchoscopy 06/12 w/ Dr. Thomas. Patient decannulated 06/13, she is at risk for erosion between her trach tube and her new stent. Patient unable to speak with esophageal stent in place. Oxygenating well on trach collar. 06/15 unable to tolerated enteral feeds - layne residual/emesis, started on Reglan, NPO, IVF's [facility] Work Phone: 06-15-2025 Nurse Note Patient was at 77% on 4L NC, didn't feel SOB. Issues yesterday that required stopping of tube feeds to fix O2 status. Stopped tube feeds today and took out 100ml from tube even though feeds were @ 15ml/hr. Then went from 77% to 91%. Remi Jenkins [employer] at bedside, keep feeds off. To keep monitoring situation. Patient stable. [facility] 06-15-2025 Nurse Note Patient was at 77% on 4L NC, didn't feel SOB. Issues yesterday that required stopping of tube feeds to fix O2 status. Stopped tube feeds today and took out 100ml from tube even though feeds were @ 15ml/hr. Then went from 77% to 91%. Remi Jenkins [employer] at bedside, keep feeds off. To keep monitoring situation. Patient stable. documented in this encounter [facility] Work Phone: 06-15-2025 Evaluation + Plan note Associated Problem(s): Tracheoesophageal fistula Vj Myers is a 55 y.o. 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 Was septic on arrival which was ultimately attributed to aspiration pneumonia/pneumonitis secondary to remote surgical TEF. Patient is now s/p EGD w/ esophageal stent placement, PEG tube placement and bronchoscopy 06/12 w/ Dr. Thomas. Patient decannulated 06/13, she is at risk for erosion between her trach tube and her new stent. Patient unable to speak with esophageal stent in place. [facility] Work Phone: 06-14-2025 Evaluation + Plan note Associated Problem(s): Tracheoesophageal fistula jV Myers is a 55 y.o. 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 Was septic on arrival which was ultimately attributed to aspiration pneumonia/pneumonitis secondary to remote surgical TEF. Patient is now s/p EGD w/ esophageal stent placement, PEG tube placement and bronchoscopy 06/12 w/ Dr. Thomas. Patient decannulated 06/13, she is at risk for erosion between her trach tube and her new stent. Patient unable to speak with esophageal stent in place. [facility] Work Phone: 06-13-2025 Consult note Formatting of th is note is different from the original. ENT DEPARTMENT CONSULTATION NOTE Name: Vj Myers : 1970 Consulting Team: Thoracic surgery Reason for Consult: Laryngectomy patient History of Present Illness 55 y.o. 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 Was septic on arrival which was ultimately attributed to aspiration pneumonia/pneumonitis secondary to remote surgical TEF. Patient is now s/p EGD w/ esophageal stent placement, PEG tube placement and bronchoscopy 06/12 w/ Dr. Thomas. 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 There is conversations among attendings where for now the best course of action was a stent. However with the stent in place care must be taken to avoid excessive irritation between the esophagus and trachea. ENT was consulted for clearance of removal of LaryTube and recommendations for stoma management. Review of Systems 14 point review of systems completed and all negative except as noted in HPI. Past Medical History Medical History[1] Past Surgical History Surgical History[2] Allergies Allergies[3] Medications Current Medications[4] Family History Family History[5] Social History Social History Socioeconomic History Marital status: Single Spouse name: Not on file Number of children: Not on file Years of education: Not on file Highest education level: Not on file Occupational History Not on file Tobacco Use Smoking status: Former Types: Cigarettes Smokeless tobacco: Never Vaping Use Vaping status: Never Used Substance and Sexual Activity Alcohol use: Yes Alcohol/week: 20.0 - 42.0 standard drinks of alcohol Types: 20 - 42 Standard drinks or equivalent per week Comment: Son states patient drinks if she can get her hands on a pint, she will drink 3-4 pints at a time Drug use: Never Sexual activity: Not on file Other Topics Concern Not on file Social History Narrative Not on file Social Drivers of Health Financial Resource Strain: Low Risk (06/12/2025) Overall Financial Resource Strain (CARDIA) Difficulty of Paying Living Expenses: Not hard at all Food Insecurity: No Food Insecurity (06/12/2025) Hunger Vital Sign Worried About Running Out of Food in the Last Year: Never true Ran Out of Food in the Last Year: Never true Transportation Needs: Unmet Transportation Needs (06/12/2025) PRAPARE - Transportation Lack of Transportation (Medical): Yes Lack of Transportation (Non-Medical): Yes Physical Activity: Not on file Stress: Not on file Social Connections: Not on file Intimate Partner Violence: Not At Risk (06/12/2025) Humiliation, Afraid, Rape, and Kick questionnaire Fear of Current or Ex-Partner: No Emotionally Abused: No Physically Abused: No Sexually Abused: No Housing Stability: Low Risk (06/12/2025) Housing Stability Vital Sign Unable to Pay for Housing in the Last Year: No Number of Times Moved in the Last Year: 0 Homeless in the Last Year: No Vital Signs Vitals: 06/13/25 1741 BP: 110/78 Pulse: 84 Resp: 16 Temp: 36 C (96.8 F) SpO2: 94% Physical Examination GENERAL: in no acute distress, does not phonate RESPIRATION: breathing comfortable, nonlabored CV: No clubbing/cyanosis/edema in hands EYES: Sclera normal NEURO: Responsive, CN grossly intact HEAD AND FACE: Skin with no masses or lesion EARS: Normal external ears NOSE: External nose midline, anterior rhinoscopy is normal ORAL CAVITY/OROPHARYNX/LIPS: Normal mucous membranes NECK/LYMPH: Post laryngectomy, free flap healing nicely, stoma well matured Laboratory and Data Results for orders placed or performed during the hospital encounter of 06/12/25 (from the past 24 hours) POCT GLUCOSE Result Value Ref Range POCT Glucose 111 (H) 74 - 99 mg/dL POCT GLUCOSE Result Value Ref Range POCT Glucose 92 74 - 99 mg/dL POCT GLUCOSE Result Value Ref Range POCT Glucose 79 74 - 99 mg/dL Vitamin B12 Result Value Ref Range Vitamin B12 1,069 (H) 211 - 911 pg/mL Folate Result Value Ref Range Folate, Serum 8.0 >5.0 ng/mL Calcium, Ionized Result Value Ref Range POCT Calcium, Ionized 1.16 1.1 - 1.33 mmol/L CBC Result Value Ref Range WBC 8.2 4.4 - 11.3 x10*3/uL nRBC 0.0 0.0 - 0.0 /100 WBCs RBC 2.80 (L) 4.00 - 5.20 x10*6/uL Hemoglobin 8.6 (L) 12.0 - 16.0 g/dL Hematocrit 28.8 (L) 36.0 - 46.0 % MCV 103 (H) 80 - 100 fL MCH 30.7 26.0 - 34.0 pg MCHC 29.9 (L) 32.0 - 36.0 g/dL RDW 17.1 (H) 11.5 - 14.5 % Platelets 167 150 - 450 x10*3/uL Coagulation Screen Result Value Ref Range Protime 12.5 (H) 9.8 - 12.4 seconds INR 1.1 0.9 - 1.1 aPTT 35 26 - 36 seconds Magnesium Result Value Ref Range Magnesium 2.07 1.60 - 2.40 mg/dL Renal Function Panel Result Value Ref Range Glucose 89 74 - 99 mg/dL Sodium 137 136 - 145 mmol/L Potassium 4.0 3.5 - 5.3 mmol/L Chloride 101 98 - 107 mmol/L Bicarbonate 29 21 - 32 mmol/L Anion Gap 11 10 - 20 mmol/L Urea Nitrogen 8 6 - 23 mg/dL Creatinine 0.84 0.50 - 1.05 mg/dL eGFR 82 >60 mL/min/1.73m*2 Calcium 7.6 (L) 8.6 - 10.6 mg/dL Phosphorus 3.7 2.5 - 4.9 mg/dL Albumin 2.0 (L) 3.4 - 5.0 g/dL POCT GLUCOSE Result Value Ref Range POCT Glucose 81 74 - 99 mg/dL POCT GLUCOSE Result Value Ref Range POCT Glucose 56 (L) 74 - 99 mg/dL POCT GLUCOSE Result Value Ref Range POCT Glucose 60 (L) 74 - 99 mg/dL PROCEDURE NOTE: Bronchoscopy through stoma For better visualization because of stoma and trachea, a flexible fiberoptic nasopharyngolaryngoscopy was performed. Patient was correctly identified and verbal consent obtained. These structures were found to be normal with the following notable findings: - Normal peeling stoma - Small piece of granulation tissue on posterior aspect of superior trachea near previous TEP site - No signs of erosion or destruction of trachea down to the level of nirmal Assessment Vj Myers is a 55 y.o. female who is known to ENT for laryngectomy back in 2007. She is here for complex septic management in addition to fistula repair with stent by thoracic surgery. ENT was asked to be involved as her stoma is somewhat near the fistula and they were hoping to avoid any excessive irritation or erosion. Conversation with attendings between Dr. Boyd and thoracic surgery. It was recommended to keep stoma open and convert to stomal sponge on the outside. The sponge will act like HME and prevent any debris from entering the stoma. Recommendations - Change stomal sponge as needed: The sponge has an adhesive strip that is to be adhered superior to the stoma and gently draped down over top, can be changed by patient, family, or nursing. Patient was educated on usage of sponge. - ENT to arrange follow-up with Dr. Rutherford for small piece of granulation tissue around the stoma - Cleared for discharge from ENT standpoint Seen and discussed with Dr. Rutherford who agrees with assessment and plan. 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, oral cavity, and pharynx History of throat cancer Personal history of Methicillin resistant Staphylococcus aureus infection History of methicillin resistant Staphylococcus aureus infection Personal history of other diseases of urinary system 10/26/2021 History of kidney disease [2] Past Surgical History: Procedure Laterality Date HYSTERECTOMY IR INJECTION EPIDURAL STEROID N/A 04/05/2024 L4-5 [facility] OTHER SURGICAL HISTORY 10/26/2021 Throat surgery OTHER SURGICAL HISTORY 10/26/2021 section OTHER SURGICAL HISTORY 10/26/2021 Bladder surgery OTHER SURGICAL HISTORY 10/26/2021 Hernia repair OTHER SURGICAL HISTORY 11/09/2021 Intra-articular corticosteroid injection [3] Allergies Allergen Reactions Iodinated Contrast Media Unknown Morphine Other Adhesive Rash Latex Hives, Other and Rash [4] Current Facility-Administered Medications: [Transfer Hold] alteplase (Cathflo Activase) injection 2 mg, 2 mg, intra-catheter, PRN, Lissy Carlin PA-C, 2 mg at 06/13/25 0031 [Transfer Hold] calcium gluconate 1 g in sodium chloride (iso) IV 50 mL, 1 g, intravenous, q6h PRN, Lissy Carlin PA-C [Transfer Hold] calcium gluconate 2 g in sodium chloride (iso) IV 100 mL, 2 g, intravenous, q6h PRN, Lissy Carlin PA-C [Transfer Hold] carvedilol (Coreg) tablet 6.25 mg, 6.25 mg, g-tube, BID, Shad Staton, DO, 6.25 mg at 06/13/25 1030 [Transfer Hold] dextrose 50 % injection 12.5 g, 12.5 g, intravenous, q15 min PRN, Lissy Carlin PA-C, 12.5 g at 06/13/25 1143 [Transfer Hold] dextrose 50 % injection 25 g, 25 g, intravenous, q15 min PRN, Lissy Carlin PA-C [Transfer Hold] folic acid (Folvite) tablet 1 mg, 1 mg, g-tube, Daily, Lissy Carlin PA-C, 1 mg at 06/13/25 1029 [Transfer Hold] glucagon (Glucagen) injection 1 mg, 1 mg, intramuscular, q15 min PRN, Lissy Carlin PA-C [Transfer Hold] glucagon (Glucagen) injection 1 mg, 1 mg, intramuscular, q15 min PRN, Lissy Carlin PA-C [Transfer Hold] heparin (porcine) injection 5,000 Units, 5,000 Units, subcutaneous, q8h, Lissy Carlin PA-C, 5,000 Units at 06/13/25 1143 [Transfer Hold] HYDROmorphone PF (Dilaudid) injection 0.2 mg, 0.2 mg, intravenous, q3h PRN, Yasmani Sosa MD, 0.2 mg at 06/13/25 1556 [Transfer Hold] insulin lispro injection 0-5 Units, 0-5 Units, subcutaneous, q4h, Lissy Carlin PA-C [Transfer Hold] levothyroxine (Synthroid, Levoxyl) tablet 150 mcg, 150 mcg, g-tube, Daily, Shad Staton DO [Transfer Hold] magnesium sulfate 2 g in sterile water for injection 50 mL, 2 g, intravenous, q6h PRN, Lissy Carlin PA-C [Transfer Hold] magnesium sulfate 4 g in sterile water for injection 100 mL, 4 g, intravenous, q6h PRN, Lissy Carlin PA-C [Transfer Hold] methocarbamol (Robaxin) injection 1,000 mg, 1,000 mg, intravenous, q8h PRN, Lissy Carlin PA-C multivitamin with minerals 1 tablet, 1 tablet, oral, Daily, Lulú Ponce MD, 1 tablet at 06/13/25 1029 [Transfer Hold] oxyCODONE (Roxicodone) solution 5 mg, 5 mg, oral, q6h PRN, Yasmani Sosa MD, 5 mg at 06/13/25 1349 oxygen (O2) therapy, 1 Dose, inhalation, Continuous - O2/gases, Lissy Carlin PA-C, Rate Verify Medical Gas at 06/13/25 0356 [Transfer Hold] pantoprazole (Protonix) injection 40 mg, 40 mg, intravenous, Daily, Lissy Carlin PA-C, 40 mg at 06/13/25 1030 piperacillin-tazobactam (Zosyn) 4.5 g in dextrose (iso) IV 100 mL, 4.5 g, intravenous, q6h, Lissy Carlin PA-C, Stopped at 06/13/25 1246 [Transfer Hold] potassium chloride 20 mEq in sterile water for injection 100 mL, 20 mEq, intravenous, q6h PRN, Lissy Carlin PA-C [Transfer Hold] thiamine (Vitamin B-1) tablet 100 mg, 100 mg, oral, Daily, Lissy Carlin PA-C [Transfer Hold] thiamine (Vitamin B1) injection 100 mg, 100 mg, intravenous, Daily, Lissy Carlin PA-C, 100 mg at 06/13/25 1031 [5] Family History Problem Relation Name Age of Onset Lung cancer Mother Heart failure Father Colon cancer Sister Diabetes Brother Heart failure Other Grandmother Cosigned by Isidra Rutherford MD at 06/13/2025 6:06 PM EDT Associated attestation - Isidra Rutherford MD - 06/13/2025 6:06 PM EDT ATTESTATION I saw and evaluated the patient. I personally obtained the campos and critical portions of the history and physical exam or was physically present for campos and critical portions performed by the resident/fellow. I reviewed the resident/fellow's documentation and discussed the patient with the resident/fellow. I agree with the resident/fellow's medical decision making as documented in the note with my edits made directly to the note. Isidra Rutherford MD [facility] Work Phone: 06-13-2025 Evaluation + Plan note Associated Problem(s): Tracheoesophageal fistula Vj Myers is a 55 y.o. 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 Was septic on arrival which was ultimately attributed to aspiration pneumonia/pneumonitis secondary to remote surgical TEF. Patient is now s/p EGD w/ esophageal stent placement, PEG tube placement and bronchoscopy 06/12 w/ Dr. Thomas. Patient decannulated 06/13, she is at risk for erosion between her trach tube and her new stent. Patient unable to speak with esophageal stent in place. [facility] Work Phone: 06-13-2025 Plan of care note Problem: Pain - Adult Goal: Verbalizes/displays adequate comfort level or baseline comfort level Outcome: Progressing Problem: Safety - Adult Goal: Free from fall injury Outcome: Progressing Problem: Discharge Planning Goal: Discharge to home or other facility with appropriate resources Outcome: Progressing Problem: Chronic Conditions and Co-morbidities Goal: Patient's chronic conditions and co-morbidity symptoms are monitored and maintained or improved Outcome: Progressing Problem: Nutrition Goal: Nutrient intake appropriate for maintaining nutritional needs Outcome: Progressing Problem: Skin Goal: Decreased wound size/increased tissue granulation at next dressing change Outcome: Progressing Goal: Participates in plan/prevention/treatment measures Outcome: Progressing Goal: Prevent/manage excess moisture Outcome: Progressing Goal: Prevent/minimize sheer/friction injuries Outcome: Progressing Goal: Promote/optimize nutrition Outcome: Progressing Goal: Promote skin healing Outcome: Progressing Problem: Fall/Injury Goal: Not fall by end of shift Outcome: Progressing Goal: Be free from injury by end of the shift Outcome: Progressing Goal: Verbalize understanding of personal risk factors for fall in the hospital Outcome: Progressing Goal: Verbalize understanding of risk factor reduction measures to prevent injury from fall in the home Outcome: Progressing Goal: Use assistive devices by end of the shift Outcome: Progressing Goal: Pace activities to prevent fatigue by end of the shift Outcome: Progressing Problem: Pain Goal: Takes deep breaths with improved pain control throughout the shift Outcome: Progressing Goal: Turns in bed with improved pain control throughout the shift Outcome: Progressing Goal: Walks with improved pain control throughout the shift Outcome: Progressing Goal: Performs ADL's with improved pain control throughout shift Outcome: Progressing Goal: Participates in PT with improved pain control throughout the shift Outcome: Progressing Goal: Free from opioid side effects throughout the shift Outcome: Progressing Goal: Free from acute confusion related to pain meds throughout the shift Outcome: Progressing [facility] 06-12-2025 Consult note Associated Order (s): IP CONSULT TO NUTRITION SERVICES Nutrition Initial Assessment: Nutrition Assessment Reason for Assessment: Enteral assessment/recommendation (TF) Patient is a 55 y.o. female presenting as a transfer from OSH for further management of tracheal esophageal fistula. S/p EGD with stent placement and PEG today. Tracheostomy placed through existing stoma at OSH due to worsening dysphagia and respiratory status. 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 Nutrition History: Food and Nutrient History: Pt reports she was eating fine prior to admission at OSH, interview kept brief as pt had just returned from OR. Anthropometrics: Height: 160 cm (5' 2.99) Weight: 89.9 kg (198 lb 3.1 oz) BMI (Calculated): 35.12 IBW/kg (Dietitian Calculated): 52.3 kg Weight History: Wt Readings from Last 10 Encounters: 06/12/25 89.9 kg (198 lb 3.1 oz) 06/11/25 91.4 kg (201 lb 6.4 oz) 01/12/25 81.6 kg (180 lb) 01/07/25 90.2 kg (198 lb 13.7 oz) 06/27/24 72.6 kg (160 lb) 05/29/24 72.6 kg (160 lb) 04/19/24 85.3 kg (188 lb) 04/08/24 79.8 kg (176 lb) 04/05/24 79.4 kg (175 lb) 03/25/24 84.4 kg (186 lb 1.6 oz) Weight Change %: wt gain of 18.8 kg x1 year, unclear if wt of 72.6 kg in summer of 2023 is accurate as pt UBW appears to be in the 80-90 kg range Nutrition Focused Physical Exam Findings: Subcutaneous Fat Loss: Orbital Fat Pads: Mild-Moderate (slight dark circles and slight hollowing) Buccal Fat Pads: Mild-Moderate (flat cheeks, minimal bounce) Triceps: Mild-Moderate (less than ample fat tissue) Muscle Wasting: Temporalis: Mild-Moderate (slight depression) Pectoralis (Clavicular Region): Mild-Moderate (some protrusion of clavicle) Deltoid/Trapezius: Mild-Moderate (slight protrusion of acromion process) Interosseous: Well nourished (muscle bulges) Edema: Edema: +1 trace Edema Location: generalized Nutrition Significant Labs: BG POCT trend: Results from last 7 days Lab Units 06/12/25 1200 06/12/25 1100 06/12/25 0930 06/12/25 0859 06/12/25 0803 POCT GLUCOSE mg/dL 74 54* 60* 61* 51* , Renal Lab Trend: Results from last 7 days Lab Units 06/12/25 0317 06/11/25 0451 06/10/25 0510 06/09/25 0419 POTASSIUM mmol/L 4.0 4.2 3.8 3.8 PHOSPHORUS mg/dL 3.6 -- -- 2.3* SODIUM mmol/L 141 141 142 141 MAGNESIUM mg/dL 1.62 1.63 1.61 1.72 EGFR mL/min/1.73m*2 78 79 81 87 BUN mg/dL 12 11 10 9 CREATININE mg/dL 0.88 0.87 0.85 0.80 Nutrition Specific Medications: Scheduled medications insulin lispro, 0-5 Units, subcutaneous, q4h multivitamin with minerals, 1 tablet, oral, Daily [START ON 06/13/2025] pantoprazole, 40 mg, intravenous, Daily [START ON 06/15/2025] thiamine, 100 mg, oral, Daily thiamine, 100 mg, intravenous, Daily Continuous medications dextrose 5 % and lactated Ringer's, 75 mL/hr, Last Rate: 75 mL/hr (06/12/25 1200) I/O: Last BM Date: 06/12/25; Stool Appearance: Loose (06/12/25 0800) Dietary Orders (From admission, onward) Start Ordered 06/12/25324 May Not Participate in Room Service ( ROOM SERVICE MAY NOT PARTICIPATE) Once Question: . Answer: Yes 06/12/2532406/12/25 030 NPO Diet; Effective now Diet effective now 06/12/25 0307 Estimated Needs: Total Energy Estimated Needs in 24 hours (kCal): (2281-2868) Method for Estimating Needs: 30-35 kcal/kg IBW Total Protein Estimated Needs in 24 Hours (g): 75 g Method for Estimating 24 Hour Protein Needs: 1.5 g/kg IBW Total Fluid Estimated Needs in 24 Hours (mL): 1800 mL Method for Estimating 24 Hour Fluid Needs: 35 ml/kg IBW Nutrition Diagnosis Malnutrition Diagnosis Patient has Malnutrition Diagnosis: Yes Diagnosis Status: New Malnutrition Diagnosis: Moderate malnutrition related to chronic disease or condition As Evidenced by: mild muscle loss and subcutaneous fat loss. Nutrition Diagnosis Patient has Nutrition Diagnosis: Yes Diagnosis Status (1): New Nutrition Diagnosis 1: Swallowing difficulty Related to (1): esophageal tracheal fistula As Evidenced by (1): imaging, EG + bronch results. Nutrition Interventions/Recommendations Nutrition prescription for enteral nutrition Nutrition Recommendations: Individualized Nutrition Prescription Provided for : Start Isosource 1.5 @ 15 ml/hr and incease by 10 ml q8h to goal rate of 45 ml/hr is reached. Free H20 flushes per SICU while in ICU. Once pt able to tolerate feeds at goal rate could transition to bolus feeds of 270 ml 4x/day with a 60 ml free H20 flush pre/post bolus additional free H20 flushes of 250 ml 2x/day between boluses. Nutrition Interventions/Goals: Enteral Intake: Management of composition of enteral nutrition, Management of delivery rate of enteral nutrition, Management of schedule of enteral nutrition Goal: 1080 ml Isosource 1.5 = 1620 kcal, 73 g protein, 825 ml free H20 Nutrition Monitoring and Evaluation Enteral and Parenteral Nutrition Intake Determination: Enteral nutrition intake - Tolerate TF at goal rate Electrolyte and Renal Panel: Electrolytes within normal limits Goal Status: New goal(s) identified Time Spent (min): 45 minutes [facility] 06-12-2025 Procedure note Date: 06/12/2025 OR Location: [facility] OR Name: Vj Myers, : 1970, Age: 55 y.o., , Sex: female Diagnosis Pre-op Diagnosis * Tracheoesophageal fistula [J86.0] Post-op Diagnosis * Tracheoesophageal fistula [J86.0] Procedures EGD, WITH STENT INSERTION 30553 - PA EGD ENDOSCOPIC STENT PLACEMENT W/WIRE& DILATION INSERTION, GASTROSTOMY TUBE, PERCUTANEOUS 27107 - PA EGD PERCUTANEOUS PLACEMENT GASTROSTOMY TUBE Surgeons * Huma Thomas - Primary Resident/Fellow/Other Registered Nurse Cardiovascular Icu: Surgeons and Role: * No surgeons found with a matching role * Staff: Fitness And Wellness Manager: Christopher Coto Person: Tabby Fitness And Wellness Manager: Fuentes Anesthesia Staff: Anesthesiologist: Mauirlio Valverde MD C-AA: KAROLINA Restrepo; KAROLINA Vargas Procedure Summary Anesthesia: General ASA: III Estimated Blood Loss: 2mL Intra-op Medications: Administrations occurring from 1234 to 1404 on 06/12/25: Medication Name Total Dose BUPivacaine-EPINEPHrine (PF) (Marcaine w/EPI) 0.25 %-1:200,000 injection 10 mL alteplase (Cathflo Activase) injection 2 mg Cannot be calculated calcium gluconate 1 g in sodium chloride (iso) IV 50 mL Cannot be calculated calcium gluconate 2 g in sodium chloride (iso) IV 100 mL Cannot be calculated dextrose 50 % injection 12.5 g Cannot be calculated dextrose 50 % injection 25 g Cannot be calculated glucagon (Glucagen) injection 1 mg Cannot be calculated glucagon (Glucagen) injection 1 mg Cannot be calculated HYDROmorphone PF (Dilaudid) injection 0.2 mg Cannot be calculated magnesium sulfate 2 g in sterile water for injection 50 mL Cannot be calculated magnesium sulfate 4 g in sterile water for injection 100 mL Cannot be calculated methocarbamol (Robaxin) injection 1,000 mg Cannot be calculated potassium chloride 20 mEq in sterile water for injection 100 mL Cannot be calculated thiamine (Vitamin B-1) tablet 100 mg Cannot be calculated thiamine (Vitamin B1) injection 100 mg Cannot be calculated levothyroxine (Synthroid) injection 125 mcg 125 mcg magnesium sulfate 4 g in sterile water for injection 100 mL Cannot be calculated acetaminophen (Ofirmev) injection 1,000 mg Cannot be calculated ceFAZolin (Ancef) 1 g 2 g dexAMETHasone (Decadron) 4 mg/mL IV Syringe 2 mL 8 mg folic acid (Folvite) tablet 1 mg Cannot be calculated heparin (porcine) injection 5,000 Units Cannot be calculated insulin lispro injection 0-5 Units Cannot be calculated LR bolus Cannot be calculated lidocaine (cardiac) injection 2% prefilled syringe 100 mg midazolam PF (Versed) injection 1 mg/mL 1 mg ondansetron (Zofran) 2 mg/mL injection 4 mg pantoprazole (Protonix) injection 40 mg Cannot be calculated phenylephrine 100 mcg/mL syringe 10 mL (prefilled) 400 mcg piperacillin-tazobactam (Zosyn) 4.5 g in dextrose (iso) IV 100 mL Cannot be calculated propofol (Diprivan) injection 10 mg/mL 160 mg Anesthesia Record Intraprocedure I/O Totals None Specimen: No specimens collected Findings: Percutaneous PEG tube placed using transillumination with one-to-one touch differentiation and aspiration during needle insertion. The tracheoesophageal fistula was then visualized 15cm from the incisors. Stent placed and successfully discharged at 12cm from the incisors. Able to traverse the stent with endoscope. Bronchoscopy performed, mucous seen and suctioned, no food visualized in the airway. Able to visualize part of the tracheoesophageal fistula beneath her trach tube. Complications: None; patient tolerated the procedure well. Disposition: ICU - extubated and stable. Condition: stable Specimens Collected: No specimens collected Attending Attestation: Huma Thomas Maria Ines Woodson MD PGY2 Thoracic Surgery [id number] Cosigned by Huma Thomas DO at 06/15/2025 8:55 AM EDT [facility] Work Phone: 06-12-2025 Surgery Surgical operation note EGD, WITH STENT INSERTION, INSERTION, GASTROSTOMY TUBE, PERCUTANEOUS Operative Note Date: 06/12/2025 OR Location: [facility] OR Name: Vj Myers, : 1970, Age: 55 y.o., , Sex: female Diagnosis Pre-op Diagnosis * Tracheoesophageal fistula [J86.0] Post-op Diagnosis * Tracheoesophageal fistula [J86.0] Procedures EGD, percutaneous endoscopic gastrostomy tube placement, proximal esophageal stent, bronchoscopy Surgeons * Huma Thomas - Primary Resident/Fellow/Other Registered Nurse Cardiovascular Icu: Surgeons and Role: * No surgeons found with a matching role * Staff: Fitness And Wellness Manager: Lear Scrub Person: Tabby Fitness And Wellness Manager: Fuentes Anesthesia Staff: Anesthesiologist: Maurilio Valverde MD C-AA: KAROLINA Restrepo; KAROLINA Vargas Procedure Summary Anesthesia: General ASA: III Estimated Blood Loss: 10mL Intra-op Medications: Administrations occurring from 1234 to 1404 on 06/12/25: Medication Name Total Dose BUPivacaine-EPINEPHrine (PF) (Marcaine w/EPI) 0.25 %-1:200,000 injection 10 mL alteplase (Cathflo Activase) injection 2 mg Cannot be calculated calcium gluconate 1 g in sodium chloride (iso) IV 50 mL Cannot be calculated calcium gluconate 2 g in sodium chloride (iso) IV 100 mL Cannot be calculated dextrose 50 % injection 12.5 g Cannot be calculated dextrose 50 % injection 25 g Cannot be calculated glucagon (Glucagen) injection 1 mg Cannot be calculated glucagon (Glucagen) injection 1 mg Cannot be calculated HYDROmorphone PF (Dilaudid) injection 0.2 mg Cannot be calculated magnesium sulfate 2 g in sterile water for injection 50 mL Cannot be calculated magnesium sulfate 4 g in sterile water for injection 100 mL Cannot be calculated methocarbamol (Robaxin) injection 1,000 mg Cannot be calculated potassium chloride 20 mEq in sterile water for injection 100 mL Cannot be calculated thiamine (Vitamin B-1) tablet 100 mg Cannot be calculated thiamine (Vitamin B1) injection 100 mg Cannot be calculated levothyroxine (Synthroid) injection 125 mcg 125 mcg magnesium sulfate 4 g in sterile water for injection 100 mL Cannot be calculated acetaminophen (Ofirmev) injection 1,000 mg Cannot be calculated ceFAZolin (Ancef) 1 g 2 g dexAMETHasone (Decadron) 4 mg/mL IV Syringe 2 mL 8 mg folic acid (Folvite) tablet 1 mg Cannot be calculated heparin (porcine) injection 5,000 Units Cannot be calculated insulin lispro injection 0-5 Units Cannot be calculated LR bolus Cannot be calculated lidocaine (cardiac) injection 2% prefilled syringe 100 mg midazolam PF (Versed) injection 1 mg/mL 1 mg ondansetron (Zofran) 2 mg/mL injection 4 mg pantoprazole (Protonix) injection 40 mg Cannot be calculated phenylephrine 100 mcg/mL syringe 10 mL (prefilled) 400 mcg piperacillin-tazobactam (Zosyn) 4.5 g in dextrose (iso) IV 100 mL Cannot be calculated propofol (Diprivan) injection 10 mg/mL 160 mg Anesthesia Record Intraprocedure I/O Totals None Specimen: No specimens collected Drains and/or Catheters: Gastrostomy/Enterostomy Gastrostomy 20 Fr. LUQ (Active) External Urinary Catheter Female (Active) Present on Admission to Healthcare Facility N 06/12/25 08 Wall Suction (mmHg) 50 06/12/25 08 External Catheter Status Changed 06/12/25 08 Securement Method Adhesive device 06/12/25 08 Output (mL) 200 mL 06/12/25 06 Tourniquet Times: Implants: Implants Type Name Action Serial No. Stent STENT, ESOPHAGEAL ENDOMAXX 19MM X 120MM [facility] - [id number] Implanted Findings: Proximal tracheoesophageal fistula- esophageal side approx 15cm from the lips, approx 8-10mm in size. Indications: Vj Myers is an 55 y.o. 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 She presented to an outside hospital after being found down by family. Was septic on arrival, concern for UTI as well as aspiration pneumonia. She underwent a bronchoscopy showing food products within the lungs. Additional workup was positive for a tracheoesophageal fistula. Patient previously had a tracheal stoma, tracheostomy was replaced at the outside hospital for respiratory issues. We discussed temporizing intervention with a stent for occlusion as well as were later removal of her tracheostomy. Additionally we discussed PEG tube replacement for feeding access that she will have limited p.o. intake. Patient understands and is agreeable. The patient was seen in the preoperative area. The risks, benefits, complications, treatment options, non-operative alternatives, expected recovery and outcomes were discussed with the patient. The possibilities of reaction to medication, pulmonary aspiration, injury to surrounding structures, bleeding, recurrent infection, the need for additional procedures, failure to diagnose a condition, and creating a complication requiring transfusion or operation were discussed with the patient. The patient concurred with the proposed plan, giving informed consent. The site of surgery was properly noted/marked if necessary per policy. The patient has been actively warmed in preoperative area. Preoperative antibiotics have been ordered and given within 1 hours of incision. Venous thrombosis prophylaxis have been ordered including bilateral sequential compression devices and chemical prophylaxis Procedure Details: Patient was brought into the operating suite procedural information was confirmed. General anesthesia was induced and her tracheostomy was utilized for ventilation. We inserted the endoscope traversed the esophagus, though some narrowing quite proximally near her previous surgical site, down into the stomach and found her prior PEG tube site. This was reaccessed from the skin and using reverse Ponsky maneuvers the PEG tube was eventually pulled into the stomach after confirming one-to-one indentation & transillumination through her old scar as well as local anesthesia injection of quarter percent Marcaine. The tube was secured at approximately 3.5 cm of the skin with a bumper and this twisted easily. On further endoscopic view we found the area of the tracheoesophageal fistula at approximately 15 cm on the endoscope from the level of the mouth, this was approximately the size of a dime or 8-10mm in size. We were able to see her current tracheostomy cannula through the fistula. We then passed a guidewire down into the stomach and remove the endoscope. A [id number] EndoMaxx stent was placed under endoscopic guidance from ~12 cm proximally, right within the posterior pharynx, down to 24 cm distally. Proximally this was mildly stenotic but was eventually traversable with the endoscope. There was no significant bleeding, the esophagus and stent area were suctioned and the endoscope was removed. Her tracheostomy was carefully pulled back to see the membranous portion of the tracheoesophageal fistula, which was a couple millimeters beneath her stoma. Her tracheostomy was gently advanced back over our bronchoscope. Her tracheostomy was resecured. Patient was reversed from anesthesia and taken back to the ICU in stable condition. Evidence of Infection: No Complications: None; patient tolerated the procedure well. Disposition: ICU - intubated and hemodynamically stable. Condition: stable Additional Details: Na Attending Attestation: I was present for the entire procedure. Huma Thomas [facility] Work Phone: 06-12-2025 Consult note Associated Order (s): Inpatient consult to Endocrinology Inpatient consult to Endocrinology Consult performed by: Chetan Merchant MD Consult ordered by: Lindsay Shaffer APRN-YURIY Reason For Consult Hypothyroidism management History Of Present Illness Vj Myers is a 55 y.o. female presenting with SCC of the supraglottic region (2007, s/p chemo/rads and laryngectomy with flap/TEF), alcohol use disorder, HTN, HLD, hypothyroidism who presented to OSH in septic shock requiring pressor support thought to be secondary to UTI (CT CAP on admission w/ cystitis). During admission she was found to have TEF iso elective replacement of tracheostomy tube, as well as finding of bilateral pleural effusions/infiltrate suspicious for aspiration pneumonia/pneumonitis secondary to remote surgical TEF. She is currently scheduled for EGD w/ esophageal stent placelement today. During the last week she was NPO, had last taken her home levothyroxine 137 mcg and liothryonine 5 mcg on 06/06. Thyroid panel today showed hypothyroid state T4 0.63, TSH 32, she has received one dose 125 mcg IV levothyroxine today. Per patient she has not had problems with managing her hypothyroidism before admission, and currently is experiencing symptoms of cold, fatigue, insomnia, and increased hair loss. ROS: Fatigued Insomnia Increased appetite (has been NPO 1 week) Feeling cold No ocular sx- tearing, gritty sensation, itching Denies any chest pain, shortness of breath, palpitations. Has been having diarrhea Denies issues with urination No tremors, prox muscle weakness, cramps, tingling. No nausea/vomit or abdominal pain Past Medical History She has a past medical history of 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, oral cavity, and pharynx, Personal history of Methicillin resistant Staphylococcus aureus infection, and Personal history of other diseases of urinary system (10/26/2021). Surgical History She has a past surgical history that includes Other surgical history (10/26/2021); Other surgical history (10/26/2021); Other surgical history (10/26/2021); Other surgical history (10/26/2021); Other surgical history (11/09/2021); Hysterectomy; and IR injection epidural steroid (N/A, 04/05/2024). Social History She reports that she has quit smoking. Her smoking use included cigarettes. She has never used smokeless tobacco. She reports current alcohol use of about 20.0 - 42.0 standard drinks of alcohol per week. She reports that she does not use drugs. Family History Family History[1] Allergies Iodinated contrast media, Morphine, Adhesive, and Latex Medications Medications Ordered Prior to Encounter[2] ROS, PMH, FH/SH, surgical history and allergies have been reviewed. Physical Exam: Constitutional: NAD, obese body habitus, oxygen mask on trach site, well groomed. AOx3. Cooperative, difficulty speaking but can write. Skin/Hair: cold, dry skin. HEENT: EOMI, Anicteric scleras, No lid lag or lid retraction, Dry oral mucosa. Neck: Soft, supple. Non tender Thyroid gland palpation: non nodular, soft consistency, non tender, no bruit. Cardiovascular: RRR, no rub or murmurs. Respiratory: CTAB, no accessory muscle use. Abdomen: Soft, nontender to palpation. Extremities: Preserved peripheral pulses, No peripheral edema. Some new right lower extremity petechia and pain, the discoloration and flaky skin is not new per patient Neuro: Moving all extremities spontaneously. CN's grossly intact. Last Recorded Vitals Blood pressure (!) 127/95, pulse 94, temperature 36 C (96.8 F), temperature source Temporal, resp. rate 15, height 1.6 m (5' 2.99), weight 89.9 kg (198 lb 3.1 oz), SpO2 94%. Relevant Results Lab Results Component Value Date TSH 31.99 (H) 06/12/2025 TSH 18.60 (H) 06/05/2025 TSH 1.17 10/24/2023 TSH 2.52 06/03/2020 FREET4 0.63 (L) 06/12/2025 FREET4 1.13 (H) 06/05/2025 Results for orders placed or performed during the hospital encounter of 06/12/25 (from the past 24 hours) Calcium, Ionized Result Value Ref Range POCT Calcium, Ionized 1.13 1.1 - 1.33 mmol/L CBC Result Value Ref Range WBC 4.9 4.4 - 11.3 x10*3/uL nRBC 0.0 0.0 - 0.0 /100 WBCs RBC 2.63 (L) 4.00 - 5.20 x10*6/uL Hemoglobin 8.4 (L) 12.0 - 16.0 g/dL Hematocrit 27.7 (L) 36.0 - 46.0 % MCV 105 (H) 80 - 100 fL MCH 31.9 26.0 - 34.0 pg MCHC 30.3 (L) 32.0 - 36.0 g/dL RDW 18.1 (H) 11.5 - 14.5 % Platelets 153 150 - 450 x10*3/uL Coagulation Screen Result Value Ref Range Protime 13.2 (H) 9.8 - 12.4 seconds INR 1.2 (H) 0.9 - 1.1 aPTT 30 26 - 36 seconds Magnesium Result Value Ref Range Magnesium 1.62 1.60 - 2.40 mg/dL Renal Function Panel Result Value Ref Range Glucose 69 (L) 74 - 99 mg/dL Sodium 141 136 - 145 mmol/L Potassium 4.0 3.5 - 5.3 mmol/L Chloride 104 98 - 107 mmol/L Bicarbonate 28 21 - 32 mmol/L Anion Gap 13 10 - 20 mmol/L Urea Nitrogen 12 6 - 23 mg/dL Creatinine 0.88 0.50 - 1.05 mg/dL eGFR 78 >60 mL/min/1.73m*2 Calcium 7.8 (L) 8.6 - 10.6 mg/dL Phosphorus 3.6 2.5 - 4.9 mg/dL Albumin 2.1 (L) 3.4 - 5.0 g/dL TSH with reflex to Free T4 if abnormal Result Value Ref Range Thyroid Stimulating Hormone 31.99 (H) 0.44 - 3.98 mIU/L Thyroxine, Free Result Value Ref Range Thyroxine, Free 0.63 (L) 0.78 - 1.48 ng/dL Type and screen Result Value Ref Range ABO TYPE O Rh TYPE POS ANTIBODY SCREEN NEG POCT GLUCOSE Result Value Ref Range POCT Glucose 61 (L) 74 - 99 mg/dL Respiratory Culture/Smear Specimen: SPUTUM; Fluid Result Value Ref Range Respiratory Culture/Smear (A) Culture not performed. See Gram stain findings. Recollect if clinically indicated. Gram Stain (A) Gram stain indicates specimen contains significant salivary contamination. POCT GLUCOSE Result Value Ref Range POCT Glucose 81 74 - 99 mg/dL POCT GLUCOSE Result Value Ref Range POCT Glucose 55 (L) 74 - 99 mg/dL POCT GLUCOSE Result Value Ref Range POCT Glucose 51 (L) 74 - 99 mg/dL POCT GLUCOSE Result Value Ref Range POCT Glucose 61 (L) 74 - 99 mg/dL POCT GLUCOSE Result Value Ref Range POCT Glucose 60 (L) 74 - 99 mg/dL Assessment/Plan Vj Myers is a 55 y.o. female with chronic hypothyroidism on 137 levothyroxine, 5 liothyronine at home without prior issues, currently admitted for TEF iso trach replacement with cf aspiration pneumonia/pneumonitis, found to be hypothyroid on TSH/T4 06/12 iso not taking thyroid medications while NPO. Would recommend decreasing to 100 mcg IV levothyroxine tomorrow, then switching to 150 mcg levothyroxine PO/via PEG tube making sure to hold tube feeds 1 hour before and after giving levothyroxine, and repeating T4 & TSH on 06/15. #Chronic Hypothyroidism Home meds: 137 levothyroxine, 5 liothyronine - Currently got 1 dose 125 IV levothyroxine (equivalent to ~166 PO) 06/12 - Weight based levothyroxine dosing (1.6 mcg/kg) would be 144 PO, recommending decreasing injection levothyroxine 100 mcg IV tomorrow. - Switch to tablet levothyroxine 150 mcg orally/via PEG tube on 06/14. Please make sure to hold tube feeds 1 hour before and after giving levothyroxine - Repeat T4 & TSH on Patient was seen, examined and plan was discussed with Dr. Chetan Merchant MD [1] Family History Problem Relation Name Age of Onset Lung cancer Mother Heart failure Father Colon cancer Sister Diabetes Brother Heart failure Other Grandmother [2] Current Facility-Administered Medications on File Prior to Encounter Medication Dose Route Frequency Provider Last Rate Last Admin [COMPLETED] diazePAM (Valium) injection 2 mg 2 mg intravenous Once Lucretia Mcfarland MD 2 mg at 06/11/25 1115 [COMPLETED] sodium chloride (PF) 0.9% solution - [employer] Override Pull Given at 06/11/252109 [DISCONTINUED] acetaminophen (Tylenol) tablet 975 mg 975 mg oral q8h PRN Sylvia Bonilla MD [DISCONTINUED] alteplase (Cathflo Activase) injection 2 mg 2 mg intra-catheter PRN Anne Gonzales DO [DISCONTINUED] amLODIPine (Norvasc) tablet 5 mg 5 mg oral Daily Sylvia Bonilla MD [DISCONTINUED] carvedilol (Coreg) tablet 6.25 mg 6.25 mg oral BID Sylvia Bonilla MD [DISCONTINUED] diazePAM (Valium) injection 10 mg 10 mg intravenous q2h PRN Sylvia Bonilla MD 10 mg at 06/11/25 2307 [DISCONTINUED] folic acid (Folvite) tablet 1 mg 1 mg oral Daily Sylvia Bonilla MD 1 mg at 06/06/25 0805 [DISCONTINUED] folic acid 1 mg in sodium chloride 0.9% 50 mL IV 1 mg intravenous q24h Talib Maza DO Stopped at 06/11/25 2203 [DISCONTINUED] furosemide (Lasix) tablet 20 mg 20 mg oral Daily Sylvia Bonilla MD [DISCONTINUED] ipratropium-albuteroL (Duo-Neb) 0.5-2.5 mg/3 mL nebulizer solution 3 mL 3 mL nebulization 4x daily Sylvia Bonilla MD 3 mL at 06/11/25 2143 [DISCONTINUED] ketorolac (Toradol) injection 15 mg 15 mg intravenous q6h PRN Talib Maza DO 15 mg at 06/11/25 1750 [DISCONTINUED] levothyroxine (Synthroid, Levoxyl) tablet 137 mcg 137 mcg oral Daily Sylvia Bonilla MD 137 mcg at 06/06/25 0802 [DISCONTINUED] liothyronine (Cytomel) tablet 5 mcg 5 mcg oral Daily Sylvia Bonilla MD 5 mcg at 06/06/25 0806 [DISCONTINUED] LORazepam (Ativan) injection 0.5 mg 0.5 mg intravenous Once Lucretia Mcfarland MD [DISCONTINUED] LORazepam (Ativan) tablet 0.5 mg 0.5 mg oral BID Sylvia Bonilla MD 0.5 mg at 06/06/25 0806 [DISCONTINUED] magnesium oxide (Mag-Ox) 400 mg (241.3 mg elemental) tablet 1 tablet 400 mg of magnesium oxide oral BID Sylvia Bonilla MD 1 tablet at 06/06/25 0803 [DISCONTINUED] methocarbamol (Robaxin) tablet 500 mg 500 mg oral q6h PRN Sylvia Bonilla MD [DISCONTINUED] midodrine (Proamatine) tablet 10 mg 10 mg oral TID Talib Maza DO [DISCONTINUED] multivitamin with minerals 1 tablet 1 tablet oral Daily Sylvia Bonilla MD 1 tablet at 06/06/25 0802 [DISCONTINUED] nystatin (Mycostatin) 100,000 unit/gram powder 1 Application 1 Application Topical BID Lucretia Mcfarland MD 1 Application at 06/11/25 210 [DISCONTINUED] oxygen (O2) therapy inhalation Continuous - O2/gases Talib Maza DO Rate Verify Medical Gas at 06/11/25 2143 [DISCONTINUED] pantoprazole (Protonix) injection 40 mg 40 mg intravenous BID Talib Maza DO 40 mg at 06/11/25 2100 [DISCONTINUED] piperacillin-tazobactam (Zosyn) 4.5 g in dextrose (iso) IV 100 mL 4.5 g intravenous q6h Sylvia Bonilla MD Stopped at 06/12/25 0022 [DISCONTINUED] pregabalin (Lyrica) capsule 100 mg 100 mg oral TID Sylvia Bonilla MD 100 mg at 06/06/25 1418 [DISCONTINUED] sertraline (Zoloft) tablet 50 mg 50 mg oral Daily Sylvia Bonilla MD 50 mg at 06/06/25 0803 [DISCONTINUED] thiamine (Vitamin B-1) tablet 100 mg 100 mg oral Daily Sylvia Bonilla MD Current Outpatient Medications on File Prior to Encounter Medication Sig Dispense Refill acetaminophen (Tylenol) 325 mg tablet Take 2 tablets (650 mg) by mouth every 4 hours if needed for moderate pain (4 - 6) or mild pain (1 - 3). 30 tablet 0 amLODIPine (Norvasc) 5 mg tablet Take 1 tablet (5 mg) by mouth once daily. 30 tablet 11 atorvastatin (Lipitor) 20 mg tablet Take 1 tablet (20 mg) by mouth once daily. carvedilol (Coreg) 6.25 mg tablet Take 1 tablet (6.25 mg) by mouth 2 times a day. 30 tablet 0 citalopram (CeleXA) 20 mg tablet Take 1 tablet (20 mg) by mouth once daily. 30 tablet 11 disulfiram (Antabuse) 250 mg tablet Take 2 tablets (500 mg) by mouth once daily. folic acid (Folvite) 1 mg tablet Take 1 tablet (1 mg) by mouth once daily. furosemide (Lasix) 20 mg tablet Take 1 tablet (20 mg) by mouth once daily. 90 tablet 3 ipratropium-albuteroL (Duo-Neb) 0.5-2.5 mg/3 mL nebulizer solution Take 3 mL by nebulization 4 times a day. levothyroxine (Synthroid, Levoxyl) 137 mcg tablet Take 1 tablet (137 mcg) by mouth once daily. 90 tablet 3 liothyronine (Cytomel) 5 mcg tablet Take 1 tablet (5 mcg) by mouth once daily. 90 tablet 3 LORazepam (Ativan) 0.5 mg tablet Take 1 tablet (0.5 mg) by mouth 2 times a day for 5 days. 10 tablet 0 magnesium oxide (Mag-Ox) 400 mg tablet Take 1 tablet (400 mg) by mouth 2 times a day. omeprazole (PriLOSEC) [address] capsule Take 1 capsule (40 mg) by mouth once daily. 30 capsule 6 oxygen (O2) gas therapy Inhale 1 each once every 24 hours. pregabalin (Lyrica) 100 mg capsule Take 1 capsule (100 mg) by mouth 3 times a day. 90 capsule 1 sertraline (Zoloft) 50 mg tablet Take 1 tablet (50 mg) by mouth once daily. 90 tablet 3 Cosigned by Mere George MD at 06/12/2025 7:04 PM EDT Associated attestation - Mere George MD - 06/12/2025 7:04 PM EDT I saw and evaluated the patient. I personally obtained the campos and critical portions of the history and physical exam or was physically present for campos and critical portions performed by the resident/fellow. I reviewed the resident/fellow's documentation and discussed the patient with the resident/fellow. I agree with the resident/fellow's medical decision making as documented in the note. 55F w/ a PMH of SCC of the supraglottic region (2008, s/p chemo/rads and laryngectomy with flap/TEF), alcohol use disorder, HTN, HLD, hypothyroidism who presented to OSH in septic shock and found to have a TEF. She has not been able to take thyroid replacement for the past week and thus has overt hypothyroidism on labs. We have been consulted to help with management. Home thyroid replacement 137 mcg daily and liothyronine 5 mcg daily. He is s/p one dose of 125 mcg IV levothyroxine, will give one more dose of 100 mcg IV levothyroxine tomorrow. After that will change to 150 mcg levothyroxine via PEG daily. Please stop tube feeds 60 min prior to administration and do not resume until 60 minutes after administration. Repeat TFTs 06/15. [facility] Work Phone: 06-12-2025 Plan of care note The patient's goals for the shift include The clinical goals for the shift include pt. will remain HDS throughout shift Problem: Pain - Adult Goal: Verbalizes/displays adequate comfort level or baseline comfort level Outcome: Progressing Problem: Safety - Adult Goal: Free from fall injury Outcome: Progressing Problem: Discharge Planning Goal: Discharge to home or other facility with appropriate resources Outcome: Progressing Problem: Chronic Conditions and Co-morbidities Goal: Patient's chronic conditions and co-morbidity symptoms are monitored and maintained or improved Outcome: Progressing Problem: Nutrition Goal: Nutrient intake appropriate for maintaining nutritional needs Outcome: Progressing Problem: Skin Goal: Decreased wound size/increased tissue granulation at next dressing change Outcome: Progressing Flowsheets (Taken 06/12/2025346) Decreased wound size/increased tissue granulation at next dressing change: Promote sleep for wound healing Protective dressings over bony prominences Utilize specialty bed per algorithm Goal: Participates in plan/prevention/treatment measures Outcome: Progressing Flowsheets (Taken 06/12/2025346) Participates in plan/prevention/treatment measures: Discuss with provider PT/OT consult Elevate heels Increase activity/out of bed for meals Goal: Prevent/manage excess moisture Outcome: Progressing Flowsheets (Taken 06/12/2025346) Prevent/manage excess moisture: Cleanse incontinence/protect with barrier cream Monitor for/manage infection if present Follow provider orders for dressing changes Moisturize dry skin Goal: Prevent/minimize sheer/friction injuries Outcome: Progressing Flowsheets (Taken 06/12/2025346) Prevent/minimize sheer/friction injuries: Complete micro-shifts as needed if patient unable. Adjust patient position to relieve pressure points, not a full turn Use pull sheet Turn/reposition every 2 hours/use positioning/transfer devices HOB 30 degrees or less Utilize specialty bed per algorithm Goal: Promote/optimize nutrition Outcome: Progressing Flowsheets (Taken 06/12/2025346) Promote/optimize nutrition: Discuss with provider if NPO > 2 days Monitor/record intake including meals Goal: Promote skin healing Outcome: Progressing Flowsheets (Taken 06/12/2025346) Promote skin healing: Assess skin/pad under line(s)/device(s) Protective dressings over bony prominences Turn/reposition every 2 hours/use positioning/transfer devices Ensure correct size (line/device) and apply per clay modeler instructions Rotate device position/do not position patient on device Problem: Fall/Injury Goal: Not fall by end of shift Outcome: Progressing Goal: Be free from injury by end of the shift Outcome: Progressing Goal: Verbalize understanding of personal risk factors for fall in the hospital Outcome: Progressing Goal: Verbalize understanding of risk factor reduction measures to prevent injury from fall in the home Outcome: Progressing Goal: Use assistive devices by end of the shift Outcome: Progressing Goal: Pace activities to prevent fatigue by end of the shift Outcome: Progressing Problem: Pain Goal: Takes deep breaths with improved pain control throughout the shift Outcome: Progressing Goal: Turns in bed with improved pain control throughout the shift Outcome: Progressing [facility] Work Phone: 06-12-2025 History and physical note History Of Present Illness Vj Myers is a 55 y.o. female presenting with history of SCC of the supraglottic region (2008, s/p chemo/rads and laryngectomy with flap/TEF creation for phonation; current stoma from prior tracheostomy site without trach in place on arrival to OSH) and alcohol use disorder (reportedly drinks >1 pint of liquor daily; alcohol negative on arrival to OSH) who presented to an OSH after being found lying on the steps at her home minimally responsive by her son. Was septic on arrival which was ultimately attributed to aspiration pneumonia/pneumonitis secondary to remote surgical TEF. On arrival to OSH, labs were notable for elevated lactate of 11.9, leukocytosis (16.0), hypokalemia, hypomagnesemia. She was given crystalloid and empiric antibiotics. Initially thought sepsis was due to UTI however she continued to have difficulty with her respiratory status, prompting the elective replacement of a tracheostomy tube. On 06/07, a bedside bronchoscopy was performed and demonstrated copious amount of food and secretions in the patient's airway. A tracheostomy tube was also placed. A modified barium swallow was performed that confirmed TEF without precise localization in setting of tracheostomy tube in place, as well as poor swallow mechanics. Ultimately prompted [place] [facility] [place] management of chronic TEF and need for distal enteral access. 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 She underwent systemic therapy followed by a partial laryngectomy with flap creation and intentional creation of a tracheoesophageal fistula for purposes of phonation, with insertion of a laryngeal speech prosthesis. Notably, had a PEG tube at that time. On arrival to [facility]: Hemodynamically appropriate. On trach mask. No leukocytosis. H/H 8.4/27.7. Past Medical History SCC of the supraglottic region (2007, s/p radiation/chemo/laryngectomy) Alcohol use disorder Asthma Anxiety Hypothyroidism MRSA pneumonia (recent MRSA swab neg) CKD Surgical History Partial laryngectomy with flap creation and TEF for phonation PEG section x2 Appendectomy Hysterectomy Hernia repair with mesh Social History Active tobacco use Reported alcohol use disorder (over 1 pint of alcohol a day) No other drug use Family History Family History[1] Allergies Iodinated contrast media, Morphine, Adhesive, and Latex Review of Systems Negative beyond what is noted in above HPI. Physical Exam GEN: lying in bed, NAD HEAD: atraumatic NECK: trach mask in place RESP: breathing comfortably via trach mask CV: no tachycardia per bedside monitor ABD: soft, nontender, nondistended, several well healed surgical scars, well healed prior PEG site NEURO: no focal deficits appreciated, unable to phonate but communicates well with writing/nodding/mouthing words PSYCH: appropriate Last Recorded Vitals Blood pressure (!) 143/108, pulse 78, temperature 36.3 C (97.3 F), temperature source Temporal, resp. rate 15, height 1.6 m (5' 2.99), weight 89.9 kg (198 lb 3.1 oz), SpO2 100%. 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 Oral contrast is intermittently seen slightly below the level of the tracheostomy tube and coming out of the tracheostomy tube. CT Neck: 1. Postoperative changes from total laryngectomy, creation of a neopharynx, and flap reconstruction. 2. Tracheostomy tube is in place. It is difficult to evaluate patient's known tracheoesophageal fistula as detailed above. 3. No new discrete masses are seen within the visualized aerodigestive tract and there is no cervical lymphadenopathy by size criteria. CT Chest: 1. Moderate bilateral pleural effusions with moderate bilateral lower lobe atelectasis. 2. Tracheostomy and laryngectomy. 3. Severe fatty infiltration of the liver. Assessment & Plan Tracheoesophageal fistula Vj Myers is a 55 y.o. 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 Ultimately found to have sepsis likely secondary to significant aspiration of food in setting of chronic surgical TEF. Transfer[place] [facility] [place] management of TEF and need for distal enteral access. Plan: - Admit to SICU - Continue empiric antibiotics - Plan for OR for EGD, possible esophageal stent and PEG placement with Dr. Thomas. Consent obtained. - NPO given aspiration/failed MBS/OR planning - Obtain type and screen Satrla Cervantes, PGY2 General Surgery [1] Family History Problem Relation Name Age of Onset Lung cancer Mother Heart failure Father Colon cancer Sister Diabetes Brother Heart failure Other Grandmother Cosigned by Huma Thomas DO at 06/15/2025 8:55 AM EDT Associated attestation - Huma Thomas DO - 06/15/2025 8:55 AM EDT I saw and evaluated the patient. I personally obtained the campos and critical portions of the history and physical exam or was physically present for campos and critical portions performed by the resident/fellow. I reviewed the resident/fellow's documentation and discussed the patient with the resident/fellow. The patient/family had the opportunity to discuss and ask questions. I agree with the resident/fellow's medical decision making as documented in the note. Patient with history of supraglottic SCC status posttreatment in 2007 who presented from the outside hospital with sepsis. During workup was found to have pneumonia with pieces of egg in the bronchus on bronchoscopy. Workup showed TEF. She was transferred here for additional care. History of significant alcoholism and malnutrition. Candidly discussed temporary occlusion of the TEF with feeding access and more definitive surgical treatment when she recovers, discussed importance of alcohol cessation. Currently patient is agreeable to these things. Plan for OR today. I spent 90 minutes in the professional and overall care of this patient. [facility] Work Phone: 06-12-2025 History and physical note History Of Present Illness Vj Myers is a 55 y.o. 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 Was septic on arrival which was ultimately attributed to aspiration pneumonia/pneumonitis secondary to remote surgical TEF. On arrival to OSH, labs were notable for elevated lactate of 11.9, leukocytosis (16.0), hypokalemia, hypomagnesemia. She was given crystalloid and empiric antibiotics. Initially thought sepsis was due to UTI however she continued to have difficulty with her respiratory status, prompting the elective replacement of a tracheostomy tube. On 06/07, a bedside bronchoscopy was performed and demonstrated copious amount of food and secretions in the patient's airway. A tracheostomy tube was also placed. A modified barium swallow was performed that confirmed TEF without precise localization in setting of tracheostomy tube in place, as well as poor swallow mechanics. Ultimately prompted transfer [place] [facility] [place] management of chronic TEF and need for distal enteral access. 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 She underwent systemic therapy followed by a partial laryngectomy with flap creation and intentional creation of a tracheoesophageal fistula for purposes of phonation, with insertion of a laryngeal speech prosthesis. Notably, had a PEG tube at that time. On arrival to [facility]: Hemodynamically appropriate. On trach mask. No leukocytosis. H/H 8.4/27.7. Past Medical History SCC of the supraglottic region (2007, s/p radiation/chemo/laryngectomy) Alcohol use disorder Asthma Anxiety Hypothyroidism MRSA pneumonia (recent MRSA swab neg) CKD Surgical History Partial laryngectomy with flap creation and TEF for phonation PEG section x2 Appendectomy Hysterectomy Hernia repair with mesh Social History Active tobacco use Reported alcohol use disorder (over 1 pint of alcohol a day) No other drug use Family History Family History[1] Allergies Iodinated contrast media, Morphine, Adhesive, and Latex Review of Systems Negative beyond what is noted in above HPI. Physical Exam GEN: lying in bed, NAD HEAD: atraumatic NECK: trach mask in place RESP: breathing comfortably via trach mask CV: no tachycardia per bedside monitor ABD: soft, nontender, nondistended, several well healed surgical scars, well healed prior PEG site NEURO: no focal deficits appreciated, unable to phonate but communicates well with writing/nodding/mouthing words PSYCH: appropriate Last Recorded Vitals Blood pressure (!) 143/108, pulse 78, temperature 36.3 C (97.3 F), temperature source Temporal, resp. rate 15, height 1.6 m (5' 2.99), weight 89.9 kg (198 lb 3.1 oz), SpO2 100%. 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 Oral contrast is intermittently seen slightly below the level of the tracheostomy tube and coming out of the tracheostomy tube. CT Neck: 1. Postoperative changes from total laryngectomy, creation of a neopharynx, and flap reconstruction. 2. Tracheostomy tube is in place. It is difficult to evaluate patient's known tracheoesophageal fistula as detailed above. 3. No new discrete masses are seen within the visualized aerodigestive tract and there is no cervical lymphadenopathy by size criteria. CT Chest: 1. Moderate bilateral pleural effusions with moderate bilateral lower lobe atelectasis. 2. Tracheostomy and laryngectomy. 3. Severe fatty infiltration of the liver. Assessment & Plan Tracheoesophageal fistula Vj Myers is a 55 y.o. 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 Ultimately found to have sepsis likely secondary to significant aspiration of food in setting of chronic surgical TEF. Transfer[place] [facility] [place] management of TEF and need for distal enteral access. Plan: - Admit to SICU - Continue empiric antibiotics - Plan for OR for EGD, possible esophageal stent and PEG placement with Dr. Thomas. Consent obtained. - NPO given aspiration/failed MBS/OR planning - Obtain type and screen Starla Cervantes, PGY2 General Surgery [1] Family History Problem Relation Name Age of Onset Lung cancer Mother Heart failure Father Colon cancer Sister Diabetes Brother Heart failure Other Grandmother Cosigned by Huma Thomas DO at 06/15/2025 8:55 AM EDT Associated attestation - Huma Thomas DO - 06/15/2025 8:55 AM EDT I saw and evaluated the patient. I personally obtained the campos and critical portions of the history and physical exam or was physically present for campos and critical portions performed by the resident/fellow. I reviewed the resident/fellow's documentation and discussed the patient with the resident/fellow. The patient/family had the opportunity to discuss and ask questions. I agree with the resident/fellow's medical decision making as documented in the note. Patient with history of supraglottic SCC status posttreatment in 2007 who presented from the outside hospital with sepsis. During workup was found to have pneumonia with pieces of egg in the bronchus on bronchoscopy. Workup showed TEF. She was transferred here for additional care. History of significant alcoholism and malnutrition. Candidly discussed temporary occlusion of the TEF with feeding access and more definitive surgical treatment when she recovers, discussed importance of alcohol cessation. Currently patient is agreeable to these things. Plan for OR today. I spent 90 minutes in the professional and overall care of this patient. SICU History & Physical Subjective HPI: Vj Myers is a 55 y.o. female with past medical history of SCC of the supraglottic region (2007, s/p chemo/rads and laryngectomy with flap/TEF creation for phonation with insertion of speech prothesis; current stoma without trach in place on arrival to OSH), alcohol use disorder (reportedly drinks >1 pint of liquor daily; alcohol negative on arrival to OSH), HTN, HLD, hypothyroidism who presented to an OSH after being found lying on the steps at her home minimally responsive by her son. On arrival to OSH, patient in septic shock requiring pressor support. Labs were notable for elevated lactate of 11.9, leukocytosis (16.0), hypokalemia, hypomagnesemia. Patient started on empiric vanc/zosyn. Blood cultures negative and urine culture contaminated. Sepsis initially thought to be secondary to UTI (CT CAP on admission w/ cystitis), however, patient continued to have dysphagia and respiratory distress with elective replacement of tracheostomy tube. Bedside bronchoscopy on 06/07 showed copious food and secretions in the patient's airway. A modified barium swallow was performed that confirmed TEF without precise localization in setting of tracheostomy tube in place, as well as poor swallow mechanics. CT chest on 06/10 with bilateral pleural effusions/infiltrate suspicious for aspiration pneumonia/pneumonitis secondary to remote surgical TEF. Patient was transferred [place] [facility] [place] management of chronic TEF and need for distal enteral access. Medical History[1] Surgical History[2] Prescriptions Prior to Admission[3] Iodinated contrast media, Morphine, Adhesive, and Latex Social History[4] Family History[5] Review of Systems: Review of Systems Constitutional: Positive for fatigue. Negative for fever. HENT: Positive for trouble swallowing. Eyes: Negative. Respiratory: Positive for cough. Gastrointestinal: Negative for abdominal distention and abdominal pain. Dark stools Genitourinary: Negative. Musculoskeletal: Positive for arthralgias and myalgias. Skin: Positive for pallor. Neurological: Negative. Psychiatric/Behavioral: The patient is nervous/anxious. Scheduled Medications: Scheduled Medications[6] Continuous Medications: Continuous Medications[7] PRN Medications: PRN Medications[8] Objective Vitals: Most Recent: Vitals: 06/12/25 0300 BP: (!) 143/108 Pulse: 79 Resp: 16 SpO2: 100% 24hr Min/Max: Temp Min: 36 C (96.8 F) Max: 36 C (96.8 F) Pulse Min: 79 Max: 116 BP Min: 80/58 Max: 143/108 Resp Min: 9 Max: 18 SpO2 Min: 100 % Max: 100 % I/O: No intake/output data recorded. Hemodynamic parameters for last 24 hours: Vent settings: FiO2 (%): [32 %-35 %] 35 % LDA: CVC 06/07/25 Triple lumen Non-tunneled Right Internal jugular (Active) Placement Date/Time: 06/07/25 1045 Hand Hygiene Performed Prior to CVC Insertion: Yes Site Prep: Chlorhexidine Site Prep Agent has Completely Dried Before Insertion: Yes All 5 Sterile Barriers Used (Gloves, Gown, Cap, Mask, Large Sterile Drape):... Number of days: 4 Surgical Airway Shiley Cuffed 8 (Active) Placement Date/Time: 10/23/23 1130 Placed By: ICU physician Surgical Airway Type: Tracheostomy Brand: Rosendo Style: Cuffed Size (mm): 8 Number of days: 597 External Urinary Catheter Female (Active) Placement Date/Time: 06/08/25 0600 Hand Hygiene Completed: Yes External Catheter Type: Female Number of days: 3 Physical Exam: Physical Exam Constitutional: Appearance: She is ill-appearing. Comments: pale Neck: Comments: 8.[address] with overlying trach mask Cardiovascular: Rate and Rhythm: Normal rate and regular rhythm. Pulmonary: Effort: Pulmonary effort is normal. Comments: Crackles bilateral lower lung chun Abdominal: General: Abdomen is flat. Palpations: Abdomen is soft. Musculoskeletal: Right lower leg: No edema. Left lower leg: No edema. Skin: General: Skin is warm and dry. Neurological: General: No focal deficit present. Mental Status: She is oriented to person, place, and time. Lab/Radiology/Diagnostic Review: Results for orders placed or performed during the hospital encounter of 06/05/25 (from the past 24 hours) CBC Result Value Ref Range WBC 4.5 4.4 - 11.3 x10*3/uL nRBC 0.0 0.0 - 0.0 /100 WBCs RBC 2.38 (L) 4.00 - 5.20 x10*6/uL Hemoglobin 7.6 (L) 12.0 - 16.0 g/dL Hematocrit 24.2 (L) 36.0 - 46.0 % MCV 102 (H) 80 - 100 fL MCH 31.9 26.0 - 34.0 pg MCHC 31.4 (L) 32.0 - 36.0 g/dL RDW 18.0 (H) 11.5 - 14.5 % Platelets 152 150 - 450 x10*3/uL Comprehensive Metabolic Panel Result Value Ref Range Glucose 79 74 - 99 mg/dL Sodium 141 136 - 145 mmol/L Potassium 4.2 3.5 - 5.3 mmol/L Chloride 106 98 - 107 mmol/L Bicarbonate 28 21 - 32 mmol/L Anion Gap 11 10 - 20 mmol/L Urea Nitrogen 11 6 - 23 mg/dL Creatinine 0.87 0.50 - 1.05 mg/dL eGFR 79 >60 mL/min/1.73m*2 Calcium 7.8 (L) 8.6 - 10.3 mg/dL Albumin 2.2 (L) 3.4 - 5.0 g/dL Alkaline Phosphatase 144 (H) 33 - 110 U/L Total Protein 4.6 (L) 6.4 - 8.2 g/dL AST 54 (H) 9 - 39 U/L Bilirubin, Total 0.6 0.0 - 1.2 mg/dL ALT 12 7 - 45 U/L Magnesium Result Value Ref Range Magnesium 1.63 1.60 - 2.40 mg/dL Imaging CT soft tissue neck w IV contrast Result Date: 06/11/2025 1. Postoperative changes from total laryngectomy, creation of a neopharynx, and flap reconstruction. 2. Tracheostomy tube is in place. It is difficult to evaluate patient's known tracheoesophageal fistula as detailed above. 3. No new discrete masses are seen within the visualized aerodigestive tract and there is no cervical lymphadenopathy by size criteria. This study was interpreted at [facility]. MACRO: None Signed by: Esdras Edgar 06/11/2025 7:59 AM Dictation workstation: [id number] CT chest w IV contrast Result Date: 06/10/2025 1. Moderate bilateral pleural effusions with moderate bilateral lower lobe atelectasis. 2. Tracheostomy and laryngectomy. 3. Severe fatty infiltration of the liver. 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 Oral contrast is intermittently seen slightly below the level of the tracheostomy tube and coming out of the tracheostomy tube. Please see detailed swallowing physiology above. MACRO: None Signed by: Yann Matthews 06/09/2025 1:19 PM Dictation workstation: [id number] XR chest 1 view Result Date: 06/07/2025 Bilateral basilar infiltrate and/or atelectasis. Interval placement of a right venous catheter. MACRO: none Signed by: Amy Gonzales 06/07/2025 12:25 PM Dictation workstation: [id number] XR chest 1 view Result Date: 06/07/2025 1. Worsening basilar airspace disease especially on the right. Pneumonia or aspiration pneumonitis in the differential MACRO: None Signed by: Surya Rubio 06/07/2025 9:16 AM Dictation workstation: [id number] CT chest abdomen pelvis wo IV contrast Result Date: 06/05/2025 Bladder is collapsed. There is gas seen within the anterior bladder wall consistent with emphysematous cystitis. No other definite acute process seen in the chest, abdomen or pelvis. There is marked steatosis of the liver. MACRO: None. Signed by: Bartolo Manuel 06/05/2025 8:43 PM Dictation workstation: [id number] CT head wo IV contrast Result Date: 06/05/2025 No acute intracranial abnormality. No acute fracture or traumatic subluxation of the cervical spine. MACRO: None Signed by: Bartolo Manuel 06/05/2025 8:38 PM Dictation workstation: [id number] CT cervical spine wo IV contrast Result Date: 06/05/2025 No acute intracranial abnormality. No acute fracture or traumatic subluxation of the cervical spine. MACRO: None Signed by: Bartolo Manuel 06/05/2025 8:38 PM Dictation workstation: [id number] XR chest 1 view Result Date: 06/05/2025 1. No evidence of acute cardiopulmonary process. MACRO: None Signed by: Surya Rubio 06/05/2025 6:50 PM Dictation workstation: [id number] Cardiology, Vascular, and Other Imaging ECG 12 lead Result Date: 06/09/2025 Sinus tachycardia Otherwise normal ECG When compared with ECG of 12-JAN-2025 17:34, Previous ECG has undetermined rhythm, needs review Criteria for Septal infarct are no longer Present Nonspecific T wave abnormality now evident in Lateral leads See ED provider note for full interpretation and clinical correlation Confirmed by Beatris Coello ([id number]) on 06/09/2025 12:50:01 PM Assessment/Plan Assessment: Vj Myers is a 55 y.o. female with past medical history of SCC of the supraglottic region (2008, s/p chemo/rads and laryngectomy with flap/TEF creation for phonation with insertion of speech prosthesis; stoma without trach in place on arrival to OSH), alcohol use disorder (reportedly drinks >1 pint of liquor daily; alcohol negative on arrival to OSH), HTN, HLD, hypothyroidism who initially presented to OSH on 06/05 with septic shock requiring pressor support. Sepsis initially thought to be secondary to UTI (cystitis noted on CT CAP), however patient with worsening dysphagia and respiratory decline requiring placement of tracheostomy through existing stoma with concern for aspiration PNA vs pneumonitis. Patient arrived to SICU as transfer from OSH for management of chronic TEF and need for distal enteral access. Plan: NEURO: History of anxiety and AUD (>1 pint of liquor every day). Alcohol level of 0 on arrival to OSH, was on previously on precedex gtt for alcohol withdrawal. - ongoing neuro and pain assessments - IV tylenol and PRN hydromorphone and robaxin for pain control - PT/OT consult - IV thiamine 100 mg - CIWA protocol for now. - Home meds: citalopram, sertraline, folic acid CV: HTN, HLD. Nuclear stress 05/30/2022 negative for inducible ischemia, LV EF 62%. Previously requiring levophed at OSH 2/2 septic shock, since resolved. Arrived to SICU hemodynamically stable, off pressors. 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 Hospitalized in Oct 2023 for PNA requiring placement of tracheostomy through her stoma for ventilatory support. Bronchoscopy on 06/07 with copious amounts of food and secretions. Acute on chronic hypoxic respiratory failure on trach collar with 8.0 cuffed Shiley through existing stoma. - Wean FiO2 as tolerated. - additional pulm toilet prn. GI: GERD on omeprazole. - Strict NPO, pending OR today for esophageal stent and PEG placement. - Advance diet per surgical service - PPI for GI prophylaxis : No history of renal disease. Baseline creatinine 0.8-1. - Volume resuscitation as needed - Maintain U/O >0.5ml/kg/hr - Check renal function panel post op and daily - Replete electrolytes to goal K>4, Mg>2, Phos>2.5, ionized Ca>1.10. HEME: Macrocytic anemia. Hgb was 14.6 back in December 2024, was 9.5 on admission at [facility]. Current hgb 7.6. Patient reports history of dark stools, however per chart review, none noted during current hospitalization at OSH. - CBC daily - T&S sent - SCDs and SQH for DVT prophylaxis - ongoing monitoring for s/s bleeding ENDO: Hypothyroidism. TSH 18.60 on 06/05, no reflex. No history of diabetes. - send TSH with reflex - Q4h BG - SSI Lispro per ICU protocol. - Home meds: synthroid 137 mcg, liothyronine 5 mcg ID: Afebrile, no leukocytosis. Patient initially started on IV vanc/zosyn at OSH for septic shock requiring pressor support. Blood cxs neg, urine cx contaminated. Initially suspected sepsis secondary to UTI with CT CAP on 06/05 showing gas in the anterior bladder consistent with emphysematous cystitis. Also c/f aspiration pneumonia vs pneumonitis given dysphagia and TEF. - send sputum cx - temp q4h, wbc daily - continue IV zosyn - ongoing monitoring for s/s infection Lines: - RIJ central line (06/07) Dispo: Admit to ICU. Patient seen and discussed with ICU attending Dr. Kuhn. Lul[facility] Ponce Anesthesiology, PGY3/CA2 SICU phone [phone] [1] Past Medical History: Diagnosis Date 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, oral cavity, and pharynx History of throat cancer Personal history of Methicillin resistant Staphylococcus aureus infection History of methicillin resistant Staphylococcus aureus infection Personal history of other diseases of urinary system 10/26/2021 History of kidney disease [2] Past Surgical History: Procedure Laterality Date HYSTERECTOMY IR INJECTION EPIDURAL STEROID N/A 04/05/2024 L4-5 [facility]I OTHER SURGICAL HISTORY 10/26/2021 Throat surgery OTHER SURGICAL HISTORY 10/26/2021 section OTHER SURGICAL HISTORY 10/26/2021 Bladder surgery OTHER SURGICAL HISTORY 10/26/2021 Hernia repair OTHER SURGICAL HISTORY 11/09/2021 Intra-articular corticosteroid injection [3] Medications Prior to Admission Medication Sig Dispense Refill Last Dose/Taking acetaminophen (Tylenol) 325 mg tablet Take 2 tablets (650 mg) by mouth every 4 hours if needed for moderate pain (4 - 6) or mild pain (1 - 3). 30 tablet 0 amLODIPine (Norvasc) 5 mg tablet Take 1 tablet (5 mg) by mouth once daily. 30 tablet 11 atorvastatin (Lipitor) 20 mg tablet Take 1 tablet (20 mg) by mouth once daily. carvedilol (Coreg) 6.25 mg tablet Take 1 tablet (6.25 mg) by mouth 2 times a day. 30 tablet 0 citalopram (CeleXA) 20 mg tablet Take 1 tablet (20 mg) by mouth once daily. 30 tablet 11 disulfiram (Antabuse) 250 mg tablet Take 2 tablets (500 mg) by mouth once daily. folic acid (Folvite) 1 mg tablet Take 1 tablet (1 mg) by mouth once daily. furosemide (Lasix) 20 mg tablet Take 1 tablet (20 mg) by mouth once daily. 90 tablet 3 ipratropium-albuteroL (Duo-Neb) 0.5-2.5 mg/3 mL nebulizer solution Take 3 mL by nebulization 4 times a day. levothyroxine (Synthroid, Levoxyl) 137 mcg tablet Take 1 tablet (137 mcg) by mouth once daily. 90 tablet 3 liothyronine (Cytomel) 5 mcg tablet Take 1 tablet (5 mcg) by mouth once daily. 90 tablet 3 LORazepam (Ativan) 0.5 mg tablet Take 1 tablet (0.5 mg) by mouth 2 times a day for 5 days. 10 tablet 0 magnesium oxide (Mag-Ox) 400 mg tablet Take 1 tablet (400 mg) by mouth 2 times a day. omeprazole (PriLOSEC) [address] capsule Take 1 capsule (40 mg) by mouth once daily. 30 capsule 6 oxygen (O2) gas therapy Inhale 1 each once every 24 hours. pregabalin (Lyrica) 100 mg capsule Take 1 capsule (100 mg) by mouth 3 times a day. 90 capsule 1 sertraline (Zoloft) 50 mg tablet Take 1 tablet (50 mg) by mouth once daily. 90 tablet 3 [4] Social History Tobacco Use Smoking status: Former Types: Cigarettes Smokeless tobacco: Never Vaping Use Vaping status: Never Used Substance Use Topics Alcohol use: Yes Comment: Son states patient drinks if she can get her hands on a pint, she will drink 3-4 pints at a time Drug use: Never [5] Family History Problem Relation Name Age of Onset Lung cancer Mother Heart failure Father Colon cancer Sister Diabetes Brother Heart failure Other Grandmother [6] [7] [8] Cosigned by Shaka Kuhn DO at 06/13/2025 2:01 AM EDT Associated attestation - Shaka Kuhn DO - 06/13/2025 2:01 AM EDT I saw and evaluated the patient. I personally obtained the campos and critical portions of the history and physical exam or was physically present for campos and critical portions performed by the resident/fellow. I reviewed the resident/fellow's documentation and discussed the patient with the resident/fellow. 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 The patient initially presented to OSH after she was found down by son in home. She is a daily pint a day drinker. She was admitted to ICU with septic shock thought initially due to UTI. She progressed with worsening respiratory failure thought to be due to aspiration pneumonia. She had high lactate and was requiring pressors. Tracheostomy tube was placed in laryngeal stoma due to worsening respiratory failure. On bedside bronchoscopy large amounts of food seen. Patient transferred for further management and thoracic surgery evaluation. Neuro: H/o anxiety, alcohol abuse. Last drink was prior to admission to hospital on 06/05. No current signs or symptoms of withdrawal. CIWA score, will assess need for medications. Liver enzymes mildly elevated, trending down. Acute pain, managed with IV tylenol and PRN hydromorphone. CV: H/o HTN, HLD. Prior septic shock at OSH, now resolved. Currently normotensive. Holding home antihypertensives for now Respiratory: Prior respiratory distress. 8.0 cuffed shiley now placed through laryngeal stoma. Currently saturating well on trach collar 35%. CXR ordered. Thoracic surgery planning for EGD stent. : No need for toro. mIVF GI: TEF. NPO. PPI. Thoracic surgery planning for EGD stent and PEG tube. Nutrition consult. Severe protein calorie malnutrition. Endo: SSI ID: Prior septic shock, urine culture negative. Aspiration pneumonia treated with Zosyn. Will continue Zosyn. Send sputum culture., Heme: Chronic anemia. Type and screen. SCDs and subQ heparin for DVT prophylaxis. Skin: no active issues Prophylaxis: SCDs, subQ heparin, PPI Lines: RIJ central line, PIV Dispo: Continue SICU care Plan discussed with resident, RN, and patient at bedside. Family to be updated as available. Shaka Kuhn D.O. Department of Anesthesiology & Perioperative Medicine CTICU/SICU Critical Care Senior Net Software Engineer This critically ill patient continues to be at risk for clinically significant deterioration / failure due to the above mentioned dysfunctional, unstable organ systems. I have personally identified and managed all complex critical care issues to prevent aforementioned clinical deterioration. Critical care time is spent at bedside and/or the immediate area and has included, but is not limited to, the review of diagnostic tests, labs, radiographs, serial assessments of hemodynamics, respiratory status, ventilatory management, review of consult team recommendations, and family updates. Time spent in procedures and teaching are reported separately. Critical Care Time: 45 minutes. documented in this encounter [facility] Work Phone: 06-12-2025 History and physical note SICU History & Physical Subjective HPI: Vj Myers is a 55 y.o. female with past medical history of SCC of the supraglottic region (2007, s/p chemo/rads and laryngectomy with flap/TEF creation for phonation with insertion of speech prothesis; current stoma without trach in place on arrival to OSH), alcohol use disorder (reportedly drinks >1 pint of liquor daily; alcohol negative on arrival to OSH), HTN, HLD, hypothyroidism who presented to an OSH after being found lying on the steps at her home minimally responsive by her son. On arrival to OSH, patient in septic shock requiring pressor support. Labs were notable for elevated lactate of 11.9, leukocytosis (16.0), hypokalemia, hypomagnesemia. Patient started on empiric vanc/zosyn. Blood cultures negative and urine culture contaminated. Sepsis initially thought to be secondary to UTI (CT CAP on admission w/ cystitis), however, patient continued to have dysphagia and respiratory distress with elective replacement of tracheostomy tube. Bedside bronchoscopy on 06/07 showed copious food and secretions in the patient's airway. A modified barium swallow was performed that confirmed TEF without precise localization in setting of tracheostomy tube in place, as well as poor swallow mechanics. CT chest on 06/10 with bilateral pleural effusions/infiltrate suspicious for aspiration pneumonia/pneumonitis secondary to remote surgical TEF. Patient was transferred [place] [facility] [place] management of chronic TEF and need for distal enteral access. Medical History[1] Surgical History[2] Prescriptions Prior to Admission[3] Iodinated contrast media, Morphine, Adhesive, and Latex Social History[4] Family History[5] Review of Systems: Review of Systems Constitutional: Positive for fatigue. Negative for fever. HENT: Positive for trouble swallowing. Eyes: Negative. Respiratory: Positive for cough. Gastrointestinal: Negative for abdominal distention and abdominal pain. Dark stools Genitourinary: Negative. Musculoskeletal: Positive for arthralgias and myalgias. Skin: Positive for pallor. Neurological: Negative. Psychiatric/Behavioral: The patient is nervous/anxious. Scheduled Medications: Scheduled Medications[6] Continuous Medications: Continuous Medications[7] PRN Medications: PRN Medications[8] Objective Vitals: Most Recent: Vitals: 06/12/25 0300 BP: (!) 143/108 Pulse: 79 Resp: 16 SpO2: 100% 24hr Min/Max: Temp Min: 36 C (96.8 F) Max: 36 C (96.8 F) Pulse Min: 79 Max: 116 BP Min: 80/58 Max: 143/108 Resp Min: 9 Max: 18 SpO2 Min: 100 % Max: 100 % I/O: No intake/output data recorded. Hemodynamic parameters for last 24 hours: Vent settings: FiO2 (%): [32 %-35 %] 35 % LDA: CVC 06/07/25 Triple lumen Non-tunneled Right Internal jugular (Active) Placement Date/Time: 06/07/25 1045 Hand Hygiene Performed Prior to CVC Insertion: Yes Site Prep: Chlorhexidine Site Prep Agent has Completely Dried Before Insertion: Yes All 5 Sterile Barriers Used (Gloves, Gown, Cap, Mask, Large Sterile Drape):... Number of days: 4 Surgical Airway Shiley Cuffed 8 (Active) Placement Date/Time: 10/23/23 1130 Placed By: ICU physician Surgical Airway Type: Tracheostomy Brand: Rosendo Style: Cuffed Size (mm): 8 Number of days: 597 External Urinary Catheter Female (Active) Placement Date/Time: 06/08/25 0600 Hand Hygiene Completed: Yes External Catheter Type: Female Number of days: 3 Physical Exam: Physical Exam Constitutional: Appearance: She is ill-appearing. Comments: pale Neck: Comments: 8.[address] with overlying trach mask Cardiovascular: Rate and Rhythm: Normal rate and regular rhythm. Pulmonary: Effort: Pulmonary effort is normal. Comments: Crackles bilateral lower lung chun Abdominal: General: Abdomen is flat. Palpations: Abdomen is soft. Musculoskeletal: Right lower leg: No edema. Left lower leg: No edema. Skin: General: Skin is warm and dry. Neurological: General: No focal deficit present. Mental Status: She is oriented to person, place, and time. Lab/Radiology/Diagnostic Review: Results for orders placed or performed during the hospital encounter of 06/05/25 (from the past 24 hours) CBC Result Value Ref Range WBC 4.5 4.4 - 11.3 x10*3/uL nRBC 0.0 0.0 - 0.0 /100 WBCs RBC 2.38 (L) 4.00 - 5.20 x10*6/uL Hemoglobin 7.6 (L) 12.0 - 16.0 g/dL Hematocrit 24.2 (L) 36.0 - 46.0 % MCV 102 (H) 80 - 100 fL MCH 31.9 26.0 - 34.0 pg MCHC 31.4 (L) 32.0 - 36.0 g/dL RDW 18.0 (H) 11.5 - 14.5 % Platelets 152 150 - 450 x10*3/uL Comprehensive Metabolic Panel Result Value Ref Range Glucose 79 74 - 99 mg/dL Sodium 141 136 - 145 mmol/L Potassium 4.2 3.5 - 5.3 mmol/L Chloride 106 98 - 107 mmol/L Bicarbonate 28 21 - 32 mmol/L Anion Gap 11 10 - 20 mmol/L Urea Nitrogen 11 6 - 23 mg/dL Creatinine 0.87 0.50 - 1.05 mg/dL eGFR 79 >60 mL/min/1.73m*2 Calcium 7.8 (L) 8.6 - 10.3 mg/dL Albumin 2.2 (L) 3.4 - 5.0 g/dL Alkaline Phosphatase 144 (H) 33 - 110 U/L Total Protein 4.6 (L) 6.4 - 8.2 g/dL AST 54 (H) 9 - 39 U/L Bilirubin, Total 0.6 0.0 - 1.2 mg/dL ALT 12 7 - 45 U/L Magnesium Result Value Ref Range Magnesium 1.63 1.60 - 2.40 mg/dL Imaging CT soft tissue neck w IV contrast Result Date: 06/11/2025 1. Postoperative changes from total laryngectomy, creation of a neopharynx, and flap reconstruction. 2. Tracheostomy tube is in place. It is difficult to evaluate patient's known tracheoesophageal fistula as detailed above. 3. No new discrete masses are seen within the visualized aerodigestive tract and there is no cervical lymphadenopathy by size criteria. This study was interpreted at [facility]. MACRO: None Signed by: Esdras Edgar 06/11/2025 7:59 AM Dictation workstation: [id number] CT chest w IV contrast Result Date: 06/10/2025 1. Moderate bilateral pleural effusions with moderate bilateral lower lobe atelectasis. 2. Tracheostomy and laryngectomy. 3. Severe fatty infiltration of the liver. Signed by: Janelle Foreman 06/10/2025 11:56 PM Dictation workstation: [id number] modified barium swallow study Result Date: 06/09/2025 Tracheoesophageal fistula without exact localization of the site of fistulization. Oral contrast is intermittently seen slightly below the level of the tracheostomy tube and coming out of the tracheostomy tube. Please see detailed swallowing physiology above. MACRO: None Signed by: Yann Matthews 06/09/2025 1:19 PM Dictation workstation: [id number] XR chest 1 view Result Date: 06/07/2025 Bilateral basilar infiltrate and/or atelectasis. Interval placement of a right venous catheter. MACRO: none Signed by: Amy Gonzales 06/07/2025 12:25 PM Dictation workstation: [id number] XR chest 1 view Result Date: 06/07/2025 1. Worsening basilar airspace disease especially on the right. Pneumonia or aspiration pneumonitis in the differential MACRO: None Signed by: Surya Rubio 06/07/2025 9:16 AM Dictation workstation: [id number] CT chest abdomen pelvis wo IV contrast Result Date: 06/05/2025 Bladder is collapsed. There is gas seen within the anterior bladder wall consistent with emphysematous cystitis. No other definite acute process seen in the chest, abdomen or pelvis. There is marked steatosis of the liver. MACRO: None. Signed by: Bartolo Manuel 06/05/2025 8:43 PM Dictation workstation: [id number] CT head wo IV contrast Result Date: 06/05/2025 No acute intracranial abnormality. No acute fracture or traumatic subluxation of the cervical spine. MACRO: None Signed by: Bartolo Manuel 06/05/2025 8:38 PM Dictation workstation: [id number] CT cervical spine wo IV contrast Result Date: 06/05/2025 No acute intracranial abnormality. No acute fracture or traumatic subluxation of the cervical spine. MACRO: None Signed by: Bartolo Manuel 06/05/2025 8:38 PM Dictation workstation: [id number] XR chest 1 view Result Date: 06/05/2025 1. No evidence of acute cardiopulmonary process. MACRO: None Signed by: Surya Rubio 06/05/2025 6:50 PM Dictation workstation: [id number] Cardiology, Vascular, and Other Imaging ECG 12 lead Result Date: 06/09/2025 Sinus tachycardia Otherwise normal ECG When compared with ECG of 12-JAN-2025 17:34, Previous ECG has undetermined rhythm, needs review Criteria for Septal infarct are no longer Present Nonspecific T wave abnormality now evident in Lateral leads See ED provider note for full interpretation and clinical correlation Confirmed by Beatris Coello ([id number]) on 06/09/2025 12:50:01 PM Assessment/Plan Assessment: Vj Myers is a 55 y.o. female with past medical history of SCC of the supraglottic region (2007, s/p chemo/rads and laryngectomy with flap/TEF creation for phonation with insertion of speech prosthesis; stoma without trach in place on arrival to OSH), alcohol use disorder (reportedly drinks >1 pint of liquor daily; alcohol negative on arrival to OSH), HTN, HLD, hypothyroidism who initially presented to OSH on 06/05 with septic shock requiring pressor support. Sepsis initially thought to be secondary to UTI (cystitis noted on CT CAP), however patient with worsening dysphagia and respiratory decline requiring placement of tracheostomy through existing stoma with concern for aspiration PNA vs pneumonitis. Patient arrived to SICU as transfer from OSH for management of chronic TEF and need for distal enteral access. Plan: NEURO: History of anxiety and AUD (>1 pint of liquor every day). Alcohol level of 0 on arrival to OSH, was on previously on precedex gtt for alcohol withdrawal. - ongoing neuro and pain assessments - IV tylenol and PRN hydromorphone and robaxin for pain control - PT/OT consult - IV thiamine 100 mg - CIWA protocol for now. - Home meds: citalopram, sertraline, folic acid CV: HTN, HLD. Nuclear stress 05/30/2022 negative for inducible ischemia, LV EF 62%. Previously requiring levophed at OSH 2/2 septic shock, since resolved. Arrived to SICU hemodynamically stable, off pressors. 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 Hospitalized in Oct 2023 for PNA requiring placement of tracheostomy through her stoma for ventilatory support. Bronchoscopy on 06/07 with copious amounts of food and secretions. Acute on chronic hypoxic respiratory failure on trach collar with 8.0 cuffed Shiley through existing stoma. - Wean FiO2 as tolerated. - additional pulm toilet prn. GI: GERD on omeprazole. - Strict NPO, pending OR today for esophageal stent and PEG placement. - Advance diet per surgical service - PPI for GI prophylaxis : No history of renal disease. Baseline creatinine 0.8-1. - Volume resuscitation as needed - Maintain U/O >0.5ml/kg/hr - Check renal function panel post op and daily - Replete electrolytes to goal K>4, Mg>2, Phos>2.5, ionized Ca>1.10. HEME: Macrocytic anemia. Hgb was 14.6 back in December 2024, was 9.5 on admission at [facility]. Current hgb 7.6. Patient reports history of dark stools, however per chart review, none noted during current hospitalization at OSH. - CBC daily - T&S sent - SCDs and SQH for DVT prophylaxis - ongoing monitoring for s/s bleeding ENDO: Hypothyroidism. TSH 18.60 on 06/05, no reflex. No history of diabetes. - send TSH with reflex - Q4h BG - SSI Lispro per ICU protocol. - Home meds: synthroid 137 mcg, liothyronine 5 mcg ID: Afebrile, no leukocytosis. Patient initially started on IV vanc/zosyn at OSH for septic shock requiring pressor support. Blood cxs neg, urine cx contaminated. Initially suspected sepsis secondary to UTI with CT CAP on 06/05 showing gas in the anterior bladder consistent with emphysematous cystitis. Also c/f aspiration pneumonia vs pneumonitis given dysphagia and TEF. - send sputum cx - temp q4h, wbc daily - continue IV zosyn - ongoing monitoring for s/s infection Lines: - RIJ central line (06/07) Dispo: Admit to ICU. Patient seen and discussed with ICU attending Dr. Kuhn. [facility] Anesthesiology, PGY3/CA2 SICU phone [phone] [1] Past Medical History: Diagnosis Date 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, oral cavity, and pharynx History of throat cancer Personal history of Methicillin resistant Staphylococcus aureus infection History of methicillin resistant Staphylococcus aureus infection Personal history of other diseases of urinary system 10/26/2021 History of kidney disease [2] Past Surgical History: Procedure Laterality Date HYSTERECTOMY IR INJECTION EPIDURAL STEROID N/A 04/05/2024 L4-5 CHI OTHER SURGICAL HISTORY 10/26/2021 Throat surgery OTHER SURGICAL HISTORY 10/26/2021 section OTHER SURGICAL HISTORY 10/26/2021 Bladder surgery OTHER SURGICAL HISTORY 10/26/2021 Hernia repair OTHER SURGICAL HISTORY 11/09/2021 Intra-articular corticosteroid injection [3] Medications Prior to Admission Medication Sig Dispense Refill Last Dose/Taking acetaminophen (Tylenol) 325 mg tablet Take 2 tablets (650 mg) by mouth every 4 hours if needed for moderate pain (4 - 6) or mild pain (1 - 3). 30 tablet 0 amLODIPine (Norvasc) 5 mg tablet Take 1 tablet (5 mg) by mouth once daily. 30 tablet 11 atorvastatin (Lipitor) 20 mg tablet Take 1 tablet (20 mg) by mouth once daily. carvedilol (Coreg) 6.25 mg tablet Take 1 tablet (6.25 mg) by mouth 2 times a day. 30 tablet 0 citalopram (CeleXA) 20 mg tablet Take 1 tablet (20 mg) by mouth once daily. 30 tablet 11 disulfiram (Antabuse) 250 mg tablet Take 2 tablets (500 mg) by mouth once daily. folic acid (Folvite) 1 mg tablet Take 1 tablet (1 mg) by mouth once daily. furosemide (Lasix) 20 mg tablet Take 1 tablet (20 mg) by mouth once daily. 90 tablet 3 ipratropium-albuteroL (Duo-Neb) 0.5-2.5 mg/3 mL nebulizer solution Take 3 mL by nebulization 4 times a day. levothyroxine (Synthroid, Levoxyl) 137 mcg tablet Take 1 tablet (137 mcg) by mouth once daily. 90 tablet 3 liothyronine (Cytomel) 5 mcg tablet Take 1 tablet (5 mcg) by mouth once daily. 90 tablet 3 LORazepam (Ativan) 0.5 mg tablet Take 1 tablet (0.5 mg) by mouth 2 times a day for 5 days. 10 tablet 0 magnesium oxide (Mag-Ox) 400 mg tablet Take 1 tablet (400 mg) by mouth 2 times a day. omeprazole (PriLOSEC) [address] capsule Take 1 capsule (40 mg) by mouth once daily. 30 capsule 6 oxygen (O2) gas therapy Inhale 1 each once every 24 hours. pregabalin (Lyrica) 100 mg capsule Take 1 capsule (100 mg) by mouth 3 times a day. 90 capsule 1 sertraline (Zoloft) 50 mg tablet Take 1 tablet (50 mg) by mouth once daily. 90 tablet 3 [4] Social History Tobacco Use Smoking status: Former Types: Cigarettes Smokeless tobacco: Never Vaping Use Vaping status: Never Used Substance Use Topics Alcohol use: Yes Comment: Son states patient drinks if she can get her hands on a pint, she will drink 3-4 pints at a time Drug use: Never [5] Family History Problem Relation Name Age of Onset Lung cancer Mother Heart failure Father Colon cancer Sister Diabetes Brother Heart failure Other Grandmother [6] [7] [8] Cosigned by Shaka Kuhn DO at 06/13/2025 2:01 AM EDT Associated attestation - Shaka Kuhn DO - 06/13/2025 2:01 AM EDT I saw and evaluated the patient. I personally obtained the capmos and critical portions of the history and physical exam or was physically present for campos and critical portions performed by the resident/fellow. I reviewed the resident/fellow's documentation and discussed the patient with the resident/fellow. 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 The patient initially presented to OSH after she was found down by son in home. She is a daily pint a day drinker. She was admitted to ICU with septic shock thought initially due to UTI. She progressed with worsening respiratory failure thought to be due to aspiration pneumonia. She had high lactate and was requiring pressors. Tracheostomy tube was placed in laryngeal stoma due to worsening respiratory failure. On bedside bronchoscopy large amounts of food seen. Patient transferred for further management and thoracic surgery evaluation. Neuro: H/o anxiety, alcohol abuse. Last drink was prior to admission to hospital on 06/05. No current signs or symptoms of withdrawal. CIWA score, will assess need for medications. Liver enzymes mildly elevated, trending down. Acute pain, managed with IV tylenol and PRN hydromorphone. CV: H/o HTN, HLD. Prior septic shock at OSH, now resolved. Currently normotensive. Holding home antihypertensives for now Respiratory: Prior respiratory distress. 8.0 cuffed shiley now placed through laryngeal stoma. Currently saturating well on trach collar 35%. CXR ordered. Thoracic surgery planning for EGD stent. : No need for toro. mIVF GI: TEF. NPO. PPI. Thoracic surgery planning for EGD stent and PEG tube. Nutrition consult. Severe protein calorie malnutrition. Endo: SSI ID: Prior septic shock, urine culture negative. Aspiration pneumonia treated with Zosyn. Will continue Zosyn. Send sputum culture., Heme: Chronic anemia. Type and screen. SCDs and subQ heparin for DVT prophylaxis. Skin: no active issues Prophylaxis: SCDs, subQ heparin, PPI Lines: RIJ central line, PIV Dispo: Continue SICU care Plan discussed with resident, RN, and patient at bedside. Family to be updated as available. Shaka Kuhn D.O. Department of Anesthesiology & Perioperative Medicine CTICU/SICU Critical Care Senior Net Software Engineer This critically ill patient continues to be at risk for clinically significant deterioration / failure due to the above mentioned dysfunctional, unstable organ systems. I have personally identified and managed all complex critical care issues to prevent aforementioned clinical deterioration. Critical care time is spent at bedside and/or the immediate area and has included, but is not limited to, the review of diagnostic tests, labs, radiographs, serial assessments of hemodynamics, respiratory status, ventilatory management, review of consult team recommendations, and family updates. Time spent in procedures and teaching are reported separately. Critical Care Time: 45 minutes. [facility] Work Phone: 06-12-2025 Miscellaneous Notes Patient currently leaving [facility] [place] [facility]. Denies current needs. Report given to ems and called to receiving nurse. Problem: Pain - Adult Goal: Verbalizes/displays adequate comfort level or baseline comfort level Outcome: Not Progressing Problem: Safety - Adult Goal: Free from fall injury Outcome: Not Progressing Problem: Discharge Planning Goal: Discharge to home or other facility with appropriate resources Outcome: Not Progressing Problem: Chronic Conditions and Co-morbidities Goal: Patient's chronic conditions and co-morbidity symptoms are monitored and maintained or improved Outcome: Not Progressing Problem: Nutrition Goal: Nutrient intake appropriate for maintaining nutritional needs Outcome: Not Progressing Problem: Fall/Injury Goal: Not fall by end of shift Outcome: Not Progressing Goal: Be free from injury by end of the shift Outcome: Not Progressing Goal: Verbalize understanding of personal risk factors for fall in the hospital Outcome: Not Progressing Goal: Verbalize understanding of risk factor reduction measures to prevent injury from fall in the home Outcome: Not Progressing Goal: Use assistive devices by end of the shift Outcome: Not Progressing Goal: Pace activities to prevent fatigue by end of the shift Outcome: Not Progressing Problem: Pain Goal: Takes deep breaths with improved pain control throughout the shift Outcome: Not Progressing Goal: Turns in bed with improved pain control throughout the shift Outcome: Not Progressing Goal: Walks with improved pain control throughout the shift Outcome: Not Progressing Goal: Performs ADL's with improved pain control throughout shift Outcome: Not Progressing Goal: Participates in PT with improved pain control throughout the shift Outcome: Not Progressing Goal: Free from opioid side effects throughout the shift Outcome: Not Progressing Goal: Free from acute confusion related to pain meds throughout the shift Outcome: Not Progressing Problem: Skin Goal: Decreased wound size/increased tissue granulation at next dressing change 06/11/2025 0925 by Kemi Luis Flowsheets (Taken 06/10/20252208 by Angelina Hoyos RN) Decreased wound size/increased tissue granulation at next dressing change: Promote sleep for wound healing 06/11/2025924 by Kemi Luis Outcome: Not Progressing Goal: Participates in plan/prevention/treatment measures 06/11/2025924 by Kemi Luis Flowsheets (Taken 06/10/20252208 by Angelina Hoyos RN) Participates in plan/prevention/treatment measures: Elevate heels 06/11/2025924 by Kemi Luis Outcome: Not Progressing Goal: Prevent/manage excess moisture 06/11/2025924 by Kemi Luis Flowsheets (Taken 06/10/20252208 by Angelina Hoyos, DANNI) Prevent/manage excess moisture: Monitor for/manage infection if present Cleanse incontinence/protect with barrier cream 06/11/2025924 by Kemi Luis Outcome: Not Progressing Goal: Prevent/minimize sheer/friction injuries 06/11/2025924 by Kemi Luis Flowsheets (Taken 06/10/20252208 by Angelina Hoyos RN) Prevent/minimize sheer/friction injuries: Use pull sheet Turn/reposition every 2 hours/use positioning/transfer devices 06/11/2025924 by Kemi Luis Outcome: Not Progressing Goal: Promote/optimize nutrition 06/11/2025924 by Kemi Fox (Taken 06/10/20252208 by Angelina Hoyos RN) Promote/optimize nutrition: Discuss with provider if NPO > 2 days 06/11/2025924 by Kemi Luis Outcome: Not Progressing Goal: Promote skin healing 06/11/2025924 by Kemi Luis Flowsheets (Taken 06/10/20252208 by Angelina Hoyos RN) Promote skin healing: Turn/reposition every 2 hours/use positioning/transfer devices 06/11/2025924 by Kemi Luis Outcome: Not Progressing Cosigned by He Guillory RN at 06/11/2025 12:41 PM EDT Problem: Pain - Adult Goal: Verbalizes/displays adequate comfort level or baseline comfort level Outcome: Not Progressing Problem: Safety - Adult Goal: Free from fall injury Outcome: Not Progressing Problem: Discharge Planning Goal: Discharge to home or other facility with appropriate resources Outcome: Not Progressing Problem: Chronic Conditions and Co-morbidities Goal: Patient's chronic conditions and co-morbidity symptoms are monitored and maintained or improved Outcome: Not Progressing Problem: Nutrition Goal: Nutrient intake appropriate for maintaining nutritional needs Outcome: Not Progressing Problem: Fall/Injury Goal: Not fall by end of shift Outcome: Not Progressing Goal: Be free from injury by end of the shift Outcome: Not Progressing Goal: Verbalize understanding of personal risk factors for fall in the hospital Outcome: Not Progressing Goal: Verbalize understanding of risk factor reduction measures to prevent injury from fall in the home Outcome: Not Progressing Goal: Use assistive devices by end of the shift Outcome: Not Progressing Goal: Pace activities to prevent fatigue by end of the shift Outcome: Not Progressing Problem: Pain Goal: Takes deep breaths with improved pain control throughout the shift Outcome: Not Progressing Goal: Turns in bed with improved pain control throughout the shift Outcome: Not Progressing Goal: Walks with improved pain control throughout the shift Outcome: Not Progressing Goal: Performs ADL's with improved pain control throughout shift Outcome: Not Progressing Goal: Participates in PT with improved pain control throughout the shift Outcome: Not Progressing Goal: Free from opioid side effects throughout the shift Outcome: Not Progressing Goal: Free from acute confusion related to pain meds throughout the shift Outcome: Not Progressing Problem: Skin Goal: Decreased wound size/increased tissue granulation at next dressing change Outcome: Not Progressing Goal: Participates in plan/prevention/treatment measures Outcome: Not Progressing Goal: Prevent/manage excess moisture Outcome: Not Progressing Goal: Prevent/minimize sheer/friction injuries Outcome: Not Progressing Goal: Promote/optimize nutrition Outcome: Not Progressing Goal: Promote skin healing Outcome: Not Progressing Cosigned by He Guillory RN at 06/11/2025 12:41 PM EDT Associated Problem(s): Sepsis, due to unspecified organism, unspecified whether acute organ dysfunction present (Multi) aspiration and developed pneumonia. Continue IV Zosyn. Been on fluids with dextrose lactated Ringer's at 75 mL/h. Continue IV antibiotics. Follow cultures.Bronchial wash was obtained on June 07. Associated Problem(s): UTI (urinary tract infection) Patient was initially started on IV vancomycin and Zosyn. Discontinued vancomycin at this time. unsure if the patient truly had a urinary tract infection. Blood cultures are negative. Urine culture is contaminated. Patient's infection may have been more related to aspiration pneumonia. UTI ruled out Problem: Pain - Adult Goal: Verbalizes/displays adequate comfort level or baseline comfort level Outcome: Progressing Problem: Safety - Adult Goal: Free from fall injury Outcome: Progressing Problem: Discharge Planning Goal: Discharge to home or other facility with appropriate resources Outcome: Progressing Problem: Chronic Conditions and Co-morbidities Goal: Patient's chronic conditions and co-morbidity symptoms are monitored and maintained or improved Outcome: Progressing Problem: Nutrition Goal: Nutrient intake appropriate for maintaining nutritional needs Outcome: Progressing Problem: Fall/Injury Goal: Not fall by end of shift Outcome: Progressing Goal: Be free from injury by end of the shift Outcome: Progressing Goal: Verbalize understanding of personal risk factors for fall in the hospital Outcome: Progressing Goal: Verbalize understanding of risk factor reduction measures to prevent injury from fall in the home Outcome: Progressing Goal: Use assistive devices by end of the shift Outcome: Progressing Goal: Pace activities to prevent fatigue by end of the shift Outcome: Progressing Associated Problem(s): Sepsis, due to unspecified organism, unspecified whether acute organ dysfunction present (Multi) aspiration and developed pneumonia. Continue IV Zosyn. Been on fluids with dextrose lactated Ringer's at 75 mL/h. Continue IV antibiotics. Follow cultures.Bronchial wash was obtained on June 07. Problem: Skin Goal: Decreased wound size/increased tissue granulation at next dressing change 06/10/2025 1032 by Kemi Luis Outcome: Progressing Flowsheets (Taken 06/10/2025136 by Angelina Hoyos, DANNI) Decreased wound size/increased tissue granulation at next dressing change: Promote sleep for wound healing 06/10/2025 0848 by Kemi Luis Flowsheets (Taken 06/10/2025136 by Angelina Hoyos RN) Decreased wound size/increased tissue granulation at next dressing change: Promote sleep for wound healing 06/10/2025 0848 by Kemi Luis Outcome: Progressing 06/10/2025 0847 by Kemi Luis Outcome: Progressing Cosigned by He Guillory RN at 06/10/2025 11:29 AM EDT Problem: Pain - Adult Goal: Verbalizes/displays adequate comfort level or baseline comfort level 06/10/2025 0848 by Kemi Luis Outcome: Progressing 06/10/2025 0847 by Kemi Luis Outcome: Progressing Problem: Safety - Adult Goal: Free from fall injury 06/10/2025 0848 by Kemi Luis Outcome: Progressing 06/10/2025 0847 by Kemi Luis Outcome: Progressing Problem: Discharge Planning Goal: Discharge to home or other facility with appropriate resources 06/10/2025 0848 by Kemi Luis Outcome: Progressing 06/10/2025 0847 by Kemi Luis Outcome: Progressing Problem: Chronic Conditions and Co-morbidities Goal: Patient's chronic conditions and co-morbidity symptoms are monitored and maintained or improved 06/10/2025 0848 by Kemi Luis Outcome: Progressing 06/10/2025 0847 by Kemi Luis Outcome: Progressing Problem: Nutrition Goal: Nutrient intake appropriate for maintaining nutritional needs 06/10/2025 0848 by Kemi Luis Outcome: Progressing 06/10/2025 0847 by Kemi Luis Outcome: Progressing Problem: Fall/Injury Goal: Not fall by end of shift 06/10/2025 0848 by Kemi Luis Outcome: Progressing 06/10/2025 0847 by Kemi Luis Outcome: Progressing Goal: Be free from injury by end of the shift 06/10/2025 0848 by Kemi Luis Outcome: Progressing 06/10/2025 0847 by Kemi Luis Outcome: Progressing Goal: Verbalize understanding of personal risk factors for fall in the hospital 06/10/2025 0848 by Kemi Luis Outcome: Progressing 06/10/2025 0847 by Kemi Luis Outcome: Progressing Goal: Verbalize understanding of risk factor reduction measures to prevent injury from fall in the home 06/10/2025 0848 by Kemi Luis Outcome: Progressing 06/10/202547 by Kemi Luis Outcome: Progressing Goal: Use assistive devices by end of the shift 06/10/2025 0848 by Kemi Luis Outcome: Progressing 06/10/2025 0847 by Kemi Luis Outcome: Progressing Goal: Pace activities to prevent fatigue by end of the shift 06/10/2025 0848 by Kemi Luis Outcome: Progressing 06/10/2025 0847 by Kemi Luis Outcome: Progressing Problem: Pain Goal: Takes deep breaths with improved pain control throughout the shift 06/10/2025 0848 by Kemi Luis Outcome: Progressing 06/10/2025 0847 by Kemi Luis Outcome: Progressing Goal: Turns in bed with improved pain control throughout the shift 06/10/2025 0848 by Kemi Luis Outcome: Progressing 06/10/2025 0847 by Kemi Luis Outcome: Progressing Goal: Walks with improved pain control throughout the shift 06/10/2025 0848 by Kemi Luis Outcome: Progressing 06/10/2025 0847 by Kemi Luis Outcome: Progressing Goal: Performs ADL's with improved pain control throughout shift 06/10/2025 0848 by Kemi Luis Outcome: Progressing 06/10/2025 0847 by Kemi Luis Outcome: Progressing Goal: Participates in PT with improved pain control throughout the shift 06/10/2025 0848 by Kemi Luis Outcome: Progressing 06/10/2025 0847 by Kemi Luis Outcome: Progressing Goal: Free from opioid side effects throughout the shift 06/10/2025 0848 by Kemi Luis Outcome: Progressing 06/10/2025 0847 by Kemi Luis Outcome: Progressing Goal: Free from acute confusion related to pain meds throughout the shift 06/10/2025 0848 by Kemi Luis Outcome: Progressing 06/10/2025 0847 by Kemi Luis Outcome: Progressing Problem: Skin Goal: Decreased wound size/increased tissue granulation at next dressing change 06/10/2025 0848 by Kemi Luis Outcome: Progressing 06/10/2025 0847 by Kemi Luis Outcome: Progressing Goal: Participates in plan/prevention/treatment measures 06/10/2025 0848 by Kemi Luis Outcome: Progressing 06/10/2025 0847 by Kemi Luis Outcome: Progressing Goal: Prevent/manage excess moisture 06/10/2025 0848 by Kemi Luis Outcome: Progressing 06/10/2025 0847 by Kemi Luis Outcome: Progressing Goal: Prevent/minimize sheer/friction injuries 06/10/2025 0848 by Kemi Luis Outcome: Progressing 06/10/2025 0847 by Kemi Luis Outcome: Progressing Goal: Promote/optimize nutrition 06/10/2025 0848 by Kemi Luis Outcome: Progressing 06/10/2025 0847 by Kemi Luis Outcome: Progressing Goal: Promote skin healing 06/10/2025 0848 by Kemi Luis Outcome: Progressing 06/10/2025 0847 by Kemi Luis Outcome: Progressing Cosigned by He Guillory RN at 06/10/2025 11:29 AM EDT Problem: Pain - Adult Goal: Verbalizes/displays adequate comfort level or baseline comfort level Outcome: Progressing Problem: Safety - Adult Goal: Free from fall injury Outcome: Progressing Problem: Discharge Planning Goal: Discharge to home or other facility with appropriate resources Outcome: Progressing Problem: Chronic Conditions and Co-morbidities Goal: Patient's chronic conditions and co-morbidity symptoms are monitored and maintained or improved Outcome: Progressing Problem: Nutrition Goal: Nutrient intake appropriate for maintaining nutritional needs Outcome: Progressing Problem: Fall/Injury Goal: Not fall by end of shift Outcome: Progressing Goal: Be free from injury by end of the shift Outcome: Progressing Goal: Verbalize understanding of personal risk factors for fall in the hospital Outcome: Progressing Goal: Verbalize understanding of risk factor reduction measures to prevent injury from fall in the home Outcome: Progressing Goal: Use assistive devices by end of the shift Outcome: Progressing Goal: Pace activities to prevent fatigue by end of the shift Outcome: Progressing Problem: Pain Goal: Takes deep breaths with improved pain control throughout the shift Outcome: Progressing Goal: Turns in bed with improved pain control throughout the shift Outcome: Progressing Goal: Walks with improved pain control throughout the shift Outcome: Progressing Goal: Performs ADL's with improved pain control throughout shift Outcome: Progressing Goal: Participates in PT with improved pain control throughout the shift Outcome: Progressing Goal: Free from opioid side effects throughout the shift Outcome: Progressing Goal: Free from acute confusion related to pain meds throughout the shift Outcome: Progressing Problem: Skin Goal: Decreased wound size/increased tissue granulation at next dressing change Outcome: Progressing Goal: Participates in plan/prevention/treatment measures Outcome: Progressing Goal: Prevent/manage excess moisture Outcome: Progressing Goal: Prevent/minimize sheer/friction injuries Outcome: Progressing Goal: Promote/optimize nutrition Outcome: Progressing Goal: Promote skin healing Outcome: Progressing Cosigned by He Guillory RN at 06/10/2025 11:29 AM EDT Associated Problem(s): UTI (urinary tract infection) Patient was initially started on IV vancomycin and Zosyn. Discontinued vancomycin at this time. unsure if the patient truly had a urinary tract infection. Blood cultures are negative. Urine culture is contaminated. Patient's infection may have been more related to aspiration pneumonia. UTI ruled out Problem: Pain - Adult Goal: Verbalizes/displays adequate comfort level or baseline comfort level 06/10/2025638 by Angelina Hoyos RN Outcome: Progressing 06/10/2025136 by Angelina Hoyos RN Outcome: Progressing Problem: Safety - Adult Goal: Free from fall injury 06/10/2025638 by Angelina Hoyos RN Outcome: Progressing 06/10/2025136 by Angelina Hoyos RN Outcome: Progressing Problem: Discharge Planning Goal: Discharge to home or other facility with appropriate resources 06/10/2025638 by Angelina Hoyos RN Outcome: Progressing 06/10/2025136 by Angelina Hoyos RN Outcome: Progressing Problem: Chronic Conditions and Co-morbidities Goal: Patient's chronic conditions and co-morbidity symptoms are monitored and maintained or improved 06/10/2025638 by Angelina Hoyos RN Outcome: Progressing 06/10/2025136 by Angelina Hoyos RN Outcome: Progressing Problem: Fall/Injury Goal: Not fall by end of shift 06/10/2025638 by Angelina Hoyos RN Outcome: Progressing 06/10/2025136 by Angelina Hoyos RN Outcome: Progressing Goal: Be free from injury by end of the shift 06/10/2025638 by Angelina Hoyos RN Outcome: Progressing 06/10/2025136 by Angelina Hoyos RN Outcome: Progressing Goal: Verbalize understanding of personal risk factors for fall in the hospital 06/10/2025638 by Angelina Hoyos RN Outcome: Progressing 06/10/2025136 by Angelina Hoyos RN Outcome: Progressing Goal: Verbalize understanding of risk factor reduction measures to prevent injury from fall in the home 06/10/2025638 by Angelina Hoyos RN Outcome: Progressing 06/10/2025136 by Angelina Hoyos RN Outcome: Progressing Goal: Use assistive devices by end of the shift 06/10/2025638 by Angelina Hoyos RN Outcome: Progressing 06/10/2025136 by Angelina Hoyos RN Outcome: Progressing Goal: Pace activities to prevent fatigue by end of the shift 06/10/2025638 by Angelina Hoyos RN Outcome: Progressing 06/10/2025136 by Angelina Hoyos RN Outcome: Progressing Problem: Nutrition Goal: Nutrient intake appropriate for maintaining nutritional needs 06/10/2025 0639 by Angelina Hoyos RN Outcome: Progressing 06/10/2025136 by Angelina Hoyos RN Outcome: Progressing Problem: Pain Goal: Takes deep breaths with improved pain control throughout the shift 06/10/2025 0639 by Angelina Hoyos RN Outcome: Progressing 06/10/2025136 by Angelina Hoyos RN Outcome: Progressing Goal: Turns in bed with improved pain control throughout the shift 06/10/2025 0639 by Angelina Hoyos RN Outcome: Progressing 06/10/2025136 by Angelina Hoyos RN Outcome: Progressing Goal: Walks with improved pain control throughout the shift 06/10/2025 06 by Angelina Hoyos RN Outcome: Progressing 06/10/2025136 by Angelina Hoyos RN Outcome: Progressing Goal: Performs ADL's with improved pain control throughout shift 06/10/2025 06 by Angelina Hoyos RN Outcome: Progressing 06/10/2025136 by Angelina Hoyos RN Outcome: Progressing Goal: Participates in PT with improved pain control throughout the shift 06/10/2025 06 by Angelina Hoyos RN Outcome: Progressing 06/10/2025136 by Angelina Hoyos RN Outcome: Progressing Goal: Free from opioid side effects throughout the shift 06/10/2025 0639 by Angelina Hoyos RN Outcome: Progressing 06/10/2025136 by Angelina Hoyos RN Outcome: Progressing Goal: Free from acute confusion related to pain meds throughout the shift 06/10/2025 0639 by Angelina Hoyos RN Outcome: Progressing 06/10/2025136 by Angelina Hoyos RN Outcome: Progressing Associated Problem(s): Sepsis, due to unspecified organism, unspecified whether acute organ dysfunction present (Multi) She very well could have aspiration and developed pneumonia. Continue IV Zosyn. Continue fluids with dextrose lactated Ringer's at 75 mL/h. Continue IV antibiotics. Follow cultures.Bronchial wash was obtained on June 07. Problem: Pain - Adult Goal: Verbalizes/displays adequate comfort level or baseline comfort level Outcome: Progressing Problem: Safety - Adult Goal: Free from fall injury Outcome: Progressing Problem: Discharge Planning Goal: Discharge to home or other facility with appropriate resources Outcome: Progressing Problem: Chronic Conditions and Co-morbidities Goal: Patient's chronic conditions and co-morbidity symptoms are monitored and maintained or improved Outcome: Progressing Problem: Nutrition Goal: Nutrient intake appropriate for maintaining nutritional needs Outcome: Progressing Problem: Fall/Injury Goal: Not fall by end of shift Outcome: Progressing Goal: Be free from injury by end of the shift Outcome: Progressing Goal: Verbalize understanding of personal risk factors for fall in the hospital Outcome: Progressing Goal: Verbalize understanding of risk factor reduction measures to prevent injury from fall in the home Outcome: Progressing Goal: Use assistive devices by end of the shift Outcome: Progressing Goal: Pace activities to prevent fatigue by end of the shift Outcome: Progressing Problem: Pain Goal: Takes deep breaths with improved pain control throughout the shift Outcome: Progressing Goal: Turns in bed with improved pain control throughout the shift Outcome: Progressing Goal: Walks with improved pain control throughout the shift Outcome: Progressing Goal: Performs ADL's with improved pain control throughout shift Outcome: Progressing Goal: Participates in PT with improved pain control throughout the shift Outcome: Progressing Goal: Free from opioid side effects throughout the shift Outcome: Progressing Goal: Free from acute confusion related to pain meds throughout the shift Outcome: Progressing Problem: Skin Goal: Decreased wound size/increased tissue granulation at next dressing change Outcome: Progressing Flowsheets (Taken 06/09/2025 1342) Decreased wound size/increased tissue granulation at next dressing change: Promote sleep for wound healing Goal: Participates in plan/prevention/treatment measures Outcome: Progressing Flowsheets (Taken 06/09/2025 1342) Participates in plan/prevention/treatment measures: Elevate heels Discuss with provider PT/OT consult Goal: Prevent/manage excess moisture Outcome: Progressing Flowsheets (Taken 06/09/2025 1342) Prevent/manage excess moisture: Moisturize dry skin Monitor for/manage infection if present Goal: Prevent/minimize sheer/friction injuries Outcome: Progressing Flowsheets (Taken 06/09/2025 134) Prevent/minimize sheer/friction injuries: HOB 30 degrees or less Turn/reposition every 2 hours/use positioning/transfer devices Use pull sheet Goal: Promote/optimize nutrition Outcome: Progressing Flowsheets (Taken 06/09/2025 1342) Promote/optimize nutrition: Discuss with provider if NPO > 2 days Goal: Promote skin healing Outcome: Progressing Flowsheets (Taken 06/09/2025 1342) Promote skin healing: Assess skin/pad under line(s)/device(s) Turn/reposition every 2 hours/use positioning/transfer devices The clinical goals for the shift include pain management and decreased CIWA scores Associated Problem(s): UTI (urinary tract infection) Patient was initially started on IV vancomycin and Zosyn. Discontinued vancomycin at this time. unsure if the patient truly had a urinary tract infection. Blood cultures are negative. Urine culture is contaminated. Patient's infection may have been more related to aspiration pneumonia. UTI ruled out The patient's goals for the shift include The clinical goals for the shift include pt will use alternative methods of communication to communicate with staff Pt has improved communication skills effectively using white board is struggling with difficult medical situations Associated Problem(s): UTI (urinary tract infection) Patient was initially started on IV vancomycin and Zosyn. Discontinue vancomycin at this time. I am unsure if the patient truly had a urinary tract infection. Blood cultures are negative. Urine culture is contaminated. Patient's infection may have been more related to aspiration pneumonia. Associated Problem(s): Sepsis, due to unspecified organism, unspecified whether acute organ dysfunction present (Multi) Potentially secondary to UTI but cultures have been negative so far. She very well could have aspiration and developed pneumonia. Continue IV Zosyn. Continue fluids with dextrose lactated Ringer's at 75 mL/h. Continue IV antibiotics. Follow cultures.Bronchial wash was obtained on June 07. The patient's goals for the shift include The clinical goals for the shift include patient will have bronc Associated Problem(s): UTI (urinary tract infection) Patient was initially started on IV vancomycin and Zosyn. Discontinue vancomycin at this time. Continue following cultures. I am unsure if the patient truly had a urinary tract infection. Blood cultures are negative. Urine culture is contaminated. Associated Problem(s): Sepsis, due to unspecified organism, unspecified whether acute organ dysfunction present (Multi) Potentially secondary to UTI but cultures have been negative so far. She very well could have aspiration and developed pneumonia. Continue IV Zosyn. Continue fluids with lactated Ringer's at 75 mL/h. Continue IV antibiotics. Follow cultures. The clinical goals for the shift include free from withdrawal side effects through shift Problem: Pain - Adult Goal: Verbalizes/displays adequate comfort level or baseline comfort level Outcome: Progressing Problem: Safety - Adult Goal: Free from fall injury Outcome: Progressing Problem: Fall/Injury Goal: Not fall by end of shift Outcome: Progressing Goal: Be free from injury by end of the shift Outcome: Progressing Problem: Pain Goal: Takes deep breaths with improved pain control throughout the shift Outcome: Progressing Goal: Turns in bed with improved pain control throughout the shift Outcome: Progressing Associated Problem(s): UTI (urinary tract infection) Patient was initially started on IV vancomycin and Zosyn. Discontinue vancomycin at this time. Continue following cultures. Associated Problem(s): Sepsis, due to unspecified organism, unspecified whether acute organ dysfunction present (Multi) Appears to be secondary to urinary tract infection. Will continue fluids decreased to 100 mL/h. Continue IV antibiotics. Follow cultures. The clinical goals for the shift include patient will have no syncopal episodes throughout shift. Problem: Pain - Adult Goal: Verbalizes/displays adequate comfort level or baseline comfort level Outcome: Progressing Problem: Safety - Adult Goal: Free from fall injury Outcome: Progressing Problem: Fall/Injury Goal: Not fall by end of shift Outcome: Progressing Goal: Be free from injury by end of the shift Outcome: Progressing Goal: Verbalize understanding of personal risk factors for fall in the hospital Outcome: Progressing Goal: Verbalize understanding of risk factor reduction measures to prevent injury from fall in the home Outcome: Progressing Goal: Use assistive devices by end of the shift Outcome: Progressing Goal: Pace activities to prevent fatigue by end of the shift Outcome: Progressing documented in this encounter [facility] Work Phone: 06-11-2025 Nurse Note Family and significant other at bedside. Pt appears calm and alert. Pt is a heavy two assist with walker and requires reminding to use chair and bed to stand, then walker. Pt requested to get up in chair, PT/OT assisted. Pt weak , 2 person assist. Tremors noted in R hand and both legs. Slight pain expressed in back. MD spoke with pt regarding treatment plans. Pt has no further needs at this time. Cosigned by He Guillory RN at 06/11/2025 12:41 PM EDT Pt resting calmly in bed, no family at bedside. Solumedrol given for scheduled CT per protocol. CT notified to schedule. Cosigned by He Guillory RN at 06/11/2025 6:57 AM EDT 1653- pt demanding oral fluids and medications. 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 Pt refused oral swabs. Pt wrote I'm leaving on her white board. Pt empowered to make positive choices. Reminded that she does not have DME for her trach at home. Educated that she does have the right to leave AMA. Provided empathy regarding the patients difficult situation regarding medical conditions and prognosis. Pt stopped communication with nursing staff. Offered education to support person in the room who denied needs. Physician notified of pts statement of intent to leave. RIJ Central Line placed at bedside by Dr. Gonzales. This RN at bedside. Pt tolerated procedure well. Xray at bedside to confirm placement. Lines locked and capped, sterile dressing dated and initialed. At 1931 this RN went to check on patient. Patient had moderate tremors of right lower leg, would look at this RN when her name was called, but did not attempt any verbal response which is a change in status from when patient was responsive verbally and physically. At 1934, this nurse sent a SecureChat to Dr. Bonilla, asking Dr Bonilla to come to bedside to evaluate patient. Dr Bonilla arrived to bedside and evaluated patient. This nurse was present during the evaluation. This nurse stepped out of the room to call phlebotomy for STAT labwork, and while out Dr Bonilla called out that the patient was vomiting. RT was called to bedside where pt was suctioned. RT and Dr Bonilla discussed patient needing a trach that fits, Dr Bonilla stated she would discuss with AM . RT called to room stat for pt change of status. Abg drawn and given to dr bonilla. Pt has a toro catheter in her stoma from home. Her stoma will barely fit the toro catheter. RT discussed with dr that Pt needs a trach that will fit but will most likely need dilated to get any size trach in there. Dr bonilla stated she will talk to AM . This RT called [facility] [place] because she has said that she does not have any stoma supplies. Sheela at [facility] said that the patient has not received any supplies since December 2024. It is the patient's responsibility to call and request supplies from [facility]. Sheela said the order is still good and she put a request in for the patient to get some supplies and they will be mailed to her. Dr. Maza and the patient was notified of the conversation with [facility]. Xi Ocasio [employer] MANAGER 12:00 PM documented in this encounter [facility] Work Phone: 06-11-2025 History of Present illness Narrative Per medical team, patient continues to await transfer. Per bedside nurse, patient's family asked for information re: HCPOA documents. Business Loan Processor met with patient/family at bedside to provide education re: same. Patient was sleeping soundly; Family accepted packet of POA documents to review with patient at a later time. Per [facility], [facility] the only [facility] considering acceptance at this time. SW to continue to send updated notes to [facility] via [facility] as notes available. Plan for patient is [place] [facility] [place] fistula, vs discharge to accepting SNF when medically ready; Patient has already had 3-midnight qualifying inpatient stay for Medicare coverage of SNF if necessary. Care Transitions to follow and assist as patient's discharge needs become clearer. [employer] Note Vj Myers was referred by Dario Casas RN Therapy Session Referral Type: New referral this admission Visit Type: Follow-up visit Session Start Time: 1420 Intervention Delivery: In-person Conflict of Service: Asleep Narrative Follow-up: MT will reattempt as able. Education Documentation No documentation found. Occupational Therapy OT Treatment Patient Name: Vj Myers Department: [facility] ICU Room: [address] [place] [address] Today's Date: 06/11/2025 Time Calculation Start Time: 846 Stop Time: 917 Time Calculation (min): 31 min Assessment: OT Assessment: pt needing more assist for mobility compared to initial assessment due to prolonged hospital stay with various medical complications. mod A x 2 for sit to stands and transfers with FWW. Cont with current OT POC and recommend moderate intensity at discharge. Prognosis: Good Barriers to Discharge Home: Caregiver assistance, Physical needs Caregiver Assistance: Caregiver assistance needed per identified barriers - however, level of patient's required assistance exceeds assistance available at home Physical Needs: 24hr mobility assistance needed, 24hr ADL assistance needed, High falls risk due to function or environment Evaluation/Treatment Tolerance: Patient tolerated treatment well End of Session Communication: Bedside nurse End of Session Patient Position: Up in chair, Alarm on (call light in reach end of session) Prognosis: Good Evaluation/Treatment Tolerance: Patient tolerated treatment well Plan: Treatment Interventions: ADL retraining, Functional transfer training, UE strengthening/ROM, Endurance training, Patient/family training, Neuromuscular reeducation, Compensatory technique education OT Frequency: 3 times per week (during this acute inpatient hospitalization) OT Discharge Recommendations: Moderate intensity level of continued care (Based on current functional status and rehab potential, patient is anticipated to tolerate and benefit from 5 or more days per week of skilled rehabilitative therapy after discharge from this acute inpatient hospitalization.) Equipment Recommended upon Discharge: Wheeled walker OT Recommended Transfer Status: Assist of 2 OT - OK to Discharge: Yes (once medically stable) Treatment Interventions: ADL retraining, Functional transfer training, UE strengthening/ROM, Endurance training, Patient/family training, Neuromuscular reeducation, Compensatory technique education Subjective OT Visit Info: General Visit Info: General Reason for Referral: impaired mobility; patient admitted on 06/05 due to sepsis, R/O UTI, possible aspiration PNA. Patient treated from ETOH withdraw. 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 Patient with recent history of not taking her medications with increased ETOH consumption. Referred By: Dr Mcfarland Family/Caregiver Present: No Co-Treatment: PT Co-Treatment Reason: to maximize safety with mobility while addressing discipline-specific goals Prior to Session Communication: Bedside nurse Patient Position Received: Bed, 3 rail up, Alarm on General Comment: patient agreeable to session Precautions: Medical Precautions: Fall precautions (NPO, trach. humidity thru trach/RA) Date/Time Vitals Session Patient Position Pulse Resp SpO2 BP MAP (mmHg) 06/11/25 1300 -- -- 97 -- -- 106/74 85 06/11/25 1400 -- -- 93 -- -- 104/78 87 Vital Signs Comment: no concerns on ICU monitor Pain: Pain Assessment Pain Assessment: 0-10 0-10 (Numeric) Pain Score: (reports a little back pain) Objective Cognition: Cognition Overall Cognitive Status: Within Functional Limits Coordination: Movements are Fluid and Coordinated: Yes Bed Mobility/Transfers: Bed Mobility 1 Bed Mobility 1: Supine to sitting Level of Assistance 1: Minimum assistance, Moderate verbal cues Bed Mobility Comments 1: use of bed rail Functional Mobility: Functional Mobility Functional Mobility Performed: No (pt is too weak. flexed knees, hips, trunk in standing) Sitting Balance: Static Sitting Balance Static Sitting-Level of Assistance: Contact guard Outcome Measures:[facility] [place] Daily Activity Putting on and taking off regular lower body clothing: Total Bathing (including washing, rinsing, drying): A lot Putting on and taking off regular upper body clothing: A lot Toileting, which includes using toilet, bedpan or urinal: Total Taking care of personal grooming such as brushing teeth: A little Eating Meals: A little (anticipated. pt is NPO) Daily Activity - Total Score: 12 Education Documentation No documentation found. Education Comments No comments found. OP EDUCATION: Goals: Encounter Problems Encounter Problems (Active) ADLs Patient will perform UB and LB bathing with minimal assist level of assistance. (Not Progressing) Start: 06/09/25 Expected End: 06/23/25 Patient with complete lower body dressing with minimal assist level of assistance (Not Progressing) Start: 06/09/25 Expected End: 06/23/25 Patient will complete toileting including hygiene clothing management/hygiene with minimal assist level of assistance. (Not Progressing) Start: 06/09/25 Expected End: 06/23/25 pt olman tolerate 25 minutes of ADL activity with all vitals WNL (Progressing) Start: 06/09/25 Expected End: 06/23/25 BALANCE Pt will maintain dynamic standing balance during ADL task with contact guard assist level of assistance in order to demonstrate decreased risk of falling and improved postural control. (Not Progressing) Start: 06/09/25 Expected End: 06/23/25 Images from the original note were not included. Physical Therapy Physical Therapy Treatment Patient Name: Vj Myers Department: [facility] ICU Room: [address] [place] [address] Today's Date: 06/11/2025 Time Calculation Start Time: 845 Stop Time: 924 Time Calculation (min): 39 min Assessment/Plan Skilled PT intervention is indicated due to patient presents with deficits in bed mobility, transfers, gait, stair negotiation, strength, activity tolerance, and safety awareness. Patient globally weak and deconditioned. She is now requiring two-person assist for transfers/mobility and was only able to take a few steps from bed to chair due to significant weakness. Patient needs encouragement to challenge herself during seated there ex as she only demonstrates very small ranges of motion and can be self-limiting at times. Recommend continued physical therapy intervention at a moderate intensity following hospitalization to improve strength, balance, mobility and reduce fall risk. Continue transfers and progress to ambulation with FWW as able/appropriate PT Assessment PT Assessment Results: Decreased endurance, Impaired balance, Decreased mobility Rehab Prognosis: Fair Barriers to Discharge Home: Physical needs, Caregiver assistance Caregiver Assistance: Patient lives alone and/or does not have reliable caregiver assistance Physical Needs: Ambulating household distances limited by function/safety, Intermittent mobility assistance needed, Intermittent ADL assistance needed, High falls risk due to function or environment Evaluation/Treatment Tolerance: Patient limited by fatigue End of Session Communication: Bedside nurse (communication on white board) End of Session Patient Position: Up in chair, Alarm on (call light in reach end of session) PT Plan Inpatient/Swing Bed or Outpatient: Inpatient PT Plan Treatment/Interventions: Bed mobility, Transfer training, Gait training, Balance training, Endurance training, Strengthening, Therapeutic exercise, Therapeutic activity, Home exercise program PT Plan: Ongoing PT PT Frequency: 4 times per week (during this acute inpatient hospitalization) PT Discharge Recommendations: Moderate intensity level of continued care (Based on current functional status and rehab potential, patient is anticipated to tolerate and benefit from 5 or more days per week of skilled rehabilitative therapy after discharge from this acute inpatient hospitalization.) Equipment Recommended upon Discharge: Wheeled walker PT Recommended Transfer Status: Assist x2 PT - OK to Discharge: Yes (once medically appropriate and safe DC plan in place) PT Visit Info: PT Received On: 06/11/25 General Visit Information: General Reason for Referral: impaired mobility; patient admitted on 06/05 due to sepsis, R/O UTI, possible aspiration PNA. Patient treated from ETOH withdraw. 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 Patient with recent history of not taking her medications with increased ETOH consumption. Referred By: Dr Mcfarland Family/Caregiver Present: No Co-Treatment: OT Co-Treatment Reason: to maximize safety with mobility while addressing discipline-specific goals Prior to Session Communication: Bedside nurse Patient Position Received: Bed, 3 rail up, Alarm on General Comment: patient agreeable to session Subjective Precautions: Precautions Medical Precautions: Fall precautions (NPO. trach; humidifier thru trach) Date/Time Vitals Session Patient Position Pulse Resp SpO2 BP MAP (mmHg) 06/11/25 1200 -- -- 116 -- -- 126/87 100 06/11/25 1300 -- -- 97 -- -- 106/74 85 Objective Pain: Pain Assessment Pain Assessment: 0-10 0-10 (Numeric) Pain Score: (reports a little back pain) Cognition: Cognition Overall Cognitive Status: Within Functional Limits Safety/Judgement: Exceptions to WFL Insight: Mild Coordination: Postural Control: Postural Control Postural Control: Within Functional Limits Static Standing Balance Static Standing-Balance Support: Bilateral upper extremity supported (FWW) Static Standing-Level of Assistance: Moderate assistance, Maximum assistance (x2) Dynamic Standing Balance Dynamic Standing-Balance Support: Bilateral upper extremity supported (FWW) Dynamic Standing-Level of Assistance: Moderate assistance (x2) Dynamic Standing-Balance: Turning Activity Tolerance: Activity Tolerance Endurance: Decreased tolerance for upright activites Treatments: Therapeutic Exercise Therapeutic Exercise Performed: Yes Therapeutic Exercise Activity 1: seated heel-toe raises Therapeutic Exercise Activity 2: LAQ x10 ea with tactile cue/target Therapeutic Exercise Activity 3: seated marches 2x10 ea Therapeutic Exercise Activity 4: hip add marcia wiht pillow x10, 2sec hold Therapeutic Exercise Activity 5: manual resisted hip abd seated x10 Therapeutic Activity Therapeutic Activity Performed: Yes Therapeutic Activity 1: transfer and mobility training Bed Mobility Bed Mobility: Yes Bed Mobility 1 Bed Mobility 1: Supine to sitting Level of Assistance 1: Minimum assistance, Moderate verbal cues Bed Mobility Comments 1: towards R side of bed Ambulation/Gait Training Ambulation/Gait Training Performed: (ambulate bed to recliner only, refuses further ambulation, 2 mod assist and max verbal cues) Transfers Transfer: Yes Transfer 1 Technique 1: Sit to stand, Stand to sit Transfer Device 1: Gait belt (FWW) Transfer Level of Assistance 1: Moderate assistance, +2, Moderate verbal cues, Moderate tactile cues Trials/Comments 1: instruction and cue sfor hand placement/safety; tactile/verbal cues to stand more erect as she was standing with flexed posture and needing modAx2, once she engaged her trunk and hips more she needed less assist for standing Transfers 2 Technique 2: Stand pivot Transfer Device 2: Gait belt (FWW) Transfer Level of Assistance 2: Moderate assistance, Moderate verbal cues Outcome Measures: [facility] Basic Mobility Turning from your back to your side while in a flat bed without using bedrails: A lot Moving from lying on your back to sitting on the side of a flat bed without using bedrails: A lot Moving to and from bed to chair (including a wheelchair): Total (2 assist) Standing up from a chair using your arms (e.g. wheelchair or bedside chair): Total (2 assist) To walk in hospital room: Total Climbing 3-5 steps with railing: Total Basic Mobility - Total Score: 8 FSS-ICU Ambulation: Unable to attempt due to weakness Rolling: Moderate assistance (performs 50 - 74% of task) Sitting: Supervision or set-up only Transfer [id number]: Total assistance (performs 25% or requires another person) Transfer [id number]: Moderate assistance (performs 50 - 74% of task) Total Score: 12 Education Documentation Mobility Training, taught by Yumiko Bonilla PT at 06/11/2025 1:14 PM. Learner: Patient Readiness: Acceptance Method: Explanation, Demonstration Response: Verbalizes Understanding, Demonstrated Understanding, Needs Reinforcement Comment: safety with mobility and transfers Education Comments No comments found. OP EDUCATION: Encounter Problems Encounter Problems (Active) PT Problem Patient will perform bed mobility with supervision (Progressing) Start: 06/09/25 Expected End: 06/23/25 Patient will perform sit to stand and stand pivot transfers with supervision (Progressing) Start: 06/09/25 Expected End: 06/23/25 Patient will ambulate 100' with wheeled walker and SBA (Progressing) Start: 06/09/25 Expected End: 06/23/25 Vj Myers is a 55 y.o. female on day 5 of admission presenting with UTI (urinary tract infection). Subjective Examined at the bedside She is resting comfortably in bed Currently on 35% with her trach mask Vitals look very good No complaints or issues noted overnight Objective Vitals 24HR Heart Rate: [79-105] Temp: [36.1 C (97 F)] Resp: [6-21] BP: (76-147)/(52-126) Weight: [85 kg (187 lb 6.3 oz)] SpO2: [98 %-100 %] Intake/Output last 3 Shifts: Intake/Output Summary (Last 24 hours) at 06/11/2025 09 Last data filed at 06/11/2025 0400 Gross per 24 hour Intake -- Output 350 ml Net -350 ml Physical Exam Constitutional: Appearance: She is obese. She is ill-appearing. HENT: Head: Normocephalic and atraumatic. Right Ear: External ear normal. Left Ear: External ear normal. Nose: Nose normal. Mouth/Throat: Mouth: Mucous membranes are moist. Pharynx: Oropharynx is clear. Eyes: Extraocular Movements: Extraocular movements intact. Conjunctiva/sclera: Conjunctivae normal. Pupils: Pupils are equal, round, and reactive to light. Neck: Comments: Tracheostomy in place Right internal jugular central line Cardiovascular: Rate and Rhythm: Normal rate and regular rhythm. Pulmonary: Effort: Pulmonary effort is normal. Breath sounds: Normal breath sounds. Abdominal: General: Abdomen is flat. Palpations: Abdomen is soft. Skin: General: Skin is warm and dry. Neurological: General: No focal deficit present. Mental Status: She is alert and oriented to person, place, and time. Psychiatric: Mood and Affect: Mood normal. Behavior: Behavior normal. Relevant Results Assessment & Plan UTI (urinary tract infection) Sepsis, due to unspecified organism, unspecified whether acute organ dysfunction present (Multi) Anemia with hemoglobin dropped below 7 status post blood transfusion: Stable. 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 She understands that this requires that she will need to stop using alcohol and also would be beneficial to stop using nicotine. I have discussed with her my discussions with Dr. Thomas. With a plan to likely put in a esophageal stent she would need a feeding tube to get her nutritional status up she would need to be kept n.p.o. and then after she recovers gets her nutritional status up stays off of alcohol and functionally gets better then likely could do another surgical intervention to close this fistula surgically. She is on her baseline oxygen requirements. She is currently on 35% via a trach mask. She did not have a trach in place and is able to do okay without the trach and this likely is not going to be in place with the esophageal stent in place Due to all of these things we will initiate transfer [place] [facility] Plan is for surgical intervention in the next 24 to 48 hours once she has arrived in [place] Anne Gonzales DO Vj Myers is a 55 y.o. female on day 5 of admission presenting with UTI (urinary tract infection). Subjective Dysphagia Objective Physical Exam General Appearance: AAO x 3, ill-appearing Skin: skin color pink, warm, and dry; no suspicious rashes or lesions Eyes : PERRL, EOM's intact ENT: mucous membranes pink and moist, tracheostomy Neck: normocephalic, right IJ Respiratory: lungs clear to auscultation anteriorly; no wheezing, rhonchi, or crackles. Heart: regular rate and rhythm. Abdomen: Nondistended, positive bowel sounds x4, soft, nontender Extremities: no edema Peripheral pulses: normal x4 extremities Neuro: alert, coherent and conversant, no focal motor deficits Last Recorded Vitals Blood pressure 80/58, pulse 100, temperature 36.1 C (97 F), resp. rate 10, height 1.6 m (5' 3), weight 85 kg (187 lb 6.3 oz), SpO2 100%. Intake/Output last 3 Shifts: I/O last 3 completed shifts: In: - (0 mL/kg) Out: 350 (4.1 mL/kg) [Urine:350 (0.1 mL/kg/hr)] Weight: 85 kg Relevant Results Results for orders placed or performed during the hospital encounter of 06/05/25 (from the past 24 hours) CBC Result Value Ref Range WBC 4.5 4.4 - 11.3 x10*3/uL nRBC 0.0 0.0 - 0.0 /100 WBCs RBC 2.38 (L) 4.00 - 5.20 x10*6/uL Hemoglobin 7.6 (L) 12.0 - 16.0 g/dL Hematocrit 24.2 (L) 36.0 - 46.0 % MCV 102 (H) 80 - 100 fL MCH 31.9 26.0 - 34.0 pg MCHC 31.4 (L) 32.0 - 36.0 g/dL RDW 18.0 (H) 11.5 - 14.5 % Platelets 152 150 - 450 x10*3/uL Comprehensive Metabolic Panel Result Value Ref Range Glucose 79 74 - 99 mg/dL Sodium 141 136 - 145 mmol/L Potassium 4.2 3.5 - 5.3 mmol/L Chloride 106 98 - 107 mmol/L Bicarbonate 28 21 - 32 mmol/L Anion Gap 11 10 - 20 mmol/L Urea Nitrogen 11 6 - 23 mg/dL Creatinine 0.87 0.50 - 1.05 mg/dL eGFR 79 >60 mL/min/1.73m*2 Calcium 7.8 (L) 8.6 - 10.3 mg/dL Albumin 2.2 (L) 3.4 - 5.0 g/dL Alkaline Phosphatase 144 (H) 33 - 110 U/L Total Protein 4.6 (L) 6.4 - 8.2 g/dL AST 54 (H) 9 - 39 U/L Bilirubin, Total 0.6 0.0 - 1.2 mg/dL ALT 12 7 - 45 U/L Magnesium Result Value Ref Range Magnesium 1.63 1.60 - 2.40 mg/dL CT soft tissue neck w IV contrast Result Date: 06/11/2025 Interpreted By: Esdras Edgar, STUDY: CT SOFT TISSUE NECK W IV CONTRAST; 06/10/2025 6:21 pm INDICATION: Signs/Symptoms:Hx of Throate Cacner PreWork for Possible sugerical interventon. COMPARISON: CT neck from 01/10/2025. CT cervical spine from 06/05/2025. ACCESSION NUMBER(S): [id number] ORDERING CLINICIAN: ANNE GONZALES TECHNIQUE: Axial CT images of the neck were obtained. The patient received 70 ML of Omnipaque 350 intravenous contrast agent. The images were reformatted in angled axial, coronal and sagittal planes. FINDINGS: There are postoperative changes from total laryngectomy with creation of a neopharynx and flap reconstruction. No discrete masses are seen within the visualized aerodigestive tract. Mild stranding of fat located within the retropharyngeal space may be treatment related and reflective of edema. There is a tracheostomy tube extending through a soft tissue defect within the ventral neck and terminating within the tracheal lumen below the level of the clavicular heads and located 4.6 cm cranial to the nirmal. Prior CT cervical spine from 06/05/2025 demonstrated a tracheoesophageal fistula with a tube extending into the tracheostomy defect and then into the esophageal lumen. Due to presence of the tracheostomy tube and collapse of the esophageal lumen, a distinct tract is not appreciated on the current study but is likely located in the region of the trachea and esophagus visualized on series 2, image 83 of 128. There is no cervical lymphadenopathy by size criteria. No masses are seen within the parotid glands. Submandibular glands are not visualized. No discrete nodules are seen within the visualized thyroid gland. There is layering fluid within the sphenoid sinuses, otherwise the visualized paranasal sinuses and mastoid air cells are essentially clear. There are osseous degenerative changes of the cervical spine. Partially visualized right internal jugular venous line extending inferiorly into the superior vena cava. Findings within the chest will be detailed in a separate report. 1. Postoperative changes from total laryngectomy, creation of a neopharynx, and flap reconstruction. 2. Tracheostomy tube is in place. It is difficult to evaluate patient's known tracheoesophageal fistula as detailed above. 3. No new discrete masses are seen within the visualized aerodigestive tract and there is no cervical lymphadenopathy by size criteria. This study was interpreted at [facility]. MACRO: None Signed by: Esdras Edgar 06/11/2025 7:59 AM Dictation workstation: [id number] CT chest w IV contrast Result Date: 06/10/2025 Interpreted By: Janelle Foreman, STUDY: CT CHEST W IV CONTRAST; 06/10/2025 6:21 pm INDICATION: Signs/Symptoms: Esophageal fistula PreSurgery Workup. COMPARISON: CT chest 06/05/2025 ACCESSION NUMBER(S): [id number] ORDERING CLINICIAN: ANNE GONZALES TECHNIQUE: Helical data acquisition of the chest was obtained following intravenous administration of 70 ML Omnipaque 350. Images were reformatted in axial, coronal, and sagittal planes. FINDINGS: LUNGS AND AIRWAYS: Tracheostomy noted.Prior laryngectomy. Moderate bilateral pleural effusions with bilateral lower lobe compressive atelectasis noted. No pneumothorax. Central catheter terminates at the level of the right atrium. There is left upper lobe subpleural scarring axial image 202. MEDIASTINUM AND VICTOR M, LOWER NECK AND AXILLA: Thyroid gland is not visualized. Normal-sized mediastinal lymph nodes are seen. Thoracic esophagus unremarkable. HEART AND VESSELS: Thoracic aorta unremarkable. Main pulmonary artery and its branches are normal in caliber. No coronary artery calcifications are seen. Please note, the study is not optimized for evaluation of coronary arteries. The cardiac chambers are not enlarged. There is no pericardial effusion seen. UPPER ABDOMEN: There is diffuse decreased attenuation of the liver likely due to diffuse severe fatty infiltration. CHEST WALL AND OSSEOUS STRUCTURES: Chest wall is within normal limits. No acute osseous pathology.There are no suspicious osseous lesions. 1. Moderate bilateral pleural effusions with moderate bilateral lower lobe atelectasis. 2. Tracheostomy and laryngectomy. 3. Severe fatty infiltration of the liver. Signed by: Janelle Foreman 06/10/2025 11:56 PM Dictation workstation: [id number] Scheduled medications Scheduled Medications[1] Continuous medications Continuous Medications[2] PRN medications PRN Medications[3] This patient has a central line Reason for the central line remaining today? Hemodynamic monitoring Assessment & Plan UTI (urinary tract infection) Patient was initially started on IV vancomycin and Zosyn. Discontinued vancomycin at this time. unsure if the patient truly had a urinary tract infection. Blood cultures are negative. Urine culture is contaminated. Patient's infection may have been more related to aspiration pneumonia. UTI ruled out Sepsis, due to unspecified organism, unspecified whether acute organ dysfunction present (Multi) aspiration and developed pneumonia. Continue IV Zosyn. Been on fluids with dextrose lactated Ringer's at 75 mL/h. Continue IV antibiotics. Follow cultures.Bronchial wash was obtained on June 07. 3) septic shock, aspiration pneumonia likely Blood pressure labile S/p fluid resuscitation S/p Levophed drip and to keep map above 65 Follow cultures Supplemental oxygen, tracheostomy 4) anemia Follow CBC daily Hemoglobin dropped, transfuse 1 unit of blood on 06/09 Hold any blood thinners at this time 5) hypokalemia, was replaced 6) hypophosphatemia, was replaced with IV Phos 7) history of throat cancer and laryngectomy, tracheoesophageal fistula, dysphagia Tracheal stoma and chronic hypoxemic respiratory failure, FiO2 35% with trach mask actually, did not have trach in place Supportive care ENFORCEMENT MANAGER following To follow ENT, cardiothoracic surgery regarding fistula reversal options plan for tracheal stent with a feeding tube placement and once nutrition status better can proceed with surgical intervention flap to close fistula. Optimize nutrition status and abstain from alcohol as well smoking CT neck and chest showing postoperative changes from total laryngectomy, creation of neopharynx and flap reconstruction Tracheostomy tube. No new masses realized and arrow digestive tract and no cervical lymphadenopathy 8) hypomagnesemia, was replaced 9) lactic acidosis, secondary to septic shock improved with fluids Refractory with hypotension S/p IV fluids and trend labs 10) history of alcohol abuse, smoking [facility] protocol -better Multivitamin, thiamine folic acid Off Precedex drip wean off Counseling education Address noncompliance 13) elevated liver enzymes Alcohol abuse CT of the abdomen showed fatty liver disease Hep panel was ordered, to follow gastroenterology 14) aspiration pneumonia on IV Zosyn #15 hypertension, held antihypertensives due to hypotension To follow vitals 11) hyperlipidemia, statins Watch liver enzymes #12 history of multiple sclerosis, to follow neurology outpatient Supportive care Symptomatic management Muscle relaxants if required #13 hypoalbuminemia, protein calorie malnutrition nutrition DVT prophylaxis, SCDs Disposition, plan for transfer [place] tertiary [place] [facility] [place] further management as mentioned Lucretia Mcfarland MD [1] [Held by provider] amLODIPine, 5 mg, oral, Daily [Held by provider] carvedilol, 6.25 mg, oral, BID [Held by provider] folic acid, 1 mg, oral, Daily folic acid, 1 mg, intravenous, q24h [Held by provider] furosemide, 20 mg, oral, Daily ipratropium-albuteroL, 3 mL, nebulization, 4x daily [Held by provider] levothyroxine, 137 mcg, oral, Daily [Held by provider] liothyronine, 5 mcg, oral, Daily [Held by provider] LORazepam, 0.5 mg, oral, BID [Held by provider] magnesium oxide, 400 mg of magnesium oxide, oral, BID [Held by provider] midodrine, 10 mg, oral, TID [Held by provider] multivitamin with minerals, 1 tablet, oral, Daily nystatin, 1 Application, Topical, BID pantoprazole, 40 mg, intravenous, BID piperacillin-tazobactam, 4.5 g, intravenous, q6h [Held by provider] pregabalin, 100 mg, oral, TID [Held by provider] sertraline, 50 mg, oral, Daily [Held by provider] thiamine, 100 mg, oral, Daily [2] [3] PRN medications: acetaminophen, alteplase, diazePAM, ketorolac, methocarbamol, oxygen Pt reviewed during Care Rounds today and she is not medically ready for discharge. Pt is need of a PEG tube as she has a tracheal fistula and may require transfer [place] [facility]. Referrals were made to local SNF's yesterday- [facility] and [facility] are considering. Both [facility] and [facility] ([facility]) have declined. Several attempts made to update pt without success (sleeping, occupied with nursing, etc). Care Transitions will continue to follow. [facility] [employer] Therapy Note Vj Myers was referred by Dario Casas RN Therapy Session Referral Type: New referral this admission Visit Type: Follow-up visit Session Start Time: 1257 Intervention Delivery: In-person Conflict of Service: Asleep Narrative Follow-up: MT will reattempt as able. Education Documentation No documentation found. Vj Myers is a 55 y.o. female on day 4 of admission presenting with UTI (urinary tract infection). Subjective Patient seen and examined at the bedside She is resting comfortably in bed No major complaints currently Objective Vitals 24HR Heart Rate: [69-113] Temp: [36 C (96.8 F)-36.4 C (97.5 F)] Resp: [10-21] BP: (78-143)/(55-102) Weight: [82.9 kg (182 lb 12.2 oz)-86.6 kg (190 lb 14.7 oz)] SpO2: [99 %-100 %] Intake/Output last 3 Shifts: Intake/Output Summary (Last 24 hours) at 06/10/2025 1153 Last data filed at 06/09/2025 1834 Gross per 24 hour Intake 867.36 ml Output 100 ml Net 767.36 ml Physical Exam Constitutional: Appearance: She is obese. She is ill-appearing. HENT: Head: Normocephalic and atraumatic. Right Ear: External ear normal. Left Ear: External ear normal. Nose: Nose normal. Mouth/Throat: Mouth: Mucous membranes are moist. Pharynx: Oropharynx is clear. Eyes: Extraocular Movements: Extraocular movements intact. Conjunctiva/sclera: Conjunctivae normal. Pupils: Pupils are equal, round, and reactive to light. Neck: Comments: Tracheostomy in place Right internal jugular central line Cardiovascular: Rate and Rhythm: Normal rate and regular rhythm. Pulmonary: Effort: Pulmonary effort is normal. Breath sounds: Normal breath sounds. Abdominal: General: Abdomen is flat. Palpations: Abdomen is soft. Skin: General: Skin is warm and dry. Neurological: General: No focal deficit present. Mental Status: She is alert and oriented to person, place, and time. Psychiatric: Mood and Affect: Mood normal. Behavior: Behavior normal. Relevant Results Assessment & Plan UTI (urinary tract infection) Sepsis, due to unspecified organism, unspecified whether acute organ dysfunction present (Multi) Anemia with hemoglobin dropped below 7 status post blood transfusion Alcohol abuse Protein calorie malnutrition with hypoalbuminemia Nicotine abuse History 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 Chronic hypoxemic respiratory failure Multiple sclerosis Plan: I discussed in detail with Dr. Thomas. From the surgical standpoint the options could be that she could get a tracheal stent with a feeding tube placement and once her nutritional status has been built up she possibly could have surgical intervention with a flap to close the fistula This would require a feeding tube to increase her nutritional status complete alcohol abstinence not eating anything by mouth for a little bit of time to be able to allow these things to work he would require the tracheostomy to not be in place but at this point I think if aspiration was mitigated as much as possible she should be able to be okay without the tracheostomy Also requested was a CT scan of the neck and chest to rule out any other issues that may be going on before surgical intervention is a possibility I discussed these with her at the bedside in detail. She has stated that she wants to pursue these things she wants to get better she does state that she will stop drinking alcohol She does have a contrast allergy I have discussed with radiology and she will be premedicated and then we will proceed with CT scan of the neck and chest Once we have this information I will reach back out to Dr. Thomas for possible transfer to [place] tomorrow. I spent 45 minutes of critical care time directly involved in patient care excluding any billable procedures Anne Gonzales DO Vj Myers is a 55 y.o. female on day 4 of admission presenting with UTI (urinary tract infection). Subjective Dysphagia with aspiration Objective Physical Exam General Appearance: AAO x 3, ill-appearing Skin: skin color pink, warm, and dry; no suspicious rashes or lesions Eyes : PERRL, EOM's intact ENT: mucous membranes pink and moist, tracheostomy Neck: normocephalic, right IJ Respiratory: lungs clear to auscultation anteriorly; no wheezing, rhonchi, or crackles. Heart: regular rate and rhythm. Abdomen: Nondistended, positive bowel sounds x4, soft, nontender Extremities: no edema Peripheral pulses: normal x4 extremities Neuro: alert, coherent and conversant, no focal motor deficits Last Recorded Vitals Blood pressure 107/87, pulse 92, temperature 36.2 C (97.2 F), resp. rate 15, height 1.6 m (5' 3), weight 86.6 kg (190 lb 14.7 oz), SpO2 99%. Intake/Output last 3 Shifts: I/O last 3 completed shifts: In: 2684.9 (31 mL/kg) [I.V.:1129.5 (13 mL/kg); Blood:400; IV Piggyback:1155.4] Out: 500 (5.8 mL/kg) [Urine:500 (0.2 mL/kg/hr)] Weight: 86.6 kg Relevant Results Results for orders placed or performed during the hospital encounter of 06/05/25 (from the past 24 hours) CBC Result Value Ref Range WBC 5.2 4.4 - 11.3 x10*3/uL nRBC 0.0 0.0 - 0.0 /100 WBCs RBC 2.36 (L) 4.00 - 5.20 x10*6/uL Hemoglobin 7.5 (L) 12.0 - 16.0 g/dL Hematocrit 23.7 (L) 36.0 - 46.0 % MCV 100 80 - 100 fL MCH 31.8 26.0 - 34.0 pg MCHC 31.6 (L) 32.0 - 36.0 g/dL RDW 17.3 (H) 11.5 - 14.5 % Platelets 131 (L) 150 - 450 x10*3/uL CBC Result Value Ref Range WBC 4.6 4.4 - 11.3 x10*3/uL nRBC 0.0 0.0 - 0.0 /100 WBCs RBC 2.45 (L) 4.00 - 5.20 x10*6/uL Hemoglobin 7.8 (L) 12.0 - 16.0 g/dL Hematocrit 24.7 (L) 36.0 - 46.0 % MCV 101 (H) 80 - 100 fL MCH 31.8 26.0 - 34.0 pg MCHC 31.6 (L) 32.0 - 36.0 g/dL RDW 17.5 (H) 11.5 - 14.5 % Platelets 140 (L) 150 - 450 x10*3/uL Comprehensive Metabolic Panel Result Value Ref Range Glucose 83 74 - 99 mg/dL Sodium 142 136 - 145 mmol/L Potassium 3.8 3.5 - 5.3 mmol/L Chloride 107 98 - 107 mmol/L Bicarbonate 29 21 - 32 mmol/L Anion Gap 10 10 - 20 mmol/L Urea Nitrogen 10 6 - 23 mg/dL Creatinine 0.85 0.50 - 1.05 mg/dL eGFR 81 >60 mL/min/1.73m*2 Calcium 7.7 (L) 8.6 - 10.3 mg/dL Albumin 2.1 (L) 3.4 - 5.0 g/dL Alkaline Phosphatase 152 (H) 33 - 110 U/L Total Protein 4.6 (L) 6.4 - 8.2 g/dL AST 70 (H) 9 - 39 U/L Bilirubin, Total 0.7 0.0 - 1.2 mg/dL ALT 13 7 - 45 U/L Magnesium Result Value Ref Range Magnesium 1.61 1.60 - 2.40 mg/dL [place] modified barium swallow study Result Date: 06/09/2025 Interpreted By: Yann Matthews and Kuhn Zoe STUDY: [place] MODIFIED BARIUM SWALLOW STUDY;; 06/09/2025 10:22 am INDICATION: Signs/Symptoms:aspiration, history of Tracheoesophageal fistula. COMPARISON: None. ACCESSION NUMBER(S): [id number] ORDERING CLINICIAN: TALIB MAZA TECHNIQUE: MBSS completed. Informed verbal consent obtained prior to completion of exam. Trials of thin, nectar thick, and honey thick given. ENFORCEMENT MANAGER: Yolis Shah MS [facility])-ENFORCEMENT MANAGER Phone/Pager: Veeip SPEECH FINDINGS: Speech-Language Pathology Adult Inpatient Modified Barium Swallow Study Patient Name: Vj Myers : 1970 Today's Date: 06/09/25 Time Calculation Start Time: 0840 Stop Time: 1035 Total Time (min): 115 minutes Time included oral motor exam at bedside, case history, patient/family education, transportation, and the MBSS study Modified Barium Swallow Study completed. Informed verbal consent obtained prior to completion of exam. The study was completed per protocol with various liquid barium consistencies. A 1.9 cm or .75 inch (outer diameter) ring was placed on the chin in the lateral view and on the lateral during swallowing. The anatomic structures and function of the oropharynx, larynx, hypopharynx and cervical esophagus were evaluated. ENFORCEMENT MANAGER: Yolis Shah, ENFORCEMENT MANAGER Contact info: [employer] Reason for Referral: rule out aspiration; rule out cervical esophageal dysfunction Patient Hx: PMHX: depression, GERD, mastoiditis of R side, tracheostomy, malignant neoplasm of larynx with laryngectomy, stage 2 CKD, COPD, alcoholism. On 06/07/25 during the current admission Vj Myers had a tracheotomy. Pertinent information from Dr. Gonzales's procedure note includes: she had a tube sitting in her stoma. This was removed and a stylette was placed. I used the Rhino dilator to dilate the area. The tracheostomy was then placed over the wire. The first time the tube actually went into the esophagus through the fistula. This was removed and replaced as gently as possible superficially as possible at this time we are able to cannulate the tracheal. It was secured in place. Not other complications noted. On 05/1925 Vj Myers received a bronchoscopy to confirm trachea placement. Pertinent information from Dr. Gonzales's procedure note includes: The bronchoscope was advanced through the tracheostomy tube and into the trachea. There is obvious aspirated food present. There is eggs obviously seen. There is a lot of secretions. There was secretions with thick sputum in both the right and the left side there was also a aspirated from both the right and the left side By the end of the procedure we were able to clear all of the food that was seen. Vj Myers was made NPO on 06/07/25 d/t emesis and food/liquid in trach. She was then put on the trach vent. On 06/08/25 the trach vent was removed and she was breathing room air with humidification. Vj reported that she doesn't feel like it is harder to breathe when she eats. Her appetite has been good and she typically takes small bites and eats at a medium rate. She has upper and lower dentures but does not wear them when she eats. She reported difficulty masticating meats and she prefers softer foods. She takes medication whole with water. Respiratory Status: Supplemental oxygen via trach RT was present for the MBSS monitoring vitals and providing suction. Vj Myers's cuff was deflated. A Passy Colver Valve was attempted prior to the MBSS, but patient reported that she could not breathe with it on. Current diet: NPO Pain: Pain Scale: 0-10 Ratin Pain medication was administered by bedside nurse Fall Risk: Yes Based on the results of the MBSS, the following diet is recommended with the implementation of the specified safe swallow strategies: DIET RECOMMENDATION Solids: NPO Liquids: NPO If patient and/or family learn how to suction the trach effectively patient can be upgraded to the Free Water Protocol after oral care and with suction present Plan: Treatment/Interventions: Patient/caregiver education ENFORCEMENT MANAGER Plan: Skilled ENFORCEMENT MANAGER warranted ENFORCEMENT MANAGER Frequency: 1x per week Duration: 2 weeks Discussed POC: Patient Discussed Risks/Benefits: Yes Patient/Caregiver Agreeable: Yes Dysphagia Goal(s): Short Term Goal(s): In 2 weeks... Vj will demonstrate understanding of NPO diet recommendation and the importance of oral care with 80% accuracy. STATUS: Goal established PROGRESS: TBD Goal Start: 06/09/25 Anticipated End: 06/23/25 Goal End: Vj will perform own oral care with minimal cues with 80% accuracy. STATUS: Goal established PROGRESS: TBD Goal Start: 06/09/25 Anticipated End: 06/23/25 Goal End: Patient's Goal for Therapy: to eat and drink Education Provided: Results and recommendations per MBSS. Verbal understanding and agreement given. Additional Medical Consults Suggested: - ENT Repeat study/ dc plan: Determined by physician or treating speech-language pathologist if appropriate. Mechanics of the Swallow Summary: ORAL PHASE: Lip Closure - No labial escape/anterior loss of bolus Tongue Control During Bolus Hold - Cohesive bolus between tongue to palatal seal Bolus prep/mastication - Timely and efficient mastication skills Bolus transport/lingual motion - Brisk tongue motion for A-P movement of the bolus Oral residue - Complete oral clearance PHARYNGEAL PHASE: Initiation of pharyngeal swallow - Bolus head at posterior angle of ramus Soft palate elevation - No bolus between soft palate/pharyngeal wall Laryngeal elevation - N/A Anterior hyoid excursion - N/A Epiglottic movement - N/A Laryngeal vestibule closure - N/A Pharyngeal stripping wave - Present, however, diminished Pharyngeal contraction (A/P view) - Not tested Pharyngoesophageal segment opening - Partial distension/partial duration with partial obstruction of flow of bolus Tongue base retraction - Wide column of contrast or air between tongue base and pharyngeal wall Tongue base retraction present, but does not meet pharyngeal wall. Pharyngeal residue - Collection of residue within or on the pharyngeal structures Vj Myers had a laryngectomy and has a tracheostomy in place. During the MBSS the tracheostomy cuff was deflated. ESOPHAGEAL PHASE: Esophageal clearance - retrograde flow through the upper esophageal sphincter to the nasal cavity. 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 This resulted in barium in the tracheostomy which required suction. ENFORCEMENT MANAGER Impressions with Severity Rating: Pt presents with aspiration due to physiology upon completion of modified barium swallow study this date. Swallowing physiology is detailed above. Impairments most impacting swallowing safety and efficiency include aspiration through the tracheoesophageal fistula. Patient demonstrated thin liquid, nectar thick liquid, and honey thick liquid residue in the tracheostomy post trials which required suction. Patient demonstrated mild oral and pharyngeal residue that was reduced with multiple swallows. *Of note: The A-P bolus follow-through is not intended to be utilized as a diagnostic assessment of the esophagus, rather a tool to observe the biomechanic aspects of the swallow continuum and to inform the need for further evaluation by medical specialists, as applicable. Strategies attempted: -Effortful swallow OUTCOME MEASURES: Functional Oral Intake Scale Functional Oral Intake Scale: Level 1 nothing by mouth Eating Assessment Tool (EAT-10) 0 = No problem, 1 = Mild problem, 2 = Mild to moderate problem, 3 = Moderate problem, 4 = Severe problem EAT 10 My swallowing problem has caused me to lose weight.: 0 My swallowing problem interferes with my ability to go out for meals.: 3 Swallowing liquids takes extra effort.: 0 Swallowing solids takes extra effort.: 2 Swallowing pills takes extra effort.: 1 Swallowing is painful: 0 The pleasure of eating is affected by my swallowing.: 3 When I swallow food sticks in my throat.: 2 I cough when I eat.: 3 Swallowing is stressful: 0 EAT-10 TOTAL SCORE:: 14 A total score of 3 or above may indicate difficulty with swallowing safely and/or efficiently Rosenbek's Penetration Aspiration Scale Thin Liquids: aspiration through the tracheoesophageal fistula [place] Thick Liquids: aspiration through the tracheoesophageal fistula Honey Thick Liquids: aspiration through the tracheoesophageal fistula Puree: Did Not Test Soft Solids: Did Not Test Solids: Did Not Test Speech Therapy section of this report signed by Yolis Shah MS CCC-ENFORCEMENT MANAGER on 06/09/2025 at 11:18 am. RADIOLOGY FINDINGS: Thin and thick barium were utilized this examination performed in the sitting lateral position. There is a small amount of intermittent visualization of contrast, in the mid trachea just below the level of the tracheostomy tube consistent with tracheoesophageal fistula. However the exact site of the fistula could not be determined. Suction of the tracheostomy tube was performed by the respiratory therapy technologist. Radiology section of this report signed by Yann Hilario M.D. Tracheoesophageal fistula without exact localization of the site of fistulization. Oral contrast is intermittently seen slightly below the level of the tracheostomy tube and coming out of the tracheostomy tube. Please see detailed swallowing physiology above. MACRO: None Signed by: Yann Matthews 06/09/2025 1:19 PM Dictation workstation: [id number] Scheduled medications Scheduled Medications[1] Continuous medications Continuous Medications[2] PRN medications PRN Medications[3] Assessment & Plan UTI (urinary tract infection) Patient was initially started on IV vancomycin and Zosyn. Discontinued vancomycin at this time. unsure if the patient truly had a urinary tract infection. Blood cultures are negative. Urine culture is contaminated. Patient's infection may have been more related to aspiration pneumonia. UTI ruled out Sepsis, due to unspecified organism, unspecified whether acute organ dysfunction present (Multi) aspiration and developed pneumonia. Continue IV Zosyn. Been on fluids with dextrose lactated Ringer's at 75 mL/h. Continue IV antibiotics. Follow cultures.Bronchial wash was obtained on June 07. 3) septic shock, aspiration pneumonia likely Blood pressure labile S/p fluid resuscitation S/p Levophed drip and to keep map above 65 Follow cultures Supplemental oxygen, tracheostomy 4) anemia Follow CBC daily Hemoglobin dropped, transfuse 1 unit of blood on 06/09 Hold any blood thinners at this time 5) hypokalemia, was replaced 6) hypophosphatemia, replaced with IV Phos 7) history of throat cancer and laryngectomy, tracheoesophageal fistula, dysphagia Tracheal stoma and chronic hypoxemic respiratory failure Supportive care Tracheostomy in place new tube placed on June 07. 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 ENFORCEMENT MANAGER following gastroenterology consultation to evaluate for peg tube-awaiting ENT recommendations before deciding further regarding PEG tube placement MBS with aspiration To follow ENT, cardiothoracic surgery regarding fistula reversal options if possible-can consider tracheal stent with a feeding tube placement and once nutrition status better can proceed with surgical intervention flap to close fistula. Optimize nutrition status and abstain from alcohol. Possible tracheostomy closure Will check CT neck and chest to evaluate any other issues 8) hypomagnesemia, was replaced 9) lactic acidosis, secondary to septic shock improved with fluids Refractory with hypotension Continue IV fluids and trend labs 10) history of alcohol abuse, smoking [facility] protocol Multivitamin, thiamine folic acid Off Precedex drip wean off Counseling education Address noncompliance 13) elevated liver enzymes Alcohol abuse CT of the abdomen showed fatty liver disease Hep panel 14) aspiration pneumonia on IV Zosyn #15 hypertension, held antihypertensives due to hypotension To follow vitals 11) hyperlipidemia, statins Watch liver enzymes #12 history of multiple sclerosis, to follow neurology outpatient Supportive care Symptomatic management Muscle relaxants if required #13 hypoalbuminemia, protein calorie malnutrition nutrition DVT prophylaxis, SCDs Disposition, at least 48 hours to determine further course of action Lucretia Mcfarland MD [1] [Held by provider] amLODIPine, 5 mg, oral, Daily [Held by provider] carvedilol, 6.25 mg, oral, BID diphenhydrAMINE, 50 mg, intravenous, Once [Held by provider] folic acid, 1 mg, oral, Daily folic acid, 1 mg, intravenous, q24h [Held by provider] furosemide, 20 mg, oral, Daily ipratropium-albuteroL, 3 mL, nebulization, 4x daily [Held by provider] levothyroxine, 137 mcg, oral, Daily [Held by provider] liothyronine, 5 mcg, oral, Daily [Held by provider] LORazepam, 0.5 mg, oral, BID [Held by provider] magnesium oxide, 400 mg of magnesium oxide, oral, BID [Held by provider] midodrine, 10 mg, oral, TID [Held by provider] multivitamin with minerals, 1 tablet, oral, Daily pantoprazole, 40 mg, intravenous, BID piperacillin-tazobactam, 4.5 g, intravenous, q6h [Held by provider] pregabalin, 100 mg, oral, TID [Held by provider] sertraline, 50 mg, oral, Daily [Held by provider] thiamine, 100 mg, oral, Daily [2] [3] PRN medications: acetaminophen, alteplase, diazePAM, ketorolac, methocarbamol, oxygen Pt reviewed during Care Rounds today and she is not medically ready for discharge; ADOD will not be for several days as pt is being worked up for a PEG tube. SW met with pt and significant other/Pal to review the discharge plan. Permission granted to speak in front of Pal and both parties were educated to the SW roles in the discharge planning process. Pt is able to mouth words or write her needs via white board. She is requesting a referral be made to [facility]. Discussed making additional referrals as [facility] may not have a bed; pt agreeable. IM reviewed without questions/concerns. Pt tearful throughout SW visit re: childhood trauma, recent deaths, health complications- support and validation provided. Referrals attached in CarePort; awaiting replies. Care Transitions will continue to follow. [facility] [employer] Therapy Note Vj Myers was referred by Dario Casas RN Therapy Session Referral Type: New referral this admission Visit Type: Follow-up visit Session Start Time: 1355 Intervention Delivery: In-person Conflict of Service: Asleep Narrative Follow-up: MT will reattempt as able. Education Documentation No documentation found. Occupational Therapy Evaluation Patient Name: Vj Myers Today's Date: 06/09/2025 Time Calculation Start Time: 930 Stop Time: 942 Time Calculation (min): 12 min 332/332-A Assessment IP OT Assessment OT Assessment: Called to pt's room to assist with transfer into MBS chair. pt needing increased assistance for all aspects of ADL and mobility compared to baseline and would benefit from OT service at moderate intensity at discharge. Prognosis: Good Barriers to Discharge Home: Caregiver assistance, Physical needs Caregiver Assistance: Caregiver assistance needed per identified barriers - however, level of patient's required assistance exceeds assistance available at home Physical Needs: 24hr mobility assistance needed, 24hr ADL assistance needed, High falls risk due to function or environment Evaluation/Treatment Tolerance: Patient tolerated treatment well Medical Staff Made Aware: Yes End of Session Communication: Bedside nurse End of Session Patient Position: Alarm off, caregiver present (up in MBS chair with ENFORCEMENT MANAGER and RT- headed to radiology) Plan: Treatment Interventions: ADL retraining, Functional transfer training, UE strengthening/ROM, Endurance training, Patient/family training, Neuromuscular reeducation, Compensatory technique education OT Frequency: 3 times per week (during this acute inpatient hospitalization) OT Discharge Recommendations: Moderate intensity level of continued care (Based on current functional status and rehab potential, patient is anticipated to tolerate and benefit from 5 or more days per week of skilled rehabilitative therapy after discharge from this acute inpatient hospitalization.) Equipment Recommended upon Discharge: Wheeled walker OT Recommended Transfer Status: Assist of 1 OT - OK to Discharge: Yes (once medically stable) Subjective Current Problem: 1. Sepsis, due to unspecified organism, unspecified whether acute organ dysfunction present (Multi) 2. Hypokalemia 3. Lactic acidosis General: General Reason for Referral: referred to OT due to decline in functional mobility Referred By: Dr Mcfarland Past Medical History Relevant to Rehab: throat cancer, anemia, hypokalemia, trach, ETOH abuse, smoker, HLD, depression Family/Caregiver Present: No Co-Treatment: PT Co-Treatment Reason: facilitate safe mobilityq Prior to Session Communication: Bedside nurse, Physician Patient Position Received: Alarm off, caregiver present (sitting on edge of bed with nurse, respiratory and speech therapy present) General Comment: patient admitted on 06/05 due to sepsis, R/O UTI, possible aspiration PNA. Patient treated from ETOH withdraw. 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 Patient with recent history of not taking her medications with increased ETOH consumption. Precautions: Medical Precautions: Oxygen therapy device and L/min, Fall precautions (NPO. trach. 6 lpm thru trach) Precautions Comment: NPO. pt failed swallow eval/MBS Vital Signs: Vital Signs Comment: no concerns. RT and nurse present Pain: Pain Assessment Pain Assessment: (patient requested pain medication, no pain number given) Objective Cognition: Overall Cognitive Status: (pt unable to verbalize due to unable to tolerate speaking valve at this time.) Orientation Level: Oriented X4 Home Living: Home Living Comments: patient lives with 3 family members in a one story home with 1 step to enter. Does not have any assistive device. has a tub shower, no seat or grab bars. Prior Function: Prior Function Comments: patient reports she is indep with ADLs and IADLs. Does not drive but does occasionally go to the store with family ADL: Eating Assistance: Other (Comment) (pt is currently NPO, awaiting [facility] [place]) Grooming Assistance: Moderate Bathing Assistance: Maximal UE Dressing Assistance: Moderate LE Dressing Assistance: Maximal Toileting Assistance with Device: Maximal Activity Tolerance: Endurance: Decreased tolerance for upright activites Bed Mobility/Transfers: Bed Mobility Bed Mobility: No Transfers Transfer: Yes Transfer 1 Technique 1: Sit to stand, Stand to sit Transfer Device 1: Gait belt, Walker Transfer Level of Assistance 1: Minimum assistance Transfers 2 Transfer From 2: Bed to Transfer to 2: ([facility] [place] chair) Technique 2: Stand pivot Transfer Device 2: Walker, Gait belt Transfer Level of Assistance 2: Minimum assistance Trials/Comments 2: due to chair height pt needs max A x 2 to scoot back into chair Ambulation/Gait Training: Functional Mobility Functional Mobility Performed: No Sitting Balance: Static Sitting Balance Static Sitting-Level of Assistance: Close supervision Vision: Vision - Basic Assessment Current Vision: No visual deficits Sensation: Light Touch: No apparent deficits Coordination: Movements are Fluid and Coordinated: Yes Outcome Measures: [facility] Daily Activity Putting on and taking off regular lower body clothing: A lot Bathing (including washing, rinsing, drying): A lot Putting on and taking off regular upper body clothing: A lot Toileting, which includes using toilet, bedpan or urinal: A lot Taking care of personal grooming such as brushing teeth: A little Eating Meals: A little (pt is NPO) Daily Activity - Total Score: 14 EDUCATION: Education Documentation Body Mechanics, taught by Doris Page OT at 06/09/2025 11:55 AM. Learner: Patient Readiness: Acceptance Method: Explanation, Demonstration Response: Demonstrated Understanding, Needs Reinforcement Comment: safety with transfers Precautions, taught by Doris Page OT at 06/09/2025 11:55 AM. Learner: Patient Readiness: Acceptance Method: Explanation, Demonstration Response: Demonstrated Understanding, Needs Reinforcement Comment: safety with transfers ADL Training, taught by Doris Page OT at 06/09/2025 11:55 AM. Learner: Patient Readiness: Acceptance Method: Explanation, Demonstration Response: Demonstrated Understanding, Needs Reinforcement Comment: safety with transfers How to care for a port, taught by Doris Page OT at 06/09/2025 11:55 AM. Learner: Patient Readiness: Acceptance Method: Explanation, Demonstration Response: Demonstrated Understanding, Needs Reinforcement Comment: safety with transfers Education Comments No comments found. Goals: Encounter Problems Encounter Problems (Active) ADLs Patient will perform UB and LB bathing with minimal assist level of assistance. (Progressing) Start: 06/09/25 Expected End: 06/23/25 Patient with complete lower body dressing with minimal assist level of assistance (Progressing) Start: 06/09/25 Expected End: 06/23/25 Patient will complete toileting including hygiene clothing management/hygiene with minimal assist level of assistance. (Progressing) Start: 06/09/25 Expected End: 06/23/25 pt olman tolerate 25 minutes of ADL activity with all vitals WNL (Progressing) Start: 06/09/25 Expected End: 06/23/25 BALANCE Pt will maintain dynamic standing balance during ADL task with contact guard assist level of assistance in order to demonstrate decreased risk of falling and improved postural control. (Progressing) Start: 06/09/25 Expected End: 06/23/25 Physical Therapy Physical Therapy Physical Therapy Evaluation Patient Name: Vj Myers Today's Date: 06/09/2025 Time Calculation Start Time: 929 Stop Time: 941 Time Calculation (min): 12 min 332/332-A Assessment/Plan PT Assessment PT Assessment Results: Decreased endurance, Impaired balance, Decreased mobility Rehab Prognosis: Fair Barriers to Discharge Home: Physical needs Physical Needs: Ambulating household distances limited by function/safety, Intermittent mobility assistance needed, Intermittent ADL assistance needed Evaluation/Treatment Tolerance: Patient limited by fatigue Strengths: Ability to acquire knowledge Barriers to Participation: Comorbidities End of Session Communication: Bedside nurse Assessment Comment: patient presents with decreased functional mobility due to aspiration PNA. Patient would benefit from continued PT to address functional deficits and facilitate indep. Patient was indep at home prior to admission and now requires the use of walker and assist for functional mobility End of Session Patient Position: Bed, 3 rail up (RN present) IP OR SWING BED PT PLAN Inpatient or Swing Bed: Inpatient PT Plan Treatment/Interventions: Bed mobility, Transfer training, Gait training, Balance training, Therapeutic exercise, Therapeutic activity PT Plan: Ongoing PT PT Frequency: 3 times per week (during this acute hospital stay) PT Discharge Recommendations: Moderate intensity level of continued care. Based on current functional status and rehab potential, patient is anticipated to tolerate and benefit from 5 or more days per week of skilled rehabilitative therapy after discharge from this acute inpatient hospitalization. PT Recommended Transfer Status: Assist x2 (+1 for balance, +1 for equipment) PT - OK to Discharge: Yes (when medically appropriate) Subjective Current Problem: 1. Sepsis, due to unspecified organism, unspecified whether acute organ dysfunction present (Multi) 2. Hypokalemia 3. Lactic acidosis Problem List[1] General Visit Information: General Reason for Referral: referred to PT due to decline in functional mobility Referred By: Dr Mcfarland Past Medical History Relevant to Rehab: throat cancer, anemia, hypokalemia, trach, ETOH abuse, smoker, HLD, depression Family/Caregiver Present: No Co-Treatment: OT Co-Treatment Reason: facilitate safe mobilityq Prior to Session Communication: Bedside nurse, Physician Patient Position Received: (sitting on edge of bed with nurse, respiratory and speech therapy present) General Comment: patient admitted on 06/05 due to sepsis, R/O UTI, possible aspiration PNA. Patient treated from ETOH withdraw. 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 Patient with recent history of not taking her medications with increased ETOH consumption. Home Living: Home Living Home Living Comments: patient lives with 3 family members in a one story home with 1 step to enter. Does not have any assistive device. has a tub shower, no seat or grab bars. Prior Level of Function: Prior Function Per Pt/Caregiver Report Prior Function Comments: patient reports she is indep with ADLs and IADLs. Does not drive but does occasionally go to the store with family Precautions: Precautions Medical Precautions: Oxygen therapy device and L/min, Fall precautions (6L trach collar) Vital Signs: Objective Pain: Pain Assessment Pain Assessment: (patient requested pain medication, no pain number given) Cognition: General Assessments: General Observation General Observation: patient sitting up on edge of bed. Patient is unable to speak due to trach but does answer yes/no questions and tries to mouth words. Able to communicate by writing. Patient with trach with trach collar, central line Activity Tolerance Endurance: Decreased tolerance for upright activites Dynamic Sitting Balance Dynamic Sitting-Comments: able to sit on edge of bed with good siting balance without UE support Dynamic Standing Balance Dynamic Standing-Comments: stands with bilateral UE support with min assist Functional Assessments: Bed Mobility Bed Mobility: Yes Bed Mobility 1 Bed Mobility 1: Sitting to supine Level of Assistance 1: Minimum assistance Bed Mobility Comments 1: assist for LEs for sit to supine Transfers Transfer: Yes Transfer 1 Technique 1: Sit to stand, Stand to sit Transfer Device 1: Walker Transfer Level of Assistance 1: Minimum assistance Trials/Comments 1: min assist sit to stand and min assist step pivot. Ambulation/Gait Training Ambulation/Gait Training Performed: No (unable at this time due to fatigue from recent MBS) Extremity/Trunk Assessments: RLE RLE : (hips 2/5, knees and ankles functional for transfers) LLE LLE : (hips 2/5, knees and ankles functional for transfers) Outcome Measures: [facility] Basic Mobility Turning from your back to your side while in a flat bed without using bedrails: A little Moving from lying on your back to sitting on the side of a flat bed without using bedrails: A little Moving to and from bed to chair (including a wheelchair): A lot Standing up from a chair using your arms (e.g. wheelchair or bedside chair): A little To walk in hospital room: Total Climbing 3-5 steps with railing: Total Basic Mobility - Total Score: 13 Goals: Encounter Problems Encounter Problems (Active) PT Problem Patient will perform bed mobility with supervision (Progressing) Start: 06/09/25 Expected End: 06/23/25 Patient will perform sit to stand and stand pivot transfers with supervision (Progressing) Start: 06/09/25 Expected End: 06/23/25 Patient will ambulate 100' with wheeled walker and SBA (Progressing) Start: 06/09/25 Expected End: 06/23/25 Education Documentation Mobility Training, taught by Sheela Roberts PT at 06/09/2025 11:56 AM. Learner: Patient Readiness: Acceptance Method: Explanation Response: Verbalizes Understanding, Needs Reinforcement Comment: safe transfers, up with assist, role of PT Education Comments No comments found. [1] Patient Active Problem List Diagnosis Brain lesion Cervical radiculitis Chronic pain disorder Depression GERD (gastroesophageal reflux disease) Anxiety Atypical chest pain Arthropathy of right shoulder High blood pressure History of high cholesterol Insomnia Lumbosacral radiculopathy Mastoiditis of right side Lumbosacral spondylosis Neurogenic claudication due to lumbar spinal stenosis Sacroiliitis Thyroid disease Right rotator cuff tear Arthropathy of left knee Chronic kidney disease (CKD) Impingement syndrome of right shoulder Vitamin D deficiency Pain of right upper extremity Tracheostomy status (Multi) Malignant neoplasm of larynx Stage 2 chronic kidney disease Chronic obstructive pulmonary disease with (acute) exacerbation (Multi) Alcoholism (Multi) Body mass index (BMI) 45.0-49.9, adult (Multi) Compression fracture of L5 vertebra with routine healing Acute midline low back pain with left-sided sciatica Lumbar radiculopathy Compression fracture of fifth lumbar vertebra (Multi) Chronic bilateral low back pain with bilateral sciatica UTI (urinary tract infection) Sepsis, due to unspecified organism, unspecified whether acute organ dysfunction present (Multi) Vj Myers is a 55 y.o. female on day 3 of admission presenting with UTI (urinary tract infection). Subjective Patient seen and examined at the bedside She just did her swallow study Did not tolerate speaking valve this morning Objective Vitals 24HR Heart Rate: [63-86] Temp: [35.7 C (96.3 F)-36.2 C (97.2 F)] Resp: [10-23] BP: (72-108)/(53-78) SpO2: [98 %-100 %] Intake/Output last 3 Shifts: Intake/Output Summary (Last 24 hours) at 06/09/2025 1152 Last data filed at 06/09/2025 0908 Gross per 24 hour Intake 2451.03 ml Output 400 ml Net 2051.03 ml Physical Exam Constitutional: Appearance: She is obese. She is ill-appearing. HENT: Head: Normocephalic and atraumatic. Right Ear: External ear normal. Left Ear: External ear normal. Nose: Nose normal. Mouth/Throat: Mouth: Mucous membranes are moist. Pharynx: Oropharynx is clear. Eyes: Extraocular Movements: Extraocular movements intact. Conjunctiva/sclera: Conjunctivae normal. Pupils: Pupils are equal, round, and reactive to light. Neck: Comments: Tracheostomy in place Right internal jugular central line Cardiovascular: Rate and Rhythm: Normal rate and regular rhythm. Pulmonary: Effort: Pulmonary effort is normal. Breath sounds: Normal breath sounds. Abdominal: General: Abdomen is flat. Palpations: Abdomen is soft. Skin: General: Skin is warm and dry. Neurological: General: No focal deficit present. Mental Status: She is alert and oriented to person, place, and time. Psychiatric: Mood and Affect: Mood normal. Behavior: Behavior normal. Relevant Results This patient has a central line Reason for the central line remaining today? Hemodynamic monitoring Assessment & Plan UTI (urinary tract infection) Sepsis, due to unspecified organism, unspecified whether acute organ dysfunction present (Multi) Septic shock: Resolved Lactic acidosis: Resolved Acute renal failure: Resolved Anemia with hemoglobin dropped below 7 Alcohol abuse Protein calorie malnutrition with hypoalbuminemia Nicotine abuse History 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 Chronic hypoxemic respiratory failure Multiple sclerosis Plan: Clinically seems to be improving Off of Levophed Will discontinue Precedex use benzodiazepines as needed I have discussed in detail with Dr. Lim We will reach out to cardiothoracic surgery and possibly ENT to see if there is any options of reversing her fistula. She is aspirating Once we get some answers on what her options would be from that standpoint we will know better Getting blood transfused today Continue rest of supportive measures currently as she is on I spent 30 minutes of critical care time directly involved in patient care excluding any billable procedures Anne Gonzales DO Speech-Language Pathology Adult Inpatient Modified Barium Swallow Study Patient Name: Vj Myers : 1970 Today's Date: 06/09/25 Time Calculation Start Time: 0840 Stop Time: 1035 Total Time (min): 115 minutes Time included oral motor exam at bedside, case history, patient/family education, transportation, and the MBSS study Modified Barium Swallow Study completed. Informed verbal consent obtained prior to completion of exam. The study was completed per protocol with various liquid barium consistencies. A 1.9 cm or .75 inch (outer diameter) ring was placed on the chin in the lateral view and on the lateral during swallowing. The anatomic structures and function of the oropharynx, larynx, hypopharynx and cervical esophagus were evaluated. ENFORCEMENT MANAGER: STACY Castillo Contact info: [facility] Reason for Referral: rule out aspiration; rule out cervical esophageal dysfunction Patient Hx: PMHX: depression, GERD, mastoiditis of R side, tracheostomy, malignant neoplasm of larynx with laryngectomy, stage 2 CKD, COPD, alcoholism. On 06/07/25 during the current admission Vj Myers had a tracheotomy. Pertinent information from Dr. Gonzales's procedure note includes: she had a tube sitting in her stoma. This was removed and a stylette was placed. I used the Rhino dilator to dilate the area. The tracheostomy was then placed over the wire. The first time the tube actually went into the esophagus through the fistula. This was removed and replaced as gently as possible superficially as possible at this time we are able to cannulate the tracheal. It was secured in place. Not other complications noted. On 05/1925 Vj Myers received a bronchoscopy to confirm trachea placement. Pertinent information from Dr. Gonzales's procedure note includes: The bronchoscope was advanced through the tracheostomy tube and into the trachea. There is obvious aspirated food present. There is eggs obviously seen. There is a lot of secretions. There was secretions with thick sputum in both the right and the left side there was also a aspirated from both the right and the left side By the end of the procedure we were able to clear all of the food that was seen. Vj Myers was made NPO on 06/07/25 d/t emesis and food/liquid in trach. She was then put on the trach vent. On 06/08/25 the trach vent was removed and she was breathing room air with humidification. Vj reported that she doesn't feel like it is harder to breathe when she eats. Her appetite has been good and she typically takes small bites and eats at a medium rate. She has upper and lower dentures but does not wear them when she eats. She reported difficulty masticating meats and she prefers softer foods. She takes medication whole with water. Respiratory Status: Supplemental oxygen via trach RT was present for the MBSS monitoring vitals and providing suction. Vj S Pozega's cuff was deflated. A Passy Martinez Valve was attempted prior to the MBSS, but patient reported that she could not breathe with it on. Current diet: NPO Pain: Pain Scale: 0-10 Ratin Pain medication was administered by bedside nurse Fall Risk: Yes Based on the results of the MBSS, the following diet is recommended with the implementation of the specified safe swallow strategies: DIET RECOMMENDATION Solids: NPO Liquids: NPO If patient and/or family learn how to suction the trach effectively patient can be upgraded to the Free Water Protocol after oral care and with suction present Plan: Treatment/Interventions: Patient/caregiver education ENFORCEMENT MANAGER Plan: Skilled ENFORCEMENT MANAGER warranted ENFORCEMENT MANAGER Frequency: 1x per week Duration: 2 weeks Discussed POC: Patient Discussed Risks/Benefits: Yes Patient/Caregiver Agreeable: Yes Dysphagia Goal(s): Short Term Goal(s): In 2 weeks... Vj will demonstrate understanding of NPO diet recommendation and the importance of oral care with 80% accuracy. STATUS: Goal established PROGRESS: TBD Goal Start: 06/09/25 Anticipated End: 06/23/25 Goal End: Vj will perform own oral care with minimal cues with 80% accuracy. STATUS: Goal established PROGRESS: TBD Goal Start: 06/09/25 Anticipated End: 06/23/25 Goal End: Patient's Goal for Therapy: to eat and drink Education Provided: Results and recommendations per MBSS. Verbal understanding and agreement given. Additional Medical Consults Suggested: - ENT Repeat study/ dc plan: Determined by physician or treating speech-language pathologist if appropriate. Mechanics of the Swallow Summary: ORAL PHASE: Lip Closure - No labial escape/anterior loss of bolus Tongue Control During Bolus Hold - Cohesive bolus between tongue to palatal seal Bolus prep/mastication - Timely and efficient mastication skills Bolus transport/lingual motion - Brisk tongue motion for A-P movement of the bolus Oral residue - Complete oral clearance PHARYNGEAL PHASE: Initiation of pharyngeal swallow - Bolus head at posterior angle of ramus Soft palate elevation - No bolus between soft palate/pharyngeal wall Laryngeal elevation - N/A Anterior hyoid excursion - N/A Epiglottic movement - N/A Laryngeal vestibule closure - N/A Pharyngeal stripping wave - Present, however, diminished Pharyngeal contraction (A/P view) - Not tested Pharyngoesophageal segment opening - Partial distension/partial duration with partial obstruction of flow of bolus Tongue base retraction - Wide column of contrast or air between tongue base and pharyngeal wall Tongue base retraction present, but does not meet pharyngeal wall. Pharyngeal residue - Collection of residue within or on the pharyngeal structures Vj Myers had a laryngectomy and has a tracheostomy in place. During the MBSS the tracheostomy cuff was deflated. ESOPHAGEAL PHASE: Esophageal clearance - retrograde flow through the upper esophageal sphincter to the nasal cavity. 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 This resulted in barium in the tracheostomy which required suction. ENFORCEMENT MANAGER Impressions with Severity Rating: Pt presents with aspiration due to physiology upon completion of modified barium swallow study this date. Swallowing physiology is detailed above. Impairments most impacting swallowing safety and efficiency include aspiration through the tracheoesophageal fistula. Patient demonstrated thin liquid, nectar thick liquid, and honey thick liquid residue in the tracheostomy post trials which required suction. Patient demonstrated mild oral and pharyngeal residue that was reduced with multiple swallows. *Of note: The A-P bolus follow-through is not intended to be utilized as a diagnostic assessment of the esophagus, rather a tool to observe the biomechanic aspects of the swallow continuum and to inform the need for further evaluation by medical specialists, as applicable. Strategies attempted: -Effortful swallow OUTCOME MEASURES: Functional Oral Intake Scale Functional Oral Intake Scale: Level 1 nothing by mouth Eating Assessment Tool (EAT-10) 0 = No problem, 1 = Mild problem, 2 = Mild to moderate problem, 3 = Moderate problem, 4 = Severe problem EAT 10 My swallowing problem has caused me to lose weight.: 0 My swallowing problem interferes with my ability to go out for meals.: 3 Swallowing liquids takes extra effort.: 0 Swallowing solids takes extra effort.: 2 Swallowing pills takes extra effort.: 1 Swallowing is painful: 0 The pleasure of eating is affected by my swallowing.: 3 When I swallow food sticks in my throat.: 2 I cough when I eat.: 3 Swallowing is stressful: 0 EAT-10 TOTAL SCORE:: 14 A total score of 3 or above may indicate difficulty with swallowing safely and/or efficiently Rosenbek's Penetration Aspiration Scale Thin Liquids: aspiration through the tracheoesophageal fistula [place] Thick Liquids: aspiration through the tracheoesophageal fistula Honey Thick Liquids: aspiration through the tracheoesophageal fistula Puree: Did Not Test Soft Solids: Did Not Test Solids: Did Not Test Music Therapy Note Vj Myers was referred by Dario Casas RN Therapy Session Referral Type: New referral this admission Visit Type: Follow-up visit Session Start Time: 1057 Intervention Delivery: In-person Pre-assessment Unable to Assess Reason: Outcomes not applicable Mood/Affect: Tired/lethargic Treatment/Interventions Music Therapy Interventions: Assessment Post-assessment Unable to Assess Reason: Did not provide expressive therapy intervention Narrative Assessment Detail: Pt was found lying in bed, awake but displaying lethargic affect. MT briefly met with pt to provide assessment and re-introduce services. Intervention: Pt agreeable to services, requesting that MT return later this afternoon. Follow-up: MT will f/u as able. Education Documentation No documentation found. Vj Myers is a 55 y.o. female on day 3 of admission presenting with UTI (urinary tract infection). Subjective Generalized weakness fatigue and anemia Objective Physical Exam General Appearance: AAO x 3, ill-appearing Skin: skin color pink, warm, and dry; no suspicious rashes or lesions Eyes : PERRL, EOM's intact ENT: mucous membranes pink and moist, tracheostomy Neck: normocephalic, right IJ Respiratory: lungs clear to auscultation anteriorly; no wheezing, rhonchi, or crackles. Heart: regular rate and rhythm. Abdomen: Nondistended, positive bowel sounds x4, soft, nontender Extremities: no edema Peripheral pulses: normal x4 extremities Neuro: alert, coherent and conversant, no focal motor deficits Last Recorded Vitals Blood pressure 81/63, pulse 73, temperature 36 C (96.8 F), temperature source Temporal, resp. rate 18, height 1.6 m (5' 3), weight 82.3 kg (181 lb 7 oz), SpO2 100%. Intake/Output last 3 Shifts: I/O last 3 completed shifts: In: 3438.6 (41.8 mL/kg) [I.V.:2378.2 (28.9 mL/kg); IV Piggyback:1060.4] Out: 1175 (14.3 mL/kg) [Urine:1175 (0.4 mL/kg/hr)] Weight: 82.3 kg Relevant Results Results for orders placed or performed during the hospital encounter of 06/05/25 (from the past 24 hours) Comprehensive Metabolic Panel Result Value Ref Range Glucose 102 (H) 74 - 99 mg/dL Sodium 141 136 - 145 mmol/L Potassium 3.8 3.5 - 5.3 mmol/L Chloride 108 (H) 98 - 107 mmol/L Bicarbonate 29 21 - 32 mmol/L Anion Gap 8 (L) 10 - 20 mmol/L Urea Nitrogen 9 6 - 23 mg/dL Creatinine 0.80 0.50 - 1.05 mg/dL eGFR 87 >60 mL/min/1.73m*2 Calcium 7.6 (L) 8.6 - 10.3 mg/dL Albumin 2.2 (L) 3.4 - 5.0 g/dL Alkaline Phosphatase 158 (H) 33 - 110 U/L Total Protein 4.6 (L) 6.4 - 8.2 g/dL AST 85 (H) 9 - 39 U/L Bilirubin, Total 0.6 0.0 - 1.2 mg/dL ALT 14 7 - 45 U/L Magnesium Result Value Ref Range Magnesium 1.72 1.60 - 2.40 mg/dL CBC and Auto Differential Result Value Ref Range WBC 5.1 4.4 - 11.3 x10*3/uL nRBC 0.0 0.0 - 0.0 /100 WBCs RBC 2.19 (L) 4.00 - 5.20 x10*6/uL Hemoglobin 6.8 (L) 12.0 - 16.0 g/dL Hematocrit 22.1 (L) 36.0 - 46.0 % MCV 101 (H) 80 - 100 fL MCH 31.1 26.0 - 34.0 pg MCHC 30.8 (L) 32.0 - 36.0 g/dL RDW 18.0 (H) 11.5 - 14.5 % Platelets 147 (L) 150 - 450 x10*3/uL Neutrophils % 74.5 40.0 - 80.0 % Immature Granulocytes %, Automated 0.8 0.0 - 0.9 % Lymphocytes % 10.3 13.0 - 44.0 % Monocytes % 6.4 2.0 - 10.0 % Eosinophils % 7.2 0.0 - 6.0 % Basophils % 0.8 0.0 - 2.0 % Neutrophils Absolute 3.82 1.20 - 7.70 x10*3/uL Immature Granulocytes Absolute, Automated 0.04 0.00 - 0.70 x10*3/uL Lymphocytes Absolute 0.53 (L) 1.20 - 4.80 x10*3/uL Monocytes Absolute 0.33 0.10 - 1.00 x10*3/uL Eosinophils Absolute 0.37 0.00 - 0.70 x10*3/uL Basophils Absolute 0.04 0.00 - 0.10 x10*3/uL Phosphorus Result Value Ref Range Phosphorus 2.3 (L) 2.5 - 4.9 mg/dL Prepare RBC: 1 Units Result Value Ref Range PRODUCT CODE [id number] Unit Number [id number] Unit ABO O Unit RH POS XM INTEP COMP Dispense Status TR Blood Expiration Date 07/09/2025 11:59:00 PM EDT PRODUCT BLOOD TYPE 5100 UNIT VOLUME 400 VERIFY ABO/Rh Group Test Result Value Ref Range ABO TYPE O Rh TYPE POS Type and screen Result Value Ref Range ABO TYPE O Rh TYPE POS ANTIBODY SCREEN NEG FL modified barium swallow study Result Date: 06/09/2025 Interpreted By: Yann Matthews and Kuhn Zoe STUDY: FL MODIFIED BARIUM SWALLOW STUDY;; 06/09/2025 10:22 am INDICATION: Signs/Symptoms:aspiration, history of Tracheoesophageal fistula. COMPARISON: None. ACCESSION NUMBER(S): [id number] ORDERING CLINICIAN: TALIB MAZA TECHNIQUE: MBSS completed. Informed verbal consent obtained prior to completion of exam. Trials of thin, nectar thick, and honey thick given. ENFORCEMENT MANAGER: Yolis Shah MS, CCC-ENFORCEMENT MANAGER Phone/Pager: Marilia Gera-IT SPEECH FINDINGS: Speech-Language Pathology Adult Inpatient Modified Barium Swallow Study Patient Name: Vj Myers : 1970 Today's Date: 06/09/25 Time Calculation Start Time: 0840 Stop Time: 1035 Total Time (min): 115 minutes Time included oral motor exam at bedside, case history, patient/family education, transportation, and the MBSS study Modified Barium Swallow Study completed. Informed verbal consent obtained prior to completion of exam. The study was completed per protocol with various liquid barium consistencies. A 1.9 cm or .75 inch (outer diameter) ring was placed on the chin in the lateral view and on the lateral during swallowing. The anatomic structures and function of the oropharynx, larynx, hypopharynx and cervical esophagus were evaluated. ENFORCEMENT MANAGER: Yolis Shah ENFORCEMENT MANAGER Contact info: [employer] Reason for Referral: rule out aspiration; rule out cervical esophageal dysfunction Patient Hx: PMHX: depression, GERD, mastoiditis of R side, tracheostomy, malignant neoplasm of larynx with laryngectomy, stage 2 CKD, COPD, alcoholism. On 06/07/25 during the current admission Vj yMers had a tracheotomy. Pertinent information from Dr. Gonzales's procedure note includes: she had a tube sitting in her stoma. This was removed and a stylette was placed. I used the Rhino dilator to dilate the area. The tracheostomy was then placed over the wire. The first time the tube actually went into the esophagus through the fistula. This was removed and replaced as gently as possible superficially as possible at this time we are able to cannulate the tracheal. It was secured in place. Not other complications noted. On 05/1925 Vj Myers received a bronchoscopy to confirm trachea placement. Pertinent information from Dr. Gonzales's procedure note includes: The bronchoscope was advanced through the tracheostomy tube and into the trachea. There is obvious aspirated food present. There is eggs obviously seen. There is a lot of secretions. There was secretions with thick sputum in both the right and the left side there was also a aspirated from both the right and the left side By the end of the procedure we were able to clear all of the food that was seen. Vj Myers was made NPO on 06/07/25 d/t emesis and food/liquid in trach. She was then put on the trach vent. On 06/08/25 the trach vent was removed and she was breathing room air with humidification. Vj reported that she doesn't feel like it is harder to breathe when she eats. Her appetite has been good and she typically takes small bites and eats at a medium rate. She has upper and lower dentures but does not wear them when she eats. She reported difficulty masticating meats and she prefers softer foods. She takes medication whole with water. Respiratory Status: Supplemental oxygen via trach RT was present for the MBSS monitoring vitals and providing suction. Vj S Pozega's cuff was deflated. A Passy Colver Valve was attempted prior to the MBSS, but patient reported that she could not breathe with it on. Current diet: NPO Pain: Pain Scale: 0-10 Ratin Pain medication was administered by bedside nurse Fall Risk: Yes Based on the results of the MBSS, the following diet is recommended with the implementation of the specified safe swallow strategies: DIET RECOMMENDATION Solids: NPO Liquids: NPO If patient and/or family learn how to suction the trach effectively patient can be upgraded to the Free Water Protocol after oral care and with suction present Plan: Treatment/Interventions: Patient/caregiver education ENFORCEMENT MANAGER Plan: Skilled ENFORCEMENT MANAGER warranted ENFORCEMENT MANAGER Frequency: 1x per week Duration: 2 weeks Discussed POC: Patient Discussed Risks/Benefits: Yes Patient/Caregiver Agreeable: Yes Dysphagia Goal(s): Short Term Goal(s): In 2 weeks... Vj will demonstrate understanding of NPO diet recommendation and the importance of oral care with 80% accuracy. STATUS: Goal established PROGRESS: TBD Goal Start: 06/09/25 Anticipated End: 06/23/25 Goal End: Vj will perform own oral care with minimal cues with 80% accuracy. STATUS: Goal established PROGRESS: TBD Goal Start: 06/09/25 Anticipated End: 06/23/25 Goal End: Patient's Goal for Therapy: to eat and drink Education Provided: Results and recommendations per MBSS. Verbal understanding and agreement given. Additional Medical Consults Suggested: - ENT Repeat study/ dc plan: Determined by physician or treating speech-language pathologist if appropriate. Mechanics of the Swallow Summary: ORAL PHASE: Lip Closure - No labial escape/anterior loss of bolus Tongue Control During Bolus Hold - Cohesive bolus between tongue to palatal seal Bolus prep/mastication - Timely and efficient mastication skills Bolus transport/lingual motion - Brisk tongue motion for A-P movement of the bolus Oral residue - Complete oral clearance PHARYNGEAL PHASE: Initiation of pharyngeal swallow - Bolus head at posterior angle of ramus Soft palate elevation - No bolus between soft palate/pharyngeal wall Laryngeal elevation - N/A Anterior hyoid excursion - N/A Epiglottic movement - N/A Laryngeal vestibule closure - N/A Pharyngeal stripping wave - Present, however, diminished Pharyngeal contraction (A/P view) - Not tested Pharyngoesophageal segment opening - Partial distension/partial duration with partial obstruction of flow of bolus Tongue base retraction - Wide column of contrast or air between tongue base and pharyngeal wall Tongue base retraction present, but does not meet pharyngeal wall. Pharyngeal residue - Collection of residue within or on the pharyngeal structures Vj Myers had a laryngectomy and has a tracheostomy in place. During the MBSS the tracheostomy cuff was deflated. ESOPHAGEAL PHASE: Esophageal clearance - retrograde flow through the upper esophageal sphincter to the nasal cavity. 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 This resulted in barium in the tracheostomy which required suction. ENFORCEMENT MANAGER Impressions with Severity Rating: Pt presents with aspiration due to physiology upon completion of modified barium swallow study this date. Swallowing physiology is detailed above. Impairments most impacting swallowing safety and efficiency include aspiration through the tracheoesophageal fistula. Patient demonstrated thin liquid, nectar thick liquid, and honey thick liquid residue in the tracheostomy post trials which required suction. Patient demonstrated mild oral and pharyngeal residue that was reduced with multiple swallows. *Of note: The A-P bolus follow-through is not intended to be utilized as a diagnostic assessment of the esophagus, rather a tool to observe the biomechanic aspects of the swallow continuum and to inform the need for further evaluation by medical specialists, as applicable. Strategies attempted: -Effortful swallow OUTCOME MEASURES: Functional Oral Intake Scale Functional Oral Intake Scale: Level 1 nothing by mouth Eating Assessment Tool (EAT-10) 0 = No problem, 1 = Mild problem, 2 = Mild to moderate problem, 3 = Moderate problem, 4 = Severe problem EAT 10 My swallowing problem has caused me to lose weight.: 0 My swallowing problem interferes with my ability to go out for meals.: 3 Swallowing liquids takes extra effort.: 0 Swallowing solids takes extra effort.: 2 Swallowing pills takes extra effort.: 1 Swallowing is painful: 0 The pleasure of eating is affected by my swallowing.: 3 When I swallow food sticks in my throat.: 2 I cough when I eat.: 3 Swallowing is stressful: 0 EAT-10 TOTAL SCORE:: 14 A total score of 3 or above may indicate difficulty with swallowing safely and/or efficiently Rosenbek's Penetration Aspiration Scale Thin Liquids: aspiration through the tracheoesophageal fistula [place] Thick Liquids: aspiration through the tracheoesophageal fistula Honey Thick Liquids: aspiration through the tracheoesophageal fistula Puree: Did Not Test Soft Solids: Did Not Test Solids: Did Not Test Speech Therapy section of this report signed by Yolis Shah MS CCC-ENFORCEMENT MANAGER on 06/09/2025 at 11:18 am. RADIOLOGY FINDINGS: Thin and thick barium were utilized this examination performed in the sitting lateral position. There is a small amount of intermittent visualization of contrast, in the mid trachea just below the level of the tracheostomy tube consistent with tracheoesophageal fistula. However the exact site of the fistula could not be determined. Suction of the tracheostomy tube was performed by the respiratory therapy technologist. Radiology section of this report signed by Yann Hilario M.D. Tracheoesophageal fistula without exact localization of the site of fistulization. Oral contrast is intermittently seen slightly below the level of the tracheostomy tube and coming out of the tracheostomy tube. Please see detailed swallowing physiology above. MACRO: None Signed by: Yann Matthews 06/09/2025 1:19 PM Dictation workstation: [id number] Scheduled medications Scheduled Medications[1] Continuous medications Continuous Medications[2] PRN medications PRN Medications[3] This patient has a central line Reason for the central line remaining today? Parenteral medication Assessment & Plan UTI (urinary tract infection) Patient was initially started on IV vancomycin and Zosyn. Discontinued vancomycin at this time. unsure if the patient truly had a urinary tract infection. Blood cultures are negative. Urine culture is contaminated. Patient's infection may have been more related to aspiration pneumonia. UTI ruled out Sepsis, due to unspecified organism, unspecified whether acute organ dysfunction present (Multi) She very well could have aspiration and developed pneumonia. Continue IV Zosyn. Continue fluids with dextrose lactated Ringer's at 75 mL/h. Continue IV antibiotics. Follow cultures.Bronchial wash was obtained on June 07. 3) septic shock, aspiration pneumonia likely Blood pressure labile Continue fluid resuscitation Patient on Levophed drip and to keep map above 65 Follow cultures 4) anemia Follow CBC Hemoglobin dropped, transfuse 1 unit of blood Hold any blood thinners at this time 5) hypokalemia, was replaced 6) hypophosphatemia, to replace with IV Phos 7) history of throat cancer Supportive care Tracheostomy in place new tube placed on June 07. 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 ENFORCEMENT MANAGER Consider gastroenterology consultation to evaluate for peg tube MBS 8) hypomagnesemia, was replaced 9) lactic acidosis, secondary to septic shock improved with fluids Refractory with hypotension Continue IV fluids and trend labs 10) history of alcohol abuse, smoking [facility] protocol Multivitamin, thiamine folic acid On Precedex drip wean off Counseling education Address noncompliance 13) elevated liver enzymes Alcohol abuse CT of the abdomen showed fatty liver disease Hep panel 14) aspiration pneumonia on IV Zosyn DVT prophylaxis, SCDs 11) hyperlipidemia, statins Disposition, at least 48 hours to determine further course of action Lucretia Mcfarland MD [1] [Held by provider] amLODIPine, 5 mg, oral, Daily [Held by provider] carvedilol, 6.25 mg, oral, BID [Held by provider] folic acid, 1 mg, oral, Daily folic acid, 1 mg, intravenous, q24h [Held by provider] furosemide, 20 mg, oral, Daily ipratropium-albuteroL, 3 mL, nebulization, 4x daily [Held by provider] levothyroxine, 137 mcg, oral, Daily [Held by provider] liothyronine, 5 mcg, oral, Daily [Held by provider] LORazepam, 0.5 mg, oral, BID [Held by provider] magnesium oxide, 400 mg of magnesium oxide, oral, BID [Held by provider] midodrine, 10 mg, oral, TID [Held by provider] multivitamin with minerals, 1 tablet, oral, Daily pantoprazole, 40 mg, intravenous, BID piperacillin-tazobactam, 4.5 g, intravenous, q6h [Held by provider] pregabalin, 100 mg, oral, TID [Held by provider] sertraline, 50 mg, oral, Daily [Held by provider] thiamine, 100 mg, oral, Daily [2] [3] PRN medications: acetaminophen, alteplase, diazePAM, ketorolac, methocarbamol, oxygen Vj Myers is a 55 y.o. female on day 2 of admission presenting with UTI (urinary tract infection). Subjective Patient seen and examined at bedside. No acute events overnight. She has been taken off the ventilator and is satting well on trach mask. She has had no further episodes of vomiting overnight. She is still on Levophed drip. She appears comfortable on Precedex drip. Case was discussed with ENFORCEMENT MANAGER, Yolis Shah. With her history of tracheoesophageal fistula, we will move forward with MBS for further evaluation. Objective Last Recorded Vitals BP 97/64 Pulse 73 Temp 35.8 C (96.4 F) (Temporal) Resp 11 Wt 82.3 kg (181 lb 7 oz) SpO2 100% Intake/Output last 3 Shifts: Intake/Output Summary (Last 24 hours) at 06/08/2025 1414 Last data filed at 06/08/2025 1043 Gross per 24 hour Intake 1849.56 ml Output 1175 ml Net 674.56 ml Admission Weight Weight: 80 kg (176 lb 5.9 oz) (06/05/25 1900) Daily Weight 06/07/25 : 82.3 kg (181 lb 7 oz) Image Results XR chest 1 view Narrative: Interpreted By: Amy Gonzales, STUDY: XR CHEST 1 VIEW; 06/07/2025 11:06 am INDICATION: Signs/Symptoms:central line confirmation. COMPARISON: 06/07/2025 at 7:47 a.m.; CT chest dated 06/05/2025 ACCESSION NUMBER(S): [id number] ORDERING CLINICIAN: TALIB MAZA FINDINGS: The heart is normal in size. There is bilateral basilar infiltrate and/or atelectasis. A venous catheter is present on the right with the tip in the region of the right atrium. There is what apparently represents a tracheostomy tube. COMPARISON OF FINDING: The lung bases were clear the prior CT chest. Impression: Bilateral basilar infiltrate and/or atelectasis. Interval placement of a right venous catheter. MACRO: none Signed by: Amy Gonzales 06/07/2025 12:25 PM Dictation workstation: [id number] XR chest 1 view Narrative: Interpreted By: Surya Rubio, STUDY: XR CHEST 1 VIEW; 06/07/2025 7:56 am INDICATION: Signs/Symptoms:hypoxia, aspiration. COMPARISON: 06/05/2025 ACCESSION NUMBER(S): [id number] ORDERING CLINICIAN: TALIB MAZA FINDINGS: Tracheostomy tube in place CARDIOMEDIASTINAL SILHOUETTE: Cardiomediastinal silhouette is normal in size and configuration. LUNGS: Worsening bibasilar airspace disease worse on the right. No effusion seen. No edema ABDOMEN: No remarkable upper abdominal findings. BONES: No acute osseous changes. Impression: 1. Worsening basilar airspace disease especially on the right. Pneumonia or aspiration pneumonitis in the differential MACRO: None Signed by: Surya Rubio 06/07/2025 9:16 AM Dictation workstation: [id number] Physical exam: General: Chronically ill appearing. Pale HENT: Head: Normocephalic and atraumatic. Mouth: Mucous membranes are moist. Neck: Tracheostomy in place Eyes: Pupils are equal, round, and reactive to light. Cardiovascular: Normal rate and regular rhythm. Normal S1, S2. No murmurs, clicks, gallops. Pulmonary: Clear to auscultation bilaterally. No wheezing, rhonchi, or crackles heard. Abdominal: Bowel sounds are normal. Abdomen is soft, nontender, nondistended Skin: No lesions seen Musculoskeletal: Extremities: No edema present. No deformities with no abnormal range of motion Neck supple. Neurological: Mental Status: Patient is alert and oriented X3 CN II-XII intact. No focal neurologic deficits appreciated. Relevant Results Assessment/Plan This patient currently has cardiac telemetry ordered; if you would like to modify or discontinue the telemetry order, click here to go to the orders activity to modify/discontinue the order. Assessment & Plan UTI (urinary tract infection) Patient was initially started on IV vancomycin and Zosyn. Discontinue vancomycin at this time. I am unsure if the patient truly had a urinary tract infection. Blood cultures are negative. Urine culture is contaminated. Patient's infection may have been more related to aspiration pneumonia. Sepsis, due to unspecified organism, unspecified whether acute organ dysfunction present (Multi) Potentially secondary to UTI but cultures have been negative so far. She very well could have aspiration and developed pneumonia. Continue IV Zosyn. Continue fluids with dextrose lactated Ringer's at 75 mL/h. Continue IV antibiotics. Follow cultures.Bronchial wash was obtained on June 07. 3. Septic shock: Blood pressures still low despite appropriate fluid resuscitation. Hold antihypertensives. Midodrine was attempted but she is not tolerating p.o. continue Levophed drip and wean as tolerated. 4. Normocytic anemia: Her last hemoglobin was 14.6 4 months ago. This was 9.5 on initial evaluation and has now decreased to 7.1. Repeat H&H's have remained above 7. No reported dark stools in house despite patient reporting dark stools at home. Hold pharmacologic DVT prophylaxis. 5. Hypokalemia: Improved with replacement. Follow-up BMP in the morning. Continue monitoring on telemetry. 6. History of throat cancer: Status post tracheostomy. Patient is receiving no further treatment for this. She has a tracheostomy in place without a tube. She had a new tube placed on June 07. 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 I do not believe the patient is safe to swallow anything p.o. at this time. Consult speech therapy. I suspect the patient likely will require PEG tube. We will also consult GI to evaluate for this. Will also order [facility] for further information. 7. Alcohol abuse: Patient drinks over a pint of liquor every day. Continue following CIWA protocol and replacing vitamins. Continue Precedex drip. Start weaning off tomorrow. 8. Hypomagnesemia: Improved with replacement. Follow-up magnesium level in the morning. 9. Lactic acidosis: Secondary to sepsis. Improved with fluids but then became refractory with hypotension. Continue fluids and pressors. 10. Hyperlipidemia 11. Medical noncompliance: It does not appear that she has filled any medication since November. She also stopped following up with her [employer] in regards to her tracheostomy. She continues to drink and smoke even after treatment for her throat cancer. There is concern that depression may be contributing to the patient's status. we will continue Zoloft when able for now. Discontinue Lexapro to avoid serotonin syndrome. 12. Active tobacco abuse 13. Elevated liver enzymes: Likely related to alcohol abuse. This has decreased on trend. Obtain hepatitis panel. CT of the abdomen showed fatty liver disease. 14. Hypophosphatemia: Give IV sodium phosphate 30 mmol at this time. Follow-up phosphorus level in the morning. 15. Aspiration pneumonia: Continue IV Zosyn. Bronchial wash was obtained on bronchoscopy on June 07. DVT ppx: SCDs Diet: Regular Disposition: Continue IV Zosyn. Continue fluids and weaning off pressors. Follow [facility] cultures. Continue treating for alcohol withdrawal and start weaning off Precedex drip tomorrow. We will evaluate patient's swallow function and determine if she will require PEG tube. Anticipate the patient will remain hospitalized for at least additional 48 hours. Talib Maza DO Pt reviewed during Care Rounds and she is not medically ready for discharge; ADOD is several days. SW attempted to meet with pt to discuss discharge plans; however, her trach was replaced today under sedation and she still has not woke up. GI also consulted for possible PEG tube placement. Pt will likely require SNF placement at discharge. Per medical record review, she has been to [facility] in the past. Therapy orders requested, but not yet appropriate. Pt has been living at home with her significant other who has reported to several staff members that she has not been taking good care of herself- drinking several pints of vodka/day, smoking, not taking her medications, or following up with doctor appointments. Pt did share with assessing TCC that she had a lot of childhood trauma that she has never worked through and also a series of deaths recently. Unfortunately Medicare does not pay for residential treatment for substance use disorder, nor is pt appropriate for the same due to medical complexity. She will likely detox here and then require SNF placement. Care Transitions will continue to follow. BEST Mock Vj Myers is a 55 y.o. female on day 1 of admission presenting with UTI (urinary tract infection). Subjective Patient seen and examined at bedside. She had an episode of vomiting overnight. ABGs were obtained that showed no retention of CO2. She was placed on a trach mask for hypoxia. I had evaluated the patient multiple times today. In the morning, she appeared comfortable we had attempted eating but her food appeared to go straight through her tracheostomy. After this, she was made NPO. Critical care with Dr. Gonzales evaluated the patient and inserted right IJ central line, tracheostomy tube, and performed a bronchoscopy. I had started the patient on Precedex to treat worsening alcohol withdrawal. She has also been started on Levophed for hypotension since she is unable to take anything by mouth with midodrine. Objective Last Recorded Vitals BP 123/78 Pulse 93 Temp 36 C (96.8 F) (Temporal) Resp 11 Wt 82.3 kg (181 lb 7 oz) SpO2 100% Intake/Output last 3 Shifts: Intake/Output Summary (Last 24 hours) at 06/07/2025 1233 Last data filed at 06/07/2025 1122 Gross per 24 hour Intake 2409.37 ml Output -- Net 2409.37 ml Admission Weight Weight: 80 kg (176 lb 5.9 oz) (06/05/25 1900) Daily Weight 06/07/25 : 82.3 kg (181 lb 7 oz) Image Results XR chest 1 view Narrative: Interpreted By: Amy Gonzales, STUDY: XR CHEST 1 VIEW; 06/07/2025 11:06 am INDICATION: Signs/Symptoms:central line confirmation. COMPARISON: 06/07/2025 at 7:47 a.m.; CT chest dated 06/05/2025 ACCESSION NUMBER(S): [id number] ORDERING CLINICIAN: TALIB MAZA FINDINGS: The heart is normal in size. There is bilateral basilar infiltrate and/or atelectasis. A venous catheter is present on the right with the tip in the region of the right atrium. There is what apparently represents a tracheostomy tube. COMPARISON OF FINDING: The lung bases were clear the prior CT chest. Impression: Bilateral basilar infiltrate and/or atelectasis. Interval placement of a right venous catheter. MACRO: none Signed by: Amy Gonzales 06/07/2025 12:25 PM Dictation workstation: [id number] XR chest 1 view Narrative: Interpreted By: Surya Rubio, STUDY: XR CHEST 1 VIEW; 06/07/2025 7:56 am INDICATION: Signs/Symptoms:hypoxia, aspiration. COMPARISON: 06/05/2025 ACCESSION NUMBER(S): [id number] ORDERING CLINICIAN: TALIB MAZA FINDINGS: Tracheostomy tube in place CARDIOMEDIASTINAL SILHOUETTE: Cardiomediastinal silhouette is normal in size and configuration. LUNGS: Worsening bibasilar airspace disease worse on the right. No effusion seen. No edema ABDOMEN: No remarkable upper abdominal findings. BONES: No acute osseous changes. Impression: 1. Worsening basilar airspace disease especially on the right. Pneumonia or aspiration pneumonitis in the differential MACRO: None Signed by: Surya Rubio 06/07/2025 9:16 AM Dictation workstation: [id number] Physical exam: General: Chronically ill appearing. Pale HENT: Head: Normocephalic and atraumatic. Mouth: Mucous membranes are moist. Neck: Tracheostomy in place Eyes: Pupils are equal, round, and reactive to light. Cardiovascular: Normal rate and regular rhythm. Normal S1, S2. No murmurs, clicks, gallops. Pulmonary: Clear to auscultation bilaterally. No wheezing, rhonchi, or crackles heard. Abdominal: Bowel sounds are normal. Abdomen is soft, nontender, nondistended Skin: No lesions seen Musculoskeletal: Extremities: No edema present. No deformities with no abnormal range of motion Neck supple. Neurological: Mental Status: Patient is alert and oriented X3 CN II-XII intact. No focal neurologic deficits appreciated. Relevant Results Assessment/Plan This patient currently has cardiac telemetry ordered; if you would like to modify or discontinue the telemetry order, click here to go to the orders activity to modify/discontinue the order. Assessment & Plan UTI (urinary tract infection) Patient was initially started on IV vancomycin and Zosyn. Discontinue vancomycin at this time. Continue following cultures. I am unsure if the patient truly had a urinary tract infection. Blood cultures are negative. Urine culture is contaminated. Sepsis, due to unspecified organism, unspecified whether acute organ dysfunction present (Multi) Potentially secondary to UTI but cultures have been negative so far. She very well could have aspiration and developed pneumonia. Continue IV Zosyn. Continue fluids with lactated Ringer's at 75 mL/h. Continue IV antibiotics. Follow cultures. 3. Septic shock: Blood pressures still low despite appropriate fluid resuscitation. Hold antihypertensives. Midodrine was attempted but she is not tolerating p.o. We will start Levophed drip. 4. Normocytic anemia: Her last hemoglobin was 14.6 4 months ago. This was 9.5 on initial evaluation and has now decreased to 7.1. Repeat H&H's have remained above 7. No reported dark stools in house despite patient reporting dark stools. Hold pharmacologic DVT prophylaxis. 5. Hypokalemia: Improved with replacement. Follow-up BMP in the morning. Continue monitoring on telemetry. 6. History of throat cancer: Status post tracheostomy. Patient is receiving no further treatment for this. She has a tracheostomy in place without a tube. She had a new tube placed on June 07. 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 I do not believe the patient is safe to swallow anything p.o. at this time. Consult speech therapy. I suspect the patient likely will require PEG tube. We will also consult GI to evaluate for this. 7. Alcohol abuse: Patient drinks over a pint of liquor every day. Continue following CIWA protocol and replacing vitamins. Start Precedex drip. 8. Hypomagnesemia: Improved with replacement. Follow-up magnesium level in the morning. 9. Lactic acidosis: Secondary to sepsis. Improved with fluids but then became refractory with hypotension. Continue fluids and pressors. 10. Hyperlipidemia 11. Medical noncompliance: It does not appear that she has filled any medication since November. She also stopped following up with her [employer] company in regards to her tracheostomy. She continues to drink and smoke even after treatment for her throat cancer. There is concern that depression may be contributing to the patient's status. we will continue Zoloft when able for now. Discontinue Lexapro to avoid serotonin syndrome. 12. Active tobacco abuse 13. Elevated liver enzymes: Likely related to alcohol abuse. This has decreased on trend. Obtain hepatitis panel. CT of the abdomen showed fatty liver disease. 14. Hypophosphatemia: Give IV sodium phosphate 30 mmol at this time. Follow-up phosphorus level in the morning. 15. Aspiration pneumonia: Continue IV Zosyn. Tracheal aspirate was obtained on bronchoscopy on June 07. DVT ppx: SCDs Diet: Regular Disposition: Continue IV Zosyn. Continue fluids and weaning off pressors. Replace electrolytes. Follow [facility] cultures. Continue treating for alcohol withdrawal. We will evaluate patient's swallow function and determine if she will require PEG tube. Anticipate the patient will remain hospitalized for at least additional 48 hours. Talib Maza DO Vj Myers is a 55 y.o. female on day 0 of admission presenting with UTI (urinary tract infection). Subjective Patient seen and examined at bedside. She was admitted to the hospital yesterday for sepsis secondary to urinary tract infection. Patient's boyfriend is at bedside and assists in history taking. She admits to drinking a pint of whiskey a day. Her boyfriend states that she may be drinking upwards of 4 pints of vodka every day. She drinks very consistently and when she runs out of liquor, she loses her temper. Patient has a tracheostomy without any Valve or other equipment for it. Respiratory therapist, Xi, had updated me that she has not followed up with her [employer] company[employer], in order to have this set up. Objective Last Recorded Vitals BP (!) 67/52 Pulse 97 Temp 35.8 C (96.4 F) (Temporal) Resp 18 Wt 82.1 kg (181 lb) SpO2 92% Intake/Output last 3 Shifts: Intake/Output Summary (Last 24 hours) at 06/06/2025 1316 Last data filed at 06/06/2025 1200 Gross per 24 hour Intake 6611.66 ml Output -- Net 6611.66 ml Admission Weight Weight: 80 kg (176 lb 5.9 oz) (06/05/25 1900) Daily Weight 06/06/25 : 82.1 kg (181 lb) Image Results ECG 12 lead Sinus tachycardia Otherwise normal ECG When compared with ECG of 12-JAN-2025 17:34, Previous ECG has undetermined rhythm, needs review Criteria for Septal infarct are no longer Present Nonspecific T wave abnormality now evident in Lateral leads Physical exam: General: Chronically ill appearing. Pale HENT: Head: Normocephalic and atraumatic. Mouth: Mucous membranes are moist. Neck: Tracheostomy in place Eyes: Pupils are equal, round, and reactive to light. Cardiovascular: Normal rate and regular rhythm. Normal S1, S2. No murmurs, clicks, gallops. Pulmonary: Clear to auscultation bilaterally. No wheezing, rhonchi, or crackles heard. Abdominal: Bowel sounds are normal. Abdomen is soft, nontender, nondistended Skin: No lesions seen Musculoskeletal: Extremities: No edema present. No deformities with no abnormal range of motion Neck supple. Neurological: Mental Status: Patient is alert and oriented X3 CN II-XII intact. No focal neurologic deficits appreciated. Relevant Results Assessment/Plan This patient currently has cardiac telemetry ordered; if you would like to modify or discontinue the telemetry order, click here to go to the orders activity to modify/discontinue the order. Assessment & Plan UTI (urinary tract infection) Patient was initially started on IV vancomycin and Zosyn. Discontinue vancomycin at this time. Continue following cultures. Sepsis, due to unspecified organism, unspecified whether acute organ dysfunction present (Multi) Appears to be secondary to urinary tract infection. Will continue fluids decreased to 100 mL/h. Continue IV antibiotics. Follow cultures. 3. Septic shock: Blood pressures still low despite appropriate fluid resuscitation. Asymptomatic at this time. We will start midodrine 10mg TID. Continue following blood pressures. Hold antihypertensives. 4. Normocytic anemia: Her last hemoglobin was 14.64 months ago. This was 9.5 on initial evaluation and has now decreased to 7.1. Repeat H&H at this time. Patient does report dark stools. Hold Lovenox. 5. Hypokalemia: Replace potassium. Follow-up BMP in the morning. Continue monitoring on telemetry. 6. History of throat cancer: Status post tracheostomy. Patient is receiving no further treatment for this. She need to discuss her equipment with her [employer] company at discharge in regards to her tracheostomy. She has not followed up with them in a long time and thus has no valve present. Despite this, her ostomy is still patent 7. Alcohol abuse: Patient drinks over a pint of liquor every day. Continue following CIWA protocol and replacing vitamins. If withdrawal symptoms become uncontrolled on as needed medications, we will start scheduled phenobarbital versus Precedex drip. 8. Hypomagnesemia: Improved with replacement. Follow-up magnesium level in the morning. 9. Lactic acidosis: Secondary to sepsis. Improved with fluids. 10. Hyperlipidemia 11. Medical noncompliance: It does not appear that she has filled any medication since November. She also stopped following up with her [employer] company in regards to her tracheostomy. She continues to drink and smoke even after treatment for her throat cancer. There is concern that depression may be contributing to the patient's status. we will continue Zoloft for now. Discontinue Lexapro. 12. Active tobacco abuse 13. Elevated liver enzymes: Likely related to alcohol abuse. This has decreased on trend. Obtain hepatitis panel. CT of the abdomen showed fatty liver disease. DVT ppx: SCDs Diet: Regular Disposition: Continue IV Zosyn. Follow cultures. Replace electrolytes. Continue treating for alcohol withdrawal. Start midodrine for hypotension. Anticipate the patient will remain hospitalized for at least additional 48 hours. Talib Maza DO Music Therapy Note Vj Myers was referred by Dario Casas RN Therapy Session Referral Type: New referral this admission Visit Type: Follow-up visit Session Start Time: 1245 Session End Time: 1313 Intervention Delivery: In-person Conflict of Service: None Number of family members present: 1 Family Present for Session: Spouse/Significant Other Family Participation: Disengaged Pre-assessment Unable to Assess Reason: Physical limitation Mood/Affect: Depressed, Tired/lethargic Treatment/Interventions Areas of Focus: Relaxation Music Therapy Interventions: Music-facilitated relaxation Interruption: Yes Interrupted by: Staff Interruption Outcome: Session resumed Patient Fell Asleep at End of Session: No Post-assessment Unable to Assess Reason: Physical limitation Mood/Affect: Tired/lethargic Verbalized Emotional State: Gratitude Continue Visiting: Yes Total Session Time (min): 28 minutes Narrative Assessment Detail: Pt presented awake, lying in bed with HOB raised, displaying depressed and lethargic affect. Pt oriented to MT upon arrival and remained attentive throughout reintroduction. Pt remained agreeable to MT services, expressing an interest in music-facilitated relaxation as evidenced by nodding head. Plan: MT engaged pt in music-facilitated relaxation as a means of increasing relaxation. Intervention: Pt participated by listening to the guided meditation presented live by MT with guitar and voice. Evaluation: Pt remained engaged for the duration of the session, as evidenced by closing eyes as guided by the script. During music stimuli, pt displayed an increase in relaxation response, as evidenced by loosened body posture and deepened breathing. Pt requested to sleep following the meditation, and expressed gratitude to MT upon exit. Follow-up: MT will continue to f/u as appropriate. Education Documentation Resources, taught by Mel Duncan at 06/06/2025 11:52 AM. Learner: Patient Readiness: Acceptance Method: Explanation Response: Demonstrated Understanding Coping Strategies, taught by Mel Duncan at 06/06/2025 11:52 AM. Learner: Patient Readiness: Acceptance Method: Explanation Response: Demonstrated Understanding Relaxation, taught by Mel Duncan at 06/06/2025 11:52 AM. Learner: Patient Readiness: Acceptance Method: Explanation Response: Demonstrated Understanding Music Therapy Note Vj Myers was referred by Dario Casas RN Therapy Session Referral Type: New referral this admission Visit Type: New visit Session Start Time: 1119 Session End Time: 1121 Intervention Delivery: In-person Conflict of Service: None Number of family members present: 1 Pre-assessment Unable to Assess Reason: Outcomes not applicable Mood/Affect: Depressed Treatment/Interventions Music Therapy Interventions: Assessment Post-assessment Unable to Assess Reason: Did not provide expressive therapy intervention Continue Visiting: Yes Total Session Time (min): 2 minutes Narrative Assessment Detail: MT met with pt at [facility] to provide education focused on coping skills and provide offering of services. Intervention: Pt expressed agreement to services, as evidenced by nodding head, and agreeable to MT returning in the afternoon. Follow-up: MT will f/u as appropriate. Education Documentation Resources, taught by Mel Duncan at 06/06/2025 11:52 AM. Learner: Patient Readiness: Acceptance Method: Explanation Response: Demonstrated Understanding Coping Strategies, taught by Mel Duncan at 06/06/2025 11:52 AM. Learner: Patient Readiness: Acceptance Method: Explanation Response: Demonstrated Understanding Relaxation, taught by Mel Duncan at 06/06/2025 11:52 AM. Learner: Patient Readiness: Acceptance Method: Explanation Response: Demonstrated Understanding 06/06/25 1217 Discharge Planning Living Arrangements Spouse/significant other;Children (Significant other, adult son) Support Systems Spouse/significant other;Children;Family members Assistance Needed None Type of Residence Private residence Number of Stairs to Enter Residence 1 (2 story home) Number of Stairs Within Residence 0 (Bedroom/bath on first floor) Do you have animals or pets at home? Yes Type of Animals or Pets 2 dogs Who is requesting discharge planning? Provider Home or Post Acute Services None Expected Discharge Disposition Othe (TBD, Home vs Rehab) Does the patient need discharge transport arranged? No Financial Resource Strain How hard is it for you to pay for the very basics like food, housing, medical care, and heating? Not very Housing Stability In the last 12 months, was there a time when you were not able to pay the mortgage or rent on time? N In the past 12 months, how many times have you moved where you were living? 0 At any time in the past 12 months, were you homeless or living in a mcc (including now)? N Transportation Needs In the past 12 months, has lack of transportation kept you from medical appointments or from getting medications? no In the past 12 months, has lack of transportation kept you from meetings, work, or from getting things needed for daily living? No Stroke Family Assessment Stroke Family Assessment Needed No Intensity of Service Intensity of Service 0-30 min Care Transitions: Met with patient and significant other Ryne at bedside. Role of TCC explained. Demographics and contacts verified. She resides with significant other and 18 year old son. PCP is Stevenson [facility]. Preferred pharmacy is [facility]. Denies any difficulty obtaining/affording medications. She is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 interval not displayed. Recent Labs 06/27/24 0705/29/24 1553 04/19/24 0915 02/02/24 1158 10/24/23 0552 ALBUMIN 3.6 4.0 3.5 3.8 2.7* ALKPHOS 95 90 97 79 59 ALT <3* <3* <3* 3* 4* AST 9 9 9 6* 19 BILITOT 0.2 0.6 0.3 0.5 0.4 LIPASE -- 18 -- -- -- CBC: Recent Labs 01/07/25 17506/27/24 0722 05/29/24 1553 04/19/24 0915 04/08/24 2240 WBC 5.6 5.9 8.4 5.1 8.2 HGB 14.0 11.7* 13.4 11.8* 12.2 HCT 43.6 37.6 41.2 38.8 38.2 PLT 153 231 175 216 234 MCV 92 95 90 93 90 COAG: Recent Labs 06/27/24 0722 05/29/24 1640 04/25/22 1802 INR -- 0.9 1.0 DDIMERVTE 440 -- 512* ABO: No results for input(s): ABO in the last 83696 hours. HEME/ENDO: Recent Labs 10/24/23 0552 06/03/20 1314 TSH 1.17 2.52 CARDIAC: Recent Labs 01/07/25 1901 01/07/25 1751 06/27/24 0844 06/27/24 0722 05/29/24 1553 02/02/24 1158 10/22/23 2114 04/25/22 1847 04/25/22 1802 TROPHS 79* 24* 7 7 9 < > 8 < > 3 BNP -- 80 -- 97 -- -- 30 -- 11 < > = values in this interval not displayed. No results for input(s): CHOL, LDLF, HDL, TRIG in the last 72952 hours. Intake & Output Net IO Since Admission: 50 mL [01/08/25 0842] Today's Weight: Vitals: 01/07/252102 Weight: 90.2 kg (198 lb 13.7 oz) Inpatient Medications: Current Facility-Administered Medications: acetaminophen (Tylenol) tablet 650 mg, 650 mg, oral, q4h PRN, 650 mg at 01/07/25 225 OR acetaminophen (Tylenol) oral liquid 650 mg, 650 mg, oral, q4h PRN OR acetaminophen (Tylenol) suppository 650 mg, 650 mg, rectal, q4h PRN, Jose Suero MD amLODIPine (Norvasc) tablet 10 mg, 10 mg, oral, Daily, Jose Suero MD atorvastatin (Lipitor) tablet 20 mg, 20 mg, oral, Daily, Jose Suero MD carvedilol (Coreg) tablet 6.25 mg, 6.25 mg, oral, BID, Jose Suero MD, 6.25 mg at 01/07/25 225 cefTRIAXone (Rocephin) 1 g in dextrose (iso) IV 50 mL, 1 g, intravenous, q24h, Jose Suero MD citalopram (CeleXA) tablet 20 mg, 20 mg, oral, Daily, Jose Suero MD flu vaccine trivalent (PF) (Fluarix/Fluzone/Flulaval) 6 months or greater injection, 0.5 mL, intramuscular, During hospitalization, Jose Suero MD folic acid (Folvite) tablet 1 mg, 1 mg, oral, Daily, Jose Suero MD ipratropium-albuteroL (Duo-Neb) 0.5-2.5 mg/3 mL nebulizer solution 3 mL, 3 mL, nebulization, 4x daily, Jose Suero MD, 3 mL at 01/08/25 0645 levothyroxine (Synthroid, Levoxyl) tablet 137 mcg, 137 mcg, oral, Daily, Jose Suero MD liothyronine (Cytomel) tablet 5 mcg, 5 mcg, oral, Daily, Jose Suero MD LORazepam (Ativan) injection 0.5 mg, 0.5 mg, intravenous, q2h PRN OR LORazepam (Ativan) injection 1 mg, 1 mg, intravenous, q2h PRN OR LORazepam (Ativan) injection 2 mg, 2 mg, intravenous, q2h PRN, Jose Suero MD magnesium hydroxide (Milk of Magnesia) 400 mg/5 mL suspension 30 mL, 30 mL, oral, Daily PRN, Jose Suero MD ondansetron ODT (Zofran-ODT) disintegrating tablet 4 mg, 4 mg, oral, q8h PRN OR ondansetron (Zofran) injection 4 mg, 4 mg, intravenous, q8h PRN, Jose Suero MD oxygen (O2) therapy, , inhalation, Continuous PRN - O2/gases, Jose Suero MD, Last Rate: 120,000 mL/hr at 01/07/25 1918, 40 percent at 01/08/25 0645 pantoprazole (ProtoNix) EC tablet 40 mg, 40 mg, oral, Daily before breakfast, Jose Suero MD pneumococcal conjugate 20-valent (PREVNAR 20) vaccine, 0.5 mL, intramuscular, During hospitalization, Jose Suero MD sertraline (Zoloft) tablet 50 mg, 50 mg, oral, Daily, Jose Suero MD VITALS Vitals: 01/08/25 0801 BP: Pulse: Resp: Temp: 36.3 C (97.3 F) SpO2: 94% PHYSICAL EXAM Physical Exam Vitals and nursing note reviewed. Constitutional: General: She is not in acute distress. Appearance: She is cachectic. She is ill-appearing. HENT: Head: Normocephalic and atraumatic. Mouth/Throat: Mouth: Mucous membranes are moist. Pharynx: Oropharynx is clear. Eyes: General: No scleral icterus. Pupils: Pupils are equal, round, and reactive to light. Cardiovascular: Rate and Rhythm: Normal rate and regular rhythm. Pulses: Normal pulses. Heart sounds: Normal heart sounds, S1 normal and S2 normal. No murmur heard. No friction rub. Pulmonary: Effort: Pulmonary effort is normal. Breath sounds: Normal breath sounds. Abdominal: General: Bowel sounds are normal. There is no distension. Palpations: Abdomen is soft. Tenderness: There is no abdominal tenderness. Musculoskeletal: General: Normal range of motion. Cervical back: Normal range of motion and neck supple. Right lower leg: No edema. Left lower leg: No edema. Skin: General: Skin is warm and dry. Capillary Refill: Capillary refill takes less than 2 seconds. Findings: No rash. Neurological: General: No focal deficit present. Mental Status: She is alert. Psychiatric: Mood and Affect: Mood normal. Behavior: Behavior normal. Cardiology will continue to follow Thank you for this interesting clinical case and allowing me to participate in the care of this patient. Please reach me out if you have any questions or if you need any clarifications regarding the patient's care. Disclaimer: This note was dictated by speech recognition, and every effort has been made to prevent any error in change room attendant, however minor errors may be present Neeru Wolff, MSN, EMBALMER APPRENTICE, ACNPC, CCRN Advanced Practice Provider, Nurse Practitioner Division of Cardiovascular Medicine [facility] [place] [facility] documented in this encounter [facility] Work Phone: 01-09-2025 Plan of care note The patient's goals for the shift include The clinical goals for the shift include pt will hav no falls during shift Over the shift, the patient did not make progress toward the following goals. Barriers to progression include pt . Recommendations to address these barriers include having bed alarm on. [facility] Work Phone: 01-08-2025 Evaluation + Plan note Associated Problem(s): Unresponsive episode (Resolved 01/10/2025) 54-year-old female, alcoholic, with a past medical history of throat cancer s/p surgical resection with residual tracheostomy/trach collar on 2 L nasal cannula oxygen continuous (2011), multiple sclerosis, hypertension, cervical pain radiculitis, chronic pain disorder, depression, GERD, hyperlipidemia, right shoulder impingement, insomnia, lumbosacral radiculopathy, right side mastoiditis, sacroiliitis, hypothyroidism, and a MRSA infection who was brought by the EMS to the emergency room after she had a sudden episode of unresponsiveness and slumped on her left side while in the car with her family. Blood workup in the ER showed elevated troponin, elevated bicarbonate level, and hypomagnesemia. Urinalysis findings consistent with possible UTI. Patient also complaining from right ankle pain from a sprain. Syncope-unless proven otherwise, this is most likely secondary to the underlying UTI. Patient does not have any focal neurological deficits that warrants any further brain imaging at the time being. Also there was no witnessed seizure activity. But will monitor closely on the telemetry Should patient exhibit any other further symptoms, then we may consider ordering a brain MRI. UTI-continue treating with ceftriaxone 1 g IV daily and follow-up with a urine culture final report Elevated troponin-this is most likely from the chest compressions she received for a short time. EKG sinus rhythm, no acute ischemic changes SPECT 05/30/2022 for atypical chest pain showed a small mild inducible apical defect that was felt to be a normal variant rather than true reversible ischemia. Her puller out at the time was not concerned. Likely type II NSTEMI mismatch of myocardial oxygen demand/supply secondary to underlying UTI Cardiology signed off Alcoholism- on CIWA protocol in place Right ankle pain- x-ray no acute process and apply ice packs. C/w home medications SCDs for DVT prophylaxis Patient is full code [facility] Work Phone: 01-08-2025 Nurse Note Attempted to call and give update to sister (per pt request), but the phone number appears to need updated. [facility] 01-08-2025 Consult note Associated Order (s): Inpatient consult to Cardiology Images from the original note were not included. Inpatient consult to Cardiology Consult performed by: Neeru Wolff APRN-EMBALMER APPRENTICE Consult ordered by: Jose Suero MD Cardiology Consult [facility] [place] Reason for Consult Elevated troponin History of Present Illness This is a 54 y.o. female with a history of oropharyngeal cancer, MRSA infection, hypertension, hyperlipidemia, depression, GERD, anxiety, atypical chest pain, stage II chronic kidney disease, COPD, alcoholism and chronic back pain who presented to the [facility] emergency department with complaints of unresponsive episode. She was a passenger in a car which was stopped at a gas station when she suddenly went unresponsive. Family member activated EMS and initiated CPR. Upon EMS arrival patient was reportedly responsive and breathing on her own. No seizure activity was reported. Patient describes that she has been having urinary symptoms and suprapubic discomfort for the past few days. She denies chest pain or pressure. CT of head without contrast showed no acute intracranial abnormality, there is moderate burden of supratentorial chronic small vessel ischemia. Chest x-ray showed no acute finding. Urinalysis was suspicious for urinary tract infection so a culture was obtained which is pending and was started on empiric IV antibiotics. Troponin level was trended and was found to be slightly elevated so cardiology was consulted. She is post tracheostomy therefore able to give very little medical history so majority was obtained through chart review. ASSESSMENT AND PLAN Elevated troponin -Troponin trend --79-53 -EKG shows normal sinus rhythm with no acute ischemic changes. -SPECT 05/30/2022 for atypical chest pain showed a small mild inducible apical defect that was felt to be a normal variant rather than true reversible ischemia. Her puller out at the time was not concerned. -She denies chest pain or pressure recently. -Mildly elevated, flat trending troponin with no peak with no patient complaints of chest pain is consistent with type II NSTEMI mismatch of myocardial oxygen demand/supply secondary to underlying possible urinary tract infection and not from myocardial ischemia secondary to coronary artery disease. No need for acute GA treatments. -Cardiology will sign off for now. She can follow-up as needed in the office. Subjective A review of 12 systems was complete and negative with pertinent findings noted in the HPI. 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, oral cavity, and pharynx History of throat cancer Personal history of Methicillin resistant Staphylococcus aureus infection History of methicillin resistant Staphylococcus aureus infection Personal history of other diseases of urinary system 10/26/2021 History of kidney disease Surgical History Past Surgical History: No date: HYSTERECTOMY 04/05/2024: IR INJECTION EPIDURAL STEROID; N/A Comment: L4-5 [facility] 10/26/2021: OTHER SURGICAL HISTORY Comment: Throat surgery 10/26/2021: OTHER SURGICAL HISTORY Comment: section 10/26/2021: OTHER SURGICAL HISTORY Comment: Bladder surgery 10/26/2021: OTHER SURGICAL HISTORY Comment: Hernia repair 11/09/2021: OTHER SURGICAL HISTORY Comment: Intra-articular corticosteroid injection Family History Family History Problem Relation Name Age of Onset Lung cancer Mother Heart failure Father Colon cancer Sister Diabetes Brother Heart failure Other Grandmother Social History reports that she has quit smoking. Her smoking use included cigarettes. She has never used smokeless tobacco. She reports current alcohol use. She reports that she does not use drugs. Objective: Labs: CMP: Recent Labs 01/08/25 0541 01/07/25 1751 06/27/24 0722 05/29/24 1553 04/19/24 0915 10/26/23 0427 10/25/23 0430 10/24/23 0552 10/22/23 2114 NA 137 135* 138 136 137 < > 132* 133* 132* K 3.4* 3.7 4.7 3.7 3.7 < > 4.0 4.0 3.8 CL 97* 95* 107 96* 101 < > 103 102 95* CO2 35* 33* 25 31 27 < > 18* 21 24 ANIONGAP 8* 11 11 13 13 < > 15 14 17 BUN 14 13 27* 12 17 < > 33* 30* 26* CREATININE 1.20* 1.11* 0.78 1.02 1.69* < > 2.91* 2.32* 1.52* EGFR 54* 59* 90 66 36* < > 19* 25* 41* MG 2.37 1.41* -- -- -- -- 2.02 1.51* 0.85* < > = values in this interval not displayed. Recent Labs 06/27/24 0722 05/29/24 1553 04/19/24 0915 02/02/24 1158 10/24/23 0552 ALBUMIN 3.6 4.0 3.5 3.8 2.7* ALKPHOS 95 90 97 79 59 ALT <3* <3* <3* 3* 4* AST 9 9 9 6* 19 BILITOT 0.2 0.6 0.3 0.5 0.4 LIPASE -- 18 -- -- -- CBC: Recent Labs 01/07/25 1751 06/27/24 0722 05/29/24 1553 04/19/24 0915 04/08/24 2240 WBC 5.6 5.9 8.4 5.1 8.2 HGB 14.0 11.7* 13.4 11.8* 12.2 HCT 43.6 37.6 41.2 38.8 38.2 PLT 153 231 175 216 234 MCV 92 95 90 93 90 COAG: Recent Labs 06/27/24 0722 05/29/24 1640 04/25/22 1802 INR -- 0.9 1.0 DDIMERVTE 440 -- 512* ABO: No results for input(s): ABO in the last 72752 hours. HEME/ENDO: Recent Labs 10/24/23 0552 06/03/20 1314 TSH 1.17 2.52 CARDIAC: Recent Labs 01/07/25 1901 01/07/25 1751 06/27/24 0844 06/27/24 0722 05/29/24 1553 02/02/24 1158 10/22/23 2114 04/25/22 1847 04/25/22 1802 TROPHS 79* 24* 7 7 9 < > 8 < > 3 BNP -- 80 -- 97 -- -- 30 -- 11 < > = values in this interval not displayed. No results for input(s): CHOL, LDLF, HDL, TRIG in the last 61158 hours. Intake & Output Net IO Since Admission: 50 mL [01/08/25 0842] Today's Weight: Vitals: 01/07/252102 Weight: 90.2 kg (198 lb 13.7 oz) Inpatient Medications: Current Facility-Administered Medications: acetaminophen (Tylenol) tablet 650 mg, 650 mg, oral, q4h PRN, 650 mg at 01/07/25 2257 OR acetaminophen (Tylenol) oral liquid 650 mg, 650 mg, oral, q4h PRN OR acetaminophen (Tylenol) suppository 650 mg, 650 mg, rectal, q4h PRN, Jose Suero MD amLODIPine (Norvasc) tablet 10 mg, 10 mg, oral, Daily, Jose Suero MD atorvastatin (Lipitor) tablet 20 mg, 20 mg, oral, Daily, Jose Suero MD carvedilol (Coreg) tablet 6.25 mg, 6.25 mg, oral, BID, Jose Suero MD, 6.25 mg at 01/07/25 2255 cefTRIAXone (Rocephin) 1 g in dextrose (iso) IV 50 mL, 1 g, intravenous, q24h, Jose Suero MD citalopram (CeleXA) tablet 20 mg, 20 mg, oral, Daily, Jose Suero MD flu vaccine trivalent (PF) (Fluarix/Fluzone/Flulaval) 6 months or greater injection, 0.5 mL, intramuscular, During hospitalization, Jose Suero MD folic acid (Folvite) tablet 1 mg, 1 mg, oral, Daily, Jose Suero MD ipratropium-albuteroL (Duo-Neb) 0.5-2.5 mg/3 mL nebulizer solution 3 mL, 3 mL, nebulization, 4x daily, Jose Suero MD, 3 mL at 01/08/25 0645 levothyroxine (Synthroid, Levoxyl) tablet 137 mcg, 137 mcg, oral, Daily, Jose Suero MD liothyronine (Cytomel) tablet 5 mcg, 5 mcg, oral, Daily, Jose Suero MD LORazepam (Ativan) injection 0.5 mg, 0.5 mg, intravenous, q2h PRN OR LORazepam (Ativan) injection 1 mg, 1 mg, intravenous, q2h PRN OR LORazepam (Ativan) injection 2 mg, 2 mg, intravenous, q2h PRN, Jose Suero MD magnesium hydroxide (Milk of Magnesia) 400 mg/5 mL suspension 30 mL, 30 mL, oral, Daily PRN, Jose Suero MD ondansetron ODT (Zofran-ODT) disintegrating tablet 4 mg, 4 mg, oral, q8h PRN OR ondansetron (Zofran) injection 4 mg, 4 mg, intravenous, q8h PRN, Jose Suero MD oxygen (O2) therapy, , inhalation, Continuous PRN - O2/gases, Jose Suero MD, Last Rate: 120,000 mL/hr at 01/07/25 1918, 40 percent at 01/08/25 0645 pantoprazole (ProtoNix) EC tablet 40 mg, 40 mg, oral, Daily before breakfast, Jose Suero MD pneumococcal conjugate 20-valent (PREVNAR 20) vaccine, 0.5 mL, intramuscular, During hospitalization, Jose Suero MD sertraline (Zoloft) tablet 50 mg, 50 mg, oral, Daily, Jose Suero MD VITALS Vitals: 01/08/25 0801 BP: Pulse: Resp: Temp: 36.3 C (97.3 F) SpO2: 94% PHYSICAL EXAM Physical Exam Vitals and nursing note reviewed. Constitutional: General: She is not in acute distress. Appearance: She is cachectic. She is ill-appearing. HENT: Head: Normocephalic and atraumatic. Mouth/Throat: Mouth: Mucous membranes are moist. Pharynx: Oropharynx is clear. Eyes: General: No scleral icterus. Pupils: Pupils are equal, round, and reactive to light. Cardiovascular: Rate and Rhythm: Normal rate and regular rhythm. Pulses: Normal pulses. Heart sounds: Normal heart sounds, S1 normal and S2 normal. No murmur heard. No friction rub. Pulmonary: Effort: Pulmonary effort is normal. Breath sounds: Normal breath sounds. Abdominal: General: Bowel sounds are normal. There is no distension. Palpations: Abdomen is soft. Tenderness: There is no abdominal tenderness. Musculoskeletal: General: Normal range of motion. Cervical back: Normal range of motion and neck supple. Right lower leg: No edema. Left lower leg: No edema. Skin: General: Skin is warm and dry. Capillary Refill: Capillary refill takes less than 2 seconds. Findings: No rash. Neurological: General: No focal deficit present. Mental Status: She is alert. Psychiatric: Mood and Affect: Mood normal. Behavior: Behavior normal. Cardiology will continue to follow Thank you for this interesting clinical case and allowing me to participate in the care of this patient. Please reach me out if you have any questions or if you need any clarifications regarding the patient's care. Disclaimer: This note was dictated by speech recognition, and every effort has been made to prevent any error in change room attendant, however minor errors may be present Neeru Wolff, MSN, EMBALMER APPRENTICE, ACNPC, CCRN Advanced Practice Provider, Nurse Practitioner Division of Cardiovascular Medicine [facility] Work Phone: 01-08-2025 Plan of care note The patient's goals for the shift include rest comfortably in bed The clinical goals for the shift include no falls Problem: Fall/Injury Goal: Not fall by end of shift Outcome: Progressing Goal: Be free from injury by end of the shift Outcome: Progressing Goal: Verbalize understanding of personal risk factors for fall in the hospital Outcome: Progressing Goal: Verbalize understanding of risk factor reduction measures to prevent injury from fall in the home Outcome: Progressing Goal: Use assistive devices by end of the shift Outcome: Progressing Goal: Pace activities to prevent fatigue by end of the shift Outcome: Progressing Problem: Pain - Adult Goal: Verbalizes/displays adequate comfort level or baseline comfort level Outcome: Progressing Problem: Discharge Planning Goal: Discharge to home or other facility with appropriate resources Outcome: Progressing Problem: Safety - Adult Goal: Free from fall injury Outcome: Progressing Problem: Chronic Conditions and Co-morbidities Goal: Patient's chronic conditions and co-morbidity symptoms are monitored and maintained or improved Outcome: Progressing Problem: Nutrition Goal: Nutrient intake appropriate for maintaining nutritional needs Outcome: Progressing [facility] Work Phone: 01-08-2025 Evaluation + Plan note Associated Problem(s): Unresponsive episode (Resolved 01/10/2025) 54-year-old female, alcoholic, with a past medical history of throat cancer s/p surgical resection with residual tracheostomy/trach collar on 2 L nasal cannula oxygen continuous (2011), multiple sclerosis, hypertension, cervical pain radiculitis, chronic pain disorder, depression, GERD, hyperlipidemia, right shoulder impingement, insomnia, lumbosacral radiculopathy, right side mastoiditis, sacroiliitis, hypothyroidism, and a MRSA infection who was brought by the EMS to the emergency room after she had a sudden episode of unresponsiveness and slumped on her left side while in the car with her family. Blood workup in the ER showed elevated troponin, elevated bicarbonate level, and hypomagnesemia. Urinalysis findings consistent with possible UTI. Patient also complaining from right ankle pain from a sprain. Syncope-unless proven otherwise, this is most likely secondary to the underlying UTI. Patient does not have any focal neurological deficits that warrants any further brain imaging at the time being. Also there was no witnessed seizure activity. But will monitor closely on the telemetry for the coming 24 hours. Should patient exhibit any other further symptoms, then we may consider ordering a brain MRI. UTI-continue treating with ceftriaxone 1 g IV daily and follow-up with a urine culture final report Elevated troponin-this is most likely from the chest compressions she received for a short time. But I will still order cardiology for consult. Alcoholism-I will place CIWA protocol in place Right ankle pain-I will order an x-ray and apply ice packs. Resume home medications SCDs for DVT prophylaxis Patient is full code [facility] Work Phone: 01-08-2025 Nurse Note Pt SpO2 decreased. FIO2 increased to 40% Venturi device. SpO2 97%. [facility] 01-07-2025 Nurse Note Pt suctioned for large amount of green, thick secretions. Trach care was also performed. RN is aware. [facility] Work Phone: 01-07-2025 History and physical note History Of Present Illness Vj Myers is a 54 y.o. female Who was brought by EMS to the emergency room after family found her in the car unresponsive. On presentation, vital signs grossly within normal limits. Pertinent findings on blood workup; bicarbonate 33, creatinine 1.11, magnesium 1.41, troponin 24 with a repeat of 79. Urinalysis showed leukocyte esterase and positive nitrite. CT of the head did not show any acute intracranial findings. Chest x-ray did not show any acute findings. Patient was given in the emergency room IV ceftriaxone, Ativan, and magnesium and then admitted to the medical service for further investigation and management. Upon encounter, patient is awake and alert. Resting comfortably in her bed. At bedside this family member. Patient herself does not recall at all what happened. Per the family member, she was in the car when family went out for gas station. On their way back, they found her slumped on her left side and unresponsive. They called the squad and started doing CPR. By the time the squad arrived, they noticed that she was breathing. And she was arousable. There was no witnessed seizure activity. No incontinence. Patient herself reports that she has been having urinary symptoms and suprapubic discomfort recently. No fever or chills. She does have a history of chronic sinus congestion. No sore throat or runny nose or cough. No chest pain. On the other hand, patient said that while she came into the hospital and she was trying to get out of the bed, she sprained her right ankle. It is hurting her now. Patient drinks around a pint of vodka every day. ROS 10 systems were reviewed and were negative except for those noted in the history of present illness. 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, oral cavity, and pharynx History of throat cancer Personal history of Methicillin resistant Staphylococcus aureus infection History of methicillin resistant Staphylococcus aureus infection Personal history of other diseases of urinary system 10/26/2021 History of kidney disease Pertinent medical history also documented in my below narrative Surgical History Past Surgical History: Procedure Laterality Date HYSTERECTOMY IR INJECTION EPIDURAL STEROID N/A 04/05/2024 L4-5 [facility] OTHER SURGICAL HISTORY 10/26/2021 Throat surgery OTHER SURGICAL HISTORY 10/26/2021 section OTHER SURGICAL HISTORY 10/26/2021 Bladder surgery OTHER SURGICAL HISTORY 10/26/2021 Hernia repair OTHER SURGICAL HISTORY 11/09/2021 Intra-articular corticosteroid injection Pertinent surgical history also documented in my below narrative Social History She reports that she has quit smoking. Her smoking use included cigarettes. She has never used smokeless tobacco. She reports current alcohol use. She reports that she does not use drugs. Family History Family History Problem Relation Name Age of Onset Lung cancer Mother Heart failure Father Colon cancer Sister Diabetes Brother Heart failure Other Grandmother Medications Current Outpatient Medications Medication Instructions acetaminophen (TYLENOL) 650 mg, oral, Every 4 hours PRN amLODIPine (NORVASC) 5 mg, oral, Daily atorvastatin (Lipitor) 20 mg tablet 1 tablet, oral, Daily carvedilol (COREG) 6.25 mg, oral, 2 times daily citalopram (CELEXA) 20 mg, oral, Daily diflunisal (DOLOBID) 500 mg, oral, Daily disulfiram (Antabuse) 250 mg tablet Take 2 tablets (500 mg) by mouth once daily. folic acid (FOLVITE) 1 mg, oral, Daily furosemide (LASIX) 20 mg, oral, Daily ipratropium-albuteroL (Duo-Neb) 0.5-2.5 mg/3 mL nebulizer solution 3 mL, nebulization, 4 times daily levothyroxine (SYNTHROID, LEVOXYL) 137 mcg, oral, Daily liothyronine (CYTOMEL) 5 mcg, oral, Daily LORazepam (ATIVAN) 0.5 mg, oral, 2 times daily omeprazole (PRILOSEC) 40 mg, oral, Daily oxygen (O2) gas therapy 1 each, inhalation, Every 24 hours pregabalin (LYRICA) 100 mg, oral, 3 times daily sertraline (ZOLOFT) 50 mg, oral, Daily Allergies Iodinated contrast media, Morphine, Adhesive, and Latex Last Recorded Vitals Blood pressure (!) 119/98, pulse 93, temperature 36.3 C (97.3 F), temperature source Temporal, resp. rate 20, height 1.6 m (5' 2.99), weight 90.2 kg (198 lb 13.7 oz), SpO2 98%. Physical Exam Constitutional: General: She is not in acute distress. Appearance: She is not ill-appearing. Comments: Awake alert and oriented x3 HENT: Mouth/Throat: Pharynx: Oropharynx is clear. Comments: Trach collar Eyes: Pupils: Pupils are equal, round, and reactive to light. Cardiovascular: Rate and Rhythm: Normal rate and regular rhythm. Heart sounds: Normal heart sounds. Pulmonary: Effort: No respiratory distress. Breath sounds: Normal breath sounds. No wheezing or rhonchi. Abdominal: General: Abdomen is flat. Bowel sounds are normal. There is no distension. Palpations: Abdomen is soft. Tenderness: There is no abdominal tenderness. Musculoskeletal: General: No swelling. Comments: The right ankle on inspection is not swollen. Complete range of motion. But there is tenderness along the lateral compartment specifically at the talofibular ligament Skin: General: Skin is warm. Neurological: General: No focal deficit present. Psychiatric: Mood and Affect: Mood normal. Behavior: Behavior normal. Thought Content: Thought content normal. Judgment: Judgment normal. Relevant Results Results for orders placed or performed during the hospital encounter of 01/07/25 (from the past 24 hours) POCT GLUCOSE Result Value Ref Range POCT Glucose 92 74 - 99 mg/dL CBC and Auto Differential Result Value Ref Range WBC 5.6 4.4 - 11.3 x10*3/uL nRBC 0.0 0.0 - 0.0 /100 WBCs RBC 4.75 4.00 - 5.20 x10*6/uL Hemoglobin 14.0 12.0 - 16.0 g/dL Hematocrit 43.6 36.0 - 46.0 % MCV 92 80 - 100 fL MCH 29.5 26.0 - 34.0 pg MCHC 32.1 32.0 - 36.0 g/dL RDW 13.0 11.5 - 14.5 % Platelets 153 150 - 450 x10*3/uL Neutrophils % 70.4 40.0 - 80.0 % Immature Granulocytes %, Automated 0.4 0.0 - 0.9 % Lymphocytes % 15.4 13.0 - 44.0 % Monocytes % 9.3 2.0 - 10.0 % Eosinophils % 3.4 0.0 - 6.0 % Basophils % 1.1 0.0 - 2.0 % Neutrophils Absolute 3.92 1.20 - 7.70 x10*3/uL Immature Granulocytes Absolute, Automated 0.02 0.00 - 0.70 x10*3/uL Lymphocytes Absolute 0.86 (L) 1.20 - 4.80 x10*3/uL Monocytes Absolute 0.52 0.10 - 1.00 x10*3/uL Eosinophils Absolute 0.19 0.00 - 0.70 x10*3/uL Basophils Absolute 0.06 0.00 - 0.10 x10*3/uL Basic metabolic panel Result Value Ref Range Glucose 101 (H) 74 - 99 mg/dL Sodium 135 (L) 136 - 145 mmol/L Potassium 3.7 3.5 - 5.3 mmol/L Chloride 95 (L) 98 - 107 mmol/L Bicarbonate 33 (H) 21 - 32 mmol/L Anion Gap 11 10 - 20 mmol/L Urea Nitrogen 13 6 - 23 mg/dL Creatinine 1.11 (H) 0.50 - 1.05 mg/dL eGFR 59 (L) >60 mL/min/1.73m*2 Calcium 8.1 (L) 8.6 - 10.3 mg/dL B-Type Natriuretic Peptide Result Value Ref Range BNP 80 0 - 99 pg/mL Magnesium Result Value Ref Range Magnesium 1.41 (L) 1.60 - 2.40 mg/dL Troponin I, High Sensitivity, Initial Result Value Ref Range Troponin I, High Sensitivity 24 (H) 0 - 13 ng/L Ethanol Result Value Ref Range Alcohol <10 <=10 mg/dL Sars-CoV-2 PCR Result Value Ref Range Coronavirus 2019, PCR Not Detected Not Detected Influenza A, and B PCR Result Value Ref Range Flu A Result Not Detected Not Detected Flu B Result Not Detected Not Detected Urinalysis with Reflex Culture and Microscopic Result Value Ref Range Color, Urine Yellow Light-Yellow, Yellow, Dark-Yellow Appearance, Urine Turbid (N) Clear Specific [place], Urine 1.017 1.005 - 1.035 pH, Urine 7.5 5.0, 5.5, 6.0, 6.5, 7.0, 7.5, 8.0 Protein, Urine 50 (1+) (A) NEGATIVE, 10 (TRACE), 20 (TRACE) mg/dL Glucose, Urine Normal Normal mg/dL Blood, Urine NEGATIVE NEGATIVE mg/dL Ketones, Urine NEGATIVE NEGATIVE mg/dL Bilirubin, Urine NEGATIVE NEGATIVE mg/dL Urobilinogen, Urine Normal Normal mg/dL Nitrite, Urine 2+ (A) NEGATIVE Leukocyte Esterase, Urine 500 Irma/uL (A) NEGATIVE Microscopic Only, Urine Result Value Ref Range WBC, Urine >50 (A) 1-5, NONE /HPF RBC, Urine 3-5 NONE, 1-2, 3-5 /HPF Squamous Epithelial Cells, Urine 1-9 (SPARSE) Reference range not established. /HPF Bacteria, Urine 1+ (A) NONE SEEN /HPF Mucus, Urine FEW Reference range not established. /LPF Drug Screen, Urine Result Value Ref Range Amphetamine Screen, Urine Presumptive Negative Presumptive Negative Barbiturate Screen, Urine Presumptive Negative Presumptive Negative Benzodiazepines Screen, Urine Presumptive Negative Presumptive Negative Cannabinoid Screen, Urine Presumptive Negative Presumptive Negative Cocaine Metabolite Screen, Urine Presumptive Negative Presumptive Negative Fentanyl Screen, Urine Presumptive Negative Presumptive Negative Opiate Screen, Urine Presumptive Negative Presumptive Negative Oxycodone Screen, Urine Presumptive Negative Presumptive Negative PCP Screen, Urine Presumptive Negative Presumptive Negative Methadone Screen, Urine Presumptive Negative Presumptive Negative Troponin, High Sensitivity, 1 Hour Result Value Ref Range Troponin I, High Sensitivity 79 (HH) 0 - 13 ng/L XR chest 1 view Result Date: 01/07/2025 Interpreted By: Jordan Farr, STUDY: XR CHEST 1 VIEW; 01/07/2025 6:30 pm INDICATION: Signs/Symptoms:altered loc. COMPARISON: 06/27/2024 ACCESSION NUMBER(S): [id number] ORDERING CLINICIAN: ELIAZAR NOLAN FINDINGS: No consolidation. No pleural effusion or pneumothorax. Normal heart size. No acute osseous abnormality. No acute cardiopulmonary abnormality. Signed by: Jordan Farr 01/07/2025 6:36 PM Dictation workstation: [id number] CT head wo IV contrast Result Date: 01/07/2025 Interpreted By: John Pastrana, STUDY: CT HEAD WO IV CONTRAST; 01/07/2025 6:27 pm INDICATION: Signs/Symptoms:altered loc. COMPARISON: 05/29/2024 ACCESSION NUMBER(S): [id number] ORDERING CLINICIAN: ELIAZAR NOLAN TECHNIQUE: Noncontrast axial CT images of head were obtained with coronal and sagittal reconstructed images. FINDINGS: BRAIN PARENCHYMA: Moderate periventricular and subcortical hemispheric white matter hypodensities are most compatible with chronic small vessel ischemic disease. No acute intraparenchymal hemorrhage or parenchymal evidence of acute large territory ischemic infarct. Waldron-white matter distinction is preserved. No mass-effect. VENTRICLES and EXTRA-AXIAL SPACES: No acute extra-axial or intraventricular hemorrhage. No effacement of cerebral sulci. The ventricles and sulci are age-concordant. PARANASAL SINUSES/MASTOIDS: There is near complete opacification of the left sphenoid sinus due to mucosal thickening and secretions which is new from prior study. There is also new frothy secretions in the right sphenoid sinus. Mild mucosal thickening in the right maxillary sinus. The mastoids are well aerated. CALVARIUM/ORBITS: No skull fracture. The orbits and globes are intact to the extent visualized. EXTRACRANIAL SOFT TISSUES: No discernible abnormality. No acute intracranial abnormality. New bilateral sphenoid sinusitis (left > right). Moderate burden of supratentorial chronic small vessel ischemic disease. MACRO: None. Signed by: John Pastrana 01/07/2025 6:32 PM Dictation workstation: [id number] Assessment & Plan Unresponsive episode 54-year-old female, alcoholic, with a past medical history of throat cancer s/p surgical resection with residual tracheostomy/trach collar on 2 L nasal cannula oxygen continuous (2011), multiple sclerosis, hypertension, cervical pain radiculitis, chronic pain disorder, depression, GERD, hyperlipidemia, right shoulder impingement, insomnia, lumbosacral radiculopathy, right side mastoiditis, sacroiliitis, hypothyroidism, and a MRSA infection who was brought by the EMS to the emergency room after she had a sudden episode of unresponsiveness and slumped on her left side while in the car with her family. Blood workup in the ER showed elevated troponin, elevated bicarbonate level, and hypomagnesemia. Urinalysis findings consistent with possible UTI. Patient also complaining from right ankle pain from a sprain. Syncope-unless proven otherwise, this is most likely secondary to the underlying UTI. Patient does not have any focal neurological deficits that warrants any further brain imaging at the time being. Also there was no witnessed seizure activity. But will monitor closely on the telemetry for the coming 24 hours. Should patient exhibit any other further symptoms, then we may consider ordering a brain MRI. UTI-continue treating with ceftriaxone 1 g IV daily and follow-up with a urine culture final report Elevated troponin-this is most likely from the chest compressions she received for a short time. But I will still order cardiology for consult. Alcoholism-I will place CIWA protocol in place Right ankle pain-I will order an x-ray and apply ice packs. Resume home medications SCDs for DVT prophylaxis Patient is full code (This note was generated with voice recognition software and may contain errors including spelling, grammar, syntax and misrecognition of what was dictated, that are not fully corrected) Jose Suero MD [facility] Work Phone: 01-07-2025 History and physical note History Of Present Illness Vj Myers is a 54 y.o. female Who was brought by EMS to the emergency room after family found her in the car unresponsive. On presentation, vital signs grossly within normal limits. Pertinent findings on blood workup; bicarbonate 33, creatinine 1.11, magnesium 1.41, troponin 24 with a repeat of 79. Urinalysis showed leukocyte esterase and positive nitrite. CT of the head did not show any acute intracranial findings. Chest x-ray did not show any acute findings. Patient was given in the emergency room IV ceftriaxone, Ativan, and magnesium and then admitted to the medical service for further investigation and management. Upon encounter, patient is awake and alert. Resting comfortably in her bed. At bedside this family member. Patient herself does not recall at all what happened. Per the family member, she was in the car when family went out for gas station. On their way back, they found her slumped on her left side and unresponsive. They called the squad and started doing CPR. By the time the squad arrived, they noticed that she was breathing. And she was arousable. There was no witnessed seizure activity. No incontinence. Patient herself reports that she has been having urinary symptoms and suprapubic discomfort recently. No fever or chills. She does have a history of chronic sinus congestion. No sore throat or runny nose or cough. No chest pain. On the other hand, patient said that while she came into the hospital and she was trying to get out of the bed, she sprained her right ankle. It is hurting her now. Patient drinks around a pint of vodka every day. ROS 10 systems were reviewed and were negative except for those noted in the history of present illness. 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, oral cavity, and pharynx History of throat cancer Personal history of Methicillin resistant Staphylococcus aureus infection History of methicillin resistant Staphylococcus aureus infection Personal history of other diseases of urinary system 10/26/2021 History of kidney disease Pertinent medical history also documented in my below narrative Surgical History Past Surgical History: Procedure Laterality Date HYSTERECTOMY IR INJECTION EPIDURAL STEROID N/A 04/05/2024 L4-5 [facility] OTHER SURGICAL HISTORY 10/26/2021 Throat surgery OTHER SURGICAL HISTORY 10/26/2021 section OTHER SURGICAL HISTORY 10/26/2021 Bladder surgery OTHER SURGICAL HISTORY 10/26/2021 Hernia repair OTHER SURGICAL HISTORY 11/09/2021 Intra-articular corticosteroid injection Pertinent surgical history also documented in my below narrative Social History She reports that she has quit smoking. Her smoking use included cigarettes. She has never used smokeless tobacco. She reports current alcohol use. She reports that she does not use drugs. Family History Family History Problem Relation Name Age of Onset Lung cancer Mother Heart failure Father Colon cancer Sister Diabetes Brother Heart failure Other Grandmother Medications Current Outpatient Medications Medication Instructions acetaminophen (TYLENOL) 650 mg, oral, Every 4 hours PRN amLODIPine (NORVASC) 5 mg, oral, Daily atorvastatin (Lipitor) 20 mg tablet 1 tablet, oral, Daily carvedilol (COREG) 6.25 mg, oral, 2 times daily citalopram (CELEXA) 20 mg, oral, Daily diflunisal (DOLOBID) 500 mg, oral, Daily disulfiram (Antabuse) 250 mg tablet Take 2 tablets (500 mg) by mouth once daily. folic acid (FOLVITE) 1 mg, oral, Daily furosemide (LASIX) 20 mg, oral, Daily ipratropium-albuteroL (Duo-Neb) 0.5-2.5 mg/3 mL nebulizer solution 3 mL, nebulization, 4 times daily levothyroxine (SYNTHROID, LEVOXYL) 137 mcg, oral, Daily liothyronine (CYTOMEL) 5 mcg, oral, Daily LORazepam (ATIVAN) 0.5 mg, oral, 2 times daily omeprazole (PRILOSEC) 40 mg, oral, Daily oxygen (O2) gas therapy 1 each, inhalation, Every 24 hours pregabalin (LYRICA) 100 mg, oral, 3 times daily sertraline (ZOLOFT) 50 mg, oral, Daily Allergies Iodinated contrast media, Morphine, Adhesive, and Latex Last Recorded Vitals Blood pressure (!) 119/98, pulse 93, temperature 36.3 C (97.3 F), temperature source Temporal, resp. rate 20, height 1.6 m (5' 2.99), weight 90.2 kg (198 lb 13.7 oz), SpO2 98%. Physical Exam Constitutional: General: She is not in acute distress. Appearance: She is not ill-appearing. Comments: Awake alert and oriented x3 HENT: Mouth/Throat: Pharynx: Oropharynx is clear. Comments: Trach collar Eyes: Pupils: Pupils are equal, round, and reactive to light. Cardiovascular: Rate and Rhythm: Normal rate and regular rhythm. Heart sounds: Normal heart sounds. Pulmonary: Effort: No respiratory distress. Breath sounds: Normal breath sounds. No wheezing or rhonchi. Abdominal: General: Abdomen is flat. Bowel sounds are normal. There is no distension. Palpations: Abdomen is soft. Tenderness: There is no abdominal tenderness. Musculoskeletal: General: No swelling. Comments: The right ankle on inspection is not swollen. Complete range of motion. But there is tenderness along the lateral compartment specifically at the talofibular ligament Skin: General: Skin is warm. Neurological: General: No focal deficit present. Psychiatric: Mood and Affect: Mood normal. Behavior: Behavior normal. Thought Content: Thought content normal. Judgment: Judgment normal. Relevant Results Results for orders placed or performed during the hospital encounter of 01/07/25 (from the past 24 hours) POCT GLUCOSE Result Value Ref Range POCT Glucose 92 74 - 99 mg/dL CBC and Auto Differential Result Value Ref Range WBC 5.6 4.4 - 11.3 x10*3/uL nRBC 0.0 0.0 - 0.0 /100 WBCs RBC 4.75 4.00 - 5.20 x10*6/uL Hemoglobin 14.0 12.0 - 16.0 g/dL Hematocrit 43.6 36.0 - 46.0 % MCV 92 80 - 100 fL MCH 29.5 26.0 - 34.0 pg MCHC 32.1 32.0 - 36.0 g/dL RDW 13.0 11.5 - 14.5 % Platelets 153 150 - 450 x10*3/uL Neutrophils % 70.4 40.0 - 80.0 % Immature Granulocytes %, Automated 0.4 0.0 - 0.9 % Lymphocytes % 15.4 13.0 - 44.0 % Monocytes % 9.3 2.0 - 10.0 % Eosinophils % 3.4 0.0 - 6.0 % Basophils % 1.1 0.0 - 2.0 % Neutrophils Absolute 3.92 1.20 - 7.70 x10*3/uL Immature Granulocytes Absolute, Automated 0.02 0.00 - 0.70 x10*3/uL Lymphocytes Absolute 0.86 (L) 1.20 - 4.80 x10*3/uL Monocytes Absolute 0.52 0.10 - 1.00 x10*3/uL Eosinophils Absolute 0.19 0.00 - 0.70 x10*3/uL Basophils Absolute 0.06 0.00 - 0.10 x10*3/uL Basic metabolic panel Result Value Ref Range Glucose 101 (H) 74 - 99 mg/dL Sodium 135 (L) 136 - 145 mmol/L Potassium 3.7 3.5 - 5.3 mmol/L Chloride 95 (L) 98 - 107 mmol/L Bicarbonate 33 (H) 21 - 32 mmol/L Anion Gap 11 10 - 20 mmol/L Urea Nitrogen 13 6 - 23 mg/dL Creatinine 1.11 (H) 0.50 - 1.05 mg/dL eGFR 59 (L) >60 mL/min/1.73m*2 Calcium 8.1 (L) 8.6 - 10.3 mg/dL B-Type Natriuretic Peptide Result Value Ref Range BNP 80 0 - 99 pg/mL Magnesium Result Value Ref Range Magnesium 1.41 (L) 1.60 - 2.40 mg/dL Troponin I, High Sensitivity, Initial Result Value Ref Range Troponin I, High Sensitivity 24 (H) 0 - 13 ng/L Ethanol Result Value Ref Range Alcohol <10 <=10 mg/dL Sars-CoV-2 PCR Result Value Ref Range Coronavirus 2019, PCR Not Detected Not Detected Influenza A, and B PCR Result Value Ref Range Flu A Result Not Detected Not Detected Flu B Result Not Detected Not Detected Urinalysis with Reflex Culture and Microscopic Result Value Ref Range Color, Urine Yellow Light-Yellow, Yellow, Dark-Yellow Appearance, Urine Turbid (N) Clear Specific [place], Urine 1.017 1.005 - 1.035 pH, Urine 7.5 5.0, 5.5, 6.0, 6.5, 7.0, 7.5, 8.0 Protein, Urine 50 (1+) (A) NEGATIVE, 10 (TRACE), 20 (TRACE) mg/dL Glucose, Urine Normal Normal mg/dL Blood, Urine NEGATIVE NEGATIVE mg/dL Ketones, Urine NEGATIVE NEGATIVE mg/dL Bilirubin, Urine NEGATIVE NEGATIVE mg/dL Urobilinogen, Urine Normal Normal mg/dL Nitrite, Urine 2+ (A) NEGATIVE Leukocyte Esterase, Urine 500 [place]ma/uL (A) NEGATIVE Microscopic Only, Urine Result Value Ref Range WBC, Urine >50 (A) 1-5, NONE /HPF RBC, Urine 3-5 NONE, 1-2, 3-5 /HPF Squamous Epithelial Cells, Urine 1-9 (SPARSE) Reference range not established. /HPF Bacteria, Urine 1+ (A) NONE SEEN /HPF Mucus, Urine FEW Reference range not established. /LPF Drug Screen, Urine Result Value Ref Range Amphetamine Screen, Urine Presumptive Negative Presumptive Negative Barbiturate Screen, Urine Presumptive Negative Presumptive Negative Benzodiazepines Screen, Urine Presumptive Negative Presumptive Negative Cannabinoid Screen, Urine Presumptive Negative Presumptive Negative Cocaine Metabolite Screen, Urine Presumptive Negative Presumptive Negative Fentanyl Screen, Urine Presumptive Negative Presumptive Negative Opiate Screen, Urine Presumptive Negative Presumptive Negative Oxycodone Screen, Urine Presumptive Negative Presumptive Negative PCP Screen, Urine Presumptive Negative Presumptive Negative Methadone Screen, Urine Presumptive Negative Presumptive Negative Troponin, High Sensitivity, 1 Hour Result Value Ref Range Troponin I, High Sensitivity 79 (HH) 0 - 13 ng/L XR chest 1 view Result Date: 01/07/2025 Interpreted By: Jordan Farr, STUDY: XR CHEST 1 VIEW; 01/07/2025 6:30 pm INDICATION: Signs/Symptoms:altered loc. COMPARISON: 06/27/2024 ACCESSION NUMBER(S): [id number] ORDERING CLINICIAN: ELIAZAR NOLAN FINDINGS: No consolidation. No pleural effusion or pneumothorax. Normal heart size. No acute osseous abnormality. No acute cardiopulmonary abnormality. Signed by: Jordan Farr 01/07/2025 6:36 PM Dictation workstation: [id number] CT head wo IV contrast Result Date: 01/07/2025 Interpreted By: John Pastrana, STUDY: CT HEAD WO IV CONTRAST; 01/07/2025 6:27 pm INDICATION: Signs/Symptoms:altered loc. COMPARISON: 05/29/2024 ACCESSION NUMBER(S): [id number] ORDERING CLINICIAN: ELIAZAR NOLAN TECHNIQUE: Noncontrast axial CT images of head were obtained with coronal and sagittal reconstructed images. FINDINGS: BRAIN PARENCHYMA: Moderate periventricular and subcortical hemispheric white matter hypodensities are most compatible with chronic small vessel ischemic disease. No acute intraparenchymal hemorrhage or parenchymal evidence of acute large territory ischemic infarct. Waldron-white matter distinction is preserved. No mass-effect. VENTRICLES and EXTRA-AXIAL SPACES: No acute extra-axial or intraventricular hemorrhage. No effacement of cerebral sulci. The ventricles and sulci are age-concordant. PARANASAL SINUSES/MASTOIDS: There is near complete opacification of the left sphenoid sinus due to mucosal thickening and secretions which is new from prior study. There is also new frothy secretions in the right sphenoid sinus. Mild mucosal thickening in the right maxillary sinus. The mastoids are well aerated. CALVARIUM/ORBITS: No skull fracture. The orbits and globes are intact to the extent visualized. EXTRACRANIAL SOFT TISSUES: No discernible abnormality. No acute intracranial abnormality. New bilateral sphenoid sinusitis (left > right). Moderate burden of supratentorial chronic small vessel ischemic disease. MACRO: None. Signed by: Johnramonita Pastrana 01/07/2025 6:32 PM Dictation workstation: [id number] Assessment & Plan Unresponsive episode 54-year-old female, alcoholic, with a past medical history of throat cancer s/p surgical resection with residual tracheostomy/trach collar on 2 L nasal cannula oxygen continuous (2011), multiple sclerosis, hypertension, cervical pain radiculitis, chronic pain disorder, depression, GERD, hyperlipidemia, right shoulder impingement, insomnia, lumbosacral radiculopathy, right side mastoiditis, sacroiliitis, hypothyroidism, and a MRSA infection who was brought by the EMS to the emergency room after she had a sudden episode of unresponsiveness and slumped on her left side while in the car with her family. Blood workup in the ER showed elevated troponin, elevated bicarbonate level, and hypomagnesemia. Urinalysis findings consistent with possible UTI. Patient also complaining from right ankle pain from a sprain. Syncope-unless proven otherwise, this is most likely secondary to the underlying UTI. Patient does not have any focal neurological deficits that warrants any further brain imaging at the time being. Also there was no witnessed seizure activity. But will monitor closely on the telemetry for the coming 24 hours. Should patient exhibit any other further symptoms, then we may consider ordering a brain MRI. UTI-continue treating with ceftriaxone 1 g IV daily and follow-up with a urine culture final report Elevated troponin-this is most likely from the chest compressions she received for a short time. But I will still order cardiology for consult. Alcoholism-I will place CIWA protocol in place Right ankle pain-I will order an x-ray and apply ice packs. Resume home medications SCDs for DVT prophylaxis Patient is full code (This note was generated with voice recognition software and may contain errors including spelling, grammar, syntax and misrecognition of what was dictated, that are not fully corrected) Jose Suero MD documented in this encounter [facility] Work Phone: 01-07-2025 Emergency department Note Medical Decision Making The patient's repeat troponin was more elevated and because of this I did contact Dr. Burkett the chief estimator on-call for [employer] at 7:46 PM. The patient currently does not have any chest pain and therefore he does not feel concerned about that and he felt that was most likely due to demand ischemia and could have been because of the event that led to the patient coming to the ED in the first place. He states that he would see the patient tomorrow on the floor. I then had a discussion with Dr. Cameron on-call for admission of the patient concerning my discussion with Dr. Burkett. Amount and/or Complexity of Data Reviewed ECG/medicine tests: independent interpretation performed. Details: EKG was interpreted by myself at 1949 reveals normal sinus rhythm with no acute ST or T wave changes with possible left atrial enlargement and Q waves in the precordial leads V1 V2. The heart rate is 85 bpm. The PA interval is 146 ms. The QRS duration 76 ms. The QTc is 478 ms. Orange is 22 degrees. Emergency Medicine Transition of Care Note. I received Vj Myers in signout from Dr. Nolan. Please see the previous ED provider note for all HPI, PE and MDM up to the time of signout at 1900. This is in addition to the primary record. In brief Vj Myers is an 54 y.o. female presenting for Chief Complaint Patient presents with [facility]izures [facility] after witnessed possible seizure like activity, while in car at gas station. Pt has no prior history of seizures, is alert and oriented now At the time of signout we were awaiting: Awaiting repeat troponin with plan for admission of the patient to the hospital. Final diagnoses: [R40.4] Unresponsive episode [N30.90] Cystitis Procedure Procedures DO Jerrod Segal DO 01/08/25 0246 HPI Chief Complaint Patient presents with Seizures [facility] after witnessed possible seizure like activity, while in car at gas station. Pt has no prior history of seizures, is alert and oriented now Patient presents to the emergency department after a witnessed unresponsive episode. Apparently the patient was riding in a car that was at a gas station when she went unresponsive. Family did CPR. Paramedics arrived and the patient was breathing on her own. She was noted to be confused and roused a bit more in route. Blood sugar was unremarkable. Patient states that she was feeling well earlier today. 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, oral cavity, and pharynx History of throat cancer Personal history of Methicillin resistant Staphylococcus aureus infection History of methicillin resistant Staphylococcus aureus infection Personal history of other diseases of urinary system 10/26/2021 History of kidney disease Past Surgical History: Procedure Laterality Date HYSTERECTOMY IR INJECTION EPIDURAL STEROID N/A 04/05/2024 L4-5 [facility] OTHER SURGICAL HISTORY 10/26/2021 Throat surgery OTHER SURGICAL HISTORY 10/26/2021 section OTHER SURGICAL HISTORY 10/26/2021 Bladder surgery OTHER SURGICAL HISTORY 10/26/2021 Hernia repair OTHER SURGICAL HISTORY 11/09/2021 Intra-articular corticosteroid injection Family History Problem Relation Name Age of Onset Lung cancer Mother Heart failure Father Colon cancer Sister Diabetes Brother Heart failure Other Grandmother Social History Tobacco Use Smoking status: Former Types: Cigarettes Smokeless tobacco: Never Vaping Use Vaping status: Never Used Substance Use Topics Alcohol use: Yes Comment: Son states patient drinks 1 to 4 fifths of [place] weekly Drug use: Never Physical Exam ED Triage Vitals Temperature Heart Rate Respirations BP 01/07/25 1726 01/07/25 1724 01/07/25 1724 01/07/25 1724 36.2 C (97.2 F) 96 18 (!) 191/118 Pulse Ox Temp Source Heart Rate Source Patient Position 01/07/25 1724 01/07/25 1726 -- -- (!) 90 % Temporal BP Location FiO2 (%) -- -- Physical Exam Vitals and nursing note reviewed. Constitutional: General: She is not in acute distress. Appearance: Normal appearance. She is normal weight. She is not ill-appearing, toxic-appearing or diaphoretic. Comments: Patient is awake and alert. She is able to interact appropriately. She is not incontinent of urine or stool HENT: Head: Normocephalic and atraumatic. Nose: Nose normal. No rhinorrhea. Mouth/Throat: Comments: Intraoral examination reveals no evidence of trauma such as tongue biting. Neck: Comments: Trachea is midline. Prior tracheotomy site is unremarkable Cardiovascular: Rate and Rhythm: Normal rate and regular rhythm. Heart sounds: No murmur heard. Pulmonary: Effort: Pulmonary effort is normal. Breath sounds: Normal breath sounds. No wheezing. Abdominal: General: Abdomen is flat. Bowel sounds are normal. There is no distension. Palpations: Abdomen is soft. Tenderness: There is no abdominal tenderness. Musculoskeletal: General: Normal range of motion. Cervical back: Normal range of motion. Skin: General: Skin is warm and dry. Findings: No rash. Neurological: General: No focal deficit present. Mental Status: She is alert and oriented to person, place, and time. Mental status is at baseline. Cranial Nerves: No cranial nerve deficit. Sensory: No sensory deficit. Motor: No weakness. Coordination: Coordination normal. Psychiatric: Mood and Affect: Mood normal. Behavior: Behavior normal. Thought Content: Thought content normal. Judgment: Judgment normal. ED Course & MDM Diagnoses as of 01/07/251851 Unresponsive episode Cystitis No data recorded Medical Decision Making Twelve-lead EKG was interpreted by myself and this was noted to contribute directly to patient care. Study reveals a normal sinus rhythm at 95 bpm, normal axis, normal R wave progression, no acute ischemic changes. Patient was given Rocephin based on her urinalysis findings. Imaging studies show no acute findings. Initial troponin is elevated. Repeat troponin is pending. Patient was endorsed to the oncoming provider. Please see their note for final disposition details Procedure Procedures Eliazar Nolan DO 01/07/251827 Eliazar Nolan DO 01/07/251852 documented in this encounter [facility] Work Phone: 01-07-2025 Physician Emergency department Note Medical Decision Making The patient's repeat troponin was more elevated and because of this I did contact Dr. Burkett the chief estimator on-call for [facility] at 7:46 PM. The patient currently does not have any chest pain and therefore he does not feel concerned about that and he felt that was most likely due to demand ischemia and could have been because of the event that led to the patient coming to the ED in the first place. He states that he would see the patient tomorrow on the floor. I then had a discussion with Dr. Cameron on-call for admission of the patient concerning my discussion with Dr. Burkett. Amount and/or Complexity of Data Reviewed ECG/medicine tests: independent interpretation performed. Details: EKG was interpreted by myself at 1949 reveals normal sinus rhythm with no acute ST or T wave changes with possible left atrial enlargement and Q waves in the precordial leads V1 V2. The heart rate is 85 bpm. The PA interval is 146 ms. The QRS duration 76 ms. The QTc is 478 ms. Orange is 22 degrees. Emergency Medicine Transition of Care Note. I received Vj Myers in signout from Dr. Nolan. Please see the previous ED provider note for all HPI, PE and MDM up to the time of signout at 1900. This is in addition to the primary record. In brief Vj Myers is an 54 y.o. female presenting for Chief Complaint Patient presents with Seizures Pt [facility] after witnessed possible seizure like activity, while in car at gas station. Pt has no prior history of seizures, is alert and oriented now At the time of signout we were awaiting: Awaiting repeat troponin with plan for admission of the patient to the hospital. Final diagnoses: [R40.4] Unresponsive episode [N30.90] Cystitis Procedure Procedures DO Jerrod Segal DO 01/08/25 0246 [facility] Work Phone: 01-07-2025 Physician Emergency department Note HPI Chief Complaint Patient presents with Seizures Pt [facility] after witnessed possible seizure like activity, while in car at gas station. Pt has no prior history of seizures, is alert and oriented now Patient presents to the emergency department after a witnessed unresponsive episode. Apparently the patient was riding in a car that was at a gas station when she went unresponsive. Family did CPR. Paramedics arrived and the patient was breathing on her own. She was noted to be confused and roused a bit more in route. Blood sugar was unremarkable. Patient states that she was feeling well earlier today. 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, oral cavity, and pharynx History of throat cancer Personal history of Methicillin resistant Staphylococcus aureus infection History of methicillin resistant Staphylococcus aureus infection Personal history of other diseases of urinary system 10/26/2021 History of kidney disease Past Surgical History: Procedure Laterality Date HYSTERECTOMY IR INJECTION EPIDURAL STEROID N/A 04/05/2024 L4-5 [facility] OTHER SURGICAL HISTORY 10/26/2021 Throat surgery OTHER SURGICAL HISTORY 10/26/2021 section OTHER SURGICAL HISTORY 10/26/2021 Bladder surgery OTHER SURGICAL HISTORY 10/26/2021 Hernia repair OTHER SURGICAL HISTORY 11/09/2021 Intra-articular corticosteroid injection Family History Problem Relation Name Age of Onset Lung cancer Mother Heart failure Father Colon cancer Sister Diabetes Brother Heart failure Other Grandmother Social History Tobacco Use Smoking status: Former Types: Cigarettes Smokeless tobacco: Never Vaping Use Vaping status: Never Used Substance Use Topics Alcohol use: Yes Comment: Son states patient drinks 1 to 4 fifths of whiskey weekly Drug use: Never Physical Exam ED Triage Vitals Temperature Heart Rate Respirations BP 01/07/25 1726 01/07/25 1724 01/07/25 1724 01/07/25 1724 36.2 C (97.2 F) 96 18 (!) 191/118 Pulse Ox Temp Source Heart Rate Source Patient Position 01/07/25 1724 01/07/25 1726 -- -- (!) 90 % Temporal BP Location FiO2 (%) -- -- Physical Exam Vitals and nursing note reviewed. Constitutional: General: She is not in acute distress. Appearance: Normal appearance. She is normal weight. She is not ill-appearing, toxic-appearing or diaphoretic. Comments: Patient is awake and alert. She is able to interact appropriately. She is not incontinent of urine or stool HENT: Head: Normocephalic and atraumatic. Nose: Nose normal. No rhinorrhea. Mouth/Throat: Comments: Intraoral examination reveals no evidence of trauma such as tongue biting. Neck: Comments: Trachea is midline. Prior tracheotomy site is unremarkable Cardiovascular: Rate and Rhythm: Normal rate and regular rhythm. Heart sounds: No murmur heard. Pulmonary: Effort: Pulmonary effort is normal. Breath sounds: Normal breath sounds. No wheezing. Abdominal: General: Abdomen is flat. Bowel sounds are normal. There is no distension. Palpations: Abdomen is soft. Tenderness: There is no abdominal tenderness. Musculoskeletal: General: Normal range of motion. Cervical back: Normal range of motion. Skin: General: Skin is warm and dry. Findings: No rash. Neurological: General: No focal deficit present. Mental Status: She is alert and oriented to person, place, and time. Mental status is at baseline. Cranial Nerves: No cranial nerve deficit. Sensory: No sensory deficit. Motor: No weakness. Coordination: Coordination normal. Psychiatric: Mood and Affect: Mood normal. Behavior: Behavior normal. Thought Content: Thought content normal. Judgment: Judgment normal. ED Course & MDM Diagnoses as of 01/07/251851 Unresponsive episode Cystitis No data recorded Medical Decision Making Twelve-lead EKG was interpreted by myself and this was noted to contribute directly to patient care. Study reveals a normal sinus rhythm at 95 bpm, normal axis, normal R wave progression, no acute ischemic changes. Patient was given Rocephin based on her urinalysis findings. Imaging studies show no acute findings. Initial troponin is elevated. Repeat troponin is pending. Patient was endorsed to the oncoming provider. Please see their note for final disposition details Procedure Procedures Eliazar Nolan DO 01/07/251827 Eliazar Nolan DO 01/07/251852 [facility] Work Phone: 05-29-2024 Hospital Discharge instructions Jeronimo Dolan MD - 05/29/2024 5:22 PM EDT NO ALCOHOL CONSUMPTION TYLENOL OR ADVIL FOR ANY PAIN ICE FOR SWELLING ATIVAN ONE TAB TWICE DAILY FOR TREMORS The following attachments cannot be sent through Care Everywhere.Fatigue (Surinamese)Generalized Weakness Discharge Instructions (Surinamese)Minor Contusion ED (Surinamese)Preventing falls in adults (Surinamese)Tremor (Surinamese)documented in this encounter [facility] Work Phone: 05-29-2024 Emergency department Note Chief Complaint: FALL Is a 54-year-old female who admits to being an alcoholic and has not had a drink for 3 days apparently had tremors and felt weak and fell in the driveway scraping her knee apparently she bumped her head and neck and presents now for evaluation she had a very similar episode here in March was seen for the exact same thing with a fall with tremors and weakness also. She has not followed up with any primary care physician since then and presents now for similar symptoms once again. She denies any nausea vomiting no melanotic stools she apparently has abrasion on her left knee also is a visual changes any focal weakness no speech difficulties. Review of Systems Constitutional: Positive for fatigue. Negative for chills and fever. HENT: Negative. Eyes: Negative for photophobia and visual disturbance. Respiratory: Negative for cough, chest tightness and shortness of breath. Cardiovascular: Negative for chest pain, palpitations and leg swelling. Gastrointestinal: Negative for abdominal pain, nausea and vomiting. Genitourinary: Negative for flank pain and frequency. Musculoskeletal: Positive for arthralgias, myalgias and neck pain. Skin: Positive for wound. Neurological: Positive for weakness. Negative for dizziness and headaches. Hematological: Negative. Psychiatric/Behavioral: Negative. All other systems reviewed and are negative. Physical Exam Constitutional: General: She is not in acute distress. Appearance: She is not toxic-appearing. Comments: Is awake cooperative she has had a previous trach and asked to plug her trach to speak she complains of some tremors and generalized weakness denies any fever chills she is not toxic in appearance HENT: Head: Normocephalic and atraumatic. Right Ear: Tympanic membrane normal. Left Ear: Tympanic membrane normal. Nose: Nose normal. Comments: No epistaxis or septal hematoma there is no facial trauma Mouth/Throat: Mouth: Mucous membranes are moist. Eyes: Extraocular Movements: Extraocular movements intact. Conjunctiva/sclera: Conjunctivae normal. Pupils: Pupils are equal, round, and reactive to light. Neck: Comments: There is no step-off there is some minimal subjective tenderness mostly in the musculature at this time Cardiovascular: Rate and Rhythm: Normal rate. Pulses: Normal pulses. Heart sounds: No murmur heard. Pulmonary: Effort: Pulmonary effort is normal. No respiratory distress. Breath sounds: Normal breath sounds. Abdominal: General: Bowel sounds are normal. There is no distension. Palpations: Abdomen is soft. Tenderness: There is no abdominal tenderness. There is no right CVA tenderness or left CVA tenderness. Hernia: No hernia is present. Musculoskeletal: General: Signs of injury present. No swelling or deformity. Normal range of motion. Cervical back: Normal range of motion and neck supple. Right lower leg: No edema. Left lower leg: No edema. Comments: Patient with abrasion left knee but otherwise full range of motion without any instability at this time pelvic instability noted no upper extremity injury. Skin: General: Skin is warm and dry. Capillary Refill: Capillary refill takes less than 2 seconds. Findings: No erythema or rash. Comments: With an abrasion to the left knee Neurological: General: No focal deficit present. Mental Status: She is alert and oriented to person, place, and time. Sensory: No sensory deficit. Motor: No weakness. Comments: For the fine intermittent tremor but otherwise no focal neurologic deficits she has full range of motion of all extremities Psychiatric: Mood and Affect: Mood normal. Behavior: Behavior normal. Labs Reviewed CBC WITH AUTO DIFFERENTIAL - Abnormal Result Value WBC 8.4 nRBC 0.0 RBC 4.58 Hemoglobin 13.4 Hematocrit 41.2 MCV 90 MCH 29.3 MCHC 32.5 RDW 14.2 Platelets 175 Neutrophils % 87.3 Immature Granulocytes %, Automated 0.4 Lymphocytes % 6.9 Monocytes % 3.5 Eosinophils % 1.3 Basophils % 0.6 Neutrophils Absolute 7.33 Immature Granulocytes Absolute, Automated 0.03 Lymphocytes Absolute 0.58 (*) Monocytes Absolute 0.29 Eosinophils Absolute 0.11 Basophils Absolute 0.05 BASIC METABOLIC PANEL - Abnormal Glucose 99 Sodium 136 Potassium 3.7 Chloride 96 (*) Bicarbonate 31 Anion Gap 13 Urea Nitrogen 12 Creatinine 1.02 eGFR 66 Calcium 9.2 HEPATIC FUNCTION PANEL - Abnormal Albumin 4.0 Bilirubin, Total 0.6 Bilirubin, Direct 0.1 Alkaline Phosphatase 90 ALT <3 (*) AST 9 Total Protein 7.2 APTT - Abnormal aPTT 26 (*) Narrative: The APTT is no longer used for monitoring Unfractionated Heparin Therapy. For monitoring Heparin Therapy, use the Heparin Assay. URINALYSIS WITH REFLEX CULTURE AND MICROSCOPIC - Abnormal Color, Urine Colorless (*) Appearance, Urine Clear Specific [place], Urine 1.008 pH, Urine 6.0 Protein, Urine NEGATIVE Glucose, Urine Normal Blood, Urine NEGATIVE Ketones, Urine NEGATIVE Bilirubin, Urine NEGATIVE Urobilinogen, Urine Normal Nitrite, Urine NEGATIVE Leukocyte Esterase, Urine 25 Irma/ L (*) MICROSCOPIC ONLY, URINE - Abnormal WBC, Urine 1-5 WBC Clumps, Urine RARE RBC, Urine 1-2 Squamous Epithelial Cells, Urine 1-9 (SPARSE) Bacteria, Urine 1+ (*) ALCOHOL - Normal Alcohol <10 LIPASE - Normal Lipase 18 Narrative: Venipuncture immediately after or during the administration of Metamizole may lead to falsely low results. Testing should be performed immediately prior to Metamizole dosing. LACTATE - Normal Lactate 0.8 Narrative: Venipuncture immediately after or during the administration of Metamizole may lead to falsely low results. Testing should be performed immediately prior to Metamizole dosing. TROPONIN I, HIGH SENSITIVITY - Normal Troponin I, High Sensitivity 9 Narrative: Less than 99th percentile of normal range cutoff- Female and children under 18 years old <14 ng/L; Male <21 ng/L: Negative Repeat testing should be performed if clinically indicated. Female and children under 18 years old 14-50 ng/L; Male 21-50 ng/L: Consistent with possible cardiac damage and possible increased clinical risk. Serial measurements may help to assess extent of myocardial damage. >50 ng/L: Consistent with cardiac damage, increased clinical risk and myocardial infarction. Serial measurements may help assess extent of myocardial damage. NOTE: Children less than 1 year old may have higher baseline troponin levels and results should be interpreted in conjunction with the overall clinical context. NOTE: Troponin I testing is performed using a different testing methodology at [facility] than at other [facility]. Direct result comparisons should only be made within the same method. PROTIME-INR - Normal Protime 10.5 INR 0.9 URINE CULTURE URINALYSIS WITH REFLEX CULTURE AND MICROSCOPIC Narrative: The following orders were created for panel order Urinalysis with Reflex Culture and Microscopic. Procedure Abnormality Status --------- ------ Urinalysis with Reflex C...[[id number]] Abnormal Final result Extra Urine Waldron Tube[[id number]] In process Please view results for these tests on the individual orders. DRUG SCREEN,URINE EXTRA URINE WALDRON TUBE CT cervical spine wo IV contrast Final Result 1. No acute fracture or spondylolisthesis. 2. No significant interval change of chronic degenerative changes as described in the body of the report. Signed by: Juvenal Huertas 05/29/2024 4:28 PM Dictation workstation: [id number] CT head wo IV contrast Final Result No significant interval change from the prior study. No CT evidence for acute intracranial pathology. Signed by: Juvenal Huertas 05/29/2024 4:11 PM Dictation workstation: [id number] XR chest 1 view Final Result No acute process. Signed by Terrence Levi MD Procedures Medical Decision Making Swiss diagnoses include electrolyte abnormality tremor alcohol withdraw cervical strain cervical fracture head contusion head injury. Normal saline bolus of 1 L was ordered as well as Toradol for pain CT scan of the head and neck chest x-ray and routine labs at this time. Patient's INR was normal urinalysis, lipase liver functions metabolic panel CBC were all normal. CT scan of the head was negative CT scan of the cervical spine showed no acute fractures and chest x-ray was negative. Patient received Ativan half milligram IV with complete resolution of her tremors which probably was related to some alcohol consumption. She received thiamine 100 mg IM also she will be given Ativan half milligram twice a day as needed tremors she. A long conversation was held with her son concerning his her alcohol issues he states that she has been in and out of detox programs and signs are soft out she does not want to consider admission for any alcohol detox at this point in time will be discharged home Amount and/or Complexity of Data Reviewed ECG/medicine tests: independent interpretation performed. Details: Twelve-lead EKG showed sinus rhythm at 83/min there is no acute ST segment elevation depressions or arrhythmias as interpreted by myself the emergency physician Diagnoses as of 05/29/24 1725 Generalized weakness Falls frequently Tremors of nervous system Contusion of left knee, initial encounter Strain of neck muscle, initial encounter Alcohol abuse Jeronimo Dolan MD 05/29/24 1725 documented in this encounter [facility] Work Phone: 05-29-2024 Physician Emergency department Note Chief Complaint: FALL Is a 54-year-old female who admits to being an alcoholic and has not had a drink for 3 days apparently had tremors and felt weak and fell in the driveway scraping her knee apparently she bumped her head and neck and presents now for evaluation she had a very similar episode here in March was seen for the exact same thing with a fall with tremors and weakness also. She has not followed up with any primary care physician since then and presents now for similar symptoms once again. She denies any nausea vomiting no melanotic stools she apparently has abrasion on her left knee also is a visual changes any focal weakness no speech difficulties. Review of Systems Constitutional: Positive for fatigue. Negative for chills and fever. HENT: Negative. Eyes: Negative for photophobia and visual disturbance. Respiratory: Negative for cough, chest tightness and shortness of breath. Cardiovascular: Negative for chest pain, palpitations and leg swelling. Gastrointestinal: Negative for abdominal pain, nausea and vomiting. Genitourinary: Negative for flank pain and frequency. Musculoskeletal: Positive for arthralgias, myalgias and neck pain. Skin: Positive for wound. Neurological: Positive for weakness. Negative for dizziness and headaches. Hematological: Negative. Psychiatric/Behavioral: Negative. All other systems reviewed and are negative. Physical Exam Constitutional: General: She is not in acute distress. Appearance: She is not toxic-appearing. Comments: Is awake cooperative she has had a previous trach and asked to plug her trach to speak she complains of some tremors and generalized weakness denies any fever chills she is not toxic in appearance HENT: Head: Normocephalic and atraumatic. Right Ear: Tympanic membrane normal. Left Ear: Tympanic membrane normal. Nose: Nose normal. Comments: No epistaxis or septal hematoma there is no facial trauma Mouth/Throat: Mouth: Mucous membranes are moist. Eyes: Extraocular Movements: Extraocular movements intact. Conjunctiva/sclera: Conjunctivae normal. Pupils: Pupils are equal, round, and reactive to light. Neck: Comments: There is no step-off there is some minimal subjective tenderness mostly in the musculature at this time Cardiovascular: Rate and Rhythm: Normal rate. Pulses: Normal pulses. Heart sounds: No murmur heard. Pulmonary: Effort: Pulmonary effort is normal. No respiratory distress. Breath sounds: Normal breath sounds. Abdominal: General: Bowel sounds are normal. There is no distension. Palpations: Abdomen is soft. Tenderness: There is no abdominal tenderness. There is no right CVA tenderness or left CVA tenderness. Hernia: No hernia is present. Musculoskeletal: General: Signs of injury present. No swelling or deformity. Normal range of motion. Cervical back: Normal range of motion and neck supple. Right lower leg: No edema. Left lower leg: No edema. Comments: Patient with abrasion left knee but otherwise full range of motion without any instability at this time pelvic instability noted no upper extremity injury. Skin: General: Skin is warm and dry. Capillary Refill: Capillary refill takes less than 2 seconds. Findings: No erythema or rash. Comments: With an abrasion to the left knee Neurological: General: No focal deficit present. Mental Status: She is alert and oriented to person, place, and time. Sensory: No sensory deficit. Motor: No weakness. Comments: For the fine intermittent tremor but otherwise no focal neurologic deficits she has full range of motion of all extremities Psychiatric: Mood and Affect: Mood normal. Behavior: Behavior normal. Labs Reviewed CBC WITH AUTO DIFFERENTIAL - Abnormal Result Value WBC 8.4 nRBC 0.0 RBC 4.58 Hemoglobin 13.4 Hematocrit 41.2 MCV 90 MCH 29.3 MCHC 32.5 RDW 14.2 Platelets 175 Neutrophils % 87.3 Immature Granulocytes %, Automated 0.4 Lymphocytes % 6.9 Monocytes % 3.5 Eosinophils % 1.3 Basophils % 0.6 Neutrophils Absolute 7.33 Immature Granulocytes Absolute, Automated 0.03 Lymphocytes Absolute 0.58 (*) Monocytes Absolute 0.29 Eosinophils Absolute 0.11 Basophils Absolute 0.05 BASIC METABOLIC PANEL - Abnormal Glucose 99 Sodium 136 Potassium 3.7 Chloride 96 (*) Bicarbonate 31 Anion Gap 13 Urea Nitrogen 12 Creatinine 1.02 eGFR 66 Calcium 9.2 HEPATIC FUNCTION PANEL - Abnormal Albumin 4.0 Bilirubin, Total 0.6 Bilirubin, Direct 0.1 Alkaline Phosphatase 90 ALT <3 (*) AST 9 Total Protein 7.2 APTT - Abnormal aPTT 26 (*) Narrative: The APTT is no longer used for monitoring Unfractionated Heparin Therapy. For monitoring Heparin Therapy, use the Heparin Assay. URINALYSIS WITH REFLEX CULTURE AND MICROSCOPIC - Abnormal Color, Urine Colorless (*) Appearance, Urine Clear Specific [place], Urine 1.008 pH, Urine 6.0 Protein, Urine NEGATIVE Glucose, Urine Normal Blood, Urine NEGATIVE Ketones, Urine NEGATIVE Bilirubin, Urine NEGATIVE Urobilinogen, Urine Normal Nitrite, Urine NEGATIVE Leukocyte Esterase, Urine 25 Irma/ L (*) MICROSCOPIC ONLY, URINE - Abnormal WBC, Urine 1-5 WBC Clumps, Urine RARE RBC, Urine 1-2 Squamous Epithelial Cells, Urine 1-9 (SPARSE) Bacteria, Urine 1+ (*) ALCOHOL - Normal Alcohol <10 LIPASE - Normal Lipase 18 Narrative: Venipuncture immediately after or during the administration of Metamizole may lead to falsely low results. Testing should be performed immediately prior to Metamizole dosing. LACTATE - Normal Lactate 0.8 Narrative: Venipuncture immediately after or during the administration of Metamizole may lead to falsely low results. Testing should be performed immediately prior to Metamizole dosing. TROPONIN I, HIGH SENSITIVITY - Normal Troponin I, High Sensitivity 9 Narrative: Less than 99th percentile of normal range cutoff- Female and children under 18 years old <14 ng/L; Male <21 ng/L: Negative Repeat testing should be performed if clinically indicated. Female and children under 18 years old 14-50 ng/L; Male 21-50 ng/L: Consistent with possible cardiac damage and possible increased clinical risk. Serial measurements may help to assess extent of myocardial damage. >50 ng/L: Consistent with cardiac damage, increased clinical risk and myocardial infarction. Serial measurements may help assess extent of myocardial damage. NOTE: Children less than 1 year old may have higher baseline troponin levels and results should be interpreted in conjunction with the overall clinical context. NOTE: Troponin I testing is performed using a different testing methodology at [facility] than at other [facility]. Direct result comparisons should only be made within the same method. PROTIME-INR - Normal Protime 10.5 INR 0.9 URINE CULTURE URINALYSIS WITH REFLEX CULTURE AND MICROSCOPIC Narrative: The following orders were created for panel order Urinalysis with Reflex Culture and Microscopic. Procedure Abnormality Status --------- ------ Urinalysis with Reflex C...[[id number]] Abnormal Final result Extra Urine Waldron Tube[[id number]] In process Please view results for these tests on the individual orders. DRUG SCREEN,URINE EXTRA URINE WALDRON TUBE CT cervical spine wo IV contrast Final Result 1. No acute fracture or spondylolisthesis. 2. No significant interval change of chronic degenerative changes as described in the body of the report. Signed by: Juvenal Huertas 05/29/2024 4:28 PM Dictation workstation: [id number] CT head wo IV contrast Final Result No significant interval change from the prior study. No CT evidence for acute intracranial pathology. Signed by: Juvenal Huertas 05/29/2024 4:11 PM Dictation workstation: [id number] XR chest 1 view Final Result No acute process. Signed by Terrence Levi MD Procedures Medical Decision Making Swiss diagnoses include electrolyte abnormality tremor alcohol withdraw cervical strain cervical fracture head contusion head injury. Normal saline bolus of 1 L was ordered as well as Toradol for pain CT scan of the head and neck chest x-ray and routine labs at this time. Patient's INR was normal urinalysis, lipase liver functions metabolic panel CBC were all normal. CT scan of the head was negative CT scan of the cervical spine showed no acute fractures and chest x-ray was negative. Patient received Ativan half milligram IV with complete resolution of her tremors which probably was related to some alcohol consumption. She received thiamine 100 mg IM also she will be given Ativan half milligram twice a day as needed tremors she. A long conversation was held with her son concerning his her alcohol issues he states that she has been in and out of detox programs and signs are soft out she does not want to consider admission for any alcohol detox at this point in time will be discharged home Amount and/or Complexity of Data Reviewed ECG/medicine tests: independent interpretation performed. Details: Twelve-lead EKG showed sinus rhythm at 83/min there is no acute ST segment elevation depressions or arrhythmias as interpreted by myself the emergency physician Diagnoses as of 05/29/24 1725 Generalized weakness Falls frequently Tremors of nervous system Contusion of left knee, initial encounter Strain of neck muscle, initial encounter Alcohol abuse Jeronimo Dolan MD 05/29/24 1725 [facility] Work Phone: 04-19-2024 Reason for referr al (narrative) Specialty Diagnoses / Procedures Referred By Asuncion hightower Referred To Contact Nephrology Jerrod Hale, DO [address] [place] [address] Referral ID Status Reason Start Date Expiration Date Visits Requested Visits Authorized [id number] Authorized Specialty Services Required 04/19/2024 04/19/2025 1 1 * Consultation (Routine) - Authorized Specialty Diagnoses / Procedures Referred By Contac t Referred To Contact Family Medicine / Primary Care Jerrod Hale DO [address] [place] [address] Referral ID Status Reason Start Date Expiration Date Visits Requested Visits Authorized [id number] Authorized Specialty Services Required 04/19/2024 04/19/2025 1 1 [facility] Work Phone: 1(847) 852-943105-21-2024 Hospital Discharge instructions* Discharge Instructions* Jerrod Hale DO - 04/09/2024 12:[address] Rocha will contact you later this morning at 8 a.m. to provide you with directions to his clinic. His clinic is located at [facility] * Attachments The following attachments cannot be sent through Care Everywhere. * Paresthesia Discharge Instructions (Surinamese) documented in this [facility] Work Phone: 1(506) 563-503505-20-2024 Reason for referral (narrative)* Consultation (Emergency) - Authorized Specialty Diagnoses / Procedures Referred By Contac t Referred To Contact Neurology Jerrod Hale DO [address] [place] [address] Referral ID Status Reason Start Date Expiration Date Visits Requested Visits Authorized [id number] Authorized Specialty Services Required 04/09/2024 04/09/2025 1 1 * Consultation (Routine) - Authorized Specialty Diagnoses / Procedures Referred By Contac t Referred To Contact Family Medicine / Primary Care Jerrod Hale DO [address] [place] [address] Referral ID Status Reason Start Date Expiration Date Visits Requested Visits Authorized [id number] Authorized Specialty Services Required 04/09/2024 04/09/2025 1 1 [facility] Work Phone: 1(334) 540-707405-17-2024 Miscellaneous Notes* Perioperative Nursing Note - Yaquelin Mart RN - 04/05/2024 12:15 PM EDT Discharge instructions reviewed by Karin Lowry RN no questions and verbalized understanding. Pt discharged amb to exit steady gait, to be driven home by Mother tony well * Op Note - Alfie Adair DO - 04/05/2024 10:35 AM EDT * No procedures listed * Operative Note Date: 04/05/2024 OR Location: [place] [address] OR Name: Vj Myers : 1970, Age: 53 y.o., , Sex: female Diagnosis * No Diagnosis Codes entered * * No Diagnosis Codes entered * Procedures * No procedures documented on diagnosis form * Surgeons * No surgeons found in log * Resident/Fellow/Other Registered Nurse Cardiovascular Icu: * No surgeons found in log * Procedure Summary Anesthesia: * No anesthesia type entered * ASA: ASA status not filed in the log. Anesthesia Staff: No anesthesia staff entered. Estimated Blood Loss: 0mL Intra-op Medications: * Intraprocedure medication information is unavailable because the case startand end events have not been set * Intraprocedure I/O Totals None Specimen: No specimens collected Staff: Fitness And Wellness Manager: Alka Garner, DANNI; Piero Son, RN; Rayray Seay, DANNI; Nicole Jacques, DANNI Drains and/or Catheters: * None in log * Tourniquet Times: Implants: Findings: Indications: Vj Myers is an 53 y.o. female who is having surgery for * No pre-op diagnosis entered *. Back pain The patient was seen in the preoperative area. The risks, benefits, complications, treatment options, non-operative alternatives, expected recovery and outcomes were discussed with the patient. The possibilities of reaction to medication, pulmonary aspiration, injury to surrounding structures, bleeding, recurrent infection, the need for additional procedures, failure to diagnose a condition, and creating a complication requiring transfusion or operation were discussed with the patient. The patient concurred with the proposed plan, giving informed consent. The site of surgery was properly noted/marked if necessary per policy. The patient has been actively warmed in preoperative area. Preopera tive antibiotics are not indicated. Venous thrombosis prophylaxis are not indicated. Procedure Details: Diagnosis: m54.16 lumbar radiculopathy Procedure: L4/5 interlaminar epidural steroid injection under fluoroscopic guidance Anesthesia: Local Complications: None After informed consent was obtained, the patient was brought to the procedure suite and placed in the prone position. Pulse oximetry and blood pressure were monitored throughout. The low back area was prepped and draped in the usual sterile fashion. Using fluoroscopic guidance, the skin and subcutaneous tissue overlying the needle trajectory were anesthetized with 2.0% lidocaine. An 18- gauge Tuohy needle was inserted and directed by fluoroscopy. Entry into the epidural space was confirmed usingthe loss of resistance technique with a glass syringe and 2 cc of air. Injection of contrast (dotarem used to allergies) revealed appropriate spread without vascular uptake. Needle tip position confir med in at least two views. 4 mL of normal saline plus 40 mg of Methylprednisone was then injected. The needle was removed and the patient was then transferred to the recovery room in stable condition. The patient tolerated the procedure well. There were no apparent complications. FOLLOW UP: The patient will update us on their response to this procedure, and agrees to continue currently prescribed/recommended therapies Complications: None; patient tolerated the procedure well. Disposition: home Condition: stable Additional Details: Attending Attestation: I was present and scrubbed for the entire procedure. *No primary surgeon found* documented in this [facility] Work Phone: 1(797) 972-923105-17-2024 Note* Perioperative Nursing Note - Yaquelin Mart RN - 04/05/2024 12:15 PM EDT Discharge instructions reviewed by Karin Lowry RN no questions and verbalized understanding. Pt discharged amb to exit steady gait, to be driven home by Mother tony well [facility]05-17-2024 Note* Perioperative Nursing Note - Yaquelin Mart RN - 04/05/2024 12:15 PM EDT Discharge instructions reviewed by Karin Lowry RN no questions and verbalized understanding. Pt discharged amb to exit steady gait, to be driven home by Mother tony well [facility]05-17-2024 History and physical note* Alfie Adair DO - 04/05/2024 10:35 AM EDT History Of Present Illness Vj Myres is a 53 y.o. female presenting with lumbar radic. 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, oral cavity, and pharynx History of throat cancer Personal history of Methicillin resistant Staphylococcus aureus infection History of methicillin resistant Staphylococcus aureus infection Personal history of other diseases of urinary system 10/26/2021 History of kidney disease Surgical History Past Surgical History: Procedure Laterality Date HYSTERECTOMY OTHER SURGICAL HISTORY 10/26/2021 Throat surgery OTHER SURGICAL HISTORY 10/26/2021 section OTHER SURGICAL HISTORY 10/26/2021 Bladder surgery OTHER SURGICAL HISTORY 10/26/2021 Hernia repair OTHER SURGICAL HISTORY 11/09/2021 Intra-articular corticosteroid injection Social History She reports that she has quit smoking. Her smoking use included cigarettes. She has never used smokeless tobacco. She reports that she does not currently use alcohol. She reports that she does not use drugs. Family History Family History Problem Relation Name Age of Onset Lung cancer Mother Heart failure Father Colon cancer Sister Diabetes Brother Heart failure Other Grandmother Allergies Iodinated contrast media, Morphine, Adhesive, and Latex Review of Systems All other systems reviewed and are negative. Physical Exam Last Recorded Vitals Blood pressure 91/62, pulse 74, temperature 36 C (96.8 F), temperature source Temporal, resp. rate 16, height 1.6 m (5' 3), weight 79.4 kg (175 lb), SpO2 96%. Relevant Results Constitutional: No acute distress, well appearing and well nourished. Patient appears stated age. Eyes: nonicteric sclerae ENT: Hearing is grossly intact. Neck: trachea midline Head and Face: grossly normal. Respiratory: nonlabored breathing Cardiovascular: rate per vitals. Neuro: alert, moving extremities. Assessment/Plan Active Problems: There are no active Hospital Problems. L4/5 chi I spent minutes in the professional and overall care of this patient. Alfie Adair DO [facility] Work Phone: 1(755) 805-426205-17-2024 History and physical note* Alfie Adair DO - 04/05/2024 10:35 AM EDT History Of Present Illness Vj Myers is a 53 y.o. female presenting with lumbar radic. 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, oral cavity, and pharynx History of throat cancer Personal history of Methicillin resistant Staphylococcus aureus infection History of methicillin resistant Staphylococcus aureus infection Personal history of other diseases of urinary system 10/26/2021 History of kidney disease Surgical History Past Surgical History: Procedure Laterality Date HYSTERECTOMY OTHER SURGICAL HISTORY 10/26/2021 Throat surgery OTHER SURGICAL HISTORY 10/26/2021 section OTHER SURGICAL HISTORY 10/26/2021 Bladder surgery OTHER SURGICAL HISTORY 10/26/2021 Hernia repair OTHER SURGICAL HISTORY 11/09/2021 Intra-articular corticosteroid injection Social History She reports that she has quit smoking. Her smoking use included cigarettes. She has never used smokeless tobacco. She reports that she does not currently use alcohol. She reports that she does not use drugs. Family History Family History Problem Relation Name Age of Onset Lung cancer Mother Heart failure Father Colon cancer Sister Diabetes Brother Heart failure Other Grandmother Allergies Iodinated contrast media, Morphine, Adhesive, and Latex Review of Systems All other systems reviewed and are negative. Physical Exam Last Recorded Vitals Blood pressure 91/62, pulse 74, temperature 36 C (96.8 F), temperature source Temporal, resp. rate 16, height 1.6 m (5' 3), weight 79.4 kg (175 lb), SpO2 96%. Relevant Results Constitutional: No acute distress, well appearing and well nourished. Patient appears stated age. Eyes: nonicteric sclerae ENT: Hearing is grossly intact. Neck: trachea midline Head and Face: grossly normal. Respiratory: nonlabored breathing Cardiovascular: rate per vitals. Neuro: alert, moving extremities. Assessment/Plan Active Problems: There are no active Hospital Problems. L4/5 chi I spent minutes in the professional and overall care of this patient. Alfie Adair DO documented in this [facility] Work Phone: 1([phone]) 261-698005-17-2024 Note* Op Note - Alfie Adair DO - 04/05/2024 10:35 AM EDT * No procedures listed * Operative Note Date: 04/05/2024 OR Location: [place] [address] OR Name: Vj Myers, : 1970, Age: 53 y.o., , Sex: female Diagnosis * No Diagnosis Codes entered * * No Diagnosis Codes entered * Procedures * No procedures documented on diagnosis form * Surgeons * No surgeons found in log * Resident/Fellow/Other Registered Nurse Cardiovascular Icu: * No surgeons found in log * Procedure Summary Anesthesia: * No anesthesia type entered * ASA: ASA status not filed in the log. Anesthesia Staff: No anesthesia staff entered. Estimated Blood Loss: 0mL Intra-op Medications: * Intraprocedure medication information is unavailable because the case startand end events have not been set * Intraprocedure I/O Totals None Specimen: No specimens collected Staff: Fitness And Wellness Manager: Alka Garner RN; Piero Son, DANNI; Rayray Seay RN; Nicole Jacques, DANNI Drains and/or Catheters: * None in log * Tourniquet Times: Implants: Findings: Indications: Vj Myers is an 53 y.o. female who is having surgery for * No pre-op diagnosis entered *. Back pain The patient was seen in the preoperative area. The risks, benefits, complications, treatment options, non-operative alternatives, expected recovery and outcomes were discussed with the patient. The possibilities of reaction to medication, pulmonary aspiration, injury to surrounding structures, bleeding, recurrent infection, the need for additional procedures, failure to diagnose a condition, and creating a complication requiring transfusion or operation were discussed with the patient. The patient concurred with the proposed plan, giving informed consent. The site of surgery was properly noted/marked if necessary per policy. The patient has been actively warmed in preoperative area. Preopera tive antibiotics are not indicated. Venous thrombosis prophylaxis are not indicated. Procedure Details: Diagnosis: m54.16 lumbar radiculopathy Procedure: L4/5 interlaminar epidural steroid injection under fluoroscopic guidance Anesthesia: Local Complications: None After informed consent was obtained, the patient was brought to the procedure suite and placed in the prone position. Pulse oximetry and blood pressure were monitored throughout. The low back area was prepped and draped in the usual sterile fashion. Using fluoroscopic guidance, the skin and subcutaneous tissue overlying the needle trajectory were anesthetized with 2.0% lidocaine. An 18- gauge Tuohy needle was inserted and directed by fluoroscopy. Entry into the epidural space was confirmed usingthe loss of resistance technique with a glass syringe and 2 cc of air. Injection of contrast (dotarem used to allergies) revealed appropriate spread without vascular uptake. Needle tip position confir med in at least two views. 4 mL of normal saline plus 40 mg of Methylprednisone was then injected. The needle was removed and the patient was then transferred to the recovery room in stable condition. The patient tolerated the procedure well. There were no apparent complications. FOLLOW UP: The patient will update us on their response to this procedure, and agrees to continue currently prescribed/recommended therapies Complications: None; patient tolerated the procedure well. Disposition: home Condition: stable Additional Details: Attending Attestation: I was present and scrubbed for the entire procedure. *No primary surgeon found* [facility] Work Phone: [phone]) 179-941205-17-2024 Note* Op Note - Alfie Adair DO - 04/05/2024 10:35 AM EDT * No procedures listed * Operative Note Date: 04/05/2024 OR Location: [facility] OR Name: Vj Myers, : 1970, Age: 53 y.o., , Sex: female Diagnosis * No Diagnosis Codes entered * * No Diagnosis Codes entered * Procedures * No procedures documented on diagnosis form * Surgeons * No surgeons found in log * Resident/Fellow/Other Registered Nurse Cardiovascular Icu: * No surgeons found in log * Procedure Summary Anesthesia: * No anesthesia type entered * ASA: ASA status not filed in the log. Anesthesia Staff: No anesthesia staff entered. Estimated Blood Loss: 0mL Intra-op Medications: * Intraprocedure medication information is unavailable because the case startand end events have not been set * Intraprocedure I/O Totals None Specimen: No specimens collected Staff: Fitness And Wellness Manager: Alka Garner RN; Piero Son, RN; Rayray Seay, DANNI; Nicole Jacques RN Drains and/or Catheters: * None in log * Tourniquet Times: Implants: Findings: Indications: Vj Myers is an 53 y.o. female who is having surgery for * No pre-op diagnosis entered *. Back pain The patient was seen in the preoperative area. The risks, benefits, complications, treatment options, non-operative alternatives, expected recovery and outcomes were discussed with the patient. The possibilities of reaction to medication, pulmonary aspiration, injury to surrounding structures, bleeding, recurrent infection, the need for additional procedures, failure to diagnose a condition, and creating a complication requiring transfusion or operation were discussed with the patient. The patient concurred with the proposed plan, giving informed consent. The site of surgery was properly noted/marked if necessary per policy. The patient has been actively warmed in preoperative area. Preopera tive antibiotics are not indicated. Venous thrombosis prophylaxis are not indicated. Procedure Details: Diagnosis: m54.16 lumbar radiculopathy Procedure: L4/5 interlaminar epidural steroid injection under fluoroscopic guidance Anesthesia: Local Complications: None After informed consent was obtained, the patient was brought to the procedure suite and placed in the prone position. Pulse oximetry and blood pressure were monitored throughout. The low back area was prepped and draped in the usual sterile fashion. Using fluoroscopic guidance, the skin and subcutaneous tissue overlying the needle trajectory were anesthetized with 2.0% lidocaine. An 18- gauge Tuohy needle was inserted and directed by fluoroscopy. Entry into the epidural space was confirmed usingthe loss of resistance technique with a glass syringe and 2 cc of air. Injection of contrast (dotarem used to allergies) revealed appropriate spread without vascular uptake. Needle tip position confir med in at least two views. 4 mL of normal saline plus 40 mg of Methylprednisone was then injected. The needle was removed and the patient was then transferred to the recovery room in stable condition. The patient tolerated the procedure well. There were no apparent complications. FOLLOW UP: The patient will update us on their response to this procedure, and agrees to continue currently prescribed/recommended therapies Complications: None; patient tolerated the procedure well. Disposition: home Condition: stable Additional Details: Attending Attestation: I was present and scrubbed for the entire procedure. *No primary surgeon found* [facility] Work Phone: 1([phone]) [phone] History of Present illness Narrative* Blas Zelaya MD MPH - 03/25/2024 4:20 PM EDT Subjective Patient ID: Vj Myers is a 53 y.o. female who presents for Follow-up (Pt is here for a 3 monthFUV. Reports she also broke her back about 3 weeks ago. Needs Colonoscopy due and Mammo is due too.AWV needs scheduled as well. ). HPI Reducing amlodipine dose to 5mg as the patient reports that her blood pressure has been low lately. Reports that she has twitching of the face lately. No recent new medications except disulfiram. She has stopped consuming alcohol for the last two weeks. Discussed vit b supplementation. Also recommended to seek immediate medical attention if worsneing of symptoms. If not improving then return soon. Had a recent fall and sustained L5 compression fracture. Reports that she was started on Lyrica which patient does not think it is helping her. Has pain management on board. Hx of COPD and trach in place. Has oxygen supplementation as well. Used to see counter clerk. Has not established care with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 Family History Problem Relation Name Age of Onset Lung cancer Mother Heart failure Father Colon cancer Sister Diabetes Brother Heart failure Other Grandmother Social History Tobacco Use Smoking status: Former Types: Cigarettes Smokeless tobacco: Never Vaping Use Vaping Use: Never used Substance Use Topics Alcohol use: Not Currently Drug use: Never Physical Exam ED Triage Vitals [02/02/24 1144] Temperature Heart Rate Respirations BP 36.6 C (97.8 F) 86 18 (!) 134/92 Pulse Ox Temp Source Heart Rate Source Patient Position (!) 92 % Temporal -- -- BP Location FiO2 (%) -- -- Physical Exam ED Course & MDM Diagnoses as of 02/02/24 1345 Fall, initial encounter Head injury, initial encounter Compression fracture of L5 vertebra, initial encounter ([facility]) Urinary tract infection without hematuria, site unspecified Medical Decision Making Labs Reviewed CBC WITH AUTO DIFFERENTIAL - Abnormal WBC 10.7 nRBC 0.0 RBC 4.57 Hemoglobin 13.4 Hematocrit 39.6 MCV 87 MCH 29.3 MCHC 33.8 RDW 13.2 Platelets 213 Neutrophils % 79.5 Immature Granulocytes %, Automated 0.5 Lymphocytes % 10.6 Monocytes % 7.0 Eosinophils % 1.7 Basophils % 0.7 Neutrophils Absolute 8.55 (*) Immature Granulocytes Absolute, Au* 0.05 Lymphocytes Absolute 1.14 (*) Monocytes Absolute 0.75 Eosinophils Absolute 0.18 Basophils Absolute 0.07 COMPREHENSIVE METABOLIC PANEL - Abnormal Glucose 113 (*) Sodium 131 (*) Potassium 3.5 Chloride 92 (*) Bicarbonate 29 Anion Gap 14 Urea Nitrogen 24 (*) Creatinine 1.19 (*) eGFR 55 (*) Calcium 9.5 Albumin 3.8 Alkaline Phosphatase 79 Total Protein 6.7 AST 6 (*) Bilirubin, Total 0.5 ALT 3 (*) URINALYSIS WITH REFLEX CULTURE AND MICROSCOPIC - Abnormal Color, Urine Yellow Appearance, Urine Clear Specific [place], Urine 1.012 pH, Urine 5.0 Protein, Urine NEGATIVE Glucose, Urine NEGATIVE Blood, Urine NEGATIVE Ketones, Urine NEGATIVE Bilirubin, Urine NEGATIVE Urobilinogen, Urine <2.0 Nitrite, Urine NEGATIVE Leukocyte Esterase, Urine TRACE (*) MICROSCOPIC ONLY, URINE - Abnormal WBC, Urine 6-10 (*) RBC, Urine 1-2 Squamous Epithelial Cells, Urine Bacteria, Urine 1+ (*) TROPONIN I, HIGH SENSITIVITY - Normal Troponin I, High Sensitivity 3 Narrative: Less than 99th percentile of normal range cutoff- Female and children under 18 years old <14 ng/L; Male <21 ng/L: Negative Repeat testing should be performed if clinically indicated. Female and children under 18 years old 14-50 ng/L; Male 21-50 ng/L: Consistent with possible cardiac damage and possible increased clinical risk. Serial measurements may help to assess extent of myocardial damage. >50 ng/L: Consistent with cardiac damage, increased clinical risk and myocardial infarction. Serial measurements may help assess extent of myocardial damage. NOTE: Children less than 1 year old may have higher baseline troponin levels and results should be interpreted in conjunction with the overall clinical context. NOTE: Troponin I testing is performed using a different testing methodology at [facility] than at other [facility]. Direct result comparisons should only be made within the same method. URINE CULTURE URINALYSIS WITH REFLEX CULTURE AND MICROSCOPIC Narrative: The following orders were created for panel order Urinalysis with Reflex Culture and Microscopic. Procedure Abnormality Status --------- ------ Urinalysis with Reflex C...[[id number]] Abnormal Final result Extra Urine Waldron Tube[[id number]] In process Please view results for these tests on the individual orders. EXTRA URINE WALDRON TUBE CT head wo IV contrast Final Result No acute intracranial pathology. Signed by: Sebastian Rodriguez 02/02/2024 1:17 PM Dictation workstation: [id number] CT cervical spine wo IV contrast Final Result No evidence for an acute fracture or subluxation of the cervical spine. MACRO: None Signed by: Sebastian Rodriguez 02/02/2024 1:14 PM Dictation workstation: [id number] CT lumbar spine wo IV contrast Final Result Acute mild superior endplate compression fracture of L5 with approximately 20% loss of height. No associated retropulsed fragments. Signed by Efrain Pimentel MD XR hip left with pelvis when performed 2 or 3 views Final Result No acute osseous findings. Signed by Terrence Townsend II, MD Medical Decision Making: Patient appears well nontoxic. Vital signs within normal limits. Left hip x-ray negative for acute fracture or dislocation. Patient treated with intravenous fentanyl and ODT Zofran. CT head and neck negative. CT lumbar spine shows an L5 compression fracture. Urine concerning for possible UTI. Will be treated with Keflex as well as Percocet at home. Asked to follow-up with primary care. Stable at time of discharge. Differential Diagnoses Considered: Lumbar fracture versus contusion. Left hip contusion versus fracture versus dislocation. Closed head injury versus intracranial hemorrhage. Cervical strain versus fracture. Independent Interpretation of Studies: I independently interpreted: CT brain shows no intracranial hemorrhage. CT cervical spine shows no acute fracture or dislocation. Left hip x-ray shows no acute fracture or dislocation. Escalation of Care: Appropriate for discharge and follow-up with primary care. Prescription Drug Consideration: Oral Keflex and Percocet. Procedure ECG 12 lead Performed by: Ton Lin DO Authorized by: Ton Lin DO ECG interpreted by ED Physician in the absence of a puller out: yes Comments: EKG interpreted by Dr. Ton Lin: Normal sinus rhythm at 80 bpm. PA interval 144 ms. QTc of442 ms. No evidence of ST elevation or depression at this time. Ton Lin DO 02/02/24 1346 documented in this [facility] Work Phone: 1([phone]) [phone] Physician Emergency department Note* Ton Lin DO - 02/02/2024 11:38 AM EDTAssociated Order(s): ECG 12 lead HPI Chief Complaint Patient presents with Fall Fell twice on Monday and is having increased left hip/knee/low back pain. Did hit head. No blood thinners. Limitations to History: None HPI: 53-year-old female presents with concern for head injury, neck pain, back pain, left hip pain.States that she fell yesterday evening. Denies any loss of consciousness. Denies any chest pain, shortness of breath, nausea, vomiting, abdominal pain, urinary symptoms. Physical Exam: VS: As documented in the triage note and EMR flowsheet from this visit were reviewed. Appearance: Alert. cooperative, in no acute distress. Skin: Intact, dry skin, no lesions, rash, petechiae or purpura. Eyes: PERRLA, EOMs intact, Conjunctiva pink with no redness or exudates. HENT: Normocephalic, atraumatic. Nares patent. No intraoral lesions. Neck: Supple, without meningismus. Trachea at midline. No lymphadenopathy. Pulmonary: Clear bilaterally with good chest wall excursion. No rales, rhonchi or wheezing. No accessory muscle use or stridor. Cardiac: Regular rate and rhythm, no rubs, murmurs, or gallops. Abdomen: Abdomen is soft, nontender, and nondistended. No palpable organomegaly. No rebound or guarding. No CVA tenderness. Nonsurgical abdomen. Genitourinary: Exam deferred. Musculoskeletal: Full range of motion. Pulses full and equal. No cyanosis, clubbing, or edema. Tenderness to palpation of the left hip. Neurological: Cranial nerves are grossly intact, grossly normal sensation, no weakness, no focal findings identified. Psychiatric: Appropriate mood and affect. 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, oral cavity, and pharynx History of throat cancer Personal history of Methicillin resistant Staphylococcus aureus infection History of methicillin resistant Staphylococcus aureus infection Personal history of other diseases of urinary system 10/26/2021 History of kidney disease Past Surgical History: Procedure Laterality Date OTHER SURGICAL HISTORY 10/26/2021 Throat surgery OTHER SURGICAL HISTORY 10/26/2021 section OTHER SURGICAL HISTORY 10/26/2021 Bladder surgery OTHER SURGICAL HISTORY 10/26/2021 Hernia repair OTHER SURGICAL HISTORY 11/09/2021 Intra-articular corticosteroid injection Family History Problem Relation Name Age of Onset Lung cancer Mother Heart failure Father Colon cancer Sister Diabetes Brother Heart failure Other Grandmother Social History Tobacco Use Smoking status: Former Types: Cigarettes Smokeless tobacco: Never Vaping Use Vaping Use: Never used Substance Use Topics Alcohol use: Not Currently Drug use: Never Physical Exam ED Triage Vitals [02/02/24 1144] Temperature Heart Rate Respirations BP 36.6 C (97.8 F) 86 18 (!) 134/92 Pulse Ox Temp Source Heart Rate Source Patient Position (!) 92 % Temporal -- -- BP Location FiO2 (%) -- -- Physical Exam ED Course & MDM Diagnoses as of 02/02/24 1345 Fall, initial encounter Head injury, initial encounter Compression fracture of L5 vertebra, initial encounter ([facility]) Urinary tract infection without hematuria, site unspecified Medical Decision Making Labs Reviewed CBC WITH AUTO DIFFERENTIAL - Abnormal WBC 10.7 nRBC 0.0 RBC 4.57 Hemoglobin 13.4 Hematocrit 39.6 MCV 87 MCH 29.3 MCHC 33.8 RDW 13.2 Platelets 213 Neutrophils % 79.5 Immature Granulocytes %, Automated 0.5 Lymphocytes % 10.6 Monocytes % 7.0 Eosinophils % 1.7 Basophils % 0.7 Neutrophils Absolute 8.55 (*) Immature Granulocytes Absolute, Au* 0.05 Lymphocytes Absolute 1.14 (*) Monocytes Absolute 0.75 Eosinophils Absolute 0.18 Basophils Absolute 0.07 COMPREHENSIVE METABOLIC PANEL - Abnormal Glucose 113 (*) Sodium 131 (*) Potassium 3.5 Chloride 92 (*) Bicarbonate 29 Anion Gap 14 Urea Nitrogen 24 (*) Creatinine 1.19 (*) eGFR 55 (*) Calcium 9.5 Albumin 3.8 Alkaline Phosphatase 79 Total Protein 6.7 AST 6 (*) Bilirubin, Total 0.5 ALT 3 (*) URINALYSIS WITH REFLEX CULTURE AND MICROSCOPIC - Abnormal Color, Urine Yellow Appearance, Urine Clear Specific [place], Urine 1.012 pH, Urine 5.0 Protein, Urine NEGATIVE Glucose, Urine NEGATIVE Blood, Urine NEGATIVE Ketones, Urine NEGATIVE Bilirubin, Urine NEGATIVE Urobilinogen, Urine <2.0 Nitrite, Urine NEGATIVE Leukocyte Esterase, Urine TRACE (*) MICROSCOPIC ONLY, URINE - Abnormal WBC, Urine 6-10 (*) RBC, Urine 1-2 Squamous Epithelial Cells, Urine Bacteria, Urine 1+ (*) TROPONIN I, HIGH SENSITIVITY - Normal Troponin I, High Sensitivity 3 Narrative: Less than 99th percentile of normal range cutoff- Female and children under 18 years old <14 ng/L; Male <21 ng/L: Negative Repeat testing should be performed if clinically indicated. Female and children under 18 years old 14-50 ng/L; Male 21-50 ng/L: Consistent with possible cardiac damage and possible increased clinical risk. Serial measurements may help to assess extent of myocardial damage. >50 ng/L: Consistent with cardiac damage, increased clinical risk and myocardial infarction. Serial measurements may help assess extent of myocardial damage. NOTE: Children less than 1 year old may have higher baseline troponin levels and results should be interpreted in conjunction with the overall clinical context. NOTE: Troponin I testing is performed using a different testing methodology at [facility] than at other [facility]. Direct result comparisons should only be made within the same method. URINE CULTURE URINALYSIS WITH REFLEX CULTURE AND MICROSCOPIC Narrative: The following orders were created for panel order Urinalysis with Reflex Culture and Microscopic. Procedure Abnormality Status --------- ------ Urinalysis with Reflex C...[[id number]] Abnormal Final result Extra Urine Waldron Tube[[id number]] In process Please view results for these tests on the individual orders. EXTRA URINE WALDRON TUBE CT head wo IV contrast Final Result No acute intracranial pathology. Signed by: Sebastian Rodriguez 02/02/2024 1:17 PM Dictation workstation: [id number] CT cervical spine wo IV contrast Final Result No evidence for an acute fracture or subluxation of the cervical spine. MACRO: None Signed by: Sebastian Rodriguez 02/02/2024 1:14 PM Dictation workstation: [id number] CT lumbar spine wo IV contrast Final Result Acute mild superior endplate compression fracture of L5 with approximately 20% loss of height. No associated retropulsed fragments. Signed by Efrain Pimentel MD XR hip left with pelvis when performed 2 or 3 views Final Result No acute osseous findings. Signed by Terrence Townsend II, MD Medical Decision Making: Patient appears well nontoxic. Vital signs within normal limits. Left hip x-ray negative for acute fracture or dislocation. Patient treated with intravenous fentanyl and ODT Zofran. CT head and neck negative. CT lumbar spine shows an L5 compression fracture. Urine concerning for possible UTI. Will be treated with Keflex as well as Percocet at home. Asked to follow-up with primary care. Stable at time of discharge. Differential Diagnoses Considered: Lumbar fracture versus contusion. Left hip contusion versus fracture versus dislocation. Closed head injury versus intracranial hemorrhage. Cervical strain versus fracture. Independent Interpretation of Studies: I independently interpreted: CT brain shows no intracranial hemorrhage. CT cervical spine shows no acute fracture or dislocation. Left hip x-ray shows no acute fracture or dislocation. Escalation of Care: Appropriate for discharge and follow-up with primary care. Prescription Drug Consideration: Oral Keflex and Percocet. Procedure ECG 12 lead Performed by: Ton Lin DO Authorized by: Ton Lin DO ECG interpreted by ED Physician in the absence of a puller out: yes Comments: EKG interpreted by Dr. Ton Lin: Normal sinus rhythm at 80 bpm. PA interval 144 ms. QTc of442 ms. No evidence of ST elevation or depression at this time. Ton Lin DO 02/02/24 1346 [facility] Work Phone: [phone] 320-825901-15-2024 Evaluation + Plan note* Assessment & Plan Note - Blas Zelaya MD MPH - 12/04/2023 4:29 PM ESTAssociated Problem(s): Tracheostomy status (CMS/HCC) Placed in Nov 08 2023 for respiratory failure. Needs to go to ENT for removal of speech valve- has an appointment soon. Also will follow-up with pulm for lung nodules. Has hx of laryngeal cancer about 10 years ago. Has a stoma there which was used to place trach. [facility] Work Phone: [phone]) 295-212901-15-2024 Evaluation + Plan note* Assessment & Plan Note - Blas Zealya MD MPH - 12/04/2023 4:29 PM ESTAssociated Problem(s): Malignant neoplasm of larynx (CMS/HCC) Resolved now. Treated 10 years ago. [facility] Work Phone: [phone]) 480-373201-15-2024 Evaluation + Plan note* Assessment & Plan Note - Blas Zelaya MD MPH - 12/04/2023 4:29 PM ESTAssociated Problem(s): Chronic obstructive pulmonary disease with (acute) exacerbation (CMS/HCC) Smoking about 2 cigarettes per day. [facility] Work Phone: [phone] 245-186201-15-2024 Evaluation + Plan note* Assessment & Plan Note - Blas Zelaya MD MPH - 12/04/2023 4:29 PM ESTAssociated Problem(s): Alcoholism (CMS/HCC) She used to drink about 2 bottles per day. But has quit about 2 months ago. Takes medication to help with craving-working well for her- social security benefits interviewer at the [facility] used to prescribe it. [facility] Work Phone: [phone]) 148-846101-15-2024 Miscellaneous Notes* Assessment & Plan Note - Blas Zelaya MD MPH - 12/04/2023 4:29 PM ESTAssociated Problem(s): Tracheostomy status (CMS/HCC) Placed in Nov 08 2023 for respiratory failure. Needs to go to ENT for removal of speech valve- has an appointment soon. Also will follow-up with pulm for lung nodules. Has hx of laryngeal cancer about 10 years ago. Has a stoma there which was used to place trach. * Assessment & Plan Note - Blas Zelaya MD MPH - 12/04/2023 4:29 PM ESTAssociated Problem(s): Malignant neoplasm of larynx (CMS/HCC) Resolved now. Treated 10 years ago. * Assessment & Plan Note - Blas Zelaya MD MPH - 12/04/2023 4:29 PM ESTAssociated Problem(s): Chronic obstructive pulmonary disease with (acute) exacerbation (CMS/HCC) Smoking about 2 cigarettes per day. * Assessment & Plan Note - Blas Zelaya MD MPH - 12/04/2023 4:29 PM ESTAssociated Problem(s): Alcoholism (CMS/HCC) She used to drink about 2 bottles per day. But has quit about 2 months ago. Takes medication to help with craving-working well for her- social security benefits interviewer at the [employer] used to prescribe it. documented in this [facility] Work Phone: [phone] 210-503501-15-2024 History of Present illness Narrative* Blas Zelyaa MD MPH - 12/04/2023 3:40 PM EST Subjective Patient ID: Vj Myers is a 53 y.o. female who presents for New PT (PT is here today to establish care as a new PT. Recently was discharged from [facility]. Reports the trach is new about a month. Spent a couple weeks in ICU. Was at in [place]. Would also like to talk about all her meds she takes. ). HPI Patient is here to establish care. Cellulitis: Starting today. Pain and redness. Swelling as well. Had recent episode of cellulitis. Plan: Starting Keflex. Hypothyroidism: Many years ~10 yrs. Has been taking levothyroxine supplementation- two supplements.Reports that she has been taking these two for the last two years. High parathyroid hormone levels noticed in 2021. Placed in Nov 08 2023 for respiratory failure. Needs to go to ENT for removal of speech valve- has an appointment soon. Also will follow-up with pulm for lung nodules. Has hx of laryngeal cancer about 10 years ago. Has a stoma there which was used to place trach. Laryngeal cancer. Resolved now. Treated 10 years ago. CKD4: Most recent GFR was 17 and Creatinine 3.18. Was under nephrology care. But they report that she was directed not to follow up any further as her kidney function is stable. I recommended to confirm this information as recently her GFR was even as low as 15. Requesting for disability card. A person may receive a disabled parking placard if he or she cannot walk 200 feet without stopping to rest; uses portable oxygen; is restricted by lung disease to such an extent that the person s forced (respiratory) expiratory volume for 1 second, when measured by spirometry, is less than 1 liter, or the arterial oxygen tension is less than 60 millimeters of mercury on room air at rest; is severely limited in the ability to walk due to an arthritic, neurological, or orthopedic condition(knee arthritis possibly need surgery per patient report); Review of Systems ROS negative except discussed above in HPI. Vitals: 12/04/23 1604 BP: 98/70 Pulse: 110 SpO2: 98% Objective Physical Exam Constitutional: Appearance: Normal appearance. Cardiovascular: Rate and Rhythm: Normal rate and regular rhythm. Pulmonary: Effort: Pulmonary effort is normal. Breath sounds: Normal breath sounds. Neurological: Mental Status: She is alert. Assessment/Plan Vj was seen today for new pt . Diagnoses and all orders for this visit: Cellulitis of right lower extremity (Primary) - cephalexin (Keflex) 500 mg capsule; Take 1 capsule (500 mg) by mouth 4 times a day for 7 days. Tracheostomy status (CMS/HCC) - Disability Placard Malignant neoplasm of larynx (CMS/HCC) Stage 4 chronic kidney disease (CMS/HCC) - Disability Placard - Basic Metabolic Panel; Future - Hemoglobin A1C; Future Chronic obstructive pulmonary disease with (acute) exacerbation (CMS/HCC) - Disability Placard Alcoholism (CMS/HCC) - Hemoglobin A1C; Future Body mass index (BMI) 45.0-49.9, adult (CMS/HCC) Tracheostomy dependent (CMS/HCC) - Disability Placard Hypothyroidism, unspecified type - TSH with reflex to Free T4 if abnormal; Future Other specified abnormal findings of blood chemistry - Hemoglobin A1C; Future Follow up in 3 months. Blas Zelaya MD MPH [facility] Work Phone: [phone]) [phone] Instructions* Patient Instructions* Blas Zelaya MD MPH - 12/04/2023 3:40 PM EST Kidney function numbers; GFR is 17 Creatinine is 3.18 Gradually stop taking Lyrica. Take 2 times a day for 4-5 days, then go to once daily for 4-5 days and then stop taking it. [facility] Work Phone: [phone] Nurse Note* aCrly Archer RN - 11/01/2023 7:41 PM EST [facility] at pt bedside to transport pt to [facility]. [facility]12-13-2023 Nurse Note* Carly Archer RN - 11/01/2023 7:41 PM EST [facility] here at pt bedside to transport pt to [facility]. * Ivonne Lemos RN - 10/30/2023 12:00 AM EST Pt up in chair. Helped pt to bedside commode to void. Returned to chair. Pt made NPO. Denies pain or needs at this time. Call light in reach. Will continue to monitor. * Ivonne Lemos RN - 10/28/2023 11:50 PM EST Pt up to bedside commode and returned to bed. Denies pain. Purewick placed per pt request. Ativan given for anxiety. Pt resting comfortably. Call light in reach. * Dinah Gonzalez RN - 10/25/2023 11:57 PM EST Starting around 23:15 patient heart rate was between 140s and 160s. 1 mg lorazepam was given for anxiety, heart rate lowered to 110s to 120s. Dr Cameron notified. documented in this [facility] Work Phone: [phone]) 963-310212-13-2023 Hospital course Narrative* Karsten Funes MD - 11/01/2023 1:41 PM EST Discharge Diagnosis Pneumonia due to gram-negative bacteria Acute respiratory failure with hypercapnia and hypoxia New sinus tachycardia, EKG shows tachycardia in the 152, low voltage QRS.. Hyponatremia Metabolic encephalopathy History of MRSA positive Acute renal failure Hypomagnesemia Chronic alcohol abuse Hypothyroidism. Issues Requiring Follow-Up Acute respiratory failure with hypercapnia and hypoxia New sinus tachycardia, EKG shows tachycardia in the 152, low voltage QRS.. Hyponatremia Metabolic encephalopathy History of MRSA positive Acute renal failure Hypomagnesemia Chronic alcohol abuse Hypothyroidism. Discharge Meds Your medication list START taking these medications Instructions Last Dose Given Next Dose Due acetaminophen 325 mg tablet Commonly known as: Tylenol Take 2 tablets (650 mg) by mouth every 4 hours if needed for moderate pain (4 - 6) or mild pain (1 - 3). doxycycline 100 mg tablet Commonly known as: Vibra-Tabs Take 1 tablet (100 mg) by mouth every 12 hours for 7 days. Take with a full glass of water and do not lie down for at least 30 minutes after. folic acid 1 mg tablet Commonly known as: Folvite Start taking on: November 02, 2023 Take 1 tablet (1 mg) by mouth once daily. Do not start before November 02, 2023. ipratropium-albuteroL 0.5-2.5 mg/3 mL nebulizer solution Commonly known as: Duo-Neb Take 3 mL by nebulization 4 times a day. LORazepam 1 mg tablet Commonly known as: Ativan Take 1 tablet (1 mg) by mouth every 8 hours if needed for anxiety. magnesium oxide 400 mg (241.3 mg magnesium) tablet Commonly known as: Mag-Ox Start taking on: November 02, 2023 Take 1 tablet (400 mg) by mouth once daily. Do not start before November 02, 2023. oxygen gas therapy Commonly known as: O2 Inhale 1 each once every 24 hours. thiamine 100 mg/mL injection Commonly known as: Vitamin B1 Start taking on: November 02, 2023 Infuse 1 mL (100 mg) into a venous catheter once daily. Do not start before November 02, 2023. CHANGE how you take these medications Instructions Last Dose Given Next Dose Due HYDROcodone-acetaminophen 5-325 mg tablet Commonly known as: [place] What changed: reasons to take this Take 1 tablet by mouth 3 times a day as needed for severe pain (7 - 10) or moderate pain (4 - 6) (Low back pain). CONTINUE taking these medications Instructions Last Dose Given Next Dose Due amLODIPine 10 mg tablet Commonly known as: Norvasc atorvastatin 20 mg tablet Commonly known as: Lipitor carvedilol 6.25 mg tablet Commonly known as: Coreg citalopram 10 mg tablet Commonly known as: CeleXA hydrOXYzine HCL 25 mg tablet Commonly known as: Atarax levothyroxine 125 mcg tablet Commonly known as: Synthroid, Levoxyl levothyroxine 137 mcg tablet Commonly known as: Synthroid, Levoxyl liothyronine 5 mcg tablet Commonly known as: Cytomel omeprazole [address] capsule Commonly known as: PriLOSEC pentazocine-naloxone 50-0.5 mg tablet Commonly known as: Talwin NX pregabalin 50 mg capsule Commonly known as: Lyrica sertraline 50 mg tablet Commonly known as: Zoloft sucralfate 1 gram tablet Commonly known as: Carafate STOP taking these medications Hyzaar 100-25 mg tablet Generic drug: losartan-hydrochlorothiazide meloxicam 15 mg tablet Commonly known as: Bluic Where to Get Your Medications You can get these medications from any pharmacy Bring a paper prescription for each of these medications HYDROcodone-acetaminophen 5-325 mg tablet LORazepam 1 mg tablet Information about where to get these medications is not yet available Ask your nurse or doctor about these medications acetaminophen 325 mg tablet doxycycline 100 mg tablet folic acid 1 mg tablet ipratropium-albuteroL 0.5-2.5 mg/3 mL nebulizer solution magnesium oxide 400 mg (241.3 mg magnesium) tablet oxygen gas therapy thiamine 100 mg/mL injection Test Results Pending At Discharge Pending Labs No current pending labs. Hospital Course 53 y.o. female Who presented to the emergency room for congestion cough and shortness of breath. Onpresentation, blood pressure 96/59, heart rate 93, respiratory 21, afebrile, saturation oxygen 91% via trach collar. Pertinent findings on blood workup; glucose 146, sodium 132, creatinine 1.52, magnesium 0.85 and calcium 6.5. Influenza and COVID-19 both came back negative. Chest x- ray showed mixedinterstitial bibasilar airspace opacities. While in the emergency room patient's blood pressure dropped and became 77/46. IV fluids half-normal saline was bolused. Patient was also given 10 mg IV dexamethasone, DuoNebs, Toradol, magnesium, Zosyn, and then admitted to the medical service for furtherinvestigation and management. Upon encounter now, patient reports feeling still very sick. She has tracheostomy. She cannot articulate but with limitation. Dates back her history to several days ago when she started having productive cough with yellowish/greenish phlegm. Associated with congestion. No fever or chills. But patient felt very ill and sick. Her mother was just recently hospitalized for influenza A. She did have acontact with her mother. No nausea or vomiting. No abdominal pain. No diarrhea. Hospitalization patient had been on ventilator to [facility], had couple of bronchoscope's. Initial bronchoscopy grew MRSA. Was on vancomycin switched to doxycycline. Will finish up course in 7 more days.Was seen by military logistics specialist and managed during hospitalization. Her respiratory status improved and currently on BiPAP through the night at 10/5, 28% oxygen. On 5 L on mask on trach. Patient also came with sinus tachycardia improved currently. Her acute on chronic respiratory failure with hypercapnia and hypoxia improved with current BiPAP settings and oxygen through trach. Her metabolic encephalopathy resolved. She was also seen by renal for acute renal failure, creatinine has been stable will follow-up with renal as outpatient. Had low electrolytes which were supplemented. Was initially on sodium bicarb which was also stoppedduring hospitalization. Her other chronic medical conditions remained to be stable, she is discharged to rehab for generalized weakness requiring PT and OT. Instruction has been sent for respiratory therapy. Will follow outpatient with renal. Pertinent Physical Exam At Time of Discharge Physical Exam Constitutional: Appearance: Normal appearance. HENT: Head: Normocephalic and atraumatic. Right Ear: External ear normal. Left Ear: External ear normal. Nose: Nose normal. Mouth/Throat: Mouth: Mucous membranes are moist. Pharynx: Oropharynx is clear. Eyes: Extraocular Movements: Extraocular movements intact. Conjunctiva/sclera: Conjunctivae normal. Pupils: Pupils are equal, round, and reactive to light. Neck: Comments: Tracheostomy in place Cardiovascular: Rate and Rhythm: Normal rate and regular rhythm. Pulmonary: Effort: Pulmonary effort is normal. Breath sounds: Rhonchi present. Abdominal: General: Abdomen is flat. Palpations: Abdomen is soft. Skin: General: Skin is warm and dry. Neurological: General: No focal deficit present. Mental Status: She is alert and oriented to person, place, and time. Psychiatric: Mood and Affect: Mood normal. Behavior: Behavior normal. Outpatient Follow-Up Set up with Dr. Gonzales, and renal in 3 to 5 weeks. Total discharge time 35 minutes. Karsten Davila MD documented in this [facility] Work Phone: 1([phone]) 633-241612-13-2023 History of Present illness Narrative* Mercedes Kelsey Zuluaga, AUTOMATIC LATHE TENDER - 11/01/2023 12:31 PM EST Per Akash Mary/Mila, patient's room will not be ready until 20:00pm this evening. Social Workerrelaying same to medical team; awaits reply. - 1330: ORI met with patient is agreeable to discharge to [facility] this evening, and medical team is in agreement with same. ORI awaits final orders. - 1800: Final orders faxed to [facility], per their request (fax [phone]). ORI met with patient to review plan and Medicare IMM. Patient confirmed understanding and agreement with same. Transport time stillto be confirmed. Plan for patient to discharge to [facility] this evening for a 2000 (8pm) admission time. No further Care Transitions needs foreseen. Care Transitions available upon request. TRACIE Alva * Geovanna Diaz RDN, LD - 10/31/2023 3:00 PM EST Nutrition Follow-up Note Nutrition Assessment Reason for Assessment Reason for Assessment: Dietitian discretion (Follow up assessment:Vent patient; weight gain) History: Food and Nutrient History Energy Intake: Good > 75 % Food and Nutrient History: improved appetite 50-100% at meals; accepting oral supplementation; menuselections reviewed with dietary staff; asleep/resting, unable to interview today Anthropometrics: Height: 160 cm (5' 2.99) Weight: 103 kg (227 lb 1.2 oz) BMI (Calculated): 40.23 Weight Change Weight History / % Weight Change: 103 kg 10/28; 97.6 kg 10/26 (5.1% x 2 days); 10/22 stated weight 81.8 kg (25% gain) Significant Weight Loss: No Significant Weight Gain: Fluid related (patient has also had improved appetite/intakes, accepting oral supplements) IBW/kg (Dietitian Calculated): 52.2 kg Percent of IBW: 197 % Adjusted Body Weight (kg): 77.7 kg Energy Needs: Calculated Energy Needs Using Equations Height: 160 cm (5' 2.99) Weight Used for Equation Calculations: 81.6 kg (180 lb) [place] Equation (Critically Ill Patients): 1963 Minute Ventilation (L/min): 8.7 L/min [facility]. [place] Equation (Overweight or Obese Patients): 1391 Equation Chosen to Use by RD: (obese >30, age <60 years) Temp: 36.6 C (97.9 F) Estimated Protein Needs Total Protein Estimated Needs (g): 75 g Total Protein Estimated Needs (g/kg): 1 g/kg Type of Protein Needed: oral diet, oral supplementation Method for Estimating Needs: 1 g/75 kg adjusted body weight Estimated Fluid Needs Total Fluid Estimated Needs (mL): 1963 mL Method for Estimating Needs: 1 ml/kcal/day Nutrition Diagnosis Malnutrition Diagnosis Patient has Malnutrition Diagnosis: No Patient has Nutrition Diagnosis: Yes Nutrition Diagnosis 1: Obese Diagnosis Status (1): Ongoing Related to (1): high BMI at admission As Evidenced by (1): BMI >38, weight >200# Additional Assessment Information (1): history MS, chronic alcohol abuse, throat cancer (oral/lip/pharyangeal s/p laryngectomy w/current tracheostomyon vent Nutrition Diagnosis 2: Altered nutrition related to laboratory values Diagnosis Status (2): Ongoing Related to (2): sepsis/PNA withAntibiotic therapy; acute on chronic respiratory failure As Evidenced by (2): elevated WBC, low H/H, low albumin, low calcium. hyponatremia; high BUN/Creat/low eGFR; low albumin/total protein Additional Assessment Information (2): hyponatremia stable; hypomagnesium resolved Nutrition Interventions/Recommendations Nutrition Prescription Individualized Nutrition Prescription Provided for : Adult diet Cardiac, low fat, low sodium as ordered; will discontinue oral supplements 2x daily, benefit recieved Food and/or Nutrient Delivery Interventions Interventions: Meals and snacks Meals and Snacks: Fat-modified diet, Mineral-modified diet Goal: Will consume 75% of therapeutic diet ordered Coordination of Nutrition Care by a Nutrition Professional Collaboration and Referral of Nutrition Care: Collaboration by nutrition professional with other providers Nutrition Monitoring and Evaluation Food and Nutrient Related History Criteria: as previous; ongoing monitoring and evaluation Anthropometrics: Body Composition/Growth/Weight History Criteria: as previous: ongoing monitoring and evaluation Biochemical Data, Medical Tests and Procedures Criteria: as previous: ongoing monitoring and evaluation Follow Up Time Spent (min): 40 minutes Last Date of Nutrition Visit: 10/31/23 Nutrition Follow-Up Needed?: Dietitian to reassess per policy * BEST Mock - 10/31/2023 1:01 PM EST Pt reviewed during Care Rounds today- she continues to be ready for discharge; however, we are awaiting a bed at [facility]. SW spoke to [facility] yesterday and they arestill anticipating an open bed tomorrow/Monday later in the day. Today's updates attached in CarePort. Care Transitions will continue to follow. BEST Mock * Anne Bhupendra Gonzales DO - 10/31/2023 12:02 PM EST Vj Myers is a 53 y.o. female on day 8 of admission presenting with Pneumonia due to gram-negative bacteria. Subjective Patient seen and examined at the bedside this morning She is resting comfortably in the bedside chair Has no major complaints Tolerating ventilator through the night well Having good urine output Objective Vitals 24HR Heart Rate: [74-114] Temp: [35.9 C (96.6 F)-36.6 C (97.9 F)] Resp: [10-21] BP: (136-157)/(79-116) SpO2: [92 %-99 %] Intake/Output last 3 Shifts: Intake/Output Summary (Last 24 hours) at 10/31/2023 1202 Last data filed at 10/31/2023 0900 Gross per 24 hour Intake 840 ml Output 2 ml Net 838 ml Physical Exam Constitutional: Appearance: Normal appearance. HENT: Head: Normocephalic and atraumatic. Right Ear: External ear normal. Left Ear: External ear normal. Nose: Nose normal. Mouth/Throat: Mouth: Mucous membranes are moist. Pharynx: Oropharynx is clear. Eyes: Extraocular Movements: Extraocular movements intact. Conjunctiva/sclera: Conjunctivae normal. Pupils: Pupils are equal, round, and reactive to light. Neck: Comments: Tracheostomy in place Cardiovascular: Rate and Rhythm: Normal rate and regular rhythm. Pulmonary: Effort: Pulmonary effort is normal. Breath sounds: Rhonchi present. Abdominal: General: Abdomen is flat. Palpations: Abdomen is soft. Skin: General: Skin is warm and dry. Neurological: General: No focal deficit present. Mental Status: She is alert and oriented to person, place, and time. Psychiatric: Mood and Affect: Mood normal. Behavior: Behavior normal. Relevant Results Scheduled medications acetylcysteine, 3 mL, nebulization, 4x daily amLODIPine, 10 mg, oral, Daily atorvastatin, 20 mg, oral, Nightly carvedilol, 6.25 mg, oral, BID doxycycline, 100 mg, oral, q12h CESIA folic acid, 1 mg, oral, Daily ipratropium-albuteroL, 3 mL, nebulization, 4x daily levothyroxine, 137 mcg, oral, Daily lidocaine, 15 mL, Mouth/Throat, Once liothyronine, 5 mcg, oral, Daily magnesium oxide, 400 mg, oral, Daily pantoprazole, 40 mg, oral, Daily before breakfast predniSONE, 40 mg, oral, Daily thiamine, 100 mg, intravenous, Daily Continuous medications PRN medications PRN medications: acetaminophen OR acetaminophen OR acetaminophen, alum- mag hydroxide-simeth, LORazepam, magnesium hydroxide, ondansetron ODT OR ondansetron, oxygen, oxygen Assessment/Plan This patient currently has cardiac telemetry ordered; if you would like to modify or discontinue the telemetry order, click here to go to the orders activity to modify/discontinue the order. 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 Chronic hypoxemic respiratory failure Multiple sclerosis Acute renal failure: Seems to have peaked and now improving Hemoptysis: Improved Plan: At this time her renal function does show signs of slow improvement Her blood pressure is running just a little bit on the high side however this is okay at this time and can continue to monitor blood pressure as an outpatient and adjust Should not be started back on ARB at this time From the respiratory standpoint she is quite stable I will stop Mucomyst She will need to go to rehab for at least a short period of time to get approved to have a ventilator at home with her and her mother From my standpoint whenever this has been set up can be discharged I am happy to follow-up with her as an outpatient for her renal function She should finish out a 14-day course of doxycycline for her MRSA pneumonia Please call with any further issues or needs Anne Gonzales DO * Yumiko Bonilla, PT - 10/31/2023 11:35 AM EST Physical Therapy Physical Therapy Evaluation Patient Name: Vj Myers Today's Date: 10/31/2023 Time Calculation Start Time: 932 Stop Time: 941 Time Calculation (min): 9 min Assessment/Plan Skilled PT intervention is indicated due to patient presents with deficits in bed mobility, transfers, gait, stair negotiation, strength, activity tolerance, and safety awareness. Patient would benefit from intervention to improve strength and mobility. Her ability to ambulate will be impacted by the amount and type of oxygen she is receiving and how long the tubing is. Due to her limited moblity due to device patient is at high risk for deterioration of strength and mobility PT Assessment PT Assessment Results: Decreased endurance, Decreased mobility, Decreased strength Rehab Prognosis: Good End of Session Communication: Bedside nurse End of Session Patient Position: Up in chair IP OR SWING BED PT PLAN Inpatient or Swing Bed: Inpatient PT Plan PT Plan: Skilled PT PT Frequency: 4 times per week PT Discharge Recommendations: Moderate intensity level of continued care Subjective General Visit Information: General Reason for Referral: impaired mobility Referred By: Young Past Medical History Relevant to Rehab: chronic tracheostomy due to throat CA; depression, GERD, HTN, hypothyroid, hyperlipidemia, kidney disease, insomina, LS radiculopthy, mastoiditis, sacroiliits Family/Caregiver Present: No Prior to Session Communication: Bedside nurse (ok to proceed with PT) Patient Position Received: Up in chair, Alarm off, not on at start of session General Comment: patient awake in chair on arrival agreeable to getting up with PT. Home Living: Home Living Type of Home: House Lives With: Spouse, Dependent children Home Layout: One level Home Access: Level entry Prior Level of Function: Prior Function Per Pt/Caregiver Report Level of [place]: Independent with ADLs and functional transfers, Independent with homemaking with ambulation ADL Assistance: Independent Homemaking Assistance: Independent Ambulatory Assistance: Independent Prior Function Comments: independent all ADLS, cooks, cleans, doesn't drive Precautions: Precautions Medical Precautions: Oxygen therapy device and L/min (tracheaostomy, oxygen via mask over trach) Vital Signs: Vital Signs SpO2: 97 % Objective Pain: Pain Assessment Pain Assessment: 0-10 Pain Score: 0 - No pain Cognition: Cognition Overall Cognitive Status: Within Functional Limits General Assessments: Activity Tolerance Endurance: Endurance does not limit participation in activity Strength Strength Comments: LEs grossly 4+/5 Postural Control Postural Control: Within Functional Limits Static Sitting Balance Static Sitting-Balance Support: No upper extremity supported, Feet supported Static Sitting-Level of Assistance: Independent Dynamic Standing Balance Dynamic Standing-Balance Support: No upper extremity supported Dynamic Standing-Balance: Turning Dynamic Standing-Comments: SBA Functional Assessments: Bed Mobility Bed Mobility: (patient already OOB with nurse earlier. patient states she did not need assist to get OOB) Transfers Transfer: Yes Transfer 1 Transfer From 1: Sit to, Stand to Transfer to 1: Stand, Sit Technique 1: Sit to stand, Stand to sit Transfer Device 1: (none) Transfer Level of Assistance 1: Close supervision Ambulation/Gait Training Ambulation/Gait Training Performed: Yes Ambulation/Gait Training 1 Surface 1: Level tile Device 1: No device Assistance 1: Close supervision Comments/Distance (ft) 1: limited ability to ambulate due to mask/tubing is short over trach; ambulated 7' total Outcome Measures: [facility] Basic Mobility Turning from your back to your side while in a flat bed without using bedrails: A little Moving from lying on your back to sitting on the side of a flat bed without using bedrails: A little Moving to and from bed to chair (including a wheelchair): A little Standing up from a chair using your arms (e.g. wheelchair or bedside chair): A little To walk in hospital room: A little Climbing 3-5 steps with railing: A little Basic Mobility - Total Score: 18 Encounter Problems Encounter Problems (Active) PT Problem PT Goal 1 Start: 10/31/23 Expected End: 11/13/23 Vj Myers will be independent with bed mobility for supine to and from sitting EOB without useof rail PT Goal 2 Start: 10/31/23 Expected End: 11/13/23 Vj Myers will transfer sit to and from stand independently PT Goal 3 Start: 10/31/23 Expected End: 11/13/23 Vj Myers will ambulate 100 ft level surface, good balance, steady Indep Pain - Adult Education Documentation No documentation found. Education Comments No comments found. * Karsten Funes MD - 10/31/2023 11:10 AM EST Vj Myers is a 53 y.o. female on day 8 of admission presenting with Pneumonia due to gram-negative bacteria. Subjective Patient seen in room, sitting in chair. Comfortable. Slept well. Denies any further complaints. Per nursing when RT was clearing trach she had some blood. Objective Last Recorded Vitals BP (!) 148/91 Pulse 97 Temp 36.3 C (97.3 F) (Temporal) Resp 20 Wt 103 kg (226 lb 3.1 oz) SpO2 97% Intake/Output last 3 Shifts: Intake/Output Summary (Last 24 hours) at 10/31/2023 1110 Last data filed at 10/31/2023 0900 Gross per 24 hour Intake 1080 ml Output 2 ml Net 1078 ml Admission Weight Weight: 81.6 kg (180 lb) (10/22/232031) Daily Weight 10/28/23 : 103 kg (226 lb 3.1 oz) Image Results Electrocardiogram, 12-lead PRN ACS symptoms Long RP tachycardia (sinus vs atrial) Low voltage QRS Borderline ECG When compared with ECG of 22-OCT-2023 20:36, Previous ECG has undetermined rhythm, needs review Confirmed by Grey Avilez ([id number]) on 10/25/2023 2:18:59 PM Physical Exam Constitutional: Appearance: Normal appearance. HENT: Head: Normocephalic and atraumatic. Right Ear: External ear normal. Left Ear: External ear normal. Nose: Nose normal. Mouth/Throat: Mouth: Mucous membranes are moist. Pharynx: Oropharynx is clear. Eyes: Extraocular Movements: Extraocular movements intact. Conjunctiva/sclera: Conjunctivae normal. Pupils: Pupils are equal, round, and reactive to light. Neck: Comments: Tracheostomy in place Cardiovascular: Rate and Rhythm: Normal rate and regular rhythm. Pulmonary: Effort: Pulmonary effort is normal. Breath sounds: Rhonchi present. Abdominal: General: Abdomen is flat. Palpations: Abdomen is soft. Skin: General: Skin is warm and dry. Neurological: General: No focal deficit present. Mental Status: She is alert and oriented to person, place, and time. Psychiatric: Mood and Affect: Mood normal. Behavior: Behavior normal. Assessment/Plan This patient currently has cardiac telemetry ordered; if you would like to modify or discontinue the telemetry order, click here to go to the orders activity to modify/discontinue the order. Principal Problem: Pneumonia due to gram-negative bacteria Acute respiratory failure with hypercapnia and hypoxia New sinus tachycardia, EKG shows tachycardia in the 152, low voltage QRS.. Hyponatremia Metabolic encephalopathy History of MRSA positive Acute renal failure Hypomagnesemia Chronic alcohol abuse Hypothyroidism. Plan Continue current management. Bronchoscopy was clean, small clean edge in the left side. Continue oral doxycycline.10/28. Amlodipine was increased to 10 mg daily, Coreg. Had hydralazine as needed. Blood pressures running high, resume home amlodipine, Coreg, Continue electric organ checker, currently improved to 105. Resume home Coreg. Started on sodium bicarb 650 mg twice a day. Stopped Levophed, 5, Midodrine . Blood pressure systolic 130s. Magnesium supplement per protocol. Senior Net Software Engineer managing ventilator settings. Azithromycin DC'd, on IV vancomycin, cultures show gram-positive cocci, MRSA screen positive. Zosyn DC'd. Sputum culture shows gram-positive cocci with MRSA screen positive. On IV thiamine, folate. On levothyroxine home dose. Labs in AM. Continue PT and OT, possible skilled care facility to continue with rehab. DVT prophylaxis on heparin. CODE STATUS full. Disposition in a.m. to F. Total time spent 30 minutes. Karsten Davila MD * Ilana Jackson, PT - 10/30/2023 4:55 PM EST Physical Therapy Therapy Communication Note Patient Name: Vj Myers Today's Date: 10/30/2023 Discipline: Physical Therapy Missed Visit Reason: Missed Visit Reason: Other (Comment) (Per RN, pt just returned from bronchoscopy. Pt noted to have BP 146/127. Will reattempt as able when medically appropriate.) Missed Time: Attempt * BEST Mock - 10/30/2023 2:00 PM EST Pt reviewed during Care Rounds today- she is ready for discharge; however, next site of care who can managed vent care will not have a bed until Monday. SW met with pt and significant other to review the discharge plan. Pt confirms her desires to discharge to [facility]. Updates attached in CarePort. Care Transitions will continue to follow. BEST Mock * Karsten Funes MD - 10/30/2023 12:08 PM EST Vj Myers is a 53 y.o. female on day 7 of admission presenting with Pneumonia due to gram-negative bacteria. Subjective Patient seen and examined at the bedside this morning She is resting comfortably in the chair. Gave consent for the bronchoscopy The bloody sputum has decreased No other major issues or events noted at this time Objective Last Recorded Vitals BP (!) 142/102 Pulse 90 Temp 36.1 C (97 F) (Temporal) Resp 16 Wt 103 kg (226 lb 3.1 oz) SpO2 99% Intake/Output last 3 Shifts: Intake/Output Summary (Last 24 hours) at 10/30/2023 1208 Last data filed at 10/30/2023 1000 Gross per 24 hour Intake 840 ml Output -- Net 840 ml Admission Weight Weight: 81.6 kg (180 lb) (10/22/232031) Daily Weight 10/28/23 : 103 kg (226 lb 3.1 oz) Image Results Electrocardiogram, 12-lead PRN ACS symptoms Long RP tachycardia (sinus vs atrial) Low voltage QRS Borderline ECG When compared with ECG of 22-OCT-2023 20:36, Previous ECG has undetermined rhythm, needs review Confirmed by Grey Avilez ([id number]) on 10/25/2023 2:18:59 PM Physical Exam Constitutional: Appearance: Normal appearance. HENT: Head: Normocephalic and atraumatic. Right Ear: External ear normal. Left Ear: External ear normal. Nose: Nose normal. Mouth/Throat: Mouth: Mucous membranes are moist. Pharynx: Oropharynx is clear. Eyes: Extraocular Movements: Extraocular movements intact. Conjunctiva/sclera: Conjunctivae normal. Pupils: Pupils are equal, round, and reactive to light. Neck: Comments: Tracheostomy in place Cardiovascular: Rate and Rhythm: Normal rate and regular rhythm. Pulmonary: Effort: Pulmonary effort is normal. Breath sounds: Rhonchi present. Abdominal: General: Abdomen is flat. Palpations: Abdomen is soft. Skin: General: Skin is warm and dry. Neurological: General: No focal deficit present. Mental Status: She is alert and oriented to person, place, and time. Psychiatric: Mood and Affect: Mood normal. Behavior: Behavior normal. Assessment/Plan This patient currently has cardiac telemetry ordered; if you would like to modify or discontinue the telemetry order, click here to go to the orders activity to modify/discontinue the order. Principal Problem: Pneumonia due to gram-negative bacteria Acute respiratory failure with hypercapnia and hypoxia New sinus tachycardia, EKG shows tachycardia in the 152, low voltage QRS.. Hyponatremia Metabolic encephalopathy History of MRSA positive Acute renal failure Hypomagnesemia Chronic alcohol abuse Hypothyroidism. Plan Bronchoscopy was clean, small clean edge in the left side. Continue oral doxycycline.10/28. Amlodipine was increased to 10 mg daily, Coreg. Had hydralazine as needed. Blood pressures running high, resume home amlodipine, Coreg, Continue electric organ checker, currently improved to 105. Resume home Coreg. Started on sodium bicarb 650 mg twice a day. Stopped Levophed, 5, Midodrine . Blood pressure systolic 130s. Magnesium supplement per protocol. Senior Net Software Engineer managing ventilator settings. Azithromycin DC'd, on IV vancomycin, cultures show gram-positive cocci, MRSA screen positive. Zosyn DC'd. Sputum culture shows gram-positive cocci with MRSA screen positive. On IV thiamine, folate. On levothyroxine home dose. Labs in AM. Continue PT and OT, possible skilled care facility to continue with rehab. DVT prophylaxis on heparin. CODE STATUS full. Disposition in postprocedure bronchoscopy in a.m., pending insurance approval patient can be transferred to a skilled care facility/home health care with ventilator. Total time spent 30 minutes. Karsten Davila MD * Anne Gonzales DO - 10/30/2023 8:59 AM EST Vj Myers is a 53 y.o. female on day 7 of admission presenting with Pneumonia due to gram-negative bacteria. Subjective Patient seen and examined at the bedside this morning She is resting comfortably in the Gave consent for the bronchoscopy The bloody sputum has decreased No other major issues or events noted at this time Objective Vitals 24HR Heart Rate: [84-137] Temp: [36.4 C (97.5 F)-37 C (98.6 F)] Resp: [10-28] BP: (137-188)/(82-169) SpO2: [94 %-100 %] Intake/Output last 3 Shifts: Intake/Output Summary (Last 24 hours) at 10/30/2023 0859 Last data filed at 10/30/2023 0750 Gross per 24 hour Intake 480 ml Output -- Net 480 ml Physical Exam Constitutional: Appearance: Normal appearance. HENT: Head: Normocephalic and atraumatic. Right Ear: External ear normal. Left Ear: External ear normal. Nose: Nose normal. Mouth/Throat: Mouth: Mucous membranes are moist. Pharynx: Oropharynx is clear. Eyes: Extraocular Movements: Extraocular movements intact. Conjunctiva/sclera: Conjunctivae normal. Pupils: Pupils are equal, round, and reactive to light. Neck: Comments: Tracheostomy in place Cardiovascular: Rate and Rhythm: Normal rate and regular rhythm. Pulmonary: Effort: Pulmonary effort is normal. Breath sounds: Rhonchi present. Abdominal: General: Abdomen is flat. Palpations: Abdomen is soft. Skin: General: Skin is warm and dry. Neurological: General: No focal deficit present. Mental Status: She is alert and oriented to person, place, and time. Psychiatric: Mood and Affect: Mood normal. Behavior: Behavior normal. Relevant Results Assessment/Plan This patient currently has cardiac telemetry ordered; if you would like to modify or discontinue the telemetry order, click here to go to the orders activity to modify/discontinue the order. 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 Chronic hypoxemic respiratory failure Multiple sclerosis Acute renal failure: Seems to have peaked and now improving Hemoptysis Plan: Please see bronchoscopy report At this time she is quite stable at night on the ventilator and during the day on a cool aerosol Discussed with her mother At this time she really wants to go home We are trying to see if she can be set up for a ventilator at home Respiratory and social work working on this Other option is [facility] however patient apparently does not really want to go there Continue doxycycline currently as she is on Renal function is stable has not improved totally but will need to continue to watch We will continue to monitor and follow at this time Continue off of any nephrotoxic agents Will need close follow-up I spent 30 minutes of critical care time directly involved in patient care excluding any billable procedures Anne Gonzales DO * Karsten Funes MD - 10/29/2023 10:40 AM EST Vj Myers is a 53 y.o. female on day 6 of admission presenting with Pneumonia due to gram-negative bacteria. Subjective Patient seen in room, resting in bed. Resting comfortable. Breathing better. Denies any fevers or chills. Able to ambulate from the bed to the chair. Objective Last Recorded Vitals BP 145/76 (BP Location: Right arm, Patient Position: Lying) Pulse 83 Temp 36.8 C (98.2 F) (Temporal) Resp 12 Wt 103 kg (226 lb 3.1 oz) SpO2 95% Intake/Output last 3 Shifts: Intake/Output Summary (Last 24 hours) at 10/29/2023 1040 Last data filed at 10/28/2023 1800 Gross per 24 hour Intake -- Output 700 ml Net -700 ml Admission Weight Weight: 81.6 kg (180 lb) (10/22/232031) Daily Weight 10/28/23 : 103 kg (226 lb 3.1 oz) Image Results Electrocardiogram, 12-lead PRN ACS symptoms Long RP tachycardia (sinus vs atrial) Low voltage QRS Borderline ECG When compared with ECG of 22-OCT-2023 20:36, Previous ECG has undetermined rhythm, needs review Confirmed by Grey Avilez ([id number]) on 10/25/2023 2:18:59 PM Physical Exam Constitutional: General: She is not in acute distress. Appearance: Awake, alert. Comments: Oriented x 4. HENT: Mouth/Throat: Pharynx: Oropharynx is clear. Comments: Tracheostomy in place. Ventilator connected. Eyes: Pupils: Pupils are equal, round, and reactive to light. Cardiovascular: Rate and Rhythm: Normal rate and regular rhythm. Heart sounds: Normal heart sounds. Pulmonary: Breath sounds: Improved air entry with occasional expiratory wheeze. Fine crackles in bases. Abdominal: General: Abdomen is flat. Bowel sounds are normal. There is no distension. Palpations: Abdomen is soft. Tenderness: There is no abdominal tenderness. Musculoskeletal: General: No swelling. Skin: General: Skin is warm. Neurological: General: No focal deficit present. Psychiatric: Mood and Affect: Mood normal. Behavior: Behavior normal. Thought Content: Thought content normal. Judgment: Judgment normal. Assessment/Plan This patient currently has cardiac telemetry ordered; if you would like to modify or discontinue the telemetry order, click here to go to the orders activity to modify/discontinue the order. Principal Problem: Pneumonia due to gram-negative bacteria Acute respiratory failure with hypercapnia and hypoxia New sinus tachycardia, EKG shows tachycardia in the 152, low voltage QRS.. Hyponatremia Metabolic encephalopathy History of MRSA positive Acute renal failure Hypomagnesemia Chronic alcohol abuse Hypothyroidism. Plan Schedule for bronchoscopy in AM. Continue oral doxycycline.10/28. Amlodipine was increased to 10 mg daily, Coreg. Had hydralazine as needed. currently switched to doxycycline. Vancomycin stopped. Blood pressures running high, resume home amlodipine, Coreg, Continue electric organ checker, currently improved to 105. Resume home Coreg. Started on sodium bicarb 650 mg twice a day. Stopped Levophed, 5, Midodrine . Blood pressure systolic 130s. Magnesium supplement per protocol. Senior Net Software Engineer managing ventilator settings. Azithromycin DC'd, on IV vancomycin, cultures show gram-positive cocci, MRSA screen positive. Zosyn DC'd. Sputum culture shows gram-positive cocci with MRSA screen positive. On IV thiamine, folate. On levothyroxine home dose. Labs in AM. Continue PT and OT, possible skilled care facility to continue with rehab. DVT prophylaxis on heparin. CODE STATUS full. Disposition in postprocedure bronchoscopy in a.m., pending insurance approval patient can be transferred to a [facility]. Total time spent 30 minutes. Karsten Davila MD * Anne Gonzales, DO - 10/29/2023 9:47 AM EST Vj Myers is a 53 y.o. female on day 6 of admission presenting with Pneumonia due to gram-negative bacteria. Subjective Patient seen and examined at the bedside this morning She is resting comfortably in bed Tolerating pressure support through the night with the ventilator Still has some blood being suctioned from her trach Objective Vitals 24HR Heart Rate: [83-105] Temp: [36.2 C (97.2 F)-36.8 C (98.2 F)] Resp: [11-22] BP: (115-145)/(66-92) SpO2: [93 %-99 %] Intake/Output last 3 Shifts: Intake/Output Summary (Last 24 hours) at 10/29/2023 0947 Last data filed at 10/28/2023 1800 Gross per 24 hour Intake -- Output 700 ml Net -700 ml Physical Exam Constitutional: Appearance: Normal appearance. HENT: Head: Normocephalic and atraumatic. Right Ear: External ear normal. Left Ear: External ear normal. Nose: Nose normal. Mouth/Throat: Mouth: Mucous membranes are moist. Pharynx: Oropharynx is clear. Eyes: Extraocular Movements: Extraocular movements intact. Conjunctiva/sclera: Conjunctivae normal. Pupils: Pupils are equal, round, and reactive to light. Neck: Comments: Tracheostomy in place Cardiovascular: Rate and Rhythm: Normal rate and regular rhythm. Pulmonary: Effort: Pulmonary effort is normal. Breath sounds: Rhonchi present. Abdominal: General: Abdomen is flat. Palpations: Abdomen is soft. Skin: General: Skin is warm and dry. Neurological: General: No focal deficit present. Mental Status: She is alert and oriented to person, place, and time. Psychiatric: Mood and Affect: Mood normal. Behavior: Behavior normal. Relevant Results Assessment/Plan This patient currently has cardiac telemetry ordered; if you would like to modify or discontinue the telemetry order, click here to go to the orders activity to modify/discontinue the order. Scheduled medications acetylcysteine, 3 mL, nebulization, 4x daily amLODIPine, 10 mg, oral, Daily atorvastatin, 20 mg, oral, Nightly carvedilol, 6.25 mg, oral, BID doxycycline, 100 mg, oral, q12h CESIA folic acid, 1 mg, oral, Daily ipratropium-albuteroL, 3 mL, nebulization, 4x daily levothyroxine, 137 mcg, oral, Daily liothyronine, 5 mcg, oral, Daily magnesium oxide, 400 mg, oral, Daily mupirocin, 1 Application, Topical, BID pantoprazole, 40 mg, oral, Daily before breakfast predniSONE, 40 mg, oral, Daily sodium bicarbonate, 650 mg, oral, BID thiamine, 100 mg, intravenous, Daily Continuous medications PRN medications PRN medications: acetaminophen OR acetaminophen OR acetaminophen, LORazepam, magnesium hydroxide, ondansetron ODT OR ondansetron, oxygen, oxygen Principal Problem: Pneumonia due to gram-negative bacteria Pneumonia due to gram-negative bacteria MRSA pneumonia History 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 Chronic hypoxemic respiratory failure Multiple sclerosis Acute renal failure: Seems to have peaked and now improving Hemoptysis Plan: At this time her respiratory status seems quite good with current settings She is still having bloody secretions and so we will go ahead and plan a bronchoscopy tomorrow I will discontinue sodium bicarbonate replacement Her renal function as expected from yesterday appears to have peaked and is now moving in a positive direction Continue her medical management as she is on She is currently on doxycycline oral for her MRSA pneumonia Respiratory is working on getting her set up to have a ventilator at home as their goal is to go home Consult physical therapy I spent 30 minutes of critical care time directly involved in patient care excluding any billable procedures Anne Gonzales DO * ANNA Mock-Hussein - 10/28/2023 3:30 PM EST Pt reviewed during Care Rounds today; not ready for discharge. Anticipate pt will be ready for discharge sometime next week. She'll likely have a bronchoscopy Monday with Dr. Gonzales. SW met with pt and significant other at the bedside to review the plan. Pt sleeping, but awakes easily. She does consent to placement at [facility] while RT and her family are coordinating a home ventilator. [facility] may not have a bed available until [facility]01[facility] Care Transitions will continue to follow. BEST Mock * Karsten Funes MD - 10/28/2023 11:15 AM EST Vj Myers is a 53 y.o. female on day 5 of admission presenting with Pneumonia due to gram-negative bacteria. Subjective Patient seen in room, sitting in chair. Resting comfortable. Breathing better. Denies any fevers orchills. Able to ambulate from the bed to the chair. Objective Last Recorded Vitals BP (!) 142/98 (BP Location: Right arm, Patient Position: Lying) Pulse 82 Temp 36.1 C (97 F) (Temporal) Resp 12 Wt 103 kg (226 lb 3.1 oz) SpO2 96% Intake/Output last 3 Shifts: Intake/Output Summary (Last 24 hours) at 10/28/2023 1115 Last data filed at 10/28/2023 0600 Gross per 24 hour Intake 1020 ml Output 376 ml Net 644 ml Admission Weight Weight: 81.6 kg (180 lb) (10/22/232031) Daily Weight 10/28/23 : 103 kg (226 lb 3.1 oz) Image Results Electrocardiogram, 12-lead PRN ACS symptoms Long RP tachycardia (sinus vs atrial) Low voltage QRS Borderline ECG When compared with ECG of 22-OCT-2023 20:36, Previous ECG has undetermined rhythm, needs review Confirmed by Grey Avilez ([id number]) on 10/25/2023 2:18:59 PM Physical Exam Constitutional: General: She is not in acute distress. Appearance: Awake, alert. Comments: Oriented x 4. HENT: Mouth/Throat: Pharynx: Oropharynx is clear. Comments: Tracheostomy in place. Ventilator connected. Eyes: Pupils: Pupils are equal, round, and reactive to light. Cardiovascular: Rate and Rhythm: Normal rate and regular rhythm. Heart sounds: Normal heart sounds. Pulmonary: Breath sounds: Improved air entry with occasional expiratory wheeze. Fine crackles in bases. Abdominal: General: Abdomen is flat. Bowel sounds are normal. There is no distension. Palpations: Abdomen is soft. Tenderness: There is no abdominal tenderness. Musculoskeletal: General: No swelling. Skin: General: Skin is warm. Neurological: General: No focal deficit present. Psychiatric: Mood and Affect: Mood normal. Behavior: Behavior normal. Thought Content: Thought content normal. Judgment: Judgment normal. Assessment/Plan This patient currently has cardiac telemetry ordered; if you would like to modify or discontinue the telemetry order, click here to go to the orders activity to modify/discontinue the order. Principal Problem: Pneumonia due to gram-negative bacteria Acute respiratory failure with hypercapnia and hypoxia New sinus tachycardia, EKG shows tachycardia in the 152, low voltage QRS.. Hyponatremia Metabolic encephalopathy History of MRSA positive Acute renal failure Hypomagnesemia Chronic alcohol abuse Hypothyroidism. Plan Switch to oral doxycycline.10/28. Amlodipine was increased to 10 mg daily, Coreg. Had hydralazine as needed. currently switched to doxycycline. Vancomycin stopped. Blood pressures running high, resume home amlodipine, Coreg, Continue electric organ checker, currently improved to 105. Resume home Coreg. Started on sodium bicarb 650 mg twice a day. Stopped Levophed, 5, Midodrine . Blood pressure systolic 130s. Magnesium supplement per protocol. Senior Net Software Engineer managing ventilator settings. Azithromycin DC'd, on IV vancomycin, cultures show gram-positive cocci, MRSA screen positive. Zosyn DC'd. Sputum culture shows gram-positive cocci with MRSA screen positive. On IV thiamine, folate. Possible bronchoscopy today. On levothyroxine home dose. Labs in AM. Continue PT and OT, possible skilled care facility to continue with rehab. DVT prophylaxis on heparin. CODE STATUS full. Disposition in 1 to 2 days. Total critical care time spent 30 minutes. Karsten Davila MD * Anne Gonzales DO - 10/28/2023 7:29 AM EST Vj Myers is a 53 y.o. female on day 5 of admission presenting with Pneumonia due to gram-negative bacteria. Subjective Patient seen and examined at bedside this morning She is resting comfortably in bed Tolerating ventilator well Still having bloody suctioning through her trach Objective Vitals 24HR Heart Rate: [79-100] Temp: [36.2 C (97.2 F)-36.6 C (97.9 F)] Resp: [14-21] BP: (138-159)/(92-100) Weight: [103 kg (226 lb 3.1 oz)] SpO2: [92 %-99 %] Intake/Output last 3 Shifts: Intake/Output Summary (Last 24 hours) at 10/28/2023 0729 Last data filed at 10/28/2023 0600 Gross per 24 hour Intake 1400 ml Output 376 ml Net 1024 ml Physical Exam Constitutional: Appearance: Normal appearance. HENT: Head: Normocephalic and atraumatic. Right Ear: External ear normal. Left Ear: External ear normal. Nose: Nose normal. Mouth/Throat: Mouth: Mucous membranes are moist. Pharynx: Oropharynx is clear. Eyes: Extraocular Movements: Extraocular movements intact. Conjunctiva/sclera: Conjunctivae normal. Pupils: Pupils are equal, round, and reactive to light. Neck: Comments: Tracheostomy in place Cardiovascular: Rate and Rhythm: Normal rate and regular rhythm. Pulmonary: Effort: Pulmonary effort is normal. Breath sounds: Rhonchi present. Abdominal: General: Abdomen is flat. Palpations: Abdomen is soft. Skin: General: Skin is warm and dry. Neurological: General: No focal deficit present. Mental Status: She is alert and oriented to person, place, and time. Psychiatric: Mood and Affect: Mood normal. Behavior: Behavior normal. Relevant Results Assessment/Plan This patient currently has cardiac telemetry ordered; if you would like to modify or discontinue the telemetry order, click here to go to the orders activity to modify/discontinue the order. 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 Chronic hypoxemic respiratory failure Multiple sclerosis Acute renal failure Normal anion gap metabolic acidosis: Improved with bicarb therapy Hemoptysis Plan: At this time she is doing quite well with her respiratory status Her desire and her family's desire is for her to go home Respiratory is starting to work on a ventilator for her at home I will consult physical therapy She lost her IV access has an IV down in her foot We will change her doxycycline to oral and we will also change her Ativan to oral It appears at this time that her renal function is starting to peak We have her off of nephrotoxic agents Will continue to follow renal function closely She continues to have hemoptysis We will plan a bronchoscopy to make sure we are not missing anything on Monday I spent 30 minutes of critical care time directly involved in patient care excluding billable procedures Anne Gonzales DO * Karsten Funes MD - 10/27/2023 11:37 AM EST Vj Myers is a 53 y.o. female on day 4 of admission presenting with Pneumonia due to gram-negative bacteria. Subjective Patient seen in room, sitting in chair. Resting comfortable. States her breathing is improved, occasional cough. Continues to have bloody secretions. Denies any fevers or chills. Able to ambulate from the bed to the chair. Using bedside commode. Per nursing, continues to have some blood around the trachea. Objective Last Recorded Vitals BP (!) 147/92 Pulse 90 Temp 36.4 C (97.5 F) (Temporal) Resp 17 Wt 97.6 kg (215 lb 2.7 oz) SpO2 94% Intake/Output last 3 Shifts: Intake/Output Summary (Last 24 hours) at 10/27/2023 1137 Last data filed at 10/27/2023 0839 Gross per 24 hour Intake 500 ml Output 250 ml Net 250 ml Admission Weight Weight: 81.6 kg (180 lb) (10/22/232031) Daily Weight 10/26/23 : 97.6 kg (215 lb 2.7 oz) Image Results Electrocardiogram, 12-lead PRN ACS symptoms Long RP tachycardia (sinus vs atrial) Low voltage QRS Borderline ECG When compared with ECG of 22-OCT-2023 20:36, Previous ECG has undetermined rhythm, needs review Confirmed by Grey Avilez ([id number]) on 10/25/2023 2:18:59 PM Physical Exam Constitutional: General: She is not in acute distress. Appearance: Awake, alert. Comments: Oriented x 4. HENT: Mouth/Throat: Pharynx: Oropharynx is clear. Comments: Tracheostomy in place. Ventilator connected. Eyes: Pupils: Pupils are equal, round, and reactive to light. Cardiovascular: Rate and Rhythm: Normal rate and regular rhythm. Heart sounds: Normal heart sounds. Pulmonary: Breath sounds: Improved air entry with occasional expiratory wheeze. Fine crackles in bases. Abdominal: General: Abdomen is flat. Bowel sounds are normal. There is no distension. Palpations: Abdomen is soft. Tenderness: There is no abdominal tenderness. Musculoskeletal: General: No swelling. Skin: General: Skin is warm. Neurological: General: No focal deficit present. Psychiatric: Mood and Affect: Mood normal. Behavior: Behavior normal. Thought Content: Thought content normal. Judgment: Judgment normal. Relevant Results Assessment/Plan This patient currently has cardiac telemetry ordered; if you would like to modify or discontinue the telemetry order, click here to go to the orders activity to modify/discontinue the order. Principal Problem: Pneumonia due to gram-negative bacteria Acute respiratory failure with hypercapnia and hypoxia New sinus tachycardia, EKG shows tachycardia in the 152, low voltage QRS.. Hyponatremia Metabolic encephalopathy History of MRSA positive Acute renal failure Hypomagnesemia Chronic alcohol abuse Hypothyroidism. Plan Amlodipine was increased to 10 mg daily, Coreg. Had hydralazine as needed. currently switched to doxycycline. Vancomycin stopped. Blood pressures running high, resume home amlodipine, Coreg, Continue electric organ checker, currently improved to 105. Resume home Coreg. Started on sodium bicarb 650 mg twice a day. Stopped Levophed, 5, Midodrine . Blood pressure systolic 130s. Magnesium supplement per protocol. Senior Net Software Engineer managing ventilator settings. Azithromycin DC'd, on IV vancomycin, cultures show gram-positive cocci, MRSA screen positive. Zosyn DC'd. Sputum culture shows gram-positive cocci with MRSA screen positive. On IV thiamine, folate. Possible bronchoscopy today. On levothyroxine home dose. Labs in AM. Continue PT and OT, possible skilled care facility to continue with rehab. DVT prophylaxis on heparin. CODE STATUS full. Disposition in 1 to 2 days. Total critical care time spent 30 minutes. Karsten Davila MD * TRACIE Godfrey - 10/27/2023 10:58 AM EST Per medical team, patient is not yet medically appropriate for discharge today; will likely requireanother 72 hours in the hospital. Business Loan Processor met with patient at bedside to review discharge plan. Patient confirmed same. SW sent updated notes to [facility] via [employer]. Plan for patient to discharge to [facility] for rehab in trach/vent capable unit when medically ready, pending bed availability at time of discharge--[facility] cannot guarantee bed availability before 13. If patient discharged prior to that time, patient will likely appeal as there is no other safe discharge plan that meets patient's complex medical needs. Care Transitions to follow and assist. TRACIE Sands * Anne Gonzales, DO - 10/27/2023 7:58 AM EST Vj Myers is a 53 y.o. female on day 4 of admission presenting with Pneumonia due to gram-negative bacteria. Subjective Patient seen and examined at the bedside this morning She is sitting comfortably in the bedside chair She is awake and alert Denies any major complaints She has still had quite a bit of suctioning with bloody secretions She is also having some blood around the stoma externally Objective Vitals 24HR Heart Rate: [72-122] Temp: [36.1 C (97 F)-36.5 C (97.7 F)] Resp: [12-22] BP: (128-159)/(79-101) Height: [160 cm (5' 3)] Weight: [97.6 kg (215 lb 2.7 oz)] SpO2: [90 %-99 %] Intake/Output last 3 Shifts: Intake/Output Summary (Last 24 hours) at 10/27/2023 1668 Last data filed at 10/26/2023 1945 Gross per 24 hour Intake 360 ml Output 250 ml Net 110 ml Physical Exam Constitutional: Appearance: Normal appearance. HENT: Head: Normocephalic and atraumatic. Right Ear: External ear normal. Left Ear: External ear normal. Nose: Nose normal. Mouth/Throat: Mouth: Mucous membranes are moist. Pharynx: Oropharynx is clear. Eyes: Extraocular Movements: Extraocular movements intact. Conjunctiva/sclera: Conjunctivae normal. Pupils: Pupils are equal, round, and reactive to light. Neck: Comments: Tracheostomy in place Cardiovascular: Rate and Rhythm: Normal rate and regular rhythm. Pulmonary: Effort: Pulmonary effort is normal. Breath sounds: Rhonchi present. Abdominal: General: Abdomen is flat. Palpations: Abdomen is soft. Skin: General: Skin is warm and dry. Neurological: General: No focal deficit present. Mental Status: She is alert and oriented to person, place, and time. Psychiatric: Mood and Affect: Mood normal. Behavior: Behavior normal. Scheduled medications acetylcysteine, 3 mL, nebulization, 4x daily amLODIPine, 10 mg, oral, Daily atorvastatin, 20 mg, oral, Nightly carvedilol, 6.25 mg, oral, BID folic acid, 1 mg, oral, Daily ipratropium-albuteroL, 3 mL, nebulization, 4x daily levothyroxine, 137 mcg, oral, Daily liothyronine, 5 mcg, oral, Daily magnesium oxide, 400 mg, oral, Daily mupirocin, 1 Application, Topical, BID pantoprazole, 40 mg, oral, Daily before breakfast predniSONE, 40 mg, oral, Daily sodium bicarbonate, 650 mg, oral, BID thiamine, 100 mg, intravenous, Daily [Held by provider] vancomycin, 750 mg, intravenous, q24h Continuous medications PRN medications PRN medications: acetaminophen OR acetaminophen OR acetaminophen, LORazepam, magnesium hydroxide, ondansetron ODT OR ondansetron, oxygen, oxygen Relevant Results Assessment/Plan This patient currently has cardiac telemetry ordered; if you would like to modify or discontinue the telemetry order, click here to go to the orders activity to modify/discontinue the order. Principal Problem: Pneumonia due to gram-negative bacteria Pneumonia with gram-positive cocci from bronchial wash Hyponatremia: Stable History 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 Chronic hypoxemic respiratory failure Multiple sclerosis History of MRSA positive with positive screen Acute renal failure Normal anion gap metabolic acidosis: Improved with bicarb therapy Hemoptysis Plan: At this time from the respiratory standpoint she seems pretty stable I did discuss with her that at this time she is going to need to keep the tracheostomy in place andwill likely have to follow-up as an outpatient with ENT/ laryngoscopist. At this time she is on vancomycin being followed closely by pharmacy Vanco level is now in normal range and will need to be dosed appropriately Her renal function is still rising however I think she is likely peaking soon Her acidosis has improved with bicarbonate therapy We will continue bicarbonate therapy at this time Continue to follow renal function closely At this time we will keep her tracheostomy cuff inflated. We will see if this is able to tamponade her bleeding as the bleeding appears to be coming from the stoma site We will continue to follow closely She will be set up when ready for discharge to [facility] I spent 30 minutes of critical care time directly involved in patient care excluding any billable procedures Anne Gonzales DO * Geovanna Diaz RDN, LD - 10/26/2023 5:00 PM EST Nutrition Assessment Note Nutrition Assessment Reason for Assessment Reason for Assessment: Dietitian discretion (Vent dependent/tracheostomy/hx throat cancer, laryngectomy; Sepsis/PNA) History: Food and Nutrient History Energy Intake: Fair 50-75 % Food and Nutrient History: food/fluid preferences obtained by dietary staff/updated at meal rounds to encourage po intakes; eating better today but continues <75%; Vitamin/Herbal Supplement Use: none noted Anthropometrics: Height: 160 cm (5' 3) Weight: 97.6 kg (215 lb 2.7 oz) BMI (Calculated): 38.13 Weight Change Weight History / % Weight Change: 97.6 kg 10/23; 81.6 kg 10/22 (19% gain) Significant Weight Loss: No Significant Weight Gain: Fluid related (recieved 2900 ml fluid per I& Os) IBW/kg (Dietitian Calculated): 53 kg Percent of IBW: 187 % Adjusted Body Weight (kg): 75 kg Energy Needs: Calculated Energy Needs Using Equations Height: 160 cm (5' 3) Weight Used for Equation Calculations: 81.6 kg (180 lb) [place] Equation (Critically Ill Patients): 1963 Minute Ventilation (L/min): 24 L/min [place] Equation (Overweight or Obese Patients): 1391 Equation Chosen to Use by RD: (obese >30, age <60 years) Temp: 36.2 C (97.2 F) Estimated Protein Needs Total Protein Estimated Needs (g): 75 g Total Protein Estimated Needs (g/kg): 1 g/kg Type of Protein Needed: oral diet, oral supplementation Method for Estimating Needs: 1 g/75 kg adjusted body weight Estimated Fluid Needs Total Fluid Estimated Needs (mL): 1963 mL Method for Estimating Needs: 1 ml/kcal/day Nutrition Focused Physical Findings: Subcutaneous Fat Loss Orbital Fat Pads: Defer (declined by patient) Nutrition Diagnosis Malnutrition Diagnosis Patient has Malnutrition Diagnosis: No Patient has Nutrition Diagnosis: Yes Nutrition Diagnosis 1: Obese Diagnosis Status (1): Ongoing Related to (1): high BMI at admission As Evidenced by (1): BMI >38, weight >200# Additional Assessment Information (1): history MS, chronic alcohol abuse, throat cancer (oral/lip/pharyangeal s/p laryngectomy w/current tracheostomyon vent Nutrition Diagnosis 2: Altered nutrition related to laboratory values Diagnosis Status (2): New Related to (2): sepsis/PNA withAntibiotic therapy; acute on chronic respiratory failure As Evidenced by (2): elevated WBC, low H/H, low albumin, low calcium. hyponatremia; high BUN/Creat/low eGFR; low albumin/total protein Additional Assessment Information (2): hyponatremia stable; hypomagnesium resolved Nutrition Interventions/Recommendations Nutrition Prescription Individualized Nutrition Prescription Provided for : Adult cardiac diet (low fat, low sodium); add Ensure plus high protein twice daily supplement Food and/or Nutrient Delivery Interventions Interventions: Meals and snacks, Medical food supplement Meals and Snacks: Fat-modified diet, Mineral-modified diet Goal: Will consume 50-75% at meals Medical Food Supplement: Commercial beverage Goal: will consume 75% of commercial supplements Coordination of Nutrition Care by a Nutrition Professional Collaboration and Referral of Nutrition Care: Collaboration by nutrition professional with other providers Nutrition Monitoring and Evaluation Food and Nutrient Related History Amount of Food: Medical food intake Criteria: Will consume at least 50-75% at meals Anthropometrics: Body Composition/Growth/Weight History Weight: Measured weight Criteria: weight <215# Body Mass: Body mass index (BMI) Criteria: BMI <38 Biochemical Data, Medical Tests and Procedures Electrolyte and Renal Panel: BUN, Calcium, serum, Chloride, Creatinine, Magnesium, Potassium, Sodium, Other (Comment) (Albumin, total protein) Criteria: Labs WNL Glucose/Endocrine Profile: Glucose, casual Criteria: Labs WNL Nutritional Anemia Profile: Hematocrit, Hemoglobin Criteria: Labs WNL Follow Up Time Spent (min): 50 minutes Follow up: Provided inpatient RDN contact information Last Date of Nutrition Visit: 10/26/23 Nutrition Follow-Up Needed?: Dietitian to reassess per policy * TRACIE Godfrey - 10/26/2023 4:35 PM EST Per medical team, patient is not yet medically appropriate for discharge today; Dr. Gonzales is following, and hospitalist states that patient will likely need another 3 - 4 days in the hospital. SocialWorker spoke several times with [facility] and [facility] DON over the course of the day, [facility] will not have a trach/vent bed available until next Monday, 11-01. Given patient's complex needs, including need for trach/vent capable unit, and likely extended stay at [facility], this is the most reasonable plan for the time being. SW to review same with patient/family. SW/DSC to to continue to send updated notes to [facility] via [facility] as notes available. - 1740: SW spent time with patient who was upset about patient's situation. SW offered support and understanding. Patient denied any further questions this evening. SW to follow up with patient in the morning. Plan for patient to discharge to [facility] trach/vent unit when medically ready, pending bed availability at time of discharge. Care Transitions to follow and assist. TRACIE Sands * Anne Gonzales DO - 10/26/2023 1:22 PM EST Vj Myers is a 53 y.o. female on day 3 of admission presenting with Pneumonia due to gram-negative bacteria. Subjective Patient seen and examined at the bedside this morning She is resting comfortably in the bedside chair Has had some tachycardia at times She is awake and alert and answering questions well Objective Vitals 24HR Heart Rate: [81-122] Temp: [36 C (96.8 F)-36.5 C (97.7 F)] Resp: [14-31] BP: (130-158)/(79-104) SpO2: [92 %-99 %] Intake/Output last 3 Shifts: Intake/Output Summary (Last 24 hours) at 10/26/2023 1322 Last data filed at 10/26/2023 1247 Gross per 24 hour Intake 360 ml Output 1050 ml Net -690 ml Physical Exam Constitutional: Appearance: Normal appearance. HENT: Head: Normocephalic and atraumatic. Right Ear: External ear normal. Left Ear: External ear normal. Nose: Nose normal. Mouth/Throat: Mouth: Mucous membranes are moist. Pharynx: Oropharynx is clear. Eyes: Extraocular Movements: Extraocular movements intact. Conjunctiva/sclera: Conjunctivae normal. Pupils: Pupils are equal, round, and reactive to light. Neck: Comments: Tracheostomy in place Cardiovascular: Rate and Rhythm: Normal rate and regular rhythm. Pulmonary: Effort: Pulmonary effort is normal. Breath sounds: Rhonchi present. Abdominal: General: Abdomen is flat. Palpations: Abdomen is soft. Skin: General: Skin is warm and dry. Neurological: General: No focal deficit present. Mental Status: She is alert and oriented to person, place, and time. Psychiatric: Mood and Affect: Mood normal. Behavior: Behavior normal. Relevant Results Assessment/Plan This patient currently has cardiac telemetry ordered; if you would like to modify or discontinue the telemetry order, click here to go to the orders activity to modify/discontinue the order. 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 Daigle and his input. I spent at least 30 minutes talking with him over the phone and he helped explain most of her situation She has a history of a laryngectomy and the plastic device we removed was likely in place for her tracheoesophageal fistula so that she could talk by blowing/sucking air through this This obviously was removed and a tracheostomy had to be placed due to her impending doom and failure At this time a tracheostomy is going to need to be left in place She needs respiratory support going forward She was having some hemoptysis At this time I would recommend that we continue to watch With her laryngectomy there is no opening cephalad and so at this time bleeding would be either from there at the stoma or below it. In discussion with Marija it is hard to tell as bleeding was likely present even before the cuff wasdeflated Currently there is no more suctioning of blood so we will continue to watch for now If it recurs then we will likely perform a bronchoscopy Her vancomycin level is still elevated and so vancomycin is being held She still has worsening renal failure likely multifactorial with her septic shock on presentation and then elevated vancomycin levels Her blood pressure is running a little on the high side. At this time it is actually fairly low on her risk at this time Losartan was restarted I will discontinue this especially with her acute renal failure and intrinsic renal dysfunction Would allow some permissive hypertension at this time Will continue to follow closely Anne Gonzales DO * Karsten Funes MD - 10/26/2023 12:06 PM EST Vj Myers is a 53 y.o. female on day 3 of admission presenting with Pneumonia due to gram-negative bacteria. Subjective Patient seen in room, sitting in chair. On ventilator through trach. More alert, oriented x 3. Has been having some secretions which has been suctioning. Denies any chest pain or fever. No nausea or vomiting. Feels a lot better today. Per nursing no other acute events through the night. Objective Last Recorded Vitals BP (!) 150/98 Pulse 105 Temp 36.5 C (97.7 F) (Temporal) Resp 20 Wt 97.6 kg (215 lb 2.7 oz) SpO2 96% Intake/Output last 3 Shifts: Intake/Output Summary (Last 24 hours) at 10/26/2023 1206 Last data filed at 10/26/2023 0943 Gross per 24 hour Intake 480 ml Output 1050 ml Net -570 ml Admission Weight Weight: 81.6 kg (180 lb) (10/22/232031) Daily Weight 10/23/23 : 97.6 kg (215 lb 2.7 oz) Image Results Electrocardiogram, 12-lead PRN ACS symptoms Long RP tachycardia (sinus vs atrial) Low voltage QRS Borderline ECG When compared with ECG of 22-OCT-2023 20:36, Previous ECG has undetermined rhythm, needs review Confirmed by Grey Avilez ([id number]) on 10/25/2023 2:18:59 PM Physical Exam Constitutional: General: She is not in acute distress. Appearance: Awake, alert. Comments: Oriented x 4. HENT: Mouth/Throat: Pharynx: Oropharynx is clear. Comments: Tracheostomy in place. Ventilator connected. Eyes: Pupils: Pupils are equal, round, and reactive to light. Cardiovascular: Rate and Rhythm: Normal rate and regular rhythm. Heart sounds: Normal heart sounds. Pulmonary: Breath sounds: Improved air entry with occasional expiratory wheeze. Fine crackles in bases. Abdominal: General: Abdomen is flat. Bowel sounds are normal. There is no distension. Palpations: Abdomen is soft. Tenderness: There is no abdominal tenderness. Musculoskeletal: General: No swelling. Skin: General: Skin is warm. Neurological: General: No focal deficit present. Psychiatric: Mood and Affect: Mood normal. Behavior: Behavior normal. Thought Content: Thought content normal. Judgment: Judgment normal. Assessment/Plan This patient currently has cardiac telemetry ordered; if you would like to modify or discontinue the telemetry order, click here to go to the orders activity to modify/discontinue the order. Principal Problem: Pneumonia due to gram-negative bacteria Acute respiratory failure with hypercapnia and hypoxia New sinus tachycardia, EKG shows tachycardia in the 152, low voltage QRS.. Hyponatremia Metabolic encephalopathy History of MRSA positive Acute renal failure Hypomagnesemia Chronic alcohol abuse Hypothyroidism. Plan Blood pressures running high, resume home amlodipine, Coreg, losartan, hydrochlorothiazide. Continue electric organ checker, currently improved to 105. Resume home Coreg. Started on sodium bicarb 650 mg twice a day. Stopped Levophed, 5, Midodrine . Blood pressure systolic 130s. Magnesium supplement per protocol. Senior Net Software Engineer managing ventilator settings. Azithromycin DC'd, on IV vancomycin, cultures show gram-positive cocci, MRSA screen positive. Zosyn DC'd. Sputum culture shows gram-positive cocci with MRSA screen positive. On IV thiamine, folate. Possible bronchoscopy today. On levothyroxine home dose. Labs in AM. PT, OT consult. DVT prophylaxis on heparin. CODE STATUS full. Disposition in 3 to 4 days. Total critical care time spent 30 minutes. Karsten Davila MD * Sharon Fox - 10/25/2023 2:04 PM EST Music Therapy Note Vj Myers was referred by Ilana Quintanilla RN. Therapy Session Referral Type: New referral this admission Visit Type: New visit Session Start Time: 1404 Session End Time: 1404 Intervention Delivery: In-person Conflict of Service: Asleep Treatment/Interventions Post-assessment Total Session Time (min): 0 minutes Narrative Assessment Detail: Pt asleep upon arrival of music therapist. Follow-up: MT will follow-up as applicable. Education Documentation No documentation found. * Karsten Funes MD - 10/25/2023 1:25 PM EST Vj Myers is a 53 y.o. female on day 2 of admission presenting with Pneumonia due to gram-negative bacteria. Subjective Patient seen in room, sitting in chair. On ventilator through trach. More alert, oriented x 3. Has been having some secretions which has been suctioning. Denies any chest pain or fever. No nausea or vomiting. Feels a lot better today. Per nursing no other acute events through the night. Objective Last Recorded Vitals BP 150/89 Pulse 110 Temp 36 C (96.8 F) (Temporal) Resp 21 Wt 97.6 kg (215 lb 2.7 oz) [id number]% Intake/Output last 3 Shifts: Intake/Output Summary (Last 24 hours) at 10/25/2023 1325 Last data filed at 10/25/2023 1306 Gross per 24 hour Intake 2930 ml Output -- Net 2930 ml Admission Weight Weight: 81.6 kg (180 lb) (10/22/232031) Daily Weight 10/23/23 : 97.6 kg (215 lb 2.7 oz) Image Results Electrocardiogram, 12-lead PRN ACS symptoms Sinus tachycardia Low voltage QRS Borderline ECG When compared with ECG of 22-OCT-2023 20:36, Previous ECG has undetermined rhythm, needs review Physical Exam Constitutional: General: She is not in acute distress. Appearance: Awake, alert. Comments: Oriented x 4. HENT: Mouth/Throat: Pharynx: Oropharynx is clear. Comments: Tracheostomy in place. Ventilator connected. Eyes: Pupils: Pupils are equal, round, and reactive to light. Cardiovascular: Rate and Rhythm: Normal rate and regular rhythm. Heart sounds: Normal heart sounds. Pulmonary: Breath sounds: Improved air entry with occasional expiratory wheeze. Fine crackles in bases. Abdominal: General: Abdomen is flat. Bowel sounds are normal. There is no distension. Palpations: Abdomen is soft. Tenderness: There is no abdominal tenderness. Musculoskeletal: General: No swelling. Skin: General: Skin is warm. Neurological: General: No focal deficit present. Psychiatric: Mood and Affect: Mood normal. Behavior: Behavior normal. Thought Content: Thought content normal. Judgment: Judgment normal. Relevant Results Assessment/Plan This patient currently has cardiac telemetry ordered; if you would like to modify or discontinue the telemetry order, click here to go to the orders activity to modify/discontinue the order. Principal Problem: Pneumonia due to gram-negative bacteria Acute respiratory failure with hypercapnia and hypoxia New sinus tachycardia, EKG shows tachycardia in the 152, low voltage QRS.. Hyponatremia Metabolic encephalopathy History of MRSA positive Acute renal failure Hypomagnesemia Chronic alcohol abuse Hypothyroidism. Plan Continue electric organ checker, currently improved to 110. Started on sodium bicarb 650 mg twice a day. Stopped Levophed, 5, Midodrine . Blood pressure systolic 130s. Magnesium supplement per protocol. Senior Net Software Engineer managing ventilator settings. Azithromycin DC'd, on IV vancomycin, cultures show gram-positive cocci, MRSA screen positive. Zosyn DC'd. Sputum culture shows gram-positive cocci with MRSA screen positive. On IV thiamine, folate. Possible bronchoscopy today. On levothyroxine home dose. Labs in AM. PT, OT consult. DVT prophylaxis on heparin. CODE STATUS full. Disposition in 3 to 4 days. Total critical care time spent 30 minutes. Karsten Davila MD * TRACIE Godfrey - 10/25/2023 12:32 PM EST Per medical team, patient is not yet medically appropriate for discharge today; Hospitalist hopes that patient will be appropriate for PT/OT evals today so that team can get a better sense of likely discharge needs. - 1245: Per hospitalist, patient is now agreeable to SNF. - 1340: Business Loan Processor met with patient and family in patient's room to review discharge plan. Patient using trach for oxygen, so was not speaking, but was able to nod yes/no to answer SW's questions.Patient agreeable to going to SNF for rehab. Patient/family agreed that it would be [facility], thought patient does not currently need vent. SW to send referral to [facility]. Care Transitions to follow and assist as needed. TRACIE Sands * Anne Gonzales DO - 10/25/2023 10:51 AM EST Vj Myers is a 53 y.o. female on day 2 of admission presenting with Pneumonia due to gram-negative bacteria. Subjective Patient seen and examined at the bedside this morning She is sitting comfortably in the bedside chair She is eating her breakfast well and drinking well Denies any pain She denies shortness of breath She is not able to talk with the tracheostomy that is currently in place When we occlude the tracheostomy she is not able to breeze so likely the trach is taking up her entire airway even with the cuff deflated Has no other major complaints at this time Objective Vitals 24HR Heart Rate: [73-99] Temp: [35.9 C (96.6 F)-36.1 C (97 F)] Resp: [14-28] BP: (77-130)/(57-91) SpO2: [96 %-100 %] Intake/Output last 3 Shifts: Intake/Output Summary (Last 24 hours) at 10/25/2023 1052 Last data filed at 10/25/2023 0800 Gross per 24 hour Intake 3184.96 ml Output -- Net 3184.96 ml Physical Exam Constitutional: Appearance: Normal appearance. HENT: Head: Normocephalic and atraumatic. Right Ear: External ear normal. Left Ear: External ear normal. Nose: Nose normal. Mouth/Throat: Mouth: Mucous membranes are moist. Pharynx: Oropharynx is clear. Eyes: Extraocular Movements: Extraocular movements intact. Conjunctiva/sclera: Conjunctivae normal. Pupils: Pupils are equal, round, and reactive to light. Neck: Comments: Tracheostomy in place Cardiovascular: Rate and Rhythm: Normal rate and regular rhythm. Pulmonary: Effort: Pulmonary effort is normal. Breath sounds: Normal breath sounds. Abdominal: General: Abdomen is flat. Palpations: Abdomen is soft. Musculoskeletal: General: Injury: .meds. Skin: General: Skin is warm and dry. Neurological: General: No focal deficit present. Mental Status: She is alert and oriented to person, place, and time. Psychiatric: Mood and Affect: Mood normal. Behavior: Behavior normal. Relevant Results Scheduled medications atorvastatin, 20 mg, oral, Nightly folic acid, 1 mg, oral, Daily heparin, 5,000 Units, subcutaneous, q8h hydrogen peroxide, , , ipratropium-albuteroL, 3 mL, nebulization, 4x daily levothyroxine, 137 mcg, oral, Daily liothyronine, 5 mcg, oral, Daily magnesium oxide, 400 mg, oral, Daily mupirocin, 1 Application, Topical, BID pantoprazole, 40 mg, oral, Daily before breakfast predniSONE, 40 mg, oral, Daily thiamine, 100 mg, intravenous, Daily [Held by provider] vancomycin, 750 mg, intravenous, q24h Continuous medications PRN medications PRN medications: acetaminophen OR acetaminophen OR acetaminophen, hydrogen peroxide, LORazepam, magnesium hydroxide, ondansetron ODT OR ondansetron, oxygen, oxygen Assessment/Plan This patient currently has cardiac telemetry ordered; if you would like to modify or discontinue the telemetry order, click here to go to the orders activity to modify/discontinue the order. Principal Problem: Pneumonia due to gram-negative bacteria Septic shock: Resolved Acute hypercapnic respiratory failure with respiratory acidosis: Resolved Pneumonia with gram-positive cocci from bronchial wash Hyponatremia: Stable History of throat cancer with existing tracheal stoma Chronic hypoxemic respiratory failure Multiple sclerosis History of MRSA positive with positive screen Acute renal failure Normal anion gap metabolic acidosis Plan: At this time clinically she is improving and responding quite nicely to therapy Her respiratory status appears much improved Still having quite a few secretions and needing suctioning She is on vancomycin her Vanco trough is still elevated and being managed closely by pharmacy We will have her undergo GEMA decolonization Stop midodrine her blood pressure is now much more stable Stop Zithromax as cultures are all showing gram-positive cocci I will discontinue IV fluids Start sodium bicarbonate replacement We will follow renal function closely she had severe sepsis with shock also had elevated Vanco levels and so we will continue to follow renal function She will need noninvasive ventilation when she is discharged home We will see if she needs a bronchoscopy She is currently still having bloody sputum When we get this resolved we will need to downgrade her trach to a smaller size with fenestration For now continue her medical management as she is on otherwise I spent 30 minutes of critical care time directly involved in patient care excluding any billable procedures Anne Gonzales DO * Zeenat Davila Monday Alexandra Cooper - 10/25/2023 9:15 AM EST Vancomycin Dosing by Pharmacy- FOLLOW UP Vj Myers is a 53 y.o. year old female who Pharmacy has been consulted for vancomycin dosing for pneumonia. Based on the patient's indication and renal status this patient is being dosed based on a goal trough/random level of 15-20. Renal function is currently declining. Current vancomycin dose - held Most recent trough level: 27.9 mcg/mL Visit Vitals BP 130/89 Pulse 99 Temp 36 C (96.8 F) (Temporal) Resp 20 Lab Results Component Value Date CREATININE 2.91 (H) 10/25/2023 CREATININE 2.32 (H) 10/24/2023 CREATININE 1.52 (H) 10/22/2023 CREATININE 0.82 02/07/2023 CREATININE 1.22 (H) 01/02/2023 CREATININE 1.28 (H) 11/03/2022 CREATININE 1.16 (H) 10/14/2022 Patient weight is 97.6 kg Respiratory Culture prelim shows Staph Aureus I/O last 3 completed shifts: In: 4086.6 (41.9 mL/kg) [I.V.:2536.6 (26 mL/kg); IV Piggyback:1550] Out: 500 (5.1 mL/kg) [Urine:500 (0.1 mL/kg/hr)] Weight: 97.6 kg @IOTHISSHIFT@ Lab Results Component Value Date PATIENTTEMP 37.0 10/24/2023 PATIENTTEMP 37.0 10/23/2023 PATIENTTEMP 37.0 10/23/2023 Assessment/Plan Continue to hold Vancomycin. The next level will be obtained on 10/26 at 0500. May be obtained sooner if clinically indicated. Will continue to monitor renal function daily while on vancomycin and order serum creatinine at least every 48 hours if not already ordered. Follow for continued vancomycin needs, clinical response, and signs/symptoms of toxicity. Zeenat Cooper RPh * Dorie Luna RRT - 10/24/2023 10:30 PM EST RT inflated cuff and placed patient on vent, Patient then took multiple sips of water. BS after still diminished. Nursing notified. * BEST Mock - 10/24/2023 3:19 PM EST 10/24/23 1518 Discharge Planning Living Arrangements Spouse/significant other;Children Support Systems Spouse/significant other;Children;Parent;Family members Assistance Needed Independent Type of Residence Private residence Number of Stairs to Enter Residence 1 Number of Stairs Within Residence 0 Who is requesting discharge planning? Provider Home or Post Acute Services Other (Comment) Patient expects to be discharged to: TBD on oxygen needs/requirements Pt reviewed during Care Rounds today- admitted from home for respiratory distress. At baseline, pt had a small stoma where there was once a trach secondary to throat cancer. She receives oxygen, 2 liters, via nasal cannula through stoma site. Dr. Gonzales dilated stoma today and pt now has a trach. Per bedside nurse/Gill, pt will go on the vent tonight. SW met with pt to complete the assessment. She is alert and oriented, pleasant and cooperative and she was educated to the SW roles in the discharge planning process. Pt not able to communicate very well and provided permission for SW to reach out to her mother/Herrera. Call placed to Herrera [phone] to complete the assessment. Mother was educated to the SW roles in the discharge planning process. Prior to hospitalization, pt was living with her significant other and 2 adult children in a one story home. Mother reports pt is fairly independent with all care/activities. Pt only uses home oxygen and a nebulizer at home. She has not seen PCP, Iqra Rose, in some time and continues to cancel her doctor's appts. Mother reports pt is an alcoholic and consumes approx 2 bottles of Inocente Beam/day. She uses [facility] for prescriptions and family denies any issues obtaining/affording medications. Demographics verified and confirmed. Ideally the plan would be for pt to return home; however, it will likely depend on her oxygen needs/requirements at the time of discharge. SW did update Hospitalist and Bedside Nurse about baseline alcohol consumption. Care Transitions will continue to follow. * Karsten Funes MD - 10/24/2023 1:48 PM EST Vj Myers is a 53 y.o. female on day 1 of admission presenting with Pneumonia due to gram-negative bacteria. Subjective Patient seen in room, bedside. More awake and alert, oriented x 3. Continues to be on ventilator through her tracheostomy. Answering all questions and following all commands. She denies any chest pain, shortness of breath. No cough. No fevers or chills. Per nursing no acute events through the night. Objective Last Recorded Vitals BP 89/57 (BP Location: Right arm, Patient Position: Sitting) Pulse 78 Temp 36 C (96.8 F) (Temporal) Resp 16 Wt 97.6 kg (215 lb 2.7 oz) SpO2 96% Intake/Output last 3 Shifts: Intake/Output Summary (Last 24 hours) at 10/24/2023 1348 Last data filed at 10/24/2023 0900 Gross per 24 hour Intake 3091.67 ml Output 500 ml Net 2591.67 ml Admission Weight Weight: 81.6 kg (180 lb) (10/22/232031) Daily Weight 10/23/23 : 97.6 kg (215 lb 2.7 oz) Image Results XR chest 1 view Narrative: Interpreted By: John Pastrana, STUDY: XR CHEST 1 VIEW; 10/22/2023 9:03 pm INDICATION: Signs/Symptoms:Shortness of breath. COMPARISON: 04/25/2022 ACCESSION NUMBER(S): [id number] ORDERING CLINICIAN: DAVID BRANHAM FINDINGS: Partial visualization of tracheostomy. The cardiomediastinal silhouette and pulmonary vasculature are within normal limits. There is subtle opacities at the lung bases that are likely abdominal interstitial with small airspace component possible. The upper lungs are clear. No pleural effusion or pneumothorax. Impression: Ill-defined bibasilar mixed interstitial/airspace opacities that may be related to pneumonia such as COVID-19 or micro aspiration given history tracheostomy. MACRO: None. Signed by: John Pastrana 10/22/2023 10:02 PM Dictation workstation: [id number] Physical Exam Constitutional: General: She is not in acute distress. Appearance: Awake, alert. Comments: Oriented x 4. HENT: Mouth/Throat: Pharynx: Oropharynx is clear. Comments: Tracheostomy in place. Ventilator connected. Eyes: Pupils: Pupils are equal, round, and reactive to light. Cardiovascular: Rate and Rhythm: Normal rate and regular rhythm. Heart sounds: Normal heart sounds. Pulmonary: Breath sounds: Good air entry with occasional expiratory wheeze. Fine crackles in bases. Abdominal: General: Abdomen is flat. Bowel sounds are normal. There is no distension. Palpations: Abdomen is soft. Tenderness: There is no abdominal tenderness. Musculoskeletal: General: No swelling. Skin: General: Skin is warm. Neurological: General: No focal deficit present. Psychiatric: Mood and Affect: Mood normal. Behavior: Behavior normal. Thought Content: Thought content normal. Judgment: Judgment normal. Assessment/Plan This patient currently has cardiac telemetry ordered; if you would like to modify or discontinue the telemetry order, click here to go to the orders activity to modify/discontinue the order. Principal Problem: Pneumonia due to gram-negative bacteria Acute respiratory failure with hypercapnia and hypoxia Hyponatremia Metabolic encephalopathy History of MRSA positive Acute renal failure Hypomagnesemia Chronic alcohol abuse Plan Continue with Levophed, 500 mL normal saline bolus now. Midodrine added by military logistics specialist. IV magnesium 2 g now. Recheck. Senior Net Software Engineer managing ventilator settings. Smiley Berger. Sputum culture shows gram-positive cocci with MRSA screen positive. On azithromycin. Add IV thiamine, folate. Labs in AM. PT, OT consult. DVT prophylaxis on heparin. CODE STATUS full. Disposition in 3 to 4 days. Total critical care time spent 30 minutes. Karsten Davila MD * Anne Gonzales DO - 10/24/2023 9:54 AM EST Vj Myers is a 53 y.o. female on day 1 of admission presenting with Pneumonia due to gram-negative bacteria. Subjective Patient seen and examined at the bedside this morning She is resting comfortably in bed Currently on the ventilator She is awake and alert she is following commands and answering questions at this time Also while I was watching her set up and started eating breakfast Denies any pain currently Denies shortness of breath Objective Vitals 24HR Heart Rate: [65-97] Temp: [35.9 C (96.6 F)-36.8 C (98.2 F)] Resp: [13-30] BP: (72-142)/(48-95) Height: [160 cm (5' 2.99)] Weight: [97.6 kg (215 lb 2.7 oz)] SpO2: [93 %-100 %] Intake/Output last 3 Shifts: Intake/Output Summary (Last 24 hours) at 10/24/2023 0955 Last data filed at 10/24/2023 0607 Gross per 24 hour Intake 2591.67 ml Output 500 ml Net 2091.67 ml Physical Exam Constitutional: Appearance: Normal appearance. HENT: Head: Normocephalic and atraumatic. Right Ear: External ear normal. Left Ear: External ear normal. Nose: Nose normal. Mouth/Throat: Mouth: Mucous membranes are moist. Pharynx: Oropharynx is clear. Eyes: Extraocular Movements: Extraocular movements intact. Conjunctiva/sclera: Conjunctivae normal. Pupils: Pupils are equal, round, and reactive to light. Neck: Comments: Tracheostomy in place Cardiovascular: Rate and Rhythm: Normal rate and regular rhythm. Pulmonary: Effort: Pulmonary effort is normal. Breath sounds: Rhonchi present. Abdominal: General: Abdomen is flat. Palpations: Abdomen is soft. Skin: General: Skin is warm and dry. Neurological: General: No focal deficit present. Mental Status: She is alert and oriented to person, place, and time. Psychiatric: Mood and Affect: Mood normal. Behavior: Behavior normal. Relevant Results Assessment/Plan This patient currently has cardiac telemetry ordered; if you would like to modify or discontinue the telemetry order, click here to go to the orders activity to modify/discontinue the order. Scheduled medications atorvastatin, 20 mg, oral, Nightly azithromycin, 500 mg, intravenous, q24h heparin, 5,000 Units, subcutaneous, q8h ipratropium-albuteroL, 3 mL, nebulization, 4x daily levothyroxine, 137 mcg, oral, Daily liothyronine, 5 mcg, oral, Daily magnesium sulfate, 2 g, intravenous, Once pantoprazole, 40 mg, oral, Daily before breakfast predniSONE, 40 mg, oral, Daily sodium chloride, 500 mL, intravenous, Once [START ON 10/25/2023] vancomycin, 750 mg, intravenous, q24h Continuous medications norepinephrine, 0.01-1 mcg/kg/min, Last Rate: 0.01 mcg/kg/min (10/24/23 4031) sodium chloride 0.9%, 100 mL/hr, Last Rate: 100 mL/hr (10/24/23 0607) PRN medications PRN medications: acetaminophen OR acetaminophen OR acetaminophen, LORazepam, magnesium hydroxide, ondansetron ODT OR ondansetron, oxygen Principal Problem: Pneumonia due to gram-negative bacteria Septic shock Acute hypercapnic respiratory failure with respiratory acidosis Pneumonia with gram-positive cocci from bronchial wash Hyponatremia History of throat cancer with existing tracheal stoma Metabolic encephalopathy with obtundation: Resolved Chronic hypoxemic respiratory failure Multiple sclerosis History of MRSA positive with positive screen Acute renal failure Hypomagnesemia Plan: From the respiratory standpoint she is looking much better She is awake and alert she is following commands and even eating breakfast We will give her a break from the ventilator I have discussed with Casandra her respiratory therapist that when she is sleeping or at night we will place her back on the ventilator for now at least with pressure support Her acidosis has almost completely resolved she is looking much much better Replace magnesium Still has some hypotension We will add midodrine Discussed with pharmacy due to high Vanco level although drawn at not a trough level We will discontinue Zosyn with her sputum from the bronchoscopy at bedside showing gram-positive cocci and her MRSA screen positive She is still on Zithromax which we will leave for now Renal function continues to decline however she was quite ill with hypotension and septic shock I will change IV fluids to lactated Ringer's due to her starting to occur metabolic acidosis She is on heparin for DVT prophylaxis She is on a PPI We will continue to follow closely I spent 30 minutes of critical care time directly involved in patient care excluding any billable procedures Anne Gonzales DO * Charlie Carrillo PharmD - 10/24/2023 9:14 AM EST Vancomycin Dosing by Pharmacy- FOLLOW UP Vj Myers is a 53 y.o. year old female who Pharmacy has been consulted for vancomycin dosing for pneumonia. Based on the patient's indication and renal status this patient is being dosed based on a goal AUC of 500-600. Renal function is currently declining. Current vancomycin dose: 1000 mg given every 12 hours Most recent random level: 39.5 mcg/mL Visit Vitals BP 72/54 (BP Location: Right arm, Patient Position: Lying) Pulse 70 Temp 35.9 C (96.6 F) (Temporal) Resp 26 Lab Results Component Value Date CREATININE 2.32 (H) 10/24/2023 CREATININE 1.52 (H) 10/22/2023 CREATININE 0.82 02/07/2023 CREATININE 1.22 (H) 01/02/2023 CREATININE 1.28 (H) 11/03/2022 CREATININE 1.16 (H) 10/14/2022 Patient weight is No results found for: PTWEIGHT No results found for: CULTURE I/O last 3 completed shifts: In: 5491.7 (56.3 mL/kg) [I.V.:2091.7 (21.4 mL/kg); IV Piggyback:3400] Out: 500 (5.1 mL/kg) [Urine:500 (0.1 mL/kg/hr)] Weight: 97.6 kg @IOTHISSHIFT@ Lab Results Component Value Date PATIENTTEMP 37.0 10/24/2023 PATIENTTEMP 37.0 10/23/2023 PATIENTTEMP 37.0 10/23/2023 Assessment/Plan Above goal AUC. Orders placed for new vancomcyin regimen of 750 mg every 24 hours to begin at 0900 on 10/25. Recommend to begin dosing based on levels rather than AUC given acute worsening of renal function. Goal trough 15-20 mcg/mL. This dosing regimen is predicted by [employer] to result in the following pharmacokinetic parameters: Loading dose: N/A Regimen: 750 mg IV every 24 hours. Start time: 13:43 on 10/24/2023 Exposure target: AUC24 (range)400-600 mg/L.hr AUC24,ss: 544 mg/L.hr Probability of AUC24 > 400: 94 % Ctrough,ss: 16.5 mg/L Probability of Ctrough,ss > 20: 25 % Probability of nephrotoxicity (Lodise RIVAS 2008): 12 % The next level will be obtained on 10/25/2023 at 0700. May be obtained sooner if clinically indicated. Will continue to monitor renal function daily while on vancomycin and order serum creatinine at least every 48 hours if not already ordered. Follow for continued vancomycin needs, clinical response, and signs/symptoms of toxicity. Charlie Carrillo, JaD * Zeenat Davila Monday Alexandra Cooper - 10/23/2023 7:50 AM EST Vancomycin Dosing by Pharmacy- FOLLOW UP Vj Myers is a 53 y.o. year old female who Pharmacy has been consulted for vancomycin dosing for pneumonia. Based on the patient's indication and renal status this patient is being dosed based on a goal AUC of 500-600. Renal function is currently declining. Current vancomycin dose: 1000 mg given every 12 hours was started overnight. Visit Vitals BP 89/73 Pulse 75 Temp 35.7 C (96.2 F) (Temporal) Resp 16 Lab Results Component Value Date CREATININE 1.52 (H) 10/22/2023 CREATININE 0.82 02/07/2023 CREATININE 1.22 (H) 01/02/2023 CREATININE 1.28 (H) 11/03/2022 CREATININE 1.16 (H) 10/14/2022 Patient weight is 81.6 kg MRSA by PCR positive I/O last 3 completed shifts: In: 2900 (35.5 mL/kg) [I.V.:50 (0.6 mL/kg); IV Piggyback:2850] Out: - (0 mL/kg) Weight: 81.6 kg @IOTHISSHIFT@ Assessment/Plan The level will be obtained on 10/24 at 0500. May be obtained sooner if clinically indicated. Will continue to monitor renal function daily while on vancomycin and order serum creatinine at least every 48 hours if not already ordered. Follow for continued vancomycin needs, clinical response, and signs/symptoms of toxicity. Zeenat Cooper RPh documented in this [facility] Work Phone: [phone]) 724-129212-13-2023 Miscellaneous Notes* Care Plan - Lis Kulkarni RN - 11/01/2023 6:00 AM EST The clinical goals for the shift include Pt will maintain SpO2 greater than 92% and will have anxiety managed throughout the shift Over the shift, Pt was stable and SpO2 remained greater than 92%. Ativan continues to help with anxiety. * Care Plan - Nitin Chery RN - 10/31/2023 7:39 PM EST Possible discharge tomorrow [facility]. Uneventful day except pt still having loose stools * Care Plan - Geovanna Diaz RDN, ALEXIS - 10/31/2023 3:00 PM EST Oral intake progressing; no longer requires additional oral supplements * Care Plan - Lis Kulkarni RN - 10/31/2023 5:44 AM EST The clinical goals for the shift include (S) Pt will maintain SpO2 greater than 92% and will have anxiety managed throughout the shift Over the shift, Pt's oxygen remained greater than 92% and anxiety was managed with Ativan. Suctioned blood out of inline suction at approximately 0440, attempted to call RT after Pt was stabilized. Pt initiating activity out of bed and independent with taking care of dentures. 0555 Spoke with RT [id number] about blood in trach suction catheter . * Care Plan - Nitin Chery RN - 10/30/2023 7:40 PM EST Good day. Did bronchoscopy today which looked good. Most likely discharging on mon to [facility] * Care Plan - Ivonne Lemos RN - 10/30/2023 1:07 AM EST The patient's goals for the shift include The clinical goals for the shift include Pt will maintain SpO2 greater than 92% throughout shift. Problem: Discharge Planning Goal: Discharge to home or other facility with appropriate resources Outcome: Met Problem: Chronic Conditions and Co-morbidities Goal: Patient's chronic conditions and co-morbidity symptoms are monitored and maintained or improved Outcome: Met * Care Plan - Anum Gonzalez RN - 10/29/2023 8:09 AM EST The clinical goals for the shift include Pt will maintain SpO2 greater than 92% throughout shift. Pt remained on baseline home O2 throughout shift. SpO2 remains WNL. * Care Plan - Ivonne Lemos RN - 10/29/2023 6:20 AM EST Problem: Skin Goal: Prevent/manage excess moisture Outcome: Met Goal: Prevent/minimize sheer/friction injuries Outcome: Met Goal: Promote skin healing Outcome: Met Problem: Mechanical Ventilation Goal: Patient Will Maintain Patent Airway Outcome: Met Goal: Ability to express needs and understand communication Outcome: Met Goal: Mobility/activity is maintained at optimum level for patient Outcome: Met The patient's goals for the shift include The clinical goals for the shift include Pt will maintain SpO2 greater than 92% throughout shift. * Care Plan - Sonja Vega RN - 10/28/2023 6:52 PM EST The patient's goals for the shift include Problem: Pain - Adult Goal: Verbalizes/displays adequate comfort level or baseline comfort level Outcome: Met Problem: Discharge Planning Goal: Discharge to home or other facility with appropriate resources Outcome: Progressing Problem: Chronic Conditions and Co-morbidities Goal: Patient's chronic conditions and co-morbidity symptoms are monitored and maintained or improved Outcome: Progressing Problem: Skin Goal: Prevent/manage excess moisture Outcome: Progressing Goal: Prevent/minimize sheer/friction injuries Outcome: Progressing Goal: Promote/optimize nutrition Outcome: Progressing Goal: Participates in plan/prevention/treatment measures Outcome: Progressing Goal: Promote skin healing Outcome: Progressing Problem: Knowledge Deficit Goal: Patient/family/caregiver demonstrates understanding of disease process, treatment plan, medications, and discharge instructions Outcome: Progressing Problem: Mechanical Ventilation Goal: Patient Will Maintain Patent Airway Outcome: Progressing Goal: Oral health is maintained or improved Outcome: Progressing Goal: Tracheostomy will be managed safely Outcome: Progressing Goal: Ability to express needs and understand communication Outcome: Progressing Goal: Mobility/activity is maintained at optimum level for patient Outcome: Progressing Problem: Pain Goal: Takes deep breaths with improved pain control throughout the shift Outcome: Progressing Goal: Turns in bed with improved pain control throughout the shift Outcome: Progressing Goal: Walks with improved pain control throughout the shift Outcome: Progressing Goal: Performs ADL's with improved pain control throughout shift Outcome: Progressing Goal: Participates in PT with improved pain control throughout the shift Outcome: Progressing Goal: Free from opioid side effects throughout the shift Outcome: Progressing Goal: Free from acute confusion related to pain meds throughout the shift Outcome: Progressing Problem: Nutrition Goal: Oral intake greater than 50% Outcome: Progressing Goal: Consume prescribed supplement Outcome: Progressing Goal: Adequate PO fluid intake Outcome: Progressing Goal: BG 80-180 mg/dL Outcome: Progressing Goal: Lab values WNL Outcome: Progressing Goal: Electrolytes WNL Outcome: Progressing Goal: Promote healing Outcome: Progressing Goal: Reduce weight from edema/fluid Outcome: Progressing The clinical goals for the shift include Patient will maintain SpO2 greater than 92% throughout this shift. Over the shift, the patient did not make progress toward the following goals. Barriers to progression include the patient's anxiety. Recommendations to address these barriers include the patient has received two doses of PO Ativan. * Care Plan - Rosey Hendrix RN - 10/28/2023 3:02 AM EST The patient's goals for the shift include The clinical goals for the shift include Pt will maintain SpO2 >90% during this shift * Care Plan - Nitin Chery RN - 10/27/2023 6:12 PM EST Pt anxious today. She was informed that the trach would remain and she probably wouldn't be able tohave a speaking valve. Plan was to go to [facility] but she wants to go home. Rt Xi contacted Dr. Gonzales and he was okay with that if we could get her the necessary equipment. Xi began workingon that * Care Plan - He Guillory RN - 10/26/2023 7:38 PM EST The patient's goals for the shift include The clinical goals for the shift include pt will maintain respiratory status throughout shift Over the shift, the patient did not make progress toward the following goals. Barriers to progression include anxiety. Recommendations to address these barriers include review of coping mechanisms. * Care Plan - True Villagomez RN - 10/26/2023 6:05 AM EST The patient's goals for the shift include The clinical goals for the shift include pt will maintain respiratory status throughout shift Over the night, complained anxious, tachycardia, heart rate up to 170. * Care Plan - Ilana Quintanilla RN - 10/25/2023 6:00 PM EST the patient's goals for the shift include managing secretions and increasing ADL independence. The clinical goals for the shift include pt will maintain respiratory status throughout shift Respiratory status remained stable throughout the shift. Anxiety was a problem. * Care Plan - Dinah Gonzalez RN - 10/25/2023 5:43 AM EST The patient's goals for the shift include maintain o2 sat >90% The clinical goals for the shift include Patient will maintain acceptable respiratory status throughout my shift. Pt rested comfortably in the chair through the night. At 0540 she requested a purwick so she could urinate while her vent was still connected. * Significant Event - Lucretia Mcfarland MD - 10/23/2023 6:44 PM EST Patient was seen admitted overnight. Reviewed chart and agree with current assessment plan Continue to monitor clinically documented in this [facility] Work Phone: 1(273) 170-700312-13-2023 Plan of care note* Care Plan - Lis Kulkarni RN - 11/01/2023 6:00 AM EST The clinical goals for the shift include Pt will maintain SpO2 greater than 92% and will have anxiety managed throughout the shift Over the shift, Pt was stable and SpO2 remained greater than 92%. Ativan continues to help with anxiety. [facility]12-12-2023 Plan of care note* Care Plan - Nitin Chery RN - 10/31/2023 7:39 PM EST Possible discharge tomorrow to [facility]. Uneventful day except pt still having loose stools [facility]12-12-2023 Plan of care note* Care Plan - Geovanna Diaz RDN, LD - 10/31/2023 3:00 PM EST Oral intake progressing; no longer requires additional oral supplements [facility] Work Phone: [phone] 879-589012-12-2023 Plan of care note* Care Plan - Lis Kulkarni RN - 10/31/2023 5:44 AM EST The clinical goals for the shift include (S) Pt will maintain SpO2 greater than 92% and will have anxiety managed throughout the shift Over the shift, Pt's oxygen remained greater than 92% and anxiety was managed with Ativan. Suctioned blood out of inline suction at approximately 0440, attempted to call RT after Pt was stabilized. Pt initiating activity out of bed and independent with taking care of dentures. 0555 Spoke with RT [id number] about blood in trach suction catheter . [facility] Work Phone: [phone]) 922-515912-11-2023 Plan of care note* Care Plan - Nitni Chery RN - 10/30/2023 7:40 PM EST Good day. Did bronchoscopy today which looked good. Most likely discharging on wed to [facility] Work Phone: [phone] 600-864312-11-2023 Procedure note* Anne Gonzales DO - 10/30/2023 9:03 AM EST Bronchoscopy Reason: Hemoptysis Timeout: Performed at bedside with Lico Consent: Obtained from patient at bedside Procedure: Using etomidate and fentanyl she was sedated She has a tracheostomy in place and the bronchoscopy was placed down through the trach I was able to visualize both lung chun The bleeding at present is obviously coming from above the trach. There is a little bit of blood onthe trachea coming down from above when this is cleared there is no other bleeding present Nirmal is normal Both right and left lung chun were visualized. There was a little bit of sputum removed from the left. Very little present The right was pretty clear except for the blood that had come down from above As stated when this was clear there was no bleeding present No abnormalities seen during bronchoscopy other than the blood from above the trachea She tolerated procedure well Total procedure time was 5 minutes Sedation used was etomidate 20 mg and fentanyl 25 mcg [facility] Work Phone: [phone] Procedure note* Anne Gonzales DO - 10/30/2023 9:03 AM EST Bronchoscopy Reason: Hemoptysis Timeout: Performed at bedside with Lico Consent: Obtained from patient at bedside Procedure: Using etomidate and fentanyl she was sedated She has a tracheostomy in place and the bronchoscopy was placed down through the trach I was able to visualize both lung chun The bleeding at present is obviously coming from above the trach. There is a little bit of blood onthe trachea coming down from above when this is cleared there is no other bleeding present Nirmal is normal Both right and left lung chun were visualized. There was a little bit of sputum removed from the left. Very little present The right was pretty clear except for the blood that had come down from above As stated when this was clear there was no bleeding present No abnormalities seen during bronchoscopy other than the blood from above the trachea She tolerated procedure well Total procedure time was 5 minutes Sedation used was etomidate 20 mg and fentanyl 25 mcg * Anne Gonzales DO - 10/23/2023 12:09 PM EST Tracheostomy with bronchoscopy Reason: Acute respiratory failure with hypercapnia with stoma in place Consent: Emergent She is currently obtunded she is hypotensive not breathing well and so needs ventilatory support History of throat cancer with tracheostomy in place and so decision was made to dilate her stoma site and place a trach tube placed on the ventilator A guided bougie was placed through the stoma The stoma was then dilated with a Rhino dilator An 8 oh trach was then placed over the bougie and into the trach The bougie was then removed A bedside bronchoscopy was then performed and showed the trach to be in good position Able to see the trachea and the nirmal There is a a lot of secretions a culture was obtained The secretions were very thick and plugged up the bronchoscope multiple times Patient was then bagged and placed on the ventilator No complications noted documented in this [facility] Work Phone: [phone]) 493-829012-11-2023 Plan of care note* Care Plan - Ivonne Lemos RN - 10/30/2023 1:07 AM EST The patient's goals for the shift include The clinical goals for the shift include Pt will maintain SpO2 greater than 92% throughout shift. Problem: Discharge Planning Goal: Discharge to home or other facility with appropriate resources Outcome: Met Problem: Chronic Conditions and Co-morbidities Goal: Patient's chronic conditions and co-morbidity symptoms are monitored and maintained or improved Outcome: Met [facility] Work Phone: [phone]) 874-497312-11-2023 Nurse Note* Ivonne Lemos RN - 10/30/2023 12:00 AM EST Pt up in chair. Helped pt to bedside commode to void. Returned to chair. Pt made NPO. Denies pain or needs at this time. Call light in reach. Will continue to monitor. [facility]12-10-2023 Plan of care note* Care Plan - Anum Gonzalez RN - 10/29/2023 8:09 AM EST The clinical goals for the shift include Pt will maintain SpO2 greater than 92% throughout shift. Pt remained on baseline home O2 throughout shift. SpO2 remains WNL. [facility]12-10-2023 Plan of care note* Care Plan - Ivonne Lemos RN - 10/29/2023 6:20 AM EST Problem: Skin Goal: Prevent/manage excess moisture Outcome: Met Goal: Prevent/minimize sheer/friction injuries Outcome: Met Goal: Promote skin healing Outcome: Met Problem: Mechanical Ventilation Goal: Patient Will Maintain Patent Airway Outcome: Met Goal: Ability to express needs and understand communication Outcome: Met Goal: Mobility/activity is maintained at optimum level for patient Outcome: Met The patient's goals for the shift include The clinical goals for the shift include Pt will maintain SpO2 greater than 92% throughout shift. [facility] Work Phone: [phone]) 312-733312-09-2023 Nurse Note* Ivonne Lemos RN - 10/28/2023 11:50 PM EST Pt up to bedside commode and returned to bed. Denies pain. Purewick placed per pt request. Ativan given for anxiety. Pt resting comfortably. Call light in reach. [facility] Work Phone: [phone]) 953-507212-09-2023 Plan of care note* Care Plan - Sonja Vega RN - 10/28/2023 6:52 PM EST The patient's goals for the shift include Problem: Pain - Adult Goal: Verbalizes/displays adequate comfort level or baseline comfort level Outcome: Met Problem: Discharge Planning Goal: Discharge to home or other facility with appropriate resources Outcome: Progressing Problem: Chronic Conditions and Co-morbidities Goal: Patient's chronic conditions and co-morbidity symptoms are monitored and maintained or improved Outcome: Progressing Problem: Skin Goal: Prevent/manage excess moisture Outcome: Progressing Goal: Prevent/minimize sheer/friction injuries Outcome: Progressing Goal: Promote/optimize nutrition Outcome: Progressing Goal: Participates in plan/prevention/treatment measures Outcome: Progressing Goal: Promote skin healing Outcome: Progressing Problem: Knowledge Deficit Goal: Patient/family/caregiver demonstrates understanding of disease process, treatment plan, medications, and discharge instructions Outcome: Progressing Problem: Mechanical Ventilation Goal: Patient Will Maintain Patent Airway Outcome: Progressing Goal: Oral health is maintained or improved Outcome: Progressing Goal: Tracheostomy will be managed safely Outcome: Progressing Goal: Ability to express needs and understand communication Outcome: Progressing Goal: Mobility/activity is maintained at optimum level for patient Outcome: Progressing Problem: Pain Goal: Takes deep breaths with improved pain control throughout the shift Outcome: Progressing Goal: Turns in bed with improved pain control throughout the shift Outcome: Progressing Goal: Walks with improved pain control throughout the shift Outcome: Progressing Goal: Performs ADL's with improved pain control throughout shift Outcome: Progressing Goal: Participates in PT with improved pain control throughout the shift Outcome: Progressing Goal: Free from opioid side effects throughout the shift Outcome: Progressing Goal: Free from acute confusion related to pain meds throughout the shift Outcome: Progressing Problem: Nutrition Goal: Oral intake greater than 50% Outcome: Progressing Goal: Consume prescribed supplement Outcome: Progressing Goal: Adequate PO fluid intake Outcome: Progressing Goal: BG 80-180 mg/dL Outcome: Progressing Goal: Lab values WNL Outcome: Progressing Goal: Electrolytes WNL Outcome: Progressing Goal: Promote healing Outcome: Progressing Goal: Reduce weight from edema/fluid Outcome: Progressing The clinical goals for the shift include Patient will maintain SpO2 greater than 92% throughout this shift. Over the shift, the patient did not make progress toward the following goals. Barriers to progression include the patient's anxiety. Recommendations to address these barriers include the patient has received two doses of PO Ativan. [facility]12-09-2023 Plan of care note* Care Plan - Rosey Hendrix RN - 10/28/2023 3:02 AM EST The patient's goals for the shift include The clinical goals for the shift include Pt will maintain SpO2 >90% during this shift [facility]12-08-2023 Plan of care note* Care Plan - Nitin Chery RN - 10/27/2023 6:12 PM EST Pt anxious today. She was informed that the trach would remain and she probably wouldn't be able tohave a speaking valve. Plan was to go to [facility] but she wants to go home. Rt Xi contacted Dr. Gonzales and he was okay with that if we could get her the necessary equipment. Xi began workingon that [facility] Work Phone: [phone] 286-740912-07-2023 Plan of care note* Care Plan - He Guillory RN - 10/26/2023 7:38 PM EST The patient's goals for the shift include The clinical goals for the shift include pt will maintain respiratory status throughout shift Over the shift, the patient did not make progress toward the following goals. Barriers to progression include anxiety. Recommendations to address these barriers include review of coping mechanisms. [facility]12-07-2023 Plan of care note* Care Plan - True Villagomez RN - 10/26/2023 6:05 AM EST The patient's goals for the shift include The clinical goals for the shift include pt will maintain respiratory status throughout shift Over the night, complained anxious, tachycardia, heart rate up to 170. [facility]12-06-2023 Nurse Note* Dinah Gonzalez RN - 10/25/2023 11:57 PM EST Starting around 23:15 patient heart rate was between 140s and 160s. 1 mg lorazepam was given for anxiety, heart rate lowered to 110s to 120s. Dr Cameron notified. [facility]12-06-2023 Plan of care note* Care Plan - Ilana Quintanilla RN - 10/25/2023 6:00 PM EST the patient's goals for the shift include managing secretions and increasing ADL independence. The clinical goals for the shift include pt will maintain respiratory status throughout shift Respiratory status remained stable throughout the shift. Anxiety was a problem. [facility]12-06-2023 Plan of care note* Care Plan - Dinah Gonzalez RN - 10/25/2023 5:43 AM EST The patient's goals for the shift include maintain o2 sat >90% The clinical goals for the shift include Patient will maintain acceptable respiratory status throughout my shift. Pt rested comfortably in the chair through the night. At 0540 she requested a purwick so she could urinate while her vent was still connected. [facility] Work Phone: [phone]) 971-786512-04-2023 Note* Significant Event - Lucretia Mcfarland MD - 10/23/2023 6:44 PM EST Patient was seen admitted overnight. Reviewed chart and agree with current assessment plan Continue to monitor clinically [facility] Work Phone: [phone] 730-118912-04-2023 Procedure note* Anne Gonzales DO - 10/23/2023 12:09 PM EST Tracheostomy with bronchoscopy Reason: Acute respiratory failure with hypercapnia with stoma in place Consent: Emergent She is currently obtunded she is hypotensive not breathing well and so needs ventilatory support History of throat cancer with tracheostomy in place and so decision was made to dilate her stoma site and place a trach tube placed on the ventilator A guided bougie was placed through the stoma The stoma was then dilated with a Rhino dilator An 8 oh trach was then placed over the bougie and into the trach The bougie was then removed A bedside bronchoscopy was then performed and showed the trach to be in good position Able to see the trachea and the nirmal There is a a lot of secretions a culture was obtained The secretions were very thick and plugged up the bronchoscope multiple times Patient was then bagged and placed on the ventilator No complications noted [facility] Work Phone: [phone] 773-643112-04-2023 Consult note* Anne Gonzales DO - 10/23/2023 11:51 AM ESTAssociated Order(s): IP CONSULT TO [employer] Reason For Consult Septic shock with respiratory failure History Of Present Illness Vj Myers is a 53 y.o. female presenting with shortness of breath congestion and sputum production. She presented to the emergency room secondary to congestion cough and shortness of breath per her report. When I saw her she is not answering any questions and barely waking up to arousal. 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 Surgical History She has a past surgical history that includes Other surgical history (10/26/2021); Other surgical history (10/26/2021); Other surgical history (10/26/2021); Other surgical history (10/26/2021); and Other surgical history (11/09/2021). Social History She reports that she has never smoked. She has never used smokeless tobacco. She reports that she does not currently use alcohol. She reports that she does not use drugs. Family History Family History Problem Relation Name Age of Onset Lung cancer Mother Heart failure Father Colon cancer Sister Diabetes Brother Heart failure Other Grandmother Allergies Iodinated contrast media, Morphine, and Adhesive Review of Systems A full 10 point review of systems is not able to be obtained as she is obtunded and not able to answer questions Physical Exam Physical Exam Constitutional: Comments: Obtunded barely awakens to noxious stimuli HENT: Head: Normocephalic and atraumatic. Nose: Nose normal. Mouth/Throat: Mouth: Mucous membranes are moist. Pharynx: Oropharynx is clear. Eyes: Comments: Eyes closed, barely awakens at this time Neck: Comments: Tracheal stoma in place Cardiovascular: Rate and Rhythm: Normal rate and regular rhythm. Pulmonary: Effort: Pulmonary effort is normal. Breath sounds: Rhonchi present. Abdominal: General: Abdomen is flat. Palpations: Abdomen is soft. Skin: General: Skin is warm and dry. Neurological: Comments: Obtunded, does not wake up, barely arouses to noxious stimuli I&O 24HR Intake/Output Summary (Last 24 hours) at 10/23/2023 1151 Last data filed at 10/23/2023 0425 Gross per 24 hour Intake 2900 ml Output -- Net 2900 ml Vitals 24HR Heart Rate: [68-99] Temp: [35.7 C (96.2 F)-36.6 C (97.8 F)] Resp: [16-26] BP: (67-168)/(42-98) Height: [160 cm (5' 3)] Weight: [81.6 kg (180 lb)] SpO2: [91 %-100 %] Relevant Results Reviewed lab results and imaging studies Scheduled medications atorvastatin, 10 mg, oral, Daily escitalopram, 5 mg, oral, Daily etomidate, , , ipratropium-albuteroL, 3 mL, nebulization, 4x daily levothyroxine, 125 mcg, oral, Daily liothyronine, 5 mcg, oral, Daily pantoprazole, 40 mg, oral, Daily before breakfast phenylephrine, , , piperacillin-tazobactam, , , piperacillin-tazobactam, 4.5 g, intravenous, q6h predniSONE, 40 mg, oral, Daily vancomycin, 1,000 mg, intravenous, q12h Continuous medications norepinephrine, 0.01-1 mcg/kg/min, Last Rate: 0.1 mcg/kg/min (10/23/23 1146) sodium chloride 0.9%, 100 mL/hr, Last Rate: 100 mL/hr (10/23/23 0230) PRN medications PRN medications: etomidate, oxygen, phenylephrine, piperacillin-tazobactam Assessment/Plan Septic shock Acute hypercapnic respiratory failure with respiratory acidosis Pneumonia Hyponatremia History of throat cancer with existing tracheal stoma Metabolic encephalopathy with obtundation Chronic hypoxemic respiratory failure Multiple sclerosis History of MRSA positive with positive screen Plan: Please see procedure note for tracheostomy She has been placed on the ventilator we will repeat ABG in 1 hour Send respiratory culture We will add Mucomyst to try to break up her secretions as she had very thick secretions and pluggedup the bronchoscope At this time continue broad-spectrum antibiotics She is currently on Zosyn and vancomycin Will add Zithromax until we get cultures Multiple medications have been stopped including amlodipine We will use Levophed to support her blood pressure Place OG/NG tube We will follow cultures closely She will be admitted to the ICU and we will follow closely Her lactate is normal which is good Hopefully her hypotension will improve with correction of her acidosis We will check TSH Follow labs closely Follow cultures closely Thanks for the consult I spent 60 minutes of critical care time directly involved in patient care excluding any billable procedures Principal Problem: Pneumonia due to gram-negative bacteria Anne Gonzales DO [facility] Work Phone: [phone] Consult note* Anne Gonzales DO - 10/23/2023 11:51 AM ESTAssociated Order(s): IP CONSULT TO [employer] Reason For Consult Septic shock with respiratory failure History Of Present Illness Vj Myers is a 53 y.o. female presenting with shortness of breath congestion and sputum production. She presented to the emergency room secondary to congestion cough and shortness of breath per her report. When I saw her she is not answering any questions and barely waking up to arousal. 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 Surgical History She has a past surgical history that includes Other surgical history (10/26/2021); Other surgical history (10/26/2021); Other surgical history (10/26/2021); Other surgical history (10/26/2021); and Other surgical history (11/09/2021). Social History She reports that she has never smoked. She has never used smokeless tobacco. She reports that she does not currently use alcohol. She reports that she does not use drugs. Family History Family History Problem Relation Name Age of Onset Lung cancer Mother Heart failure Father Colon cancer Sister Diabetes Brother Heart failure Other Grandmother Allergies Iodinated contrast media, Morphine, and Adhesive Review of Systems A full 10 point review of systems is not able to be obtained as she is obtunded and not able to answer questions Physical Exam Physical Exam Constitutional: Comments: Obtunded barely awakens to noxious stimuli HENT: Head: Normocephalic and atraumatic. Nose: Nose normal. Mouth/Throat: Mouth: Mucous membranes are moist. Pharynx: Oropharynx is clear. Eyes: Comments: Eyes closed, barely awakens at this time Neck: Comments: Tracheal stoma in place Cardiovascular: Rate and Rhythm: Normal rate and regular rhythm. Pulmonary: Effort: Pulmonary effort is normal. Breath sounds: Rhonchi present. Abdominal: General: Abdomen is flat. Palpations: Abdomen is soft. Skin: General: Skin is warm and dry. Neurological: Comments: Obtunded, does not wake up, barely arouses to noxious stimuli I&O 24HR Intake/Output Summary (Last 24 hours) at 10/23/2023 1151 Last data filed at 10/23/2023 0425 Gross per 24 hour Intake 2900 ml Output -- Net 2900 ml Vitals 24HR Heart Rate: [68-99] Temp: [35.7 C (96.2 F)-36.6 C (97.8 F)] Resp: [16-26] BP: (67-168)/(42-98) Height: [160 cm (5' 3)] Weight: [81.6 kg (180 lb)] SpO2: [91 %-100 %] Relevant Results Reviewed lab results and imaging studies Scheduled medications atorvastatin, 10 mg, oral, Daily escitalopram, 5 mg, oral, Daily etomidate, , , ipratropium-albuteroL, 3 mL, nebulization, 4x daily levothyroxine, 125 mcg, oral, Daily liothyronine, 5 mcg, oral, Daily pantoprazole, 40 mg, oral, Daily before breakfast phenylephrine, , , piperacillin-tazobactam, , , piperacillin-tazobactam, 4.5 g, intravenous, q6h predniSONE, 40 mg, oral, Daily vancomycin, 1,000 mg, intravenous, q12h Continuous medications norepinephrine, 0.01-1 mcg/kg/min, Last Rate: 0.1 mcg/kg/min (10/23/23 1146) sodium chloride 0.9%, 100 mL/hr, Last Rate: 100 mL/hr (10/23/23 0230) PRN medications PRN medications: etomidate, oxygen, phenylephrine, piperacillin-tazobactam Assessment/Plan Septic shock Acute hypercapnic respiratory failure with respiratory acidosis Pneumonia Hyponatremia History of throat cancer with existing tracheal stoma Metabolic encephalopathy with obtundation Chronic hypoxemic respiratory failure Multiple sclerosis History of MRSA positive with positive screen Plan: Please see procedure note for tracheostomy She has been placed on the ventilator we will repeat ABG in 1 hour Send respiratory culture We will add Mucomyst to try to break up her secretions as she had very thick secretions and pluggedup the bronchoscope At this time continue broad-spectrum antibiotics She is currently on Zosyn and vancomycin Will add Zithromax until we get cultures Multiple medications have been stopped including amlodipine We will use Levophed to support her blood pressure Place OG/NG tube We will follow cultures closely She will be admitted to the ICU and we will follow closely Her lactate is normal which is good Hopefully her hypotension will improve with correction of her acidosis We will check TSH Follow labs closely Follow cultures closely Thanks for the consult I spent 60 minutes of critical care time directly involved in patient care excluding any billable procedures Principal Problem: Pneumonia due to gram-negative bacteria Anne Gonzales DO documented in this [facility] Work Phone: 1([phone]) 490-599712-04-2023 History and physical note* Jose Suero MD - 10/23/2023 2:03 AM EST History Of Present Illness Vj Myers is a 53 y.o. female Who presented to the emergency room for congestion cough and shortness of breath. On presentation, blood pressure 96/59, heart rate 93, respiratory 21, afebrile, saturation oxygen 91% via trach collar. Pertinent findings on blood workup; glucose 146, sodium 132, creatinine 1.52, magnesium 0.85 and calcium 6.5. Influenza and COVID-19 both came back negative. Chest x-ray showed mixed interstitial bibasilar airspace opacities. While in the emergency room patient's blood pressure dropped and became 77/46. IV fluids half-normal saline was bolused. Patient was also given 10 mg IV dexamethasone, DuoNebs, Toradol, magnesium, Zosyn, and then admitted to the medicalservic for further investigation and management. Upon encounter now, patient reports feeling still very sick. She has tracheostomy. She cannot articulate but with limitation. Dates back her history to several days ago when she started having productive cough with yellowish/greenish phlegm. Associated with congestion. No fever or chills. But patient felt very ill and sick. Her mother was just recently hospitalized for influenza A. She did have acontact with her mother. No nausea or vomiting. No abdominal pain. No diarrhea. ROS 10 systems were reviewed and were negative except for those noted in the history of present illness. 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, oral cavity, and pharynx History of throat cancer Personal history of Methicillin resistant Staphylococcus aureus infection History of methicillin resistant Staphylococcus aureus infection Personal history of other diseases of urinary system 10/26/2021 History of kidney disease Pertinent medical history also documented in my below narrative Surgical History Past Surgical History: Procedure Laterality Date OTHER SURGICAL HISTORY 10/26/2021 Throat surgery OTHER SURGICAL HISTORY 10/26/2021 section OTHER SURGICAL HISTORY 10/26/2021 Bladder surgery OTHER SURGICAL HISTORY 10/26/2021 Hernia repair OTHER SURGICAL HISTORY 11/09/2021 Intra-articular corticosteroid injection Pertinent surgical history also documented in my below narrative Social History She reports that she has never smoked. She has never used smokeless tobacco. She reports that she does not currently use alcohol. She reports that she does not use drugs. Family History Family History Problem Relation Name Age of Onset Lung cancer Mother Heart failure Father Colon cancer Sister Diabetes Brother Heart failure Other Grandmother Allergies Iodinated contrast media, Morphine, and Adhesive (Not in a hospital admission) Last Recorded Vitals Blood pressure (!) 77/46, pulse 84, temperature 36.5 C (97.7 F), temperature source Oral, resp. rate 19, height 1.6 m (5' 3), weight 81.6 kg (180 lb), SpO2 96 %. Physical Exam Constitutional: General: She is not in acute distress. Appearance: She is ill-appearing. Comments: Awake alert and oriented x3 HENT: Mouth/Throat: Pharynx: Oropharynx is clear. Comments: Tracheostomy in place. Audible oropharyngeal secretions Eyes: Pupils: Pupils are equal, round, and reactive to light. Cardiovascular: Rate and Rhythm: Normal rate and regular rhythm. Heart sounds: Normal heart sounds. Pulmonary: Breath sounds: Wheezing and rhonchi present. Abdominal: General: Abdomen is flat. Bowel sounds are normal. There is no distension. Palpations: Abdomen is soft. Tenderness: There is no abdominal tenderness. Musculoskeletal: General: No swelling. Skin: General: Skin is warm. Neurological: General: No focal deficit present. Psychiatric: Mood and Affect: Mood normal. Behavior: Behavior normal. Thought Content: Thought content normal. Judgment: Judgment normal. Relevant Results Results for orders placed or performed during the hospital encounter of 10/22/23 (from the past 24 hour(s)) RSV PCR Result Value Ref Range RSV PCR Not Detected Not Detected Influenza A, and B PCR Result Value Ref Range Flu A Result Not Detected Not Detected Flu B Result Not Detected Not Detected Sars-CoV-2 PCR, Screen Asymptomatic Result Value Ref Range Coronavirus 2019, PCR Not Detected Not Detected CBC and Auto Differential Result Value Ref Range WBC 8.3 4.4 - 11.3 x10*3/uL nRBC 0.0 0.0 - 0.0 /100 WBCs RBC 3.78 (L) 4.00 - 5.20 x10*6/uL Hemoglobin 12.8 12.0 - 16.0 g/dL Hematocrit 38.1 36.0 - 46.0 % MCV 101 (H) 80 - 100 fL MCH 33.9 26.0 - 34.0 pg MCHC 33.6 32.0 - 36.0 g/dL RDW 13.2 11.5 - 14.5 % Platelets 196 150 - 450 x10*3/uL Neutrophils % 86.7 40.0 - 80.0 % Immature Granulocytes %, Automated 0.5 0.0 - 0.9 % Lymphocytes % 5.3 13.0 - 44.0 % Monocytes % 7.3 2.0 - 10.0 % Eosinophils % 0.0 0.0 - 6.0 % Basophils % 0.2 0.0 - 2.0 % Neutrophils Absolute 7.21 1.20 - 7.70 x10*3/uL Immature Granulocytes Absolute, Automated 0.04 0.00 - 0.70 x10*3/uL Lymphocytes Absolute 0.44 (L) 1.20 - 4.80 x10*3/uL Monocytes Absolute 0.61 0.10 - 1.00 x10*3/uL Eosinophils Absolute 0.00 0.00 - 0.70 x10*3/uL Basophils Absolute 0.02 0.00 - 0.10 x10*3/uL Basic metabolic panel Result Value Ref Range Glucose 146 (H) 74 - 99 mg/dL Sodium 132 (L) 136 - 145 mmol/L Potassium 3.8 3.5 - 5.3 mmol/L Chloride 95 (L) 98 - 107 mmol/L Bicarbonate 24 21 - 32 mmol/L Anion Gap 17 10 - 20 mmol/L Urea Nitrogen 26 (H) 6 - 23 mg/dL Creatinine 1.52 (H) 0.50 - 1.05 mg/dL eGFR 41 (L) >60 mL/min/1.73m*2 Calcium 6.5 (L) 8.6 - 10.3 mg/dL Magnesium Result Value Ref Range Magnesium 0.85 (L) 1.60 - 2.40 mg/dL Troponin I, High Sensitivity Result Value Ref Range Troponin I, High Sensitivity 8 0 - 13 ng/L B-Type Natriuretic Peptide Result Value Ref Range BNP 30 0 - 99 pg/mL Lactate Result Value Ref Range Lactate 2.0 0.4 - 2.0 mmol/L Sars-CoV-2 PCR, Screen Asymptomatic Result Value Ref Range Coronavirus 2018, PCR Not Detected Not Detected Influenza A, and B PCR Result Value Ref Range Flu A Result Not Detected Not Detected Flu B Result Not Detected Not Detected Calcium, ionized Result Value Ref Range POCT Calcium, Ionized 0.78 (L) 1.1 - 1.33 mmol/L XR chest 1 view Result Date: 10/22/2023 Interpreted By: John Pastrana, STUDY: XR CHEST 1 VIEW; 10/22/2023 9:03 pm INDICATION: Signs/Symptoms:Shortness of breath. COMPARISON: 04/25/2022 ACCESSION NUMBER(S): [id number] ORDERING CLINICIAN: DAVID BRANHAM FINDINGS: Partial visualization of tracheostomy. The cardiomediastinal silhouette and pulmonary vasculature are within normal limits. There is subtle opacities at the lung bases that arelikely abdominal interstitial with small airspace component possible. The upper lungs are clear. Nopleural effusion or pneumothorax. Ill-defined bibasilar mixed interstitial/airspace opacities that may be related to pneumonia such as COVID-19 or micro aspiration given history tracheostomy. MACRO: None. Signed by: John Pastrana 10/22/2023 10:02 PM Dictation workstation: [id number] Assessment/Plan 53-year-old female with a past medical history of throat cancer s/p surgical resection with residual tracheostomy/trach collar on 2 L nasal cannula oxygen continuous (2011), multiple sclerosis, hypertension, cervical pain radiculitis, chronic pain disorder, depression, GERD, hyperlipidemia, right shoulder impingement, insomnia, lumbosacral radiculopathy, right side mastoiditis, sacroiliitis, hypothyroidism, and a MRSA infection who presented to the emergency room for congestion and cough and shortness of breath. Patient was found to have a pneumonia associated with acute on chronic hypoxemic respiratory failure, acute kidney injury, hypotensive shock, hypomagnesemia, and hypocalcemia. Admit patient to the inpatient medical service with telemetry and vital signs monitoring. Continue treating with the Zosyn 4.5 g IV every 6 hours scheduled and add vancomycin given the history of MRSA infection. Consult critical care given the hypotension and the tracheostomy status. And give IV fluids normal saline at rate of 100 cc/hour. Repeat CBC and BMP in 24 hours. Give prednisone 40 mg oral daily. DuoNebs 4 times a day. For the hypocalcemia, I will first check ionized calcium level. And then decide on the next step. Per the records, patient has a history of chronic pain disorder and has not been prescribed opioidsfor almost 6 months now. So I would avoid giving any opioids while inpatient. Resume home medications except for the losartan and the hydrochlorothiazide and the meloxicam giventhe acute kidney injury. SCDs for DVT prophylaxis Full code I have reviewed and evaluated the most recent data and results, personally examined the patient, and formulated the plan of care as presented above. Patient is at-risk for clinically significant deterioration / failure due to the above mentioned dysfunctional, unstable organ systems and requires continued critical care treatment. I have personally identified and managed all complex critical care issues to prevent aforementioned clinical deterioration. 60 minutes were spent in the critical care management of the patient excluding billable procedures (This note was generated with voice recognition software and may contain errors including spelling,grammar, syntax and misrecognition of what was dictated, that are not fully corrected) Jose Suero MD [facility] Work Phone: 1([phone]) 325-943412-04-2023 History and physical note* Jose Suero MD - 10/23/2023 2:03 AM EST History Of Present Illness Vj Myers is a 53 y.o. female Who presented to the emergency room for congestion cough and shortness of breath. On presentation, blood pressure 96/59, heart rate 93, respiratory 21, afebrile, saturation oxygen 91% via trach collar. Pertinent findings on blood workup; glucose 146, sodium 132, creatinine 1.52, magnesium 0.85 and calcium 6.5. Influenza and COVID-19 both came back negative. Chest x-ray showed mixed interstitial bibasilar airspace opacities. While in the emergency room patient's blood pressure dropped and became 77/46. IV fluids half-normal saline was bolused. Patient was also given 10 mg IV dexamethasone, DuoNebs, Toradol, magnesium, Zosyn, and then admitted to the medicalservice for further investigation and management. Upon encounter now, patient reports feeling still very sick. She has tracheostomy. She cannot articulate but with limitation. Dates back her history to several days ago when she started having productive cough with yellowish/greenish phlegm. Associated with congestion. No fever or chills. But patient felt very ill and sick. Her mother was just recently hospitalized for influenza A. She did have acontact with her mother. No nausea or vomiting. No abdominal pain. No diarrhea. ROS 10 systems were reviewed and were negative except for those noted in the history of present illness. 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, oral cavity, and pharynx History of throat cancer Personal history of Methicillin resistant Staphylococcus aureus infection History of methicillin resistant Staphylococcus aureus infection Personal history of other diseases of urinary system 10/26/2021 History of kidney disease Pertinent medical history also documented in my below narrative Surgical History Past Surgical History: Procedure Laterality Date OTHER SURGICAL HISTORY 10/26/2021 Throat surgery OTHER SURGICAL HISTORY 10/26/2021 section OTHER SURGICAL HISTORY 10/26/2021 Bladder surgery OTHER SURGICAL HISTORY 10/26/2021 Hernia repair OTHER SURGICAL HISTORY 11/09/2021 Intra-articular corticosteroid injection Pertinent surgical history also documented in my below narrative Social History She reports that she has never smoked. She has never used smokeless tobacco. She reports that she does not currently use alcohol. She reports that she does not use drugs. Family History Family History Problem Relation Name Age of Onset Lung cancer Mother Heart failure Father Colon cancer Sister Diabetes Brother Heart failure Other Grandmother Allergies Iodinated contrast media, Morphine, and Adhesive (Not in a hospital admission) Last Recorded Vitals Blood pressure (!) 77/46, pulse 84, temperature 36.5 C (97.7 F), temperature source Oral, resp. rate 19, height 1.6 m (5' 3), weight 81.6 kg (180 lb), SpO2 96 %. Physical Exam Constitutional: General: She is not in acute distress. Appearance: She is ill-appearing. Comments: Awake alert and oriented x3 HENT: Mouth/Throat: Pharynx: Oropharynx is clear. Comments: Tracheostomy in place. Audible oropharyngeal secretions Eyes: Pupils: Pupils are equal, round, and reactive to light. Cardiovascular: Rate and Rhythm: Normal rate and regular rhythm. Heart sounds: Normal heart sounds. Pulmonary: Breath sounds: Wheezing and rhonchi present. Abdominal: General: Abdomen is flat. Bowel sounds are normal. There is no distension. Palpations: Abdomen is soft. Tenderness: There is no abdominal tenderness. Musculoskeletal: General: No swelling. Skin: General: Skin is warm. Neurological: General: No focal deficit present. Psychiatric: Mood and Affect: Mood normal. Behavior: Behavior normal. Thought Content: Thought content normal. Judgment: Judgment normal. Relevant Results Results for orders placed or performed during the hospital encounter of 10/22/23 (from the past 24 hour(s)) RSV PCR Result Value Ref Range RSV PCR Not Detected Not Detected Influenza A, and B PCR Result Value Ref Range Flu A Result Not Detected Not Detected Flu B Result Not Detected Not Detected Sars-CoV-2 PCR, Screen Asymptomatic Result Value Ref Range Coronavirus 2019, PCR Not Detected Not Detected CBC and Auto Differential Result Value Ref Range WBC 8.3 4.4 - 11.3 x10*3/uL nRBC 0.0 0.0 - 0.0 /100 WBCs RBC 3.78 (L) 4.00 - 5.20 x10*6/uL Hemoglobin 12.8 12.0 - 16.0 g/dL Hematocrit 38.1 36.0 - 46.0 % MCV 101 (H) 80 - 100 fL MCH 33.9 26.0 - 34.0 pg MCHC 33.6 32.0 - 36.0 g/dL RDW 13.2 11.5 - 14.5 % Platelets 196 150 - 450 x10*3/uL Neutrophils % 86.7 40.0 - 80.0 % Immature Granulocytes %, Automated 0.5 0.0 - 0.9 % Lymphocytes % 5.3 13.0 - 44.0 % Monocytes % 7.3 2.0 - 10.0 % Eosinophils % 0.0 0.0 - 6.0 % Basophils % 0.2 0.0 - 2.0 % Neutrophils Absolute 7.21 1.20 - 7.70 x10*3/uL Immature Granulocytes Absolute, Automated 0.04 0.00 - 0.70 x10*3/uL Lymphocytes Absolute 0.44 (L) 1.20 - 4.80 x10*3/uL Monocytes Absolute 0.61 0.10 - 1.00 x10*3/uL Eosinophils Absolute 0.00 0.00 - 0.70 x10*3/uL Basophils Absolute 0.02 0.00 - 0.10 x10*3/uL Basic metabolic panel Result Value Ref Range Glucose 146 (H) 74 - 99 mg/dL Sodium 132 (L) 136 - 145 mmol/L Potassium 3.8 3.5 - 5.3 mmol/L Chloride 95 (L) 98 - 107 mmol/L Bicarbonate 24 21 - 32 mmol/L Anion Gap 17 10 - 20 mmol/L Urea Nitrogen 26 (H) 6 - 23 mg/dL Creatinine 1.52 (H) 0.50 - 1.05 mg/dL eGFR 41 (L) >60 mL/min/1.73m*2 Calcium 6.5 (L) 8.6 - 10.3 mg/dL Magnesium Result Value Ref Range Magnesium 0.85 (L) 1.60 - 2.40 mg/dL Troponin I, High Sensitivity Result Value Ref Range Troponin I, High Sensitivity 8 0 - 13 ng/L B-Type Natriuretic Peptide Result Value Ref Range BNP 30 0 - 99 pg/mL Lactate Result Value Ref Range Lactate 2.0 0.4 - 2.0 mmol/L Sars-CoV-2 PCR, Screen Asymptomatic Result Value Ref Range Coronavirus 2019, PCR Not Detected Not Detected Influenza A, and B PCR Result Value Ref Range Flu A Result Not Detected Not Detected Flu B Result Not Detected Not Detected Calcium, ionized Result Value Ref Range POCT Calcium, Ionized 0.78 (L) 1.1 - 1.33 mmol/L XR chest 1 view Result Date: 10/22/2023 Interpreted By: John Pastrana, STUDY: XR CHEST 1 VIEW; 10/22/2023 9:03 pm INDICATION: Signs/Symptoms:Shortness of breath. COMPARISON: 04/25/2022 ACCESSION NUMBER(S): [id number] ORDERING CLINICIAN: DAVID BRANHAM FINDINGS: Partial visualization of tracheostomy. The cardiomediastinal silhouette and pulmonary vasculature are within normal limits. There is subtle opacities at the lung bases that arelikely abdominal interstitial with small airspace component possible. The upper lungs are clear. Nopleural effusion or pneumothorax. Ill-defined bibasilar mixed interstitial/airspace opacities that may be related to pneumonia such as COVID-19 or micro aspiration given history tracheostomy. MACRO: None. Signed by: John Pastrana 10/22/2023 10:02 PM Dictation workstation: [id number] Assessment/Plan 53-year-old female with a past medical history of throat cancer s/p surgical resection with residual tracheostomy/trach collar on 2 L nasal cannula oxygen continuous (2011), multiple sclerosis, hypertension, cervical pain radiculitis, chronic pain disorder, depression, GERD, hyperlipidemia, right shoulder impingement, insomnia, lumbosacral radiculopathy, right side mastoiditis, sacroiliitis, hypothyroidism, and a MRSA infection who presented to the emergency room for congestion and cough and shortness of breath. Patient was found to have a pneumonia associated with acute on chronic hypoxemic respiratory failure, acute kidney injury, hypotensive shock, hypomagnesemia, and hypocalcemia. Admit patient to the inpatient medical service with telemetry and vital signs monitoring. Continue treating with the Zosyn 4.5 g IV every 6 hours scheduled and add vancomycin given the history of MRSA infection. Consult critical care given the hypotension and the tracheostomy status. And give IV fluids normal saline at rate of 100 cc/hour. Repeat CBC and BMP in 24 hours. Give prednisone 40 mg oral daily. DuoNebs 4 times a day. For the hypocalcemia, I will first check ionized calcium level. And then decide on the next step. Per the records, patient has a history of chronic pain disorder and has not been prescribed opioidsfor almost 6 months now. So I would avoid giving any opioids while inpatient. Resume home medications except for the losartan and the hydrochlorothiazide and the meloxicam giventhe acute kidney injury. SCDs for DVT prophylaxis Full code I have reviewed and evaluated the most recent data and results, personally examined the patient, and formulated the plan of care as presented above. Patient is at-risk for clinically significant deterioration / failure due to the above mentioned dysfunctional, unstable organ systems and requires continued critical care treatment. I have personally identified and managed all complex critical care issues to prevent aforementioned clinical deterioration. 60 minutes were spent in the critical care management of the patient excluding billable procedures (This note was generated with voice recognition software and may contain errors including spelling,grammar, syntax and misrecognition of what was dictated, that are not fully corrected) Jose Suero MD [facility] Work Phone: 1(700) 973-125612-03-2023 NoteIll-defined bibasilar mixed interstitial/airspace opacities that may be related to pneumonia such as COVID-19 or micro aspiration given history tracheostomy. MACRO: None. Signed by: John Pastrana 10/22/2023 10:02 PM Dictation workstation: [id number] Emergency department Note * SEYMOUR Sylvester - 10/22/2023 8:22 PM EST Pt comes in for respiratory distress. Pt brought in by EMS for reports of respiratory distress times today. Pt has a trach and usually usually is on 2L at home. Pt states she has been having nausea, vomiting, hot flashes, coughing, diarrhea x today. Pt's mom is currently admitted for flu A documented in this [facility]Un[facility] Work Phone: 1([phone]) 839-576412-03-2023 Emergency department Triage note* SEYMOUR Sylvester - 10/22/2023 8:22 PM EST Pt comes in for respiratory distress. Pt brought in by EMS for reports of respiratory distress times today. Pt has a trach and usually usually is on 2L at home. Pt states she has been having nausea, vomiting, hot flashes, coughing, diarrhea x today. Pt's mom is currently admitted for flu A [facility] Work Phone: [phone] 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 Until then, we will have speech therapy see the patient. According jeremy, patient has only been able to eat applesauce consistency foods at home. 03/31/23 1149 <Electronically signed by Bartolo Bernal DO> Cosigner Signature (if applicable): CC: ~ Signed [facility] Work Phone: 1(625) 295-990205-12-[address] Church [facility] March 31, 2023 6:42am Note Date/Time March 30, 2023 10:30 pm [facility] Medical Records Department [address] [place] [address] Emergency Department Summary 03/30/23 MR#: [id number] Acct: [id number] Name: VJ MYERS Rep #:[id number] : 1970 52 From: Sylvia Church MD PCP: CHARY Nava Status:ADM IN Location: [place] [address] HPI History of Present Illness Chief Complaint: ETOH Intox Informant: patient Narrative Narrative: Patient presents requesting help with alcohol detox. She drinks hard liquor. She denies history of prior withdrawal seizure. She also reports foul-smelling stool over the past 2 weeks. She states her sister does have colon cancer. Patient has a history of laryngeal cancer and has a tracheostomy. Her last drink was 3 hours ago. [facility] Medical History Alcohol use Anxiety Back pain Chest pain Chronic kidney disease (CKD) Chronic pain COPD (chronic obstructive pulmonary disease) Difficulty swallowing Essential hypertension Former smoker Gastric reflux GERD (gastroesophageal reflux disease) History of foreign body aspiration History of hiatal hernia History of pain when walking History of renal disease Hyperlipidemia Hypothyroidism Influenza A Kidney disease Larynx cancer Leg cramps Morbid obesity Obesity Restless legs Shortness of breath on exertion Thyroid disease Wears dentures Home Medications atorvastatin 10 mg tablet 10 mg PO QHS cholesterol 01/11/21 [History Last Taken 04/25/22] sertraline 50 mg tablet 75 mg PO DAILY depression 01/11/21 [History Last Taken 04/29/22] levothyroxine 112 mcg tablet 137 mcg PO DAILY THYROID 10/04/21 [History Last Taken 04/29/22] liothyronine 5 mcg tablet 10 mcg PO DAILY THYROID 10/04/21 [History Last Taken 04/29/22] losartan 100 mg-hydrochlorothiazide 25 mg tablet 1 tab PO DAILY BP 10/04/21 [History Last Taken 04/29/22] gabapentin 100 mg tablet 300 mg PO BID back pain 11/29/21 [History Last Taken 04/29/22] hydrocodone-acetaminophen 5-325mg 5mg-325mg 1 tab PO Q8H PRN PRN Pain 04/26/22 [History Last Taken 04/29/22] hydroxyzine HCl 25 mg tablet 25 mg PO 4X/DAY PRN PRN Anxiety 04/26/22 [History Last Taken Unknown] meloxicam 15 mg tablet 15 mg PO DAILY pain 04/26/22 [History Last Taken 04/25/22] sucralfate 1 gram tablet 1 g PO 4X/DAY stomach 04/26/22 [History Last Taken 04/29/22] albuterol sulfate 90 mcg/actuation aerosol inhaler (Ventolin HFA) 1 inh inhalation Q6H PRN shortness of breath or wheezing #8.5 grams 04/28/22 [Rx Last Taken Unknown] carvedilol 6.25 mg tablet 6.25 mg PO BID blood pressure 04/29/22 [History Last Taken 04/29/22] famotidine 20 mg tablet 20 mg PO DAILY . 04/29/22 [History Last Taken 04/29/22] prednisone 10 mg tablet 10 mg PO DAILY steroid 04/29/22 [History Last Taken 04/29/22] ipratropium 0.5 mg-albuterol 3 mg (2.5 mg base)/3 mL nebulization soln 3 ml inhalation Q4H PRN shortness of breath or wheezing #180 mL 05/04/22 [Rx Last Taken Unknown] linezolid 600 mg tablet 600 mg PO Q12H 11 days #22 tabs 05/04/22 [Rx Last Taken Unknown] Allergy/AdvReac Type Severity Reaction Status Date / Time latex Allergy BLISTERS Verified 03/30/23 21:11 Iodinated Contrast Media AdvReac Hives Verified 03/30/23 21:11 [Iodinated Contrast Media - IV Dye] morphine AdvReac Nausea/Vom/ Verified 03/30/23 21:11 Diarrhea Family History Mother CVA (cerebral vascular accident) Heart disease Hypertension Sister Cancer Surgical History History of appendectomy History of laryngectomy History of tracheostomy Hx of cholecystectomy Hx of hernia repair Hx of hysterectomy Social History Smoking Status: Former smoker ROS ROS ED Constitutional Constitutional ED: Denies chills or fever(s) Eyes Eyes: Denies discharge from eye(s) ENT ENT ED: Denies discharge from eye(s) or sore throat Cardiovascular Cardiovascular: Denies chest pain or palpitations Respiratory/Chest Respiratory/Chest: Denies cough or dyspnea Gastrointestinal Gastrointestinal: Reports diarrhea; Denies abdominal pain, nausea or vomiting Genitourinary Genitourinary ED: Denies dysuria Musculoskeletal Musculoskeletal: Denies back pain or extremity pain Integumentary Denies Abrasions or rash Neurologic Neurologic: Denies headache(s) or weakness Psychiatric Psychiatric: Reports depression; Denies anxiety Allergic/Immunologic Allergic/Immunologic ED: Denies lip swelling or urticaria EXAM Physical Exam Const Vital Signs: 03/30/23 21:09 03/30/23 21:48 03/31/23 00:17 Temperature 98.0 F 97.6 F L Temperature Source Temporal Temporal Pulse Rate 128 H 112 H 109 H Respiratory Rate 18 16 25 H Blood Pressure 134/90 H 99/66 Blood Pressure Mean 104 77 Pulse Ox 93 96 98 Oxygen Delivery Method Room Air Venturi Mask Venturi Mask Fraction of Inspired Oxygen (FIO2) 50 50 Positive well nourished and well developed General Appearance ED: well developed HEENT Reports moist mucous membranes Eyes EOMs intact bilaterally Neck Neck Narrative: Tracheostomy in place. Chest Wall inspection of chest normal and palpation of chest normal Resp normal respiratory effort and clear to auscultation bilaterally Cardio regular rhythm Rate: tachycardic GI soft to palpation Neuro oriented x3 and no sensory deficits noted Motor Exam: strength 5/5 throughout Psych Mood & Affect: tearful MDM MDM MDM Narrative Medical decision making narrative: IV line established. Lab work for ED addiction medicine obtained. Given her loose malodorous stools stool series was also sent. Patient denies being on recent antibiotics. Lab Data Attestation: I reviewed the patient's lab results. Labs: Laboratory Results - last 24 hr 03/30/23 03/30/23 03/30/23 21:38 21:40 21:40 WBC 8.4 RBC 4.60 Hgb 15.1 H Hct 47.0 MCV 102.2 H MCH 32.8 H MCHC 32.1 RDW Std Deviation 52.1 H RDW Coeff of Rosa 13.8 Plt Count 296 MPV 9.2 Immature Gran % (Auto) 0.800 Neut % (Auto) 58.1 Lymph % (Auto) 28.5 Chaves % (Auto) 5.7 Eos % (Auto) 5.2 H Baso % (Auto) 1.7 H Absolute Neuts (auto) 4.9 Absolute Lymphs (auto) 2.39 Nucleated RBC % 0 Sodium 140 Potassium 3.9 Chloride 103 Carbon Dioxide 26.0 Anion Gap 11 BUN 11 Creatinine 0.96 Estim Creat Clear Calc 59.20 Est GFR (MDRD) Af Amer 78 Est GFR (MDRD) Non-Af 65 BUN/Creatinine Ratio 11.5 Glucose 93 Calcium 8.8 Total Bilirubin 0.30 AST 62 H ALT 21 Alkaline Phosphatase 121 H Total Protein 8.0 Albumin 3.6 Globulin 4.4 H Albumin/Globulin Ratio 0.8 L Urine Opiates Screen NEGATIVE Urine Methadone Screen NEGATIVE Ur Barbiturates Screen NEGATIVE Ur Phencyclidine Scrn NEGATIVE Ur Amphetamines Screen NEGATIVE MDMA (Ecstasy) Screen NEGATIVE U Benzodiazepines Scrn NEGATIVE Urine Cocaine Screen NEGATIVE U Cannabinoids Screen NEGATIVE Ur Drug Screen Comment Ethyl Alcohol 03/30/23 21:40 WBC RBC Hgb Hct MCV MCH MCHC RDW Std Deviation RDW Coeff of Rosa Plt Count MPV Immature Gran % (Auto) Neut % (Auto) Lymph % (Auto) Chaves % (Auto) Eos % (Auto) Baso % (Auto) Absolute Neuts (auto) Absolute Lymphs (auto) Nucleated RBC % Sodium Potassium Chloride Carbon Dioxide Anion Gap BUN Creatinine Estim Creat Clear Calc Est GFR (MDRD) Af Amer Est GFR (MDRD) Non-Af BUN/Creatinine Ratio Glucose Calcium Total Bilirubin AST ALT Alkaline Phosphatase Total Protein Albumin Globulin Albumin/Globulin Ratio Urine Opiates Screen Urine Methadone Screen Ur Barbiturates Screen Ur Phencyclidine Scrn Ur Amphetamines Screen MDMA (Ecstasy) Screen U Benzodiazepines Scrn Urine Cocaine Screen U Cannabinoids Screen Ur Drug Screen Comment Ethyl Alcohol 320.0 H* Treatment and Re-Evaluation Narrative: CBC elsa normal white count at 8.4. Hemoglobin is slightly concentrated at 15.1. Chemistry studies unremarkable with normal renal function. LFTs significant only for an alk phos of 121. Urine tox screen is negative. EtOH is 320. Stool for fecal leukocytes is negative. Remainder of stool series is still pending. Patient does request inpatient detox to help with her alcoholism. I will speak with the hospitalist. Discharge Plan Dx/Rx/DC Orders Clinical Impression: Desire for detoxification, Alcohol abuse Disposition Disposition: Acute Care Hospital [facility] What to do if you have Problems For any increased pain, shortness of breath, bleeding, nausea or vomiting, chestpain, or any unexpected problems, contact your Primary Care Provider. Call [facility] ([phone]) or report to the closest Emergency Room. Call 911 if necessary. 03/31/23 0642 <Electronically signed by Sylvia Church MD> Cosigner Signature (if applicable): CC: CHARY Rose ~ Signed [facility] Work Phone: [phone]) [phone] History and physical note Author Dr. Greenwood [facility] March 31, 2023 4:31am Note Date/Time March 31, 2023 1:38a m [facility] Medical Records Department [address] [place] [address] H&P Exam - Hospitalist 03/31/23 0116 MR#: [id number] Acct: [id number] Name: VJ MYERS Rep #:[id number] : 1970 52 From: Robe Greenwood MD PCP: CHARY Nava Status:ADM IN Location: [facility] [id number] HPI - General General Date of Admission: 03/31/23 Date of Service: 03/31/23 Chief Complaint: Desire for alcohol detoxification HPI Narrative VJ MYERS, is a 52 F who with a significant history of laryngeal cancer status post laryngectomy and with tracheostomy who is here for alcohol detoxification. She drinks about 1/5 of hard liquor each day. She began drinking heavily since the beginning of this year 2022. On the day of presentation patient was drinking each day. Reportedly her drinking habits has worsened over the years. Last time she drank was about an hour prior to presentation. Also she reports of foul smelling multiple loose stools each day that has been going on for months. Emergency department doctor ordered and obtained stool samples at the ED. [facility] Medical History Alcohol use Anxiety Back pain Chest pain Chronic kidney disease (CKD) Chronic pain COPD (chronic obstructive pulmonary disease) Difficulty swallowing Essential hypertension Former smoker Gastric reflux GERD (gastroesophageal reflux disease) History of foreign body aspiration History of hiatal hernia History of pain when walking History of renal disease Hyperlipidemia Hypothyroidism Influenza A Kidney disease Larynx cancer Leg cramps Morbid obesity Obesity Restless legs Shortness of breath on exertion Thyroid disease Wears dentures Home Medications atorvastatin 10 mg tablet 10 mg PO QHS cholesterol 01/11/21 [History Last Taken 04/25/22] sertraline 50 mg tablet 75 mg PO DAILY depression 01/11/21 [History Last Taken 04/29/22] levothyroxine 112 mcg tablet 137 mcg PO DAILY THYROID 10/04/21 [History Last Taken 04/29/22] liothyronine 5 mcg tablet 10 mcg PO DAILY THYROID 10/04/21 [History Last Taken 04/29/22] losartan 100 mg-hydrochlorothiazide 25 mg tablet 1 tab PO DAILY BP 10/04/21 [History Last Taken 04/29/22] gabapentin 100 mg tablet 300 mg PO BID back pain 11/29/21 [History Last Taken 04/29/22] hydrocodone-acetaminophen 5-325mg 5mg-325mg 1 tab PO Q8H PRN PRN Pain 04/26/22 [History Last Taken 04/29/22] hydroxyzine HCl 25 mg tablet 25 mg PO 4X/DAY PRN PRN Anxiety 04/26/22 [History Last Taken Unknown] albuterol sulfate 90 mcg/actuation aerosol inhaler (Ventolin HFA) 1 inh inhalation Q6H PRN shortness of breath or wheezing #8.5 grams 04/28/22 [Rx Last Taken Unknown] carvedilol 6.25 mg tablet 6.25 mg PO BID blood pressure 04/29/22 [History Last Taken 04/29/22] famotidine 20 mg tablet 20 mg PO DAILY . 04/29/22 [History Last Taken 04/29/22] ipratropium 0.5 mg-albuterol 3 mg (2.5 mg base)/3 mL nebulization soln 3 ml inhalation Q4H PRN shortness of breath or wheezing #180 mL 05/04/22 [Rx Last Taken Unknown] Allergy/AdvReac Type Severity Reaction Status Date / Time adhesive tape [tape] Allergy Hives Verified 03/31/23 02:26 latex Allergy BLISTERS Verified 03/30/23 21:11 Iodinated Contrast Media AdvReac Hives Verified 03/30/23 21:11 [Iodinated Contrast Media - IV Dye] morphine AdvReac Nausea/Vom/ Verified 03/30/23 21:11 Diarrhea Family History Mother CVA (cerebral vascular accident) Heart disease Hypertension Sister Cancer Surgical History History of appendectomy History of laryngectomy History of tracheostomy Hx of cholecystectomy Hx of hernia repair Hx of hysterectomy Social History Smoking Status: Former smoker ROS ROS Narrative Pertinent positives and pertinent negatives as noted in HPI. All other systems were reviewed and are negative Vital Signs Vital Signs Vital Signs: 03/30/23 21:09 03/30/23 21:48 03/31/23 00:17 Temperature 98.0 F 97.6 F L Temperature Source Temporal Temporal Pulse Rate 128 H 112 H 109 H Respiratory Rate 18 16 25 H Blood Pressure 134/90 H 99/66 Blood Pressure Mean 104 77 Pulse Ox 93 96 98 Oxygen Delivery Method Room Air Venturi Mask Venturi Mask Fraction of Inspired Oxygen (FIO2) 50 50 Weight Weight: 93.44 kg Body Mass Index (BMI) 35.3 Physical Exam Narrative Physical exam: General: Well-nourished, well-developed. Head: Normocephalic, atraumatic, no tenderness Eyes: Vision is grossly intact. EOMI ENT tracheostomy hole in place, moist mucous membranes, no rhinorrhea Neck: Nontender, No thyromegaly. CVS: Regular rate and rhythm. S1-S2 present. No murmur, gallop or rub. Respiratory : clear to auscultation bilaterally, chest wall nontender Abdomen: Soft, nontender, nondistended, normal bowel sounds, no masses : Deferred Back: Nontender, no CVA tenderness, no midline spinal tenderness, deformities, step-offs Extremities: Nontender full range of motion, no trauma Skin: Normal color, no trauma, abrasions Neuro: Alert, oriented, cranial nerves II through XII grossly intact. Psychiatry: Normal mood. Normal affect. Not depressed. Not anxious. Results Lab / Micro Data Result Diagrams: 03/30/23 21:40 03/30/23 21:40 Labs: Laboratory Results - last 24 hr 03/30/23 21:38: Urine Opiates Screen NEGATIVE, Urine Methadone Screen NEGATIVE, Ur Barbiturates Screen NEGATIVE, Ur Phencyclidine Scrn NEGATIVE, Ur AmphetaminesScreen NEGATIVE, MDMA (Ecstasy) Screen NEGATIVE, U Benzodiazepines Scrn NEGATIVE, Urine Cocaine Screen NEGATIVE, U Cannabinoids Screen NEGATIVE, Ur DrugScreen Comment 03/30/23 21:40: WBC 8.4, RBC 4.60, Hgb 15.1 H, Hct 47.0, MCV 102.2 H, MCH 32.8 H, MCHC 32.1, RDW Std Deviation 52.1 H, RDW Coeff of Rosa 13.8, Plt Count 296, MPV9.2, Immature Gran % (Auto) 0.800, Neut % (Auto) 58.1, Lymph % (Auto) 28.5, Chaves% (Auto) 5.7, Eos % (Auto) 5.2 H, Baso % (Auto) 1.7 H, Absolute Neuts (auto) 4.9, Absolute Lymphs (auto) 2.39, Nucleated RBC % 0 03/30/23 21:40: Sodium 140, Potassium 3.9, Chloride 103, Carbon Dioxide 26.0, Anion Gap 11, BUN 11, Creatinine 0.96, Estim Creat Clear Calc 59.20, Est GFR (MDRD) Af Amer 78, Est GFR (MDRD) Non-Af 65, BUN/Creatinine Ratio 11.5, Glucose 93, Calcium 8.8, Total Bilirubin 0.30, AST 62 H, ALT 21, Alkaline Phosphatase 121 H, Total Protein 8.0, Albumin 3.6, Globulin 4.4 H, Albumin/Globulin Ratio 0.8 L 03/30/23 21:40: Ethyl Alcohol 320.0 H* Micro: Microbiology 03/30/23 22:40 Stool Stool Lactoferrin - Final Assessment & Plan Assessment/Plan (1) Desire for detoxification: (2) Alcohol abuse: (3) Obesity: (4) Diarrhea: PLAN: Plan Alcohol dependence and desire for detoxification Alcohol level on presentation was 320. Urine toxicology was negative. Patient be started on phenobarbital and other adjunctive medications: Gabapentinas needed; dicyclomine as needed; Vistaril as needed; Imodium as needed; trazodone as needed; Zofran as needed; scheduled thiamine; and schedule folic acid. Monitor CIWA score Hypertension Blood pressure is not within goal Home blood pressure medication continued. Trend blood pressure and adjust blood pressure medications. Morbid Obesity: BMI: 37.5 kg/m?. Complicates care. Lifestyle modification recommended. Diarrhea Stool studies obtained in the ED Follow DVT prophylaxis Low risk Encourage to ambulate Charges/Coding Visit Charges Inpatient E&M: 53152 Init Hosp L2 03/31/23 2811 <Electronically signed by Robe Greenwood MD> Cosigner Signature (if applicable): CC: CHARY Rose; Dr. Robe Greenwood MD~ Signed [facility] Work Phone: 1(737) 971-655503-21-2023 History of Present illness Narrative* She is here for follow-up secondary to chronic kidney disease with in the past currently stable renal function, hypotension with dizziness and lightheadedness and also alcohol abuse. At her last visit we stopped carvedilol as her cardiac work-up was negative and her blood pressure was low. * Blood work was repeated on February 07 * Shows a normal sodium of 139 her kidney function has now improved to normal with a BUN of 12 and a creatinine of 0.82. Her GFR is 86 * Bicarb is 34 her potassium and sodium are all within normal limits * Medications are reviewed and they include citalopram, fludrocortisone, magnesium, a PPI, vitamin D * She has cut back on ETOH intake * She is feeling pretty well * Has swelling off and on [facility] Work Phone: [phone] History of Present illness Narrative* On a scale of 0 to 10, the patient rates the pain at 7. * Pain Location: rt shoulder and lt knee. * Pain Quality: Sharp. * Sensory/ Motor: Numbness, Pins and Round O and 2-5th fingers. * Timing/Duration: Constant and > 12 weeks duration. * Controlled Substance: * I have personally reviewed the OARRS report for VJ MYERS. I have considered the risks of abuse,dependence, addiction and diversion.Narcan offered and declined. * Goals for Pain Management: * Oswestry Disability Index evaluation tool completed by patient score 24. -[facility] Work Phone: [phone]) 705-962101-05-2023 History of Present illness Narrative* Monica Chapa, STACY - 11/24/2022 2:45 PM EST [facility] VOICE PROSTHESIS Evaluation and Fit Today's Date 11/24/2022 Patient Name: Vj Myers Date of : 1970 Case Name: Speech Therapy - SUPERINTENDENT OPERATING Functional Diagnosis: 1. Aphonia Clinical Information: Last Change 10-24-2022 (Provox Guillory 17 Swiss 6mm Lot [id number], expiration 04-19-2027) Prosthesis placed this visit: [employer] Dual Valve Indwelling Voice Prosthesis 20 Swiss 8mm (Lot [id number], expiration 08-16-2024) Equipment Provided: Cleaning [place] and Flush, Red Rubber Catheter 18 Swiss This session requires special isolation as this procedure is an aerosol generating procedure. In addition to hand hygiene being completed, the following PPE was worn during this session: gloves an appropriately fitting (N-95, PAPR, Aura) mask face shield/googles protective gown Subjective Information: Pt contacted this therapist 11-07-2022 indicating her voice prosthesis came out as she was tryingto plug it with cotton sticks. Prosthesis was then accidentally ejected . She placed an 18 Frenchred rubber catheter which was reportedly leaking around TEP site. Pt requested an appointment for Friday November 11, 2022, was encouraged by this ENFORCEMENT MANAGER to come in for appointment that same afternoon at [facility] given leaking around red rubber catheter and concern for aspiration or to make an appointment with Dr. Pantoja given ongoing tissue changes and difficulty maintaining prosthesis placement (despite ongoing education re: appropriate care and cleaning, avoidance of pulling if resistance noted during cares). Pt indicated not having transportation until Monday and indicated she would planto contact Dr. Pantoja after her kidney doctor appointment on Monday11-09-22. Pt was encouraged to call Dr. Pantoja to set up appointment that day rather than waiting until Monday. Pt was then ag reeable to schedule an appt for 11-08-22, however, called in am of 11-08-22 to cancel due to not feeling well. Future appt set for Monday at 11, although attempted to reschedule prior to expected snow storm; however, pt was unable to coordinate a time. Pt made aware of need to schedule week of November 14 on Monday or Monday given holiday and therapist availability. No return communication from patient until MondayNovember 21 at 7:04am. Appointment scheduled for 3pm on 11-22-22. Pt texted to say she could not make that appointment and asked to reschedule for Monday11-23-22 at 3pm. Ptwas a no show, no call for scheduled appt 11-23-22. Pt contacted ENFORCEMENT MANAGER stating she became ill and missed appointment. Appointment rescheduled for 3pm this date and patient was directed to contact scheduling directly for future appointments (scheduling has indicated pt having cancelled appointments x12 within the past 12 months). Pt endorses continued leakage of fluid from TEP site (around 18 Swiss red rubber catheter which had visible yeast colonization). There is notable yellow lesion-looking sore to left superior edge of stoma (suspect from prolonged resting area of red rubber catheter). Pt indicates difficulty swallowing solid foods, has notable colorization of secretions to match items consumed earlier this date indicative if aspiration. Pt reports current illness as sinus with notable drainage pointing to nasalregion. Trials of water were noted to leak around red rubber catheter prior to removal. Treatment: Pt was seen this date for eval and fit of voice prosthesis. Pt had laryngeal tube in place upon arrival which appeared to have food particles dried within lumen. Visual assessment of stoma and TEP site revealing questionable integrity of tissue with continued thicker tissue lateral to TEP as well as an increase in diameter of TEP with ease of placement of 22 Swiss measuring dilator following removal of 18 Swiss red rubber catheter (pt historically has been in a 16 Swiss indwelling voice prosthesis). The length of puncture is highly variable given tissue differentiation ranging from 4mm to 8mm. Initially trialed a 20 Swiss 4mm prosthesis with gel cap placement which was unsuccessful (suspect given tissue growth and poor fit for deployment of esophageal flange). Then trialed 20 Swiss 8mm Dual Valve which was placed via gel cap insertion, able to achieve good rotation on applicator . Pt able to produce immediate alaryngeal voicing and consume blue tinged liquid with no apparent leakfollowing multiple trials (no leakage around or through valve lumen). Application tab removed from tracheal flange and pt provided with cleaning brush/flush. Educated patient to cleaning and care, avoiding aggressive intervention which may inadvertently dislodge prosthesis. Again highly encouraging pt to contact ENT office and schedule appointment to assess tissue growth as this will persist in impacting cleaning and care of prosthesis. Also need further assessment given increased size of TEP diameter (increasing from typical 16 Swiss to current 20 Swiss to avoid further leakage around prosthesis. Pt voices understanding of info presented. Pt agreeable to contact speech therapy department with any further questions or concerns. Followingsession, this therapist contacted Dr. Pantoja's office with concerns and recommendation for follow up consultation/ENT assessment given continued tissue changes. Office to contact patient to schedule an appointment. Frequency of Visits: as needed (every 6 months recommended) Duration: order for 1 year of eval and fit of voice prosthesis Interventions: Eval and Fit of Voice Prosthesis (48480) Rehab Potential: good (pending compliance with follow up and prosthesis care/cleaning) Goals Goals: Speech Therapy: Voice: LT. Patient will utilize and maintain an indwelling voice prosthesis foralaryngeal speech to communicate with familiar and unfamiliar listeners by 01/10/23. ST. Patient will be fitted with appropriate voice prosthesis and demonstrate consistent voicingw/o issue by 01/10/23. 2. Patient will demonstrate independent use of HME via adhesive or laryngeal tube by 01/10/23. 3. Patient and family will be educated to stoma care and management as well as diagnosis specific information and demonstrate understanding by 01/10/23. Monica Chapa, ENFORCEMENT MANAGER STATE LICENSE, [id number] documented in this [id number] History of Present illness Narrative* She is here for a new patient visit * She was referred here secondary to chronic kidney disease * My evaluation plan is communicated back via the electronic medical record * Blood work was last done on September 01 * Blood work shows a BUN of 21 and a creatinine of 2.34 calcium is 7.6 estimated GFR is 22 her LFTs look pretty unremarkable electrolytes also look pretty good her bicarb is slightly elevated at 30.4 * In April creatinine was 2.0 previous to that back in May 2020 creatinine was 0.86 we really do not have any blood work since that time. * Medications are reviewed her medications include amlodipine 10 mg, atorvastatin, carvedilol, side telemetry pram, narcotics, Hyzaar with losartan and hydrochlorothiazide, levothyroxine, omeprazole, pregabalin and sertraline * She had throat cancer and wason Chemo 10 years ago. * She states she does not urinate much * She deos drinkalcohol * She drinks w botles of [employer] Whiskey per week. * She stopped smoking 10 years ago. * She does not urinate much * She has diarrhea all the tiem * She does not take OTC meds * She eats not well * She throws up a lot as well. [facility] [place] 3 DO Work Phone: [phone] History of Present illness Narrative* On a scale of 0 to 10, the patient rates the pain at 8. * Pain Location: RIGHT SHOULDER. * Pain Quality: Stabbing and DEEP. * Sensory/ Motor: Pins and Round O. * Timing/Duration: Constant and > 12 weeks duration. * Exacerbating Factors: gripping, motion, lifting and repetitive motion. * Alleviating Factors: Medications. * 24 Hour Behavior: * Symptoms are the same in the am. * Symptoms are the same as the day progresses. * Symptoms are the same in the pm. * Symptoms are the same when lying down. * Patient is a 52-year-old female. She has a past medical history significant for arthropathy of the right shoulder and right shoulder rotator cuff tear. * Patient continues to use lyrica, [place] 5/325 1 p.o. up to 3 times daily as needed pain. Right now she is having the arm pain that she rates an 8/10 pain her quality of life and activities of daily. Impacting her ability to do things. She previously was referred to Dr. Le. Due to her other medical conditions He was not sure that they will be able to do the surgery. She states that she was recently referred to [facility] by her primary care physician but she left knee. She think she would like to proceed. She is having difficulty with holding her grandchild and doing her normal every day. Because of her shoulder pain. This is her main concern at this time she wants it taken care of. [facility] Work Phone: [phone]) 158-720208-08-2022 History of Present illness Narrative* Monica Chapa, ENFORCEMENT MANAGER - 06/27/2022 1:15 PM EDT [facility] VOICE PROSTHESIS Evaluation Today's Date 06/27/2022 Patient Name: Vj Myers Date of : 1970 Case Name: Speech Therapy - SUPERINTENDENT OPERATING Functional Diagnosis: 1. Aphonia Clinical Information: [employer] Classic Indwelling 16 Fr/ 10 mm (lot [id number], exp 07-23-2022) Last Change 05/09/2022 Plug Insert 16 Swiss, Flushing Device , and Cleaning [place], Floyd Stoma Protector This session requires special isolation as this procedure is an aerosol generating procedure. In addition to hand hygiene being completed, the following PPE was worn during this session: gloves an appropriately fitting (N-95, PAPR, Aura) mask face shield/googles protective gown Treatments: Pt was seen this date for eval and fit of voice prosthesis, having requested appointment approximately 2 weeks prior, however, had cancelled several session for transportation and personal reasons then developed COVID and elected to await coming to hospital for additional week despite being educated that she could be seen given COVID protocol and use of negative pressure room, PPE precautions. Pt reports significant leakage through valve lumen for several weeks. She was unable to use plug insert due to item broken (silicone ripped/ applicator from plug). States she was using a cotton tipped applicator during intake to prevent leakage into airway. Pt was provided with a new plug insert. Pt had laryngeal tube in place upon arrival. Assessment of stoma and TEP site revealing significantgrowth of tissue with lateral shrouding covering majority of tracheal flange. ENFORCEMENT MANAGER attaching hemostat for removal of prosthesis to bottom of tracheal flange given presentation. Was able to remove and place dilator with pt measuring 12,mm superiorly and 6mm inferiorly as impacted by tissue growth. Elected to place a 16 Swiss 10mm voice prosthesis given above. Utilized gel cap insertion for placement followed by trials of water. Able to rotate prosthesis on applicator with ease, indicative of esophageal flange deployment. Applicator removed and pt able to produce alaryngeal voicing and swallow multiple trials of green tinged water to follow without appreciated leak. Application tab removed from tracheal flange. Pt agreeable to contact speech therapy department with any further questions or concerns. Treatment Plan: Frequency of Visits: as needed (every 6 months recommended) Duration: order for 1 year of eval and fit of voice prosthesis Interventions: Eval and Fit of Voice Prosthesis (22743) Rehab Potential: good Goals: Speech Therapy: Voice: LT. Patient will utilize and maintain an indwelling voice prosthesis foralaryngeal speech to communicate with familiar and unfamiliar listeners by 01/10/23. ST. Patient will be fitted with appropriate voice prosthesis and demonstrate consistent voicingw/o issue by 01/10/23. 2. Patient will demonstrate independent use of HME via adhesive or laryngeal tube by 01/10/23. 3. Patient and family will be educated to stoma care and management as well as diagnosis specific information and demonstrate understanding by 01/10/23. Patient Education provided: Ongoing education re: stoma protection, cleaning and care given increased tissue growth at TEP site. Encouraged pt to contact Dr. Pantoja's office given changes in tissue. Pt verbalizing understanding of info presented. STACY Yan STATE LICENSE, [id number] documented in this [id number] History of Present illness Narrative* On a scale of 0 to 10, the patient rates the pain at 8. * Pain Location: RIGHT SHOULDER. * Pain Quality: Stabbing and DEEP. * Pain Radiation: RIGHT ARM TO WRIST. * Sensory/ Motor: Numbness. * Timing/Duration: Constant and > 12 weeks duration. * Exacerbating Factors: gripping, motion, lifting and repetitive motion. * Alleviating Factors: Medications. * 24 Hour Behavior: * Symptoms are the same in the am. * Symptoms are the same as the day progresses. * Symptoms are the same in the pm. * Symptoms are the same when lying down. * Patient is a 52-year-old female. She has a past medical history significant for arthropathy of the right shoulder and right shoulder rotator cuff tear. She saw Dr. Le. He did discuss surgery withher but he wanted her to have clearance with anesthesia and cardiac clearance. She was able to get these clearances but now she states that she was advised that Dr. Le is leaving. They recommended her to find a bigger [place] to have her surgery at. She has not yet done this. * Patient continues to use [place] 5/325 1 p.o. up to 3 times daily as needed pain. She states that this does help her. She has right shoulder pain that she rates an 8/10. The medication at least gives her enough relief that she can sleep. She is tearful today and she states that she is just frustrated. She wants to get the help that she needs so she can begin to get better. -[facility] Work Phone: [phone]) [phone] History of Present illness Narrative* On a scale of 0 to 10, the patient rates the pain at 8. * Pain Location: Right arm shoulder to wrist. * Pain Quality: Sharp. * Pain Radiation: Radiates from shoulder to wrist. * Sensory/ Motor: Numbness. * Timing/Duration: Intermittent. * Patient is a 52-year-old female. She has a past medical history significant for arthropathy of the right shoulder and right shoulder rotator cuff tear. She saw Dr. Le. He did discuss surgery withher but he wanted her to have clearance with anesthesia. She also needed to have cardiac clearance.She is working on this. She has an appoint with a puller out next month. * Unfortunate, patient did get very sick. She was in the ICU. She had issues with MRSA per patient became septic. * Patient continues to use [place] 5/325 1 p.o. up to 3 times daily as needed pain. She states that this does help her. She has right shoulder pain that she rates an 8/10. The medication at least gives her enough relief that she can sleep. She states that she is eager to once again progress with the clearances so that she can pursue surgery. She is eager to do this. [facility] Work Phone: [phone] History of Present illness Narrative* Monica Chapa, ENFORCEMENT MANAGER - 05/09/2022 1:15 PM EDT [facility] VOICE PROSTHESIS Evaluation and Fit of Voice Prosthesis Today's Date 05/09/2022 Patient Name: Vj Myers Date of : 1970 Case Name: Speech Therapy - SUPERINTENDENT OPERATING Functional Diagnosis: 1. Aphonia Clinical Information: [employer] Classic Indwelling 16 Fr/ 8 mm large esophageal flange Last Change 02/07/2022 Flushing Device , Cleaning [place], Laryngectomy Tube Fenestrated , size 9, length 36, and small floyd stoma cover Treatments: Pt was seen this date for eval and fit of voice prosthesis, having displaced previously fitted voice prosthesis (pt reports accidentally pushing prosthesis through tracheo-esohageal punture during cleaning/cares. She assures this therapist it did not fall forward and into airway. Patient has had red rubber catheter in place since the time of displacement. Pt reports significant medical changes since last visit with 2 week hospitalization at [facility] for MRSA infection, right arm injury while walking her dog with plan for rotator cuff surgery/repair in near future. Pt is on home O2 although did not have oxygen on during this outpt visit. She is brought to department in wheelchair due to increased fatigue and shortness of breath with walking. Red rubber catheter in place with notable dry blood and irritation to right lateral stomal region (pt reports laryngeal tube has caused increased irritation. Pt reports increased leakage prior to displacement of prosthesis. Removal of red rubber catheter and placement of measuring dilator revealing consistent measurement at 8mm. Sizer/dilator removed and 16 Swiss 8mm large esophageal flange prosthesis placed via gel cap insertion. There was ease of rotation following several sips of water indicative of esophageal flange deployment. Pt was able to voice (alaryngeal voicing) immediate to follow. Trials of color tinged water consumed without appreciated leak through or around prosthesis and valve lumen. Application tab removed and pt provided with flush/brush, laryngeal tube () and Floyd stoma cover. Pt agreeable to contact speech therapy department with any further questions or concerns. Treatment Plan: Frequency of Visits: as needed or every 6 months Duration: order for 1 year of eval and fit of voice prosthesis Interventions: Eval and Fit of Voice Prosthesis (44080) Rehab Potential: good Goals: Speech Therapy: Voice: LT. Patient will utilize and maintain an indwelling voice prosthesis foralaryngeal speech to communicate with familiar and unfamiliar listeners by 01/10/23. ST. Patient will be fitted with appropriate voice prosthesis and demonstrate consistent voicingw/o issue by 01/10/23. 2. Patient will demonstrate independent use of HME via adhesive or laryngeal tube by 01/10/23. 3. Patient and family will be educated to stoma care and management as well as diagnosis specific information and demonstrate understanding by 01/10/23. Monica Chapa, ENFORCEMENT MANAGER STATE LICENSE, [id number] documented in this [id number] History of Present illness Narrative* On a scale of 0 to 10, the patient rates the pain at 7. * Pain Location: Low Back Pain and RIGHT ARM. * Pain Quality: Aching, Sharp, Shooting and Tightness. * Pain Radiation: Right Arm. * Sensory/ Motor: Numbness, Stinging and Weakness. * Timing/Duration: Constant and > 12 weeks duration. * Controlled Substance: * I have personally reviewed the OARRS report for VJ MYERS. I have considered the risks of abuse,dependence, addiction and diversion. * Exacerbating Factors: rest, motion, repetitive motion, standing, stairs and walking. * Alleviating Factors: Medications, Repositioning. * 24 Hour Behavior: * Symptoms are worse in the am. * Symptoms are worse as the day progresses. * Symptoms are worse in the pm. * Symptoms are worse when lying down. [facility] Work Phone: [phone] 714-873305-19-2022 History of Present illness Narrative* 52-year-old female with a medical history of hypertension, hyperlipidemia, hypothyroidism here for the following: * Preoperative risk stratification * -Patient is currently being evaluated for surgery on her right shoulder. * -As part of the preop evaluation the patient admitted to having chest discomfort for the past 2 months. Patient notes that these episodes are not associated with exertion. They are paroxysmal. And are described as pressure lasting about 2-3 minutes. She also notes dyspnea with minimal exertion (base line). Denies any orthopnea/PND/lower extremity edema. Denies any dizziness or lightheadedness. * Notably patient does have a history of laryngeal cancer and has underwent extensive surgery/radiation/chemotherapy. Currently has a tracheostomy in place. [facility] [address] Work Phone: [phone] 754-451105-19-2022 History of Present illness Narrative* On a scale of 0 to 10, the patient rates the pain at 9. * Pain Location: Right shoulder pain. * Pain Quality: Sharp and Throbbing. * Pain Radiation: Radiates down her right arm to her wrist. * Sensory/ Motor: Numbness, Pins and Round O, Weakness and Numbness and tingling in her fingers. * Timing/Duration: Constant and > 12 weeks duration. * Patient is a 51-year-old female. She has a past medical history significant for arthropathy of the right shoulder and right shoulder rotator cuff tear. She saw Dr. Le. He did discuss surgery withher but he wanted her to have clearance with anesthesia. She is working on this. Her primary care also wanted her to have cardiac clearance. She is working on this. She is an appointment in April. * Dr. Le did give her a prescription for [place] that she states did somewhat help. It was not perfect but it was better than nothing. She has right shoulder pain with right arm pain that she rates a9/10. This affects her ability to do things. It affects her ability to come to. It affects her quali ty of life and activity living. Patient cries because the pain can get so bad sometimes. Patient has difficulty sleeping because of the pain. This significantly interferes with her quality of life and activities of daily living. [facility] Phone: [phone] 279-280305-01-2022 History of Present illness Narrative* 52-year-old female with a medical history of hypertension, hyperlipidemia, hypothyroidism here for the following: * Preoperative risk stratification * -Patient is currently being evaluated for surgery on her right shoulder. * -As part of the preop evaluation the patient admitted to having chest discomfort for the past 2 months. Patient notes that these episodes are not associated with exertion. They are paroxysmal. And are described as pressure lasting about 2-3 minutes. She also notes dyspnea with minimal exertion (base line). Denies any orthopnea/PND/lower extremity edema. Denies any dizziness or lightheadedness. * Notably patient does have a history of laryngeal cancer and has underwent extensive surgery/radiation/chemotherapy. Currently has a tracheostomy in place. [employer] Phone: [phone] 576-282304-29-2022 History of Present illness Narrative* 52-year-old female with a medical history of hypertension, hyperlipidemia, hypothyroidism here for the following: * Preoperative risk stratification * -Patient is currently being evaluated for surgery on her right shoulder. * -As part of the preop evaluation the patient admitted to having chest discomfort for the past 2 months. Patient notes that these episodes are not associated with exertion. They are paroxysmal. And are described as pressure lasting about 2-3 minutes. She also notes dyspnea with minimal exertion (base line). Denies any orthopnea/PND/lower extremity edema. Denies any dizziness or lightheadedness. * Notably patient does have a history of laryngeal cancer and has underwent extensive surgery/radiation/chemotherapy. Currently has a tracheostomy in place. [employer] Work Phone: [phone] History of Present illness Narrative* On a scale of 0 to 10, the patient rates the pain at 10. * Pain Location: rt shouder. * Pain Quality: Throbbing and has tenderness in the back of upper arm. * Pain Radiation: down rt arm front and back. * Sensory/ Motor: Numbness, Pins and Round O and rt hand in fingers. * Timing/Duration: Constant and > 12 weeks duration. * Controlled Substance: * I have personally reviewed the OARRS report for VJ MYERS. I have considered the risks of abuse,dependence, addiction and diversion. * Exacerbating Factors: motion. * Alleviating Factors: None. [facility] Work Phone: [phone] History of Present illness Narrative* Mia Karimi, STACY - 02/07/2022 3:30 PM EDT [facility] VOICE PROSTHESIS Evaluation Today's Date 02/07/2022 Patient Name: Vj Myers Date of : 1970 Case Name: Speech Therapy - SUPERINTENDENT OPERATING Functional Diagnosis: 1. Hx of laryngectomy 2. Aphonia Clinical Information: [facility] Classic Indwelling 16 Fr/ 8 mm Last change: 11/2020 Laryngectomy Tube Fenestrated , size 9, length 36 mm Patient had TEP (re-puncture) completed on 01/24/[address] Pantoja. Patient previously in [facility] 16 Fr 8 mm. Treatments: Pt was seen this date for eval and fit of new voice prosthesis after having prior voice prosthesis removed on 01/24/22 (prior SUPERINTENDENT OPERATING was lodged in esophagus and removed by Dr. Pantoja. Patient has had red rubber catheter in place since this time. Stoma inspected with notable healthy appearing tissue and previous tissue growth noted at prior eval/fit no longer present (patient reports this was removed). ENFORCEMENT MANAGER removed red rubber catheter and placed [facility] sizer-dilator - patient measuring between 8 and 10 mm. Patient reported this is consistent with previous measures and 8 mm length SUPERINTENDENT OPERATING has been previously placed. Sizer-dilator removed and Classic 16 Swiss 8mm [facility] Indwelling Voice Prosthesis placed via gel cap insertion with ability to rotate freely following multiple sips of water (indicatve of deployment of esophageal flange). Applicator removed and pt able to produce alaryngeal voicing with minimal effort. Trials of green tinged water consumed without apparent leak. Application tab removed. Patient concerned regarding yeast growth w/classic SUPERINTENDENT OPERATING vs advantage. ENFORCEMENT MANAGER informed patient to call STdept if she notes yeast growth and will order 16 Fr/8 mm Advantage for next placement. Patient verbalized understanding. Treatment Plan: Frequency of Visits: as needed Duration: 1 year Interventions: Eval and fit of SUPERINTENDENT OPERATING (36249) Rehab Potential: good Goals: Speech Therapy: Voice: LT. Patient will utilize and maintain an indwelling voice prosthesis foralaryngeal speech to communicate with familiar and unfamiliar listeners by 01/10/23. ST. Patient will be fitted with appropriate voice prosthesis and demonstrate consistent voicingw/o issue by 01/10/23. 2. Patient will demonstrate independent use of HME via adhesive or laryngeal tube by 01/10/23. 3. Patient and family will be educated to stoma care and management as well as diagnosis specific information and demonstrate understanding by 01/10/23. STACY [place], [id number] documented in this [id number] NoteHNO ID: [id number] Author: Anjum Daniel MD Service: ? Author Type: Physician Type: Progress Notes Filed: 02/06/2022 9:00 PM Note Text: [facility] MULTIPLE SCLEROSIS NEW PATIENT EVALUATION/CONSULTATION Referral source: Lucila Ruff MD [address] [place] [address] [place] [address] Also followed by: Patient Care Team: Lucila Ruff as Referring (Pain Management) PRINCIPAL NEUROLOGIC DIAGNOSIS: white matter abnormality on MRI brain DISEASE SUMMARY Date of onset: NOV-2021 Date of diagnosis of MS: NA Disease course at onset: Monophasic Current disease course: Monophasic Previous disease therapies: NA Current disease therapy: NA Most recent MRI brain: 12/28/2021 Most recent MRI cervical spine: NA CSF: NA JCV serology result and date: NA HISTORY OF ILLNESS: An opinion on this 51 year old woman was requested by the referring physician for a second opinion on abnormal brain MRI. The patient was accompanied by her mother and significant other. Previous records (physician notes, laboratory reports, and radiology reports) and imaging studies were reviewed and summarized. My recommendations will be communicated back to the patient's physician(s) by mail. Follow-up is expected to be with me or the referring physician based on results of planned workup. Ms. Myers initially presented to her local doctors for evaluation of sharp, stabbing pains over the right forehead and neck pain. She had a CT scan of the right shoulder for a rotator cuff injury. There was concern for white matter disease on her brain. She had a follow up MRI of the brain and was referred to [facility] for [facility] evaluation. Current Symptoms: 1. Intermittent blurry vision when watching TV 2. Intermittent weakness in the arms and legs 3. Cramping in the legs 4. Persistent numbness and tingling in the hands 5. Frequently drops objects that she is holding 6. Stress urinary incontinence 7. Problems with short-term memory and concentration 8. Somnolence MS Review of Systems: Denies difficulty with language, visual loss, diplopia, bulbar symptoms, symptoms of spasticity, sensory loss, incoordination, difficulty with gait, bowel symptoms, Lhermitte's phenomenon. Other Pertinent History: 1. Throat cancer - S/p chemoradiation 10 years ago - No cancer recurrence 2. Smoking - 8 year history, 2 ppd - Quit 6 years ago 3. CKD Stage III Neuro-Qol Functions (higher = better functioning) Neuro-Qol Symptoms (higher = worse symptoms) *NeuroQoL is a multi-domain patient-reported quality of life questionnaire. *PHQ-9 is a questionnaire for depressive symptoms, with scores 0-4 indicating none, 5-9 mild, 10-14 moderate, 15-19 moderately severe, and 20-27 severe symptoms. *PROMIS-10 is a patient-reported quality of life measure, typically reported as physical and mental domains. Here scores are expressed as percentiles, where the lowest possible score is one, the highest possible score is 99, and 50 is average. PAST HISTORY: PAST MEDICAL HISTORY Diagnosis Date - Acid reflux - Dyslipidemia - Essential hypertension - Hypothyroidism - Stage 3 chronic kidney disease (HCC) - Throat cancer (HCC) 11/20/2008 stage IV PAST SURGICAL HISTORY Procedure Laterality Date - DELIVERY ONLY x3 - LX REPAIR RECURRENT VENTRAL HERNIA x 5 - PAST SURGICAL HISTORY OF 08/2011 Exp lap, lysis of adhesions, excision of abd mass - TOTAL ABDOMINAL HYSTERECT W/WO RMVL TUBE OVARY supracervical - TRACHEOPLASTY CERVICAL removal and reconstruction - TRACHEOSTOMY, PLANNED Tracheostomy Transfusions: None Current Outpatient Medications Medication Sig - pregabalin (LYRICA) 50 mg capsule Take 50 mg by mouth three times daily. - omeprazole (PRILOSEC) 40 mg capsule Take 40 mg by mouth once daily. - sucralfate (CARAFATE) 1 gram tablet Take 1 g by mouth four times daily. - liothyronine (CYTOMEL) 5 mcg tablet Take 5 mcg by mouth twice daily. - cefdinir (OMNICEF) 300 mg capsule Take 300 mg by mouth twice daily. - sertraline (ZOLOFT) 50 mg tablet Take 75 mg by mouth once daily. - atorvastatin (LIPITOR) 10 mg tablet Take 10 mg by mouth once daily. - ALBUTEROL INHALATION Inhale as instructed. - albuterol HFA (PROVENTIL HFA, VENTOLIN HFA) 90 mcg/actuation inhaler Inhale 2 Puffs as instructed. - levothyroxine 100 mcg ORAL tablet Take 137 mcg by mouth once daily. - esomeprazole (NEXIUM) 40 mg ORAL capsule Take 1 capsule by mouth once daily. No current facility-administered medications for this visit. ALLERGIES Allergen Reactions - Morphine Vomiting - Latex Rash - Plastic Tape [Other] Rash Social History Tobacco Use Smoking status: Former Smoker Packs/day: 2.00 Years: 10.00 Pack years: 20 Types: Cigarettes Quit date: 11/20/2009 Years since quittin.2 Smokeless tobacco: Never Used Marital Status: Single FAMILY HISTORY Problem Relation Age of Onse (more content not included)...[facility]03-18-2022 Instructions* Patient Instructions* Anjum Daniel MD - 02/04/2022 2:30 PM EDT 1. Repeat MRI imaging of the brain in a year 2. If there are any new lesions, come back to see me in clinic and bring your new MRI images [facility] History of Present illness Narrative* Anjum Daniel MD - 02/04/2022 1:41 PM EDT Images from the original note were not included. [facility] FOR MULTIPLE SCLEROSIS NEW PATIENT EVALUATION/CONSULTATION Referral source: Lucila Ruff MD [address] [place] [address] [place] [address] Also followed by: Patient Care Team: Lucila Ruff as Referring (Pain Management) PRINCIPAL NEUROLOGIC DIAGNOSIS: white matter abnormality on MRI brain DISEASE SUMMARY Date of onset: NOV-2021 Date of diagnosis of MS: NA Disease course at onset: Monophasic Current disease course: Monophasic Previous disease therapies: NA Current disease therapy: NA Most recent MRI brain: 12/28/2021 Most recent MRI cervical spine: NA CSF: NA JCV serology result and date: NA HISTORY OF ILLNESS: An opinion on this 51 year old woman was requested by the referring physician for a second opinion on abnormal brain MRI. The patient was accompanied by her mother and significant other. Previous records (physician notes, laboratory reports, and radiology reports) and imaging studies were reviewed and summarized. My recommendations will be communicated back to the patient's physician(s) by mail. Follow-up is expected to be with me or the referring physician based on results of planned workup. Ms. Myers initially presented to her local doctors for evaluation of sharp, stabbing pains over the right forehead and neck pain. She had a CT scan of the right shoulder for a rotator cuff injury. There was concern for white matter disease on her brain. She had a follow up MRI of the brain and was referred to the [facility] for further evaluation. Current Symptoms: 1. Intermittent blurry vision when watching TV 2. Intermittent weakness in the arms and legs 3. Cramping in the legs 4. Persistent numbness and tingling in the hands 5. Frequently drops objects that she is holding 6. Stress urinary incontinence 7. Problems with short-term memory and concentration 8. Somnolence MS Review of Systems: Denies difficulty with language, visual loss, diplopia, bulbar symptoms, symptoms of spasticity, sensory loss, incoordination, difficulty with gait, bowel symptoms, Lhermitte's phenomenon. Other Pertinent History: 1. Throat cancer - S/p chemoradiation 10 years ago - No cancer recurrence 2. Smoking - 8 year history, 2 ppd - Quit 6 years ago 3. CKD Stage III Neuro-Qol Functions (higher = better functioning) Neuro-Qol Symptoms (higher = worse symptoms) *NeuroQoL is a multi-domain patient-reported quality of life questionnaire. *PHQ-9 is a questionnaire for depressive symptoms, with scores 0-4 indicating none, 5-9 mild, 10-14moderate, 15-19 moderately severe, and 20-27 severe symptoms. *PROMIS-10 is a patient-reported quality of life measure, typically reported as physical and mentaldomains. Here scores are expressed as percentiles, where the lowest possible score is one, the highest possible score is 99, and 50 is average. PAST HISTORY: PAST MEDICAL HISTORY Diagnosis Date Acid reflux Dyslipidemia Essential hypertension Hypothyroidism Stage 3 chronic kidney disease (HCC) Throat cancer (HCC) 11/20/2008 stage IV PAST SURGICAL HISTORY Procedure Laterality Date DELIVERY ONLY x3 LX REPAIR RECURRENT VENTRAL HERNIA x 5 PAST SURGICAL HISTORY OF 08/2011 Exp lap, lysis of adhesions, excision of abd mass TOTAL ABDOMINAL HYSTERECT W/WO RMVL TUBE OVARY supracervical TRACHEOPLASTY CERVICAL removal and reconstruction TRACHEOSTOMY, PLANNED Tracheostomy Transfusions: None Current Outpatient Medications Medication Sig pregabalin (LYRICA) 50 mg capsule Take 50 mg by mouth three times daily. omeprazole (PRILOSEC) 40 mg capsule Take 40 mg by mouth once daily. sucralfate (CARAFATE) 1 gram tablet Take 1 g by mouth four times daily. liothyronine (CYTOMEL) 5 mcg tablet Take 5 mcg by mouth twice daily. cefdinir (OMNICEF) 300 mg capsule Take 300 mg by mouth twice daily. sertraline (ZOLOFT) 50 mg tablet Take 75 mg by mouth once daily. atorvastatin (LIPITOR) 10 mg tablet Take 10 mg by mouth once daily. ALBUTEROL INHALATION Inhale as instructed. albuterol HFA (PROVENTIL HFA, VENTOLIN HFA) 90 mcg/actuation inhaler Inhale 2 Puffs as instructed. levothyroxine 100 mcg ORAL tablet Take 137 mcg by mouth once daily. esomeprazole (NEXIUM) 40 mg ORAL capsule Take 1 capsule by mouth once daily. No current facility-administered medications for this visit. ALLERGIES Allergen Reactions Morphine Vomiting Latex Rash Plastic Tape [Other] Rash Social History Tobacco Use Smoking status: Former Smoker Packs/day: 2.00 Years: 10.00 Pack years: 20 Types: Cigarettes Quit date: 11/20/2009 Years since quittin.2 Smokeless tobacco: Never Used Marital Status: Single FAMILY HISTORY Problem Relation Age of Onset Thyroid Mother COPD Father Hypertension Father Heart Father CHF Cancer Sister 20 colon Diabetes Son Borderline Thyroid Maternal Uncle Thyroid Cancer Multiple Sclerosis No Family History Rheumatologic disease No Family History REVIEW OF SYSTEMS: Comprehensive review of systems otherwise was negative, including constitutional, head and neck, cardiovascular, pulmonary, gastrointestinal, endocrine, urologic, reproductive, rheumatic, hematologic, immunologic, dermatologic, and psychiatric. PHYSICAL EXAM: BP 129/90 Pulse 96 Ht 160 cm (5' 3) Wt 108.9 kg (240 lb) BMI 42.51 kg/m Hair, skin, nails, and joints were normal. Neck was supple without Lhermitte's phenomenon. There was no peripheral edema. Tracheostomy. The patient was alert and oriented to person, place, and time with normal language, attention and concentration. Affect was Normal. The patient did not appear depressed. Visual acuity to near card was as follows: OD= 20/30 (with pinhole) OS= 20/30 (with pinhole). Visual chun were full to confrontation. Pupils were 4 mm and briskly reactive OU without a relative afferent pupillary defect. Funduscopic examination was normal without disc edema, erythema, or atrophy. Ocular ductions were full without nystagmus or ataxia. Facial sensation was normal. Muscles of mastication and facial expression were normal. Hearing was intact to finger rub bilaterally. Palatal movements were normal. Sternocleidomastoid and trapezius power were normal. Tongue movements were normal. Unable to assess speech due to tracheostomy. Motor Examination: Right Upper Extremity: Left Upper Extremity: Deltoid 4/5 Deltoid 5/5 Biceps 5/5 Biceps 5/5 Triceps 5/5 Triceps 5/5 Wrist extensors 5/5 Wrist extensors 5/5 Wrist flexors 5/5 Wrist flexors 5/5 Dorsal interossei 5/5 Dorsal interossei 5/5 Abductor pollicis 5/5 Abductor pollicis 5/5 Tone (Quique scale) 0 Tone (Quique scale) 0 Pain-limited effort for right shoulder. Right Lower Extremity: Left Lower Extremity: Hip flexors 5/5 Hip flexors 5/5 Hip extensors 5/5 Hip extensors 5/5 Knee flexors 5/5 Knee flexors 5/5 Knee extensors 5/5 Knee extensors 5/5 Dorsiflexors 5/5 Dorsiflexors 5/5 Plantarflexors 5/5 Plantarflexors 5/5 Toe extensors 5/5 Toe extensors 5/5 Toe flexors 5/5 Toe flexors 5/5 Tone (Quique scale) 0 Tone (Quique scale) 0 Reflexes: brachioradialis +++ brachioradialis +++ biceps +++ biceps +++ triceps ++ triceps ++ patellar ++ patellar ++ Achilles ++ Achilles ++ Morgan's sign Present Morgan's sign Present clonus absent clonus absent plantar response down plantar response down Coordination testing in the arms and legs was performed including [id number], rapid-alternating, and fine movements. Rapid movements were smooth with normal lissa. There was no dysmetria or ataxia. There were not signs of cerebellar dysfunction. Sensory examination: Light touch: Normal all 4 extremities. Vibration: 14 seconds in the right big toe and 12 seconds in the left big toe. Standard gait was antalgic appearing and mildly ataxic. Mild to moderate instability with tandem gait. REVIEW OF OUTSIDE RECORDS: Electronic medical records reviewed. Pertinent information included in the HPI. REVIEW OF IMAGING STUDIES: I personally reviewed the following images: 12/28/2021 MR Brain WWO IVCON: Moderate burden of white matter disease most consistent with small vessel ischemic changes. ASSESSMENT: Vj Myers is a 51-year-old woman with a history of smoking, throat cancer s/p chemoradiation 10 years ago, hypertension, and hyperlipidemia, who presents for further evaluation of an incidental discovery of white matter lesions on an MRI of the brain. Her history is not suggestive of MS. Her examination is unremarkable. Her MRI is most characteristic of small vessel ischemia, explainable by her history of smoking, chemoradiation, hypertension, and dyslipidemia. RECOMMENDATIONS: 1. Ms. Myers will talk to her PCP about repeating an MRI brain in a year to look for any interval change 2. If there are new lesions, I will see her back in clinic to discuss the imaging results I spent a total of 60 minutes on the date of the service which included preparing to see the patient, [id number] patient care, completing clinical documentation, performing a medically appropriate examination and counseling and educating the patient/family/caregiver. Anjum Daniel MD Staff Neurologist [facility] documented in this encounter[facility]02-15-2022 History of Present illness Narrative* On a scale of 0 to 10, the patient rates the pain at 7. * Pain Location: Low Back Pain and RIGHT ARM. * Pain Quality: Aching, Sharp, Shooting and Tightness. * Pain Radiation: Right Arm. * Sensory/ Motor: Numbness, Stinging and Weakness. * Timing/Duration: Constant and > 12 weeks duration. * Controlled Substance: * I have personally reviewed the OARRS report for VJ MYERS. I have considered the risks of abuse,dependence, addiction and diversion. * Exacerbating Factors: rest, motion, repetitive motion, standing, stairs and walking. * Alleviating Factors: Medications, Repositioning. * 24 Hour Behavior: * Symptoms are worse in the am. * Symptoms are worse as the day progresses. * Symptoms are worse in the pm. * Symptoms are worse when lying down. [facility] [employer] Phone: [phone] History of Present illness Narrative* On a scale of 0 to 10, the patient rates the pain at 7. * Pain Location: Low Back Pain and RIGHT ARM. * Pain Quality: Aching, Sharp, Shooting and Tightness. * Pain Radiation: Right Arm. * Sensory/ Motor: Numbness, Stinging and Weakness. * Timing/Duration: Constant and > 12 weeks duration. * Exacerbating Factors: rest, motion, repetitive motion, standing, stairs and walking. * Alleviating Factors: Medications, Repositioning. * 24 Hour Behavior: * Symptoms are worse in the am. * Symptoms are worse as the day progresses. * Symptoms are worse in the pm. * Symptoms are worse when lying down. [facility] Work Phone: [phone]) [phone] History of Present illness Narrative* On a scale of 0 to 10, the patient rates the pain at 8. * Pain Location: Low Back Pain and RIGHT SHOULDER. * Pain Quality: Stabbing. * Pain Radiation: HIPS,BUTTOCK,LEGS. * Sensory/ Motor: Numbness, Pins and Round O and RIGHT ARM. * Timing/Duration: Constant. * Controlled Substance: * I have personally reviewed the OARRS report for VJ LOUIS. I have considered the risks of abuse,dependence, addiction and diversion. * Exacerbating Factors: motion, repetitive motion, standing, stairs, walking and ADL. * Alleviating Factors: Repositioning. * 24 Hour Behavior: * Symptoms are the same in the am. * Symptoms are worse as the day progresses. * Symptoms are worse in the pm. * Symptoms are the same when lying down. [facility] Phone: [phone] History of Present illness Narrative* On a scale of 0 to 10, the patient rates the pain at 9. * Pain Location: Low Back Pain, R arm and R>L. * Pain Quality: Stabbing and constant. * Pain Radiation: jeffrey hips, buttocks, legs. * Sensory/ Motor: Numbness, Pins and Round O and R arm feels like it going to sleep all the time). * Timing/Duration: Constant and > 12 weeks duration. * Exacerbating Factors: standing. * Alleviating Factors: Repositioning. * 24 Hour Behavior: * Symptoms are the same in the am. * Symptoms are worse as the day progresses. * Symptoms are worse in the pm. * Symptoms are the same when lying down. * Effect of Movement on Symptoms: * Bending makes symptoms worse. * Lying doesn't change symptoms. * Rising from sitting makes symptoms worse. * Sitting doesn't change symptoms. * Standing makes symptoms worse. * Rising from supine to sitting makes symptoms worse. * Turning makes symptoms worse. * Walking makes symptoms worse. * Twisting makes symptoms worse. * Weather makes symptoms worse. * Coughing/sneezing makes symptoms worse. * Pushing motion makes symptoms worse. * Pulling motion makes symptoms worse. * Lifting: Worse. * Which of these are most important to the patient? daily activites. * Psychosocial Factors vs Last Visit: * Physical Functioning: Worse. * Family Relationships: Worse. * Social Relationships: Worse. * Mood: Worse. * Sleep Patterns: Worse. * Overall Functioning: Worse. * Response to current treatment:. n/a. * Goals for Pain Management: * ORT = 7. [facility] Phone: [phone] 323-647310-10-2021 Chief complaint Narrative - Reported* V [facility] referral we received their note scanned into our EMR she reports they are going to repeat the MRI in 1 year and see if there are any changes. Today reports still having pain in her Rt shoulder going into her arm rates 10/10 and at night if she has her arm down to her side it isso painful she cannot lift her arm, hurts to put a seat belt on, and the Lyrica 50mg is not helpingthe pain at all. * This is a 51-year-old female here for a follow-up appointment for chief complaint of right-sided shoulder and arm pain. She reports that since her last visit the shoulder and arm pain has remained persistent and severe. It interrupts her function during the day and her sleep at night. She states that her back pain is actually been better. She does not think the Lyrica helps at all for the shoulder but it might help for the back. She saw the neurologist who did not think she had MS. She denies new neurologic symptoms or issues with bladder or bowel control. * The patient's past medical, social, and family history along with medications and allergies are available and were reviewed. [facility] Work Phone: discharge summary Author Dr. Bernal [facility] March 31, 2023 5:58pm Note Date/Time March 31, 2023 5:58p [facility] Medical Records Department [address] [place] [address] Discharge Summary 03/31/23 1752 MR#: [id number] Acct: [id number] Name: VJ MYERS Rep #:[id number] : 1970 52 From: Bartolo Bernal DO PCP: CHARY Nava Status:ADM IN [facility] Providers Date of Admission: 03/31/23 Primary Care Physician: CHARY Nava Reason For Visit: DESIRE FOR DETOXIFICATION Diagnosis Discharge Diagnosis (1) Desire for detoxification: Status: Acute (2) Alcohol abuse: Status: Acute Code(s): F10.10 - Alcohol abuse, uncomplicated (3) Obesity: Status: Chronic Code(s): E66.9 - Obesity, unspecified (4) Diarrhea: Status: Chronic Code(s): R19.7 - Diarrhea, unspecified Plan 1. Acute alcohol withdrawal #2 chronic alcoholism #3 dysfunctional voice prosthesis #4 hyperlipidemia #5 hypothyroidism #6 chronic depression #7 essential hypertension #8 chronic diarrhea-etiology unclear Medications at Discharge Home Medications atorvastatin 10 mg tablet 10 mg PO QHS cholesterol 01/11/21 sertraline 50 mg tablet 75 mg PO DAILY depression 01/11/21 levothyroxine 112 mcg tablet 137 mcg PO DAILY THYROID 10/04/21 liothyronine 5 mcg tablet 10 mcg PO DAILY THYROID 10/04/21 losartan 100 mg-hydrochlorothiazide 25 mg tablet 1 tab PO DAILY BP 10/04/21 gabapentin 100 mg tablet 300 mg PO BID back pain 11/29/21 hydrocodone-acetaminophen 5-325mg 5mg-325mg 1 tab PO Q8H PRN PRN Pain 04/26/22 hydroxyzine HCl 25 mg tablet 25 mg PO 4X/DAY PRN PRN Anxiety 04/26/22 albuterol sulfate 90 mcg/actuation aerosol inhaler (Ventolin HFA) 1 inh inhalation Q6H PRN shortness of breath or wheezing #8.5 grams 04/28/22 carvedilol 6.25 mg tablet 6.25 mg PO BID blood pressure 04/29/22 famotidine 20 mg tablet 20 mg PO DAILY . 04/29/22 ipratropium 0.5 mg-albuterol 3 mg (2.5 mg base)/3 mL nebulization soln 3 ml inhalation Q4H PRN shortness of breath or wheezing #180 mL 05/04/22 Hospital Course Operations None Procedures None Summary of Care Provided Minutes Spent on Discharge: 70 Hospital Course: This 52-year-old white female was seen in the emergency room at [facility] requesting services for alcohol detox. Patient's medical problems included essential hypertension, hypothyroidism, and previous tracheostomy due to laryngeal cancer. Patient was admitted to [place] [address], orderswere entered using alcohol detox order set and she was seen in consultation by addiction social security benefits interviewer. Patient had a chronic leakage of esophageal contentsinto her voice prosthesis, this appeared to be a chronic problem that the patient had not addressed as an outpatient, she was seen in the hospital by speech therapy and speech therapy recommended the patient be strictly n.p.o. I attempted to get the patient transferred to tertiary hospital without success, [facility] was going to give me a call back to let me know whether they could except the patient and the patient decided to sign out AMA. On 03/31/2023, patient was seen and examined: On examination she appeared in goodhealth and spirits, she does not appear to be in any distress. Vital signs as documented. Skin warm and dry and without overt rashes. Neck-there is a permanent stoma in place. Lungs clear, normal air movement was noted. Heart examnotable for regular rhythm, normal sounds and absence of murmurs, rubs or gallops. Abdomen unremarkable and without evidence of organomegaly, masses, or abdominal aortic enlargement, bowel sounds are present in all 4 quadrants, no abdominal tenderness was noted. Extremities nonedematous, no cyanosis was noted,no clubbing was noted. Neuro: Cranial nerves II through XII are grossly intact,no focal motor deficits were noted, sensation to light touch and pinprick is intact, motor exam 5/5 throughout. Psych: Patient is alert and oriented x3, shedoes not appear anxious or depressed, she does not appear agitated. Patient was discharged AGAINST MEDICAL ADVICE on 03/31/2023, she told nursing that she was going to go to [facility] for replacement of her voice prosthesis. I let the emergency room here know that we were not able to except the patient for detox services if she came back here due to this medical problems she had with her voice prosthesis, I also let addiction social servicesknow that the patient could not be admitted here unless this was addressed before she was admitted here again. 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 Status Active Problem Clinical Problem Chronic Disease or Condition Related Malnutrition Etiology severe related to alcohol abuse Signs/Symptoms as evidenced by 55lbs (21.1%) weight loss in 11 months and PO intakes <75% of estimated energy needs for >1 month Status Active Problem Recommendation Dietitian Recommendations/Changes RD will liberalize diet to Regular to optimize oral intakes and promote weight maintenance. RD will order 120mL EPHP TID with medpass and Ensure Pudding BID with meals to provide supplemental energy and promote weight maintenance . Weight / BMI Weight Weight: 93 kg Body Mass Index (BMI) 37.5 ABG / Lab / Microbiology Data Result Diagrams: 03/30/23 21:40 03/30/23 21:40 Laboratory: Laboratory Results - last 24 hr 03/30/23 21:38: Urine Opiates Screen NEGATIVE, Urine Methadone Screen NEGATIVE, Ur Barbiturates Screen NEGATIVE, Ur Phencyclidine Scrn NEGATIVE, Ur AmphetaminesScreen NEGATIVE, MDMA (Ecstasy) Screen NEGATIVE, U Benzodiazepines Scrn NEGATIVE, Urine Cocaine Screen NEGATIVE, U Cannabinoids Screen NEGATIVE, Ur DrugScreen Comment 03/30/23 21:40: WBC 8.4, RBC 4.60, Hgb 15.1 H, Hct 47.0, MCV 102.2 H, MCH 32.8 H, MCHC 32.1, RDW Std Deviation 52.1 H, RDW Coeff of Rosa 13.8, Plt Count 296, MPV9.2, Immature Gran % (Auto) 0.800, Neut % (Auto) 58.1, Lymph % (Auto) 28.5, Chaves% (Auto) 5.7, Eos % (Auto) 5.2 H, Baso % (Auto) 1.7 H, Absolute Neuts (auto) 4.9, Absolute Lymphs (auto) 2.39, Nucleated RBC % 0 03/30/23 21:40: Sodium 140, Potassium 3.9, Chloride 103, Carbon Dioxide 26.0, Anion Gap 11, BUN 11, Creatinine 0.96, Estim Creat Clear Calc 59.20, Est GFR (MDRD) Af Amer 78, Est GFR (MDRD) Non-Af 65, BUN/Creatinine Ratio 11.5, Glucose 93, Calcium 8.8, Total Bilirubin 0.30, AST 62 H, ALT 21, Alkaline Phosphatase 121 H, Total Protein 8.0, Albumin 3.6, Globulin 4.4 H, Albumin/Globulin Ratio 0.8 L 03/30/23 21:40: Ethyl Alcohol 320.0 H* Microbiology: Microbiology 03/30/23 22:40 Stool Stool Lactoferrin - Final 03/30/23 22:40 Stool Enteric Bacteriology - Final 03/30/23 22:40 Stool C. difficile DNA Amplification - Final Meaningful Use Info Meaningful Use Diagnoses (Choose all that apply): None applicable Discharge Plan Admission Admit Date/Time: 03/31/23 01:19 Attending Provider: Bartolo Bernal Primary Care Provider: Iqra Rose NP Consulting Providers: Robe Greenwood Discharge Orders/Prescriptions Prescriptions: No Action sertraline 50 MG tablet 75 mg PO DAILY atorvastatin 10 MG tablet 10 mg PO QHS liothyronine 5 mcg tablet 10 mcg PO DAILY losartan-hydrochlorothiazide 100-25 mg tablet 1 tab PO DAILY levothyroxine 112 mcg tablet 137 mcg PO DAILY gabapentin 100 mg Tablet 300 mg PO BID hydrocodone-acetaminophen 5-325 mg tablet 1 tab PO Q8H PRN PRN (Reason: Pain) hydroxyzine HCl 25 mg tablet 25 mg PO 4X/DAY PRN PRN (Reason: Anxiety) albuterol sulfate [Ventolin HFA] 90 mcg/actuation HFA aerosol inhaler 1 inh inhalation Q6H PRN (Reason: shortness of breath or wheezing) Qty: 8.5 0RF famotidine 20 mg Tablet 20 mg PO DAILY carvedilol 6.25 mg tablet 6.25 mg PO BID ipratropium-albuterol 0.5 mg-3 mg(2.5 mg base)/3 mL solution for nebulization 3 ml inhalation Q4H PRN (Reason: shortness of breath or wheezing) Qty: 180 1RF Referrals / Follow Up: Iqra Rose NP, [employer]OR-C [Primary Care Provider] - Disposition Discharge Orders: Discharge Patient (Routine); Ordered 03/31/23 Ordered By: Dr. Bartolo Bernal Charges/Coding Visit Charges OBSV E&M: 79429 Observ/hosp same date L2 03/31/23 1758 <Electronically signed by Bartolo Bernal DO> Cosigner Signature (if applicable): CC: CHARY Rose; Dr. Bartolo Bernal DO~ Signed [facility] Work Phone: Discharge summary Author Dipak Vargas [facility] March 22, 2024 1:06pm Note Date/Time March 22, 2024 1:02pm [facility] Medical Records Department [address] [place] [address] Discharge Summary 03/22/24 1258 MR#: [id number] Acct: [id number] Name: JOANAVJ YADAV Rep #:[id number] : 1970 53 From: Dipak Vargas MD PCP: CHARY Nava Status:ADM IN Location: ICU ICU08-1 Providers Date of Admission: 03/21/24 Date of Discharge: 03/22/24 Primary Care Physician: CHARY Nava Consultations 03/21/24 18:39 Consult: Senior Net Software Engineer / Pulmonary Medicine Routine Consulting Provider: Intensivists/Pulmonary Med Reason for Consult: TRACHESTOMY on vent EMERGENT Consult: No MD Notified: Yes Date Notified: 03/21/24 Time Notified: 17:44 Method of Notification: ED Physician Initiated Reason For Visit: ALCOHOL USE WITHDRAWL Diagnosis Discharge Diagnosis (1) Desire for detoxification: Status: Acute (2) Alcohol abuse: Status: Acute Code(s): F10.10 - Alcohol abuse, uncomplicated Plan Patient is a 53-year-old lady with history of laryngeal CA status post tracheostomy who presented to the emergency department seeking help from alcoholdependence. Admitted to regular nursing floor for further management 1. Chronic alcohol dependence at risk for withdrawal ? Patient has been admitted to regular nursing floor managed with phenobarb along with adjuvant medications including gabapentin, Bentyl, hydroxyzine and clonidine as needed for alcohol withdrawal symptoms. Patient was also placed onthiamine and folic acid 2. Laryngeal CA ? Status post tracheostomy. Patient was supposed to be on vent at night howeverdoes not use significant 3. COPD ? Currently not in exacerbation aerosol treatment as needed 4. Acute kidney injury ? Baseline creatinine 0.9, creatinine on admission was 1.35 managed with IV fluid with subsequent monitoring of electrolyte 5. CKD stage IIIa rule out 6. Hypertension - Blood pressure controlled, home medications continued with dose adjustment as needed 7. Dyslipidemia -Patient is on statin therapy, continued at home dose 8. Hypothyroidism on levo and liothyronine. Levothyroxine was held on admission resumed 9. GERD ? On PPI 10. Depression with anxiety ? Patient was prescribed citalopram and apparently noncompliant 11. Class I obesity with BMI of 34.8 ? Complicating care weight loss advised 11. DVT prophylaxis ? SC Lovenox Time spent in the patient's overall evaluation,decision-making process, review of diagnostic data, adjustment of management, discussion with other providers, nursing nursing and ancillary staff involved in patient's care documentation, 52 Minutes Patient left AGAINST MEDICAL ADVICE attempt made for patient to rescind her decision proved futile. She was instructed to come back to the emergency department if she change her mind Medications at Discharge Home Medications atorvastatin 10 mg tablet 20 mg PO QHS cholesterol 01/11/21 sertraline 50 mg tablet 75 mg PO DAILY depression 01/11/21 levothyroxine 112 mcg tablet 137 mcg PO DAILY THYROID 10/04/21 liothyronine 5 mcg tablet 10 mcg PO DAILY THYROID 10/04/21 losartan 100 mg-hydrochlorothiazide 25 mg tablet 1 tab PO DAILY BP 10/04/21 gabapentin 100 mg tablet 300 mg PO BID back pain 11/29/21 hydrocodone-acetaminophen 5-325mg 5mg-325mg 1 tab PO Q8H PRN PRN Pain 04/26/22 hydroxyzine HCl 25 mg tablet 25 mg PO 4X/DAY PRN PRN Anxiety 04/26/22 albuterol sulfate 90 mcg/actuation aerosol inhaler (Ventolin HFA) 1 inh inhalation Q6H PRN shortness of breath or wheezing #8.5 grams 04/28/22 carvedilol 6.25 mg tablet 6.25 mg PO BID blood pressure 04/29/22 ipratropium 0.5 mg-albuterol 3 mg (2.5 mg base)/3 mL nebulization soln 3 ml inhalation Q4H PRN shortness of breath or wheezing #180 mL 05/04/22 amlodipine 10 mg tablet 10 mg PO DAILY 03/21/24 citalopram 10 mg tablet 20 mg PO DAILY 03/21/24 diflunisal 500 mg tablet 500 mg PO DAILY 03/21/24 folic acid 1 mg tablet 1 mg PO DAILY 03/21/24 magnesium oxide 400 mg (241.3 mg magnesium) tablet 400 mg PO DAILY 03/21/24 omeprazole 40 mg capsule,delayed release 40 mg PO DAILY 03/21/24 ondansetron HCl 4 mg tablet 4 mg PO Q4H PRN PRN nausea and vomiting 03/21/24 oxycodone-acetaminophen 5 mg-325 mg tablet 1 tab PO TID PRN PRN pain 03/21/24 Physical Exam Narrative GENERAL: cooperative HEENT: Atraumatic; tracheostomy stoma in place EYES; Anicteric, Normal Conjunctiva NECK; supple, normal thyroid, RESPIRATORY: Diminished to auscultation CARDIOVASCULAR: Regular S1 S2, GI: soft, normoactive bowel sounds, : No Renal angle tenderness; EXTREMITIES: No edema, no clubbing, MUSCULOSKELETAL: no muscle wasting NEURO: Awake; no lateralizing signs. SKIN: No Rash PSYCH; Flat affect Weight / BMI Weight Weight: 86.4 kg Body Mass Index (BMI) 34.8 ABG / Lab / Microbiology Data 03/22/24 04:50 03/22/24 04:50 Laboratory: Laboratory Results - last 24 hr 03/21/24 16:10: WBC 7.9, RBC 4.24, Hgb 12.0, Hct 36.9 L, MCV 87.0, MCH 28.3, MCHC 32.5, RDW Std Deviation 46.7 H, RDW Coeff of Rosa 14.8 H, Plt Count 373, MPV10.1, Immature Gran % (Auto) 0.500, Neut % (Auto) 60.5, Lymph % (Auto) 29.5, Chaves % (Auto) 5.7, Eos % (Auto) 2.8, Baso % (Auto) 1.0, Absolute Neuts (auto) 4.8, Absolute Lymphs (auto) 2.32, Nucleated RBC % 0, Sodium 140, Potassium 4.0, Chloride 105, Carbon Dioxide 27.0, Anion Gap 8, BUN 9, Creatinine 1.35 H, Est GFR (MDRD) Af Amer 53 L, Est GFR (MDRD) Non-Af 44 L, BUN/Creatinine Ratio 6.7 L,Glucose 92, Calcium 8.9, Phosphorus 3.6, Magnesium 1.8, Total Bilirubin 0.30, AST 13 L, ALT < 6 L, Alkaline Phosphatase 84, Total Protein 6.3 L, Albumin 3.0 L, Globulin 3.3, Albumin/Globulin Ratio 0.9, Serum , Qual NEGATIVE, Ethyl Alcohol 170.0 03/21/24 16:50: Urine Opiates Screen NEGATIVE, Urine Methadone Screen NEGATIVE, Ur Barbiturates Screen NEGATIVE, Ur Phencyclidine Scrn NEGATIVE, Ur AmphetaminesScreen NEGATIVE, MDMA (Ecstasy) Screen NEGATIVE, U Benzodiazepines Scrn NEGATIVE, Urine Cocaine Screen NEGATIVE, U Cannabinoids Screen NEGATIVE, Ur DrugScreen Comment 03/22/24 04:50: WBC 5.0, RBC 3.83 L, Hgb 10.7 L, Hct 34.2 L, MCV 89.3, MCH 27.9,MCHC 31.3 L, RDW Std Deviation 49.4 H, RDW Coeff of Rosa 15.2 H, Plt Count 231, MPV 10.0, Immature Gran % (Auto) 0.400, Neut % (Auto) 56.9, Lymph % (Auto) 29.9,Chaves % (Auto) 8.2, Eos % (Auto) 3.2, Baso % (Auto) 1.4 H, Absolute Neuts (auto) 2.9, Absolute Lymphs (auto) 1.50, Nucleated RBC % 0, Sodium 141, Potassium 3.8, Chloride 111 H, Carbon Dioxide 28.0, Anion Gap 2 L, BUN 8, Creatinine 1.04 H, Estim Creat Clear Calc 63.82, Est GFR (MDRD) Af Amer 71, Est GFR (MDRD) Non-Af 59 L, BUN/Creatinine Ratio 7.7 L, Glucose 100, Calcium 8.4 L, TSH 3.03, Free T4 1.14 D/C Instructions Discharge Diet: No restrictions Discharge Activity: Return to Normal Activity Call your doctor if you observe: Fever of 101 or Higher, Shortness of breath, Fainting spells and Chest pain Meaningful Use Info Meaningful Use Meaningful Use Diagnoses (Choose all that apply): None applicable Ischemic Stroke Statin Dosing Therapy Reference: STATIN DOSE THERAPY REFERENCE: * Patients > 75 years receive moderate or high dose statin therapy. * Patients 75 years or YOUNGER should receive HIGH intensity statin dose unless contraindicated. You will be required to document reason for non-treatment if statin daily dose does not meet guidelines. HIGH DOSE STATIN THERAPY DAILY Atorvastatin > than or = to 40 mg Rosuvastatin > than or = to 20 mg Amlodipine + Atorvastatin > than or = to 2.5/40 mg Ezetimibe + Simvastatin 10/80 mg Simvastatin 80mg Discharge Plan Admission Admit Date/Time: 03/21/24 17:39 Attending Provider: Dipak Vargas Primary Care Provider: Iqra Rose NP Consulting Providers: Rodrigo Newsome Discharge Orders/Prescriptions Prescriptions: No Action sertraline 50 MG tablet 75 mg PO DAILY atorvastatin 10 MG tablet 20 mg PO QHS liothyronine 5 mcg tablet 10 mcg PO DAILY losartan-hydrochlorothiazide 100-25 mg tablet 1 tab PO DAILY levothyroxine 112 mcg tablet 137 mcg PO DAILY gabapentin 100 mg Tablet 300 mg PO BID hydrocodone-acetaminophen 5-325 mg tablet 1 tab PO Q8H PRN PRN (Reason: Pain) hydroxyzine HCl 25 mg tablet 25 mg PO 4X/DAY PRN PRN (Reason: Anxiety) albuterol sulfate [Ventolin HFA] 90 mcg/actuation HFA aerosol inhaler 1 inh inhalation Q6H PRN (Reason: shortness of breath or wheezing) Qty: 8.5 0RF carvedilol 6.25 mg tablet 6.25 mg PO BID ipratropium-albuterol 0.5 mg-3 mg(2.5 mg base)/3 mL solution for nebulization 3 ml inhalation Q4H PRN (Reason: shortness of breath or wheezing) Qty: 180 1RF omeprazole 40 mg capsule,delayed release(DR/EC) 40 mg PO DAILY diflunisal 500 mg tablet 500 mg PO DAILY magnesium oxide 400 mg (241.3 mg magnesium) tablet 400 mg PO DAILY folic acid 1 mg tablet 1 mg PO DAILY citalopram 10 mg tablet 20 mg PO DAILY amlodipine 10 mg tablet 10 mg PO DAILY ondansetron HCl 4 mg tablet 4 mg PO Q4H PRN PRN (Reason: nausea and vomiting) oxycodone-acetaminophen 5-325 mg tablet 1 tab PO TID PRN PRN (Reason: pain) Referrals / Follow Up: Iqra Rose NP, [employer]OR-C [Primary Care Provider] - Disposition Disposition (needs filled in before D/C Order can be placed): Against Medical Advice Charges/Coding Visit Charges Inpatient E&M: 62194 Disch Hosp >30min 03/22/24 1306 <Electronically signed by Dipak Vargas MD> Cosigner Signature (if applicable): CC: [employer] T[employer]OR-C Iqra Rose; Dr. Dipak Vargas MD~ Signed [facility] Work Phone: Evaluation note* Diagnosis Hx of laryngectomy- Primary Aphonia documented in this encounter [facility] note* Diagnosis White matter abnormality on MRI of brain Nonspecific (abnormal) findings on radiological and other examination of skull and head documented in this encounter [facility] note* Diagnosis Hx of laryngectomy Aphonia documented in this encounter [facility] noteNo assessment information availableWSelect [facility] Work Phone: Evaluation note* Diagnosis Onset Date Resolution Status Morbid obesity acute COPD exacerbation chronic [facility] Work Phone: Evaluation note* Diagnosis Onset Date Resolution Status Morbid obesity acute COPD exacerbation chronic Hypoxia acute Pneumonia acute [facility] Work Phone: Evaluation note* Diagnosis Onset Date Resolution Status Morbid obesity acute COPD exacerbation chronic Acute hypoxemic respiratory failure acute Dyspnea acute Hypoxia acute Larynx cancer acute Morbid obesity acute MRSA bacteremia acute Multiple tracheobronchial mucus plugs acute Pneumonia acute COPD exacerbation chronic [facility] Work Phone: Evaluation note* Diagnosis Aphonia- [facility]- [facility]* Diagnosis History of laryngectomy- Primary Other postprocedural status Aphonia [facility]* Diagnosis Onset Date Resolution Status Alcohol abuse acute Desire for detoxification [place] Diarrhea chronic Obesity [facility] Work Phone: Evaluation note* Diagnosis Pneumonia due to gram-negative bacteria- Primary Pneumonia due to other gram-negative bacteria Pneumonia of both lower lobes due to infectious organism Respiratory distress Other dyspnea and respiratory abnormality Pain of right upper extremity Pneumonia due to gram-negative bacteria Pneumonia due to other gram-negative bacteria documented in this encounter [facility] Work Phone: Evaluation note* Diagnosis Vomiting, unspecified Alcohol abuse, uncomplicated documented in this encounter [facility] Work Phone: Evaluation note* Diagnosis Alcohol abuse, uncomplicated documented in this encounter [facility] Work Phone: Evaluation note* Diagnosis Vomiting, unspecified Alcohol abuse, uncomplicated documented in this encounter [facility] Work Phone: Evaluation note* Diagnosis Cellulitis of right lower extremity- Primary Tracheostomy status ([facility]/HCC) Tracheostomy status Malignant neoplasm of larynx ([facility]/HCC) Malignant neoplasm of larynx, unspecified site Stage 4 chronic kidney disease (CMS/HCC) Chronic obstructive pulmonary disease with (acute) exacerbation ([facility]/HCC) Alcoholism ([facility]/HCC) Other and unspecified alcohol dependence, unspecified drinking behavior Body mass index (BMI) 45.0-49.9, adult [place] [place] Tracheostomy dependent ([facility] [place] Tracheostomy status Hypothyroidism, unspecified type Other specified abnormal findings of blood chemistry documented in this encounter [facility] Work Phone: Evaluation note* Diagnosis Fall, initial encounter- Primary Head injury, initial encounter Compression fracture of L5 vertebra, initial encounter ([facility]) Urinary tract infection without hematuria, site unspecified documented in this encounter [facility] Work Phone: Evaluation note* Diagnosis Compression fracture of L5 vertebra with routine healing, subsequent encounter- Primary Acute midline low back pain with left-sided sciatica documented in this encounter [facility] Work Phone: Evaluation note* Diagnosis Compression fracture of L5 vertebra with routine healing, subsequent encounter Acute midline low back pain with left-sided sciatica Lumbar radiculopathy Thoracic or lumbosacral neuritis or radiculitis, unspecified Compression fracture of L5 vertebra, initial encounter ([facility] [place] Chronic bilateral low back pain with bilateral sciatica documented in this encounter [facility] Work Phone: Evaluation note* Diagnosis Onset Date Resolution Status Alcohol abuse acute Alcohol dependence acute Desire for detoxification [place] Larynx cancer [facility] Work Phone: Evaluation note* Diagnosis Tracheostomy status (Multi)- Primary Tracheostomy status Thyroid disease Unspecified disorder of thyroid Primary hypertension Unspecified essential hypertension Chronic obstructive pulmonary disease with (acute) exacerbation (Multi) documented in this encounter [facility] Work Phone: Evaluation note* Diagnosis Lumbar radiculopathy Thoracic or lumbosacral neuritis or radiculitis, unspecified documented in this encounter [facility] Work Phone: Evaluation note* Diagnosis Paresthesias- Primary Disturbance of skin sensation documented in this encounter [facility] Work Phone: Evaluation note* Diagnosis Fall, initial encounter- Primary Weakness Other malaise and fatigue Urinary tract infection with hematuria, site unspecified Tremor Abnormal involuntary movements documented in this encounter [facility] Work Phone: Evaluation note* Diagnosis Encounter to establish care- Primary Cellulitis of right lower extremity Tracheostomy status (Multi) Tracheostomy status Malignant neoplasm of larynx (Multi) Malignant neoplasm of larynx, unspecified site Stage 4 chronic kidney disease (Multi) Chronic obstructive pulmonary disease with (acute) exacerbation (Multi) Alcoholism (Multi) Other and unspecified alcohol dependence, unspecified drinking behavior Body mass index (BMI) 45.0-49.9, adult (Multi) Tracheostomy dependent (Multi) Tracheostomy status Hypothyroidism, unspecified type Other specified abnormal findings of blood chemistry Stage 2 chronic kidney disease- Primary Primary hypertension Unspecified essential hypertension Tracheostomy status (Multi) Tracheostomy status Generalized weakness- Primary Falls frequently Personal history of fall Tremors of nervous system Contusion of left knee, initial encounter Strain of neck muscle, initial encounter Alcohol abuse Nondependent alcohol abuse, unspecified drinking behavior documented in this encounter [facility] Work Phone: Evaluation note* Diagnosis Encounter to establish care- Primary Cellulitis of right lower extremity Tracheostomy status (Multi) Tracheostomy status Malignant neoplasm of larynx Malignant neoplasm of larynx, unspecified site Stage 4 chronic kidney disease (Multi) Chronic obstructive pulmonary disease with (acute) exacerbation (Multi) Alcoholism (Multi) Other and unspecified alcohol dependence, unspecified drinking behavior Body mass index (BMI) 45.0-49.9, adult (Multi) Tracheostomy dependent (Multi) Tracheostomy status Hypothyroidism, unspecified type Other specified abnormal findings of blood chemistry Stage 2 chronic kidney disease- Primary Primary hypertension Unspecified essential hypertension Tracheostomy status (Multi) Tracheostomy status Unresponsive episode- Primary Other alteration of consciousness Unresponsive episode Other alteration of consciousness Cystitis Unspecified cystitis Elevated troponin I level Acute cystitis without hematuria Chronic obstructive pulmonary disease with (acute) exacerbation (Multi) documented in this encounter [facility] Work Phone: Evaluation note* Diagnosis Encounter to establish care- Primary Cellulitis of right lower extremity Tracheostomy status (Multi) Tracheostomy status Malignant neoplasm of larynx Malignant neoplasm of larynx, unspecified site Stage 4 chronic kidney disease (Multi) Chronic obstructive pulmonary disease with (acute) exacerbation (Multi) Alcoholism (Multi) Other and unspecified alcohol dependence, unspecified drinking behavior Body mass index (BMI) 45.0-49.9, adult (Multi) Tracheostomy dependent (Multi) Tracheostomy status Hypothyroidism, unspecified type Other specified abnormal findings of blood chemistry Stage 2 chronic kidney disease- Primary Primary hypertension Unspecified essential hypertension Tracheostomy status (Multi) Tracheostomy status COPD exacerbation (Multi)- Primary Obstructive chronic bronchitis with exacerbation Non compliance w medication regimen documented in this encounter [facility] Work Phone: Evaluation note* Diagnosis Encounter to establish care- Primary Cellulitis of right lower extremity Tracheostomy status (Multi) Tracheostomy status Malignant neoplasm of larynx Malignant neoplasm of larynx, unspecified site Stage 4 chronic kidney disease (Multi) Chronic obstructive pulmonary disease with (acute) exacerbation (Multi) Alcoholism (Multi) Other and unspecified alcohol dependence, unspecified drinking behavior Body mass index (BMI) 45.0-49.9, adult (Multi) Tracheostomy dependent (Multi) Tracheostomy status Hypothyroidism, unspecified type Other specified abnormal findings of blood chemistry Stage 2 chronic kidney disease- Primary Primary hypertension Unspecified essential hypertension Tracheostomy status (Multi) Tracheostomy status UTI (urinary tract infection)- Primary Urinary tract infection, site not specified Sepsis, due to unspecified organism, unspecified whether acute organ dysfunction present (Multi) Hypokalemia Hypopotassemia Lactic acidosis Acidosis Sepsis, due to unspecified organism, unspecified whether acute organ dysfunction present (Multi) documented in this encounter [facility] Work Phone: Evaluation note* Diagnosis Encounter to establish care- Primary Cellulitis of right lower extremity Tracheostomy status (Multi) Tracheostomy status Malignant neoplasm of larynx Malignant neoplasm of larynx, unspecified site Stage 4 chronic kidney disease (Multi) Chronic obstructive pulmonary disease with (acute) exacerbation (Multi) Alcoholism (Multi) Other and unspecified alcohol dependence, unspecified drinking behavior Body mass index (BMI) 45.0-49.9, adult (Multi) Tracheostomy dependent (Multi) Tracheostomy status Hypothyroidism, unspecified type Other specified abnormal findings of blood chemistry Stage 2 chronic kidney disease- Primary Primary hypertension Unspecified essential hypertension Tracheostomy status (Multi) Tracheostomy status UTI (urinary tract infection)- Primary Urinary tract infection, site not specified Sepsis, due to unspecified organism, unspecified whether acute organ dysfunction present (Multi) Hypokalemia Hypopotassemia Lactic acidosis Acidosis Sepsis, due to unspecified organism, unspecified whether acute organ dysfunction present (Multi) Tracheoesophageal fistula- Primary Oropharyngeal dysphagia Dysphagia, oropharyngeal phase Tracheoesophageal fistula- Primary Acute on chronic hypoxic respiratory failure- Primary Acute respiratory failure with hypoxia Acute on chronic hypoxic respiratory failure Tracheoesophageal fistula Tracheoesophageal fistula documented in this encounter [facility] Work Phone: Evaluation note* Diagnosis Encounter to establish care- Primary Cellulitis of right lower extremity Tracheostomy status (Multi) Tracheostomy status Malignant neoplasm of larynx Malignant neoplasm of larynx, unspecified site Stage 4 chronic kidney disease (Multi) Chronic obstructive pulmonary disease with (acute) exacerbation (Multi) Alcoholism (Multi) Other and unspecified alcohol dependence, unspecified drinking behavior Body mass index (BMI) 45.0-49.9, adult (Multi) Tracheostomy dependent (Multi) Tracheostomy status Hypothyroidism, unspecified type Other specified abnormal findings of blood chemistry Stage 2 chronic kidney disease- Primary Primary hypertension Unspecified essential hypertension Tracheostomy status (Multi) Tracheostomy status UTI (urinary tract infection)- Primary Urinary tract infection, site not specified Sepsis, due to unspecified organism, unspecified whether acute organ dysfunction present (Multi) Hypokalemia Hypopotassemia Lactic acidosis Acidosis Sepsis, due to unspecified organism, unspecified whether acute organ dysfunction present (Multi) Tracheoesophageal fistula- Primary Tracheoesophageal fistula Oropharyngeal dysphagia Dysphagia, oropharyngeal phase documented in this encounter [facility] Work Phone: Evaluation note* Diagnosis Encounter to establish care- Primary Cellulitis of right lower extremity Tracheostomy status (Multi) Tracheostomy status Malignant neoplasm of larynx Malignant neoplasm of larynx, unspecified site Stage 4 chronic kidney disease (Multi) Chronic obstructive pulmonary disease with (acute) exacerbation (Multi) Alcoholism (Multi) Other and unspecified alcohol dependence, unspecified drinking behavior Body mass index (BMI) 45.0-49.9, adult (Multi) Tracheostomy dependent (Multi) Tracheostomy status Hypothyroidism, unspecified type Other specified abnormal findings of blood chemistry Stage 2 chronic kidney disease- Primary Primary hypertension Unspecified essential hypertension Tracheostomy status (Multi) Tracheostomy status UTI (urinary tract infection)- Primary Urinary tract infection, site not specified Sepsis, due to unspecified organism, unspecified whether acute organ dysfunction present (Multi) Hypokalemia Hypopotassemia Lactic acidosis Acidosis Sepsis, due to unspecified organism, unspecified whether acute organ dysfunction present (Multi) Tracheoesophageal fistula- Primary Oropharyngeal dysphagia Dysphagia, oropharyngeal phase Tracheoesophageal fistula- Primary Acute on chronic hypoxic respiratory failure- Primary Acute respiratory failure with hypoxia Acute on chronic hypoxic respiratory failure Acute hypoxic respiratory failure- Primary Acute hypoxic respiratory failure Acute on chronic hypoxic respiratory failure Status post insertion of percutaneous endoscopic gastrostomy (PEG) tube (Multi) Pneumonia due to gram-negative bacteria (Multi) Pneumonia due to other gram-negative bacteria Primary hypertension Unspecified essential hypertension Thyroid disease Unspecified disorder of thyroid Anxiety Anxiety state, unspecified Depression, unspecified depression type Alcoholism (Multi) Other and unspecified alcohol dependence, unspecified drinking behavior Tracheoesophageal fistula Status post insertion of percutaneous endoscopic gastrostomy (PEG) tube (Multi) Tracheoesophageal fistula documented in this encounter [facility] Work Phone: Evaluation note* Diagnosis Encounter to establish care- Primary Cellulitis of right lower extremity Tracheostomy status (Multi) Tracheostomy status Malignant neoplasm of larynx Malignant neoplasm of larynx, unspecified site Stage 4 chronic kidney disease (Multi) Chronic obstructive pulmonary disease with (acute) exacerbation (Multi) Alcoholism (Multi) Other and unspecified alcohol dependence, unspecified drinking behavior Body mass index (BMI) 45.0-49.9, adult (Multi) Tracheostomy dependent (Multi) Tracheostomy status Hypothyroidism, unspecified type Other specified abnormal findings of blood chemistry Stage 2 chronic kidney disease- Primary Primary hypertension Unspecified essential hypertension Tracheostomy status (Multi) Tracheostomy status UTI (urinary tract infection)- Primary Urinary tract infection, site not specified Sepsis, due to unspecified organism, unspecified whether acute organ dysfunction present (Multi) Hypokalemia Hypopotassemia Lactic acidosis Acidosis Sepsis, due to unspecified organism, unspecified whether acute organ dysfunction present (Multi) Tracheoesophageal fistula- Primary Oropharyngeal dysphagia Dysphagia, oropharyngeal phase Tracheoesophageal fistula- Primary Tracheoesophageal fistula Acute on chronic hypoxic respiratory failure- Primary Acute respiratory failure with hypoxia Acute on chronic hypoxic respiratory failure Acute hypoxic respiratory failure- Primary Acute hypoxic respiratory failure Acute on chronic hypoxic respiratory failure Status post insertion of percutaneous endoscopic gastrostomy (PEG) tube (Multi) Pneumonia due to gram-negative bacteria (Multi) Pneumonia due to other gram-negative bacteria Primary hypertension Unspecified essential hypertension Thyroid disease Unspecified disorder of thyroid Anxiety Anxiety state, unspecified Depression, unspecified depression type Alcoholism (Multi) Other and unspecified alcohol dependence, unspecified drinking behavior Tracheoesophageal fistula Status post insertion of percutaneous endoscopic gastrostomy (PEG) tube (Multi) documented in this encounter [facility] Work Phone: Evaluation note* Diagnosis Encounter to establish care- Primary Cellulitis of right lower extremity Tracheostomy status (Multi) Tracheostomy status Malignant neoplasm of larynx Malignant neoplasm of larynx, unspecified site Stage 4 chronic kidney disease (Multi) Chronic obstructive pulmonary disease with (acute) exacerbation (Multi) Alcoholism (Multi) Other and unspecified alcohol dependence, unspecified drinking behavior Body mass index (BMI) 45.0-49.9, adult (Multi) Tracheostomy dependent (Multi) Tracheostomy status Hypothyroidism, unspecified type Other specified abnormal findings of blood chemistry Stage 2 chronic kidney disease- Primary Primary hypertension Unspecified essential hypertension Tracheostomy status (Multi) Tracheostomy status UTI (urinary tract infection)- Primary Urinary tract infection, site not specified Sepsis, due to unspecified organism, unspecified whether acute organ dysfunction present (Multi) Hypokalemia Hypopotassemia Lactic acidosis Acidosis Sepsis, due to unspecified organism, unspecified whether acute organ dysfunction present (Multi) Tracheoesophageal fistula- Primary Oropharyngeal dysphagia Dysphagia, oropharyngeal phase Acute on chronic hypoxic respiratory failure- Primary Acute respiratory failure with hypoxia Acute on chronic hypoxic respiratory failure Acute hypoxic respiratory failure- Primary Acute hypoxic respiratory failure Acute on chronic hypoxic respiratory failure Status post insertion of percutaneous endoscopic gastrostomy (PEG) tube (Multi) Pneumonia due to gram-negative bacteria (Multi) Pneumonia due to other gram-negative bacteria Primary hypertension Unspecified essential hypertension Thyroid disease Unspecified disorder of thyroid Anxiety Anxiety state, unspecified Depression, unspecified depression type Alcoholism (Multi) Other and unspecified alcohol dependence, unspecified drinking behavior Tracheoesophageal fistula Status post insertion of percutaneous endoscopic gastrostomy (PEG) tube (Multi) Tracheoesophageal fistula documented in this encounter [facility] Work Phone: Evaluation note* Diagnosis Encounter to establish care- Primary Cellulitis of right lower extremity Tracheostomy status (Multi) Tracheostomy status Malignant neoplasm of larynx Malignant neoplasm of larynx, unspecified site Stage 4 chronic kidney disease (Multi) Chronic obstructive pulmonary disease with (acute) exacerbation (Multi) Alcoholism (Multi) Other and unspecified alcohol dependence, unspecified drinking behavior Body mass index (BMI) 45.0-49.9, adult (Multi) Tracheostomy dependent (Multi) Tracheostomy status Hypothyroidism, unspecified type Other specified abnormal findings of blood chemistry Stage 2 chronic kidney disease- Primary Primary hypertension Unspecified essential hypertension Tracheostomy status (Multi) Tracheostomy status UTI (urinary tract infection)- Primary Urinary tract infection, site not specified Sepsis, due to unspecified organism, unspecified whether acute organ dysfunction present (Multi) Hypokalemia Hypopotassemia Lactic acidosis Acidosis Sepsis, due to unspecified organism, unspecified whether acute organ dysfunction present (Multi) Tracheoesophageal fistula- Primary Oropharyngeal dysphagia Dysphagia, oropharyngeal phase Acute on chronic hypoxic respiratory failure- Primary Acute respiratory failure with hypoxia Acute on chronic hypoxic respiratory failure Acute hypoxic respiratory failure- Primary Acute hypoxic respiratory failure Acute on chronic hypoxic respiratory failure Status post insertion of percutaneous endoscopic gastrostomy (PEG) tube (Multi) Pneumonia due to gram-negative bacteria (Multi) Pneumonia due to other gram-negative bacteria Primary hypertension Unspecified essential hypertension Thyroid disease Unspecified disorder of thyroid Anxiety Anxiety state, unspecified Depression, unspecified depression type Alcoholism (Multi) Other and unspecified alcohol dependence, unspecified drinking behavior Tracheoesophageal fistula Status post insertion of percutaneous endoscopic gastrostomy (PEG) tube (Multi) Tracheoesophageal fistula documented in this encounter [facility] Work Phone: Evaluation note* Diagnosis Encounter to establish care- Primary Cellulitis of right lower extremity Tracheostomy status (Multi) Tracheostomy status Malignant neoplasm of larynx Malignant neoplasm of larynx, unspecified site Stage 4 chronic kidney disease (Multi) Chronic obstructive pulmonary disease with (acute) exacerbation (Multi) Alcoholism (Multi) Other and unspecified alcohol dependence, unspecified drinking behavior Body mass index (BMI) 45.0-49.9, adult (Multi) Tracheostomy dependent (Multi) Tracheostomy status Hypothyroidism, unspecified type Other specified abnormal findings of blood chemistry Stage 2 chronic kidney disease- Primary Primary hypertension Unspecified essential hypertension Tracheostomy status (Multi) Tracheostomy status UTI (urinary tract infection)- Primary Urinary tract infection, site not specified Sepsis, due to unspecified organism, unspecified whether acute organ dysfunction present (Multi) Hypokalemia Hypopotassemia Lactic acidosis Acidosis Sepsis, due to unspecified organism, unspecified whether acute organ dysfunction present (Multi) Tracheoesophageal fistula- Primary Oropharyngeal dysphagia Dysphagia, oropharyngeal phase Acute on chronic hypoxic respiratory failure- Primary Acute respiratory failure with hypoxia Acute on chronic hypoxic respiratory failure Acute hypoxic respiratory failure- Primary Acute hypoxic respiratory failure Acute on chronic hypoxic respiratory failure Status post insertion of percutaneous endoscopic gastrostomy (PEG) tube (Multi) Pneumonia due to gram-negative bacteria (Multi) Pneumonia due to other gram-negative bacteria Primary hypertension Unspecified essential hypertension Thyroid disease Unspecified disorder of thyroid Anxiety Anxiety state, unspecified Depression, unspecified depression type Alcoholism (Multi) Other and unspecified alcohol dependence, unspecified drinking behavior Tracheoesophageal fistula Status post insertion of percutaneous endoscopic gastrostomy (PEG) tube (Multi) H/O laryngectomy Dysphagia, unspecified type Other specified hypothyroidism documented in this encounter [facility] Work Phone: Evaluation note* Diagnosis Encounter to establish care- Primary Cellulitis of right lower extremity Tracheostomy status (Multi) Tracheostomy status Malignant neoplasm of larynx (Multi) Malignant neoplasm of larynx, unspecified site Stage 4 chronic kidney disease (Multi) Chronic obstructive pulmonary disease with (acute) exacerbation (Multi) Alcoholism (Multi) Other and unspecified alcohol dependence, unspecified drinking behavior Body mass index (BMI) 45.0-49.9, adult ([facility]) Tracheostomy dependent (Multi) Tracheostomy status Hypothyroidism, unspecified type Other specified abnormal findings of blood chemistry Stage 2 chronic kidney disease- Primary Primary hypertension Unspecified essential hypertension Tracheostomy status (Multi) Tracheostomy status UTI (urinary tract infection)- Primary Urinary tract infection, site not specified Sepsis, due to unspecified organism, unspecified whether acute organ dysfunction present (Multi) Hypokalemia Hypopotassemia Lactic acidosis Acidosis Sepsis, due to unspecified organism, unspecified whether acute organ dysfunction present (Multi) Tracheoesophageal fistula- Primary Oropharyngeal dysphagia Dysphagia, oropharyngeal phase Acute on chronic hypoxic respiratory failure- Primary Acute respiratory failure with hypoxia Acute on chronic hypoxic respiratory failure Acute hypoxic respiratory failure- Primary Acute hypoxic respiratory failure Acute on chronic hypoxic respiratory failure Status post insertion of percutaneous endoscopic gastrostomy (PEG) tube (Multi) Pneumonia due to gram-negative bacteria (Multi) Pneumonia due to other gram-negative bacteria Primary hypertension Unspecified essential hypertension Thyroid disease Unspecified disorder of thyroid Anxiety Anxiety state, unspecified Depression, unspecified depression type Alcoholism (Multi) Other and unspecified alcohol dependence, unspecified drinking behavior Tracheoesophageal fistula Status post insertion of percutaneous endoscopic gastrostomy (PEG) tube (Multi) H/O laryngectomy- Primary Other specified hypothyroidism Tracheoesophageal fistula documented in this encounter [facility] Work Phone: Hospital Discharge instructions* Attachments The following attachments cannot be sent through Care Everywhere. * Urinary Tract Infection, Adult ED ([place]) * Vertebral Compression Fracture Discharge Instructions ([place]) * Preventing falls in adults ([place]) [facility]* Attachments The following attachments cannot be sent through Care Everywhere. * Tremor ([place]) * Preventing Falls ED ([place]) * Urinary Tract Infection, Adult ED ([place]) * Chronic kidney disease ([place]) [facility]* Attachments The following attachments cannot be sent through Care Everywhere. * Exacerbation of COPD Discharge Instructions ([place]) [facility]: Reason for referral (narrative)* Consultation (Routine) - Authorized Specialty Diagnoses / Procedures Referred By Asuncion hightower Referred To Contact Family Medicine / Primary Care Ton Lin, [address] [place] [address] [place] [address] Referral ID Status Reason Start Date Expiration Date Visits Requested Visits Authorized [id number] Authorized Specialty Services Required 02/02/2024 02/01/2025 1 1 [facility] Work Phone: Resmus for referral (narrative)* Consultation (Routine) - Authorized Specialty Diagnoses / Procedures Referred By Asuncion hightower Referred To Contact Pain Medicine Diagnoses Compression fracture of L5 vertebra with routine healing, subsequent encounter Acute midline low back pain with left-sided sciatica Pattie Sun, [employer] [address] [facility], [address] [place] [address] Referral ID Status Reason Start Date Expiration Date Visits Requested Visits Authorized [id number] Authorized Specialty Services Required 02/06/2024 02/05/2025 1 1 [facility] [facility] Work Phone: Reynvf for referral (narrative)* Consultation (Routine) - Authorized Specialty Diagnoses / Procedures Referred By Contac t Referred To Contact Pulmonary Disease / Pulmonology Diagnoses Tracheostomy status (Multi) Chronic obstructive pulmonary disease with (acute) exacerbation (Multi) Blas Zelaya MD MPH [address] [facility], [place] [address] [place] [address] Mingo Jimenez DO [address] [place] [address] [place] [id number] Referral ID Status Reason Start Date Expiration Date Visits Requested Visits Authorized [id number] Authorized Specialty Services Required 03/25/2024 03/25/2025 1 1 [facility] Work Phone: Reaagm for referral (narrative)* Procedure (Routine) - Authorized Specialty Diagnoses / Procedures Referred By Contac t Referred To Contact Pain Medicine / Procedural Diagnoses Lumbar radiculopathy Procedures Epidural Steroid Injection Rosey Lan PA-C [address] [place] [address] [phone] Referral ID Status Reason Start Date Expiration Date Visits Requested Visits Authorized [id number] Authorized Perform Procedure 04/02/2024 04/02/2025 1 1 [facility] Work Phone: Refdmk for visit Narrative* Procedure (Routine) - Authorized Specialty Diagnoses / Procedures Referred By Contac t Referred To Contact Pain Medicine / Procedural Diagnoses Lumbar radiculopathy Procedures Epidural Steroid Injection Rosey Lan PA-C [address] [place] [address] [place] [address] [phone] Referral ID Status Reason Start Date Expiration Date Visits Requested Visits Authorized [id number] Authorized Perform Procedure 04/02/2024 04/02/2025 1 1 [facility] Work Phone: Reason for visit Narrative* Auth/Cert Specialty Diagnoses / Procedures Referred By Contac t Referred To Contact Diagnoses Tracheoesophageal fistula Procedures - Huma Thomas, [address] [place] [address] Phone: tel: fax: [facility] [address] [facility] [place] [address] Referral ID Status Reason Start Date Expiration Date Visits Re quested Visits Authorized [id number] 1 1 [facility] Work Phone: Reszkn for visit Narrative* Auth/Cert Specialty Diagnoses / Procedures Referred By Contac t Referred To Contact Diagnoses Hypoxia [place] [address] [place] [address] Phone: tel: fax: [facility] [address] [place] [address] Referral ID Status Reason Start Date Expiration Date Visits Re quested Visits Authorized [id number] 1 1 [facility] Work Phone: Reuehp for visit Narrative* Auth/Cert Specialty Diagnoses / Procedures Referred By Contac t Referred To Contact Diagnoses Tracheoesophageal fistula Tracheoesophageal fistula [J86.0] Procedures PA EGD ENDOSCOPIC STENT PLACEMENT W/WIRE& DILATION PA BRNCHSC INCL FLUOR GDNCE DX W/CELL WASHG SPX EGD, WITH STENT INSERTION BRONCHOSCOPY, [place] [address] [address] [id number] Phone: tel: fax: [facility] [place] [address] [place] [address] fax: Referral ID Status Reason Start Date Expiration Date Visits Re quested Visits Authorized [id number] [facility] Work Phone: Reason for visit Narrative* Imaging (Routine) - Authorized Specialty Diagnoses / Procedures Referred By Contac t Referred To Contact Radiology Diagnoses Tracheoesophageal fistula Procedures XR chest 2 [place] [address] [place] [address] Phone: tel: fax: Referral ID Status Reason Start Date Expiration Date Visits Requested Visits Authorized [id number] Authorized Perform Procedure 07/24/2025 08/23/2026 1 1 [facility] Work Phone: Summary Purpose Family History No Family History Records Found Relationship Condition Age at Onset Recorded Date/T shannon mother Cerebrovascular accident (CVA) Unknown Cardiac disease Unknown Hypertension Unknown sister Malignant neoplasm Unknown Unknown Family Member Name Dates Details Family history of lung cance r: Mother(V16.1, Z80.1) Status:Active Family history of malignant neoplasm of colon: Sister(V16.0, Z80.0) Status:Active Family history of heart fail ure: Father, Grandmother(V17.49, Z82.49) Status:Active Family history of diabetes m ellitus: Brother(V18.0, Z83.3) Status:Active Unknown Family Member Name Dates Details Family history of lung cance r: Mother(V16.1, Z80.1) Status:Active Family history of malignant neoplasm of colon: Sister(V16.0, Z80.0) Status:Active Family history of heart fail ure: Father, Grandmother(V17.49, Z82.49) Status:Active Family history of diabetes m ellitus: Brother(V18.0, Z83.3) Status:Active Unknown Family Member Name Dates Details Family history of lung cance r: Mother(V16.1, Z80.1) Status:Active Family history of malignant neoplasm of colon: Sister(V16.0, Z80.0) Status:Active Family history of heart fail ure: Father, Grandmother(V17.49, Z82.49) Status:Active Family history of diabetes m ellitus: Brother(V18.0, Z83.3) Status:Active Unknown Family Member Name Dates Details Family history of malignant neoplasm of colon: Sister(V16.0, Z80.0) Status:Active Family history of heart fail ure: Father, Grandmother(V17.49, Z82.49) Status:Active Family history of diabetes m ellitus: Brother(V18.0, Z83.3) Status:Active Family history of lung cance r: Mother(V16.1, Z80.1) Status:Active Unknown Family Member Name Dates Details Family history of lung cance r: Mother(V16.1, Z80.1) Status:Active Family history of malignant neoplasm of colon: Sister(V16.0, Z80.0) Status:Active Family history of heart fail ure: Father, Grandmother(V17.49, Z82.49) Status:Active Family history of diabetes m ellitus: Brother(V18.0, Z83.3) Status:Active Unknown Family Member Name Dates Details Family history of lung cance r: Mother(V16.1, Z80.1) Status:Active Family history of malignant neoplasm of colon: Sister(V16.0, Z80.0) Status:Active Family history of heart fail ure: Father, Grandmother(V17.49, Z82.49) Status:Active Family history of diabetes m ellitus: Brother(V18.0, Z83.3) Status:Active Unknown Family Member Name Dates Details Family history of lung cance r: Mother(V16.1, Z80.1) Status:Active Family history of malignant neoplasm of colon: Sister(V16.0, Z80.0) Status:Active Family history of heart fail ure: Father, Grandmother(V17.49, Z82.49) Status:Active Family history of diabetes m ellitus: Brother(V18.0, Z83.3) Status:Active Unknown Family Member Name Dates Details Family history of lung cance r: Mother(V16.1, Z80.1) Status:Active Family history of malignant neoplasm of colon: Sister(V16.0, Z80.0) Status:Active Family history of heart fail ure: Father, Grandmother(V17.49, Z82.49) Status:Active Family history of diabetes m ellitus: Brother(V18.0, Z83.3) Status:Active Unknown Family Member Name Dates Details Family history of lung cance r: Mother(V16.1, Z80.1) Status:Active Family history of malignant neoplasm of colon: Sister(V16.0, Z80.0) Status:Active Family history of heart fail ure: Father, Grandmother(V17.49, Z82.49) Status:Active Family history of diabetes m ellitus: Brother(V18.0, Z83.3) Status:Active Unknown Family Member Name Dates Details Family history of lung cance r: Mother(V16.1, Z80.1) Status:Active Family history of malignant neoplasm of colon: Sister(V16.0, Z80.0) Status:Active Family history of heart fail ure: Father, Grandmother(V17.49, Z82.49) Status:Active Family history of diabetes m ellitus: Brother(V18.0, Z83.3) Status:Active Unknown Family Member Name Dates Details Family history of lung cance r: Mother(V16.1, Z80.1) Status:Active Family history of malignant neoplasm of colon: Sister(V16.0, Z80.0) Status:Active Family history of heart fail ure: Father, Grandmother(V17.49, Z82.49) Status:Active Family history of diabetes m ellitus: Brother(V18.0, Z83.3) Status:Active Unknown Family Member Name Dates Details Family history of lung cance r: Mother(V16.1, Z80.1) Status:Active Family history of malignant neoplasm of colon: Sister(V16.0, Z80.0) Status:Active Family history of heart fail ure: Father, Grandmother(V17.49, Z82.49) Status:Active Family history of diabetes m ellitus: Brother(V18.0, Z83.3) Status:Active Unknown Family Member Name Dates Details Family history of lung cance r: Mother(V16.1, Z80.1) Status:Active Family history of malignant neoplasm of colon: Sister(V16.0, Z80.0) Status:Active Family history of heart fail ure: Father, Grandmother(V17.49, Z82.49) Status:Active Family history of diabetes m ellitus: Brother(V18.0, Z83.3) Status:Active Unknown Family Member Name Dates Details Family history of lung cance r: Mother(V16.1, Z80.1) Status:Active Family history of malignant neoplasm of colon: Sister(V16.0, Z80.0) Status:Active Family history of heart fail ure: Father, Grandmother(V17.49, Z82.49) Status:Active Family history of diabetes m ellitus: Brother(V18.0, Z83.3) Status:Active Unknown Family Member Name Dates Details Family history of lung cance r: Mother(V16.1, Z80.1) Status:Active Family history of malignant neoplasm of colon: Sister(V16.0, Z80.0) Status:Active Family history of heart fail ure: Father, Grandmother(V17.49, Z82.49) Status:Active Family history of diabetes m ellitus: Brother(V18.0, Z83.3) Status:Active Unknown Family Member Name Dates Details Family history of lung cance r: Mother(V16.1, Z80.1) Status:Active Family history of malignant neoplasm of colon: Sister(V16.0, Z80.0) Status:Active Family history of heart fail ure: Father, Grandmother(V17.49, Z82.49) Status:Active Family history of diabetes m ellitus: Brother(V18.0, Z83.3) Status:Active Unknown Family Member Name Dates Details Family history of lung cance r: Mother(V16.1, Z80.1) Status:Active Family history of malignant neoplasm of colon: Sister(V16.0, Z80.0) Status:Active Family history of heart fail ure: Father, Grandmother(V17.49, Z82.49) Status:Active Family history of diabetes m ellitus: Brother(V18.0, Z83.3) Status:Active Unknown Family Member Name Dates Details Family history of lung cance r: Mother(V16.1, Z80.1) Status:Active Family history of malignant neoplasm of colon: Sister(V16.0, Z80.0) Status:Active Family history of heart fail ure: Father, Grandmother(V17.49, Z82.49) Status:Active Family history of diabetes m ellitus: Brother(V18.0, Z83.3) Status:Active Unknown Family Member Name Dates Details Family history of lung cance r: Mother(V16.1, Z80.1) Status:Active Family history of malignant neoplasm of colon: Sister(V16.0, Z80.0) Status:Active Family history of heart fail ure: Father, Grandmother(V17.49, Z82.49) Status:Active Family history of diabetes m ellitus: Brother(V18.0, Z83.3) Status:Active Unknown Family Member Name Dates Details Family history of lung cance r: Mother(V16.1, Z80.1) Status:Active Family history of malignant neoplasm of colon: Sister(V16.0, Z80.0) Status:Active Family history of heart fail ure: Father, Grandmother(V17.49, Z82.49) Status:Active Family history of diabetes m ellitus: Brother(V18.0, Z83.3) Status:Active Unknown Family Member Name Dates Details Family history of lung cance r: Mother(V16.1, Z80.1) Status:Active Family history of malignant neoplasm of colon: Sister(V16.0, Z80.0) Status:Active Family history of heart fail ure: Father, Grandmother(V17.49, Z82.49) Status:Active Family history of diabetes m ellitus: Brother(V18.0, Z83.3) Status:Active Unknown Family Member Name Dates Details Family history of lung cance r: Mother(V16.1, Z80.1) Status:Active Family history of malignant neoplasm of colon: Sister(V16.0, Z80.0) Status:Active Family history of heart fail ure: Father, Grandmother(V17.49, Z82.49) Status:Active Family history of diabetes m ellitus: Brother(V18.0, Z83.3) Status:Active Unknown Family Member Name Dates Details Family history of lung cance r: Mother(V16.1, Z80.1) Status:Active Family history of malignant neoplasm of colon: Sister(V16.0, Z80.0) Status:Active Family history of heart fail ure: Father, Grandmother(V17.49, Z82.49) Status:Active Family history of diabetes m ellitus: Brother(V18.0, Z83.3) Status:Active Advance Directives No Advanced Directives Records Found Date Activated Date Inactivated Comments 01/07/2025 10:00 PM Question Answer Comments Plan of Care: Code Status Discussion Completed Decision Maker: Patient Date Activated Date Inactivated Comments 11/01/2023 1:41 PM 01/07/2025 10:00 PM Question Answer Comments Plan of Care: Code Status Discussion Completed Decision Maker: Patient Date Activated Date Inactivated Comments 10/23/2023 6:29 PM 11/01/2023 1:41 PM Question Answer Comments Plan of Care: Code Status Discussion Completed Decision Maker: Patient Documents on File Type Date Recorded 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 and Livin g Will 06/17/2019 1:25 PM Documents on File Type Date Recorded 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 and Livin g Will 10/08/2019 10:39 AM Documents on File Type Date Recorded 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 and Livin g Will 10/08/2019 10:39 AM Documents on File Type Date Recorded 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 and Livin g Will 11/09/2020 3:02 PM Documents on File Type Date Recorded 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 and Livin g Will 11/09/2020 3:02 PM Documents on File Type Date Recorded 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 and Livin g Will 07/27/2019 11:04 AM Advance Directive Response Recorded Date/ Time Name of Medical Power of Senior Marketing Manager MOTHER November 29, 2021 9:34am Advance Directives No September 1:46pm Living Will Yes January 20, 2022 2:54pm Power of Senior Marketing Manager Yes January 20 2:54pm Advance Directive Response Recorded Date/ Time Name of Medical Power of Senior Marketing Manager MOTHER Nirali 10th, 2022 9:34am Name of Medical Power of Senior Marketing Manager MOTHER January 20, 2022 2:54pm Advance Directives No September 1:46pm Living Will Yes April 26, 2022 1 :08am Power of Senior Marketing Manager Yes April 26, 2022 1:08am Advance Directive Response Recorded Date/ Time Name of Medical Power of Senior Marketing Manager MOTHER November 29, 2021 9:34am Name of Medical Power of Senior Marketing Manager MOTHER January 20, 2022 2:54pm Name of Medical Power of Senior Marketing Manager Herrera Mathieu April 26, 2022 1:08am Advance Directives No September 1:46pm Living Will No April 29, 2022 1:46pm Power of Senior Marketing Manager No April 29 1:46pm Advance Directive Response Recorded Date/ Time Name of Medical Power of Senior Marketing Manager MOTHER November 29, 2021 9:34am Name of Medical Power of Senior Marketing Manager MOTHER January 20, 2022 2:54pm Name of Medical Power of Senior Marketing Manager Herrera Murdock April 26, 2022 1:08am Advance Directives No September 1:46pm Living Will No April 29, 2022 4:32pm Power of Senior Marketing Manager No April 29 4:32pm Advance Directive Response Recorded Date/ Time Advance Directives No September 1:46pm Living Will No March 30, 2023 9 :48pm Power of Senior Marketing Manager No March 30, 2023 9:48pm Advance Directive Response Recorded Date/ Time Advance Directives No September 1:46pm Living Will No March 31, 2023 2 :06am Power of Senior Marketing Manager No March 31, 2023 2:06am Latest Code Status on File Code Status Date Activated Date Inactivated Comments Full Code 11/01/2023 1:41 PM Question Answer Comments Plan of Care: Code Status Discussion Completed Decision Maker: Patient Code Status History Code Status Date Activated Date Inactivated Comments Full Code 10/23/2023 6:29 PM 11/01/2023 1:41 PM Question Answer Comments Plan of Care: Code Status Discussion Completed Decision Maker: Patient Latest Code Status on File Code Status Date Activated Date Inactivated Comments Full Code 11/01/2023 1:41 PM Question Answer Comments Plan of Care: Code Status Discussion Completed Decision Maker: Patient Code Status History Code Status Date Activated Date Inactivated Comments Full Code 10/23/2023 6:29 PM 11/01/2023 1:41 PM Question Answer Comments Plan of Care: Code Status Discussion Completed Decision Maker: Patient Latest Code Status on File Code Status Date Activated Date Inactivated Comments Full Code 11/01/2023 1:41 PM Question Answer Comments Plan of Care: Code Status Discussion Completed Decision Maker: Patient Code Status History Code Status Date Activated Date Inactivated Comments Full Code 10/23/2023 6:29 PM 11/01/2023 1:41 PM Question Answer Comments Plan of Care: Code Status Discussion Completed Decision Maker: Patient Latest Code Status on File Code Status Date Activated Date Inactivated Comments Full Code 11/01/2023 1:41 PM Question Answer Comments Plan of Care: Code Status Discussion Completed Decision Maker: Patient Code Status History Code Status Date Activated Date Inactivated Comments Full Code 10/23/2023 6:29 PM 11/01/2023 1:41 PM Question Answer Comments Plan of Care: Code Status Discussion Completed Decision Maker: Patient Date Activated Date Inactivated Comments 11/01/2023 1:41 PM Date Activated Date Inactivated Comments 10/23/2023 6:29 PM 11/01/2023 1:41 PM Advance Directive Response Recorded Date/ Time Advance Directives No September 1:46pm Living Will Yes March 21, 2024 4: 30pm Power of Senior Marketing Manager Yes March 21, 2024 4:30pm Name of Medical Power of Senior Marketing Manager herrera fabian March 21, 2024 4:30pm Advance Directive Response Recorded Date/ Time Name of Medical Power of Senior Marketing Manager Herrera Garcia/bhupendra bennett March 21, 2024 6:41pm Advance Directives No September 1:46pm Living Will Yes March 21, 2024 6: 41pm Power of Senior Marketing Manager Yes March 21, 2024 6:41pm Date Activated Date Inactivated Comments 11/01/2023 1:41 PM Question Answer Comments Plan of Care: Code Status Discussion Completed Decision Maker: Patient Date Activated Date Inactivated Comments 10/23/2023 6:29 PM 11/01/2023 1:41 PM Question Answer Comments Plan of Care: Code Status Discussion Completed Decision Maker: Patient Date Activated Date Inactivated Comments 01/07/2025 10:00 PM Date Activated Date Inactivated Comments 11/01/2023 1:41 PM 01/07/2025 10:00 PM Date Activated Date Inactivated Comments 10/23/2023 6:29 PM 11/01/2023 1:41 PM Question Answer Comments Plan of Care: Code Status Discussion Completed Decision Maker: Patient History of Present Illness * Monica Chapa, ENFORCEMENT MANAGER - 06/17/2019 1:15 PM EDT [facility] VOICE PROSTHESIS Follow up Eval and Fit Today's Date 06/17/2019 Patient Name: Vj Myers Date of : 1970 Case Name: therapy Functional Diagnosis: SNOMED CT(R) 1. Aphonia LOSS OF VOICE Clinical Information: 16 Swiss Low Pressure (Richard Tee Classic Indwelling) Length 8mm Products provided: Laryngectomy Tube, Cleaning [place] and small floyd and foam stoma covers Treatments: Eval and fit of voice prosthesis due to increased difficulty with alaryngeal voice, increased tissue growth covering majority of tracheal flange of voice prosthesis Treatment Plan: Frequency of Visits: as indicated at least every 6-9 months Duration: 1 year from date of script/signed plan of care Interventions: Therapeutic/ Functional Activities Rehab Potential: excellent Goals: 1) demonstrate effective use of laryngeal tube, care and cleaning of voice prosthesis 2) produce alaryngeal voicing as a main source of communication with good listener understanding Patient Education provided: Educated to cleaning and care, avoiding use of ripped laryngeal tube (whch may have increased irritation to tracheal tissue causing increased granulomous-type growth Clinical Impression: Pt seen this date for voice prosthesis eval and fit. Presenting with complaintof inability to clean appropriately due to tissue growth covering approximately half of valve lumentracheal side. Pt had increased difficulty with alaryngeal speech as well. Upon assessment of stoma, pt noted to pull out laryngeal tube which was torn and ripped. Educated pt to concerns with wearing a laryngeal tube that has any tears or jagged edges due to risk for increased irritation to tracheal tissue. Pt voicing understanding, new laryngeal tube ( fenestrated) provided. Tissue was noted to be mildly erythemic with increased growth making identification of prosthesis difficulty (visualizing approximately half of valve lumen with entire right side of trachealflange engulfed in tissue. Removed prosthesis with significant difficulty attaching hemostat to flange resulting in need to affix carefully to valve lumen rim. Noted improvement in amount of yeast adhering to prosthesis (minmal amount as compared to pt history of large amounts of colonization within 2 weeks time frame). Placed measuring dilator into TEP after removal. Noted dark staining to prosthesis esophageal flange. Ptdenies smoking but states she is frequently in smoky environment. Encouraged use of stoma protectorand provided sample of Floyd stoma protector and nude colored foam protector. Pt measuring at 6-8mm with therapist electing to place 8mm in effort to reduce rub against tissue. Placed Classic indwelling voice prosthesis via gel cap with pt then taking multiple sips of water for deployment of gel cap. Was able to achieve good rotation of prosthesis on applicator. Applicator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 surgery again. She had seen Rabia Fink with Dr. Hutton's office and would like to follow-up there. She reports the pain is constant but worse with motion of the arm. She denies new neurologic symptoms or issues with bladder or bowel control. She also reports having pain in the left knee. It is present throughout the knee. She reports that it is worse with weightbearing. 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 She denies any right knee pain. She is following with Dr. Gonzales for her kidney function. She does have a history of alcohol use but reports that she has not had a drink in 2 weeks. She deniesnew neurologic symptoms or issues with bladder or bowel control. * The patient's past medical, social, and family history along with medications and allergies are available and were reviewed. 2 M0 FUV Reason for Referral Specialty Diagnoses / Procedures Referred By Asuncion hightower Referred To Contact Rehabilitation Diagnoses Hx of laryngectomy Aphonia System, Provider Not In Op Speech Therapy [address] [place] [address] Referral ID Status Reason Start Date Expiration Date V isits Requested Visits Authorized [id number] Authorized 01/11/2022 01/11/2023 1 1 Specialty Diagnoses / Procedures Referred By Asuncion hightoewr Referred To Contact Rehabilitation Diagnoses History of laryngectomy Aphonia Rolly Pantoja MD [address] [place] [address] Op Speech Therapy [address] [place] [address] Referral ID Status Reason Start Date Expiration Date V isits Requested Visits Authorized [id number] Authorized 02/07/2023 02/07/2024 1 1 Specialty Diagnoses / Procedures Referred By Contac t Referred To Contact Radiology Diagnoses Vomiting, unspecified Alcohol abuse, uncomplicated Procedures CT chest abdomen pelvis wo IV contrast Sonja Pryor Referral ID Status Reason Start Date Expiration Date Visits Requested Visits Authorized [id number] Authorized Perform Procedure 3 11/13/2024 1 1 Specialty Diagnoses / Procedures Referred By Contac t Referred To Contact Radiology Diagnoses Alcohol abuse, uncomplicated Procedures CT soft tissue neck wo IV contrast Bradjazlyn Sonja Referral ID Status Reason Start Date Expiration Date Visits Requested Visits Authorized [id number] Authorized Perform Procedure 3 11/14/2024 1 1 Chief Complaint and Reason for Visit Chief Complaint TRACH PUNCTURE, ESOP HAGEOSCOPY TRACH TRACH PUNCTURE, ESOPHAGEOSCOPY Chief Complaint TRACH TRACH PUNCTURE, ESOPHAGEOSCOPY COPD, RESPIRATORY FAILURE COPD, RESPIRATORY FAILURE COPD, RESPIRATORY FAILURE COPD, RESPIRATORY FAILURE Reason for Visit Morbid obesity COPD exacerbation Chief Complaint TRACH TRACH PUNCTURE, ESOPHAGEOSCOPY COPD, RESPIRATORY FAILURE COPD, RESPIRATORY FAILURE COPD, RESPIRATORY FAILURE COPD, RESPIRATORY FAILURE PNEUMONIA WITH HYPOXIA Reason for Visit Morbid obesity COPD exacerbation Hypoxia Pneumonia Chief Complaint TRACH TRACH PUNCTURE, ESOPHAGEOSCOPY COPD, RESPIRATORY FAILURE COPD, RESPIRATORY FAILURE COPD, RESPIRATORY FAILURE COPD, RESPIRATORY FAILURE PNEUMONIA WITH HYPOXIA PNEUMONIA WITH HYPOXIA PNEUMONIA WITH HYPOXIA PNEUMONIA WITH HYPOXIA PNEUMONIA WITH HYPOXIA PNEUMONIA WITH HYPOXIA PNEUMONIA WITH HYPOXIA PNEUMONIA WITH HYPOXIA PNEUMONIA WITH HYPOXIA PNEUMONIA WITH HYPOXIA PNEUMONIA WITH HYPOXIA PNEUMONIA WITH HYPOXIA Reason for Visit Morbid obesity COPD exacerbation Acute hypoxemic respiratory failure Dyspnea Hypoxia Larynx cancer Morbid obesity MRSA bacteremia Multiple tracheobronchial mucus plugs Pneumonia COPD exacerbation Chief Complaint DESIRE FOR DETOXIFIC ATION Reason for Visit Alcohol abuse Desire for detoxification Diarrhea Obesity Chief Complaint ALCOHOL USE WITHDRAW L Chief Complaint ALCOHOL USE WITHDRAW L ALCOHOL USE WITHDRAWL ALCOHOL USE WITHDRAWL Reason for Visit Alcohol abuse Alcohol dependence Desire for detoxification Larynx cancer Additional Source Comments INFORMATION SOURCE (unrecogn ized section and content) DATE CREATED AUTHOR 11/17/2018 [facility] DATE CREATED AUTHOR AUTHOR'S ORGANIZ ATION 07/29/2020 [facility] DATE CREATED AUTHOR AUTHOR'S ORGANIZ ATION 02/06/2022 [facility] DATE CREATED AUTHOR AUTHOR'S ORGANIZ ATION 10/06/2022 [facility] DATE CREATED AUTHOR AUTHOR'S ORGANIZ ATION 10/24/2022 [facility] DATE CREATED AUTHOR AUTHOR'S ORGANIZ ATION 02/23/2023 [facility] DATE CREATED AUTHOR AUTHOR'S ORGANIZ ATION 02/24/[address] [facility] DATE CREATED AUTHOR AUTHOR'S ORGANIZ ATION 03/22/2023 [facility] DATE CREATED AUTHOR AUTHOR'S ORGANIZ ATION 11/11/2023 [facility] DATE CREATED AUTHOR AUTHOR'S ORGANIZ ATION 12/01/2024 [facility] DATE CREATED AUTHOR AUTHOR'S ORGANIZ ATION 01/17/2025 [facility] DATE CREATED AUTHOR AUTHOR'S ORGANIZ ATION 06/26/2025 [facility] DATE CREATED AUTHOR AUTHOR'S ORGANIZ ATION 09/16/2025 [facility] DATE CREATED AUTHOR AUTHOR'S ORGANIZ ATION 09/26/2025 [facility] Reason for Visit (unrecogniz ed section and content) Reason Comments Speech Therapy Specialty Diagnoses / Procedures Referred By Contac t Referred To Contact Rehabilitation Diagnoses Hx of laryngectomy [facility], Provider Not In Op Speech Therapy [address] [place] [address] Referral ID Status Reason Start Date Expiration Date V isits Requested Visits Authorized [id number] Authorized 01/11/2022 01/11/2023 1 199 Status Reason Specialty Diagnoses / Procedures Referred By Contact Referred To Contact Authorized Speech Pathology / Rehabilitation Diagnoses Tiffanyonia Rolly Pantoja MD [address] [facility] [place] [address] Op Speech Therapy [address] [place] [address] Status Reason Specialty Diagnoses / Procedures Referred By Contact Referred To Contact Authorized Speech Pathology / Rehabilitation Diagnoses Tiffanyonia Rolly Pantoja MD [address] [place] [address] Op Speech Therapy [address] [place] [address] Status Reason Specialty Diagnoses / Procedures Referred By Contact Referred To Contact Authorized Rehabilitation Diagnoses History of laryngectomy Iqra Rose, EMBALMER APPRENTICE [address] [place] [address] Op Speech Therapy [address] [place] [address] Status Reason Specialty Diagnoses / Procedures Referred By Contact Referred To Contact Authorized Rehabilitation Diagnoses History of laryngectomy Iqra Rose, EMBALMER APPRENTICE [address] [place] [address] Op Speech Therapy [address] [place] [address] Reason Comments New Patient Evaluation Specialty Diagnoses / Procedures Referred By Contac t Referred To Contact Rehabilitation Diagnoses Hx of laryngectomy Aphonia Rolly Pantoja MD [address] [place] [address] Op Speech Therapy [address] [phone] Reason Comments Respiratory Distress Pt brought in by EM S for respiratory distress x today Specialty Diagnoses / Procedures Referred By Contac t Referred To Contact Diagnoses Respiratory distress Pneumonia of both lower lobes due to infectious organism Procedures Inpatient Admission Jose Leyva MD [address] [place] [address] [facility] [address] [place] [phone] Referral ID Status Reason Start Date Expiration Date Visits Re quested Visits Authorized [id number] 1 1 Specialty Diagnoses / Procedures Referred By Contac t Referred To Contact Radiology Diagnoses Vomiting, unspecified Alcohol abuse, uncomplicated Procedures CT chest abdomen pelvis wo IV contrast Sonja Pryor Referral ID Status Reason Start Date Expiration Date Visits Requested Visits Authorized [id number] Authorized Perform Procedure 3 11/13/2024 1 1 Specialty Diagnoses / Procedures Referred By Asuncion hightower Referred To Contact Radiology Diagnoses Alcohol abuse, uncomplicated Procedures CT soft tissue neck wo IV contrast Sonja Pryor Referral ID Status Reason Start Date Expiration Date Visits Requested Visits Authorized [id number] Authorized Perform Procedure 3 11/14/2024 1 1 Reason Comments New PT PT is here today to establish care as a new PT. Recently was discharged from [facility]. Reports the trach is new about a month. Spent a couple weeks in ICU. Was at in [place]. Would also like to talk about all her meds she takes. Reason Comments Fall Fell twice on Monday and is having increased left hip/knee/low back pain. Did hit head. No blood thinners. Reason Comments ER Follow-up Reason Comments Back Pain FUV pt requested. To day reports she is having lower back/Tail bone pain that radiates into her bilat legs , she fell getting out of the shower rates her pain score 8/10,constant stabbing. Specialty Diagnoses / Procedures Referred By Asuncion hightower Referred To Contact Pain Medicine Diagnoses Compression fracture of L5 vertebra with routine healing, subsequent encounter Acute midline low back pain with left-sided sciatica Pattie Sun, BUCKLER AND LACER-EMBALMER APPRENTICE [address] [facility] [place] [address] [phone] Referral ID Status Reason Start Date Expiration Date Visits Requested Visits Authorized [id number] Authorized Specialty Services Required 02/06/2024 02/05/2025 1 1 Reason Comments Follow-up Pt is here for a [address] [facility] F[facility]. Reports she also broke her back about 3 weeks ago. Needs Colonoscopy due and Mammo is due too. AWV needs scheduled as well. Reason Comments Hand Pain Pt states she had an epidural for a fracture in her back Monday, since then she is having right wrist/hand numbness and tingling with difficulty moving it. Reason Comments Fall Brought to ED per [facility] squad after a fall at home. Pt reports generalized weakness and tremors to R arm since an injection in her spine recently. ER Physician at states that he saw her for same recently and had set up an appointment with neuro for her. Pt reports that she did not go to that appointment. She denies any injuries from the fall this am. She denies hitting her head or LOC. Also denies taking any blood thinners. EKG done at Reason Comments Weakness, Gen Patient brought in b [facility] from home for tremor and weakness, patient states she has been shaky all day and weak which has caused her to fall three times today. She also states I feel like this whenever I take my pregabalin. Son also reports patient is a daily drinker and has not drank for 3 days. Patient has an abrasion to left knee and complains of bilateral lower back pain. Reason Comments Seizures Pt bib ems after wit nessed possible seizure like activity, while in car at gas station. Pt has no prior history of seizures, is alert and oriented now Specialty Diagnoses / Procedures Referred By Asuncion t Referred To Contact Diagnoses Cystitis Unresponsive episode Elevated troponin I level Procedures IP Admission Jose Leyva MD [address] [place] [address] Phone: tel: fax: [facility] [address] [place] [address] Phone: tel: Referral ID Status Reason Start Date Expiration Date Visits Re quested Visits Authorized [id number] 1 1 Reason Comments Shortness of Breath Complains of SOB. Pt has chronic trach. Pt states that a friend performed CPR last week bc she was unresponsive and her lips were blue. She was admitted her and discharged Monday. Also complains of OLIVO Reason Comments Muscle Pain Pt arrived to ED via EMS with c/o stiffness and pain in all 4 extremities. Per the pt, she has had a couple of falls at home over the last couple of days and has had pain and stiffness since. Pt states she blacked out with both falls. Pt A&O x4. Pt has a red catheter that she removes and replaces in her stoma. 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 Specialty Diagnoses / Procedures Referred By Contkenji t Referred To Contact Diagnoses Hypokalemia Lactic acidosis Sepsis, due to unspecified organism, unspecified whether acute organ dysfunction present (Multi) Procedures Sylvia James MD [address] [place] [address] Phone: tel: fax: [facility] [address] [place] [phone] Phone: tel: Referral ID Status Reason Start Date Expiration Date Visits Re quested Visits Authorized [id number] 1 1 Reason Comments Illness Pt to ER by EMS from [facility] with concern for hypoxia today. Was found in the mid 80's SpO2 by nurse at ECF. Normally wears 2 lpm O2 via NC. O2 was increased without resolution of hypoxia. Pt had trach removed and has stoma in place. EMS placed NRB at 10 lpm over stoma which improved hypoxia. Pt writes on note pad that we are not to suction her stoma. Possible concern for aspiration PNA. Is continuous tube feed per ECF which was stopped earlier today. Specialty Diagnoses / Procedures Referred By Asuncion t Referred To Contact Diagnoses Acute respiratory failure with hypoxia Acute on chronic hypoxic respiratory failure Procedures . Talib Maza DO [address] [place] [address] Phone: tel: fax: [facility] [address] [place] [phone] Phone: tel: Referral ID Status Reason Start Date Expiration Date Visits Re quested Visits Authorized [id number] 1 1 Reason Comments Follow-up Care Teams (unrecognized sec tion and content) Chassis Engineer Relationship Specialty Start Date End Date Jimmy Lopez MD [address] [place], [place] [phone] PCP - General Hematology/Oncology 09/26/19 Rolly Pantoja MD [address] [place] [address] Otolaryngology (ENT) 09/26/19 Chassis Engineer Relationship Specialty Start Date End Date [place] [address] Referring Pain Management 01/05/22 Chassis Engineer Relationship Specialty Start Date End Date No, Physician [facility] PCP - General 02/07/22 Chassis Engineer Relationship Specialty Start Date End Date No, Physician [facility] PCP - General 02/07/22 Chassis Engineer Relationship Specialty Start Date End Date Iqra Rose CNP [address] [facility] [place] [address] PCP - General Nurse Practitioner 09/16/22 Chassis Engineer Relationship Specialty Start Date End Date Iqra Rose CNP [address] [facility] [place] [address] PCP - General Nurse Practitioner 09/16/22 Team Status: Active Member Role Status Dates [facility] Family Provider Active Iqra Rose [employer]DLE SCHOOL TUTOR, MIDDLE SCHOOL TUTOR-C Primary Care Provider Active Team Status: Active Member Role Status Dates Iqra Rose MIDDLE SCHOOL TUTOR, MIDDLE SCHOOL TUTOR-C Primary Care Provider Active Dr. Sylvia Church MD Emergency Provider Active Dr. Robe Greenwood MD Admit Provider, Attending Pro vider Active Team Status: Inactive Member Role Status Dates Iqra Rose MIDDLE SCHOOL TUTOR, MIDDLE SCHOOL TUTOR-C Primary Care Provider Active Dr. Sylvia Church MD Emergency Provider Active Dr. Robe Greenwood MD Admit Provider, Other Provide r Active Dr. Bartolo Bernal DO Attending Provider Active Chassis Engineer Relationship Specialty Start Date End Date Iqra Rose APRN-YURIY [address] [facility] [place] [address] PCP - General 11/20/18 Chassis Engineer Relationship Specialty Start Date End Date Iqra Rose APRN-YURIY [address] [facility] [place] [address] PCP - General 11/20/18 Chassis Engineer Relationship Specialty Start Date End Date Iqra Rose APRN-YURIY [address] [place] [facility] [place] [address] PCP - General 11/20/18 Chassis Engineer Relationship Specialty Start Date End Date Iqra Rose, BUCKLER AND LACER-EMBALMER APPRENTICE [address] [id number] PCP - General 11/20/18 Chassis Engineer Relationship Specialty Start Date End Date Blas Zelaya MD MPH [address] [facility] [place] [address] [place] [address] PCP - General Family Medicine 11/28/23 Chassis Engineer Relationship Specialty Start Date End Date Blas Zelaya MD MPH [address] [facility] [place] [address] [place] [phone] PCP - General Family Medicine 11/28/23 Chassis Engineer Relationship Specialty Start Date End Date Blas Zelaya MD MPH [address] [facility] [place] [address] [place] [address] PCP - General Family Medicine 11/28/23 Chassis Engineer Relationship Specialty Start Date End Date Blas Zelaya MD MPH [address] [facility] [place] [address] [place] [address] PCP - General Family Medicine 11/28/23 Team Status: Active Member Role Status Dates Iqra Rose MIDDLE SCHOOL TUTOR, MIDDLE SCHOOL TUTOR-C Primary Care Provider Active Dr. David Whittaker , DO Emergency Provider Active Dr. Rodrigo Newsome MD Admit Provider, Attending Provi keon Active Team Status: Active Member Role Status Dates Iqra Rose MIDDLE SCHOOL TUTOR, MIDDLE SCHOOL TUTOR-C Primary Care Provider Active Dr. David Whittaker , DO Emergency Provider Active Dr. Rodrigo Newsome MD Admit Provider, A ttending Provider, Other Provider Active Team Status: Active Member Role Status Dates Iqra Rose MIDDLE SCHOOL TUTOR, MIDDLE SCHOOL TUTOR-C Primary Care Provider Active Dr. David Whittaker , DO Emergency Provider Active Dr. Rodrigo Newsome MD Admit Provider, Other Provider Active Dr. Dipak Vargas MD Attending Provider, Other Provid er Active Team Status: Inactive Member Role Status Dates Iqra Rose MIDDLE SCHOOL TUTOR, MIDDLE SCHOOL TUTOR-C Primary Care Provider Active Dr. David Whittaker , DO Emergency Provider Active Dr. Rodrigo Newsome MD Admit Provider, Other Provider Active Dr. Dipak Vargas MD Attending Provider Active Chassis Engineer Relationship Specialty Start Date End Date Blas Zelaya MD MPH [address] [facility] [place] [address] [place] [address] PCP - General Family Medicine 11/28/23 Flores Copeland mica splitterThermograph Operator 03/25/24 03/26/24 Chassis Engineer Relationship Specialty Start Date End Date Blas Zelaya MD MPH [address] [facility] [place] [address] [place] [phone] PCP - General Family Medicine 11/28/23 Brooklyn Narvaez RN Care Thermograph Operator 03/26/24 Chassis Engineer Relationship Specialty Start Date End Date Blas Zelaya MD MPH [address] [facility] [place] [address] [place] [address] PCP - General Family Medicine 11/28/23 Brooklyn Narvaez mica splitterThermograph Operator 03/26/24 Chassis Engineer Relationship Specialty Start Date End Date Blas Zelaya MD MPH [address] [facility] [place] [address] [place] [address] PCP - General Family Medicine 11/28/23 Brooklyn Narvaez RN Care Thermograph Operator 03/26/24 Chassis Engineer Relationship Specialty Start Date End Date Blas Zelaya MD MPH [address] [facility] [place] [address] [place] [address] PCP - General Family Medicine 11/28/23 Brooklyn Narvaez, mica splitterThermograph Operator 03/26/24 Chassis Engineer Relationship Specialty Start Date End Date Blas Zelaya MD MPH [address] [facility] [place] [address] [place] [address] PCP - General Family Medicine 11/28/23 Brooklyn Narvaez, mica splitterThermograph Operator 03/26/24 Chassis Engineer Relationship Specialty Start Date End Date Blas Zelaya MD MPH [address] [facility] [place] [address] [place] [address] PCP - General Family Medicine 11/28/23 Blas Zelaya MD MPH [address] [facility] [place] [address] [place] [address] PCP - MSSP ACO Attributed Provider 11/20/23 Chassis Engineer Relationship Specialty Start Date End Date Blas Zelaya MD MPH [address] [facility] [place] [address] [place] [address] PCP - MSSP ACO Attributed Provider 11/20/23 Stevenson Adair, BUCKLER AND LACER-EMBALMER APPRENTICE [address] [facility] [place] [address] [place] [address] PCP - General Family Medicine 01/07/25 Chassis Engineer Relationship Specialty Start Date End Date Blas Zelaya MD MPH [address] [facility] [place] [address] [place] [address] PCP - MSSP ACO Attributed Provider 11/20/23 Stevenson Adair APRN-EMBALMER APPRENTICE [address] [facility] [place] [address] [place] [address] PCP - General Family Medicine 01/07/25 Chassis Engineer Relationship Specialty Start Date End Date Blas Zelaya MD MPH [address] [facility] [place] [address] [place] [address] PCP - MSSP ACO Attributed Provider 11/20/23 Stevenson Adair, BUCKLER AND LACER-EMBALMER APPRENTICE [address] [facility] [place] [address] [place] [address] PCP - General Family Medicine 01/07/25 Chassis Engineer Relationship Specialty Start Date End Date Blas Zelaya MD MPH [address] [facility] [place] [address] [place] [address] PCP - MSSP ACO Attributed Provider 11/20/23 Stevenson Adair, BUCKLER AND LACER-EMBALMER APPRENTICE [address] [facility] [place] [address] [place] [address] PCP - General Family Medicine 01/07/25 Chassis Engineer Relationship Specialty Start Date End Date Blas Zelaya MD MPH [address] [facility] [place] [address] [place] [address] PCP - MSSP ACO Attributed Provider 11/20/23 Stevenson Adair, BUCKLER AND LACER-EMBALMER APPRENTICE [address] [facility] [place] [address] [place] [address] PCP - General Family Medicine 01/07/25 Chassis Engineer Relationship Specialty Start Date End Date Blas Zelaya MD MPH [address] [facility] [place] [address] [place] [address] PCP - MSSP ACO Attributed Provider 11/20/23 Stevenson Adair, BUCKLER AND LACER-EMBALMER APPRENTICE [address] [facility] [place] [address] [place] [address] PCP - General Family Medicine 01/07/25 Chassis Engineer Relationship Specialty Start Date End Date Blas Zelaya MD MPH [address] [facility] [place] [address] [place] [address] PCP - MSSP ACO Attributed Provider 11/20/23 Stevenson Adair, BUCKLER AND LACER-EMBALMER APPRENTICE [address] [facility] [place] [address] [place] [address] PCP - General Family Medicine 01/07/25 Ghassan Daugherty [facility] [employer] TeacherThermograph Operator 06/25/25 06/25/25 Chassis Engineer Relationship Specialty Start Date End Date Blas Zelaya MD MPH [address] [facility] [place] [address] [place] [address] PCP - MSSP ACO Attributed Provider 11/20/23 Stevenson Adair, BUCKLER AND LACER-EMBALMER APPRENTICE [address] [facility] [place] [address] [place] [address] PCP - General Family Medicine 01/07/25 Chassis Engineer Relationship Specialty Start Date End Date Blas Zelaya MD MPH [address] [facility] [place] [address] [place] [address] PCP - MSSP ACO Attributed Provider 11/20/23 Stevenson Adair APRN-EMBALMER APPRENTICE [address] [facility] [place] [address] [place] [address] PCP - General Family Medicine 01/07/25 Chassis Engineer Relationship Specialty Start Date End Date Blas Zelaya MD MPH [address] [facility] [place] [address] [place] [address] PCP - MSSP ACO Attributed Provider 11/20/23 Stevenson Adair, BUCKLER AND LACER-EMBALMER APPRENTICE [address] [facility] [place] [address] [place] [address] PCP - General Family Medicine 01/07/25 Chassis Engineer Relationship Specialty Start Date End Date Blas Zelaya MD MPH [address] [facility] [place] [address] [place] [address] PCP - MSSP ACO Attributed Provider 11/20/23 Stevenson Adair, BUCKLER AND LACER-EMBALMER APPRENTICE [address] [facility] [place] [address] [place] [address] PCP - General Family Medicine 01/07/25 Source Comments (unrecognize d section and content) In the event this informatio n is protected by the Federal Confidentiality of Alcohol and Drug Abuse Patient Records regulations: The Federal rules restrict any use of the information to criminally investigate or prosecute any alcohol or drug abuse patient.[facility] Goals (unrecognized section and content) Goals may be documented in a n alternate sectionGoals may be documented in an alternate sectionGoals may be documented in an alternate sectionGoals may be documented in an alternate sectionGoals may be documented in an alternate section <item> Privacy Markings (unrecogniz ed section and content) Section Author: Naya Sheridan PROHIBITION ON REDISCLOSURE OF CONFIDENTIAL INFORMATION This notice accompanies a disclosure of information concerning a client made to you with the consent of such client. Scheduled Active and Recently Administ ered Medications (unrecognized section and content) Medication Order 10/30/2023 10/31/2023 11/01/2023 acetylcysteine (Mucomyst) 200 mg/mL (20 %) nebulizer solution 600 mg (CANCELED) 600 mg (3 mL), nebulization, 4 times daily RT, First dose on Mon10/25/23 at 1145 0615 (New Bag - Provider: Barbra Mueller RRT)1133 (New Bag - Provider: Barbra Mueller RRT)1829 (New Bag - Provider: Matilde Frias RRT)2153 (New Bag - Provider: Matilde Frias RRT) 0559 (New Bag - Provider: Marija Thompson, SHANAE)1118 (New Bag - Provider: Marija Thompson RRT)1205 (Due: Stopped - Provider: Anne Gonzales DO) amLODIPine (Norvasc) tablet 10 mg 10 mg, oral, Daily, First dose (after last reorder) on Suki 10/26/23 at 1215 0932 (Given - Provider: Nitin Chery RN) 910 (Given - Provider: Nitin Chery RN) 08 (Given - Provider: Ilana Quintanilla, DANNI) atorvastatin (Lipitor) tablet 20 mg 20 mg, oral, Nightly, First dose on 10/23/23 at 2100 210 (Given - Provider: Lis Kulkarni RN) 2002 (Given - Provider: Lis Kulkarni RN) 2099 (Due) carvedilol (Coreg) tablet 6.25 mg 6.25 mg, oral, 2 times daily, First dose (after last reorder) on Mon10/26/23 at 1215 0932 (Given - Provider: Nitin Chery RN)2100 (Given - Provider: Lis Kulkarni RN) 910 (Given - Provider: Nitin Chery RN)2002 (Given - Provider: Lis Kulkarni RN) 08 (Given - Provider: lIana Quintanilla, DANNI)2099 (Due) doxycycline (Vibra-Tabs) tablet 100 mg 100 mg, oral, Every 12 hours scheduled, First dose on 10/28/23 at 0900, Administer with meals to decrease GI upset; take with at least 8 ounces (large glass) of water, do not lie down for 30 minutes after., Suspected Indication (Select all that apply): Pneumonia, Type of Therapy: Definitive, Based on Culture 932 (Given - Provider: Nitin Chery RN)2102 (Given - Provider: Lis Kulkarni RN) 910 (Given - Provider: Nitin Chery RN)2003 (Given - Provider: Lis Kulkarni RN) 0832 (Given - Provider: Ilana Quintanilla, DANNI)2099 (Due) folic acid (Folvite) tablet 1 mg 1 mg, oral, Daily, First dose on Mon10/24/23 at 1515 0932 (Given - Provider: Nitin Chery RN) 09 (Given - Provider: Nitin Chery RN) 0832 (Given - Provider: Ilana Quintanilla, RN) ipratropium-albuteroL (Duo-Neb) 0.5-2.5 mg/3 mL nebulizer solution 3 mL 3 mL, nebulization, 4 times daily, First dose (after last modification) on Mon10/24/23 at 0630 0616 (Given - Provider: Barbra Mueller RRT)1134 (Given - Provider: Barbra Mueller WIND POWER PROJECT MANAGER)1829 (Given - Provider: Matilde Frias RRT)2152 (Given - Provider: Matilde Frias RRT) 0559 (Given - Provider: Marija Thompson RRT)1118 (Given - Provider: Marija Thompson RRT)1848 (Given - Provider: Guerrero Hamlin RRT)2249 (Given - Provider: Guerrero Hamlin RRT) 0546 (Given - Provider: Dinesh Don RRT)1124 (Given - Provider: Dinesh Don RRT)1800 (Due)2200 (Due) levothyroxine (Synthroid, Levoxyl) tablet 137 mcg 137 mcg, oral, Daily, First dose on Mon10/24/23 at 0600 0942 (Given - Provider: Nitin Chery RN) 0610 (Given - Provider: Lis Kulkarni RN) 0610 (Given - Provider: Lis Kulkarni RN) lidocaine (Xylocaine) 2 % mouth solution 15 mL 15 mL, Mouth/Throat, Once, On Mon10/30/23 at 0630, For 1 dose 0630 (Due) liothyronine (Cytomel) tablet 5 mcg 5 mcg, oral, Daily, First dose on Mon10/23/23 at 0900 0932 (Given - Provider: Nitin Chery RN) 0911 (Given - Provider: Nitin Chery RN) 0832 (Given - Provider: Ilana Quintanilla, DANNI) magnesium oxide (Mag-Ox) tablet 400 mg 400 mg, oral, Daily, First dose on Mon10/24/23 at 1015 0932 (Given - Provider: Nitin Chery RN) 0911 (Given - Provider: Nitin Chery RN) 0832 (Given - Provider: Ilana Quintanilla, DANNI) pantoprazole (ProtoNix) EC tablet 40 mg 40 mg, oral, Daily before breakfast, First dose on Mon10/23/23 at 0700, Do not crush, chew, or split. 0932 (Given - Provider: Nitin Chery RN) 0610 (Given - Provider: Lis Kulkarni, DANNI) 0610 (Given - Provider: Lis Kulkarni, DANNI) predniSONE (Deltasone) tablet 40 mg 40 mg, oral, Daily, First dose on Mon10/23/23 at 0900 0932 (Given - Provider: Nitin Chery RN) 0911 (Given - Provider: Nitin Chery RN) 0832 (Given - Provider: Ilana Quintanilla, DANNI) thiamine (Vitamin B1) injection 100 mg 100 mg, intravenous, Daily, First dose on Mon10/24/23 at 1515 0931 (Given - Provider: Nitin Chery RN) 0910 (Given - Provider: Nitin Chery RN) 0900 (Not Given - Provider: Ilana Quintanilla RN - Reason: Other - Comment: no IV) PRN Medication Order 10/30/2023 10/31/2023 11/01/2023 acetaminophen (Tylenol) oral liquid 650 mg(Linked Group 1) 650 mg, oral, Every 4 hours PRN, pain mild (1-3), first line, Starting on Mon10/23/23 at 1828, Give oral liquid per feeding tube if present. acetaminophen (Tylenol) suppository 650 mg(Linked Group 1) 650 mg, rectal, Every 4 hours PRN, pain mild (1-3), first line, Starting on Mon10/23/23 at 1828, Give rectally if unable to administer by mouth or feeding tube., If ordered PRN for pain, nurse is permitted to administer this medication for higher pain scores based on patient preference? Yes acetaminophen (Tylenol) tablet 650 mg(Linked Group 1) 650 mg, oral, Every 4 hours PRN, pain mild (1-3), first line, Starting on Mon10/23/23 at 1828, If ordered PRN for pain, nurse is permitted to administer this medication for higher pain scores based on patient preference? Yes alum-mag hydroxide-simeth (Mylanta) 200-200-20 mg/5 mL oral suspension 10 mL 10 mL, oral, 4 times daily PRN, indigestion, heartburn, Starting on Mon10/30/23 at 0907 0933 (Given - Provider: Nitin Chery RN) etomidate (Amidate) injection (COMPLETED) intravenous, Code/trauma/sedation continuous med, Starting on Mon10/30/23 at 0731 0731 (New Bag - Provider: Nitin Chery RN)0735 (New Bag - Provider: Nitin Chery RN) fentaNYL PF (Sublimaze) injection (COMPLETED) intravenous, Code/trauma/sedation medication, Starting on Mon10/30/23 at 0732 0732 (Given - Provider: Nitin Chery RN) LORazepam (Ativan) tablet 1 mg 1 mg, oral, Every 4 hours PRN, anxiety, Starting on Mon10/28/23 at 0734 0944 (Given - Provider: Nitin Chery RN)2103 (Given - Provider: Lis Kulkarni RN) 0159 (Given - Provider: Lis Kulkarni RN)0935 (Given - Provider: Nitin Chery RN)1957 (Given - Provider: Lis Kulkarni RN) 0056 (Given - Provider: Lis Kulkarni, DANNI)0610 (Given - Provider: Lis Kulkarni RN)1513 (Given - Provider: Ilana Quintanilla RN) magnesium hydroxide (Milk of Magnesia) 2,400 mg/10 mL suspension 10 mL 10 mL, oral, Daily PRN, constipation, first line, Starting on Mon10/23/23 at 1828, Contact provider if no bowel movement in past 48 hours. Concentrated product. Follow administration with 8 ounces of water. ondansetron (Zofran) injection 4 mg(Linked Group 2) 4 mg, intravenous, Every 8 hours PRN, nausea/vomiting, first line, Starting on Mon10/23/23 at 1828, 1st Line. Give IV if patient is unable to take orally. If inadequate response within 60 minutes, proceed to next-line agent for same PRN reason or contact provider if no further options ordered. When administering via IV Push, administer over 3-5 minutes. ondansetron ODT (Zofran-ODT) disintegrating tablet 4 mg(Linked Group 2) 4 mg, oral, Every 8 hours PRN, nausea/vomiting, first line, Starting on Mon10/23/23 at 1828, 1st Line. Patient should allow tablet to dissolve on tongue. Do not remove from blister pack until just before administering. If inadequate response within 60 minutes, proceed to next-line agent for same PRN reason or contact provider if no further options ordered. oxygen (O2) therapy inhalation, Continuous PRN - O2/gases, other, Starting on Mon10/23/23 at 1208, Device: Ventilator, FIO2: 45, Keep O2 Sat Above: 90% oxygen (O2) therapy inhalation, Continuous PRN - O2/gases, other, Starting on Mon10/24/23 at 1000, Cool mist aerosol, Device: Trach mask, FIO2: 40%, Keep O2 Sat Above: 90% 0616 (Rate/Dose Verify - Provider: Barbra Mueller RRT)0809 (Rate/Dose Change - Provider: Barbra Mueller RRT)1134 (Rate/Dose Verify - Provider: Barbra Mueller RRT)1837 (Start - Provider: Matilde Frias WIND POWER PROJECT MANAGER) 0948 (Rate/Dose Verify - Provider: Marija Thompson WIND POWER PROJECT MANAGER)1121 (Rate/Dose Verify - Provider: Marija Thompson RRT)1617 (Rate/Dose Verify - Provider: Marija Thompson RRT)1800 (Start - Provider: Guerrero Hamlin RRT)2250 (Start - Provider: Guerrero Hamlin RRT) 0549 (Rate/Dose Verify - Provider: Diensh Don RRT)1126 (Rate/Dose Verify - Provider: Dinesh Don RRT) Linked Groups Order Group 1: acetaminophen (Tylenol) tablet 650 mgJump to med 650 mg, oral, Every 4 hours PRN, pain mild (1-3), first line, Starting on Mon10/23/23 at 1828
If ordered PRN for pain, nurse is permitted to administer this medication for higher pain scores based on patient preference? Yes Or acetaminophen (Tylenol) oral liquid 650 mgJump to med 650 mg, oral, Every 4 hours PRN, pain mild (1-3), first line, Starting on Mon10/23/23 at 1828
Give oral liquid per feeding tube if present.
Or acetaminophen (Tylenol) suppository 650 mgJump to med 650 mg, rectal, Every 4 hours PRN, pain mild (1-3), first line, Starting on Mon10/23/23 at 1828
Give rectally if unable to administer by mouth or feeding tube.
If ordered PRN for pain, nurse is permitted to administer this medication for higher pain scores based on patient preference? Yes Group 2: ondansetron ODT (Zofran-ODT) disintegrating tablet 4 mgJump to med 4 mg, oral, Every 8 hours PRN, nausea/vomiting, first line, Starting on Mon10/23/23 at 1828
1st Line. Patient should allow tablet to dissolve on tongue. Do not remove from blister pack until just before administering. If inadequate response within 60 minutes, proceed to next-line agent for same PRN reason or contact provider if no further options ordered.
Or ondansetron (Zofran) injection 4 mgJump to med 4 mg, intravenous, Every 8 hours PRN, nausea/vomiting, first line, Starting on Mon10/23/23 at 1828
1st Line. Give IV if patient is unable to take orally. If inadequate response within 60 minutes, proceed to next-line agent for same PRN reason or contact provider if no further options ordered. When administering via IV Push, administer over 3-5 minutes.
Scheduled Medication Order 01/31/2024 02/01/2024 02/02/2024 fentaNYL PF (Sublimaze) injection 50 mcg (COMPLETED) 50 mcg, intramuscular, Once, On Mon02/02/24 at 1220, For 1 dose 1249 (Given - Provid er: Alisia Alexander RN) ondansetron ODT (Zofran-ODT) disintegrating tablet 4 mg (COMPLETED) 4 mg, oral, Once, On Mon02/02/24 at 1220, For 1 dose 1248 (Given - Provid er: Alisia Alexander RN) Scheduled Medication Order 04/17/2024 04/18/2024 04/19/2024 cephalexin (Keflex) capsule 500 mg (COMPLETED) 500 mg, oral, Once, On Mon04/19/24 at 1135, For 1 dose, Suspected Indication (Select all that apply): Urinary Tract Infection, Type of Therapy: Empiric, Type of Urinary Tract Infection: Uncomplicated 1149 (Given - Provid er: Anum Gordon RN) sodium chloride 0.9 % bolus 1,000 mL (COMPLETED) 1,000 mL, intravenous, at 999 mL/hr, Administer over 1 Hours, Once, On Mon04/19/24 at 1055, For 1 dose 1055 (New Bag - Prov ider: Anum Gordon RN)1155 (Stopped - Provider: Anum Gordon RN) Continuous Medication Order 04/17/2024 04/18/2024 04/19/2024 sodium chloride 0.9% infusion 150 mL/hr, intravenous, Continuous, Starting on Mon04/19/24 at 0835 0940 (New Bag - Prov ider: Nydia Acosta RN)1000 (Stopped - Provider: Anum Gordon RN) Scheduled Medication Order 05/27/2024 05/28/2024 05/29/2024 ketorolac (Toradol) injection 30 mg (COMPLETED) 30 mg, intravenous, Once, On Mon05/29/24 at 1515, For 1 dose 1605 (Given - Provid er: Zahida Lincoln RN) LORazepam (Ativan) injection 0.5 mg (COMPLETED) 0.5 mg, intravenous, Administer over 5 Minutes, Once, On Mon05/29/24 at 1600, For 1 dose 1621 (Given - Provid er: Zahida Lincoln RN) sodium chloride 0.9 % bolus 1,000 mL (COMPLETED) 1,000 mL, intravenous, at 999 mL/hr, Administer over 1 Hours, Once, On Mon05/29/24 at 1515, For 1 dose 1605 (New Bag - Prov ider: Zahida Lincoln RN)1705 (Stopped - Provider: Tess Hendrix RN) thiamine (Vitamin B1) injection 100 mg (COMPLETED) 100 mg, intramuscular, Once, On Mon05/29/24 at 1715, For 1 dose 1725 (Given - Provid er: Zahida Lincoln RN) Scheduled Medication Order 01/08/2025 01/09/2025 01/10/2025 amLODIPine (Norvasc) tablet 10 mg 10 mg, oral, Daily, First dose on Mon01/08/25 at 0900 1021 (Given - Provider: He Guillory, RN) 0846 (Given - Provider: Dipak Blackwell RN) 0835 (Given - Provider: Dipak Blackwell, DANNI) atorvastatin (Lipitor) tablet 20 mg 20 mg, oral, Daily, First dose on Mon01/08/25 at 0900 1021 (Given - Provider: He Guillory RN) 0846 (Given - Provider: Dipak Blackwell RN) 0836 (Given - Provider: Dipak Blackwell RN) carvedilol (Coreg) tablet 6.25 mg 6.25 mg, oral, 2 times daily, First dose on Mon01/07/25 at 2230 1021 (Given - Provider: He Guillory RN)2003 (Not Given - Provider: Zion Spencer RN - Reason: See Provider Order - Comment: Dr. Mcfarland told to hold) 0846 (Given - Provider: Dipak Blackwell RN)2004 (Given - Provider: Zion Spencer RN) 0835 (Given - Provider: Dipak Blackwell RN)2100 (Due) cefTRIAXone (Rocephin) 1 g in dextrose (iso) IV 50 mL (CANCELED) 1 g, intravenous, at 100 mL/hr, Administer over 30 Minutes, Every 24 hours, First dose on Mon01/08/25 at 2000, premix bag, Suspected Indication (Select all that apply): Pneumonia, Type of Therapy: Empiric, Indications: Pneumonia 2012 (New Bag - Provider: Zion Spencer RN)2045 (Stopped - Provider: Zion Spencer RN) 2004 (New Bag - Provider: Zion Spencer RN)2042 (Stopped - Provider: Zion Spencer RN) escitalopram (Lexapro) tablet 10 mg 10 mg, oral, Daily, First dose on Mon01/09/25 at 0900, Therapeutic Interchange for Celexa 20 mg daily 0846 (Given - Provider: Dipak Blackwell RN) 0836 (Given - Provider: Dipak Blackwell, DANNI) flu vaccine trivalent (PF) (Fluarix/Fluzone/Flula sadiq) 6 months or greater injection 0.5 mL, intramuscular, During hospitalization, Starting on Mon01/07/25 at 2117, For 1 dose folic acid (Folvite) tablet 1 mg 1 mg, oral, Daily, First dose on Mon01/08/25 at 0900 1021 (Given - Provider: He Guillory RN) 0846 (Given - Provider: Dipak Blackwell RN) 0836 (Given - Provider: Dipak Blackwell RN) ipratropium-albuteroL (Duo-Neb) 0.5-2.5 mg/3 mL nebulizer solution 3 mL 3 mL, nebulization, 4 times daily, First dose on Mon01/07/25 at 2230 0645 (Given - Provider: Xi Ocasio W[employer]OWER PROJECT MANAGER)1140 (Given - Provider: Xi Ocasio WIND POWER PROJECT MANAGER - Comment: due)1812 (Given - Provider: Susanne Tripathi WIND POWER PROJECT MANAGER)2108 (Given - Provider: Susanne Tripathi WIND POWER PROJECT MANAGER) 0615 (Given - Provider: Marija Thompson WIND POWER PROJECT MANAGER)1120 (Given - Provider: Marija Thompson WIND POWER PROJECT MANAGER)1819 (Given - Provider: Susanne Tripathi WIND POWER PROJECT MANAGER)2218 (Given - Provider: Susanne Tripathi RRT) 0704 (Given - Provider: Xi Ocasio WIND POWER PROJECT MANAGER)1146 (Given - Provider: Xi Ocasio RRT - Comment: due)1700 (Due)2100 (Due) ketorolac (Toradol) injection 15 mg (COMPLETED) 15 mg, intravenous, Once, On Mon01/09/25 at 1900, For 1 dose 1851 (Given - Provider: Dipak Blackwell RN) levothyroxine (Synthroid, Levoxyl) tablet 137 mcg 137 mcg, oral, Daily, First dose on Mon01/08/25 at 0900, Enteral feedings are held 1 hour pre and post dose. 1021 (Given - Provider: He Guillory RN) 0846 (Given - Provider: Dipak Blackwell RN) 0800 (Given - Provider: Dipak Blackwell RN - Comment: before breakfast) liothyronine (Cytomel) tablet 5 mcg 5 mcg, oral, Daily, First dose on Mon01/08/25 at 0900 1021 (Given - Provider: He Guillory RN) 0846 (Given - Provider: Dipak Blackwell RN) 0835 (Given - Provider: Dipak Blackwell RN) mupirocin (Bactroban) 2 % ointment Topical, 2 times daily, First dose on Mon01/10/25 at 1045, For 5 days, Apply to nares 1045 (Due)2100 (Due) nitrofurantoin (macrocrystal-monohydr ate) (Macrobid) capsule 100 mg 100 mg, oral, Every 12 hours scheduled, First dose on Mon01/10/25 at 2100, For 5 days, Suspected Indication (Select all that apply): Urinary Tract Infection, Type of Therapy: Definitive, Based on Culture, Type of Urinary Tract Infection: Uncomplicated, Indications: Urinary Tract Infection 2100 (Due) pantoprazole (ProtoNix) EC tablet 40 mg 40 mg, oral, Daily before breakfast, First dose on Mon01/08/25 at 0700, Do not crush, chew, or split. 0905 (Given - Provider: He Guillory RN) 0631 (Given - Provider: Zion Spencer, DANNI) 0749 (Given - Provider: Dipak Blackwell RN) pneumococcal conjugate 20-valent (PREVNAR 20) vaccine 0.5 mL, intramuscular, During hospitalization, Starting on Mon01/07/25 at 2122, For 1 dose potassium chloride CR (Klor-Con M20) ER tablet 40 mEq (COMPLETED) 40 mEq, oral, Once, On Mon01/08/25 at 0915, For 1 dose, Best given with food and plenty of water to minimize gastric irritation. Do not crush or chew. 1021 (Given - Provider: He Guillory RN) sertraline (Zoloft) tablet 50 mg (CANCELED) 50 mg, oral, Daily, First dose on Mon01/08/25 at 0900 1021 (Given - Provider: He Guillory RN) sodium chloride 0.9 % bolus 250 mL (COMPLETED) 250 mL, intravenous, at 250 mL/hr, Administer over 1 Hours, Once, On Mon01/08/25 at 2030, For 1 dose 2012 (New Bag - Provider: Zion Spencer RN)2104 (Rate/Dose Verify - Provider: Zion Spencer RN)2115 (Stopped - Provider: Zion Spencer RN) PRN Medication Order 01/08/2025 01/09/2025 01/10/2025 acetaminophen (Tylenol) oral liquid 650 mg(Linked Group 1) 650 mg, oral, Every 4 hours PRN, pain mild (1-3), first line, Starting on Mon01/07/25 at 2200, Give oral liquid per feeding tube if present. 0907 (Given - Provider: He Guillory RN) 1051 (See Alternative - Provider: Dipak Blackwell, RN) acetaminophen (Tylenol) suppository 650 mg(Linked Group 1) 650 mg, rectal, Every 4 hours PRN, pain mild (1-3), first line, Starting on Mon01/07/25 at 2200, Give rectally if unable to administer by mouth or feeding tube., If ordered PRN for pain, nurse is permitted to administer this medication for higher pain scores based on patient preference? Yes 0907 (See Alternative - Provider: He Guillory RN) 1051 (See Alternative - Provider: Dipak Blackwell, RN) acetaminophen (Tylenol) tablet 650 mg(Linked Group 1) 650 mg, oral, Every 4 hours PRN, pain mild (1-3), first line, Starting on Mon01/07/25 at 2200, If ordered PRN for pain, nurse is permitted to administer this medication for higher pain scores based on patient preference? Yes 0907 (See Alternative - Provider: He Guillory RN) 1051 (Given - Provider: Dipak Blackwell, RN) guaiFENesin (Mucinex) 12 hr tablet 600 mg 600 mg, oral, 2 times daily PRN, cough, Starting on Mon01/09/25 at 1157, Administer with plenty of fluids to ensure proper action. Do not crush, chew, or split. HYDROmorphone (Dilaudid) injection 0.2 mg 0.2 mg, intravenous, Every 4 hours PRN, pain moderate (4-6), first line, Starting on Mon01/08/25 at 1550 1624 (Given - Provider: He Guillory RN)2114 (Given - Provider: Zion Spencer RN) 0853 (Given - Provider: Dipak Blackwell, RN) HYDROmorphone (Dilaudid) injection 0.4 mg 0.4 mg, intravenous, Every 4 hours PRN, pain severe (7-10), first line, Starting on Mon01/08/25 at 1550 1308 (Given - Provider: Dipak Blackwell, RN)1652 (Given - Provider: Dipak Blackwell, RN)2139 (Given - Provider: Zoin Spencer, RN) 0354 (Given - Provider: Zion Spencer, RN)0748 (Given - Provider: Dipak Blackwell, RN)1324 (Given - Provider: Dipak Blackwell, RN) LORazepam (Ativan) injection 0.5 mg(Linked Group 2) 0.5 mg, intravenous, Every 2 hour PRN, CIWA score 6-7 or HR greater than 100, Starting on Mon01/07/25 at 2157, Maximum rate of 2 mg/min. 1138 (Given - Provider: He Guillory RN) LORazepam (Ativan) injection 1 mg(Linked Group 2) 1 mg, intravenous, Every 2 hour PRN, CIWA score 8-9, Starting on Mon01/07/25 at 2157, Maximum rate of 2 mg/min. 1138 (See Alternative - Provider: He Guillory, DANNI) LORazepam (Ativan) injection 2 mg(Linked Group 2) 2 mg, intravenous, Every 2 hour PRN, CIWA score greater than 9, Starting on Mon01/07/25 at 2157, Maximum rate of 2 mg/min. 1138 (See Alternative - Provider: He Guillory, DANNI) magnesium hydroxide (Milk of Magnesia) 400 mg/5 mL suspension 30 mL 30 mL, oral, Daily PRN, constipation, first line, Starting on Mon01/07/25 at 2200, Contact provider if no bowel movement in past 48 hours. Follow administration with 8 ounces of water. ondansetron (Zofran) injection 4 mg(Linked Group 3) 4 mg, intravenous, Every 8 hours PRN, nausea/vomiting, first line, Starting on Mon01/07/25 at 2200, 1st Line. Give IV if patient is unable to take orally. If inadequate response within 60 minutes, proceed to next-line agent for same PRN reason or contact provider if no further options ordered. When administering via IV Push, administer over 3-5 minutes. ondansetron ODT (Zofran-ODT) disintegrating tablet 4 mg(Linked Group 3) 4 mg, oral, Every 8 hours PRN, nausea/vomiting, first line, Starting on Mon01/07/25 at 2200, 1st Line. Patient should allow tablet to dissolve on tongue. Do not remove from blister pack until just before administering. If inadequate response within 60 minutes, proceed to next-line agent for same PRN reason or contact provider if no further options ordered. oxygen (O2) therapy inhalation, Continuous PRN - O2/gases, other, Starting on Mon01/07/25 at 1917, Device: OxyMask, Rate in liters per minute: 2 LPM, Keep O2 Sat Above: 90% 0000 (Rate Verify Medical [employer] - Provider: Tony Mejia WIND POWER PROJECT MANAGER)0135 (Rate [employer] - Provider: Tony Mejia WIND POWER PROJECT MANAGER)0310 (Rate [employer] - Provider: Tony Mejia WIND POWER PROJECT MANAGER)0645 (Rate Ver[employer] - Provider: Xi Ocasio WIND POWER PROJECT MANAGER)1140 (Start - Provider: Xi Ocasio WIND POWER PROJECT MANAGER)1812 (Rate [employer] - Provider: Susanne Tripathi WIND POWER PROJECT MANAGER) 0330 (Rate [employer] - Provider: Susanne Tripathi WIND POWER PROJECT MANAGER)0615 (Rate Ver[employer] Medical [employer] - Provider: Marija Thompson WIND POWER PROJECT MANAGER)1120 (Rate [employer] - Provider: Marija Thompson RRT)1820 (Rate Ver[employer] Medical [employer] - Provider: Susanne Tripathi WIND POWER PROJECT MANAGER)2219 (Rate Ver[employer] Medical [employer] - Provider: Susanne Tripathi WIND POWER PROJECT MANAGER) 0704 (Rate [employer] - Provider: Xi Ocasio WIND POWER PROJECT MANAGER)1146 (Rate Ver[employer] Medical [employer] - Provider: Xi Ocasio RRT) Linked Groups Order Group 1: acetaminophen (Tylenol) tablet 650 mgJump to med 650 mg, oral, Every 4 hours PRN, pain mild (1-3), first line, Starting on Mon01/07/25 at 2200, If ordered PRN for pain, nurse is permitted to administer this medication for higher pain scores based on patient preference? Yes Or acetaminophen (Tylenol) oral liquid 650 mgJump to med 650 mg, oral, Every 4 hours PRN, pain mild (1-3), first line, Starting on Mon01/07/25 at 2200, Give oral liquid per feeding tube if present. Or acetaminophen (Tylenol) suppository 650 mgJump to med 650 mg, rectal, Every 4 hours PRN, pain mild (1-3), first line, Starting on Mon01/07/25 at 2200, Give rectally if unable to administer by mouth or feeding tube., If ordered PRN for pain, nurse is permitted to administer this medication for higher pain scores based on patient preference? Yes Group 2: LORazepam (Ativan) injection 0.5 mgJump to med 0.5 mg, intravenous, Every 2 hour PRN, CIWA score 6-7 or HR greater than 100, Starting on Mon01/07/25 at 2157, Maximum rate of 2 mg/min. Or LORazepam (Ativan) injection 1 mgJump to med 1 mg, intravenous, Every 2 hour PRN, CIWA score 8-9, Starting on Mon01/07/25 at 2157, Maximum rate of 2 mg/min. Or LORazepam (Ativan) injection 2 mgJump to med 2 mg, intravenous, Every 2 hour PRN, CIWA score greater than 9, Starting on Mon01/07/25 at 2157, Maximum rate of 2 mg/min. Group 3: ondansetron ODT (Zofran-ODT) disintegrating tablet 4 mgJump to med 4 mg, oral, Every 8 hours PRN, nausea/vomiting, first line, Starting on Mon01/07/25 at 2200, 1st Line. Patient should allow tablet to dissolve on tongue. Do not remove from blister pack until just before administering. If inadequate response within 60 minutes, proceed to next-line agent for same PRN reason or contact provider if no further options ordered. Or ondansetron (Zofran) injection 4 mgJump to med 4 mg, intravenous, Every 8 hours PRN, nausea/vomiting, first line, Starting on Mon01/07/25 at 2200, 1st Line. Give IV if patient is unable to take orally. If inadequate response within 60 minutes, proceed to next-line agent for same PRN reason or contact provider if no further options ordered. When administering via IV Push, administer over 3-5 minutes. Scheduled Medication Order 01/10/2025 01/11/2025 01/12/2025 doxycycline (Vibra-Tabs) tablet 100 mg (COMPLETED) 100 mg, oral, Once, On 01/12/25 at 1955, For 1 dose, Administer with meals to decrease GI upset; take with at least 8 ounces (large glass) of water, do not lie down for 30 minutes after., Suspected Indication (Select all that apply): Other, Specify: copd exacerbation, Type of Therapy: Empiric, Indications: Other 2013 (Given - Provid er: Paula Carlton RN) hydrALAZINE (Apresoline) injection 10 mg (COMPLETED) 10 mg, intravenous, Once, On 01/12/25 at 1955, For 1 dose 2010 (Given - Provid er: Paula Carlton RN) ipratropium-albuteroL (Duo-Neb) 0.5-2.5 mg/3 mL nebulizer solution 3 mL (COMPLETED) 3 mL, nebulization, Once, On 01/12/25 at 5, For 1 dose 2018 (Given - Provid er: Tessy Holbrook, SHANAE) methylPREDNISolone sod succinate (SOLU-Medrol) injection 125 mg (COMPLETED) 125 mg, intravenous, Once, On 01/12/25 at 2009, For 1 dose 2012 (Given - Provid er: Paula Carlton RN) No Frequency Medication Order 01/10/2025 01/11/2025 01/12/2025 methylPREDNISolone sod succinate (SOLU-Medrol) injection 125 mg/2 mL - [employer]nic[employer] Override Pull Starting on 01/12/25 at 2005, For 1 dose, Created by cabinet override 2017 (Not Given - Pr ovider: Paula Carlton RN - Reason: Other - Comment: Pulled 2 d/t vial problem with first pull.) Scheduled Medication Order 06/10/2025 06/11/2025 06/12/2025 amLODIPine (Norvasc) tablet 5 mg 5 mg, oral, Daily, First dose on Mon06/06/25 at 0900, On hold since Mon06/05/2025 at 2322 until manually unheld 0900 (Not Given - Provider: Kemi Luis - Reason: NPO) 0900 (Not Given - Provider: Kemi Luis - Reason: NPO) 0900 (Dose Auto Held) carvedilol (Coreg) tablet 6.25 mg 6.25 mg, oral, 2 times daily, First dose on Mon06/05/25 at 2345, On hold since Mon06/05/2025 at 2322 until manually unheld 0900 (Not Given - Provider: Kemi Luis - Reason: NPO)2099 (Not Given - Provider: Angelina Hoyos RN - Reason: See Provider Order) 0900 (Not Given - Provider: Kemi Luis - Reason: NPO)2099 (Not Given - Provider: Angelina Hoyos RN - Reason: See Provider Order) 0900 (Dose Auto Held)2099 (Dose Auto Held) diazePAM (Valium) injection 2 mg (COMPLETED) 2 mg, intravenous, Administer over 3 Minutes, Once, On Mon06/11/25 at 1130, For 1 dose, Administer over 1-3 minutes, maximum rate is 5 mg per minute. 1115 (Given - Provider: Kemi Luis) diphenhydrAMINE (BENADryl) injection 50 mg (COMPLETED) 50 mg, intravenous, Once, On Mon06/10/25 at 1300, For 1 dose, If giving IV push, max rate of 25 mg/min. 1632 (Given - Provider: Kemi Luis) folic acid (Folvite) tablet 1 mg 1 mg, oral, Daily, First dose on Mon06/06/25 at 0900, On hold since Mon06/06/2025 at 2014 until manually unheld 0900 (Not Given - Provider: Kemi Luis - Reason: NPO) 0900 (Not Given - Provider: Kemi Luis - Reason: NPO) 09 (Dose Auto Held) folic acid 1 mg in sodium chloride 0.9% 50 mL IV 1 mg, intravenous, at 100.4 mL/hr, Administer over 30 Minutes, Every 24 hours, First dose (after last modification) on Mon06/07/25 at 2000 2115 (New Bag - Provider: Angelina Hoyos RN)2147 (Stopped - Provider: Angelina Hoyos RN) 2099 (New Bag - Provider: Angelina Hoyos RN)2202 (Stopped - Provider: Angelina Hoyos RN) 1999 (Due) furosemide (Lasix) tablet 20 mg 20 mg, oral, Daily, First dose on Mon06/06/25 at 0900, On hold since Mon06/05/2025 at 2322 until manually unheld 0900 (Not Given - Provider: Kemi Luis - Reason: NPO) 0900 (Not Given - Provider: Kemi Luis - Reason: NPO) 0900 (Dose Auto Held) HYDROmorphone (Dilaudid) injection 0.2 mg (COMPLETED) 0.2 mg, intravenous, Once, On Mon06/10/25 at 1900, For 1 dose 193 (Given - Provider: Angelina Hoyos RN) iohexol (OMNIPaque) 350 mg iodine/mL solution 70 mL (COMPLETED) 70 mL, intravenous, Once in imaging, Starting on Mon06/10/25 at 1812, For 1 dose 1817 (Given - Provider: Darlene Way - Comment: hand injection, pt premedicated) ipratropium-albuteroL (Duo-Neb) 0.5-2.5 mg/3 mL nebulizer solution 3 mL 3 mL, nebulization, 4 times daily, First dose on Mon06/06/25 at 0700 0611 (Given - Provider: Pinky Wright, SHANAE)1144 (Given - Provider: Pinky Wright RRT)1811 (Given - Provider: Carmine Avila RRT)2145 (Given - Provider: Carmine Avila RRT) 0650 (Given - Provider: Pinky Wright RRT)1120 (Given - Provider: Pinky Wright RRT)1758 (Given - Provider: Carmine Avila RRT)2143 (Given - Provider: Carmine Avila RRT) 0700 (Due)1300 (Due)1700 (Due)2100 (Due) levothyroxine (Synthroid, Levoxyl) tablet 137 mcg 137 mcg, oral, Daily, First dose on Mon06/06/25 at 0900, Enteral feedings are held 1 hour pre and post dose., On hold since Mon06/06/2025 at 2014 until manually unheld 0900 (Not Given - Provider: Kemi Luis - Reason: NPO) 0900 (Not Given - Provider: Kemi Luis - Reason: NPO) 0900 (Dose Auto Held) liothyronine (Cytomel) tablet 5 mcg 5 mcg, oral, Daily, First dose on Mon06/06/25 at 0900, On hold since Mon06/06/2025 at 2013 until manually unheld 0900 (Not Given - Provider: Kemi Luis - Reason: NPO) 0900 (Not Given - Provider: Kemi Luis - Reason: NPO) 0900 (Dose Auto Held) LORazepam (Ativan) tablet 0.5 mg 0.5 mg, oral, 2 times daily, First dose on Mon06/05/25 at 2345, On hold since Mon06/06/2025 at 2013 until manually unheld 0900 (Not Given - Provider: Kemi Luis - Reason: NPO)2100 (Not Given - Provider: Angelina Hoyos RN - Reason: See Provider Order) 0900 (Not Given - Provider: Kemi Luis - Reason: NPO)2100 (Not Given - Provider: Angelina Hoyos RN - Reason: See Provider Order) 0900 (Dose Auto Held - Provider: Sylvia Bonilla MD)2100 (Dose Auto Held - Provider: Sylvia Bonilla MD) magnesium oxide (Mag-Ox) 400 mg (241.3 mg elemental) tablet 1 tablet 1 tablet (400 mg of magnesium oxide), oral, 2 times daily, First dose on Mon06/05/25 at 2345, On hold since Mon06/06/2025 at 2013 until manually unheld 0900 (Not Given - Provider: Kemi Luis - Reason: NPO)2100 (Not Given - Provider: Angelina Hoyos RN - Reason: See Provider Order) 0900 (Not Given - Provider: Kemi Luis - Reason: NPO)2100 (Not Given - Provider: Angelina Hoyos RN - Reason: See Provider Order) 0900 (Dose Auto Held - Provider: Sylvia Bonilla MD)2100 (Dose Auto Held - Provider: Sylvia Bonilla MD) methylPREDNISolone sod succinate (SOLU-Medrol) 40 mg/mL injection 40 mg (COMPLETED) 40 mg, intravenous, Once, On Mon06/10/25 at 1300, For 1 dose 1318 (Given - Provider: Kemi Luis) midodrine (Proamatine) tablet 10 mg 10 mg, oral, 3 times daily (morning, midday, late afternoon), First dose (after last modification) on Mon06/07/25 at 0745, Avoid dosing after the evening meal or within 4 hours of bedtime to prevent supine hypertension unless indicated for vasopressor sparing in the ICU., On hold since Mon06/07/2025 at 1237 until manually unheld 0800 (Not Given - Provider: Kemi Luis - Reason: NPO)1200 (Not Given - Provider: Kemi Luis - Reason: NPO)1700 (Not Given - Provider: Kemi Luis - Reason: NPO) 0800 (Not Given - Provider: Kemi Luis - Reason: NPO)1200 (Not Given - Provider: He Guillory RN - Reason: See Provider Order)1700 (Not Given - Provider: He Guillory RN - Reason: See Provider Order) 0800 (Dose Auto Held)1200 (Dose Auto Held)1700 (Dose Auto Held) multivitamin with minerals 1 tablet 1 tablet, oral, Daily, First dose on Mon06/06/25 at 0900, On hold since Mon06/06/2025 at 2014 until manually unheld 0900 (Not Given - Provider: Kemi Luis - Reason: NPO) 0900 (Not Given - Provider: Kemi Luis - Reason: NPO) 0900 (Dose Auto Held) nystatin (Mycostatin) 100,000 unit/gram powder 1 Application 1 Application, Topical, 2 times daily, First dose on Mon06/10/25 at 2100, Apply to selma-area and under folds. 2300 (Given - Provider: Angelina Hoyos RN) 0831 (Given - Provider: Kemi Luis)2100 (Given - Provider: Angelina Hoyos RN) 899 (Due)2099 (Due) pantoprazole (Protonix) injection 40 mg 40 mg, intravenous, 2 times daily, First dose on Mon06/06/25 at 0930, Reconstitute each 40 mg vial with 10 mL NS to make 4 mg/mL solution. 09 (Given - Provider: Kemi uLis)2114 (Given - Provider: Angelina Hoyos RN) 08 (Given - Provider: Kemi Luis)2099 (Given - Provider: Angelina Hoyos RN) 899 (Due)2099 (Due) piperacillin-tazobactam (Zosyn) 4.5 g in dextrose (iso) IV 100 mL 4.5 g, intravenous, Administer over 0.5 Hours, Every 6 hours, First dose on Mon06/06/25 at 0200, premix bag, Dosing of this medication varies based on severity of illness. Does this patient have sepsis or concern for sepsis (probable or documented infection plus systemic manifestations of infection)? Yes, Suspected Indication (Select all that apply): Urinary Tract Infection, Type of Therapy: Empiric, Type of Urinary Tract Infection: Uncomplicated, Indications: Urinary Tract Infection 0028 (Stopped - Provider: Angelina Hoyos RN)0510 (New Bag - Provider: Angelina Hoyos RN)0557 (Stopped - Provider: Angelina Hoyos RN)1249 (New Bag - Provider: Kemi Luis)1427 (Stopped - Provider: Kemi Luis)1833 (New Bag - Provider: Kemi Luis)1959 (Stopped - Provider: Angelina Hoyos RN)2300 (New Bag - Provider: Angelina Hoyos RN)2337 (Stopped - Provider: Angelina Hoyos RN) 0500 (New Bag - Provider: Aneglina Hoyos RN)0547 (Stopped - Provider: Angelina Hoyos RN)1238 (New Bag - Provider: Kemi Luis)1355 (Stopped - Provider: Kemi Luis)1750 (New Bag - Provider: Kemi Luis)1841 (Stopped - Provider: Kemi Luis)2307 (New Bag - Provider: Angelina Hoyos RN) 0022 (Stopped - Provider: Angelina Hoyos RN)0600 (Due)1200 (Due)1800 (Due) pregabalin (Lyrica) capsule 100 mg 100 mg, oral, 3 times daily, First dose on Mon06/05/25 at 2345, On hold since Mon06/06/2025 at 2014 until manually unheld 0900 (Not Given - Provider: Kemi Luis - Reason: NPO)1500 (Not Given - Provider: Kemi Luis - Reason: NPO)2100 (Not Given - Provider: Angelina Hoyos RN - Reason: See Provider Order) 0900 (Not Given - Provider: Kemi Luis - Reason: NPO)1500 (Not Given - Provider: He Guillory RN - Reason: See Provider Order)2100 (Not Given - Provider: Angelina Hoyos RN - Reason: See Provider Order) 0900 (Dose Auto Held - Provider: Sylvia Bonilla MD)1500 (Dose Auto Held - Provider: Sylvia Bonilla MD)2100 (Dose Auto Held - Provider: Sylvia Bonilla MD) sertraline (Zoloft) tablet 50 mg 50 mg, oral, Daily, First dose on Mon06/06/25 at 0900, On hold since Mon06/06/2025 at 2013 until manually unheld 0900 (Not Given - Provider: Kemi Luis - Reason: NPO) 0900 (Not Given - Provider: Kemi Luis - Reason: NPO) 0900 (Dose Auto Held) thiamine (Vitamin B-1) tablet 100 mg 100 mg, oral, Daily, First dose on Mon06/08/25 at 2235, To start after three days of IV, On hold since Mon06/06/2025 at 2013 until manually unheld 0900 (Not Given - Provider: Kemi Luis - Reason: NPO) 0900 (Not Given - Provider: Kemi Luis - Reason: NPO) 0900 (Dose Auto Held - Provider: Sylvia Bonilla MD) PRN Medication Order 06/10/2025 06/11/2025 06/12/2025 acetaminophen (Tylenol) tablet 975 mg 975 mg, oral, Every 8 hours PRN, pain mild (1-3), first line, fever (temp greater than 38.0 C), first line, Starting on Suki 06/05/25 at 2322, If ordered PRN for pain, nurse is permitted to administer this medication for higher pain scores based on patient preference? Yes alteplase (Cathflo Activase) injection 2 mg 2 mg, intra-catheter, As needed, line care, Starting on Mon06/08/25 at 1443, Via CVAD Removed by: Aspiration Inject into partial/totally occluded catheter lumen for total of 30 to 120 minute dwell time; assess patency at 30 minutes and if not patent, dwell for additional 90 minutes. If still not patent, repeat alteplase 2 mg injected into thrombotic partial or totally occluded lumen for a total of 120 minute dwell time; assess patency at 30 minutes and if not patent, dwell for 90 minutes. If still not patent, notify provider. Dilute each 2 mg vial with 2.2 mL sterile water to give 1 mg/mL final concentration. Swirl gently to mix; do not shake. diazePAM (Valium) injection 10 mg 10 mg, intravenous, Administer over 3 Minutes, Every 2 hour PRN, CIWA score greater than 6 or HR greater than 100 BPM, Starting on Mon06/06/25 at 2024, Administer over 1-3 minutes, maximum rate is 5 mg per minute. 0102 (Given - Provider: Angelina Hoyos RN)0359 (Given - Provider: Angelina Hoyos RN)0712 (Given - Provider: Angelina Hoyos RN)2259 (Given - Provider: Angelina Hoyos RN) 2307 (Given - Provider: Angelina Hoyos RN) ketorolac (Toradol) injection 15 mg 15 mg, intravenous, Every 6 hours PRN, pain moderate (4-6), first line, pain severe (7-10), first line, Starting on Mon06/08/25 at 1052, For 5 days 0359 (Given - Provider: Angelina Hoyos RN)0908 (Given - Provider: Kemi Luis)1632 (Given - Provider: Kemi Luis)2258 (Given - Provider: Angelina Hoyos RN) 0500 (Given - Provider: Angelina Hoyos RN)1116 (Given - Provider: Kemi Luis)1750 (Given - Provider: Kemi Luis) methocarbamol (Robaxin) tablet 500 mg 500 mg, oral, Every 6 hours PRN, muscle spasms, Starting on Mon06/06/25 at 0624 oxygen (O2) therapy inhalation, Continuous - O2/gases, other, Starting on Mon06/08/25 at 0442, Blow by oxymask for over stoma as needed , Device: Venturi Mask, FIO2: 35%, Keep O2 Sat Above: 94% 0003 ([facility] - Provider: Tony Mejia, SHANAE)0200 ([facility] [facility] - Provider: Tony Mejia RRT)0325 ([facility] [facility] [employer] - Provider: Tony Mejia RRT)0611 ([employer] [facility] [facility] [employer] - Provider: Pinky Wright WIND POWER PROJECT MANAGER)1144 ([employer] [facility] [facility] [employer] - Provider: Pinky Wright WIND POWER PROJECT MANAGER)1811 ([employer] [facility] [facility] [employer] - Provider: Carmine Avila RRT)2145 ([employer] [facility] [facility] [employer] - Provider: Carmine Avila RRT) 0650 ([employer] [facility] [facility] [employer] - Provider: Pinky Wright WIND POWER PROJECT MANAGER)1120 ([employer] [facility] [facility] [employer] - Provider: Pinky Wright WIND POWER PROJECT MANAGER)1758 ([employer] [facility] [facility] [employer] - Provider: Carmine Avila WIND POWER PROJECT MANAGER)2143 ([facility] - Provider: Carmine Avila RRT) No Frequency Medication Order 06/10/2025 06/11/2025 06/12/2025 sodium chloride (PF) 0.9% solution - [employer] Override Pull (COMPLETED) Starting on Mon06/10/25 at 0902, For 1 dose, Created by cabinet override 0908 (Given - Provider: Kemi Luis) sodium chloride (PF) 0.9% solution - Omnicell Override Pull (COMPLETED) Starting on Mon06/11/25 at 0825, For 1 dose, Created by cabinet override 08 (Given - Provider: Kemi Luis) sodium chloride (PF) 0.9% solution - Omnicell Override Pull (COMPLETED) Starting on Mon06/11/25 at 2055, For 1 dose, Created by cabinet override 211 (Given - Provider: Angelina Hoyos, DANNI) Scheduled Medication Order 06/20/2025 06/21/2025 06/22/2025 atorvastatin (Lipitor) tablet 20 mg 20 mg, oral, Daily, First dose on Mon06/20/25 at 1745 2047 (Given - Provider: Rosey Hendrix, RN) 0812 (Given - Provider: Karla Pratt, DANNI) 0900 (Due) carvedilol (Coreg) tablet 6.25 mg 6.25 mg, oral, 2 times daily, First dose on Mon06/20/25 at 2100 2044 (Given - Provider: Rosey Hendrix, RN) 08 (Given - Provider: Karla Pratt, RN)2053 (Given - Provider: Aleyda Garcia RN) 0900 (Due)2100 (Due) docusate sodium (Colace) oral liquid 100 mg 100 mg, g-tube, Daily, First dose (after last modification) on Mon06/20/25 at 1845 1844 (Not Given - Provider: He Guillory RN - Reason: NPO) 0800 (Given - Provider: Karla Pratt, DANNI) 0900 (Due) folic acid (Folvite) tablet 1 mg 1 mg, oral, Daily, First dose on Mon06/20/25 at 1745 1844 (Not Given - Provider: He Guillory RN - Reason: NPO) 0800 (Given - Provider: Karla Pratt, RN) 0900 (Due) furosemide (Lasix) injection 40 mg 40 mg, intravenous, Daily, First dose on Mon06/21/25 at 0900 0801 (Given - Provider: Karla Pratt, DANNI) 0900 (Due) heparin (porcine) injection 5,000 Units 5,000 Units, subcutaneous, Every 8 hours, First dose on Mon06/20/25 at 1745 1846 (Not Given - Provider: He Guillory RN - Reason: Other) 0053 (Given - Provider: Rosey Hendrix RN)1058 (Given - Provider: Karla Pratt, RN)1709 (Given - Provider: Karla Pratt, DANNI) 0145 (Due)0945 (Due)1745 (Due) HYDROmorphone (Dilaudid) injection 0.5 mg (COMPLETED) 0.5 mg, intravenous, Once, On Mon06/20/25 at 1045, For 1 dose 1058 (Given - Provider: Dinah Byrne, DANNI) HYDROmorphone (Dilaudid) injection 1 mg (COMPLETED) 1 mg, intravenous, Once, On Mon06/20/25 at 1305, For 1 dose 1337 (Given - Provider: Dinah Byrne, DANNI) insulin lispro injection 0-5 Units 0-5 Units, subcutaneous, 3 times daily before meals, First dose on Mon06/21/25 at 0700, Do not hold when patient is not eating, continue order as scheduled for hyperglycemia management. Insulin Lispro Corrective Scale #1 Hypoglycemia protocol Call LIP unit(s) if Blood Glucose is between 0 - 70 mg/dL 0 unit(s) if Blood glucose is between 71-150 1 unit(s) if Blood glucose is between 151-200 2 unit(s) if Blood glucose is between 201-250 3 unit(s) if Bloodglucose is between 251-300 4 unit(s) if Blood glucose is between 301-350 5 unit(s) if Blood glucose is between 351-400 If blood glucose is greater than 400 mg/dL, give max insulin per sliding scale AND then contact provider. 1116 (Not Given - Provider: Karla Pratt RN - Reason: Contraindicated - Comment: BS 110 = 0 units)1151 (Not Given - Provider: Karla Pratt RN - Reason: Contraindicated - Comment: BS 98 = 0 units)1633 (Not Given - Provider: Karla Pratt RN - Reason: Contraindicated - Comment: BS 89 = 0 units) 0700 (Due)1100 (Due)1600 (Due) ipratropium-albuteroL (Duo-Neb) 0.5-2.5 mg/3 mL nebulizer solution 3 mL 3 mL, nebulization, 4 times daily, First dose on Mon06/20/25 at 1745 1839 (Given - Provider: Jose Alfredo Aguirre RRT)2208 (Given - Provider: Jose Alfredo Aguirre RRT) 0641 (Given - Provider: Pinky Wright, SHANAE)1121 (Given - Provider: Pinky Wright, WIND POWER PROJECT MANAGER)1809 (Given - Provider: Dorie Nolan RRT)2135 (Given - Provider: Dorie Nolan RRT) 0700 (Due)1300 (Due)1700 (Due)2100 (Due) levothyroxine (Synthroid, Levoxyl) tablet 137 mcg 137 mcg, oral, Daily, First dose on Mon06/20/25 at 1745, Enteral feedings are held 1 hour pre and post dose. 1847 (Not Given - Provider: He Guillory RN - Reason: Other) 0800 (Given - Provider: Karla Pratt RN) 0900 (Due) liothyronine (Cytomel) tablet 5 mcg 5 mcg, oral, Daily, First dose on Mon06/20/25 at 1745 1847 (Not Given - Provider: He Guillory RN - Reason: Other) 0800 (Given - Provider: Karla Pratt, DANNI) 0900 (Due) melatonin tablet 6 mg 6 mg, oral, Daily, First dose on 06/21/25 at 2115 2231 (Not Given - Provider: Aleyda Garcia, DANNI - Reason: Patient/family refused - Comment: When she was not able to receive Oxycodone d/t low BP, she stated she did not want it.) 2099 (Due) nystatin (Mycostatin) 100,000 unit/gram powder 1 Application 1 Application, Topical, 2 times daily, First dose on Mon06/20/25 at 2100, Apply to rash 2246 (Given - Provider: Rosey Hendrix RN) 09 (Due)2054 (Given - Provider: Aleyda Garcia, RN) 09 (Due)2099 (Due) ondansetron (Zofran) injection 4 mg (COMPLETED) 4 mg, intravenous, Once, On Mon06/20/25 at 1045, For 1 dose, When administering via IV Push, administer over 3-5 minutes. 1059 (Given - Provider: Dinah Byrne RN) pantoprazole (ProtoNix) EC tablet 40 mg 40 mg, oral, Daily before breakfast, First dose on Mon06/21/25 at 0700, Do not crush, chew, or split. 0800 (Given - Provider: Karla Pratt RN) 0700 (Due) polyethylene glycol (Glycolax, Miralax) packet 17 g 17 g, oral, Daily, First dose on Mon06/20/25 at 1745, Bowel Regimen - for prevention of constipation. 1848 (Not Given - Provider: He Guillory RN - Reason: Other) 0802 (Given - Provider: Karla Pratt, DANNI) 0900 (Due) sertraline (Zoloft) tablet 50 mg 50 mg, oral, Daily, First dose on Mon06/20/25 at 1745 1848 (Not Given - Provider: He Guillory RN - Reason: Other) 0800 (Given - Provider: Karla Pratt, DANNI) 0900 (Due) thiamine (Vitamin B-1) tablet 100 mg 100 mg, oral, Daily, First dose on Mon06/20/25 at 1745 1848 (Not Given - Provider: He Guillory RN - Reason: Other) 0800 (Given - Provider: Karla Pratt, DANNI) 0900 (Due) PRN Medication Order 06/20/2025 06/21/2025 06/22/2025 acetaminophen (Tylenol) tablet 650 mg 650 mg, oral, Every 4 hours PRN, pain mild (1-3), first line, Starting on Mon06/20/25 at 1727, If ordered PRN for pain, nurse is permitted to administer this medication for higher pain scores based on patient preference? Yes 2048 (Given - Provider: Rosey Hendrix RN) 2231 (Not Given - Provider: Aleyda Garcia RN - Reason: Patient/family refused) calcium carbonate (Tums) 500 mg (200 mg elemental) chewable tablet 1 tablet 1 tablet (500 mg of calcium carbonate), oral, 4 times daily PRN, indigestion, heartburn, Starting on Mon06/21/25 at 0845 1057 (Given - Provider: Karla Pratt, DANNI) dextrose 50 % injection 12.5 g 12.5 g, intravenous, Every 15 min PRN, For blood glucose 41 to 70 mg/dL, Starting on Mon06/20/25 at 1827, May repeat until blood glucose level reaches 100 mg/dL or greater. Push 2 - 3 mL/minute if patient has secure IV access. 1931 (Given - Provider: Rosey Hendrix RN) dextrose 50 % injection 25 g 25 g, intravenous, Every 15 min PRN, For blood glucose less than or equal to 40 mg/dL, Starting on Mon06/20/25 at 1827, May repeat until blood glucose level reaches 100 mg/dL or greater. Push 2 - 3 mL/minute if patient has secure IV access. glucagon (Glucagen) injection 1 mg 1 mg, intramuscular, Every 15 min PRN, blood glucose less than or equal to 40 mg/dL - see comments, For blood glucose less than or equal to 40 mg/dL and no IV access, Starting on Mon06/20/25 at 1827, Give until blood glucose is 100 mg/dL or greater. If patient DOES NOT HAVE secure IV access & patient is unconscious, NPO or is unable to eat or drink. glucagon (Glucagen) injection 1 mg 1 mg, intramuscular, Every 15 min PRN, blood glucose 41 to 70 mg/dL - see comments, For blood glucose 41 to 70 mg/dL and no IV access, Starting on Mon06/20/25 at 1827, Give until blood glucose is 100 mg/dL or greater. If patient DOES NOT HAVE secure IV access & patient is unconscious, NPO or is unable to eat or drink. midazolam (Versed) injection 1 mg (COMPLETED) 1 mg, intravenous, Once as needed, sedation, Starting on Mon06/22/25 at 0009, For 1 dose 0047 (Given - Provider: Aleyda Garcia, DANNI) ondansetron (Zofran) injection 4 mg(Linked Group 1) 4 mg, intravenous, Every 8 hours PRN, nausea/vomiting, first line, Starting on Mon06/20/25 at 1727, Administer IV if patient unable to take oral tablet. When administering via IV Push, administer over 3-5 minutes. ondansetron ODT (Zofran-ODT) disintegrating tablet 4 mg(Linked Group 1) 4 mg, oral, Every 8 hours PRN, nausea/vomiting, first line, Starting on Mon06/20/25 at 1727, 1st Line. Patient should allow tablet to dissolve on tongue. Do not remove from blister pack until just before administering. If inadequate response within 60 minutes, proceed to next-line agent for same PRN reason or contact provider if no further options ordered. oxyCODONE (Roxicodone) solution 5 mg 5 mg, g-tube, Every 6 hours PRN, pain severe (7-10), first line, Starting on Mon06/20/25 at 1727, If ordered PRN for pain, nurse is permitted to administer this medication for higher pain scores based on patient preference? Yes 1914 (Given - Provider: Amy Carrasco RN) 1057 (Given - Provider: Karla Pratt, DANNI)1709 (Given - Provider: Karla Pratt, RN)2230 (Canceled Entry - Provider: Aleyda Garcia RN - Comment: Patient's BP 80/56 MAP 64, Dr. Bonilla notified)2449 (Given - Provider: Aleyda Garcia, DANNI) oxygen (O2) therapy 1 Dose, inhalation, Continuous - O2/gases, oxygen, Starting on Suki 06/19/25 at 1855, Device: Venturi Mask, FIO2: 50%, Keep O2 Sat Above: 90% 0050 (Start - Provider: Susanne Tripathi, WIND POWER PROJECT MANAGER)0623 ([facility] [employer] - Provider: Laura Reyes IN STORE REPRESENTATIVE)1333 ([employer] [facility] [employer] - Provider: Marija Thompson, WIND POWER PROJECT MANAGER)1839 (Start - Provider: Jose Alfredo Aguirre, WIND POWER PROJECT MANAGER)2208 (Start - Provider: Jose Alfredo Aguirre, WIND POWER PROJECT MANAGER) 0641 ([employer] [facility] [employer] - Provider: Pinky Wright, WIND POWER PROJECT MANAGER)1121 ([employer] [facility] [employer] - Provider: Pinky Wright, WIND POWER PROJECT MANAGER)1809 ([employer] [facility] [employer] - Provider: Dorie Nolan, WIND POWER PROJECT MANAGER)2135 ([employer] [facility] [employer] - Provider: Dorie Nolan, WIND POWER PROJECT MANAGER) 0020 ([employer] [facility] [facility] [employer] - Provider: Dorie Nolan WIND POWER PROJECT MANAGER) Linked Groups Order Group 1: ondansetron ODT (Zofran-ODT) disintegrating tablet 4 mgJump to med 4 mg, oral, Every 8 hours PRN, nausea/vomiting, first line, Starting on Mon06/20/25 at 1727, 1st Line. Patient should allow tablet to dissolve on tongue. Do not remove from blister pack until just before administering. If inadequate response within 60 minutes, proceed to next-line agent for same PRN reason or contact provider if no further options ordered. Or ondansetron (Zofran) injection 4 mgJump to med 4 mg, intravenous, Every 8 hours PRN, nausea/vomiting, first line, Starting on Mon06/20/25 at 1727, Administer IV if patient unable to take oral tablet. When administering via IV Push, administer over 3-5 minutes. Scheduled Medication Order 06/15/2025 06/16/2025 06/17/2025 acetaminophen (Tylenol) oral liquid 650 mg 650 mg, g-tube, Every 6 hours, First dose on Mon06/16/25 at 1100, Give oral liquid per feeding tube if present, or if patient prefers liquid over tablets. 1141 (Given - Provider: Luli Bocanegra RN)1628 (Given - Provider: Luli Bocanegra RN)2321 (Given - Provider: Adenike Walker RN) 0518 (Given - Provider: Adenike Walker RN)1123 (Given - Provider: Luiz Lr RN)1738 (Given - Provider: Luiz Lr RN)2300 (Due) carvedilol (Coreg) tablet 6.25 mg 6.25 mg, g-tube, 2 times daily, First dose (after last modification) on Mon06/12/25 at 2100 0900 (Not Given - Provider: Chris Woo RN - Reason: Other)1107 (Unheld by provider - Provider: Remi Jenkins, BUCKLER AND LACER-EMBALMER APPRENTICE)2057 (Given - Provider: Mariluz Edge RN) 0857 (Given - Provider: Luli Bocanegra RN)214 (Given - Provider: Adenike Walker RN) 0841 (Given - Provider: Luiz Lr RN)2100 (Due) docusate sodium (Colace) oral liquid 100 mg 100 mg, g-tube, 2 times daily, First dose on Mon06/16/25 at 1100 1142 (Not Given - Provider: Luli Bocanegra RN - Reason: Other)213 (Not Given - Provider: Adenike Walker RN - Reason: Patient/family refused) 0805 (Not Given - Provider: Luiz Lr RN - Reason: Contraindicated)2100 (Due) folic acid (Folvite) tablet 1 mg 1 mg, g-tube, Daily, First dose (after last modification) on Mon06/13/25 at 0900 0943 (Given - Provider: Chris Woo RN) 0858 (Given - Provider: Luli Bocanegra RN) 0841 (Given - Provider: Luiz Lr RN) furosemide (Lasix) injection 20 mg (COMPLETED) 20 mg, intravenous, Once, On Mon06/15/25 at 1715, For 1 dose 1658 (Given - Provider: Chris Woo RN) heparin (porcine) injection 5,000 Units 5,000 Units, subcutaneous, Every 8 hours, First dose (after last modification) on Mon06/12/25 at 2000 0331 (Given - Provider: Mariluz Edge RN)1241 (Given - Provider: Chris Woo RN)205 (Given - Provider: Mariluz Edge, DANNI) 0420 (Given - Provider: Mariluz Edge RN)1141 (Given - Provider: Luli Bocanegra RN)2147 (Given - Provider: Adenike Walker RN - Comment: Workflow) 0517 (Given - Provider: Adenike Walker RN)0623 (Not Given - Provider: Adenike Walker RN - Reason: Other - Comment: dose scheduled and given at 0600.)1424 (Given - Provider: Luiz Lr, DANNI)2200 (Due - Provider: Kaela Odom, JaD) HYDROmorphone (Dilaudid) injection 0.4 mg (COMPLETED) 0.4 mg, intravenous, Once, On Mon06/16/25 at 2130, For 1 dose 2110 (Given - Provider: Kyrie James RN) insulin lispro injection 0-5 Units 0-5 Units, subcutaneous, Every 4 hours, First dose (after last modification) on Mon06/12/25 at 1615, Insulin Lispro Corrective Scale #1 Hypoglycemia protocol Call LIP unit(s) if Blood Glucose is between 0 - 70 mg/dL 0 unit(s) if Blood glucose is between 71-150 1 unit(s) if Blood glucose is between 151-200 2 unit(s) if Blood glucose is between 201-250 3 unit(s) if Blood glucose is between 251-300 4 unit(s) if Blood glucose is between 301-350 5 unit(s) if Blood glucose is between 351-400 If blood glucose is greater than 400 mg/dL, give max insulin per sliding scale AND then contact provider. 0050 (Not Given - Provider: Mariluz Edge RN - Reason: Order parameters not met)0451 (Not Given - Provider: Mariluz Edge RN - Reason: Order parameters not met)0821 (Not Given - Provider: Chris Woo RN - Reason: Order parameters not met)1252 (Not Given - Provider: Chris Woo RN - Reason: Order parameters not met)1655 (Not Given - Provider: Chris Woo RN - Reason: Order parameters not met)2053 (Not Given - Provider: Mariluz Edge RN - Reason: Order parameters not met) 0023 (Not Given - Provider: Mariluz Edge RN - Reason: Order parameters not met)0413 (Not Given - Provider: Mariluz Edge RN - Reason: Order parameters not met)0849 (Not Given - Provider: Luli Bocanegra RN - Reason: Order parameters not met)1141 (Not Given - Provider: Luli Bocanegra RN - Reason: Order parameters not met)1536 (Not Given - Provider: Luli Bocanegra RN - Reason: Order parameters not met)2152 (Not Given - Provider: Adenike Walker RN - Reason: Order parameters not met)2333 (Not Given - Provider: Adenike Walker RN - Reason: Order parameters not met) 0342 (Not Given - Provider: Adenike Walker RN - Reason: Order parameters not met)0806 (Not Given - Provider: Luiz Lr RN - Reason: Contraindicated)1243 (Not Given - Provider: Luiz Lr RN - Reason: Contraindicated)1631 (Not Given - Provider: Luiz Lr RN - Reason: Contraindicated)2014 (Due) levothyroxine (Synthroid, Levoxyl) tablet 137.5 mcg (CANCELED) 137.5 mcg, g-tube, Daily, First dose (after last modification) on Mon06/15/25 at 0600, Please make sure to hold tube feeds 1 hour before and after giving levothyroxine Enteral feedings are held 1 hour pre and post dose. 0534 (Given - Provider: Mariluz Edge RN) 0547 (Given - Provider: Mariluz Edge RN) levothyroxine (Synthroid, Levoxyl) tablet 150 mcg 150 mcg, g-tube, Daily, First dose (after last modification) on Mon06/17/25 at 0600, Please make sure to hold tube feeds 1 hour before and after giving levothyroxine Enteral feedings are held 1 hour pre and post dose. 0518 (Given - Provider: Adenike Walker RN) magnesium sulfate 2 g in sterile water for injection 50 mL (COMPLETED) 2 g, intravenous, at 25 mL/hr, Administer over 2 Hours, Once, On Mon06/17/25 at 0900, For 1 dose 0925 (New Bag - Provider: Luiz Lr RN)1124 (Stopped - Provider: Luiz Lr RN) magnesium sulfate 4 g in sterile water for injection 100 mL (COMPLETED) 4 g, intravenous, at 25 mL/hr, Administer over 4 Hours, Once, On 06/15/25 at 0930, For 1 dose 0941 (New Bag - Provider: Chris Woo RN)1341 (Stopped - Provider: Chris Woo RN) metoclopramide (Reglan) injection 10 mg 10 mg, intravenous, Every 8 hours, First dose on 06/14/25 at 1045 0532 (Given - Provider: Mariluz Edge RN)1241 (Given - Provider: Chris Woo RN)2101 (Given - Provider: Mariluz Edge RN) 0547 (Given - Provider: Mariluz Edge RN)1338 (Given - Provider: Luli Bocanegra RN)2146 (Given - Provider: Adenike Walker RN) 0518 (Given - Provider: Adenike Walker RN)1424 (Given - Provider: Luiz Lr, DANNI)2200 (Due - Provider: Kaela Odom, JaD) metoprolol tartrate (Lopressor) injection 5 mg (CANCELED) 5 mg, intravenous, Every 6 hours, First dose on 06/14/25 at 1545, Hold for SBP <100, HR <60 0532 (Given - Provider: Mariluz Edge RN) multivitamin with minerals 1 tablet 1 tablet, oral, Daily, First dose on [place]uki 06/12/25 at 0900 0943 (Given - Provider: Chris Woo RN) 0857 (Given - Provider: Luli Bocanegra RN) 0841 (Given - Provider: Luiz Lr RN) pantoprazole (Protonix) injection 40 mg 40 mg, intravenous, Daily, First dose (after last modification) on Mon06/13/25 at 0900, Reconstitute each 40 mg vial with 10 mL NS to make 4 mg/mL solution. 0941 (Given - Provider: Chris Woo RN) 0858 (Given - Provider: Luli Bocanegra RN) 0841 (Given - Provider: Luiz Lr RN) piperacillin-tazobactam (Zosyn) 4.5 g in dextrose (iso) IV 100 mL (COMPLETED) 4.5 g, intravenous, Administer over 0.5 Hours, Every 6 hours, First dose (after last modification) on Suki 06/12/25 at 1700, For 11 doses, premix bag, Dosing of this medication varies based on severity of illness. Does this patient have sepsis or concern for sepsis (probable or documented infection plus systemic manifestations of infection)? Yes, Suspected Indication (Select all that apply): Pneumonia, Type of Therapy: Empiric, Indications: Pneumonia 0531 (New Bag - Provider: Mariluz Edge RN)0552 (Stopped - Provider: Mariluz Edge RN) potassium chloride (Klor-Con) packet 40 mEq (COMPLETED) 40 mEq, g-tube, Once, On 06/15/25 at 0845, For 1 dose, Dissolve each packet in 4 ounces of water = 5 mEq per 1 oz fluid. 0943 (Given - Provider: Chris Woo RN) potassium chloride (Klor-Con) packet 40 mEq (COMPLETED) 40 mEq, g-tube, Once, On 06/17/25 at 0900, For 1 dose, Dissolve each packet in 4 ounces of water = 5 mEq per 1 oz fluid. 0844 (Given - Provider: Luiz Lr RN) sertraline (Zoloft) tablet 50 mg 50 mg, g-tube, Daily, First dose on 06/16/25 at 1045 1537 (Given - Provider: Luli Bocanegra RN) 0841 (Given - Provider: Luiz Lr, DANNI) thiamine (Vitamin B-1) tablet 100 mg 100 mg, oral, Daily, First dose on 06/15/25 at 0330, To start after three days of IV 0944 (Given - Provider: Chris Woo RN) 0857 (Given - Provider: Luli Bocanegra RN) 0841 (Given - Provider: Luiz Lr RN) Continuous Medication Order 06/15/2025 06/16/2025 06/17/2025 dextrose 5%-0.45 % sodium chloride infusion () 75 mL/hr, intravenous, Continuous, Starting on 06/14/25 at 1045, For 1 day 0120 (New Bag - Provider: Mariluz Edge RN)1131 (Stopped - Provider: Chris Woo RN - Comment: [Order ends at this time. Document the following action when infusion is complete: Stopped]) dextrose 5%-0.45 % sodium chloride infusion (CANCELED) 75 mL/hr, intravenous, Continuous, Starting on [place] 06/15/25 at 1130, For 5 days 1246 (New Bag - Provider: Chris Woo RN) 0107 (New Bag - Provider: Mariluz Edge, DANNI)1241 (Rate/Dose Verify - Provider: Luli Bocanegra RN) 0349 (New Bag - Provider: Adenike Walker RN)0841 (Stopped - Provider: Luiz Lr RN - Comment: [Order ends at this time. Document the following action when infusion is complete: Stopped]) PRN Medication Order 06/15/2025 06/16/2025 06/17/2025 alteplase (Cathflo Activase) injection 2 mg 2 mg, intra-catheter, As needed, line care, Starting on [place] 06/12/25 at 0516, Via CVAD Removed by: Aspiration Inject into partial/totally occluded catheter lumen for total of 30 to 120 minute dwell time; assess patency at 30 minutes and if not patent, dwell for additional 90 minutes. If still not patent, repeat alteplase 2 mg injected into thrombotic partial or totally occluded lumen for a total of 120 minute dwell time; assess patency at 30 minutes and if not patent, dwell for 90 minutes. If still not patent, notify provider. Dilute each 2 mg vial with 2.2 mL sterile water to give 1 mg/mL final concentration. Swirl gently to mix; do not shake. dextrose 50 % injection 12.5 g 12.5 g, intravenous, Every 15 min PRN, For blood glucose 41 to 70 mg/dL, Starting on S[place] 06/12/25 at 0349, May repeat until blood glucose level reaches 100 mg/dL or greater. Push 2 - 3 mL/minute if patient has secure IV access. dextrose 50 % injection 25 g 25 g, intravenous, Every 15 min PRN, For blood glucose less than or equal to 40 mg/dL, Starting on [place] 06/12/25 at 0349, May repeat until blood glucose level reaches 100 mg/dL or greater. Push 2 - 3 mL/minute if patient has secure IV access. glucagon (Glucagen) injection 1 mg 1 mg, intramuscular, Every 15 min PRN, blood glucose less than or equal to 40 mg/dL - see comments, For blood glucose less than or equal to 40 mg/dL and no IV access, Starting on [place] 06/12/25 at 0349, Give until blood glucose is 100 mg/dL or greater. If patient DOES NOT HAVE secure IV access & patient is unconscious, NPO or is unable to eat or drink. glucagon (Glucagen) injection 1 mg 1 mg, intramuscular, Every 15 min PRN, blood glucose 41 to 70 mg/dL - see comments, For blood glucose 41 to 70 mg/dL and no IV access, Starting on S[place] 06/12/25 at 0349, Give until blood glucose is 100 mg/dL or greater. If patient DOES NOT HAVE secure IV access & patient is unconscious, NPO or is unable to eat or drink. HYDROmorphone (Dilaudid) injection 0.2 mg (CANCELED) 0.2 mg, intravenous, Every 2 hour PRN, pain breakthrough, Starting on 06/14/25 at 1453 0027 (Given - Provider: Mariluz Edge RN)0331 (Given - Provider: Mariluz Edge RN)0531 (Given - Provider: Mariluz Edge RN)1241 (Given - Provider: Chris Woo RN)1630 (Given - Provider: Chris Woo RN)2058 (Given - Provider: Mariluz Edge RN) 0110 (Given - Provider: Mariluz Edge RN)0413 (Given - Provider: Mariluz Edge RN) oxyCODONE (Roxicodone) solution 10 mg 10 mg, oral, Every 4 hours PRN, pain severe (7-10), first line, Starting on 06/15/25 at 2117, If ordered PRN for pain, nurse is permitted to administer this medication for higher pain scores based on patient preference? Yes 2206 (Given - Provider: Mariluz Edge RN) 0413 (Given - Provider: Mariluz Edge RN)0902 (Given - Provider: Luli Bocanegra RN)1338 (Given - Provider: Luli Bocanegra RN)1742 (Given - Provider: Luli Bocanegra RN)2322 (Given - Provider: Adenike Walker, RN) 0334 (Given - Provider: Adenike Walker RN)0857 (Given - Provider: Luiz Lr, DANNI)1738 (Given - Provider: Luiz Lr, DANNI) oxyCODONE (Roxicodone) solution 5 mg 5 mg, g-tube, Every 4 hours PRN, pain moderate (4-6), first line, Starting on Mon06/15/25 at 2117, If ordered PRN for pain, nurse is permitted to administer this medication for higher pain scores based on patient preference? Yes oxygen (O2) therapy 1 Dose, inhalation, Continuous - O2/gases, oxygen, Starting on [place] 06/12/25 at 0326, Device: Trach mask, FIO2: 28%, Keep O2 Sat Above: 92% Scheduled Medication Order 06/24/2025 06/25/2025 06/26/2025 atorvastatin (Lipitor) tablet 20 mg 20 mg, g-tube, Nightly, First dose on Mon06/22/25 at 2100 2010 (Given - Provider: Denisa Brown, DANNI) 2015 (Given - Provider: Henrietta Cunningham, DANNI) 2099 (Due) enoxaparin (Lovenox) syringe 40 mg 40 mg, subcutaneous, Daily, First dose on Mon06/24/25 at 1000 1009 (Given - Provider: Kera Vanessa RN) 0801 (Given - Provider: Kera Vanessa RN) 0850 (Given - Provider: Maylin Caceres RN) esomeprazole (NexIUM) suspension 40 mg 40 mg, g-tube, Daily before breakfast, First dose on Mon06/24/25 at 0830, Use esomeprazole suspension if patient cannot take meds orally but has feeding tube. 0915 (Given - Provider: Kera Vanessa RN) 0607 (Given - Provider: Denisa Brown RN) 0515 (Given - Provider: Henrietta Cunningham RN - Comment: [facility]) folic acid (Folvite) tablet 1 mg 1 mg, g-tube, Daily, First dose on Mon06/22/25 at 0900 0910 (Given - Provider: Kera Vanessa RN) 0801 (Given - Provider: Kera Vanessa RN) 0850 (Given - Provider: Maylin Caceres RN) insulin lispro injection 0-5 Units 0-5 Units, subcutaneous, 3 times daily before meals, First dose on 06/22/25 at 0700, Do not hold when patient is not eating, continue order as scheduled for hyperglycemia management. Insulin Lispro Corrective Scale #1 Hypoglycemia protocol Call LIP unit(s) if Blood Glucose is between 0 - 70 mg/dL 0 unit(s) if Blood glucose is between 71-150 1 unit(s) if Blood glucose is between 151-200 2 unit(s) if Blood glucose is between 201-250 3 unit(s) if Bloodglucose is between 251-300 4 unit(s) if Blood glucose is between 301-350 5 unit(s) if Blood glucose is between 351-400 If blood glucose is greater than 400 mg/dL, give max insulin per sliding scale AND then contact provider. 0805 (Not Given - Provider: Kera Vanessa RN - Reason: Order parameters not met)1218 (Not Given - Provider: Kera Vanessa RN - Reason: Order parameters not met)1655 (Not Given - Provider: Kera Vanessa RN - Reason: Order parameters not met) 0723 (Not Given - Provider: Kera Vanessa RN - Reason: Order parameters not met)1224 (Not Given - Provider: Kera Vanessa RN - Reason: Order parameters not met)1819 (Not Given - Provider: Kera Vanessa RN - Reason: Order parameters not met) 0850 (Not Given - Provider: Maylin Caceres RN - Reason: Order parameters not met)1314 (Not Given - Provider: Maylin Caceres RN - Reason: Order parameters not met)1600 (Due) levothyroxine (Synthroid, Levoxyl) tablet 137 mcg 137 mcg, g-tube, Daily, First dose on 06/22/25 at 0600, Enteral feedings are held 1 hour pre and post dose. 0541 (Given - Provider: Henrietta Cunningham RN) 0607 (Given - Provider: Denisa Brown RN) 0514 (Given - Provider: Henrietta Cunningham RN) liothyronine (Cytomel) tablet 5 mcg 5 mcg, g-tube, Daily, First dose on 06/22/25 at 0900 0541 (Given - Provider: Henrietta Cunningham RN) 0607 (Given - Provider: Denisa Brown RN) 0514 (Given - Provider: Henrietta Cunningham RN) perflutren lipid microspheres (Definity) injection 0.5-10 mL of dilution 0.5-10 mL of dilution, intravenous, Once in imaging, Starting on 06/22/25 at 0350, For 1 dose, Contrast - for use by imaging provider only. Prior to administration, Definity product must be activated. First, bring vial to room temperature. Then, shake vial for 45 seconds. Do not use if the 45 second activation cycle has not been completed. Following activation, the product will appear as a milky white suspension and may be used immediately. If not used within 5 minutes of activation, re-suspend by inverting and shaking the vial for 10 seconds. Discard unused product. Administration: Dilute 1.3 mL of activated DEFINITY with 8.7 mL of normal saline in a 10 mL syringe. Inject 0.5 mL of diluted DEFINITY when notified the images/film are unclear to enhance view of Left Ventricular borders. Repeat 0.5 mL of DEFINITY until clear images are obtained, not to exceed 10 mLs. Once images are obtained or limit of medication is reached, flush line with 10 mL of Normal Saline. sennosides (Senokot) tablet 8.6 mg 8.6 mg (1 tablet), oral, Nightly, First dose on 06/22/25 at 2100 2010 (Given - Provider: Denisa Brown RN) 2015 (Not Given - Provider: Henrietta Cunningham RN - Reason: Contraindicated - Comment: diarrhea) 2099 (Due) sertraline (Zoloft) tablet 50 mg 50 mg, g-tube, Daily, First dose on 06/22/25 at 0900 0910 (Given - Provider: Kera Vanessa RN) 0801 (Given - Provider: Kera Vanessa RN) 0850 (Given - Provider: Maylin Caceres RN) sulfur hexafluoride microsphr (Lumason) injection 24.28 mg 24.28 mg (2 mL), intravenous, Once in imaging, Starting on 06/22/25 at 0350, For 1 dose, Follow administration with 5 mL NaCL 0.9% injection. thiamine (Vitamin B-1) tablet 100 mg 100 mg, g-tube, Daily, First dose on 06/22/25 at 0900 0910 (Given - Provider: Kera Vanessa RN) 0801 (Given - Provider: Kera Vanessa RN) 0850 (Given - Provider: Maylin Caceres RN) PRN Medication Order 06/24/2025 06/25/2025 06/26/2025 acetaminophen (Tylenol) tablet 650 mg 650 mg, g-tube, Every 4 hours PRN, pain mild (1-3), first line, Starting on 06/22/25 at 0350, If ordered PRN for pain, nurse is permitted to administer this medication for higher pain scores based on patient preference? Yes 152 (Given - Provider: Kera Vanessa RN)2013 (Given - Provider: Denisa Brown RN) 0738 (Given - Provider: Kera Vanessa RN) dextrose 50 % injection 12.5 g 12.5 g, intravenous, Every 15 min PRN, For blood glucose 41 to 70 mg/dL, Starting on 06/22/25 at 2244, May repeat until blood glucose level reaches 100 mg/dL or greater. Push 2 - 3 mL/minute if patient has secure IV access. dextrose 50 % injection 25 g 25 g, intravenous, Every 15 min PRN, For blood glucose less than or equal to 40 mg/dL, Starting on 06/22/25 at 2244, May repeat until blood glucose level reaches 100 mg/dL or greater. Push 2 - 3 mL/minute if patient has secure IV access. glucagon (Glucagen) injection 1 mg 1 mg, intramuscular, Every 15 min PRN, blood glucose less than or equal to 40 mg/dL - see comments, For blood glucose less than or equal to 40 mg/dL and no IV access, Starting on 06/22/25 at 2244, Give until blood glucose is 100 mg/dL or greater. If patient DOES NOT HAVE secure IV access & patient is unconscious, NPO or is unable to eat or drink. glucagon (Glucagen) injection 1 mg 1 mg, intramuscular, Every 15 min PRN, blood glucose 41 to 70 mg/dL - see comments, For blood glucose 41 to 70 mg/dL and no IV access, Starting on Mon06/22/25 at 2244, Give until blood glucose is 100 mg/dL or greater. If patient DOES NOT HAVE secure IV access & patient is unconscious, NPO or is unable to eat or drink. ipratropium-albuteroL (Duo-Neb) 0.5-2.5 mg/3 mL nebulizer solution 3 mL 3 mL, nebulization, 4 times daily PRN, shortness of breath, Starting on Mon06/22/25 at 0350 0347 (Given - Provider: Mike Slaughter, SHANAE) oxyCODONE (Roxicodone) solution 5 mg 5 mg, g-tube, Every 6 hours PRN, pain severe (7-10), second line, Starting on Mon06/22/25 at 0350, If ordered PRN for pain, nurse is permitted to administer this medication for higher pain scores based on patient preference? Yes 0547 (Given - Provider: Henrietta Cunningham RN)1147 (Given - Provider: Kera Vanessa RN)1751 (Given - Provider: Kera Vanessa RN) 0305 (Given - Provider: Denisa Brown RN)1033 (Given - Provider: Kera Vanessa, DANNI)1629 (Given - Provider: Kera Vanessa, DANNI)2325 (Given - Provider: Henrietta Cunningham, DANNI) 0514 (Given - Provider: Henrietta Cunningham, DANNI)1125 (Given - Provider: Maylin Caceres RN) oxygen (O2) therapy 1 Dose, inhalation, Continuous - O2/gases, oxygen, Starting on Mon06/22/25 at 0607, Device: Venturi Mask, FIO2: 35, Keep O2 Sat Above: 92% 0902 (Start - Provider: Dawit Olmstead, SHANAE) 1000 (Start - Provider: Kera Vanessa RN) 0109 ([employer] - Provider: Nayla Walls, [employer]) Scheduled Medication Order 07/14/2025 07/15/2025 07/16/2025 heparin (porcine) injection 5,000 Units (COMPLETED) 5,000 Units, subcutaneous, Once, On Mon07/16/25 at 1615, For 1 dose, Preprocedure, Indications: deep vein thrombosis prevention 1620 (Given - Provid er: Noris Lopez RN) lidocaine (Xylocaine) 10 mg/mL (1 %) injection 0.1 mL 0.1 mL, subcutaneous, Once, On Mon07/16/25 at 1815, For 1 dose, Recovery (only), To be used for IV insertion ONLY 1815 (Not Given - Pr ovider: Lanie Forbes RN - Reason: Other) midazolam (Versed) injection 1 mg (COMPLETED) 1 mg, intravenous, Once, On Mon07/16/25 at 1630, For 1 dose, Preprocedure 1613 (Given - Provid er: Noris Lopez RN) Continuous Medication Order 07/14/2025 07/15/2025 07/16/2025 lactated Ringer's infusion 50 mL/hr, intravenous, Continuous, Starting on Mon07/16/25 at 1815, For 4 hours, Recovery (only) 1815 (Continued from OR - Provider: Lanie Forbes RN)2214 (Due: Order Ending - Provider: Lanie Forbes RN - Comment: [Order ends at this time. Document the following action when infusion is complete: Stopped]) PRN Medication Order 07/14/2025 07/15/2025 07/16/2025 droperidol (Inapsine) injection 0.625 mg 0.625 mg, intravenous, Once as needed, nausea/vomiting, second line, Starting on Mon07/16/25 at 1749, For 1 dose, Recovery (only), Monitor QTc while on therapy (2 lead monitoring) HYDROmorphone (Dilaudid) injection 0.5 mg 0.5 mg, intravenous, Every 5 min PRN, pain severe (7-10), first line, Starting on Mon07/16/25 at 1749, Recovery (only), Max total of 4 mg regardless of dose. 185 (Given - Provid er: Gabriela Montero RN) HYDROmorphone PF (Dilaudid) injection 0.2 mg 0.2 mg, intravenous, Every 5 min PRN, pain moderate (4-6), first line, Starting on Mon07/16/25 at 1749, Recovery (only), Max total of 4 mg regardless of dose. meperidine PF (Demerol) injection 12.5 mg 12.5 mg, intravenous, Every 10 min PRN, shivering, Starting on Mon07/16/25 at 1749, Recovery (only) ondansetron (Zofran) injection 4 mg 4 mg, intravenous, Once as needed, nausea/vomiting, first line, Starting on Mon07/16/25 at 1749, For 1 dose, Recovery (only), When administering via IV Push, administer over 3-5 minutes. oxyCODONE (Roxicodone) immediate release tablet 5 mg 5 mg, oral, Every 4 hours PRN, pain mild (1-3), first line, Starting on Mon07/16/25 at 1749, Recovery (only), When able to take oral medications., If ordered PRN for pain, nurse is permitted to administer this medication for higher pain scores based on patient preference? Yes sodium chloride 0.9 % irrigation solution (CANCELED) As needed, Starting on Mon07/16/25 at 1649, Intraprocedure 1649 (Given - Provid er: Huma Thomas DO) sterile water irrigation solution (CANCELED) As needed, Starting on Mon07/16/25 at 1650, Intraprocedure 1650 (Given - Provid er: Huma Thomas DO - Comment: SCOPE) surgical lubricant gel (CANCELED) As needed, Starting on Mon07/16/25 at 1650, Intraprocedure 1650 (Given - Provid er: Huma Thomas DO - Comment: GASTROSCOPE) FOR RECORDS PERTAINING TO PATIENTS WHO ARE OR HAVE BEEN ENROLLED IN A CHEMICAL DEPENDENCY/SUBSTANCEABUSE PROGRAM, SOME INFORMATION MAY BE OMITTED. This clinical summary was aggregated from multiple sources. Caution should be exercised in using it in the provision of clinical care. This summary normalizes information from multiple sources, and as a consequence, information in this document may materially change the coding, format and clinical context of patient data. In addition, data may be omitted in some cases. CLINICAL DECISIONS SHOULD BE BASED ON THE PRIMARY CLINICAL RECORDS. [employer] provides no warranty or guarantee of the accuracy or completeness of information in this document.
== END 2025-11-07 20:45 | disposition home or self-care (01) ==
LOC: ED 20:34
PROVIDERS: Emergency Provider Emergency Medicine; PCP Nurse Practitioner Family; Visit Provider Emergency Medicine
DX: K94.29 Other complications of gastrostomy (principal); C32.9 Malignant neoplasm of larynx, unspecified; J44.9 Chronic obstructive pulmonary disease, unspecified; K59.00 Constipation, unspecified; E66.9 Obesity, unspecified; N18.9 Chronic kidney disease, unspecified; I12.9 Hypertensive chronic kidney disease with stage 1 through stage 4 chronic kidney disease, or unspecified chronic kidney disease; E03.9 Hypothyroidism, unspecified; E78.5 Hyperlipidemia, unspecified; K21.9 Gastro-esophageal reflux disease without esophagitis; F41.9 Anxiety disorder, unspecified; G25.81 Restless legs syndrome; Z90.49 Acquired absence of other specified parts of digestive tract; Z79.890 Hormone replacement therapy; Z79.899 Other long term (current) drug therapy; Z87.891 Personal history of nicotine dependence
CPT/HCPCS: 99285